=== PATIENT | male | born 1945 | race Two or more races ===

== ENCOUNTER 2017-11-18 22:22 | Inpatient (IN) | payer MEDICAID, MEDICARE ==
[~2017-11-18] VITALS: Ht 162.6 cm; Wt 90.7 kg
[~2017-11-18 22:22] MED LIST: ASPIR 8181 MG GT; ASPIR 8181 MG ORAL; AZACTAM1 GM IVPB; BISACODYL10 M1 RC; CELEXA10 MG GT; COLACE100 MG/10 GT; CRANBERRY450 M4 GT; DUONEB 0.5-3(2.53 ML HHN; FEOSOL325 MG GT; FERROUS SULFAT140 MG GT; FLEET ENEMA133 M1 RC; FLORANEX TABLE1 EAC1 GT; HEPARIN2000 UNIT/ SUBQ; METOCLOPRAM5 MG/1 M1 GT; MILK OF MA400 MG/51 GT; MIRALAX17 GM ORAL; MOM30 ML ORAL; MORPHINE 44 MG/1 ML IV; NEXIUM40 MG GT; PERIDEX 0.12% O16 OZ MT; RANITIDINE HCL150 MG ORAL; ROBITUSSIN DM5 ML GT; TENORMIN50 MG ORAL; TYLENOL650 MG/20. GT; VITAMIN C500 M1 GT; VITAMIN D-40400 UNIT ORAL; ZOCOR40 MG GT; ZYVOX600 MG ORAL; [UNRECOGNIZED DRUG - OTHER] IV; lorazepam IV
[2017-11-18] MEDS ORDERED: Sodium Chloride 500ML 500 ML IV ONE (22:33)
[2017-11-18 22:40] VITALS: BP 115/63
[2017-11-18 23:34] LABS: HEMATOCRIT 39.7 % (42.0-52.0); HEMOGLOBIN 13.6 G/DL (14.2-18.0); MEAN CORPUSCULAR VOLUME 94 FL (80-99); PLATELET COUNT 89 K/UL (150-450); RED CELL DISTRIBUTION WIDTH 12.4 % (11.6-14.8); WHITE BLOOD COUNT 12.1 K/UL (4.8-10.8)
[2017-11-18 23:37] LABS: ANION GAP 7 mmol/L (5-15); BLOOD UREA NITROGEN 64 mg/dL (7-18); CALCIUM 9.8 MG/DL (8.5-10.1); CARBON DIOXIDE 34 MMOL/L (21-32); CHLORIDE 92 MMOL/L (98-107); CREATININE 0.8 MG/DL (0.55-1.30); POTASSIUM 3.2 MMOL/L (3.5-5.1); SODIUM 133 MMOL/L (136-145)
[2017-11-18 23:41] LABS: ALANINE AMINOTRANSFERASE 35 U/L (12-78); ALBUMIN 3.5 G/DL (3.4-5.0); ALBUMIN/GLOBULIN RATIO 0.6 (1.0-2.7); ALKALINE PHOSPHATASE 123 U/L (46-116); ASPARTATE AMINO TRANSFERASE 30 U/L (15-37); BILIRUBIN,TOTAL 0.3 MG/DL (0.2-1.0); INR 0.9 (0.9-1.1)
[2017-11-19] VITALS (7 sets, daily range): BP systolic 98–141; BP diastolic 58–71
[2017-11-19] MEDS ORDERED: FERROUS SU220 MG/53 GT (01:05)
[2017-11-19] MEDS ORDERED: ARTIFICIAL TEAR15 ML BOTH EYES (01:05)
[2017-11-19] MEDS ORDERED: ATORVASTATIN CA40 MG GT (01:05)
[2017-11-19] MEDS ORDERED: ZINC SULFATE220 M1 GT (01:05)
[2017-11-19] MEDS ORDERED: ACETAMINOPHEN325 M1 GT (01:05)
[2017-11-19] MEDS ORDERED: MULTI-VITAMIN-1 EACH GT (01:11)
[2017-11-19] MEDS ORDERED: TRADJENTA5 MG GT (01:11)
[2017-11-19] MEDS ORDERED: ZOFRAN4 M3 GT (01:11)
[2017-11-19] MEDS ORDERED: VITAMIN D400 INTLU GT (01:11)
[2017-11-19] MEDS ORDERED: HIBICLENS118 ML TP (01:11)
[2017-11-19] MEDS ORDERED: ZANTAC150 MG GT (01:11)
[2017-11-19] MEDS ORDERED: METFORMIN HCL500 M1 GT (01:11)
[2017-11-19] MEDS ORDERED: Morphine Sulfate 4mg/ml Inj IVP ONE (03:30)
[2017-11-19] MEDS ORDERED: Sodium Chloride 500ML 500 ML IV ONE (04:15)
--- NOTE | 2017-11-19 05:33 | Emergency Room Report ---
History of Present Illness General Chief Complaint: Malfunctioning Gastric Tube Source: Patient, Medical Record Present Illness HPI 72-year-old male presents to ED for evaluation. Patient sent here for G-tube replacement. Nonfunctioning as per nursing staff. Upon arrival patient showing no signs of distress. No nausea or vomiting no abdominal pain. Patient also has a trach and is on ventilator. No cough. No fevers or chills. No other aggravating relieving factors. Denies any other associated symptoms Allergies: Coded Allergies: PENICILLINS (Unverified Allergy, Unknown, 02/26/16) POLYMYXIN B (Unverified Allergy, Unknown, 02/26/16) VANCOMYCIN (Unverified Allergy, Unknown, 02/26/16) Patient History Past Medical History: DM, HTN, CVA/TIA Past Surgical History: other - Gtube, trach Pertinent Family History: none Social History: Denies: smoking, alcohol use, drug use Immunizations: UTD Reviewed Nursing Documentation: PMH: Agreed, PSxH: Agreed Nursing Documentation-PMH Hx Cardiac Problems: Yes - anemia Hx Hypertension: Yes Hx COPD: Yes - Chronic trach/venitlator Hx Diabetes: Yes Hx Cancer: No Hx Gastrointestinal Problems: Yes - gtube, dysphagia Hx Neurological Problems: Yes - guillain-barre syndrome, quadriplegia Hx Cerebrovascular Accident: Yes - 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 Hx Dysphasia: Yes Review of Systems All Other Systems: negative except mentioned in HPI Physical Exam Vital Signs Date Time Temp Pulse Resp B/P (MAP) Pulse Ox O2 Delivery O2 Flow Rate FiO2 11/18/17 22:23 99.0 85 18 115/63 99 Room Air 99.0 11/18/17 22:49 40 Sp02 EP Interpretation: reviewed, normal General Appearance: no apparent distress, alert, GCS 15, non-toxic Head: normocephalic Eyes: bilateral eye normal inspection, bilateral eye PERRL ENT: normal ENT inspection Neck: tracheotomy Respiratory: chest non-tender, lungs clear, normal breath sounds, speaking full sentences Cardiovascular #1: regular rate, rhythm, no edema Gastrointestinal: normal bowel sounds, non tender, soft, non-distended, no guarding, no rebound, other - Gtube site C/D/I Rectal: deferred Genitourinary: no CVA tenderness Musculoskeletal: normal inspection Neurologic: alert, oriented x3, responsive, motor strength/tone normal, sensory intact, speech normal Psychiatric: normal inspection Skin: normal inspection Lymphatic: normal inspection Medical Decision Making Diagnostic Impression: Primary Impression: Malfunction of gastrostomy tube ER Course Hospital Course 72-year-old male presents to ED for malfunctioning G-tube Differential Diagnosis - cellulitis, abscess, malfunctioning Gtube, sepsis Clinical course Patient placed on stretcher. After initial history of physical exam reveals an elderly male in no acute distress. On exam G-tube site clean/dry/intact. G- tube is surgically placed and cannot be changed at bedside. Patient will require admission I ordered labs, IVFs Labs reviewed-no leukocytosis, hemoglobin/hematocrit stable, electrolytes ok PMD is Dr. Bobo. Multiple attempts made to reach him for admission but unable to reach him Case discussed with Dr. Xiong and he agreed to accept the patient to his service for further care and support Diagnosis - malfunction of Gastrostomy tube Admitted to [facility] in serious condition Labs Test 11/18/17 23:13 White Blood Count 12.1 K/UL (4.8-10.8) Red Blood Count 4.20 M/UL (4.70-6.10) Hemoglobin 13.6 G/DL (14.2-18.0) Hematocrit 39.7 % (42.0-52.0) Mean Corpuscular Volume 94 FL (80-99) Mean Corpuscular Hemoglobin 32.5 PG (27.0-31.0) Mean Corpuscular Hemoglobin Concent 34.4 G/DL (32.0-36.0) Red Cell Distribution Width 12.4 % (11.6-14.8) Platelet Count 89 K/UL (150-450) Mean Platelet Volume 16.3 FL (6.5-10.1) Neutrophils (%) (Auto) % (45.0-75.0) Lymphocytes (%) (Auto) % (20.0-45.0) Monocytes (%) (Auto) % (1.0-10.0) Eosinophils (%) (Auto) % (0.0-3.0) Basophils (%) (Auto) % (0.0-2.0) Prothrombin Time 9.6 SEC (9.30-11.50) Prothromb Time International Ratio 0.9 (0.9-1.1) Activated Partial Thromboplast Time 23 SEC (23-33) Sodium Level 133 MMOL/L (136-145) Potassium Level 3.2 MMOL/L (3.5-5.1) Chloride Level 92 MMOL/L (98-107) Carbon Dioxide Level 34 MMOL/L (21-32) Anion Gap 7 mmol/L (5-15) Blood Urea Nitrogen 64 mg/dL (7-18) Creatinine 0.8 MG/DL (0.55-1.30) Estimat Glomerular Filtration Rate > 60 mL/min (>60) Glucose Level 209 MG/DL (74-106) Calcium Level 9.8 MG/DL (8.5-10.1) Total Bilirubin 0.3 MG/DL (0.2-1.0) Aspartate Amino Transf (AST/SGOT) 30 U/L (15-37) Alanine Aminotransferase (ALT/SGPT) 35 U/L (12-78) Alkaline Phosphatase 123 U/L (46-116) Total Protein 9.2 G/DL (6.4-8.2) Albumin 3.5 G/DL (3.4-5.0) Globulin 5.7 g/dL Albumin/Globulin Ratio 0.6 (1.0-2.7) Last Vital Signs Date Time Temp Pulse Resp B/P (MAP) Pulse Ox O2 Delivery O2 Flow Rate FiO2 11/19/17 05:12 98.4 80 25 102/58 100 Room Air 40 98.4 Status: improved Disposition: ADMITTED INPATIENT Condition: Serious Referrals: SHALINI BOBO (PCP) NELL SIFUENTES M.D. Nov 19, 2017 05:33
[2017-11-19] MEDS: NS w/KCl 20mEq 1,000 ML IV SCH ×2 (11:56→23:57)
[2017-11-19] MEDS: NovoLOG Insulin Flexpen SUBQ SCH ×2 (12:00→17:24)
[2017-11-19] MEDS: Heparin 5000 units/ml inj SUBQ SCH ×2 (12:38→20:37)
--- NOTE | 2017-11-19 13:44 | GI Initial Consult Note ---
Germain,Lexy Des N.P. 11/19/17 1344: History of Present Illness General Date patient seen: Nov 19, 2017 Time patient seen: 13:33 Reason for Hospitalization: Malfunctioning Gastric Tube Referring physician: PENNY WYNN Reason for Consultation: GT MALFUNCTION Present Illness HPI 72-year-old male presents to ED for evaluation. Patient sent here for G-tube replacement. Nonfunctioning as per nursing staff. Upon arrival patient showing no signs of distress. No nausea or vomiting no abdominal pain. Patient also has a trach and is on ventilator. No cough. No fevers or chills. No other aggravating relieving factors. Denies any other associated symptoms. GI consulted for GT malfunction. Patient seen awake, alert and oriented x 4 with daughter at bedside. GT assessed, noted wrapped many times with tape to prevent leaking. Presents today with mild leukocytosis, mild anemia and elevated alkaline phosphatase. Unknown history of colonoscopies. Home Meds Reported Medications Ondansetron* (ZOFRAN*) 4 Mg Tablet, 4 MG GT Q4HR Y for Nausea & Vomiting, TAB 11/19/17 Chlorhexidine Gluconate* (HIBICLENS*) 118 Ml Liquid, 118 ML TP, ML 11/19/17 Linagliptin (TRADJENTA) 5 Mg Tablet, 5 MG GT, TAB 11/19/17 Metformin Hcl* (METFORMIN HCL*) 500 Mg Tablet, 500 MG GT TWICE A DAY, TAB 11/19/17 Vitamin D (Vitamin D3) 400 Unit Tablet, 5000 UNITS GT DAILY, TAB 11/19/17 Ranitidine Hcl* (ZANTAC*) 150 Mg Tablet, 150 MG GT TWICE A DAY, TAB 11/19/17 Multivit-Min/Iron Fum/Folic AC (Vctar-Bnuoyxe-Zmnkxlkm Tablet) 1 Each Tablet, 1 EACH GT, TAB 11/19/17 Ferrous Sulfate (Ferrous Sulfate) 220 Mg/5 Ml Elixir, 220 MG GT, ML 11/19/17 Atorvastatin Calcium* (ATORVASTATIN CALCIUM*) 40 Mg Tablet, 40 MG GT BEDTIME, TAB 11/19/17 Acetaminophen* (ACETAMINOPHEN 325MG TABLET*) 325 Mg Tablet, 650 MG GT DAILY, TAB 11/19/17 Dextran 70/Hypromellose (ARTIFICIAL TEARS EYE DROPS*) 15 Ml Drops, 1 DROP BOTH EYES, #15 ML 0 Refills 11/19/17 Ranitidine Hcl* (ZANTAC*) 150 Mg Tablet, 150 MG ORAL TWICE A DAY, TAB 03/01/16 Polyethylene Glycol* (MIRALAX*) 17 Gm Powd.pack, 17 GM ORAL DAILY Y for Constipation, PACKET 03/01/16 Morphine Sulfate/Pf (MORPHINE 4 MG/ML CARPUJECT) 4 Mg/1 Ml Cartridge, 4 MG IV Q4HR Y for For Pain 03/01/16 Linezolid* (ZYVOX*) 600 Mg Tablet, 600 MG ORAL EVERY 12 HOURS, TAB 03/01/16 [lorazepam] No Conflict Check, 2 MG IV Y for Agitation 03/01/16 Aspirin* (ASPIR 81*) 81 Mg Tablet.dr, 81 MG GT DAILY, TAB 03/01/16 Heparin Sodium,Porcine/Ns/Pf (Heparin) 2,000 Unit/1000 Ml Iv.soln, 5000 UNIT SUBQ Q12HR 03/01/16 Ferrous Sulfate (Feosol) 325 Mg Tablet, 300 MG GT BID, TAB 03/01/16 Dextrose/Sod Chloride (Dextrose 5%-0.45% NaCl IV Soln) 1,000 Ml Bag, 40 ML IV, BAG 03/01/16 Docusate Sodium (Docusate Sodium) 100 Mg/10 Ml Udc, 100 MG GT TWICE A DAY, EA 03/01/16 Aztreonam (AZACTAM) 1 Gm Vial, 1 GM IVPB Q8HR, VIAL 03/01/16 Na Phos,M-B/Na Phos,Di-Ba (Fleet Enema) 133 Ml Enema, 118 ML RC Y for Constipation, EA 02/26/16 Guaifenesin/Dextromethorphan (Guaifenesin Dm Syrup) 5 Ml Syr, 10 ML GT Y for For Cough, SYR 02/26/16 Citalopram Hydrobromide (CELEXA) 10 Mg Tablet, 10 MG GT DAILY, TAB 02/26/16 Bisacodyl (BISACODYL) 10 Mg Supp.rect, 10 MG RC Y for Constipation, SUPP 02/26/16 Acetaminophen (Acetaminophen) 650 Mg/20.3 Ml Soln, 650 MG GT EVERY 4 HOURS Y for For Pain, ML 0 Refills 02/26/16 Cholecalciferol (Vitamin D3) (VITAMIN D-400*) 400 Unit Tablet, 1000 UNITS ORAL DAILY, #10 TAB 0 Refills 02/26/16 Chlorhexidine Gluconate (Chlorhexidine Gluconate) 16 Oz Soln, 15 ML MT TWICE A DAY, ML 02/26/16 Ascorbic Acid* (VITAMIN C*) 500 Mg Tablet, 500 MG GT DAILY, #30 TAB 0 Refills 02/26/16 Magnesium Hydroxide (Milk of Magnesia) 30 Ml Susp, 30 ML ORAL DAILY Y for Constipation 02/26/16 Cranberry Fruit Concentrate (CRANBERRY) 450 Mg Capsule, 450 MG GT, CAP 02/25/16 Simvastatin (ZOCOR) 40 Mg Tablet, 40 MG GT BEDTIME, TAB 02/25/16 Metoclopramide Hcl (METOCLOPRAMIDE HCL*) 5 Mg/1 Ml Vial, 5 MG GT, VIAL 02/25/16 Acidophilus/Bulgaricus (FLORANEX TABLET) 1 Each Tablet, 1 EACH GT, TAB 02/25/16 Esomeprazole Magnesium (NEXIUM) 40 Mg Capsule.dr, 40 MG GT DAILY, CAP 02/25/16 Ferrous Sulfate (FERROUS SULFATE) 140 Mg Tablet.er, 50 MG GT, TAB 02/25/16 Ipratropium/Albuterol Sulfate (DuoNeb 0.5-3(2.5)mg/3ml) 3 Ml Ampul.neb, 3 ML HHN , EA 02/25/16 Atenolol* (TENORMIN*) 50 Mg Tablet, 50 MG ORAL BID, TAB 02/25/16 Discontinued Reported Medications Zinc Sulfate (ZINC SULFATE*) 220 Mg Capsule, 220 MG GT DAILY, CAP 0 Refills 11/19/17 Med list reviewed/reconciled: Yes Allergies: Coded Allergies: PENICILLINS (Unverified Allergy, Unknown, 02/26/16) POLYMYXIN B (Unverified Allergy, Unknown, 02/26/16) VANCOMYCIN (Unverified Allergy, Unknown, 02/26/16) Patient History Limited by: medical condition History Provided By: Family Member, Medical Record PMH Narrative Past Medical History: DM, HTN, CVA/TIA Past Surgical History: other - Gtube, trach Pertinent Family History: none Social History: Denies: smoking, alcohol use, drug use Immunizations: UTD Reviewed Nursing Documentation: PMH: Agreed, PSxH: Agreed Nursing Documentation-PMH Hx Cardiac Problems: Yes - anemia Hx Hypertension: Yes Hx COPD: Yes - Chronic trach/venitlator Hx Diabetes: Yes Hx Cancer: No Hx Gastrointestinal Problems: Yes - gtube, dysphagia 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, quadriplegia Hx Cerebrovascular Accident: Yes - quadriplegia Hx Guillian-[place] Syndrome: Yes Hx Speech Problem: Yes - VENT DEPENDENT Review of Systems All Other Systems: negative except mentioned in HPI Physical Exam Vital Signs Date Time Temp Pulse Resp B/P (MAP) Pulse Ox O2 Delivery O2 Flow Rate FiO2 11/18/17 22:23 99.0 85 18 115/63 99 Room Air 99.0 11/18/17 22:49 40 Sp02 EP Interpretation: reviewed, normal Labs Laboratory Tests Test 11/18/17 23:13 11/19/17 11:10 White Blood Count 12.1 K/UL (4.8-10.8) H Red Blood Count 4.20 M/UL (4.70-6.10) L Hemoglobin 13.6 G/DL (14.2-18.0) L Hematocrit 39.7 % (42.0-52.0) L Mean Corpuscular Volume 94 FL (80-99) Mean Corpuscular Hemoglobin 32.5 PG (27.0-31.0) H Mean Corpuscular Hemoglobin Concent 34.4 G/DL (32.0-36.0) Red Cell Distribution Width 12.4 % (11.6-14.8) Platelet Count 89 K/UL (150-450) L Mean Platelet Volume 16.3 FL (6.5-10.1) H Neutrophils (%) (Auto) % (45.0-75.0) Lymphocytes (%) (Auto) % (20.0-45.0) Monocytes (%) (Auto) % (1.0-10.0) Eosinophils (%) (Auto) % (0.0-3.0) Basophils (%) (Auto) % (0.0-2.0) Prothrombin Time 9.6 SEC (9.30-11.50) Prothromb Time International Ratio 0.9 (0.9-1.1) Activated Partial Thromboplast Time 23 SEC (23-33) Sodium Level 133 MMOL/L (136-145) L Potassium Level 3.2 MMOL/L (3.5-5.1) L Chloride Level 92 MMOL/L (98-107) L Carbon Dioxide Level 34 MMOL/L (21-32) H Anion Gap 7 mmol/L (5-15) Blood Urea Nitrogen 64 mg/dL (7-18) H Creatinine 0.8 MG/DL (0.55-1.30) Estimat Glomerular Filtration Rate > 60 mL/min (>60) Glucose Level 209 MG/DL (74-106) H Calcium Level 9.8 MG/DL (8.5-10.1) Total Bilirubin 0.3 MG/DL (0.2-1.0) Aspartate Amino Transf (AST/SGOT) 30 U/L (15-37) Alanine Aminotransferase (ALT/SGPT) 35 U/L (12-78) Alkaline Phosphatase 123 U/L (46-116) H Total Protein 9.2 G/DL (6.4-8.2) H Albumin 3.5 G/DL (3.4-5.0) Globulin 5.7 g/dL Albumin/Globulin Ratio 0.6 (1.0-2.7) L Magnesium Level 2.1 MG/DL (1.8-2.4) General Appearance: well appearing, no apparent distress, alert Head: normocephalic EENT: PERRL/EOMI, normal ENT inspection Neck: supple, tracheotomy Respiratory: normal breath sounds, no respiratory distress, other - mech vent Cardiovascular: normal rate Gastrointestinal: normal inspection, non tender, soft, normal bowel sounds, non -distended, gt - replaced Rectal: deferred Genitourinary: deferred Musculoskeletal: normal inspection, back normal Neurologic: normal inspection, alert, oriented x3, responsive Psychiatric: normal inspection, judgement/insight normal, memory normal Skin: normal inspection, normal color, no rash, warm/dry, palpation normal, well hydrated Lymphatic: normal inspection, no adenopathy Current Medications Current Medications Medications (Trade) Dose Ordered Sig/Fransisco Route PRN Reason Start Time Stop Time Status Last Admin Dose Admin Dextrose (Dextrose 50%) STAT PRN IV Hypoglycemia 11/19/17 08:45 12/19/17 08:44 Heparin Sodium (Porcine) (Heparin 5000 units/ml) 5,000 units EVERY 12 HOURS SUBQ 11/19/17 12:00 12/19/17 11:59 11/19/17 12:38 Insulin Aspart (NovoLOG) EVERY 6 HOURS SUBQ 11/19/17 12:00 12/19/17 11:59 Sodium Chloride 1,000 ml @ 75 mls/hr [id number] IV 11/19/17 10:00 12/19/17 09:59 11/19/17 11:56 GI: Plan Problems: (1) Malfunction of gastrostomy tube (2) Feeding by G-tube (3) Abdominal pain (4) Anemia Plan GT 20fr replaced by bedside >> imaging confirmation ordered, ok to use after. GTFs per RD GT site care daily/prn anemia work up OB stool r/o GI bleed monitor H&H, prn transfusions bowel regime ppi fu labs Discussed with Dr. Martell. Thank you for this patient referral, we will follow. ISAAC MARTELL 11/22/17 0915: History of Present Illness General Reason for Hospitalization: Malfunctioning Gastric Tube Present Illness Home Meds Reported Medications Ondansetron* (ZOFRAN*) 4 Mg Tablet, 4 MG GT Q4HR Y for Nausea & Vomiting, TAB 11/19/17 Chlorhexidine Gluconate* (HIBICLENS*) 118 Ml Liquid, 118 ML TP, ML 11/19/17 Linagliptin (TRADJENTA) 5 Mg Tablet, 5 MG GT, TAB 11/19/17 Metformin Hcl* (METFORMIN HCL*) 500 Mg Tablet, 500 MG GT TWICE A DAY, TAB 11/19/17 Vitamin D (Vitamin D3) 400 Unit Tablet, 5000 UNITS GT DAILY, TAB 11/19/17 Ranitidine Hcl* (ZANTAC*) 150 Mg Tablet, 150 MG GT TWICE A DAY, TAB 11/19/17 Multivit-Min/Iron Fum/Folic AC (Mufpm-Gxuzpjg-Vsvtsssy Tablet) 1 Each Tablet, 1 EACH GT, TAB 11/19/17 Ferrous Sulfate (Ferrous Sulfate) 220 Mg/5 Ml Elixir, 220 MG GT, ML 11/19/17 Atorvastatin Calcium* (ATORVASTATIN CALCIUM*) 40 Mg Tablet, 40 MG GT BEDTIME, TAB 11/19/17 Acetaminophen* (ACETAMINOPHEN 325MG TABLET*) 325 Mg Tablet, 650 MG GT DAILY, TAB 11/19/17 Dextran 70/Hypromellose (ARTIFICIAL TEARS EYE DROPS*) 15 Ml Drops, 1 DROP BOTH EYES, #15 ML 0 Refills 2/16/18 Ranitidine Hcl* (ZANTAC*) 150 Mg Tablet, 150 MG ORAL TWICE A DAY, TAB 03/01/16 Polyethylene Glycol* (MIRALAX*) 17 Gm Powd.pack, 17 GM ORAL DAILY Y for Constipation, PACKET 03/01/16 Morphine Sulfate/Pf (MORPHINE 4 MG/ML CARPUJECT) 4 Mg/1 Ml Cartridge, 4 MG IV Q4HR Y for For Pain 03/01/16 Linezolid* (ZYVOX*) 600 Mg Tablet, 600 MG ORAL EVERY 12 HOURS, TAB 03/01/16 [lorazepam] No Conflict Check, 2 MG IV Y for Agitation 03/01/16 Aspirin* (ASPIR 81*) 81 Mg Tablet.dr, 81 MG GT DAILY, TAB 03/01/16 Heparin Sodium,Porcine/Ns/Pf (Heparin) 2,000 Unit/1000 Ml Iv.soln, 5000 UNIT SUBQ Q12HR 03/01/16 Ferrous Sulfate (Feosol) 325 Mg Tablet, 300 MG GT BID, TAB 03/01/16 Dextrose/Sod Chloride (Dextrose 5%-0.45% NaCl IV Soln) 1,000 Ml Bag, 40 ML IV, BAG 03/01/16 Docusate Sodium (Docusate Sodium) 100 Mg/10 Ml Udc, 100 MG GT TWICE A DAY, EA 03/01/16 Aztreonam (AZACTAM) 1 Gm Vial, 1 GM IVPB Q8HR, VIAL 03/01/16 Na Phos,M-B/Na Phos,Di-Ba (Fleet Enema) 133 Ml Enema, 118 ML RC Y for Constipation, EA 02/26/16 Guaifenesin/Dextromethorphan (Guaifenesin Dm Syrup) 5 Ml Syr, 10 ML GT Y for For Cough, SYR 02/26/16 Citalopram Hydrobromide (CELEXA) 10 Mg Tablet, 10 MG GT DAILY, TAB 02/26/16 Bisacodyl (BISACODYL) 10 Mg Supp.rect, 10 MG RC Y for Constipation, SUPP 02/26/16 Acetaminophen (Acetaminophen) 650 Mg/20.3 Ml Soln, 650 MG GT EVERY 4 HOURS Y for For Pain, ML 0 Refills 02/26/16 Cholecalciferol (Vitamin D3) (VITAMIN D-400*) 400 Unit Tablet, 1000 UNITS ORAL DAILY, #10 TAB 0 Refills 02/26/16 Chlorhexidine Gluconate (Chlorhexidine Gluconate) 16 Oz Soln, 15 ML MT TWICE A DAY, ML 02/26/16 Ascorbic Acid* (VITAMIN C*) 500 Mg Tablet, 500 MG GT DAILY, #30 TAB 0 Refills 02/26/16 Magnesium Hydroxide (Milk of Magnesia) 30 Ml Susp, 30 ML ORAL DAILY Y for Constipation 02/26/16 Cranberry Fruit Concentrate (CRANBERRY) 450 Mg Capsule, 450 MG GT, CAP 02/25/16 Simvastatin (ZOCOR) 40 Mg Tablet, 40 MG GT BEDTIME, TAB 02/25/16 Metoclopramide Hcl (METOCLOPRAMIDE HCL*) 5 Mg/1 Ml Vial, 5 MG GT, VIAL 02/25/16 Acidophilus/Bulgaricus (FLORANEX TABLET) 1 Each Tablet, 1 EACH GT, TAB 02/25/16 Esomeprazole Magnesium (NEXIUM) 40 Mg Capsule.dr, 40 MG GT DAILY, CAP 02/25/16 Ferrous Sulfate (FERROUS SULFATE) 140 Mg Tablet.er, 50 MG GT, TAB 02/25/16 Ipratropium/Albuterol Sulfate (DuoNeb 0.5-3(2.5)mg/3ml) 3 Ml Ampul.neb, 3 ML HHN , EA 02/25/16 Atenolol* (TENORMIN*) 50 Mg Tablet, 50 MG ORAL BID, TAB 02/25/16 Discontinued Reported Medications Zinc Sulfate (ZINC SULFATE*) 220 Mg Capsule, 220 MG GT DAILY, CAP 0 Refills 11/19/17 Allergies: Coded Allergies: PENICILLINS (Unverified Allergy, Unknown, 02/26/16) POLYMYXIN B (Unverified Allergy, Unknown, 02/26/16) VANCOMYCIN (Unverified Allergy, Unknown, 02/26/16) GI: Plan Plan The patient was seen and examined at bedside and all new and available data was reviewed in the patients chart. I agree with the above findings, impression and plan. (Patient seen earlier today. Signature stamp does not reflect patient encounter time.). - MD Jessa Veliz,[facility] Nov 19, 2017 13:44 ISAAC MARTELL Nov 22, 2017 09:15
--- NOTE | 2017-11-19 14:07 | Cardiology Report ---
APPROVED REPORT EKG Measurement Heart [id number] Normal sinus rhythm Normal ECG
--- NOTE | 2017-11-19 14:19 | Diagnostic Imaging Report ---
Indication: Gastrostomy replacement Technique: Supine view of the abdomen after injection of water-soluble contrast into gastrostomy Comparison: 04/02/2016 conventional abdomen radiograph Findings: Contrast opacifies the stomach. No contrast extravasation is demonstrated. Considerable gas is seen within small bowel diffusely. Impression: Satisfactory position of gastrostomy tube Nonspecific prominent gas-filled small bowel loops
--- NOTE | 2017-11-19 14:56 | History & Physical ---
History and Physical History & Physicial job # [id number] Royal Xiong MD Nov 19, 2017 14:56
[2017-11-19] MEDS ORDERED: Norco 5mg/325mg tab ORAL PRN (16:45)
--- NOTE | 2017-11-19 17:48 | Consultation ---
History of Present Illness General Date patient seen: Nov 19, 2017 Time patient seen: 16:00 Chief Complaint: Malfunctioning Gastric Tube Referring physician: PENNY WYNN Reason for Consultation: GT MALFUNCTION Present Illness HPI 72-year-old male with PMH of VDRF, trach, dysphagia, G tube, GBS, HTN anemia, presented to ED for evaluation. Patient was sent for G-tube replacement, nonfunctioning as per nursing staff. Upon evaluation, no signs of distress. no nausea or vomiting, no abdominal pain. No fevers No cough. VSS WBC-12.1 K-3.2 BUN 64 and creat-0.8 mild anemia glucose-209 patient was admitted fro further management Allergies: Coded Allergies: PENICILLINS (Unverified Allergy, Unknown, 02/26/16) POLYMYXIN B (Unverified Allergy, Unknown, 02/26/16) VANCOMYCIN (Unverified Allergy, Unknown, 02/26/16) Medication History Scheduled Acetaminophen* (Acetaminophen 325MG Tablet*), 650 MG GT DAILY, (Reported) Ascorbic Acid* (Vitamin C*), 500 MG GT DAILY, (Reported) Aspirin* (Aspir 81*), 81 MG GT DAILY, (Reported) Atenolol* (Tenormin*), 50 MG ORAL BID, (Reported) Atorvastatin Calcium* (Atorvastatin Calcium*), 40 MG GT BEDTIME, (Reported) Aztreonam (Azactam), 1 GM IVPB Q8HR, (Reported) Chlorhexidine Gluconate (Chlorhexidine Gluconate), 15 ML MT TWICE A DAY, ( Reported) Cholecalciferol (Vitamin D3) (Vitamin D-400*), 1,000 UNITS ORAL DAILY, (Reported ) Citalopram Hydrobromide (Celexa), 10 MG GT DAILY, (Reported) Docusate Sodium (Docusate Sodium), 100 MG GT TWICE A DAY, (Reported) Esomeprazole Magnesium (Nexium), 40 MG GT DAILY, (Reported) Ferrous Sulfate (Feosol), 300 MG GT BID, (Reported) Heparin Sodium,Porcine/Ns/Pf (Heparin), 5,000 UNIT SUBQ Q12HR, (Reported) Linezolid* (Zyvox*), 600 MG ORAL EVERY 12 HOURS, (Reported) Metformin Hcl* (Metformin Hcl*), 500 MG GT TWICE A DAY, (Reported) Ranitidine Hcl* (Zantac*), 150 MG ORAL TWICE A DAY, (Reported) Ranitidine Hcl* (Zantac*), 150 MG GT TWICE A DAY, (Reported) Simvastatin (Zocor), 40 MG GT BEDTIME, (Reported) Vitamin D (Vitamin D3), 5,000 UNITS GT DAILY, (Reported) Scheduled PRN Acetaminophen (Acetaminophen), 650 MG GT EVERY 4 HOURS PRN for For Pain, ( Reported) Bisacodyl (Bisacodyl), 10 MG RC for Constipation, (Reported) Guaifenesin/Dextromethorphan (Guaifenesin Dm Syrup), 10 ML GT for For Cough, ( Reported) Magnesium Hydroxide (Milk of Magnesia), 30 ML ORAL DAILY PRN for Constipation, ( Reported) Morphine Sulfate/Pf (Morphine 4 Mg/Ml Carpuject), 4 MG IV Q4HR PRN for For Pain, (Reported) Na Phos,M-B/Na Phos,Di-Ba (Fleet Enema), 118 ML RC for Constipation, (Reported) Ondansetron* (Zofran*), 4 MG GT Q4HR PRN for Nausea & Vomiting, (Reported) Polyethylene Glycol* (Miralax*), 17 GM ORAL DAILY PRN for Constipation, ( Reported) [lorazepam], 2 MG IV for Agitation, (Reported) Miscellaneous Medications Acidophilus/Bulgaricus (Floranex Tablet), 1 EACH GT, (Reported) Chlorhexidine Gluconate* (Hibiclens*), 118 ML TP, (Reported) Cranberry Fruit Concentrate (Cranberry), 450 MG GT, (Reported) Dextran 70/Hypromellose (Artificial Tears Eye Drops*), 1 DROP BOTH EYES, ( Reported) Dextrose/Sod Chloride (Dextrose 5%-0.45% NaCl IV Soln), 40 ML IV, (Reported) Ferrous Sulfate (Ferrous Sulfate), 50 MG GT, (Reported) Ferrous Sulfate (Ferrous Sulfate), 220 MG GT, (Reported) Ipratropium/Albuterol Sulfate (DuoNeb 0.5-3(2.5)mg/3ml), 3 ML HHN, (Reported) Linagliptin (Tradjenta), 5 MG GT, (Reported) Metoclopramide Hcl (Metoclopramide Hcl*), 5 MG GT, (Reported) Multivit-Min/Iron Fum/Folic AC (Jmvrb-Sruriuz-Rczpuosx Tablet), 1 EACH GT, ( Reported) Discontinued Medications Zinc Sulfate (Zinc Sulfate*), 220 MG GT DAILY, (Reported) Discontinued Reason: discontinued med Patient History Healthcare decision maker Shawanda Brooke daughter Resuscitation status Full Code Advanced Directive on File No Review of Systems ROS Narrative unable to obtain, patient is on vent Physical Exam General Appearance: other - on Vent AC 500-14-40% HEENT: normocephalic, atraumatic, anicteric, status post trach - Portex#7, secretons moderate, white, thick Neck: non-tender Respiratory/Chest: lungs clear, no respiratory distress Cardiovascular/Chest: normal rate, regular rhythm - SR on tele Abdomen: normal bowel sounds, non tender, soft, other - G tube, colostomy Genitourinary/Rectal: suprapubic catheter Neurologic: abnormal gait, alert, other - quadriplegia Musculoskeletal: atrophy - BLE Last 24 Hour Vital Signs Date Time Temp Pulse Resp B/P (MAP) Pulse Ox O2 Delivery O2 Flow Rate FiO2 11/19/17 16:03 40 11/19/17 15:29 66 14 40 11/19/17 12:52 65 14 40 11/19/17 12:00 69 11/19/17 12:00 40 11/19/17 12:00 97.6 78 16 100/70 93 Mechanical Ventilator 40 11/19/17 11:29 68 14 40 11/19/17 09:29 77 18 40 11/19/17 09:12 97.2 91 15 141/71 97 Mechanical Ventilator 11/19/17 07:39 98.4 72 20 99/58 100 Room Air 40 98.4 11/19/17 07:16 98.4 72 20 99/58 100 Room Air 40 98.4 11/19/17 06:45 69 31 40 11/19/17 05:12 98.4 80 25 102/58 100 Room Air 40 98.4 11/19/17 05:05 73 23 40 11/19/17 03:55 98.4 11/19/17 03:25 98.2 11/19/17 03:20 82 18 40 11/19/17 02:58 98.2 82 19 98/65 100 Room Air 40 98.2 11/19/17 01:34 80 20 40 11/18/17 23:27 40 11/18/17 22:52 84 29 Room Air 40 11/18/17 22:49 84 29 40 11/18/17 22:40 99.0 83 18 115/63 99 Room Air 99.0 11/18/17 22:23 99.0 85 18 115/63 99 Room Air 99.0 Intake and Output 11/18/17 11/19/17 19:00 07:00 Intake Total 0 ml Balance 0 ml Intake Oral 0 ml Laboratory Tests Test 11/18/17 23:13 11/19/17 11:10 White Blood Count 12.1 K/UL (4.8-10.8) H Red Blood Count 4.20 M/UL (4.70-6.10) L Hemoglobin 13.6 G/DL (14.2-18.0) L Hematocrit 39.7 % (42.0-52.0) L Mean Corpuscular Volume 94 FL (80-99) Mean Corpuscular Hemoglobin 32.5 PG (27.0-31.0) H Mean Corpuscular Hemoglobin Concent 34.4 G/DL (32.0-36.0) Red Cell Distribution Width 12.4 % (11.6-14.8) Platelet Count 89 K/UL (150-450) L Mean Platelet Volume 16.3 FL (6.5-10.1) H Neutrophils (%) (Auto) % (45.0-75.0) Lymphocytes (%) (Auto) % (20.0-45.0) Monocytes (%) (Auto) % (1.0-10.0) Eosinophils (%) (Auto) % (0.0-3.0) Basophils (%) (Auto) % (0.0-2.0) Prothrombin Time 9.6 SEC (9.30-11.50) Prothromb Time International Ratio 0.9 (0.9-1.1) Activated Partial Thromboplast Time 23 SEC (23-33) Sodium Level 133 MMOL/L (136-145) L Potassium Level 3.2 MMOL/L (3.5-5.1) L Chloride Level 92 MMOL/L (98-107) L Carbon Dioxide Level 34 MMOL/L (21-32) H Anion Gap 7 mmol/L (5-15) Blood Urea Nitrogen 64 mg/dL (7-18) H Creatinine 0.8 MG/DL (0.55-1.30) Estimat Glomerular Filtration Rate > 60 mL/min (>60) Glucose Level 209 MG/DL (74-106) H Calcium Level 9.8 MG/DL (8.5-10.1) Total Bilirubin 0.3 MG/DL (0.2-1.0) Aspartate Amino Transf (AST/SGOT) 30 U/L (15-37) Alanine Aminotransferase (ALT/SGPT) 35 U/L (12-78) Alkaline Phosphatase 123 U/L (46-116) H Total Protein 9.2 G/DL (6.4-8.2) H Albumin 3.5 G/DL (3.4-5.0) Globulin 5.7 g/dL Albumin/Globulin Ratio 0.6 (1.0-2.7) L Magnesium Level 2.1 MG/DL (1.8-2.4) Height (Feet): 5 Height (Inches): 4.00 Weight (Pounds): 200 Medications Current Medications Medications (Trade) Dose Ordered Sig/Fransisco Route PRN Reason Start Time Stop Time Status Last Admin Dose Admin Acetaminophen/ Hydrocodone Bitart ([place] 5/325) 1 tab Q6H PRN ORAL PAIN 4-10 11/19/17 16:45 11/26/17 16:44 Dextrose (Dextrose 50%) STAT PRN IV Hypoglycemia 11/19/17 08:45 12/19/17 08:44 Heparin Sodium (Porcine) (Heparin 5000 units/ml) 5,000 units EVERY 12 HOURS SUBQ 11/19/17 12:00 12/19/17 11:59 11/19/17 12:38 Insulin Aspart (NovoLOG) EVERY 6 HOURS SUBQ 11/19/17 12:00 12/19/17 11:59 11/19/17 17:24 Sodium Chloride 1,000 ml @ 75 mls/hr [id number] IV 11/19/17 10:00 12/19/17 09:59 11/19/17 11:56 Assessment/Plan Assessment/Plan ASSESSMENT G tube malfunctioning s/p replacement of G tube at the bedside VDRF/trach dysphagia, G tube dehydration leukocytosis DM Hx of GBS anemia hypokalemia HTN PLAN OF CARE [facility] s/p GT replacement by GI KUB confirmed proper placement strict aspiration precautions GT feeding started monitor tolerance site care colostomy care, monitor output Vent/trach care pulmonary toilet prn baseline ABG in am and titrate settings as needed CXR in am BS management with SS of insulin IVF with K, monitor renal parameters, correct lytes as needed anemia w/up as ordered by GI DVT GI prophayxlis bowel regimen pain management swallow eval monitor BP, currently normotensive case discussed and evaluated by supervising physician Judah (Rimacammy),Bria BURCH Nov 19, 2017 17:48
[2017-11-19] MEDS: Norco 5mg/325mg tab GT PRN (20:09)
--- NOTE | 2017-11-19 21:00 | History and Physical Report ---
DATE OF ADMISSION: 11/18/2017 CHIEF COMPLAINT: G-tube dislodged and malfunctioning. HISTORY OF PRESENT ILLNESS: This is a 72 years old gentleman with past medical history significant for history of CVA with quadriplegia, chronic vent dependent, history of Guillain-[place] syndrome, pressure ulcer on the left buttock, as well as pressure ulcer in the sacral region, and history of urinary tract infection and urine has , status post suprapubic catheter placement, who was presented to the hospital from [facility] due to the G-tube malfunctioning and dislodged and required for G-tube replacement. The patient denies any nausea, vomiting, abdominal pain. No fevers, chills. Shortly after initial evaluation in the emergency room, was unable to replace the G-tube and subsequently the patient was admitted to the hospital for G-tube replacement by seed potato cutter. 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 MEDICATIONS: Medications at the nursing facility is significant for acetaminophen, acidophilus probiotic, ascorbic acid, aspirin, atenolol, atorvastatin, bisacodyl, chlorhexidine, vitamin D, Celexa, cranberry tablets, docusate, Nexium, iron sulfate, Tradjenta, DuoNeb, metformin, and milk of magnesia. ALLERGIES: To penicillin, polymyxin B, and vancomycin. SOCIAL HISTORY: No smoking, alcohol, or drugs at this time. group home resident. FAMILY HISTORY: Noncontributory. REVIEW OF SYSTEMS: Mostly as above, very limited, the patient is nonverbal, however, he understood what he has been tells. Denies any fever or chills. Denies any nausea or vomiting. Denies any loss of consciousness. PHYSICAL EXAMINATION: VITAL SIGNS: On admission from the ER, temperature 99, pulse of 85, respiration 18, and blood pressure 115/63. GENERAL: The patient is awake, responsive. Occasional talking. HEAD AND NECK: Pupils are equal and reactive to light. Anicteric. NECK: Supple. Tracheostomy site is intact. LUNGS: Good air entry. No wheezing or rales. HEART: S1 and S2. Regular rhythm. No murmur or gallop. ABDOMEN: Soft, nondistended. Mildly obese. Midline surgical scar was noted, well healed. Colostomy bag on the right side. Suprapubic catheter in the suprapubic area. PEG site was intact on the left side of abdomen, mid left. RECTAL: Deferred. GENITALIA: Normal male genitalia. EXTREMITIES: No cyanosis, clubbing, or edema. Muscle atrophy was noted in both upper as well as lower extremity. NEUROLOGIC: Cranial nerves II through XII are grossly intact. The patient is quadriplegic with no motor activity upper as well as lower extremity, and the patient contracted upper extremity. LABORATORY AND DIAGNOSTIC DATA: Laboratory on admission, WBC of 12, hemoglobin 13, hematocrit 39, and platelets is 89. Sodium 133, potassium 3.2, chloride 92, bicarbonate 34, BUN 64, creatinine 0.8, and glucose is 209. AST of 30, ALT of 35, and alkaline phosphatase was 123. PT of 9.6, INR 0.9, and PTT of 23. The patient had an x-ray of the abdomen done, satisfactory position of the gastrostomy tube, nonspecific prominent gas filled in the small bowel loops. ASSESSMENT: 1. Gastrostomy tube malfunctioning and dislodged. 2. Diabetes type 2. 3. Ventilator-dependent respiratory failure. 4. Status post tracheostomy. 5. Status post colostomy. 6. Dysphagia, status post percutaneous endoscopic gastrostomy. 7. Dyslipidemia. 8. Quadriplegia. 9. Guillain-[place]. PLAN: Admit the patient to [facility]. We discussed already with Dr. Jackson, who has seen the patient and replaced the G-tube. We will monitor laboratory in the morning. The patient is thrombocytopenic. Follow up with the laboratory in the morning. DVT prophylaxis. SCD and heparin subcutaneously. We will resume G-tube feeding as well as prison medication. If the patient's status improved and was able to tolerate, G-tube was functional, consider discharge back to the nursing facility. Royal Xiong M.D. DR: CHANA JOB#: [id number] CC:
[2017-11-20] VITALS: BP 105/65
[2017-11-20] MEDS: Norco 5mg/325mg tab GT PRN ×3 (03:15→22:23)
[2017-11-20 03:59] LABS: HEMATOCRIT 33.5 % (42.0-52.0); HEMOGLOBIN 11.9 G/DL (14.2-18.0); MEAN CORPUSCULAR VOLUME 94 FL (80-99); PLATELET COUNT 97 K/UL (150-450); RED BLOOD COUNT 3.56 M/UL (4.70-6.10); RED CELL DISTRIBUTION WIDTH 12.7 % (11.6-14.8); WHITE BLOOD COUNT 9.9 K/UL (4.8-10.8)
[2017-11-20 04:00] VITALS: BP 103/64
[2017-11-20 04:26] LABS: ALANINE AMINOTRANSFERASE 38 U/L (12-78); ALBUMIN 3.1 G/DL (3.4-5.0); ALBUMIN/GLOBULIN RATIO 0.7 (1.0-2.7); ALKALINE PHOSPHATASE 74 U/L (46-116); ANION GAP 7 mmol/L (5-15); ASPARTATE AMINO TRANSFERASE 24 U/L (15-37); BILIRUBIN,TOTAL 0.3 MG/DL (0.2-1.0); BLOOD UREA NITROGEN 24 mg/dL (7-18); CALCIUM 8.7 MG/DL (8.5-10.1); CARBON DIOXIDE 31 MMOL/L (21-32); CHLORIDE 104 MMOL/L (98-107); CREATININE 0.5 MG/DL (0.55-1.30); FERRITIN 345 NG/ML (8-388); PHOSPHORUS 2.4 MG/DL (2.5-4.9); POTASSIUM 3.2 MMOL/L (3.5-5.1); SODIUM 142 MMOL/L (136-145)
[2017-11-20 05:26] LABS: % IRON SATURATION 18 % (15-50); IRON 53 ug/dL (50-175); TOTAL IRON BINDING CAPACITY 292 ug/dL (250-450)
[2017-11-20] MEDS: NovoLOG Insulin Flexpen SUBQ SCH ×4 (06:11→17:55)
[2017-11-20 08:00] VITALS: BP 99/66
[2017-11-20] MEDS ORDERED: Acetaminophen 650mg/20.3ml GT PRN (09:00)
[2017-11-20] MEDS: Docusate 100mg/10ml Liq GT SCH ×2 (09:31→17:53)
[2017-11-20] MEDS: Aspirin Baby 81mg GT SCH (09:31)
[2017-11-20] MEDS: Ascorbic Acid 500mg tab GT SCH (09:32)
[2017-11-20] MEDS: Acetaminophen 650mg/20.3ml GT SCH (09:33)
[2017-11-20] MEDS: metFORMIN 500mg tab GT SCH ×2 (09:34→17:53)
[2017-11-20] MEDS: Heparin 5000 units/ml inj SUBQ SCH ×2 (09:35→20:56)
--- NOTE | 2017-11-20 11:33 | General Progress Note ---
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 ICD Codes: G61.0 - Guillain-[place] syndrome SNOMED: 11894360, 272098331 (5) Acute and chronic respiratory failure ([id number]) ICD Codes: J96.20 - Acute and chronic respiratory failure, unspecified whether with hypoxia or hypercapnia SNOMED: 18247953, 97602180 Assessment/Plan GTF, increase as tolerated fu labs ppi daily Subjective ROS Limited/Unobtainable: No Allergies: Coded Allergies: PENICILLINS (Unverified Allergy, Unknown, 02/26/16) POLYMYXIN B (Unverified Allergy, Unknown, 02/26/16) VANCOMYCIN (Unverified Allergy, Unknown, 02/26/16) Objective Last 24 Hour Vital Signs Date Time Temp Pulse Resp B/P (MAP) Pulse Ox O2 Delivery O2 Flow Rate FiO2 11/20/17 11:17 69 16 28 11/20/17 08:48 74 17 28 11/20/17 08:09 28 11/20/17 08:00 28 11/20/17 08:00 77 11/20/17 08:00 97.8 75 18 99/66 100 Mechanical Ventilator 28 11/20/17 07:37 77 19 40 11/20/17 05:12 74 22 40 11/20/17 04:00 40 11/20/17 04:00 97.7 75 15 103/64 95 Mechanical Ventilator 40 11/20/17 04:00 76 11/20/17 03:06 72 16 40 11/20/17 01:02 76 16 40 11/20/17 00:00 66 11/20/17 00:00 40 11/20/17 00:00 97.7 70 15 105/65 95 Mechanical Ventilator 40 11/19/17 23:04 69 14 40 11/19/17 21:02 71 18 40 11/19/17 20:00 77 11/19/17 20:00 40 11/19/17 20:00 97.9 75 15 105/67 95 Mechanical Ventilator 40 11/19/17 19:23 78 20 40 11/19/17 18:07 70 15 40 11/19/17 16:03 40 11/19/17 16:00 89 11/19/17 16:00 97.3 87 15 136/60 95 Mechanical Ventilator 40 11/19/17 15:29 66 14 40 11/19/17 12:52 65 14 40 11/19/17 12:00 69 11/19/17 12:00 40 11/19/17 12:00 97.6 78 16 100/70 93 Mechanical Ventilator 40 Intake and Output 11/19/17 11/20/17 19:00 07:00 Intake Total 75 ml 995 ml Output Total 1200 ml 1500 ml Balance -1125 ml -505 ml Intake Oral 0 ml IV Total 75 ml 825 ml Tube Feeding 170 ml Output Urine Total 1200 ml 950 ml Stool Total 550 ml # Bowel Movements 3 3 Laboratory Tests 11/20/17 03:40: White Blood Count 9.9, Red Blood Count 3.56L, Hemoglobin 11.9L, Hematocrit 33.5L , Mean Corpuscular Volume 94, Mean Corpuscular Hemoglobin 33.3H, Mean Corpuscular Hemoglobin Concent 35.4, Red Cell Distribution Width 12.7, Platelet Count 97L, Mean Platelet Volume 15.7H, Neutrophils (%) (Auto) , Lymphocytes (%) (Auto) , Monocytes (%) (Auto) , Eosinophils (%) (Auto) , Basophils (%) (Auto) , Differential Total Cells Counted 100, Neutrophils % (Manual) 68, Lymphocytes % ( Manual) 19L, Monocytes % (Manual) 7, Eosinophils % (Manual) 6H, Basophils % ( Manual) 0, Band Neutrophils 0, Platelet Estimate DecreasedL, Platelet Morphology Normal, Red Blood Cell Morphology Normal, Reticulocyte Count 1.1, Prothrombin Time 10.0, Prothromb Time International Ratio 1.0, Activated Partial Thromboplast Time 31, Stool Occult Blood [Pending], Sodium Level 142, Potassium Level 3.2L, Chloride Level 104, Carbon Dioxide Level 31, Anion Gap 7, Blood Urea Nitrogen 24H, Creatinine 0.5L, Estimat Glomerular Filtration Rate > 60, Glucose Level 114H, Calcium Level 8.7, Phosphorus Level 2.4L, Iron Level 53 , Total Iron Binding Capacity 292, Percent Iron Saturation 18, Unsaturated Iron Binding 239, Ferritin 345, Total Bilirubin 0.3, Aspartate Amino Transf (AST/SGOT ) 24, Alanine Aminotransferase (ALT/SGPT) 38, Alkaline Phosphatase 74, Total Protein 7.8, Albumin 3.1L, Globulin 4.7, Albumin/Globulin Ratio 0.7L, Vitamin B12 Level 1308H, Folate 45.6, Thyroid Stimulating Hormone (TSH) 3.668, Free Thyroxine 1.11 11/20/17 04:00: Arterial Blood pH 7.430, Arterial Blood Partial Pressure CO2 39.3, Arterial Blood Partial Pressure O2 186.4H, Arterial Blood HCO3 26.0, Arterial Blood Oxygen Saturation 98.7H, Arterial Blood Base Excess 1.8, Wong Test Positive Height (Feet): 5 Height (Inches): 4.00 Weight (Pounds): 200 General Appearance: lethargic EENT: normal ENT inspection Neck: supple Cardiovascular: normal rate Respiratory/Chest: decreased breath sounds Abdomen: normal bowel sounds, non tender, soft Extremities: non-tender ISAAC MARTELL Nov 20, 2017 11:33
--- NOTE | 2017-11-20 11:54 | Diagnostic Imaging Report ---
Indication: Dyspnea Comparison: 04/01/2016 A single view chest radiograph was obtained. Findings: The interstitium of the lung is prominent especially in the right lung apex. Fibrosis is suspected. The heart is enlarged. Some degree of superimposed interstitial edema not excluded. There is evidence of a left pleural effusion which may be chronic as a similar finding was seen previously. Bones are osteopenic. IMPRESSION: Interstitial pulmonary fibrosis suspected. Tracheostomy noted. Superimposed interstitial edema is not excluded
[2017-11-20 12:00] VITALS: BP 107/71
[2017-11-20] MEDS: NS w/KCl 20mEq 1,000 ML IV SCH (12:08)
--- NOTE | 2017-11-20 13:27 | Internal Med Progress Note ---
Subjective Date of Service: Nov 20, 2017 Physician Name Heather Watson Attending Physician Royal Xiong MD Current Medications Medications (Trade) Dose Ordered Sig/Fransisco Route PRN Reason Start Time Stop Time Status Last Admin Dose Admin Acetaminophen (Tylenol) 650 mg DAILY GT 11/20/17 09:00 12/20/17 08:59 11/20/17 09:33 Acetaminophen (Tylenol) 650 mg EVERY 4 HOURS PRN GT For Pain 11/20/17 09:00 12/20/17 08:59 Acetaminophen/ Hydrocodone Bitart ([place] 5/325) 1 tab Q6H PRN GT PAIN 4-10 11/19/17 20:00 11/26/17 19:59 11/20/17 03:15 Ascorbic Acid (Vitamin C) 500 mg DAILY GT 11/20/17 09:00 12/20/17 08:59 11/20/17 09:32 Aspirin (ASA) 81 mg DAILY GT 11/20/17 09:00 12/20/17 08:59 11/20/17 09:31 Atorvastatin Calcium (Lipitor) 40 mg BEDTIME GT 11/20/17 21:00 12/20/17 20:59 Dextrose (Dextrose 50%) STAT PRN IV Hypoglycemia 11/19/17 08:45 12/19/17 08:44 Docusate Sodium (Colace) 100 mg TWICE A DAY GT 11/20/17 09:00 12/20/17 08:59 11/20/17 09:31 Heparin Sodium (Porcine) (Heparin 5000 units/ml) 5,000 units EVERY 12 HOURS SUBQ 11/19/17 12:00 12/19/17 11:59 11/20/17 09:35 Insulin Aspart (NovoLOG) EVERY 6 HOURS SUBQ 11/19/17 12:00 12/19/17 11:59 11/20/17 12:07 Metformin HCl (Glucophage) 500 mg TWICE A DAY GT 11/20/17 09:00 12/20/17 08:59 11/20/17 09:34 Ondansetron HCl (Zofran) 4 mg Q4H PRN GT Nausea & Vomiting 11/20/17 08:00 12/20/17 07:59 Pantoprazole (Protonix) 40 mg DAILY ORAL 11/21/17 09:00 12/21/17 08:59 Sodium Chloride 1,000 ml @ 75 mls/hr [id number] IV 11/19/17 10:00 12/19/17 09:59 11/20/17 12:08 Allergies: Coded Allergies: PENICILLINS (Unverified Allergy, Unknown, 02/26/16) POLYMYXIN B (Unverified Allergy, Unknown, 02/26/16) VANCOMYCIN (Unverified Allergy, Unknown, 02/26/16) ROS Limited/Unobtainable: Yes Subjective 72 YO M chronically ventillator dependent, admitted with malfunctioning G-Tube. S/P gastrostomy tube replacement. Cover for Int Med-Dr Xiong. [facility] Objective Last Vital Signs Date Time Temp Pulse Resp B/P (MAP) Pulse Ox O2 Delivery O2 Flow Rate FiO2 11/20/17 12:44 65 15 28 11/20/17 12:00 98.0 107/71 98 Mechanical Ventilator General Appearance: WD/WN, no apparent distress EENT: PERRL/EOMI Neck: non-tender, normal alignment, supple, other - tracheostomy present Cardiovascular: normal peripheral pulses, normal rate, regular rhythm, no gallop/murmur, no JVD Respiratory/Chest: chest wall non-tender, crackles/rales, rhonchi - bilaterally , expiratory wheezing Abdomen: normal bowel sounds, non tender, soft, no organomegaly, no mass, other - G-tube present Extremities: other - quadraplegia Laboratory Tests Test 11/20/17 03:40 11/20/17 04:00 White Blood Count 9.9 K/UL (4.8-10.8) Red Blood Count 3.56 M/UL (4.70-6.10) L Hemoglobin 11.9 G/DL (14.2-18.0) L Hematocrit 33.5 % (42.0-52.0) L Mean Corpuscular Volume 94 FL (80-99) Mean Corpuscular Hemoglobin 33.3 PG (27.0-31.0) H Mean Corpuscular Hemoglobin Concent 35.4 G/DL (32.0-36.0) Red Cell Distribution Width 12.7 % (11.6-14.8) Platelet Count 97 K/UL (150-450) L Mean Platelet Volume 15.7 FL (6.5-10.1) H Neutrophils (%) (Auto) % (45.0-75.0) Lymphocytes (%) (Auto) % (20.0-45.0) Monocytes (%) (Auto) % (1.0-10.0) Eosinophils (%) (Auto) % (0.0-3.0) Basophils (%) (Auto) % (0.0-2.0) Differential Total Cells Counted 100 Neutrophils % (Manual) 68 % (45-75) Lymphocytes % (Manual) 19 % (20-45) L Monocytes % (Manual) 7 % (1-10) Eosinophils % (Manual) 6 % (0-3) H Basophils % (Manual) 0 % (0-2) Band Neutrophils 0 % (0-8) Platelet Estimate Decreased L Platelet Morphology Normal Red Blood Cell Morphology Normal Reticulocyte Count 1.1 % (0.0-2.0) Prothrombin Time 10.0 SEC (9.30-11.50) Prothromb Time International Ratio 1.0 (0.9-1.1) Activated Partial Thromboplast Time 31 SEC (23-33) Stool Occult Blood Pending Sodium Level 142 MMOL/L (136-145) Potassium Level 3.2 MMOL/L (3.5-5.1) L Chloride Level 104 MMOL/L (98-107) Carbon Dioxide Level 31 MMOL/L (21-32) Anion Gap 7 mmol/L (5-15) Blood Urea Nitrogen 24 mg/dL (7-18) H Creatinine 0.5 MG/DL (0.55-1.30) L Estimat Glomerular Filtration Rate > 60 mL/min (>60) Glucose Level 114 MG/DL (74-106) H Calcium Level 8.7 MG/DL (8.5-10.1) Phosphorus Level 2.4 MG/DL (2.5-4.9) L Iron Level 53 ug/dL (50-175) Total Iron Binding Capacity 292 ug/dL (250-450) Percent Iron Saturation 18 % (15-50) Unsaturated Iron Binding 239 ug/dL (112-346) Ferritin 345 NG/ML (8-388) Total Bilirubin 0.3 MG/DL (0.2-1.0) Aspartate Amino Transf (AST/SGOT) 24 U/L (15-37) Alanine Aminotransferase (ALT/SGPT) 38 U/L (12-78) Alkaline Phosphatase 74 U/L (46-116) Total Protein 7.8 G/DL (6.4-8.2) Albumin 3.1 G/DL (3.4-5.0) L Globulin 4.7 g/dL Albumin/Globulin Ratio 0.7 (1.0-2.7) L Vitamin B12 Level 1308 PG/ML (193-986) H Folate 45.6 NG/ML (8.6-58.9) Thyroid Stimulating Hormone (TSH) 3.668 uiU/mL (0.358-3.740) Free Thyroxine 1.11 NG/DL (0.76-1.46) Arterial Blood pH 7.430 (7.350-7.450) Arterial Blood Partial Pressure CO2 39.3 mmHg (35.0-45.0) Arterial Blood Partial Pressure O2 186.4 mmHg (75.0-100.0) H Arterial Blood HCO3 26.0 mmol/L (22.0-26.0) Arterial Blood Oxygen Saturation 98.7 % (92.0-98.0) H Arterial Blood Base Excess 1.8 Wong Test Positive Intake and Output 11/19/17 11/20/17 19:00 07:00 Intake Total 75 ml 995 ml Output Total 1200 ml 1500 ml Balance -1125 ml -505 ml Intake Oral 0 ml IV Total 75 ml 825 ml Tube Feeding 170 ml Output Urine Total 1200 ml 950 ml Stool Total 550 ml # Bowel Movements 3 3 Assessment/Plan Problem List: (1) Cerebral vascular disease (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 (11) Acute and chronic respiratory failure ([id number]) (12) Ventilator dependence Assessment & Plan: See pulmonary note. Status: not improved HEATHER WATSON Nov 20, 2017 13:27
--- NOTE | 2017-11-20 13:52 | Pulmonology Progress Note ---
Assessment/Plan Assessment/Plan ASSESSMENT G tube malfunctioning s/p replacement of G tube at the bedside VDRF/trach probably interstitial pulmonary fibrosis dysphagia, G tube dehydration leukocytosis DM Hx of GBS anemia hypokalemia HTN thrombocytopenia PLAN OF CARE MIKE s/p GT replacement by GI KUB confirmed proper placement strict aspiration precautions GT feeding started monitor tolerance site care colostomy care, monitor output Vent/trach care pulmonary toilet prn baseline ABG stable CXR with interstitial pulmonary fibrosis suspected. BS management with SS of insulin IVF with K, monitor renal parameters, give additional K anemia w/up as ordered by GI c/w anemia of chronic disease, stool OB pending monitor counts, if further trend down of PLT,dc HEPARIN DVT GI prophayxlis bowel regimen pain management swallow eval monitor BP, currently normotensive case discussed and evaluated by supervising physician Subjective Allergies: Coded Allergies: PENICILLINS (Unverified Allergy, Unknown, 02/26/16) POLYMYXIN B (Unverified Allergy, Unknown, 02/26/16) VANCOMYCIN (Unverified Allergy, Unknown, 02/26/16) Subjective afebrile, leukocytosis resolved, GT functioning, Objective Last 24 Hour Vital Signs Date Time Temp Pulse Resp B/P (MAP) Pulse Ox O2 Delivery O2 Flow Rate FiO2 11/20/17 12:44 65 15 28 11/20/17 12:11 28 11/20/17 12:00 98.0 75 107/71 98 Mechanical Ventilator 28 11/20/17 12:00 69 11/20/17 11:17 69 16 28 11/20/17 08:48 74 17 28 11/20/17 08:09 28 11/20/17 08:00 28 11/20/17 08:00 77 11/20/17 08:00 97.8 75 18 99/66 100 Mechanical Ventilator 28 11/20/17 07:37 77 19 40 11/20/17 05:12 74 22 40 11/20/17 04:00 40 11/20/17 04:00 97.7 75 15 103/64 95 Mechanical Ventilator 40 11/20/17 04:00 76 11/20/17 03:06 72 16 40 11/20/17 01:02 76 16 40 11/20/17 00:00 66 11/20/17 00:00 40 11/20/17 00:00 97.7 70 15 105/65 95 Mechanical Ventilator 40 11/19/17 23:04 69 14 40 11/19/17 21:02 71 18 40 11/19/17 20:00 77 11/19/17 20:00 40 11/19/17 20:00 97.9 75 15 105/67 95 Mechanical Ventilator 40 11/19/17 19:23 78 20 40 11/19/17 18:07 70 15 40 11/19/17 16:03 40 11/19/17 16:00 89 11/19/17 16:00 97.3 87 15 136/60 95 Mechanical Ventilator 40 11/19/17 15:29 66 14 40 Intake and Output 11/19/17 11/20/17 19:00 07:00 Intake Total 75 ml 995 ml Output Total 1200 ml 1500 ml Balance -1125 ml -505 ml Intake Oral 0 ml IV Total 75 ml 825 ml Tube Feeding 170 ml Output Urine Total 1200 ml 950 ml Stool Total 550 ml # Bowel Movements 3 3 Objective General Appearance: on Vent AC 500-14-40%, awake, alert, responsive HEENT: normocephalic, atraumatic, anicteric, status post trach - Portex#7, secretons moderate, white, thick Neck: non-tender Respiratory/Chest: lungs clear, no respiratory distress Cardiovascular/Chest: normal rate, regular rhythm - SR on tele Abdomen: normal bowel sounds, non tender, soft, G tube, colostomy Genitourinary/Rectal: suprapubic catheter Neurologic: abnormal gait, alert, quadriplegia Musculoskeletal: atrophy - BLE Laboratory Tests 11/20/17 03:40: White Blood Count 9.9, Red Blood Count 3.56L, Hemoglobin 11.9L, Hematocrit 33.5L , Mean Corpuscular Volume 94, Mean Corpuscular Hemoglobin 33.3H, Mean Corpuscular Hemoglobin Concent 35.4, Red Cell Distribution Width 12.7, Platelet Count 97L, Mean Platelet Volume 15.7H, Neutrophils (%) (Auto) , Lymphocytes (%) (Auto) , Monocytes (%) (Auto) , Eosinophils (%) (Auto) , Basophils (%) (Auto) , Differential Total Cells Counted 100, Neutrophils % (Manual) 68, Lymphocytes % ( Manual) 19L, Monocytes % (Manual) 7, Eosinophils % (Manual) 6H, Basophils % ( Manual) 0, Band Neutrophils 0, Platelet Estimate DecreasedL, Platelet Morphology Normal, Red Blood Cell Morphology Normal, Reticulocyte Count 1.1, Prothrombin Time 10.0, Prothromb Time International Ratio 1.0, Activated Partial Thromboplast Time 31, Stool Occult Blood [Pending], Sodium Level 142, Potassium Level 3.2L, Chloride Level 104, Carbon Dioxide Level 31, Anion Gap 7, Blood Urea Nitrogen 24H, Creatinine 0.5L, Estimat Glomerular Filtration Rate > 60, Glucose Level 114H, Calcium Level 8.7, Phosphorus Level 2.4L, Iron Level 53 , Total Iron Binding Capacity 292, Percent Iron Saturation 18, Unsaturated Iron Binding 239, Ferritin 345, Total Bilirubin 0.3, Aspartate Amino Transf (AST/SGOT ) 24, Alanine Aminotransferase (ALT/SGPT) 38, Alkaline Phosphatase 74, Total Protein 7.8, Albumin 3.1L, Globulin 4.7, Albumin/Globulin Ratio 0.7L, Vitamin B12 Level 1308H, Folate 45.6, Thyroid Stimulating Hormone (TSH) 3.668, Free Thyroxine 1.11 11/20/17 04:00: Arterial Blood pH 7.430, Arterial Blood Partial Pressure CO2 39.3, Arterial Blood Partial Pressure O2 186.4H, Arterial Blood HCO3 26.0, Arterial Blood Oxygen Saturation 98.7H, Arterial Blood Base Excess 1.8, Wong Test Positive Current Medications Medications (Trade) Dose Ordered Sig/Fransisco Route PRN Reason Start Time Stop Time Status Last Admin Dose Admin Acetaminophen (Tylenol) 650 mg DAILY GT 11/20/17 09:00 12/20/17 08:59 11/20/17 09:33 Acetaminophen (Tylenol) 650 mg EVERY 4 HOURS PRN GT For Pain 11/20/17 09:00 12/20/17 08:59 Acetaminophen/ Hydrocodone Bitart ([place] 5/325) 1 tab Q6H PRN GT PAIN 4-10 11/19/17 20:00 11/26/17 19:59 11/20/17 03:15 Ascorbic Acid (Vitamin C) 500 mg DAILY GT 11/20/17 09:00 12/20/17 08:59 11/20/17 09:32 Aspirin (ASA) 81 mg DAILY GT 11/20/17 09:00 12/20/17 08:59 11/20/17 09:31 Atorvastatin Calcium (Lipitor) 40 mg BEDTIME GT 11/20/17 21:00 12/20/17 20:59 Dextrose (Dextrose 50%) STAT PRN IV Hypoglycemia 11/19/17 08:45 12/19/17 08:44 Docusate Sodium (Colace) 100 mg TWICE A DAY GT 11/20/17 09:00 12/20/17 08:59 11/20/17 09:31 Heparin Sodium (Porcine) (Heparin 5000 units/ml) 5,000 units EVERY 12 HOURS SUBQ 11/19/17 12:00 12/19/17 11:59 11/20/17 09:35 Insulin Aspart (NovoLOG) EVERY 6 HOURS SUBQ 11/19/17 12:00 12/19/17 11:59 11/20/17 12:07 Metformin HCl (Glucophage) 500 mg TWICE A DAY GT 11/20/17 09:00 12/20/17 08:59 11/20/17 09:34 Ondansetron HCl (Zofran) 4 mg Q4H PRN GT Nausea & Vomiting 11/20/17 08:00 12/20/17 07:59 Pantoprazole (Protonix) 40 mg DAILY ORAL 11/21/17 09:00 12/21/17 08:59 Sodium Chloride 1,000 ml @ 75 mls/hr [id number] IV 11/19/17 10:00 12/19/17 09:59 11/20/17 12:08 Bria So NP ([facility]) Nov 20, 2017 13:51
[2017-11-20] MEDS ORDERED: Albuterol/Ipratropium 3ml neb HHN PRN (14:00)
[2017-11-20 16:00] VITALS: BP 92/67
[2017-11-20 20:00] VITALS: BP 100/65
[2017-11-20] MEDS: Atorvastatin 20mg tab GT SCH (20:54)
[2017-11-21] VITALS: BP 105/66
[2017-11-21] MEDS: NovoLOG Insulin Flexpen SUBQ SCH ×5 (00:02→23:58)
[2017-11-21] MEDS: NS w/KCl 20mEq 1,000 ML IV SCH (02:02)
[2017-11-21 04:00] VITALS: BP 100/65
[2017-11-21] MEDS: Norco 5mg/325mg tab GT PRN (04:32)
[2017-11-21 05:01] LABS: HEMATOCRIT 32.1 % (42.0-52.0); HEMOGLOBIN 11.4 G/DL (14.2-18.0); MEAN CORPUSCULAR VOLUME 96 FL (80-99); PLATELET COUNT 95 K/UL (150-450); RED BLOOD COUNT 3.35 M/UL (4.70-6.10); RED CELL DISTRIBUTION WIDTH 13.3 % (11.6-14.8); WHITE BLOOD COUNT 9.6 K/UL (4.8-10.8)
[2017-11-21 05:13] LABS: ANION GAP 5 mmol/L (5-15); BLOOD UREA NITROGEN 16 mg/dL (7-18); CALCIUM 8.4 MG/DL (8.5-10.1); CARBON DIOXIDE 26 MMOL/L (21-32); CHLORIDE 111 MMOL/L (98-107); CREATININE 0.5 MG/DL (0.55-1.30); POTASSIUM 4.6 MMOL/L (3.5-5.1); SODIUM 142 MMOL/L (136-145)
[2017-11-21 08:00] VITALS: BP 98/68
--- NOTE | 2017-11-21 08:56 | General Progress Note ---
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 SNOMED: 82782350, 679996704 (5) Acute and chronic respiratory failure ([id number]) ICD Codes: J96.20 - Acute and chronic respiratory failure, unspecified whether with hypoxia or hypercapnia SNOMED: 64670111, 12696853 Assessment/Plan GTF, tolerated fu labs ppi daily Subjective ROS Limited/Unobtainable: No Allergies: Coded Allergies: PENICILLINS (Unverified Allergy, Unknown, 02/26/16) POLYMYXIN B (Unverified Allergy, Unknown, 02/26/16) VANCOMYCIN (Unverified Allergy, Unknown, 02/26/16) Objective Last 24 Hour Vital Signs Date Time Temp Pulse Resp B/P (MAP) Pulse Ox O2 Delivery O2 Flow Rate FiO2 11/21/17 07:47 86 11/21/17 07:23 78 18 28 11/21/17 05:14 82 25 28 11/21/17 04:00 28 11/21/17 04:00 98.2 77 100/65 99 Mechanical Ventilator 28 11/21/17 04:00 92 11/21/17 02:51 72 24 28 11/21/17 01:06 77 26 28 11/21/17 00:00 87 11/21/17 00:00 28 11/21/17 00:00 98.0 77 105/66 99 Mechanical Ventilator 28 11/20/17 23:00 78 30 28 11/20/17 21:06 74 21 28 11/20/17 20:00 28 11/20/17 20:00 98.2 77 100/65 99 Mechanical Ventilator 28 11/20/17 20:00 71 11/20/17 19:00 72 19 28 11/20/17 16:48 71 16 28 11/20/17 16:00 28 11/20/17 16:00 69 11/20/17 16:00 98.0 72 92/67 99 Mechanical Ventilator 28 11/20/17 14:33 74 16 28 11/20/17 12:44 65 15 28 11/20/17 12:11 28 11/20/17 12:00 98.0 75 107/71 98 Mechanical Ventilator 28 11/20/17 12:00 69 11/20/17 11:17 69 16 28 Intake and Output 11/20/17 11/21/17 19:00 07:00 Intake Total 555 ml 1300 ml Output Total 270 ml 1550 ml Balance 285 ml -250 ml Free Water 50 ml IV Total 75 ml 900 ml Tube Feeding 430 ml 400 ml Output Urine Total 1000 ml Stool Total 270 ml 550 ml # Bowel Movements 3 3 Laboratory Tests 11/21/17 04:40: White Blood Count 9.6, Red Blood Count 3.35L, Hemoglobin 11.4L, Hematocrit 32.1L , Mean Corpuscular Volume 96, Mean Corpuscular Hemoglobin 33.9H, Mean Corpuscular Hemoglobin Concent 35.4, Red Cell Distribution Width 13.3, Platelet Count 95L, Mean Platelet Volume 15.8H, Neutrophils (%) (Auto) , Lymphocytes (%) (Auto) , Monocytes (%) (Auto) , Eosinophils (%) (Auto) , Basophils (%) (Auto) , Differential Total Cells Counted 100, Neutrophils % (Manual) 66, Lymphocytes % ( Manual) 24, Monocytes % (Manual) 1, Eosinophils % (Manual) 9H, Basophils % ( Manual) 0, Band Neutrophils 0, Platelet Estimate DecreasedL, Platelet Morphology Normal, Red Blood Cell Morphology Normal, Sodium Level 142, Potassium Level 4.6, Chloride Level 111H, Carbon Dioxide Level 26, Anion Gap 5, Blood Urea Nitrogen 16, Creatinine 0.5L, Estimat Glomerular Filtration Rate > 60 , Glucose Level 128H, Calcium Level 8.4L Height (Feet): 5 Height (Inches): 4.00 Weight (Pounds): 200 General Appearance: no apparent distress EENT: normal ENT inspection Neck: supple Cardiovascular: normal rate Respiratory/Chest: decreased breath sounds Abdomen: normal bowel sounds, non tender, soft Extremities: non-tender ISAAC MARTELL Nov 21, 2017 08:55
[2017-11-21] MEDS: Acetaminophen 650mg/20.3ml GT SCH (09:18)
[2017-11-21] MEDS: Aspirin Baby 81mg GT SCH (09:18)
[2017-11-21] MEDS: Ascorbic Acid 500mg tab GT SCH (09:18)
[2017-11-21] MEDS: Docusate 100mg/10ml Liq GT SCH ×2 (09:18→17:24)
[2017-11-21] MEDS: metFORMIN 500mg tab GT SCH ×2 (09:18→17:24)
[2017-11-21] MEDS: Heparin 5000 units/ml inj SUBQ SCH ×2 (09:21→20:29)
--- NOTE | 2017-11-21 10:46 | Pulmonology Progress Note ---
Assessment/Plan Assessment/Plan ASSESSMENT G tube malfunctioning s/p replacement of G tube at the bedside VDRF/trach probably interstitial pulmonary fibrosis dysphagia, G tube dehydration leukocytosis DM Hx of GBS anemia hypokalemia HTN thrombocytopenia PLAN OF CARE MIKE s/p GT replacement by GI KUB confirmed proper placement strict aspiration precautions GT feeding monitor tolerance, tolerates site care colostomy care, monitor output Vent/trach care pulmonary toilet prn baseline ABG stable, keep settings as is CXR with interstitial pulmonary fibrosis suspected, no acute findings fup with CXR in am BS management with SS of insulin IVF- change to IVF w/out K and decrease rate K, Mg stable anemia w/up as ordered by GI c/w anemia of chronic disease, stool OB pending monitor counts, PLT at baseline, monitor, no trend down DVT GI prophayxlis bowel regimen pain management swallow eval in am monitor BP, currently normotensive case discussed and evaluated by supervising physician Subjective Allergies: Coded Allergies: PENICILLINS (Unverified Allergy, Unknown, 02/26/16) POLYMYXIN B (Unverified Allergy, Unknown, 02/26/16) VANCOMYCIN (Unverified Allergy, Unknown, 02/26/16) Subjective afebrile, leukocytosis resolved, GT functioning, tolerates feeding ABG stable on current settings Objective Last 24 Hour Vital Signs Date Time Temp Pulse Resp B/P (MAP) Pulse Ox O2 Delivery O2 Flow Rate FiO2 11/21/17 09:03 89 32 28 11/21/17 08:00 98.2 87 98/68 99 Mechanical Ventilator 28 11/21/17 08:00 28 11/21/17 07:47 86 11/21/17 07:23 78 18 28 11/21/17 05:14 82 25 28 11/21/17 04:00 28 11/21/17 04:00 98.2 77 100/65 99 Mechanical Ventilator 28 11/21/17 04:00 92 11/21/17 02:51 72 24 28 11/21/17 01:06 77 26 28 11/21/17 00:00 87 11/21/17 00:00 28 11/21/17 00:00 98.0 77 105/66 99 Mechanical Ventilator 28 11/20/17 23:00 78 30 28 11/20/17 21:06 74 21 28 11/20/17 20:00 28 11/20/17 20:00 98.2 77 100/65 99 Mechanical Ventilator 28 11/20/17 20:00 71 11/20/17 19:00 72 19 28 11/20/17 16:48 71 16 28 11/20/17 16:00 28 11/20/17 16:00 69 11/20/17 16:00 98.0 72 92/67 99 Mechanical Ventilator 28 11/20/17 14:33 74 16 28 11/20/17 12:44 65 15 28 11/20/17 12:11 28 11/20/17 12:00 98.0 75 107/71 98 Mechanical Ventilator 28 11/20/17 12:00 69 11/20/17 11:17 69 16 28 Intake and Output 11/20/17 11/21/17 19:00 07:00 Intake Total 555 ml 1300 ml Output Total 270 ml 1550 ml Balance 285 ml -250 ml Free Water 50 ml IV Total 75 ml 900 ml Tube Feeding 430 ml 400 ml Output Urine Total 1000 ml Stool Total 270 ml 550 ml # Bowel Movements 3 3 Objective General Appearance: on Vent AC 500-14-40%, awake, alert, responsive HEENT: normocephalic, atraumatic, anicteric, status post trach - Portex#7, secretons moderate, white, thick Neck: non-tender Respiratory/Chest: lungs clear, no respiratory distress Cardiovascular/Chest: normal rate, regular rhythm - SR on tele Abdomen: normal bowel sounds, non tender, soft, G tube, colostomy Genitourinary/Rectal: suprapubic catheter Neurologic: abnormal gait, alert, quadriplegia Musculoskeletal: atrophy - BLE Laboratory Tests 11/21/17 04:40: White Blood Count 9.6, Red Blood Count 3.35L, Hemoglobin 11.4L, Hematocrit 32.1L , Mean Corpuscular Volume 96, Mean Corpuscular Hemoglobin 33.9H, Mean Corpuscular Hemoglobin Concent 35.4, Red Cell Distribution Width 13.3, Platelet Count 95L, Mean Platelet Volume 15.8H, Neutrophils (%) (Auto) , Lymphocytes (%) (Auto) , Monocytes (%) (Auto) , Eosinophils (%) (Auto) , Basophils (%) (Auto) , Differential Total Cells Counted 100, Neutrophils % (Manual) 66, Lymphocytes % ( Manual) 24, Monocytes % (Manual) 1, Eosinophils % (Manual) 9H, Basophils % ( Manual) 0, Band Neutrophils 0, Platelet Estimate DecreasedL, Platelet Morphology Normal, Red Blood Cell Morphology Normal, Sodium Level 142, Potassium Level 4.6, Chloride Level 111H, Carbon Dioxide Level 26, Anion Gap 5, Blood Urea Nitrogen 16, Creatinine 0.5L, Estimat Glomerular Filtration Rate > 60 , Glucose Level 128H, Calcium Level 8.4L Current Medications Medications (Trade) Dose Ordered Sig/Fransisco Route PRN Reason Start Time Stop Time Status Last Admin Dose Admin Acetaminophen (Tylenol) 650 mg DAILY GT 11/20/17 09:00 12/20/17 08:59 11/21/17 09:18 Acetaminophen (Tylenol) 650 mg EVERY 4 HOURS PRN GT For Pain 11/20/17 09:00 12/20/17 08:59 Acetaminophen/ Hydrocodone Bitart ([place] 5/325) 1 tab Q6H PRN GT PAIN 4-10 11/19/17 20:00 11/26/17 19:59 11/21/17 04:32 Albuterol/ Ipratropium (Albuterol/ Ipratropium) 3 ml Q4H PRN HHN Shortness of Breath 11/20/17 14:00 11/25/17 13:59 Ascorbic Acid (Vitamin C) 500 mg DAILY GT 11/20/17 09:00 12/20/17 08:59 11/21/17 09:18 Aspirin (ASA) 81 mg DAILY GT 11/20/17 09:00 12/20/17 08:59 11/21/17 09:18 Atorvastatin Calcium (Lipitor) 40 mg BEDTIME GT 11/20/17 21:00 12/20/17 20:59 11/20/17 20:54 Dextrose (Dextrose 50%) STAT PRN IV Hypoglycemia 11/19/17 08:45 12/19/17 08:44 Docusate Sodium (Colace) 100 mg TWICE A DAY GT 11/20/17 09:00 12/20/17 08:59 11/21/17 09:18 Heparin Sodium (Porcine) (Heparin 5000 units/ml) 5,000 units EVERY 12 HOURS SUBQ 11/19/17 12:00 12/19/17 11:59 11/21/17 09:21 Insulin Aspart (NovoLOG) EVERY 6 HOURS SUBQ 11/19/17 12:00 12/19/17 11:59 11/21/17 06:29 Metformin HCl (Glucophage) 500 mg TWICE A DAY GT 11/20/17 09:00 12/20/17 08:59 11/21/17 09:18 Ondansetron HCl (Zofran) 4 mg Q4H PRN GT Nausea & Vomiting 11/20/17 08:00 12/20/17 07:59 Pantoprazole (Protonix) 40 mg DAILY ORAL 11/21/17 09:00 12/21/17 08:59 11/21/17 09:18 Sodium Chloride 1,000 ml @ 75 mls/hr [id number] IV 11/19/17 10:00 12/19/17 09:59 11/21/17 02:02 [place] ([facility])Bria NP Nov 21, 2017 10:46
[2017-11-21 12:04] VITALS: BP 98/89
--- NOTE | 2017-11-21 14:21 | Internal Med Progress Note ---
Subjective Physician Name Heather Watson Attending Physician Royal Xiong MD Current Medications Medications (Trade) Dose Ordered Sig/Fransisco Route PRN Reason Start Time Stop Time Status Last Admin Dose Admin Acetaminophen (Tylenol) 650 mg DAILY GT 11/20/17 09:00 12/20/17 08:59 11/21/17 09:18 Acetaminophen (Tylenol) 650 mg EVERY 4 HOURS PRN GT For Pain 11/20/17 09:00 12/20/17 08:59 Acetaminophen/ Hydrocodone Bitart ([place] 5/325) 1 tab Q6H PRN GT PAIN 4-10 11/19/17 20:00 11/26/17 19:59 11/21/17 04:32 Albuterol/ Ipratropium (Albuterol/ Ipratropium) 3 ml Q4H PRN HHN Shortness of Breath 11/20/17 14:00 11/25/17 13:59 Ascorbic Acid (Vitamin C) 500 mg DAILY GT 11/20/17 09:00 12/20/17 08:59 11/21/17 09:18 Aspirin (ASA) 81 mg DAILY GT 11/20/17 09:00 12/20/17 08:59 11/21/17 09:18 Atorvastatin Calcium (Lipitor) 40 mg BEDTIME GT 11/20/17 21:00 12/20/17 20:59 11/20/17 20:54 Dextrose (Dextrose 50%) STAT PRN IV Hypoglycemia 11/19/17 08:45 12/19/17 08:44 Docusate Sodium (Colace) 100 mg TWICE A DAY GT 11/20/17 09:00 12/20/17 08:59 11/21/17 09:18 Heparin Sodium (Porcine) (Heparin 5000 units/ml) 5,000 units EVERY 12 HOURS SUBQ 11/19/17 12:00 12/19/17 11:59 11/21/17 09:21 Insulin Aspart (NovoLOG) EVERY 6 HOURS SUBQ 11/19/17 12:00 12/19/17 11:59 11/21/17 11:35 Metformin HCl (Glucophage) 500 mg TWICE A DAY GT 11/20/17 09:00 12/20/17 08:59 11/21/17 09:18 Ondansetron HCl (Zofran) 4 mg Q4H PRN GT Nausea & Vomiting 11/20/17 08:00 12/20/17 07:59 Pantoprazole (Protonix) 40 mg DAILY ORAL 11/21/17 09:00 12/21/17 08:59 11/21/17 09:18 Sodium Chloride 1,000 ml @ 50 mls/hr Q20H IV 11/21/17 11:00 12/21/17 10:59 11/21/17 11:17 Allergies: Coded Allergies: PENICILLINS (Unverified Allergy, Unknown, 02/26/16) POLYMYXIN B (Unverified Allergy, Unknown, 02/26/16) VANCOMYCIN (Unverified Allergy, Unknown, 02/26/16) Subjective 72 YO M chronically ventillator dependent, admitted with malfunctioning G-Tube. S/P gastrostomy tube replacement. Cover for Int Med-Dr Xiong. MIKE Objective Last Vital Signs Date Time Temp Pulse Resp B/P (MAP) Pulse Ox O2 Delivery O2 Flow Rate FiO2 11/21/17 13:05 84 32 28 11/21/17 12:04 98.3 98/89 98 Mechanical Ventilator Laboratory Tests Test 11/21/17 04:40 White Blood Count 9.6 K/UL (4.8-10.8) Red Blood Count 3.35 M/UL (4.70-6.10) L Hemoglobin 11.4 G/DL (14.2-18.0) L Hematocrit 32.1 % (42.0-52.0) L Mean Corpuscular Volume 96 FL (80-99) Mean Corpuscular Hemoglobin 33.9 PG (27.0-31.0) H Mean Corpuscular Hemoglobin Concent 35.4 G/DL (32.0-36.0) Red Cell Distribution Width 13.3 % (11.6-14.8) Platelet Count 95 K/UL (150-450) L Mean Platelet Volume 15.8 FL (6.5-10.1) H Neutrophils (%) (Auto) % (45.0-75.0) Lymphocytes (%) (Auto) % (20.0-45.0) Monocytes (%) (Auto) % (1.0-10.0) Eosinophils (%) (Auto) % (0.0-3.0) Basophils (%) (Auto) % (0.0-2.0) Differential Total Cells Counted 100 Neutrophils % (Manual) 66 % (45-75) Lymphocytes % (Manual) 24 % (20-45) Monocytes % (Manual) 1 % (1-10) Eosinophils % (Manual) 9 % (0-3) H Basophils % (Manual) 0 % (0-2) Band Neutrophils 0 % (0-8) Platelet Estimate Decreased L Platelet Morphology Normal Red Blood Cell Morphology Normal Sodium Level 142 MMOL/L (136-145) Potassium Level 4.6 MMOL/L (3.5-5.1) Chloride Level 111 MMOL/L (98-107) H Carbon Dioxide Level 26 MMOL/L (21-32) Anion Gap 5 mmol/L (5-15) Blood Urea Nitrogen 16 mg/dL (7-18) Creatinine 0.5 MG/DL (0.55-1.30) L Estimat Glomerular Filtration Rate > 60 mL/min (>60) Glucose Level 128 MG/DL (74-106) H Calcium Level 8.4 MG/DL (8.5-10.1) L Microbiology Date/Time Source Procedure Growth Status 11/18/17 23:47 Rectum VRE Culture - Final NO VANCOMYCIN RESISTANT ENTEROCOCCUS ... Complete Intake and Output 11/20/17 11/21/17 19:00 07:00 Intake Total 555 ml 1300 ml Output Total 270 ml 1550 ml Balance 285 ml -250 ml Free Water 50 ml IV Total 75 ml 900 ml Tube Feeding 430 ml 400 ml Output Urine Total 1000 ml Stool Total 270 ml 550 ml # Bowel Movements 3 3 Objective General Appearance: WD/WN, no apparent distress EENT: PERRL/EOMI Neck: non-tender, normal alignment, supple, other - tracheostomy present Cardiovascular: normal peripheral pulses, normal rate, regular rhythm, no gallop/murmur, no JVD Respiratory/Chest: vent dependent; trach; chest wall non-tender, crackles/rales , rhonchi - bilaterally, expiratory wheezing Abdomen: normal bowel sounds, non tender, soft, no organomegaly, no mass, other - G-tube present Extremities: other - quadraplegia Assessment/Plan Problem List: (1) Cerebral vascular disease (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 (11) Acute and chronic respiratory failure ([id number]) (12) Ventilator dependence Assessment & Plan: See pulmonary note. Status: not improved Assessment/Plan Discharge planning HEATHER WATSON Nov 21, 2017 14:21
[2017-11-21 16:00] VITALS: BP 97/65
[2017-11-21 20:00] VITALS: BP 130/94
[2017-11-21] MEDS: Atorvastatin 20mg tab GT SCH (20:28)
--- NOTE | 2017-11-21 21:38 | Wound Care Consultation ---
Wound Assessment Wound Assessment #1: Wound Number: 1 Wound Present on Admission: Yes New Wound: No Status Change of Wound: No Wound Location Body Site Modif: left Wound Location Body Site: ischial tuberosity Wound Type: pressure ulcer Andrew Test: Does not Andrew Pressure Ulcer Stage: Deep Tissue Injury Wound Thickness: Full Thickness Wound Length: 3.0 Wound Width: 3.0 Wound Depth: utd Percent of Wound Purple/Maroon: 100 Wound Drainage Amount: None Wound Drainage Odor: None/Absent Tissue Surrounding Wound: Denuded Wound General Appearance: Reddened - purple/deep red Wound Assessment #2: Wound Number: 2 Wound Present on Admission: Yes New Wound: No Status Change of Wound: No Wound Location Body Site Modif: right Wound Location Body Site: ischial tuberosity Wound Type: pressure ulcer Andrew Test: Does not Andrew Pressure Ulcer Stage: Deep Tissue Injury Wound Thickness: Full Thickness Wound Length: 3.0 Wound Width: 3.0 Wound Depth: utd Percent of Wound Purple/Maroon: 100 Wound Drainage Amount: None Wound Drainage Odor: None/Absent Tissue Surrounding Wound: Intact Wound General Appearance: Reddened - deep red Wound Assessment #3: Wound Number: 3 Wound Present on Admission: Yes New Wound: No Status Change of Wound: No Wound Location Body Site Modif: left, right Wound Location Body Site: buttocks - and perineal area Wound Type: erosion Andrew Test: Does not Andrew Wound Thickness: Partial Thickness Percent of Wound [place]/Red: 100 Wound Drainage Amount: None Wound Drainage Odor: None/Absent Tissue Surrounding Wound: Denuded Wound General Appearance: Reddened Wound Comment #1 Right ischial tuberosity SDTI pressure ulcer #2 Left ischial tuberosity SDTI pressure ulcer #3 Perineal area, left and right buttocks chemical burn with erosion Recommendation -Local wound care per protocol -Heel protector on both heels -Offload both heels -Optimize nutrition -Low air loss mattress -Keep clean and dry -Turn and reposition -Assess and f/u accordingly for any changes MARLEE TAI RN Nov 21, 2017 21:38
[2017-11-22] VITALS: BP 92/64
[2017-11-22 04:00] VITALS: BP 111/71
[2017-11-22 05:38] LABS: HEMATOCRIT 32.2 % (42.0-52.0); HEMOGLOBIN 11.1 G/DL (14.2-18.0); MEAN CORPUSCULAR VOLUME 96 FL (80-99); PLATELET COUNT 90 K/UL (150-450); RED BLOOD COUNT 3.37 M/UL (4.70-6.10); RED CELL DISTRIBUTION WIDTH 13.5 % (11.6-14.8); WHITE BLOOD COUNT 9.8 K/UL (4.8-10.8)
[2017-11-22 05:50] LABS: ANION GAP 7 mmol/L (5-15); BLOOD UREA NITROGEN 15 mg/dL (7-18); CALCIUM 8.5 MG/DL (8.5-10.1); CARBON DIOXIDE 24 MMOL/L (21-32); CHLORIDE 111 MMOL/L (98-107); CREATININE 0.5 MG/DL (0.55-1.30); POTASSIUM 4.5 MMOL/L (3.5-5.1); SODIUM 142 MMOL/L (136-145)
[2017-11-22] MEDS: NovoLOG Insulin Flexpen SUBQ SCH ×3 (06:25→18:00)
[2017-11-22 08:00] VITALS: BP 127/84
[2017-11-22] MEDS: Aspirin Baby 81mg GT SCH (09:00)
[2017-11-22] MEDS: Acetaminophen 650mg/20.3ml GT SCH (09:00)
[2017-11-22] MEDS: metFORMIN 500mg tab GT SCH ×2 (09:00→18:00)
[2017-11-22] MEDS: Heparin 5000 units/ml inj SUBQ SCH (09:00)
[2017-11-22] MEDS: Ascorbic Acid 500mg tab GT SCH (09:00)
[2017-11-22] MEDS: Docusate 100mg/10ml Liq GT SCH ×2 (09:00→18:00)
--- NOTE | 2017-11-22 10:15 | Internal Med Progress Note ---
Subjective Date of Service: Nov 22, 2017 Physician Name YasmeenHeather Attending Physician Royal Xiong MD Current Medications Medications (Trade) Dose Ordered Sig/Fransisco Route PRN Reason Start Time Stop Time Status Last Admin Dose Admin Acetaminophen (Tylenol) 650 mg DAILY GT 11/20/17 09:00 12/20/17 08:59 11/22/17 09:00 Acetaminophen (Tylenol) 650 mg EVERY 4 HOURS PRN GT For Pain 11/20/17 09:00 12/20/17 08:59 Acetaminophen/ Hydrocodone Bitart ([place] 5/325) 1 tab Q6H PRN GT PAIN 4-10 11/19/17 20:00 11/26/17 19:59 11/21/17 04:32 Albuterol/ Ipratropium (Albuterol/ Ipratropium) 3 ml Q4H PRN HHN Shortness of Breath 11/20/17 14:00 11/25/17 13:59 Ascorbic Acid (Vitamin C) 500 mg DAILY GT 11/20/17 09:00 12/20/17 08:59 11/22/17 09:00 Aspirin (ASA) 81 mg DAILY GT 11/20/17 09:00 12/20/17 08:59 11/22/17 09:00 Atorvastatin Calcium (Lipitor) 40 mg BEDTIME GT 11/20/17 21:00 12/20/17 20:59 11/21/17 20:28 Dextrose (Dextrose 50%) STAT PRN IV Hypoglycemia 11/19/17 08:45 12/19/17 08:44 Docusate Sodium (Colace) 100 mg TWICE A DAY GT 11/20/17 09:00 12/20/17 08:59 11/22/17 09:00 Heparin Sodium (Porcine) (Heparin 5000 units/ml) 5,000 units EVERY 12 HOURS SUBQ 11/19/17 12:00 12/19/17 11:59 11/22/17 09:00 Insulin Aspart (NovoLOG) EVERY 6 HOURS SUBQ 11/19/17 12:00 12/19/17 11:59 11/22/17 06:25 Metformin HCl (Glucophage) 500 mg TWICE A DAY GT 11/20/17 09:00 12/20/17 08:59 11/22/17 09:00 Ondansetron HCl (Zofran) 4 mg Q4H PRN GT Nausea & Vomiting 11/20/17 08:00 12/20/17 07:59 Pantoprazole (Protonix) 40 mg DAILY ORAL 11/21/17 09:00 12/21/17 08:59 11/22/17 09:00 Sodium Chloride 1,000 ml @ 50 mls/hr Q20H IV 11/21/17 11:00 12/21/17 10:59 11/22/17 06:28 Allergies: Coded Allergies: PENICILLINS (Unverified Allergy, Unknown, 02/26/16) POLYMYXIN B (Unverified Allergy, Unknown, 02/26/16) VANCOMYCIN (Unverified Allergy, Unknown, 02/26/16) ROS Limited/Unobtainable: Yes Subjective 72 YO M chronically ventillator dependent, admitted with malfunctioning G-Tube. S/P gastrostomy tube replacement. Cover for Int Med-Dr Xiong. MIKE Await swallow eval. Objective Last Vital Signs Date Time Temp Pulse Resp B/P (MAP) Pulse Ox O2 Delivery O2 Flow Rate FiO2 11/22/17 09:19 85 29 28 11/22/17 09:00 97.9 11/22/17 04:00 111/71 98 Mechanical Ventilator Laboratory Tests Test 11/22/17 04:20 White Blood Count 9.8 K/UL (4.8-10.8) Red Blood Count 3.37 M/UL (4.70-6.10) L Hemoglobin 11.1 G/DL (14.2-18.0) L Hematocrit 32.2 % (42.0-52.0) L Mean Corpuscular Volume 96 FL (80-99) Mean Corpuscular Hemoglobin 32.8 PG (27.0-31.0) H Mean Corpuscular Hemoglobin Concent 34.3 G/DL (32.0-36.0) Red Cell Distribution Width 13.5 % (11.6-14.8) Platelet Count 90 K/UL (150-450) L Mean Platelet Volume 14.8 FL (6.5-10.1) H Neutrophils (%) (Auto) % (45.0-75.0) Lymphocytes (%) (Auto) % (20.0-45.0) Monocytes (%) (Auto) % (1.0-10.0) Eosinophils (%) (Auto) % (0.0-3.0) Basophils (%) (Auto) % (0.0-2.0) Differential Total Cells Counted 100 Neutrophils % (Manual) 72 % (45-75) Lymphocytes % (Manual) 19 % (20-45) L Monocytes % (Manual) 5 % (1-10) Eosinophils % (Manual) 4 % (0-3) H Basophils % (Manual) 0 % (0-2) Band Neutrophils 0 % (0-8) Platelet Estimate Decreased L Platelet Morphology Normal Hypochromasia 1+ Anisocytosis 1+ Sodium Level 142 MMOL/L (136-145) Potassium Level 4.5 MMOL/L (3.5-5.1) Chloride Level 111 MMOL/L (98-107) H Carbon Dioxide Level 24 MMOL/L (21-32) Anion Gap 7 mmol/L (5-15) Blood Urea Nitrogen 15 mg/dL (7-18) Creatinine 0.5 MG/DL (0.55-1.30) L Estimat Glomerular Filtration Rate > 60 mL/min (>60) Glucose Level 100 MG/DL (74-106) Calcium Level 8.5 MG/DL (8.5-10.1) Intake and Output 11/21/17 11/22/17 19:00 07:00 Intake Total 1620 ml 1120 ml Output Total 800 ml 850 ml Balance 820 ml 270 ml Free Water 200 ml 100 ml IV Total 400 ml 550 ml Tube Feeding 720 ml 420 ml Other 300 ml 50 ml Output Urine Total 350 ml 400 ml Stool Total 450 ml 450 ml # Bowel Movements 2 3 Objective General Appearance: WD/WN, no apparent distress EENT: PERRL/EOMI Neck: non-tender, normal alignment, supple, other - tracheostomy present Cardiovascular: normal peripheral pulses, normal rate, regular rhythm, no gallop/murmur, no JVD Respiratory/Chest: vent dependent; trach; chest wall non-tender, crackles/rales , rhonchi - bilaterally, expiratory wheezing Abdomen: G tube; normal bowel sounds, non tender, soft, no organomegaly, no mass, other - G-tube present Extremities: other - quadraplegia Assessment/Plan Problem List: (1) Cerebral vascular disease (2) 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 S/P G tube replacement. (7) Decubitus ulcer of sacral region, stage 2 (8) Colostomy care (9) Hypercholesteremia Assessment & Plan: Continue lipitor (10) Malfunction of gastrostomy tube Assessment & Plan: S/P replacement 11/19/17-see GI note. (11) Acute and chronic respiratory failure ([id number]) (12) Ventilator dependence Assessment & Plan: See pulmonary note. Status: progressing Assessment/Plan Discharge planning: [facility] HEATHER WATSON Nov 22, 2017 10:15
--- NOTE | 2017-11-22 10:16 | Diagnostic Imaging Report ---
Indication: Shortness of breath Technique: One view of the chest Comparison: 11/20/2017 Findings: Tracheostomy remains. Chronic appearing interstitial disease in the right upper lobe persists. Generalized bronchial wall thickening persists, unchanged. Left-sided pleural effusion persists. Left basilar atelectasis persists. The heart size is normal. There is a gastrostomy Impression: Unchanged, over one day, findings as above.
--- NOTE | 2017-11-22 10:31 | Pulmonology Progress Note ---
Assessment/Plan Assessment/Plan ASSESSMENT G tube malfunctioning s/p replacement of G tube at the bedside VDRF/trach probably interstitial pulmonary fibrosis dysphagia, G tube dehydration leukocytosis DM Hx of GBS anemia hypokalemia HTN thrombocytopenia PLAN OF CARE MIKE s/p GT replacement by GI KUB confirmed proper placement strict aspiration precautions GT feeding monitor tolerance, tolerates site care colostomy care, monitor output Vent/trach care pulmonary toilet prn baseline ABG stable, keep settings as is CXR with interstitial pulmonary fibrosis suspected, no acute findings fup with CXR in am BS management with SS of insulin IVF- change to IVF w/out K and decrease rate K, Mg stable anemia w/up as ordered by GI c/w anemia of chronic disease, stool OB pending monitor counts, PLT at baseline, monitor, no trend down DVT GI prophayxlis bowel regimen pain management swallow eval in am monitor BP, currently normotensive dc plan for today case discussed and evaluated by supervising physician Subjective Allergies: Coded Allergies: PENICILLINS (Unverified Allergy, Unknown, 02/26/16) POLYMYXIN B (Unverified Allergy, Unknown, 02/26/16) VANCOMYCIN (Unverified Allergy, Unknown, 02/26/16) Subjective afebrile, leukocytosis resolved, GT functioning, tolerates feeding ABG stable on current settings Objective Last 24 Hour Vital Signs Date Time Temp Pulse Resp B/P (MAP) Pulse Ox O2 Delivery O2 Flow Rate FiO2 11/22/17 09:30 97.9 11/22/17 09:19 85 29 28 11/22/17 09:00 97.9 11/22/17 08:00 90 11/22/17 08:00 98.7 90 20 127/84 98 Mechanical Ventilator 28 11/22/17 08:00 28 11/22/17 07:29 74 20 28 11/22/17 05:44 84 20 28 11/22/17 04:00 84 11/22/17 04:00 28 11/22/17 04:00 97.9 81 20 111/71 98 Mechanical Ventilator 28 11/22/17 02:03 81 20 28 11/22/17 00:00 97.9 83 20 92/64 99 Mechanical Ventilator 28 11/22/17 00:00 78 11/21/17 22:50 71 21 28 11/21/17 21:01 71 21 28 11/21/17 20:00 76 2/18/18 20:00 28 11/21/17 20:00 97.7 76 20 130/94 98 Mechanical Ventilator 28 11/21/17 19:00 71 21 28 11/21/17 17:06 71 21 28 11/21/17 16:00 70 11/21/17 16:00 98.2 83 19 97/65 98 Mechanical Ventilator 28 11/21/17 16:00 28 11/21/17 15:19 80 32 28 11/21/17 13:05 84 32 28 11/21/17 12:06 28 11/21/17 12:04 98.3 79 98/89 98 Mechanical Ventilator 28 11/21/17 11:54 72 11/21/17 11:00 78 32 28 Intake and Output 11/21/17 11/22/17 19:00 07:00 Intake Total 1620 ml 1120 ml Output Total 800 ml 850 ml Balance 820 ml 270 ml Free Water 200 ml 100 ml IV Total 400 ml 550 ml Tube Feeding 720 ml 420 ml Other 300 ml 50 ml Output Urine Total 350 ml 400 ml Stool Total 450 ml 450 ml # Bowel Movements 2 3 Objective General Appearance: on Vent AC 500-14-40%, awake, alert, responsive HEENT: normocephalic, atraumatic, anicteric, status post trach - Portex#7, secretons moderate, white, thick Neck: non-tender Respiratory/Chest: lungs clear, no respiratory distress Cardiovascular/Chest: normal rate, regular rhythm - SR on tele Abdomen: normal bowel sounds, non tender, soft, G tube, colostomy Genitourinary/Rectal: suprapubic catheter Neurologic: abnormal gait, alert, quadriplegia Musculoskeletal: atrophy - BLE Laboratory Tests 11/22/17 04:20: White Blood Count 9.8, Red Blood Count 3.37L, Hemoglobin 11.1L, Hematocrit 32.2L , Mean Corpuscular Volume 96, Mean Corpuscular Hemoglobin 32.8H, Mean Corpuscular Hemoglobin Concent 34.3, Red Cell Distribution Width 13.5, Platelet Count 90L, Mean Platelet Volume 14.8H, Neutrophils (%) (Auto) , Lymphocytes (%) (Auto) , Monocytes (%) (Auto) , Eosinophils (%) (Auto) , Basophils (%) (Auto) , Differential Total Cells Counted 100, Neutrophils % (Manual) 72, Lymphocytes % ( Manual) 19L, Monocytes % (Manual) 5, Eosinophils % (Manual) 4H, Basophils % ( Manual) 0, Band Neutrophils 0, Platelet Estimate DecreasedL, Platelet Morphology Normal, Hypochromasia 1+, Anisocytosis 1+, Sodium Level 142, Potassium Level 4.5, Chloride Level 111H, Carbon Dioxide Level 24, Anion Gap 7, Blood Urea Nitrogen 15, Creatinine 0.5L, Estimat Glomerular Filtration Rate > 60 , Glucose Level 100, Calcium Level 8.5 Current Medications Medications (Trade) Dose Ordered Sig/Fransisco Route PRN Reason Start Time Stop Time Status Last Admin Dose Admin Acetaminophen (Tylenol) 650 mg DAILY GT 11/20/17 09:00 12/20/17 08:59 11/22/17 09:00 Acetaminophen (Tylenol) 650 mg EVERY 4 HOURS PRN GT For Pain 11/20/17 09:00 12/20/17 08:59 Acetaminophen/ Hydrocodone Bitart ([place] 5/325) 1 tab Q6H PRN GT PAIN 4-10 11/19/17 20:00 11/26/17 19:59 11/21/17 04:32 Albuterol/ Ipratropium (Albuterol/ Ipratropium) 3 ml Q4H PRN HHN Shortness of Breath 11/20/17 14:00 11/25/17 13:59 Ascorbic Acid (Vitamin C) 500 mg DAILY GT 11/20/17 09:00 12/20/17 08:59 11/22/17 09:00 Aspirin (ASA) 81 mg DAILY GT 11/20/17 09:00 12/20/17 08:59 11/22/17 09:00 Atorvastatin Calcium (Lipitor) 40 mg BEDTIME GT 11/20/17 21:00 12/20/17 20:59 11/21/17 20:28 Dextrose (Dextrose 50%) STAT PRN IV Hypoglycemia 11/19/17 08:45 12/19/17 08:44 Docusate Sodium (Colace) 100 mg TWICE A DAY GT 11/20/17 09:00 12/20/17 08:59 11/22/17 09:00 Heparin Sodium (Porcine) (Heparin 5000 units/ml) 5,000 units EVERY 12 HOURS SUBQ 11/19/17 12:00 12/19/17 11:59 11/22/17 09:00 Insulin Aspart (NovoLOG) EVERY 6 HOURS SUBQ 11/19/17 12:00 12/19/17 11:59 11/22/17 06:25 Metformin HCl (Glucophage) 500 mg TWICE A DAY GT 11/20/17 09:00 12/20/17 08:59 11/22/17 09:00 Ondansetron HCl (Zofran) 4 mg Q4H PRN GT Nausea & Vomiting 11/20/17 08:00 12/20/17 07:59 Pantoprazole (Protonix) 40 mg DAILY ORAL 11/21/17 09:00 12/21/17 08:59 11/22/17 09:00 Sodium Chloride 1,000 ml @ 50 mls/hr Q20H IV 11/21/17 11:00 12/21/17 10:59 11/22/17 06:28 Judah ([facility])Bria NP Nov 22, 2017 10:31
--- NOTE | 2017-11-22 11:59 | GI Progress Note ---
Assessment/Plan Problems: (1) Hypoalbuminemia ICD Codes: E88.09 - Other disorders of plasma-protein metabolism, not elsewhere classified SNOMED: 786368412 (2) Anemia ICD Codes: D64.9 - Anemia, unspecified SNOMED: 120742064 (3) Abdominal pain ICD Codes: R10.9 - Unspecified abdominal pain SNOMED: 82928183 (4) Feeding by G-tube ICD Codes: Z93.1 - Gastrostomy status SNOMED: 936862121, 958917969 (5) Malfunction of gastrostomy tube ICD Codes: K94.23 - Gastrostomy malfunction SNOMED: 654704106 Status: stable Status Narrative Discussed with Dr. Jackson. Assessment/Plan okay for DC per GI standpoint GTF, tolerated fu labs ppi daily Subjective Subjective limited Objective Last 24 Hour Vital Signs Date Time Temp Pulse Resp B/P (MAP) Pulse Ox O2 Delivery O2 Flow Rate FiO2 11/22/17 11:14 98 28 28 11/22/17 09:30 97.9 11/22/17 09:19 85 29 28 11/22/17 09:00 97.9 11/22/17 08:00 90 11/22/17 08:00 98.7 90 20 127/84 98 Mechanical Ventilator 28 11/22/17 08:00 28 11/22/17 07:29 74 20 28 11/22/17 05:44 84 20 28 11/22/17 04:00 84 11/22/17 04:00 28 11/22/17 04:00 97.9 81 20 111/71 98 Mechanical Ventilator 28 11/22/17 02:03 81 20 28 11/22/17 00:00 97.9 83 20 92/64 99 Mechanical Ventilator 28 11/22/17 00:00 78 11/21/17 22:50 71 21 28 11/21/17 21:01 71 21 28 11/21/17 20:00 76 11/21/17 20:00 28 11/21/17 20:00 97.7 76 20 130/94 98 Mechanical Ventilator 28 11/21/17 19:00 71 21 28 11/21/17 17:06 71 21 28 11/21/17 16:00 70 11/21/17 16:00 98.2 83 19 97/65 98 Mechanical Ventilator 28 11/21/17 16:00 28 11/21/17 15:19 80 32 28 11/21/17 13:05 84 32 28 11/21/17 12:06 28 11/21/17 12:04 98.3 79 98/89 98 Mechanical Ventilator 28 Intake and Output 11/21/17 11/22/17 19:00 07:00 Intake Total 1620 ml 1120 ml Output Total 800 ml 850 ml Balance 820 ml 270 ml Free Water 200 ml 100 ml IV Total 400 ml 550 ml Tube Feeding 720 ml 420 ml Other 300 ml 50 ml Output Urine Total 350 ml 400 ml Stool Total 450 ml 450 ml # Bowel Movements 2 3 Laboratory Tests Test 11/22/17 04:20 White Blood Count 9.8 K/UL (4.8-10.8) Red Blood Count 3.37 M/UL (4.70-6.10) L Hemoglobin 11.1 G/DL (14.2-18.0) L Hematocrit 32.2 % (42.0-52.0) L Mean Corpuscular Volume 96 FL (80-99) Mean Corpuscular Hemoglobin 32.8 PG (27.0-31.0) H Mean Corpuscular Hemoglobin Concent 34.3 G/DL (32.0-36.0) Red Cell Distribution Width 13.5 % (11.6-14.8) Platelet Count 90 K/UL (150-450) L Mean Platelet Volume 14.8 FL (6.5-10.1) H Neutrophils (%) (Auto) % (45.0-75.0) Lymphocytes (%) (Auto) % (20.0-45.0) Monocytes (%) (Auto) % (1.0-10.0) Eosinophils (%) (Auto) % (0.0-3.0) Basophils (%) (Auto) % (0.0-2.0) Differential Total Cells Counted 100 Neutrophils % (Manual) 72 % (45-75) Lymphocytes % (Manual) 19 % (20-45) L Monocytes % (Manual) 5 % (1-10) Eosinophils % (Manual) 4 % (0-3) H Basophils % (Manual) 0 % (0-2) Band Neutrophils 0 % (0-8) Platelet Estimate Decreased L Platelet Morphology Normal Hypochromasia 1+ Anisocytosis 1+ Sodium Level 142 MMOL/L (136-145) Potassium Level 4.5 MMOL/L (3.5-5.1) Chloride Level 111 MMOL/L (98-107) H Carbon Dioxide Level 24 MMOL/L (21-32) Anion Gap 7 mmol/L (5-15) Blood Urea Nitrogen 15 mg/dL (7-18) Creatinine 0.5 MG/DL (0.55-1.30) L Estimat Glomerular Filtration Rate > 60 mL/min (>60) Glucose Level 100 MG/DL (74-106) Calcium Level 8.5 MG/DL (8.5-10.1) Height (Feet): 5 Height (Inches): 4.00 Weight (Pounds): 200 General Appearance: WD/WN, no apparent distress, alert Cardiovascular: normal rate Respiratory/Chest: normal breath sounds, no respiratory distress Abdominal Exam: normal bowel sounds, non tender, soft, GT site - c/d/i Extremities: non-tender Lexy Germain N.P. Nov 22, 2017 11:59
[2017-11-22 12:00] VITALS: BP 116/69
[2017-11-22 16:00] VITALS: BP 120/72
[2017-11-22] MEDS: Norco 5mg/325mg tab GT PRN (16:21)
--- NOTE | 2017-11-25 09:13 | Discharge Summary ---
Discharge Summary Hospital Course Date of Admission Nov 18, 2017 at 23:29 Date of Discharge Nov 22, 2017 at 18:54 Admitting Diagnosis Gtube malfunction HPI Yogesh Arreguin is a 72 year old male who was admitted on Nov 18, 2017 at 23:29 for Gastric Tube Malfunction Hospital Course dc summary #[id number] Discharge Medications Continued Medications: Acetaminophen (Acetaminophen) 650 Mg/20.3 Ml Soln 650 MG GT EVERY 4 HOURS PRN for For Pain, ML 0 Refills Acetaminophen* (Acetaminophen 325MG Tablet*) 325 Mg Tablet 650 MG GT DAILY, TAB Acidophilus/Bulgaricus (Floranex Tablet) 1 Each Tablet 1 EACH GT, TAB Ascorbic Acid* (Vitamin C*) 500 Mg Tablet 500 MG GT DAILY, #30 TAB 0 Refills Aspirin* (Aspir 81*) 81 Mg Tablet.dr 81 MG GT DAILY, TAB Atenolol* (Tenormin*) 50 Mg Tablet 50 MG ORAL BID, TAB Atorvastatin Calcium* (Atorvastatin Calcium*) 40 Mg Tablet 40 MG GT BEDTIME, TAB Aztreonam (Azactam) 1 Gm Vial 1 GM IVPB Q8HR, VIAL Bisacodyl (Bisacodyl) 10 Mg Supp.rect 10 MG RC PRN for Constipation, SUPP Chlorhexidine Gluconate (Chlorhexidine Gluconate) 16 Oz Soln 15 ML MT TWICE A DAY, ML Chlorhexidine Gluconate* (Hibiclens*) 118 Ml Liquid 118 ML TP, ML Cholecalciferol (Vitamin D3) (Vitamin D-400*) 400 Unit Tablet 1000 UNITS ORAL DAILY, #10 TAB 0 Refills Citalopram Hydrobromide (Celexa) 10 Mg Tablet 10 MG GT DAILY, TAB Cranberry Fruit Concentrate (Cranberry) 450 Mg Capsule 450 MG GT, CAP Dextran 70/Hypromellose (Artificial Tears Eye Drops*) 15 Ml Drops 1 DROP BOTH EYES, #15 ML 0 Refills Dextrose/Sod Chloride (Dextrose 5%-0.45% NaCl IV Soln) 1,000 Ml Bag 40 ML IV, BAG Docusate Sodium (Docusate Sodium) 100 Mg/10 Ml Udc 100 MG GT TWICE A DAY, EA Esomeprazole Magnesium (Nexium) 40 Mg Capsule.dr 40 MG GT DAILY, CAP Ferrous Sulfate (Ferrous Sulfate) 140 Mg Tablet.er 50 MG GT, TAB Ferrous Sulfate (Feosol) 325 Mg Tablet 300 MG GT BID, TAB Ferrous Sulfate (Ferrous Sulfate) 220 Mg/5 Ml Elixir 220 MG GT, ML Guaifenesin/Dextromethorphan (Guaifenesin Dm Syrup) 5 Ml Syr 10 ML GT PRN for For Cough, SYR Heparin Sodium,Porcine/Ns/Pf (Heparin) 2,000 Unit/1000 Ml Iv.soln 5000 UNIT SUBQ Q12HR Ipratropium/Albuterol Sulfate (DuoNeb 0.5-3(2.5)mg/3ml) 3 Ml Ampul.neb 3 ML HHN, EA Linagliptin (Tradjenta) 5 Mg Tablet 5 MG GT, TAB Linezolid* (Zyvox*) 600 Mg Tablet 600 MG ORAL EVERY 12 HOURS, TAB Magnesium Hydroxide (Milk of Magnesia) 30 Ml Susp 30 ML ORAL DAILY PRN for Constipation Metformin Hcl* (Metformin Hcl*) 500 Mg Tablet 500 MG GT TWICE A DAY, TAB Metoclopramide Hcl (Metoclopramide Hcl*) 5 Mg/1 Ml Vial 5 MG GT, VIAL Morphine Sulfate/Pf (Morphine 4 Mg/Ml Carpuject) 4 Mg/1 Ml Cartridge 4 MG IV Q4HR PRN for For Pain Multivit-Min/Iron Fum/Folic AC (Hjjsu-Vetoxtv-Ellsyces Tablet) 1 Each Tablet 1 EACH GT, TAB Na Phos,M-B/Na Phos,Di-Ba (Fleet Enema) 133 Ml Enema 118 ML RC PRN for Constipation, EA Ondansetron* (Zofran*) 4 Mg Tablet 4 MG GT Q4HR PRN for Nausea & Vomiting, TAB Polyethylene Glycol* (Miralax*) 17 Gm Powd.pack 17 GM ORAL DAILY PRN for Constipation, PACKET Ranitidine Hcl* (Zantac*) 150 Mg Tablet 150 MG ORAL TWICE A DAY, TAB Ranitidine Hcl* (Zantac*) 150 Mg Tablet 150 MG GT TWICE A DAY, TAB Simvastatin (Zocor) 40 Mg Tablet 40 MG GT BEDTIME, TAB Vitamin D (Vitamin D3) 400 Unit Tablet 5000 UNITS GT DAILY, TAB [lorazepam] () 2 MG IV PRN for Agitation Discharge Condition Upon Discharge: stable Discharge Disposition Patient was discharged to SNF/Subacute Facility(03) Discharge Diagnoses: Judah (Oziel)Bria NP Nov 25, 2017 09:13
--- NOTE | 2017-11-25 23:16 | Discharge Summary 2 SIG ---
DATE OF ADMISSION: 11/18/2017 DATE OF DISCHARGE: 11/22/2017 REASON FOR ADMISSION: 72-year-old male with past medical history significant for ventilator-dependent respiratory failure, tracheostomy status, dysphagia, G-tube, Guillain-Dallas syndrome, colostomy status, hypertension, and anemia, presented to emergency department for evaluation. The patient was sent for G-tube replacement, which was malfunctional as per nursing staff. Upon evaluation, there was no signs of distress. No nausea. No vomiting. No abdominal pain. No fevers. No cough. WBC -12.1, potassium -3.2, BUN- 64, creatinine -0.8, mild anemia, and glucose -209. The patient was admitted for further management with diagnoses of G-tube malfunctioning, ventilator-dependent respiratory failure, tracheostomy status, dysphagia, G-tube, dehydration, leukocytosis, diabetes, history of Guillain-Dallas syndrome, anemia, hypokalemia, and hypertension. HOSPITAL COURSE: The patient admitted. GI and Pulmonology consults were requested. GI replaced G-tube at the bedside. KUB confirmed proper placement. The patient started on G-tube feeding with strict aspiration/reflux precaution. Site care was provided. Patient was able to tolerate tube feeding, replaced G tube was functional. Colostomy care provided. Output was closely monitored. Ventilator and tracheostomy care provided. Pulmonary toilet provided. Baseline ABG was stable on current setting. Settings were kept as is. Chest x-ray revealed suspected interstitial pulmonary fibrosis, but no acute findings. Follow up chest x-ray revealed unchanged findings with chronic appearing interstitial disease in the right upper lobe, generalized bronchial wall thickening, and left basilar atelectasis. The heart size was normal. Leukocytosis was likely reactive, no evidence of infection, resolved. Blood sugar was managed with sliding scale of insulin. The patient was initially on the IV fluids. After hypokalemia resolved, IV fluids were changed to one without potassium, IV rate was decreased, and subsequently IV fluids were discontinued, when the patient was able to tolerate feeding. Renal parameters and electrolytes were closely monitored. Electrolytes corrected as needed. Nephrotoxics were avoided. Anemia workup was consistent with anemia of chronic disease. Counts were closely monitored. Platelets on the baseline, no trend down, in 80s to 90s. DVT and GI prophylaxes provided. Bowel regimen instituted. Pain management provided. Blood pressure was closely monitored and managed with current regimen. Swallow evaluation was done since the patient was receiving pureed lunch at the subacute facility. According to speech therapy recommendations, continue strict NPO with G-tube feeding, consider video swallow study as outpatient, and initiate Passe Holder valve trials as tolerated. The patient was stable for discharge. FINAL DIAGNOSES: 1. Gastrostomy tube malfunctioning, 2. Status post replacement of gastrostomy tube at the bedside. 3. Ventilator-dependent respiratory failure with tracheostomy status, 4. Possible interstitial pulmonary fibrosis. 5. Dysphagia, gastrostomy tube. 6. Dehydration. 7. Leukocytosis. 6. Diabetes mellitus. 7. History of Guillain-Dallas syndrome. 8. Cerebrovascular disease. 9. Acute complete quadriplegia. 10. Anemia of chronic disease. 11. Hypokalemia, resolved. 12. Hypertension. 13. Thrombocytopenia. 14. Hypercholesteremia. 15. Colostomy. DISCHARGE MEDICATIONS: See medication reconciliation list. DISCHARGE INSTRUCTIONS: The [facility]. FOLLOWUP: Follow up with medical doctor and cutter grind tool technician at the facility. Royal Xiong M.D. [facility]: [facility] CampusMelchor N.P. DR: ANALI JOB#: [id number] CC: HERNANDEZ
== END 2017-11-22 18:54 | DRG 393 ==
LOC: EDBD 22:22 → EDUNIT# 22:22 → EMR 22:43 → 2W 23:29 → EDBEDREQ 23:40 → EDBEDREQSVC 23:40 → EDBEDREQ 11-19 07:24 → 2W 11-19 22:40
PROC: 5A1945Z Respiratory Ventilation, 24-96 Consecutive Hours (ICD-10-PCS; principal; 2017-11-18)
PROC: 0D20XUZ Change Feeding Device in Upper Intestinal Tract, External Approach (ICD-10-PCS; 2017-11-19)
DX: K94.23 Gastrostomy malfunction (principal); G82.50 Quadriplegia, unspecified; J96.20 Acute and chronic respiratory failure, unspecified whether with hypoxia or hypercapnia; Z99.11 Dependence on respirator [ventilator] status; L89.152 Pressure ulcer of sacral region, stage 2; G61.0 Guillain-Barre syndrome; J84.10 Pulmonary fibrosis, unspecified; D69.6 Thrombocytopenia, unspecified; E86.0 Dehydration; Z43.0 Encounter for attention to tracheostomy; R13.10 Dysphagia, unspecified; D64.9 Anemia, unspecified; E87.6 Hypokalemia; I10 Essential (primary) hypertension; E11.9 Type 2 diabetes mellitus without complications; Z88.1 Allergy status to other antibiotic agents; Z88.0 Allergy status to penicillin; Z43.3 Encounter for attention to colostomy; Y83.3 Surgical operation with formation of external stoma as the cause of abnormal reaction of the patient, or of later complication, without mention of misadventure at the time of the procedure; Z86.73 Personal history of transient ischemic attack (TIA), and cerebral infarction without residual deficits; E78.00 Pure hypercholesterolemia, unspecified
CPT/HCPCS: 36415; 36600; 71045; 74018; 80048; 80053; 82270; 82378; 82607; 82728; 82746; 82803; 82962; 83540; 83550; 83735; 84100; 84439; 84443; 85007; 85025; 85044; 85610; 85730; 86850; 86900; 86901; 87081; 93005; 94002; 94003; 94664; 99285; J1815; J8499

== ENCOUNTER 2018-12-07 13:14 | Inpatient (IN) | payer MEDICARE ==
[~2018-12-07] VITALS: Ht 172.7 cm; Wt 65.3 kg
[~2018-12-07 13:14] MED LIST changes: +ACETAMINOPHEN325 M1 GT; +ARTIFICIAL TEAR15 ML BOTH EYES; +ATORVASTATIN CA40 MG GT; +FERROUS SU220 MG/53 GT; +HIBICLENS118 ML TP; +METFORMIN HCL500 M1 GT; +MULTI-VITAMIN-1 EACH GT; +TRADJENTA5 MG GT; +VITAMIN D400 INTLU GT; +ZANTAC150 MG GT; +ZINC SULFATE220 M1 GT; +ZOFRAN4 M3 GT
[2018-12-07] MEDS ORDERED: ACIDOPHILUS1 EAC7 PO (13:21)
[2018-12-07] MEDS ORDERED: NORCO 5-325 TA1 EACH ORAL (13:21)
[2018-12-07 13:53] VITALS: BP 92/62
--- NOTE | 2018-12-07 14:00 | Diagnostic Imaging Report ---
Indication: Dyspnea Technique: One view of the chest Comparison: 11/22/2017 Findings: Right upper lobe scarring and bronchiectasis, generalized bronchial wall thickening and chronic appearing interstitial prominence are stable. Blunting of left costophrenic angle is again demonstrated. No new infiltrates. Heart size is normal. Tracheostomy is again demonstrated Impression: Probable small left pleural effusion, also evident on prior study 11/22/2017 Bilateral interstitial disease, unchanged, suspect chronic. Correlate with clinical findings
[2018-12-07 14:14] LABS: HEMATOCRIT 29.1 % (42.0-52.0); MEAN CORPUSCULAR VOLUME 98 FL (80-99); PLATELET COUNT 246 K/UL (150-450); RED BLOOD COUNT 2.95 M/UL (4.70-6.10); RED CELL DISTRIBUTION WIDTH 15.4 % (11.6-14.8); WHITE BLOOD COUNT 10.1 K/UL (4.8-10.8)
[2018-12-07 14:34] LABS: ANION GAP 16 mmol/L (5-15); BLOOD UREA NITROGEN 161 mg/dL (7-18); CALCIUM 10.2 MG/DL (8.5-10.1); CARBON DIOXIDE 19 MMOL/L (21-32); CHLORIDE 87 MMOL/L (98-107); CREATININE 1.9 MG/DL (0.55-1.30); POTASSIUM 4.8 MMOL/L (3.5-5.1); SODIUM 122 MMOL/L (136-145)
[2018-12-07 14:38] LABS: ALANINE AMINOTRANSFERASE 77 U/L (12-78); ALBUMIN 2.1 G/DL (3.4-5.0); ALBUMIN/GLOBULIN RATIO 0.3 (1.0-2.7); ALKALINE PHOSPHATASE 193 U/L (46-116); ASPARTATE AMINO TRANSFERASE 115 U/L (15-37); BILIRUBIN,TOTAL 0.5 MG/DL (0.2-1.0); CKMB < 0.5 NG/ML (0.0-3.6); CREATINE KINASE 56 U/L (26-308)
--- NOTE | 2018-12-07 14:50 | NUR ---
ED Nurse Note: Patient's urine sent down.
--- NOTE | 2018-12-07 14:52 | Emergency Room Report ---
History of Present Illness General Chief Complaint: Abnormal Labs Source: Medical Record, EMS Present Illness HPI 73-year-old male presents ED for evaluation. Patient brought in by EMS for abnormal labs. Coming from [facility]. BUN and creatinine were elevated. Sodium also low. Patient is trach/vent. History of CVA. Nonverbal at baseline. No signs of distress. Unable to provide any additional history at this time. Afebrile. No other aggravating relieving factors. No other associated symptoms Allergies: Coded Allergies: PENICILLINS (Unverified Allergy, Unknown, 02/26/16) POLYMYXIN B (Unverified Allergy, Unknown, 02/26/16) VANCOMYCIN (Unverified Allergy, Unknown, 02/26/16) Patient History Past Medical History: DM, HTN, CVA/TIA Past Surgical History: other - trach/vent Pertinent Family History: none Social History: Denies: smoking, alcohol use, drug use Immunizations: UTD Reviewed Nursing Documentation: PMH: Agreed; PSxH: Agreed Nursing Documentation-PMH Hx Cardiac Problems: No Hx Hypertension: Yes Hx COPD: Yes - Chronic trach/venitlator Hx Diabetes: Yes Hx Cancer: No Hx Gastrointestinal Problems: Yes - gtube Hx Neurological Problems: Yes - guillian-barre Hx Cerebrovascular Accident: Yes - quadriplegia Hx Guillian-[place] Syndrome: Yes Hx Speech Problem: Yes - VENT DEPENDENT Hx Dysphasia: Yes Review of Systems All Other Systems: limited Physical Exam Vital Signs Date Time Temp Pulse Resp B/P (MAP) Pulse Ox O2 Delivery O2 Flow Rate FiO2 12/07/18 13:10 92 33 28 12/07/18 13:10 Mechanical Ventilator 15.0 12/07/18 13:14 97.9 100/62 97 Sp02 EP Interpretation: reviewed, normal General Appearance: no apparent distress, other - nonverbal Head: normocephalic ENT: normal ENT inspection Neck: tracheotomy Respiratory: chest non-tender, lungs clear, normal breath sounds, speaking full sentences Cardiovascular #1: regular rate, rhythm, no edema Gastrointestinal: normal inspection Rectal: deferred Genitourinary: no CVA tenderness Musculoskeletal: normal inspection Neurologic: other - nonverbal Psychiatric: other - nonverbal Skin: normal inspection Lymphatic: normal inspection Medical Decision Making Diagnostic Impression: Primary Impression: Renal failure Qualified Codes: N19 - Unspecified kidney failure Additional Impressions: Hyponatremia Acute and chronic respiratory failure Hyperglycemia ER Course Hospital Course 73 yo M presents to ED with abnormal labs; elevated BUN and Cr Differential diagnoses include: Pneumonia, UTI, sepsis, dehydration, SD/ unstable angina, failure to thrive Clinical course Patient placed on stretcher. 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 After initial history and physical, I ordered labs, IV fluids, EKG, chest x-ray, blood cultures, UA. Labs - no leukocytosis, hb/hct stable, Na 122, BUN 169, Cr 1.9, Glucose 489 - no evidence of DKA EKG - NSR, no acute ischemic changes interpreted by me CXR - no acute process patient intially had borderline low BP - given fluid boluses with improvement in BP. Case discussed with Dr Hutchins and they agreed to admit patient to their service for further care and support I feel this is a highly complex case requiring extensive working including EKG/ Rhythm strip, Xray/CT/US, Blood/urine lab work, repeat exams while in ED, and administration of strong opiates/narcotics for pain control, admission to hospital or close patient follow up. Diagnosis - renal failure, hyponatremia, acute and chronic respiratory failure, hyperglycemia Patient admitted to SDU in serious condition Labs Test 12/07/18 13:30 White Blood Count 10.1 K/UL (4.8-10.8) Red Blood Count 2.95 M/UL (4.70-6.10) Hemoglobin 11.0 G/DL (14.2-18.0) Hematocrit 29.1 % (42.0-52.0) Mean Corpuscular Volume 98 FL (80-99) Mean Corpuscular Hemoglobin 37.2 PG (27.0-31.0) Mean Corpuscular Hemoglobin Concent 37.7 G/DL (32.0-36.0) Red Cell Distribution Width 15.4 % (11.6-14.8) Platelet Count 246 K/UL (150-450) Mean Platelet Volume 12.7 FL (6.5-10.1) Neutrophils (%) (Auto) % (45.0-75.0) Lymphocytes (%) (Auto) % (20.0-45.0) Monocytes (%) (Auto) % (1.0-10.0) Eosinophils (%) (Auto) % (0.0-3.0) Basophils (%) (Auto) % (0.0-2.0) Differential Total Cells Counted 100 Neutrophils % (Manual) 91 % (45-75) Lymphocytes % (Manual) 6 % (20-45) Monocytes % (Manual) 2 % (1-10) Eosinophils % (Manual) 1 % (0-3) Basophils % (Manual) 0 % (0-2) Band Neutrophils 0 % (0-8) Platelet Estimate Adequate Platelet Morphology Giant Platelets Occasional Anisocytosis 1+ Sodium Level 122 MMOL/L (136-145) Potassium Level 4.8 MMOL/L (3.5-5.1) Chloride Level 87 MMOL/L (98-107) Carbon Dioxide Level 19 MMOL/L (21-32) Anion Gap 16 mmol/L (5-15) Blood Urea Nitrogen 161 mg/dL (7-18) Creatinine 1.9 MG/DL (0.55-1.30) Estimat Glomerular Filtration Rate mL/min (>60) Glucose Level 489 MG/DL (74-106) Lactic Acid Level 0.90 mmol/L (0.4-2.0) Calcium Level 10.2 MG/DL (8.5-10.1) Total Bilirubin 0.5 MG/DL (0.2-1.0) Aspartate Amino Transf (AST/SGOT) 115 U/L (15-37) Alanine Aminotransferase (ALT/SGPT) 77 U/L (12-78) Alkaline Phosphatase 193 U/L (46-116) Total Creatine Kinase 56 U/L (26-308) Creatine Kinase MB < 0.5 NG/ML (0.0-3.6) Creatine Kinase MB Relative Index 0.8 Troponin I 0.017 ng/mL (0.000-0.056) Pro-B-Type Natriuretic Peptide 625 pg/mL (0-125) Total Protein 8.2 G/DL (6.4-8.2) Albumin 2.1 G/DL (3.4-5.0) Globulin 6.1 g/dL Albumin/Globulin Ratio 0.3 (1.0-2.7) EKG Diagnostic Results Rate: normal Rhythm: NSR ST Segments: no acute changes ASA given to the pt in ED: No Rhythm Strip Diag. Results EP Interpretation: yes Rhythm: NSR, no PVC's, no ectopy Chest X-Ray Diagnostic Results Chest X-Ray Diagnostic Results : Chest X-Ray Ordered: Yes # of Views/Limited/Complete: 1 View Indication: Other EP Interpretation: Yes Interpretation: no consolidation, no pneumothorax, other - small L pleural effusion Impression: Other - L pleural effusion Electronically Signed by: x-ray signature Last Vital Signs Date Time Temp Pulse Resp B/P (MAP) Pulse Ox O2 Delivery O2 Flow Rate FiO2 12/07/18 13:53 97.9 89 29 92/62 99 Mechanical Ventilator 15.0 28 Status: improved Disposition: ADMITTED INPATIENT Condition: Serious Referrals: Neema Hutchins MD (PCP) Moreno Carcamo MD Dec 07, 2018 14:52
[2018-12-07 15:16] LABS: APPEARANCE,URINE CLEAR; BILIRUBIN, URINE NEGATIVE (NEGATIVE); COLOR,URINE PALE YELLOW; GLUCOSE, URINE (UA) 2+ (NEGATIVE); KETONES,URINE NEGATIVE (NEGATIVE); LEUKOCYTE ESTERASE ,URINE 3+ (NEGATIVE); NITRITE,URINE NEGATIVE (NEGATIVE); PH,URINE 6 (4.5-8.0); PROTEIN,URINE 2+ (NEGATIVE); UROBILINOGEN,URINE NORMAL MG/DL (0.0-1.0)
--- NOTE | 2018-12-07 15:51 | NUR ---
ED Nurse Note: report given Mindy SCHILLING, endorsed that ERMD Dr. Stuart was made aware of patient's UA result with mod. bacteria, nno, also glucose level of >400, nno. No belongings.
--- NOTE | 2018-12-07 16:21 | NUR ---
ED Nurse Note: Tranferred patient up to do MIKE without complication , report given to Mindy SCHILLING endorsed care to Mindy SCHILLING
--- NOTE | 2018-12-07 16:22 | NUR ---
NURSE NOTES: Endorsed to Mindy SCHILLING that patient has IV site on the left feet.
[2018-12-07] MEDS ORDERED: Albuterol/Ipratropium 3ml neb HHN PRN (17:00)
[2018-12-07] MEDS ORDERED: Miralax 17gm pkt ORAL PRN (17:00)
[2018-12-07] MEDS ORDERED: Nitroglycerin Subl 0.4mg tab SL PRN (17:00)
[2018-12-07 17:55] LABS: BILIRUBIN, URINE NEGATIVE (NEGATIVE); COLOR,URINE PALE YELLOW; GLUCOSE, URINE (UA) 3+ (NEGATIVE); KETONES,URINE NEGATIVE (NEGATIVE); LEUKOCYTE ESTERASE ,URINE 3+ (NEGATIVE); NITRITE,URINE NEGATIVE (NEGATIVE); PH,URINE 7 (4.5-8.0); PROTEIN,URINE 2+ (NEGATIVE); UROBILINOGEN,URINE NORMAL MG/DL (0.0-1.0)
[2018-12-07 18:05] LABS: APPEARANCE,URINE SLIGHTLY CLOUDY
--- NOTE | 2018-12-07 19:20 | NUR ---
NURSE NOTES: Pt was admitted today from [facility], report received from Haven SCHILLING. pt appears to have a neuro assessment of eyes opening, and non verbal. as of now the Pt is in SR. pt is on a track to vent setting with Portex of 7, AC 18, and a TV of 500 with a Fio2 28. pt is running Glucerna 1.2 at 25/Ml with a order for only 24hrs. the pt has a Right Lower Quadrant Colostomy bag that is in tact. the pt presents with a SupraPubic catheter. will monitor sacrum, and R and L buttox for advancements of pressure ulcers. pt appears to be in no respiratory distress with a saturation of 100% O2. will continue plan of care.
--- NOTE | 2018-12-07 19:20 | NUR ---
HAND-OFF: Report given to Kita Smith RN.
--- NOTE | 2018-12-07 19:21 | NUR ---
NURSE NOTES: Received report from SHAKIR Thorne. Patient admitted to SDU under the care of Dr. Hutchins with admitting diagnosis of dehydration and elevated BUN. Patient awake and alert, able to track eyes, nonverbal. Trach to vent with settings of AC 14, TV 500, FiO2 28%, PEEP 5, no s/s of respiratory distress noted. GT intact and flushed. RLQ colostomy and suprapubic catheter patent and draining. Wound care done on sacral and bilateral buttocks. Right wrist 22g saline lock in place and asymptomatic. Left foot IV removed. Bed locked in lowest position with side rails up x 3. All needs attended to. Will continue to monitor.
[2018-12-07 19:24] LABS: CREATINE KINASE 61 U/L (26-308)
[2018-12-07 20:00] VITALS: BP 95/61
[2018-12-07] MEDS: Heparin 5000 units/ml inj SUBQ SCH (20:43)
[2018-12-08] VITALS (13 sets, daily range): BP systolic 50–103; BP diastolic 35–63
[2018-12-08 05:48] LABS: HEMATOCRIT 28.2 % (42.0-52.0); HEMOGLOBIN 9.9 G/DL (14.2-18.0); MEAN CORPUSCULAR VOLUME 97 FL (80-99); PLATELET COUNT 139 K/UL (150-450); RED BLOOD COUNT 2.89 M/UL (4.70-6.10); RED CELL DISTRIBUTION WIDTH 14.9 % (11.6-14.8); WHITE BLOOD COUNT 7.2 K/UL (4.8-10.8)
[2018-12-08 06:19] LABS: ALANINE AMINOTRANSFERASE 103 U/L (12-78); ALBUMIN 1.9 G/DL (3.4-5.0); ALBUMIN/GLOBULIN RATIO 0.3 (1.0-2.7); ALKALINE PHOSPHATASE 89 U/L (46-116); ANION GAP 14 mmol/L (5-15); ASPARTATE AMINO TRANSFERASE 163 U/L (15-37); BILIRUBIN,TOTAL 0.6 MG/DL (0.2-1.0); BLOOD UREA NITROGEN 123 mg/dL (7-18); CARBON DIOXIDE 19 MMOL/L (21-32); CHLORIDE 100 MMOL/L (98-107); CREATININE 1.5 MG/DL (0.55-1.30); POTASSIUM 4.4 MMOL/L (3.5-5.1); SODIUM 133 MMOL/L (136-145)
--- NOTE | 2018-12-08 07:00 | NUR ---
Received Patient on Vent ACVC RR 18, VT 500, Fio2 35%, PEEP +5. Patient is trached with a cuffed Portex 7 tracheostomy tube, secured with tracheostomy ties. Bilateral rhonchi heard upon auscultation. Suction thick white/ bloody secretions via tracheostomy as needed. Patient obtundent, lying comfortable in bed. Vent plugged into red outlet. Alarms on and audible. Will continue to monitor the patient throughout the day.
--- NOTE | 2018-12-08 07:10 | NUR ---
NURSE NOTES: Report received from Sarah Smith RN /Roland RN.Pt in bed with trach tube to Mech vent ,on current settings,tolerating well,no resp distress presented,no signs of pain or discomfort,S-Tach on the monitor,GTF Glucerna 1.2 at 35 ml/hr x20 hrs,goal is 65 ml/hr,Colostomy to RLQ intact,supra pubic cath in placed draining yellow urine,IV site to RW intact with IVF NS running at 150 ml/hr,skin warm and dry,SR up x2 HOB elevated,bed lock in lowest position will continue with plans of care,
--- NOTE | 2018-12-08 07:20 | NUR ---
HAND-OFF: Report given to Reshma Sotelo RN.
[2018-12-08] MEDS: Allopurinol 100mg Tab ORAL SCH (08:49)
[2018-12-08] MEDS: Acetaminophen 650mg/20.3ml GT PRN ×2 (08:58→20:40)
[2018-12-08] MEDS: Heparin 5000 units/ml inj SUBQ SCH ×2 (09:15→20:34)
--- NOTE | 2018-12-08 10:07 | NUR ---
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
--- NOTE | 2018-12-08 10:30 | NUR ---
NURSE NOTES: systems mgr at bedside,reassessed wounds,new wounds found ,photos taken and ,measured,drsg changed
--- NOTE | 2018-12-08 10:46 | History and Physical Report ---
DATE OF ADMISSION: 12/07/2018 REASON FOR ADMISSION: This is one of several admissions to [facility] of 73-year-old patient because of severe oral azotemia and acute renal failure. HISTORY OF PRESENT ILLNESS: The patient is a resident of an extended care facility subacute unit where he has been in stable condition over the last several years. He is known to have several chronic medical syndromes, but he has been stable on the current medication. Over the last several days, the patient became progressively swollen. CBC and BMP taken today revealed that the patient has severe dehydration with a BUN of 161 and a creatinine of . Sodium is 122. The patient was admitted. PAST MEDICAL HISTORY: Five days ago, the patient developed that was not improving in spite of treatment . He has been respirator dependent and fed via gastrostomy tube now for several years and has been quite stable. In addition, the patient is known to have hypothyroidism 50 mcg of levothyroxine. He has hyperlipidemia and hypervitaminosis D. ALLERGIES: The patient is allergic to penicillin, polymyxin, and vancomycin. FAMILY HISTORY: Both parents from cardiovascular disease. He has no brother and no sisters. He has 1 daughter in good health. SOCIAL HISTORY: He is . He was born [place]. He has been in [place] for many years. Prior to that total disability. 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 HABITS: The patient does not smoke, drink, or use illicit drugs. REVIEW OF SYSTEMS: CONSTITUTIONAL: The patient denied any chest pain, shortness of breath, palpitations, or dizziness. The patient denied any cough, wheezing, or expectoration. GASTROINTESTINAL: His appetite is moderate. His weight is stable. He has no dysphagia, no dyspepsia, and no bowel movement disorder. GENITOURINARY: The patient denies any dysuria, frequency, or incontinence. No nocturia. cold extremities, photosensitivity, dry eyes, or alopecia. DYNAMIC BALANCER: His sleep is of good quality. He has no numbness, tingling, seizure disorder, and has no headache. PHYSICAL EXAMINATION: VITAL SIGNS: Blood pressure is 95/61, his pulse is 94, respirations of 24, and temperature of 99. HEENT: Eyes were normal. Pupils were round, equal, and reactive to light. Sclerae were white. Conjunctivae were pink. Extraocular movements were normal. Temporal arteries were palpable bilaterally. There was no bilateral temporal wasting. Visual angelo to confrontation were normal. Neglect sign was negative. ENT, mucous membranes were not dehydrated. Auditory canals were clear and tympanic membranes could not be visualized. Nasal cavity was not congested. Nasal septum was intact. Soft palate was free of ulcerations. Pharynx was clear from exudate or tonsillar hypertrophy. Uvula mike to phonation. Tongue was moist, midline, and normally papillated. NECK: Supple. There was no goiter. No mass. No lymphadenopathy. There was no JVD. No bruits. Carotid upstroke was 2+. LUNGS: Clear. HEART: PMI was in the fifth left intercostal space in midclavicular line. There was normal S1 and normal S2. There was no murmur. No arrhythmia. No S3. No S4. No pericardial rub. ABDOMEN: Soft and nontender without organomegaly. There were no masses palpable. Normal bowel sounds without bruits. There was no guarding. No rebound tenderness. No ascites. No hernia. No CVA tenderness. Liver span was 8 cm, mostly nontender. EXTREMITIES: No cyanosis, no clubbing, and no edema. Extremities were warm. NEUROLOGICAL: Reflexes of biceps, triceps, and brachioradialis were present. Patellar retinaculum was present. Plantars were in flexion. Cranial nerves II through XII were symmetric and equal. Cerebellar function, there was no tremor. No nystagmus. No extrapyramidal rigidity. Sensory exam to pinprick, cotton touch, position are grossly normal. Motor strength, the patient has paraplegia with strength of 2/5 against resistance in proximal and distal muscles. LABORATORY DATA: His hemoglobin is 11.0, hematocrit 29.1 with MCV of 98, WBC of 10.1, and platelets are 246. His BUN and creatinine are 161 and 1.9 respectively. His sodium is 122, potassium 4.8, chloride 87, and CO2 was 19. His lactic acid was 0.9. His uric acid was 12.5. His calcium was 10.2. SGOT is 115 and SGPT was 77. Troponin was 0.07. ProBNP was . Albumin is 2.1 was 6.1. IMPRESSION AND PLAN: Severe prerenal azotemia. We will start on normal saline at 150 mL/hr. The patient has hypouricemia. Allopurinol 1 mg daily will be given. Repeat laboratory tests will be done in the a.m. Pulmonary security system sales consultant was called to assist in the management of this case. Neema Hutchins M.D. DR: PIERCE JOB#: [id number] CC:
--- NOTE | 2018-12-08 11:42 | Consultation ---
History of Present Illness General Date patient seen: Dec 08, 2018 Chief Complaint: Abnormal Labs Present Illness HPI 72-year-old male with PMH of trach, PEG, chronic respiratory failure, dysphagia , HTN anemia, presented to ED for evaluation of hypotension and possible sepsis. Allergies: Coded Allergies: PENICILLINS (Unverified Allergy, Unknown, 02/26/16) POLYMYXIN B (Unverified Allergy, Unknown, 02/26/16) VANCOMYCIN (Unverified Allergy, Unknown, 02/26/16) Medication History Scheduled Acetaminophen* (Acetaminophen 325MG Tablet*), 650 MG GT DAILY, (Reported) Ascorbic Acid* (Vitamin C*), 500 MG GT DAILY, (Reported) Aspirin* (Aspir 81*), 81 MG GT DAILY, (Reported) Atenolol* (Tenormin*), 50 MG ORAL BID, (Reported) Atorvastatin Calcium* (Atorvastatin Calcium*), 40 MG GT BEDTIME, (Reported) Aztreonam (Azactam), 1 GM IVPB Q8HR, (Reported) Chlorhexidine Gluconate (Chlorhexidine Gluconate), 15 ML MT TWICE A DAY, ( Reported) Cholecalciferol (Vitamin D3) (Vitamin D-400*), 1,000 UNITS ORAL DAILY, (Reported ) Citalopram Hydrobromide (Celexa), 10 MG GT DAILY, (Reported) Docusate Sodium (Docusate Sodium), 100 MG GT TWICE A DAY, (Reported) Esomeprazole Magnesium (Nexium), 40 MG GT DAILY, (Reported) Ferrous Sulfate (Feosol), 300 MG GT BID, (Reported) Heparin Sodium,Porcine/Ns/Pf (Heparin), 5,000 UNIT SUBQ Q12HR, (Reported) Linezolid* (Zyvox*), 600 MG ORAL EVERY 12 HOURS, (Reported) Metformin Hcl* (Metformin Hcl*), 500 MG GT TWICE A DAY, (Reported) Ranitidine Hcl* (Zantac*), 150 MG ORAL TWICE A DAY, (Reported) Ranitidine Hcl* (Zantac*), 150 MG GT TWICE A DAY, (Reported) Simvastatin (Zocor), 40 MG GT BEDTIME, (Reported) Vitamin D (Vitamin D3), 5,000 UNITS GT DAILY, (Reported) Scheduled PRN Acetaminophen (Acetaminophen), 650 MG GT EVERY 4 HOURS PRN for For Pain, ( Reported) Bisacodyl (Bisacodyl), 10 MG RC for Constipation, (Reported) Guaifenesin/Dextromethorphan (Guaifenesin Dm Syrup), 10 ML GT for For Cough, ( Reported) Hydrocodone Bit/Acetaminophen 5-325* ([place] 5-325*), 1 TAB ORAL Q4H PRN for For Pain, (Reported) Magnesium Hydroxide (Milk of Magnesia), 30 ML ORAL DAILY PRN for Constipation, ( Reported) Morphine Sulfate/Pf (Morphine 4 Mg/Ml Carpuject), 4 MG IV Q4HR PRN for For Pain, (Reported) Na Phos,M-B/Na Phos,Di-Ba (Fleet Enema), 118 ML RC for Constipation, (Reported) Ondansetron* (Zofran*), 4 MG GT Q4HR PRN for Nausea & Vomiting, (Reported) Polyethylene Glycol* (Miralax*), 17 GM ORAL DAILY PRN for Constipation, ( Reported) [lorazepam], 2 MG IV for Agitation, (Reported) Miscellaneous Medications Acidophilus/Bulgaricus (Floranex Tablet), 1 EACH GT, (Reported) Chlorhexidine Gluconate* (Hibiclens*), 118 ML TP, (Reported) Cranberry Fruit Concentrate (Cranberry), 450 MG GT, (Reported) Dextran 70/Hypromellose (Artificial Tears Eye Drops*), 1 DROP BOTH EYES, ( Reported) Dextrose/Sod Chloride (Dextrose 5%-0.45% NaCl IV Soln), 40 ML IV, (Reported) Ferrous Sulfate (Ferrous Sulfate), 50 MG GT, (Reported) Ferrous Sulfate (Ferrous Sulfate), 220 MG GT, (Reported) Ipratropium/Albuterol Sulfate (DuoNeb 0.5-3(2.5)mg/3ml), 3 ML HHN, (Reported) Lactobacillus Acidophilus (Acidophilus), 1 EACH PO, (Reported) Linagliptin (Tradjenta), 5 MG GT, (Reported) Metoclopramide Hcl (Metoclopramide Hcl*), 5 MG GT, (Reported) Multivit-Min/Iron Fum/Folic AC (Zyimi-Dqufmvs-Iwrwdatn Tablet), 1 EACH GT, ( Reported) Patient History Healthcare decision maker Shawanda Brooke (daughter) Resuscitation status Full Code Advanced Directive on File Past Medical/Surgical History Past Medical/Surgical History: (1) SBO (small bowel obstruction) (2) Feeding by G-tube (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 (4) Diabetes mellitus, type II (5) Hypertension (6) Colostomy care (7) Cerebral vascular disease (8) Decubitus ulcer of sacral region, stage 2 Review of Systems All Other Systems: negative except mentioned in HPI Physical Exam General Appearance: WD/WN, no apparent distress Lines, tubes and drains: peripheral HEENT: normocephalic, atraumatic Neck: non-tender, normal alignment Respiratory/Chest: chest wall non-tender, lungs clear Cardiovascular/Chest: normal peripheral pulses, normal rate Abdomen: normal bowel sounds, non tender Genitourinary/Rectal: normal genital exam, normal rectal exam Extremities: normal range of motion Skin Exam: normal pigmentation Last 24 Hour Vital Signs Date Time Temp Pulse Resp B/P (MAP) Pulse Ox O2 Delivery O2 Flow Rate FiO2 12/08/18 09:00 110 12/08/18 08:55 110 28 35 12/08/18 08:47 113 98/57 12/08/18 08:05 Mechanical Ventilator 12/08/18 08:00 102.7 113 30 98/57 (71) 100 12/08/18 08:00 28 12/08/18 07:14 107 28 35 12/08/18 04:38 104 24 35 28 12/08/18 04:00 Mechanical Ventilator 12/08/18 04:00 99.2 101 25 100/63 (75) 100 12/08/18 04:00 28 12/08/18 03:32 98 12/08/18 03:02 94 25 35 28 12/08/18 01:15 96 30 35 28 12/08/18 00:00 99.4 93 33 103/60 (74) 100 12/08/18 00:00 Mechanical Ventilator 12/07/18 23:24 100 12/07/18 23:09 101 25 35 28 12/07/18 21:00 95 24 35 28 12/07/18 20:42 94 95/61 12/07/18 20:00 28 12/07/18 20:00 98.6 94 28 95/61 (72) 100 12/07/18 20:00 Mechanical Ventilator 12/07/18 19:01 93 29 28 28 12/07/18 17:21 91 22 28 12/07/18 16:22 100 12/07/18 16:20 97.9 89 29 92/62 99 Mechanical Ventilator 15.0 28 12/07/18 16:10 Mechanical Ventilator 12/07/18 15:51 89 29 Mechanical Ventilator 15.0 28 12/07/18 15:08 85 24 28 12/07/18 13:53 97.9 89 29 92/62 99 Mechanical Ventilator 15.0 28 12/07/18 13:14 97.9 88 24 100/62 97 Mechanical Ventilator 12/07/18 13:10 92 33 Mechanical Ventilator 15.0 28 12/07/18 13:10 92 33 28 Intake and Output 12/07/18 12/08/18 19:00 07:00 Intake Total 242.5 ml 2049.5 ml Output Total 200 ml 1300 ml Balance 42.5 ml 749.5 ml Intake Free Water 150 ml IV Total 242.5 ml 1619.5 ml Tube Feeding 280 ml Output Urine Total 200 ml 1200 ml Stool Total 100 ml Laboratory Tests Test 12/07/18 13:30 12/07/18 14:50 12/07/18 17:00 12/08/18 02:50 White Blood Count 10.1 K/UL (4.8-10.8) 7.2 K/UL (4.8-10.8) Red Blood Count 2.95 M/UL (4.70-6.10) L 2.89 M/UL (4.70-6.10) L Hemoglobin 11.0 G/DL (14.2-18.0) L 9.9 G/DL (14.2-18.0) L Hematocrit 29.1 % (42.0-52.0) L 28.2 % (42.0-52.0) L Mean Corpuscular Volume 98 FL (80-99) 97 FL (80-99) Mean Corpuscular Hemoglobin 37.2 PG (27.0-31.0) H 34.1 PG (27.0-31.0) H Mean Corpuscular Hemoglobin Concent 37.7 G/DL (32.0-36.0) H 35.0 G/DL (32.0-36.0) Red Cell Distribution Width 15.4 % (11.6-14.8) H 14.9 % (11.6-14.8) H Platelet Count 246 K/UL (150-450) 139 K/UL (150-450) L Mean Platelet Volume 12.7 FL (6.5-10.1) H 13.3 FL (6.5-10.1) H Neutrophils (%) (Auto) % (45.0-75.0) % (45.0-75.0) Lymphocytes (%) (Auto) % (20.0-45.0) % (20.0-45.0) Monocytes (%) (Auto) % (1.0-10.0) % (1.0-10.0) Eosinophils (%) (Auto) % (0.0-3.0) % (0.0-3.0) Basophils (%) (Auto) % (0.0-2.0) % (0.0-2.0) Differential Total Cells Counted 100 100 Neutrophils % (Manual) 91 % (45-75) H 86 % (45-75) H Lymphocytes % (Manual) 6 % (20-45) L 6 % (20-45) L Monocytes % (Manual) 2 % (1-10) 4 % (1-10) Eosinophils % (Manual) 1 % (0-3) 0 % (0-3) Basophils % (Manual) 0 % (0-2) 0 % (0-2) Band Neutrophils 0 % (0-8) 4 % (0-8) Platelet Estimate Adequate Decreased L Platelet Morphology Giant Platelets Occasional 1+ Anisocytosis 1+ 1+ Sodium Level 122 MMOL/L (136-145) L 133 MMOL/L (136-145) #L Potassium Level 4.8 MMOL/L (3.5-5.1) 4.4 MMOL/L (3.5-5.1) Chloride Level 87 MMOL/L (98-107) L 100 MMOL/L (98-107) Carbon Dioxide Level 19 MMOL/L (21-32) L 19 MMOL/L (21-32) L Anion Gap 16 mmol/L (5-15) H 14 mmol/L (5-15) Blood Urea Nitrogen 161 mg/dL (7-18) H 123 mg/dL (7-18) H Creatinine 1.9 MG/DL (0.55-1.30) H 1.5 MG/DL (0.55-1.30) H Estimat Glomerular Filtration Rate mL/min (>60) mL/min (>60) Glucose Level 489 MG/DL (74-106) H 244 MG/DL (74-106) #H Lactic Acid Level 0.90 mmol/L (0.4-2.0) Uric Acid 12.5 MG/DL (2.6-7.2) H Calcium Level 10.2 MG/DL (8.5-10.1) H 9.0 MG/DL (8.5-10.1) Total Bilirubin 0.5 MG/DL (0.2-1.0) 0.6 MG/DL (0.2-1.0) Aspartate Amino Transf (AST/SGOT) 115 U/L (15-37) H 163 U/L (15-37) H Alanine Aminotransferase (ALT/SGPT) 77 U/L (12-78) 103 U/L (12-78) H Alkaline Phosphatase 193 U/L (46-116) H 89 U/L (46-116) Total Creatine Kinase 61 U/L (26-308) Creatine Kinase MB < 0.5 NG/ML (0.0-3.6) Creatine Kinase MB Relative Index 0.8 Troponin I 0.017 ng/mL (0.000-0.056) Pro-B-Type Natriuretic Peptide 625 pg/mL (0-125) H Total Protein 8.2 G/DL (6.4-8.2) 7.4 G/DL (6.4-8.2) Albumin 2.1 G/DL (3.4-5.0) L 1.9 G/DL (3.4-5.0) L Globulin 6.1 g/dL 5.5 g/dL Albumin/Globulin Ratio 0.3 (1.0-2.7) L 0.3 (1.0-2.7) L Urine Color Pale yellow Pale yellow Urine Appearance Clear Slightly cloudy Urine pH 6 (4.5-8.0) 7 (4.5-8.0) Urine Specific [place] 1.005 (1.005-1.035) 1.005 (1.005-1.035) Urine Protein 2+ (NEGATIVE) H 2+ (NEGATIVE) H Urine Glucose (UA) 2+ (NEGATIVE) H 3+ (NEGATIVE) H Urine Ketones Negative (NEGATIVE) Negative (NEGATIVE) Urine Blood 4+ (NEGATIVE) H 5+ (NEGATIVE) H Urine Nitrite Negative (NEGATIVE) Negative (NEGATIVE) Urine Bilirubin Negative (NEGATIVE) Negative (NEGATIVE) Urine Urobilinogen Normal MG/DL (0.0-1.0) Normal MG/DL (0.0-1.0) Urine Leukocyte Esterase 3+ (NEGATIVE) H 3+ (NEGATIVE) H Urine RBC 5-10 /HPF (0 - 0) H 20-30 /HPF (0 - 0) H Urine WBC 5-10 /HPF (0 - 0) H 15-20 /HPF (0 - 0) H Urine Squamous Epithelial Cells None /LPF (NONE/OCC) None /LPF (NONE/OCC) Urine Calcium Oxalate Crystals Few /LPF (NONE) Urine Amorphous Sediment Few /LPF (NONE) H Urine Bacteria Moderate /HPF (NONE) H Moderate /HPF (NONE) H Urine Granular Casts 2-4 /LPF (NONE) H Urine Eosinophils None seen (NONE SEEN) Urine Random Creatinine Pending Urine Random Microalbumin Pending Urine Random Sodium 22 mmol/L (20-110) Urine Creatinine 15.5 MG/DL (30.0-125.0) L Urine Microalbumin/Creatinine Ratio Pending Urine Potassium Timed 17 mmol/L (12-62) Microbiology Date/Time Source Procedure Growth Status 12/07/18 13:30 Blood Blood Culture - Preliminary Resulted 12/07/18 14:50 Urine,Clean Catch Urine Culture - Preliminary Resulted 12/07/18 15:05 Rectum Received Height (Feet): 5 Height (Inches): 8.00 Weight (Pounds): 135 Medications Current Medications Medications (Trade) Dose Ordered Sig/[place] Route PRN Reason Start Time Stop Time Status Last Admin Dose Admin Acetaminophen (Tylenol) 650 mg Q4H PRN GT For Pain 12/07/18 17:00 01/06/19 16:59 12/08/18 08:58 Acetaminophen (Tylenol) 650 mg Q4H PRN ORAL fever 12/07/18 17:00 01/06/19 16:59 Albuterol/ Ipratropium (Albuterol/ Ipratropium) 3 ml Q4H PRN HHN Shortness of Breath 12/07/18 17:00 12/12/18 16:59 Allopurinol (Zyloprim) 100 mg DAILY ORAL 12/08/18 09:00 01/07/19 08:59 12/08/18 08:49 Atenolol (Tenormin) 50 mg Q12HR ORAL 12/07/18 21:00 01/06/19 20:59 Heparin Sodium (Porcine) (Heparin 5000 units/ml) 5,000 units EVERY 12 HOURS SUBQ 12/07/18 21:00 01/06/19 20:59 12/08/18 09:15 Morphine Sulfate (Morphine Sulfate) 2 mg Q4H PRN IVP Moderate Pain (Pain Scale 4-6) 12/07/18 17:00 12/14/18 16:59 Nitroglycerin (Ntg) 0.4 mg Q5M PRN SL Prn Chest Pain 12/07/18 17:00 01/06/19 16:59 Ondansetron HCl (Zofran) 4 mg Q6H PRN IVP Nausea & Vomiting 12/07/18 17:00 01/06/19 16:59 Polyethylene Glycol (Miralax) 17 gm DAILYPRN PRN ORAL Constipation 12/07/18 17:00 01/06/19 16:59 Sodium Chloride 1,000 ml @ 150 mls/hr Q6H40M IV 12/07/18 17:15 01/06/19 17:14 12/08/18 05:47 Temazepam (Restoril) 15 mg HSPRN PRN ORAL Insomnia 12/07/18 17:00 12/14/18 16:59 Assessment/Plan Problem List: (1) Acute and chronic respiratory failure ICD Codes: J96.20 - Acute and chronic respiratory failure, unspecified whether with hypoxia or hypercapnia SNOMED: 96120285, 70515199 (2) ATN (acute tubular necrosis) ICD Codes: N17.0 - Acute kidney failure with tubular necrosis SNOMED: 35816187 (3) Decubitus ulcer of sacral region, stage 2 ICD Codes: L89.152 - Pressure ulcer of sacral region, stage 2 SNOMED: 634615179, 603836693 (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 Codes: 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 - Guillain-[place] syndrome SNOMED: 89900155, 177722073 (5) Diabetes mellitus, type II ICD Codes: E11.9 - Type 2 diabetes mellitus without complications SNOMED: 02027501 (6) Feeding by G-tube ICD Codes: Z93.1 - Gastrostomy status SNOMED: 839502589, 066824579 (7) Colostomy care ICD Codes: Z43.3 - Encounter for attention to colostomy SNOMED: 223319050 (8) Cerebral vascular disease ICD Codes: I67.9 - Cerebrovascular disease, unspecified SNOMED: 06111875 Respiratory: monitor respiratory rate, adjust FIO2, CXR Cardiac: continue to monitor HR/BP Renal: F/U I&O, keep IV fluid, check electrolytes Infectious Disease: check cultures Gastrointestinal: continue feedings/current rate, abdominal imaging Endocrine: monitor blood sugar, check HgA1C Neurologic: PRN Ativan, PRN Morphine Prophylaxis: Protonix, Heparin 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
--- NOTE | 2018-12-08 12:12 | NUR ---
RD ASSESSMENT & RECOMMENDATIONS SEE CARE ACTIVITY FOR COMPLETE ASSESSMENT DAILY ESTIMATED NEEDS: Needs based on critical care, wound/ 63kg 22-30 kcals/kg 4914-2149 total kcals 1.25-2 g protein/kg 79-126 g total protein 25-30 mL/kg 0474-0766 total fluid mLs NUTRITION DIAGNOSIS: 1) Increased kcal and protein needs r/t wound healing as evidenced by pt w/ partial and full thickness injuries to sacrum/ buttocks, pending full WC eval. 2) Swallowing difficulty R/T respiratory status as evidenced by pt is trach/vent dep, w/ PEG. CURRENT TF:Glucerna 1.2 @65ml/hr x20 hrs ENTERAL NUTRITION RECOMMENDATIONS: Glucerna 1.2 @ 60ml/hr x 24 hrs to provide 1440ml, 1728 kcal, 86g prot, 1159ml free water - Rec Glucerna 1.2, advance 10ml q 4-6 hrs as tolerated to goal rate. - Flush per MD/ keep HOB >30degrees ADDITIONAL RECOMMENDATIONS: * RE calibrate bed scale wt for accurate CBW * REC HYPOGLYCEMICS for BG CONTROL * Wound care: add MITCHELL BID + Vit C 250mg BID * Check lytes daily, replete as needed
--- NOTE | 2018-12-08 13:02 | NUR ---
NURSE NOTES: Pt stable,no resp distress presented,turned and repositioned,kept dry and clean,oral/tracheal secretions suctioned.
--- NOTE | 2018-12-08 15:06 | Consultation ---
History of Present Illness General Date patient seen: Dec 08, 2018 Chief Complaint: Abnormal Labs Present Illness HPI 73 y/o M with hx of dysphagia s/p peg, COPD, GBS, quadriplegia, chronic resp failure s/p trach, HTN, CVA, nonverbal, anemia, SNF resident presents to ED on with hypotension, anasarca and evaluation for possible sepsis. Upon admission , BUN and Cr elevated, hyponateremic Allergies: Coded Allergies: PENICILLINS (Unverified Allergy, Unknown, 02/26/16) POLYMYXIN B (Unverified Allergy, Unknown, 02/26/16) VANCOMYCIN (Unverified Allergy, Unknown, 02/26/16) Medication History Scheduled Acetaminophen* (Acetaminophen 325MG Tablet*), 650 MG GT DAILY, (Reported) Ascorbic Acid* (Vitamin C*), 500 MG GT DAILY, (Reported) Aspirin* (Aspir 81*), 81 MG GT DAILY, (Reported) Atenolol* (Tenormin*), 50 MG ORAL BID, (Reported) Atorvastatin Calcium* (Atorvastatin Calcium*), 40 MG GT BEDTIME, (Reported) Aztreonam (Azactam), 1 GM IVPB Q8HR, (Reported) Chlorhexidine Gluconate (Chlorhexidine Gluconate), 15 ML MT TWICE A DAY, ( Reported) Cholecalciferol (Vitamin D3) (Vitamin D-400*), 1,000 UNITS ORAL DAILY, (Reported ) Citalopram Hydrobromide (Celexa), 10 MG GT DAILY, (Reported) Docusate Sodium (Docusate Sodium), 100 MG GT TWICE A DAY, (Reported) Esomeprazole Magnesium (Nexium), 40 MG GT DAILY, (Reported) Ferrous Sulfate (Feosol), 300 MG GT BID, (Reported) Heparin Sodium,Porcine/Ns/Pf (Heparin), 5,000 UNIT SUBQ Q12HR, (Reported) Linezolid* (Zyvox*), 600 MG ORAL EVERY 12 HOURS, (Reported) Metformin Hcl* (Metformin Hcl*), 500 MG GT TWICE A DAY, (Reported) Ranitidine Hcl* (Zantac*), 150 MG ORAL TWICE A DAY, (Reported) Ranitidine Hcl* (Zantac*), 150 MG GT TWICE A DAY, (Reported) Simvastatin (Zocor), 40 MG GT BEDTIME, (Reported) Vitamin D (Vitamin D3), 5,000 UNITS GT DAILY, (Reported) Scheduled PRN Acetaminophen (Acetaminophen), 650 MG GT EVERY 4 HOURS PRN for For Pain, ( Reported) Bisacodyl (Bisacodyl), 10 MG RC for Constipation, (Reported) Guaifenesin/Dextromethorphan (Guaifenesin Dm Syrup), 10 ML GT for For Cough, ( Reported) Hydrocodone Bit/Acetaminophen 5-325* ([place] 5-325*), 1 TAB ORAL Q4H PRN for For Pain, (Reported) Magnesium Hydroxide (Milk of Magnesia), 30 ML ORAL DAILY PRN for Constipation, ( Reported) Morphine Sulfate/Pf (Morphine 4 Mg/Ml Carpuject), 4 MG IV Q4HR PRN for For Pain, (Reported) Na Phos,M-B/Na Phos,Di-Ba (Fleet Enema), 118 ML RC for Constipation, (Reported) Ondansetron* (Zofran*), 4 MG GT Q4HR PRN for Nausea & Vomiting, (Reported) Polyethylene Glycol* (Miralax*), 17 GM ORAL DAILY PRN for Constipation, ( Reported) [lorazepam], 2 MG IV for Agitation, (Reported) Miscellaneous Medications Acidophilus/Bulgaricus (Floranex Tablet), 1 EACH GT, (Reported) Chlorhexidine Gluconate* (Hibiclens*), 118 ML TP, (Reported) Cranberry Fruit Concentrate (Cranberry), 450 MG GT, (Reported) Dextran 70/Hypromellose (Artificial Tears Eye Drops*), 1 DROP BOTH EYES, ( Reported) Dextrose/Sod Chloride (Dextrose 5%-0.45% NaCl IV Soln), 40 ML IV, (Reported) Ferrous Sulfate (Ferrous Sulfate), 50 MG GT, (Reported) Ferrous Sulfate (Ferrous Sulfate), 220 MG GT, (Reported) Ipratropium/Albuterol Sulfate (DuoNeb 0.5-3(2.5)mg/3ml), 3 ML HHN, (Reported) Lactobacillus Acidophilus (Acidophilus), 1 EACH PO, (Reported) Linagliptin (Tradjenta), 5 MG GT, (Reported) Metoclopramide Hcl (Metoclopramide Hcl*), 5 MG GT, (Reported) Multivit-Min/Iron Fum/Folic AC (Qqbga-Apvtshf-Leygwxvw Tablet), 1 EACH GT, ( Reported) Patient History Healthcare decision maker Shawanda Brooke (daughter) Resuscitation status Full Code Advanced Directive on File Patient History Narrative Pmhx: as above Shx:He is . He was born in [place]. He has been in [place] for many years. . 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 The patient does not smoke, drink, or use illicit drugs. Fhx: non contributory Review of Systems All Other Systems: negative except mentioned in HPI Physical Exam Physical Exam Narrative HEENT: Eyes were normal. ENT, mucous membranes were not dehydrated. NECK: Supple. There was no goiter. No mass. No lymphadenopathy. There was no JVD. No bruits. Carotid upstroke was 2+. LUNGS: Clear. HEART: PMI was in the fifth left intercostal space in midclavicular line. There was normal S1 and normal S2. There was no murmur. No arrhythmia. No S3. No S4. No pericardial rub. ABDOMEN: Soft and nontender without organomegaly. There were no masses palpable. Normal bowel sounds without bruits. There was no guarding. No rebound tenderness. No ascites. No hernia. No CVA tenderness. Liver span was 8 cm, mostly nontender. EXTREMITIES: No cyanosis, no clubbing, and no edema. Extremities were warm. Last 24 Hour Vital Signs Date Time Temp Pulse Resp B/P (MAP) Pulse Ox O2 Delivery O2 Flow Rate FiO2 12/08/18 13:09 120 32 35 12/08/18 12:00 Mechanical Ventilator 12/08/18 12:00 97 12/08/18 12:00 98.9 107 27 100/62 (75) 98 12/08/18 12:00 28 12/08/18 11:02 86 27 35 12/08/18 09:28 99.0 12/08/18 09:00 110 12/08/18 08:55 110 28 35 12/08/18 08:47 113 98/57 12/08/18 08:00 102.7 113 30 98/57 (71) 100 12/08/18 08:00 28 12/08/18 08:00 Mechanical Ventilator 12/08/18 07:14 107 28 35 12/08/18 04:38 104 24 35 28 12/08/18 04:00 Mechanical Ventilator 12/08/18 04:00 99.2 101 25 100/63 (75) 100 12/08/18 04:00 28 12/08/18 03:32 98 12/08/18 03:02 94 25 35 28 12/08/18 01:15 96 30 35 28 12/08/18 00:00 99.4 93 33 103/60 (74) 100 12/08/18 00:00 Mechanical Ventilator 12/07/18 23:24 100 12/07/18 23:09 101 25 35 28 12/07/18 21:00 95 24 35 28 12/07/18 20:42 94 95/61 12/07/18 20:00 28 12/07/18 20:00 98.6 94 28 95/61 (72) 100 12/07/18 20:00 Mechanical Ventilator 12/07/18 19:01 93 29 28 28 12/07/18 17:21 91 22 28 12/07/18 16:22 100 12/07/18 16:20 97.9 89 29 92/62 99 Mechanical Ventilator 15.0 28 12/07/18 16:10 Mechanical Ventilator 12/07/18 15:51 89 29 Mechanical Ventilator 15.0 28 12/07/18 15:08 85 24 28 Intake and Output 12/07/18 12/08/18 19:00 07:00 Intake Total 242.5 ml 2049.5 ml Output Total 200 ml 1300 ml Balance 42.5 ml 749.5 ml Intake Free Water 150 ml IV Total 242.5 ml 1619.5 ml Tube Feeding 280 ml Output Urine Total 200 ml 1200 ml Stool Total 100 ml Laboratory Tests Test 12/07/18 17:00 12/08/18 02:50 Urine Color Pale yellow Urine Appearance Slightly cloudy Urine pH 7 (4.5-8.0) Urine Specific [place] 1.005 (1.005-1.035) Urine Protein 2+ (NEGATIVE) H Urine Glucose (UA) 3+ (NEGATIVE) H Urine Ketones Negative (NEGATIVE) Urine Blood 5+ (NEGATIVE) H Urine Nitrite Negative (NEGATIVE) Urine Bilirubin Negative (NEGATIVE) Urine Urobilinogen Normal MG/DL (0.0-1.0) Urine Leukocyte Esterase 3+ (NEGATIVE) H Urine RBC 20-30 /HPF (0 - 0) H Urine WBC 15-20 /HPF (0 - 0) H Urine Squamous Epithelial Cells None /LPF (NONE/OCC) Urine Bacteria Moderate /HPF (NONE) H Urine Granular Casts 2-4 /LPF (NONE) H Urine Eosinophils None seen (NONE SEEN) Urine Random Creatinine Pending Urine Random Microalbumin Pending Urine Random Sodium 22 mmol/L (20-110) Urine Creatinine 15.5 MG/DL (30.0-125.0) L Urine Microalbumin/Creatinine Ratio Pending Urine Potassium Timed 17 mmol/L (12-62) White Blood Count 7.2 K/UL (4.8-10.8) Red Blood Count 2.89 M/UL (4.70-6.10) L Hemoglobin 9.9 G/DL (14.2-18.0) L Hematocrit 28.2 % (42.0-52.0) L Mean Corpuscular Volume 97 FL (80-99) Mean Corpuscular Hemoglobin 34.1 PG (27.0-31.0) H Mean Corpuscular Hemoglobin Concent 35.0 G/DL (32.0-36.0) Red Cell Distribution Width 14.9 % (11.6-14.8) H Platelet Count 139 K/UL (150-450) L Mean Platelet Volume 13.3 FL (6.5-10.1) H Neutrophils (%) (Auto) % (45.0-75.0) Lymphocytes (%) (Auto) % (20.0-45.0) Monocytes (%) (Auto) % (1.0-10.0) Eosinophils (%) (Auto) % (0.0-3.0) Basophils (%) (Auto) % (0.0-2.0) Differential Total Cells Counted 100 Neutrophils % (Manual) 86 % (45-75) H Lymphocytes % (Manual) 6 % (20-45) L Monocytes % (Manual) 4 % (1-10) Eosinophils % (Manual) 0 % (0-3) Basophils % (Manual) 0 % (0-2) Band Neutrophils 4 % (0-8) Platelet Estimate Decreased L Platelet Morphology Giant Platelets 1+ Anisocytosis 1+ Sodium Level 133 MMOL/L (136-145) #L Potassium Level 4.4 MMOL/L (3.5-5.1) Chloride Level 100 MMOL/L (98-107) Carbon Dioxide Level 19 MMOL/L (21-32) L Anion Gap 14 mmol/L (5-15) Blood Urea Nitrogen 123 mg/dL (7-18) H Creatinine 1.5 MG/DL (0.55-1.30) H Estimat Glomerular Filtration Rate mL/min (>60) Glucose Level 244 MG/DL (74-106) #H Calcium Level 9.0 MG/DL (8.5-10.1) Total Bilirubin 0.6 MG/DL (0.2-1.0) Aspartate Amino Transf (AST/SGOT) 163 U/L (15-37) H Alanine Aminotransferase (ALT/SGPT) 103 U/L (12-78) H Alkaline Phosphatase 89 U/L (46-116) Total Protein 7.4 G/DL (6.4-8.2) Albumin 1.9 G/DL (3.4-5.0) L Globulin 5.5 g/dL Albumin/Globulin Ratio 0.3 (1.0-2.7) L Microbiology Date/Time Source Procedure Growth Status 12/07/18 15:05 Rectum Received Height (Feet): 5 Height (Inches): 8.00 Weight (Pounds): 135 Medications Current Medications Medications (Trade) Dose Ordered Sig/Fransisco Route PRN Reason Start Time Stop Time Status Last Admin Dose Admin Acetaminophen (Tylenol) 650 mg Q4H PRN GT For Pain 12/07/18 17:00 01/06/19 16:59 12/08/18 08:58 Acetaminophen (Tylenol) 650 mg Q4H PRN ORAL fever 12/07/18 17:00 01/06/19 16:59 Albuterol/ Ipratropium (Albuterol/ Ipratropium) 3 ml Q4H PRN HHN Shortness of Breath 12/07/18 17:00 12/12/18 16:59 Allopurinol (Zyloprim) 100 mg DAILY ORAL 12/08/18 09:00 01/07/19 08:59 12/08/18 08:49 Atenolol (Tenormin) 50 mg Q12HR ORAL 12/07/18 21:00 01/06/19 20:59 Heparin Sodium (Porcine) (Heparin 5000 units/ml) 5,000 units EVERY 12 HOURS SUBQ 12/07/18 21:00 01/06/19 20:59 12/08/18 09:15 Morphine Sulfate (Morphine Sulfate) 2 mg Q4H PRN IVP Moderate Pain (Pain Scale 4-6) 12/07/18 17:00 12/14/18 16:59 Nitroglycerin (Ntg) 0.4 mg Q5M PRN SL Prn Chest Pain 12/07/18 17:00 01/06/19 16:59 Ondansetron HCl (Zofran) 4 mg Q6H PRN IVP Nausea & Vomiting 12/07/18 17:00 01/06/19 16:59 Polyethylene Glycol (Miralax) 17 gm DAILYPRN PRN ORAL Constipation 12/07/18 17:00 01/06/19 16:59 Sodium Chloride 1,000 ml @ 150 mls/hr Q6H40M IV 12/07/18 17:15 01/06/19 17:14 12/08/18 05:47 Temazepam (Restoril) 15 mg HSPRN PRN ORAL Insomnia 12/07/18 17:00 12/14/18 16:59 Assessment/Plan Assessment/Plan Abx: None Assessment: Severe Sepsis 2ry to GNR -CXR: Probable small left pleural effusion, also evident on prior study 2017. Bilateral interstitial disease, unchanged, suspect chronic. Correlate with clinical findings GNR bacteremia, likely from UTI -u/a 10-15, nit neg, luek +3; ucx p -3/6 Bcx 2/2 GNR Fever Hyponatremia, improving MAULIK, improving dysphagia s/p peg COPD GBS quadriplegia chronic resp failure s/p trach HTN CVA, nonverbal anemia SNF resident Plan: -Start empiric Aztreonam pending BCx -if further decompensation switch to Meropenem -Bcx x2 -f/u cx -Monitor CBC/CMP, temperatures -PEG/Trach care -Aspiration precautions Thank you for this consultation. Will continue to follow along with you. Discussed with Aminah Abdi M.D. Dec 08, 2018 15:06
--- NOTE | 2018-12-08 15:09 | NUR ---
NURSE NOTES:WOUND CARE NOTES: Pt presented on admission with multiple pressure injuries and Skin erosion.Pt has trach and no evidence of skin breakdown noted under trach collar. Unstageable pressure injury noted to L earlobe. Stable dry brown eschar noted(L)0.7cm x (W)0.5cm. Gross erythema with denudement and multiple scattered partial thickness wounds noted to buttocks and base of scrotum extending into both posterior upper thighs.Moderate amt sanguineous exudate noted upon removal of drsgs. Full thickness tunneled pressure injury noted to sacrum .Base of wound is obscured due to size and depth of wound. Moderate amt sanguineous exudate noted (L)3cm x (W)1cm x (D)7.4cm.Erythema periwound secondary to skin erosions. Partially opened DTPI L ischium .Base of wound purple,fluctuant with red borders.Open areas at base of this wound are beefy red in colour.Moderate amt sanguineous exudate noted.(L)7cm x (W)6.8cm. DTPI R ischium.Wound is fluctuant-purple in center with surrounding Maroon colour, and is partially opened with a small area of 5% that is necrotic.(L)6.5cm x (W)5.5cm. Red skin erosion periwound. Partial thickness pressure injury L hip. Base of wound is moist -viable. Edges adherent and dry. Periwound without erythema or induration(L)1.2cm x (W)0.5cm. Elongate partial thickness wound posterior upper L thigh .Base of wound is moist -viable .Small amt sanguineous exudate noted. (+) maceration along borders. Erythema without induration or elevation in skin temp noted.(L)2cm x (W)9.4cm. DTPI noted to R heel .Base of injury is indurated and maroon in colour. Periwound is firm without erythema. (L)1.5cm x (W)1cm.R heel without evidence of skin breakdown. Tx.Plan:Cleanse Sacrum with Saline. Loosely pack with Hydrogel impregnated Kerlix. Apply Triad Paste periwound. Cover with ABD pad. Daily and prn. Cleanse R and L ischial wounds with Saline. Apply Moisture Barrier Paste.Cover with abd pads Daily and prn. Apply Moisture Barrier to skin erosions on buttocks,scrotum, and posterior aspects of both thighs.Cover with ABD pad daily and prn. Cleanse wound L hip with Saline. Apply Moisture Barrier paste .Cover with Optifoam drsg Daily and prn. Cleanse wound posterior upper L thigh with saline .Apply Hydrogel. Cover with Optifoam drsg Daily and prn. Apply Cavilon Skin Barrier to L earlobe daily. Please monitor. Apply Cavilon Skin Barrier to L heel. Cover with Optifoam drsg. Change every 7 days and prn. Apply Cavilon Skin Barrier to R heel. Cover with Optifoam drsg .Change every 7 days and prn. Air fluidized mattress. Reposition every 2hours or as tolerated. Off-load heels with pillow.
--- NOTE | 2018-12-08 17:00 | NUR ---
NURSE NOTES: Pt placed on P200 mattress,transfer tolerated well no resp distress presented.
[2018-12-08] MEDS: Aztreonam Inj 1 GM in D5W 55 ML IVPB SCH (17:21)
--- NOTE | 2018-12-08 19:04 | NUR ---
HAND-OFF: Report given alva Sheehan RN .
--- NOTE | 2018-12-08 19:28 | NUR ---
NURSE NOTES: Received patient in bed with eyes closed. Arousable to verbal and tactile stimuli. Trach to vent AC 18, VT 500, p5 fio2 28%. GT feeding Glucerna 1.2 @ 55 cc/hr with not residual noted at this time. Suprapubic cath draining by gravity. Right Wrist 22G NS running @ 150cc/hr. patent and intact. Right quad colostomy bag noted to be draining. No signs of distress noted. Will continue to monitor.
--- NOTE | 2018-12-08 19:39 | NUR ---
HAND-OFF: Report given to JAVAN SCHILLING USING SBAR.
--- NOTE | 2018-12-08 19:50 | NUR ---
NURSE NOTES: Vital signs unstable- blood pressure trending down- left msg for DR. Hutchins- waiting for call back from doctor. Will continue to monitor pt. and with plan of care.
--- NOTE | 2018-12-08 19:50 | NUR ---
NURSE NOTES: received report from Mami SCHILLING, pt. in bed awake, A/O x's1-alert to name. Cardiac monitoring on, no signs or symptoms of acute cardiac or respiratory distress noted, bed in lowest position and call light within easy reach, bed alarm on, side rails up x's 3 and safety brakes engaged. pt. appears to be tolerating current vent settings well at AC18, TV 500, peep 5 and fio2 of 28%- no respiratory distress noted, G tube feeding running Glucerna 1.2 at 55cc/hr- no residual noted. Supra pubic catheter intact and draining to gravity. Colostomy Rt. quad area intact and draining to gravity, Rt. wrist 22G IV intact and patent running NS @150cc/hr- IV intact and patent. Safety measure continued, will continue with plan of care. Addendum: 12/08/18 at 2345 by JAVAN WHELAN RN RN correction to msg above Glucerna 1.2 is running at 65cc/hr- no residual.
--- NOTE | 2018-12-08 20:00 | NUR ---
NURSE NOTES: Doctor Hutchins calling back gave orders to Bolus pt. NS 500cc and if sys is <90, then to transfer pt. to ICU- Charge nurse made aware and also confirmed orders with doctor.
[2018-12-08] MEDS ORDERED: NS 500 ML IVPB ONE (20:15)
--- NOTE | 2018-12-08 21:00 | NUR ---
NURSE NOTES: reassessed patients b/p after bolus- b/p still trending down now 55/35- will notify laundry housekeeper regarding transfer.
--- NOTE | 2018-12-08 21:20 | NUR ---
NURSE NOTES: notified ranch supervisor Eleanor regarding transfer patient to ICU- per general warehouse worker waiting for bed- will continue to monitor pt. and with plan of care.
--- NOTE | 2018-12-08 22:50 | NUR ---
NURSE NOTES: per DR. Hutchins to take b/p for pt. in left and rt. arm and left leg- notified doctor of results and charted in vital signs- per Doctor even if leg is higher for sys to transfer pt. to icu.
--- NOTE | 2018-12-08 22:58 | NUR ---
NURSE NOTES: Per DR. Hutchins - orders changed to move patient to ICU only if b/p less than 80 for Systolic. Will continue to monitor pt. Addendum: 12/08/18 at 2304 by JAVAN WHELAN RN RN per DR. Hutchins to notify him of b/p before transferring pt. to ICU.
[2018-12-09] VITALS (7 sets, daily range): BP systolic 71–116; BP diastolic 48–73
--- NOTE | 2018-12-09 00:32 | NUR ---
NURSE NOTES: left msg for DR. Jones, regarding pts blood pressure left arm 74/53 and Left calf 98/57- and rt. arm 74/48 waiting for call back from doctor.
--- NOTE | 2018-12-09 00:35 | NUR ---
NURSE NOTES: per DR. Hutchins to order bolus 500mls and take b/p to left and rt. arm and left calf and to call him with results after complete. Will carry out orders.
[2018-12-09] MEDS ORDERED: NS 500 ML IVPB ONE (00:45)
--- NOTE | 2018-12-09 01:50 | NUR ---
NURSE NOTES: left msg for DR. Hutchins regarding blood pressures after bolus- waiting for call back from doctor- see Vital signs for blood pressure reading.
--- NOTE | 2018-12-09 01:59 | NUR ---
NURSE NOTES: Doctor Liset notified of b/p taken on lt. arm/ rt. arm and left calf- orders given to continue NS @150cc/hr and order BNP in am- no stat orders. Addendum: 12/09/18 at 0201 by JAVAN WHELAN RN RN Will continue to monitor pt. and with plan of care.
--- NOTE | 2018-12-09 04:20 | NUR ---
NURSE NOTES: b/p systolic above >80's- pt. appears to be stable and no distress noted- doctor to be notified if sys <80- will continue to monitor pt. and with plan of care.
[2018-12-09] MEDS: Aztreonam Inj 1 GM in D5W 55 ML IVPB SCH ×3 (05:28→21:41)
--- NOTE | 2018-12-09 07:28 | NUR ---
HAND-OFF: Report given to Deepak SCHILLING, pt, remains stable and no signs of distress noted- nurse aware to f/u with Dr. Hutchins regarding bnp- lab notified of labs to be done. Addendum: 12/09/18 at 0731 by JAVAN WHELAN RN RN Nurse aware of nursing orders and to notify doctor when sys <80.
--- NOTE | 2018-12-09 07:30 | NUR ---
NURSE NOTES: Report received from Le SCHILLING.Pt resting in bed asleep with trach tube to Vent ,on current settings noted,tolerating well. no resp distress presented,SR on the monitor,GTFv Glucerna 1.2 at 65 ml /hr,no residual noted,colostomy to RLQ in placed with dark brown liquid stools,SP Catheter intact draining yellow urine,IV site to LH intact,with IVF running NS at 150 ml/hr,skin warmb and dry,SR up x2 HOB elevated,bed lockb in lowest position,will continue with plans of care.
[2018-12-09] MEDS: Allopurinol 100mg Tab ORAL SCH (08:54)
[2018-12-09] MEDS: Heparin 5000 units/ml inj SUBQ SCH ×2 (08:57→21:20)
--- NOTE | 2018-12-09 09:15 | Pulmonolgy Critical Care Note ---
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 Respiratory: monitor respiratory rate, adjust FIO2, CXR Cardiac: continue to monitor HR/BP Renal: F/U I&O, keep IV fluid, check electrolytes Infectious Disease: check cultures, continue antibiotics Gastrointestinal: continue feedings/current rate, hold feedings Endocrine: monitor blood sugar Hematologic: monitor H/H, transfuse if hgb<8.5 Neurologic: PRN Ativan, keep patient comfortable Affect: PRN ativan Prophylaxis: Heparin Disposition: keep in ICU Time Spent (Minutes): 40 Notes 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 Discussed with: nurses, consultants, case pickerprototype engineer manager - Objective Last 24 Hour Vital Signs Date Time Temp Pulse Resp B/P (MAP) Pulse Ox O2 Delivery O2 Flow Rate FiO2 12/09/18 08:53 84 90/50 12/09/18 08:00 98.7 84 21 98/64 (75) 98 12/09/18 08:00 28 12/09/18 07:00 82 26 35 12/09/18 04:56 75 25 35 12/09/18 04:00 28 12/09/18 04:00 20 12/09/18 04:00 76 96/56 (69) 12/09/18 04:00 Mechanical Ventilator 12/09/18 04:00 76 81/54 (63) 12/09/18 04:00 97.7 76 27 85/57 (66) 99 12/09/18 02:55 79 23 35 12/09/18 01:50 73 71/51 (58) 12/09/18 01:50 73 89/49 (62) 12/09/18 01:50 73 74/56 (62) 12/09/18 01:12 72 25 35 12/09/18 00:00 78 12/09/18 00:00 74 98/57 (71) 12/09/18 00:00 28 12/09/18 00:00 Mechanical Ventilator 12/09/18 00:00 70 74/48 (57) 12/09/18 00:00 98.1 72 24 74/53 (60) 99 12/08/18 23:22 77 22 35 12/08/18 22:55 80/57 (65) 12/08/18 22:55 81/55 (64) 12/08/18 22:55 96/54 (68) 12/08/18 22:15 81/54 (63) 12/08/18 22:00 98/58 (71) 12/08/18 21:30 56/41 (46) 12/08/18 21:10 98.1 12/08/18 21:00 69 55/35 (42) 12/08/18 20:52 88 31 35 12/08/18 20:16 72 66/50 12/08/18 20:00 Mechanical Ventilator 12/08/18 20:00 98.1 94 29 83/52 (62) 98 12/08/18 20:00 28 12/08/18 20:00 95 12/08/18 19:45 80 50/40 (43) 12/08/18 19:40 88 66/35 (45) 12/08/18 19:30 94 31 35 12/08/18 17:19 102 34 35 12/08/18 16:12 28 12/08/18 16:00 112 12/08/18 16:00 Mechanical Ventilator 12/08/18 16:00 99.0 106 20 90/52 (65) 94 12/08/18 15:22 108 28 35 12/08/18 13:09 120 32 35 12/08/18 12:00 Mechanical Ventilator 12/08/18 12:00 97 12/08/18 12:00 98.9 107 27 100/62 (75) 98 12/08/18 12:00 28 12/08/18 11:02 86 27 35 Status: awake Condition: critical HEENT: atraumatic Neck: full ROM Lungs: chest wall tender Heart: HR/BP stable Abdomen: soft, active bowel sounds, feeding tube Extremities: no C/C/E Decubiti: location, stage Micro: Microbiology Date/Time Source Procedure Growth Status 12/07/18 13:30 Blood Blood Culture - Preliminary Gram Negative Bacillus 1 Resulted 12/07/18 13:20 Blood Blood Culture - Preliminary Gram Negative Bacillus 1 Resulted 12/07/18 14:50 Urine,Clean Catch Urine Culture - Preliminary Gram Negative Bacillus 1 Streptococcus Species Resulted 12/07/18 15:05 Rectum Received Critical Care - Subjective ROS Limited/Unobtainable: Yes Condition: critical FI02: 28 Vent Support Breath Rate: 18 Vent Support Mode: AC Vent Tidal Volume: 500 Sputum Amount: Moderate PEEP: 5.0 PIP: 29 Tube Feeding Amount: 65 I&O: Intake and Output 12/08/18 12/09/18 19:00 07:00 Intake Total 2150 ml 2567.5 ml Output Total 900 ml 725 ml Balance 1250 ml 1842.5 ml Intake Free Water 100 ml 50 ml IV Total 1555 ml 1737.5 ml Tube Feeding 435 ml 780 ml Other 60 ml Output Urine Total 700 ml 650 ml Stool Total 200 ml 75 ml # Bowel Movements 3 3 CXR: no change Abhishek Guerra MD Dec 09, 2018 09:15
--- NOTE | 2018-12-09 09:20 | NUR ---
NURSE NOTES: Dr Guerra at bedside,updated re pt's low BP,ordered to give 1L NS bolus,order done and carried out,will continue to monitor BP.
--- NOTE | 2018-12-09 10:31 | Progress Note ---
DATE: 12/08/2018 SUBJECTIVE: The patient is awake, alert, afebrile, and hemodynamically stable. He was found today to have gram negative belle in blood culture. At the same time, his blood pressure dropped to 55/35. . OBJECTIVE: VITAL SIGNS: Blood pressure now is 96/54. . . IMPRESSION: The patient is in septic shock. volume replacement. treatment with antibiotics. Blood pressure has been markedly improved, which is in the 90s now. Repeat laboratory tests will be done in the a.m. Neema Hutchins M.D. DR: YOVANI JOB#: [id number] CC:
[2018-12-09] MEDS: Morphine Sulfate 2mg/ml Inj(IV/IM USE ONLY) IVP PRN ×2 (11:37→21:19)
--- NOTE | 2018-12-09 12:00 | NUR ---
NURSE NOTES: called Dr Guerra,informed re BP good after the 1L bolus NS but the prob is HR 159-162 /min,sustained,He ordered 12 lead EKG and consult Dr Kelley and let him know. EKG done ,and called out Dr Kelley but did not return call,EKG showed SVT.
[2018-12-09] MEDS ORDERED: dilTIAZem HCl 25mg/5ml Inj IVP SCH (12:45)
--- NOTE | 2018-12-09 12:45 | NUR ---
NURSE NOTES: leak detector Adore called Dr Hutchins re elevated HR 162-165/min,ordered to transfer pt to [facility] and give Cardizem 10 mg IVP.1255,Pt converted from AFlutter with RVR ,SVT to SR -Stach hr 100-101 after the Cardizem IVP.
--- NOTE | 2018-12-09 13:10 | Consultation ---
History of Present Illness General Date patient seen: Dec 09, 2018 Chief Complaint: Abnormal Labs Present Illness HPI 73M multiple medical comorbidities currently admitted for medical care and management noted to have multiple wounds on admission. surgery called to evaluate and assist with care and management. patient seen, chart reviewed, patient examined. on vent with trach. unable to work with exam Allergies: Coded Allergies: PENICILLINS (Unverified Allergy, Unknown, 02/26/16) POLYMYXIN B (Unverified Allergy, Unknown, 02/26/16) VANCOMYCIN (Unverified Allergy, Unknown, 02/26/16) Medication History Scheduled Acetaminophen* (Acetaminophen 325MG Tablet*), 650 MG GT DAILY, (Reported) Ascorbic Acid* (Vitamin C*), 500 MG GT DAILY, (Reported) Aspirin* (Aspir 81*), 81 MG GT DAILY, (Reported) Atenolol* (Tenormin*), 50 MG ORAL BID, (Reported) Atorvastatin Calcium* (Atorvastatin Calcium*), 40 MG GT BEDTIME, (Reported) Aztreonam (Azactam), 1 GM IVPB Q8HR, (Reported) Chlorhexidine Gluconate (Chlorhexidine Gluconate), 15 ML MT TWICE A DAY, ( Reported) Cholecalciferol (Vitamin D3) (Vitamin D-400*), 1,000 UNITS ORAL DAILY, (Reported ) Citalopram Hydrobromide (Celexa), 10 MG GT DAILY, (Reported) Docusate Sodium (Docusate Sodium), 100 MG GT TWICE A DAY, (Reported) Esomeprazole Magnesium (Nexium), 40 MG GT DAILY, (Reported) Ferrous Sulfate (Feosol), 300 MG GT BID, (Reported) Heparin Sodium,Porcine/Ns/Pf (Heparin), 5,000 UNIT SUBQ Q12HR, (Reported) Linezolid* (Zyvox*), 600 MG ORAL EVERY 12 HOURS, (Reported) Metformin Hcl* (Metformin Hcl*), 500 MG GT TWICE A DAY, (Reported) Ranitidine Hcl* (Zantac*), 150 MG ORAL TWICE A DAY, (Reported) Ranitidine Hcl* (Zantac*), 150 MG GT TWICE A DAY, (Reported) Simvastatin (Zocor), 40 MG GT BEDTIME, (Reported) Vitamin D (Vitamin D3), 5,000 UNITS GT DAILY, (Reported) Scheduled PRN Acetaminophen (Acetaminophen), 650 MG GT EVERY 4 HOURS PRN for For Pain, ( Reported) Bisacodyl (Bisacodyl), 10 MG RC for Constipation, (Reported) Guaifenesin/Dextromethorphan (Guaifenesin Dm Syrup), 10 ML GT for For Cough, ( Reported) Hydrocodone Bit/Acetaminophen 5-325* ([place] 5-325*), 1 TAB ORAL Q4H PRN for For Pain, (Reported) Magnesium Hydroxide (Milk of Magnesia), 30 ML ORAL DAILY PRN for Constipation, ( Reported) Morphine Sulfate/Pf (Morphine 4 Mg/Ml Carpuject), 4 MG IV Q4HR PRN for For Pain, (Reported) Na Phos,M-B/Na Phos,Di-Ba (Fleet Enema), 118 ML RC for Constipation, (Reported) Ondansetron* (Zofran*), 4 MG GT Q4HR PRN for Nausea & Vomiting, (Reported) Polyethylene Glycol* (Miralax*), 17 GM ORAL DAILY PRN for Constipation, ( Reported) [lorazepam], 2 MG IV for Agitation, (Reported) Miscellaneous Medications Acidophilus/Bulgaricus (Floranex Tablet), 1 EACH GT, (Reported) Chlorhexidine Gluconate* (Hibiclens*), 118 ML TP, (Reported) Cranberry Fruit Concentrate (Cranberry), 450 MG GT, (Reported) Dextran 70/Hypromellose (Artificial Tears Eye Drops*), 1 DROP BOTH EYES, ( Reported) Dextrose/Sod Chloride (Dextrose 5%-0.45% NaCl IV Soln), 40 ML IV, (Reported) Ferrous Sulfate (Ferrous Sulfate), 50 MG GT, (Reported) Ferrous Sulfate (Ferrous Sulfate), 220 MG GT, (Reported) Ipratropium/Albuterol Sulfate (DuoNeb 0.5-3(2.5)mg/3ml), 3 ML HHN, (Reported) Lactobacillus Acidophilus (Acidophilus), 1 EACH PO, (Reported) Linagliptin (Tradjenta), 5 MG GT, (Reported) Metoclopramide Hcl (Metoclopramide Hcl*), 5 MG GT, (Reported) Multivit-Min/Iron Fum/Folic AC (Fpcdg-Xsbljsd-Duhevjhx Tablet), 1 EACH GT, ( Reported) Patient History Limited by: medical condition History Provided By: Medical Record, PMD Healthcare decision maker Shawanda Brooke (daughter) Resuscitation status Full Code Advanced Directive on File Past Medical/Surgical History Past Medical/Surgical History: (1) ATN (acute tubular necrosis) (2) Gastrostomy tube dysfunction (3) Abdominal wall cellulitis (4) UTI (urinary tract infection) (5) Sepsis (6) SBO (small bowel obstruction) (7) Anemia (8) Feeding by G-tube (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 (10) Acute and chronic respiratory failure (lfyjy-ok-mdkyxjq) (11) Diabetes mellitus, type II (12) Hypertension (13) Colostomy care (14) Cerebral vascular disease (15) Decubitus ulcer of sacral region, stage 2 (16) Hyponatremia (17) Acute and chronic respiratory failure Review of Systems ROS Narrative cannot obtain given medical condition Physical Exam General Appearance: no apparent distress Lines, tubes and drains: trach HEENT: mucous membranes moist Neck: trach Cardiovascular/Chest: normal rate Abdomen: soft, no organomegaly, no mass, feeding tube Extremities: other Skin Exam: other Last 24 Hour Vital Signs Date Time Temp Pulse Resp B/P (MAP) Pulse Ox O2 Delivery O2 Flow Rate FiO2 12/09/18 12:55 166 115/73 12/09/18 12:00 Mechanical Ventilator 12/09/18 12:00 28 12/09/18 11:20 93 26 35 12/09/18 09:29 87 28 35 12/09/18 08:53 84 90/50 12/09/18 08:00 Mechanical Ventilator 12/09/18 08:00 98.7 84 21 98/64 (75) 98 12/09/18 08:00 28 12/09/18 08:00 86 12/09/18 07:00 82 26 35 12/09/18 04:56 75 25 35 12/09/18 04:00 28 12/09/18 04:00 20 12/09/18 04:00 76 96/56 (69) 12/09/18 04:00 Mechanical Ventilator 12/09/18 04:00 76 81/54 (63) 12/09/18 04:00 97.7 76 27 85/57 (66) 99 12/09/18 02:55 79 23 35 12/09/18 01:50 73 71/51 (58) 12/09/18 01:50 73 89/49 (62) 12/09/18 01:50 73 74/56 (62) 12/09/18 01:12 72 25 35 12/09/18 00:00 78 12/09/18 00:00 74 98/57 (71) 12/09/18 00:00 28 12/09/18 00:00 Mechanical Ventilator 12/09/18 00:00 70 74/48 (57) 12/09/18 00:00 98.1 72 24 74/53 (60) 99 12/08/18 23:22 77 22 35 12/08/18 22:55 80/57 (65) 12/08/18 22:55 81/55 (64) 12/08/18 22:55 96/54 (68) 12/08/18 22:15 81/54 (63) 12/08/18 22:00 98/58 (71) 12/08/18 21:30 56/41 (46) 12/08/18 21:10 98.1 12/08/18 21:00 69 55/35 (42) 12/08/18 20:52 88 31 35 12/08/18 20:16 72 66/50 12/08/18 20:00 Mechanical Ventilator 12/08/18 20:00 98.1 94 29 83/52 (62) 98 12/08/18 20:00 28 12/08/18 20:00 95 12/08/18 19:45 80 50/40 (43) 12/08/18 19:40 88 66/35 (45) 12/08/18 19:30 94 31 35 12/08/18 17:19 102 34 35 12/08/18 16:12 28 12/08/18 16:00 112 12/08/18 16:00 Mechanical Ventilator 12/08/18 16:00 99.0 106 20 90/52 (65) 94 12/08/18 15:22 108 28 35 12/08/18 13:09 120 32 35 Intake and Output 12/08/18 12/09/18 19:00 07:00 Intake Total 2150 ml 2567.5 ml Output Total 900 ml 725 ml Balance 1250 ml 1842.5 ml Intake Free Water 100 ml 50 ml IV Total 1555 ml 1737.5 ml Tube Feeding 435 ml 780 ml Other 60 ml Output Urine Total 700 ml 650 ml Stool Total 200 ml 75 ml # Bowel Movements 3 3 Height (Feet): 5 Height (Inches): 8.00 Weight (Pounds): 135 Medications Current Medications Medications (Trade) Dose Ordered Sig/Fransisco Route PRN Reason Start Time Stop Time Status Last Admin Dose Admin Acetaminophen (Tylenol) 650 mg Q4H PRN GT For Pain 12/07/18 17:00 01/06/19 16:59 12/08/18 20:40 Acetaminophen (Tylenol) 650 mg Q4H PRN ORAL fever 12/07/18 17:00 01/06/19 16:59 Albuterol/ Ipratropium (Albuterol/ Ipratropium) 3 ml Q4H PRN HHN Shortness of Breath 12/07/18 17:00 12/12/18 16:59 Allopurinol (Zyloprim) 100 mg DAILY ORAL 12/08/18 09:00 01/07/19 08:59 12/09/18 08:54 Atenolol (Tenormin) 50 mg Q12HR ORAL 12/07/18 21:00 01/06/19 20:59 Aztreonam 1 gm/ Dextrose 55 ml @ 110 mls/hr Q12H IVPB 12/08/18 17:00 12/15/18 16:59 12/09/18 05:28 Diltiazem HCl (Cardizem) 10 mg ONCE IVP 12/09/18 12:45 12/09/18 14:00 12/09/18 12:55 Heparin Sodium (Porcine) (Heparin 5000 units/ml) 5,000 units EVERY 12 HOURS SUBQ 12/07/18 21:00 01/06/19 20:59 12/09/18 08:57 Morphine Sulfate (Morphine Sulfate) 2 mg Q4H PRN IVP Moderate Pain (Pain Scale 4-6) 12/07/18 17:00 12/14/18 16:59 12/09/18 11:37 Nitroglycerin (Ntg) 0.4 mg Q5M PRN SL Prn Chest Pain 12/07/18 17:00 01/06/19 16:59 Ondansetron HCl (Zofran) 4 mg Q6H PRN IVP Nausea & Vomiting 12/07/18 17:00 01/06/19 16:59 Polyethylene Glycol (Miralax) 17 gm DAILYPRN PRN ORAL Constipation 12/07/18 17:00 01/06/19 16:59 Sodium Chloride 1,000 ml @ 150 mls/hr Q6H40M IV 12/07/18 17:15 01/06/19 17:14 12/09/18 11:31 Temazepam (Restoril) 15 mg HSPRN PRN ORAL Insomnia 12/07/18 17:00 12/14/18 16:59 Assessment/Plan Problem List: (1) Decubitus skin ulcer Assessment & Plan: Pt presented on admission with multiple pressure injuries and Skin erosion. Pt has trach and no evidence of skin breakdown noted under trach collar. Unstageable pressure injury noted to L earlobe. Stable dry brown eschar noted(L) 0.7cm x (W)0.5cm. Gross erythema with denudement and multiple scattered partial thickness wounds noted to buttocks and base of scrotum extending into both posterior upper thighs.Moderate amt sanguineous exudate noted upon removal of drsgs. 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 Moderate amt sanguineous exudate noted (L)3cm x (W)1cm x (D)7.4cm.Erythema periwound secondary to skin erosions. Partially opened DTPI L ischium .Base of wound purple,fluctuant with red borders.Open areas at base of this wound are beefy red in colour.Moderate amt sanguineous exudate noted.(L)7cm x (W)6.8cm. DTPI R ischium.Wound is fluctuant-purple in center with surrounding Maroon colour, and is partially opened with a small area of 5% that is necrotic.(L) 6.5cm x (W)5.5cm. Red skin erosion periwound. Partial thickness pressure injury L hip. Base of wound is moist -viable. Edges adherent and dry. Periwound without erythema or induration(L)1.2cm x (W)0.5cm. Elongate partial thickness wound posterior upper L thigh .Base of wound is moist -viable .Small amt sanguineous exudate noted. (+) maceration along borders. Erythema without induration or elevation in skin temp noted.(L)2cm x (W )9.4cm. DTPI noted to R heel .Base of injury is indurated and maroon in colour. Periwound is firm without erythema. (L)1.5cm x (W)1cm.R heel without evidence of skin breakdown. Tx.Plan: Cleanse Sacrum with Saline. Loosely pack with Hydrogel impregnated Kerlix. Apply Triad Paste periwound. Cover with ABD pad. Daily and prn. Cleanse R and L ischial wounds with Saline. Apply Moisture Barrier Paste.Cover with abd pads Daily and prn. Apply Moisture Barrier to skin erosions on buttocks,scrotum, and posterior aspects of both thighs.Cover with ABD pad daily and prn. Cleanse wound L hip with Saline. Apply Moisture Barrier paste .Cover with Optifoam drsg Daily and prn. Cleanse wound posterior upper L thigh with saline .Apply Hydrogel. Cover with Optifoam drsg Daily and prn. Apply Cavilon Skin Barrier to L earlobe daily. Please monitor. Apply Cavilon Skin Barrier to L heel. Cover with Optifoam drsg. Change every 7 days and prn. Apply Cavilon Skin Barrier to R heel. Cover with Optifoam drsg .Change every 7 days and prn. Air fluidized mattress. Reposition every 2hours or as tolerated. Off-load heels with pillow. ICD Codes: L89.90 - Pressure ulcer of unspecified site, unspecified stage SNOMED: 776197380 (2) Acute and chronic respiratory failure ICD Codes: J96.20 - Acute and chronic respiratory failure, unspecified whether with hypoxia or hypercapnia SNOMED: 87112287, [id number] Javier Ricardo Dec 09, 2018 13:10
--- NOTE | 2018-12-09 14:30 | NUR ---
NURSE NOTES: Called Dr Hutchins re V/S T98.4,BP 101/70 HR 101/min,RR 20/min,O2 sat 99% to confirm if he would like pt transfer to ICU,ordered to keep pt in SDU.Pt resting quietly in bed at this time stable.
--- NOTE | 2018-12-09 15:25 | Infectious Diseases Prog Note ---
Assessment/Plan Assessment/Plan Abx: None Assessment: Severe Sepsis 2ry to GNR -CXR: Probable small left pleural effusion, also evident on prior study 2017. Bilateral interstitial disease, unchanged, suspect chronic. Correlate with clinical findings GNR bacteremia, likely from UTI -u/a 10-15, nit neg, luek +3; ucx 50-60k Strep sp, 40-50 K GNR -3/6 Bcx 3/4 GNR; 3/7 Bcx p Fever, improving Hyponatremia, improving MAULIK, improving dysphagia s/p peg COPD GBS quadriplegia chronic resp failure s/p trach HTN CVA, nonverbal anemia SNF resident Plan: -Start empiric Aztreonam #2 pending BCx and Ucx; and add IV Daptomycin pending for Strep sp in urine (probable enterococcus) -if further decompensation switch to Meropenem -f/u Bcx x2 -f/u cx -Monitor CBC/CMP, temperatures -PEG/Trach care -Aspiration precautions -CPK am Thank you for this consultation. Will continue to follow along with you. Discussed with RN. Subjective Allergies: Coded Allergies: PENICILLINS (Unverified Allergy, Unknown, 02/26/16) POLYMYXIN B (Unverified Allergy, Unknown, 02/26/16) VANCOMYCIN (Unverified Allergy, Unknown, 02/26/16) Subjective afebrile >24hrs repeat Bcx p no leukocytosis Objective Vital Signs Last 24 Hour Vital Signs Date Time Temp Pulse Resp B/P (MAP) Pulse Ox O2 Delivery O2 Flow Rate FiO2 12/09/18 13:27 99 27 35 12/09/18 12:55 166 115/73 12/09/18 12:00 166 12/09/18 12:00 Mechanical Ventilator 12/09/18 12:00 28 12/09/18 12:00 97.7 165 21 115/73 (87) 98 12/09/18 11:20 93 26 35 12/09/18 09:29 87 28 35 12/09/18 08:53 84 90/50 12/09/18 08:00 Mechanical Ventilator 12/09/18 08:00 98.7 84 21 98/64 (75) 98 12/09/18 08:00 28 12/09/18 08:00 86 12/09/18 07:00 82 26 35 12/09/18 04:56 75 25 35 12/09/18 04:00 28 12/09/18 04:00 20 12/09/18 04:00 76 96/56 (69) 12/09/18 04:00 Mechanical Ventilator 12/09/18 04:00 76 81/54 (63) 12/09/18 04:00 97.7 76 27 85/57 (66) 99 12/09/18 02:55 79 23 35 12/09/18 01:50 73 71/51 (58) 12/09/18 01:50 73 89/49 (62) 12/09/18 01:50 73 74/56 (62) 12/09/18 01:12 72 25 35 12/09/18 00:00 78 12/09/18 00:00 74 98/57 (71) 12/09/18 00:00 28 12/09/18 00:00 Mechanical Ventilator 12/09/18 00:00 70 74/48 (57) 12/09/18 00:00 98.1 72 24 74/53 (60) 99 12/08/18 23:22 77 22 35 12/08/18 22:55 80/57 (65) 12/08/18 22:55 81/55 (64) 12/08/18 22:55 96/54 (68) 12/08/18 22:15 81/54 (63) 12/08/18 22:00 98/58 (71) 12/08/18 21:30 56/41 (46) 12/08/18 21:10 98.1 12/08/18 21:00 69 55/35 (42) 12/08/18 20:52 88 31 35 12/08/18 20:16 72 66/50 12/08/18 20:00 Mechanical Ventilator 12/08/18 20:00 98.1 94 29 83/52 (62) 98 12/08/18 20:00 28 12/08/18 20:00 95 12/08/18 19:45 80 50/40 (43) 12/08/18 19:40 88 66/35 (45) 12/08/18 19:30 94 31 35 12/08/18 17:19 102 34 35 12/08/18 16:12 28 12/08/18 16:00 112 12/08/18 16:00 Mechanical Ventilator 12/08/18 16:00 99.0 106 20 90/52 (65) 94 12/08/18 15:22 108 28 35 Height (Feet): 5 Height (Inches): 8.00 Weight (Pounds): 135 Objective HEENT: Eyes were normal. ENT, mucous membranes were not dehydrated. NECK: Supple. There was no goiter. No mass. No lymphadenopathy. There was no JVD. No bruits. Carotid upstroke was 2+. LUNGS: Clear. HEART: PMI was in the fifth left intercostal space in midclavicular line. There was normal S1 and normal S2. There was no murmur. No arrhythmia. No S3. No S4. No pericardial rub. ABDOMEN: Soft and nontender without organomegaly. There were no masses palpable. Normal bowel sounds without bruits. There was no guarding. No rebound tenderness. No ascites. No hernia. No CVA tenderness. EXTREMITIES: No cyanosis, no clubbing, and no edema. Extremities were warm. Microbiology Date/Time Source Procedure Growth Status 12/07/18 13:30 Blood Blood Culture - Preliminary Gram Negative Bacillus 1 Resulted 12/07/18 13:20 Blood Blood Culture - Preliminary Gram Negative Bacillus 1 Resulted 12/07/18 14:50 Urine,Clean Catch Urine Culture - Preliminary Gram Negative Bacillus 1 Streptococcus Species Resulted 12/07/18 15:05 Rectum Received Current Medications Medications (Trade) Dose Ordered Sig/Fransisco Route PRN Reason Start Time Stop Time Status Last Admin Dose Admin Acetaminophen (Tylenol) 650 mg Q4H PRN GT For Pain 12/07/18 17:00 01/06/19 16:59 12/08/18 20:40 Acetaminophen (Tylenol) 650 mg Q4H PRN ORAL fever 12/07/18 17:00 01/06/19 16:59 Albuterol/ Ipratropium (Albuterol/ Ipratropium) 3 ml Q4H PRN HHN Shortness of Breath 12/07/18 17:00 12/12/18 16:59 Allopurinol (Zyloprim) 100 mg DAILY ORAL 12/08/18 09:00 01/07/19 08:59 12/09/18 08:54 Atenolol (Tenormin) 50 mg Q12HR ORAL 12/07/18 21:00 01/06/19 20:59 Aztreonam 1 gm/ Dextrose 55 ml @ 110 mls/hr Q8HR IVPB 12/09/18 15:00 12/16/18 14:59 Heparin Sodium (Porcine) (Heparin 5000 units/ml) 5,000 units EVERY 12 HOURS SUBQ 12/07/18 21:00 01/06/19 20:59 12/09/18 08:57 Morphine Sulfate (Morphine Sulfate) 2 mg Q4H PRN IVP Moderate Pain (Pain Scale 4-6) 12/07/18 17:00 12/14/18 16:59 12/09/18 11:37 Nitroglycerin (Ntg) 0.4 mg Q5M PRN SL Prn Chest Pain 12/07/18 17:00 01/06/19 16:59 Ondansetron HCl (Zofran) 4 mg Q6H PRN IVP Nausea & Vomiting 12/07/18 17:00 01/06/19 16:59 Polyethylene Glycol (Miralax) 17 gm DAILYPRN PRN ORAL Constipation 12/07/18 17:00 01/06/19 16:59 Sodium Chloride 1,000 ml @ 150 mls/hr Q6H40M IV 12/07/18 17:15 01/06/19 17:14 12/09/18 11:31 Temazepam (Restoril) 15 mg HSPRN PRN ORAL Insomnia 12/07/18 17:00 12/14/18 16:59 Aminah Champagne M.D. Dec 09, 2018 15:25
--- NOTE | 2018-12-09 15:58 | Consultation ---
Consult Note Consult Note Asked to eval for renal failure and electrolyte imbalance 73-year-old male presents ED for evaluation. Patient brought in by EMS for abnormal labs. Coming from [facility] facility. BUN and creatinine were elevated. Sodium also low. Patient is trach/vent. History of CVA. Nonverbal at baseline. No signs of distress. Unable to provide any additional history at this time. Afebrile. No other aggravating relieving factors. 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
--- NOTE | 2018-12-09 17:30 | NUR ---
NURSE NOTES: Dr Kelley seen pt,orders given,carried out.
--- NOTE | 2018-12-09 17:56 | Cardiology Progress Note ---
Assessment/Plan Assessment/Plan [id number] bp at time lavelle broke thru ateneolol will add dig for now may be able to use cardizem if bp improves in future Objective Last 24 Hour Vital Signs Date Time Temp Pulse Resp B/P (MAP) Pulse Ox O2 Delivery O2 Flow Rate FiO2 12/09/18 16:00 97 12/09/18 16:00 28 12/09/18 16:00 98.5 94 19 107/63 (78) 98 12/09/18 16:00 Mechanical Ventilator 12/09/18 15:29 99 27 35 12/09/18 13:27 99 27 35 12/09/18 12:55 166 115/73 12/09/18 12:00 166 12/09/18 12:00 Mechanical Ventilator 12/09/18 12:00 28 12/09/18 12:00 97.7 165 21 115/73 (87) 98 12/09/18 11:20 93 26 35 12/09/18 09:29 87 28 35 12/09/18 08:53 84 90/50 12/09/18 08:00 Mechanical Ventilator 12/09/18 08:00 98.7 84 21 98/64 (75) 98 12/09/18 08:00 28 12/09/18 08:00 86 12/09/18 07:00 82 26 35 12/09/18 04:56 75 25 35 12/09/18 04:00 28 12/09/18 04:00 20 12/09/18 04:00 76 96/56 (69) 12/09/18 04:00 Mechanical Ventilator 12/09/18 04:00 76 81/54 (63) 12/09/18 04:00 97.7 76 27 85/57 (66) 99 12/09/18 02:55 79 23 35 12/09/18 01:50 73 71/51 (58) 12/09/18 01:50 73 89/49 (62) 12/09/18 01:50 73 74/56 (62) 12/09/18 01:12 72 25 35 12/09/18 00:00 78 12/09/18 00:00 74 98/57 (71) 12/09/18 00:00 28 12/09/18 00:00 Mechanical Ventilator 12/09/18 00:00 70 74/48 (57) 12/09/18 00:00 98.1 72 24 74/53 (60) 99 12/08/18 23:22 77 22 35 12/08/18 22:55 80/57 (65) 12/08/18 22:55 81/55 (64) 12/08/18 22:55 96/54 (68) 12/08/18 22:15 81/54 (63) 12/08/18 22:00 98/58 (71) 12/08/18 21:30 56/41 (46) 12/08/18 21:10 98.1 12/08/18 21:00 69 55/35 (42) 12/08/18 20:52 88 31 35 12/08/18 20:16 72 66/50 12/08/18 20:00 Mechanical Ventilator 12/08/18 20:00 98.1 94 29 83/52 (62) 98 12/08/18 20:00 28 12/08/18 20:00 95 12/08/18 19:45 80 50/40 (43) 12/08/18 19:40 88 66/35 (45) 12/08/18 19:30 94 31 35 Intake and Output 12/08/18 12/09/18 19:00 07:00 Intake Total 2150 ml 2567.5 ml Output Total 900 ml 725 ml Balance 1250 ml 1842.5 ml Intake Free Water 100 ml 50 ml IV Total 1555 ml 1737.5 ml Tube Feeding 435 ml 780 ml Other 60 ml Output Urine Total 700 ml 650 ml Stool Total 200 ml 75 ml # Bowel Movements 3 3 Microbiology Date/Time Source Procedure Growth Status 12/07/18 13:30 Blood Blood Culture - Preliminary Gram Negative Bacillus 1 Resulted 12/07/18 13:20 Blood Blood Culture - Preliminary Gram Negative Bacillus 1 Resulted 12/07/18 14:50 Urine,Clean Catch Urine Culture - Preliminary Gram Negative Bacillus 1 Streptococcus Species Resulted 12/07/18 15:05 Rectum Received Donny Kelley MD Dec 09, 2018 17:56
[2018-12-09] MEDS ORDERED: Digoxin 0.5mg/2ml Inj IVP SCH (18:00)
[2018-12-09] MEDS: DAPTOmycin 250 MG in NS 55 ML IV SCH (18:17)
--- NOTE | 2018-12-09 18:21 | NUR ---
CASE MANAGEMENT: REVIEW SI: ATN . UTI . SEPSIS T 98.5 HR 102 RR 30 BP 107/63 SAT 98% MECH VENT FIO2 35 IS: DIGOXIN IV X1 AZACTAM IV Q8HR ATENOLOL PO Q12HR STEP DOWN UNIT STATUS DCP: PATIENT IS FROM [facility]
--- NOTE | 2018-12-09 19:05 | NUR ---
RESPIRATORY NOTE: PT. RECEIVED STABLE ON AC,VC 18, 500, 35%, +5. ALARMS ON AND AUDIBLE. VENT CIRCUIT SECURE AND OUT OF THE WAY. ALL VS WNL. NO S/S OF RESPIRATORY DISTRESS NOTED AT THIS TIME. WILL CONTINUE TO MONITOR.
--- NOTE | 2018-12-09 19:24 | NUR ---
NURSE NOTESHAND-OFF: Report given to Bernardino Gong RN .:
--- NOTE | 2018-12-09 19:45 | NUR ---
NURSE NOTES: PATIENT OPEN EYES, ABLE TO EYE CONTACT, ON TRACH TO VENT, AC 18/ TV 500/ FIO2 28%/ PEEP 5, O2 SATURATION 99% NOTED, ABDOMEN SOFT, G TUBE INTACT AND PATENT, OFF FEEDING 4 HOURS (1600-2000PM) STATUS, GLUCERNA 1.2 AT 65ML/HR FOR 20 HOURS, NO RESIDUE NOTED AT THIS TIME, HYPOACTIVE BOWEL SOUND, COLOSTOMY TO RLL, GREENISH SOLID STOOL OUTED, SUPRAPUBIC CATH, YELLOW ORANGE URINE COLOR OUTED, PERIPHERAL LINE TO RIGHT WRIST THAT REMOVED DUE TO INFILTRATED, INSERTED NEW PERIPHERAL LINE TO LEFT HAND 24G, ONGOING 1/2 NS AT 75ML/HR, KEPT HOB OVER 30 DEGREE, ON QUARTET BED, MADE LOWER BED POSITION, PROVIDED CALL LIGHT WITHIN REACH, WILL CONTINUE TO MONITOR.
[2018-12-09] MEDS: Pantoprazole Inj IVP SCH (21:18)
--- NOTE | 2018-12-09 21:19 | NUR ---
NURSE NOTES: GIVEN MORPHINE 2MG BY IVP SLOWLY FOR PAIN OF 5/10 PRN ORDERED, WILL CONTINUE TO MONITOR.
--- NOTE | 2018-12-09 22:05 | NUR ---
NURSE NOTES: ORAL CARE WAS DONE, REPOSITIONED, NO PAIN NOTED, WILL CONTINUE TO MONITOR.
--- NOTE | 2018-12-09 23:11 | Consultation ---
History of Present Illness General Chief Complaint: Abnormal Labs Present Illness Allergies: Coded Allergies: PENICILLINS (Unverified Allergy, Unknown, 02/26/16) POLYMYXIN B (Unverified Allergy, Unknown, 02/26/16) VANCOMYCIN (Unverified Allergy, Unknown, 02/26/16) Medication History Scheduled Acetaminophen* (Acetaminophen 325MG Tablet*), 650 MG GT DAILY, (Reported) Ascorbic Acid* (Vitamin C*), 500 MG GT DAILY, (Reported) Aspirin* (Aspir 81*), 81 MG GT DAILY, (Reported) Atenolol* (Tenormin*), 50 MG ORAL BID, (Reported) Atorvastatin Calcium* (Atorvastatin Calcium*), 40 MG GT BEDTIME, (Reported) Aztreonam (Azactam), 1 GM IVPB Q8HR, (Reported) Chlorhexidine Gluconate (Chlorhexidine Gluconate), 15 ML MT TWICE A DAY, ( Reported) Cholecalciferol (Vitamin D3) (Vitamin D-400*), 1,000 UNITS ORAL DAILY, (Reported ) Citalopram Hydrobromide (Celexa), 10 MG GT DAILY, (Reported) Docusate Sodium (Docusate Sodium), 100 MG GT TWICE A DAY, (Reported) Esomeprazole Magnesium (Nexium), 40 MG GT DAILY, (Reported) Ferrous Sulfate (Feosol), 300 MG GT BID, (Reported) Heparin Sodium,Porcine/Ns/Pf (Heparin), 5,000 UNIT SUBQ Q12HR, (Reported) Linezolid* (Zyvox*), 600 MG ORAL EVERY 12 HOURS, (Reported) Metformin Hcl* (Metformin Hcl*), 500 MG GT TWICE A DAY, (Reported) Ranitidine Hcl* (Zantac*), 150 MG ORAL TWICE A DAY, (Reported) Ranitidine Hcl* (Zantac*), 150 MG GT TWICE A DAY, (Reported) Simvastatin (Zocor), 40 MG GT BEDTIME, (Reported) Vitamin D (Vitamin D3), 5,000 UNITS GT DAILY, (Reported) Scheduled PRN Acetaminophen (Acetaminophen), 650 MG GT EVERY 4 HOURS PRN for For Pain, ( Reported) Bisacodyl (Bisacodyl), 10 MG RC for Constipation, (Reported) Guaifenesin/Dextromethorphan (Guaifenesin Dm Syrup), 10 ML GT for For Cough, ( Reported) Hydrocodone Bit/Acetaminophen 5-325* ([place] 5-325*), 1 TAB ORAL Q4H PRN for For Pain, (Reported) Magnesium Hydroxide (Milk of Magnesia), 30 ML ORAL DAILY PRN for Constipation, ( Reported) Morphine Sulfate/Pf (Morphine 4 Mg/Ml Carpuject), 4 MG IV Q4HR PRN for For Pain, (Reported) Na Phos,M-B/Na Phos,Di-Ba (Fleet Enema), 118 ML RC for Constipation, (Reported) Ondansetron* (Zofran*), 4 MG GT Q4HR PRN for Nausea & Vomiting, (Reported) Polyethylene Glycol* (Miralax*), 17 GM ORAL DAILY PRN for Constipation, ( Reported) [lorazepam], 2 MG IV for Agitation, (Reported) Miscellaneous Medications Acidophilus/Bulgaricus (Floranex Tablet), 1 EACH GT, (Reported) Chlorhexidine Gluconate* (Hibiclens*), 118 ML TP, (Reported) Cranberry Fruit Concentrate (Cranberry), 450 MG GT, (Reported) Dextran 70/Hypromellose (Artificial Tears Eye Drops*), 1 DROP BOTH EYES, ( Reported) Dextrose/Sod Chloride (Dextrose 5%-0.45% NaCl IV Soln), 40 ML IV, (Reported) Ferrous Sulfate (Ferrous Sulfate), 50 MG GT, (Reported) Ferrous Sulfate (Ferrous Sulfate), 220 MG GT, (Reported) Ipratropium/Albuterol Sulfate (DuoNeb 0.5-3(2.5)mg/3ml), 3 ML HHN, (Reported) Lactobacillus Acidophilus (Acidophilus), 1 EACH PO, (Reported) Linagliptin (Tradjenta), 5 MG GT, (Reported) Metoclopramide Hcl (Metoclopramide Hcl*), 5 MG GT, (Reported) Multivit-Min/Iron Fum/Folic AC (Khgze-Biatgsb-Vitpwpkb Tablet), 1 EACH GT, ( Reported) Patient History Healthcare decision maker Shawanda Brooke (daughter) Resuscitation status Full Code Advanced Directive on File Physical Exam Last 24 Hour Vital Signs Date Time Temp Pulse Resp B/P (MAP) Pulse Ox O2 Delivery O2 Flow Rate FiO2 12/09/18 21:20 103 28 35 12/09/18 21:18 101 113/77 12/09/18 20:00 28 12/09/18 20:00 98.4 98 29 116/71 (86) 99 12/09/18 19:17 99 12/09/18 19:05 99 29 35 12/09/18 18:18 102 12/09/18 17:00 102 30 35 12/09/18 16:00 97 12/09/18 16:00 28 12/09/18 16:00 98.5 94 19 107/63 (78) 98 12/09/18 16:00 Mechanical Ventilator 12/09/18 15:29 99 27 35 12/09/18 13:27 99 27 35 12/09/18 12:55 166 115/73 12/09/18 12:00 166 12/09/18 12:00 Mechanical Ventilator 12/09/18 12:00 28 12/09/18 12:00 97.7 165 21 115/73 (87) 98 12/09/18 11:20 93 26 35 12/09/18 09:29 87 28 35 12/09/18 08:53 84 90/50 12/09/18 08:00 Mechanical Ventilator 12/09/18 08:00 98.7 84 21 98/64 (75) 98 12/09/18 08:00 28 12/09/18 08:00 86 12/09/18 07:00 82 26 35 12/09/18 04:56 75 25 35 12/09/18 04:00 28 12/09/18 04:00 20 12/09/18 04:00 76 96/56 (69) 12/09/18 04:00 Mechanical Ventilator 12/09/18 04:00 76 81/54 (63) 12/09/18 04:00 97.7 76 27 85/57 (66) 99 12/09/18 02:55 79 23 35 12/09/18 01:50 73 71/51 (58) 12/09/18 01:50 73 89/49 (62) 12/09/18 01:50 73 74/56 (62) 12/09/18 01:12 72 25 35 12/09/18 00:00 78 12/09/18 00:00 74 98/57 (71) 12/09/18 00:00 28 12/09/18 00:00 Mechanical Ventilator 12/09/18 00:00 70 74/48 (57) 12/09/18 00:00 98.1 72 24 74/53 (60) 99 12/08/18 23:22 77 22 35 12/08/18 22:55 80/57 (65) 12/08/18 22:55 81/55 (64) 12/08/18 22:55 96/54 (68) Intake and Output 12/08/18 12/09/18 18:59 06:59 Intake Total 2120 ml 2567.5 ml Output Total 800 ml 825 ml Balance 1320 ml 1742.5 ml Intake Free Water 100 ml 50 ml IV Total 1555 ml 1737.5 ml Tube Feeding 405 ml 780 ml Other 60 ml Output Urine Total 700 ml 650 ml Stool Total 100 ml 175 ml # Bowel Movements 3 3 Laboratory Tests Test 12/09/18 18:10 C-Reactive Protein, Quantitative 19.5 mg/dL (0.00-0.90) H Height (Feet): 5 Height (Inches): 8.00 Weight (Pounds): 135 Medications Current Medications Medications (Trade) Dose Ordered Sig/Fransisco Route PRN Reason Start Time Stop Time Status Last Admin Dose Admin Acetaminophen (Tylenol) 650 mg Q4H PRN GT For Pain 12/07/18 17:00 01/06/19 16:59 12/08/18 20:40 Acetaminophen (Tylenol) 650 mg Q4H PRN ORAL fever 12/07/18 17:00 01/06/19 16:59 Albuterol/ Ipratropium (Albuterol/ Ipratropium) 3 ml Q4H PRN HHN Shortness of Breath 12/07/18 17:00 12/12/18 16:59 Allopurinol (Zyloprim) 100 mg DAILY ORAL 12/08/18 09:00 01/07/19 08:59 12/09/18 08:54 Atenolol (Tenormin) 50 mg Q12HR ORAL 12/07/18 21:00 01/06/19 20:59 12/09/18 21:18 Aztreonam 1 gm/ Dextrose 55 ml @ 110 mls/hr Q8HR IVPB 12/09/18 15:00 12/16/18 14:59 12/09/18 21:41 Daptomycin 250 mg/ Sodium Chloride 55 ml @ 100 mls/hr Q24H IV 12/09/18 16:00 12/16/18 15:59 12/09/18 18:17 Digoxin (Lanoxin) 0.125 mg QOD GT 12/11/18 09:00 01/10/19 08:59 Heparin Sodium (Porcine) (Heparin 5000 units/ml) 5,000 units EVERY 12 HOURS SUBQ 12/07/18 21:00 01/06/19 20:59 12/09/18 21:20 Morphine Sulfate (Morphine Sulfate) 2 mg Q4H PRN IVP Moderate Pain (Pain Scale 4-6) 12/07/18 17:00 12/14/18 16:59 12/09/18 21:19 Nitroglycerin (Ntg) 0.4 mg Q5M PRN SL Prn Chest Pain 12/07/18 17:00 01/06/19 16:59 Ondansetron HCl (Zofran) 4 mg Q6H PRN IVP Nausea & Vomiting 12/07/18 17:00 01/06/19 16:59 Pantoprazole (Protonix) 40 mg EVERY 12 HOURS IVP 12/09/18 21:00 01/08/19 20:59 12/09/18 21:18 Polyethylene Glycol (Miralax) 17 gm DAILYPRN PRN ORAL Constipation 12/07/18 17:00 01/06/19 16:59 Sodium Chloride 1,000 ml @ 75 mls/hr [id number] IV 12/09/18 16:00 01/08/19 15:59 12/09/18 18:17 Temazepam (Restoril) 15 mg HSPRN PRN ORAL Insomnia 12/07/18 17:00 12/14/18 16:59 Assessment/Plan Assessment/Plan Hematology/Oncology Consultation Requesting MD: Neema Hawley Date of Service: 12/09/18 Reason for consultation: Anemia and Thrombocytopenia HISTORY OF PRESENT ILLNESS: The patient is a resident of an extended care facility subacute unit where he has been in stable condition over the last several years.He is known to have several chronic medical syndromes, but he has been stable on the current medication. Over the last several days,the patient became progressively swollen. Hematology/Oncology was consulted for Anemia and Thrombocytopenia. Hgb 9, plt 139. 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 FAMILY HISTORY: Both parents from cardiovascular disease. He has no brother and no sisters. He has 1 daughter in good health. SOCIAL HISTORY: He is . He was born in [place]. He has been in [place] for many years. 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 HABITS: The patient does not smoke, drink, or use illicit drugs. Physical Exam Physical Exam Narrative HEENT: Eyes were normal. ENT, mucous membranes were not dehydrated. NECK: Supple. There was no goiter. No mass. No lymphadenopathy. There was no JVD. No bruits. Carotid upstroke was 2+. LUNGS: Clear. HEART: PMI was in the fifth left intercostal space in midclavicular line. There was normal S1 and normal S2. There was no murmur. No arrhythmia. No S3. No S4. No pericardial rub. ABDOMEN: Soft and nontender without organomegaly. There were no masses palpable. Normal bowel sounds without bruits. There was no guarding. No rebound tenderness. No ascites. No hernia. No CVA tenderness. Liver span was 8 cm, mostly nontender. EXTREMITIES: No cyanosis, no clubbing, and no edema. Extremities werewarm. LABORATORY DATA: His hemoglobin is 11.0, hematocrit 29.1, WBC of 10.1, and platelets are 246. Assessment/Recs: # Anemia of chronic disease (or of iron deficiency) due to underlying chronic medical issues, multifactorial --> Anemia workup has been ordered --> No evidence of hemolysis is noted, peripheral smear has been reviewed. --> Hgb goal >7. Transfuse prn. --> Epogen or iron at this time is not particularly indicated --> Medications have been reviewed # Thrombocytopenia - potential causes multifactorial, evaluate liver and viral etiologies to begin, also could be related to underlying medications patient has received. --> Hep panel and HIV ordered --> US abd to evaluate for cirrhosis and hsm ordered --> Peripheral smear ordered to evaluate for blasts /schistocytes --> abx and other meds have been reviewed --> ok for ppx if plt >50k w/ either heparin or lovenox --> Transfuse if Plt < 20k and fever, or if Plt < 10k without fever # Severe prerenal azotemia, on jeanette saline at 150 mL/hr. #Hypouricemia, appreciate Pulmonary datapower consultant # Severe Sepsis, CXR: Probable small left pleural effusion, also evident on prior study 11/22/2017. -->appreciate ID recs # [id number], likely from UTI The timing of this note does not necessarily reflect the time of the patient was seen. Greatly appreciate consultation! Adarsh Kim MD Dec 09, 2018 23:11
--- NOTE | 2018-12-09 23:30 | NUR ---
NURSE NOTES: SEEN THE PATIENT BY DR. BOBO, MADE NEW ORDER, WILL CARRY OUT.
[2018-12-10] VITALS: BP 107/71
--- NOTE | 2018-12-10 | NUR ---
NURSE NOTES: HOLD FEEDING AT THIS TIME DUE TO NPO POST MIDNIGHT FOR ABDOMINAL US IN AM.
--- NOTE | 2018-12-10 01:46 | Consultation ---
DATE OF CONSULTATION: 12/09/2018 CARDIOLOGY CONSULTATION CONSULTING PHYSICIAN: Donny Kelley M.D. REFERRING PHYSICIANS: 1. Neema Hutchins M.D. 2. Abhishek Guerra M.D. REASON FOR REFERRAL: Supraventricular tachycardia. HISTORY OF PRESENT ILLNESS: This is a very unfortunate 73-year-old gentleman with a history of . The patient has been admitted to the hospital by Dr. Hutchins with increasing swelling and was noted to be severely dehydrated with a BUN of 161. The patient had a sodium of 121, was admitted to the hospital for further evaluation. During the hospitalization, rapid heartbeat and supraventricular tachycardia were diagnosed. Eventually, he received some Cardizem to which he did respond and with resolution of the symptoms. He is really not able to provide any meaningful history verbally. He is on a ventilator and is quite debilitated, although he is able to communicate somewhat, being on a ventilator. PAST MEDICAL HISTORY: Positive for history of CVA with quadriplegia, history of chronic ventilator dependency, Guillain-[place] syndrome, pressure ulcers on the buttocks and sacral region, suprapubic catheter placement, history of abdominal surgery with colostomy and bowel resection, hyperlipidemia, pressure ulcers, and prior urinary tract infection. ALLERGIES: Penicillin, polymyxin, and vancomycin. SOCIAL HISTORY: No tobacco, alcohol, or drugs. He is a resident of a convalescent facility. REVIEW OF SYSTEMS: Unable to obtain. PHYSICAL EXAMINATION: GENERAL: Shows to be an elderly gentleman, on a mechanical ventilator. Tracheostomy is functioning. LUNGS: Rhonchi and wheezes bilaterally. CARDIAC: Regular rate and rhythm. No heaves noted. No thrills noted. ABDOMEN: Soft. EXTREMITIES: There is no edema. NEUROLOGICAL: He is responsive and communicative, but not oriented. LABORATORY AND DIAGNOSTIC DATA: His white count is 7.2, hemoglobin 9.9, and platelet count of 139,000. Sodium is 132, potassium 4.4, chloride 100, bicarbonate 19, BUN of 123, creatinine of 1.5, and glucose of 244. Uric acid of 12. Lactic acid is 0.9. HDL of 160. ALT of 103 and alkaline phosphatase of 89. CK of 61. Albumin is 1.9. His urinalysis shows 3+ leukocyte esterase, 20 to 30 rbc, 15 to 20 wbc, and moderate bacteria. His chest x-ray showed in the emergency room probable small pleural effusions that was previously evident, bronchiectasis, generalized bronchial wall thickening, and chronic appearing interstitial prominence which are stable. The patient's telemetry data shows episodes of narrow complex rapid tachycardia with intermittent episodes of sinus rhythm. Cardizem administration resulted in resolution of the SVT into sinus rhythm. The patient's electrocardiogram also shows evidence of sinus supraventricular tachycardia with some minor ST-segment changes with short RP interval being documented. ASSESSMENT: 1. Supraventricular tachycardia. 2. Renal insufficiency. 3. Hyponatremia. 4. Chronic ventilator dependence. 5. Guillain-[place] syndrome. 6. History of bowel resection. 7. History of CVA. 8. Chronic tracheostomy. 9. Diabetes mellitus. PLAN: This patient was seen in cardiac consultation. The patient is on beta-blockers and Cardizem, which unfortunately does not seem to have helped him with prevention of this episode of supraventricular tachycardia. His blood pressure is at times low. He has had blood pressure readings as low as 55 and as high as 115; therefore, Cardizem may not be a suitable alternative at this time with this blood pressure reading, although in the future may be best to try. I would recommend administering some digoxin to help with his SVT control in light of the fact that he is hypotensive and I will follow the patient along with you while he is in-house to manage his supraventricular tachycardia. Depending on the frequency, further recommendations will be made. Donny Kelley M.D. DR: ALEXA JOB#: [id number] CC:
--- NOTE | 2018-12-10 02:25 | NUR ---
NURSE NOTES: KEPT NPO, NO PAIN OR DISTRESS NOTED AT THIS TIME.
[2018-12-10 04:00] VITALS: BP 107/63
--- NOTE | 2018-12-10 04:00 | NUR ---
NURSE NOTES: MORNING CARE WAS DONE.
--- NOTE | 2018-12-10 05:02 | Progress Note ---
DATE: 12/09/2018 SUBJECTIVE: The patient developed hypotension and tachycardia yesterday and required administration of IV bolus of normal saline. he developed supraventricular tachycardia at a rate of 140 to 160. He was given Cardizem IV push and heart rate stabilized between 99 to 103. PHYSICAL EXAMINATION: VITAL SIGNS: Blood pressure is 116/71, his pulse is 96, respirations are 24, and temperature is 98.4. HEENT: Eyes were normal. ENT, mucous membranes were moist and intact. NECK: Supple with no JVD without lymph nodes. Tracheostomy site is clean. LUNGS: Clear without rhonchi, rales, or wheezing. Secretions are small, thin, and whitish. HEART: Normal sounds with regular beats. There is no S3, S4, or pericardial rub. ABDOMEN: Soft and nontender with normal bowel sounds. Gastrostomy site is clean. EXTREMITIES: Warm without cyanosis, clubbing, or edema. LABORATORY AND DIAGNOSTIC DATA: Hemoglobin is 9.9, hematocrit 28.2 with MCV of 97, WBC of 7.2, and platelets are 139,000. His BUN and creatinine are 123 and 1.5 respectively. His sodium is 133, potassium 4.4, chloride 100, CO2 is 19, and his glucose is 244. His SGOT is 163, SGPT is 103, and alkaline phosphatase is 89. CRP is 19.5. Urinalysis showed 15 to 20 wbc's per high-power field and 20 to 30 rbc's. IMPRESSION AND PLAN: The patient continued to have prerenal azotemia. He is on normal saline at 150 mL/hr. The patient has elevated liver function tests. Abdominal and pelvic ultrasound will be requested. Repeat laboratory tests will be done in the a.m. Neema Hutchins M.D. DR: NAYELY JOB#: [id number] CC:
--- NOTE | 2018-12-10 05:15 | NUR ---
RESPIRATORY NOTE: PT. REMAINED STABLE ON CMV WITH CURRENT SETTINGS. SXN'D PRN WITH NO ADVERSE REACTION. VENT CIRCUIT SECURE AND OUT OF THE WAY. NO RESPIRATORY DISTRESS NOTED AT THIS TIME.
[2018-12-10] MEDS: Aztreonam Inj 1 GM in D5W 55 ML IVPB SCH ×3 (05:37→22:08)
[2018-12-10 05:57] LABS: HEMATOCRIT 24.6 % (42.0-52.0); HEMOGLOBIN 8.6 G/DL (14.2-18.0); MEAN CORPUSCULAR VOLUME 100 FL (80-99); PLATELET COUNT 121 K/UL (150-450); RED BLOOD COUNT 2.48 M/UL (4.70-6.10); RED CELL DISTRIBUTION WIDTH 16.1 % (11.6-14.8); WHITE BLOOD COUNT 12.4 K/UL (4.8-10.8)
[2018-12-10 06:11] LABS: % IRON SATURATION 11 % (15-50); IRON 21 ug/dL (50-175); TOTAL IRON BINDING CAPACITY 186 ug/dL (250-450)
--- NOTE | 2018-12-10 06:30 | NUR ---
NURSE NOTES: NO ACUTE DISTRESS NOTED AT THIS SHIFT.
[2018-12-10 06:44] LABS: AMMONIA 52 umol/L (11-32)
--- NOTE | 2018-12-10 07:16 | NUR ---
HAND-OFF: Report given to SHAKIR DIALLO.
--- NOTE | 2018-12-10 07:20 | NUR ---
NURSE NOTES: Report received from Bernardino Gong RN. Patient is observed bedside. Patient is resting with eyes open spontaneously, tracks with eyes, responds to stimulus and does not appear in any acute distress. Patient is unable to move his extremities due to his quadriplegia status. Patient has a tracheostomy with Portex 7.0 with vent settings AC 18, FIO2 28%, TV 500, +5 PEEP. Patient has very little secretions. Upon auscultation, patient has diminished breath sounds. Patient is NPO currently. Patient has colostomy with greenish stool. Patient has suprapubic catheter draining dark urine to gravity. Patient has a L index finger 24G IV site that is patent and intact running 1/2 NS at 75 ml/hr. Patient is with low grade fever. Safety measures are in place with bed locked in the lowest position, HOB elevated. Several abnormal labs, will contact MD. Will monitor patient closely and follow plan of care
[2018-12-10 07:46] LABS: PHOSPHORUS 0.9 MG/DL (2.5-4.9)
--- NOTE | 2018-12-10 07:49 | Pulmonology Progress Note ---
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 Hx of HTN - currently hypotensive PLAN OF CARE MIKE vent support trach care pulmonary toilet as needed baseline baseline ABG today and titrate settings as needed fup with CXR initial chest x-ray bilateral interstitial disease unchanged, likely chronic abx as per ID blood culture + Proteus urine culture +Proteus , repeated bl cx 10/07 GNR sepsis likely due to UTI hyper Na today, IVF changed to dextrose as per nephro replace K and P as ordered by nephro hyponatremia was likely due to dehydration monitor renal parameters and electrolytes , avoid nephrotoxins , correct electrolytes as needed creatinine trended down to normal , monitor H&H with goal to keep hemoglobin 7, anemia workup consistent with anemia of chronic disease, high ferritin ; folate still pending wound care as per surgeon recommendation strict aspiration precaution , G-tube feeding , monitor tolerance , DVT prophylaxis BP management with beta-perla at this point hypotensive, hold beta-perla blood sugar management with sliding scale of insulin, hemoglobin A1c 7.1 at goal supportive care case discussed and evaluated by supervising physician Subjective Allergies: Coded Allergies: PENICILLINS (Unverified Allergy, Unknown, 02/26/16) POLYMYXIN B (Unverified Allergy, Unknown, 02/26/16) VANCOMYCIN (Unverified Allergy, Unknown, 02/26/16) Subjective afebrile, mild leukocytosis today tachypneic Objective Last 24 Hour Vital Signs Date Time Temp Pulse Resp B/P (MAP) Pulse Ox O2 Delivery O2 Flow Rate FiO2 12/10/18 07:24 95 32 35 12/10/18 05:15 94 31 35 12/10/18 04:00 28 12/10/18 04:00 Mechanical Ventilator 12/10/18 04:00 98.9 86 21 107/63 (78) 96 12/10/18 03:44 90 12/10/18 03:22 89 32 35 12/10/18 01:00 92 32 35 12/10/18 00:00 98.2 90 30 107/71 (83) 95 12/10/18 00:00 Mechanical Ventilator 12/10/18 00:00 28 12/09/18 23:39 98 12/09/18 22:53 96 24 35 12/09/18 21:20 103 28 35 12/09/18 21:18 101 113/77 12/09/18 20:00 Mechanical Ventilator 12/09/18 20:00 28 12/09/18 20:00 98.4 98 29 116/71 (86) 99 12/09/18 19:17 99 12/09/18 19:05 99 29 35 12/09/18 18:18 102 12/09/18 17:00 102 30 35 12/09/18 16:00 97 12/09/18 16:00 28 12/09/18 16:00 98.5 94 19 107/63 (78) 98 12/09/18 16:00 Mechanical Ventilator 12/09/18 15:29 99 27 35 12/09/18 13:27 99 27 35 12/09/18 12:55 166 115/73 12/09/18 12:00 166 12/09/18 12:00 Mechanical Ventilator 12/09/18 12:00 28 12/09/18 12:00 97.7 165 21 115/73 (87) 98 12/09/18 11:20 93 26 35 12/09/18 09:29 87 28 35 12/09/18 08:53 84 90/50 12/09/18 08:00 Mechanical Ventilator 12/09/18 08:00 98.7 84 21 98/64 (75) 98 12/09/18 08:00 28 12/09/18 08:00 86 Intake and Output 12/09/18 12/10/18 19:00 07:00 Intake Total 1974 ml 1320 ml Output Total 1550 ml 1200 ml Balance 424 ml 120 ml Intake Free Water 200 ml IV Total 1129 ml 1010 ml Tube Feeding 585 ml 260 ml Other 60 ml 50 ml Output Urine Total 1400 ml 1200 ml Stool Total 150 ml # Bowel Movements 3 50 General Appearance: no acute distress, other - bedridden awake, vent dependent male poorly responsive Vent AC 500-18-35% PEEP5 HEENT: normocephalic, atraumatic, anicteric, status post trach - Portex #7, secretions small, yellow, thick Respiratory/Chest: lungs clear, no respiratory distress Cardiovascular: normal rate, regular rhythm - SR on tele , no JVD Abdomen: normal bowel sounds, soft, non tender, other - G tube Genitourinary: other - s/p catheter Extremities: pedal pulses normal Neurologic/Psychiatric: abnormal gait - bedriden, other - awake, poorly responsive, Musculoskeletal: atrophy - BLE Microbiology Date/Time Source Procedure Growth Status 12/08/18 16:50 Blood Blood Culture - Preliminary Gram Negative Jay Resulted 12/08/18 16:45 Blood Blood Culture - Preliminary NO GROWTH AFTER 24 HOURS Resulted 12/07/18 13:30 Blood Blood Culture - Final Proteus Mirabilis Complete 12/07/18 13:20 Blood Blood Culture - Final Proteus Mirabilis Complete 12/07/18 15:05 Nasal Nares MRSA Culture - Final NO METHICILLIN RESISTANT STAPH AUREUS... Complete 12/07/18 14:50 Urine,Clean Catch Urine Culture - Final Proteus Mirabilis Enterococcus Faecalis - Vre Complete 12/07/18 15:05 Rectum VRE Culture - Final NO VANCOMYCIN RESISTANT ENTEROCOCCUS ... Complete 12/07/18 15:05 Rectum Received Laboratory Tests 12/09/18 18:10: C-Reactive Protein, Quantitative 19.5H 12/10/18 04:55: White Blood Count 12.4H, Red Blood Count 2.48L, Hemoglobin 8.6L, Hematocrit 24.6L, Mean Corpuscular Volume 100H, Mean Corpuscular Hemoglobin 34.9H, Mean Corpuscular Hemoglobin Concent 35.0, Red Cell Distribution Width 16.1H, Platelet Count 121L, Mean Platelet Volume 12.2H, Neutrophils (%) (Auto) , Lymphocytes (%) (Auto) , Monocytes (%) (Auto) , Eosinophils (%) (Auto) , Basophils (%) (Auto) , Neutrophils % (Manual) [Pending], Lymphocytes % (Manual) [Pending], Platelet Estimate [Pending], Platelet Morphology [Pending], Sodium Level [Pending], Potassium Level [Pending], Chloride Level [Pending], Carbon Dioxide Level [Pending], Blood Urea Nitrogen [Pending], Creatinine [Pending], Estimat Glomerular Filtration Rate [Pending], Glucose Level [Pending], Hemoglobin A1c 7.1H, Lactic Acid Level [Pending], Uric Acid [Pending], Calcium Level [Pending], Phosphorus Level [Pending], Magnesium Level [Pending], Iron Level 21L, Total Iron Binding Capacity 186L, Percent Iron Saturation 11L, Unsaturated Iron Binding 165, Ferritin [Pending], Total Bilirubin [Pending], Aspartate Amino Transf (AST/SGOT) [Pending], Alanine Aminotransferase (ALT/SGPT ) [Pending], Alkaline Phosphatase [Pending], Ammonia 52H, Total Creatine Kinase [Pending], Troponin I 0.009, Pro-B-Type Natriuretic Peptide 9740H, Total Protein [Pending], Albumin [Pending], Globulin [Pending], Triglycerides Level [ Pending], Cholesterol Level [Pending], LDL Cholesterol [Pending], HDL Cholesterol [Pending], Cholesterol/HDL Ratio [Pending], Vitamin B12 Level 1172H , Folate [Pending], Thyroid Stimulating Hormone (TSH) [Pending], Cortisol AM Sample [Pending] Current Medications Medications (Trade) Dose Ordered Sig/Fransisco Route PRN Reason Start Time Stop Time Status Last Admin Dose Admin Acetaminophen (Tylenol) 650 mg Q4H PRN GT For Pain 12/07/18 17:00 01/06/19 16:59 12/08/18 20:40 Acetaminophen (Tylenol) 650 mg Q4H PRN ORAL fever 12/07/18 17:00 01/06/19 16:59 Albuterol/ Ipratropium (Albuterol/ Ipratropium) 3 ml Q4H PRN HHN Shortness of Breath 12/07/18 17:00 12/12/18 16:59 Allopurinol (Zyloprim) 100 mg DAILY ORAL 12/08/18 09:00 01/07/19 08:59 12/09/18 08:54 Atenolol (Tenormin) 50 mg Q12HR ORAL 12/07/18 21:00 01/06/19 20:59 12/09/18 21:18 Aztreonam 1 gm/ Dextrose 55 ml @ 110 mls/hr Q8HR IVPB 12/09/18 15:00 12/16/18 14:59 12/10/18 05:37 Daptomycin 250 mg/ Sodium Chloride 55 ml @ 100 mls/hr Q24H IV 12/09/18 16:00 12/16/18 15:59 12/09/18 18:17 Digoxin (Lanoxin) 0.125 mg QOD GT 12/11/18 09:00 01/10/19 08:59 Heparin Sodium (Porcine) (Heparin 5000 units/ml) 5,000 units EVERY 12 HOURS SUBQ 12/07/18 21:00 01/06/19 20:59 12/09/18 21:20 Morphine Sulfate (Morphine Sulfate) 2 mg Q4H PRN IVP Moderate Pain (Pain Scale 4-6) 12/07/18 17:00 12/14/18 16:59 12/09/18 21:19 Nitroglycerin (Ntg) 0.4 mg Q5M PRN SL Prn Chest Pain 12/07/18 17:00 01/06/19 16:59 Ondansetron HCl (Zofran) 4 mg Q6H PRN IVP Nausea & Vomiting 12/07/18 17:00 01/06/19 16:59 Pantoprazole (Protonix) 40 mg EVERY 12 HOURS IVP 12/09/18 21:00 01/08/19 20:59 12/09/18 21:18 Polyethylene Glycol (Miralax) 17 gm DAILYPRN PRN ORAL Constipation 12/07/18 17:00 01/06/19 16:59 Sodium Chloride 1,000 ml @ 75 mls/hr [id number] IV 12/09/18 16:00 01/08/19 15:59 12/10/18 05:37 Temazepam (Restoril) 15 mg HSPRN PRN ORAL Insomnia 12/07/18 17:00 12/14/18 16:59 Bria So NP Dec 10, 2018 07:49
[2018-12-10 07:52] LABS: ALBUMIN 1.5 G/DL (3.4-5.0); ALBUMIN/GLOBULIN RATIO 0.3 (1.0-2.7); ALKALINE PHOSPHATASE 103 U/L (46-116); ANION GAP 19 mmol/L (5-15); BILIRUBIN,TOTAL 0.3 MG/DL (0.2-1.0); BLOOD UREA NITROGEN 63 mg/dL (7-18); CALCIUM 8.4 MG/DL (8.5-10.1); CARBON DIOXIDE 16 MMOL/L (21-32); CHLORIDE 118 MMOL/L (98-107); CHOLESTEROL 162 MG/DL (< 200); CREATINE KINASE 644 U/L (26-308); CREATININE 1.1 MG/DL (0.55-1.30); FERRITIN 1573 NG/ML (8-388); HDL CHOLESTEROL 9 MG/DL (40-60); POTASSIUM 3.1 MMOL/L (3.5-5.1); SODIUM 153 MMOL/L (136-145); TRIGLYCERIDES 1174 MG/DL (30-150)
[2018-12-10 08:00] VITALS: BP 116/67
[2018-12-10 08:07] LABS: ALANINE AMINOTRANSFERASE 85 U/L (12-78); ASPARTATE AMINO TRANSFERASE 83 U/L (15-37)
--- NOTE | 2018-12-10 08:17 | NUR ---
NURSE NOTES: Called Dr Moreland regarding critical low Phos level, as well as K+, Na, Mg and Ammonia. Left message. Awaiting MD orders for replacement. Will continue to monitor.
--- NOTE | 2018-12-10 08:30 | NUR ---
NURSE NOTES: Spoke to Dr Moreland regarding orders for KPhos 30 mm. Orders placed. Will discuss with MD when he arrives for other orders. Will continue to monitor.
--- NOTE | 2018-12-10 08:46 | Infectious Diseases Prog Note ---
Assessment/Plan Assessment/Plan Abx: None Assessment: Severe Sepsis 2ry to GNR -CXR: Probable small left pleural effusion, also evident on prior study 2017. Bilateral interstitial disease, unchanged, suspect chronic. Correlate with clinical findings GNR bacteremia, likely from UTI -u/a 10-15, nit neg, luek +3; ucx 50-60k Enterococcus (Vanco resist), 40-50 K Proteus -12/07 Bcx 3/4 Proteus; 12/08 Bcx 1/2 sets Proteus Fever - resolved Hyponatremia, improving MAULIK, improving dysphagia s/p peg COPD GBS quadriplegia chronic resp failure s/p trach HTN CVA, nonverbal anemia SNF resident Plan: -Continue Aztreonam #11/17 pending BCx and Ucx; and IV Daptomycin #10/10 for enterococcus -if further decompensation switch to Meropenem -f/u Bcx x2 f/u Aztreonam sensitivities ( Called lab they will set it up) -f/u cx -Monitor CBC/CMP, temperatures -PEG/Trach care -Aspiration precautions -CPK am Will continue to follow along with you. Subjective Allergies: Coded Allergies: PENICILLINS (Unverified Allergy, Unknown, 02/26/16) POLYMYXIN B (Unverified Allergy, Unknown, 02/26/16) VANCOMYCIN (Unverified Allergy, Unknown, 02/26/16) Subjective Patient afebrile Mild leukocytosis today Satting well on 35% O2 Objective Vital Signs Last 24 Hour Vital Signs Date Time Temp Pulse Resp B/P (MAP) Pulse Ox O2 Delivery O2 Flow Rate FiO2 12/10/18 07:24 95 32 35 12/10/18 05:15 94 31 35 12/10/18 04:00 28 12/10/18 04:00 Mechanical Ventilator 12/10/18 04:00 98.9 86 21 107/63 (78) 96 12/10/18 03:44 90 12/10/18 03:22 89 32 35 12/10/18 01:00 92 32 35 12/10/18 00:00 98.2 90 30 107/71 (83) 95 12/10/18 00:00 Mechanical Ventilator 12/10/18 00:00 28 12/09/18 23:39 98 12/09/18 22:53 96 24 35 12/09/18 21:20 103 28 35 12/09/18 21:18 101 113/77 12/09/18 20:00 Mechanical Ventilator 12/09/18 20:00 28 12/09/18 20:00 98.4 98 29 116/71 (86) 99 12/09/18 19:17 99 12/09/18 19:05 99 29 35 12/09/18 18:18 102 12/09/18 17:00 102 30 35 12/09/18 16:00 97 12/09/18 16:00 28 12/09/18 16:00 98.5 94 19 107/63 (78) 98 12/09/18 16:00 Mechanical Ventilator 12/09/18 15:29 99 27 35 12/09/18 13:27 99 27 35 12/09/18 12:55 166 115/73 12/09/18 12:00 166 12/09/18 12:00 Mechanical Ventilator 12/09/18 12:00 28 12/09/18 12:00 97.7 165 21 115/73 (87) 98 12/09/18 11:20 93 26 35 12/09/18 09:29 87 28 35 12/09/18 08:53 84 90/50 Height (Feet): 5 Height (Inches): 8.00 Weight (Pounds): 135 Objective GEN: NAD HEENT: CTAB, PERRL, MMM. LUNGS: CTAB, No W HEART: RRR, S1, S2 ABDOMEN: Soft and nontender Microbiology Date/Time Source Procedure Growth Status 12/08/18 16:50 Blood Blood Culture - Preliminary Gram Negative Jay Resulted 12/08/18 16:45 Blood Blood Culture - Preliminary NO GROWTH AFTER 24 HOURS Resulted 12/07/18 13:30 Blood Blood Culture - Final Proteus Mirabilis Complete 12/07/18 13:20 Blood Blood Culture - Final Proteus Mirabilis Complete 12/07/18 15:05 Nasal Nares MRSA Culture - Final NO METHICILLIN RESISTANT STAPH AUREUS... Complete 12/07/18 14:50 Urine,Clean Catch Urine Culture - Final Proteus Mirabilis Enterococcus Faecalis - Vre Complete 12/07/18 15:05 Rectum VRE Culture - Final NO VANCOMYCIN RESISTANT ENTEROCOCCUS ... Complete 12/07/18 15:05 Rectum Received Laboratory Tests Test 12/09/18 18:10 12/10/18 04:55 C-Reactive Protein, Quantitative 19.5 mg/dL (0.00-0.90) H White Blood Count 12.4 K/UL (4.8-10.8) H Red Blood Count 2.48 M/UL (4.70-6.10) L Hemoglobin 8.6 G/DL (14.2-18.0) L Hematocrit 24.6 % (42.0-52.0) L Mean Corpuscular Volume 100 FL (80-99) H Mean Corpuscular Hemoglobin 34.9 PG (27.0-31.0) H Mean Corpuscular Hemoglobin Concent 35.0 G/DL (32.0-36.0) Red Cell Distribution Width 16.1 % (11.6-14.8) H Platelet Count 121 K/UL (150-450) L Mean Platelet Volume 12.2 FL (6.5-10.1) H Neutrophils (%) (Auto) % (45.0-75.0) Lymphocytes (%) (Auto) % (20.0-45.0) Monocytes (%) (Auto) % (1.0-10.0) Eosinophils (%) (Auto) % (0.0-3.0) Basophils (%) (Auto) % (0.0-2.0) Neutrophils % (Manual) Pending Lymphocytes % (Manual) Pending Platelet Estimate Pending Platelet Morphology Pending Sodium Level 153 MMOL/L (136-145) H Potassium Level 3.1 MMOL/L (3.5-5.1) L Chloride Level 118 MMOL/L (98-107) H Carbon Dioxide Level 16 MMOL/L (21-32) L Anion Gap 19 mmol/L (5-15) H Blood Urea Nitrogen 63 mg/dL (7-18) H Creatinine 1.1 MG/DL (0.55-1.30) Estimat Glomerular Filtration Rate mL/min (>60) Glucose Level 351 MG/DL (74-106) H Hemoglobin A1c 7.1 % (4.3-6.0) H Lactic Acid Level < 0.30 mmol/L (0.4-2.0) L Uric Acid 7.5 MG/DL (2.6-7.2) H Calcium Level 8.4 MG/DL (8.5-10.1) L Phosphorus Level 0.9 MG/DL (2.5-4.9) *L Magnesium Level 1.6 MG/DL (1.8-2.4) L Iron Level 21 ug/dL (50-175) L Total Iron Binding Capacity 186 ug/dL (250-450) L Percent Iron Saturation 11 % (15-50) L Unsaturated Iron Binding 165 ug/dL (112-346) Ferritin 1573 NG/ML (8-388) H Total Bilirubin 0.3 MG/DL (0.2-1.0) Aspartate Amino Transf (AST/SGOT) 83 U/L (15-37) H Alanine Aminotransferase (ALT/SGPT) 85 U/L (12-78) H Alkaline Phosphatase 103 U/L (46-116) Ammonia 52 umol/L (11-32) H Total Creatine Kinase 644 U/L (26-308) H Troponin I 0.009 ng/mL (0.000-0.056) Pro-B-Type Natriuretic Peptide 9740 pg/mL (0-125) H Total Protein 6.5 G/DL (6.4-8.2) Albumin 1.5 G/DL (3.4-5.0) L Globulin 5.0 g/dL Albumin/Globulin Ratio 0.3 (1.0-2.7) L Triglycerides Level 1174 MG/DL (30-150) H Cholesterol Level 162 MG/DL (< 200) LDL Cholesterol 30 mg/dL (<100) HDL Cholesterol 9 MG/DL (40-60) L Cholesterol/HDL Ratio 18.0 (3.3-4.4) H Vitamin B12 Level 1172 PG/ML (193-986) H Folate Pending Thyroid Stimulating Hormone (TSH) 0.830 uiU/mL (0.358-3.740) Cortisol AM Sample Pending Current Medications Medications (Trade) Dose Ordered Sig/Fransisco Route PRN Reason Start Time Stop Time Status Last Admin Dose Admin Acetaminophen (Tylenol) 650 mg Q4H PRN GT For Pain 12/07/18 17:00 01/06/19 16:59 12/08/18 20:40 Acetaminophen (Tylenol) 650 mg Q4H PRN ORAL fever 12/07/18 17:00 01/06/19 16:59 Albuterol/ Ipratropium (Albuterol/ Ipratropium) 3 ml Q4H PRN HHN Shortness of Breath 12/07/18 17:00 12/12/18 16:59 Allopurinol (Zyloprim) 100 mg DAILY ORAL 12/08/18 09:00 01/07/19 08:59 12/09/18 08:54 Atenolol (Tenormin) 50 mg Q12HR ORAL 12/07/18 21:00 01/06/19 20:59 12/09/18 21:18 Aztreonam 1 gm/ Dextrose 55 ml @ 110 mls/hr Q8HR IVPB 12/09/18 15:00 12/16/18 14:59 12/10/18 05:37 Daptomycin 250 mg/ Sodium Chloride 55 ml @ 100 mls/hr Q24H IV 12/09/18 16:00 12/16/18 15:59 12/09/18 18:17 Digoxin (Lanoxin) 0.125 mg QOD GT 12/11/18 09:00 01/10/19 08:59 Heparin Sodium (Porcine) (Heparin 5000 units/ml) 5,000 units EVERY 12 HOURS SUBQ 12/07/18 21:00 01/06/19 20:59 12/09/18 21:20 Morphine Sulfate (Morphine Sulfate) 2 mg Q4H PRN IVP Moderate Pain (Pain Scale 4-6) 12/07/18 17:00 12/14/18 16:59 12/09/18 21:19 Nitroglycerin (Ntg) 0.4 mg Q5M PRN SL Prn Chest Pain 12/07/18 17:00 01/06/19 16:59 Ondansetron HCl (Zofran) 4 mg Q6H PRN IVP Nausea & Vomiting 12/07/18 17:00 01/06/19 16:59 Pantoprazole (Protonix) 40 mg EVERY 12 HOURS IVP 12/09/18 21:00 01/08/19 20:59 12/09/18 21:18 Polyethylene Glycol (Miralax) 17 gm DAILYPRN PRN ORAL Constipation 12/07/18 17:00 01/06/19 16:59 Potassium Phosphate 30 mm/ Sodium Chloride 285 ml @ 47.5 mls/hr ONCE IV 12/10/18 10:00 12/10/18 16:00 Sodium Chloride 1,000 ml @ 75 mls/hr [id number] IV 12/09/18 16:00 01/08/19 15:59 12/10/18 05:37 Temazepam (Restoril) 15 mg HSPRN PRN ORAL Insomnia 12/07/18 17:00 12/14/18 16:59 Chico Allen MD Dec 10, 2018 08:46
[2018-12-10] MEDS: Heparin 5000 units/ml inj SUBQ SCH ×2 (09:00→20:53)
[2018-12-10] MEDS ORDERED: Albuterol/Ipratropium 3ml neb HHN PRN (09:25)
[2018-12-10] MEDS: Phospha 250 Neutral tab GT SCH ×3 (09:30→18:42)
[2018-12-10] MEDS: Pantoprazole Inj IVP SCH ×2 (09:30→20:53)
[2018-12-10] MEDS: Allopurinol 100mg Tab ORAL SCH (09:30)
[2018-12-10] MEDS ORDERED: Miralax 17gm pkt GT PRN (09:45)
[2018-12-10] MEDS ORDERED: Potassium Phosphate 30 MM in NS 275 ML IV SCH (10:00)
[2018-12-10] MEDS ORDERED: Lidocaine 1% Plain 30 ml INJ PRN (11:43)
[2018-12-10] MEDS ORDERED: Heparin1,000 units/500ml Premix(Conc:2 units/ml) IV PRN (11:44)
--- NOTE | 2018-12-10 11:48 | NUR ---
NURSE NOTES: Patient is very edematous. Patient had only a L index finger 24G. A L foot 24G was inserted urgently due to lack of IV access. Patient is DM and this will be only a very limited access for 48 hours until PICC line can be placed. Orders have been placed for URGENT PICC LINE. Will check chart for who will consent for patient. Spoke to Bria So NP for orders.
[2018-12-10 12:00] VITALS: BP 105/65
--- NOTE | 2018-12-10 12:01 | NUR ---
NURSE NOTES: Patient is observed bedside. Patient responds with head nods yes and no. Patient opens spontaneously, tracks with eyes, responds to stimulus and does not appear in any acute distress. Patient is unable to move his extremities due to his quadriplegia status. Patient has a tracheostomy with Portex 7.0 with vent settings AC 18, FIO2 28%, TV 500, +5 PEEP. Oral care performed. Patient is NPO currently. Patient has colostomy with greenish stool. Patient has suprapubic catheter draining dark urine to gravity. Patient has a L index finger 24G IV site that is patent and intact running D5W at 75 ml/hr. Safety measures are in place with bed locked in the lowest position, HOB elevated. Several abnormal labs, will contact MD. Will monitor patient closely and follow plan of care
--- NOTE | 2018-12-10 12:35 | Nephrology Progress Note ---
Assessment/Plan Problem List: (1) ATN (acute tubular necrosis) (2) Anemia (3) Feeding by G-tube (4) Acute and chronic respiratory failure (5) UTI (urinary tract infection) (6) Hyponatremia Assessment Patient have mainly Pre Renal Azotemia with possible underlying CKD- Low Na partly depletional, partly due to Hyperglycemia Other conditions as outlined: (1) Acute and chronic respiratory failure ([id number]) (2) Sepsis (3) Malnutrition and HypoAlbuminemia (4) UTI (urinary tract infection) (5) Anemia (6) Diabetes mellitus, type II (7) Colostomy care (8) Cerebral vascular disease (9) Decubitus ulcer of sacral region, stage 2 (10) Feeding by G-tube (11) Guillain-[place] disease Plan Hydrate- change IV to D5 K and Phos supplement as needed Keep electrolytes in check Keep BS and BP in check Objective Objective Last 24 Hour Vital Signs Date Time Temp Pulse Resp B/P (MAP) Pulse Ox O2 Delivery O2 Flow Rate FiO2 12/10/18 12:00 28 12/10/18 11:32 90 30 35 12/10/18 08:59 96 25 35 12/10/18 08:00 28 12/10/18 08:00 99.9 98 32 116/67 (83) 98 12/10/18 08:00 98 12/10/18 08:00 Mechanical Ventilator 12/10/18 07:24 95 32 35 12/10/18 05:15 94 31 35 12/10/18 04:00 28 12/10/18 04:00 Mechanical Ventilator 12/10/18 04:00 98.9 86 21 107/63 (78) 96 12/10/18 03:44 90 12/10/18 03:22 89 32 35 12/10/18 01:00 92 32 35 12/10/18 00:00 98.2 90 30 107/71 (83) 95 12/10/18 00:00 Mechanical Ventilator 12/10/18 00:00 28 12/09/18 23:39 98 12/09/18 22:53 96 24 35 12/09/18 21:20 103 28 35 12/09/18 21:18 101 113/77 12/09/18 20:00 Mechanical Ventilator 12/09/18 20:00 28 12/09/18 20:00 98.4 98 29 116/71 (86) 99 12/09/18 19:17 99 12/09/18 19:05 99 29 35 12/09/18 18:18 102 12/09/18 17:00 102 30 35 12/09/18 16:00 97 12/09/18 16:00 28 12/09/18 16:00 98.5 94 19 107/63 (78) 98 12/09/18 16:00 Mechanical Ventilator 12/09/18 15:29 99 27 35 12/09/18 13:27 99 27 35 12/09/18 12:55 166 115/73 Intake and Output 12/09/18 12/10/18 19:00 07:00 Intake Total 1974 ml 1320 ml Output Total 1550 ml 1200 ml Balance 424 ml 120 ml Intake Free Water 200 ml IV Total 1129 ml 1010 ml Tube Feeding 585 ml 260 ml Other 60 ml 50 ml Output Urine Total 1400 ml 1200 ml Stool Total 150 ml # Bowel Movements 3 50 Laboratory Tests 12/09/18 18:10: C-Reactive Protein, Quantitative 19.5H 12/10/18 04:55: White Blood Count 12.4H, Red Blood Count 2.48L, Hemoglobin 8.6L, Hematocrit 24.6L, Mean Corpuscular Volume 100H, Mean Corpuscular Hemoglobin 34.9H, Mean Corpuscular Hemoglobin Concent 35.0, Red Cell Distribution Width 16.1H, Platelet Count 121L, Mean Platelet Volume 12.2H, Neutrophils (%) (Auto) , Lymphocytes (%) (Auto) , Monocytes (%) (Auto) , Eosinophils (%) (Auto) , Basophils (%) (Auto) , Differential Total Cells Counted 100, Neutrophils % ( Manual) 83H, Lymphocytes % (Manual) 4L, Monocytes % (Manual) 4, Eosinophils % ( Manual) 0, Basophils % (Manual) 0, Band Neutrophils 9H, Platelet Estimate DecreasedL, Platelet Morphology Normal, Anisocytosis 1+, Sodium Level 153H, Potassium Level 3.1L, Chloride Level 118H, Carbon Dioxide Level 16L, Anion Gap 19H, Blood Urea Nitrogen 63H, Creatinine 1.1, Estimat Glomerular Filtration Rate , Glucose Level 351H, Hemoglobin A1c 7.1H, Lactic Acid Level < 0.30L, Uric Acid 7.5H, Calcium Level 8.4L, Phosphorus Level 0.9*L, Magnesium Level 1.6L, Iron Level 21L, Total Iron Binding Capacity 186L, Percent Iron Saturation 11L, Unsaturated Iron Binding 165, Ferritin 1573H, Total Bilirubin 0.3, Aspartate Amino Transf (AST/SGOT) 83H, Alanine Aminotransferase (ALT/SGPT) 85H, Alkaline Phosphatase 103, Ammonia 52H, Total Creatine Kinase 644H, Troponin I 0.009, Pro- B-Type Natriuretic Peptide 9740H, Total Protein 6.5, Albumin 1.5L, Globulin 5.0 , Albumin/Globulin Ratio 0.3L, Triglycerides Level 1174H, Cholesterol Level 162 , LDL Cholesterol 30, HDL Cholesterol 9L, Cholesterol/HDL Ratio 18.0H, Vitamin B12 Level 1172H, Folate 19.8, Thyroid Stimulating Hormone (TSH) 0.830, Cortisol AM Sample [Pending] 12/10/18 09:15: Arterial Blood pH 7.348L, Arterial Blood Partial Pressure CO2 32.7L, Arterial Blood Partial Pressure O2 104.0H, Arterial Blood HCO3 17.6*L, Arterial Blood Oxygen Saturation 97.5, Arterial Blood Base Excess -7.3L, Wong Test Positive Height (Feet): 5 Height (Inches): 8.00 Weight (Pounds): 135 Migue Moreland MD Dec 10, 2018 12:35
--- NOTE | 2018-12-10 12:56 | NUR ---
NURSE NOTES: Attempted to contact the patient's daughters for consent of the PICC. Unable to reach. Will attempt to reach this afternoon.
[2018-12-10] MEDS: Acetaminophen 650mg/20.3ml GT PRN (13:15)
[2018-12-10] MEDS ORDERED: Digoxin 0.5mg/2ml Inj IVP SCH (13:21)
[2018-12-10] MEDS ORDERED: dilTIAZem HCl 25mg/5ml Inj IVP SCH (13:21)
--- NOTE | 2018-12-10 14:01 | NUR ---
NURSE NOTES: Patient noted to have HR of 154 and sustained into 151 - 152. Called Dr Kelley. Per MD edith Feliz. Immediate result was HR 85-86. Patient's BP dropped to 84/55. Patient was given a 250 ml bolus. Patient now has a BP of 98/62. Patient also has a fever of 100.9. Tylenol was given, cooling measures having been instituted. Patient is responsive with head nods. Will continue to monitor closely and follow up with Digoxin per MD order.
[2018-12-10 14:13] LABS: HEMATOCRIT 23.7 % (42.0-52.0); HEMOGLOBIN 7.8 G/DL (14.2-18.0); MEAN CORPUSCULAR VOLUME 99 FL (80-99); PLATELET COUNT 120 K/UL (150-450); RED BLOOD COUNT 2.38 M/UL (4.70-6.10); RED CELL DISTRIBUTION WIDTH 15.9 % (11.6-14.8); WHITE BLOOD COUNT 11.3 K/UL (4.8-10.8)
[2018-12-10] MEDS: NovoLOG Insulin Flexpen SUBQ SCH ×2 (14:14→18:46)
[2018-12-10 14:37] LABS: ANION GAP 17 mmol/L (5-15); BLOOD UREA NITROGEN 54 mg/dL (7-18); CALCIUM 7.4 MG/DL (8.5-10.1); CARBON DIOXIDE 15 MMOL/L (21-32); CHLORIDE 120 MMOL/L (98-107); POTASSIUM 3.7 MMOL/L (3.5-5.1); SODIUM 152 MMOL/L (136-145)
[2018-12-10 14:42] LABS: ALANINE AMINOTRANSFERASE 76 U/L (12-78); ALBUMIN 1.4 G/DL (3.4-5.0); ALBUMIN/GLOBULIN RATIO 0.3 (1.0-2.7); ALKALINE PHOSPHATASE 75 U/L (46-116); ASPARTATE AMINO TRANSFERASE 76 U/L (15-37); BILIRUBIN,TOTAL 0.5 MG/DL (0.2-1.0)
--- NOTE | 2018-12-10 14:50 | Surgery Progress Note ---
Surgery Progress Note Subjective Additional Comments low grade fevers. leukocytosis. worsening anemia Objective Last 24 Hour Vital Signs Date Time Temp Pulse Resp B/P (MAP) Pulse Ox O2 Delivery O2 Flow Rate FiO2 12/10/18 13:43 86 29 35 12/10/18 13:26 151 99/77 12/10/18 12:00 89 12/10/18 12:00 28 12/10/18 12:00 99.1 89 30 105/65 (78) 98 12/10/18 12:00 Mechanical Ventilator 12/10/18 11:32 90 30 35 12/10/18 08:59 96 25 35 12/10/18 08:00 28 12/10/18 08:00 99.9 98 32 116/67 (83) 98 12/10/18 08:00 98 12/10/18 08:00 Mechanical Ventilator 12/10/18 07:24 95 32 35 12/10/18 05:15 94 31 35 12/10/18 04:00 28 12/10/18 04:00 Mechanical Ventilator 12/10/18 04:00 98.9 86 21 107/63 (78) 96 12/10/18 03:44 90 12/10/18 03:22 89 32 35 12/10/18 01:00 92 32 35 12/10/18 00:00 98.2 90 30 107/71 (83) 95 12/10/18 00:00 Mechanical Ventilator 12/10/18 00:00 28 12/09/18 23:39 98 12/09/18 22:53 96 24 35 12/09/18 21:20 103 28 35 12/09/18 21:18 101 113/77 12/09/18 20:00 Mechanical Ventilator 12/09/18 20:00 28 12/09/18 20:00 98.4 98 29 116/71 (86) 99 12/09/18 19:17 99 12/09/18 19:05 99 29 35 12/09/18 18:18 102 12/09/18 17:00 102 30 35 12/09/18 16:00 97 12/09/18 16:00 28 12/09/18 16:00 98.5 94 19 107/63 (78) 98 12/09/18 16:00 Mechanical Ventilator 12/09/18 15:29 99 27 35 I&O Intake and Output 12/09/18 12/10/18 19:00 07:00 Intake Total 1974 ml 1320 ml Output Total 1550 ml 1200 ml Balance 424 ml 120 ml Intake Free Water 200 ml IV Total 1129 ml 1010 ml Tube Feeding 585 ml 260 ml Other 60 ml 50 ml Output Urine Total 1400 ml 1200 ml Stool Total 150 ml # Bowel Movements 3 50 Dressing: saturated Wound: other Drains: other Cardiovascular: RSR Respiratory: clear Abdomen: soft, non-tender, present bowel sounds, non-distended Extremities: other Laboratory Tests Test 12/09/18 18:10 12/10/18 04:55 12/10/18 09:15 12/10/18 14:00 C-Reactive Protein, Quantitative 19.5 mg/dL (0.00-0.90) H White Blood Count 12.4 K/UL (4.8-10.8) H 11.3 K/UL (4.8-10.8) H Red Blood Count 2.48 M/UL (4.70-6.10) L 2.38 M/UL (4.70-6.10) L Hemoglobin 8.6 G/DL (14.2-18.0) L 7.8 G/DL (14.2-18.0) L Hematocrit 24.6 % (42.0-52.0) L 23.7 % (42.0-52.0) L Mean Corpuscular Volume 100 FL (80-99) H 99 FL (80-99) Mean Corpuscular Hemoglobin 34.9 PG (27.0-31.0) H 32.8 PG (27.0-31.0) H Mean Corpuscular Hemoglobin Concent 35.0 G/DL (32.0-36.0) 33.0 G/DL (32.0-36.0) Red Cell Distribution Width 16.1 % (11.6-14.8) H 15.9 % (11.6-14.8) H Platelet Count 121 K/UL (150-450) L 120 K/UL (150-450) L Mean Platelet Volume 12.2 FL (6.5-10.1) H 11.6 FL (6.5-10.1) H Neutrophils (%) (Auto) % (45.0-75.0) % (45.0-75.0) Lymphocytes (%) (Auto) % (20.0-45.0) % (20.0-45.0) Monocytes (%) (Auto) % (1.0-10.0) % (1.0-10.0) Eosinophils (%) (Auto) % (0.0-3.0) % (0.0-3.0) Basophils (%) (Auto) % (0.0-2.0) % (0.0-2.0) Differential Total Cells Counted 100 100 Neutrophils % (Manual) 83 % (45-75) H 94 % (45-75) H Lymphocytes % (Manual) 4 % (20-45) L 5 % (20-45) L Monocytes % (Manual) 4 % (1-10) 1 % (1-10) Eosinophils % (Manual) 0 % (0-3) 0 % (0-3) Basophils % (Manual) 0 % (0-2) 0 % (0-2) Band Neutrophils 9 % (0-8) H 0 % (0-8) Platelet Estimate Decreased L Decreased L Platelet Morphology Normal Normal Anisocytosis 1+ 1+ Sodium Level 153 MMOL/L (136-145) H 152 MMOL/L (136-145) H Potassium Level 3.1 MMOL/L (3.5-5.1) L 3.7 MMOL/L (3.5-5.1) Chloride Level 118 MMOL/L (98-107) H 120 MMOL/L (98-107) H Carbon Dioxide Level 16 MMOL/L (21-32) L 15 MMOL/L (21-32) L Anion Gap 19 mmol/L (5-15) H 17 mmol/L (5-15) H Blood Urea Nitrogen 63 mg/dL (7-18) H 54 mg/dL (7-18) H Creatinine 1.1 MG/DL (0.55-1.30) 1.0 MG/DL (0.55-1.30) Estimat Glomerular Filtration Rate mL/min (>60) mL/min (>60) Glucose Level 351 MG/DL (74-106) H 393 MG/DL (74-106) H Hemoglobin A1c 7.1 % (4.3-6.0) H Lactic Acid Level < 0.30 mmol/L (0.4-2.0) L 0.30 mmol/L (0.4-2.0) L Uric Acid 7.5 MG/DL (2.6-7.2) H Calcium Level 8.4 MG/DL (8.5-10.1) L 7.4 MG/DL (8.5-10.1) L Phosphorus Level 0.9 MG/DL (2.5-4.9) *L Magnesium Level 1.6 MG/DL (1.8-2.4) L Iron Level 21 ug/dL (50-175) L Total Iron Binding Capacity 186 ug/dL (250-450) L Percent Iron Saturation 11 % (15-50) L Unsaturated Iron Binding 165 ug/dL (112-346) Ferritin 1573 NG/ML (8-388) H Total Bilirubin 0.3 MG/DL (0.2-1.0) 0.5 MG/DL (0.2-1.0) Aspartate Amino Transf (AST/SGOT) 83 U/L (15-37) H 76 U/L (15-37) H Alanine Aminotransferase (ALT/SGPT) 85 U/L (12-78) H 76 U/L (12-78) Alkaline Phosphatase 103 U/L (46-116) 75 U/L (46-116) Ammonia 52 umol/L (11-32) H Total Creatine Kinase 644 U/L (26-308) H Troponin I 0.009 ng/mL (0.000-0.056) Pro-B-Type Natriuretic Peptide 9740 pg/mL (0-125) H Total Protein 6.5 G/DL (6.4-8.2) 5.4 G/DL (6.4-8.2) L Albumin 1.5 G/DL (3.4-5.0) L 1.4 G/DL (3.4-5.0) L Globulin 5.0 g/dL 4.0 g/dL Albumin/Globulin Ratio 0.3 (1.0-2.7) L 0.3 (1.0-2.7) L Triglycerides Level 1174 MG/DL (30-150) H Cholesterol Level 162 MG/DL (< 200) LDL Cholesterol 30 mg/dL (<100) HDL Cholesterol 9 MG/DL (40-60) L Cholesterol/HDL Ratio 18.0 (3.3-4.4) H Vitamin B12 Level 1172 PG/ML (193-986) H Folate 19.8 NG/ML (8.6-58.9) Thyroid Stimulating Hormone (TSH) 0.830 uiU/mL (0.358-3.740) Cortisol AM Sample 25.2 UG/DL Arterial Blood pH 7.348 (7.350-7.450) Arterial Blood Partial Pressure CO2 32.7 mmHg (35.0-45.0) L Arterial Blood Partial Pressure O2 104.0 mmHg (75.0-100.0) H Arterial Blood HCO3 17.6 mmol/L (22.0-26.0) *L Arterial Blood Oxygen Saturation 97.5 % (95-100) Arterial Blood Base Excess -7.3 (-2-2) L Wong Test Positive Macrocytosis 1+ Plan Problems: (1) Decubitus skin ulcer Assessment & Plan: Pt presented on admission with multiple pressure injuries and Skin erosion. Pt has trach and no evidence of skin breakdown noted under trach collar. Unstageable pressure injury noted to L earlobe. Stable dry brown eschar noted(L) 0.7cm x (W)0.5cm. Gross erythema with denudement and multiple scattered partial thickness wounds noted to buttocks and base of scrotum extending into both posterior upper thighs.Moderate amt sanguineous exudate noted upon removal of drsgs. 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 Moderate amt sanguineous exudate noted (L)3cm x (W)1cm x (D)7.4cm.Erythema periwound secondary to skin erosions. Partially opened DTPI L ischium .Base of wound purple,fluctuant with red borders.Open areas at base of this wound are beefy red in colour.Moderate amt sanguineous exudate noted.(L)7cm x (W)6.8cm. DTPI R ischium.Wound is fluctuant-purple in center with surrounding Maroon colour, and is partially opened with a small area of 5% that is necrotic.(L) 6.5cm x (W)5.5cm. Red skin erosion periwound. Partial thickness pressure injury L hip. Base of wound is moist -viable. Edges adherent and dry. Periwound without erythema or induration(L)1.2cm x (W)0.5cm. Elongate partial thickness wound posterior upper L thigh .Base of wound is moist -viable .Small amt sanguineous exudate noted. (+) maceration along borders. Erythema without induration or elevation in skin temp noted.(L)2cm x (W )9.4cm. DTPI noted to R heel .Base of injury is indurated and maroon in colour. Periwound is firm without erythema. (L)1.5cm x (W)1cm.R heel without evidence of skin breakdown. Tx.Plan: Cleanse Sacrum with Saline. Loosely pack with Hydrogel impregnated Kerlix. Apply Triad Paste periwound. Cover with ABD pad. Daily and prn. Cleanse R and L ischial wounds with Saline. Apply Moisture Barrier Paste.Cover with abd pads Daily and prn. Apply Moisture Barrier to skin erosions on buttocks,scrotum, and posterior aspects of both thighs.Cover with ABD pad daily and prn. Cleanse wound L hip with Saline. Apply Moisture Barrier paste .Cover with Optifoam drsg Daily and prn. Cleanse wound posterior upper L thigh with saline .Apply Hydrogel. Cover with Optifoam drsg Daily and prn. Apply Cavilon Skin Barrier to L earlobe daily. Please monitor. Apply Cavilon Skin Barrier to L heel. Cover with Optifoam drsg. Change every 7 days and prn. Apply Cavilon Skin Barrier to R heel. Cover with Optifoam drsg .Change every 7 days and prn. Air fluidized mattress. Reposition every 2hours or as tolerated. Off-load heels with pillow. (2) Acute and chronic respiratory failure Assessment & Plan: cont with breathing treatments trach stable trach site clean will change dressings daily Javier Ricardo Dec 10, 2018 14:50
--- NOTE | 2018-12-10 15:16 | NUR ---
NURSE NOTES: Patient observed bedside. SBP is still low 90s. Mg is being infused. Will continue to monitor BP hourly if not q 30 min to ensure that patient does not become hypotensive. Will continue to monitor.
[2018-12-10 16:00] VITALS: BP 92/64
[2018-12-10] MEDS ORDERED: Tubing IV Secondary IV ONE ×3 (16:00→19:38)
[2018-12-10] MEDS ORDERED: NS 275ml ONE ×2 (16:00→19:38)
[2018-12-10] MEDS ORDERED: 1/2 NS 1000ml IV ONE (16:00)
[2018-12-10] MEDS ORDERED: NS 500ML ONE (16:01)
--- NOTE | 2018-12-10 16:07 | NUR ---
NURSE NOTES: Patient has been rechecked for BP, continues to be hypotensive. SBP 85. Calling Dr Kelley now for additional orders.
--- NOTE | 2018-12-10 16:40 | NUR ---
NURSE NOTES: Dr Kelley assessed patient. SBP is now 100s. Patient with VSS. Patient is now afebrile. Patient is responsive to inquiries with head nods yes and no. Patient with HR that is now stable. Will continue to monitor and follow plan of care.
--- NOTE | 2018-12-10 16:58 | Cardiology Progress Note ---
Assessment/Plan Assessment/Plan 1. Supraventricular tachycardia. recurrent 12/09 and 12/10 2. Renal insufficiency. 3. Hyponatremia. 4. 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 6. History of bowel resection. 7. History of CVA. 8. Chronic tracheostomy. 9. Diabetes mellitus. bp borderline had recurrent svt ia was notified by rn gael womack orderd has been bolused with LR not gettign feeds due to pendign abd u/s his bp is soemwhat better now but he has low grade fever ISS started of his bs cortisol was normal watch temp curve now that renal fucntion is better will give more digoxin already on bb and seem to be breaking through wiht svt repeat cxr if bp drop and had fever may need levophed awiat picc line but cannot be done until wednesday may need central lien before then !! icu level care Subjective ROS Limited/Unobtainable: Yes Cardiovascular: Reports: lightheadedness; Denies: chest pain Respiratory: Reports: shortness of breath Objective Last 24 Hour Vital Signs Date Time Temp Pulse Resp B/P (MAP) Pulse Ox O2 Delivery O2 Flow Rate FiO2 12/10/18 16:00 78 12/10/18 16:00 28 12/10/18 15:51 76 26 35 12/10/18 15:34 85 12/10/18 13:55 98.9 12/10/18 13:43 86 29 35 12/10/18 13:26 151 99/77 12/10/18 12:00 89 12/10/18 12:00 28 12/10/18 12:00 99.1 89 30 105/65 (78) 98 12/10/18 12:00 Mechanical Ventilator 12/10/18 11:32 90 30 35 12/10/18 08:59 96 25 35 12/10/18 08:00 28 12/10/18 08:00 99.9 98 32 116/67 (83) 98 12/10/18 08:00 98 12/10/18 08:00 Mechanical Ventilator 12/10/18 07:24 95 32 35 12/10/18 05:15 94 31 35 12/10/18 04:00 28 12/10/18 04:00 Mechanical Ventilator 12/10/18 04:00 98.9 86 21 107/63 (78) 96 12/10/18 03:44 90 12/10/18 03:22 89 32 35 12/10/18 01:00 92 32 35 12/10/18 00:00 98.2 90 30 107/71 (83) 95 12/10/18 00:00 Mechanical Ventilator 12/10/18 00:00 28 12/09/18 23:39 98 12/09/18 22:53 96 24 35 12/09/18 21:20 103 28 35 12/09/18 21:18 101 113/77 12/09/18 20:00 Mechanical Ventilator 12/09/18 20:00 28 12/09/18 20:00 98.4 98 29 116/71 (86) 99 12/09/18 19:17 99 12/09/18 19:05 99 29 35 12/09/18 18:18 102 12/09/18 17:00 102 30 35 General Appearance: no apparent distress, on vent, patient on isolation Neck: supple Cardiovascular: tachycardia Respiratory/Chest: accessory muscle use Abdomen: normal bowel sounds, non tender, soft Extremities: no swelling Intake and Output 12/09/18 12/10/18 19:00 07:00 Intake Total 1974 ml 1320 ml Output Total 1550 ml 1200 ml Balance 424 ml 120 ml Intake Free Water 200 ml IV Total 1129 ml 1010 ml Tube Feeding 585 ml 260 ml Other 60 ml 50 ml Output Urine Total 1400 ml 1200 ml Stool Total 150 ml # Bowel Movements 3 50 Laboratory Tests Test 12/09/18 18:10 12/10/18 04:55 12/10/18 09:15 12/10/18 14:00 C-Reactive Protein, Quantitative 19.5 mg/dL (0.00-0.90) H White Blood Count 12.4 K/UL (4.8-10.8) H 11.3 K/UL (4.8-10.8) H Red Blood Count 2.48 M/UL (4.70-6.10) L 2.38 M/UL (4.70-6.10) L Hemoglobin 8.6 G/DL (14.2-18.0) L 7.8 G/DL (14.2-18.0) L Hematocrit 24.6 % (42.0-52.0) L 23.7 % (42.0-52.0) L Mean Corpuscular Volume 100 FL (80-99) H 99 FL (80-99) Mean Corpuscular Hemoglobin 34.9 PG (27.0-31.0) H 32.8 PG (27.0-31.0) H Mean Corpuscular Hemoglobin Concent 35.0 G/DL (32.0-36.0) 33.0 G/DL (32.0-36.0) Red Cell Distribution Width 16.1 % (11.6-14.8) H 15.9 % (11.6-14.8) H Platelet Count 121 K/UL (150-450) L 120 K/UL (150-450) L Mean Platelet Volume 12.2 FL (6.5-10.1) H 11.6 FL (6.5-10.1) H Neutrophils (%) (Auto) % (45.0-75.0) % (45.0-75.0) Lymphocytes (%) (Auto) % (20.0-45.0) % (20.0-45.0) Monocytes (%) (Auto) % (1.0-10.0) % (1.0-10.0) Eosinophils (%) (Auto) % (0.0-3.0) % (0.0-3.0) Basophils (%) (Auto) % (0.0-2.0) % (0.0-2.0) Differential Total Cells Counted 100 100 Neutrophils % (Manual) 83 % (45-75) H 94 % (45-75) H Lymphocytes % (Manual) 4 % (20-45) L 5 % (20-45) L Monocytes % (Manual) 4 % (1-10) 1 % (1-10) Eosinophils % (Manual) 0 % (0-3) 0 % (0-3) Basophils % (Manual) 0 % (0-2) 0 % (0-2) Band Neutrophils 9 % (0-8) H 0 % (0-8) Platelet Estimate Decreased L Decreased L Platelet Morphology Normal Normal Anisocytosis 1+ 1+ Sodium Level 153 MMOL/L (136-145) H 152 MMOL/L (136-145) H Potassium Level 3.1 MMOL/L (3.5-5.1) L 3.7 MMOL/L (3.5-5.1) Chloride Level 118 MMOL/L (98-107) H 120 MMOL/L (98-107) H Carbon Dioxide Level 16 MMOL/L (21-32) L 15 MMOL/L (21-32) L Anion Gap 19 mmol/L (5-15) H 17 mmol/L (5-15) H Blood Urea Nitrogen 63 mg/dL (7-18) H 54 mg/dL (7-18) H Creatinine 1.1 MG/DL (0.55-1.30) 1.0 MG/DL (0.55-1.30) Estimat Glomerular Filtration Rate mL/min (>60) mL/min (>60) Glucose Level 351 MG/DL (74-106) H 393 MG/DL (74-106) H Hemoglobin A1c 7.1 % (4.3-6.0) H Lactic Acid Level < 0.30 mmol/L (0.4-2.0) L 0.30 mmol/L (0.4-2.0) L Uric Acid 7.5 MG/DL (2.6-7.2) H Calcium Level 8.4 MG/DL (8.5-10.1) L 7.4 MG/DL (8.5-10.1) L Phosphorus Level 0.9 MG/DL (2.5-4.9) *L Magnesium Level 1.6 MG/DL (1.8-2.4) L Iron Level 21 ug/dL (50-175) L Total Iron Binding Capacity 186 ug/dL (250-450) L Percent Iron Saturation 11 % (15-50) L Unsaturated Iron Binding 165 ug/dL (112-346) Ferritin 1573 NG/ML (8-388) H Total Bilirubin 0.3 MG/DL (0.2-1.0) 0.5 MG/DL (0.2-1.0) Aspartate Amino Transf (AST/SGOT) 83 U/L (15-37) H 76 U/L (15-37) H Alanine Aminotransferase (ALT/SGPT) 85 U/L (12-78) H 76 U/L (12-78) Alkaline Phosphatase 103 U/L (46-116) 75 U/L (46-116) Ammonia 52 umol/L (11-32) H Total Creatine Kinase 644 U/L (26-308) H Troponin I 0.009 ng/mL (0.000-0.056) Pro-B-Type Natriuretic Peptide 9740 pg/mL (0-125) H Total Protein 6.5 G/DL (6.4-8.2) 5.4 G/DL (6.4-8.2) L Albumin 1.5 G/DL (3.4-5.0) L 1.4 G/DL (3.4-5.0) L Globulin 5.0 g/dL 4.0 g/dL Albumin/Globulin Ratio 0.3 (1.0-2.7) L 0.3 (1.0-2.7) L Triglycerides Level 1174 MG/DL (30-150) H Cholesterol Level 162 MG/DL (< 200) LDL Cholesterol 30 mg/dL (<100) HDL Cholesterol 9 MG/DL (40-60) L Cholesterol/HDL Ratio 18.0 (3.3-4.4) H Vitamin B12 Level 1172 PG/ML (193-986) H Folate 19.8 NG/ML (8.6-58.9) Thyroid Stimulating Hormone (TSH) 0.830 uiU/mL (0.358-3.740) Cortisol AM Sample 25.2 UG/DL Arterial Blood pH 7.348 (7.350-7.450) Arterial Blood Partial Pressure CO2 32.7 mmHg (35.0-45.0) L Arterial Blood Partial Pressure O2 104.0 mmHg (75.0-100.0) H Arterial Blood HCO3 17.6 mmol/L (22.0-26.0) *L Arterial Blood Oxygen Saturation 97.5 % (95-100) Arterial Blood Base Excess -7.3 (-2-2) L Wong Test Positive Macrocytosis 1+ Microbiology Date/Time Source Procedure Growth Status 12/08/18 16:50 Blood Blood Culture - Preliminary Gram Negative Jay Resulted 12/08/18 16:45 Blood Blood Culture - Preliminary NO GROWTH AFTER 24 HOURS Resulted Donny Kellye MD Dec 10, 2018 16:58
--- NOTE | 2018-12-10 17:38 | NUR ---
RESPIRATORY NOTE: Pt. remained stable on current AC vent settings throughout shift, SXN prn, no signs of respiratory distress at this time.
--- NOTE | 2018-12-10 17:56 | NUR ---
HAND-OFF: Report given to SHAKIR Veronica. VSS and patient is not in any acute distress.
--- NOTE | 2018-12-10 17:59 | NUR ---
NURSE NOTES: Received patient from SHAKIR Holley. patient stable at this time. Patient BP is systolic 96 at this time. Patient had an episode of SVT with blood pressure in the 80s systolic today. Patient was given Cardizem, Digoxin, K phosphate 30mm, Magnesium 2g, and 500mL bolus . Patient was also febrile 100.9 during the episode of SVT. Patient now showing sinus rhythm on the monitor. Patient on trach to ventilator setting AC 18, TV 500, FiO2 28%, and PEEP 5. patient has a colostomy bag that is asymptomatic and dressing intact. Patient has G tube. patient NPO at this time for abdominal ultrasound. Patient did not et abdominal ultrasound today. Patient will be resumed on feeding at 8pm and NPO to be resumed at midnight on wednesday night for untrasound wednesday. Patient has suprapubic catheter that is patent and asymptomatic at this time. Patient has a sacral stage 3 pressure ulcer. Dressing to be changed at this time. patient has a left foot 24 G that is patent and asymptomatic and to be removed on wednesday after PICC placement. Patient has an order for PICC placement on wednesday. Patient has a left index finger 24G that is patent and running D5W at 75mL/hr at this time. patient bed in low position with bed alarm on and call light in reach at this time.
[2018-12-10] MEDS: DAPTOmycin 250 MG in NS 55 ML IV SCH (18:42)
--- NOTE | 2018-12-10 19:30 | NUR ---
HAND-OFF: Report given to SHAKIR Ludwig. Patient VS stable at this time with no sign of acute distress.
--- NOTE | 2018-12-10 19:30 | NUR ---
NURSE NOTES: Endorsement received jc Veronica RN. Patient opens eyes spontaneously. Comunicates by nodding or shaking head when asked with yes or no question. With trach to vent. Portex 7.0 AC 18, VT 500 PEEP 5, 35% FiO2. No shortness of breath. With GTube on NPO. With colostomy intact at right lower abdomen. Suprapubic catheter connected to urimeter. With IV g 24 at left index finger, g24 at left foot. Ongoing D5W 75ml/hr. Head of bed elevated. Bed locked and in low position. Bed alarm on. Call light within reach.
[2018-12-10 20:00] VITALS: BP 103/65
[2018-12-10] MEDS: Dyna-Hex 2% Top Sol 2oz TOPIC SCH (20:00)
[2018-12-11] VITALS: BP 103/64
--- NOTE | 2018-12-11 | NUR ---
NURSE NOTES: No pain or discomfort. No shortness of breath. Colostomy bag changed. Oral care, bed bath done.
[2018-12-11] MEDS: NovoLOG Insulin Flexpen SUBQ SCH ×5 (00:32→23:29)
[2018-12-11 04:00] VITALS: BP 114/68
[2018-12-11] MEDS: Aztreonam Inj 1 GM in D5W 55 ML IVPB SCH ×3 (05:47→21:21)
--- NOTE | 2018-12-11 06:32 | Progress Note ---
DATE: 12/10/2018 SUBJECTIVE: The patient is awake and afebrile, but remained lethargic. PHYSICAL EXAMINATION: VITAL SIGNS: Blood pressure 103/65, his pulse is 88, respirations 27, and temperature 97.7. HEENT: Eyes were normal. ENT, mucous membranes were moist and intact. NECK: Supple with no JVD without lymph nodes. Tracheostomy site is clean. LUNGS: Clear without rhonchi, rales, or wheezing. Secretions are small, thin, and whitish. HEART: Normal sounds with regular beats. There is no tachycardia at rest. ABDOMEN: Soft and nontender with normal bowel sounds. Gastrostomy site is clean. EXTREMITIES: Warm without cyanosis, clubbing, or edema. LABORATORY DATA: Arterial blood gases are as follows; pH is 7.34, pCO2 is ___, pO2 is ___, bicarb is 17.6, O2 saturation ____. Base excess 7.3. His hemoglobin is 7.8, hematocrit 23.7, MCV of 99, WBC of 11.3, and platelets 120,000. Hemoglobin and hematocrit were 11.0 and 29.1 on 12/07/2018. His BUN and creatinine are 54 and 1.0 respectively. His sodium is 152, potassium 3.7, chloride 120, CO2 is 17, his glucose is 393. His A1c was 7.1 on 12/10/2018. His phosphorus was 0.9 and magnesium was 1.6. His iron was 21 and saturation was 11. His ammonia was 62. His albumin is 1.5 and total protein is 6.5. B12 and folate values are adequate. Blood culture is positive for gram-positive belle. culture was positive for Proteus mirabilis and Enterococcus faecalis. The patient's wound was assessed by surgeon conservative treatment without the need for surgical intervention. Currently, the patient is on daptomycin ____. Repeat laboratory tests will be done in a.m. The patient's electrolytes have been corrected already by the fraud manager. Neema Hutchins M.D. DR: AYAKA JOB#: [id number] CC:
--- NOTE | 2018-12-11 06:40 | NUR ---
RESPIRATORY NOTE: Received pt on trach cuff, Portex size 7.0, with current vent settings: AC 18-500ml-35% FiO2- peep of 5, pt is tolerating well the settings, saturates at 100%. Tachypneic RR 29-30 bpm, but no labor breathing or resp distress noted. Mitchel rhonchi breath sounds heard upon auscultation, sxn small amount of thick white yellow secretions without incidents. Alarms are set and audible, vent is plugged into the red outlet, ambu bag is at bedside. Will continue to monitor.
[2018-12-11 06:46] LABS: HEMATOCRIT 20.8 % (42.0-52.0); MEAN CORPUSCULAR VOLUME 97 FL (80-99); PLATELET COUNT 116 K/UL (150-450); RED BLOOD COUNT 2.15 M/UL (4.70-6.10); RED CELL DISTRIBUTION WIDTH 15.4 % (11.6-14.8); WHITE BLOOD COUNT 11.3 K/UL (4.8-10.8)
[2018-12-11 06:57] LABS: ANION GAP 13 mmol/L (5-15); BLOOD UREA NITROGEN 39 mg/dL (7-18); CALCIUM 7.6 MG/DL (8.5-10.1); CARBON DIOXIDE 19 MMOL/L (21-32); CHLORIDE 119 MMOL/L (98-107); POTASSIUM 3.2 MMOL/L (3.5-5.1); SODIUM 151 MMOL/L (136-145)
[2018-12-11 07:03] LABS: ALANINE AMINOTRANSFERASE 60 U/L (12-78); ALBUMIN 1.3 G/DL (3.4-5.0); ALKALINE PHOSPHATASE 58 U/L (46-116); ASPARTATE AMINO TRANSFERASE 50 U/L (15-37); BILIRUBIN,DIRECT 0.2 MG/DL (0.0-0.3); BILIRUBIN,TOTAL 0.4 MG/DL (0.2-1.0); GAMMA GLUTAMYL TRANSPEPTIDASE 23 U/L (5-85); PHOSPHORUS 1.9 MG/DL (2.5-4.9)
--- NOTE | 2018-12-11 07:20 | NUR ---
HAND-OFF: Called Dr. Alireza Kim for Hgb of 7.0, Hct of 20.8. Left a message. Awaiting for return call. Report given to Mel uJstice RN.
[2018-12-11 08:00] VITALS: BP 104/54
--- NOTE | 2018-12-11 08:00 | NUR ---
NURSE NOTES: received pt in the bed, vent dependent, vital signs stable, no co pain, no SOB, skin warm and dry to touch, dressing dry and intact on sacral area, GT clump, IV D5W at 75cc, suprapubic catheter, K 3.2, dr Moreland aware, bed in low position, HOB elevated.
--- NOTE | 2018-12-11 08:07 | Pulmonology Progress Note ---
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 May be edema or pneumonitis. slightly worsening small left pleural effusion. initial chest x-ray bilateral interstitial disease unchanged, likely chronic abx as per ID blood culture + Proteus , urine culture +Proteus , repeated bl cx 10/07 Proteus sepsis likely due to UTI hyper Na; IVF changed to dextrose as per nephro replace K and P as ordered by nephro monitor renal parameters and electrolytes , avoid nephrotoxins , correct electrolytes as needed creatinine trended down to normal , monitor H&H with goal to keep hemoglobin 7, Hgb down to 7, poor venous access on leg #24; - till PICC placement in am, will hold on transfusion for now and fup with HH in am anemia workup consistent with anemia of chronic disease, high ferritin ; stable B 12 and folate wound care as per surgeon recommendation strict aspiration precaution , G-tube feeding , monitor tolerance , DVT prophylaxis BP management with beta-perla at this point hypotensive, hold beta-perla blood sugar management with sliding scale of insulin, hemoglobin A1c 7.1 at goal supportive care case discussed and evaluated by supervising physician Subjective Allergies: Coded Allergies: PENICILLINS (Unverified Allergy, Unknown, 02/26/16) POLYMYXIN B (Unverified Allergy, Unknown, 02/26/16) VANCOMYCIN (Unverified Allergy, Unknown, 02/26/16) Subjective low grade fever and mild leukocytosis tachypneic Objective Last 24 Hour Vital Signs Date Time Temp Pulse Resp B/P (MAP) Pulse Ox O2 Delivery O2 Flow Rate FiO2 12/11/18 08:00 35 12/11/18 05:22 91 30 35 12/11/18 04:00 97.6 89 28 114/68 (83) 100 12/11/18 04:00 35 12/11/18 04:00 66 12/11/18 04:00 Mechanical Ventilator 12/11/18 03:00 88 28 35 12/11/18 00:40 87 28 35 12/11/18 00:00 Mechanical Ventilator 12/11/18 00:00 98.4 86 25 103/64 (77) 100 12/11/18 00:00 35 12/11/18 00:00 91 12/10/18 23:01 89 27 35 12/10/18 20:50 83 25 35 12/10/18 20:42 80 96/62 12/10/18 20:00 87 12/10/18 20:00 97.7 88 25 103/65 (78) 99 12/10/18 20:00 Mechanical Ventilator 12/10/18 20:00 35 12/10/18 19:26 86 26 35 12/10/18 17:13 81 30 35 12/10/18 16:00 98.3 83 28 92/64 (73) 99 12/10/18 16:00 78 12/10/18 16:00 28 12/10/18 16:00 Mechanical Ventilator 12/10/18 15:51 76 26 35 12/10/18 15:34 85 12/10/18 13:55 98.9 12/10/18 13:43 86 29 35 12/10/18 13:26 151 99/77 12/10/18 12:00 89 12/10/18 12:00 28 12/10/18 12:00 99.1 89 30 105/65 (78) 98 12/10/18 12:00 Mechanical Ventilator 12/10/18 11:32 90 30 35 12/10/18 08:59 96 25 35 Intake and Output 12/10/18 12/11/18 18:59 06:59 Intake Total 1040.0 ml 955 ml Output Total 1000 ml 750 ml Balance 40.0 ml 205 ml IV Total 1040.0 ml 955 ml Tube Feeding 0 ml Output Urine Total 800 ml 650 ml Stool Total 200 ml 100 ml Objective General Appearance: no acute distress, bedridden , awake, vent dependent male , poorly responsive Vent AC 500-18-35% PEEP5 HEENT: normocephalic, atraumatic, anicteric, status post trach - Portex #7, secretions small, yellow, thick Respiratory/Chest: lungs clear, no respiratory distress Cardiovascular: normal rate, regular rhythm - SR on tele , no JVD Abdomen: normal bowel sounds, soft, non tender, G tube Genitourinary: s/p catheter Extremities: pedal pulses normal Neurologic/Psychiatric: abnormal gait - bedridden, awake, poorly responsive, Musculoskeletal: atrophy - BLE Microbiology Date/Time Source Procedure Growth Status 12/08/18 16:50 Blood Blood Culture - Final Proteus Mirabilis Complete 12/08/18 16:45 Blood Blood Culture - Preliminary NO GROWTH AFTER 48 HOURS Resulted Laboratory Tests 12/10/18 09:15: Arterial Blood pH 7.348L, Arterial Blood Partial Pressure CO2 32.7L, Arterial Blood Partial Pressure O2 104.0H, Arterial Blood HCO3 17.6*L, Arterial Blood Oxygen Saturation 97.5, Arterial Blood Base Excess -7.3L, Wong Test Positive 12/10/18 14:00: White Blood Count 11.3H, Red Blood Count 2.38L, Hemoglobin 7.8L, Hematocrit 23.7L, Mean Corpuscular Volume 99, Mean Corpuscular Hemoglobin 32.8H, Mean Corpuscular Hemoglobin Concent 33.0, Red Cell Distribution Width 15.9H, Platelet Count 120L, Mean Platelet Volume 11.6H, Neutrophils (%) (Auto) , Lymphocytes (%) (Auto) , Monocytes (%) (Auto) , Eosinophils (%) (Auto) , Basophils (%) (Auto) , Differential Total Cells Counted 100, Neutrophils % ( Manual) 94H, Lymphocytes % (Manual) 5L, Monocytes % (Manual) 1, Eosinophils % ( Manual) 0, Basophils % (Manual) 0, Band Neutrophils 0, Platelet Estimate DecreasedL, Platelet Morphology Normal, Anisocytosis 1+, Macrocytosis 1+, Sodium Level 152H, Potassium Level 3.7, Chloride Level 120H, Carbon Dioxide Level 15L, Anion Gap 17H, Blood Urea Nitrogen 54H, Creatinine 1.0, Estimat Glomerular Filtration Rate , Glucose Level 393H, Lactic Acid Level 0.30L, Calcium Level 7.4L, Total Bilirubin 0.5, Aspartate Amino Transf (AST/SGOT) 76H, Alanine Aminotransferase (ALT/SGPT) 76, Alkaline Phosphatase 75, Total Protein 5.4L, Albumin 1.4L, Globulin 4.0, Albumin/Globulin Ratio 0.3L 12/11/18 05:15: White Blood Count 11.3H, Red Blood Count 2.15L, Hemoglobin 7.0L, Hematocrit 20.8L, Mean Corpuscular Volume 97, Mean Corpuscular Hemoglobin 32.5H, Mean Corpuscular Hemoglobin Concent 33.6, Red Cell Distribution Width 15.4H, Platelet Count 116L, Mean Platelet Volume 10.3H, Neutrophils (%) (Auto) , Lymphocytes (%) (Auto) , Monocytes (%) (Auto) , Eosinophils (%) (Auto) , Basophils (%) (Auto) , Neutrophils % (Manual) [Pending], Lymphocytes % (Manual) [Pending], Platelet Estimate [Pending], Platelet Morphology [Pending], Sodium Level 151H, Potassium Level 3.2L, Chloride Level 119H, Carbon Dioxide Level 19L , Anion Gap 13, Blood Urea Nitrogen 39H, Creatinine 1.0, Estimat Glomerular Filtration Rate , Glucose Level 325H, Calcium Level 7.6L, Total Bilirubin 0.4, Aspartate Amino Transf (AST/SGOT) 50H, Alanine Aminotransferase (ALT/SGPT) 60, Alkaline Phosphatase 58, Total Protein 5.9L, Albumin 1.3L, Uric Acid 6.6, Phosphorus Level 1.9L, Magnesium Level 1.6L, Direct Bilirubin 0.2, Gamma Glutamyl Transpeptidase 23, Digoxin Level 0.7, Hepatitis A IgM Antibody [Pending ], Hepatitis B Surface Antigen [Pending], Hepatitis B Core IgM Antibody [Pending ], Hepatitis C Antibody [Pending], HIV (1&2) Antibody Rapid [Pending] Current Medications Medications (Trade) Dose Ordered Sig/Fransisco Route PRN Reason Start Time Stop Time Status Last Admin Dose Admin Acetaminophen (Tylenol) 650 mg Q4H PRN GT For Pain 12/07/18 17:00 01/06/19 16:59 12/10/18 13:15 Acetaminophen (Tylenol) 650 mg Q4H PRN GT fever 12/10/18 09:45 01/06/19 16:59 Albuterol/ Ipratropium (Albuterol/ Ipratropium) 3 ml Q4H PRN HHN Shortness of Breath 12/10/18 09:25 12/15/18 09:24 Allopurinol (Zyloprim) 100 mg DAILY GT 12/11/18 09:00 01/07/19 08:59 Atenolol (Tenormin) 50 mg Q12HR GT 12/10/18 21:00 01/06/19 20:59 Aztreonam 1 gm/ Dextrose 55 ml @ 110 mls/hr Q8HR IVPB 12/09/18 15:00 12/16/18 14:59 12/11/18 05:47 Chlorhexidine Gluconate (Sandra-Hex 2%) 1 applic DAILY@2000 TOPIC 12/10/18 20:00 01/09/19 19:59 Daptomycin 250 mg/ Sodium Chloride 55 ml @ 100 mls/hr Q24H IV 12/09/18 16:00 12/16/18 15:59 12/10/18 18:42 Dextrose 1,000 ml @ 75 mls/hr [id number] IV 12/10/18 09:00 01/09/19 08:59 12/10/18 22:08 Dextrose (Dextrose 50%) 25 ml Q30M PRN IV Hypoglycemia 12/10/18 14:00 01/09/19 13:59 Dextrose (Dextrose 50%) 50 ml Q30M PRN IV Hypoglycemia 12/10/18 14:00 01/09/19 13:59 Digoxin (Lanoxin) 0.125 mg QOD GT 12/11/18 09:00 01/10/19 08:59 Heparin Sodium (Porcine) (Heparin 5000 units/ml) 5,000 units EVERY 12 HOURS SUBQ 12/07/18 21:00 01/06/19 20:59 12/09/18 21:20 Heparin Sodium/ Sodium Chloride (Heparin 1000 units/500ml Premix) 1,000 unit ONCE PRN IV PICC 12/10/18 11:44 12/12/18 23:59 Insulin Aspart (NovoLOG) EVERY 6 HOURS SUBQ 12/10/18 15:00 01/09/19 14:59 12/11/18 05:48 Lidocaine HCl (Xylocaine 1% 30ml) 30 ml ONCE PRN INJ PICC LINE 12/10/18 11:43 12/12/18 23:59 Morphine Sulfate (Morphine Sulfate) 2 mg Q4H PRN IVP Moderate Pain (Pain Scale 4-6) 12/07/18 17:00 12/14/18 16:59 12/09/18 21:19 Nitroglycerin (Ntg) 0.4 mg Q5M PRN SL Prn Chest Pain 12/07/18 17:00 01/06/19 16:59 Ondansetron HCl (Zofran) 4 mg Q6H PRN IVP Nausea & Vomiting 12/07/18 17:00 01/06/19 16:59 Pantoprazole (Protonix) 40 mg EVERY 12 HOURS IVP 12/09/18 21:00 01/08/19 20:59 12/10/18 20:53 Phosphorus (Phospha 250 Neutral) 500 mg THREE TIMES A DAY GT 12/10/18 09:00 01/09/19 08:59 12/10/18 18:42 Polyethylene Glycol (Miralax) 17 gm DAILYPRN PRN GT Constipation 12/10/18 09:45 01/06/19 16:59 Temazepam (Restoril) 15 mg HSPRN PRN GT Insomnia 12/10/18 09:45 12/14/18 16:59 Bria So NP Dec 11, 2018 08:07
[2018-12-11] MEDS: Phospha 250 Neutral tab GT SCH ×3 (08:50→18:24)
[2018-12-11] MEDS: Pantoprazole Inj IVP SCH ×2 (08:50→21:21)
[2018-12-11] MEDS ORDERED: Digoxin 0.125mg tab GT SCH (09:00)
[2018-12-11] MEDS: Heparin 5000 units/ml inj SUBQ SCH ×2 (09:00→20:25)
[2018-12-11] MEDS ORDERED: Allopurinol 100mg Tab GT SCH (09:00)
--- NOTE | 2018-12-11 09:48 | Diagnostic Imaging Report ---
EXAM: XR Chest, 1 View CLINICAL HISTORY: SOB TECHNIQUE: Frontal view of the chest. COMPARISON: Chest x-ray, 12/07/18 1342 FINDINGS: Lungs: Interval worsening bilateral airspace opacities and interstitial thickening. Pleural space: Slightly worsening small left pleural effusion. No pneumothorax. Heart: Unremarkable. No cardiomegaly. Mediastinum: Unremarkable. Bones/joints: Unremarkable. Tubes, lines and devices: Tracheostomy tube is stable. IMPRESSION: 1. Interval worsening bilateral airspace opacities and interstitial thickening. May be edema or pneumonitis. 2. Slightly worsening small left pleural effusion.
[2018-12-11] MEDS ORDERED: Potassium Phosphate 30 MM in NS 275 ML IV SCH (11:00)
--- NOTE | 2018-12-11 11:11 | NUR ---
NURSE NOTES: HR up to 156, dr. Kelley notified, ordered Cardizem 10mg IVP, BP 100/82.
[2018-12-11] MEDS ORDERED: dilTIAZem HCl 25mg/5ml Inj IVP SCH (11:15)
--- NOTE | 2018-12-11 11:56 | NUR ---
NURSE NOTES: HR 98, BP 102/ 65, CONTINUE MONITORING.
[2018-12-11 12:00] VITALS: BP 94/67
--- NOTE | 2018-12-11 12:57 | Nephrology Progress Note ---
Assessment/Plan Problem List: (1) ATN (acute tubular necrosis) (2) Anemia (3) Feeding by G-tube (4) Acute and chronic respiratory failure (5) UTI (urinary tract infection) (6) Hyponatremia Assessment Patient have mainly Pre Renal Azotemia with possible underlying CKD- Low Na partly depletional, partly due to Hyperglycemia Other conditions as outlined: (1) Acute and chronic respiratory failure (dxrag-sh-ioofmbi) (2) Sepsis (3) Malnutrition and HypoAlbuminemia (4) UTI (urinary tract infection) (5) Anemia (6) Diabetes mellitus, type II (7) Colostomy care (8) Cerebral vascular disease (9) Decubitus ulcer of sacral region, stage 2 (10) Feeding by G-tube (11) 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 Hydrate- change IV to D5 now 50 cc / h up dose digoxin and tenormin K and Phos supplement as needed Keep electrolytes in check Keep BS and BP in check Subjective ROS Limited/Unobtainable: Yes Objective Objective Last 24 Hour Vital Signs Date Time Temp Pulse Resp B/P (MAP) Pulse Ox O2 Delivery O2 Flow Rate FiO2 12/11/18 12:00 Mechanical Ventilator 12/11/18 12:00 35 12/11/18 11:22 156 100/82 12/11/18 10:40 155 29 35 12/11/18 09:00 100 104/54 12/11/18 09:00 Mechanical Ventilator 12/11/18 08:49 100 12/11/18 08:45 95 31 35 12/11/18 08:00 100.0 100 30 104/54 (71) 98 12/11/18 08:00 35 12/11/18 08:00 95 12/11/18 06:40 91 29 35 12/11/18 05:22 91 30 35 12/11/18 04:00 97.6 89 28 114/68 (83) 100 12/11/18 04:00 35 12/11/18 04:00 66 12/11/18 04:00 Mechanical Ventilator 12/11/18 03:00 88 28 35 12/11/18 00:40 87 28 35 12/11/18 00:00 Mechanical Ventilator 12/11/18 00:00 98.4 86 25 103/64 (77) 100 12/11/18 00:00 35 12/11/18 00:00 91 12/10/18 23:01 89 27 35 12/10/18 20:50 83 25 35 12/10/18 20:42 80 96/62 12/10/18 20:00 87 12/10/18 20:00 97.7 88 25 103/65 (78) 99 12/10/18 20:00 Mechanical Ventilator 12/10/18 20:00 35 12/10/18 19:26 86 26 35 12/10/18 17:13 81 30 35 12/10/18 16:00 98.3 83 28 92/64 (73) 99 12/10/18 16:00 78 12/10/18 16:00 28 12/10/18 16:00 Mechanical Ventilator 12/10/18 15:51 76 26 35 12/10/18 15:34 85 12/10/18 13:55 98.9 12/10/18 13:43 86 29 35 12/10/18 13:26 151 99/77 Intake and Output 12/10/18 12/11/18 19:00 07:00 Intake Total 1040.0 ml 955 ml Output Total 1000 ml 750 ml Balance 40.0 ml 205 ml IV Total 1040.0 ml 955 ml Tube Feeding 0 ml Output Urine Total 800 ml 650 ml Stool Total 200 ml 100 ml Laboratory Tests 12/10/18 14:00: White Blood Count 11.3H, Red Blood Count 2.38L, Hemoglobin 7.8L, Hematocrit 23.7L, Mean Corpuscular Volume 99, Mean Corpuscular Hemoglobin 32.8H, Mean Corpuscular Hemoglobin Concent 33.0, Red Cell Distribution Width 15.9H, Platelet Count 120L, Mean Platelet Volume 11.6H, Neutrophils (%) (Auto) , Lymphocytes (%) (Auto) , Monocytes (%) (Auto) , Eosinophils (%) (Auto) , Basophils (%) (Auto) , Differential Total Cells Counted 100, Neutrophils % ( Manual) 94H, Lymphocytes % (Manual) 5L, Monocytes % (Manual) 1, Eosinophils % ( Manual) 0, Basophils % (Manual) 0, Band Neutrophils 0, Platelet Estimate DecreasedL, Platelet Morphology Normal, Anisocytosis 1+, Macrocytosis 1+, Sodium Level 152H, Potassium Level 3.7, Chloride Level 120H, Carbon Dioxide Level 15L, Anion Gap 17H, Blood Urea Nitrogen 54H, Creatinine 1.0, Estimat Glomerular Filtration Rate , Glucose Level 393H, Lactic Acid Level 0.30L, Calcium Level 7.4L, Total Bilirubin 0.5, Aspartate Amino Transf (AST/SGOT) 76H, Alanine Aminotransferase (ALT/SGPT) 76, Alkaline Phosphatase 75, Total Protein 5.4L, Albumin 1.4L, Globulin 4.0, Albumin/Globulin Ratio 0.3L 12/11/18 05:15: White Blood Count 11.3H, Red Blood Count 2.15L, Hemoglobin 7.0L, Hematocrit 20.8L, Mean Corpuscular Volume 97, Mean Corpuscular Hemoglobin 32.5H, Mean Corpuscular Hemoglobin Concent 33.6, Red Cell Distribution Width 15.4H, Platelet Count 116L, Mean Platelet Volume 10.3H, Neutrophils (%) (Auto) , Lymphocytes (%) (Auto) , Monocytes (%) (Auto) , Eosinophils (%) (Auto) , Basophils (%) (Auto) , Differential Total Cells Counted 100, Neutrophils % ( Manual) 91H, Lymphocytes % (Manual) 5L, Monocytes % (Manual) 2, Eosinophils % ( Manual) 1, Basophils % (Manual) 0, Band Neutrophils 1, Platelet Estimate DecreasedL, Platelet Morphology Normal, Anisocytosis 1+, Sodium Level 151H, Potassium Level 3.2L, Chloride Level 119H, Carbon Dioxide Level 19L, Anion Gap 13, Blood Urea Nitrogen 39H, Creatinine 1.0, Estimat Glomerular Filtration Rate , Glucose Level 325H, Calcium Level 7.6L, Total Bilirubin 0.4, Aspartate Amino Transf (AST/SGOT) 50H, Alanine Aminotransferase (ALT/SGPT) 60, Alkaline Phosphatase 58, Total Protein 5.9L, Albumin 1.3L, Uric Acid 6.6, Phosphorus Level 1.9L, Magnesium Level 1.6L, Direct Bilirubin 0.2, Gamma Glutamyl Transpeptidase 23, Digoxin Level 0.7, Hepatitis A IgM Antibody [Pending], Hepatitis B Surface Antigen [Pending], Hepatitis B Core IgM Antibody [Pending], Hepatitis C Antibody [Pending], HIV (1&2) Antibody Rapid Negative Height (Feet): 5 Height (Inches): 8.00 Weight (Pounds): 135 General Appearance: no apparent distress, lethargic Neck: other - trach Cardiovascular: tachycardia Respiratory/Chest: decreased breath sounds Abdomen: distended Migue Moreland MD Dec 11, 2018 12:57
--- NOTE | 2018-12-11 13:49 | Cardiology Progress Note ---
Assessment/Plan Assessment/Plan 1. Supraventricular tachycardia. recurrent 12/09 and 12/10 2. Renal insufficiency. 3. Hyponatremia. 4. Chronic ventilator dependence. 5. Guillain-[place] syndrome. 6. History of bowel resection. 7. History of CVA. 8. Chronic tracheostomy. 9. Diabetes mellitus. bp borderline i was called by rn 12/11 agin this am had recurrent svt iadn cardizem orderd ISS started of his bs cortisol was normal now that renal function is better will give more digoxin already on bb and seem to be breaking through wiht svt will dc bb plac beverley low dose caridzem via gtube and dig dig level tere await picc line but cannot be done until wednesday Subjective ROS Limited/Unobtainable: Yes Subjective on the vent Objective Last 24 Hour Vital Signs Date Time Temp Pulse Resp B/P (MAP) Pulse Ox O2 Delivery O2 Flow Rate FiO2 12/11/18 13:25 95 30 35 12/11/18 12:00 100 12/11/18 12:00 98.2 156 32 94/67 (76) 99 12/11/18 12:00 Mechanical Ventilator 12/11/18 12:00 35 12/11/18 11:22 156 100/82 12/11/18 10:40 155 29 35 12/11/18 09:00 100 104/54 12/11/18 09:00 Mechanical Ventilator 12/11/18 08:49 100 12/11/18 08:45 95 31 35 12/11/18 08:00 100.0 100 30 104/54 (71) 98 12/11/18 08:00 35 12/11/18 08:00 95 12/11/18 06:40 91 29 35 12/11/18 05:22 91 30 35 12/11/18 04:00 97.6 89 28 114/68 (83) 100 12/11/18 04:00 35 12/11/18 04:00 66 12/11/18 04:00 Mechanical Ventilator 12/11/18 03:00 88 28 35 12/11/18 00:40 87 28 35 12/11/18 00:00 Mechanical Ventilator 12/11/18 00:00 98.4 86 25 103/64 (77) 100 12/11/18 00:00 35 12/11/18 00:00 91 12/10/18 23:01 89 27 35 12/10/18 20:50 83 25 35 12/10/18 20:42 80 96/62 12/10/18 20:00 87 12/10/18 20:00 97.7 88 25 103/65 (78) 99 12/10/18 20:00 Mechanical Ventilator 12/10/18 20:00 35 12/10/18 19:26 86 26 35 12/10/18 17:13 81 30 35 12/10/18 16:00 98.3 83 28 92/64 (73) 99 12/10/18 16:00 78 12/10/18 16:00 28 12/10/18 16:00 Mechanical Ventilator 12/10/18 15:51 76 26 35 12/10/18 15:34 85 12/10/18 13:55 98.9 General Appearance: no apparent distress, on vent, patient on isolation Neck: supple Cardiovascular: regular rhythm Respiratory/Chest: rhonchi - bilaterally Abdomen: normal bowel sounds, non tender, soft Extremities: no swelling Intake and Output 12/10/18 12/11/18 19:00 07:00 Intake Total 1040.0 ml 955 ml Output Total 1000 ml 750 ml Balance 40.0 ml 205 ml IV Total 1040.0 ml 955 ml Tube Feeding 0 ml Output Urine Total 800 ml 650 ml Stool Total 200 ml 100 ml Laboratory Tests Test 12/10/18 14:00 12/11/18 05:15 White Blood Count 11.3 K/UL (4.8-10.8) H 11.3 K/UL (4.8-10.8) H Red Blood Count 2.38 M/UL (4.70-6.10) L 2.15 M/UL (4.70-6.10) L Hemoglobin 7.8 G/DL (14.2-18.0) L 7.0 G/DL (14.2-18.0) L Hematocrit 23.7 % (42.0-52.0) L 20.8 % (42.0-52.0) L Mean Corpuscular Volume 99 FL (80-99) 97 FL (80-99) Mean Corpuscular Hemoglobin 32.8 PG (27.0-31.0) H 32.5 PG (27.0-31.0) H Mean Corpuscular Hemoglobin Concent 33.0 G/DL (32.0-36.0) 33.6 G/DL (32.0-36.0) Red Cell Distribution Width 15.9 % (11.6-14.8) H 15.4 % (11.6-14.8) H Platelet Count 120 K/UL (150-450) L 116 K/UL (150-450) L Mean Platelet Volume 11.6 FL (6.5-10.1) H 10.3 FL (6.5-10.1) H Neutrophils (%) (Auto) % (45.0-75.0) % (45.0-75.0) Lymphocytes (%) (Auto) % (20.0-45.0) % (20.0-45.0) Monocytes (%) (Auto) % (1.0-10.0) % (1.0-10.0) Eosinophils (%) (Auto) % (0.0-3.0) % (0.0-3.0) Basophils (%) (Auto) % (0.0-2.0) % (0.0-2.0) Differential Total Cells Counted 100 100 Neutrophils % (Manual) 94 % (45-75) H 91 % (45-75) H Lymphocytes % (Manual) 5 % (20-45) L 5 % (20-45) L Monocytes % (Manual) 1 % (1-10) 2 % (1-10) Eosinophils % (Manual) 0 % (0-3) 1 % (0-3) Basophils % (Manual) 0 % (0-2) 0 % (0-2) Band Neutrophils 0 % (0-8) 1 % (0-8) Platelet Estimate Decreased L Decreased L Platelet Morphology Normal Normal Anisocytosis 1+ 1+ Macrocytosis 1+ Sodium Level 152 MMOL/L (136-145) H 151 MMOL/L (136-145) H Potassium Level 3.7 MMOL/L (3.5-5.1) 3.2 MMOL/L (3.5-5.1) L Chloride Level 120 MMOL/L (98-107) H 119 MMOL/L (98-107) H Carbon Dioxide Level 15 MMOL/L (21-32) L 19 MMOL/L (21-32) L Anion Gap 17 mmol/L (5-15) H 13 mmol/L (5-15) Blood Urea Nitrogen 54 mg/dL (7-18) H 39 mg/dL (7-18) H Creatinine 1.0 MG/DL (0.55-1.30) 1.0 MG/DL (0.55-1.30) Estimat Glomerular Filtration Rate mL/min (>60) mL/min (>60) Glucose Level 393 MG/DL (74-106) H 325 MG/DL (74-106) H Lactic Acid Level 0.30 mmol/L (0.4-2.0) L Calcium Level 7.4 MG/DL (8.5-10.1) L 7.6 MG/DL (8.5-10.1) L Total Bilirubin 0.5 MG/DL (0.2-1.0) 0.4 MG/DL (0.2-1.0) Aspartate Amino Transf (AST/SGOT) 76 U/L (15-37) H 50 U/L (15-37) H Alanine Aminotransferase (ALT/SGPT) 76 U/L (12-78) 60 U/L (12-78) Alkaline Phosphatase 75 U/L (46-116) 58 U/L (46-116) Total Protein 5.4 G/DL (6.4-8.2) L 5.9 G/DL (6.4-8.2) L Albumin 1.4 G/DL (3.4-5.0) L 1.3 G/DL (3.4-5.0) L Globulin 4.0 g/dL Albumin/Globulin Ratio 0.3 (1.0-2.7) L Uric Acid 6.6 MG/DL (2.6-7.2) Phosphorus Level 1.9 MG/DL (2.5-4.9) L Magnesium Level 1.6 MG/DL (1.8-2.4) L Direct Bilirubin 0.2 MG/DL (0.0-0.3) Gamma Glutamyl Transpeptidase 23 U/L (5-85) Digoxin Level 0.7 NG/ML (0.5-2.0) Hepatitis A IgM Antibody Pending Hepatitis B Surface Antigen Pending Hepatitis B Core IgM Antibody Pending Hepatitis C Antibody Pending HIV (1&2) Antibody Rapid Negative (NEGATIVE) Microbiology Date/Time Source Procedure Growth Status 12/08/18 16:50 Blood Blood Culture - Final Proteus Mirabilis Complete 12/08/18 16:45 Blood Blood Culture - Preliminary NO GROWTH AFTER 48 HOURS Resulted Donny Kelley MD Dec 11, 2018 13:49
--- NOTE | 2018-12-11 15:02 | Surgery Progress Note ---
Surgery Progress Note Subjective Additional Comments Patient seen examined and examined at bedside without any acute events leukocytosis of 11k. Resting comfortable labs noted chest x-ray noted Objective Last 24 Hour Vital Signs Date Time Temp Pulse Resp B/P (MAP) Pulse Ox O2 Delivery O2 Flow Rate FiO2 12/11/18 14:40 90 30 35 12/11/18 13:25 95 30 35 12/11/18 12:00 100 12/11/18 12:00 98.2 156 32 94/67 (76) 99 12/11/18 12:00 Mechanical Ventilator 12/11/18 12:00 35 12/11/18 11:22 156 100/82 12/11/18 10:40 155 29 35 12/11/18 09:00 100 104/54 12/11/18 09:00 Mechanical Ventilator 12/11/18 08:49 100 12/11/18 08:45 95 31 35 12/11/18 08:00 100.0 100 30 104/54 (71) 98 12/11/18 08:00 35 12/11/18 08:00 95 12/11/18 06:40 91 29 35 12/11/18 05:22 91 30 35 12/11/18 04:00 97.6 89 28 114/68 (83) 100 12/11/18 04:00 35 12/11/18 04:00 66 12/11/18 04:00 Mechanical Ventilator 12/11/18 03:00 88 28 35 12/11/18 00:40 87 28 35 12/11/18 00:00 Mechanical Ventilator 12/11/18 00:00 98.4 86 25 103/64 (77) 100 12/11/18 00:00 35 12/11/18 00:00 91 12/10/18 23:01 89 27 35 12/10/18 20:50 83 25 35 12/10/18 20:42 80 96/62 12/10/18 20:00 87 12/10/18 20:00 97.7 88 25 103/65 (78) 99 12/10/18 20:00 Mechanical Ventilator 12/10/18 20:00 35 12/10/18 19:26 86 26 35 12/10/18 17:13 81 30 35 12/10/18 16:00 98.3 83 28 92/64 (73) 99 12/10/18 16:00 78 12/10/18 16:00 28 12/10/18 16:00 Mechanical Ventilator 12/10/18 15:51 76 26 35 12/10/18 15:34 85 I&O Intake and Output 12/10/18 12/11/18 19:00 07:00 Intake Total 1040.0 ml 955 ml Output Total 1000 ml 750 ml Balance 40.0 ml 205 ml IV Total 1040.0 ml 955 ml Tube Feeding 0 ml Output Urine Total 800 ml 650 ml Stool Total 200 ml 100 ml Dressing: saturated Wound: clean Drains: other Cardiovascular: RSR Respiratory: clear Abdomen: soft, non-tender, present bowel sounds, non-distended Extremities: other Laboratory Tests Test 12/11/18 05:15 White Blood Count 11.3 K/UL (4.8-10.8) H Red Blood Count 2.15 M/UL (4.70-6.10) L Hemoglobin 7.0 G/DL (14.2-18.0) L Hematocrit 20.8 % (42.0-52.0) L Mean Corpuscular Volume 97 FL (80-99) Mean Corpuscular Hemoglobin 32.5 PG (27.0-31.0) H Mean Corpuscular Hemoglobin Concent 33.6 G/DL (32.0-36.0) Red Cell Distribution Width 15.4 % (11.6-14.8) H Platelet Count 116 K/UL (150-450) L Mean Platelet Volume 10.3 FL (6.5-10.1) H Neutrophils (%) (Auto) % (45.0-75.0) Lymphocytes (%) (Auto) % (20.0-45.0) Monocytes (%) (Auto) % (1.0-10.0) Eosinophils (%) (Auto) % (0.0-3.0) Basophils (%) (Auto) % (0.0-2.0) Differential Total Cells Counted 100 Neutrophils % (Manual) 91 % (45-75) H Lymphocytes % (Manual) 5 % (20-45) L Monocytes % (Manual) 2 % (1-10) Eosinophils % (Manual) 1 % (0-3) Basophils % (Manual) 0 % (0-2) Band Neutrophils 1 % (0-8) Platelet Estimate Decreased L Platelet Morphology Normal Anisocytosis 1+ Sodium Level 151 MMOL/L (136-145) H Potassium Level 3.2 MMOL/L (3.5-5.1) L Chloride Level 119 MMOL/L (98-107) H Carbon Dioxide Level 19 MMOL/L (21-32) L Anion Gap 13 mmol/L (5-15) Blood Urea Nitrogen 39 mg/dL (7-18) H Creatinine 1.0 MG/DL (0.55-1.30) Estimat Glomerular Filtration Rate mL/min (>60) Glucose Level 325 MG/DL (74-106) H Uric Acid 6.6 MG/DL (2.6-7.2) Calcium Level 7.6 MG/DL (8.5-10.1) L Phosphorus Level 1.9 MG/DL (2.5-4.9) L Magnesium Level 1.6 MG/DL (1.8-2.4) L Total Bilirubin 0.4 MG/DL (0.2-1.0) Direct Bilirubin 0.2 MG/DL (0.0-0.3) Gamma Glutamyl Transpeptidase 23 U/L (5-85) Aspartate Amino Transf (AST/SGOT) 50 U/L (15-37) H Alanine Aminotransferase (ALT/SGPT) 60 U/L (12-78) Alkaline Phosphatase 58 U/L (46-116) Total Protein 5.9 G/DL (6.4-8.2) L Albumin 1.3 G/DL (3.4-5.0) L Digoxin Level 0.7 NG/ML (0.5-2.0) Hepatitis A IgM Antibody Pending Hepatitis B Surface Antigen Pending Hepatitis B Core IgM Antibody Pending Hepatitis C Antibody Pending HIV (1&2) Antibody Rapid Negative (NEGATIVE) Plan Problems: (1) Decubitus skin ulcer Assessment & Plan: Pt presented on admission with multiple pressure injuries and Skin erosion. Pt has trach and no evidence of skin breakdown noted under trach collar. Unstageable pressure injury noted to L earlobe. Stable dry brown eschar noted(L) 0.7cm x (W)0.5cm. Gross erythema with denudement and multiple scattered partial thickness wounds noted to buttocks and base of scrotum extending into both posterior upper thighs.Moderate amt sanguineous exudate noted upon removal of drsgs. 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 Moderate amt sanguineous exudate noted (L)3cm x (W)1cm x (D)7.4cm.Erythema periwound secondary to skin erosions. Partially opened DTPI L ischium .Base of wound purple,fluctuant with red borders.Open areas at base of this wound are beefy red in colour.Moderate amt sanguineous exudate noted.(L)7cm x (W)6.8cm. DTPI R ischium.Wound is fluctuant-purple in center with surrounding Maroon colour, and is partially opened with a small area of 5% that is necrotic.(L) 6.5cm x (W)5.5cm. Red skin erosion periwound. Partial thickness pressure injury L hip. Base of wound is moist -viable. Edges adherent and dry. Periwound without erythema or induration(L)1.2cm x (W)0.5cm. Elongate partial thickness wound posterior upper L thigh .Base of wound is moist -viable .Small amt sanguineous exudate noted. (+) maceration along borders. Erythema without induration or elevation in skin temp noted.(L)2cm x (W )9.4cm. DTPI noted to R heel .Base of injury is indurated and maroon in colour. Periwound is firm without erythema. (L)1.5cm x (W)1cm.R heel without evidence of skin breakdown. Tx.Plan: Cleanse Sacrum with Saline. Loosely pack with Hydrogel impregnated Kerlix. Apply Triad Paste periwound. Cover with ABD pad. Daily and prn. Cleanse R and L ischial wounds with Saline. Apply Moisture Barrier Paste.Cover with abd pads Daily and prn. Apply Moisture Barrier to skin erosions on buttocks,scrotum, and posterior aspects of both thighs.Cover with ABD pad daily and prn. Cleanse wound L hip with Saline. Apply Moisture Barrier paste .Cover with Optifoam drsg Daily and prn. Cleanse wound posterior upper L thigh with saline .Apply Hydrogel. Cover with Optifoam drsg Daily and prn. Apply Cavilon Skin Barrier to L earlobe daily. Please monitor. Apply Cavilon Skin Barrier to L heel. Cover with Optifoam drsg. Change every 7 days and prn. Apply Cavilon Skin Barrier to R heel. Cover with Optifoam drsg .Change every 7 days and prn. Air fluidized mattress. Reposition every 2hours or as tolerated. Off-load heels with pillow. (2) Acute and chronic respiratory failure Assessment & Plan: cont with breathing treatments trach stable trach site clean will change dressings daily Javier Ricardo Dec 11, 2018 15:02
[2018-12-11 16:00] VITALS: BP 105/67
[2018-12-11] MEDS: DAPTOmycin 250 MG in NS 55 ML IV SCH (16:17)
[2018-12-11] MEDS ORDERED: Tubing IV Secondary IV ONE (16:25)
[2018-12-11] MEDS: dilTIAZem HCl 30mg tab GT SCH (18:24)
--- NOTE | 2018-12-11 19:19 | NUR ---
HAND-OFF: Report given to CHERELLE SCHILLING, CONDITION STABLE.
--- NOTE | 2018-12-11 19:20 | NUR ---
NURSE NOTES: Received patient from Marion Gonzalez RN. Patient is stable and sleeping showing no signs and symptoms of pain or distress. Will continue plan of care.
[2018-12-11 20:00] VITALS: BP 110/62
[2018-12-11] MEDS: Dyna-Hex 2% Top Sol 2oz TOPIC SCH (20:00)
--- NOTE | 2018-12-11 22:29 | General Progress Note ---
Assessment/Plan Assessment/Plan Assessment/Recs: # Anemia of chronic disease (or of iron deficiency) due to underlying chronic medical issues, multifactorial --> Anemia workup has been ordered --> No evidence of hemolysis is noted, peripheral smear has been reviewed. --> Hgb goal >7. Transfuse prn. --> Epogen or iron at this time is not particularly indicated --> Medications have been reviewed # Thrombocytopenia - potential causes multifactorial, evaluate liver and viral etiologies to begin, also could be related to underlying medications patient has received. --> Hep panel and HIV negative --> US abd to evaluate for cirrhosis and hsm reviewed --> Peripheral smear ordered to evaluate for blasts /schistocytes --> abx and other meds have been reviewed --> ok for ppx if plt >50k w/ either heparin or lovenox --> Transfuse if Plt < 20k and fever, or if Plt < 10k without fever # Severe prerenal azotemia, on jeanette saline at 150 mL/hr. #Hypouricemia, appreciate Pulmonary dairy nutrition consultant # Severe Sepsis, CXR: Probable small left pleural effusion, also evident on prior study 11/22/2017. -->appreciate ID recs # [email or web address], likely from UTI The timing of this note does not necessarily reflect the time of the patient was seen. Greatly appreciate consultation! Subjective ROS Limited/Unobtainable: Yes Allergies: Coded Allergies: PENICILLINS (Unverified Allergy, Unknown, 02/26/16) POLYMYXIN B (Unverified Allergy, Unknown, 02/26/16) VANCOMYCIN (Unverified Allergy, Unknown, 02/26/16) Subjective 12/11: seen by bedside, vent dependent, leukocytosis, 11, hgb 7, will transfuse, no events Objective Last 24 Hour Vital Signs Date Time Temp Pulse Resp B/P (MAP) Pulse Ox O2 Delivery O2 Flow Rate FiO2 12/11/18 21:30 90 30 35 12/11/18 20:00 89 12/11/18 20:00 Mechanical Ventilator 12/11/18 20:00 35 12/11/18 20:00 98.6 90 30 110/62 (78) 100 12/11/18 19:27 94 32 35 12/11/18 18:24 104 105/67 12/11/18 16:44 104 29 35 12/11/18 16:00 92 12/11/18 16:00 99.7 93 28 105/67 (80) 99 12/11/18 16:00 35 12/11/18 16:00 Mechanical Ventilator 12/11/18 14:40 90 30 35 12/11/18 13:25 95 30 35 12/11/18 12:00 100 12/11/18 12:00 98.2 156 32 94/67 (76) 99 12/11/18 12:00 Mechanical Ventilator 12/11/18 12:00 35 12/11/18 11:22 156 100/82 12/11/18 10:40 155 29 35 12/11/18 09:00 100 104/54 12/11/18 09:00 Mechanical Ventilator 12/11/18 08:49 100 12/11/18 08:45 95 31 35 12/11/18 08:00 100.0 100 30 104/54 (71) 98 12/11/18 08:00 35 12/11/18 08:00 95 12/11/18 06:40 91 29 35 12/11/18 05:22 91 30 35 12/11/18 04:00 97.6 89 28 114/68 (83) 100 12/11/18 04:00 35 12/11/18 04:00 66 12/11/18 04:00 Mechanical Ventilator 12/11/18 03:00 88 28 35 12/11/18 00:40 87 28 35 12/11/18 00:00 Mechanical Ventilator 12/11/18 00:00 98.4 86 25 103/64 (77) 100 12/11/18 00:00 35 12/11/18 00:00 91 12/10/18 23:01 89 27 35 Intake and Output 12/10/18 12/11/18 19:00 07:00 Intake Total 1040.0 ml 955 ml Output Total 1000 ml 750 ml Balance 40.0 ml 205 ml IV Total 1040.0 ml 955 ml Tube Feeding 0 ml Output Urine Total 800 ml 650 ml Stool Total 200 ml 100 ml Laboratory Tests 12/11/18 05:15: White Blood Count 11.3H, Red Blood Count 2.15L, Hemoglobin 7.0L, Hematocrit 20.8L, Mean Corpuscular Volume 97, Mean Corpuscular Hemoglobin 32.5H, Mean Corpuscular Hemoglobin Concent 33.6, Red Cell Distribution Width 15.4H, Platelet Count 116L, Mean Platelet Volume 10.3H, Neutrophils (%) (Auto) , Lymphocytes (%) (Auto) , Monocytes (%) (Auto) , Eosinophils (%) (Auto) , Basophils (%) (Auto) , Differential Total Cells Counted 100, Neutrophils % ( Manual) 91H, Lymphocytes % (Manual) 5L, Monocytes % (Manual) 2, Eosinophils % ( Manual) 1, Basophils % (Manual) 0, Band Neutrophils 1, Platelet Estimate DecreasedL, Platelet Morphology Normal, Anisocytosis 1+, Sodium Level 151H, Potassium Level 3.2L, Chloride Level 119H, Carbon Dioxide Level 19L, Anion Gap 13, Blood Urea Nitrogen 39H, Creatinine 1.0, Estimat Glomerular Filtration Rate , Glucose Level 325H, Uric Acid 6.6, Calcium Level 7.6L, Phosphorus Level 1.9L, Magnesium Level 1.6L, Total Bilirubin 0.4, Direct Bilirubin 0.2, Gamma Glutamyl Transpeptidase 23, Aspartate Amino Transf (AST/SGOT) 50H, Alanine Aminotransferase (ALT/SGPT) 60, Alkaline Phosphatase 58, Total Protein 5.9L, Albumin 1.3L, Digoxin Level 0.7, Hepatitis A IgM Antibody [Pending], Hepatitis B Surface Antigen [Pending], Hepatitis B Core IgM Antibody [Pending], Hepatitis C Antibody [Pending], HIV (1&2) Antibody Rapid Negative Height (Feet): 5 Height (Inches): 8.00 Weight (Pounds): 135 Objective Physical Exam HEENT: Eyes were normal. ENT, mucous membranes were not dehydrated. NECK: Supple. There was no goiter. No mass. No lymphadenopathy. There was no JVD. No bruits. Carotid upstroke was 2+. LUNGS: Clear. Vent++ HEART: PMI was in the fifth left intercostal space in midclavicular line. There was normal S1 and normal S2. There was no murmur. No arrhythmia. No S3. No S4. No pericardial rub. ABDOMEN: Soft and nontender without organomegaly. There were no masses palpable. Normal bowel sounds without bruits. There was no guarding. No rebound tenderness. No ascites. No hernia. No CVA tenderness. Liver span was 8 cm, mostly nontender. EXTREMITIES: No cyanosis, no clubbing, and no edema. Extremities were warm. Adarsh Kim MD Dec 11, 2018 22:29
[2018-12-12] VITALS: BP 113/70
[2018-12-12 04:00] VITALS: BP 109/70
[2018-12-12 04:44] LABS: HEMATOCRIT 24.2 % (42.0-52.0); HEMOGLOBIN 7.6 G/DL (14.2-18.0); MEAN CORPUSCULAR VOLUME 99 FL (80-99); PLATELET COUNT 154 K/UL (150-450); RED BLOOD COUNT 2.44 M/UL (4.70-6.10)
[2018-12-12] MEDS: Aztreonam Inj 1 GM in D5W 55 ML IVPB SCH ×3 (05:02→21:51)
[2018-12-12] MEDS: NovoLOG Insulin Flexpen SUBQ SCH ×5 (05:03→20:49)
[2018-12-12 05:19] LABS: ALANINE AMINOTRANSFERASE 49 U/L (12-78); ALBUMIN 1.3 G/DL (3.4-5.0); ALKALINE PHOSPHATASE 70 U/L (46-116); ASPARTATE AMINO TRANSFERASE 34 U/L (15-37); BILIRUBIN,DIRECT 0.1 MG/DL (0.0-0.3); BILIRUBIN,TOTAL 0.4 MG/DL (0.2-1.0)
[2018-12-12 05:22] LABS: ANION GAP 15 mmol/L (5-15); BLOOD UREA NITROGEN 26 mg/dL (7-18); CALCIUM 7.7 MG/DL (8.5-10.1); CARBON DIOXIDE 16 MMOL/L (21-32); CHLORIDE 118 MMOL/L (98-107); PHOSPHORUS 3.5 MG/DL (2.5-4.9); POTASSIUM 3.8 MMOL/L (3.5-5.1); SODIUM 149 MMOL/L (136-145)
--- NOTE | 2018-12-12 07:15 | NUR ---
HAND-OFF: Report given to SHAKIR PEREZ.
--- NOTE | 2018-12-12 07:16 | NUR ---
NURSE NOTES: RECEIVED PATIENT FROM Kita VILLARREAL RN. PATIENT IS LYING IN BED, AWAKE, NONVERBAL. GT IN PLACE, NPO FOR NOW. COLOSTOMY NOTED. NOTED SUPRAPUBIC, CONNECTED TO BAG, PATENT AND DRAINING URINE. SKIN ALTERATION NOTED. IV ON L FA G24, IVF RUNNING D5 W AT 75CC/HR FOR 20HOURS. CALL LIGHT WITHIN REACH. BED AT LOWEST POSITION. SIDE RAILS UP. WILL CONTINUE TO MONITOR.
[2018-12-12 08:00] VITALS: BP 115/75
[2018-12-12] MEDS: Phospha 250 Neutral tab GT SCH ×3 (08:19→18:18)
[2018-12-12] MEDS: Pantoprazole Inj IVP SCH ×2 (08:19→20:47)
[2018-12-12] MEDS: dilTIAZem HCl 30mg tab GT SCH ×2 (08:19→18:13)
[2018-12-12] MEDS: Heparin 5000 units/ml inj SUBQ SCH ×2 (08:19→20:50)
[2018-12-12] MEDS ORDERED: dilTIAZem HCl 25mg/5ml Inj IVP PRN (08:45)
--- NOTE | 2018-12-12 10:44 | Diagnostic Imaging Report ---
Indication: Shortness of breath Technique: One view of the chest Comparison: 12/11/2018 Findings: The heart is enlarged. There is a moderate left pleural effusion again demonstrated. Bilateral interstitial and airspace opacities persist, unchanged. Tracheostomy is again demonstrated Impression: Stable moderate left pleural effusion Bilateral interstitial and airspace opacities persist, suspect combination of chronic interstitial fibrotic changes and superimposed acute disease
--- NOTE | 2018-12-12 11:41 | NUR ---
RADIOLOGY DEPT CHEST X-RAY DONE.-P.DYE
[2018-12-12 12:00] VITALS: BP 115/75
--- NOTE | 2018-12-12 12:14 | NUR ---
RD ASSESSMENT & RECOMMENDATIONS SEE CARE ACTIVITY FOR COMPLETE ASSESSMENT DAILY ESTIMATED NEEDS: Needs based on critical care, wound/ 63kg 22-30 kcals/kg 4030-6325 total kcals 1.5-2 g protein/kg 94-126 g total protein 25-30 mL/kg 1094-2576 total fluid mLs NUTRITION DIAGNOSIS: 1) Increased kcal and protein needs r/t wound healing as evidenced by pt w/ multiple advanced wounds, including Unstageable wound at L earlobe. 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 CURRENT TF:Glucerna 1.2 @65ml/hr x20 hrs - held for ultrasound ENTERAL NUTRITION RECOMMENDATIONS: Glucerna 1.2 @ 55ml/hr x 24 hrs + Prosource 1pkt BID to provide 1320ml, 1584kcal, 79+ 22g prot, 930ml free water - Resume TF as medically appropriate. - Rec Glucerna 1.2 @ goal rate of 55ml/hr x 24 hrs - Add Prosource 1pkt BID for protein needs - Flush per MD/ keep HOB >30degrees ADDITIONAL RECOMMENDATIONS: * REcalibrate bed scale wt for accurate CBW * Rec long acting insulin for improved BG control- POC glu in the 300's * Wound care: add MITCHELL BID + Vit C 250mg BID * Check lytes daily, replete as needed
--- NOTE | 2018-12-12 12:32 | Pulmonolgy Critical Care Note ---
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 Respiratory: monitor respiratory rate, adjust FIO2, CXR, other - large amount of secretions, no sputum yet Cardiac: continue to monitor HR/BP Renal: F/U I&O Infectious Disease: check cultures Gastrointestinal: continue feedings/current rate Endocrine: monitor blood sugar, continue sliding scale insulin Hematologic: transfuse if hgb<8.5 Neurologic: PRN Ativan, keep patient comfortable Affect: PRN ativan Prophylaxis: Heparin Notes Reviewed: cardio, 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 with: nurses, consultants, keycase assemblereducation site manager - Objective Last 24 Hour Vital Signs Date Time Temp Pulse Resp B/P (MAP) Pulse Ox O2 Delivery O2 Flow Rate FiO2 12/12/18 12:00 35 12/12/18 10:42 111 25 35 12/12/18 09:05 116 26 35 12/12/18 08:19 189 115/75 12/12/18 08:18 186 12/12/18 08:00 35 12/12/18 08:00 98.8 103 20 115/75 (88) 99 12/12/18 08:00 95 12/12/18 07:46 101 27 35 12/12/18 05:30 89 26 35 12/12/18 04:02 84 12/12/18 04:00 35 12/12/18 04:00 98.5 100 24 109/70 (83) 97 12/12/18 04:00 Mechanical Ventilator 12/12/18 03:30 90 25 35 12/12/18 01:30 91 28 35 12/12/18 00:00 Mechanical Ventilator 12/12/18 00:00 98.4 96 27 113/70 (84) 100 12/11/18 23:30 90 27 35 12/11/18 23:05 87 12/11/18 21:30 90 30 35 12/11/18 20:00 89 12/11/18 20:00 Mechanical Ventilator 12/11/18 20:00 35 12/11/18 20:00 98.6 90 30 110/62 (78) 100 12/11/18 19:27 94 32 35 12/11/18 18:24 104 105/67 12/11/18 16:44 104 29 35 12/11/18 16:00 92 12/11/18 16:00 99.7 93 28 105/67 (80) 99 12/11/18 16:00 35 12/11/18 16:00 Mechanical Ventilator 12/11/18 14:40 90 30 35 12/11/18 13:25 95 30 35 Status: awake Condition: critical HEENT: atraumatic, normocephalic Neck: full ROM Lungs: rales, rhonchi Decubiti: stage Accucheck: 261 Critical Care - Subjective ROS Limited/Unobtainable: Yes Condition: critical EKG Rhythm: Sinus Rhythm FI02: 35 Vent Support Breath Rate: 18 Vent Support Mode: AC Vent Tidal Volume: 500 Sputum Amount: Small PEEP: 5.0 PIP: 23 Tube Feeding Amount: 0 I&O: Intake and Output 12/11/18 12/12/18 19:00 07:00 Intake Total 405.0 ml 710 ml Output Total 1200 ml 1050 ml Balance -795.0 ml -340 ml IV Total 405.0 ml 710 ml Output Urine Total 1000 ml 700 ml Stool Total 200 ml 350 ml CXR: extensive interstitial infiltrate Labs: Laboratory Tests Test 12/12/18 03:00 White Blood Count 16.0 K/UL (4.8-10.8) H Red Blood Count 2.44 M/UL (4.70-6.10) L Hemoglobin 7.6 G/DL (14.2-18.0) L Hematocrit 24.2 % (42.0-52.0) L Mean Corpuscular Volume 99 FL (80-99) Mean Corpuscular Hemoglobin 31.2 PG (27.0-31.0) H Mean Corpuscular Hemoglobin Concent 31.5 G/DL (32.0-36.0) L Red Cell Distribution Width 16.0 % (11.6-14.8) H Platelet Count 154 K/UL (150-450) Mean Platelet Volume 9.6 FL (6.5-10.1) Neutrophils (%) (Auto) % (45.0-75.0) Lymphocytes (%) (Auto) % (20.0-45.0) Monocytes (%) (Auto) % (1.0-10.0) Eosinophils (%) (Auto) % (0.0-3.0) Basophils (%) (Auto) % (0.0-2.0) Differential Total Cells Counted 100 Neutrophils % (Manual) 86 % (45-75) H Lymphocytes % (Manual) 8 % (20-45) L Monocytes % (Manual) 1 % (1-10) Eosinophils % (Manual) 1 % (0-3) Basophils % (Manual) 0 % (0-2) Band Neutrophils 4 % (0-8) Platelet Estimate Adequate Platelet Morphology Normal Anisocytosis 1+ Rouleau Occasional Sodium Level 149 MMOL/L (136-145) H Potassium Level 3.8 MMOL/L (3.5-5.1) Chloride Level 118 MMOL/L (98-107) H Carbon Dioxide Level 16 MMOL/L (21-32) L Anion Gap 15 mmol/L (5-15) Blood Urea Nitrogen 26 mg/dL (7-18) H Creatinine 1.0 MG/DL (0.55-1.30) Estimat Glomerular Filtration Rate mL/min (>60) Glucose Level 248 MG/DL (74-106) H Uric Acid 5.8 MG/DL (2.6-7.2) Calcium Level 7.7 MG/DL (8.5-10.1) L Phosphorus Level 3.5 MG/DL (2.5-4.9) Magnesium Level 2.5 MG/DL (1.8-2.4) H Total Bilirubin 0.4 MG/DL (0.2-1.0) Direct Bilirubin 0.1 MG/DL (0.0-0.3) Aspartate Amino Transf (AST/SGOT) 34 U/L (15-37) Alanine Aminotransferase (ALT/SGPT) 49 U/L (12-78) Alkaline Phosphatase 70 U/L (46-116) Total Protein 6.3 G/DL (6.4-8.2) L Albumin 1.3 G/DL (3.4-5.0) L Digoxin Level 0.7 NG/ML (0.5-2.0) Abhishek Guerra MD Dec 12, 2018 12:32
--- NOTE | 2018-12-12 13:03 | NUR ---
HOSE SUSPENDER CUTTERJOB SITE SUPERVISOR SI:SEPSIS VS: BP 115/75, P 189, T 98.2, RR 27, SpO2 100 on Vent FiO2 35 WBC 16.0, RBC 2.44, Hgb 7.6, Hct 24.[address] Impression: Findings consistent with uncomplicated nonnecrotizing acute pancreatitis. IS:ATENOLOL 25mg DIGOXIN 0.25mg NOVOLOG SUBQ DILTIAZEM 10mg PHOSPHORUS 500mg PROTONIX 40mg DAPTOMYCIN 250mg AZTREONAM 55ml HEPARIN SUBQ PICC PLACEMENT SDU STATUS
[2018-12-12] MEDS ORDERED: Isovue-300 100ml vial INJ PRN (13:45)
--- NOTE | 2018-12-12 13:47 | Infectious Diseases Prog Note ---
Assessment/Plan Assessment/Plan Assessment: Severe Sepsis 2ry to GNR -CXR: Probable small left pleural effusion, also evident on prior study 2017. Bilateral interstitial disease, unchanged, suspect chronic. Correlate with clinical findings GNR bacteremia, likely from UTI -u/a 10-15, nit neg, luek +3; ucx 50-60k Enterococcus (Vanco resist; S AMp), 40-50 K Proteus -3/ Bcx 3/4 Proteus; / Bcx 1/4 Proteus (S Aztreonam; R Cipro, levo; I Imipenem) Fever - resolved Leukocytosis , increased- r/o occult abscess Hyponatremia, improving MAULIK, improving dysphagia s/p peg COPD GBS quadriplegia chronic resp failure s/p trach HTN CVA, nonverbal anemia SN[facility] resident Plan: -Continue Aztreonam #4/ for Proteus UTi and bacteremia; and IV Daptomycin #3/ 5 for enterococcus UTI - Bcx x2 -Sp cx -CT abd/p w/ given recurrent bactremia and increased WBC to eval for abscess. -Monitor CBC/CMP, temperatures -PEG/Trach care -Aspiration precautions -CPK am Will continue to follow along with you. Subjective Allergies: Coded Allergies: PENICILLINS (Unverified Allergy, Unknown, 02/26/16) POLYMYXIN B (Unverified Allergy, Unknown, 02/26/16) VANCOMYCIN (Unverified Allergy, Unknown, 02/26/16) Subjective afebrile >24hrs repeat Bcx p no leukocytosis Objective Vital Signs Last 24 Hour Vital Signs Date Time Temp Pulse Resp B/P (MAP) Pulse Ox O2 Delivery O2 Flow Rate FiO2 12/12/18 13:06 108 23 35 12/12/18 12:00 35 12/12/18 12:00 Mechanical Ventilator 12/12/18 12:00 98.8 103 18 115/75 (88) 100 12/12/18 10:42 111 25 35 12/12/18 09:05 116 26 35 12/12/18 08:19 189 115/75 12/12/18 08:18 186 12/12/18 08:00 35 12/12/18 08:00 98.8 103 20 115/75 (88) 99 12/12/18 08:00 95 12/12/18 08:00 Mechanical Ventilator 12/12/18 07:46 101 27 35 12/12/18 05:30 89 26 35 12/12/18 04:02 84 12/12/18 04:00 35 12/12/18 04:00 98.5 100 24 109/70 (83) 97 12/12/18 04:00 Mechanical Ventilator 12/12/18 03:30 90 25 35 12/12/18 01:30 91 28 35 12/12/18 00:00 Mechanical Ventilator 12/12/18 00:00 98.4 96 27 113/70 (84) 100 12/11/18 23:30 90 27 35 12/11/18 23:05 87 12/11/18 21:30 90 30 35 12/11/18 20:00 89 12/11/18 20:00 Mechanical Ventilator 12/11/18 20:00 35 12/11/18 20:00 98.6 90 30 110/62 (78) 100 12/11/18 19:27 94 32 35 12/11/18 18:24 104 105/67 12/11/18 16:44 104 29 35 12/11/18 16:00 92 12/11/18 16:00 99.7 93 28 105/67 (80) 99 12/11/18 16:00 35 12/11/18 16:00 Mechanical Ventilator 12/11/18 14:40 90 30 35 Height (Feet): 5 Height (Inches): 8.00 Weight (Pounds): 135 Objective HEENT: Eyes were normal. ENT, mucous membranes were not dehydrated. NECK: Supple. There was no goiter. No mass. No lymphadenopathy. There was no JVD. No bruits. Carotid upstroke was 2+. LUNGS: Clear. HEART: PMI was in the fifth left intercostal space in midclavicular line. There was normal S1 and normal S2. There was no murmur. No arrhythmia. No S3. No S4. No pericardial rub. ABDOMEN: Soft and nontender without organomegaly. There were no masses palpable. Normal bowel sounds without bruits. There was no guarding. No rebound tenderness. No ascites. No hernia. No CVA tenderness. EXTREMITIES: No cyanosis, no clubbing, and no edema. Extremities were warm. Laboratory Tests Test 12/12/18 03:00 White Blood Count 16.0 K/UL (4.8-10.8) H Red Blood Count 2.44 M/UL (4.70-6.10) L Hemoglobin 7.6 G/DL (14.2-18.0) L Hematocrit 24.2 % (42.0-52.0) L Mean Corpuscular Volume 99 FL (80-99) Mean Corpuscular Hemoglobin 31.2 PG (27.0-31.0) H Mean Corpuscular Hemoglobin Concent 31.5 G/DL (32.0-36.0) L Red Cell Distribution Width 16.0 % (11.6-14.8) H Platelet Count 154 K/UL (150-450) Mean Platelet Volume 9.6 FL (6.5-10.1) Neutrophils (%) (Auto) % (45.0-75.0) Lymphocytes (%) (Auto) % (20.0-45.0) Monocytes (%) (Auto) % (1.0-10.0) Eosinophils (%) (Auto) % (0.0-3.0) Basophils (%) (Auto) % (0.0-2.0) Differential Total Cells Counted 100 Neutrophils % (Manual) 86 % (45-75) H Lymphocytes % (Manual) 8 % (20-45) L Monocytes % (Manual) 1 % (1-10) Eosinophils % (Manual) 1 % (0-3) Basophils % (Manual) 0 % (0-2) Band Neutrophils 4 % (0-8) Platelet Estimate Adequate Platelet Morphology Normal Anisocytosis 1+ Rouleau Occasional Sodium Level 149 MMOL/L (136-145) H Potassium Level 3.8 MMOL/L (3.5-5.1) Chloride Level 118 MMOL/L (98-107) H Carbon Dioxide Level 16 MMOL/L (21-32) L Anion Gap 15 mmol/L (5-15) Blood Urea Nitrogen 26 mg/dL (7-18) H Creatinine 1.0 MG/DL (0.55-1.30) Estimat Glomerular Filtration Rate mL/min (>60) Glucose Level 248 MG/DL (74-106) H Uric Acid 5.8 MG/DL (2.6-7.2) Calcium Level 7.7 MG/DL (8.5-10.1) L Phosphorus Level 3.5 MG/DL (2.5-4.9) Magnesium Level 2.5 MG/DL (1.8-2.4) H Total Bilirubin 0.4 MG/DL (0.2-1.0) Direct Bilirubin 0.1 MG/DL (0.0-0.3) Aspartate Amino Transf (AST/SGOT) 34 U/L (15-37) Alanine Aminotransferase (ALT/SGPT) 49 U/L (12-78) Alkaline Phosphatase 70 U/L (46-116) Total Protein 6.3 G/DL (6.4-8.2) L Albumin 1.3 G/DL (3.4-5.0) L Digoxin Level 0.7 NG/ML (0.5-2.0) Current Medications Medications (Trade) Dose Ordered Sig/[place] Route PRN Reason Start Time Stop Time Status Last Admin Dose Admin Acetaminophen (Tylenol) 650 mg Q4H PRN GT For Pain 12/07/18 17:00 01/06/19 16:59 12/10/18 13:15 Acetaminophen (Tylenol) 650 mg Q4H PRN GT fever 12/10/18 09:45 01/06/19 16:59 Albuterol/ Ipratropium (Albuterol/ Ipratropium) 3 ml Q4H PRN HHN Shortness of Breath 12/10/18 09:25 12/15/18 09:24 Aztreonam 1 gm/ Dextrose 55 ml @ 110 mls/hr Q8HR IVPB 12/09/18 15:00 12/16/18 14:59 12/12/18 05:02 Chlorhexidine Gluconate (Sandra-Hex 2%) 1 applic DAILY@2000 TOPIC 12/10/18 20:00 01/09/19 19:59 Daptomycin 250 mg/ Sodium Chloride 55 ml @ 100 mls/hr Q24H IV 12/09/18 16:00 12/16/18 15:59 12/11/18 16:17 Dextrose 1,000 ml @ 50 mls/hr Q20H IV 12/11/18 13:00 01/10/19 12:59 12/12/18 08:45 Dextrose (Dextrose 50%) 25 ml Q30M PRN IV Hypoglycemia 12/10/18 14:00 01/09/19 13:59 Dextrose (Dextrose 50%) 50 ml Q30M PRN IV Hypoglycemia 12/10/18 14:00 01/09/19 13:59 Digoxin (Lanoxin) 0.25 mg DAILY GT 12/12/18 09:00 01/10/19 08:59 12/12/18 08:18 Diltiazem HCl (Cardizem) 10 mg BIDPRN PRN IVP FOR HR >140 12/12/18 08:45 01/11/19 08:44 Diltiazem HCl (Cardizem) 30 mg BID GT 12/11/18 18:00 01/10/19 17:59 12/12/18 08:19 Heparin Sodium (Porcine) (Heparin 5000 units/ml) 5,000 units EVERY 12 HOURS SUBQ 12/07/18 21:00 01/06/19 20:59 12/09/18 21:20 Heparin Sodium/ Sodium Chloride (Heparin 1000 units/500ml Premix) 1,000 unit ONCE PRN IV PICC 12/10/18 11:44 12/12/18 23:59 Insulin Aspart (NovoLOG) EVERY 4 HOURS SUBQ 12/12/18 05:00 01/09/19 04:59 12/12/18 08:47 Lidocaine HCl (Xylocaine 1% 30ml) 30 ml ONCE PRN INJ PICC LINE 12/10/18 11:43 12/12/18 23:59 Morphine Sulfate (Morphine Sulfate) 2 mg Q4H PRN IVP Moderate Pain (Pain Scale 4-6) 12/07/18 17:00 12/14/18 16:59 12/09/18 21:19 Nitroglycerin (Ntg) 0.4 mg Q5M PRN SL Prn Chest Pain 12/07/18 17:00 01/06/19 16:59 Ondansetron HCl (Zofran) 4 mg Q6H PRN IVP Nausea & Vomiting 12/07/18 17:00 01/06/19 16:59 Pantoprazole (Protonix) 40 mg EVERY 12 HOURS IVP 12/09/18 21:00 01/08/19 20:59 12/12/18 08:19 Phosphorus (Phospha 250 Neutral) 500 mg THREE TIMES A DAY GT 12/10/18 09:00 01/09/19 08:59 12/12/18 08:19 Polyethylene Glycol (Miralax) 17 gm DAILYPRN PRN GT Constipation 12/10/18 09:45 01/06/19 16:59 Temazepam (Restoril) 15 mg HSPRN PRN GT Insomnia 12/10/18 09:45 12/14/18 16:59 Aminah Champagne M.D. Dec 12, 2018 13:47
--- NOTE | 2018-12-12 15:39 | Nephrology Progress Note ---
Assessment/Plan Problem List: (1) ATN (acute tubular necrosis) (2) Anemia (3) Feeding by G-tube (4) Acute and chronic respiratory failure (5) UTI (urinary tract infection) (6) Hyponatremia Assessment Patient have mainly Pre Renal Azotemia with possible underlying CKD- Low Na partly depletional, partly due to Hyperglycemia Other conditions as outlined: (1) Acute and chronic respiratory failure ([id number]) (2) Sepsis (3) Malnutrition and HypoAlbuminemia (4) UTI (urinary tract infection) (5) Anemia (6) Diabetes mellitus, type II (7) Colostomy care (8) Cerebral vascular disease (9) Decubitus ulcer of sacral region, stage 2 (10) Feeding by G-tube (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 Hydrate- change IV to D5 now 50 cc / h up dose digoxin and tenormin K and Phos supplement as needed Keep electrolytes in check Keep BS and BP in check Subjective ROS Limited/Unobtainable: Yes Objective Objective Last 24 Hour Vital Signs Date Time Temp Pulse Resp B/P (MAP) Pulse Ox O2 Delivery O2 Flow Rate FiO2 12/12/18 13:06 108 23 35 12/12/18 12:00 111 12/12/18 12:00 35 12/12/18 12:00 Mechanical Ventilator 12/12/18 12:00 98.8 103 18 115/75 (88) 100 12/12/18 10:42 111 25 35 12/12/18 09:05 116 26 35 12/12/18 08:19 189 115/75 12/12/18 08:18 186 12/12/18 08:00 35 12/12/18 08:00 98.8 103 20 115/75 (88) 99 12/12/18 08:00 95 12/12/18 08:00 Mechanical Ventilator 12/12/18 07:46 101 27 35 12/12/18 05:30 89 26 35 12/12/18 04:02 84 12/12/18 04:00 35 12/12/18 04:00 98.5 100 24 109/70 (83) 97 12/12/18 04:00 Mechanical Ventilator 12/12/18 03:30 90 25 35 12/12/18 01:30 91 28 35 12/12/18 00:00 Mechanical Ventilator 12/12/18 00:00 98.4 96 27 113/70 (84) 100 12/11/18 23:30 90 27 35 12/11/18 23:05 87 12/11/18 21:30 90 30 35 12/11/18 20:00 89 12/11/18 20:00 Mechanical Ventilator 12/11/18 20:00 35 12/11/18 20:00 98.6 90 30 110/62 (78) 100 12/11/18 19:27 94 32 35 12/11/18 18:24 104 105/67 12/11/18 16:44 104 29 35 12/11/18 16:00 92 12/11/18 16:00 99.7 93 28 105/67 (80) 99 12/11/18 16:00 35 12/11/18 16:00 Mechanical Ventilator Intake and Output 12/11/18 12/12/18 19:00 07:00 Intake Total 405.0 ml 710 ml Output Total 1200 ml 1050 ml Balance -795.0 ml -340 ml IV Total 405.0 ml 710 ml Output Urine Total 1000 ml 700 ml Stool Total 200 ml 350 ml Laboratory Tests 12/12/18 03:00: White Blood Count 16.0H, Red Blood Count 2.44L, Hemoglobin 7.6L, Hematocrit 24.2L, Mean Corpuscular Volume 99, Mean Corpuscular Hemoglobin 31.2H, Mean Corpuscular Hemoglobin Concent 31.5L, Red Cell Distribution Width 16.0H, Platelet Count 154, Mean Platelet Volume 9.6, Neutrophils (%) (Auto) , Lymphocytes (%) (Auto) , Monocytes (%) (Auto) , Eosinophils (%) (Auto) , Basophils (%) (Auto) , Differential Total Cells Counted 100, Neutrophils % ( Manual) 86H, Lymphocytes % (Manual) 8L, Monocytes % (Manual) 1, Eosinophils % ( Manual) 1, Basophils % (Manual) 0, Band Neutrophils 4, Platelet Estimate Adequate, Platelet Morphology Normal, Anisocytosis 1+, Rouleau Occasional, Sodium Level 149H, Potassium Level 3.8, Chloride Level 118H, Carbon Dioxide Level 16L, Anion Gap 15, Blood Urea Nitrogen 26H, Creatinine 1.0, Estimat Glomerular Filtration Rate , Glucose Level 248H, Uric Acid 5.8, Calcium Level 7.7L, Phosphorus Level 3.5, Magnesium Level 2.5H, Total Bilirubin 0.4, Direct Bilirubin 0.1, Aspartate Amino Transf (AST/SGOT) 34, Alanine Aminotransferase ( ALT/SGPT) 49, Alkaline Phosphatase 70, Total Protein 6.3L, Albumin 1.3L, Digoxin Level 0.7 Height (Feet): 5 Height (Inches): 8.00 Weight (Pounds): 135 General Appearance: no apparent distress, lethargic Neck: limited range of motion Respiratory/Chest: decreased breath sounds Abdomen: distended Migue Moreland MD Dec 12, 2018 15:38
[2018-12-12] MEDS: DAPTOmycin 250 MG in NS 55 ML IV SCH (15:58)
--- NOTE | 2018-12-12 15:59 | Diagnostic Imaging Report ---
Indication: Abnormal white blood cell count, abnormal liver function tests, abnormal renal function tests Technique: Ross-scale and duplex images of the upper abdomen were obtained Comparison: Reference made to abdomen pelvis CT dated 03/30/2016 Findings: Gallbladder demonstrates gallstones. It is nondistended. No gross wall thickening. Patient was unable to report sonographic Crawford's sign. Common bile duct measures 3 mm in diameter. No intrahepatic biliary ductal dilatation. Liver demonstrates normal echogenicity, no focal abnormality. Portal vein and hepatic veins are patent. Pancreas is unremarkable. Spleen is unremarkable. Left kidney measures 11.7 cm in length. Right kidney measures 12.1 cm length. Both kidneys demonstrate normal echogenicity. There is no hydronephrosis. Small cysts are seen in the right kidney . Abdominal aorta is partially obscured by bowel gas, visualized portions are non-aneurysmal . Impression: Cholelithiasis. Also demonstrated on prior CT scan. Negative for dilated bile ducts No other acute or significant abnormality Incidental finding of small right renal cysts Note nonvisualization of portions of the abdominal aorta
[2018-12-12 16:00] VITALS: BP 104/60
--- NOTE | 2018-12-12 16:04 | Diagnostic Imaging Report ---
Indications: Needs long-term IV access Technique: Procedure performed at bedside. Procedural timeout performed. Ultrasound confirms patent compressible left brachial vein. Total sterile technique, including sterile probe cover and sterile gel, sterile gloves, hand hygiene, hat, mask,, sterile gown, large sterile drape, and preparation with 2% chlorhexidine utilized. Local anesthesia with 1% lidocaine. Under real-time ultrasound guidance, puncture left brachial vein using 21-gauge needle, passage 0.018 guidewire, exchange for 4 [place] peel-away sheath. 4 [place] Bard dual-lumen power PICC cut to 47 cm. It was inserted through the peel-away sheath. Peel-away sheath and guidewire removed. Catheter fixed to the skin. Both catheter ports aspirated and flushed. Patient tolerated procedure well, without immediate complication. Followup chest x-ray obtained, documents catheter tip position at the cavoatrial junction Impression: Successful bedside placement of left arm PICC under sonographic guidance, as described above.
--- NOTE | 2018-12-12 16:24 | Surgery Progress Note ---
Surgery Progress Note Subjective Additional Comments picc line inserted. leukocytosis. electrolyte abnormal. exam unchanged. Objective Last 24 Hour Vital Signs Date Time Temp Pulse Resp B/P (MAP) Pulse Ox O2 Delivery O2 Flow Rate FiO2 12/12/18 13:06 108 23 35 12/12/18 12:00 111 12/12/18 12:00 35 12/12/18 12:00 Mechanical Ventilator 12/12/18 12:00 98.8 103 18 115/75 (88) 100 12/12/18 10:42 111 25 35 12/12/18 09:05 116 26 35 12/12/18 08:19 189 115/75 12/12/18 08:18 186 12/12/18 08:00 35 12/12/18 08:00 98.8 103 20 115/75 (88) 99 12/12/18 08:00 95 12/12/18 08:00 Mechanical Ventilator 12/12/18 07:46 101 27 35 12/12/18 05:30 89 26 35 12/12/18 04:02 84 12/12/18 04:00 35 12/12/18 04:00 98.5 100 24 109/70 (83) 97 12/12/18 04:00 Mechanical Ventilator 12/12/18 03:30 90 25 35 12/12/18 01:30 91 28 35 12/12/18 00:00 Mechanical Ventilator 12/12/18 00:00 98.4 96 27 113/70 (84) 100 12/11/18 23:30 90 27 35 12/11/18 23:05 87 12/11/18 21:30 90 30 35 12/11/18 20:00 89 12/11/18 20:00 Mechanical Ventilator 12/11/18 20:00 35 12/11/18 20:00 98.6 90 30 110/62 (78) 100 12/11/18 19:27 94 32 35 12/11/18 18:24 104 105/67 12/11/18 16:44 104 29 35 I&O Intake and Output 12/11/18 12/12/18 19:00 07:00 Intake Total 405.0 ml 710 ml Output Total 1200 ml 1050 ml Balance -795.0 ml -340 ml IV Total 405.0 ml 710 ml Output Urine Total 1000 ml 700 ml Stool Total 200 ml 350 ml Dressing: saturated Wound: other Drains: other Cardiovascular: RSR Respiratory: decreased breath sounds Abdomen: soft, non-distended, decreased bowel sounds Extremities: other Laboratory Tests Test 12/12/18 03:00 White Blood Count 16.0 K/UL (4.8-10.8) H Red Blood Count 2.44 M/UL (4.70-6.10) L Hemoglobin 7.6 G/DL (14.2-18.0) L Hematocrit 24.2 % (42.0-52.0) L Mean Corpuscular Volume 99 FL (80-99) Mean Corpuscular Hemoglobin 31.2 PG (27.0-31.0) H Mean Corpuscular Hemoglobin Concent 31.5 G/DL (32.0-36.0) L Red Cell Distribution Width 16.0 % (11.6-14.8) H Platelet Count 154 K/UL (150-450) Mean Platelet Volume 9.6 FL (6.5-10.1) Neutrophils (%) (Auto) % (45.0-75.0) Lymphocytes (%) (Auto) % (20.0-45.0) Monocytes (%) (Auto) % (1.0-10.0) Eosinophils (%) (Auto) % (0.0-3.0) Basophils (%) (Auto) % (0.0-2.0) Differential Total Cells Counted 100 Neutrophils % (Manual) 86 % (45-75) H Lymphocytes % (Manual) 8 % (20-45) L Monocytes % (Manual) 1 % (1-10) Eosinophils % (Manual) 1 % (0-3) Basophils % (Manual) 0 % (0-2) Band Neutrophils 4 % (0-8) Platelet Estimate Adequate Platelet Morphology Normal Anisocytosis 1+ Rouleau Occasional Sodium Level 149 MMOL/L (136-145) H Potassium Level 3.8 MMOL/L (3.5-5.1) Chloride Level 118 MMOL/L (98-107) H Carbon Dioxide Level 16 MMOL/L (21-32) L Anion Gap 15 mmol/L (5-15) Blood Urea Nitrogen 26 mg/dL (7-18) H Creatinine 1.0 MG/DL (0.55-1.30) Estimat Glomerular Filtration Rate mL/min (>60) Glucose Level 248 MG/DL (74-106) H Uric Acid 5.8 MG/DL (2.6-7.2) Calcium Level 7.7 MG/DL (8.5-10.1) L Phosphorus Level 3.5 MG/DL (2.5-4.9) Magnesium Level 2.5 MG/DL (1.8-2.4) H Total Bilirubin 0.4 MG/DL (0.2-1.0) Direct Bilirubin 0.1 MG/DL (0.0-0.3) Aspartate Amino Transf (AST/SGOT) 34 U/L (15-37) Alanine Aminotransferase (ALT/SGPT) 49 U/L (12-78) Alkaline Phosphatase 70 U/L (46-116) Total Protein 6.3 G/DL (6.4-8.2) L Albumin 1.3 G/DL (3.4-5.0) L Digoxin Level 0.7 NG/ML (0.5-2.0) Plan Problems: (1) Decubitus skin ulcer Assessment & Plan: Pt presented on admission with multiple pressure injuries and Skin erosion. Pt has trach and no evidence of skin breakdown noted under trach collar. Unstageable pressure injury noted to L earlobe. Stable dry brown eschar noted(L) 0.7cm x (W)0.5cm. Gross erythema with denudement and multiple scattered partial thickness wounds noted to buttocks and base of scrotum extending into both posterior upper thighs.Moderate amt sanguineous exudate noted upon removal of drsgs. 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 Moderate amt sanguineous exudate noted (L)3cm x (W)1cm x (D)7.4cm.Erythema periwound secondary to skin erosions. Partially opened DTPI L ischium .Base of wound purple,fluctuant with red borders.Open areas at base of this wound are beefy red in colour.Moderate amt sanguineous exudate noted.(L)7cm x (W)6.8cm. DTPI R ischium.Wound is fluctuant-purple in center with surrounding Maroon colour, and is partially opened with a small area of 5% that is necrotic.(L) 6.5cm x (W)5.5cm. Red skin erosion periwound. Partial thickness pressure injury L hip. Base of wound is moist -viable. Edges adherent and dry. Periwound without erythema or induration(L)1.2cm x (W)0.5cm. Elongate partial thickness wound posterior upper L thigh .Base of wound is moist -viable .Small amt sanguineous exudate noted. (+) maceration along borders. Erythema without induration or elevation in skin temp noted.(L)2cm x (W )9.4cm. DTPI noted to R heel .Base of injury is indurated and maroon in colour. Periwound is firm without erythema. (L)1.5cm x (W)1cm.R heel without evidence of skin breakdown. Tx.Plan: Cleanse Sacrum with Saline. Loosely pack with Hydrogel impregnated Kerlix. Apply Triad Paste periwound. Cover with ABD pad. Daily and prn. Cleanse R and L ischial wounds with Saline. Apply Moisture Barrier Paste.Cover with abd pads Daily and prn. Apply Moisture Barrier to skin erosions on buttocks,scrotum, and posterior aspects of both thighs.Cover with ABD pad daily and prn. Cleanse wound L hip with Saline. Apply Moisture Barrier paste .Cover with Optifoam drsg Daily and prn. Cleanse wound posterior upper L thigh with saline .Apply Hydrogel. Cover with Optifoam drsg Daily and prn. Apply Cavilon Skin Barrier to L earlobe daily. Please monitor. Apply Cavilon Skin Barrier to L heel. Cover with Optifoam drsg. Change every 7 days and prn. Apply Cavilon Skin Barrier to R heel. Cover with Optifoam drsg .Change every 7 days and prn. Air fluidized mattress. Reposition every 2hours or as tolerated. Off-load heels with pillow. (2) Acute and chronic respiratory failure Assessment & Plan: cont with breathing treatments trach stable trach site clean will change dressings daily Javier Ricardo Dec 12, 2018 16:24
--- NOTE | 2018-12-12 17:46 | General Progress Note ---
Assessment/Plan Assessment/Plan Assessment/Recs: # Leukocytosis/Elevated white blood cell count, unspecified likely related to underlying stress reaction, smoking, or underlying infection (especially if bandemia is noted) --> have reviewed peripheral smear and bandemia/neutrophilia noted --> continue antibiotics if they have been started by ID team --> monitor for resolution ---> WBC trend: 11-->16 # Anemia of chronic disease (or of iron deficiency) due to underlying chronic medical issues, multifactorial --> Anemia workup has been ordered --> No evidence of hemolysis is noted, peripheral smear has been reviewed. --> Hgb goal >7. Transfuse prn. --> Epogen or iron at this time is not particularly indicated --> Medications have been reviewed # Thrombocytopenia - potential causes multifactorial, evaluate liver and viral etiologies to begin, also could be related to underlying medications patient has received. --> Hep panel and HIV negative --> US abd to evaluate for cirrhosis and hsm reviewed --> Peripheral smear ordered to evaluate for blasts /schistocytes --> abx and other meds have been reviewed --> ok for ppx if plt >50k w/ either heparin or lovenox --> Transfuse if Plt < 20k and fever, or if Plt < 10k without fever # Severe prerenal azotemia, on jeanette saline at 150 mL/hr. #Hypouricemia, appreciate Pulmonary training consultant # Severe Sepsis, CXR: Probable small left pleural effusion, also evident on prior study 11/22/2017. -->appreciate ID recs # [email or web address], likely from UTI The timing of this note does not necessarily reflect the time of the patient was seen. Greatly appreciate consultation! Subjective Constitutional: Denies: no symptoms, chills, diaphoresis, fever, malaise, weakness, other HEENT: Denies: no symptoms, eye pain, blurred vision, tearing, double vision, ear pain, ear discharge, nose pain, nose congestion, throat pain, throat swelling, mouth pain, mouth swelling, other Cardiovascular: Denies: no symptoms, chest pain, edema, irregular heart rate, lightheadedness, palpitations, syncope, other Respiratory: Denies: no symptoms, cough, orthopnea, shortness of breath, SOB with excertion, SOB at rest, sputum, stridor, wheezing, other Neurologic/Psychiatric: Denies: no symptoms, anxiety, depressed, emotional problems, headache, numbness, paresthesia, pre-existing deficit, seizure, tingling, tremors, weakness, other Endocrine: Denies: no symptoms, excessive sweating, flushing, intolerance to cold, intolerance to heat, increased hunger, increased thirst, increased urine, unexplained weight gain, unexplained weight loss, other Hematologic/Lymphatic: Denies: no symptoms, anemia, easy bleeding, easy bruising, other Allergies: Coded Allergies: PENICILLINS (Unverified Allergy, Unknown, 02/26/16) POLYMYXIN B (Unverified Allergy, Unknown, 02/26/16) VANCOMYCIN (Unverified Allergy, Unknown, 02/26/16) Subjective 12/11: seen by bedside, vent dependent, leukocytosis, 11, hgb 7, will transfuse, no events 12/12: awake, comfortable wbc trending up at 16, no events Objective Last 24 Hour Vital Signs Date Time Temp Pulse Resp B/P (MAP) Pulse Ox O2 Delivery O2 Flow Rate FiO2 12/12/18 17:22 99 24 Mechanical Ventilator 15.0 28 12/12/18 17:00 105 27 35 12/12/18 15:00 114 24 35 12/12/18 13:06 108 23 35 12/12/18 12:00 111 12/12/18 12:00 35 12/12/18 12:00 Mechanical Ventilator 12/12/18 12:00 98.8 103 18 115/75 (88) 100 12/12/18 10:42 111 25 35 12/12/18 09:05 116 26 35 12/12/18 08:19 189 115/75 12/12/18 08:18 186 12/12/18 08:00 35 12/12/18 08:00 98.8 103 20 115/75 (88) 99 12/12/18 08:00 95 12/12/18 08:00 Mechanical Ventilator 12/12/18 07:46 101 27 35 12/12/18 05:30 89 26 35 12/12/18 04:02 84 12/12/18 04:00 35 12/12/18 04:00 98.5 100 24 109/70 (83) 97 12/12/18 04:00 Mechanical Ventilator 12/12/18 03:30 90 25 35 12/12/18 01:30 91 28 35 12/12/18 00:00 Mechanical Ventilator 12/12/18 00:00 98.4 96 27 113/70 (84) 100 12/11/18 23:30 90 27 35 12/11/18 23:05 87 12/11/18 21:30 90 30 35 12/11/18 20:00 89 12/11/18 20:00 Mechanical Ventilator 12/11/18 20:00 35 12/11/18 20:00 98.6 90 30 110/62 (78) 100 12/11/18 19:27 94 32 35 12/11/18 18:24 104 105/67 Intake and Output 12/11/18 12/12/18 19:00 07:00 Intake Total 405.0 ml 710 ml Output Total 1200 ml 1050 ml Balance -795.0 ml -340 ml IV Total 405.0 ml 710 ml Output Urine Total 1000 ml 700 ml Stool Total 200 ml 350 ml Laboratory Tests 12/12/18 03:00: White Blood Count 16.0H, Red Blood Count 2.44L, Hemoglobin 7.6L, Hematocrit 24.2L, Mean Corpuscular Volume 99, Mean Corpuscular Hemoglobin 31.2H, Mean Corpuscular Hemoglobin Concent 31.5L, Red Cell Distribution Width 16.0H, Platelet Count 154, Mean Platelet Volume 9.6, Neutrophils (%) (Auto) , Lymphocytes (%) (Auto) , Monocytes (%) (Auto) , Eosinophils (%) (Auto) , Basophils (%) (Auto) , Differential Total Cells Counted 100, Neutrophils % ( Manual) 86H, Lymphocytes % (Manual) 8L, Monocytes % (Manual) 1, Eosinophils % ( Manual) 1, Basophils % (Manual) 0, Band Neutrophils 4, Platelet Estimate Adequate, Platelet Morphology Normal, Anisocytosis 1+, Rouleau Occasional, Sodium Level 149H, Potassium Level 3.8, Chloride Level 118H, Carbon Dioxide Level 16L, Anion Gap 15, Blood Urea Nitrogen 26H, Creatinine 1.0, Estimat Glomerular Filtration Rate , Glucose Level 248H, Uric Acid 5.8, Calcium Level 7.7L, Phosphorus Level 3.5, Magnesium Level 2.5H, Total Bilirubin 0.4, Direct Bilirubin 0.1, Aspartate Amino Transf (AST/SGOT) 34, Alanine Aminotransferase ( ALT/SGPT) 49, Alkaline Phosphatase 70, Total Protein 6.3L, Albumin 1.3L, Digoxin Level 0.7 Height (Feet): 5 Height (Inches): 8.00 Weight (Pounds): 135 Objective Physical Exam HEENT: Eyes were normal. ENT, mucous membranes were not dehydrated. NECK: Supple. There was no goiter. No mass. No lymphadenopathy. There was no JVD. No bruits. Carotid upstroke was 2+. LUNGS: Clear. Vent++ HEART: PMI was in the fifth left intercostal space in midclavicular line. There was normal S1 and normal S2. There was no murmur. No arrhythmia. No S3. No S4. No pericardial rub. ABDOMEN: Soft and nontender without organomegaly. There were no masses palpable. Normal bowel sounds without bruits. There was no guarding. No rebound tenderness. No ascites. No hernia. No CVA tenderness. Liver span was 8 cm, mostly nontender. EXTREMITIES: No cyanosis, no clubbing, and no edema. Extremities were warm. Adarsh Kim MD Dec 12, 2018 17:46
--- NOTE | 2018-12-12 19:16 | NUR ---
NURSE NOTES: Received report from Ely Leone RN. Patient is asleep in bed. Sinus rhythm on cardiac cath lab radiology technologist. No s/s of acute distress noted. Saturating well on trach-vent settings: Portex 7, AC 18, vT 500, FiO2 25%, PEEP 5. Colostomy and intact. Suprapubic urinary catheter intact and draining well. Bed locked in lowest position with side rails up x3. Call light left within reach. Will continue to monitor.
--- NOTE | 2018-12-12 19:16 | NUR ---
HAND-OFF: Report given to Chapis Ivy RN.
--- NOTE | 2018-12-12 19:18 | Cardiology Progress Note ---
Assessment/Plan Assessment/Plan 1. Supraventricular tachycardia. recurrent 12/09 and 12/10 2. Renal insufficiency. 3. Hyponatremia. 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 6. History of bowel resection. 7. History of CVA. 8. Chronic tracheostomy. 9. Diabetes mellitus. bp borderline i was called by rn 12/11 agin this am had recurrent svt iadn cardizem orderd ISS started of his bs cortisol was normal already on bb and seem to be breaking through wiht svt will dc bb plac beverley low dose Cardizem via gtube and dig (will decrease bb gradully ) dig level 0.7 await picc line but cannot be done until wednesday Subjective ROS Limited/Unobtainable: Yes Subjective on the vent Objective Last 24 Hour Vital Signs Date Time Temp Pulse Resp B/P (MAP) Pulse Ox O2 Delivery O2 Flow Rate FiO2 12/12/18 19:10 98 25 35 12/12/18 18:13 99 115/75 12/12/18 17:22 99 24 Mechanical Ventilator 15.0 28 12/12/18 17:00 105 27 35 12/12/18 16:00 98.2 104 22 104/60 (75) 97 12/12/18 16:00 35 12/12/18 16:00 104 12/12/18 16:00 Mechanical Ventilator 12/12/18 15:00 114 24 35 12/12/18 13:06 108 23 35 12/12/18 12:00 111 12/12/18 12:00 35 12/12/18 12:00 Mechanical Ventilator 12/12/18 12:00 98.8 103 18 115/75 (88) 100 12/12/18 10:42 111 25 35 12/12/18 09:05 116 26 35 12/12/18 08:19 189 115/75 12/12/18 08:18 186 12/12/18 08:00 35 12/12/18 08:00 98.8 103 20 115/75 (88) 99 12/12/18 08:00 95 12/12/18 08:00 Mechanical Ventilator 12/12/18 07:46 101 27 35 12/12/18 05:30 89 26 35 12/12/18 04:02 84 12/12/18 04:00 35 12/12/18 04:00 98.5 100 24 109/70 (83) 97 12/12/18 04:00 Mechanical Ventilator 12/12/18 03:30 90 25 35 12/12/18 01:30 91 28 35 12/12/18 00:00 Mechanical Ventilator 12/12/18 00:00 98.4 96 27 113/70 (84) 100 12/11/18 23:30 90 27 35 12/11/18 23:05 87 12/11/18 21:30 90 30 35 12/11/18 20:00 89 12/11/18 20:00 Mechanical Ventilator 12/11/18 20:00 35 12/11/18 20:00 98.6 90 30 110/62 (78) 100 12/11/18 19:27 94 32 35 General Appearance: no apparent distress, on vent, patient on isolation Neck: supple Cardiovascular: normal rate Respiratory/Chest: rhonchi - bilaterally Abdomen: normal bowel sounds, non tender, soft Extremities: no swelling Intake and Output 12/11/18 12/12/18 19:00 07:00 Intake Total 405.0 ml 710 ml Output Total 1200 ml 1050 ml Balance -795.0 ml -340 ml IV Total 405.0 ml 710 ml Output Urine Total 1000 ml 700 ml Stool Total 200 ml 350 ml Laboratory Tests Test 12/12/18 03:00 White Blood Count 16.0 K/UL (4.8-10.8) H Red Blood Count 2.44 M/UL (4.70-6.10) L Hemoglobin 7.6 G/DL (14.2-18.0) L Hematocrit 24.2 % (42.0-52.0) L Mean Corpuscular Volume 99 FL (80-99) Mean Corpuscular Hemoglobin 31.2 PG (27.0-31.0) H Mean Corpuscular Hemoglobin Concent 31.5 G/DL (32.0-36.0) L Red Cell Distribution Width 16.0 % (11.6-14.8) H Platelet Count 154 K/UL (150-450) Mean Platelet Volume 9.6 FL (6.5-10.1) Neutrophils (%) (Auto) % (45.0-75.0) Lymphocytes (%) (Auto) % (20.0-45.0) Monocytes (%) (Auto) % (1.0-10.0) Eosinophils (%) (Auto) % (0.0-3.0) Basophils (%) (Auto) % (0.0-2.0) Differential Total Cells Counted 100 Neutrophils % (Manual) 86 % (45-75) H Lymphocytes % (Manual) 8 % (20-45) L Monocytes % (Manual) 1 % (1-10) Eosinophils % (Manual) 1 % (0-3) Basophils % (Manual) 0 % (0-2) Band Neutrophils 4 % (0-8) Platelet Estimate Adequate Platelet Morphology Normal Anisocytosis 1+ Rouleau Occasional Sodium Level 149 MMOL/L (136-145) H Potassium Level 3.8 MMOL/L (3.5-5.1) Chloride Level 118 MMOL/L (98-107) H Carbon Dioxide Level 16 MMOL/L (21-32) L Anion Gap 15 mmol/L (5-15) Blood Urea Nitrogen 26 mg/dL (7-18) H Creatinine 1.0 MG/DL (0.55-1.30) Estimat Glomerular Filtration Rate mL/min (>60) Glucose Level 248 MG/DL (74-106) H Uric Acid 5.8 MG/DL (2.6-7.2) Calcium Level 7.7 MG/DL (8.5-10.1) L Phosphorus Level 3.5 MG/DL (2.5-4.9) Magnesium Level 2.5 MG/DL (1.8-2.4) H Total Bilirubin 0.4 MG/DL (0.2-1.0) Direct Bilirubin 0.1 MG/DL (0.0-0.3) Aspartate Amino Transf (AST/SGOT) 34 U/L (15-37) Alanine Aminotransferase (ALT/SGPT) 49 U/L (12-78) Alkaline Phosphatase 70 U/L (46-116) Total Protein 6.3 G/DL (6.4-8.2) L Albumin 1.3 G/DL (3.4-5.0) L Digoxin Level 0.7 NG/ML (0.5-2.0) Donny Kelley MD Dec 12, 2018 19:17
[2018-12-12 20:00] VITALS: BP 120/72
[2018-12-12] MEDS: Atenolol 25mg tab ORAL SCH (20:47)
[2018-12-12] MEDS: Dyna-Hex 2% Top Sol 2oz TOPIC SCH (20:47)
[2018-12-13] VITALS: BP 112/70
[2018-12-13] MEDS: NovoLOG Insulin Flexpen SUBQ SCH ×6 (00:57→21:03)
--- NOTE | 2018-12-13 01:00 | Progress Note ---
DATE: 12/11/2018 NOTE: UNCLEAR AUDIO SUBJECTIVE: The patient is awake, alert, afebrile, less lethargic than yesterday, but still not in his usual self. PHYSICAL EXAMINATION: VITAL SIGNS: Blood pressure is 110/62, his pulse is 90, respirations are 27, and temperature is 99.7. HEENT: Eyes were normal. ENT, mucous membranes were moist and intact. NECK: Supple with no JVD and without lymph nodes. Tracheostomy site is clean. LUNGS: Clear without rhonchi, rales, or wheezing. Secretions are small, thin, and barros. HEART: Normal sounds with regular beats. There is tachycardia at rest. ABDOMEN: Soft and nontender with normal bowel sounds. Gastrostomy site is clean. EXTREMITIES: Warm without cyanosis, clubbing, or edema. LABORATORY AND DIAGNOSTIC DATA: His hemoglobin is 7.0, hematocrit is 20.8 with MCV of 97, WBC of 11.3, and platelets is 116. 246 on December 07, 2018. His BUN and creatinine is 39 and 1.0 respectively. His sodium is 151, potassium 3.2, chloride 119, CO2 is 19, and glucose is 325. His lactic acid is 0.3. His phosphorus is 1.9 and magnesium is 1.6. His albumin is 1.3 and his total protein is 5.9. IMPRESSION: His chest x-ray revealed worsening of bilateral infiltrate in addition to thickening secondary to edema, pneumonia, and slightly small left pleural effusion. PLAN: The patient by the safety manager, smoke room operator has been called to follow the platelets and RBCs. The patient is on digoxin 0.25 mg daily and diltiazem mg b.i.d. He is on daptomycin poorly controlled because of . Repeat laboratory tests will be done in the a.m. Neema Hutchins M.D. DR: YOVANI JOB#: [id number] CC:
[2018-12-13 04:00] VITALS: BP 152/77
[2018-12-13 04:50] LABS: HEMATOCRIT 19.5 % (42.0-52.0); MEAN CORPUSCULAR VOLUME 99 FL (80-99); PLATELET COUNT 143 K/UL (150-450); RED BLOOD COUNT 1.97 M/UL (4.70-6.10); RED CELL DISTRIBUTION WIDTH 15.4 % (11.6-14.8); WHITE BLOOD COUNT 15.8 K/UL (4.8-10.8)
[2018-12-13 04:57] LABS: HEMOGLOBIN 6.2 G/DL (14.2-18.0)
[2018-12-13 05:17] LABS: ALANINE AMINOTRANSFERASE 34 U/L (12-78); ALBUMIN 1.1 G/DL (3.4-5.0); ALBUMIN/GLOBULIN RATIO 0.2 (1.0-2.7); ALKALINE PHOSPHATASE 64 U/L (46-116); ANION GAP 15 mmol/L (5-15); ASPARTATE AMINO TRANSFERASE 26 U/L (15-37); BILIRUBIN,TOTAL 0.3 MG/DL (0.2-1.0); BLOOD UREA NITROGEN 20 mg/dL (7-18); CALCIUM 7.1 MG/DL (8.5-10.1); CARBON DIOXIDE 17 MMOL/L (21-32); CHLORIDE 112 MMOL/L (98-107); CREATININE 0.9 MG/DL (0.55-1.30); POTASSIUM 2.9 MMOL/L (3.5-5.1); SODIUM 144 MMOL/L (136-145)
[2018-12-13 05:23] LABS: CREATINE KINASE 70 U/L (26-308)
[2018-12-13] MEDS: Aztreonam Inj 1 GM in D5W 55 ML IVPB SCH ×3 (05:31→21:54)
[2018-12-13 05:43] LABS: HEMATOCRIT 20.2 % (42.0-52.0); MEAN CORPUSCULAR VOLUME 99 FL (80-99); PLATELET COUNT 155 K/UL (150-450); RED BLOOD COUNT 2.04 M/UL (4.70-6.10); RED CELL DISTRIBUTION WIDTH 15.4 % (11.6-14.8); WHITE BLOOD COUNT 15.9 K/UL (4.8-10.8)
[2018-12-13 05:50] LABS: HEMOGLOBIN 6.4 G/DL (14.2-18.0)
--- NOTE | 2018-12-13 06:00 | NUR ---
NURSE NOTES: Dr. Judy MD made aware of patient's hgb 6.4. New order received and carried out.
--- NOTE | 2018-12-13 07:05 | NUR ---
HAND-OFF: Report given to Ely Leone RN.
--- NOTE | 2018-12-13 07:06 | NUR ---
NURSE NOTES: RECEIVED PATIENT FROM Chapis POWELL RN. PATIENT IS LYING IN BED, ASLEEP, NONVERBAL. GT IN PLACE, DRY AND INTACT. GTF RUNNING GLUCERNA 1.2 AT 45CC/HR. NOTED COLOSTOMY AND SUPRAPUBIC CATH CONNECTED TO BAG, PATENT AND DRAINING URINE. SKIN ALTERATION NOTED.PICC LINE ON L UA WITH IVF RUNNING D5 W AT 75CC/HR. CALL LIGHT WITHIN REACH. BED AT LOWEST POSITION. SIDE RAILS UP. WILL CONTINUE TO MONITOR.
[2018-12-13 08:00] VITALS: BP 105/58
[2018-12-13] MEDS: dilTIAZem HCl 30mg tab GT SCH ×2 (08:46→17:05)
[2018-12-13] MEDS: Atenolol 25mg tab ORAL SCH ×2 (08:47→21:03)
[2018-12-13] MEDS: Phospha 250 Neutral tab GT SCH ×3 (08:47→17:05)
[2018-12-13] MEDS: Pantoprazole Inj IVP SCH ×2 (08:47→21:03)
[2018-12-13] MEDS: Heparin 5000 units/ml inj SUBQ SCH ×2 (08:55→21:00)
--- NOTE | 2018-12-13 09:29 | Pulmonolgy Critical Care Note ---
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 Respiratory: monitor respiratory rate, adjust FIO2, CXR Cardiac: continue to monitor HR/BP Renal: F/U I&O, keep IV fluid Infectious Disease: check cultures, continue antibiotics Endocrine: monitor blood sugar Hematologic: monitor H/H, transfuse if hgb<8.5 Neurologic: PRN Ativan, keep patient comfortable Affect: PRN ativan Prophylaxis: Protonix, Heparin Time Spent (Minutes): 40 Notes Reviewed: ID Discussed with: nurses, consultants, piano case and bench assemblerinstructional manager - Objective Last 24 Hour Vital Signs Date Time Temp Pulse Resp B/P (MAP) Pulse Ox O2 Delivery O2 Flow Rate FiO2 12/13/18 08:47 94 105/58 12/13/18 08:46 94 105/58 12/13/18 08:46 94 12/13/18 08:00 Mechanical Ventilator 12/13/18 08:00 99.3 94 28 105/58 (74) 99 12/13/18 08:00 35 12/13/18 05:14 83 25 35 12/13/18 04:00 35 12/13/18 04:00 Mechanical Ventilator 12/13/18 04:00 97.2 78 20 152/77 (102) 99 12/13/18 03:23 80 12/13/18 02:32 85 26 35 12/13/18 01:06 83 27 35 12/13/18 00:00 98.9 90 28 112/70 (84) 100 12/13/18 00:00 Mechanical Ventilator 12/12/18 23:43 89 12/12/18 22:40 88 28 35 12/12/18 20:47 103 120/72 12/12/18 20:36 103 27 35 12/12/18 20:00 35 12/12/18 20:00 98.6 98 24 120/72 (88) 99 12/12/18 20:00 Mechanical Ventilator 3/11/19 19:27 100 12/12/18 19:10 98 25 35 12/12/18 18:13 99 115/75 12/12/18 17:22 99 24 Mechanical Ventilator 15.0 28 12/12/18 17:00 105 27 35 12/12/18 16:00 98.2 104 22 104/60 (75) 97 12/12/18 16:00 35 12/12/18 16:00 104 12/12/18 16:00 Mechanical Ventilator 12/12/18 15:00 114 24 35 12/12/18 13:06 108 23 35 12/12/18 12:00 111 12/12/18 12:00 35 12/12/18 12:00 Mechanical Ventilator 12/12/18 12:00 98.8 103 18 115/75 (88) 100 12/12/18 10:42 111 25 35 Status: awake Condition: critical, improving HEENT: atraumatic Neck: full ROM Lungs: rales, rhonchi Heart: HR/BP stable Abdomen: soft, non-tender Extremities: edema Decubiti: stage Accucheck: 312 Critical Care - Subjective ROS Limited/Unobtainable: Yes Condition: critical EKG Rhythm: Sinus Rhythm FI02: 35 Vent Support Breath Rate: 18 Vent Support Mode: AC Vent Tidal Volume: 500 Sputum Amount: Small PEEP: 5.0 PIP: 27 Tube Feeding Amount: 45 I&O: Intake and Output 12/12/18 12/13/18 18:59 06:59 Intake Total 722.75 ml 1020 ml Output Total 900 ml 1300 ml Balance -177.25 ml -280 ml Intake Free Water 90 ml IV Total 722.75 ml 660 ml Tube Feeding 270 ml Output Urine Total 500 ml 800 ml Stool Total 400 ml 500 ml CXR: extensive infiltrate Labs: Laboratory Tests Test 12/13/18 04:00 12/13/18 05:30 White Blood Count 15.8 K/UL (4.8-10.8) H 15.9 K/UL (4.8-10.8) H Red Blood Count 1.97 M/UL (4.70-6.10) L 2.04 M/UL (4.70-6.10) L Hemoglobin 6.2 G/DL (14.2-18.0) *L 6.4 G/DL (14.2-18.0) *L Hematocrit 19.5 % (42.0-52.0) L 20.2 % (42.0-52.0) L Mean Corpuscular Volume 99 FL (80-99) 99 FL (80-99) Mean Corpuscular Hemoglobin 31.3 PG (27.0-31.0) H 31.4 PG (27.0-31.0) H Mean Corpuscular Hemoglobin Concent 31.6 G/DL (32.0-36.0) L 31.7 G/DL (32.0-36.0) L Red Cell Distribution Width 15.4 % (11.6-14.8) H 15.4 % (11.6-14.8) H Platelet Count 143 K/UL (150-450) L 155 K/UL (150-450) Mean Platelet Volume 10.0 FL (6.5-10.1) 10.0 FL (6.5-10.1) Neutrophils (%) (Auto) % (45.0-75.0) % (45.0-75.0) Lymphocytes (%) (Auto) % (20.0-45.0) % (20.0-45.0) Monocytes (%) (Auto) % (1.0-10.0) % (1.0-10.0) Eosinophils (%) (Auto) % (0.0-3.0) % (0.0-3.0) Basophils (%) (Auto) % (0.0-2.0) % (0.0-2.0) Differential Total Cells Counted 100 100 Neutrophils % (Manual) 93 % (45-75) H 90 % (45-75) H Lymphocytes % (Manual) 4 % (20-45) L 4 % (20-45) L Monocytes % (Manual) 2 % (1-10) 4 % (1-10) Eosinophils % (Manual) 1 % (0-3) 1 % (0-3) Basophils % (Manual) 0 % (0-2) 1 % (0-2) Band Neutrophils 0 % (0-8) 0 % (0-8) Platelet Estimate Decreased L Adequate Platelet Morphology Normal Normal Hypochromasia 4+ 4+ Anisocytosis 1+ 1+ Rouleau 2+ 2+ Sodium Level 144 MMOL/L (136-145) Potassium Level 2.9 MMOL/L (3.5-5.1) L Chloride Level 112 MMOL/L (98-107) H Carbon Dioxide Level 17 MMOL/L (21-32) L Anion Gap 15 mmol/L (5-15) Blood Urea Nitrogen 20 mg/dL (7-18) H Creatinine 0.9 MG/DL (0.55-1.30) Estimat Glomerular Filtration Rate mL/min (>60) Glucose Level 385 MG/DL (74-106) #H Calcium Level 7.1 MG/DL (8.5-10.1) L Total Bilirubin 0.3 MG/DL (0.2-1.0) Aspartate Amino Transf (AST/SGOT) 26 U/L (15-37) Alanine Aminotransferase (ALT/SGPT) 34 U/L (12-78) Alkaline Phosphatase 64 U/L (46-116) Total Creatine Kinase 70 U/L (26-308) Pro-B-Type Natriuretic Peptide 3312 pg/mL (0-125) H Total Protein 5.8 G/DL (6.4-8.2) L Albumin 1.1 G/DL (3.4-5.0) L Globulin 4.7 g/dL Albumin/Globulin Ratio 0.2 (1.0-2.7) L Abhishek Guerra MD Dec 13, 2018 09:29
--- NOTE | 2018-12-13 09:38 | NUR ---
RADIOLOGY DEPT CHEST X-RAY DONE.-P.DYE
--- NOTE | 2018-12-13 10:00 | NUR ---
NURSE NOTES: SPOKE WITH DR BOWEN RE TEMP OF PATIENT. HELD BLOOD TRANSFUSION FOR NOW. WILL CONTINUE TO MONITOR.
--- NOTE | 2018-12-13 10:13 | Diagnostic Imaging Report ---
Indication: Dyspnea Technique: One view of the chest Comparison: 12/12/2018 Findings: Left pleural effusion, bilateral right greater than left mixed chronic and acute interstitial and airspace opacities persist, unchanged. Tracheostomy is again demonstrated. Left arm PICC is present. The heart is upper limits normal in size. Findings are unchanged Impression: Unchanged, over one day, findings as above.
--- NOTE | 2018-12-13 10:26 | Diagnostic Imaging Report ---
Clinical Indication: Pain, gram-negative bacteremia Technique: Patient given enteric contrast. IV administration nonionic contrast. Venous phase spiral acquisition obtained through the abdomen and pelvis. Multiplanar reconstructions were generated. Total dose length product 1040.34 mGycm. CTDIvol(s) 19.07 mGy. Dose reduction achieved using automated exposure control Comparison: 03/01/2016 contrast study and 03/30/2016 noncontrast exam Findings: The pancreas is enlarged and there is infiltration of the peripancreatic fat. A small amount of phlegmon and fluid is also seen extending along the left anterior Gerota's fascia. No discrete fluid collection demonstrated. The pancreas enhances normally. No definite pancreatic mass demonstrated. The gallbladder is nondistended, contains numerous gallstones. There is no biliary ductal dilatation. The liver is unremarkable. The spleen, adrenals are unremarkable. There are at least 2 small accessory splenules. No pelvic mass or adenopathy. No retroperitoneal or mesenteric mass or adenopathy demonstrated. The kidneys demonstrate a cyst in the left interpolar region, also demonstrated previously. Multiple subcentimeter low-attenuation lesions are seen in the right kidney which are too small to characterize. A 7 mm calculus is seen in the right renal pelvis, and a 4 mm calculus in the right lower pole calyx, neither of which were evident previously. There is no hydronephrosis or hydroureter. No definite ureteral calculi. However, there is a 4 mm calculus which appears to be within the bladder lumen that near the left ureteral orifice. Previously demonstrated Bledsoe catheter is no longer present, and has been replaced by a suprapubic catheter. The bladder is decompressed. Again demonstrated is evidence of prior colectomy and Haroldo procedure. There is some wall thickening of the Haroldo pouch, but this appears similar to the previous exam. There is a right lower quadrant ileostomy again demonstrated. Contrast is seen throughout the entirety of the small bowel and into the ileostomy bag. No small bowel distention or small bowel wall thickening. The bowel distention demonstrated only 03/30/2016 exam is not evident currently. No loculated intraperitoneal fluid. No other intraperitoneal fluid other than the minimal findings related to the pancreatitis No free intraperitoneal gas is demonstrated. A gastrostomy tube is present within the stomach in good position. The distal esophagus is unremarkable. There is mild edema of the subcutaneous fat of the bilateral flanks. There is suggestion of some decubitus changes adjacent to the right ischium. There is questionable soft tissue ulceration, although this just may represent skin folds. Chronic erosive changes of the bilateral ischia appear similar to the previous exam. Included lung bases demonstrate complete consolidation of the left lower lobe. Note that a similar finding was present on the previous study. There is considerable honeycombing and confluent opacity involving the anterior right middle lobe, which has progressed since the prior exam. Interstitial and airspace opacities are seen throughout the remaining nonatelectatic lungs. There is a calcification in the right lower lobe. There is trace pleural fluid bilaterally. Impression: Findings consistent with uncomplicated nonnecrotizing acute pancreatitis. No evidence of associated peripancreatic abscess Surgical changes as described, including right lower quadrant ileostomy, subtotal colectomy with Haroldo procedure. Wall thickening of the Haroldo pouch. This could indicate inflammation. However, this is also present on both of the prior 2 exams and may be baseline for this patient Evidence of mild anasarca, with edema of the subcutaneous fat. This is a new finding Chronic appearing decubitus changes of the bilateral ischia. Correlate with clinical findings Complete left lower lobe consolidation. This is similar to both of the prior CTs, and is likely a chronic finding. There is progressive chronic interstitial fibrotic change involving the right middle lobe. There is also right lower lobe granulomatous calcification Extensive pulmonary parenchymal opacities bilaterally may reflect acute inflammation/infection, edema, progressive chronic scarring, or combination of the above. These are considerably more extensive than on the prior study Trace bilateral pleural fluid New finding of nonobstructive right renal collecting system calculi 4 mm calculus within the bladder lumen. This may represent a bladder calculus, a calculus and left ureteral orifice, or recently passed stone. If either of the latter, no evidence of resultant hydronephrosis or hydroureter Suprapubic catheter. This is a new finding since the 2016 exams. Interim removal of previously demonstrated Bledsoe catheter Gastrostomy Left renal cysts. Subcentimeter low-attenuation right renal lesions, too small to characterize, most likely benign simple cysts. No further follow-up necessary Findings discussed by phone with Dr. Champagne at the time of interpretation The CT scanner at [facility] is accredited by the [employer] and the scans are performed using protocols designed to limit radiation exposure to as low as reasonably achievable to attain images of sufficient resolution adequate for diagnostic evaluation.
[2018-12-13] MEDS: Acetaminophen 650mg/20.3ml GT PRN ×2 (11:02→13:40)
[2018-12-13 12:00] VITALS: BP 99/62
[2018-12-13 12:53] LABS: AMYLASE 186 U/L (25-115)
--- NOTE | 2018-12-13 12:54 | Surgery Progress Note ---
Surgery Progress Note Subjective Additional Comments leukocytosis. anemia. abnormal electrolytes. CT noted. pending some labs. exam unchanged. Objective Last 24 Hour Vital Signs Date Time Temp Pulse Resp B/P (MAP) Pulse Ox O2 Delivery O2 Flow Rate FiO2 12/13/18 11:00 98 28 35 12/13/18 08:55 92 27 35 12/13/18 08:47 94 105/58 12/13/18 08:46 94 105/58 12/13/18 08:46 94 12/13/18 08:00 Mechanical Ventilator 12/13/18 08:00 92 12/13/18 08:00 99.3 94 28 105/58 (74) 99 12/13/18 08:00 35 12/13/18 06:45 99 25 35 12/13/18 05:14 83 25 35 12/13/18 04:00 35 12/13/18 04:00 Mechanical Ventilator 12/13/18 04:00 97.2 78 20 152/77 (102) 99 12/13/18 03:23 80 12/13/18 02:32 85 26 35 12/13/18 01:06 83 27 35 12/13/18 00:00 98.9 90 28 112/70 (84) 100 12/13/18 00:00 Mechanical Ventilator 12/12/18 23:43 89 12/12/18 22:40 88 28 35 12/12/18 20:47 103 120/72 12/12/18 20:36 103 27 35 12/12/18 20:00 35 12/12/18 20:00 98.6 98 24 120/72 (88) 99 12/12/18 20:00 Mechanical Ventilator 12/12/18 19:27 100 12/12/18 19:10 98 25 35 12/12/18 18:13 99 115/75 12/12/18 17:22 99 24 Mechanical Ventilator 15.0 28 12/12/18 17:00 105 27 35 12/12/18 16:00 98.2 104 22 104/60 (75) 97 12/12/18 16:00 35 12/12/18 16:00 104 12/12/18 16:00 Mechanical Ventilator 12/12/18 15:00 114 24 35 12/12/18 13:06 108 23 35 I&O Intake and Output 12/12/18 12/13/18 18:59 06:59 Intake Total 722.75 ml 1020 ml Output Total 900 ml 1300 ml Balance -177.25 ml -280 ml Intake Free Water 90 ml IV Total 722.75 ml 660 ml Tube Feeding 270 ml Output Urine Total 500 ml 800 ml Stool Total 400 ml 500 ml Dressing: saturated Wound: other Drains: other Cardiovascular: RSR Respiratory: decreased breath sounds Abdomen: soft, present bowel sounds, non-distended Extremities: no cyanosis, other Laboratory Tests Test 12/13/18 04:00 12/13/18 05:30 White Blood Count 15.8 K/UL (4.8-10.8) H 15.9 K/UL (4.8-10.8) H Red Blood Count 1.97 M/UL (4.70-6.10) L 2.04 M/UL (4.70-6.10) L Hemoglobin 6.2 G/DL (14.2-18.0) *L 6.4 G/DL (14.2-18.0) *L Hematocrit 19.5 % (42.0-52.0) L 20.2 % (42.0-52.0) L Mean Corpuscular Volume 99 FL (80-99) 99 FL (80-99) Mean Corpuscular Hemoglobin 31.3 PG (27.0-31.0) H 31.4 PG (27.0-31.0) H Mean Corpuscular Hemoglobin Concent 31.6 G/DL (32.0-36.0) L 31.7 G/DL (32.0-36.0) L Red Cell Distribution Width 15.4 % (11.6-14.8) H 15.4 % (11.6-14.8) H Platelet Count 143 K/UL (150-450) L 155 K/UL (150-450) Mean Platelet Volume 10.0 FL (6.5-10.1) 10.0 FL (6.5-10.1) Neutrophils (%) (Auto) % (45.0-75.0) % (45.0-75.0) Lymphocytes (%) (Auto) % (20.0-45.0) % (20.0-45.0) Monocytes (%) (Auto) % (1.0-10.0) % (1.0-10.0) Eosinophils (%) (Auto) % (0.0-3.0) % (0.0-3.0) Basophils (%) (Auto) % (0.0-2.0) % (0.0-2.0) Differential Total Cells Counted 100 100 Neutrophils % (Manual) 93 % (45-75) H 90 % (45-75) H Lymphocytes % (Manual) 4 % (20-45) L 4 % (20-45) L Monocytes % (Manual) 2 % (1-10) 4 % (1-10) Eosinophils % (Manual) 1 % (0-3) 1 % (0-3) Basophils % (Manual) 0 % (0-2) 1 % (0-2) Band Neutrophils 0 % (0-8) 0 % (0-8) Platelet Estimate Decreased L Adequate Platelet Morphology Normal Normal Hypochromasia 4+ 4+ Anisocytosis 1+ 1+ Rouleau 2+ 2+ Sodium Level 144 MMOL/L (136-145) Potassium Level 2.9 MMOL/L (3.5-5.1) L Chloride Level 112 MMOL/L (98-107) H Carbon Dioxide Level 17 MMOL/L (21-32) L Anion Gap 15 mmol/L (5-15) Blood Urea Nitrogen 20 mg/dL (7-18) H Creatinine 0.9 MG/DL (0.55-1.30) Estimat Glomerular Filtration Rate mL/min (>60) Glucose Level 385 MG/DL (74-106) #H Calcium Level 7.1 MG/DL (8.5-10.1) L Total Bilirubin 0.3 MG/DL (0.2-1.0) Aspartate Amino Transf (AST/SGOT) 26 U/L (15-37) Alanine Aminotransferase (ALT/SGPT) 34 U/L (12-78) Alkaline Phosphatase 64 U/L (46-116) Total Creatine Kinase 70 U/L (26-308) Pro-B-Type Natriuretic Peptide 3312 pg/mL (0-125) H Total Protein 5.8 G/DL (6.4-8.2) L Albumin 1.1 G/DL (3.4-5.0) L Globulin 4.7 g/dL Albumin/Globulin Ratio 0.2 (1.0-2.7) L Amylase Level Pending Lipase Pending Plan Problems: (1) Decubitus skin ulcer Assessment & Plan: Pt presented on admission with multiple pressure injuries and Skin erosion. Pt has trach and no evidence of skin breakdown noted under trach collar. Unstageable pressure injury noted to L earlobe. Stable dry brown eschar noted(L) 0.7cm x (W)0.5cm. Gross erythema with denudement and multiple scattered partial thickness wounds noted to buttocks and base of scrotum extending into both posterior upper thighs.Moderate amt sanguineous exudate noted upon removal of drsgs. 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 Moderate amt sanguineous exudate noted (L)3cm x (W)1cm x (D)7.4cm.Erythema periwound secondary to skin erosions. Partially opened DTPI L ischium .Base of wound purple,fluctuant with red borders.Open areas at base of this wound are beefy red in colour.Moderate amt sanguineous exudate noted.(L)7cm x (W)6.8cm. DTPI R ischium.Wound is fluctuant-purple in center with surrounding Maroon colour, and is partially opened with a small area of 5% that is necrotic.(L) 6.5cm x (W)5.5cm. Red skin erosion periwound. Partial thickness pressure injury L hip. Base of wound is moist -viable. Edges adherent and dry. Periwound without erythema or induration(L)1.2cm x (W)0.5cm. Elongate partial thickness wound posterior upper L thigh .Base of wound is moist -viable .Small amt sanguineous exudate noted. (+) maceration along borders. Erythema without induration or elevation in skin temp noted.(L)2cm x (W )9.4cm. DTPI noted to R heel .Base of injury is indurated and maroon in colour. Periwound is firm without erythema. (L)1.5cm x (W)1cm.R heel without evidence of skin breakdown. Tx.Plan: Cleanse Sacrum with Saline. Loosely pack with Hydrogel impregnated Kerlix. Apply Triad Paste periwound. Cover with ABD pad. Daily and prn. Cleanse R and L ischial wounds with Saline. Apply Moisture Barrier Paste.Cover with abd pads Daily and prn. Apply Moisture Barrier to skin erosions on buttocks,scrotum, and posterior aspects of both thighs.Cover with ABD pad daily and prn. Cleanse wound L hip with Saline. Apply Moisture Barrier paste .Cover with Optifoam drsg Daily and prn. Cleanse wound posterior upper L thigh with saline .Apply Hydrogel. Cover with Optifoam drsg Daily and prn. Apply Cavilon Skin Barrier to L earlobe daily. Please monitor. Apply Cavilon Skin Barrier to L heel. Cover with Optifoam drsg. Change every 7 days and prn. Apply Cavilon Skin Barrier to R heel. Cover with Optifoam drsg .Change every 7 days and prn. Air fluidized mattress. Reposition every 2hours or as tolerated. Off-load heels with pillow. (2) Acute and chronic respiratory failure Assessment & Plan: cont with breathing treatments trach stable trach site clean will change dressings daily (3) Acute pancreatitis Assessment & Plan: Findings consistent with uncomplicated nonnecrotizing acute pancreatitis. No evidence of associated peripancreatic abscess Surgical changes as described, including right lower quadrant ileostomy, subtotal colectomy with Haroldo procedure. Wall thickening of the Haroldo pouch. This could indicate inflammation. However, this is also present on both of the prior 2 exams and may be baseline for this patient Evidence of mild anasarca, with edema of the subcutaneous fat. This is a new finding Chronic appearing decubitus changes of the bilateral ischia. Correlate with clinical findings Complete left lower lobe consolidation. This is similar to both of the prior CTs , and is likely a chronic finding. There is progressive chronic interstitial fibrotic change involving the right middle lobe. There is also right lower lobe granulomatous calcification Extensive pulmonary parenchymal opacities bilaterally may reflect acute inflammation/infection, edema, progressive chronic scarring, or combination of the above. These are considerably more extensive than on the prior study Trace bilateral pleural fluid New finding of nonobstructive right renal collecting system calculi 4 mm calculus within the bladder lumen. This may represent a bladder calculus, a calculus and left ureteral orifice, or recently passed stone. If either of the latter, no evidence of resultant hydronephrosis or hydroureter Suprapubic catheter. This is a new finding since the 2016 exams. Interim removal of previously demonstrated Bledsoe catheter Gastrostomy Left renal cysts. Subcentimeter low-attenuation right renal lesions, too small to characterize, most likely benign simple cysts. No further follow-up necessary -pending labs -no acute surgical intervention planned -transfuse as per hematology -Abx as per Javier Donahue Dec 13, 2018 12:54
--- NOTE | 2018-12-13 14:00 | NUR ---
NURSE NOTES: CALLED AND SPOKE WITH DR BOWEN RE RAY OF PATIENT, ORDERED TO GIVE ANOTHER DOSE OF TYLENOL. WILL CONTINUE TO MONITOR.
--- NOTE | 2018-12-13 14:05 | Nephrology Progress Note ---
Assessment/Plan Problem List: (1) ATN (acute tubular necrosis) (2) Anemia (3) Feeding by G-tube (4) Acute and chronic respiratory failure (5) UTI (urinary tract infection) (6) Hyponatremia Assessment Patient have mainly Pre Renal Azotemia with possible underlying CKD- Low Na partly depletional, partly due to Hyperglycemia Other conditions as outlined: (1) Acute and chronic respiratory failure ([id number]) (2) Sepsis (3) Malnutrition and HypoAlbuminemia (4) UTI (urinary tract infection) (5) Anemia (6) Diabetes mellitus, type II (7) Colostomy care (8) Cerebral vascular disease (9) Decubitus ulcer of sacral region, stage 2 (10) Feeding by G-tube (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 IV KCL Hydrate- change IV to D5 now 50 cc / h up dose digoxin and tenormin K and Phos supplement as needed Keep electrolytes in check Keep BS and BP in check Subjective ROS Limited/Unobtainable: Yes Objective Objective Last 24 Hour Vital Signs Date Time Temp Pulse Resp B/P (MAP) Pulse Ox O2 Delivery O2 Flow Rate FiO2 12/13/18 12:00 Mechanical Ventilator 12/13/18 12:00 35 12/13/18 12:00 99.9 94 24 99/62 (74) 99 12/13/18 11:32 99.9 12/13/18 11:00 98 28 35 12/13/18 08:55 92 27 35 12/13/18 08:47 94 105/58 12/13/18 08:46 94 105/58 12/13/18 08:46 94 12/13/18 08:00 Mechanical Ventilator 12/13/18 08:00 92 12/13/18 08:00 99.3 94 28 105/58 (74) 99 12/13/18 08:00 35 12/13/18 06:45 99 25 35 12/13/18 05:14 83 25 35 12/13/18 04:00 35 12/13/18 04:00 Mechanical Ventilator 12/13/18 04:00 97.2 78 20 152/77 (102) 99 12/13/18 03:23 80 12/13/18 02:32 85 26 35 12/13/18 01:06 83 27 35 12/13/18 00:00 98.9 90 28 112/70 (84) 100 12/13/18 00:00 Mechanical Ventilator 12/12/18 23:43 89 12/12/18 22:40 88 28 35 12/12/18 20:47 103 120/72 12/12/18 20:36 103 27 35 12/12/18 20:00 35 12/12/18 20:00 98.6 98 24 120/72 (88) 99 12/12/18 20:00 Mechanical Ventilator 12/12/18 19:27 100 12/12/18 19:10 98 25 35 12/12/18 18:13 99 115/75 12/12/18 17:22 99 24 Mechanical Ventilator 15.0 28 12/12/18 17:00 105 27 35 12/12/18 16:00 98.2 104 22 104/60 (75) 97 12/12/18 16:00 35 12/12/18 16:00 104 12/12/18 16:00 Mechanical Ventilator 12/12/18 15:00 114 24 35 Intake and Output 12/12/18 12/13/18 18:59 06:59 Intake Total 722.75 ml 1020 ml Output Total 900 ml 1300 ml Balance -177.25 ml -280 ml Intake Free Water 90 ml IV Total 722.75 ml 660 ml Tube Feeding 270 ml Output Urine Total 500 ml 800 ml Stool Total 400 ml 500 ml Laboratory Tests 12/13/18 04:00: White Blood Count 15.8H, Red Blood Count 1.97L, Hemoglobin 6.2*L, Hematocrit 19.5L, Mean Corpuscular Volume 99, Mean Corpuscular Hemoglobin 31.3H, Mean Corpuscular Hemoglobin Concent 31.6L, Red Cell Distribution Width 15.4H, Platelet Count 143L, Mean Platelet Volume 10.0, Neutrophils (%) (Auto) , Lymphocytes (%) (Auto) , Monocytes (%) (Auto) , Eosinophils (%) (Auto) , Basophils (%) (Auto) , Differential Total Cells Counted 100, Neutrophils % ( Manual) 93H, Lymphocytes % (Manual) 4L, Monocytes % (Manual) 2, Eosinophils % ( Manual) 1, Basophils % (Manual) 0, Band Neutrophils 0, Platelet Estimate DecreasedL, Platelet Morphology Normal, Hypochromasia 4+, Anisocytosis 1+, Rouleau 2+, Sodium Level 144, Potassium Level 2.9L, Chloride Level 112H, Carbon Dioxide Level 17L, Anion Gap 15, Blood Urea Nitrogen 20H, Creatinine 0.9, Estimat Glomerular Filtration Rate , Glucose Level 385#H, Calcium Level 7.1L, Total Bilirubin 0.3, Aspartate Amino Transf (AST/SGOT) 26, Alanine Aminotransferase (ALT/SGPT) 34, Alkaline Phosphatase 64, Total Creatine Kinase 70, Pro-B-Type Natriuretic Peptide 3312H, Total Protein 5.8L, Albumin 1.1L, Globulin 4.7, Albumin/Globulin Ratio 0.2L, Amylase Level 186H, Lipase 1286H 12/13/18 05:30: White Blood Count 15.9H, Red Blood Count 2.04L, Hemoglobin 6.4*L, Hematocrit 20.2L, Mean Corpuscular Volume 99, Mean Corpuscular Hemoglobin 31.4H, Mean Corpuscular Hemoglobin Concent 31.7L, Red Cell Distribution Width 15.4H, Platelet Count 155, Mean Platelet Volume 10.0, Neutrophils (%) (Auto) , Lymphocytes (%) (Auto) , Monocytes (%) (Auto) , Eosinophils (%) (Auto) , Basophils (%) (Auto) , Differential Total Cells Counted 100, Neutrophils % ( Manual) 90H, Lymphocytes % (Manual) 4L, Monocytes % (Manual) 4, Eosinophils % ( Manual) 1, Basophils % (Manual) 1, Band Neutrophils 0, Platelet Estimate Adequate, Platelet Morphology Normal, Hypochromasia 4+, Anisocytosis 1+, Rouleau 2+ Height (Feet): 5 Height (Inches): 8.00 Weight (Pounds): 135 General Appearance: no apparent distress Cardiovascular: tachycardia Respiratory/Chest: decreased breath sounds Abdomen: distended Objective no change Migue Moreland MD Dec 13, 2018 14:05
--- NOTE | 2018-12-13 14:43 | Infectious Diseases Prog Note ---
Assessment/Plan Assessment/Plan Assessment: Severe Sepsis 2ry to GNR -CXR: Probable small left pleural effusion, also evident on prior study 2017. Bilateral interstitial disease, unchanged, suspect chronic. Correlate with clinical findings GNR bacteremia, likely from UTI -CT abd/p: Findings consistent with uncomplicated nonnecrotizing acute pancreatitis. No evidence of associated peripancreatic abscess Surgical changes as described, including right lower quadrant ileostomy, subtotal colectomy with Haroldo procedure. Wall thickening of the Haroldo pouch. This could indicate inflammation. However, this is also present on both of the prior 2 exams and may be baseline for this patien. Evidence of mild anasarca, with edema of the subcutaneous fat. This is a new finding. Chronic appearing decubitus changes of the bilateral ischia. Correlate with clinical findings. Complete left lower lobe consolidation. This is similar to both of the prior CTs, andis likely a chronic finding. There is progressive chronic interstitial fibrotic change involving the right middle lobe. There is also right lower lobe granulomatous calcification, Extensive pulmonary parenchymal opacities bilaterally may reflect acute inflammation/infection, edema, progressive chronic scarring, orcombination of the above. These are considerably more extensive than on the prior study -u/a 10-15, nit neg, luek +3; ucx 50-60k Enterococcus (Vanco resist; S AMp), 40-50 K Proteus -12/07 Bcx 3/4 Proteus; 12/08 Bcx 1/4 Proteus (S Aztreonam; R Cipro, levo; I Imipenem); 12/12 BCx p Acute pancreatitis -lipase ~1k Fever - resolved Leukocytosis , increased-in the setting of bacteremia, UTI and acute pancreatitis Hyponatremia, improving MAULIK, improving dysphagia s/p peg COPD GBS quadriplegia chronic resp failure s/p trach HTN CVA, nonverbal anemia SNF resident Plan: -Continue Aztreonam #5/14 for Proteus UTi and bacteremia; and IV Daptomycin #4/ 5 for enterococcus UTI - f/u Bcx x2, Sp cx -Monitor CBC/CMP, temperatures -PEG/Trach care -Aspiration precautions -management of acute pancreatitis per primary team. Will continue to follow along with you. Subjective Allergies: Coded Allergies: PENICILLINS (Unverified Allergy, Unknown, 02/26/16) POLYMYXIN B (Unverified Allergy, Unknown, 02/26/16) VANCOMYCIN (Unverified Allergy, Unknown, 02/26/16) Subjective afebrile >48hrs repeat Bcx p leukocytosis stable at 15 Objective Vital Signs Last 24 Hour Vital Signs Date Time Temp Pulse Resp B/P (MAP) Pulse Ox O2 Delivery O2 Flow Rate FiO2 12/13/18 12:00 93 12/13/18 12:00 Mechanical Ventilator 12/13/18 12:00 35 12/13/18 12:00 99.9 94 24 99/62 (74) 99 12/13/18 11:32 99.9 12/13/18 11:00 98 28 35 12/13/18 08:55 92 27 35 12/13/18 08:47 94 105/58 12/13/18 08:46 94 105/58 12/13/18 08:46 94 12/13/18 08:00 Mechanical Ventilator 12/13/18 08:00 92 12/13/18 08:00 99.3 94 28 105/58 (74) 99 12/13/18 08:00 35 12/13/18 06:45 99 25 35 12/13/18 05:14 83 25 35 12/13/18 04:00 35 12/13/18 04:00 Mechanical Ventilator 12/13/18 04:00 97.2 78 20 152/77 (102) 99 12/13/18 03:23 80 12/13/18 02:32 85 26 35 12/13/18 01:06 83 27 35 12/13/18 00:00 98.9 90 28 112/70 (84) 100 12/13/18 00:00 Mechanical Ventilator 12/12/18 23:43 89 12/12/18 22:40 88 28 35 12/12/18 20:47 103 120/72 12/12/18 20:36 103 27 35 12/12/18 20:00 35 12/12/18 20:00 98.6 98 24 120/72 (88) 99 12/12/18 20:00 Mechanical Ventilator 12/12/18 19:27 100 12/12/18 19:10 98 25 35 12/12/18 18:13 99 115/75 12/12/18 17:22 99 24 Mechanical Ventilator 15.0 28 12/12/18 17:00 105 27 35 12/12/18 16:00 98.2 104 22 104/60 (75) 97 12/12/18 16:00 35 12/12/18 16:00 104 12/12/18 16:00 Mechanical Ventilator 12/12/18 15:00 114 24 35 Height (Feet): 5 Height (Inches): 8.00 Weight (Pounds): 135 Objective HEENT: Eyes were normal. ENT, mucous membranes were not dehydrated. NECK: Supple. There was no goiter. No mass. No lymphadenopathy. There was no JVD. No bruits. Carotid upstroke was 2+. LUNGS: Clear. HEART: PMI was in the fifth left intercostal space in midclavicular line. There was normal S1 and normal S2. There was no murmur. No arrhythmia. No S3. No S4. No pericardial rub. ABDOMEN: Soft and nontender without organomegaly. There were no masses palpable. Normal bowel sounds without bruits. There was no guarding. No rebound tenderness. No ascites. No hernia. No CVA tenderness. EXTREMITIES: No cyanosis, no clubbing, and no edema. Extremities were warm. Microbiology Date/Time Source Procedure Growth Status 12/12/18 15:20 Sputum Gram Stain - Final Resulted 12/12/18 15:20 Sputum Sputum Culture Pending Resulted Laboratory Tests Test 12/13/18 04:00 12/13/18 05:30 White Blood Count 15.8 K/UL (4.8-10.8) H 15.9 K/UL (4.8-10.8) H Red Blood Count 1.97 M/UL (4.70-6.10) L 2.04 M/UL (4.70-6.10) L Hemoglobin 6.2 G/DL (14.2-18.0) *L 6.4 G/DL (14.2-18.0) *L Hematocrit 19.5 % (42.0-52.0) L 20.2 % (42.0-52.0) L Mean Corpuscular Volume 99 FL (80-99) 99 FL (80-99) Mean Corpuscular Hemoglobin 31.3 PG (27.0-31.0) H 31.4 PG (27.0-31.0) H Mean Corpuscular Hemoglobin Concent 31.6 G/DL (32.0-36.0) L 31.7 G/DL (32.0-36.0) L Red Cell Distribution Width 15.4 % (11.6-14.8) H 15.4 % (11.6-14.8) H Platelet Count 143 K/UL (150-450) L 155 K/UL (150-450) Mean Platelet Volume 10.0 FL (6.5-10.1) 10.0 FL (6.5-10.1) Neutrophils (%) (Auto) % (45.0-75.0) % (45.0-75.0) Lymphocytes (%) (Auto) % (20.0-45.0) % (20.0-45.0) Monocytes (%) (Auto) % (1.0-10.0) % (1.0-10.0) Eosinophils (%) (Auto) % (0.0-3.0) % (0.0-3.0) Basophils (%) (Auto) % (0.0-2.0) % (0.0-2.0) Differential Total Cells Counted 100 100 Neutrophils % (Manual) 93 % (45-75) H 90 % (45-75) H Lymphocytes % (Manual) 4 % (20-45) L 4 % (20-45) L Monocytes % (Manual) 2 % (1-10) 4 % (1-10) Eosinophils % (Manual) 1 % (0-3) 1 % (0-3) Basophils % (Manual) 0 % (0-2) 1 % (0-2) Band Neutrophils 0 % (0-8) 0 % (0-8) Platelet Estimate Decreased L Adequate Platelet Morphology Normal Normal Hypochromasia 4+ 4+ Anisocytosis 1+ 1+ Rouleau 2+ 2+ Sodium Level 144 MMOL/L (136-145) Potassium Level 2.9 MMOL/L (3.5-5.1) L Chloride Level 112 MMOL/L (98-107) H Carbon Dioxide Level 17 MMOL/L (21-32) L Anion Gap 15 mmol/L (5-15) Blood Urea Nitrogen 20 mg/dL (7-18) H Creatinine 0.9 MG/DL (0.55-1.30) Estimat Glomerular Filtration Rate mL/min (>60) Glucose Level 385 MG/DL (74-106) #H Calcium Level 7.1 MG/DL (8.5-10.1) L Total Bilirubin 0.3 MG/DL (0.2-1.0) Aspartate Amino Transf (AST/SGOT) 26 U/L (15-37) Alanine Aminotransferase (ALT/SGPT) 34 U/L (12-78) Alkaline Phosphatase 64 U/L (46-116) Total Creatine Kinase 70 U/L (26-308) Pro-B-Type Natriuretic Peptide 3312 pg/mL (0-125) H Total Protein 5.8 G/DL (6.4-8.2) L Albumin 1.1 G/DL (3.4-5.0) L Globulin 4.7 g/dL Albumin/Globulin Ratio 0.2 (1.0-2.7) L Amylase Level 186 U/L (25-115) H Lipase 1286 U/L (73-393) H Current Medications Medications (Trade) Dose Ordered Sig/Fransisco Route PRN Reason Start Time Stop Time Status Last Admin Dose Admin Acetaminophen (Tylenol) 650 mg Q4H PRN GT For Pain 12/07/18 17:00 01/06/19 16:59 12/13/18 13:40 Acetaminophen (Tylenol) 650 mg Q4H PRN GT fever 12/10/18 09:45 01/06/19 16:59 Albuterol/ Ipratropium (Albuterol/ Ipratropium) 3 ml Q4H PRN HHN Shortness of Breath 12/10/18 09:25 12/15/18 09:24 Atenolol (Tenormin) 25 mg Q12HR ORAL 12/12/18 21:00 01/11/19 20:59 12/13/18 08:47 Aztreonam 1 gm/ Dextrose 55 ml @ 110 mls/hr Q8HR IVPB 12/09/18 15:00 12/16/18 14:59 12/13/18 13:39 Barium Sulfate (Readi-Cat 2) 450 ml NOW PRN ORAL Radiology Procedure 12/12/18 13:45 12/14/18 13:42 Chlorhexidine Gluconate (Sandra-Hex 2%) 1 applic DAILY@2000 TOPIC 12/10/18 20:00 01/09/19 19:59 12/12/18 20:47 Daptomycin 250 mg/ Sodium Chloride 55 ml @ 100 mls/hr Q24H IV 12/09/18 16:00 12/16/18 15:59 12/12/18 15:58 Dextrose 1,000 ml @ 50 mls/hr Q20H IV 12/11/18 13:00 01/10/19 12:59 12/13/18 05:00 Dextrose (Dextrose 50%) 25 ml Q30M PRN IV Hypoglycemia 12/10/18 14:00 01/09/19 13:59 Dextrose (Dextrose 50%) 50 ml Q30M PRN IV Hypoglycemia 12/10/18 14:00 01/09/19 13:59 Digoxin (Lanoxin) 0.25 mg DAILY GT 12/12/18 09:00 01/10/19 08:59 12/13/18 08:46 Diltiazem HCl (Cardizem) 10 mg BIDPRN PRN IVP FOR HR >140 12/12/18 08:45 01/11/19 08:44 Diltiazem HCl (Cardizem) 30 mg BID GT 12/11/18 18:00 01/10/19 17:59 12/13/18 08:46 Heparin Sodium (Porcine) (Heparin 5000 units/ml) 5,000 units EVERY 12 HOURS SUBQ 12/07/18 21:00 01/06/19 20:59 12/12/18 20:50 Insulin Aspart (NovoLOG) EVERY 4 HOURS SUBQ 12/12/18 05:00 01/09/19 04:59 12/13/18 12:14 Iopamidol (Isovue-300 100ml) 100 ml NOW PRN INJ Radiology Procedure 12/12/18 13:45 12/14/18 13:44 Morphine Sulfate (Morphine Sulfate) 2 mg Q4H PRN IVP Moderate Pain (Pain Scale 4-6) 12/07/18 17:00 12/14/18 16:59 12/09/18 21:19 Nitroglycerin (Ntg) 0.4 mg Q5M PRN SL Prn Chest Pain 12/07/18 17:00 01/06/19 16:59 Ondansetron HCl (Zofran) 4 mg Q6H PRN IVP Nausea & Vomiting 12/07/18 17:00 01/06/19 16:59 Pantoprazole (Protonix) 40 mg EVERY 12 HOURS IVP 12/09/18 21:00 01/08/19 20:59 12/13/18 08:47 Phosphorus (Phospha 250 Neutral) 500 mg THREE TIMES A DAY GT 12/10/18 09:00 01/09/19 08:59 12/13/18 12:09 Polyethylene Glycol (Miralax) 17 gm DAILYPRN PRN GT Constipation 12/10/18 09:45 01/06/19 16:59 Potassium Chloride 100 ml @ 100 mls/hr Q1HR IVPB 12/13/18 09:00 12/13/18 14:59 12/13/18 13:39 Temazepam (Restoril) 15 mg HSPRN PRN GT Insomnia 12/10/18 09:45 12/14/18 16:59 Aminah Champagne M.D. Dec 13, 2018 14:43
[2018-12-13 16:00] VITALS: BP 95/54
--- NOTE | 2018-12-13 16:00 | NUR ---
NURSE NOTES: BLOOD TRANSFUSION STARTED. NO REACTIONS NOTED. PATIENT KEPT CLEAN AND DRY. WOUND DRESSING DONE. WILL CONTINUE TO MONITOR.
--- NOTE | 2018-12-13 16:35 | General Progress Note ---
Assessment/Plan Assessment/Plan Assessment/Recs: # Leukocytosis/Elevated white blood cell count, unspecified likely related to underlying stress reaction, smoking, or underlying infection (especially if bandemia is noted) --> have reviewed peripheral smear and bandemia/neutrophilia noted --> continue antibiotics if they have been started by ID team --> monitor for resolution ---> WBC trend: 11-->16-->15 # Anemia of chronic disease due to underlying chronic medical issues, multifactorial --> Anemia workup has been reviewed, Ferritin [id number] --> No evidence of hemolysis is noted, peripheral smear has been reviewed. --> Hgb goal >7. Transfuse prn. --> Epogen or iron at this time is not particularly indicated --> Medications have been reviewed -->HGB trend: 7.8-->7.6-->6.2-->6.4 # Thrombocytopenia - potential causes multifactorial, evaluate liver and viral etiologies to begin, also could be related to underlying medications patient has received. --> Hep panel and HIV negative --> US abd to evaluate for cirrhosis and hsm reviewed --> Peripheral smear ordered to evaluate for blasts /schistocytes --> abx and other meds have been reviewed --> ok for ppx if plt >50k w/ either heparin or lovenox --> Transfuse if Plt < 20k and fever, or if Plt < 10k without fever # Severe prerenal azotemia, on jeanette saline at 150 mL/hr. #Hypouricemia, appreciate Pulmonary computing consultant # Severe Sepsis, CXR: Probable small left pleural effusion, also evident on prior study 11/22/2017. -->appreciate ID recs # [email or web address], likely from UTI The timing of this note does not necessarily reflect the time of the patient was seen. Greatly appreciate consultation! Subjective Constitutional: Denies: no symptoms, chills, diaphoresis, fever, malaise, weakness, other HEENT: Denies: no symptoms, eye pain, blurred vision, tearing, double vision, ear pain, ear discharge, nose pain, nose congestion, throat pain, throat swelling, mouth pain, mouth swelling, other Cardiovascular: Denies: no symptoms, chest pain, edema, irregular heart rate, lightheadedness, palpitations, syncope, other Endocrine: Denies: no symptoms, excessive sweating, flushing, intolerance to cold, intolerance to heat, increased hunger, increased thirst, increased urine, unexplained weight gain, unexplained weight loss, other Allergies: Coded Allergies: PENICILLINS (Unverified Allergy, Unknown, 02/26/16) POLYMYXIN B (Unverified Allergy, Unknown, 02/26/16) VANCOMYCIN (Unverified Allergy, Unknown, 02/26/16) Subjective 12/11: seen by bedside, vent dependent, leukocytosis, 11, hgb 7, will transfuse, no events 12/12: awake, comfortable wbc trending up at 16, no events 12/13: hgb 6.4, receiving transfusion, , wbc remains elevated. no acute events Objective Last 24 Hour Vital Signs Date Time Temp Pulse Resp B/P (MAP) Pulse Ox O2 Delivery O2 Flow Rate FiO2 12/13/18 14:10 98.1 12/13/18 12:00 93 12/13/18 12:00 Mechanical Ventilator 12/13/18 12:00 35 12/13/18 12:00 99.9 94 24 99/62 (74) 99 12/13/18 11:00 98 28 35 12/13/18 08:55 92 27 35 12/13/18 08:47 94 105/58 12/13/18 08:46 94 105/58 12/13/18 08:46 94 12/13/18 08:00 Mechanical Ventilator 12/13/18 08:00 92 12/13/18 08:00 99.3 94 28 105/58 (74) 99 12/13/18 08:00 35 12/13/18 06:45 99 25 35 12/13/18 05:14 83 25 35 12/13/18 04:00 35 12/13/18 04:00 Mechanical Ventilator 12/13/18 04:00 97.2 78 20 152/77 (102) 99 12/13/18 03:23 80 12/13/18 02:32 85 26 35 12/13/18 01:06 83 27 35 12/13/18 00:00 98.9 90 28 112/70 (84) 100 12/13/18 00:00 Mechanical Ventilator 12/12/18 23:43 89 12/12/18 22:40 88 28 35 12/12/18 20:47 103 120/72 3/11/19 20:36 103 27 35 12/12/18 20:00 35 12/12/18 20:00 98.6 98 24 120/72 (88) 99 12/12/18 20:00 Mechanical Ventilator 12/12/18 19:27 100 12/12/18 19:10 98 25 35 12/12/18 18:13 99 115/75 12/12/18 17:22 99 24 Mechanical Ventilator 15.0 28 12/12/18 17:00 105 27 35 Intake and Output 12/12/18 12/13/18 19:00 07:00 Intake Total 722.75 ml 1015 ml Output Total 900 ml 1300 ml Balance -177.25 ml -285 ml Intake Free Water 90 ml IV Total 722.75 ml 610 ml Tube Feeding 315 ml Output Urine Total 500 ml 800 ml Stool Total 400 ml 500 ml Laboratory Tests 12/13/18 04:00: White Blood Count 15.8H, Red Blood Count 1.97L, Hemoglobin 6.2*L, Hematocrit 19.5L, Mean Corpuscular Volume 99, Mean Corpuscular Hemoglobin 31.3H, Mean Corpuscular Hemoglobin Concent 31.6L, Red Cell Distribution Width 15.4H, Platelet Count 143L, Mean Platelet Volume 10.0, Neutrophils (%) (Auto) , Lymphocytes (%) (Auto) , Monocytes (%) (Auto) , Eosinophils (%) (Auto) , Basophils (%) (Auto) , Differential Total Cells Counted 100, Neutrophils % ( Manual) 93H, Lymphocytes % (Manual) 4L, Monocytes % (Manual) 2, Eosinophils % ( Manual) 1, Basophils % (Manual) 0, Band Neutrophils 0, Platelet Estimate DecreasedL, Platelet Morphology Normal, Hypochromasia 4+, Anisocytosis 1+, Rouleau 2+, Sodium Level 144, Potassium Level 2.9L, Chloride Level 112H, Carbon Dioxide Level 17L, Anion Gap 15, Blood Urea Nitrogen 20H, Creatinine 0.9, Estimat Glomerular Filtration Rate , Glucose Level 385#H, Calcium Level 7.1L, Total Bilirubin 0.3, Aspartate Amino Transf (AST/SGOT) 26, Alanine Aminotransferase (ALT/SGPT) 34, Alkaline Phosphatase 64, Total Creatine Kinase 70, Pro-B-Type Natriuretic Peptide 3312H, Total Protein 5.8L, Albumin 1.1L, Globulin 4.7, Albumin/Globulin Ratio 0.2L, Amylase Level 186H, Lipase 1286H 12/13/18 05:30: White Blood Count 15.9H, Red Blood Count 2.04L, Hemoglobin 6.4*L, Hematocrit 20.2L, Mean Corpuscular Volume 99, Mean Corpuscular Hemoglobin 31.4H, Mean Corpuscular Hemoglobin Concent 31.7L, Red Cell Distribution Width 15.4H, Platelet Count 155, Mean Platelet Volume 10.0, Neutrophils (%) (Auto) , Lymphocytes (%) (Auto) , Monocytes (%) (Auto) , Eosinophils (%) (Auto) , Basophils (%) (Auto) , Differential Total Cells Counted 100, Neutrophils % ( Manual) 90H, Lymphocytes % (Manual) 4L, Monocytes % (Manual) 4, Eosinophils % ( Manual) 1, Basophils % (Manual) 1, Band Neutrophils 0, Platelet Estimate Adequate, Platelet Morphology Normal, Hypochromasia 4+, Anisocytosis 1+, Rouleau 2+ Height (Feet): 5 Height (Inches): 8.00 Weight (Pounds): 135 Objective Physical Exam HEENT: Eyes were normal. ENT, mucous membranes were not dehydrated. NECK: Supple. There was no goiter. No mass. No lymphadenopathy. There was no JVD. No bruits. Carotid upstroke was 2+. LUNGS: Clear. Vent++ HEART: PMI was in the fifth left intercostal space in midclavicular line. There was normal S1 and normal S2. There was no murmur. No arrhythmia. No S3. No S4. No pericardial rub. ABDOMEN: Soft and nontender without organomegaly. There were no masses palpable. Normal bowel sounds without bruits. There was no guarding. No rebound tenderness. No ascites. No hernia. No CVA tenderness. Liver span was 8 cm, mostly nontender. EXTREMITIES: No cyanosis, no clubbing, and no edema. Extremities were warm. Adarsh Kim MD Dec 13, 2018 16:35
--- NOTE | 2018-12-13 18:14 | Cardiology Progress Note ---
Assessment/Plan Assessment/Plan 1. Supraventricular tachycardia. recurrent 12/09 and 12/10 2. Renal insufficiency. 3. Hyponatremia. 4. 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 6. History of bowel resection. 7. History of CVA. 8. Chronic tracheostomy. 9. Diabetes mellitus. 10 pancreatitis 11. anemai bp borderline cortisol was normal already on bb and seem to be breaking through wiht svt on low dose Cardizem via gtube and dig (will decrease bb gradully ) dig level 0.7 may need prbc tx heart rate much imporved so far Subjective ROS Limited/Unobtainable: Yes Subjective on the vent Objective Last 24 Hour Vital Signs Date Time Temp Pulse Resp B/P (MAP) Pulse Ox O2 Delivery O2 Flow Rate FiO2 12/13/18 17:05 87 95/54 12/13/18 17:00 80 25 35 12/13/18 16:00 87 12/13/18 16:00 Mechanical Ventilator 12/13/18 16:00 35 12/13/18 16:00 97.9 87 22 95/54 (68) 100 12/13/18 15:30 85 28 35 12/13/18 14:10 98.1 12/13/18 13:32 90 28 35 12/13/18 12:00 93 12/13/18 12:00 Mechanical Ventilator 12/13/18 12:00 35 12/13/18 12:00 99.9 94 24 99/62 (74) 99 12/13/18 11:00 98 28 35 12/13/18 08:55 92 27 35 12/13/18 08:47 94 105/58 12/13/18 08:46 94 105/58 12/13/18 08:46 94 12/13/18 08:00 Mechanical Ventilator 12/13/18 08:00 92 12/13/18 08:00 99.3 94 28 105/58 (74) 99 12/13/18 08:00 35 12/13/18 06:45 99 25 35 12/13/18 05:14 83 25 35 12/13/18 04:00 35 12/13/18 04:00 Mechanical Ventilator 12/13/18 04:00 97.2 78 20 152/77 (102) 99 12/13/18 03:23 80 12/13/18 02:32 85 26 35 12/13/18 01:06 83 27 35 12/13/18 00:00 98.9 90 28 112/70 (84) 100 12/13/18 00:00 Mechanical Ventilator 12/12/18 23:43 89 12/12/18 22:40 88 28 35 12/12/18 20:47 103 120/72 12/12/18 20:36 103 27 35 12/12/18 20:00 35 12/12/18 20:00 98.6 98 24 120/72 (88) 99 12/12/18 20:00 Mechanical Ventilator 12/12/18 19:27 100 12/12/18 19:10 98 25 35 12/12/18 18:13 99 115/75 General Appearance: no apparent distress, on vent, patient on isolation Neck: supple Cardiovascular: normal rate Respiratory/Chest: rhonchi - bilaterally Abdomen: non tender, soft Extremities: no swelling Intake and Output 12/12/18 12/13/18 19:00 07:00 Intake Total 722.75 ml 1015 ml Output Total 900 ml 1300 ml Balance -177.25 ml -285 ml Intake Free Water 90 ml IV Total 722.75 ml 610 ml Tube Feeding 315 ml Output Urine Total 500 ml 800 ml Stool Total 400 ml 500 ml Laboratory Tests Test 12/13/18 04:00 12/13/18 05:30 White Blood Count 15.8 K/UL (4.8-10.8) H 15.9 K/UL (4.8-10.8) H Red Blood Count 1.97 M/UL (4.70-6.10) L 2.04 M/UL (4.70-6.10) L Hemoglobin 6.2 G/DL (14.2-18.0) *L 6.4 G/DL (14.2-18.0) *L Hematocrit 19.5 % (42.0-52.0) L 20.2 % (42.0-52.0) L Mean Corpuscular Volume 99 FL (80-99) 99 FL (80-99) Mean Corpuscular Hemoglobin 31.3 PG (27.0-31.0) H 31.4 PG (27.0-31.0) H Mean Corpuscular Hemoglobin Concent 31.6 G/DL (32.0-36.0) L 31.7 G/DL (32.0-36.0) L Red Cell Distribution Width 15.4 % (11.6-14.8) H 15.4 % (11.6-14.8) H Platelet Count 143 K/UL (150-450) L 155 K/UL (150-450) Mean Platelet Volume 10.0 FL (6.5-10.1) 10.0 FL (6.5-10.1) Neutrophils (%) (Auto) % (45.0-75.0) % (45.0-75.0) Lymphocytes (%) (Auto) % (20.0-45.0) % (20.0-45.0) Monocytes (%) (Auto) % (1.0-10.0) % (1.0-10.0) Eosinophils (%) (Auto) % (0.0-3.0) % (0.0-3.0) Basophils (%) (Auto) % (0.0-2.0) % (0.0-2.0) Differential Total Cells Counted 100 100 Neutrophils % (Manual) 93 % (45-75) H 90 % (45-75) H Lymphocytes % (Manual) 4 % (20-45) L 4 % (20-45) L Monocytes % (Manual) 2 % (1-10) 4 % (1-10) Eosinophils % (Manual) 1 % (0-3) 1 % (0-3) Basophils % (Manual) 0 % (0-2) 1 % (0-2) Band Neutrophils 0 % (0-8) 0 % (0-8) Platelet Estimate Decreased L Adequate Platelet Morphology Normal Normal Hypochromasia 4+ 4+ Anisocytosis 1+ 1+ Rouleau 2+ 2+ Sodium Level 144 MMOL/L (136-145) Potassium Level 2.9 MMOL/L (3.5-5.1) L Chloride Level 112 MMOL/L (98-107) H Carbon Dioxide Level 17 MMOL/L (21-32) L Anion Gap 15 mmol/L (5-15) Blood Urea Nitrogen 20 mg/dL (7-18) H Creatinine 0.9 MG/DL (0.55-1.30) Estimat Glomerular Filtration Rate mL/min (>60) Glucose Level 385 MG/DL (74-106) #H Calcium Level 7.1 MG/DL (8.5-10.1) L Total Bilirubin 0.3 MG/DL (0.2-1.0) Aspartate Amino Transf (AST/SGOT) 26 U/L (15-37) Alanine Aminotransferase (ALT/SGPT) 34 U/L (12-78) Alkaline Phosphatase 64 U/L (46-116) Total Creatine Kinase 70 U/L (26-308) Pro-B-Type Natriuretic Peptide 3312 pg/mL (0-125) H Total Protein 5.8 G/DL (6.4-8.2) L Albumin 1.1 G/DL (3.4-5.0) L Globulin 4.7 g/dL Albumin/Globulin Ratio 0.2 (1.0-2.7) L Amylase Level 186 U/L (25-115) H Lipase 1286 U/L (73-393) H Microbiology Date/Time Source Procedure Growth Status 12/12/18 15:20 Sputum Gram Stain - Final Resulted 12/12/18 15:20 Sputum Sputum Culture Pending Resulted Donny Kelley MD Dec 13, 2018 18:14
[2018-12-13] MEDS: DAPTOmycin 250 MG in NS 55 ML IV SCH (18:41)
--- NOTE | 2018-12-13 19:02 | NUR ---
RESPIRATORY NOTE: Received pt. on 840 vent. Vent settings are: A/C rate of 18, Vt 500, FI02 35%, PEEP +5. No respiratory distress noted, pt. Sp02 @ 100%. Ambu bag @ BS. Vent plugged on red outlet. Will continue to monitor pt.
--- NOTE | 2018-12-13 19:04 | NUR ---
HAND-OFF: Report given to Chapis Ivy RN.
--- NOTE | 2018-12-13 19:05 | NUR ---
NURSE NOTES: Received report from Ely Leone RN. Patient is awake in bed. Sinus rhythm on cardiac rehabilitation program director. No s/s of acute distress noted. Saturating well on trach-vent settings: Portex 7, AC 18, vT 500, FiO2 25%, PEEP 5. Colostomy and intact. Suprapubic urinary catheter intact and draining well. Bed locked in lowest position with side rails up x3. Call light left within reach. Will continue to monitor.
[2018-12-13 20:00] VITALS: BP 110/64
[2018-12-13] MEDS: Dyna-Hex 2% Top Sol 2oz TOPIC SCH (21:03)
[2018-12-14] VITALS (7 sets, daily range): BP systolic 100–116; BP diastolic 52–65
[2018-12-14] MEDS: Acetaminophen 650mg/20.3ml GT PRN (00:20)
[2018-12-14] MEDS: NovoLOG Insulin Flexpen SUBQ SCH ×6 (00:37→20:33)
[2018-12-14] MEDS: Aztreonam Inj 1 GM in D5W 55 ML IVPB SCH ×3 (05:36→21:30)
[2018-12-14 05:55] LABS: HEMOGLOBIN 7.1 G/DL (14.2-18.0); MEAN CORPUSCULAR VOLUME 97 FL (80-99); PLATELET COUNT 137 K/UL (150-450); RED BLOOD COUNT 2.26 M/UL (4.70-6.10); RED CELL DISTRIBUTION WIDTH 16.3 % (11.6-14.8); WHITE BLOOD COUNT 15.1 K/UL (4.8-10.8)
[2018-12-14 06:05] LABS: INR 1.1 (0.9-1.1)
[2018-12-14 06:14] LABS: ALANINE AMINOTRANSFERASE 27 U/L (12-78); ALBUMIN/GLOBULIN RATIO 0.2 (1.0-2.7); ALKALINE PHOSPHATASE 74 U/L (46-116); ANION GAP 12 mmol/L (5-15); ASPARTATE AMINO TRANSFERASE 26 U/L (15-37); BILIRUBIN,TOTAL 0.3 MG/DL (0.2-1.0); BLOOD UREA NITROGEN 20 mg/dL (7-18); CALCIUM 6.8 MG/DL (8.5-10.1); CARBON DIOXIDE 16 MMOL/L (21-32); CHLORIDE 116 MMOL/L (98-107); CREATININE 0.8 MG/DL (0.55-1.30); PHOSPHORUS 1.3 MG/DL (2.5-4.9); POTASSIUM 3.9 MMOL/L (3.5-5.1); SODIUM 144 MMOL/L (136-145)
--- NOTE | 2018-12-14 06:47 | NUR ---
RESPIRATORY NOTE: Received pt on trach cuff, Portex size 7.0, with current vent settings: AC 18-500ml-35% FiO2- peep of 5, pt is tolerating well the settings, saturates at 98%. Tachypneic RR 27 bpm, but no labor breathing or resp distress noted. Mitchel rhonchi breath sounds heard upon auscultation, sxn moderate amount of thick/thin/frothy white clear pham secretions without incidents. Alarms are set and audible, vent is plugged into the red outlet, ambu bag is at bedside. Will continue to monitor.
--- NOTE | 2018-12-14 07:15 | NUR ---
HAND-OFF: Report given to Marion Sotelo RN.
--- NOTE | 2018-12-14 07:20 | NUR ---
NURSE NOTES: Report received from Denia Ivy RN.Pt awake alert,mumbling words and talking even with trach tube on,connected to Vent ,on same settings tolerating well,noted no resp distress,no signs of pain or discomfort SSR on the monitor,GTF Glucerna 1.2 at 65ml/hr,no residual noted,colostomy bag in placed,supra pubic cath draining yellow urine,EDA PICC line intact with IVF D5W at 50 ml/hr,skin warm and dry SR up x2 HOB elevated,bed lock in lowest position ,will continue with plans of care.
[2018-12-14] MEDS: Pantoprazole Inj IVP SCH ×2 (08:57→20:11)
[2018-12-14] MEDS: Atenolol 25mg tab ORAL SCH ×2 (08:58→20:00)
[2018-12-14] MEDS: dilTIAZem HCl 30mg tab GT SCH ×2 (08:59→18:06)
[2018-12-14] MEDS: Heparin 5000 units/ml inj SUBQ SCH ×2 (09:00→20:10)
[2018-12-14] MEDS: Phospha 250 Neutral tab GT SCH ×3 (09:00→18:06)
--- NOTE | 2018-12-14 10:56 | Pulmonolgy Critical Care Note ---
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 Respiratory: monitor respiratory rate, adjust FIO2, CXR Cardiac: continue to monitor HR/BP Renal: F/U I&O, keep IV fluid, check electrolytes Infectious Disease: check cultures Gastrointestinal: continue feedings/current rate, hold feedings Endocrine: monitor blood sugar, check TSH, check HgA1C Hematologic: transfuse if hgb<8.5 Neurologic: PRN Ativan, PRN Morphine, keep patient comfortable Affect: PRN ativan Prophylaxis: Protonix Disposition: keep in ICU Notes Reviewed: cardio Discussed with: nurses, consultants, case workermanager strategic development - Objective Last 24 Hour Vital Signs Date Time Temp Pulse Resp B/P (MAP) Pulse Ox O2 Delivery O2 Flow Rate FiO2 12/14/18 08:59 90 114/65 12/14/18 08:59 90 12/14/18 08:58 90 114/65 12/14/18 08:45 95 31 35 12/14/18 08:00 98.8 90 28 114/65 (81) 99 12/14/18 06:47 86 27 35 12/14/18 05:20 77 28 35 12/14/18 04:00 35 12/14/18 04:00 98.7 71 25 100/52 (68) 97 12/14/18 04:00 Mechanical Ventilator 12/14/18 03:22 83 12/14/18 03:20 95 26 35 12/14/18 01:00 104 24 35 12/14/18 00:50 99.2 12/14/18 00:00 Mechanical Ventilator 12/14/18 00:00 101.4 95 31 110/60 (77) 99 12/13/18 23:23 97 12/13/18 22:28 100 26 35 12/13/18 21:26 99 26 35 12/13/18 21:03 97 110/64 12/13/18 20:00 Mechanical Ventilator 12/13/18 20:00 35 12/13/18 20:00 99.5 97 28 110/64 (79) 100 12/13/18 19:44 93 12/13/18 19:04 99 26 35 12/13/18 17:05 87 95/54 12/13/18 17:00 80 25 35 12/13/18 16:00 87 12/13/18 16:00 Mechanical Ventilator 12/13/18 16:00 35 12/13/18 16:00 97.9 87 22 95/54 (68) 100 12/13/18 15:30 85 28 35 12/13/18 13:32 90 28 35 12/13/18 12:00 93 12/13/18 12:00 Mechanical Ventilator 12/13/18 12:00 35 12/13/18 12:00 99.9 94 24 99/62 (74) 99 12/13/18 11:00 98 28 35 Status: sedated, somnolent Condition: critical HEENT: atraumatic Neck: full ROM Lungs: clear Heart: HR/BP stable Abdomen: soft, non-tender Extremities: no C/C/E, edema Decubiti: stage Micro: Microbiology Date/Time Source Procedure Growth Status 12/12/18 15:00 Blood Blood Culture - Preliminary Resulted 12/12/18 15:00 Blood Blood Culture - Preliminary NO GROWTH AFTER 24 HOURS Resulted 12/12/18 15:20 Sputum Gram Stain - Final Resulted 12/12/18 15:20 Sputum Culture - Preliminary Gram Negative Bacillus 1 Usual Respiratory Shelly Resulted Accucheck: 249 Critical Care - Subjective ROS Limited/Unobtainable: No Interval Events: received one unit or prbc temp of 102 yesterday Condition: critical, improving EKG Rhythm: Sinus Rhythm FI02: 35 Vent Support Breath Rate: 18 Vent Support Mode: AC Vent Tidal Volume: 500 Sputum Amount: Small PEEP: 5.0 PIP: 32 Tube Feeding Amount: 65 I&O: Intake and Output 12/13/18 12/14/18 18:59 06:59 Intake Total 1910 ml 1040 ml Output Total 1400 ml 1500 ml Balance 510 ml -460 ml Intake Free Water 60 ml 30 ml IV Total 1210 ml 305 ml Tube Feeding 640 ml 455 ml Blood Product 250 ml Output Urine Total 600 ml 1000 ml Stool Total 800 ml 500 ml CXR: no change Labs: Laboratory Tests Test 12/14/18 05:30 White Blood Count 15.1 K/UL (4.8-10.8) H Red Blood Count 2.26 M/UL (4.70-6.10) L Hemoglobin 7.1 G/DL (14.2-18.0) L Hematocrit 22.0 % (42.0-52.0) L Mean Corpuscular Volume 97 FL (80-99) Mean Corpuscular Hemoglobin 31.6 PG (27.0-31.0) H Mean Corpuscular Hemoglobin Concent 32.4 G/DL (32.0-36.0) Red Cell Distribution Width 16.3 % (11.6-14.8) H Platelet Count 137 K/UL (150-450) L Mean Platelet Volume 9.5 FL (6.5-10.1) Neutrophils (%) (Auto) % (45.0-75.0) Lymphocytes (%) (Auto) % (20.0-45.0) Monocytes (%) (Auto) % (1.0-10.0) Eosinophils (%) (Auto) % (0.0-3.0) Basophils (%) (Auto) % (0.0-2.0) Differential Total Cells Counted 100 Neutrophils % (Manual) 83 % (45-75) H Lymphocytes % (Manual) 14 % (20-45) L Monocytes % (Manual) 3 % (1-10) Eosinophils % (Manual) 0 % (0-3) Basophils % (Manual) 0 % (0-2) Band Neutrophils 0 % (0-8) Platelet Estimate Decreased L Platelet Morphology Normal Anisocytosis 1+ Prothrombin Time 11.4 SEC (9.30-11.50) Prothromb Time International Ratio 1.1 (0.9-1.1) Activated Partial Thromboplast Time 34 SEC (23-33) H Sodium Level 144 MMOL/L (136-145) Potassium Level 3.9 MMOL/L (3.5-5.1) Chloride Level 116 MMOL/L (98-107) H Carbon Dioxide Level 16 MMOL/L (21-32) L Anion Gap 12 mmol/L (5-15) Blood Urea Nitrogen 20 mg/dL (7-18) H Creatinine 0.8 MG/DL (0.55-1.30) Estimat Glomerular Filtration Rate mL/min (>60) Glucose Level 275 MG/DL (74-106) #H Calcium Level 6.8 MG/DL (8.5-10.1) L Phosphorus Level 1.3 MG/DL (2.5-4.9) L Magnesium Level 1.3 MG/DL (1.8-2.4) L Total Bilirubin 0.3 MG/DL (0.2-1.0) Aspartate Amino Transf (AST/SGOT) 26 U/L (15-37) Alanine Aminotransferase (ALT/SGPT) 27 U/L (12-78) Alkaline Phosphatase 74 U/L (46-116) Total Protein 5.3 G/DL (6.4-8.2) L Albumin 1.0 G/DL (3.4-5.0) L Globulin 4.3 g/dL Albumin/Globulin Ratio 0.2 (1.0-2.7) L Abhishek Guerra MD Dec 14, 2018 10:56
[2018-12-14] MEDS ORDERED: Potassium Phosphate 30 MM in NS 275 ML IV ONE (11:00)
--- NOTE | 2018-12-14 12:00 | NUR ---
NURSE NOTES: Unable to give blood transfusion pt with low grade fever,T99.9,will continue to monitor pt.
--- NOTE | 2018-12-14 13:25 | Infectious Diseases Prog Note ---
Assessment/Plan Assessment/Plan Assessment: Severe Sepsis 2ry to GNR -CXR: Probable small left pleural effusion, also evident on prior study 2017. Bilateral interstitial disease, unchanged, suspect chronic. Correlate with clinical findings GNR bacteremia, likely from UTI -CT abd/p: Findings consistent with uncomplicated nonnecrotizing acute pancreatitis. No evidence of associated peripancreatic abscess Surgical changes as described, including right lower quadrant ileostomy, subtotal colectomy with Haroldo procedure. Wall thickening of the Haroldo pouch. This could indicate inflammation. However, this is also present on both of the prior 2 exams and may be baseline for this patien. Evidence of mild anasarca, with edema of the subcutaneous fat. This is a new finding. Chronic appearing decubitus changes of the bilateral ischia. Correlate with clinical findings. Complete left lower lobe consolidation. This is similar to both of the prior CTs, andis likely a chronic finding. There is progressive chronic interstitial fibrotic change involving the right middle lobe. There is also right lower lobe granulomatous calcification, Extensive pulmonary parenchymal opacities bilaterally may reflect acute inflammation/infection, edema, progressive chronic scarring, orcombination of the above. These are considerably more extensive than on the prior study -u/a 10-15, nit neg, luek +3; ucx 50-60k Enterococcus (Vanco resist; S AMp), 40-50 K Proteus -12/07 Bcx 3/4 Proteus; 12/08 Bcx 1/4 Proteus (S Aztreonam; R Cipro, levo; I Imipenem); 12/12 BCx p Acute pancreatitis -lipase ~1k Fever - recurrent- in the setting of bacteremia and pancreaitis Leukocytosis , increased-in the setting of bacteremia, UTI and acute pancreatitis Gram positive bacteremia- ?contaminant vs real -12/12 Bcx 1/4 GPC clusters Hyponatremia, improving MAULIK, improving dysphagia s/p peg COPD GBS quadriplegia chronic resp failure s/p trach HTN CVA, nonverbal anemia SNF resident Plan: -Continue Aztreonam #6/14 for Proteus UTi and bacteremia; and IV Daptomycin #5 for enterococcus UTI and for GPC bacteremia -Bcx x2 - f/u Sp cx -Monitor CBC/CMP, temperatures -PEG/Trach care -Aspiration precautions -management of acute pancreatitis per primary team. Will continue to follow along with you. Subjective Allergies: Coded Allergies: PENICILLINS (Unverified Allergy, Unknown, 02/26/16) POLYMYXIN B (Unverified Allergy, Unknown, 02/26/16) VANCOMYCIN (Unverified Allergy, Unknown, 02/26/16) Subjective Tm 101.4 WBC remains 15 repeat Bcx GPC Objective Vital Signs Last 24 Hour Vital Signs Date Time Temp Pulse Resp B/P (MAP) Pulse Ox O2 Delivery O2 Flow Rate FiO2 12/14/18 12:00 99.9 98 32 116/63 (80) 99 12/14/18 10:50 97 29 35 12/14/18 08:59 90 114/65 12/14/18 08:59 90 12/14/18 08:58 90 114/65 12/14/18 08:45 95 31 35 12/14/18 08:00 89 12/14/18 08:00 98.8 90 28 114/65 (81) 99 12/14/18 06:47 86 27 35 12/14/18 05:20 77 28 35 12/14/18 04:00 35 12/14/18 04:00 98.7 71 25 100/52 (68) 97 12/14/18 04:00 Mechanical Ventilator 12/14/18 03:22 83 12/14/18 03:20 95 26 35 12/14/18 01:00 104 24 35 12/14/18 00:50 99.2 12/14/18 00:00 Mechanical Ventilator 12/14/18 00:00 101.4 95 31 110/60 (77) 99 12/13/18 23:23 97 12/13/18 22:28 100 26 35 12/13/18 21:26 99 26 35 12/13/18 21:03 97 110/64 12/13/18 20:00 Mechanical Ventilator 12/13/18 20:00 35 12/13/18 20:00 99.5 97 28 110/64 (79) 100 12/13/18 19:44 93 12/13/18 19:04 99 26 35 12/13/18 17:05 87 95/54 12/13/18 17:00 80 25 35 12/13/18 16:00 87 12/13/18 16:00 Mechanical Ventilator 12/13/18 16:00 35 12/13/18 16:00 97.9 87 22 95/54 (68) 100 12/13/18 15:30 85 28 35 12/13/18 13:32 90 28 35 Height (Feet): 5 Height (Inches): 8.00 Weight (Pounds): 140 Objective HEENT: Eyes were normal. ENT, mucous membranes were not dehydrated. NECK: Supple. There was no goiter. No mass. No lymphadenopathy. There was no JVD. No bruits. Carotid upstroke was 2+. LUNGS: Clear. HEART: PMI was in the fifth left intercostal space in midclavicular line. There was normal S1 and normal S2. There was no murmur. No arrhythmia. No S3. No S4. No pericardial rub. ABDOMEN: Soft and nontender without organomegaly. There were no masses palpable. Normal bowel sounds without bruits. There was no guarding. No rebound tenderness. No ascites. No hernia. No CVA tenderness. EXTREMITIES: No cyanosis, no clubbing, and no edema. Extremities were warm. Microbiology Date/Time Source Procedure Growth Status 12/12/18 15:00 Blood Blood Culture - Preliminary Resulted 12/12/18 15:00 Blood Blood Culture - Preliminary NO GROWTH AFTER 24 HOURS Resulted 12/12/18 15:20 Sputum Gram Stain - Final Resulted 12/12/18 15:20 Sputum Culture - Preliminary Gram Negative Bacillus 1 Usual Respiratory Shelly Resulted Laboratory Tests Test 12/14/18 05:30 White Blood Count 15.1 K/UL (4.8-10.8) H Red Blood Count 2.26 M/UL (4.70-6.10) L Hemoglobin 7.1 G/DL (14.2-18.0) L Hematocrit 22.0 % (42.0-52.0) L Mean Corpuscular Volume 97 FL (80-99) Mean Corpuscular Hemoglobin 31.6 PG (27.0-31.0) H Mean Corpuscular Hemoglobin Concent 32.4 G/DL (32.0-36.0) Red Cell Distribution Width 16.3 % (11.6-14.8) H Platelet Count 137 K/UL (150-450) L Mean Platelet Volume 9.5 FL (6.5-10.1) Neutrophils (%) (Auto) % (45.0-75.0) Lymphocytes (%) (Auto) % (20.0-45.0) Monocytes (%) (Auto) % (1.0-10.0) Eosinophils (%) (Auto) % (0.0-3.0) Basophils (%) (Auto) % (0.0-2.0) Differential Total Cells Counted 100 Neutrophils % (Manual) 83 % (45-75) H Lymphocytes % (Manual) 14 % (20-45) L Monocytes % (Manual) 3 % (1-10) Eosinophils % (Manual) 0 % (0-3) Basophils % (Manual) 0 % (0-2) Band Neutrophils 0 % (0-8) Platelet Estimate Decreased L Platelet Morphology Normal Anisocytosis 1+ Prothrombin Time 11.4 SEC (9.30-11.50) Prothromb Time International Ratio 1.1 (0.9-1.1) Activated Partial Thromboplast Time 34 SEC (23-33) H Sodium Level 144 MMOL/L (136-145) Potassium Level 3.9 MMOL/L (3.5-5.1) Chloride Level 116 MMOL/L (98-107) H Carbon Dioxide Level 16 MMOL/L (21-32) L Anion Gap 12 mmol/L (5-15) Blood Urea Nitrogen 20 mg/dL (7-18) H Creatinine 0.8 MG/DL (0.55-1.30) Estimat Glomerular Filtration Rate mL/min (>60) Glucose Level 275 MG/DL (74-106) #H Calcium Level 6.8 MG/DL (8.5-10.1) L Phosphorus Level 1.3 MG/DL (2.5-4.9) L Magnesium Level 1.3 MG/DL (1.8-2.4) L Total Bilirubin 0.3 MG/DL (0.2-1.0) Aspartate Amino Transf (AST/SGOT) 26 U/L (15-37) Alanine Aminotransferase (ALT/SGPT) 27 U/L (12-78) Alkaline Phosphatase 74 U/L (46-116) Total Protein 5.3 G/DL (6.4-8.2) L Albumin 1.0 G/DL (3.4-5.0) L Globulin 4.3 g/dL Albumin/Globulin Ratio 0.2 (1.0-2.7) L Current Medications Medications (Trade) Dose Ordered Sig/Fransisco Route PRN Reason Start Time Stop Time Status Last Admin Dose Admin Acetaminophen (Tylenol) 650 mg Q4H PRN GT For Pain 12/07/18 17:00 01/06/19 16:59 12/14/18 00:20 Acetaminophen (Tylenol) 650 mg Q4H PRN GT fever 12/10/18 09:45 01/06/19 16:59 Albuterol/ Ipratropium (Albuterol/ Ipratropium) 3 ml Q4H PRN HHN Shortness of Breath 12/10/18 09:25 12/15/18 09:24 Atenolol (Tenormin) 25 mg Q12HR ORAL 12/12/18 21:00 01/11/19 20:59 12/14/18 08:58 Aztreonam 1 gm/ Dextrose 55 ml @ 110 mls/hr Q8HR IVPB 12/09/18 15:00 12/16/18 14:59 12/14/18 05:36 Barium Sulfate (Readi-Cat 2) 450 ml NOW PRN ORAL Radiology Procedure 12/12/18 13:45 12/14/18 13:42 Chlorhexidine Gluconate (Sandra-Hex 2%) 1 applic DAILY@2000 TOPIC 12/10/18 20:00 01/09/19 19:59 12/13/18 21:03 Daptomycin 250 mg/ Sodium Chloride 55 ml @ 100 mls/hr Q24H IV 12/13/18 18:30 12/20/18 18:29 12/13/18 18:41 Dextrose 1,000 ml @ 50 mls/hr Q20H IV 12/11/18 13:00 01/10/19 12:59 12/14/18 00:38 Dextrose (Dextrose 50%) 25 ml Q30M PRN IV Hypoglycemia 12/10/18 14:00 01/09/19 13:59 Dextrose (Dextrose 50%) 50 ml Q30M PRN IV Hypoglycemia 12/10/18 14:00 01/09/19 13:59 Digoxin (Lanoxin) 0.25 mg DAILY GT 12/12/18 09:00 01/10/19 08:59 12/14/18 08:59 Diltiazem HCl (Cardizem) 10 mg BIDPRN PRN IVP FOR HR >140 12/12/18 08:45 01/11/19 08:44 Diltiazem HCl (Cardizem) 30 mg BID GT 12/11/18 18:00 01/10/19 17:59 12/14/18 08:59 Heparin Sodium (Porcine) (Heparin 5000 units/ml) 5,000 units EVERY 12 HOURS SUBQ 12/07/18 21:00 01/06/19 20:59 12/12/18 20:50 Insulin Aspart (NovoLOG) EVERY 4 HOURS SUBQ 12/12/18 05:00 01/09/19 04:59 12/14/18 13:04 Iopamidol (Isovue-300 100ml) 100 ml NOW PRN INJ Radiology Procedure 12/12/18 13:45 12/14/18 13:44 Magnesium Sulfate 100 ml @ 100 mls/hr Q1H IVPB 12/14/18 10:30 12/14/18 14:29 12/14/18 13:06 Morphine Sulfate (Morphine Sulfate) 2 mg Q4H PRN IVP Moderate Pain (Pain Scale 4-6) 12/07/18 17:00 12/14/18 16:59 12/09/18 21:19 Nitroglycerin (Ntg) 0.4 mg Q5M PRN SL Prn Chest Pain 12/07/18 17:00 01/06/19 16:59 Ondansetron HCl (Zofran) 4 mg Q6H PRN IVP Nausea & Vomiting 12/07/18 17:00 01/06/19 16:59 Pantoprazole (Protonix) 40 mg EVERY 12 HOURS IVP 12/09/18 21:00 01/08/19 20:59 12/14/18 08:57 Phosphorus (Phospha 250 Neutral) 500 mg THREE TIMES A DAY GT 12/10/18 09:00 01/09/19 08:59 12/14/18 13:06 Polyethylene Glycol (Miralax) 17 gm DAILYPRN PRN GT Constipation 12/10/18 09:45 01/06/19 16:59 Potassium Phosphate 30 mm/ Sodium Chloride 285 ml @ 47.5 mls/hr ONCE ONCE IV 12/14/18 11:00 12/14/18 16:59 12/14/18 11:49 Temazepam (Restoril) 15 mg HSPRN PRN GT Insomnia 12/10/18 09:45 12/14/18 16:59 Aminah Champagne M.D. Dec 14, 2018 13:25
--- NOTE | 2018-12-14 13:50 | Surgery Progress Note ---
Surgery Progress Note Subjective Additional Comments pancreatitis; elevated britany/lip. low grade fever. leukocytosis. bacteremia on IV Abx. exam unchanged. Objective Last 24 Hour Vital Signs Date Time Temp Pulse Resp B/P (MAP) Pulse Ox O2 Delivery O2 Flow Rate FiO2 12/14/18 12:55 89 30 35 12/14/18 12:00 94 12/14/18 12:00 99.9 98 32 116/63 (80) 99 12/14/18 12:00 Mechanical Ventilator 12/14/18 12:00 35 12/14/18 10:50 97 29 35 12/14/18 08:59 90 114/65 12/14/18 08:59 90 12/14/18 08:58 90 114/65 12/14/18 08:45 95 31 35 12/14/18 08:00 Mechanical Ventilator 12/14/18 08:00 89 12/14/18 08:00 98.8 90 28 114/65 (81) 99 12/14/18 08:00 35 12/14/18 06:47 86 27 35 12/14/18 05:20 77 28 35 12/14/18 04:00 35 12/14/18 04:00 98.7 71 25 100/52 (68) 97 12/14/18 04:00 Mechanical Ventilator 12/14/18 03:22 83 12/14/18 03:20 95 26 35 12/14/18 01:00 104 24 35 12/14/18 00:50 99.2 12/14/18 00:00 Mechanical Ventilator 12/14/18 00:00 101.4 95 31 110/60 (77) 99 12/13/18 23:23 97 12/13/18 22:28 100 26 35 12/13/18 21:26 99 26 35 12/13/18 21:03 97 110/64 12/13/18 20:00 Mechanical Ventilator 12/13/18 20:00 35 12/13/18 20:00 99.5 97 28 110/64 (79) 100 12/13/18 19:44 93 12/13/18 19:04 99 26 35 12/13/18 17:05 87 95/54 12/13/18 17:00 80 25 35 12/13/18 16:00 87 12/13/18 16:00 Mechanical Ventilator 12/13/18 16:00 35 12/13/18 16:00 97.9 87 22 95/54 (68) 100 12/13/18 15:30 85 28 35 I&O Intake and Output 12/13/18 12/14/18 18:59 06:59 Intake Total 1910 ml 1040 ml Output Total 1400 ml 1500 ml Balance 510 ml -460 ml Intake Free Water 60 ml 30 ml IV Total 1210 ml 305 ml Tube Feeding 640 ml 455 ml Blood Product 250 ml Output Urine Total 600 ml 1000 ml Stool Total 800 ml 500 ml Dressing: saturated Wound: other Drains: other Cardiovascular: RSR Respiratory: decreased breath sounds Abdomen: soft, non-tender, present bowel sounds, non-distended Extremities: other Laboratory Tests Test 12/14/18 05:30 White Blood Count 15.1 K/UL (4.8-10.8) H Red Blood Count 2.26 M/UL (4.70-6.10) L Hemoglobin 7.1 G/DL (14.2-18.0) L Hematocrit 22.0 % (42.0-52.0) L Mean Corpuscular Volume 97 FL (80-99) Mean Corpuscular Hemoglobin 31.6 PG (27.0-31.0) H Mean Corpuscular Hemoglobin Concent 32.4 G/DL (32.0-36.0) Red Cell Distribution Width 16.3 % (11.6-14.8) H Platelet Count 137 K/UL (150-450) L Mean Platelet Volume 9.5 FL (6.5-10.1) Neutrophils (%) (Auto) % (45.0-75.0) Lymphocytes (%) (Auto) % (20.0-45.0) Monocytes (%) (Auto) % (1.0-10.0) Eosinophils (%) (Auto) % (0.0-3.0) Basophils (%) (Auto) % (0.0-2.0) Differential Total Cells Counted 100 Neutrophils % (Manual) 83 % (45-75) H Lymphocytes % (Manual) 14 % (20-45) L Monocytes % (Manual) 3 % (1-10) Eosinophils % (Manual) 0 % (0-3) Basophils % (Manual) 0 % (0-2) Band Neutrophils 0 % (0-8) Platelet Estimate Decreased L Platelet Morphology Normal Anisocytosis 1+ Prothrombin Time 11.4 SEC (9.30-11.50) Prothromb Time International Ratio 1.1 (0.9-1.1) Activated Partial Thromboplast Time 34 SEC (23-33) H Sodium Level 144 MMOL/L (136-145) Potassium Level 3.9 MMOL/L (3.5-5.1) Chloride Level 116 MMOL/L (98-107) H Carbon Dioxide Level 16 MMOL/L (21-32) L Anion Gap 12 mmol/L (5-15) Blood Urea Nitrogen 20 mg/dL (7-18) H Creatinine 0.8 MG/DL (0.55-1.30) Estimat Glomerular Filtration Rate mL/min (>60) Glucose Level 275 MG/DL (74-106) #H Calcium Level 6.8 MG/DL (8.5-10.1) L Phosphorus Level 1.3 MG/DL (2.5-4.9) L Magnesium Level 1.3 MG/DL (1.8-2.4) L Total Bilirubin 0.3 MG/DL (0.2-1.0) Aspartate Amino Transf (AST/SGOT) 26 U/L (15-37) Alanine Aminotransferase (ALT/SGPT) 27 U/L (12-78) Alkaline Phosphatase 74 U/L (46-116) Total Protein 5.3 G/DL (6.4-8.2) L Albumin 1.0 G/DL (3.4-5.0) L Globulin 4.3 g/dL Albumin/Globulin Ratio 0.2 (1.0-2.7) L Plan Problems: (1) Decubitus skin ulcer Assessment & Plan: Pt presented on admission with multiple pressure injuries and Skin erosion. Pt has trach and no evidence of skin breakdown noted under trach collar. Unstageable pressure injury noted to L earlobe. Stable dry brown eschar noted(L) 0.7cm x (W)0.5cm. Gross erythema with denudement and multiple scattered partial thickness wounds noted to buttocks and base of scrotum extending into both posterior upper thighs.Moderate amt sanguineous exudate noted upon removal of drsgs. 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 Moderate amt sanguineous exudate noted (L)3cm x (W)1cm x (D)7.4cm.Erythema periwound secondary to skin erosions. Partially opened DTPI L ischium .Base of wound purple,fluctuant with red borders.Open areas at base of this wound are beefy red in colour.Moderate amt sanguineous exudate noted.(L)7cm x (W)6.8cm. DTPI R ischium.Wound is fluctuant-purple in center with surrounding Maroon colour, and is partially opened with a small area of 5% that is necrotic.(L) 6.5cm x (W)5.5cm. Red skin erosion periwound. Partial thickness pressure injury L hip. Base of wound is moist -viable. Edges adherent and dry. Periwound without erythema or induration(L)1.2cm x (W)0.5cm. Elongate partial thickness wound posterior upper L thigh .Base of wound is moist -viable .Small amt sanguineous exudate noted. (+) maceration along borders. Erythema without induration or elevation in skin temp noted.(L)2cm x (W )9.4cm. DTPI noted to R heel .Base of injury is indurated and maroon in colour. Periwound is firm without erythema. (L)1.5cm x (W)1cm.R heel without evidence of skin breakdown. Tx.Plan: Cleanse Sacrum with Saline. Loosely pack with Hydrogel impregnated Kerlix. Apply Triad Paste periwound. Cover with ABD pad. Daily and prn. Cleanse R and L ischial wounds with Saline. Apply Moisture Barrier Paste.Cover with abd pads Daily and prn. Apply Moisture Barrier to skin erosions on buttocks,scrotum, and posterior aspects of both thighs.Cover with ABD pad daily and prn. Cleanse wound L hip with Saline. Apply Moisture Barrier paste .Cover with Optifoam drsg Daily and prn. Cleanse wound posterior upper L thigh with saline .Apply Hydrogel. Cover with Optifoam drsg Daily and prn. Apply Cavilon Skin Barrier to L earlobe daily. Please monitor. Apply Cavilon Skin Barrier to L heel. Cover with Optifoam drsg. Change every 7 days and prn. Apply Cavilon Skin Barrier to R heel. Cover with Optifoam drsg .Change every 7 days and prn. Air fluidized mattress. Reposition every 2hours or as tolerated. Off-load heels with pillow. (2) Acute and chronic respiratory failure Assessment & Plan: cont with breathing treatments trach stable trach site clean will change dressings daily (3) Acute pancreatitis Assessment & Plan: Findings consistent with uncomplicated nonnecrotizing acute pancreatitis. No evidence of associated peripancreatic abscess Surgical changes as described, including right lower quadrant ileostomy, subtotal colectomy with Haroldo procedure. Wall thickening of the Haroldo pouch. This could indicate inflammation. However, this is also present on both of the prior 2 exams and may be baseline for this patient Evidence of mild anasarca, with edema of the subcutaneous fat. This is a new finding Chronic appearing decubitus changes of the bilateral ischia. Correlate with clinical findings Complete left lower lobe consolidation. This is similar to both of the prior CTs , and is likely a chronic finding. There is progressive chronic interstitial fibrotic change involving the right middle lobe. There is also right lower lobe granulomatous calcification Extensive pulmonary parenchymal opacities bilaterally may reflect acute inflammation/infection, edema, progressive chronic scarring, or combination of the above. These are considerably more extensive than on the prior study Trace bilateral pleural fluid New finding of nonobstructive right renal collecting system calculs 4 mm calculus within the bladder lumen. This may represent a bladder calculus, a calculus and left ureteral orifice, or recently passed stone. If either of the latter, no evidence of resultant hydronephrosis or hydroureter Suprapubic catheter. This is a new finding since the 2016 exams. Interim removal of previously demonstrated Bledsoe catheter Gastrostomy Left renal cysts. Subcentimeter low-attenuation right renal lesions, too small to characterize, most likely benign simple cysts. No further follow-up necessary elevated amylase/lipase leukocytosis GPC Bacteremia transfused anemia -no acute surgical intervention planned -transfuse as per hematology -Abx as per ID -trend lip/britany - recent finding based on CT given patient cannot given history or participate in exam. CT with uncomplicated pancreatitis. okay for diet / feeds for now IV fluids Javier Ricardo Dec 14, 2018 13:50
--- NOTE | 2018-12-14 14:01 | Nephrology Progress Note ---
Assessment/Plan Problem List: (1) ATN (acute tubular necrosis) (2) Anemia (3) Feeding by G-tube (4) Acute and chronic respiratory failure (5) UTI (urinary tract infection) (6) Hyponatremia Assessment Patient have mainly Pre Renal Azotemia with possible underlying CKD- Low Na partly depletional, partly due to Hyperglycemia Other conditions as outlined: (1) Acute and chronic respiratory failure ([id number]) (2) Sepsis (3) Malnutrition and HypoAlbuminemia (4) UTI (urinary tract infection) (5) Anemia (6) Diabetes mellitus, type II (7) Colostomy care (8) Cerebral vascular disease (9) Decubitus ulcer of sacral region, stage 2 (10) Feeding by G-tube (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 Plan second unit PRBCs transfusion in process IV KCL , Mag , Phos as needed Hydrate- change IV to D5 now 50 cc / h up dose digoxin and tenormin K and Phos supplement as needed Keep electrolytes in check Keep BS and BP in check Subjective ROS Limited/Unobtainable: Yes Objective Objective Last 24 Hour Vital Signs Date Time Temp Pulse Resp B/P (MAP) Pulse Ox O2 Delivery O2 Flow Rate FiO2 12/14/18 12:55 89 30 35 12/14/18 12:00 94 12/14/18 12:00 99.9 98 32 116/63 (80) 99 12/14/18 12:00 Mechanical Ventilator 12/14/18 12:00 35 12/14/18 10:50 97 29 35 12/14/18 08:59 90 114/65 12/14/18 08:59 90 12/14/18 08:58 90 114/65 12/14/18 08:45 95 31 35 12/14/18 08:00 Mechanical Ventilator 12/14/18 08:00 89 12/14/18 08:00 98.8 90 28 114/65 (81) 99 12/14/18 08:00 35 12/14/18 06:47 86 27 35 12/14/18 05:20 77 28 35 12/14/18 04:00 35 12/14/18 04:00 98.7 71 25 100/52 (68) 97 12/14/18 04:00 Mechanical Ventilator 12/14/18 03:22 83 12/14/18 03:20 95 26 35 12/14/18 01:00 104 24 35 12/14/18 00:50 99.2 12/14/18 00:00 Mechanical Ventilator 12/14/18 00:00 101.4 95 31 110/60 (77) 99 12/13/18 23:23 97 12/13/18 22:28 100 26 35 12/13/18 21:26 99 26 35 12/13/18 21:03 97 110/64 12/13/18 20:00 Mechanical Ventilator 12/13/18 20:00 35 12/13/18 20:00 99.5 97 28 110/64 (79) 100 12/13/18 19:44 93 12/13/18 19:04 99 26 35 12/13/18 17:05 87 95/54 12/13/18 17:00 80 25 35 12/13/18 16:00 87 12/13/18 16:00 Mechanical Ventilator 12/13/18 16:00 35 12/13/18 16:00 97.9 87 22 95/54 (68) 100 12/13/18 15:30 85 28 35 Intake and Output 12/13/18 12/14/18 18:59 06:59 Intake Total 1910 ml 1040 ml Output Total 1400 ml 1500 ml Balance 510 ml -460 ml Intake Free Water 60 ml 30 ml IV Total 1210 ml 305 ml Tube Feeding 640 ml 455 ml Blood Product 250 ml Output Urine Total 600 ml 1000 ml Stool Total 800 ml 500 ml Laboratory Tests 12/14/18 05:30: White Blood Count 15.1H, Red Blood Count 2.26L, Hemoglobin 7.1L, Hematocrit 22.0L, Mean Corpuscular Volume 97, Mean Corpuscular Hemoglobin 31.6H, Mean Corpuscular Hemoglobin Concent 32.4, Red Cell Distribution Width 16.3H, Platelet Count 137L, Mean Platelet Volume 9.5, Neutrophils (%) (Auto) , Lymphocytes (%) (Auto) , Monocytes (%) (Auto) , Eosinophils (%) (Auto) , Basophils (%) (Auto) , Differential Total Cells Counted 100, Neutrophils % ( Manual) 83H, Lymphocytes % (Manual) 14L, Monocytes % (Manual) 3, Eosinophils % ( Manual) 0, Basophils % (Manual) 0, Band Neutrophils 0, Platelet Estimate DecreasedL, Platelet Morphology Normal, Anisocytosis 1+, Prothrombin Time 11.4, Prothromb Time International Ratio 1.1, Activated Partial Thromboplast Time 34H , Sodium Level 144, Potassium Level 3.9, Chloride Level 116H, Carbon Dioxide Level 16L, Anion Gap 12, Blood Urea Nitrogen 20H, Creatinine 0.8, Estimat Glomerular Filtration Rate , Glucose Level 275#H, Calcium Level 6.8L, Phosphorus Level 1.3L, Magnesium Level 1.3L, Total Bilirubin 0.3, Aspartate Amino Transf (AST/SGOT) 26, Alanine Aminotransferase (ALT/SGPT) 27, Alkaline Phosphatase 74, Total Protein 5.3L, Albumin 1.0L, Globulin 4.3, Albumin/ Globulin Ratio 0.2L Height (Feet): 5 Height (Inches): 8.00 Weight (Pounds): 140 Objective no change Migue Moreland MD Dec 14, 2018 14:01
--- NOTE | 2018-12-14 15:58 | General Progress Note ---
Assessment/Plan Assessment/Plan Assessment/Recs: # Leukocytosis/Elevated white blood cell count, unspecified likely related to underlying stress reaction, smoking, or underlying infection (especially if bandemia is noted) --> have reviewed peripheral smear and bandemia/neutrophilia noted --> continue antibiotics if they have been started by ID team --> monitor for resolution ---> WBC trend: 11-->16-->15 # Anemia of chronic disease due to underlying chronic medical issues, multifactorial --> Anemia workup has been reviewed, Ferritin [id number] --> No evidence of hemolysis is noted, peripheral smear has been reviewed. --> Hgb goal >7. Transfuse prn. --> Epogen or iron at this time is not particularly indicated --> Medications have been reviewed -->HGB trend: 7.8-->7.6-->6.2-->6.4->7.1 # Thrombocytopenia - potential causes multifactorial, evaluate liver and viral etiologies to begin, also could be related to underlying medications patient has received. --> Hep panel and HIV negative --> US abd to evaluate for cirrhosis and hsm reviewed --> Peripheral smear ordered to evaluate for blasts /schistocytes --> abx and other meds have been reviewed --> ok for ppx if plt >50k w/ either heparin or lovenox --> Transfuse if Plt < 20k and fever, or if Plt < 10k without fever # Severe prerenal azotemia, on jeanette saline at 150 mL/hr. #Hypouricemia, appreciate Pulmonary retail sales consultant # Severe Sepsis, CXR: Probable small left pleural effusion, also evident on prior study 11/22/2017. -->appreciate ID recs # [email or web address], likely from UTI The timing of this note does not necessarily reflect the time of the patient was seen. Greatly appreciate consultation! Subjective Allergies: Coded Allergies: PENICILLINS (Unverified Allergy, Unknown, 02/26/16) POLYMYXIN B (Unverified Allergy, Unknown, 02/26/16) VANCOMYCIN (Unverified Allergy, Unknown, 02/26/16) Subjective 12/11: seen by bedside, vent dependent, leukocytosis, 11, hgb 7, will transfuse, no events 12/12: awake, comfortable wbc trending up at 16, no events 12/13: hgb 6.4, receiving transfusion, , wbc remains elevated. no acute events 12/14: seen by bedside, awake, comfortable low grade fever, wbc remains elevated at 15, bacteremia on IV Abx, hgb 7.1, will transfuse as needed. Objective Last 24 Hour Vital Signs Date Time Temp Pulse Resp B/P (MAP) Pulse Ox O2 Delivery O2 Flow Rate FiO2 12/14/18 15:20 86 28 35 12/14/18 12:55 89 30 35 12/14/18 12:00 94 12/14/18 12:00 99.9 98 32 116/63 (80) 99 12/14/18 12:00 Mechanical Ventilator 12/14/18 12:00 35 12/14/18 10:50 97 29 35 12/14/18 08:59 90 114/65 12/14/18 08:59 90 12/14/18 08:58 90 114/65 12/14/18 08:45 95 31 35 12/14/18 08:00 Mechanical Ventilator 12/14/18 08:00 89 12/14/18 08:00 98.8 90 28 114/65 (81) 99 12/14/18 08:00 35 12/14/18 06:47 86 27 35 12/14/18 05:20 77 28 35 12/14/18 04:00 35 12/14/18 04:00 98.7 71 25 100/52 (68) 97 12/14/18 04:00 Mechanical Ventilator 12/14/18 03:22 83 12/14/18 03:20 95 26 35 12/14/18 01:00 104 24 35 12/14/18 00:50 99.2 12/14/18 00:00 Mechanical Ventilator 12/14/18 00:00 101.4 95 31 110/60 (77) 99 12/13/18 23:23 97 12/13/18 22:28 100 26 35 12/13/18 21:26 99 26 35 12/13/18 21:03 97 110/64 12/13/18 20:00 Mechanical Ventilator 12/13/18 20:00 35 12/13/18 20:00 99.5 97 28 110/64 (79) 100 12/13/18 19:44 93 12/13/18 19:04 99 26 35 12/13/18 17:05 87 95/54 12/13/18 17:00 80 25 35 12/13/18 16:00 87 12/13/18 16:00 Mechanical Ventilator 12/13/18 16:00 35 12/13/18 16:00 97.9 87 22 95/54 (68) 100 Intake and Output 12/13/18 12/14/18 18:59 06:59 Intake Total 1910 ml 1040 ml Output Total 1400 ml 1500 ml Balance 510 ml -460 ml Intake Free Water 60 ml 30 ml IV Total 1210 ml 305 ml Tube Feeding 640 ml 455 ml Blood Product 250 ml Output Urine Total 600 ml 1000 ml Stool Total 800 ml 500 ml Laboratory Tests 12/14/18 05:30: White Blood Count 15.1H, Red Blood Count 2.26L, Hemoglobin 7.1L, Hematocrit 22.0L, Mean Corpuscular Volume 97, Mean Corpuscular Hemoglobin 31.6H, Mean Corpuscular Hemoglobin Concent 32.4, Red Cell Distribution Width 16.3H, Platelet Count 137L, Mean Platelet Volume 9.5, Neutrophils (%) (Auto) , Lymphocytes (%) (Auto) , Monocytes (%) (Auto) , Eosinophils (%) (Auto) , Basophils (%) (Auto) , Differential Total Cells Counted 100, Neutrophils % ( Manual) 83H, Lymphocytes % (Manual) 14L, Monocytes % (Manual) 3, Eosinophils % ( Manual) 0, Basophils % (Manual) 0, Band Neutrophils 0, Platelet Estimate DecreasedL, Platelet Morphology Normal, Anisocytosis 1+, Prothrombin Time 11.4, Prothromb Time International Ratio 1.1, Activated Partial Thromboplast Time 34H , Sodium Level 144, Potassium Level 3.9, Chloride Level 116H, Carbon Dioxide Level 16L, Anion Gap 12, Blood Urea Nitrogen 20H, Creatinine 0.8, Estimat Glomerular Filtration Rate , Glucose Level 275#H, Calcium Level 6.8L, Phosphorus Level 1.3L, Magnesium Level 1.3L, Total Bilirubin 0.3, Aspartate Amino Transf (AST/SGOT) 26, Alanine Aminotransferase (ALT/SGPT) 27, Alkaline Phosphatase 74, Total Protein 5.3L, Albumin 1.0L, Globulin 4.3, Albumin/ Globulin Ratio 0.2L Height (Feet): 5 Height (Inches): 8.00 Weight (Pounds): 140 Objective Physical Exam HEENT: Eyes were normal. ENT, mucous membranes were not dehydrated. NECK: Supple. There was no goiter. No mass. No lymphadenopathy. There was no JVD. No bruits. Carotid upstroke was 2+. LUNGS: Clear. Vent++ HEART: PMI was in the fifth left intercostal space in midclavicular line. There was normal S1 and normal S2. There was no murmur. No arrhythmia. No S3. No S4. No pericardial rub. ABDOMEN: Soft and nontender without organomegaly. There were no masses palpable. Normal bowel sounds without bruits. There was no guarding. No rebound tenderness. No ascites. No hernia. No CVA tenderness. Liver span was 8 cm, mostly nontender. EXTREMITIES: No cyanosis, no clubbing, and no edema. Extremities were warm. Adarsh Kim MD Dec 14, 2018 15:58
[2018-12-14] MEDS: DAPTOmycin 250 MG in NS 55 ML IV SCH (16:50)
--- NOTE | 2018-12-14 18:45 | NUR ---
NURSE NOTES: Transfused 1 unit PRBC,V/S monitored,afebrile pt stable ,no blood transfusion reaction presented.
--- NOTE | 2018-12-14 19:20 | NUR ---
NURSE NOTES: Received report from Deepak RN, pt. in bed awake, A/O x's1-alert to name. Cardiac monitoring on, no signs or symptoms of acute cardiac or respiratory distress noted, bed in lowest position and call light within easy reach, bed alarm on, side rails up x's 3 and safety brakes engaged. pt. appears to be tolerating current vent settings well at AC18, TV 500, peep 5 and fio2 of 28%- no respiratory distress noted, G tube feeding running Glucerna 1.2 at 65cc/hr- no residual noted. Supra pubic catheter intact and draining to gravity. Colostomy Rt. side abdominal area intact and draining to gravity, SUZIE PICC running blood transfusion at 125cc/hr- IV intact and patent-To resume D5W @50cc/hr- once blood is complete. Safety measures continued, will continue with plan of care.
--- NOTE | 2018-12-14 19:25 | NUR ---
HAND-OFF: Report given to Le SCHILLING.:
[2018-12-14] MEDS: Dyna-Hex 2% Top Sol 2oz TOPIC SCH (20:08)
--- NOTE | 2018-12-14 20:39 | Cardiology Progress Note ---
Assessment/Plan Assessment/Plan 1. Supraventricular tachycardia. recurrent 12/09 and 12/10 2. Renal insufficiency. 3. Hyponatremia. 4. 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 6. History of bowel resection. 7. History of CVA. 8. Chronic tracheostomy. 9. Diabetes mellitus. 10 pancreatitis 11. anemai bp borderline cortisol was normal on low dose Cardizem via gtube and dig (will decrease bb gradully ) dig level 0.7 heart rate much imporved so far Subjective ROS Limited/Unobtainable: Yes Subjective on the vent Objective Last 24 Hour Vital Signs Date Time Temp Pulse Resp B/P (MAP) Pulse Ox O2 Delivery O2 Flow Rate FiO2 12/14/18 20:00 70 101/60 12/14/18 18:52 103 30 35 12/14/18 18:06 86 103/65 12/14/18 17:12 90 25 35 12/14/18 16:00 97.7 109 24 103/65 (78) 95 12/14/18 16:00 35 12/14/18 16:00 Mechanical Ventilator 12/14/18 15:47 85 12/14/18 15:20 86 28 35 12/14/18 12:55 89 30 35 12/14/18 12:00 94 12/14/18 12:00 99.9 98 32 116/63 (80) 99 12/14/18 12:00 Mechanical Ventilator 12/14/18 12:00 35 12/14/18 10:50 97 29 35 12/14/18 08:59 90 114/65 12/14/18 08:59 90 12/14/18 08:58 90 114/65 12/14/18 08:45 95 31 35 12/14/18 08:00 Mechanical Ventilator 12/14/18 08:00 89 12/14/18 08:00 98.8 90 28 114/65 (81) 99 12/14/18 08:00 35 12/14/18 06:47 86 27 35 12/14/18 05:20 77 28 35 12/14/18 04:00 35 12/14/18 04:00 98.7 71 25 100/52 (68) 97 12/14/18 04:00 Mechanical Ventilator 12/14/18 03:22 83 12/14/18 03:20 95 26 35 12/14/18 01:00 104 24 35 12/14/18 00:50 99.2 12/14/18 00:00 Mechanical Ventilator 12/14/18 00:00 101.4 95 31 110/60 (77) 99 12/13/18 23:23 97 12/13/18 22:28 100 26 35 12/13/18 21:26 99 26 35 12/13/18 21:03 97 110/64 General Appearance: no apparent distress, on vent, patient on isolation Cardiovascular: normal rate Respiratory/Chest: rhonchi - bilaterally Abdomen: non tender, soft Extremities: no swelling Intake and Output 12/13/18 12/14/18 19:00 07:00 Intake Total 2230 ml 890 ml Output Total 1400 ml 1500 ml Balance 830 ml -610 ml Intake Free Water 60 ml 130 ml IV Total 1260 ml 305 ml Tube Feeding 660 ml 455 ml Blood Product 250 ml Output Urine Total 600 ml 1000 ml Stool Total 800 ml 500 ml Laboratory Tests Test 12/14/18 05:30 White Blood Count 15.1 K/UL (4.8-10.8) H Red Blood Count 2.26 M/UL (4.70-6.10) L Hemoglobin 7.1 G/DL (14.2-18.0) L Hematocrit 22.0 % (42.0-52.0) L Mean Corpuscular Volume 97 FL (80-99) Mean Corpuscular Hemoglobin 31.6 PG (27.0-31.0) H Mean Corpuscular Hemoglobin Concent 32.4 G/DL (32.0-36.0) Red Cell Distribution Width 16.3 % (11.6-14.8) H Platelet Count 137 K/UL (150-450) L Mean Platelet Volume 9.5 FL (6.5-10.1) Neutrophils (%) (Auto) % (45.0-75.0) Lymphocytes (%) (Auto) % (20.0-45.0) Monocytes (%) (Auto) % (1.0-10.0) Eosinophils (%) (Auto) % (0.0-3.0) Basophils (%) (Auto) % (0.0-2.0) Differential Total Cells Counted 100 Neutrophils % (Manual) 83 % (45-75) H Lymphocytes % (Manual) 14 % (20-45) L Monocytes % (Manual) 3 % (1-10) Eosinophils % (Manual) 0 % (0-3) Basophils % (Manual) 0 % (0-2) Band Neutrophils 0 % (0-8) Platelet Estimate Decreased L Platelet Morphology Normal Anisocytosis 1+ Prothrombin Time 11.4 SEC (9.30-11.50) Prothromb Time International Ratio 1.1 (0.9-1.1) Activated Partial Thromboplast Time 34 SEC (23-33) H Sodium Level 144 MMOL/L (136-145) Potassium Level 3.9 MMOL/L (3.5-5.1) Chloride Level 116 MMOL/L (98-107) H Carbon Dioxide Level 16 MMOL/L (21-32) L Anion Gap 12 mmol/L (5-15) Blood Urea Nitrogen 20 mg/dL (7-18) H Creatinine 0.8 MG/DL (0.55-1.30) Estimat Glomerular Filtration Rate mL/min (>60) Glucose Level 275 MG/DL (74-106) #H Calcium Level 6.8 MG/DL (8.5-10.1) L Phosphorus Level 1.3 MG/DL (2.5-4.9) L Magnesium Level 1.3 MG/DL (1.8-2.4) L Total Bilirubin 0.3 MG/DL (0.2-1.0) Aspartate Amino Transf (AST/SGOT) 26 U/L (15-37) Alanine Aminotransferase (ALT/SGPT) 27 U/L (12-78) Alkaline Phosphatase 74 U/L (46-116) Total Protein 5.3 G/DL (6.4-8.2) L Albumin 1.0 G/DL (3.4-5.0) L Globulin 4.3 g/dL Albumin/Globulin Ratio 0.2 (1.0-2.7) L Microbiology Date/Time Source Procedure Growth Status 12/12/18 15:00 Blood Blood Culture - Preliminary Resulted 12/12/18 15:00 Blood Blood Culture - Preliminary NO GROWTH AFTER 24 HOURS Resulted 12/12/18 15:20 Sputum Gram Stain - Final Resulted 12/12/18 15:20 Sputum Culture - Preliminary Gram Negative Bacillus 1 Usual Respiratory Shelly Resulted Donny Kelley MD Dec 14, 2018 20:39
--- NOTE | 2018-12-14 21:45 | NUR ---
NURSE NOTES: Blood transfusion complete- VS stable- pt. appears to be doing fine and no signs or symptoms of acute distress noted. Will continue to monitor pt. and with plan of care.
[2018-12-15] VITALS: BP 119/67
[2018-12-15] MEDS: NovoLOG Insulin Flexpen SUBQ SCH ×6 (00:44→21:25)
[2018-12-15 04:00] VITALS: BP 115/62
[2018-12-15] MEDS: Aztreonam Inj 1 GM in D5W 55 ML IVPB SCH ×3 (05:01→21:49)
[2018-12-15] MEDS: Acetaminophen 650mg/20.3ml GT PRN ×2 (05:27→18:57)
[2018-12-15 06:12] LABS: HEMATOCRIT 26.4 % (42.0-52.0); HEMOGLOBIN 8.7 G/DL (14.2-18.0); MEAN CORPUSCULAR VOLUME 94 FL (80-99); PLATELET COUNT 139 K/UL (150-450); RED BLOOD COUNT 2.81 M/UL (4.70-6.10); RED CELL DISTRIBUTION WIDTH 16.4 % (11.6-14.8); WHITE BLOOD COUNT 15.3 K/UL (4.8-10.8)
--- NOTE | 2018-12-15 06:33 | NUR ---
RESPIRATORY NOTE: Received pt on ordered vent settings. Pt tracheostomy tube is patent and secured. No resp distress noted. Suctioned pt prn. Vent alarms are on and audible. Vent is plugged into red outlet. Will monitor pt progress.
[2018-12-15 06:46] LABS: ALANINE AMINOTRANSFERASE 25 U/L (12-78); ALBUMIN 1.2 G/DL (3.4-5.0); ALBUMIN/GLOBULIN RATIO 0.2 (1.0-2.7); ALKALINE PHOSPHATASE 122 U/L (46-116); ANION GAP 11 mmol/L (5-15); ASPARTATE AMINO TRANSFERASE 20 U/L (15-37); BILIRUBIN,TOTAL 0.3 MG/DL (0.2-1.0); BLOOD UREA NITROGEN 23 mg/dL (7-18); CALCIUM 7.7 MG/DL (8.5-10.1); CARBON DIOXIDE 17 MMOL/L (21-32); CHLORIDE 115 MMOL/L (98-107); CREATININE 0.9 MG/DL (0.55-1.30); PHOSPHORUS 1.8 MG/DL (2.5-4.9); POTASSIUM 5.3 MMOL/L (3.5-5.1); SODIUM 143 MMOL/L (136-145)
--- NOTE | 2018-12-15 07:08 | NUR ---
HAND-OFF: Report given to Victor M RN,pt. remains stable and no signs of distress noted- aware to f/u w/ doctor regarding abnormal labs.
--- NOTE | 2018-12-15 07:09 | NUR ---
NURSE NOTES: Received patient from SHAKIR Hernandez. Patient in bed. Trach to vent dependent. In no respiratory distress. cafeteria monitor in placed. Tolerating feeding via Gtube. EDA PICC. Bed in lowest position locked with side rails up. Will continue to follow plan of care.
[2018-12-15 08:00] VITALS: BP 105/64
[2018-12-15] MEDS: Phospha 250 Neutral tab GT SCH ×3 (08:36→17:05)
[2018-12-15] MEDS: dilTIAZem HCl 30mg tab GT SCH ×2 (08:36→17:05)
[2018-12-15] MEDS: Pantoprazole Inj IVP SCH ×2 (08:37→21:23)
[2018-12-15] MEDS: Heparin 5000 units/ml inj SUBQ SCH ×2 (08:38→21:24)
[2018-12-15] MEDS: Atenolol 25mg tab ORAL SCH ×2 (08:39→21:23)
--- NOTE | 2018-12-15 09:33 | Cardiology Report ---
APPROVED REPORT EXAM: Two-dimensional and M-mode echocardiogram with Doppler and color Doppler. INDICATION SUPRAVENTRIC TACHYCARDIA M-Mode DIMENSIONS IVSd0.9 (0.7-1.1cm)Left Atrium (MM)3.3 (1.6-4.0cm) LVDd5.7 (3.5-5.6cm)Aortic Root3.8 (2.0-3.7cm) PWd1.1 (0.7-1.1cm)Aortic Cusp Exc.2.2 (1.5-2.0cm) IVSs1.2 cm LVDs3.8 (2.5-4.0cm) PWs1.3 cm Technically difficult study due to pt's ventilator . Normal left ventricular chamber size, systolic function and wall motion to extent visualized. Left ventricular ejection fraction estimated to be 60-65 %. No evidence of left ventricular hypertrophy . Anterior Echo-free space, may be due to pericardial fat or effusion. All other cardiac chamber sizes are within normal limits. Focal aortic valve sclerosis with adequate cusp excursion. Thickened mitral valve leaflets with normal excursion. Mitral annulus and aortic root calcification. Pulmonic valve not well visualized. Normal tricuspid valve structure. Subcostal views are not obtained due to surgery site . A color flow and spectral Doppler study was performed and revealed: No aortic regurgitation. Mild mitral regurgitation. Normal left ventricular diastolic function . Trace tricuspid regurgitation. Tricuspid systolic velocities suggests peak right ventricular systolic pressure of 19 mmHg.
--- NOTE | 2018-12-15 10:01 | Pulmonolgy Critical Care Note ---
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 Respiratory: adjust tidal volume, monitor respiratory rate, adjust FIO2 Cardiac: continue to monitor HR/BP Renal: F/U I&O, check electrolytes Infectious Disease: check cultures, continue antibiotics Gastrointestinal: continue feedings/current rate, hold feedings Endocrine: monitor blood sugar, continue sliding scale insulin Hematologic: monitor H/H, transfuse if hgb<8.5 Neurologic: PRN Morphine, keep patient comfortable Affect: PRN ativan Time Spent (Minutes): 40 Notes 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, 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 with: nurses, case management directorsports centre manager - Objective Last 24 Hour Vital Signs Date Time Temp Pulse Resp B/P (MAP) Pulse Ox O2 Delivery O2 Flow Rate FiO2 12/15/18 08:44 94 31 35 12/15/18 08:39 87 105/64 12/15/18 08:37 87 12/15/18 08:36 87 105/64 12/15/18 08:00 99.1 87 26 105/64 (78) 99 12/15/18 06:33 91 28 35 12/15/18 05:57 99.1 12/15/18 05:57 99.1 12/15/18 05:08 96 30 35 12/15/18 04:00 101.0 105 27 115/62 (79) 98 12/15/18 04:00 91 12/15/18 04:00 35 12/15/18 04:00 Mechanical Ventilator 12/15/18 03:00 99 31 35 12/15/18 01:37 106 29 35 12/15/18 00:00 Mechanical Ventilator 12/15/18 00:00 103 12/15/18 00:00 98.7 99 25 119/67 (84) 99 12/14/18 22:58 101 32 35 12/14/18 21:45 98.4 97 24 108/64 (79) 97 12/14/18 21:23 98 35 35 12/14/18 20:00 107 12/14/18 20:00 35 12/14/18 20:00 Mechanical Ventilator 12/14/18 20:00 70 101/60 12/14/18 20:00 98.5 95 26 101/61 (74) 100 12/14/18 18:52 103 30 35 12/14/18 18:06 86 103/65 12/14/18 17:12 90 25 35 12/14/18 16:00 97.7 109 24 103/65 (78) 95 12/14/18 16:00 35 12/14/18 16:00 Mechanical Ventilator 12/14/18 15:47 85 12/14/18 15:20 86 28 35 12/14/18 12:55 89 30 35 12/14/18 12:00 94 12/14/18 12:00 99.9 98 32 116/63 (80) 99 12/14/18 12:00 Mechanical Ventilator 12/14/18 12:00 35 12/14/18 10:50 97 29 35 Status: awake Condition: critical HEENT: atraumatic Neck: full ROM Lungs: rales, rhonchi Abdomen: soft, non-tender Extremities: edema Decubiti: location Micro: Microbiology Date/Time Source Procedure Growth Status 12/12/18 15:00 Blood Blood Culture - Preliminary Staphylococcus Sp Coag Neg Resulted 12/12/18 15:00 Blood Blood Culture - Preliminary NO GROWTH AFTER 48 HOURS Resulted 12/12/18 15:20 Sputum Gram Stain - Final Resulted 12/12/18 15:20 Sputum Culture - Preliminary Pseudomonas Aeruginosa Usual Respiratory Shelly Resulted Accucheck: 209 Critical Care - Subjective ROS Limited/Unobtainable: No Interval Events: looks comfortable FI02: 35 Vent Support Breath Rate: 18 Vent Support Mode: AC Vent Tidal Volume: 500 Sputum Amount: Small PEEP: 5.0 PIP: 24 Tube Feeding Amount: 65 I&O: Intake and Output 12/14/18 12/15/18 19:00 07:00 Intake Total 1440 ml 1397.5 ml Output Total 1300 ml 1850 ml Balance 140 ml -452.5 ml Intake Free Water 100 ml IV Total 200 ml 682.5 ml Tube Feeding 780 ml 715 ml Other 360 ml Output Urine Total 900 ml 1500 ml Stool Total 400 ml 350 ml CXR: no change Labs: Laboratory Tests Test 12/15/18 04:00 12/15/18 06:00 White Blood Count 15.3 K/UL (4.8-10.8) H Red Blood Count 2.81 M/UL (4.70-6.10) L Hemoglobin 8.7 G/DL (14.2-18.0) L Hematocrit 26.4 % (42.0-52.0) L Mean Corpuscular Volume 94 FL (80-99) Mean Corpuscular Hemoglobin 30.8 PG (27.0-31.0) Mean Corpuscular Hemoglobin Concent 32.8 G/DL (32.0-36.0) Red Cell Distribution Width 16.4 % (11.6-14.8) H Platelet Count 139 K/UL (150-450) L Mean Platelet Volume 9.6 FL (6.5-10.1) Neutrophils (%) (Auto) % (45.0-75.0) Lymphocytes (%) (Auto) % (20.0-45.0) Monocytes (%) (Auto) % (1.0-10.0) Eosinophils (%) (Auto) % (0.0-3.0) Basophils (%) (Auto) % (0.0-2.0) Differential Total Cells Counted 100 Neutrophils % (Manual) 94 % (45-75) H Lymphocytes % (Manual) 4 % (20-45) L Monocytes % (Manual) 1 % (1-10) Eosinophils % (Manual) 1 % (0-3) Basophils % (Manual) 0 % (0-2) Band Neutrophils 0 % (0-8) Platelet Estimate Decreased L Platelet Morphology Normal Anisocytosis 1+ Erythrocyte Sedimentation Rate 129 MM/HR (0-20) H Sodium Level 143 MMOL/L (136-145) Potassium Level 5.3 MMOL/L (3.5-5.1) H Chloride Level 115 MMOL/L (98-107) H Carbon Dioxide Level 17 MMOL/L (21-32) L Anion Gap 11 mmol/L (5-15) Blood Urea Nitrogen 23 mg/dL (7-18) H Creatinine 0.9 MG/DL (0.55-1.30) Estimat Glomerular Filtration Rate mL/min (>60) Glucose Level 232 MG/DL (74-106) H Calcium Level 7.7 MG/DL (8.5-10.1) L Phosphorus Level 1.8 MG/DL (2.5-4.9) L Magnesium Level 2.2 MG/DL (1.8-2.4) Total Bilirubin 0.3 MG/DL (0.2-1.0) Aspartate Amino Transf (AST/SGOT) 20 U/L (15-37) Alanine Aminotransferase (ALT/SGPT) 25 U/L (12-78) Alkaline Phosphatase 122 U/L (46-116) H C-Reactive Protein, Quantitative 52.4 mg/dL (0.00-0.90) H Total Protein 6.4 G/DL (6.4-8.2) Albumin 1.2 G/DL (3.4-5.0) L Globulin 5.2 g/dL Albumin/Globulin Ratio 0.2 (1.0-2.7) L Amylase Level 157 U/L (25-115) H Lipase 858 U/L (73-393) H Prothrombin Time 10.9 SEC (9.30-11.50) Prothromb Time International Ratio 1.0 (0.9-1.1) Activated Partial Thromboplast Time 34 SEC (23-33) H Abhishek Guerra MD Dec 15, 2018 10:01
--- NOTE | 2018-12-15 10:24 | Infectious Diseases Prog Note ---
Assessment/Plan Assessment/Plan Assessment: Severe Sepsis 2ry to GNR -CXR: Probable small left pleural effusion, also evident on prior study 2017. Bilateral interstitial disease, unchanged, suspect chronic. Correlate with clinical findings -sp CX MDR PsA (S Gentamicin, AMikacin, Cefepime) GNR bacteremia, likely from UTI -CT abd/p: Findings consistent with uncomplicated nonnecrotizing acute pancreatitis. No evidence of associated peripancreatic abscess Surgical changes as described, including right lower quadrant ileostomy, subtotal colectomy with Haroldo procedure. Wall thickening of the Haroldo pouch. This could indicate inflammation. However, this is also present on both of the prior 2 exams and may be baseline for this patien. Evidence of mild anasarca, with edema of the subcutaneous fat. This is a new finding. Chronic appearing decubitus changes of the bilateral ischia. Correlate with clinical findings. Complete left lower lobe consolidation. This is similar to both of the prior CTs, andis likely a chronic finding. There is progressive chronic interstitial fibrotic change involving the right middle lobe. There is also right lower lobe granulomatous calcification, Extensive pulmonary parenchymal opacities bilaterally may reflect acute inflammation/infection, edema, progressive chronic scarring, orcombination of the above. These are considerably more extensive than on the prior study -u/a 10-15, nit neg, luek +3; ucx 50-60k Enterococcus (Vanco resist; S AMp), 40-50 K Proteus -12/07 Bcx 3/4 Proteus; 12/08 Bcx 1/4 Proteus (S Aztreonam; R Cipro, levo; I Imipenem); 12/12 BCx p Acute pancreatitis -lipase ~1k Fever - recurrent- in the setting of bacteremia and pancreaitis Leukocytosis , increased-in the setting of bacteremia, UTI and acute pancreatitis CONS bacteremia- likely contaminant -12/12 Bcx 1/4 CONS; 12/14 Bcx p Hyponatremia, improving MAULIK, improving dysphagia s/p peg COPD GBS quadriplegia chronic resp failure s/p trach HTN CVA, nonverbal anemia SNF resident Plan: -Continue Aztreonam #04/16 for Proteus UTi and bacteremia; and IV Daptomycin #/ for enterococcus UTI and for GPC bacteremia -Add INH tobramycin for MDR PsA in sputum -f/u Bcx x2 -Monitor CBC/CMP, temperatures -PEG/Trach care -Aspiration precautions -management of acute pancreatitis per primary team. Will continue to follow along with you. Subjective Allergies: Coded Allergies: PENICILLINS (Unverified Allergy, Unknown, 02/26/16) POLYMYXIN B (Unverified Allergy, Unknown, 02/26/16) VANCOMYCIN (Unverified Allergy, Unknown, 02/26/16) Subjective Tm 101 WBC remains 15 repeat Bcx 10/07 CONS Objective Vital Signs Last 24 Hour Vital Signs Date Time Temp Pulse Resp B/P (MAP) Pulse Ox O2 Delivery O2 Flow Rate FiO2 12/15/18 08:44 94 31 35 12/15/18 08:39 87 105/64 12/15/18 08:37 87 12/15/18 08:36 87 105/64 12/15/18 08:00 35 12/15/18 08:00 99.1 87 26 105/64 (78) 99 12/15/18 06:33 91 28 35 12/15/18 05:57 99.1 12/15/18 05:57 99.1 12/15/18 05:08 96 30 35 12/15/18 04:00 101.0 105 27 115/62 (79) 98 12/15/18 04:00 91 12/15/18 04:00 35 12/15/18 04:00 Mechanical Ventilator 12/15/18 03:00 99 31 35 12/15/18 01:37 106 29 35 12/15/18 00:00 Mechanical Ventilator 12/15/18 00:00 103 12/15/18 00:00 98.7 99 25 119/67 (84) 99 12/14/18 22:58 101 32 35 12/14/18 21:45 98.4 97 24 108/64 (79) 97 12/14/18 21:23 98 35 35 12/14/18 20:00 107 12/14/18 20:00 35 12/14/18 20:00 Mechanical Ventilator 12/14/18 20:00 70 101/60 12/14/18 20:00 98.5 95 26 101/61 (74) 100 12/14/18 18:52 103 30 35 12/14/18 18:06 86 103/65 12/14/18 17:12 90 25 35 12/14/18 16:00 97.7 109 24 103/65 (78) 95 12/14/18 16:00 35 12/14/18 16:00 Mechanical Ventilator 12/14/18 15:47 85 12/14/18 15:20 86 28 35 12/14/18 12:55 89 30 35 12/14/18 12:00 94 12/14/18 12:00 99.9 98 32 116/63 (80) 99 12/14/18 12:00 Mechanical Ventilator 12/14/18 12:00 35 12/14/18 10:50 97 29 35 Height (Feet): 5 Height (Inches): 8.00 Weight (Pounds): 140 Objective HEENT: Eyes were normal. ENT, mucous membranes were not dehydrated. NECK: Supple. There was no goiter. No mass. No lymphadenopathy. There was no JVD. No bruits. Carotid upstroke was 2+. LUNGS: Clear. HEART: PMI was in the fifth left intercostal space in midclavicular line. There was normal S1 and normal S2. There was no murmur. No arrhythmia. No S3. No S4. No pericardial rub. ABDOMEN: Soft and nontender without organomegaly. There were no masses palpable. Normal bowel sounds without bruits. There was no guarding. No rebound tenderness. No ascites. No hernia. No CVA tenderness. EXTREMITIES: No cyanosis, no clubbing, and no edema. Extremities were warm. Microbiology Date/Time Source Procedure Growth Status 12/12/18 15:00 Blood Blood Culture - Preliminary Staphylococcus Sp Coag Neg Resulted 12/12/18 15:00 Blood Blood Culture - Preliminary NO GROWTH AFTER 48 HOURS Resulted 12/12/18 15:20 Sputum Gram Stain - Final Resulted 12/12/18 15:20 Sputum Culture - Preliminary Pseudomonas Aeruginosa Usual Respiratory Shelly Resulted Laboratory Tests Test 12/15/18 04:00 12/15/18 06:00 White Blood Count 15.3 K/UL (4.8-10.8) H Red Blood Count 2.81 M/UL (4.70-6.10) L Hemoglobin 8.7 G/DL (14.2-18.0) L Hematocrit 26.4 % (42.0-52.0) L Mean Corpuscular Volume 94 FL (80-99) Mean Corpuscular Hemoglobin 30.8 PG (27.0-31.0) Mean Corpuscular Hemoglobin Concent 32.8 G/DL (32.0-36.0) Red Cell Distribution Width 16.4 % (11.6-14.8) H Platelet Count 139 K/UL (150-450) L Mean Platelet Volume 9.6 FL (6.5-10.1) Neutrophils (%) (Auto) % (45.0-75.0) Lymphocytes (%) (Auto) % (20.0-45.0) Monocytes (%) (Auto) % (1.0-10.0) Eosinophils (%) (Auto) % (0.0-3.0) Basophils (%) (Auto) % (0.0-2.0) Differential Total Cells Counted 100 Neutrophils % (Manual) 94 % (45-75) H Lymphocytes % (Manual) 4 % (20-45) L Monocytes % (Manual) 1 % (1-10) Eosinophils % (Manual) 1 % (0-3) Basophils % (Manual) 0 % (0-2) Band Neutrophils 0 % (0-8) Platelet Estimate Decreased L Platelet Morphology Normal Anisocytosis 1+ Erythrocyte Sedimentation Rate 129 MM/HR (0-20) H Sodium Level 143 MMOL/L (136-145) Potassium Level 5.3 MMOL/L (3.5-5.1) H Chloride Level 115 MMOL/L (98-107) H Carbon Dioxide Level 17 MMOL/L (21-32) L Anion Gap 11 mmol/L (5-15) Blood Urea Nitrogen 23 mg/dL (7-18) H Creatinine 0.9 MG/DL (0.55-1.30) Estimat Glomerular Filtration Rate mL/min (>60) Glucose Level 232 MG/DL (74-106) H Calcium Level 7.7 MG/DL (8.5-10.1) L Phosphorus Level 1.8 MG/DL (2.5-4.9) L Magnesium Level 2.2 MG/DL (1.8-2.4) Total Bilirubin 0.3 MG/DL (0.2-1.0) Aspartate Amino Transf (AST/SGOT) 20 U/L (15-37) Alanine Aminotransferase (ALT/SGPT) 25 U/L (12-78) Alkaline Phosphatase 122 U/L (46-116) H C-Reactive Protein, Quantitative 52.4 mg/dL (0.00-0.90) H Total Protein 6.4 G/DL (6.4-8.2) Albumin 1.2 G/DL (3.4-5.0) L Globulin 5.2 g/dL Albumin/Globulin Ratio 0.2 (1.0-2.7) L Amylase Level 157 U/L (25-115) H Lipase 858 U/L (73-393) H Prothrombin Time 10.9 SEC (9.30-11.50) Prothromb Time International Ratio 1.0 (0.9-1.1) Activated Partial Thromboplast Time 34 SEC (23-33) H Current Medications Medications (Trade) Dose Ordered Sig/Fransisco Route PRN Reason Start Time Stop Time Status Last Admin Dose Admin Acetaminophen (Tylenol) 650 mg Q4H PRN GT For Pain 12/07/18 17:00 01/06/19 16:59 12/14/18 00:20 Acetaminophen (Tylenol) 650 mg Q4H PRN GT fever 12/10/18 09:45 01/06/19 16:59 12/15/18 05:27 Atenolol (Tenormin) 25 mg Q12HR ORAL 12/12/18 21:00 01/11/19 20:59 12/14/18 08:58 Aztreonam 1 gm/ Dextrose 55 ml @ 110 mls/hr Q8HR IVPB 12/09/18 15:00 12/20/18 14:59 12/15/18 05:01 Chlorhexidine Gluconate (Sandra-Hex 2%) 1 applic DAILY@2000 TOPIC 12/10/18 20:00 01/09/19 19:59 12/14/18 20:08 Daptomycin 250 mg/ Sodium Chloride 55 ml @ 100 mls/hr Q24H IV 12/13/18 18:30 12/20/18 18:29 12/14/18 16:50 Dextrose 1,000 ml @ 50 mls/hr Q20H IV 12/11/18 13:00 01/10/19 12:59 12/15/18 00:43 Dextrose (Dextrose 50%) 25 ml Q30M PRN IV Hypoglycemia 12/10/18 14:00 01/09/19 13:59 Dextrose (Dextrose 50%) 50 ml Q30M PRN IV Hypoglycemia 12/10/18 14:00 01/09/19 13:59 Digoxin (Lanoxin) 0.25 mg DAILY GT 12/12/18 09:00 01/10/19 08:59 12/15/18 08:37 Diltiazem HCl (Cardizem) 10 mg BIDPRN PRN IVP FOR HR >140 12/12/18 08:45 01/11/19 08:44 Diltiazem HCl (Cardizem) 30 mg BID GT 12/11/18 18:00 01/10/19 17:59 12/15/18 08:36 Gemfibrozil (Lopid) 600 mg TWICE A DAY GT 12/15/18 10:15 01/14/19 10:14 Heparin Sodium (Porcine) (Heparin 5000 units/ml) 5,000 units EVERY 12 HOURS SUBQ 12/07/18 21:00 01/06/19 20:59 12/15/18 08:38 Insulin Aspart (NovoLOG) EVERY 4 HOURS SUBQ 12/12/18 05:00 01/09/19 04:59 12/15/18 08:39 Nitroglycerin (Ntg) 0.4 mg Q5M PRN SL Prn Chest Pain 12/07/18 17:00 01/06/19 16:59 Ondansetron HCl (Zofran) 4 mg Q6H PRN IVP Nausea & Vomiting 12/07/18 17:00 01/06/19 16:59 Pantoprazole (Protonix) 40 mg EVERY 12 HOURS IVP 12/09/18 21:00 01/08/19 20:59 12/15/18 08:37 Phosphorus (Phospha 250 Neutral) 500 mg THREE TIMES A DAY GT 12/10/18 09:00 01/09/19 08:59 12/15/18 08:36 Polyethylene Glycol (Miralax) 17 gm DAILYPRN PRN GT Constipation 12/10/18 09:45 01/06/19 16:59 Sodium Polystyrene Sulfonate (Kayexalate w/ Sorb 15gm/60ml Susp) 60 gm ONCE GT 12/15/18 11:00 12/15/18 13:00 Aminah Champagne M.D. Dec 15, 2018 10:24
[2018-12-15] MEDS: Tobramycin for inhalation INH SCH ×2 (10:30→22:00)
[2018-12-15] MEDS ORDERED: Sodium Polystyrene Sulfon/Sorb 15gm/60ml Susp GT SCH (11:00)
--- NOTE | 2018-12-15 11:08 | NUR ---
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 HYPERNATREMIA VS: BP105/64, P 94, T 99.1, RR 26, SpO2 99 on VENT FiO2 35 WBC 15.3, RBC 2.81, APTT 34, K 5.3, Chloride 115, CO2 17, BUN 23, Ca 7.7 CXR Findings: Left pleural effusion, bilateral right greater than left mixed chronic and acute interstitial and airspace opacities persist, unchanged. IS:SODIUM POLYSTYRENE SULFONATE 60gM GT GEMFIBROZIL 600mg GT DIGOXIN 0.25 GT NOVOLOG SUBQ CARDIZEM 30m GT DEXTROSE 1L IV PHOSPHORUS 500mg GT PROTONIX 40m IVP AZTREONAM 55ml IVPB HEPARIN SUBQ SDU STATUS
[2018-12-15 12:00] VITALS: BP 109/66
--- NOTE | 2018-12-15 12:07 | GI Initial Consult Note ---
History of Present Illness General Date patient seen: Dec 15, 2018 Time patient seen: 12:01 Reason for Hospitalization: Abnormal Labs Referring physician: TRUONG SAUL Reason for Consultation: PANCREATITIS Present Illness HPI 73-year-old male presents ED for evaluation. Patient brought in by EMS for abnormal labs. [facility]. BUN and creatinine were elevated. Sodium also low. Patient is trach/vent. History of CVA. Nonverbal at baseline. No signs of distress. Unable to provide any additional history at this time. Afebrile. No other aggravating relieving factors. No other associated symptoms GI consulted for pancreatitis. ROS limited, all information obtained from EMR. Pt seen, awake alert NAD. Patient is trach dependent, G Tube dependent and has colostomy present. Labs reviewed; patient presents with white count of 15, Hgb of 8.7 and platelet count of 139. Phosphorus 1.8. Lipase levels 1286 and triglyceride levels of 1174. Home Meds Reported Medications Hydrocodone Bit/Acetaminophen 5-325* (NORCO 5-325*) 1 Each Tablet, 1 TAB ORAL Q4H PRN for For Pain, TAB 0 Refills 12/07/18 Lactobacillus Acidophilus (Acidophilus) 1 Each Tablet, 1 EACH PO, TAB 12/07/18 Ondansetron* (ZOFRAN*) 4 Mg Tablet, 4 MG GT Q4HR PRN for Nausea & Vomiting, TAB 11/19/17 Chlorhexidine Gluconate* (HIBICLENS*) 118 Ml Liquid, 118 ML TP, ML 11/19/17 Linagliptin (TRADJENTA) 5 Mg Tablet, 5 MG GT, TAB 11/19/17 Metformin Hcl* (METFORMIN HCL*) 500 Mg Tablet, 500 MG GT TWICE A DAY, TAB 11/19/17 Vitamin D (Vitamin D3) 400 Unit Tablet, 5000 UNITS GT DAILY, TAB 11/19/17 Ranitidine Hcl* (ZANTAC*) 150 Mg Tablet, 150 MG GT TWICE A DAY, TAB 11/19/17 Multivit-Min/Iron Fum/Folic AC (Jomnq-Vlxoqkk-Obxeqlid Tablet) 1 Each Tablet, 1 EACH GT, TAB 11/19/17 Ferrous Sulfate (Ferrous Sulfate) 220 Mg/5 Ml Elixir, 220 MG GT, ML 11/19/17 Atorvastatin Calcium* (ATORVASTATIN CALCIUM*) 40 Mg Tablet, 40 MG GT BEDTIME, TAB 11/19/17 Acetaminophen* (ACETAMINOPHEN 325MG TABLET*) 325 Mg Tablet, 650 MG GT DAILY, TAB 11/19/17 Dextran 70/Hypromellose (ARTIFICIAL TEARS EYE DROPS*) 15 Ml Drops, 1 DROP BOTH EYES, #15 ML 0 Refills 11/19/17 Ranitidine Hcl* (ZANTAC*) 150 Mg Tablet, 150 MG ORAL TWICE A DAY, TAB 03/01/16 Polyethylene Glycol* (MIRALAX*) 17 Gm Powd.pack, 17 GM ORAL DAILY PRN for Constipation, PACKET 03/01/16 Morphine Sulfate/Pf (MORPHINE 4 MG/ML CARPUJECT) 4 Mg/1 Ml Cartridge, 4 MG IV Q4HR PRN for For Pain 03/01/16 Linezolid* (ZYVOX*) 600 Mg Tablet, 600 MG ORAL EVERY 12 HOURS, TAB 03/01/16 [lorazepam] No Conflict Check, 2 MG IV PRN for Agitation 03/01/16 Aspirin* (ASPIR 81*) 81 Mg Tablet.dr, 81 MG GT DAILY, TAB 03/01/16 Heparin Sodium,Porcine/Ns/Pf (Heparin) 2,000 Unit/1000 Ml Iv.soln, 5000 UNIT SUBQ Q12HR 03/01/16 Ferrous Sulfate (Feosol) 325 Mg Tablet, 300 MG GT BID, TAB 03/01/16 Dextrose/Sod Chloride (Dextrose 5%-0.45% NaCl IV Soln) 1,000 Ml Bag, 40 ML IV, BAG 03/01/16 Docusate Sodium (Docusate Sodium) 100 Mg/10 Ml Udc, 100 MG GT TWICE A DAY, EA 03/01/16 Aztreonam (AZACTAM) 1 Gm Vial, 1 GM IVPB Q8HR, VIAL 03/01/16 Na Phos,M-B/Na Phos,Di-Ba (Fleet Enema) 133 Ml Enema, 118 ML RC PRN for Constipation, EA 02/26/16 Guaifenesin/Dextromethorphan (Guaifenesin Dm Syrup) 5 Ml Syr, 10 ML GT PRN for For Cough, SYR 02/26/16 Citalopram Hydrobromide (CELEXA) 10 Mg Tablet, 10 MG GT DAILY, TAB 02/26/16 Bisacodyl (BISACODYL) 10 Mg Supp.rect, 10 MG RC PRN for Constipation, SUPP 02/26/16 Acetaminophen (Acetaminophen) 650 Mg/20.3 Ml Soln, 650 MG GT EVERY 4 HOURS PRN for For Pain, ML 0 Refills 02/26/16 Cholecalciferol (Vitamin D3) (VITAMIN D-400*) 400 Unit Tablet, 1000 UNITS ORAL DAILY, #10 TAB 0 Refills 02/26/16 Chlorhexidine Gluconate (Chlorhexidine Gluconate) 16 Oz Soln, 15 ML MT TWICE A DAY, ML 02/26/16 Ascorbic Acid* (VITAMIN C*) 500 Mg Tablet, 500 MG GT DAILY, #30 TAB 0 Refills 02/26/16 Magnesium Hydroxide (Milk of Magnesia) 30 Ml Susp, 30 ML ORAL DAILY PRN for Constipation 02/26/16 Cranberry Fruit Concentrate (CRANBERRY) 450 Mg Capsule, 450 MG GT, CAP 02/25/16 Simvastatin (ZOCOR) 40 Mg Tablet, 40 MG GT BEDTIME, TAB 02/25/16 Metoclopramide Hcl (METOCLOPRAMIDE HCL*) 5 Mg/1 Ml Vial, 5 MG GT, VIAL 02/25/16 Acidophilus/Bulgaricus (FLORANEX TABLET) 1 Each Tablet, 1 EACH GT, TAB 02/25/16 Esomeprazole Magnesium (NEXIUM) 40 Mg Capsule.dr, 40 MG GT DAILY, CAP 02/25/16 Ferrous Sulfate (FERROUS SULFATE) 140 Mg Tablet.er, 50 MG GT, TAB 02/25/16 Ipratropium/Albuterol Sulfate (DuoNeb 0.5-3(2.5)mg/3ml) 3 Ml Ampul.neb, 3 ML HHN , EA 02/25/16 Atenolol* (TENORMIN*) 50 Mg Tablet, 50 MG ORAL BID, TAB 02/25/16 Med list reviewed/reconciled: Yes Allergies: Coded Allergies: PENICILLINS (Unverified Allergy, Unknown, 02/26/16) POLYMYXIN B (Unverified Allergy, Unknown, 02/26/16) VANCOMYCIN (Unverified Allergy, Unknown, 02/26/16) Patient History Limited by: medical condition History Provided By: Medical Record [facility] Narrative Past Medical History: DM, HTN, CVA/TIA Past Surgical History: other - trach/vent Pertinent Family History: none Social History: Denies: smoking, alcohol use, drug use Immunizations: UTD Reviewed Nursing Documentation: PMH: Agreed; PSxH: Agreed Nursing Documentation-PMH Hx Cardiac Problems: No Hx Hypertension: Yes Hx COPD: Yes - Chronic trach/venitlator Hx Diabetes: Yes Hx Cancer: No Hx Gastrointestinal Problems: Yes - gtube Hx Neurological Problems: Yes - guillian-barre Hx Cerebrovascular Accident: Yes - quadriplegia 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 Hx Dysphasia: Yes Social History: Denies: smoking, alcohol use, drug use, other Review of Systems All Other Systems: limited Physical Exam Vital Signs Date Time Temp Pulse Resp B/P (MAP) Pulse Ox O2 Delivery O2 Flow Rate FiO2 12/11/18 08:00 95 12/11/18 08:00 35 12/11/18 08:00 100.0 30 104/54 (71) 98 12/11/18 09:00 Mechanical Ventilator 12/12/18 17:22 15.0 Sp02 EP Interpretation: reviewed, normal Labs Laboratory Tests Test 12/15/18 04:00 12/15/18 06:00 White Blood Count 15.3 K/UL (4.8-10.8) H Red Blood Count 2.81 M/UL (4.70-6.10) L Hemoglobin 8.7 G/DL (14.2-18.0) L Hematocrit 26.4 % (42.0-52.0) L Mean Corpuscular Volume 94 FL (80-99) Mean Corpuscular Hemoglobin 30.8 PG (27.0-31.0) Mean Corpuscular Hemoglobin Concent 32.8 G/DL (32.0-36.0) Red Cell Distribution Width 16.4 % (11.6-14.8) H Platelet Count 139 K/UL (150-450) L Mean Platelet Volume 9.6 FL (6.5-10.1) Neutrophils (%) (Auto) % (45.0-75.0) Lymphocytes (%) (Auto) % (20.0-45.0) Monocytes (%) (Auto) % (1.0-10.0) Eosinophils (%) (Auto) % (0.0-3.0) Basophils (%) (Auto) % (0.0-2.0) Differential Total Cells Counted 100 Neutrophils % (Manual) 94 % (45-75) H Lymphocytes % (Manual) 4 % (20-45) L Monocytes % (Manual) 1 % (1-10) Eosinophils % (Manual) 1 % (0-3) Basophils % (Manual) 0 % (0-2) Band Neutrophils 0 % (0-8) Platelet Estimate Decreased L Platelet Morphology Normal Anisocytosis 1+ Erythrocyte Sedimentation Rate 129 MM/HR (0-20) H Sodium Level 143 MMOL/L (136-145) Potassium Level 5.3 MMOL/L (3.5-5.1) H Chloride Level 115 MMOL/L (98-107) H Carbon Dioxide Level 17 MMOL/L (21-32) L Anion Gap 11 mmol/L (5-15) Blood Urea Nitrogen 23 mg/dL (7-18) H Creatinine 0.9 MG/DL (0.55-1.30) Estimat Glomerular Filtration Rate mL/min (>60) Glucose Level 232 MG/DL (74-106) H Calcium Level 7.7 MG/DL (8.5-10.1) L Phosphorus Level 1.8 MG/DL (2.5-4.9) L Magnesium Level 2.2 MG/DL (1.8-2.4) Total Bilirubin 0.3 MG/DL (0.2-1.0) Aspartate Amino Transf (AST/SGOT) 20 U/L (15-37) Alanine Aminotransferase (ALT/SGPT) 25 U/L (12-78) Alkaline Phosphatase 122 U/L (46-116) H C-Reactive Protein, Quantitative 52.4 mg/dL (0.00-0.90) H Total Protein 6.4 G/DL (6.4-8.2) Albumin 1.2 G/DL (3.4-5.0) L Globulin 5.2 g/dL Albumin/Globulin Ratio 0.2 (1.0-2.7) L Amylase Level 157 U/L (25-115) H Lipase 858 U/L (73-393) H Prothrombin Time 10.9 SEC (9.30-11.50) Prothromb Time International Ratio 1.0 (0.9-1.1) Activated Partial Thromboplast Time 34 SEC (23-33) H General Appearance: no apparent distress Head: normocephalic EENT: PERRL/EOMI, normal ENT inspection Neck: supple Respiratory: normal breath sounds, no respiratory distress, other - trach Cardiovascular: normal rate Gastrointestinal: normal inspection, non tender, soft, normal bowel sounds, non -distended, other - colostomy and GT present Rectal: deferred Genitourinary: deferred Musculoskeletal: normal inspection, back normal Neurologic: alert Skin: normal inspection, normal color, no rash, warm/dry, palpation normal, well hydrated Lymphatic: normal inspection, no adenopathy Current Medications Current Medications Medications (Trade) Dose Ordered Sig/Fransisco Route PRN Reason Start Time Stop Time Status Last Admin Dose Admin Acetaminophen (Tylenol) 650 mg Q4H PRN GT For Pain 12/07/18 17:00 01/06/19 16:59 12/14/18 00:20 Acetaminophen (Tylenol) 650 mg Q4H PRN GT fever 12/10/18 09:45 01/06/19 16:59 12/15/18 05:27 Atenolol (Tenormin) 25 mg Q12HR ORAL 12/12/18 21:00 01/11/19 20:59 12/14/18 08:58 Aztreonam 1 gm/ Dextrose 55 ml @ 110 mls/hr Q8HR IVPB 12/09/18 15:00 12/20/18 14:59 12/15/18 05:01 Chlorhexidine Gluconate (Sandra-Hex 2%) 1 applic DAILY@2000 TOPIC 12/10/18 20:00 01/09/19 19:59 12/14/18 20:08 Daptomycin 250 mg/ Sodium Chloride 55 ml @ 100 mls/hr Q24H IV 12/13/18 18:30 12/20/18 18:29 12/14/18 16:50 Dextrose (Dextrose 50%) 25 ml Q30M PRN IV Hypoglycemia 12/10/18 14:00 01/09/19 13:59 Dextrose (Dextrose 50%) 50 ml Q30M PRN IV Hypoglycemia 12/10/18 14:00 01/09/19 13:59 Digoxin (Lanoxin) 0.25 mg DAILY GT 12/12/18 09:00 01/10/19 08:59 12/15/18 08:37 Diltiazem HCl (Cardizem) 10 mg BIDPRN PRN IVP FOR HR >140 12/12/18 08:45 01/11/19 08:44 Diltiazem HCl (Cardizem) 30 mg BID GT 12/11/18 18:00 01/10/19 17:59 12/15/18 08:36 Gemfibrozil (Lopid) 600 mg TWICE A DAY GT 12/15/18 10:15 01/14/19 10:14 12/15/18 10:32 Heparin Sodium (Porcine) (Heparin 5000 units/ml) 5,000 units EVERY 12 HOURS SUBQ 12/07/18 21:00 01/06/19 20:59 12/15/18 08:38 Insulin Aspart (NovoLOG) EVERY 4 HOURS SUBQ 12/12/18 05:00 01/09/19 04:59 12/15/18 08:39 Nitroglycerin (Ntg) 0.4 mg Q5M PRN SL Prn Chest Pain 12/07/18 17:00 01/06/19 16:59 Ondansetron HCl (Zofran) 4 mg Q6H PRN IVP Nausea & Vomiting 12/07/18 17:00 01/06/19 16:59 Pantoprazole (Protonix) 40 mg EVERY 12 HOURS IVP 12/09/18 21:00 01/08/19 20:59 12/15/18 08:37 Phosphorus (Phospha 250 Neutral) 500 mg THREE TIMES A DAY GT 12/10/18 09:00 01/09/19 08:59 12/15/18 08:36 Polyethylene Glycol (Miralax) 17 gm DAILYPRN PRN GT Constipation 12/10/18 09:45 01/06/19 16:59 Sodium Polystyrene Sulfonate (Kayexalate w/ Sorb 15gm/60ml Susp) 60 gm ONCE GT 12/15/18 11:00 12/15/18 13:00 12/15/18 10:32 Tobramycin Sulfate (Nebcin) 300 mg Q12HR@10,22 INH 12/15/18 10:30 12/22/18 10:29 GI: Plan Problems: (1) Pancreatitis (2) Feeding by G-tube (3) Anemia (4) Colostomy care (5) Diabetes mellitus, type II Plan APCT reviewed >> Findings consistent with uncomplicated nonnecrotizing acute pancreatitis. No evidence of associated peripancreatic abscess. most likely pancreatitis 2/2 to hypertriglyceridemia. start Gemfibrozil BID trend lipase anemia work up OB stool r/o GI bleed monitor H&H, prn transfusions bowel regime ppi fu labs Discussed with Dr. Jackson. Thank you for this patient referral, we will follow. The patient was seen and examined at bedside and all new and available data was reviewed in the patients chart. I agree with the above findings, impression and plan. (Patient seen earlier today. Signature stamp does not reflect patient encounter time.). - MD Jessa DeckerTempe [facility] HospitalCaroline CARRIER DRIVER Dec 15, 2018 12:07
--- NOTE | 2018-12-15 13:13 | Progress Note ---
DATE: 12/12/2018 SUBJECTIVE: The patient is awake and alert . PHYSICAL EXAMINATION: VITAL SIGNS: Blood pressure 130/72, his pulse is 77, respirations 18, and temperature 98. HEENT: Eyes were normal. ENT, mucous membranes were moist and intact. NECK: Supple with no JVD without lymph nodes. Tracheostomy site is clean. LUNGS: Clear without rhonchi, rales, or wheezing. . HEART: . ABDOMEN: Soft and nontender with normal bowel sounds. EXTREMITIES: Warm without cyanosis, clubbing, or edema. LABORATORY AND DIAGNOSTIC DATA: Hemoglobin is 7.6, hematocrit 24.2 with MCV of 99, WBC of 16.0, and platelets 154. His BUN and creatinine are 26 and 1.0 respectively. Sodium 149, potassium 3.6, chloride 118, CO2 is 21. His uric acid is 5.8. His phosphorus is and magnesium is 2.5. IMPRESSION: The patient's condition clinically improved leukocytosis. Repeat laboratory tests will be done in the morning. Neema Hutchins M.D. DR: Zee JOB#: [id number] CC:
--- NOTE | 2018-12-15 13:13 | Progress Note ---
DATE: 12/13/2018 NOTE: POOR AUDIO SUBJECTIVE: The patient is afebrile. Hemodynamically stable. appear improved. 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 PHYSICAL EXAMINATION: VITAL SIGNS: Blood pressure 105/58, his pulse is 94, respirations are 28, and temperature was 99.3. HEENT: Eyes were normal. ENT, mucous membranes were moist and intact. NECK: Supple with no JVD without lymph nodes. Tracheostomy site is clean. LUNGS: Clear without rhonchi, rales, or wheezing. Secretions are small, thin, and mcclure. HEART: Normal sounds with regular heartbeat. There is near tachycardia. ABDOMEN: Soft and nontender with normal bowel sounds. Gastrostomy site is clean. EXTREMITIES: Warm without cyanosis, clubbing, or edema. LABORATORY AND DIAGNOSTIC DATA: Hemoglobin is 6.4, hematocrit was 20.2 with MCV of 99, WBC of 15.9, and platelets are 155,000. His BUN and creatinine is 20 and 0.9 respectively. His sodium is 144, potassium 2.9, chloride 112, and CO2 17. SGOT, SGPT and alkaline phosphatase are normal. ProBNP is . Albumin is 1.1 and globulin is 4.7. His abdominal CT is unexplained till now. Laboratory abnormalities and has an infiltrate, also peripancreatic fat. There is a small amount of fluid along with pancreas, left anterior fascia. Liver is unremarkable. There is no pelvic mass and there is no retroperitoneal adenopathy or mass. A 7 mm calculus is seen in the right renal pelvis and 4 mm calculus in the left renal pelvis. showed evidence of hemicolectomy in the past. bowel distention or thickened wall hypokalemia and acidosis, and no available. IMPRESSION: The patient with acute pancreatitis of unknown cause. No evidence of gallstone. No history of alcoholism. Other uncommon cause should be considered. Repeat laboratory tests will be done in the a.m. The case has been discussed with the medical management specialist. Neema Hutchins M.D. DR: ONIEL JOB#: [id number] CC:
--- NOTE | 2018-12-15 13:14 | Progress Note ---
DATE: 12/14/2018 SUBJECTIVE: The patient is afebrile. Hemodynamically stable with persistent tachycardia at rest. PHYSICAL EXAMINATION: VITAL SIGNS: Blood pressure 101/61, his pulse is 107, respirations of 26, and temperature is 98.5. HEENT: Eyes were normal. ENT, mucous membranes were moist and intact. NECK: Supple with no JVD without lymph nodes. Tracheostomy site is clean. LUNGS: Clear without rhonchi, rales, or wheezing. Secretions are small, thick, and barros. HEART: Normal sounds with regular heartbeat. There is no S3, S4, or pericardial rub. There is tachycardia at rest. Sinus tachycardia on monitor. ABDOMEN: Soft and nontender with normal bowel sounds. Gastrostomy site is clean. EXTREMITIES: Warm without cyanosis, clubbing, or edema. LABORATORY AND DIAGNOSTIC DATA: His hemoglobin is 7.1, hematocrit 22.0 with MCV of 97, WBC of 15.1, and platelets are 137,000. His BUN and creatinine are 20 and 0.8 respectively. His sodium is 144, potassium 3.9, chloride 116, CO2 is 16, his glucose is 275, his phosphorus is 1.3, and magnesium is 1.3. His albumin is 1.0 and total protein is 5.0. His sputum culture from two days ago grew gram-negative bacilli and normal juan alberto. drop in hemoglobin and hematocrit. The patient appeared with short attention span and slightly confused. IMPRESSION AND PLAN: The patient has acute pancreatitis by CT scan. His amylase is 186 and his lipase is 1296. The patient will continue with the same IV antibiotics. IV fluid 150 mL/hour. He is currently on daptomycin 250 mg IV piggyback q.24 h. Repeat laboratory tests will be done in the a.m. including amylase and lipase. Neema Hutchins M.D. DR: NAYELY JOB#: [id number] CC:
--- NOTE | 2018-12-15 13:37 | Surgery Progress Note ---
Surgery Progress Note Subjective Additional Comments leukocytosis stable. britany/lip trending down. exam unchanged. labs noted. cxr stable. Objective Last 24 Hour Vital Signs Date Time Temp Pulse Resp B/P (MAP) Pulse Ox O2 Delivery O2 Flow Rate FiO2 12/15/18 12:39 93 29 35 12/15/18 12:00 Mechanical Ventilator 12/15/18 12:00 35 12/15/18 12:00 97.9 86 24 109/66 (80) 100 12/15/18 10:35 97 30 35 12/15/18 08:44 94 31 35 12/15/18 08:39 87 105/64 12/15/18 08:37 87 12/15/18 08:36 87 105/64 12/15/18 08:00 35 12/15/18 08:00 Mechanical Ventilator 12/15/18 08:00 99.1 87 26 105/64 (78) 99 12/15/18 07:41 92 12/15/18 06:33 91 28 35 12/15/18 05:57 99.1 12/15/18 05:57 99.1 12/15/18 05:08 96 30 35 12/15/18 04:00 101.0 105 27 115/62 (79) 98 12/15/18 04:00 91 12/15/18 04:00 35 12/15/18 04:00 Mechanical Ventilator 12/15/18 03:00 99 31 35 12/15/18 01:37 106 29 35 12/15/18 00:00 Mechanical Ventilator 12/15/18 00:00 103 12/15/18 00:00 98.7 99 25 119/67 (84) 99 12/14/18 22:58 101 32 35 12/14/18 21:45 98.4 97 24 108/64 (79) 97 12/14/18 21:23 98 35 35 12/14/18 20:00 107 12/14/18 20:00 35 12/14/18 20:00 Mechanical Ventilator 12/14/18 20:00 70 101/60 12/14/18 20:00 98.5 95 26 101/61 (74) 100 12/14/18 18:52 103 30 35 12/14/18 18:06 86 103/65 12/14/18 17:12 90 25 35 12/14/18 16:00 97.7 109 24 103/65 (78) 95 12/14/18 16:00 35 12/14/18 16:00 Mechanical Ventilator 12/14/18 15:47 85 12/14/18 15:20 86 28 35 I&O Intake and Output 12/14/18 12/15/18 18:59 06:59 Intake Total 1590 ml 1347.5 ml Output Total 1300 ml 1850 ml Balance 290 ml -502.5 ml Intake Free Water 200 ml IV Total 250 ml 632.5 ml Tube Feeding 780 ml 715 ml Other 360 ml Output Urine Total 900 ml 1500 ml Stool Total 400 ml 350 ml Dressing: other Wound: other Drains: other Cardiovascular: RSR Respiratory: decreased breath sounds Abdomen: soft, present bowel sounds, non-distended Extremities: other Laboratory Tests Test 12/15/18 04:00 12/15/18 06:00 White Blood Count 15.3 K/UL (4.8-10.8) H Red Blood Count 2.81 M/UL (4.70-6.10) L Hemoglobin 8.7 G/DL (14.2-18.0) L Hematocrit 26.4 % (42.0-52.0) L Mean Corpuscular Volume 94 FL (80-99) Mean Corpuscular Hemoglobin 30.8 PG (27.0-31.0) Mean Corpuscular Hemoglobin Concent 32.8 G/DL (32.0-36.0) Red Cell Distribution Width 16.4 % (11.6-14.8) H Platelet Count 139 K/UL (150-450) L Mean Platelet Volume 9.6 FL (6.5-10.1) Neutrophils (%) (Auto) % (45.0-75.0) Lymphocytes (%) (Auto) % (20.0-45.0) Monocytes (%) (Auto) % (1.0-10.0) Eosinophils (%) (Auto) % (0.0-3.0) Basophils (%) (Auto) % (0.0-2.0) Differential Total Cells Counted 100 Neutrophils % (Manual) 94 % (45-75) H Lymphocytes % (Manual) 4 % (20-45) L Monocytes % (Manual) 1 % (1-10) Eosinophils % (Manual) 1 % (0-3) Basophils % (Manual) 0 % (0-2) Band Neutrophils 0 % (0-8) Platelet Estimate Decreased L Platelet Morphology Normal Anisocytosis 1+ Erythrocyte Sedimentation Rate 129 MM/HR (0-20) H Sodium Level 143 MMOL/L (136-145) Potassium Level 5.3 MMOL/L (3.5-5.1) H Chloride Level 115 MMOL/L (98-107) H Carbon Dioxide Level 17 MMOL/L (21-32) L Anion Gap 11 mmol/L (5-15) Blood Urea Nitrogen 23 mg/dL (7-18) H Creatinine 0.9 MG/DL (0.55-1.30) Estimat Glomerular Filtration Rate mL/min (>60) Glucose Level 232 MG/DL (74-106) H Calcium Level 7.7 MG/DL (8.5-10.1) L Phosphorus Level 1.8 MG/DL (2.5-4.9) L Magnesium Level 2.2 MG/DL (1.8-2.4) Total Bilirubin 0.3 MG/DL (0.2-1.0) Aspartate Amino Transf (AST/SGOT) 20 U/L (15-37) Alanine Aminotransferase (ALT/SGPT) 25 U/L (12-78) Alkaline Phosphatase 122 U/L (46-116) H C-Reactive Protein, Quantitative 52.4 mg/dL (0.00-0.90) H Total Protein 6.4 G/DL (6.4-8.2) Albumin 1.2 G/DL (3.4-5.0) L Globulin 5.2 g/dL Albumin/Globulin Ratio 0.2 (1.0-2.7) L Amylase Level 157 U/L (25-115) H Lipase 858 U/L (73-393) H Prothrombin Time 10.9 SEC (9.30-11.50) Prothromb Time International Ratio 1.0 (0.9-1.1) Activated Partial Thromboplast Time 34 SEC (23-33) H Plan Problems: (1) Decubitus skin ulcer Assessment & Plan: Pt presented on admission with multiple pressure injuries and Skin erosion. Pt has trach and no evidence of skin breakdown noted under trach collar. Unstageable pressure injury noted to L earlobe. Stable dry brown eschar noted(L) 0.7cm x (W)0.5cm. Gross erythema with denudement and multiple scattered partial thickness wounds noted to buttocks and base of scrotum extending into both posterior upper thighs.Moderate amt sanguineous exudate noted upon removal of drsgs. 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 Moderate amt sanguineous exudate noted (L)3cm x (W)1cm x (D)7.4cm.Erythema periwound secondary to skin erosions. Partially opened DTPI L ischium .Base of wound purple,fluctuant with red borders.Open areas at base of this wound are beefy red in colour.Moderate amt sanguineous exudate noted.(L)7cm x (W)6.8cm. DTPI R ischium.Wound is fluctuant-purple in center with surrounding Maroon colour, and is partially opened with a small area of 5% that is necrotic.(L) 6.5cm x (W)5.5cm. Red skin erosion periwound. Partial thickness pressure injury L hip. Base of wound is moist -viable. Edges adherent and dry. Periwound without erythema or induration(L)1.2cm x (W)0.5cm. Elongate partial thickness wound posterior upper L thigh .Base of wound is moist -viable .Small amt sanguineous exudate noted. (+) maceration along borders. Erythema without induration or elevation in skin temp noted.(L)2cm x (W )9.4cm. DTPI noted to R heel .Base of injury is indurated and maroon in colour. Periwound is firm without erythema. (L)1.5cm x (W)1cm.R heel without evidence of skin breakdown. Tx.Plan: Cleanse Sacrum with Saline. Loosely pack with Hydrogel impregnated Kerlix. Apply Triad Paste periwound. Cover with ABD pad. Daily and prn. Cleanse R and L ischial wounds with Saline. Apply Moisture Barrier Paste.Cover with abd pads Daily and prn. Apply Moisture Barrier to skin erosions on buttocks,scrotum, and posterior aspects of both thighs.Cover with ABD pad daily and prn. Cleanse wound L hip with Saline. Apply Moisture Barrier paste .Cover with Optifoam drsg Daily and prn. Cleanse wound posterior upper L thigh with saline .Apply Hydrogel. Cover with Optifoam drsg Daily and prn. Apply Cavilon Skin Barrier to L earlobe daily. Please monitor. Apply Cavilon Skin Barrier to L heel. Cover with Optifoam drsg. Change every 7 days and prn. Apply Cavilon Skin Barrier to R heel. Cover with Optifoam drsg .Change every 7 days and prn. Air fluidized mattress. Reposition every 2hours or as tolerated. Off-load heels with pillow. (2) Acute and chronic respiratory failure Assessment & Plan: cont with breathing treatments trach stable trach site clean will change dressings daily (3) Acute pancreatitis Assessment & Plan: Findings consistent with uncomplicated nonnecrotizing acute pancreatitis. No evidence of associated peripancreatic abscess Surgical changes as described, including right lower quadrant ileostomy, subtotal colectomy with Haroldo procedure. Wall thickening of the Haroldo pouch. This could indicate inflammation. However, this is also present on both of the prior 2 exams and may be baseline for this patient Evidence of mild anasarca, with edema of the subcutaneous fat. This is a new finding Chronic appearing decubitus changes of the bilateral ischia. Correlate with clinical findings Complete left lower lobe consolidation. This is similar to both of the prior CTs , and is likely a chronic finding. There is progressive chronic interstitial fibrotic change involving the right middle lobe. There is also right lower lobe granulomatous calcification Extensive pulmonary parenchymal opacities bilaterally may reflect acute inflammation/infection, edema, progressive chronic scarring, or combination of the above. These are considerably more extensive than on the prior study Trace bilateral pleural fluid New finding of nonobstructive right renal collecting system calculs 4 mm calculus within the bladder lumen. This may represent a bladder calculus, a calculus and left ureteral orifice, or recently passed stone. If either of the latter, no evidence of resultant hydronephrosis or hydroureter Suprapubic catheter. This is a new finding since the 2016 exams. Interim removal of previously demonstrated Bledsoe catheter Gastrostomy Left renal cysts. Subcentimeter low-attenuation right renal lesions, too small to characterize, most likely benign simple cysts. No further follow-up necessary elevated amylase/lipase - trending down leukocytosis GPC Bacteremia transfused anemia -no acute surgical intervention planned -transfuse as per hematology -Abx as per ID -trend lip/briatny - recent finding based on CT given patient cannot given history or participate in exam. CT with uncomplicated pancreatitis. okay for diet / feeds for now. clinically improving IV fluids Javier Ricardo Dec 15, 2018 13:37
--- NOTE | 2018-12-15 14:43 | Nephrology Progress Note ---
Assessment/Plan Problem List: (1) ATN (acute tubular necrosis) (2) Anemia (3) Feeding by G-tube (4) Acute and chronic respiratory failure (5) UTI (urinary tract infection) (6) Hyponatremia Assessment Patient have mainly Pre Renal Azotemia with possible underlying CKD- Low Na partly depletional, partly due to Hyperglycemia Other conditions as outlined: (1) Acute and chronic respiratory failure (roqhe-[id number]) (2) Sepsis (3) Malnutrition and HypoAlbuminemia (4) UTI (urinary tract infection) (5) Anemia (6) Diabetes mellitus, type II (7) Colostomy care (8) Cerebral vascular disease (9) Decubitus ulcer of sacral region, stage 2 (10) Feeding by G-tube (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 Hydrate- change IV to D5 now 50 cc / h up dose digoxin and tenormin K and Phos supplement as needed Keep electrolytes in check Keep BS and BP in check Subjective ROS Limited/Unobtainable: Yes Objective Objective Last 24 Hour Vital Signs Date Time Temp Pulse Resp B/P (MAP) Pulse Ox O2 Delivery O2 Flow Rate FiO2 12/15/18 12:39 93 29 35 12/15/18 12:00 Mechanical Ventilator 12/15/18 12:00 35 12/15/18 12:00 97.9 86 24 109/66 (80) 100 12/15/18 10:35 97 30 35 12/15/18 08:44 94 31 35 12/15/18 08:39 87 105/64 12/15/18 08:37 87 12/15/18 08:36 87 105/64 12/15/18 08:00 35 12/15/18 08:00 Mechanical Ventilator 12/15/18 08:00 99.1 87 26 105/64 (78) 99 12/15/18 07:41 92 12/15/18 06:33 91 28 35 12/15/18 05:57 99.1 12/15/18 05:57 99.1 12/15/18 05:08 96 30 35 12/15/18 04:00 101.0 105 27 115/62 (79) 98 12/15/18 04:00 91 12/15/18 04:00 35 12/15/18 04:00 Mechanical Ventilator 12/15/18 03:00 99 31 35 12/15/18 01:37 106 29 35 12/15/18 00:00 Mechanical Ventilator 12/15/18 00:00 103 12/15/18 00:00 98.7 99 25 119/67 (84) 99 12/14/18 22:58 101 32 35 12/14/18 21:45 98.4 97 24 108/64 (79) 97 12/14/18 21:23 98 35 35 12/14/18 20:00 107 12/14/18 20:00 35 12/14/18 20:00 Mechanical Ventilator 12/14/18 20:00 70 101/60 12/14/18 20:00 98.5 95 26 101/61 (74) 100 12/14/18 18:52 103 30 35 12/14/18 18:06 86 103/65 12/14/18 17:12 90 25 35 12/14/18 16:00 97.7 109 24 103/65 (78) 95 12/14/18 16:00 35 12/14/18 16:00 Mechanical Ventilator 12/14/18 15:47 85 12/14/18 15:20 86 28 35 Intake and Output 12/14/18 12/15/18 19:00 07:00 Intake Total 1440 ml 1397.5 ml Output Total 1300 ml 1850 ml Balance 140 ml -452.5 ml Intake Free Water 100 ml IV Total 200 ml 682.5 ml Tube Feeding 780 ml 715 ml Other 360 ml Output Urine Total 900 ml 1500 ml Stool Total 400 ml 350 ml Laboratory Tests 12/15/18 04:00: White Blood Count 15.3H, Red Blood Count 2.81L, Hemoglobin 8.7L, Hematocrit 26.4L, Mean Corpuscular Volume 94, Mean Corpuscular Hemoglobin 30.8, Mean Corpuscular Hemoglobin Concent 32.8, Red Cell Distribution Width 16.4H, Platelet Count 139L, Mean Platelet Volume 9.6, Neutrophils (%) (Auto) , Lymphocytes (%) (Auto) , Monocytes (%) (Auto) , Eosinophils (%) (Auto) , Basophils (%) (Auto) , Differential Total Cells Counted 100, Neutrophils % ( Manual) 94H, Lymphocytes % (Manual) 4L, Monocytes % (Manual) 1, Eosinophils % ( Manual) 1, Basophils % (Manual) 0, Band Neutrophils 0, Platelet Estimate DecreasedL, Platelet Morphology Normal, Anisocytosis 1+, Erythrocyte Sedimentation Rate 129H, Sodium Level 143, Potassium Level 5.3H, Chloride Level 115H, Carbon Dioxide Level 17L, Anion Gap 11, Blood Urea Nitrogen 23H, Creatinine 0.9, Estimat Glomerular Filtration Rate , Glucose Level 232H, Calcium Level 7.7L, Phosphorus Level 1.8L, Magnesium Level 2.2, Total Bilirubin 0.3, Aspartate Amino Transf (AST/SGOT) 20, Alanine Aminotransferase (ALT/SGPT) 25, Alkaline Phosphatase 122H, C-Reactive Protein, Quantitative 52.4H, Total Protein 6.4, Albumin 1.2L, Globulin 5.2, Albumin/Globulin Ratio 0.2L, Amylase Level 157H, Lipase 858H 12/15/18 06:00: Prothrombin Time 10.9, Prothromb Time International Ratio 1.0, Activated Partial Thromboplast Time 34H Height (Feet): 5 Height (Inches): 8.00 Weight (Pounds): 140 General Appearance: no apparent distress Cardiovascular: tachycardia Respiratory/Chest: decreased breath sounds Abdomen: distended Objective no change Migue Moreland MD Dec 15, 2018 14:43
--- NOTE | 2018-12-15 14:46 | NUR ---
RD ASSESSMENT & RECOMMENDATIONS SEE CARE ACTIVITY FOR COMPLETE ASSESSMENT DAILY ESTIMATED NEEDS: Needs based on critical care, wound/ 63kg 22-30 kcals/kg [id number] total kcals 1.5-2 g protein/kg 94-126 g total protein 25-30 mL/kg 5151-9332 total fluid mLs NUTRITION DIAGNOSIS: 1) Increased kcal and protein needs r/t wound healing as evidenced by pt w/ multiple advanced wounds, including Unstageable wound at L earlobe. 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 CURRENT TF:Glucerna 1.2 @65ml/hr x20 hrs ENTERAL NUTRITION RECOMMENDATIONS: Glucerna 1.2 @ 55ml/hr x 24 hrs + Prosource 1pkt BID to provide 1320ml, 1584kcal, 79+ 22g prot, 930ml free water - Rec Glucerna 1.2 @ goal rate of 55ml/hr x 24 hrs - Add Prosource 1pkt BID for protein needs - Flush per MD/ keep HOB >30degrees ADDITIONAL RECOMMENDATIONS: * REcalibrate bed scale wt for accurate CBW * Rec long acting insulin for improved BG control- POC glu 200's-300's * Wound care: add MITCHELL BID + Vit C 250mg BID * Check lytes daily, replete as needed
[2018-12-15 16:00] VITALS: BP 146/91
[2018-12-15] MEDS: DAPTOmycin 250 MG in NS 55 ML IV SCH (18:57)
--- NOTE | 2018-12-15 19:30 | NUR ---
HAND-OFF: Report given to SHAKIR Huston. Patient stable.
--- NOTE | 2018-12-15 19:31 | NUR ---
NURSE NOTES: Received bedside report from SHAKIR Serna.Patient stable,open eyes,non-verbal,SR on branch associate,trach-vent Portex 7,AC 18 TV 500 FiO2 25% PEEP 5,no respiratory distress noted,no s/s of pain,GT running with Glucerna1.2@ 55ml/hr no residual,BS active in all quadrants,colostomy bag on L side,suprapubic cath,IV on EDA PICC inserted 12/12/18 TKO,bed secured,call light within a reach,will continue to monitor.
[2018-12-15 20:00] VITALS: BP 105/63
--- NOTE | 2018-12-15 20:15 | NUR ---
HAND-OFF: Report given to SHAKIR Gong.Patient stable.
--- NOTE | 2018-12-15 20:20 | NUR ---
NURSE NOTES: PATIENT RESPONSE TO VERBALLY STIMULI, ON TRACH TO VENT AC18/TV500/FIO2 35%/PEEP5, O2 SATURATION OVER 98% NOTED, ABDOMEN DISTENDED, SOFT, NON TENDER, G TUBE INTACT AND PATENT, ON GLUCERNA 1.2 AT 55ML/HR, NO RESIDUE NOTED, COLOSTOMY BAG TO RLL, YELLOWISH BROWN SOFT AND LIQUID STOOL OUTED, SUPRAPUBIC CATH INTACT AND PATENT, YELLOW URINE OUTED, PICC LINE TO LEFT UPPER ARM, INTACT AND PATENT, KEPT HOB OVER 30 DEGREE, ON QUARTET BED, PROVIDED CALL LIGHT WITHIN REACH, WILL CONTINUE TO MONITOR.
--- NOTE | 2018-12-15 20:53 | General Progress Note ---
Assessment/Plan Assessment/Plan Assessment/Recs: # Leukocytosis/Elevated white blood cell count, unspecified likely related to underlying stress reaction, smoking, or underlying infection (especially if bandemia is noted) --> have reviewed peripheral smear and bandemia/neutrophilia noted --> continue antibiotics if they have been started by ID team --> monitor for resolution ---> WBC trend: 11-->16-->15 # Anemia of chronic disease due to underlying chronic medical issues, multifactorial --> Anemia workup has been reviewed, Ferritin 1573 --> No evidence of hemolysis is noted, peripheral smear has been reviewed. --> Hgb goal >7. Transfuse prn. --> Epogen or iron at this time is not particularly indicated --> Medications have been reviewed -->HGB trend: 7.8-->7.6-->6.2-->6.4->7.1-->8.7 # Thrombocytopenia - potential causes multifactorial, evaluate liver and viral etiologies to begin, also could be related to underlying medications patient has received. --> Hep panel and HIV negative --> US abd to evaluate for cirrhosis and hsm reviewed --> Peripheral smear ordered to evaluate for blasts /schistocytes --> abx and other meds have been reviewed --> ok for ppx if plt >50k w/ either heparin or lovenox --> Transfuse if Plt < 20k and fever, or if Plt < 10k without fever # Severe prerenal azotemia, on jeanette saline at 150 mL/hr. #Hypouricemia, appreciate Pulmonary financial sales consultant # Severe Sepsis, CXR: Probable small left pleural effusion, also evident on prior study 11/22/2017. -->appreciate ID recs # [email or web address], likely from UTI The timing of this note does not necessarily reflect the time of the patient was seen. Greatly appreciate consultation! Subjective Constitutional: Denies: no symptoms, chills, diaphoresis, fever, malaise, weakness, other HEENT: Denies: no symptoms, eye pain, blurred vision, tearing, double vision, ear pain, ear discharge, nose pain, nose congestion, throat pain, throat swelling, mouth pain, mouth swelling, other Cardiovascular: Denies: no symptoms, chest pain, edema, irregular heart rate, lightheadedness, palpitations, syncope, other Respiratory: Denies: no symptoms, cough, orthopnea, shortness of breath, SOB with excertion, SOB at rest, sputum, stridor, wheezing, other Gastrointestinal/Abdominal: Denies: no symptoms, abdomen distended, abdominal pain, black stools, tarry stools, blood in stool, constipated, diarrhea, difficulty swallowing, nausea, poor appetite, poor fluid intake, rectal bleeding , vomiting, other Genitourinary: Denies: no symptoms, burning, discharge, frequency, flank pain, hematuria, incontinence, pain, urgency, other Neurologic/Psychiatric: Denies: no symptoms, anxiety, depressed, emotional problems, headache, numbness, paresthesia, pre-existing deficit, seizure, tingling, tremors, weakness, other Endocrine: Denies: no symptoms, excessive sweating, flushing, intolerance to cold, intolerance to heat, increased hunger, increased thirst, increased urine, unexplained weight gain, unexplained weight loss, other Allergies: Coded Allergies: PENICILLINS (Unverified Allergy, Unknown, 02/26/16) POLYMYXIN B (Unverified Allergy, Unknown, 02/26/16) VANCOMYCIN (Unverified Allergy, Unknown, 02/26/16) Subjective 12/11: seen by bedside, vent dependent, leukocytosis, 11, hgb 7, will transfuse, no events 12/12: awake, comfortable wbc trending up at 16, no events 12/13: hgb 6.4, receiving transfusion, , wbc remains elevated. no acute events 12/14: seen by bedside, awake, comfortable low grade fever, wbc remains elevated at 15, bacteremia on IV Abx, hgb 7.1, will transfuse as needed 12/15: Wbc remains elevated, no events reported, hgb trending up. Objective Last 24 Hour Vital Signs Date Time Temp Pulse Resp B/P (MAP) Pulse Ox O2 Delivery O2 Flow Rate FiO2 12/15/18 19:07 112 34 35 12/15/18 17:05 99 146/91 12/15/18 16:53 99 28 35 12/15/18 16:00 35 12/15/18 16:00 98.1 96 26 146/91 (109) 96 12/15/18 16:00 Mechanical Ventilator 12/15/18 15:10 100 12/15/18 14:31 95 27 35 12/15/18 12:39 93 29 35 12/15/18 12:00 Mechanical Ventilator 12/15/18 12:00 35 12/15/18 12:00 97.9 86 24 109/66 (80) 100 12/15/18 11:37 88 12/15/18 10:35 97 30 35 12/15/18 08:44 94 31 35 12/15/18 08:39 87 105/64 12/15/18 08:37 87 12/15/18 08:36 87 105/64 12/15/18 08:00 35 12/15/18 08:00 Mechanical Ventilator 12/15/18 08:00 99.1 87 26 105/64 (78) 99 12/15/18 07:41 92 12/15/18 06:33 91 28 35 12/15/18 05:57 99.1 12/15/18 05:57 99.1 12/15/18 05:08 96 30 35 12/15/18 04:00 101.0 105 27 115/62 (79) 98 12/15/18 04:00 91 12/15/18 04:00 35 12/15/18 04:00 Mechanical Ventilator 12/15/18 03:00 99 31 35 12/15/18 01:37 106 29 35 12/15/18 00:00 Mechanical Ventilator 12/15/18 00:00 103 12/15/18 00:00 98.7 99 25 119/67 (84) 99 12/14/18 22:58 101 32 35 12/14/18 21:45 98.4 97 24 108/64 (79) 97 12/14/18 21:23 98 35 35 Intake and Output 12/14/18 12/15/18 18:59 06:59 Intake Total 1590 ml 1347.5 ml Output Total 1300 ml 1850 ml Balance 290 ml -502.5 ml Intake Free Water 200 ml IV Total 250 ml 632.5 ml Tube Feeding 780 ml 715 ml Other 360 ml Output Urine Total 900 ml 1500 ml Stool Total 400 ml 350 ml Laboratory Tests 12/15/18 04:00: White Blood Count 15.3H, Red Blood Count 2.81L, Hemoglobin 8.7L, Hematocrit 26.4L, Mean Corpuscular Volume 94, Mean Corpuscular Hemoglobin 30.8, Mean Corpuscular Hemoglobin Concent 32.8, Red Cell Distribution Width 16.4H, Platelet Count 139L, Mean Platelet Volume 9.6, Neutrophils (%) (Auto) , Lymphocytes (%) (Auto) , Monocytes (%) (Auto) , Eosinophils (%) (Auto) , Basophils (%) (Auto) , Differential Total Cells Counted 100, Neutrophils % ( Manual) 94H, Lymphocytes % (Manual) 4L, Monocytes % (Manual) 1, Eosinophils % ( Manual) 1, Basophils % (Manual) 0, Band Neutrophils 0, Platelet Estimate DecreasedL, Platelet Morphology Normal, Anisocytosis 1+, Erythrocyte Sedimentation Rate 129H, Sodium Level 143, Potassium Level 5.3H, Chloride Level 115H, Carbon Dioxide Level 17L, Anion Gap 11, Blood Urea Nitrogen 23H, Creatinine 0.9, Estimat Glomerular Filtration Rate , Glucose Level 232H, Calcium Level 7.7L, Phosphorus Level 1.8L, Magnesium Level 2.2, Total Bilirubin 0.3, Aspartate Amino Transf (AST/SGOT) 20, Alanine Aminotransferase (ALT/SGPT) 25, Alkaline Phosphatase 122H, C-Reactive Protein, Quantitative 52.4H, Total Protein 6.4, Albumin 1.2L, Globulin 5.2, Albumin/Globulin Ratio 0.2L, Amylase Level 157H, Lipase 858H 12/15/18 06:00: Prothrombin Time 10.9, Prothromb Time International Ratio 1.0, Activated Partial Thromboplast Time 34H Height (Feet): 5 Height (Inches): 8.00 Weight (Pounds): 140 Objective Physical Exam HEENT: Eyes were normal. ENT, mucous membranes were not dehydrated. NECK: Supple. There was no goiter. No mass. No lymphadenopathy. There was no JVD. No bruits. Carotid upstroke was 2+. LUNGS: Clear. Vent++ HEART: PMI was in the fifth left intercostal space in midclavicular line. There was normal S1 and normal S2. There was no murmur. No arrhythmia. No S3. No S4. No pericardial rub. ABDOMEN: Soft and nontender without organomegaly. There were no masses palpable. Normal bowel sounds without bruits. There was no guarding. No rebound tenderness. No ascites. No hernia. No CVA tenderness. Liver span was 8 cm, mostly nontender. EXTREMITIES: No cyanosis, no clubbing, and no edema. Extremities were warm. Adarsh Kim MD Dec 15, 2018 20:53
--- NOTE | 2018-12-15 21:05 | Cardiology Report ---
APPROVED REPORT EKG Measurement Heart [id number] Normal sinus rhythm Nonspecific ST and T wave abnormality Abnormal ECG
[2018-12-15] MEDS: Dyna-Hex 2% Top Sol 2oz TOPIC SCH (21:23)
--- NOTE | 2018-12-15 21:29 | Cardiology Progress Note ---
Assessment/Plan Assessment/Plan 1. Supraventricular tachycardia. recurrent 12/09 and 12/10 2. Renal insufficiency. 3. Hyponatremia. 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 6. History of bowel resection. 7. History of CVA. 8. Chronic tracheostomy. 9. Diabetes mellitus. 10 pancreatitis 11. anemai bp borderline cortisol was normal on low dose Cardizem via gtube and dig (will decrease bb gradully ) dig level will repat tomorrow no further svt on the present regimen heart rate much imporved so far Subjective ROS Limited/Unobtainable: Yes Subjective on the vent Objective Last 24 Hour Vital Signs Date Time Temp Pulse Resp B/P (MAP) Pulse Ox O2 Delivery O2 Flow Rate FiO2 12/15/18 21:23 104 105/63 12/15/18 21:15 98 27 35 12/15/18 19:07 112 34 35 12/15/18 17:05 99 146/91 12/15/18 16:53 99 28 35 12/15/18 16:00 35 12/15/18 16:00 98.1 96 26 146/91 (109) 96 12/15/18 16:00 Mechanical Ventilator 12/15/18 15:10 100 12/15/18 14:31 95 27 35 12/15/18 12:39 93 29 35 12/15/18 12:00 Mechanical Ventilator 12/15/18 12:00 35 12/15/18 12:00 97.9 86 24 109/66 (80) 100 12/15/18 11:37 88 12/15/18 10:35 97 30 35 12/15/18 08:44 94 31 35 12/15/18 08:39 87 105/64 12/15/18 08:37 87 12/15/18 08:36 87 105/64 12/15/18 08:00 35 12/15/18 08:00 Mechanical Ventilator 12/15/18 08:00 99.1 87 26 105/64 (78) 99 12/15/18 07:41 92 12/15/18 06:33 91 28 35 12/15/18 05:57 99.1 12/15/18 05:57 99.1 12/15/18 05:08 96 30 35 12/15/18 04:00 101.0 105 27 115/62 (79) 98 12/15/18 04:00 91 12/15/18 04:00 35 12/15/18 04:00 Mechanical Ventilator 12/15/18 03:00 99 31 35 12/15/18 01:37 106 29 35 12/15/18 00:00 Mechanical Ventilator 12/15/18 00:00 103 12/15/18 00:00 98.7 99 25 119/67 (84) 99 12/14/18 22:58 101 32 35 12/14/18 21:45 98.4 97 24 108/64 (79) 97 General Appearance: no apparent distress, on vent, patient on isolation Extremities: no swelling Intake and Output 12/14/18 12/15/18 18:59 06:59 Intake Total 1590 ml 1347.5 ml Output Total 1300 ml 1850 ml Balance 290 ml -502.5 ml Intake Free Water 200 ml IV Total 250 ml 632.5 ml Tube Feeding 780 ml 715 ml Other 360 ml Output Urine Total 900 ml 1500 ml Stool Total 400 ml 350 ml Laboratory Tests Test 12/15/18 04:00 12/15/18 06:00 White Blood Count 15.3 K/UL (4.8-10.8) H Red Blood Count 2.81 M/UL (4.70-6.10) L Hemoglobin 8.7 G/DL (14.2-18.0) L Hematocrit 26.4 % (42.0-52.0) L Mean Corpuscular Volume 94 FL (80-99) Mean Corpuscular Hemoglobin 30.8 PG (27.0-31.0) Mean Corpuscular Hemoglobin Concent 32.8 G/DL (32.0-36.0) Red Cell Distribution Width 16.4 % (11.6-14.8) H Platelet Count 139 K/UL (150-450) L Mean Platelet Volume 9.6 FL (6.5-10.1) Neutrophils (%) (Auto) % (45.0-75.0) Lymphocytes (%) (Auto) % (20.0-45.0) Monocytes (%) (Auto) % (1.0-10.0) Eosinophils (%) (Auto) % (0.0-3.0) Basophils (%) (Auto) % (0.0-2.0) Differential Total Cells Counted 100 Neutrophils % (Manual) 94 % (45-75) H Lymphocytes % (Manual) 4 % (20-45) L Monocytes % (Manual) 1 % (1-10) Eosinophils % (Manual) 1 % (0-3) Basophils % (Manual) 0 % (0-2) Band Neutrophils 0 % (0-8) Platelet Estimate Decreased L Platelet Morphology Normal Anisocytosis 1+ Erythrocyte Sedimentation Rate 129 MM/HR (0-20) H Sodium Level 143 MMOL/L (136-145) Potassium Level 5.3 MMOL/L (3.5-5.1) H Chloride Level 115 MMOL/L (98-107) H Carbon Dioxide Level 17 MMOL/L (21-32) L Anion Gap 11 mmol/L (5-15) Blood Urea Nitrogen 23 mg/dL (7-18) H Creatinine 0.9 MG/DL (0.55-1.30) Estimat Glomerular Filtration Rate mL/min (>60) Glucose Level 232 MG/DL (74-106) H Calcium Level 7.7 MG/DL (8.5-10.1) L Phosphorus Level 1.8 MG/DL (2.5-4.9) L Magnesium Level 2.2 MG/DL (1.8-2.4) Total Bilirubin 0.3 MG/DL (0.2-1.0) Aspartate Amino Transf (AST/SGOT) 20 U/L (15-37) Alanine Aminotransferase (ALT/SGPT) 25 U/L (12-78) Alkaline Phosphatase 122 U/L (46-116) H C-Reactive Protein, Quantitative 52.4 mg/dL (0.00-0.90) H Total Protein 6.4 G/DL (6.4-8.2) Albumin 1.2 G/DL (3.4-5.0) L Globulin 5.2 g/dL Albumin/Globulin Ratio 0.2 (1.0-2.7) L Amylase Level 157 U/L (25-115) H Lipase 858 U/L (73-393) H Prothrombin Time 10.9 SEC (9.30-11.50) Prothromb Time International Ratio 1.0 (0.9-1.1) Activated Partial Thromboplast Time 34 SEC (23-33) H Donny Kelley MD Dec 15, 2018 21:29
--- NOTE | 2018-12-15 21:30 | NUR ---
NURSE NOTES: SEEN THE PATIENT BY DR. CHAVEZ.
--- NOTE | 2018-12-15 22:00 | NUR ---
NURSE NOTES: REPOSITIONED, ORAL CARE WAS DONE, CHANGED COLOSTOMY BAG PER PROTOCOLS.
--- NOTE | 2018-12-15 22:20 | NUR ---
NURSE NOTES: SEEN THE PATIENT BY DR. BOBO.
[2018-12-16] VITALS: BP 110/64
[2018-12-16] MEDS: NovoLOG Insulin Flexpen SUBQ SCH ×6 (00:34→20:41)
--- NOTE | 2018-12-16 01:00 | NUR ---
NURSE NOTES: PATIENT ASLEEP STATUS, NO PAIN OR DISTRESS NOTED AT THIS TIME.
--- NOTE | 2018-12-16 03:30 | Progress Note ---
DATE: 12/15/2018 SUBJECTIVE: The patient is afebrile, persistently tachycardic and hemodynamically stable. PHYSICAL EXAMINATION: VITAL SIGNS: Blood pressure 146/91, his pulse is 96, respirations 26, and temperature 98.1. HEENT: Eyes were normal. ENT, mucous membranes were moist and intact. NECK: Supple with no JVD without lymph nodes. Tracheostomy site is clean. LUNGS: Clear without rhonchi, rales, or wheezing. Secretions are small, thin, and barros. HEART: Normal sounds with regular heartbeat. There is no S3, S4, or pericardial rub. ABDOMEN: Soft and nontender with normal bowel sounds. Gastrostomy site is clean. EXTREMITIES: Warm without cyanosis, clubbing, or edema. LABORATORY AND DIAGNOSTIC DATA: His hemoglobin is 8.2, hematocrit 26.4 with MCV of 94, WBC of 15.3, and platelets 139. BUN and creatinine are 23 and 0.9 respectively. Sodium is 143, potassium 5.3 chloride 115, CO2 17. Calcium is 7.7. Phosphorus is 1.8 and magnesium is 2.2. SGOT, SGPT and alkaline phosphatase are high. Amylase and lipase is 157 and 858. . Chest x-ray done today revealed bilateral pleural effusion, . Chest x-ray was unchanged from previous x-ray and has bilateral atelectasis and infiltrates. Repeat laboratory tests will be done in the morning. . Neema Hutchins M.D. DR: Zee JOB#: [id number] CC:
--- NOTE | 2018-12-16 03:30 | NUR ---
NURSE NOTES: MORNING CARE WAS DONE, SUCTIONED AND ORAL CARE WAS DONE.
[2018-12-16 04:00] VITALS: BP 117/72
[2018-12-16] MEDS: Aztreonam Inj 1 GM in D5W 55 ML IVPB SCH ×3 (05:43→22:00)
[2018-12-16 06:09] LABS: HEMATOCRIT 29.3 % (42.0-52.0); HEMOGLOBIN 9.3 G/DL (14.2-18.0); MEAN CORPUSCULAR VOLUME 96 FL (80-99); PLATELET COUNT 143 K/UL (150-450); RED BLOOD COUNT 3.07 M/UL (4.70-6.10); RED CELL DISTRIBUTION WIDTH 16.7 % (11.6-14.8); WHITE BLOOD COUNT 16.2 K/UL (4.8-10.8)
[2018-12-16 06:22] LABS: ALANINE AMINOTRANSFERASE 28 U/L (12-78); ALBUMIN 1.3 G/DL (3.4-5.0); ALBUMIN/GLOBULIN RATIO 0.2 (1.0-2.7); ALKALINE PHOSPHATASE 115 U/L (46-116); AMYLASE 168 U/L (25-115); ANION GAP 10 mmol/L (5-15); ASPARTATE AMINO TRANSFERASE 33 U/L (15-37); BILIRUBIN,TOTAL 0.2 MG/DL (0.2-1.0); BLOOD UREA NITROGEN 28 mg/dL (7-18); CALCIUM 8.3 MG/DL (8.5-10.1); CARBON DIOXIDE 19 MMOL/L (21-32); CHLORIDE 119 MMOL/L (98-107); CREATININE 0.9 MG/DL (0.55-1.30); PHOSPHORUS 2.3 MG/DL (2.5-4.9); POTASSIUM 4.8 MMOL/L (3.5-5.1); SODIUM 148 MMOL/L (136-145)
--- NOTE | 2018-12-16 06:28 | NUR ---
NURSE NOTES: NO ACUTE DISTRESS NOTED AT THIS SHIFT.
--- NOTE | 2018-12-16 07:10 | NUR ---
HAND-OFF: Report given to SHAKIR Dow.
--- NOTE | 2018-12-16 07:11 | NUR ---
NURSE NOTES: Received patient from SHAKIR Garcia. Patient in bed and awake. Trach to vent dependent. In no respiratory distress. seamer panty hose in placed. Gtube in placed and tolerating feeding. Colostomy on RLL. Suprapubic catheter in placed and draining well. PICC on EDA. Bed in lowest position with side rails up. Will continue to follow plan of care.
[2018-12-16 08:00] VITALS: BP 110/71
--- NOTE | 2018-12-16 08:02 | NUR ---
RESPIRATORY NOTE: received vent dependent pt with trach size portex 7, secured via trach tie/guard with no redness around stoma. pt presents thick, white/yellow secretions upon sxn and bilateral rhonchi on auscultation. vent is plugged into red outlet with alarms on and audible. ambu bag at bedside and will cont to monitor.
[2018-12-16] MEDS: Heparin 5000 units/ml inj SUBQ SCH ×2 (08:30→20:42)
[2018-12-16] MEDS: Phospha 250 Neutral tab GT SCH ×3 (08:31→17:37)
[2018-12-16] MEDS: Atenolol 25mg tab ORAL SCH ×2 (08:31→20:39)
[2018-12-16] MEDS: Pantoprazole Inj IVP SCH (08:31)
[2018-12-16] MEDS: dilTIAZem HCl 30mg tab GT SCH ×2 (08:32→17:38)
--- NOTE | 2018-12-16 09:59 | General Progress Note ---
Assessment/Plan Problem List: (1) Tracheostomy in place ICD Codes: Z98.89 - Other specified postprocedural states SNOMED: 788187560 (2) Acute and chronic respiratory failure ICD Codes: J96.20 - Acute and chronic respiratory failure, unspecified whether with hypoxia or hypercapnia SNOMED: 73169759, 88486757 (3) Decubitus ulcer of sacral region, stage 2 ICD Codes: L89.152 - Pressure ulcer of sacral region, stage 2 SNOMED: 326675161, 512954610 (4) Cerebral vascular disease ICD Codes: I67.9 - Cerebrovascular disease, unspecified SNOMED: 57738820 (5) Colostomy care ICD Codes: Z43.3 - Encounter for attention to colostomy SNOMED: 518608140 (6) Hypertension ICD Codes: I10 - Essential (primary) hypertension SNOMED: 00113215 (7) Diabetes mellitus, type II ICD Codes: E11.9 - Type 2 diabetes mellitus without complications SNOMED: 37658275 (8) Feeding by G-tube ICD Codes: Z93.1 - Gastrostomy status SNOMED: 148756585, 673356946 (9) Anemia ICD Codes: D64.9 - Anemia, unspecified SNOMED: 846103983 (10) Pancreatitis ICD Codes: K85.90 - Acute pancreatitis without necrosis or infection, unspecified SNOMED: 16724724 Assessment/Plan fu H&H ppi daily lopid GTF fu labs tumor markers Subjective ROS Limited/Unobtainable: No Allergies: Coded Allergies: PENICILLINS (Unverified Allergy, Unknown, 02/26/16) POLYMYXIN B (Unverified Allergy, Unknown, 02/26/16) VANCOMYCIN (Unverified Allergy, Unknown, 02/26/16) Objective Last 24 Hour Vital Signs Date Time Temp Pulse Resp B/P (MAP) Pulse Ox O2 Delivery O2 Flow Rate FiO2 12/16/18 09:03 129 28 35 12/16/18 08:32 130 110/71 12/16/18 08:31 130 110/71 12/16/18 08:31 130 12/16/18 08:00 35 12/16/18 08:00 Mechanical Ventilator 12/16/18 08:00 128 26 35 12/16/18 05:30 122 24 35 12/16/18 04:10 103 22 35 12/16/18 04:08 109 12/16/18 04:00 97.1 103 30 117/72 (87) 100 12/16/18 04:00 Mechanical Ventilator 12/16/18 04:00 35 12/16/18 00:49 87 24 35 12/16/18 00:00 97.3 103 25 110/64 (79) 100 12/16/18 00:00 Mechanical Ventilator 12/15/18 23:39 95 12/15/18 23:24 97 24 35 12/15/18 21:23 104 105/63 12/15/18 21:15 98 27 35 12/15/18 20:00 35 12/15/18 20:00 Mechanical Ventilator 12/15/18 20:00 98.1 104 28 105/63 (77) 98 12/15/18 19:11 111 12/15/18 19:07 112 34 35 12/15/18 17:05 99 146/91 12/15/18 16:53 99 28 35 12/15/18 16:00 35 12/15/18 16:00 98.1 96 26 146/91 (109) 96 12/15/18 16:00 Mechanical Ventilator 12/15/18 15:10 100 12/15/18 14:31 95 27 35 12/15/18 12:39 93 29 35 12/15/18 12:00 Mechanical Ventilator 12/15/18 12:00 35 12/15/18 12:00 97.9 86 24 109/66 (80) 100 12/15/18 11:37 88 12/15/18 10:35 97 30 35 Intake and Output 12/15/18 12/16/18 19:00 07:00 Intake Total 1190 ml 770 ml Output Total 1650 ml 1350 ml Balance -460 ml -580 ml Intake Free Water 150 ml 60 ml IV Total 310 ml 110 ml Tube Feeding 730 ml 550 ml Other 50 ml Output Urine Total 900 ml 400 ml Stool Total 750 ml 950 ml Laboratory Tests 12/16/18 03:45: White Blood Count 16.2H, Red Blood Count 3.07L, Hemoglobin 9.3L, Hematocrit 29.3L, Mean Corpuscular Volume 96, Mean Corpuscular Hemoglobin 30.2, Mean Corpuscular Hemoglobin Concent 31.6L, Red Cell Distribution Width 16.7H, Platelet Count 143L, Mean Platelet Volume 9.8, Neutrophils (%) (Auto) , Lymphocytes (%) (Auto) , Monocytes (%) (Auto) , Eosinophils (%) (Auto) , Basophils (%) (Auto) , Differential Total Cells Counted 100, Neutrophils % ( Manual) 97H, Lymphocytes % (Manual) 3L, Monocytes % (Manual) 0L, Eosinophils % ( Manual) 0, Basophils % (Manual) 0, Band Neutrophils 0, Platelet Estimate DecreasedL, Platelet Morphology Normal, Anisocytosis 1+, Erythrocyte Sedimentation Rate 125H, Sodium Level 148H, Potassium Level 4.8, Chloride Level 119H, Carbon Dioxide Level 19L, Anion Gap 10, Blood Urea Nitrogen 28H, Creatinine 0.9, Estimat Glomerular Filtration Rate , Glucose Level 230H, Calcium Level 8.3L, Phosphorus Level 2.3L, Magnesium Level 1.8, Total Bilirubin 0.2, Aspartate Amino Transf (AST/SGOT) 33, Alanine Aminotransferase (ALT/SGPT) 28, Alkaline Phosphatase 115, C-Reactive Protein, Quantitative 33.3H, Total Protein 7.1, Albumin 1.3L, Globulin 5.8, Albumin/Globulin Ratio 0.2L, Amylase Level 168H, Lipase 875H, Digoxin Level 0.9 Height (Feet): 5 Height (Inches): 8.00 Weight (Pounds): 140 General Appearance: lethargic EENT: normal ENT inspection Neck: supple Cardiovascular: normal rate Respiratory/Chest: decreased breath sounds Abdomen: non tender, soft, other - GT in place Extremities: non-tender Benjamin Jackson MD Dec 16, 2018 09:59
[2018-12-16] MEDS ORDERED: Potassium Phosphate 15 MM in NS 275 ML IV ONE (10:00)
--- NOTE | 2018-12-16 10:05 | Pulmonolgy Critical Care Note ---
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 Respiratory: monitor respiratory rate, adjust FIO2, CXR Cardiac: continue to monitor HR/BP Renal: F/U I&O Infectious Disease: check cultures, continue antibiotics, other - sputum has pseudomonas Gastrointestinal: continue feedings/current rate Endocrine: monitor blood sugar Hematologic: monitor H/H Neurologic: PRN Morphine, keep patient comfortable Prophylaxis: Protonix Disposition: keep in ICU Notes Reviewed: cardio Discussed with: nurses, consultants, case sealersenior contracts manager - Objective Last 24 Hour Vital Signs Date Time Temp Pulse Resp B/P (MAP) Pulse Ox O2 Delivery O2 Flow Rate FiO2 12/16/18 09:03 129 28 35 12/16/18 08:32 130 110/71 12/16/18 08:31 130 110/71 12/16/18 08:31 130 12/16/18 08:00 35 12/16/18 08:00 Mechanical Ventilator 12/16/18 08:00 128 26 35 12/16/18 05:30 122 24 35 12/16/18 04:10 103 22 35 12/16/18 04:08 109 12/16/18 04:00 97.1 103 30 117/72 (87) 100 12/16/18 04:00 Mechanical Ventilator 12/16/18 04:00 35 12/16/18 00:49 87 24 35 12/16/18 00:00 97.3 103 25 110/64 (79) 100 12/16/18 00:00 Mechanical Ventilator 12/15/18 23:39 95 12/15/18 23:24 97 24 35 12/15/18 21:23 104 105/63 12/15/18 21:15 98 27 35 12/15/18 20:00 35 12/15/18 20:00 Mechanical Ventilator 12/15/18 20:00 98.1 104 28 105/63 (77) 98 12/15/18 19:11 111 12/15/18 19:07 112 34 35 12/15/18 17:05 99 146/91 12/15/18 16:53 99 28 35 12/15/18 16:00 35 12/15/18 16:00 98.1 96 26 146/91 (109) 96 12/15/18 16:00 Mechanical Ventilator 12/15/18 15:10 100 12/15/18 14:31 95 27 35 12/15/18 12:39 93 29 35 12/15/18 12:00 Mechanical Ventilator 12/15/18 12:00 35 12/15/18 12:00 97.9 86 24 109/66 (80) 100 12/15/18 11:37 88 12/15/18 10:35 97 30 35 Status: awake Condition: critical, improving HEENT: atraumatic Lungs: rales, rhonchi Heart: HR/BP stable Abdomen: soft, active bowel sounds Extremities: no C/C/E, edema Decubiti: location Micro: Microbiology Date/Time Source Procedure Growth Status 12/14/18 15:30 Blood Blood Culture - Preliminary NO GROWTH AFTER 24 HOURS Resulted 12/14/18 15:15 Blood Blood Culture - Preliminary NO GROWTH AFTER 24 HOURS Resulted Accucheck: 331 Critical Care - Subjective ROS Limited/Unobtainable: Yes Interval Events: awake, comfortable EKG Rhythm: Sinus Rhythm FI02: 35 Vent Support Breath Rate: 18 Vent Support Mode: AC Vent Tidal Volume: 500 Sputum Amount: Small PEEP: 5.0 PIP: 24 Tube Feeding Amount: 55 I&O: Intake and Output 12/15/18 12/16/18 19:00 07:00 Intake Total 1190 ml 770 ml Output Total 1650 ml 1350 ml Balance -460 ml -580 ml Intake Free Water 150 ml 60 ml IV Total 310 ml 110 ml Tube Feeding 730 ml 550 ml Other 50 ml Output Urine Total 900 ml 400 ml Stool Total 750 ml 950 ml CXR: no change Labs: Laboratory Tests Test 12/16/18 03:45 White Blood Count 16.2 K/UL (4.8-10.8) H Red Blood Count 3.07 M/UL (4.70-6.10) L Hemoglobin 9.3 G/DL (14.2-18.0) L Hematocrit 29.3 % (42.0-52.0) L Mean Corpuscular Volume 96 FL (80-99) Mean Corpuscular Hemoglobin 30.2 PG (27.0-31.0) Mean Corpuscular Hemoglobin Concent 31.6 G/DL (32.0-36.0) L Red Cell Distribution Width 16.7 % (11.6-14.8) H Platelet Count 143 K/UL (150-450) L Mean Platelet Volume 9.8 FL (6.5-10.1) Neutrophils (%) (Auto) % (45.0-75.0) Lymphocytes (%) (Auto) % (20.0-45.0) Monocytes (%) (Auto) % (1.0-10.0) Eosinophils (%) (Auto) % (0.0-3.0) Basophils (%) (Auto) % (0.0-2.0) Differential Total Cells Counted 100 Neutrophils % (Manual) 97 % (45-75) H Lymphocytes % (Manual) 3 % (20-45) L Monocytes % (Manual) 0 % (1-10) L Eosinophils % (Manual) 0 % (0-3) Basophils % (Manual) 0 % (0-2) Band Neutrophils 0 % (0-8) Platelet Estimate Decreased L Platelet Morphology Normal Anisocytosis 1+ Erythrocyte Sedimentation Rate 125 MM/HR (0-20) H Sodium Level 148 MMOL/L (136-145) H Potassium Level 4.8 MMOL/L (3.5-5.1) Chloride Level 119 MMOL/L (98-107) H Carbon Dioxide Level 19 MMOL/L (21-32) L Anion Gap 10 mmol/L (5-15) Blood Urea Nitrogen 28 mg/dL (7-18) H Creatinine 0.9 MG/DL (0.55-1.30) Estimat Glomerular Filtration Rate mL/min (>60) Glucose Level 230 MG/DL (74-106) H Calcium Level 8.3 MG/DL (8.5-10.1) L Phosphorus Level 2.3 MG/DL (2.5-4.9) L Magnesium Level 1.8 MG/DL (1.8-2.4) Total Bilirubin 0.2 MG/DL (0.2-1.0) Aspartate Amino Transf (AST/SGOT) 33 U/L (15-37) Alanine Aminotransferase (ALT/SGPT) 28 U/L (12-78) Alkaline Phosphatase 115 U/L (46-116) C-Reactive Protein, Quantitative 33.3 mg/dL (0.00-0.90) H Total Protein 7.1 G/DL (6.4-8.2) Albumin 1.3 G/DL (3.4-5.0) L Globulin 5.8 g/dL Albumin/Globulin Ratio 0.2 (1.0-2.7) L Amylase Level 168 U/L (25-115) H Lipase 875 U/L (73-393) H Digoxin Level 0.9 NG/ML (0.5-2.0) Abhishek Guerra MD Dec 16, 2018 10:05
[2018-12-16] MEDS: Tobramycin for inhalation INH SCH ×2 (11:10→21:59)
--- NOTE | 2018-12-16 11:19 | Surgery Progress Note ---
Surgery Progress Note Subjective Additional Comments Patient febrile, worsening leukocytosis, mild increase in amylase and lipase, labs abnormal. Exam unchanged. Objective Last 24 Hour Vital Signs Date Time Temp Pulse Resp B/P (MAP) Pulse Ox O2 Delivery O2 Flow Rate FiO2 12/16/18 11:12 100 31 98 Mechanical Ventilator 35 12/16/18 11:02 102 28 99 Mechanical Ventilator 35 12/16/18 11:01 95 30 35 12/16/18 09:03 129 28 35 12/16/18 08:32 130 110/71 12/16/18 08:31 130 110/71 12/16/18 08:31 130 12/16/18 08:00 35 12/16/18 08:00 99.5 108 24 110/71 (84) 100 12/16/18 08:00 Mechanical Ventilator 12/16/18 08:00 128 26 35 12/16/18 05:30 122 24 35 12/16/18 04:10 103 22 35 12/16/18 04:08 109 12/16/18 04:00 97.1 103 30 117/72 (87) 100 12/16/18 04:00 Mechanical Ventilator 12/16/18 04:00 35 12/16/18 00:49 87 24 35 12/16/18 00:00 97.3 103 25 110/64 (79) 100 12/16/18 00:00 Mechanical Ventilator 12/15/18 23:39 95 12/15/18 23:24 97 24 35 12/15/18 21:23 104 105/63 12/15/18 21:15 98 27 35 12/15/18 20:00 35 12/15/18 20:00 Mechanical Ventilator 12/15/18 20:00 98.1 104 28 105/63 (77) 98 12/15/18 19:11 111 12/15/18 19:07 112 34 35 12/15/18 17:05 99 146/91 12/15/18 16:53 99 28 35 12/15/18 16:00 35 12/15/18 16:00 98.1 96 26 146/91 (109) 96 12/15/18 16:00 Mechanical Ventilator 12/15/18 15:10 100 12/15/18 14:31 95 27 35 12/15/18 12:39 93 29 35 12/15/18 12:00 Mechanical Ventilator 12/15/18 12:00 35 12/15/18 12:00 97.9 86 24 109/66 (80) 100 12/15/18 11:37 88 I&O Intake and Output 12/15/18 12/16/18 19:00 07:00 Intake Total 1190 ml 770 ml Output Total 1650 ml 1350 ml Balance -460 ml -580 ml Intake Free Water 150 ml 60 ml IV Total 310 ml 110 ml Tube Feeding 730 ml 550 ml Other 50 ml Output Urine Total 900 ml 400 ml Stool Total 750 ml 950 ml Dressing: other Wound: other Drains: other Cardiovascular: RSR Respiratory: decreased breath sounds Abdomen: soft, present bowel sounds, non-distended Extremities: other Laboratory Tests Test 12/16/18 03:45 White Blood Count 16.2 K/UL (4.8-10.8) H Red Blood Count 3.07 M/UL (4.70-6.10) L Hemoglobin 9.3 G/DL (14.2-18.0) L Hematocrit 29.3 % (42.0-52.0) L Mean Corpuscular Volume 96 FL (80-99) Mean Corpuscular Hemoglobin 30.2 PG (27.0-31.0) Mean Corpuscular Hemoglobin Concent 31.6 G/DL (32.0-36.0) L Red Cell Distribution Width 16.7 % (11.6-14.8) H Platelet Count 143 K/UL (150-450) L Mean Platelet Volume 9.8 FL (6.5-10.1) Neutrophils (%) (Auto) % (45.0-75.0) Lymphocytes (%) (Auto) % (20.0-45.0) Monocytes (%) (Auto) % (1.0-10.0) Eosinophils (%) (Auto) % (0.0-3.0) Basophils (%) (Auto) % (0.0-2.0) Differential Total Cells Counted 100 Neutrophils % (Manual) 97 % (45-75) H Lymphocytes % (Manual) 3 % (20-45) L Monocytes % (Manual) 0 % (1-10) L Eosinophils % (Manual) 0 % (0-3) Basophils % (Manual) 0 % (0-2) Band Neutrophils 0 % (0-8) Platelet Estimate Decreased L Platelet Morphology Normal Anisocytosis 1+ Erythrocyte Sedimentation Rate 125 MM/HR (0-20) H Sodium Level 148 MMOL/L (136-145) H Potassium Level 4.8 MMOL/L (3.5-5.1) Chloride Level 119 MMOL/L (98-107) H Carbon Dioxide Level 19 MMOL/L (21-32) L Anion Gap 10 mmol/L (5-15) Blood Urea Nitrogen 28 mg/dL (7-18) H Creatinine 0.9 MG/DL (0.55-1.30) Estimat Glomerular Filtration Rate mL/min (>60) Glucose Level 230 MG/DL (74-106) H Calcium Level 8.3 MG/DL (8.5-10.1) L Phosphorus Level 2.3 MG/DL (2.5-4.9) L Magnesium Level 1.8 MG/DL (1.8-2.4) Total Bilirubin 0.2 MG/DL (0.2-1.0) Aspartate Amino Transf (AST/SGOT) 33 U/L (15-37) Alanine Aminotransferase (ALT/SGPT) 28 U/L (12-78) Alkaline Phosphatase 115 U/L (46-116) C-Reactive Protein, Quantitative 33.3 mg/dL (0.00-0.90) H Total Protein 7.1 G/DL (6.4-8.2) Albumin 1.3 G/DL (3.4-5.0) L Globulin 5.8 g/dL Albumin/Globulin Ratio 0.2 (1.0-2.7) L Amylase Level 168 U/L (25-115) H Lipase 875 U/L (73-393) H Digoxin Level 0.9 NG/ML (0.5-2.0) Plan Problems: (1) Decubitus skin ulcer Assessment & Plan: Pt presented on admission with multiple pressure injuries and Skin erosion. Pt has trach and no evidence of skin breakdown noted under trach collar. Unstageable pressure injury noted to L earlobe. Stable dry brown eschar noted(L) 0.7cm x (W)0.5cm. Gross erythema with denudement and multiple scattered partial thickness wounds noted to buttocks and base of scrotum extending into both posterior upper thighs.Moderate amt sanguineous exudate noted upon removal of drsgs. 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 Moderate amt sanguineous exudate noted (L)3cm x (W)1cm x (D)7.4cm.Erythema periwound secondary to skin erosions. Partially opened DTPI L ischium .Base of wound purple,fluctuant with red borders.Open areas at base of this wound are beefy red in colour.Moderate amt sanguineous exudate noted.(L)7cm x (W)6.8cm. DTPI R ischium.Wound is fluctuant-purple in center with surrounding Maroon colour, and is partially opened with a small area of 5% that is necrotic.(L) 6.5cm x (W)5.5cm. Red skin erosion periwound. Partial thickness pressure injury L hip. Base of wound is moist -viable. Edges adherent and dry. Periwound without erythema or induration(L)1.2cm x (W)0.5cm. Elongate partial thickness wound posterior upper L thigh .Base of wound is moist -viable .Small amt sanguineous exudate noted. (+) maceration along borders. Erythema without induration or elevation in skin temp noted.(L)2cm x (W )9.4cm. DTPI noted to R heel .Base of injury is indurated and maroon in colour. Periwound is firm without erythema. (L)1.5cm x (W)1cm.R heel without evidence of skin breakdown. Tx.Plan: Cleanse Sacrum with Saline. Loosely pack with Hydrogel impregnated Kerlix. Apply Triad Paste periwound. Cover with ABD pad. Daily and prn. Cleanse R and L ischial wounds with Saline. Apply Moisture Barrier Paste.Cover with abd pads Daily and prn. Apply Moisture Barrier to skin erosions on buttocks,scrotum, and posterior aspects of both thighs.Cover with ABD pad daily and prn. Cleanse wound L hip with Saline. Apply Moisture Barrier paste .Cover with Optifoam drsg Daily and prn. Cleanse wound posterior upper L thigh with saline .Apply Hydrogel. Cover with Optifoam drsg Daily and prn. Apply Cavilon Skin Barrier to L earlobe daily. Please monitor. Apply Cavilon Skin Barrier to L heel. Cover with Optifoam drsg. Change every 7 days and prn. Apply Cavilon Skin Barrier to R heel. Cover with Optifoam drsg .Change every 7 days and prn. Air fluidized mattress. Reposition every 2hours or as tolerated. Off-load heels with pillow. (2) Acute and chronic respiratory failure Assessment & Plan: cont with breathing treatments trach stable trach site clean will change dressings daily (3) Acute pancreatitis Assessment & Plan: Findings consistent with uncomplicated nonnecrotizing acute pancreatitis. No evidence of associated peripancreatic abscess Surgical changes as described, including right lower quadrant ileostomy, subtotal colectomy with Haroldo procedure. Wall thickening of the Haroldo pouch. This could indicate inflammation. However, this is also present on both of the prior 2 exams and may be baseline for this patient Evidence of mild anasarca, with edema of the subcutaneous fat. This is a new finding Chronic appearing decubitus changes of the bilateral ischia. Correlate with clinical findings Complete left lower lobe consolidation. This is similar to both of the prior CTs , and is likely a chronic finding. There is progressive chronic interstitial fibrotic change involving the right middle lobe. There is also right lower lobe granulomatous calcification Extensive pulmonary parenchymal opacities bilaterally may reflect acute inflammation/infection, edema, progressive chronic scarring, or combination of the above. These are considerably more extensive than on the prior study Trace bilateral pleural fluid New finding of nonobstructive right renal collecting system calculs 4 mm calculus within the bladder lumen. This may represent a bladder calculus, a calculus and left ureteral orifice, or recently passed stone. If either of the latter, no evidence of resultant hydronephrosis or hydroureter Suprapubic catheter. This is a new finding since the 2016 exams. Interim removal of previously demonstrated Bledsoe catheter Gastrostomy Left renal cysts. Subcentimeter low-attenuation right renal lesions, too small to characterize, most likely benign simple cysts. No further follow-up necessary elevated amylase/lipase mild increase leukocytosis GNR Bacteremia transfused anemia Unfortunately patient not able to participate in exam and difficult to identify if clinically pancreatitis or just laboratory data. Recent CT with uncomplicated pancreatitis but enzymes still remain elevated. Patient tolerated tube feeds. Patient with gram-negative belle bacteremia likely from UTI. Patient remains febrile intermittently with worsening leukocytosis on IV antibiotics. -no acute surgical intervention planned -transfuse as per hematology -Abx as per ID -trend lip/[place] - recent finding based on CT given patient cannot given history or participate in exam. CT with uncomplicated pancreatitis. okay for diet / feeds for now. IV fluids Javier Ricardo Dec 16, 2018 11:19
[2018-12-16 12:00] VITALS: BP 104/63
[2018-12-16] MEDS: Acetaminophen 650mg/20.3ml GT PRN (12:11)
--- NOTE | 2018-12-16 14:22 | Nephrology Progress Note ---
Assessment/Plan Problem List: (1) ATN (acute tubular necrosis) (2) Anemia (3) Feeding by G-tube (4) Acute and chronic respiratory failure (5) UTI (urinary tract infection) (6) Hyponatremia Assessment Patient have mainly Pre Renal Azotemia with possible underlying CKD- Low Na partly depletional, partly due to Hyperglycemia RESOLVED Other conditions as outlined: (1) Acute and chronic respiratory failure ([id number]) (2) Sepsis (3) Malnutrition and HypoAlbuminemia (4) UTI (urinary tract infection) (5) Anemia (6) Diabetes mellitus, type II (7) Colostomy care (8) Cerebral vascular disease (9) Decubitus ulcer of sacral region, stage 2 (10) Feeding by G-tube (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 Plan transfused total 2 units IV KCL , Mag , Phos as needed Hydrate- change IV to D5 now 50 cc / h up dose digoxin and tenormin K and Phos supplement as needed Keep electrolytes in check Keep BS and BP in check Subjective ROS Limited/Unobtainable: Yes Objective Objective Last 24 Hour Vital Signs Date Time Temp Pulse Resp B/P (MAP) Pulse Ox O2 Delivery O2 Flow Rate FiO2 12/16/18 12:49 97.9 12/16/18 12:41 97.9 12/16/18 12:40 89 29 35 12/16/18 12:00 35 12/16/18 12:00 106 12/16/18 12:00 Mechanical Ventilator 12/16/18 12:00 100.7 100 22 104/63 (77) 100 12/16/18 11:12 100 31 98 Mechanical Ventilator 35 12/16/18 11:02 102 28 99 Mechanical Ventilator 35 12/16/18 11:01 95 30 35 12/16/18 09:03 129 28 35 12/16/18 08:32 130 110/71 12/16/18 08:31 130 110/71 12/16/18 08:31 130 12/16/18 08:00 35 12/16/18 08:00 99.5 108 24 110/71 (84) 100 12/16/18 08:00 Mechanical Ventilator 12/16/18 08:00 128 26 35 12/16/18 07:44 127 12/16/18 05:30 122 24 35 12/16/18 04:10 103 22 35 12/16/18 04:08 109 12/16/18 04:00 97.1 103 30 117/72 (87) 100 12/16/18 04:00 Mechanical Ventilator 12/16/18 04:00 35 12/16/18 00:49 87 24 35 12/16/18 00:00 97.3 103 25 110/64 (79) 100 12/16/18 00:00 Mechanical Ventilator 12/15/18 23:39 95 12/15/18 23:24 97 24 35 12/15/18 21:23 104 105/63 12/15/18 21:15 98 27 35 12/15/18 20:00 35 12/15/18 20:00 Mechanical Ventilator 12/15/18 20:00 98.1 104 28 105/63 (77) 98 12/15/18 19:11 111 12/15/18 19:07 112 34 35 12/15/18 17:05 99 146/91 12/15/18 16:53 99 28 35 12/15/18 16:00 35 12/15/18 16:00 98.1 96 26 146/91 (109) 96 12/15/18 16:00 Mechanical Ventilator 12/15/18 15:10 100 12/15/18 14:31 95 27 35 Intake and Output 12/15/18 12/16/18 19:00 07:00 Intake Total 1190 ml 770 ml Output Total 1650 ml 1350 ml Balance -460 ml -580 ml Intake Free Water 150 ml 60 ml IV Total 310 ml 110 ml Tube Feeding 730 ml 550 ml Other 50 ml Output Urine Total 900 ml 400 ml Stool Total 750 ml 950 ml Laboratory Tests 12/16/18 03:45: White Blood Count 16.2H, Red Blood Count 3.07L, Hemoglobin 9.3L, Hematocrit 29.3L, Mean Corpuscular Volume 96, Mean Corpuscular Hemoglobin 30.2, Mean Corpuscular Hemoglobin Concent 31.6L, Red Cell Distribution Width 16.7H, Platelet Count 143L, Mean Platelet Volume 9.8, Neutrophils (%) (Auto) , Lymphocytes (%) (Auto) , Monocytes (%) (Auto) , Eosinophils (%) (Auto) , Basophils (%) (Auto) , Differential Total Cells Counted 100, Neutrophils % ( Manual) 97H, Lymphocytes % (Manual) 3L, Monocytes % (Manual) 0L, Eosinophils % ( Manual) 0, Basophils % (Manual) 0, Band Neutrophils 0, Platelet Estimate DecreasedL, Platelet Morphology Normal, Anisocytosis 1+, Erythrocyte Sedimentation Rate 125H, Sodium Level 148H, Potassium Level 4.8, Chloride Level 119H, Carbon Dioxide Level 19L, Anion Gap 10, Blood Urea Nitrogen 28H, Creatinine 0.9, Estimat Glomerular Filtration Rate , Glucose Level 230H, Calcium Level 8.3L, Phosphorus Level 2.3L, Magnesium Level 1.8, Total Bilirubin 0.2, Aspartate Amino Transf (AST/SGOT) 33, Alanine Aminotransferase (ALT/SGPT) 28, Alkaline Phosphatase 115, C-Reactive Protein, Quantitative 33.3H, Total Protein 7.1, Albumin 1.3L, Globulin 5.8, Albumin/Globulin Ratio 0.2L, Amylase Level 168H, Lipase 875H, Digoxin Level 0.9 Height (Feet): 5 Height (Inches): 8.00 Weight (Pounds): 140 General Appearance: no apparent distress EENT: other - trach Cardiovascular: tachycardia Respiratory/Chest: decreased breath sounds Abdomen: distended Objective no change Migue Moreland MD Dec 16, 2018 14:22
--- NOTE | 2018-12-16 15:40 | Infectious Diseases Prog Note ---
Assessment/Plan Assessment/Plan Assessment: Severe Sepsis 2ry to GNR -CXR: Probable small left pleural effusion, also evident on prior study 2017. Bilateral interstitial disease, unchanged, suspect chronic. Correlate with clinical findings -sp CX MDR PsA (S Gentamicin, AMikacin, Cefepime, Aztreonam, Tobramycin) GNR bacteremia, likely from UTI -CT abd/p: Findings consistent with uncomplicated nonnecrotizing acute pancreatitis. No evidence of associated peripancreatic abscess Surgical changes as described, including right lower quadrant ileostomy, subtotal colectomy with Haroldo procedure. Wall thickening of the Haroldo pouch. This could indicate inflammation. However, this is also present on both of the prior 2 exams and may be baseline for this patien. Evidence of mild anasarca, with edema of the subcutaneous fat. This is a new finding. Chronic appearing decubitus changes of the bilateral ischia. Correlate with clinical findings. Complete left lower lobe consolidation. This is similar to both of the prior CTs, andis likely a chronic finding. There is progressive chronic interstitial fibrotic change involving the right middle lobe. There is also right lower lobe granulomatous calcification, Extensive pulmonary parenchymal opacities bilaterally may reflect acute inflammation/infection, edema, progressive chronic scarring, orcombination of the above. These are considerably more extensive than on the prior study -u/a 10-15, nit neg, luek +3; ucx 50-60k Enterococcus (Vanco resist; S AMp), 40-50 K Proteus -12/07 Bcx 3/4 Proteus; 12/08 Bcx 1/4 Proteus (S Aztreonam; R Cipro, levo; I Imipenem); 12/12 BCx p Acute pancreatitis -lipase ~1k Fever - recurrent- in the setting of bacteremia and pancreaitis Leukocytosis , increased-in the setting of bacteremia, UTI and acute pancreatitis CONS bacteremia- likely contaminant -12/12 Bcx 1/4 CONS; 12/14 Bcx NTD Hyponatremia, improving MAULIK, improving dysphagia s/p peg COPD GBS quadriplegia chronic resp failure s/p trach HTN CVA, nonverbal anemia SNF resident Plan: -Continue Aztreonam #8/14 for Proteus UTi and bacteremia; and IV Daptomycin #7/ 7 for enterococcus UTI and for GPC bacteremia -Add INH tobramycin #2 for MDR PsA in sputum -f/u Bcx x2 -Monitor CBC/CMP, temperatures -PEG/Trach care -Aspiration precautions -management of acute pancreatitis per primary team. Will continue to follow along with you. Subjective Allergies: Coded Allergies: PENICILLINS (Unverified Allergy, Unknown, 02/26/16) POLYMYXIN B (Unverified Allergy, Unknown, 02/26/16) VANCOMYCIN (Unverified Allergy, Unknown, 02/26/16) Subjective Tm 100.7 WBC remains 15 repeat Bcx NTD Objective Vital Signs Last 24 Hour Vital Signs Date Time Temp Pulse Resp B/P (MAP) Pulse Ox O2 Delivery O2 Flow Rate FiO2 12/16/18 14:46 89 26 35 12/16/18 12:49 97.9 12/16/18 12:41 97.9 12/16/18 12:40 89 29 35 12/16/18 12:00 35 12/16/18 12:00 106 12/16/18 12:00 Mechanical Ventilator 12/16/18 12:00 100.7 100 22 104/63 (77) 100 12/16/18 11:12 100 31 98 Mechanical Ventilator 35 12/16/18 11:02 102 28 99 Mechanical Ventilator 35 12/16/18 11:01 95 30 35 12/16/18 09:03 129 28 35 12/16/18 08:32 130 110/71 12/16/18 08:31 130 110/71 12/16/18 08:31 130 12/16/18 08:00 35 12/16/18 08:00 99.5 108 24 110/71 (84) 100 12/16/18 08:00 Mechanical Ventilator 12/16/18 08:00 128 26 35 12/16/18 07:44 127 12/16/18 05:30 122 24 35 12/16/18 04:10 103 22 35 12/16/18 04:08 109 12/16/18 04:00 97.1 103 30 117/72 (87) 100 12/16/18 04:00 Mechanical Ventilator 12/16/18 04:00 35 12/16/18 00:49 87 24 35 12/16/18 00:00 97.3 103 25 110/64 (79) 100 12/16/18 00:00 Mechanical Ventilator 12/15/18 23:39 95 12/15/18 23:24 97 24 35 12/15/18 21:23 104 105/63 12/15/18 21:15 98 27 35 12/15/18 20:00 35 12/15/18 20:00 Mechanical Ventilator 12/15/18 20:00 98.1 104 28 105/63 (77) 98 12/15/18 19:11 111 12/15/18 19:07 112 34 35 12/15/18 17:05 99 146/91 12/15/18 16:53 99 28 35 12/15/18 16:00 35 12/15/18 16:00 98.1 96 26 146/91 (109) 96 12/15/18 16:00 Mechanical Ventilator Height (Feet): 5 Height (Inches): 8.00 Weight (Pounds): 140 Objective HEENT: Eyes were normal. ENT, mucous membranes were not dehydrated. NECK: Supple. There was no goiter. No mass. No lymphadenopathy. There was no JVD. No bruits. Carotid upstroke was 2+. LUNGS: Clear. HEART: PMI was in the fifth left intercostal space in midclavicular line. There was normal S1 and normal S2. There was no murmur. No arrhythmia. No S3. No S4. No pericardial rub. ABDOMEN: Soft and nontender without organomegaly. There were no masses palpable. Normal bowel sounds without bruits. There was no guarding. No rebound tenderness. No ascites. No hernia. No CVA tenderness. EXTREMITIES: No cyanosis, no clubbing, and no edema. Extremities were warm. Microbiology Date/Time Source Procedure Growth Status 12/14/18 15:30 Blood Blood Culture - Preliminary NO GROWTH AFTER 24 HOURS Resulted 12/14/18 15:15 Blood Blood Culture - Preliminary NO GROWTH AFTER 24 HOURS Resulted Laboratory Tests Test 12/16/18 03:45 White Blood Count 16.2 K/UL (4.8-10.8) H Red Blood Count 3.07 M/UL (4.70-6.10) L Hemoglobin 9.3 G/DL (14.2-18.0) L Hematocrit 29.3 % (42.0-52.0) L Mean Corpuscular Volume 96 FL (80-99) Mean Corpuscular Hemoglobin 30.2 PG (27.0-31.0) Mean Corpuscular Hemoglobin Concent 31.6 G/DL (32.0-36.0) L Red Cell Distribution Width 16.7 % (11.6-14.8) H Platelet Count 143 K/UL (150-450) L Mean Platelet Volume 9.8 FL (6.5-10.1) Neutrophils (%) (Auto) % (45.0-75.0) Lymphocytes (%) (Auto) % (20.0-45.0) Monocytes (%) (Auto) % (1.0-10.0) Eosinophils (%) (Auto) % (0.0-3.0) Basophils (%) (Auto) % (0.0-2.0) Differential Total Cells Counted 100 Neutrophils % (Manual) 97 % (45-75) H Lymphocytes % (Manual) 3 % (20-45) L Monocytes % (Manual) 0 % (1-10) L Eosinophils % (Manual) 0 % (0-3) Basophils % (Manual) 0 % (0-2) Band Neutrophils 0 % (0-8) Platelet Estimate Decreased L Platelet Morphology Normal Anisocytosis 1+ Erythrocyte Sedimentation Rate 125 MM/HR (0-20) H Sodium Level 148 MMOL/L (136-145) H Potassium Level 4.8 MMOL/L (3.5-5.1) Chloride Level 119 MMOL/L (98-107) H Carbon Dioxide Level 19 MMOL/L (21-32) L Anion Gap 10 mmol/L (5-15) Blood Urea Nitrogen 28 mg/dL (7-18) H Creatinine 0.9 MG/DL (0.55-1.30) Estimat Glomerular Filtration Rate mL/min (>60) Glucose Level 230 MG/DL (74-106) H Calcium Level 8.3 MG/DL (8.5-10.1) L Phosphorus Level 2.3 MG/DL (2.5-4.9) L Magnesium Level 1.8 MG/DL (1.8-2.4) Total Bilirubin 0.2 MG/DL (0.2-1.0) Aspartate Amino Transf (AST/SGOT) 33 U/L (15-37) Alanine Aminotransferase (ALT/SGPT) 28 U/L (12-78) Alkaline Phosphatase 115 U/L (46-116) C-Reactive Protein, Quantitative 33.3 mg/dL (0.00-0.90) H Total Protein 7.1 G/DL (6.4-8.2) Albumin 1.3 G/DL (3.4-5.0) L Globulin 5.8 g/dL Albumin/Globulin Ratio 0.2 (1.0-2.7) L Amylase Level 168 U/L (25-115) H Lipase 875 U/L (73-393) H Digoxin Level 0.9 NG/ML (0.5-2.0) Current Medications Medications (Trade) Dose Ordered Sig/[place] Route PRN Reason Start Time Stop Time Status Last Admin Dose Admin Acetaminophen (Tylenol) 650 mg Q4H PRN GT For Pain 12/07/18 17:00 01/06/19 16:59 12/16/18 12:11 Acetaminophen (Tylenol) 650 mg Q4H PRN GT fever 12/10/18 09:45 01/06/19 16:59 12/15/18 05:27 Atenolol (Tenormin) 25 mg Q12HR ORAL 12/12/18 21:00 01/11/19 20:59 12/16/18 08:31 Aztreonam 1 gm/ Dextrose 55 ml @ 110 mls/hr Q8HR IVPB 12/09/18 15:00 12/20/18 14:59 12/16/18 13:48 Chlorhexidine Gluconate (Sandra-Hex 2%) 1 applic DAILY@2000 TOPIC 12/10/18 20:00 01/09/19 19:59 12/15/18 21:23 Daptomycin 250 mg/ Sodium Chloride 55 ml @ 100 mls/hr Q24H IV 12/13/18 18:30 12/16/18 23:59 12/15/18 18:57 Dextrose (Dextrose 50%) 25 ml Q30M PRN IV Hypoglycemia 12/10/18 14:00 01/09/19 13:59 Dextrose (Dextrose 50%) 50 ml Q30M PRN IV Hypoglycemia 12/10/18 14:00 01/09/19 13:59 Digoxin (Lanoxin) 0.25 mg DAILY GT 12/12/18 09:00 01/10/19 08:59 12/16/18 08:31 Diltiazem HCl (Cardizem) 10 mg BIDPRN PRN IVP FOR HR >140 12/12/18 08:45 01/11/19 08:44 Diltiazem HCl (Cardizem) 30 mg BID GT 12/11/18 18:00 01/10/19 17:59 12/16/18 08:32 Gemfibrozil (Lopid) 600 mg TWICE A DAY GT 12/15/18 10:15 01/14/19 10:14 12/16/18 08:30 Heparin Sodium (Porcine) (Heparin 5000 units/ml) 5,000 units EVERY 12 HOURS SUBQ 12/07/18 21:00 01/06/19 20:59 12/16/18 08:30 Insulin Aspart (NovoLOG) EVERY 4 HOURS SUBQ 12/12/18 05:00 01/09/19 04:59 12/16/18 12:17 Lansoprazole (Prevacid) 30 mg DAILY GT 12/17/18 09:00 01/16/19 08:59 Nitroglycerin (Ntg) 0.4 mg Q5M PRN SL Prn Chest Pain 12/07/18 17:00 01/06/19 16:59 Ondansetron HCl (Zofran) 4 mg Q6H PRN IVP Nausea & Vomiting 12/07/18 17:00 01/06/19 16:59 Phosphorus (Phospha 250 Neutral) 500 mg THREE TIMES A DAY GT 12/10/18 09:00 01/09/19 08:59 12/16/18 12:11 Polyethylene Glycol (Miralax) 17 gm DAILYPRN PRN GT Constipation 12/10/18 09:45 01/06/19 16:59 Potassium Phosphate 15 mm/ Sodium Chloride 280 ml @ 46.667 mls/ hr ONCE ONCE IV 12/16/18 10:00 12/16/18 15:59 12/16/18 10:05 Tobramycin Sulfate (Nebcin) 300 mg Q12HR@10,22 INH 12/15/18 10:30 12/22/18 10:29 12/16/18 11:10 Aminah Champagne M.D. Dec 16, 2018 15:40
[2018-12-16 16:00] VITALS: BP 104/70
[2018-12-16] MEDS: DAPTOmycin 250 MG in NS 55 ML IV SCH (19:01)
--- NOTE | 2018-12-16 19:35 | NUR ---
HAND-OFF: Report given to Luciana Dejesus RN. Patient stable and in no distress.
--- NOTE | 2018-12-16 19:36 | NUR ---
NURSE NOTES: Report received from Daphne Arias RN. Pt A/Ox1, potline monitor shows SR. Pt ventilator dependent. Trach size: portex 8. Ventilator settings: AC18 Vt:500, FiO2:35%, PEEP 5. Pt has a GT in place with glucerna 1.2 @ 55 ml/Hr. A colostomy is present on the right upper quadrant. A suprapubic catheter is present and draining appropriately. Accuchecks are Q4hr. Pt has a large saccral wound present, dressing dry and intact. Pt has a EDA PICC, asymptomatic and patent. Bed in lowest position, bed alarms placed. Call light within reach. Will continue to monitor and with patients plan of care.
[2018-12-16 20:00] VITALS: BP 102/65
[2018-12-16 20:05] LABS: HEMATOCRIT 28.6 % (42.0-52.0); HEMOGLOBIN 9.1 G/DL (14.2-18.0); MEAN CORPUSCULAR VOLUME 95 FL (80-99); PLATELET COUNT 165 K/UL (150-450); RED CELL DISTRIBUTION WIDTH 16.6 % (11.6-14.8); WHITE BLOOD COUNT 14.1 K/UL (4.8-10.8)
--- NOTE | 2018-12-16 20:08 | Cardiology Progress Note ---
Assessment/Plan Assessment/Plan 1. Supraventricular tachycardia. recurrent 12/09 and 12/10 2. Renal insufficiency. 3. Hyponatremia. 4. Chronic ventilator dependence. 5. Guillain-Creswell syndrome. 6. History of bowel resection. 7. History of CVA. 8. Chronic tracheostomy. 9. Diabetes mellitus. 10 pancreatitis 11. anemai bp borderline cortisol was normal on low dose Cardizem via gtube and dig dig level 0.9 on 12/16 no further svt on the present regimen heart rate much imporved so far Subjective ROS Limited/Unobtainable: Yes Subjective on the vent Objective Last 24 Hour Vital Signs Date Time Temp Pulse Resp B/P (MAP) Pulse Ox O2 Delivery O2 Flow Rate FiO2 12/16/18 19:03 92 28 35 12/16/18 17:38 119 132/72 12/16/18 16:42 98 32 35 12/16/18 16:00 99.0 66 20 104/70 (81) 98 12/16/18 16:00 35 12/16/18 16:00 Mechanical Ventilator 12/16/18 15:32 89 12/16/18 14:46 89 26 35 12/16/18 12:49 97.9 12/16/18 12:41 97.9 12/16/18 12:40 89 29 35 12/16/18 12:00 35 12/16/18 12:00 106 12/16/18 12:00 Mechanical Ventilator 12/16/18 12:00 100.7 100 22 104/63 (77) 100 12/16/18 11:12 100 31 98 Mechanical Ventilator 35 12/16/18 11:02 102 28 99 Mechanical Ventilator 35 12/16/18 11:01 95 30 35 12/16/18 09:03 129 28 35 12/16/18 08:32 130 110/71 12/16/18 08:31 130 110/71 12/16/18 08:31 130 12/16/18 08:00 35 12/16/18 08:00 99.5 108 24 110/71 (84) 100 12/16/18 08:00 Mechanical Ventilator 12/16/18 08:00 128 26 35 12/16/18 07:44 127 12/16/18 05:30 122 24 35 12/16/18 04:10 103 22 35 12/16/18 04:08 109 12/16/18 04:00 97.1 103 30 117/72 (87) 100 12/16/18 04:00 Mechanical Ventilator 12/16/18 04:00 35 12/16/18 00:49 87 24 35 12/16/18 00:00 97.3 103 25 110/64 (79) 100 12/16/18 00:00 Mechanical Ventilator 12/15/18 23:39 95 12/15/18 23:24 97 24 35 12/15/18 21:23 104 105/63 12/15/18 21:15 98 27 35 General Appearance: no apparent distress, alert, on vent, patient on isolation Extremities: no swelling Intake and Output 12/15/18 12/16/18 18:59 06:59 Intake Total 1250 ml 825 ml Output Total 1650 ml 1350 ml Balance -400 ml -525 ml Intake Free Water 150 ml 60 ml IV Total 360 ml 110 ml Tube Feeding 740 ml 605 ml Other 50 ml Output Urine Total 900 ml 400 ml Stool Total 750 ml 950 ml Laboratory Tests Test 12/16/18 03:45 12/16/18 19:15 White Blood Count 16.2 K/UL (4.8-10.8) H Pending Red Blood Count 3.07 M/UL (4.70-6.10) L Pending Hemoglobin 9.3 G/DL (14.2-18.0) L Pending Hematocrit 29.3 % (42.0-52.0) L Pending Mean Corpuscular Volume 96 FL (80-99) Pending Mean Corpuscular Hemoglobin 30.2 PG (27.0-31.0) Pending Mean Corpuscular Hemoglobin Concent 31.6 G/DL (32.0-36.0) L Pending Red Cell Distribution Width 16.7 % (11.6-14.8) H Pending Platelet Count 143 K/UL (150-450) L Pending Mean Platelet Volume 9.8 FL (6.5-10.1) Pending Neutrophils (%) (Auto) % (45.0-75.0) Pending Lymphocytes (%) (Auto) % (20.0-45.0) Pending Monocytes (%) (Auto) % (1.0-10.0) Pending Eosinophils (%) (Auto) % (0.0-3.0) Pending Basophils (%) (Auto) % (0.0-2.0) Pending Differential Total Cells Counted 100 Neutrophils % (Manual) 97 % (45-75) H Lymphocytes % (Manual) 3 % (20-45) L Monocytes % (Manual) 0 % (1-10) L Eosinophils % (Manual) 0 % (0-3) Basophils % (Manual) 0 % (0-2) Band Neutrophils 0 % (0-8) Platelet Estimate Decreased L Platelet Morphology Normal Anisocytosis 1+ Erythrocyte Sedimentation Rate 125 MM/HR (0-20) H Sodium Level 148 MMOL/L (136-145) H Pending Potassium Level 4.8 MMOL/L (3.5-5.1) Pending Chloride Level 119 MMOL/L (98-107) H Pending Carbon Dioxide Level 19 MMOL/L (21-32) L Pending Anion Gap 10 mmol/L (5-15) Blood Urea Nitrogen 28 mg/dL (7-18) H Pending Creatinine 0.9 MG/DL (0.55-1.30) Pending Estimat Glomerular Filtration Rate mL/min (>60) Pending Glucose Level 230 MG/DL (74-106) H Pending Calcium Level 8.3 MG/DL (8.5-10.1) L Pending Phosphorus Level 2.3 MG/DL (2.5-4.9) L Magnesium Level 1.8 MG/DL (1.8-2.4) Total Bilirubin 0.2 MG/DL (0.2-1.0) Aspartate Amino Transf (AST/SGOT) 33 U/L (15-37) Alanine Aminotransferase (ALT/SGPT) 28 U/L (12-78) Alkaline Phosphatase 115 U/L (46-116) C-Reactive Protein, Quantitative 33.3 mg/dL (0.00-0.90) H Total Protein 7.1 G/DL (6.4-8.2) Albumin 1.3 G/DL (3.4-5.0) L Globulin 5.8 g/dL Albumin/Globulin Ratio 0.2 (1.0-2.7) L Amylase Level 168 U/L (25-115) H Lipase 875 U/L (73-393) H Digoxin Level 0.9 NG/ML (0.5-2.0) Microbiology Date/Time Source Procedure Growth Status 12/14/18 15:30 Blood Blood Culture - Preliminary NO GROWTH AFTER 24 HOURS Resulted 12/14/18 15:15 Blood Blood Culture - Preliminary NO GROWTH AFTER 24 HOURS Resulted Donny Kelley MD Dec 16, 2018 20:08
[2018-12-16 20:14] LABS: BASOPHILS % (AUTO) 0.6 % (0.0-2.0); EOSINOPHILS % (AUTO) 1.6 % (0.0-3.0); LYMPHOCYTES % (AUTO) 8.6 % (20.0-45.0); MONOCYTES % (AUTO) 3.2 % (1.0-10.0)
[2018-12-16 20:28] LABS: ANION GAP 14 mmol/L (5-15); BLOOD UREA NITROGEN 31 mg/dL (7-18); CALCIUM 8.3 MG/DL (8.5-10.1); CARBON DIOXIDE 18 MMOL/L (21-32); CHLORIDE 119 MMOL/L (98-107); CREATININE 0.9 MG/DL (0.55-1.30); POTASSIUM 5.9 MMOL/L (3.5-5.1); SODIUM 150 MMOL/L (136-145)
[2018-12-16] MEDS: Dyna-Hex 2% Top Sol 2oz TOPIC SCH (20:37)
--- NOTE | 2018-12-16 23:00 | Progress Note ---
DATE: 12/16/2018 SUBJECTIVE: The patient is afebrile. Hemodynamically stable with persistent tachycardia. PHYSICAL EXAMINATION: VITAL SIGNS: Blood pressure 132/72, pulse 119, respirations of 26, and temperature is 97.9. HEENT: Eyes were normal. ENT, mucous membranes were moist and intact. NECK: Supple with no JVD without lymph nodes. Tracheostomy site is clean. LUNGS: Clear without rhonchi, rales, or wheezing. Secretions are moderate, thick, and pale yellow. HEART: Normal sounds with regular heartbeat. There is tachycardia at rest. ABDOMEN: Soft and nontender with normal bowel sounds. Gastrostomy site is clean. EXTREMITIES: Warm without cyanosis, clubbing, or edema. LABORATORY AND DIAGNOSTIC DATA: His hemoglobin is 9.3, hematocrit 29.3 with an MCV of 96, WBC of 16.2, and platelets are 143,000. His BUN and creatinine are 28 and 0.9 respectively. His sodium is 148, potassium 4.8, chloride 119, CO2 is 19. His phosphorus is 2.3, his magnesium is 1.9. SGOT and SGPT are normal. CRP is 33. . Albumin is 1.3, it was 1 on 12/14/2018 and 1.2 on 12/15/2018. Amylase is 168, it was 157 on 12/15/2018, and it was 186 on 12/13/2018. Lipase is declining, it was 1286 on 12/13/2018, 858 on 12/15/2018, and 875 on 12/16/2018. IMPRESSION: The patient has left lower lobe pneumonia and acute pancreatitis. He is on multiple antibiotics. He is on aztreonam for Proteus mirabilis, . He is already on daptomycin for gram-positive cocci bacteremia and Enterococcus cystitis. In addition, the patient is on inhalation tobramycin of multidrug resistant Pseudomonas in the sputum. Even though the patient is afebrile and hemodynamically stable, mentally he did not return yet to his original status, which was . He still has leukocytosis of 16,000 and persistent tachycardia. Repeat laboratory tests will be done in the a.m. We will continue to follow chest x-ray, leukocytosis, amylase and lipase. Neema Hutchins M.D. DR: Zee JOB#: [id number] CC:
--- NOTE | 2018-12-16 23:06 | General Progress Note ---
Assessment/Plan Assessment/Plan Assessment/Recs: # Leukocytosis/Elevated white blood cell count, unspecified likely related to underlying stress reaction, smoking, or underlying infection (especially if bandemia is noted) --> have reviewed peripheral smear and bandemia/neutrophilia noted --> continue antibiotics if they have been started by ID team --> monitor for resolution ---> WBC trend: 11-->16-->15-->14 # Anemia of chronic disease due to underlying chronic medical issues, multifactorial --> Anemia workup has been reviewed, Ferritin 1573 --> No evidence of hemolysis is noted, peripheral smear has been reviewed. --> Hgb goal >7. Transfuse prn. --> Epogen or iron at this time is not particularly indicated --> Medications have been reviewed -->HGB trend: 7.8-->7.6-->6.2-->6.4->7.1-->8.7-->9.1 # Thrombocytopenia - potential causes multifactorial, evaluate liver and viral etiologies to begin, also could be related to underlying medications patient has received. --> Hep panel and HIV negative --> US abd to evaluate for cirrhosis and hsm reviewed --> Peripheral smear ordered to evaluate for blasts /schistocytes --> abx and other meds have been reviewed --> ok for ppx if plt >50k w/ either heparin or lovenox --> Transfuse if Plt < 20k and fever, or if Plt < 10k without fever # Severe prerenal azotemia, on jeanette saline at 150 mL/hr. #Hypouricemia, appreciate Pulmonary freight traffic consultant # Severe Sepsis, CXR: Probable small left pleural effusion, also evident on prior study 11/22/2017. -->appreciate ID recs # [email or web address], likely from UTI The timing of this note does not necessarily reflect the time of the patient was seen. Greatly appreciate consultation! Subjective Constitutional: Denies: no symptoms, chills, diaphoresis, fever, malaise, weakness, other HEENT: Denies: no symptoms, eye pain, blurred vision, tearing, double vision, ear pain, ear discharge, nose pain, nose congestion, throat pain, throat swelling, mouth pain, mouth swelling, other Cardiovascular: Denies: no symptoms, chest pain, edema, irregular heart rate, lightheadedness, palpitations, syncope, other Respiratory: Denies: no symptoms, cough, orthopnea, shortness of breath, SOB with excertion, SOB at rest, sputum, stridor, wheezing, other Gastrointestinal/Abdominal: Denies: no symptoms, abdomen distended, abdominal pain, black stools, tarry stools, blood in stool, constipated, diarrhea, difficulty swallowing, nausea, poor appetite, poor fluid intake, rectal bleeding , vomiting, other Genitourinary: Denies: no symptoms, burning, discharge, frequency, flank pain, hematuria, incontinence, pain, urgency, other Neurologic/Psychiatric: Denies: no symptoms, anxiety, depressed, emotional problems, headache, numbness, paresthesia, pre-existing deficit, seizure, tingling, tremors, weakness, other Endocrine: Denies: no symptoms, excessive sweating, flushing, intolerance to cold, intolerance to heat, increased hunger, increased thirst, increased urine, unexplained weight gain, unexplained weight loss, other Allergies: Coded Allergies: PENICILLINS (Unverified Allergy, Unknown, 02/26/16) POLYMYXIN B (Unverified Allergy, Unknown, 02/26/16) VANCOMYCIN (Unverified Allergy, Unknown, 02/26/16) Subjective 12/11: seen by bedside, vent dependent, leukocytosis, 11, hgb 7, will transfuse, no events 12/12: awake, comfortable wbc trending up at 16, no events 12/13: hgb 6.4, receiving transfusion, , wbc remains elevated. no acute events 12/14: seen by bedside, awake, comfortable low grade fever, wbc remains elevated at 15, bacteremia on IV Abx, hgb 7.1, will transfuse as needed 12/15: Wbc remains elevated, no events reported, hgb trending up 12/16: seen by bedside, awake, comfortable, no events Objective Last 24 Hour Vital Signs Date Time Temp Pulse Resp B/P (MAP) Pulse Ox O2 Delivery O2 Flow Rate FiO2 12/16/18 22:49 98 28 35 12/16/18 22:18 94 26 99 Mechanical Ventilator 35 12/16/18 21:59 96 30 99 Mechanical Ventilator 35 12/16/18 21:12 96 27 35 12/16/18 20:39 90 102/65 12/16/18 19:03 92 28 35 12/16/18 17:38 119 132/72 12/16/18 16:42 98 32 35 12/16/18 16:00 99.0 66 20 104/70 (81) 98 12/16/18 16:00 35 12/16/18 16:00 Mechanical Ventilator 12/16/18 15:32 89 12/16/18 14:46 89 26 35 12/16/18 12:49 97.9 12/16/18 12:41 97.9 12/16/18 12:40 89 29 35 12/16/18 12:00 35 12/16/18 12:00 106 12/16/18 12:00 Mechanical Ventilator 12/16/18 12:00 100.7 100 22 104/63 (77) 100 12/16/18 11:12 100 31 98 Mechanical Ventilator 35 12/16/18 11:02 102 28 99 Mechanical Ventilator 35 12/16/18 11:01 95 30 35 12/16/18 09:03 129 28 35 12/16/18 08:32 130 110/71 12/16/18 08:31 130 110/71 12/16/18 08:31 130 12/16/18 08:00 35 12/16/18 08:00 99.5 108 24 110/71 (84) 100 12/16/18 08:00 Mechanical Ventilator 12/16/18 08:00 128 26 35 12/16/18 07:44 127 12/16/18 05:30 122 24 35 12/16/18 04:10 103 22 35 12/16/18 04:08 109 12/16/18 04:00 97.1 103 30 117/72 (87) 100 12/16/18 04:00 Mechanical Ventilator 12/16/18 04:00 35 12/16/18 00:49 87 24 35 12/16/18 00:00 97.3 103 25 110/64 (79) 100 12/16/18 00:00 Mechanical Ventilator 12/15/18 23:39 95 12/15/18 23:24 97 24 35 Intake and Output 12/15/18 12/16/18 18:59 06:59 Intake Total 1250 ml 825 ml Output Total 1650 ml 1350 ml Balance -400 ml -525 ml Intake Free Water 150 ml 60 ml IV Total 360 ml 110 ml Tube Feeding 740 ml 605 ml Other 50 ml Output Urine Total 900 ml 400 ml Stool Total 750 ml 950 ml Laboratory Tests 12/16/18 03:45: White Blood Count 16.2H, Red Blood Count 3.07L, Hemoglobin 9.3L, Hematocrit 29.3L, Mean Corpuscular Volume 96, Mean Corpuscular Hemoglobin 30.2, Mean Corpuscular Hemoglobin Concent 31.6L, Red Cell Distribution Width 16.7H, Platelet Count 143L, Mean Platelet Volume 9.8, Neutrophils (%) (Auto) , Lymphocytes (%) (Auto) , Monocytes (%) (Auto) , Eosinophils (%) (Auto) , Basophils (%) (Auto) , Differential Total Cells Counted 100, Neutrophils % ( Manual) 97H, Lymphocytes % (Manual) 3L, Monocytes % (Manual) 0L, Eosinophils % ( Manual) 0, Basophils % (Manual) 0, Band Neutrophils 0, Platelet Estimate DecreasedL, Platelet Morphology Normal, Anisocytosis 1+, Erythrocyte Sedimentation Rate 125H, Sodium Level 148H, Potassium Level 4.8, Chloride Level 119H, Carbon Dioxide Level 19L, Anion Gap 10, Blood Urea Nitrogen 28H, Creatinine 0.9, Estimat Glomerular Filtration Rate , Glucose Level 230H, Calcium Level 8.3L, Phosphorus Level 2.3L, Magnesium Level 1.8, Total Bilirubin 0.2, Aspartate Amino Transf (AST/SGOT) 33, Alanine Aminotransferase (ALT/SGPT) 28, Alkaline Phosphatase 115, C-Reactive Protein, Quantitative 33.3H, Total Protein 7.1, Albumin 1.3L, Globulin 5.8, Albumin/Globulin Ratio 0.2L, Amylase Level 168H, Lipase 875H, Digoxin Level 0.9 12/16/18 19:15: White Blood Count 14.1H, Red Blood Count 3.00L, Hemoglobin 9.1L, Hematocrit 28.6L, Mean Corpuscular Volume 95, Mean Corpuscular Hemoglobin 30.2, Mean Corpuscular Hemoglobin Concent 31.8L, Red Cell Distribution Width 16.6H, Platelet Count 165, Mean Platelet Volume 9.1, Neutrophils (%) (Auto) 86.0H, Lymphocytes (%) (Auto) 8.6L, Monocytes (%) (Auto) 3.2, Eosinophils (%) (Auto) 1.6, Basophils (%) (Auto) 0.6, Sodium Level 150H, Potassium Level 5.9H, Chloride Level 119H, Carbon Dioxide Level 18L, Anion Gap 14, Blood Urea Nitrogen 31H, Creatinine 0.9, Estimat Glomerular Filtration Rate , Glucose Level 264H, Calcium Level 8.3L Height (Feet): 5 Height (Inches): 8.00 Weight (Pounds): 140 Objective Physical Exam HEENT: Eyes were normal. ENT, mucous membranes were not dehydrated. NECK: Supple. There was no goiter. No mass. No lymphadenopathy. There was no JVD. No bruits. Carotid upstroke was 2+. LUNGS: Clear. Vent++ HEART: PMI was in the fifth left intercostal space in midclavicular line. There was normal S1 and normal S2. There was no murmur. No arrhythmia. No S3. No S4. No pericardial rub. ABDOMEN: Soft and nontender without organomegaly. There were no masses palpable. Normal bowel sounds without bruits. There was no guarding. No rebound tenderness. No ascites. No hernia. No CVA tenderness. Liver span was 8 cm, mostly nontender. EXTREMITIES: No cyanosis, no clubbing, and no edema. Extremities were warm. Adarsh Kim MD Dec 16, 2018 23:06
[2018-12-17] VITALS: BP 100/68
[2018-12-17] MEDS: NovoLOG Insulin Flexpen SUBQ SCH ×7 (01:59→23:10)
[2018-12-17 04:00] VITALS: BP 104/70
[2018-12-17] MEDS: Aztreonam Inj 1 GM in D5W 55 ML IVPB SCH ×3 (05:20→23:02)
--- NOTE | 2018-12-17 06:00 | NUR ---
NURSE NOTES: Pt awake and alert. No significant changes overnight. pt tolerating ventilator settings well. Showed no signs of acute distress.
--- NOTE | 2018-12-17 07:00 | NUR ---
RESPIRATORY NOTE: pt. received on Mechanical ventilator, patient is trach with PTX7. AC 500, 18, 35%, +5. alarms set and audible, AMBU bag bedside, Will continue to monitor.
[2018-12-17 07:36] LABS: HEMATOCRIT 29.1 % (42.0-52.0); HEMOGLOBIN 9.2 G/DL (14.2-18.0); MEAN CORPUSCULAR VOLUME 97 FL (80-99); PLATELET COUNT 179 K/UL (150-450); RED BLOOD COUNT 3.01 M/UL (4.70-6.10); RED CELL DISTRIBUTION WIDTH 16.8 % (11.6-14.8); WHITE BLOOD COUNT 13.5 K/UL (4.8-10.8)
[2018-12-17 07:59] LABS: AMMONIA 46 umol/L (11-32)
[2018-12-17 08:00] VITALS: BP 117/72
[2018-12-17 08:01] LABS: ALANINE AMINOTRANSFERASE 25 U/L (12-78); ALBUMIN 1.4 G/DL (3.4-5.0); ALBUMIN/GLOBULIN RATIO 0.2 (1.0-2.7); ALKALINE PHOSPHATASE 121 U/L (46-116); AMYLASE 169 U/L (25-115); ANION GAP 13 mmol/L (5-15); ASPARTATE AMINO TRANSFERASE 24 U/L (15-37); BILIRUBIN,TOTAL 0.2 MG/DL (0.2-1.0); BLOOD UREA NITROGEN 31 mg/dL (7-18); CALCIUM 9.1 MG/DL (8.5-10.1); CARBON DIOXIDE 19 MMOL/L (21-32); CHLORIDE 118 MMOL/L (98-107); CREATININE 0.8 MG/DL (0.55-1.30); SODIUM 148 MMOL/L (136-145)
[2018-12-17 08:03] LABS: POTASSIUM 6.1 MMOL/L (3.5-5.1)
--- NOTE | 2018-12-17 08:04 | General Progress Note ---
Assessment/Plan Problem List: (1) Tracheostomy in place ICD Codes: Z98.89 - Other specified postprocedural states SNOMED: 244526207 (2) Acute and chronic respiratory failure ICD Codes: J96.20 - Acute and chronic respiratory failure, unspecified whether with hypoxia or hypercapnia SNOMED: 73115281, 57574422 (3) Decubitus ulcer of sacral region, stage 2 ICD Codes: L89.152 - Pressure ulcer of sacral region, stage 2 SNOMED: 447094296, 985685299 (4) Cerebral vascular disease ICD Codes: I67.9 - Cerebrovascular disease, unspecified SNOMED: 72759556 (5) Colostomy care ICD Codes: Z43.3 - Encounter for attention to colostomy SNOMED: 910843644 (6) Hypertension ICD Codes: I10 - Essential (primary) hypertension SNOMED: 79108778 (7) Diabetes mellitus, type II ICD Codes: E11.9 - Type 2 diabetes mellitus without complications SNOMED: 72616320 (8) Feeding by G-tube ICD Codes: Z93.1 - Gastrostomy status SNOMED: 608892584, 944745139 (9) Anemia ICD Codes: D64.9 - Anemia, unspecified SNOMED: 772695734 (10) Pancreatitis ICD Codes: K85.90 - Acute pancreatitis without necrosis or infection, unspecified SNOMED: 27835308 Assessment/Plan fu H&H ppi daily lopid GTF fu labs tumor markers fu stool ob Subjective ROS Limited/Unobtainable: No Allergies: Coded Allergies: PENICILLINS (Unverified Allergy, Unknown, 02/26/16) POLYMYXIN B (Unverified Allergy, Unknown, 02/26/16) VANCOMYCIN (Unverified Allergy, Unknown, 02/26/16) Objective Last 24 Hour Vital Signs Date Time Temp Pulse Resp B/P (MAP) Pulse Ox O2 Delivery O2 Flow Rate FiO2 12/17/18 07:26 114 32 35 12/17/18 05:10 99 28 35 12/17/18 04:00 98.2 109 31 104/70 (81) 99 12/17/18 04:00 Mechanical Ventilator 12/17/18 04:00 110 12/17/18 04:00 35 12/17/18 03:07 102 30 35 12/17/18 01:07 99 24 35 12/17/18 00:00 Mechanical Ventilator 12/17/18 00:00 95 12/17/18 00:00 98.2 95 29 100/68 (79) 99 12/16/18 22:49 98 28 35 12/16/18 22:18 94 26 99 Mechanical Ventilator 35 12/16/18 21:59 96 30 99 Mechanical Ventilator 35 12/16/18 21:12 96 27 35 12/16/18 20:39 90 102/65 12/16/18 20:00 97.7 90 25 102/65 (77) 99 12/16/18 20:00 89 12/16/18 20:00 Mechanical Ventilator 12/16/18 20:00 35 12/16/18 19:03 92 28 35 12/16/18 17:38 119 132/72 12/16/18 16:42 98 32 35 12/16/18 16:00 99.0 66 20 104/70 (81) 98 12/16/18 16:00 35 12/16/18 16:00 Mechanical Ventilator 12/16/18 15:32 89 12/16/18 14:46 89 26 35 12/16/18 12:49 97.9 12/16/18 12:41 97.9 12/16/18 12:40 89 29 35 12/16/18 12:00 35 12/16/18 12:00 106 12/16/18 12:00 Mechanical Ventilator 12/16/18 12:00 100.7 100 22 104/63 (77) 100 12/16/18 11:12 100 31 98 Mechanical Ventilator 35 12/16/18 11:02 102 28 99 Mechanical Ventilator 35 12/16/18 11:01 95 30 35 12/16/18 09:03 129 28 35 12/16/18 08:32 130 110/71 12/16/18 08:31 130 110/71 12/16/18 08:31 130 Intake and Output 12/16/18 12/17/18 19:00 07:00 Intake Total 1098.335 ml 660 ml Output Total 1200 ml 1050 ml Balance -101.665 ml -390 ml Intake Free Water 150 ml IV Total 288.335 ml 55 ml Tube Feeding 660 ml 605 ml Output Urine Total 1200 ml 800 ml Stool Total 250 ml Laboratory Tests 12/16/18 19:15: White Blood Count 14.1H, Red Blood Count 3.00L, Hemoglobin 9.1L, Hematocrit 28.6L, Mean Corpuscular Volume 95, Mean Corpuscular Hemoglobin 30.2, Mean Corpuscular Hemoglobin Concent 31.8L, Red Cell Distribution Width 16.6H, Platelet Count 165, Mean Platelet Volume 9.1, Neutrophils (%) (Auto) 86.0H, Lymphocytes (%) (Auto) 8.6L, Monocytes (%) (Auto) 3.2, Eosinophils (%) (Auto) 1.6, Basophils (%) (Auto) 0.6, Sodium Level 150H, Potassium Level 5.9H, Chloride Level 119H, Carbon Dioxide Level 18L, Anion Gap 14, Blood Urea Nitrogen 31H, Creatinine 0.9, Estimat Glomerular Filtration Rate , Glucose Level 264H, Calcium Level 8.3L 12/17/18 05:00: White Blood Count 13.5H, Red Blood Count 3.01L, Hemoglobin 9.2L, Hematocrit 29.1L, Mean Corpuscular Volume 97, Mean Corpuscular Hemoglobin 30.5, Mean Corpuscular Hemoglobin Concent 31.5L, Red Cell Distribution Width 16.8H, Platelet Count 179, Mean Platelet Volume 9.6, Neutrophils (%) (Auto) , Lymphocytes (%) (Auto) , Monocytes (%) (Auto) , Eosinophils (%) (Auto) , Basophils (%) (Auto) , Sodium Level [Pending], Potassium Level [Pending], Chloride Level [Pending], Carbon Dioxide Level [Pending], Blood Urea Nitrogen [ Pending], Creatinine [Pending], Estimat Glomerular Filtration Rate [Pending], Glucose Level [Pending], Calcium Level [Pending], Neutrophils % (Manual) [ Pending], Lymphocytes % (Manual) [Pending], Platelet Estimate [Pending], Platelet Morphology [Pending], Total Bilirubin [Pending], Aspartate Amino Transf (AST/SGOT) [Pending], Alanine Aminotransferase (ALT/SGPT) [Pending], Alkaline Phosphatase [Pending], Ammonia 46H, Total Protein [Pending], Albumin [ Pending], Globulin [Pending], Amylase Level [Pending], Lipase [Pending], Carcinoembryonic Antigen [Pending], CA 19-9 Antigen [Pending] Height (Feet): 5 Height (Inches): 8.00 Weight (Pounds): 140 General Appearance: lethargic EENT: normal ENT inspection Neck: supple Cardiovascular: normal rate Respiratory/Chest: decreased breath sounds Abdomen: normal bowel sounds, non tender, soft Extremities: non-tender Benjamin Jackson MD Dec 17, 2018 08:03
[2018-12-17] MEDS ORDERED: Sodium Polystyrene Sulfonate 15gm Powder ORAL SCH ×2 (08:15→17:00)
--- NOTE | 2018-12-17 08:26 | Diagnostic Imaging Report ---
EXAM: XR Chest, 2 Views CLINICAL HISTORY: PNEUMOTX TECHNIQUE: Frontal and lateral views of the chest. COMPARISON: Chest x-ray dated 12/13/18 FINDINGS: Lungs: No significant interval change in the diffuse patchy bilateral reticular interstitial and airspace opacities. Pleural space: No pneumothorax is seen. Unchanged tiny left pleural effusion. Heart: Unremarkable. No cardiomegaly. Mediastinum: Unremarkable. Bones/joints: Unremarkable. Tubes, lines and devices: Telemetry leads overlie the thorax. Tracheostomy tube again noted, with expected positioning. Left arm PICC with catheter tip in the region of the SVC. IMPRESSION: 1. No pneumothorax is seen. 2. Unchanged tiny left pleural effusion. 3. No significant interval change in the diffuse patchy bilateral reticular interstitial and airspace opacities.
[2018-12-17] MEDS: Phospha 250 Neutral tab GT SCH ×3 (08:58→17:31)
[2018-12-17] MEDS: dilTIAZem HCl 30mg tab GT SCH ×2 (08:59→17:31)
[2018-12-17] MEDS: Atenolol 25mg tab ORAL SCH ×2 (09:00→20:40)
[2018-12-17] MEDS: Heparin 5000 units/ml inj SUBQ SCH ×2 (09:01→20:36)
[2018-12-17] MEDS: Tobramycin for inhalation INH SCH ×2 (09:56→21:25)
[2018-12-17] MEDS: Acetaminophen 650mg/20.3ml GT PRN ×2 (10:19→23:15)
--- NOTE | 2018-12-17 10:56 | Infectious Diseases Prog Note ---
Assessment/Plan Assessment/Plan Assessment: Severe Sepsis 2ry to GNR -12/17 CXR: No significant interval change in the diffuse patchy bilateral reticular interstitial and airspace opacities. -CXR: Probable small left pleural effusion, also evident on prior study 2017. Bilateral interstitial disease, unchanged, suspect chronic. Correlate with clinical findings -sp CX MDR PsA (S Gentamicin, AMikacin, Cefepime, Aztreonam, Tobramycin) GNR bacteremia, likely from UTI -CT abd/p: Findings consistent with uncomplicated nonnecrotizing acute pancreatitis. No evidence of associated peripancreatic abscess Surgical changes as described, including right lower quadrant ileostomy, subtotal colectomy with Haroldo procedure. Wall thickening of the Haroldo pouch. This could indicate inflammation. However, this is also present on both of the prior 2 exams and may be baseline for this patien. Evidence of mild anasarca, with edema of the subcutaneous fat. This is a new finding. Chronic appearing decubitus changes of the bilateral ischia. Correlate with clinical findings. Complete left lower lobe consolidation. This is similar to both of the prior CTs, andis likely a chronic finding. There is progressive chronic interstitial fibrotic change involving the right middle lobe. There is also right lower lobe granulomatous calcification, Extensive pulmonary parenchymal opacities bilaterally may reflect acute inflammation/infection, edema, progressive chronic scarring, orcombination of the above. These are considerably more extensive than on the prior study -u/a 10-15, nit neg, luek +3; ucx 50-60k Enterococcus (Vanco resist; S AMp), 40-50 K Proteus -12/07 Bcx / Proteus; 12/08 Bcx 1/ Proteus (S Aztreonam; R Cipro, levo; I Imipenem); 12/12 BCx p Acute pancreatitis -lipase ~1k Fever - recurrent- in the setting of bacteremia and pancreaitis Leukocytosis , increased-in the setting of bacteremia, UTI and acute pancreatitis CONS bacteremia- likely contaminant -12/12 Bcx 1/4 CONS; 12/14 Bcx NTD Hyponatremia, improving MAULIK, improving dysphagia s/p peg COPD GBS quadriplegia chronic resp failure s/p trach HTN CVA, nonverbal anemia SNF resident Plan: -Continue Aztreonam #06/17 for Proteus UTi and bacteremia -Add INH tobramycin #12/08 for MDR PsA in sputum -12/16 SP IV Daptomycin #7 -f/u Bcx x2 -Monitor CBC/CMP, temperatures -PEG/Trach care -Aspiration precautions -management of acute pancreatitis per primary team. Will continue to follow along with you. Subjective Allergies: Coded Allergies: PENICILLINS (Unverified Allergy, Unknown, 02/26/16) POLYMYXIN B (Unverified Allergy, Unknown, 02/26/16) VANCOMYCIN (Unverified Allergy, Unknown, 02/26/16) Subjective afebrile in ~24hrs WBC improving repeat Bcx NTD Objective Vital Signs Last 24 Hour Vital Signs Date Time Temp Pulse Resp B/P (MAP) Pulse Ox O2 Delivery O2 Flow Rate FiO2 12/17/18 09:53 111 30 99 Mechanical Ventilator 35 12/17/18 09:25 121 32 35 12/17/18 09:00 118 117/69 12/17/18 09:00 118 12/17/18 08:59 118 117/69 12/17/18 08:00 Mechanical Ventilator 12/17/18 08:00 99.8 118 32 117/72 (87) 99 12/17/18 08:00 115 12/17/18 07:26 114 32 35 12/17/18 05:10 99 28 35 12/17/18 04:00 98.2 109 31 104/70 (81) 99 12/17/18 04:00 Mechanical Ventilator 12/17/18 04:00 110 12/17/18 04:00 35 12/17/18 03:07 102 30 35 12/17/18 01:07 99 24 35 12/17/18 00:00 Mechanical Ventilator 12/17/18 00:00 95 12/17/18 00:00 98.2 95 29 100/68 (79) 99 12/16/18 22:49 98 28 35 12/16/18 22:18 94 26 99 Mechanical Ventilator 35 12/16/18 21:59 96 30 99 Mechanical Ventilator 35 12/16/18 21:12 96 27 35 12/16/18 20:39 90 102/65 12/16/18 20:00 97.7 90 25 102/65 (77) 99 12/16/18 20:00 89 12/16/18 20:00 Mechanical Ventilator 12/16/18 20:00 35 12/16/18 19:03 92 28 35 12/16/18 17:38 119 132/72 12/16/18 16:42 98 32 35 12/16/18 16:00 99.0 66 20 104/70 (81) 98 12/16/18 16:00 35 12/16/18 16:00 Mechanical Ventilator 12/16/18 15:32 89 12/16/18 14:46 89 26 35 12/16/18 12:49 97.9 12/16/18 12:41 97.9 12/16/18 12:40 89 29 35 12/16/18 12:00 35 12/16/18 12:00 106 12/16/18 12:00 Mechanical Ventilator 12/16/18 12:00 100.7 100 22 104/63 (77) 100 12/16/18 11:12 100 31 98 Mechanical Ventilator 35 12/16/18 11:02 102 28 99 Mechanical Ventilator 35 12/16/18 11:01 95 30 35 Height (Feet): 5 Height (Inches): 8.00 Weight (Pounds): 140 Objective HEENT: Eyes were normal. ENT, mucous membranes were not dehydrated. NECK: Supple. There was no goiter. No mass. No lymphadenopathy. There was no JVD. No bruits. Carotid upstroke was 2+. LUNGS: Clear. HEART: PMI was in the fifth left intercostal space in midclavicular line. There was normal S1 and normal S2. There was no murmur. No arrhythmia. No S3. No S4. No pericardial rub. ABDOMEN: Soft and nontender without organomegaly. There were no masses palpable. Normal bowel sounds without bruits. There was no guarding. No rebound tenderness. No ascites. No hernia. No CVA tenderness. EXTREMITIES: No cyanosis, no clubbing, and no edema. Extremities were warm. Microbiology Date/Time Source Procedure Growth Status 12/14/18 15:30 Blood Blood Culture - Preliminary NO GROWTH AFTER 48 HOURS Resulted 12/14/18 15:15 Blood Blood Culture - Preliminary NO GROWTH AFTER 48 HOURS Resulted Laboratory Tests Test 12/16/18 19:15 12/17/18 05:00 White Blood Count 14.1 K/UL (4.8-10.8) H 13.5 K/UL (4.8-10.8) H Red Blood Count 3.00 M/UL (4.70-6.10) L 3.01 M/UL (4.70-6.10) L Hemoglobin 9.1 G/DL (14.2-18.0) L 9.2 G/DL (14.2-18.0) L Hematocrit 28.6 % (42.0-52.0) L 29.1 % (42.0-52.0) L Mean Corpuscular Volume 95 FL (80-99) 97 FL (80-99) Mean Corpuscular Hemoglobin 30.2 PG (27.0-31.0) 30.5 PG (27.0-31.0) Mean Corpuscular Hemoglobin Concent 31.8 G/DL (32.0-36.0) L 31.5 G/DL (32.0-36.0) L Red Cell Distribution Width 16.6 % (11.6-14.8) H 16.8 % (11.6-14.8) H Platelet Count 165 K/UL (150-450) 179 K/UL (150-450) Mean Platelet Volume 9.1 FL (6.5-10.1) 9.6 FL (6.5-10.1) Neutrophils (%) (Auto) 86.0 % (45.0-75.0) H % (45.0-75.0) Lymphocytes (%) (Auto) 8.6 % (20.0-45.0) L % (20.0-45.0) Monocytes (%) (Auto) 3.2 % (1.0-10.0) % (1.0-10.0) Eosinophils (%) (Auto) 1.6 % (0.0-3.0) % (0.0-3.0) Basophils (%) (Auto) 0.6 % (0.0-2.0) % (0.0-2.0) Sodium Level 150 MMOL/L (136-145) H 148 MMOL/L (136-145) H Potassium Level 5.9 MMOL/L (3.5-5.1) H 6.1 MMOL/L (3.5-5.1) *H Chloride Level 119 MMOL/L (98-107) H 118 MMOL/L (98-107) H Carbon Dioxide Level 18 MMOL/L (21-32) L 19 MMOL/L (21-32) L Anion Gap 14 mmol/L (5-15) 13 mmol/L (5-15) Blood Urea Nitrogen 31 mg/dL (7-18) H 31 mg/dL (7-18) H Creatinine 0.9 MG/DL (0.55-1.30) 0.8 MG/DL (0.55-1.30) Estimat Glomerular Filtration Rate mL/min (>60) mL/min (>60) Glucose Level 264 MG/DL (74-106) H 281 MG/DL (74-106) H Calcium Level 8.3 MG/DL (8.5-10.1) L 9.1 MG/DL (8.5-10.1) Neutrophils % (Manual) Pending Lymphocytes % (Manual) Pending Platelet Estimate Pending Platelet Morphology Pending Total Bilirubin 0.2 MG/DL (0.2-1.0) Aspartate Amino Transf (AST/SGOT) 24 U/L (15-37) Alanine Aminotransferase (ALT/SGPT) 25 U/L (12-78) Alkaline Phosphatase 121 U/L (46-116) H Ammonia 46 umol/L (11-32) H Total Protein 7.5 G/DL (6.4-8.2) Albumin 1.4 G/DL (3.4-5.0) L Globulin 6.1 g/dL Albumin/Globulin Ratio 0.2 (1.0-2.7) L Amylase Level 169 U/L (25-115) H Lipase 948 U/L (73-393) H Carcinoembryonic Antigen Pending CA 19-9 Antigen Pending Current Medications Medications (Trade) Dose Ordered Sig/Fransisco Route PRN Reason Start Time Stop Time Status Last Admin Dose Admin Acetaminophen (Tylenol) 650 mg Q4H PRN GT For Pain 12/07/18 17:00 01/06/19 16:59 12/17/18 10:19 Acetaminophen (Tylenol) 650 mg Q4H PRN GT fever 12/10/18 09:45 01/06/19 16:59 12/15/18 05:27 Atenolol (Tenormin) 25 mg Q12HR ORAL 12/12/18 21:00 01/11/19 20:59 12/17/18 09:00 Aztreonam 1 gm/ Dextrose 55 ml @ 110 mls/hr Q8HR IVPB 12/09/18 15:00 12/20/18 14:59 12/17/18 05:20 Chlorhexidine Gluconate (Sandra-Hex 2%) 1 applic DAILY@2000 TOPIC 12/10/18 20:00 01/09/19 19:59 12/16/18 20:37 Dextrose (Dextrose 50%) 25 ml Q30M PRN IV Hypoglycemia 12/10/18 14:00 01/09/19 13:59 Dextrose (Dextrose 50%) 50 ml Q30M PRN IV Hypoglycemia 12/10/18 14:00 01/09/19 13:59 Digoxin (Lanoxin) 0.25 mg DAILY GT 12/12/18 09:00 01/10/19 08:59 12/17/18 09:00 Diltiazem HCl (Cardizem) 10 mg BIDPRN PRN IVP FOR HR >140 12/12/18 08:45 01/11/19 08:44 Diltiazem HCl (Cardizem) 30 mg BID GT 12/11/18 18:00 01/10/19 17:59 12/17/18 08:59 Gemfibrozil (Lopid) 600 mg TWICE A DAY GT 12/15/18 10:15 01/14/19 10:14 12/17/18 08:58 Heparin Sodium (Porcine) (Heparin 5000 units/ml) 5,000 units EVERY 12 HOURS SUBQ 12/07/18 21:00 01/06/19 20:59 12/17/18 09:01 Insulin Aspart (NovoLOG) EVERY 4 HOURS SUBQ 12/12/18 05:00 01/09/19 04:59 12/17/18 09:14 Lansoprazole (Prevacid) 30 mg DAILY GT 12/17/18 09:00 01/16/19 08:59 12/17/18 08:58 Nitroglycerin (Ntg) 0.4 mg Q5M PRN SL Prn Chest Pain 12/07/18 17:00 01/06/19 16:59 Ondansetron HCl (Zofran) 4 mg Q6H PRN IVP Nausea & Vomiting 12/07/18 17:00 01/06/19 16:59 Phosphorus (Phospha 250 Neutral) 500 mg THREE TIMES A DAY GT 12/10/18 09:00 01/09/19 08:59 12/17/18 08:58 Polyethylene Glycol (Miralax) 17 gm DAILYPRN PRN GT Constipation 12/10/18 09:45 01/06/19 16:59 Tobramycin Sulfate (Nebcin) 300 mg Q12HR@10,22 INH 12/15/18 10:30 12/22/18 10:29 12/17/18 09:56 Aminah Champagne M.D. Dec 17, 2018 10:55
--- NOTE | 2018-12-17 11:36 | Surgery Progress Note ---
Surgery Progress Note Subjective Additional Comments leukocytosis trending down. exam stable. britany/lip slightly increased Objective Last 24 Hour Vital Signs Date Time Temp Pulse Resp B/P (MAP) Pulse Ox O2 Delivery O2 Flow Rate FiO2 12/17/18 10:55 99 26 35 12/17/18 10:03 99 28 99 Mechanical Ventilator 35 12/17/18 09:53 111 30 99 Mechanical Ventilator 35 12/17/18 09:25 121 32 35 12/17/18 09:00 118 117/69 12/17/18 09:00 118 12/17/18 08:59 118 117/69 12/17/18 08:00 35 12/17/18 08:00 Mechanical Ventilator 12/17/18 08:00 99.8 118 32 117/72 (87) 99 12/17/18 08:00 115 12/17/18 07:26 114 32 35 12/17/18 05:10 99 28 35 12/17/18 04:00 98.2 109 31 104/70 (81) 99 12/17/18 04:00 Mechanical Ventilator 12/17/18 04:00 110 12/17/18 04:00 35 12/17/18 03:07 102 30 35 12/17/18 01:07 99 24 35 12/17/18 00:00 Mechanical Ventilator 12/17/18 00:00 95 12/17/18 00:00 98.2 95 29 100/68 (79) 99 12/16/18 22:49 98 28 35 12/16/18 22:18 94 26 99 Mechanical Ventilator 35 12/16/18 21:59 96 30 99 Mechanical Ventilator 35 12/16/18 21:12 96 27 35 12/16/18 20:39 90 102/65 12/16/18 20:00 97.7 90 25 102/65 (77) 99 12/16/18 20:00 89 12/16/18 20:00 Mechanical Ventilator 12/16/18 20:00 35 12/16/18 19:03 92 28 35 12/16/18 17:38 119 132/72 12/16/18 16:42 98 32 35 12/16/18 16:00 99.0 66 20 104/70 (81) 98 12/16/18 16:00 35 12/16/18 16:00 Mechanical Ventilator 12/16/18 15:32 89 12/16/18 14:46 89 26 35 12/16/18 12:49 97.9 12/16/18 12:41 97.9 12/16/18 12:40 89 29 35 12/16/18 12:00 35 12/16/18 12:00 106 12/16/18 12:00 Mechanical Ventilator 12/16/18 12:00 100.7 100 22 104/63 (77) 100 I&O Intake and Output 12/16/18 12/17/18 19:00 07:00 Intake Total 1098.335 ml 660 ml Output Total 1200 ml 1050 ml Balance -101.665 ml -390 ml Intake Free Water 150 ml IV Total 288.335 ml 55 ml Tube Feeding 660 ml 605 ml Output Urine Total 1200 ml 800 ml Stool Total 250 ml Dressing: other Wound: other Drains: other Cardiovascular: RSR Respiratory: decreased breath sounds Abdomen: soft, present bowel sounds, non-distended Extremities: no cyanosis Laboratory Tests Test 12/16/18 19:15 12/17/18 05:00 White Blood Count 14.1 K/UL (4.8-10.8) H 13.5 K/UL (4.8-10.8) H Red Blood Count 3.00 M/UL (4.70-6.10) L 3.01 M/UL (4.70-6.10) L Hemoglobin 9.1 G/DL (14.2-18.0) L 9.2 G/DL (14.2-18.0) L Hematocrit 28.6 % (42.0-52.0) L 29.1 % (42.0-52.0) L Mean Corpuscular Volume 95 FL (80-99) 97 FL (80-99) Mean Corpuscular Hemoglobin 30.2 PG (27.0-31.0) 30.5 PG (27.0-31.0) Mean Corpuscular Hemoglobin Concent 31.8 G/DL (32.0-36.0) L 31.5 G/DL (32.0-36.0) L Red Cell Distribution Width 16.6 % (11.6-14.8) H 16.8 % (11.6-14.8) H Platelet Count 165 K/UL (150-450) 179 K/UL (150-450) Mean Platelet Volume 9.1 FL (6.5-10.1) 9.6 FL (6.5-10.1) Neutrophils (%) (Auto) 86.0 % (45.0-75.0) H % (45.0-75.0) Lymphocytes (%) (Auto) 8.6 % (20.0-45.0) L % (20.0-45.0) Monocytes (%) (Auto) 3.2 % (1.0-10.0) % (1.0-10.0) Eosinophils (%) (Auto) 1.6 % (0.0-3.0) % (0.0-3.0) Basophils (%) (Auto) 0.6 % (0.0-2.0) % (0.0-2.0) Sodium Level 150 MMOL/L (136-145) H 148 MMOL/L (136-145) H Potassium Level 5.9 MMOL/L (3.5-5.1) H 6.1 MMOL/L (3.5-5.1) *H Chloride Level 119 MMOL/L (98-107) H 118 MMOL/L (98-107) H Carbon Dioxide Level 18 MMOL/L (21-32) L 19 MMOL/L (21-32) L Anion Gap 14 mmol/L (5-15) 13 mmol/L (5-15) Blood Urea Nitrogen 31 mg/dL (7-18) H 31 mg/dL (7-18) H Creatinine 0.9 MG/DL (0.55-1.30) 0.8 MG/DL (0.55-1.30) Estimat Glomerular Filtration Rate mL/min (>60) mL/min (>60) Glucose Level 264 MG/DL (74-106) H 281 MG/DL (74-106) H Calcium Level 8.3 MG/DL (8.5-10.1) L 9.1 MG/DL (8.5-10.1) Differential Total Cells Counted 100 Neutrophils % (Manual) 90 % (45-75) H Lymphocytes % (Manual) 6 % (20-45) L Monocytes % (Manual) 3 % (1-10) Eosinophils % (Manual) 1 % (0-3) Basophils % (Manual) 0 % (0-2) Band Neutrophils 0 % (0-8) Platelet Estimate Adequate Platelet Morphology Normal Hypochromasia 2+ Anisocytosis 1+ Total Bilirubin 0.2 MG/DL (0.2-1.0) Aspartate Amino Transf (AST/SGOT) 24 U/L (15-37) Alanine Aminotransferase (ALT/SGPT) 25 U/L (12-78) Alkaline Phosphatase 121 U/L (46-116) H Ammonia 46 umol/L (11-32) H Total Protein 7.5 G/DL (6.4-8.2) Albumin 1.4 G/DL (3.4-5.0) L Globulin 6.1 g/dL Albumin/Globulin Ratio 0.2 (1.0-2.7) L Amylase Level 169 U/L (25-115) H Lipase 948 U/L (73-393) H Carcinoembryonic Antigen Pending CA 19-9 Antigen Pending Plan Problems: (1) Decubitus skin ulcer Assessment & Plan: Pt presented on admission with multiple pressure injuries and Skin erosion. Pt has trach and no evidence of skin breakdown noted under trach collar. Unstageable pressure injury noted to L earlobe. Stable dry brown eschar noted(L) 0.7cm x (W)0.5cm. Gross erythema with denudement and multiple scattered partial thickness wounds noted to buttocks and base of scrotum extending into both posterior upper thighs.Moderate amt sanguineous exudate noted upon removal of drsgs. 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 Moderate amt sanguineous exudate noted (L)3cm x (W)1cm x (D)7.4cm.Erythema periwound secondary to skin erosions. Partially opened DTPI L ischium .Base of wound purple,fluctuant with red borders.Open areas at base of this wound are beefy red in colour.Moderate amt sanguineous exudate noted.(L)7cm x (W)6.8cm. DTPI R ischium.Wound is fluctuant-purple in center with surrounding Maroon colour, and is partially opened with a small area of 5% that is necrotic.(L) 6.5cm x (W)5.5cm. Red skin erosion periwound. Partial thickness pressure injury L hip. Base of wound is moist -viable. Edges adherent and dry. Periwound without erythema or induration(L)1.2cm x (W)0.5cm. Elongate partial thickness wound posterior upper L thigh .Base of wound is moist -viable .Small amt sanguineous exudate noted. (+) maceration along borders. Erythema without induration or elevation in skin temp noted.(L)2cm x (W )9.4cm. DTPI noted to R heel .Base of injury is indurated and maroon in colour. Periwound is firm without erythema. (L)1.5cm x (W)1cm.R heel without evidence of skin breakdown. Tx.Plan: Cleanse Sacrum with Saline. Loosely pack with Hydrogel impregnated Kerlix. Apply Triad Paste periwound. Cover with ABD pad. Daily and prn. Cleanse R and L ischial wounds with Saline. Apply Moisture Barrier Paste.Cover with abd pads Daily and prn. Apply Moisture Barrier to skin erosions on buttocks,scrotum, and posterior aspects of both thighs.Cover with ABD pad daily and prn. Cleanse wound L hip with Saline. Apply Moisture Barrier paste .Cover with Optifoam drsg Daily and prn. Cleanse wound posterior upper L thigh with saline .Apply Hydrogel. Cover with Optifoam drsg Daily and prn. Apply Cavilon Skin Barrier to L earlobe daily. Please monitor. Apply Cavilon Skin Barrier to L heel. Cover with Optifoam drsg. Change every 7 days and prn. Apply Cavilon Skin Barrier to R heel. Cover with Optifoam drsg .Change every 7 days and prn. Air fluidized mattress. Reposition every 2hours or as tolerated. Off-load heels with pillow. (2) Acute and chronic respiratory failure Assessment & Plan: cont with breathing treatments trach stable trach site clean will change dressings daily (3) Acute pancreatitis Assessment & Plan: Findings consistent with uncomplicated nonnecrotizing acute pancreatitis. No evidence of associated peripancreatic abscess Surgical changes as described, including right lower quadrant ileostomy, subtotal colectomy with Haroldo procedure. Wall thickening of the Haroldo pouch. This could indicate inflammation. However, this is also present on both of the prior 2 exams and may be baseline for this patient Evidence of mild anasarca, with edema of the subcutaneous fat. This is a new finding Chronic appearing decubitus changes of the bilateral ischia. Correlate with clinical findings Complete left lower lobe consolidation. This is similar to both of the prior CTs , and is likely a chronic finding. There is progressive chronic interstitial fibrotic change involving the right middle lobe. There is also right lower lobe granulomatous calcification Extensive pulmonary parenchymal opacities bilaterally may reflect acute inflammation/infection, edema, progressive chronic scarring, or combination of the above. These are considerably more extensive than on the prior study Trace bilateral pleural fluid New finding of nonobstructive right renal collecting system calculs 4 mm calculus within the bladder lumen. This may represent a bladder calculus, a calculus and left ureteral orifice, or recently passed stone. If either of the latter, no evidence of resultant hydronephrosis or hydroureter Suprapubic catheter. This is a new finding since the 2016 exams. Interim removal of previously demonstrated Bledsoe catheter Gastrostomy Left renal cysts. Subcentimeter low-attenuation right renal lesions, too small to characterize, most likely benign simple cysts. No further follow-up necessary elevated amylase/lipase mild increase leukocytosis GNR Bacteremia transfused anemia Unfortunately patient not able to participate in exam and difficult to identify if clinically pancreatitis or just laboratory data. Recent CT with uncomplicated pancreatitis but enzymes still remain elevated. Patient tolerated tube feeds. Patient with gram-negative belle bacteremia likely from UTI. Patient remains febrile intermittently with worsening leukocytosis on IV antibiotics. -no acute surgical intervention planned -transfuse as per hematology -Abx as per ID -trend lip/britany - recent finding based on CT given patient cannot given history or participate in exam. CT with uncomplicated pancreatitis. okay for diet / feeds for now. IV fluids Javier Ricardo Dec 17, 2018 11:35
[2018-12-17 12:00] VITALS: BP 118/74
--- NOTE | 2018-12-17 15:03 | Nephrology Progress Note ---
Assessment/Plan Problem List: (1) ATN (acute tubular necrosis) (2) Anemia (3) Feeding by G-tube (4) Acute and chronic respiratory failure (5) UTI (urinary tract infection) (6) Hyponatremia Assessment Patient have mainly Pre Renal Azotemia with possible underlying CKD- Low Na partly depletional, partly due to Hyperglycemia RESOLVED Other conditions as outlined: (1) Acute and chronic respiratory failure (nivek-ty-bonitfa) (2) Sepsis (3) Malnutrition and HypoAlbuminemia (4) UTI (urinary tract infection) (5) Anemia (6) Diabetes mellitus, type II (7) Colostomy care (8) Cerebral vascular disease (9) Decubitus ulcer of sacral region, stage 2 (10) Feeding by G-tube (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 Plan transfused total 2 units Kayexelate for high K Hydrate- change IV to D5 now 50 cc / h up dose digoxin and tenormin K and Phos supplement as needed Keep electrolytes in check Keep BS and BP in check Subjective ROS Limited/Unobtainable: Yes Objective Objective Last 24 Hour Vital Signs Date Time Temp Pulse Resp B/P (MAP) Pulse Ox O2 Delivery O2 Flow Rate FiO2 12/17/18 14:58 94 27 35 12/17/18 13:35 99 30 Mechanical Ventilator 15.0 35 12/17/18 12:59 91 29 35 12/17/18 12:00 Mechanical Ventilator 12/17/18 12:00 87 12/17/18 10:55 99 26 35 12/17/18 10:03 99 28 99 Mechanical Ventilator 35 12/17/18 09:53 111 30 99 Mechanical Ventilator 35 12/17/18 09:25 121 32 35 12/17/18 09:00 118 117/69 12/17/18 09:00 118 12/17/18 08:59 118 117/69 12/17/18 08:00 35 12/17/18 08:00 Mechanical Ventilator 12/17/18 08:00 99.8 118 32 117/72 (87) 99 12/17/18 08:00 115 12/17/18 07:26 114 32 35 12/17/18 05:10 99 28 35 12/17/18 04:00 98.2 109 31 104/70 (81) 99 12/17/18 04:00 Mechanical Ventilator 12/17/18 04:00 110 12/17/18 04:00 35 12/17/18 03:07 102 30 35 12/17/18 01:07 99 24 35 12/17/18 00:00 Mechanical Ventilator 12/17/18 00:00 95 12/17/18 00:00 98.2 95 29 100/68 (79) 99 12/16/18 22:49 98 28 35 12/16/18 22:18 94 26 99 Mechanical Ventilator 35 12/16/18 21:59 96 30 99 Mechanical Ventilator 35 12/16/18 21:12 96 27 35 12/16/18 20:39 90 102/65 12/16/18 20:00 97.7 90 25 102/65 (77) 99 12/16/18 20:00 89 12/16/18 20:00 Mechanical Ventilator 12/16/18 20:00 35 12/16/18 19:03 92 28 35 12/16/18 17:38 119 132/72 12/16/18 16:42 98 32 35 12/16/18 16:00 99.0 66 20 104/70 (81) 98 12/16/18 16:00 35 12/16/18 16:00 Mechanical Ventilator 12/16/18 15:32 89 Intake and Output 12/16/18 12/17/18 18:59 06:59 Intake Total 1098.335 ml 715 ml Output Total 1200 ml 1050 ml Balance -101.665 ml -335 ml Intake Free Water 150 ml IV Total 288.335 ml 55 ml Tube Feeding 660 ml 660 ml Output Urine Total 1200 ml 800 ml Stool Total 250 ml Laboratory Tests 12/16/18 19:15: White Blood Count 14.1H, Red Blood Count 3.00L, Hemoglobin 9.1L, Hematocrit 28.6L, Mean Corpuscular Volume 95, Mean Corpuscular Hemoglobin 30.2, Mean Corpuscular Hemoglobin Concent 31.8L, Red Cell Distribution Width 16.6H, Platelet Count 165, Mean Platelet Volume 9.1, Neutrophils (%) (Auto) 86.0H, Lymphocytes (%) (Auto) 8.6L, Monocytes (%) (Auto) 3.2, Eosinophils (%) (Auto) 1.6, Basophils (%) (Auto) 0.6, Sodium Level 150H, Potassium Level 5.9H, Chloride Level 119H, Carbon Dioxide Level 18L, Anion Gap 14, Blood Urea Nitrogen 31H, Creatinine 0.9, Estimat Glomerular Filtration Rate , Glucose Level 264H, Calcium Level 8.3L 12/17/18 05:00: White Blood Count 13.5H, Red Blood Count 3.01L, Hemoglobin 9.2L, Hematocrit 29.1L, Mean Corpuscular Volume 97, Mean Corpuscular Hemoglobin 30.5, Mean Corpuscular Hemoglobin Concent 31.5L, Red Cell Distribution Width 16.8H, Platelet Count 179, Mean Platelet Volume 9.6, Neutrophils (%) (Auto) , Lymphocytes (%) (Auto) , Monocytes (%) (Auto) , Eosinophils (%) (Auto) , Basophils (%) (Auto) , Sodium Level 148H, Potassium Level 6.1*H, Chloride Level 118H, Carbon Dioxide Level 19L, Anion Gap 13, Blood Urea Nitrogen 31H, Creatinine 0.8, Estimat Glomerular Filtration Rate , Glucose Level 281H, Calcium Level 9.1, Differential Total Cells Counted 100, Neutrophils % (Manual) 90H, Lymphocytes % (Manual) 6L, Monocytes % (Manual) 3, Eosinophils % (Manual) 1 , Basophils % (Manual) 0, Band Neutrophils 0, Platelet Estimate Adequate, Platelet Morphology Normal, Hypochromasia 2+, Anisocytosis 1+, Total Bilirubin 0.2, Aspartate Amino Transf (AST/SGOT) 24, Alanine Aminotransferase (ALT/SGPT) 25, Alkaline Phosphatase 121H, Ammonia 46H, Total Protein 7.5, Albumin 1.4L, Globulin 6.1, Albumin/Globulin Ratio 0.2L, Amylase Level 169H, Lipase 948H, Carcinoembryonic Antigen [Pending], CA 19-9 Antigen [Pending] 12/17/18 10:30: Stool Occult Blood [Pending] 12/17/18 13:00: Potassium Level 6.2*H, Phosphorus Level 2.5 Height (Feet): 5 Height (Inches): 8.00 Weight (Pounds): 140 General Appearance: no apparent distress Cardiovascular: tachycardia Respiratory/Chest: decreased breath sounds Abdomen: distended Objective no change Migue Moreland MD Dec 17, 2018 15:02
--- NOTE | 2018-12-17 15:48 | Pulmonolgy Critical Care Note ---
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 Respiratory: adjust tidal volume, adjust FIO2, CXR Cardiac: continue to monitor HR/BP Renal: keep IV fluid, check electrolytes Infectious Disease: continue antibiotics Gastrointestinal: continue feedings/current rate Endocrine: monitor blood sugar Hematologic: monitor H/H, transfuse if hgb<8.5 Neurologic: PRN Morphine, keep patient comfortable Prophylaxis: Protonix, Heparin Time Spent (Minutes): 40 Discussed with: nurses, consultants, leather case finisherinternet marketing manager - Objective Last 24 Hour Vital Signs Date Time Temp Pulse Resp B/P (MAP) Pulse Ox O2 Delivery O2 Flow Rate FiO2 12/17/18 14:58 94 27 35 12/17/18 13:35 99 30 Mechanical Ventilator 15.0 35 12/17/18 12:59 91 29 35 12/17/18 12:00 99.6 98 29 118/74 (89) 99 12/17/18 12:00 Mechanical Ventilator 12/17/18 12:00 35 12/17/18 12:00 87 12/17/18 10:55 99 26 35 12/17/18 10:03 99 28 99 Mechanical Ventilator 35 12/17/18 09:53 111 30 99 Mechanical Ventilator 35 12/17/18 09:25 121 32 35 12/17/18 09:00 118 117/69 12/17/18 09:00 118 12/17/18 08:59 118 117/69 12/17/18 08:00 35 12/17/18 08:00 Mechanical Ventilator 12/17/18 08:00 99.8 118 32 117/72 (87) 99 12/17/18 08:00 115 12/17/18 07:26 114 32 35 12/17/18 05:10 99 28 35 12/17/18 04:00 98.2 109 31 104/70 (81) 99 12/17/18 04:00 Mechanical Ventilator 12/17/18 04:00 110 12/17/18 04:00 35 12/17/18 03:07 102 30 35 12/17/18 01:07 99 24 35 12/17/18 00:00 Mechanical Ventilator 12/17/18 00:00 95 12/17/18 00:00 98.2 95 29 100/68 (79) 99 12/16/18 22:49 98 28 35 12/16/18 22:18 94 26 99 Mechanical Ventilator 35 12/16/18 21:59 96 30 99 Mechanical Ventilator 35 12/16/18 21:12 96 27 35 12/16/18 20:39 90 102/65 12/16/18 20:00 97.7 90 25 102/65 (77) 99 12/16/18 20:00 89 12/16/18 20:00 Mechanical Ventilator 12/16/18 20:00 35 12/16/18 19:03 92 28 35 12/16/18 17:38 119 132/72 12/16/18 16:42 98 32 35 12/16/18 16:00 99.0 66 20 104/70 (81) 98 12/16/18 16:00 35 12/16/18 16:00 Mechanical Ventilator Status: awake Condition: critical, grave Neck: full ROM Lungs: rales, rhonchi Heart: HR/BP stable Abdomen: soft, non-tender Extremities: no C/C/E, edema Accucheck: 384 Critical Care - Subjective ROS Limited/Unobtainable: No Condition: critical EKG Rhythm: Sinus Rhythm FI02: 35 Vent Support Breath Rate: 18 Vent Support Mode: AC Vent Tidal Volume: 500 Sputum Amount: Small PEEP: 5.0 PIP: 23 Tube Feeding Amount: 55 I&O: Intake and Output 12/16/18 12/17/18 19:00 07:00 Intake Total 1098.335 ml 660 ml Output Total 1200 ml 1050 ml Balance -101.665 ml -390 ml Intake Free Water 150 ml IV Total 288.335 ml 55 ml Tube Feeding 660 ml 605 ml Output Urine Total 1200 ml 800 ml Stool Total 250 ml CXR: no change Labs: Laboratory Tests Test 12/16/18 19:15 12/17/18 05:00 12/17/18 10:30 12/17/18 13:00 White Blood Count 14.1 K/UL (4.8-10.8) H 13.5 K/UL (4.8-10.8) H Red Blood Count 3.00 M/UL (4.70-6.10) L 3.01 M/UL (4.70-6.10) L Hemoglobin 9.1 G/DL (14.2-18.0) L 9.2 G/DL (14.2-18.0) L Hematocrit 28.6 % (42.0-52.0) L 29.1 % (42.0-52.0) L Mean Corpuscular Volume 95 FL (80-99) 97 FL (80-99) Mean Corpuscular Hemoglobin 30.2 PG (27.0-31.0) 30.5 PG (27.0-31.0) Mean Corpuscular Hemoglobin Concent 31.8 G/DL (32.0-36.0) L 31.5 G/DL (32.0-36.0) L Red Cell Distribution Width 16.6 % (11.6-14.8) H 16.8 % (11.6-14.8) H Platelet Count 165 K/UL (150-450) 179 K/UL (150-450) Mean Platelet Volume 9.1 FL (6.5-10.1) 9.6 FL (6.5-10.1) Neutrophils (%) (Auto) 86.0 % (45.0-75.0) H % (45.0-75.0) Lymphocytes (%) (Auto) 8.6 % (20.0-45.0) L % (20.0-45.0) Monocytes (%) (Auto) 3.2 % (1.0-10.0) % (1.0-10.0) Eosinophils (%) (Auto) 1.6 % (0.0-3.0) % (0.0-3.0) Basophils (%) (Auto) 0.6 % (0.0-2.0) % (0.0-2.0) Sodium Level 150 MMOL/L (136-145) H 148 MMOL/L (136-145) H Potassium Level 5.9 MMOL/L (3.5-5.1) H 6.1 MMOL/L (3.5-5.1) *H 6.2 MMOL/L (3.5-5.1) *H Chloride Level 119 MMOL/L (98-107) H 118 MMOL/L (98-107) H Carbon Dioxide Level 18 MMOL/L (21-32) L 19 MMOL/L (21-32) L Anion Gap 14 mmol/L (5-15) 13 mmol/L (5-15) Blood Urea Nitrogen 31 mg/dL (7-18) H 31 mg/dL (7-18) H Creatinine 0.9 MG/DL (0.55-1.30) 0.8 MG/DL (0.55-1.30) Estimat Glomerular Filtration Rate mL/min (>60) mL/min (>60) Glucose Level 264 MG/DL (74-106) H 281 MG/DL (74-106) H Calcium Level 8.3 MG/DL (8.5-10.1) L 9.1 MG/DL (8.5-10.1) Differential Total Cells Counted 100 Neutrophils % (Manual) 90 % (45-75) H Lymphocytes % (Manual) 6 % (20-45) L Monocytes % (Manual) 3 % (1-10) Eosinophils % (Manual) 1 % (0-3) Basophils % (Manual) 0 % (0-2) Band Neutrophils 0 % (0-8) Platelet Estimate Adequate Platelet Morphology Normal Hypochromasia 2+ Anisocytosis 1+ Total Bilirubin 0.2 MG/DL (0.2-1.0) Aspartate Amino Transf (AST/SGOT) 24 U/L (15-37) Alanine Aminotransferase (ALT/SGPT) 25 U/L (12-78) Alkaline Phosphatase 121 U/L (46-116) H Ammonia 46 umol/L (11-32) H Total Protein 7.5 G/DL (6.4-8.2) Albumin 1.4 G/DL (3.4-5.0) L Globulin 6.1 g/dL Albumin/Globulin Ratio 0.2 (1.0-2.7) L Amylase Level 169 U/L (25-115) H Lipase 948 U/L (73-393) H Carcinoembryonic Antigen Pending CA 19-9 Antigen Pending Stool Occult Blood Pending Phosphorus Level 2.5 MG/DL (2.5-4.9) C-Reactive Protein, Quantitative Pending Abhishek Guerra MD Dec 17, 2018 15:48
[2018-12-17 16:00] VITALS: BP 130/76
[2018-12-17] MEDS ORDERED: Sodium Polystyrene Sulfon/Sorb 15gm/60ml Susp ORAL SCH (17:00)
--- NOTE | 2018-12-17 19:24 | NUR ---
RESPIRATORY NOTE: Received pt. on 840 vent. Vent settings are: A/C rate of 18, Vt 500, FI02 35%, PEEP +5. Pt. Sp02 @ 99%, no respiratory distress noted. Ambu bag @ BS. Vent plugged on red outlet. Will continue to monitor pt.
--- NOTE | 2018-12-17 19:34 | NUR ---
NURSE NOTES: Hand off to Allison RN. Patient awake and resting comfortably.
--- NOTE | 2018-12-17 19:35 | NUR ---
NURSE NOTES: RECEIVED PT FROM SHAKIR DIAZ. PT IS RESTING IN BED, MOSTLY NONVERBAL, ABLE TO FORM SOME WORDS, ANSWER QUESTIONS YES/NO. PT IS LETHARGIC, NEEDS TO BE STIMULATED TO AWAKEN. MECHANICAL VENTILATION PORTEX 8, AC 16, TV 500, FIOS 35, PEEP 5. CGTF RUNNING GLUCERNA 1.2 @ 55; NO RESIDUAL. RUQ COLOSTOMY NOTED, DARK DRAINAGE. SUPRAPUBIC CATHETER NOTED, DRAINING. EDA PICC; ASYMPTOMATIC. ACCUCHEK Q4. BED IS LOCKED IN LOWEST POSITION, SR X3, CALL TOMAS W/ IN REACH, BED ALARM ON. WILL CONTINUE TO MONITOR AND FOLLOW W/ PLAN OF CARE.
[2018-12-17 20:00] VITALS: BP 126/77
[2018-12-17] MEDS: Dyna-Hex 2% Top Sol 2oz TOPIC SCH (20:40)
--- NOTE | 2018-12-17 22:30 | Cardiology Progress Note ---
Assessment/Plan Assessment/Plan atrial tachycardi versus slow flutter, curretnly is at 2:1 rate controlled Subjective Subjective the patient is on vent and trach, he is not interating, making some sounds Objective Last 24 Hour Vital Signs Date Time Temp Pulse Resp B/P (MAP) Pulse Ox O2 Delivery O2 Flow Rate FiO2 12/17/18 21:25 97 26 100 Mechanical Ventilator 35 12/17/18 21:20 92 26 35 12/17/18 20:40 100 126/77 12/17/18 20:00 35 12/17/18 20:00 Mechanical Ventilator 12/17/18 20:00 95 12/17/18 20:00 99.4 100 34 126/77 (93) 97 12/17/18 19:22 98 30 35 12/17/18 17:31 99 130/76 12/17/18 17:07 99 32 35 12/17/18 16:00 Mechanical Ventilator 12/17/18 16:00 99.1 99 29 130/76 (94) 99 12/17/18 16:00 35 12/17/18 15:36 97 12/17/18 14:58 94 27 35 12/17/18 13:35 99 30 Mechanical Ventilator 15.0 35 12/17/18 12:59 91 29 35 12/17/18 12:00 99.6 98 29 118/74 (89) 99 12/17/18 12:00 Mechanical Ventilator 12/17/18 12:00 35 12/17/18 12:00 87 12/17/18 10:55 99 26 35 12/17/18 10:03 99 28 99 Mechanical Ventilator 35 12/17/18 09:53 111 30 99 Mechanical Ventilator 35 12/17/18 09:25 121 32 35 12/17/18 09:00 118 117/69 12/17/18 09:00 118 12/17/18 08:59 118 117/69 12/17/18 08:00 35 12/17/18 08:00 Mechanical Ventilator 12/17/18 08:00 99.8 118 32 117/72 (87) 99 12/17/18 08:00 115 12/17/18 07:26 114 32 35 12/17/18 05:10 99 28 35 12/17/18 04:00 98.2 109 31 104/70 (81) 99 12/17/18 04:00 Mechanical Ventilator 12/17/18 04:00 110 12/17/18 04:00 35 12/17/18 03:07 102 30 35 12/17/18 01:07 99 24 35 12/17/18 00:00 Mechanical Ventilator 12/17/18 00:00 95 12/17/18 00:00 98.2 95 29 100/68 (79) 99 12/16/18 22:49 98 28 35 General Appearance: on vent EENT: PERRL/EOMI Neck: other - trach Rhythm: other - atrial tachycarida Cardiovascular: tachycardia Respiratory/Chest: crackles/rales Abdomen: soft, other - g tube Intake and Output 12/16/18 12/17/18 19:00 07:00 Intake Total 1098.335 ml 660 ml Output Total 1200 ml 1050 ml Balance -101.665 ml -390 ml Intake Free Water 150 ml IV Total 288.335 ml 55 ml Tube Feeding 660 ml 605 ml Output Urine Total 1200 ml 800 ml Stool Total 250 ml Laboratory Tests Test 12/17/18 05:00 12/17/18 10:30 12/17/18 13:00 White Blood Count 13.5 K/UL (4.8-10.8) H Red Blood Count 3.01 M/UL (4.70-6.10) L Hemoglobin 9.2 G/DL (14.2-18.0) L Hematocrit 29.1 % (42.0-52.0) L Mean Corpuscular Volume 97 FL (80-99) Mean Corpuscular Hemoglobin 30.5 PG (27.0-31.0) Mean Corpuscular Hemoglobin Concent 31.5 G/DL (32.0-36.0) L Red Cell Distribution Width 16.8 % (11.6-14.8) H Platelet Count 179 K/UL (150-450) Mean Platelet Volume 9.6 FL (6.5-10.1) Neutrophils (%) (Auto) % (45.0-75.0) Lymphocytes (%) (Auto) % (20.0-45.0) Monocytes (%) (Auto) % (1.0-10.0) Eosinophils (%) (Auto) % (0.0-3.0) Basophils (%) (Auto) % (0.0-2.0) Differential Total Cells Counted 100 Neutrophils % (Manual) 90 % (45-75) H Lymphocytes % (Manual) 6 % (20-45) L Monocytes % (Manual) 3 % (1-10) Eosinophils % (Manual) 1 % (0-3) Basophils % (Manual) 0 % (0-2) Band Neutrophils 0 % (0-8) Platelet Estimate Adequate Platelet Morphology Normal Hypochromasia 2+ Anisocytosis 1+ Sodium Level 148 MMOL/L (136-145) H Potassium Level 6.1 MMOL/L (3.5-5.1) *H 6.2 MMOL/L (3.5-5.1) *H Chloride Level 118 MMOL/L (98-107) H Carbon Dioxide Level 19 MMOL/L (21-32) L Anion Gap 13 mmol/L (5-15) Blood Urea Nitrogen 31 mg/dL (7-18) H Creatinine 0.8 MG/DL (0.55-1.30) Estimat Glomerular Filtration Rate mL/min (>60) Glucose Level 281 MG/DL (74-106) H Calcium Level 9.1 MG/DL (8.5-10.1) Total Bilirubin 0.2 MG/DL (0.2-1.0) Aspartate Amino Transf (AST/SGOT) 24 U/L (15-37) Alanine Aminotransferase (ALT/SGPT) 25 U/L (12-78) Alkaline Phosphatase 121 U/L (46-116) H Ammonia 46 umol/L (11-32) H Total Protein 7.5 G/DL (6.4-8.2) Albumin 1.4 G/DL (3.4-5.0) L Globulin 6.1 g/dL Albumin/Globulin Ratio 0.2 (1.0-2.7) L Amylase Level 169 U/L (25-115) H Lipase 948 U/L (73-393) H Carcinoembryonic Antigen Pending CA 19-9 Antigen Pending Stool Occult Blood Pending Phosphorus Level 2.5 MG/DL (2.5-4.9) C-Reactive Protein, Quantitative 24.5 mg/dL (0.00-0.90) H Krista Gomez MD Dec 17, 2018 22:30
[2018-12-18] VITALS: BP 115/68
[2018-12-18 04:00] VITALS: BP 124/71
[2018-12-18] MEDS: NovoLOG Insulin Flexpen SUBQ SCH ×5 (04:47→20:53)
[2018-12-18] MEDS: Aztreonam Inj 1 GM in D5W 55 ML IVPB SCH ×3 (05:02→22:46)
[2018-12-18 06:20] LABS: BASOPHILS % (AUTO) 0.5 % (0.0-2.0); EOSINOPHILS % (AUTO) 1.8 % (0.0-3.0); HEMATOCRIT 27.2 % (42.0-52.0); HEMOGLOBIN 8.4 G/DL (14.2-18.0); LYMPHOCYTES % (AUTO) 10.4 % (20.0-45.0); MEAN CORPUSCULAR VOLUME 96 FL (80-99); MONOCYTES % (AUTO) 3.5 % (1.0-10.0); NEUTROPHILS % (AUTO) 83.8 % (45.0-75.0); PLATELET COUNT 188 K/UL (150-450); RED BLOOD COUNT 2.82 M/UL (4.70-6.10); WHITE BLOOD COUNT 11.2 K/UL (4.8-10.8)
[2018-12-18] MEDS ORDERED: sitaGLIPtin 50mg tab ORAL SCH (06:30)
[2018-12-18 06:33] LABS: ALANINE AMINOTRANSFERASE 18 U/L (12-78); ALBUMIN 1.3 G/DL (3.4-5.0); ALBUMIN/GLOBULIN RATIO 0.2 (1.0-2.7); ALKALINE PHOSPHATASE 113 U/L (46-116); AMYLASE 138 U/L (25-115); ANION GAP 10 mmol/L (5-15); ASPARTATE AMINO TRANSFERASE 17 U/L (15-37); BILIRUBIN,TOTAL 0.1 MG/DL (0.2-1.0); BLOOD UREA NITROGEN 35 mg/dL (7-18); CALCIUM 8.7 MG/DL (8.5-10.1); CARBON DIOXIDE 21 MMOL/L (21-32); CHLORIDE 117 MMOL/L (98-107); CREATININE 0.8 MG/DL (0.55-1.30); POTASSIUM 4.5 MMOL/L (3.5-5.1); SODIUM 148 MMOL/L (136-145)
[2018-12-18 06:52] LABS: PHOSPHORUS 3.1 MG/DL (2.5-4.9)
--- NOTE | 2018-12-18 07:00 | Progress Note ---
DATE: 12/17/2018 SUBJECTIVE: The patient is awake, alert, afebrile, and hemodynamically stable. However, his attention span is short. The patient is somnolent most of the day. PHYSICAL EXAMINATION: VITAL SIGNS: Blood pressure is 126/77, his pulse is 97, respirations 26, and temperature was 99.4 degrees. HEENT: Eyes were normal. ENT, mucous membranes were moist and intact. NECK: Supple with no JVD without lymph nodes. Tracheostomy site is clean. LUNGS: Clear without rhonchi, rales, or wheezing. Secretions are small, thin, and clear. HEART: Normal sounds with regular beats. There is no S3, S4, or pericardial rub. There is near tachycardia at rest. Heartbeat is between 95 to 100. ABDOMEN: Soft and nontender with normal bowel sounds. Gastrostomy site is clean. EXTREMITIES: Warm without cyanosis, clubbing, or edema. LABORATORY AND DIAGNOSTIC DATA: Hemoglobin is 8.2, hematocrit 29.1 with MCV of 97, WBC of 13.5, and platelets are 179,000. His WBC was 13,000 yesterday and 16,000 the previous day. His BUN and creatinine are 31 and 0.8 respectively. Sodium is 148, potassium is 3.1, chloride 118, and CO2 is 19. Phosphorus is 2.5. His CRP is 34.5. Albumin is 1.4. Troponin is 6.1. Total protein is 7.5. Amylase is 169 and lipase is 948. IMPRESSION: 1. The patient's mental status is obtunded. The patient with unknown cause acute pancreatitis. 2. The patient is respirator dependent. Continue with the same respirator setting. Continue with albuterol sulfate and ipratropium bromide inhalation therapy every 6 hours. 3. The patient is being treated now for two infections. The patient has Proteus in the urine and in the blood and even in sputum, in which he completed 9 of 14 days and recently the patient has sputum with Pseudomonas and I think placed him on aztreonam for the Proteus and tobramycin for the Pseudomonas MDR and well as daptomycin. We will continue with the current regimen. Repeat laboratory tests will be done in a.m. Neema Hutchins M.D. DR: DIANE JOB#: [id number] CC:
--- NOTE | 2018-12-18 07:01 | NUR ---
HAND-OFF: Report given to SHAKIR COCHRAN.
--- NOTE | 2018-12-18 07:29 | NUR ---
NURSE NOTES: Received patient from Lolly Alegria RN. Patient is awake and Neuro x1. Patient is on Portex 7 with settings AC 18, TV 500, FiO2 35%, PEEP 5. G-Tube is patent and is receiving Glucerna 1.2 @55cc/hr. Patient has a suprapubic catheter that is patent and intact. Right upper quadrant colostomy bag is in place and draining. Patient has Left upper arm PICC line that is patent and intact. Bed is locked, placed in lowest position, side rails up x3, call light within reach. Will continue to monitor.
[2018-12-18 08:00] VITALS: BP 126/75
[2018-12-18] MEDS: Phospha 250 Neutral tab GT SCH ×2 (09:31→12:43)
[2018-12-18] MEDS: metFORMIN 500mg tab ORAL SCH ×2 (09:31→18:20)
[2018-12-18] MEDS: dilTIAZem HCl 30mg tab GT SCH ×2 (09:32→18:22)
[2018-12-18] MEDS: Atenolol 25mg tab ORAL SCH ×2 (09:32→20:49)
[2018-12-18] MEDS: Heparin 5000 units/ml inj SUBQ SCH ×2 (09:35→20:52)
[2018-12-18] MEDS: Tobramycin for inhalation INH SCH ×2 (10:00→22:06)
--- NOTE | 2018-12-18 10:43 | General Progress Note ---
Assessment/Plan Problem List: (1) Tracheostomy in place ICD Codes: Z98.89 - Other specified postprocedural states SNOMED: 792853859 (2) Acute and chronic respiratory failure ICD Codes: J96.20 - Acute and chronic respiratory failure, unspecified whether with hypoxia or hypercapnia SNOMED: 03288660, 70810195 (3) Decubitus ulcer of sacral region, stage 2 ICD Codes: L89.152 - Pressure ulcer of sacral region, stage 2 SNOMED: 987671157, 506418149 (4) Cerebral vascular disease ICD Codes: I67.9 - Cerebrovascular disease, unspecified SNOMED: 54245127 (5) Colostomy care ICD Codes: Z43.3 - Encounter for attention to colostomy SNOMED: 390228111 (6) Hypertension ICD Codes: I10 - Essential (primary) hypertension SNOMED: 74171792 (7) Diabetes mellitus, type II ICD Codes: E11.9 - Type 2 diabetes mellitus without complications SNOMED: 10864983 (8) Feeding by G-tube ICD Codes: Z93.1 - Gastrostomy status SNOMED: 230597616, 129252997 (9) Anemia ICD Codes: D64.9 - Anemia, unspecified SNOMED: 274972960 (10) Pancreatitis ICD Codes: K85.90 - Acute pancreatitis without necrosis or infection, unspecified SNOMED: 71316560 Assessment/Plan fu H&H ppi daily lopid GTF fu labs replace mag tumor markers fu stool ob Subjective ROS Limited/Unobtainable: No Allergies: Coded Allergies: PENICILLINS (Unverified Allergy, Unknown, 02/26/16) POLYMYXIN B (Unverified Allergy, Unknown, 02/26/16) VANCOMYCIN (Unverified Allergy, Unknown, 02/26/16) Objective Last 24 Hour Vital Signs Date Time Temp Pulse Resp B/P (MAP) Pulse Ox O2 Delivery O2 Flow Rate FiO2 12/18/18 09:32 112 126/75 12/18/18 09:32 112 124/71 12/18/18 09:32 112 12/18/18 09:00 112 31 35 12/18/18 08:00 Mechanical Ventilator 12/18/18 08:00 35 12/18/18 08:00 99.3 112 35 126/75 (92) 99 12/18/18 06:54 107 33 35 12/18/18 05:29 95 28 35 12/18/18 04:00 98.6 93 38 124/71 (88) 99 12/18/18 04:00 90 12/18/18 04:00 Mechanical Ventilator 12/18/18 04:00 35 12/18/18 03:07 93 25 35 12/18/18 01:00 95 28 35 12/18/18 00:00 35 12/18/18 00:00 Mechanical Ventilator 12/18/18 00:00 99.0 94 26 115/68 (84) 99 12/18/18 00:00 98 12/17/18 23:15 93 29 35 12/17/18 21:35 98 28 100 Mechanical Ventilator 35 12/17/18 21:25 97 26 100 Mechanical Ventilator 35 12/17/18 21:20 92 26 35 12/17/18 20:40 100 126/77 12/17/18 20:00 35 12/17/18 20:00 Mechanical Ventilator 12/17/18 20:00 95 12/17/18 20:00 99.4 100 34 126/77 (93) 97 12/17/18 19:22 98 30 35 12/17/18 17:31 99 130/76 12/17/18 17:07 99 32 35 12/17/18 16:00 Mechanical Ventilator 12/17/18 16:00 99.1 99 29 130/76 (94) 99 12/17/18 16:00 35 12/17/18 15:36 97 12/17/18 14:58 94 27 35 12/17/18 13:35 99 30 Mechanical Ventilator 15.0 35 12/17/18 12:59 91 29 35 12/17/18 12:00 99.6 98 29 118/74 (89) 99 12/17/18 12:00 Mechanical Ventilator 12/17/18 12:00 35 12/17/18 12:00 87 12/17/18 10:55 99 26 35 Intake and Output 12/17/18 12/18/18 19:00 07:00 Intake Total 110 ml 805 ml Output Total 1390 ml 1275 ml Balance -1280 ml -470 ml Intake Free Water 90 ml IV Total 110 ml Tube Feeding 110 ml 605 ml Output Urine Total 950 ml 800 ml Stool Total 440 ml 475 ml Laboratory Tests 12/17/18 13:00: Potassium Level 6.2*H, Phosphorus Level 2.5, C-Reactive Protein, Quantitative 24.5H 12/18/18 04:00: Potassium Level 4.5, Phosphorus Level 3.1, White Blood Count 11.2H, Red Blood Count 2.82L, Hemoglobin 8.4L, Hematocrit 27.2L, Mean Corpuscular Volume 96, Mean Corpuscular Hemoglobin 30.0, Mean Corpuscular Hemoglobin Concent 31.1L, Red Cell Distribution Width 17.0H, Platelet Count 188, Mean Platelet Volume 10.1 , Neutrophils (%) (Auto) 83.8H, Lymphocytes (%) (Auto) 10.4L, Monocytes (%) ( Auto) 3.5, Eosinophils (%) (Auto) 1.8, Basophils (%) (Auto) 0.5, Sodium Level 148H, Chloride Level 117H, Carbon Dioxide Level 21, Anion Gap 10, Blood Urea Nitrogen 35H, Creatinine 0.8, Estimat Glomerular Filtration Rate , Glucose Level 306H, Uric Acid 4.3, Calcium Level 8.7, Magnesium Level 1.5L, Total Bilirubin 0.1L, Aspartate Amino Transf (AST/SGOT) 17, Alanine Aminotransferase ( ALT/SGPT) 18, Alkaline Phosphatase 113, Pro-B-Type Natriuretic Peptide 826H, Total Protein 7.2, Albumin 1.3L, Globulin 5.9, Albumin/Globulin Ratio 0.2L, Amylase Level 138H, Lipase 796H Height (Feet): 5 Height (Inches): 8.00 Weight (Pounds): 140 General Appearance: no apparent distress EENT: PERRL/EOMI Neck: supple Cardiovascular: normal rate Respiratory/Chest: decreased breath sounds Abdomen: normal bowel sounds, non tender, soft Extremities: non-tender Benjamin Jackson MD Dec 18, 2018 10:43
[2018-12-18 12:00] VITALS: BP 104/63
[2018-12-18] MEDS: Acetaminophen 650mg/20.3ml GT PRN (12:44)
--- NOTE | 2018-12-18 14:00 | Pulmonolgy Critical Care Note ---
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 Respiratory: monitor respiratory rate, adjust FIO2, CXR Cardiac: continue to monitor HR/BP Renal: F/U I&O, keep IV fluid, check electrolytes Infectious Disease: check cultures, continue antibiotics Gastrointestinal: continue feedings/current rate Endocrine: monitor blood sugar Neurologic: PRN Ativan Affect: PRN ativan Prophylaxis: Heparin Time Spent (Minutes): 40 Notes Reviewed: cardio, 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 with: nurses, case reviewerdev manager - Objective Last 24 Hour Vital Signs Date Time Temp Pulse Resp B/P (MAP) Pulse Ox O2 Delivery O2 Flow Rate FiO2 12/18/18 12:55 106 29 35 12/18/18 11:29 106 29 35 12/18/18 10:22 109 12/18/18 10:00 Mechanical Ventilator 35 12/18/18 10:00 Mechanical Ventilator 35 12/18/18 09:32 112 126/75 12/18/18 09:32 112 124/71 12/18/18 09:32 112 12/18/18 09:00 112 31 35 12/18/18 08:00 Mechanical Ventilator 12/18/18 08:00 35 12/18/18 08:00 99.3 112 35 126/75 (92) 99 12/18/18 06:54 107 33 35 12/18/18 05:29 95 28 35 12/18/18 04:00 98.6 93 38 124/71 (88) 99 12/18/18 04:00 90 12/18/18 04:00 Mechanical Ventilator 12/18/18 04:00 35 12/18/18 03:07 93 25 35 12/18/18 01:00 95 28 35 12/18/18 00:00 35 12/18/18 00:00 Mechanical Ventilator 12/18/18 00:00 99.0 94 26 115/68 (84) 99 12/18/18 00:00 98 12/17/18 23:15 93 29 35 12/17/18 21:35 98 28 100 Mechanical Ventilator 35 12/17/18 21:25 97 26 100 Mechanical Ventilator 35 12/17/18 21:20 92 26 35 12/17/18 20:40 100 126/77 12/17/18 20:00 35 12/17/18 20:00 Mechanical Ventilator 12/17/18 20:00 95 12/17/18 20:00 99.4 100 34 126/77 (93) 97 12/17/18 19:22 98 30 35 12/17/18 17:31 99 130/76 12/17/18 17:07 99 32 35 12/17/18 16:00 Mechanical Ventilator 12/17/18 16:00 99.1 99 29 130/76 (94) 99 12/17/18 16:00 35 12/17/18 15:36 97 12/17/18 14:58 94 27 35 Status: awake Condition: critical HEENT: atraumatic Neck: full ROM, trach Lungs: clear Heart: HR/BP stable Abdomen: soft, active bowel sounds Extremities: no C/C/E Decubiti: location Accucheck: 339 Critical Care - Subjective Interval Events: comfortable FI02: 35 Vent Support Breath Rate: 18 Vent Support Mode: AC Vent Tidal Volume: 500 Sputum Amount: Small PEEP: 5.0 PIP: 28 Tube Feeding Amount: 55 I&O: Intake and Output 12/17/18 12/18/18 19:00 07:00 Intake Total 110 ml 805 ml Output Total 1390 ml 1275 ml Balance -1280 ml -470 ml Intake Free Water 90 ml IV Total 110 ml Tube Feeding 110 ml 605 ml Output Urine Total 950 ml 800 ml Stool Total 440 ml 475 ml Labs: Laboratory Tests Test 12/18/18 04:00 White Blood Count 11.2 K/UL (4.8-10.8) H Red Blood Count 2.82 M/UL (4.70-6.10) L Hemoglobin 8.4 G/DL (14.2-18.0) L Hematocrit 27.2 % (42.0-52.0) L Mean Corpuscular Volume 96 FL (80-99) Mean Corpuscular Hemoglobin 30.0 PG (27.0-31.0) Mean Corpuscular Hemoglobin Concent 31.1 G/DL (32.0-36.0) L Red Cell Distribution Width 17.0 % (11.6-14.8) H Platelet Count 188 K/UL (150-450) Mean Platelet Volume 10.1 FL (6.5-10.1) Neutrophils (%) (Auto) 83.8 % (45.0-75.0) H Lymphocytes (%) (Auto) 10.4 % (20.0-45.0) L Monocytes (%) (Auto) 3.5 % (1.0-10.0) Eosinophils (%) (Auto) 1.8 % (0.0-3.0) Basophils (%) (Auto) 0.5 % (0.0-2.0) Sodium Level 148 MMOL/L (136-145) H Potassium Level 4.5 MMOL/L (3.5-5.1) Chloride Level 117 MMOL/L (98-107) H Carbon Dioxide Level 21 MMOL/L (21-32) Anion Gap 10 mmol/L (5-15) Blood Urea Nitrogen 35 mg/dL (7-18) H Creatinine 0.8 MG/DL (0.55-1.30) Estimat Glomerular Filtration Rate mL/min (>60) Glucose Level 306 MG/DL (74-106) H Uric Acid 4.3 MG/DL (2.6-7.2) Calcium Level 8.7 MG/DL (8.5-10.1) Phosphorus Level 3.1 MG/DL (2.5-4.9) Magnesium Level 1.5 MG/DL (1.8-2.4) L Total Bilirubin 0.1 MG/DL (0.2-1.0) L Aspartate Amino Transf (AST/SGOT) 17 U/L (15-37) Alanine Aminotransferase (ALT/SGPT) 18 U/L (12-78) Alkaline Phosphatase 113 U/L (46-116) Pro-B-Type Natriuretic Peptide 826 pg/mL (0-125) H Total Protein 7.2 G/DL (6.4-8.2) Albumin 1.3 G/DL (3.4-5.0) L Globulin 5.9 g/dL Albumin/Globulin Ratio 0.2 (1.0-2.7) L Amylase Level 138 U/L (25-115) H Lipase 796 U/L (73-393) H Abhishek Guerra MD Dec 18, 2018 14:00
[2018-12-18 16:00] VITALS: BP 111/62
--- NOTE | 2018-12-18 18:18 | Nephrology Progress Note ---
Assessment/Plan Problem List: (1) ATN (acute tubular necrosis) (2) Anemia (3) Feeding by G-tube (4) Acute and chronic respiratory failure (5) UTI (urinary tract infection) (6) Hyponatremia Assessment Patient have mainly Pre Renal Azotemia with possible underlying CKD- Low Na partly depletional, partly due to Hyperglycemia RESOLVED Other conditions as outlined: (1) Acute and chronic respiratory failure ([id number]) (2) Sepsis (3) Malnutrition and HypoAlbuminemia (4) UTI (urinary tract infection) (5) Anemia (6) Diabetes mellitus, type II (7) Colostomy care (8) Cerebral vascular disease (9) Decubitus ulcer of sacral region, stage 2 (10) Feeding by G-tube (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 Plan transfused total 2 units Kayexelate for high K given 12/17 start Starlix Hydrate- change IV to D5 now 50 cc / h up dose digoxin and tenormin K and Phos supplement as needed Keep electrolytes in check Keep BS and BP in check Subjective ROS Limited/Unobtainable: Yes Objective Objective Last 24 Hour Vital Signs Date Time Temp Pulse Resp B/P (MAP) Pulse Ox O2 Delivery O2 Flow Rate FiO2 12/18/18 17:29 88 29 35 12/18/18 16:00 97.7 89 33 111/62 (78) 100 12/18/18 16:00 35 12/18/18 16:00 Mechanical Ventilator 12/18/18 15:29 81 30 35 12/18/18 15:20 91 12/18/18 13:14 99.7 12/18/18 12:55 106 29 35 12/18/18 12:00 35 12/18/18 12:00 Mechanical Ventilator 12/18/18 12:00 101.6 103 38 104/63 (77) 99 12/18/18 11:29 106 29 35 12/18/18 11:17 109 12/18/18 10:22 109 12/18/18 10:00 Mechanical Ventilator 35 12/18/18 10:00 Mechanical Ventilator 35 12/18/18 09:32 112 126/75 12/18/18 09:32 112 124/71 12/18/18 09:32 112 12/18/18 09:00 112 31 35 12/18/18 08:00 Mechanical Ventilator 12/18/18 08:00 35 12/18/18 08:00 99.3 112 35 126/75 (92) 99 12/18/18 06:54 107 33 35 12/18/18 05:29 95 28 35 12/18/18 04:00 98.6 93 38 124/71 (88) 99 12/18/18 04:00 90 12/18/18 04:00 Mechanical Ventilator 12/18/18 04:00 35 12/18/18 03:07 93 25 35 12/18/18 01:00 95 28 35 12/18/18 00:00 35 12/18/18 00:00 Mechanical Ventilator 12/18/18 00:00 99.0 94 26 115/68 (84) 99 12/18/18 00:00 98 12/17/18 23:15 93 29 35 12/17/18 21:35 98 28 100 Mechanical Ventilator 35 12/17/18 21:25 97 26 100 Mechanical Ventilator 35 12/17/18 21:20 92 26 35 12/17/18 20:40 100 126/77 12/17/18 20:00 35 12/17/18 20:00 Mechanical Ventilator 12/17/18 20:00 95 12/17/18 20:00 99.4 100 34 126/77 (93) 97 12/17/18 19:22 98 30 35 Intake and Output 12/17/18 12/18/18 19:00 07:00 Intake Total 110 ml 805 ml Output Total 1390 ml 1275 ml Balance -1280 ml -470 ml Intake Free Water 90 ml IV Total 110 ml Tube Feeding 110 ml 605 ml Output Urine Total 950 ml 800 ml Stool Total 440 ml 475 ml Laboratory Tests 12/18/18 04:00: White Blood Count 11.2H, Red Blood Count 2.82L, Hemoglobin 8.4L, Hematocrit 27.2L, Mean Corpuscular Volume 96, Mean Corpuscular Hemoglobin 30.0, Mean Corpuscular Hemoglobin Concent 31.1L, Red Cell Distribution Width 17.0H, Platelet Count 188, Mean Platelet Volume 10.1, Neutrophils (%) (Auto) 83.8H, Lymphocytes (%) (Auto) 10.4L, Monocytes (%) (Auto) 3.5, Eosinophils (%) (Auto) 1.8, Basophils (%) (Auto) 0.5, Sodium Level 148H, Potassium Level 4.5, Chloride Level 117H, Carbon Dioxide Level 21, Anion Gap 10, Blood Urea Nitrogen 35H, Creatinine 0.8, Estimat Glomerular Filtration Rate , Glucose Level 306H, Uric Acid 4.3, Calcium Level 8.7, Phosphorus Level 3.1, Magnesium Level 1.5L, Total Bilirubin 0.1L, Aspartate Amino Transf (AST/SGOT) 17, Alanine Aminotransferase ( ALT/SGPT) 18, Alkaline Phosphatase 113, Pro-B-Type Natriuretic Peptide 826H, Total Protein 7.2, Albumin 1.3L, Globulin 5.9, Albumin/Globulin Ratio 0.2L, Amylase Level 138H, Lipase 796H Height (Feet): 5 Height (Inches): 8.00 Weight (Pounds): 140 General Appearance: no apparent distress Objective no change Migue Moreland MD Dec 18, 2018 18:18
--- NOTE | 2018-12-18 19:05 | NUR ---
HAND-OFF: Report given to Terrie Alexander RN.
--- NOTE | 2018-12-18 19:10 | NUR ---
NURSE NOTES: Observed pt awake, but non verbal. No signs of SOB. Current vent setting is Portex 7 with settings AC 18, TV 500, FiO2 35%, PEEP 5. G-Tube intact and receiving Glucerna 1.2 @55cc/hr. Pt has a suprapubic catheter that is patent and intact. Right upper quadrant colostomy bag is in place and draining. PICC L UA, intact and patent. Bed in the lowest position. Side rails up x3. Will continue to monitor.
[2018-12-18] MEDS ORDERED: Tubing IV Secondary IV ONE ×3 (19:37→20:05)
[2018-12-18] MEDS ORDERED: NS 500ML ONE (19:37)
[2018-12-18 20:00] VITALS: BP 117/71
[2018-12-18] MEDS ORDERED: Sterile Water Irrig 1000ml IRRIG ONE (20:03)
[2018-12-18] MEDS ORDERED: NS 275ml ONE ×2 (20:03→20:05)
[2018-12-18] MEDS ORDERED: Tubing Blood Filter IV ONE (20:05)
[2018-12-18] MEDS: Dyna-Hex 2% Top Sol 2oz TOPIC SCH (20:49)
--- NOTE | 2018-12-18 22:09 | Cardiology Progress Note ---
Assessment/Plan Assessment/Plan atrial tachycardi versus slow flutter, curretnly is at 2:1 rate controlled Subjective Subjective the patient is on vent and trach, he is not interating, making some sounds Objective Last 24 Hour Vital Signs Date Time Temp Pulse Resp B/P (MAP) Pulse Ox O2 Delivery O2 Flow Rate FiO2 12/18/18 22:06 101 30 99 Mechanical Ventilator 35 12/18/18 20:49 85 117/71 12/18/18 20:36 95 29 35 12/18/18 19:00 92 29 35 12/18/18 18:22 89 111/62 12/18/18 17:29 88 29 35 12/18/18 16:00 97.7 89 33 111/62 (78) 100 12/18/18 16:00 35 12/18/18 16:00 Mechanical Ventilator 12/18/18 15:29 81 30 35 12/18/18 15:20 91 12/18/18 13:14 99.7 12/18/18 12:55 106 29 35 12/18/18 12:00 35 12/18/18 12:00 Mechanical Ventilator 12/18/18 12:00 101.6 103 38 104/63 (77) 99 12/18/18 11:29 106 29 35 12/18/18 11:17 109 12/18/18 10:22 109 12/18/18 10:00 Mechanical Ventilator 35 12/18/18 10:00 Mechanical Ventilator 35 12/18/18 09:32 112 126/75 12/18/18 09:32 112 124/71 12/18/18 09:32 112 12/18/18 09:00 112 31 35 12/18/18 08:00 Mechanical Ventilator 12/18/18 08:00 35 12/18/18 08:00 99.3 112 35 126/75 (92) 99 12/18/18 06:54 107 33 35 12/18/18 05:29 95 28 35 12/18/18 04:00 98.6 93 38 124/71 (88) 99 12/18/18 04:00 90 12/18/18 04:00 Mechanical Ventilator 12/18/18 04:00 35 12/18/18 03:07 93 25 35 12/18/18 01:00 95 28 35 12/18/18 00:00 35 12/18/18 00:00 Mechanical Ventilator 12/18/18 00:00 99.0 94 26 115/68 (84) 99 12/18/18 00:00 98 12/17/18 23:15 93 29 35 General Appearance: on vent EENT: PERRL/EOMI Neck: no JVD, other - trach Rhythm: SVT Cardiovascular: tachycardia Respiratory/Chest: rhonchi - bilaterally Abdomen: soft Intake and Output 12/17/18 12/18/18 19:00 07:00 Intake Total 110 ml 860 ml Output Total 1390 ml 1275 ml Balance -1280 ml -415 ml Intake Free Water 90 ml IV Total 110 ml Tube Feeding 110 ml 660 ml Output Urine Total 950 ml 800 ml Stool Total 440 ml 475 ml Laboratory Tests Test 12/18/18 04:00 White Blood Count 11.2 K/UL (4.8-10.8) H Red Blood Count 2.82 M/UL (4.70-6.10) L Hemoglobin 8.4 G/DL (14.2-18.0) L Hematocrit 27.2 % (42.0-52.0) L Mean Corpuscular Volume 96 FL (80-99) Mean Corpuscular Hemoglobin 30.0 PG (27.0-31.0) Mean Corpuscular Hemoglobin Concent 31.1 G/DL (32.0-36.0) L Red Cell Distribution Width 17.0 % (11.6-14.8) H Platelet Count 188 K/UL (150-450) Mean Platelet Volume 10.1 FL (6.5-10.1) Neutrophils (%) (Auto) 83.8 % (45.0-75.0) H Lymphocytes (%) (Auto) 10.4 % (20.0-45.0) L Monocytes (%) (Auto) 3.5 % (1.0-10.0) Eosinophils (%) (Auto) 1.8 % (0.0-3.0) Basophils (%) (Auto) 0.5 % (0.0-2.0) Sodium Level 148 MMOL/L (136-145) H Potassium Level 4.5 MMOL/L (3.5-5.1) Chloride Level 117 MMOL/L (98-107) H Carbon Dioxide Level 21 MMOL/L (21-32) Anion Gap 10 mmol/L (5-15) Blood Urea Nitrogen 35 mg/dL (7-18) H Creatinine 0.8 MG/DL (0.55-1.30) Estimat Glomerular Filtration Rate mL/min (>60) Glucose Level 306 MG/DL (74-106) H Uric Acid 4.3 MG/DL (2.6-7.2) Calcium Level 8.7 MG/DL (8.5-10.1) Phosphorus Level 3.1 MG/DL (2.5-4.9) Magnesium Level 1.5 MG/DL (1.8-2.4) L Total Bilirubin 0.1 MG/DL (0.2-1.0) L Aspartate Amino Transf (AST/SGOT) 17 U/L (15-37) Alanine Aminotransferase (ALT/SGPT) 18 U/L (12-78) Alkaline Phosphatase 113 U/L (46-116) Pro-B-Type Natriuretic Peptide 826 pg/mL (0-125) H Total Protein 7.2 G/DL (6.4-8.2) Albumin 1.3 G/DL (3.4-5.0) L Globulin 5.9 g/dL Albumin/Globulin Ratio 0.2 (1.0-2.7) L Amylase Level 138 U/L (25-115) H Lipase 796 U/L (73-393) H Krista Gomez MD Dec 18, 2018 22:09
--- NOTE | 2018-12-18 22:52 | General Progress Note ---
Assessment/Plan Assessment/Plan Assessment/Recs: # Leukocytosis/Elevated white blood cell count, unspecified likely related to underlying stress reaction, smoking, or underlying infection (especially if bandemia is noted) --> have reviewed peripheral smear and bandemia/neutrophilia noted --> continue antibiotics if they have been started by ID team --> monitor for resolution ---> WBC trend: 11-->16-->15-->14-->11 # Anemia of chronic disease due to underlying chronic medical issues, multifactorial --> Anemia workup has been reviewed, Ferritin [id number] --> No evidence of hemolysis is noted, peripheral smear has been reviewed. --> Hgb goal >7. Transfuse prn. --> Epogen or iron at this time is not particularly indicated --> Medications have been reviewed -->HGB trend: 7.8-->7.6-->6.2-->6.4->7.1-->8.7-->9.1-->8.4 # Thrombocytopenia - potential causes multifactorial, evaluate liver and viral etiologies to begin, also could be related to underlying medications patient has received. --> Hep panel and HIV negative --> US abd to evaluate for cirrhosis and hsm reviewed --> Peripheral smear ordered to evaluate for blasts /schistocytes --> abx and other meds have been reviewed --> ok for ppx if plt >50k w/ either heparin or lovenox --> Transfuse if Plt < 20k and fever, or if Plt < 10k without fever # Severe prerenal azotemia, on jeanette saline at 150 mL/hr. #Hypouricemia, appreciate Pulmonary real estate listing consultant # Severe Sepsis, CXR: Probable small left pleural effusion, also evident on prior study 11/22/2017. -->appreciate ID recs # [email or web address], likely from UTI The timing of this note does not necessarily reflect the time of the patient was seen. Greatly appreciate consultation! Subjective Allergies: Coded Allergies: PENICILLINS (Unverified Allergy, Unknown, 02/26/16) POLYMYXIN B (Unverified Allergy, Unknown, 02/26/16) VANCOMYCIN (Unverified Allergy, Unknown, 02/26/16) Subjective 12/11: seen by bedside, vent dependent, leukocytosis, 11, hgb 7, will transfuse, no events 12/12: awake, comfortable wbc trending up at 16, no events 12/13: hgb 6.4, receiving transfusion, , wbc remains elevated. no acute events 12/14: seen by bedside, awake, comfortable low grade fever, wbc remains elevated at 15, bacteremia on IV Abx, hgb 7.1, will transfuse as needed 12/15: Wbc remains elevated, no events reported, hgb trending up 12/16: seen by bedside, awake, comfortable, no events 12/18: seen in the room, on vent and trach, no events Objective Last 24 Hour Vital Signs Date Time Temp Pulse Resp B/P (MAP) Pulse Ox O2 Delivery O2 Flow Rate FiO2 12/18/18 22:44 94 25 35 12/18/18 22:18 95 24 100 Mechanical Ventilator 35 12/18/18 22:06 101 30 99 Mechanical Ventilator 35 12/18/18 20:49 85 117/71 12/18/18 20:36 95 29 35 12/18/18 19:00 92 29 35 12/18/18 18:22 89 111/62 12/18/18 17:29 88 29 35 12/18/18 16:00 97.7 89 33 111/62 (78) 100 12/18/18 16:00 35 12/18/18 16:00 Mechanical Ventilator 12/18/18 15:29 81 30 35 12/18/18 15:20 91 12/18/18 13:14 99.7 12/18/18 12:55 106 29 35 12/18/18 12:00 35 12/18/18 12:00 Mechanical Ventilator 12/18/18 12:00 101.6 103 38 104/63 (77) 99 12/18/18 11:29 106 29 35 12/18/18 11:17 109 12/18/18 10:22 109 12/18/18 10:00 Mechanical Ventilator 35 12/18/18 10:00 Mechanical Ventilator 35 12/18/18 09:32 112 126/75 12/18/18 09:32 112 124/71 12/18/18 09:32 112 12/18/18 09:00 112 31 35 12/18/18 08:00 Mechanical Ventilator 12/18/18 08:00 35 12/18/18 08:00 99.3 112 35 126/75 (92) 99 12/18/18 06:54 107 33 35 12/18/18 05:29 95 28 35 12/18/18 04:00 98.6 93 38 124/71 (88) 99 12/18/18 04:00 90 12/18/18 04:00 Mechanical Ventilator 12/18/18 04:00 35 12/18/18 03:07 93 25 35 12/18/18 01:00 95 28 35 12/18/18 00:00 35 12/18/18 00:00 Mechanical Ventilator 12/18/18 00:00 99.0 94 26 115/68 (84) 99 12/18/18 00:00 98 12/17/18 23:15 93 29 35 Intake and Output 12/17/18 12/18/18 19:00 07:00 Intake Total 110 ml 860 ml Output Total 1390 ml 1275 ml Balance -1280 ml -415 ml Intake Free Water 90 ml IV Total 110 ml Tube Feeding 110 ml 660 ml Output Urine Total 950 ml 800 ml Stool Total 440 ml 475 ml Laboratory Tests 12/18/18 04:00: White Blood Count 11.2H, Red Blood Count 2.82L, Hemoglobin 8.4L, Hematocrit 27.2L, Mean Corpuscular Volume 96, Mean Corpuscular Hemoglobin 30.0, Mean Corpuscular Hemoglobin Concent 31.1L, Red Cell Distribution Width 17.0H, Platelet Count 188, Mean Platelet Volume 10.1, Neutrophils (%) (Auto) 83.8H, Lymphocytes (%) (Auto) 10.4L, Monocytes (%) (Auto) 3.5, Eosinophils (%) (Auto) 1.8, Basophils (%) (Auto) 0.5, Sodium Level 148H, Potassium Level 4.5, Chloride Level 117H, Carbon Dioxide Level 21, Anion Gap 10, Blood Urea Nitrogen 35H, Creatinine 0.8, Estimat Glomerular Filtration Rate , Glucose Level 306H, Uric Acid 4.3, Calcium Level 8.7, Phosphorus Level 3.1, Magnesium Level 1.5L, Total Bilirubin 0.1L, Aspartate Amino Transf (AST/SGOT) 17, Alanine Aminotransferase ( ALT/SGPT) 18, Alkaline Phosphatase 113, Pro-B-Type Natriuretic Peptide 826H, Total Protein 7.2, Albumin 1.3L, Globulin 5.9, Albumin/Globulin Ratio 0.2L, Amylase Level 138H, Lipase 796H Height (Feet): 5 Height (Inches): 8.00 Weight (Pounds): 140 Objective Physical Exam HEENT: Eyes were normal. ENT, mucous membranes were not dehydrated. NECK: Supple. There was no goiter. No mass. No lymphadenopathy. There was no JVD. No bruits. Carotid upstroke was 2+. LUNGS: Clear. Vent++ HEART: PMI was in the fifth left intercostal space in midclavicular line. There was normal S1 and normal S2. There was no murmur. No arrhythmia. No S3. No S4. No pericardial rub. ABDOMEN: Soft and nontender without organomegaly. There were no masses palpable. Normal bowel sounds without bruits. There was no guarding. No rebound tenderness. No ascites. No hernia. No CVA tenderness. Liver span was 8 cm, mostly nontender. EXTREMITIES: No cyanosis, no clubbing, and no edema. Extremities were warm. Adarsh Kim MD Dec 18, 2018 22:52
[2018-12-19] VITALS: BP 103/66
--- NOTE | 2018-12-19 | NUR ---
NURSE NOTES: Observed pt sleeping on the bed. Colostomy bag changed. Sacrum dressings changed. Oral care and reposition done. Will continue to monitor.
[2018-12-19] MEDS: NovoLOG Insulin Flexpen SUBQ SCH ×6 (00:54→21:38)
--- NOTE | 2018-12-19 03:30 | Progress Note ---
DATE: 12/18/2018 SUBJECTIVE: The patient is awake, alert, afebrile, a little bit more than yesterday. He is able to form sentences. PHYSICAL EXAMINATION: VITAL SIGNS: His blood pressure is 117/71, his pulse is 100, respirations 25, and temperature 97.7. HEENT: Eyes were normal. ENT, mucous membranes were moist and intact. NECK: Supple with no JVD without lymph nodes. Tracheostomy site is clean. LUNGS: Clear without rhonchi, rales, or wheezing. Secretions are small, thin, and barros. HEART: Normal sounds with regular beats. There is tachycardia at rest. ABDOMEN: Soft and nontender with normal bowel sounds. Gastrostomy site is clean. EXTREMITIES: Warm without cyanosis, clubbing, or edema. LABORATORY AND DIAGNOSTIC DATA: His hemoglobin is 8.4, hematocrit 27.2 with MCV of 96, WBC of 11.2, and platelets is 188. His WBC progressively declined from 16.2 on December 16 to 11.2 on December 18. His BUN and creatinine are 35 and 0.8 respectively. His sodium is 148, potassium 4.5, chloride 117, CO2 is 21. His calcium is 8.7. His SGOT, SGPT, and alkaline phosphatase are normal. His ProBNP is 826. Amylase and lipase are 136 and 7.95 respectively. IMPRESSION AND PLAN: 1. The patient has sepsis. Condition is markedly improved, it is not resolved as yet. 2. He is on aztreonam for Proteus mirabilis urinary tract infection and bacteremia and he is on tobramycin for MDR Pseudomonas in the sputum. The patient appeared to respond appropriately, however, his clinical improvement is slow. We will continue with the same intravenous antibiotics. 3. The patient is continued to be seen by farmer and grazier, equipment specialist, infectious disease specialist, facilities management executive. Neema Hutchins M.D. DR: ANDREA JOB#: [id number] CC:
[2018-12-19 04:00] VITALS: BP 103/68
[2018-12-19] MEDS: Aztreonam Inj 1 GM in D5W 55 ML IVPB SCH ×3 (05:29→21:39)
[2018-12-19 05:42] LABS: BASOPHILS % (AUTO) 0.7 % (0.0-2.0); EOSINOPHILS % (AUTO) 1.3 % (0.0-3.0); HEMATOCRIT 26.7 % (42.0-52.0); HEMOGLOBIN 8.4 G/DL (14.2-18.0); LYMPHOCYTES % (AUTO) 11.3 % (20.0-45.0); MEAN CORPUSCULAR VOLUME 96 FL (80-99); MONOCYTES % (AUTO) 4.4 % (1.0-10.0); NEUTROPHILS % (AUTO) 82.2 % (45.0-75.0); PLATELET COUNT 217 K/UL (150-450); RED BLOOD COUNT 2.79 M/UL (4.70-6.10); RED CELL DISTRIBUTION WIDTH 15.8 % (11.6-14.8); WHITE BLOOD COUNT 10.8 K/UL (4.8-10.8)
[2018-12-19 05:58] LABS: AMYLASE 135 U/L (25-115); ANION GAP 13 mmol/L (5-15); BLOOD UREA NITROGEN 36 mg/dL (7-18); CALCIUM 9.6 MG/DL (8.5-10.1); CARBON DIOXIDE 20 MMOL/L (21-32); CHLORIDE 116 MMOL/L (98-107); CREATININE 0.9 MG/DL (0.55-1.30); POTASSIUM 5.2 MMOL/L (3.5-5.1); SODIUM 149 MMOL/L (136-145)
--- NOTE | 2018-12-19 07:41 | NUR ---
HAND-OFF: Report given to SHAKIR Veronica. No acute distress noted at this time.
--- NOTE | 2018-12-19 07:41 | NUR ---
NURSE NOTES: Received patient from SHAKIR Heaton. Patient VS stable at this time with no sign of acute distress. Patient suctioned at this time and turned/pulled up in bed. Patient alert and oriented to name. Patient reported to be confused to place, time, and purpose. Patient appears nonverbal but is reported to speak occasionally. Patient showing low sinus tachycardia on the monitor at 100 beats per minute at this time. Patient on trach to ventilator with setting of AC 18, TV 500, FiO2 35%, and PEEP 5. Patient has a G tube that is patent and asymptomatic and running Glucerna 1.2 @ 55mL/hr. Patient has a colostomy on right lower quadrant that is patent and asymptomatic at this time. Patient has suprapubic catheter on the left lower quadrant at this time that is patent, asymptomatic, and covered. Patient has a sacral stage 3 wound that is covered at this time. Dressing changed during mine shifter. Patient has a right heel stage 1 that is covered. Patient has a left upper arm PICC that is patent and asymptomatic at this time. dressing last changed on 12/13. Patient bed in low position with bed alarm on and call light in reach at this time.
[2018-12-19 08:00] VITALS: BP 99/66
[2018-12-19] MEDS: Atenolol 25mg tab ORAL SCH ×2 (09:00→21:34)
[2018-12-19] MEDS ORDERED: Phospha 250 Neutral tab GT SCH (09:00)
--- NOTE | 2018-12-19 09:54 | Pulmonolgy Critical Care Note ---
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 Respiratory: monitor respiratory rate, adjust FIO2, CXR Cardiac: continue pressors, continue to monitor HR/BP Renal: F/U I&O, check electrolytes Infectious Disease: check cultures, continue antibiotics Gastrointestinal: hold feedings Endocrine: monitor blood sugar Hematologic: monitor H/H, transfuse if hgb<8.5 Neurologic: PRN Morphine, keep patient comfortable Time Spent (Minutes): 40 Notes Reviewed: features reporter, cardio Discussed with: nurses, consultants, assistant case managerairport operations manager - Objective Last 24 Hour Vital Signs Date Time Temp Pulse Resp B/P (MAP) Pulse Ox O2 Delivery O2 Flow Rate FiO2 12/19/18 06:50 90 26 35 12/19/18 05:00 88 24 35 12/19/18 04:00 99.1 92 25 103/68 (80) 100 12/19/18 04:00 35 12/19/18 04:00 Mechanical Ventilator 12/19/18 04:00 84 12/19/18 03:17 87 24 35 12/19/18 00:38 94 24 35 12/19/18 00:00 Mechanical Ventilator 12/19/18 00:00 94 12/19/18 00:00 99.1 94 27 103/66 (78) 99 12/19/18 00:00 35 12/18/18 22:44 94 25 35 12/18/18 22:18 95 24 100 Mechanical Ventilator 35 12/18/18 22:06 101 30 99 Mechanical Ventilator 35 12/18/18 20:49 85 117/71 12/18/18 20:36 95 29 35 12/18/18 20:00 92 12/18/18 20:00 97.7 85 28 117/71 (86) 99 12/18/18 20:00 Mechanical Ventilator 12/18/18 19:00 92 29 35 12/18/18 18:22 89 111/62 12/18/18 17:29 88 29 35 3/17/19 16:00 97.7 89 33 111/62 (78) 100 12/18/18 16:00 35 12/18/18 16:00 Mechanical Ventilator 12/18/18 15:29 81 30 35 12/18/18 15:20 91 12/18/18 13:14 99.7 12/18/18 12:55 106 29 35 12/18/18 12:00 35 12/18/18 12:00 Mechanical Ventilator 12/18/18 12:00 101.6 103 38 104/63 (77) 99 12/18/18 11:29 106 29 35 12/18/18 11:17 109 12/18/18 10:22 109 12/18/18 10:00 Mechanical Ventilator 35 12/18/18 10:00 Mechanical Ventilator 35 Status: awake Condition: critical HEENT: atraumatic Neck: full ROM Lungs: chest wall tender Heart: HR/BP unstable Abdomen: non-tender Extremities: edema Decubiti: location Accucheck: 270 Critical Care - Subjective ROS Limited/Unobtainable: No Condition: critical EKG Rhythm: Sinus Rhythm FI02: 35 Vent Support Breath Rate: 18 Vent Support Mode: AC Vent Tidal Volume: 500 Sputum Amount: Moderate PEEP: 5.0 PIP: 32 Tube Feeding Amount: 55 I&O: Intake and Output 12/18/18 12/19/18 19:00 07:00 Intake Total 1065 ml 800 ml Output Total 1200 ml 1000 ml Balance -135 ml -200 ml Intake Free Water 140 ml IV Total 255 ml 55 ml Tube Feeding 660 ml 605 ml Other 150 ml Output Urine Total 750 ml 400 ml Stool Total 450 ml 600 ml CXR: No change Labs: Laboratory Tests Test 12/19/18 04:00 White Blood Count 10.8 K/UL (4.8-10.8) Red Blood Count 2.79 M/UL (4.70-6.10) L Hemoglobin 8.4 G/DL (14.2-18.0) L Hematocrit 26.7 % (42.0-52.0) L Mean Corpuscular Volume 96 FL (80-99) Mean Corpuscular Hemoglobin 30.3 PG (27.0-31.0) Mean Corpuscular Hemoglobin Concent 31.7 G/DL (32.0-36.0) L Red Cell Distribution Width 15.8 % (11.6-14.8) H Platelet Count 217 K/UL (150-450) Mean Platelet Volume 8.8 FL (6.5-10.1) Neutrophils (%) (Auto) 82.2 % (45.0-75.0) H Lymphocytes (%) (Auto) 11.3 % (20.0-45.0) L Monocytes (%) (Auto) 4.4 % (1.0-10.0) Eosinophils (%) (Auto) 1.3 % (0.0-3.0) Basophils (%) (Auto) 0.7 % (0.0-2.0) Sodium Level 149 MMOL/L (136-145) H Potassium Level 5.2 MMOL/L (3.5-5.1) H Chloride Level 116 MMOL/L (98-107) H Carbon Dioxide Level 20 MMOL/L (21-32) L Anion Gap 13 mmol/L (5-15) Blood Urea Nitrogen 36 mg/dL (7-18) H Creatinine 0.9 MG/DL (0.55-1.30) Estimat Glomerular Filtration Rate mL/min (>60) Glucose Level 227 MG/DL (74-106) H Calcium Level 9.6 MG/DL (8.5-10.1) Amylase Level 135 U/L (25-115) H Lipase 672 U/L (73-393) H Abhishek Guerra MD Dec 19, 2018 09:54
[2018-12-19] MEDS: dilTIAZem HCl 30mg tab GT SCH ×2 (10:07→17:48)
[2018-12-19] MEDS: metFORMIN 500mg tab ORAL SCH ×2 (10:07→17:48)
[2018-12-19] MEDS: Heparin 5000 units/ml inj SUBQ SCH ×2 (10:11→21:39)
[2018-12-19] MEDS: Tobramycin for inhalation INH SCH ×2 (10:30→22:03)
--- NOTE | 2018-12-19 11:15 | GI Progress Note ---
Assessment/Plan Problems: (1) Colostomy care ICD Codes: Z43.3 - Encounter for attention to colostomy SNOMED: 129859458 (2) Anemia ICD Codes: D64.9 - Anemia, unspecified SNOMED: 153996924 (3) Feeding by G-tube ICD Codes: Z93.1 - Gastrostomy status SNOMED: 872136079, 864538395 (4) Abdominal wall cellulitis ICD Codes: L03.311 - Cellulitis of abdominal wall SNOMED: 43357469 (5) Acute pancreatitis ICD Codes: K85.90 - Acute pancreatitis without necrosis or infection, unspecified SNOMED: 824196735 (6) Pancreatitis ICD Codes: K85.90 - Acute pancreatitis without necrosis or infection, unspecified SNOMED: 02111031 Status: progressing Status Narrative Discussed with Dr. Jackson Assessment/Plan Occult blood stool positive Pancreatitis fu H&H ppi daily lopid GTFs per RD replace mag tumor markers fu stool ob Trend lipase, downtrending The patient was seen and examined at bedside and all new and available data was reviewed in the patients chart. I agree with the above findings, impression and plan. (Patient seen earlier today. Signature stamp does not reflect patient encounter time.). - Benjamin Jackson MD Subjective Subjective Limited Objective Last 24 Hour Vital Signs Date Time Temp Pulse Resp B/P (MAP) Pulse Ox O2 Delivery O2 Flow Rate FiO2 12/19/18 10:07 102 99/66 12/19/18 10:05 102 12/19/18 09:00 100 99/66 12/19/18 06:50 90 26 35 12/19/18 05:00 88 24 35 12/19/18 04:00 99.1 92 25 103/68 (80) 100 12/19/18 04:00 35 12/19/18 04:00 Mechanical Ventilator 12/19/18 04:00 84 12/19/18 03:17 87 24 35 12/19/18 00:38 94 24 35 12/19/18 00:00 Mechanical Ventilator 12/19/18 00:00 94 12/19/18 00:00 99.1 94 27 103/66 (78) 99 12/19/18 00:00 35 12/18/18 22:44 94 25 35 12/18/18 22:18 95 24 100 Mechanical Ventilator 35 12/18/18 22:06 101 30 99 Mechanical Ventilator 35 12/18/18 20:49 85 117/71 12/18/18 20:36 95 29 35 12/18/18 20:00 92 12/18/18 20:00 97.7 85 28 117/71 (86) 99 12/18/18 20:00 Mechanical Ventilator 12/18/18 19:00 92 29 35 12/18/18 18:22 89 111/62 12/18/18 17:29 88 29 35 12/18/18 16:00 97.7 89 33 111/62 (78) 100 12/18/18 16:00 35 12/18/18 16:00 Mechanical Ventilator 12/18/18 15:29 81 30 35 12/18/18 15:20 91 12/18/18 13:14 99.7 12/18/18 12:55 106 29 35 12/18/18 12:00 35 12/18/18 12:00 Mechanical Ventilator 12/18/18 12:00 101.6 103 38 104/63 (77) 99 12/18/18 11:29 106 29 35 12/18/18 11:17 109 Intake and Output 12/18/18 12/19/18 19:00 07:00 Intake Total 1065 ml 800 ml Output Total 1200 ml 1000 ml Balance -135 ml -200 ml Intake Free Water 140 ml IV Total 255 ml 55 ml Tube Feeding 660 ml 605 ml Other 150 ml Output Urine Total 750 ml 400 ml Stool Total 450 ml 600 ml Laboratory Tests Test 12/19/18 04:00 White Blood Count 10.8 K/UL (4.8-10.8) Red Blood Count 2.79 M/UL (4.70-6.10) L Hemoglobin 8.4 G/DL (14.2-18.0) L Hematocrit 26.7 % (42.0-52.0) L Mean Corpuscular Volume 96 FL (80-99) Mean Corpuscular Hemoglobin 30.3 PG (27.0-31.0) Mean Corpuscular Hemoglobin Concent 31.7 G/DL (32.0-36.0) L Red Cell Distribution Width 15.8 % (11.6-14.8) H Platelet Count 217 K/UL (150-450) Mean Platelet Volume 8.8 FL (6.5-10.1) Neutrophils (%) (Auto) 82.2 % (45.0-75.0) H Lymphocytes (%) (Auto) 11.3 % (20.0-45.0) L Monocytes (%) (Auto) 4.4 % (1.0-10.0) Eosinophils (%) (Auto) 1.3 % (0.0-3.0) Basophils (%) (Auto) 0.7 % (0.0-2.0) Sodium Level 149 MMOL/L (136-145) H Potassium Level 5.2 MMOL/L (3.5-5.1) H Chloride Level 116 MMOL/L (98-107) H Carbon Dioxide Level 20 MMOL/L (21-32) L Anion Gap 13 mmol/L (5-15) Blood Urea Nitrogen 36 mg/dL (7-18) H Creatinine 0.9 MG/DL (0.55-1.30) Estimat Glomerular Filtration Rate mL/min (>60) Glucose Level 227 MG/DL (74-106) H Calcium Level 9.6 MG/DL (8.5-10.1) Amylase Level 135 U/L (25-115) H Lipase 672 U/L (73-393) H Height (Feet): 5 Height (Inches): 8.00 Weight (Pounds): 140 General Appearance: no apparent distress, thin Cardiovascular: normal rate Respiratory/Chest: normal breath sounds, no respiratory distress, other - Mechanical ventilator Abdominal Exam: normal bowel sounds, non tender, soft, GT site - Clean dry and intact Extremities: non-tender Cirilo Germain FINANCIAL REP Dec 19, 2018 11:15
--- NOTE | 2018-12-19 11:50 | NUR ---
RD ASSESSMENT & RECOMMENDATIONS SEE CARE ACTIVITY FOR COMPLETE ASSESSMENT DAILY ESTIMATED NEEDS: Needs based on critical care, wound/ 63kg 22-30 kcals/kg 4465-7864 total kcals 1.5-2 g protein/kg 94-126 g total protein 25-30 mL/kg 2250-8540 total fluid mLs NUTRITION DIAGNOSIS: 1) Increased kcal and protein needs r/t wound healing as evidenced by pt w/ multiple advanced wounds, including Unstageable wound at L earlobe. 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 3) Altered nutrition related lab values r/t clinical status as evidenced by hyperglycemia (BG 227-306), elev K (5.2), elev Na (149). ENTERAL NUTRITION RECOMMENDATIONS: Glucerna 1.2 @ 55ml/hr x 24 hrs + Prosource 1pkt BID to provide 1320ml, 1584kcal, 79+ 22g prot, 930ml free water - Rec Glucerna 1.2 @ goal rate of 55ml/hr x 24 hrs - Add Prosource 1pkt BID for protein needs - Flush per MD/ keep HOB >30degrees ADDITIONAL RECOMMENDATIONS: * REcalibrate bed scale wt for accurate CBW * Rec long acting insulin for improved BG control- POC glu 200's-300's * Wound care: add MITCHELL BID + Vit C 250mg BID * Check lytes daily, replete as needed * Monitor K labs, need for NEPRO vs Glucerna
[2018-12-19 12:00] VITALS: BP 108/67
--- NOTE | 2018-12-19 13:46 | Infectious Diseases Prog Note ---
Assessment/Plan Assessment/Plan Assessment: Severe Sepsis 2ry to GNR -12/17 CXR: No significant interval change in the diffuse patchy bilateral reticular interstitial and airspace opacities. -CXR: Probable small left pleural effusion, also evident on prior study 2017. Bilateral interstitial disease, unchanged, suspect chronic. Correlate with clinical findings -sp CX MDR PsA (S Gentamicin, AMikacin, Cefepime, Aztreonam, Tobramycin) GNR bacteremia, likely from UTI -CT abd/p: Findings consistent with uncomplicated nonnecrotizing acute pancreatitis. No evidence of associated peripancreatic abscess Surgical changes as described, including right lower quadrant ileostomy, subtotal colectomy with Haroldo procedure. Wall thickening of the Haroldo pouch. This could indicate inflammation. However, this is also present on both of the prior 2 exams and may be baseline for this patien. Evidence of mild anasarca, with edema of the subcutaneous fat. This is a new finding. Chronic appearing decubitus changes of the bilateral ischia. Correlate with clinical findings. Complete left lower lobe consolidation. This is similar to both of the prior CTs, andis likely a chronic finding. There is progressive chronic interstitial fibrotic change involving the right middle lobe. There is also right lower lobe granulomatous calcification, Extensive pulmonary parenchymal opacities bilaterally may reflect acute inflammation/infection, edema, progressive chronic scarring, orcombination of the above. These are considerably more extensive than on the prior study -u/a 10-15, nit neg, luek +3; ucx 50-60k Enterococcus (Vanco resist; S AMp), 40-50 K Proteus -12/07 Bcx 3/ Proteus; 12/08 Bcx 1/4 Proteus (S Aztreonam; R Cipro, levo; I Imipenem); 12/12 BCx p Acute pancreatitis -lipase ~1k Fever - recurrent- in the setting of bacteremia and pancreaitis; improving Leukocytosis , resolved-in the setting of bacteremia, UTI and acute pancreatitis CONS bacteremia- likely contaminant -12/12 Bcx 1/4 CONS; 12/14 Bcx NTD Hyponatremia, improving MAULIK, improving dysphagia s/p peg COPD GBS quadriplegia chronic resp failure s/p trach HTN CVA, nonverbal anemia SNF resident Plan: -Continue Aztreonam #08/17 for Proteus UTi and bacteremia -Add INH tobramycin #5/7 for MDR PsA in sputum -12/16 SP IV Daptomycin #7 -f/u Bcx x2 -Monitor CBC/CMP, temperatures -PEG/Trach care -Aspiration precautions -management of acute pancreatitis per primary team. Will continue to follow along with you. Subjective Allergies: Coded Allergies: PENICILLINS (Unverified Allergy, Unknown, 02/26/16) POLYMYXIN B (Unverified Allergy, Unknown, 02/26/16) VANCOMYCIN (Unverified Allergy, Unknown, 02/26/16) Subjective Tm 101.6; afebrile >24hrs leukocytosis resolved repeat Bcx NTD Objective Vital Signs Last 24 Hour Vital Signs Date Time Temp Pulse Resp B/P (MAP) Pulse Ox O2 Delivery O2 Flow Rate FiO2 12/19/18 10:30 86 23 35 12/19/18 10:30 Mechanical Ventilator 12/19/18 10:30 Mechanical Ventilator 12/19/18 10:07 102 99/66 12/19/18 10:05 102 12/19/18 09:00 100 99/66 12/19/18 08:40 89 25 35 12/19/18 08:00 98.2 100 28 99/66 (77) 99 12/19/18 08:00 101 12/19/18 08:00 35 12/19/18 08:00 Mechanical Ventilator 12/19/18 06:50 90 26 35 12/19/18 05:00 88 24 35 12/19/18 04:00 99.1 92 25 103/68 (80) 100 12/19/18 04:00 35 12/19/18 04:00 Mechanical Ventilator 12/19/18 04:00 84 12/19/18 03:17 87 24 35 12/19/18 00:38 94 24 35 12/19/18 00:00 Mechanical Ventilator 12/19/18 00:00 94 12/19/18 00:00 99.1 94 27 103/66 (78) 99 12/19/18 00:00 35 12/18/18 22:44 94 25 35 12/18/18 22:18 95 24 100 Mechanical Ventilator 35 12/18/18 22:06 101 30 99 Mechanical Ventilator 35 12/18/18 20:49 85 117/71 12/18/18 20:36 95 29 35 12/18/18 20:00 92 12/18/18 20:00 97.7 85 28 117/71 (86) 99 12/18/18 20:00 Mechanical Ventilator 12/18/18 19:00 92 29 35 12/18/18 18:22 89 111/62 12/18/18 17:29 88 29 35 12/18/18 16:00 97.7 89 33 111/62 (78) 100 12/18/18 16:00 35 12/18/18 16:00 Mechanical Ventilator 12/18/18 15:29 81 30 35 12/18/18 15:20 91 Height (Feet): 5 Height (Inches): 8.00 Weight (Pounds): 140 Objective HEENT: Eyes were normal. ENT, mucous membranes were not dehydrated. NECK: Supple. There was no goiter. No mass. No lymphadenopathy. There was no JVD. No bruits. Carotid upstroke was 2+. LUNGS: Clear. HEART: PMI was in the fifth left intercostal space in midclavicular line. There was normal S1 and normal S2. There was no murmur. No arrhythmia. No S3. No S4. No pericardial rub. ABDOMEN: Soft and nontender without organomegaly. There were no masses palpable. Normal bowel sounds without bruits. There was no guarding. No rebound tenderness. No ascites. No hernia. No CVA tenderness. EXTREMITIES: No cyanosis, no clubbing, and no edema. Extremities were warm. Laboratory Tests Test 12/19/18 04:00 White Blood Count 10.8 K/UL (4.8-10.8) Red Blood Count 2.79 M/UL (4.70-6.10) L Hemoglobin 8.4 G/DL (14.2-18.0) L Hematocrit 26.7 % (42.0-52.0) L Mean Corpuscular Volume 96 FL (80-99) Mean Corpuscular Hemoglobin 30.3 PG (27.0-31.0) Mean Corpuscular Hemoglobin Concent 31.7 G/DL (32.0-36.0) L Red Cell Distribution Width 15.8 % (11.6-14.8) H Platelet Count 217 K/UL (150-450) Mean Platelet Volume 8.8 FL (6.5-10.1) Neutrophils (%) (Auto) 82.2 % (45.0-75.0) H Lymphocytes (%) (Auto) 11.3 % (20.0-45.0) L Monocytes (%) (Auto) 4.4 % (1.0-10.0) Eosinophils (%) (Auto) 1.3 % (0.0-3.0) Basophils (%) (Auto) 0.7 % (0.0-2.0) Sodium Level 149 MMOL/L (136-145) H Potassium Level 5.2 MMOL/L (3.5-5.1) H Chloride Level 116 MMOL/L (98-107) H Carbon Dioxide Level 20 MMOL/L (21-32) L Anion Gap 13 mmol/L (5-15) Blood Urea Nitrogen 36 mg/dL (7-18) H Creatinine 0.9 MG/DL (0.55-1.30) Estimat Glomerular Filtration Rate mL/min (>60) Glucose Level 227 MG/DL (74-106) H Calcium Level 9.6 MG/DL (8.5-10.1) Amylase Level 135 U/L (25-115) H Lipase 672 U/L (73-393) H Current Medications Medications (Trade) Dose Ordered Sig/Frans[place] Route PRN Reason Start Time Stop Time Status Last Admin Dose Admin Acetaminophen (Tylenol) 650 mg Q4H PRN GT For Pain 12/07/18 17:00 01/06/19 16:59 12/17/18 23:15 Acetaminophen (Tylenol) 650 mg Q4H PRN GT fever 12/10/18 09:45 01/06/19 16:59 12/18/18 12:44 Atenolol (Tenormin) 25 mg Q12HR ORAL 12/12/18 21:00 01/11/19 20:59 12/18/18 20:49 Aztreonam 1 gm/ Dextrose 55 ml @ 110 mls/hr Q8HR IVPB 12/09/18 15:00 12/22/18 23:59 12/19/18 05:29 Chlorhexidine Gluconate (Sandra-Hex 2%) 1 applic DAILY@2000 TOPIC 12/10/18 20:00 01/09/19 19:59 12/18/18 20:49 Dextrose (Dextrose 50%) 25 ml Q30M PRN IV Hypoglycemia 12/10/18 14:00 01/09/19 13:59 Dextrose (Dextrose 50%) 50 ml Q30M PRN IV Hypoglycemia 12/10/18 14:00 01/09/19 13:59 Digoxin (Lanoxin) 0.25 mg DAILY GT 12/12/18 09:00 01/10/19 08:59 12/19/18 10:05 Diltiazem HCl (Cardizem) 10 mg BIDPRN PRN IVP FOR HR >140 12/12/18 08:45 01/11/19 08:44 Diltiazem HCl (Cardizem) 30 mg BID GT 12/11/18 18:00 01/10/19 17:59 12/19/18 10:07 Gemfibrozil (Lopid) 600 mg TWICE A DAY GT 12/15/18 10:15 01/14/19 10:14 12/19/18 10:04 Heparin Sodium (Porcine) (Heparin 5000 units/ml) 5,000 units EVERY 12 HOURS SUBQ 12/07/18 21:00 01/06/19 20:59 12/19/18 10:11 Insulin Aspart (NovoLOG) EVERY 4 HOURS SUBQ 12/12/18 05:00 01/09/19 04:59 12/19/18 12:45 Lansoprazole (Prevacid) 30 mg DAILY GT 12/17/18 09:00 01/16/19 08:59 12/19/18 10:04 Metformin HCl (Glucophage) 500 mg BID ORAL 12/18/18 09:00 01/17/19 08:59 12/19/18 10:07 Nateglinide (Starlix) 120 mg Q8HR ORAL 12/18/18 22:00 01/17/19 21:59 12/19/18 05:29 Nitroglycerin (Ntg) 0.4 mg Q5M PRN SL Prn Chest Pain 12/07/18 17:00 01/06/19 16:59 Ondansetron HCl (Zofran) 4 mg Q6H PRN IVP Nausea & Vomiting 12/07/18 17:00 01/06/19 16:59 Phosphorus (Phospha 250 Neutral) 250 mg BID GT 12/19/18 09:00 01/09/19 08:59 12/19/18 10:07 Polyethylene Glycol (Miralax) 17 gm DAILYPRN PRN GT Constipation 12/10/18 09:45 01/06/19 16:59 Tobramycin Sulfate (Nebcin) 300 mg Q12HR@10,22 INH 12/15/18 10:30 12/22/18 10:29 12/18/18 22:06 Aminah Champagne M.D. Dec 19, 2018 13:46
--- NOTE | 2018-12-19 13:50 | Nephrology Progress Note ---
Assessment/Plan Problem List: (1) ATN (acute tubular necrosis) (2) Anemia (3) Feeding by G-tube (4) Acute and chronic respiratory failure (5) UTI (urinary tract infection) (6) Hyponatremia Assessment Patient have mainly Pre Renal Azotemia with possible underlying CKD- Low Na partly depletional, partly due to Hyperglycemia RESOLVED Other conditions as outlined: (1) Acute and chronic respiratory failure (gshar-do-tegfnnz) (2) Sepsis (3) Malnutrition and HypoAlbuminemia (4) UTI (urinary tract infection) (5) Anemia (6) Diabetes mellitus, type II (7) Colostomy care (8) Cerebral vascular disease (9) Decubitus ulcer of sacral region, stage 2 (10) Feeding by G-tube (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 Plan transfused total 2 units Kayexelate for high K given 12/17 repeat today On Starlix up dose digoxin and tenormin K and Phos supplement as needed Keep electrolytes in check Keep BS and BP in check Subjective ROS Limited/Unobtainable: Yes Objective Objective Last 24 Hour Vital Signs Date Time Temp Pulse Resp B/P (MAP) Pulse Ox O2 Delivery O2 Flow Rate FiO2 12/19/18 10:30 86 23 35 12/19/18 10:30 Mechanical Ventilator 12/19/18 10:30 Mechanical Ventilator 12/19/18 10:07 102 99/66 12/19/18 10:05 102 12/19/18 09:00 100 99/66 12/19/18 08:40 89 25 35 12/19/18 08:00 98.2 100 28 99/66 (77) 99 12/19/18 08:00 101 12/19/18 08:00 35 12/19/18 08:00 Mechanical Ventilator 12/19/18 06:50 90 26 35 12/19/18 05:00 88 24 35 12/19/18 04:00 99.1 92 25 103/68 (80) 100 12/19/18 04:00 35 12/19/18 04:00 Mechanical Ventilator 12/19/18 04:00 84 12/19/18 03:17 87 24 35 12/19/18 00:38 94 24 35 12/19/18 00:00 Mechanical Ventilator 12/19/18 00:00 94 12/19/18 00:00 99.1 94 27 103/66 (78) 99 12/19/18 00:00 35 12/18/18 22:44 94 25 35 12/18/18 22:18 95 24 100 Mechanical Ventilator 35 12/18/18 22:06 101 30 99 Mechanical Ventilator 35 12/18/18 20:49 85 117/71 12/18/18 20:36 95 29 35 12/18/18 20:00 92 12/18/18 20:00 97.7 85 28 117/71 (86) 99 12/18/18 20:00 Mechanical Ventilator 12/18/18 19:00 92 29 35 12/18/18 18:22 89 111/62 12/18/18 17:29 88 29 35 12/18/18 16:00 97.7 89 33 111/62 (78) 100 12/18/18 16:00 35 12/18/18 16:00 Mechanical Ventilator 12/18/18 15:29 81 30 35 12/18/18 15:20 91 Intake and Output 12/18/18 12/19/18 19:00 07:00 Intake Total 1065 ml 800 ml Output Total 1200 ml 1000 ml Balance -135 ml -200 ml Intake Free Water 140 ml IV Total 255 ml 55 ml Tube Feeding 660 ml 605 ml Other 150 ml Output Urine Total 750 ml 400 ml Stool Total 450 ml 600 ml Laboratory Tests 12/19/18 04:00: White Blood Count 10.8, Red Blood Count 2.79L, Hemoglobin 8.4L, Hematocrit 26.7L , Mean Corpuscular Volume 96, Mean Corpuscular Hemoglobin 30.3, Mean Corpuscular Hemoglobin Concent 31.7L, Red Cell Distribution Width 15.8H, Platelet Count 217, Mean Platelet Volume 8.8, Neutrophils (%) (Auto) 82.2H, Lymphocytes (%) (Auto) 11.3L, Monocytes (%) (Auto) 4.4, Eosinophils (%) (Auto) 1.3, Basophils (%) (Auto) 0.7, Sodium Level 149H, Potassium Level 5.2H, Chloride Level 116H, Carbon Dioxide Level 20L, Anion Gap 13, Blood Urea Nitrogen 36H, Creatinine 0.9, Estimat Glomerular Filtration Rate , Glucose Level 227H, Calcium Level 9.6, Amylase Level 135H, Lipase 672H Height (Feet): 5 Height (Inches): 8.00 Weight (Pounds): 140 General Appearance: no apparent distress Cardiovascular: tachycardia Respiratory/Chest: decreased breath sounds Abdomen: soft Objective no change Migue Moreland MD Dec 19, 2018 13:50
[2018-12-19] MEDS ORDERED: Sodium Polystyrene Sulfonate 15gm Powder GT ONE (14:00)
--- NOTE | 2018-12-19 14:08 | NUR ---
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 HYPERNATREMIA VS: BP 99/66, P 102, T 99.1, RR 25, SpO2 99 on VENT FiO2 35 WBC 11.2, RBC 2.82, Na 149, K 5.2, BUN 36 IS:AZTREONAM 1 gm 55ML IVPB DILTIAZEM HCI 30mg GT NOVOLOG SUBQ DIGOXIN 0.25 GT LOPID 600mg LANSOPRAZOLE 30mg METFORMIN 500mg STARLIX 120mg SDU STATUS
[2018-12-19 16:00] VITALS: BP 100/63
[2018-12-19] MEDS: Acetaminophen 650mg/20.3ml GT PRN ×2 (16:03→23:51)
--- NOTE | 2018-12-19 16:45 | General Progress Note ---
Assessment/Plan Assessment/Plan Assessment/Recs: # Leukocytosis/Elevated white blood cell count, unspecified likely related to underlying stress reaction, smoking, or underlying infection (especially if bandemia is noted) --> have reviewed peripheral smear and bandemia/neutrophilia noted --> continue antibiotics if they have been started by ID team --> monitor for resolution ---> WBC trend: 11-->16-->15-->14-->11 # Anemia of chronic disease due to underlying chronic medical issues, multifactorial --> Anemia workup has been reviewed, Ferritin 1573 --> No evidence of hemolysis is noted, peripheral smear has been reviewed. --> Hgb goal >7. Transfuse prn. --> Epogen or iron at this time is not particularly indicated --> Medications have been reviewed --> HGB trend: 7.8-->7.6-->6.2-->6.4->7.1-->8.7-->9.1-->8.4 # Thrombocytopenia - potential causes multifactorial, evaluate liver and viral etiologies to begin, also could be related to underlying medications patient has received. --> Hep panel and HIV negative --> US abd to evaluate for cirrhosis and hsm reviewed --> Peripheral smear ordered to evaluate for blasts /schistocytes --> abx and other meds have been reviewed --> ok for ppx if plt >50k w/ either heparin or lovenox --> Transfuse if Plt < 20k and fever, or if Plt < 10k without fever # Severe prerenal azotemia, on ivf --> improve po oral intake and consider appetite stimulant # Hypouricemia, appreciate Pulmonary validation consultant # Severe Sepsis, CXR: Probable small left pleural effusion, also evident on prior study 11/22/2017. -->appreciate ID recs # [email or web address], likely from UTI The timing of this note does not necessarily reflect the time of the patient was seen. Greatly appreciate consultation! Subjective Constitutional: Denies: no symptoms, chills, diaphoresis, fever, malaise, weakness, other HEENT: Denies: no symptoms, eye pain, blurred vision, tearing, double vision, ear pain, ear discharge, nose pain, nose congestion, throat pain, throat swelling, mouth pain, mouth swelling, other Cardiovascular: Denies: no symptoms, chest pain, edema, irregular heart rate, lightheadedness, palpitations, syncope, other Respiratory: Denies: no symptoms, cough, orthopnea, shortness of breath, SOB with excertion, SOB at rest, sputum, stridor, wheezing, other Gastrointestinal/Abdominal: Denies: no symptoms, abdomen distended, abdominal pain, black stools, tarry stools, blood in stool, constipated, diarrhea, difficulty swallowing, nausea, poor appetite, poor fluid intake, rectal bleeding , vomiting, other Genitourinary: Denies: no symptoms, burning, discharge, frequency, flank pain, hematuria, incontinence, pain, urgency, other Neurologic/Psychiatric: Denies: no symptoms, anxiety, depressed, emotional problems, headache, numbness, paresthesia, pre-existing deficit, seizure, tingling, tremors, weakness, other Hematologic/Lymphatic: Denies: no symptoms, anemia, easy bleeding, easy bruising, other Allergies: Coded Allergies: PENICILLINS (Unverified Allergy, Unknown, 02/26/16) POLYMYXIN B (Unverified Allergy, Unknown, 02/26/16) VANCOMYCIN (Unverified Allergy, Unknown, 02/26/16) Subjective 12/11: seen by bedside, vent dependent, leukocytosis, 11, hgb 7, will transfuse, no events 12/12: awake, comfortable wbc trending up at 16, no events 12/13: hgb 6.4, receiving transfusion, , wbc remains elevated. no acute events 12/14: seen by bedside, awake, comfortable low grade fever, wbc remains elevated at 15, bacteremia on IV Abx, hgb 7.1, will transfuse as needed 12/15: Wbc remains elevated, no events reported, hgb trending up 12/16: seen by bedside, awake, comfortable, no events 12/18: seen in the room, on vent and trach, no events 12/19: reviewed cbc and appears relatively stable, on starlix, remains in sdu Objective Last 24 Hour Vital Signs Date Time Temp Pulse Resp B/P (MAP) Pulse Ox O2 Delivery O2 Flow Rate FiO2 12/19/18 16:00 Mechanical Ventilator 12/19/18 16:00 35 12/19/18 14:55 89 24 35 12/19/18 12:51 87 24 35 12/19/18 12:00 98.1 105 30 108/67 (81) 100 12/19/18 12:00 Mechanical Ventilator 12/19/18 12:00 108 12/19/18 12:00 35 12/19/18 10:30 86 23 35 12/19/18 10:30 Mechanical Ventilator 12/19/18 10:30 Mechanical Ventilator 12/19/18 10:07 102 99/66 12/19/18 10:05 102 12/19/18 09:00 100 99/66 12/19/18 08:40 89 25 35 12/19/18 08:00 98.2 100 28 99/66 (77) 99 12/19/18 08:00 101 12/19/18 08:00 35 12/19/18 08:00 Mechanical Ventilator 12/19/18 06:50 90 26 35 12/19/18 05:00 88 24 35 12/19/18 04:00 99.1 92 25 103/68 (80) 100 12/19/18 04:00 35 12/19/18 04:00 Mechanical Ventilator 12/19/18 04:00 84 12/19/18 03:17 87 24 35 12/19/18 00:38 94 24 35 12/19/18 00:00 Mechanical Ventilator 12/19/18 00:00 94 12/19/18 00:00 99.1 94 27 103/66 (78) 99 12/19/18 00:00 35 12/18/18 22:44 94 25 35 12/18/18 22:18 95 24 100 Mechanical Ventilator 35 12/18/18 22:06 101 30 99 Mechanical Ventilator 35 12/18/18 20:49 85 117/71 12/18/18 20:36 95 29 35 12/18/18 20:00 92 12/18/18 20:00 97.7 85 28 117/71 (86) 99 12/18/18 20:00 Mechanical Ventilator 12/18/18 19:00 92 29 35 12/18/18 18:22 89 111/62 12/18/18 17:29 88 29 35 Intake and Output 12/18/18 12/19/18 19:00 07:00 Intake Total 1065 ml 800 ml Output Total 1200 ml 1000 ml Balance -135 ml -200 ml Intake Free Water 140 ml IV Total 255 ml 55 ml Tube Feeding 660 ml 605 ml Other 150 ml Output Urine Total 750 ml 400 ml Stool Total 450 ml 600 ml Laboratory Tests 12/19/18 04:00: White Blood Count 10.8, Red Blood Count 2.79L, Hemoglobin 8.4L, Hematocrit 26.7L , Mean Corpuscular Volume 96, Mean Corpuscular Hemoglobin 30.3, Mean Corpuscular Hemoglobin Concent 31.7L, Red Cell Distribution Width 15.8H, Platelet Count 217, Mean Platelet Volume 8.8, Neutrophils (%) (Auto) 82.2H, Lymphocytes (%) (Auto) 11.3L, Monocytes (%) (Auto) 4.4, Eosinophils (%) (Auto) 1.3, Basophils (%) (Auto) 0.7, Sodium Level 149H, Potassium Level 5.2H, Chloride Level 116H, Carbon Dioxide Level 20L, Anion Gap 13, Blood Urea Nitrogen 36H, Creatinine 0.9, Estimat Glomerular Filtration Rate , Glucose Level 227H, Calcium Level 9.6, Amylase Level 135H, Lipase 672H Height (Feet): 5 Height (Inches): 8.00 Weight (Pounds): 140 Objective Physical Exam HEENT: Eyes were normal. ENT, mucous membranes were not dehydrated. NECK: Supple. There was no goiter. No mass. No lymphadenopathy. There was no JVD. No bruits. Carotid upstroke was 2+. LUNGS: Clear. Vent++ HEART: PMI was in the fifth left intercostal space in midclavicular line. There was normal S1 and normal S2. There was no murmur. No arrhythmia. No S3. No S4. No pericardial rub. ABDOMEN: Soft and nontender without organomegaly. There were no masses palpable. Normal bowel sounds without bruits. There was no guarding. No rebound tenderness. No ascites. No hernia. No CVA tenderness. Liver span was 8 cm, mostly nontender. EXTREMITIES: No cyanosis, no clubbing, and no edema. Extremities were warm. Adarsh Kim MD Dec 19, 2018 16:45
--- NOTE | 2018-12-19 19:07 | NUR ---
HAND-OFF: Report given to SHAKIR Heaton. Patient VS stable at this time with no sign of acute distress. Patient had a temperature of 101.2 at 1600. Temp is now 97.9.
--- NOTE | 2018-12-19 19:10 | Cardiology Progress Note ---
Assessment/Plan Assessment/Plan 1. Supraventricular tachycardia. recurrent 12/09 and 12/10 2. Renal insufficiency. 3. Hyponatremia. 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 6. History of bowel resection. 7. History of CVA. 8. Chronic tracheostomy. 9. Diabetes mellitus. 10 pancreatitis 11. anemai bp borderline cortisol was normal on low dose Cardizem via gtube and dig dig level 0.9 on 12/16 no further svt on the present regimen heart rate much imporved so far Subjective ROS Limited/Unobtainable: Yes Subjective on the vent Objective Last 24 Hour Vital Signs Date Time Temp Pulse Resp B/P (MAP) Pulse Ox O2 Delivery O2 Flow Rate FiO2 12/19/18 17:48 85 100/63 12/19/18 17:34 85 23 35 12/19/18 16:33 97.9 12/19/18 16:00 Mechanical Ventilator 12/19/18 16:00 112 12/19/18 16:00 101.2 111 30 100/63 (75) 95 12/19/18 16:00 35 12/19/18 14:55 89 24 35 12/19/18 12:51 87 24 35 12/19/18 12:00 98.1 105 30 108/67 (81) 100 12/19/18 12:00 Mechanical Ventilator 12/19/18 12:00 108 12/19/18 12:00 35 12/19/18 10:30 86 23 35 12/19/18 10:30 Mechanical Ventilator 12/19/18 10:30 Mechanical Ventilator 12/19/18 10:07 102 99/66 12/19/18 10:05 102 12/19/18 09:00 100 99/66 12/19/18 08:40 89 25 35 12/19/18 08:00 98.2 100 28 99/66 (77) 99 12/19/18 08:00 101 12/19/18 08:00 35 12/19/18 08:00 Mechanical Ventilator 12/19/18 06:50 90 26 35 12/19/18 05:00 88 24 35 12/19/18 04:00 99.1 92 25 103/68 (80) 100 12/19/18 04:00 35 12/19/18 04:00 Mechanical Ventilator 12/19/18 04:00 84 12/19/18 03:17 87 24 35 12/19/18 00:38 94 24 35 12/19/18 00:00 Mechanical Ventilator 12/19/18 00:00 94 12/19/18 00:00 99.1 94 27 103/66 (78) 99 12/19/18 00:00 35 12/18/18 22:44 94 25 35 12/18/18 22:18 95 24 100 Mechanical Ventilator 35 12/18/18 22:06 101 30 99 Mechanical Ventilator 35 12/18/18 20:49 85 117/71 12/18/18 20:36 95 29 35 12/18/18 20:00 92 12/18/18 20:00 97.7 85 28 117/71 (86) 99 12/18/18 20:00 Mechanical Ventilator General Appearance: no apparent distress, on vent, isolation precautions Intake and Output 12/18/18 12/19/18 19:00 07:00 Intake Total 1065 ml 800 ml Output Total 1200 ml 1000 ml Balance -135 ml -200 ml Intake Free Water 140 ml IV Total 255 ml 55 ml Tube Feeding 660 ml 605 ml Other 150 ml Output Urine Total 750 ml 400 ml Stool Total 450 ml 600 ml Laboratory Tests Test 12/19/18 04:00 White Blood Count 10.8 K/UL (4.8-10.8) Red Blood Count 2.79 M/UL (4.70-6.10) L Hemoglobin 8.4 G/DL (14.2-18.0) L Hematocrit 26.7 % (42.0-52.0) L Mean Corpuscular Volume 96 FL (80-99) Mean Corpuscular Hemoglobin 30.3 PG (27.0-31.0) Mean Corpuscular Hemoglobin Concent 31.7 G/DL (32.0-36.0) L Red Cell Distribution Width 15.8 % (11.6-14.8) H Platelet Count 217 K/UL (150-450) Mean Platelet Volume 8.8 FL (6.5-10.1) Neutrophils (%) (Auto) 82.2 % (45.0-75.0) H Lymphocytes (%) (Auto) 11.3 % (20.0-45.0) L Monocytes (%) (Auto) 4.4 % (1.0-10.0) Eosinophils (%) (Auto) 1.3 % (0.0-3.0) Basophils (%) (Auto) 0.7 % (0.0-2.0) Sodium Level 149 MMOL/L (136-145) H Potassium Level 5.2 MMOL/L (3.5-5.1) H Chloride Level 116 MMOL/L (98-107) H Carbon Dioxide Level 20 MMOL/L (21-32) L Anion Gap 13 mmol/L (5-15) Blood Urea Nitrogen 36 mg/dL (7-18) H Creatinine 0.9 MG/DL (0.55-1.30) Estimat Glomerular Filtration Rate mL/min (>60) Glucose Level 227 MG/DL (74-106) H Calcium Level 9.6 MG/DL (8.5-10.1) Amylase Level 135 U/L (25-115) H Lipase 672 U/L (73-393) H Donny Kelley MD Dec 19, 2018 19:10
--- NOTE | 2018-12-19 19:13 | NUR ---
NURSE NOTES: Observed pt sleeping on the bed. Current vent setting is Portex 7 with settings AC 18, TV 500, FiO2 35%, PEEP 5. G-Tube intact and receiving Glucerna 1.2 @55cc/hr. Pt has a suprapubic catheter, intact and draining well. Right upper quadrant colostomy bag is in place and draining. PICC L UA, intact and patent. Bed in the lowest position. Side rails up x3. Will continue to monitor.
[2018-12-19 20:00] VITALS: BP 103/63
[2018-12-19] MEDS: Dyna-Hex 2% Top Sol 2oz TOPIC SCH (20:29)
[2018-12-20] MEDS: NovoLOG Insulin Flexpen SUBQ SCH ×6 (01:53→20:34)
--- NOTE | 2018-12-20 04:45 | Progress Note ---
DATE: 12/19/2018 SUBJECTIVE: The patient is awake, alert, afebrile, eye contact, but lethargic and not able to express himself in sentences, only by head, yes or no. PHYSICAL EXAMINATION: VITAL SIGNS: Blood pressure is 103/63, his pulse is 110, respirations are 27, and temperature 98.4. HEENT: Eyes were normal. ENT, mucous membranes were moist and intact. NECK: Supple with no JVD without lymph nodes. Tracheostomy site is clean. LUNGS: Clear without rhonchi, rales, or wheezing. In the upper lobe, there is bilateral rhonchi at both bases, more on the left than on the right. HEART: Normal sounds with regular beats. There is no S3, S4, or pericardial rub. There is tachycardia at rest. Sinus tachycardia on monitor. ABDOMEN: Soft and nontender with normal bowel sounds. Gastrostomy site is clean. EXTREMITIES: Warm without cyanosis, clubbing, or edema. LABORATORY AND DIAGNOSTIC DATA: His hemoglobin is 8.4, hematocrit 26.7, MCV of 96, WBC of 10.8, and platelets are 217,000. His BUN and creatinine is 36 and 0.9 respectively. His sodium is 149, potassium 5.2, chloride 116, CO2 is 27, lipase of 155, it was 672. His BNP is 826. Blood culture taken on 12/15/2018 showed no growth after 4 days. Blood culture shows no growth after 4 days as well. The patient is now treated by aztreonam for bacteremia and Proteus UTI. The patient is treated by colistin for Pseudomonas aeruginosa MDR in the sputum. patient's mental status did not return to normal. Neurological practice management consultant will be called to assist in the management of this case. Neema Hutchins M.D. DR: PIERCE JOB#: [id number] CC:
[2018-12-20] MEDS: Aztreonam Inj 1 GM in D5W 55 ML IVPB SCH ×3 (05:38→21:12)
[2018-12-20 05:53] LABS: BASOPHILS % (AUTO) 0.9 % (0.0-2.0); EOSINOPHILS % (AUTO) 1.1 % (0.0-3.0); HEMATOCRIT 27.2 % (42.0-52.0); HEMOGLOBIN 8.6 G/DL (14.2-18.0); LYMPHOCYTES % (AUTO) 9.3 % (20.0-45.0); MEAN CORPUSCULAR VOLUME 96 FL (80-99); MONOCYTES % (AUTO) 4.6 % (1.0-10.0); NEUTROPHILS % (AUTO) 84.1 % (45.0-75.0); PLATELET COUNT 259 K/UL (150-450); RED BLOOD COUNT 2.84 M/UL (4.70-6.10); RED CELL DISTRIBUTION WIDTH 16.1 % (11.6-14.8); WHITE BLOOD COUNT 11.5 K/UL (4.8-10.8)
[2018-12-20 06:11] LABS: ALANINE AMINOTRANSFERASE 16 U/L (12-78); ALBUMIN 1.3 G/DL (3.4-5.0); ALBUMIN/GLOBULIN RATIO 0.2 (1.0-2.7); ALKALINE PHOSPHATASE 151 U/L (46-116); ANION GAP 13 mmol/L (5-15); ASPARTATE AMINO TRANSFERASE 19 U/L (15-37); BILIRUBIN,TOTAL 0.2 MG/DL (0.2-1.0); BLOOD UREA NITROGEN 39 mg/dL (7-18); CALCIUM 9.9 MG/DL (8.5-10.1); CARBON DIOXIDE 22 MMOL/L (21-32); CHLORIDE 116 MMOL/L (98-107); PHOSPHORUS 3.1 MG/DL (2.5-4.9); POTASSIUM 4.8 MMOL/L (3.5-5.1); SODIUM 151 MMOL/L (136-145)
--- NOTE | 2018-12-20 07:20 | NUR ---
HAND-OFF: Report given to SHAKIR Fagan. No acute distress noted at this time.
--- NOTE | 2018-12-20 07:25 | NUR ---
NURSE NOTES: Patient received from Sudarshan RN. Oriented X1, connected to bus driver/monitor. Track to vent, Portex 7 with vent settings AC 18, vt500, PEEP 5, FAio2 35%. No signs of distress. G-tube noted and intact with g-tube feeding running Glucerna at 55/hr. Colostomy noted. Suprapubic connected to bag draining urine. Skin alterations noted on overlay mattress. PICC on left upper arm, TKO. Bed at lowest position, 3 rails up and call light in reach. Will continue to monitor.
[2018-12-20 08:00] VITALS: BP 106/63
[2018-12-20] MEDS: Atenolol 25mg tab ORAL SCH ×2 (09:00→20:33)
[2018-12-20] MEDS: dilTIAZem HCl 30mg tab GT SCH ×2 (09:00→17:18)
--- NOTE | 2018-12-20 09:28 | Pulmonolgy Critical Care Note ---
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 Respiratory: adjust tidal volume, monitor respiratory rate, adjust FIO2, CXR Cardiac: continue to monitor HR/BP Renal: F/U I&O, keep IV fluid Infectious Disease: check cultures, continue antibiotics Gastrointestinal: continue feedings/current rate Endocrine: monitor blood sugar Hematologic: monitor H/H, transfuse if hgb<8.5 Neurologic: PRN Morphine, keep patient comfortable Prophylaxis: Protonix Disposition: keep in ICU 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, 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 Discussed with: nurses, consultants, 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 encaserparts manager - Objective Last 24 Hour Vital Signs Date Time Temp Pulse Resp B/P (MAP) Pulse Ox O2 Delivery O2 Flow Rate FiO2 12/20/18 08:00 35 12/20/18 08:00 98.4 103 28 106/63 (77) 98 12/20/18 08:00 Mechanical Ventilator 12/20/18 07:15 91 24 35 12/20/18 04:42 89 26 35 12/20/18 04:00 99.7 12/20/18 04:00 35 12/20/18 04:00 Mechanical Ventilator 12/20/18 04:00 94 12/20/18 02:40 96 30 35 12/20/18 00:52 102 29 35 12/20/18 00:21 99.7 12/20/18 00:00 Mechanical Ventilator 12/20/18 00:00 110 12/20/18 00:00 35 12/19/18 23:44 100.7 12/19/18 22:38 107 31 35 12/19/18 22:20 109 29 100 Mechanical Ventilator 35 12/19/18 22:03 109 27 99 Mechanical Ventilator 35 12/19/18 21:34 110 103/63 12/19/18 21:18 110 29 35 12/19/18 20:00 113 12/19/18 20:00 98.4 111 29 103/63 (76) 100 12/19/18 20:00 Mechanical Ventilator 12/19/18 20:00 35 12/19/18 19:25 103 25 35 12/19/18 17:48 85 100/63 12/19/18 17:34 85 23 35 12/19/18 16:00 Mechanical Ventilator 12/19/18 16:00 112 12/19/18 16:00 101.2 111 30 100/63 (75) 95 12/19/18 16:00 35 12/19/18 14:55 89 24 35 12/19/18 12:51 87 24 35 12/19/18 12:00 98.1 105 30 108/67 (81) 100 12/19/18 12:00 Mechanical Ventilator 12/19/18 12:00 108 12/19/18 12:00 35 12/19/18 10:30 86 23 35 12/19/18 10:30 Mechanical Ventilator 12/19/18 10:30 Mechanical Ventilator 12/19/18 10:07 102 99/66 12/19/18 10:05 102 Status: awake Condition: critical HEENT: atraumatic Lungs: clear Heart: HR/BP unstable Abdomen: soft Extremities: no C/C/E, edema Decubiti: location Accucheck: 274 Critical Care - Subjective ROS Limited/Unobtainable: Yes Condition: critical FI02: 35 Vent Support Breath Rate: 18 Vent Support Mode: AC Vent Tidal Volume: 500 Sputum Amount: Small PEEP: 5.0 PIP: 35 Tube Feeding Amount: 55 I&O: Intake and Output 12/19/18 12/20/18 18:59 06:59 Intake Total 915 ml 910 ml Output Total 1350 ml Balance 915 ml -440 ml Intake Free Water 200 ml 140 ml IV Total 55 ml 110 ml Tube Feeding 660 ml 660 ml Output Urine Total 400 ml Stool Total 950 ml CXR: no change Labs: Laboratory Tests Test 12/20/18 04:00 White Blood Count 11.5 K/UL (4.8-10.8) H Red Blood Count 2.84 M/UL (4.70-6.10) L Hemoglobin 8.6 G/DL (14.2-18.0) L Hematocrit 27.2 % (42.0-52.0) L Mean Corpuscular Volume 96 FL (80-99) Mean Corpuscular Hemoglobin 30.3 PG (27.0-31.0) Mean Corpuscular Hemoglobin Concent 31.6 G/DL (32.0-36.0) L Red Cell Distribution Width 16.1 % (11.6-14.8) H Platelet Count 259 K/UL (150-450) Mean Platelet Volume 9.6 FL (6.5-10.1) Neutrophils (%) (Auto) 84.1 % (45.0-75.0) H Lymphocytes (%) (Auto) 9.3 % (20.0-45.0) L Monocytes (%) (Auto) 4.6 % (1.0-10.0) Eosinophils (%) (Auto) 1.1 % (0.0-3.0) Basophils (%) (Auto) 0.9 % (0.0-2.0) Sodium Level 151 MMOL/L (136-145) H Potassium Level 4.8 MMOL/L (3.5-5.1) Chloride Level 116 MMOL/L (98-107) H Carbon Dioxide Level 22 MMOL/L (21-32) Anion Gap 13 mmol/L (5-15) Blood Urea Nitrogen 39 mg/dL (7-18) H Creatinine 1.0 MG/DL (0.55-1.30) Estimat Glomerular Filtration Rate mL/min (>60) Glucose Level 265 MG/DL (74-106) H Calcium Level 9.9 MG/DL (8.5-10.1) Phosphorus Level 3.1 MG/DL (2.5-4.9) Magnesium Level 1.9 MG/DL (1.8-2.4) Total Bilirubin 0.2 MG/DL (0.2-1.0) Aspartate Amino Transf (AST/SGOT) 19 U/L (15-37) Alanine Aminotransferase (ALT/SGPT) 16 U/L (12-78) Alkaline Phosphatase 151 U/L (46-116) H Total Protein 8.0 G/DL (6.4-8.2) Albumin 1.3 G/DL (3.4-5.0) L Globulin 6.7 g/dL Albumin/Globulin Ratio 0.2 (1.0-2.7) L Abhishek Guerra MD Dec 20, 2018 09:28
[2018-12-20] MEDS: Tobramycin for inhalation INH SCH ×2 (10:04→22:10)
[2018-12-20] MEDS: Heparin 5000 units/ml inj SUBQ SCH ×2 (10:31→20:32)
[2018-12-20] MEDS: metFORMIN 500mg tab ORAL SCH ×2 (10:35→17:08)
--- NOTE | 2018-12-20 10:47 | GI Progress Note ---
Assessment/Plan Problems: (1) Colostomy care ICD Codes: Z43.3 - Encounter for attention to colostomy SNOMED: 172566552 (2) Anemia ICD Codes: D64.9 - Anemia, unspecified SNOMED: 271012955 (3) Feeding by G-tube ICD Codes: Z93.1 - Gastrostomy status SNOMED: 709561037, 068307063 (4) Abdominal wall cellulitis ICD Codes: L03.311 - Cellulitis of abdominal wall SNOMED: 01979149 (5) Acute pancreatitis ICD Codes: K85.90 - Acute pancreatitis without necrosis or infection, unspecified SNOMED: 118340812 (6) Pancreatitis ICD Codes: K85.90 - Acute pancreatitis without necrosis or infection, unspecified SNOMED: 39465710 Status: progressing Status Narrative Discussed with Dr. Jackson. Assessment/Plan Occult blood stool positive Pancreatitis fu H&H ppi daily lopid GTFs per RD replace mag tumor markers fu stool ob Trend lipase, downtrending The patient was seen and examined at bedside and all new and available data was reviewed in the patients chart. I agree with the above findings, impression and plan. (Patient seen earlier today. Signature stamp does not reflect patient encounter time.). - Benjamin Jackson MD Subjective Subjective Limited Objective Last 24 Hour Vital Signs Date Time Temp Pulse Resp B/P (MAP) Pulse Ox O2 Delivery O2 Flow Rate FiO2 12/20/18 10:34 108 12/20/18 10:04 108 31 99 Mechanical Ventilator 35 12/20/18 08:30 106 28 35 12/20/18 08:00 35 12/20/18 08:00 102 12/20/18 08:00 98.4 103 28 106/63 (77) 98 12/20/18 08:00 Mechanical Ventilator 12/20/18 07:15 91 24 35 12/20/18 04:42 89 26 35 12/20/18 04:00 99.7 12/20/18 04:00 35 12/20/18 04:00 Mechanical Ventilator 12/20/18 04:00 94 12/20/18 02:40 96 30 35 12/20/18 00:52 102 29 35 12/20/18 00:21 99.7 12/20/18 00:00 Mechanical Ventilator 12/20/18 00:00 110 12/20/18 00:00 35 12/19/18 23:44 100.7 12/19/18 22:38 107 31 35 12/19/18 22:20 109 29 100 Mechanical Ventilator 35 12/19/18 22:03 109 27 99 Mechanical Ventilator 35 12/19/18 21:34 110 103/63 12/19/18 21:18 110 29 35 12/19/18 20:00 113 12/19/18 20:00 98.4 111 29 103/63 (76) 100 12/19/18 20:00 Mechanical Ventilator 12/19/18 20:00 35 12/19/18 19:25 103 25 35 12/19/18 17:48 85 100/63 12/19/18 17:34 85 23 35 12/19/18 16:00 Mechanical Ventilator 12/19/18 16:00 112 12/19/18 16:00 101.2 111 30 100/63 (75) 95 12/19/18 16:00 35 12/19/18 14:55 89 24 35 12/19/18 12:51 87 24 35 12/19/18 12:00 98.1 105 30 108/67 (81) 100 12/19/18 12:00 Mechanical Ventilator 12/19/18 12:00 108 12/19/18 12:00 35 Intake and Output 12/19/18 12/20/18 18:59 06:59 Intake Total 915 ml 910 ml Output Total 1350 ml Balance 915 ml -440 ml Intake Free Water 200 ml 140 ml IV Total 55 ml 110 ml Tube Feeding 660 ml 660 ml Output Urine Total 400 ml Stool Total 950 ml Laboratory Tests Test 12/20/18 04:00 White Blood Count 11.5 K/UL (4.8-10.8) H Red Blood Count 2.84 M/UL (4.70-6.10) L Hemoglobin 8.6 G/DL (14.2-18.0) L Hematocrit 27.2 % (42.0-52.0) L Mean Corpuscular Volume 96 FL (80-99) Mean Corpuscular Hemoglobin 30.3 PG (27.0-31.0) Mean Corpuscular Hemoglobin Concent 31.6 G/DL (32.0-36.0) L Red Cell Distribution Width 16.1 % (11.6-14.8) H Platelet Count 259 K/UL (150-450) Mean Platelet Volume 9.6 FL (6.5-10.1) Neutrophils (%) (Auto) 84.1 % (45.0-75.0) H Lymphocytes (%) (Auto) 9.3 % (20.0-45.0) L Monocytes (%) (Auto) 4.6 % (1.0-10.0) Eosinophils (%) (Auto) 1.1 % (0.0-3.0) Basophils (%) (Auto) 0.9 % (0.0-2.0) Sodium Level 151 MMOL/L (136-145) H Potassium Level 4.8 MMOL/L (3.5-5.1) Chloride Level 116 MMOL/L (98-107) H Carbon Dioxide Level 22 MMOL/L (21-32) Anion Gap 13 mmol/L (5-15) Blood Urea Nitrogen 39 mg/dL (7-18) H Creatinine 1.0 MG/DL (0.55-1.30) Estimat Glomerular Filtration Rate mL/min (>60) Glucose Level 265 MG/DL (74-106) H Calcium Level 9.9 MG/DL (8.5-10.1) Phosphorus Level 3.1 MG/DL (2.5-4.9) Magnesium Level 1.9 MG/DL (1.8-2.4) Total Bilirubin 0.2 MG/DL (0.2-1.0) Aspartate Amino Transf (AST/SGOT) 19 U/L (15-37) Alanine Aminotransferase (ALT/SGPT) 16 U/L (12-78) Alkaline Phosphatase 151 U/L (46-116) H Total Protein 8.0 G/DL (6.4-8.2) Albumin 1.3 G/DL (3.4-5.0) L Globulin 6.7 g/dL Albumin/Globulin Ratio 0.2 (1.0-2.7) L Height (Feet): 5 Height (Inches): 8.00 Weight (Pounds): 140 General Appearance: WD/WN, no apparent distress, alert Cardiovascular: normal rate Respiratory/Chest: normal breath sounds, no respiratory distress Abdominal Exam: normal bowel sounds, non tender, soft, GT site - c/d/i Extremities: non-tender Germain,Lexy-Des SENIOR QUALITY ENGINEER Dec 20, 2018 10:47
--- NOTE | 2018-12-20 11:46 | Infectious Diseases Prog Note ---
Assessment/Plan Assessment/Plan Assessment: Severe Sepsis 2ry to GNR -12/17 CXR: No significant interval change in the diffuse patchy bilateral reticular interstitial and airspace opacities. -CXR: Probable small left pleural effusion, also evident on prior study 2017. Bilateral interstitial disease, unchanged, suspect chronic. Correlate with clinical findings -sp CX MDR PsA (S Gentamicin, AMikacin, Cefepime, Aztreonam, Tobramycin) GNR bacteremia, likely from UTI -CT abd/p: Findings consistent with uncomplicated nonnecrotizing acute pancreatitis. No evidence of associated peripancreatic abscess Surgical changes as described, including right lower quadrant ileostomy, subtotal colectomy with Haroldo procedure. Wall thickening of the Haroldo pouch. This could indicate inflammation. However, this is also present on both of the prior 2 exams and may be baseline for this patien. Evidence of mild anasarca, with edema of the subcutaneous fat. This is a new finding. Chronic appearing decubitus changes of the bilateral ischia. Correlate with clinical findings. Complete left lower lobe consolidation. This is similar to both of the prior CTs, andis likely a chronic finding. There is progressive chronic interstitial fibrotic change involving the right middle lobe. There is also right lower lobe granulomatous calcification, Extensive pulmonary parenchymal opacities bilaterally may reflect acute inflammation/infection, edema, progressive chronic scarring, orcombination of the above. These are considerably more extensive than on the prior study -u/a 10-15, nit neg, luek +3; ucx 50-60k Enterococcus (Vanco resist; S AMp), 40-50 K Proteus -12/07 Bcx 3/ Proteus; 12/08 Bcx 1/4 Proteus (S Aztreonam; R Cipro, levo; I Imipenem); 12/12 BCx p Acute pancreatitis -lipase ~1k Fever - recurrent- in the setting of bacteremia and pancreaitis; improving Leukocytosis , mild recurrent-in the setting of bacteremia, UTI and acute pancreatitis CONS bacteremia- likely contaminant -12/12 Bcx 1/4 CONS; 12/14 Bcx Neg Hyponatremia, improving MAULIK, improving dysphagia s/p peg COPD GBS quadriplegia chronic resp failure s/p trach HTN CVA, nonverbal anemia SNF resident Plan: -Continue Aztreonam #/ for Proteus UTi and bacteremia -Add INH tobramycin #6/7 for MDR PsA in sputum -12/16 SP IV Daptomycin #7 -Repeat cultures -Monitor CBC/CMP, temperatures -PEG/Trach care -Aspiration precautions -management of acute pancreatitis per primary team. -CXR am Will continue to follow along with you. Subjective Allergies: Coded Allergies: PENICILLINS (Unverified Allergy, Unknown, 02/26/16) POLYMYXIN B (Unverified Allergy, Unknown, 02/26/16) VANCOMYCIN (Unverified Allergy, Unknown, 02/26/16) Subjective Tm 101.2 leukocytosis mild recurrent repeat Bcx Neg Objective Vital Signs Last 24 Hour Vital Signs Date Time Temp Pulse Resp B/P (MAP) Pulse Ox O2 Delivery O2 Flow Rate FiO2 12/20/18 11:00 108 30 35 12/20/18 10:34 108 12/20/18 10:25 108 30 100 Mechanical Ventilator 35 12/20/18 10:04 108 31 99 Mechanical Ventilator 35 12/20/18 09:00 108 106/63 12/20/18 09:00 108 106/63 12/20/18 08:30 106 28 35 12/20/18 08:00 35 12/20/18 08:00 102 12/20/18 08:00 98.4 103 28 106/63 (77) 98 12/20/18 08:00 Mechanical Ventilator 12/20/18 07:15 91 24 35 12/20/18 04:42 89 26 35 12/20/18 04:00 99.7 12/20/18 04:00 35 12/20/18 04:00 Mechanical Ventilator 12/20/18 04:00 94 12/20/18 02:40 96 30 35 12/20/18 00:52 102 29 35 12/20/18 00:21 99.7 12/20/18 00:00 Mechanical Ventilator 12/20/18 00:00 110 12/20/18 00:00 35 12/19/18 23:44 100.7 12/19/18 22:38 107 31 35 12/19/18 22:20 109 29 100 Mechanical Ventilator 35 12/19/18 22:03 109 27 99 Mechanical Ventilator 35 12/19/18 21:34 110 103/63 12/19/18 21:18 110 29 35 12/19/18 20:00 113 12/19/18 20:00 98.4 111 29 103/63 (76) 100 12/19/18 20:00 Mechanical Ventilator 12/19/18 20:00 35 12/19/18 19:25 103 25 35 12/19/18 17:48 85 100/63 12/19/18 17:34 85 23 35 12/19/18 16:00 Mechanical Ventilator 12/19/18 16:00 112 12/19/18 16:00 101.2 111 30 100/63 (75) 95 12/19/18 16:00 35 12/19/18 14:55 89 24 35 12/19/18 12:51 87 24 35 12/19/18 12:00 98.1 105 30 108/67 (81) 100 12/19/18 12:00 Mechanical Ventilator 12/19/18 12:00 108 12/19/18 12:00 35 Height (Feet): 5 Height (Inches): 8.00 Weight (Pounds): 140 Objective HEENT: Eyes were normal. ENT, mucous membranes were not dehydrated. NECK: Supple. There was no goiter. No mass. No lymphadenopathy. There was no JVD. No bruits. Carotid upstroke was 2+. LUNGS: Clear. HEART: PMI was in the fifth left intercostal space in midclavicular line. There was normal S1 and normal S2. There was no murmur. No arrhythmia. No S3. No S4. No pericardial rub. ABDOMEN: Soft and nontender without organomegaly. There were no masses palpable. Normal bowel sounds without bruits. There was no guarding. No rebound tenderness. No ascites. No hernia. No CVA tenderness. EXTREMITIES: No cyanosis, no clubbing, and no edema. Extremities were warm. Laboratory Tests Test 12/20/18 04:00 White Blood Count 11.5 K/UL (4.8-10.8) H Red Blood Count 2.84 M/UL (4.70-6.10) L Hemoglobin 8.6 G/DL (14.2-18.0) L Hematocrit 27.2 % (42.0-52.0) L Mean Corpuscular Volume 96 FL (80-99) Mean Corpuscular Hemoglobin 30.3 PG (27.0-31.0) Mean Corpuscular Hemoglobin Concent 31.6 G/DL (32.0-36.0) L Red Cell Distribution Width 16.1 % (11.6-14.8) H Platelet Count 259 K/UL (150-450) Mean Platelet Volume 9.6 FL (6.5-10.1) Neutrophils (%) (Auto) 84.1 % (45.0-75.0) H Lymphocytes (%) (Auto) 9.3 % (20.0-45.0) L Monocytes (%) (Auto) 4.6 % (1.0-10.0) Eosinophils (%) (Auto) 1.1 % (0.0-3.0) Basophils (%) (Auto) 0.9 % (0.0-2.0) Sodium Level 151 MMOL/L (136-145) H Potassium Level 4.8 MMOL/L (3.5-5.1) Chloride Level 116 MMOL/L (98-107) H Carbon Dioxide Level 22 MMOL/L (21-32) Anion Gap 13 mmol/L (5-15) Blood Urea Nitrogen 39 mg/dL (7-18) H Creatinine 1.0 MG/DL (0.55-1.30) Estimat Glomerular Filtration Rate mL/min (>60) Glucose Level 265 MG/DL (74-106) H Calcium Level 9.9 MG/DL (8.5-10.1) Phosphorus Level 3.1 MG/DL (2.5-4.9) Magnesium Level 1.9 MG/DL (1.8-2.4) Total Bilirubin 0.2 MG/DL (0.2-1.0) Aspartate Amino Transf (AST/SGOT) 19 U/L (15-37) Alanine Aminotransferase (ALT/SGPT) 16 U/L (12-78) Alkaline Phosphatase 151 U/L (46-116) H Total Protein 8.0 G/DL (6.4-8.2) Albumin 1.3 G/DL (3.4-5.0) L Globulin 6.7 g/dL Albumin/Globulin Ratio 0.2 (1.0-2.7) L Current Medications Medications (Trade) Dose Ordered Sig/Fransisco Route PRN Reason Start Time Stop Time Status Last Admin Dose Admin Acetaminophen (Tylenol) 650 mg Q4H PRN GT For Pain 12/07/18 17:00 01/06/19 16:59 12/19/18 23:51 Acetaminophen (Tylenol) 650 mg Q4H PRN GT fever 12/10/18 09:45 01/06/19 16:59 12/18/18 12:44 Atenolol (Tenormin) 25 mg Q12HR ORAL 12/12/18 21:00 01/11/19 20:59 12/19/18 21:34 Aztreonam 1 gm/ Dextrose 55 ml @ 110 mls/hr Q8HR IVPB 12/09/18 15:00 12/22/18 23:59 12/20/18 05:38 Chlorhexidine Gluconate (Sandra-Hex 2%) 1 applic DAILY@2000 TOPIC 12/10/18 20:00 01/09/19 19:59 12/19/18 20:29 Dextrose (Dextrose 50%) 25 ml Q30M PRN IV Hypoglycemia 12/10/18 14:00 01/09/19 13:59 Dextrose (Dextrose 50%) 50 ml Q30M PRN IV Hypoglycemia 12/10/18 14:00 01/09/19 13:59 Digoxin (Lanoxin) 0.25 mg DAILY GT 12/12/18 09:00 01/10/19 08:59 12/20/18 10:34 Diltiazem HCl (Cardizem) 10 mg BIDPRN PRN IVP FOR HR >140 12/12/18 08:45 01/11/19 08:44 Diltiazem HCl (Cardizem) 30 mg BID GT 12/11/18 18:00 01/10/19 17:59 12/19/18 17:48 Gemfibrozil (Lopid) 600 mg TWICE A DAY GT 12/15/18 10:15 01/14/19 10:14 12/20/18 10:35 Heparin Sodium (Porcine) (Heparin 5000 units/ml) 5,000 units EVERY 12 HOURS SUBQ 12/07/18 21:00 01/06/19 20:59 12/20/18 10:31 Insulin Aspart (NovoLOG) EVERY 4 HOURS SUBQ 12/12/18 05:00 01/09/19 04:59 12/20/18 11:36 Lansoprazole (Prevacid) 30 mg DAILY GT 12/17/18 09:00 01/16/19 08:59 12/20/18 10:34 Metformin HCl (Glucophage) 500 mg BID ORAL 12/18/18 09:00 01/17/19 08:59 12/20/18 10:35 Nateglinide (Starlix) 120 mg Q8HR ORAL 12/18/18 22:00 01/17/19 21:59 12/20/18 05:38 Nitroglycerin (Ntg) 0.4 mg Q5M PRN SL Prn Chest Pain 12/07/18 17:00 01/06/19 16:59 Ondansetron HCl (Zofran) 4 mg Q6H PRN IVP Nausea & Vomiting 12/07/18 17:00 01/06/19 16:59 Polyethylene Glycol (Miralax) 17 gm DAILYPRN PRN GT Constipation 12/10/18 09:45 01/06/19 16:59 Tobramycin Sulfate (Nebcin) 300 mg Q12HR@10,22 INH 12/15/18 10:30 12/22/18 10:29 12/20/18 10:04 Aminah Champagne M.D. Dec 20, 2018 11:46
[2018-12-20 12:00] VITALS: BP 111/63
--- NOTE | 2018-12-20 12:01 | Surgery Progress Note ---
Surgery Progress Note Subjective Additional Comments no acute events. comfortable. labs noted. exam unchanged. Objective Last 24 Hour Vital Signs Date Time Temp Pulse Resp B/P (MAP) Pulse Ox O2 Delivery O2 Flow Rate FiO2 12/20/18 11:00 108 30 35 12/20/18 10:34 108 12/20/18 10:25 108 30 100 Mechanical Ventilator 35 12/20/18 10:04 108 31 99 Mechanical Ventilator 35 12/20/18 09:00 108 106/63 12/20/18 09:00 108 106/63 12/20/18 08:30 106 28 35 12/20/18 08:00 35 12/20/18 08:00 102 12/20/18 08:00 98.4 103 28 106/63 (77) 98 12/20/18 08:00 Mechanical Ventilator 12/20/18 07:15 91 24 35 12/20/18 04:42 89 26 35 12/20/18 04:00 99.7 12/20/18 04:00 35 12/20/18 04:00 Mechanical Ventilator 12/20/18 04:00 94 12/20/18 02:40 96 30 35 12/20/18 00:52 102 29 35 12/20/18 00:21 99.7 12/20/18 00:00 Mechanical Ventilator 12/20/18 00:00 110 12/20/18 00:00 35 12/19/18 23:44 100.7 12/19/18 22:38 107 31 35 12/19/18 22:20 109 29 100 Mechanical Ventilator 35 12/19/18 22:03 109 27 99 Mechanical Ventilator 35 12/19/18 21:34 110 103/63 12/19/18 21:18 110 29 35 12/19/18 20:00 113 12/19/18 20:00 98.4 111 29 103/63 (76) 100 12/19/18 20:00 Mechanical Ventilator 12/19/18 20:00 35 12/19/18 19:25 103 25 35 12/19/18 17:48 85 100/63 12/19/18 17:34 85 23 35 12/19/18 16:00 Mechanical Ventilator 12/19/18 16:00 112 12/19/18 16:00 101.2 111 30 100/63 (75) 95 12/19/18 16:00 35 12/19/18 14:55 89 24 35 12/19/18 12:51 87 24 35 I&O Intake and Output 12/19/18 12/20/18 19:00 07:00 Intake Total 915 ml 855 ml Output Total 1350 ml Balance 915 ml -495 ml Intake Free Water 200 ml 140 ml IV Total 55 ml 110 ml Tube Feeding 660 ml 605 ml Output Urine Total 400 ml Stool Total 950 ml Dressing: saturated, other Wound: clean, other Drains: other Cardiovascular: RSR Respiratory: decreased breath sounds Abdomen: soft, present bowel sounds, other, non-distended Extremities: no cyanosis, other Laboratory Tests Test 12/20/18 04:00 White Blood Count 11.5 K/UL (4.8-10.8) H Red Blood Count 2.84 M/UL (4.70-6.10) L Hemoglobin 8.6 G/DL (14.2-18.0) L Hematocrit 27.2 % (42.0-52.0) L Mean Corpuscular Volume 96 FL (80-99) Mean Corpuscular Hemoglobin 30.3 PG (27.0-31.0) Mean Corpuscular Hemoglobin Concent 31.6 G/DL (32.0-36.0) L Red Cell Distribution Width 16.1 % (11.6-14.8) H Platelet Count 259 K/UL (150-450) Mean Platelet Volume 9.6 FL (6.5-10.1) Neutrophils (%) (Auto) 84.1 % (45.0-75.0) H Lymphocytes (%) (Auto) 9.3 % (20.0-45.0) L Monocytes (%) (Auto) 4.6 % (1.0-10.0) Eosinophils (%) (Auto) 1.1 % (0.0-3.0) Basophils (%) (Auto) 0.9 % (0.0-2.0) Sodium Level 151 MMOL/L (136-145) H Potassium Level 4.8 MMOL/L (3.5-5.1) Chloride Level 116 MMOL/L (98-107) H Carbon Dioxide Level 22 MMOL/L (21-32) Anion Gap 13 mmol/L (5-15) Blood Urea Nitrogen 39 mg/dL (7-18) H Creatinine 1.0 MG/DL (0.55-1.30) Estimat Glomerular Filtration Rate mL/min (>60) Glucose Level 265 MG/DL (74-106) H Calcium Level 9.9 MG/DL (8.5-10.1) Phosphorus Level 3.1 MG/DL (2.5-4.9) Magnesium Level 1.9 MG/DL (1.8-2.4) Total Bilirubin 0.2 MG/DL (0.2-1.0) Aspartate Amino Transf (AST/SGOT) 19 U/L (15-37) Alanine Aminotransferase (ALT/SGPT) 16 U/L (12-78) Alkaline Phosphatase 151 U/L (46-116) H Total Protein 8.0 G/DL (6.4-8.2) Albumin 1.3 G/DL (3.4-5.0) L Globulin 6.7 g/dL Albumin/Globulin Ratio 0.2 (1.0-2.7) L Plan Problems: (1) Decubitus skin ulcer Assessment & Plan: Pt presented on admission with multiple pressure injuries and Skin erosion. Pt has trach and no evidence of skin breakdown noted under trach collar. Unstageable pressure injury noted to L earlobe. Stable dry brown eschar noted(L) 0.7cm x (W)0.5cm. Gross erythema with denudement and multiple scattered partial thickness wounds noted to buttocks and base of scrotum extending into both posterior upper thighs.Moderate amt sanguineous exudate noted upon removal of drsgs. 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 Moderate amt sanguineous exudate noted (L)3cm x (W)1cm x (D)7.4cm.Erythema periwound secondary to skin erosions. Partially opened DTPI L ischium .Base of wound purple,fluctuant with red borders.Open areas at base of this wound are beefy red in colour.Moderate amt sanguineous exudate noted.(L)7cm x (W)6.8cm. DTPI R ischium.Wound is fluctuant-purple in center with surrounding Maroon colour, and is partially opened with a small area of 5% that is necrotic.(L) 6.5cm x (W)5.5cm. Red skin erosion periwound. Partial thickness pressure injury L hip. Base of wound is moist -viable. Edges adherent and dry. Periwound without erythema or induration(L)1.2cm x (W)0.5cm. Elongate partial thickness wound posterior upper L thigh .Base of wound is moist -viable .Small amt sanguineous exudate noted. (+) maceration along borders. Erythema without induration or elevation in skin temp noted.(L)2cm x (W )9.4cm. DTPI noted to R heel .Base of injury is indurated and maroon in colour. Periwound is firm without erythema. (L)1.5cm x (W)1cm.R heel without evidence of skin breakdown. Tx.Plan: Cleanse Sacrum with Saline. Loosely pack with Hydrogel impregnated Kerlix. Apply Triad Paste periwound. Cover with ABD pad. Daily and prn. Cleanse R and L ischial wounds with Saline. Apply Moisture Barrier Paste.Cover with abd pads Daily and prn. Apply Moisture Barrier to skin erosions on buttocks,scrotum, and posterior aspects of both thighs.Cover with ABD pad daily and prn. Cleanse wound L hip with Saline. Apply Moisture Barrier paste .Cover with Optifoam drsg Daily and prn. Cleanse wound posterior upper L thigh with saline .Apply Hydrogel. Cover with Optifoam drsg Daily and prn. Apply Cavilon Skin Barrier to L earlobe daily. Please monitor. Apply Cavilon Skin Barrier to L heel. Cover with Optifoam drsg. Change every 7 days and prn. Apply Cavilon Skin Barrier to R heel. Cover with Optifoam drsg .Change every 7 days and prn. Air fluidized mattress. Reposition every 2hours or as tolerated. Off-load heels with pillow. (2) Acute and chronic respiratory failure Assessment & Plan: cont with breathing treatments trach stable trach site clean will change dressings daily (3) Acute pancreatitis Assessment & Plan: Findings consistent with uncomplicated nonnecrotizing acute pancreatitis. No evidence of associated peripancreatic abscess Surgical changes as described, including right lower quadrant ileostomy, subtotal colectomy with Haroldo procedure. Wall thickening of the Haroldo pouch. This could indicate inflammation. However, this is also present on both of the prior 2 exams and may be baseline for this patient Evidence of mild anasarca, with edema of the subcutaneous fat. This is a new finding Chronic appearing decubitus changes of the bilateral ischia. Correlate with clinical findings Complete left lower lobe consolidation. This is similar to both of the prior CTs , and is likely a chronic finding. There is progressive chronic interstitial fibrotic change involving the right middle lobe. There is also right lower lobe granulomatous calcification Extensive pulmonary parenchymal opacities bilaterally may reflect acute inflammation/infection, edema, progressive chronic scarring, or combination of the above. These are considerably more extensive than on the prior study Trace bilateral pleural fluid New finding of nonobstructive right renal collecting system calculs 4 mm calculus within the bladder lumen. This may represent a bladder calculus, a calculus and left ureteral orifice, or recently passed stone. If either of the latter, no evidence of resultant hydronephrosis or hydroureter Suprapubic catheter. This is a new finding since the 2016 exams. Interim removal of previously demonstrated Bledsoe catheter Gastrostomy Left renal cysts. Subcentimeter low-attenuation right renal lesions, too small to characterize, most likely benign simple cysts. No further follow-up necessary elevated amylase/lipase trending down leukocytosis GNR Bacteremia transfused anemia Unfortunately patient not able to participate in exam and difficult to identify if clinically pancreatitis or just laboratory data. Recent CT with uncomplicated pancreatitis but enzymes still remain elevated. Patient tolerated tube feeds. Patient with gram-negative belle bacteremia likely from UTI. Patient remains febrile intermittently with worsening leukocytosis on IV antibiotics. -no acute surgical intervention planned -transfuse as per hematology -Abx as per ID -trend lip/[place] - recent finding based on CT given patient cannot given history or participate in exam. CT with uncomplicated pancreatitis. okay for diet / feeds for now. IV fluids Javier Ricardo Dec 20, 2018 12:01
[2018-12-20] MEDS: Acetaminophen 650mg/20.3ml GT PRN ×2 (13:14→17:10)
[2018-12-20 14:21] LABS: APPEARANCE,URINE CLEAR; BILIRUBIN, URINE NEGATIVE (NEGATIVE); COLOR,URINE PALE YELLOW; GLUCOSE, URINE (UA) 2+ (NEGATIVE); KETONES,URINE NEGATIVE (NEGATIVE); LEUKOCYTE ESTERASE ,URINE 1+ (NEGATIVE); NITRITE,URINE NEGATIVE (NEGATIVE); PH,URINE 5 (4.5-8.0); PROTEIN,URINE 2+ (NEGATIVE); UROBILINOGEN,URINE NORMAL MG/DL (0.0-1.0)
--- NOTE | 2018-12-20 14:23 | Cardiology Progress Note ---
Assessment/Plan Assessment/Plan 1. Supraventricular tachycardia. recurrent 12/09 and 12/10 2. Renal insufficiency. 3. Hyponatremia. 4. 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 6. History of bowel resection. 7. History of CVA. 8. Chronic tracheostomy. 9. Diabetes mellitus. 10 pancreatitis 11. anemai bp borderline cortisol was normal on low dose Cardizem via gtube and dig dig level 0.9 on 12/16 no further svt on the present regimen heart rate stable Subjective ROS Limited/Unobtainable: Yes Subjective on the vent Objective Last 24 Hour Vital Signs Date Time Temp Pulse Resp B/P (MAP) Pulse Ox O2 Delivery O2 Flow Rate FiO2 12/20/18 14:21 101.2 12/20/18 12:36 122 32 35 12/20/18 12:00 112 12/20/18 12:00 35 12/20/18 12:00 Mechanical Ventilator 12/20/18 12:00 99.9 119 30 111/63 (79) 98 12/20/18 11:00 108 30 35 12/20/18 10:34 108 12/20/18 10:25 108 30 100 Mechanical Ventilator 35 12/20/18 10:04 108 31 99 Mechanical Ventilator 35 12/20/18 09:00 108 106/63 12/20/18 09:00 108 106/63 12/20/18 08:30 106 28 35 12/20/18 08:00 35 12/20/18 08:00 102 12/20/18 08:00 98.4 103 28 106/63 (77) 98 12/20/18 08:00 Mechanical Ventilator 12/20/18 07:15 91 24 35 12/20/18 04:42 89 26 35 12/20/18 04:00 99.7 12/20/18 04:00 35 12/20/18 04:00 Mechanical Ventilator 12/20/18 04:00 94 12/20/18 02:40 96 30 35 12/20/18 00:52 102 29 35 12/20/18 00:00 Mechanical Ventilator 12/20/18 00:00 110 12/20/18 00:00 35 12/19/18 23:44 100.7 12/19/18 22:38 107 31 35 12/19/18 22:20 109 29 100 Mechanical Ventilator 35 12/19/18 22:03 109 27 99 Mechanical Ventilator 35 12/19/18 21:34 110 103/63 12/19/18 21:18 110 29 35 12/19/18 20:00 113 12/19/18 20:00 98.4 111 29 103/63 (76) 100 12/19/18 20:00 Mechanical Ventilator 12/19/18 20:00 35 12/19/18 19:25 103 25 35 12/19/18 17:48 85 100/63 12/19/18 17:34 85 23 35 12/19/18 16:00 Mechanical Ventilator 12/19/18 16:00 112 12/19/18 16:00 101.2 111 30 100/63 (75) 95 12/19/18 16:00 35 12/19/18 14:55 89 24 35 General Appearance: no apparent distress, on vent, patient on isolation Extremities: no swelling Intake and Output 12/19/18 12/20/18 19:00 07:00 Intake Total 915 ml 855 ml Output Total 1350 ml Balance 915 ml -495 ml Intake Free Water 200 ml 140 ml IV Total 55 ml 110 ml Tube Feeding 660 ml 605 ml Output Urine Total 400 ml Stool Total 950 ml Laboratory Tests Test 12/20/18 04:00 12/20/18 13:30 White Blood Count 11.5 K/UL (4.8-10.8) H Red Blood Count 2.84 M/UL (4.70-6.10) L Hemoglobin 8.6 G/DL (14.2-18.0) L Hematocrit 27.2 % (42.0-52.0) L Mean Corpuscular Volume 96 FL (80-99) Mean Corpuscular Hemoglobin 30.3 PG (27.0-31.0) Mean Corpuscular Hemoglobin Concent 31.6 G/DL (32.0-36.0) L Red Cell Distribution Width 16.1 % (11.6-14.8) H Platelet Count 259 K/UL (150-450) Mean Platelet Volume 9.6 FL (6.5-10.1) Neutrophils (%) (Auto) 84.1 % (45.0-75.0) H Lymphocytes (%) (Auto) 9.3 % (20.0-45.0) L Monocytes (%) (Auto) 4.6 % (1.0-10.0) Eosinophils (%) (Auto) 1.1 % (0.0-3.0) Basophils (%) (Auto) 0.9 % (0.0-2.0) Sodium Level 151 MMOL/L (136-145) H Potassium Level 4.8 MMOL/L (3.5-5.1) Chloride Level 116 MMOL/L (98-107) H Carbon Dioxide Level 22 MMOL/L (21-32) Anion Gap 13 mmol/L (5-15) Blood Urea Nitrogen 39 mg/dL (7-18) H Creatinine 1.0 MG/DL (0.55-1.30) Estimat Glomerular Filtration Rate mL/min (>60) Glucose Level 265 MG/DL (74-106) H Calcium Level 9.9 MG/DL (8.5-10.1) Phosphorus Level 3.1 MG/DL (2.5-4.9) Magnesium Level 1.9 MG/DL (1.8-2.4) Total Bilirubin 0.2 MG/DL (0.2-1.0) Aspartate Amino Transf (AST/SGOT) 19 U/L (15-37) Alanine Aminotransferase (ALT/SGPT) 16 U/L (12-78) Alkaline Phosphatase 151 U/L (46-116) H Total Protein 8.0 G/DL (6.4-8.2) Albumin 1.3 G/DL (3.4-5.0) L Globulin 6.7 g/dL Albumin/Globulin Ratio 0.2 (1.0-2.7) L Urine Color Pending Urine Appearance Pending Urine pH Pending Urine Specific [place] Pending Urine Protein Pending Urine Glucose (UA) Pending Urine Ketones Pending Urine Blood Pending Urine Nitrite Pending Urine Bilirubin Pending Urine Urobilinogen Pending Urine Leukocyte Esterase Pending Donny Kelley MD Dec 20, 2018 14:23
--- NOTE | 2018-12-20 15:52 | General Progress Note ---
Assessment/Plan Assessment/Plan Assessment/Recs: # Leukocytosis/Elevated white blood cell count, unspecified likely related to underlying stress reaction, smoking, or underlying infection (especially if bandemia is noted) --> have reviewed peripheral smear and bandemia/neutrophilia noted --> continue antibiotics if they have been started by ID team --> monitor for resolution ---> WBC trend: 11-->16-->15-->14-->11 # Anemia of chronic disease due to underlying chronic medical issues, multifactorial --> Anemia workup has been reviewed, Ferritin 1573 --> No evidence of hemolysis is noted, peripheral smear has been reviewed. --> Hgb goal >7. Transfuse prn. --> Epogen or iron at this time is not particularly indicated --> Medications have been reviewed --> HGB trend: 7.8-->7.6-->6.2-->6.4->7.1-->8.7-->9.1-->8.4 # Thrombocytopenia - potential causes multifactorial, evaluate liver and viral etiologies to begin, also could be related to underlying medications patient has received. --> Hep panel and HIV negative --> US abd to evaluate for cirrhosis and hsm reviewed --> Peripheral smear ordered to evaluate for blasts /schistocytes --> abx and other meds have been reviewed --> ok for ppx if plt >50k w/ either heparin or lovenox --> Transfuse if Plt < 20k and fever, or if Plt < 10k without fever # Severe prerenal azotemia, on ivf --> improve po oral intake and consider appetite stimulant # Hypouricemia, appreciate Pulmonary managing consultant # Severe Sepsis, CXR: Probable small left pleural effusion, also evident on prior study 11/22/2017. -->appreciate ID recs # [email or web address], likely from UTI The timing of this note does not necessarily reflect the time of the patient was seen. Greatly appreciate consultation! Subjective ROS Limited/Unobtainable: Yes Allergies: Coded Allergies: PENICILLINS (Unverified Allergy, Unknown, 02/26/16) POLYMYXIN B (Unverified Allergy, Unknown, 02/26/16) VANCOMYCIN (Unverified Allergy, Unknown, 02/26/16) Subjective 12/11: seen by bedside, vent dependent, leukocytosis, 11, hgb 7, will transfuse, no events 12/12: awake, comfortable wbc trending up at 16, no events 12/13: hgb 6.4, receiving transfusion, , wbc remains elevated. no acute events 12/14: seen by bedside, awake, comfortable low grade fever, wbc remains elevated at 15, bacteremia on IV Abx, hgb 7.1, will transfuse as needed 12/15: Wbc remains elevated, no events reported, hgb trending up 12/16: seen by bedside, awake, comfortable, no events 12/18: seen in the room, on vent and trach, no events 12/19: reviewed cbc and appears relatively stable, on starlix, remains in sdu 12/20: seen by bedside, on vent, mild leukocytosis Objective Last 24 Hour Vital Signs Date Time Temp Pulse Resp B/P (MAP) Pulse Ox O2 Delivery O2 Flow Rate FiO2 12/20/18 14:50 115 31 35 12/20/18 14:21 101.2 12/20/18 12:36 122 32 35 12/20/18 12:00 112 12/20/18 12:00 35 12/20/18 12:00 Mechanical Ventilator 12/20/18 12:00 99.9 119 30 111/63 (79) 98 12/20/18 11:00 108 30 35 12/20/18 10:34 108 12/20/18 10:25 108 30 100 Mechanical Ventilator 35 12/20/18 10:04 108 31 99 Mechanical Ventilator 35 12/20/18 09:00 108 106/63 12/20/18 09:00 108 106/63 12/20/18 08:30 106 28 35 12/20/18 08:00 35 12/20/18 08:00 102 12/20/18 08:00 98.4 103 28 106/63 (77) 98 12/20/18 08:00 Mechanical Ventilator 12/20/18 07:15 91 24 35 12/20/18 04:42 89 26 35 12/20/18 04:00 99.7 12/20/18 04:00 35 12/20/18 04:00 Mechanical Ventilator 12/20/18 04:00 94 12/20/18 02:40 96 30 35 12/20/18 00:52 102 29 35 12/20/18 00:00 Mechanical Ventilator 12/20/18 00:00 110 12/20/18 00:00 35 12/19/18 23:44 100.7 12/19/18 22:38 107 31 35 12/19/18 22:20 109 29 100 Mechanical Ventilator 35 12/19/18 22:03 109 27 99 Mechanical Ventilator 35 12/19/18 21:34 110 103/63 12/19/18 21:18 110 29 35 12/19/18 20:00 113 12/19/18 20:00 98.4 111 29 103/63 (76) 100 12/19/18 20:00 Mechanical Ventilator 12/19/18 20:00 35 12/19/18 19:25 103 25 35 12/19/18 17:48 85 100/63 12/19/18 17:34 85 23 35 12/19/18 16:00 Mechanical Ventilator 12/19/18 16:00 112 12/19/18 16:00 101.2 111 30 100/63 (75) 95 12/19/18 16:00 35 Intake and Output 12/19/18 12/20/18 19:00 07:00 Intake Total 915 ml 855 ml Output Total 1350 ml Balance 915 ml -495 ml Intake Free Water 200 ml 140 ml IV Total 55 ml 110 ml Tube Feeding 660 ml 605 ml Output Urine Total 400 ml Stool Total 950 ml Laboratory Tests 12/20/18 04:00: White Blood Count 11.5H, Red Blood Count 2.84L, Hemoglobin 8.6L, Hematocrit 27.2L, Mean Corpuscular Volume 96, Mean Corpuscular Hemoglobin 30.3, Mean Corpuscular Hemoglobin Concent 31.6L, Red Cell Distribution Width 16.1H, Platelet Count 259, Mean Platelet Volume 9.6, Neutrophils (%) (Auto) 84.1H, Lymphocytes (%) (Auto) 9.3L, Monocytes (%) (Auto) 4.6, Eosinophils (%) (Auto) 1.1, Basophils (%) (Auto) 0.9, Sodium Level 151H, Potassium Level 4.8, Chloride Level 116H, Carbon Dioxide Level 22, Anion Gap 13, Blood Urea Nitrogen 39H, Creatinine 1.0, Estimat Glomerular Filtration Rate , Glucose Level 265H, Calcium Level 9.9, Phosphorus Level 3.1, Magnesium Level 1.9, Total Bilirubin 0.2, Aspartate Amino Transf (AST/SGOT) 19, Alanine Aminotransferase (ALT/SGPT) 16, Alkaline Phosphatase 151H, Total Protein 8.0, Albumin 1.3L, Globulin 6.7, Albumin/Globulin Ratio 0.2L 12/20/18 13:30: Urine Color Pale yellow, Urine Appearance Clear, Urine pH 5, Urine Specific [place] 1.015, Urine Protein 2+H, Urine Glucose (UA) 2+H, Urine Ketones Negative , Urine Blood 1+H, Urine Nitrite Negative, Urine Bilirubin Negative, Urine Urobilinogen Normal, Urine Leukocyte Esterase 1+H, Urine RBC 0-2H, Urine WBC 2-4 , Urine Squamous Epithelial Cells Occasional, Urine Amorphous Sediment Occasional, Urine Bacteria Occasional Height (Feet): 5 Height (Inches): 8.00 Weight (Pounds): 140 Objective Physical Exam HEENT: Eyes were normal. ENT, mucous membranes were not dehydrated. NECK: Supple. There was no goiter. No mass. No lymphadenopathy. There was no JVD. No bruits. Carotid upstroke was 2+. LUNGS: Clear. Vent++ HEART: PMI was in the fifth left intercostal space in midclavicular line. There was normal S1 and normal S2. There was no murmur. No arrhythmia. No S3. No S4. No pericardial rub. ABDOMEN: Soft and nontender without organomegaly. There were no masses palpable. Normal bowel sounds without bruits. There was no guarding. No rebound tenderness. No ascites. No hernia. No CVA tenderness. Liver span was 8 cm, mostly nontender. EXTREMITIES: No cyanosis, no clubbing, and no edema. Extremities were warm. Adarsh Kim MD Dec 20, 2018 15:52
[2018-12-20 16:00] VITALS: BP 117/63
--- NOTE | 2018-12-20 16:52 | Nephrology Progress Note ---
Assessment/Plan Problem List: (1) ATN (acute tubular necrosis) (2) Anemia (3) Feeding by G-tube (4) Acute and chronic respiratory failure (5) UTI (urinary tract infection) (6) Hyponatremia Assessment Patient have mainly Pre Renal Azotemia with possible underlying CKD- Low Na partly depletional, partly due to Hyperglycemia RESOLVED Other conditions as outlined: (1) Acute and chronic respiratory failure ([id number]) (2) Sepsis (3) Malnutrition and HypoAlbuminemia (4) UTI (urinary tract infection) (5) Anemia (6) Diabetes mellitus, type II (7) Colostomy care (8) Cerebral vascular disease (9) Decubitus ulcer of sacral region, stage 2 (10) Feeding by G-tube (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 Plan transfused total 2 units Kayexelate for high K given 12/17 repeat today On Starlix up dose digoxin and tenormin K and Phos supplement as needed Keep electrolytes in check Keep BS and BP in check Subjective ROS Limited/Unobtainable: Yes Objective Objective Last 24 Hour Vital Signs Date Time Temp Pulse Resp B/P (MAP) Pulse Ox O2 Delivery O2 Flow Rate FiO2 12/20/18 16:00 114 12/20/18 16:00 35 12/20/18 16:00 Mechanical Ventilator 12/20/18 16:00 100.0 115 30 117/63 (81) 97 12/20/18 14:50 115 31 35 12/20/18 14:21 101.2 12/20/18 12:36 122 32 35 12/20/18 12:00 112 12/20/18 12:00 35 12/20/18 12:00 Mechanical Ventilator 12/20/18 12:00 99.9 119 30 111/63 (79) 98 12/20/18 11:00 108 30 35 12/20/18 10:34 108 12/20/18 10:25 108 30 100 Mechanical Ventilator 35 12/20/18 10:04 108 31 99 Mechanical Ventilator 35 12/20/18 09:00 108 106/63 12/20/18 09:00 108 106/63 12/20/18 08:30 106 28 35 12/20/18 08:00 35 12/20/18 08:00 102 12/20/18 08:00 98.4 103 28 106/63 (77) 98 12/20/18 08:00 Mechanical Ventilator 12/20/18 07:15 91 24 35 12/20/18 04:42 89 26 35 12/20/18 04:00 99.7 12/20/18 04:00 35 12/20/18 04:00 Mechanical Ventilator 12/20/18 04:00 94 12/20/18 02:40 96 30 35 12/20/18 00:52 102 29 35 12/20/18 00:00 Mechanical Ventilator 12/20/18 00:00 110 12/20/18 00:00 35 12/19/18 23:44 100.7 12/19/18 22:38 107 31 35 12/19/18 22:20 109 29 100 Mechanical Ventilator 35 12/19/18 22:03 109 27 99 Mechanical Ventilator 35 12/19/18 21:34 110 103/63 12/19/18 21:18 110 29 35 12/19/18 20:00 113 12/19/18 20:00 98.4 111 29 103/63 (76) 100 12/19/18 20:00 Mechanical Ventilator 12/19/18 20:00 35 12/19/18 19:25 103 25 35 12/19/18 17:48 85 100/63 12/19/18 17:34 85 23 35 Intake and Output 12/19/18 12/20/18 19:00 07:00 Intake Total 915 ml 855 ml Output Total 1350 ml Balance 915 ml -495 ml Intake Free Water 200 ml 140 ml IV Total 55 ml 110 ml Tube Feeding 660 ml 605 ml Output Urine Total 400 ml Stool Total 950 ml Laboratory Tests 12/20/18 04:00: White Blood Count 11.5H, Red Blood Count 2.84L, Hemoglobin 8.6L, Hematocrit 27.2L, Mean Corpuscular Volume 96, Mean Corpuscular Hemoglobin 30.3, Mean Corpuscular Hemoglobin Concent 31.6L, Red Cell Distribution Width 16.1H, Platelet Count 259, Mean Platelet Volume 9.6, Neutrophils (%) (Auto) 84.1H, Lymphocytes (%) (Auto) 9.3L, Monocytes (%) (Auto) 4.6, Eosinophils (%) (Auto) 1.1, Basophils (%) (Auto) 0.9, Sodium Level 151H, Potassium Level 4.8, Chloride Level 116H, Carbon Dioxide Level 22, Anion Gap 13, Blood Urea Nitrogen 39H, Creatinine 1.0, Estimat Glomerular Filtration Rate , Glucose Level 265H, Calcium Level 9.9, Phosphorus Level 3.1, Magnesium Level 1.9, Total Bilirubin 0.2, Aspartate Amino Transf (AST/SGOT) 19, Alanine Aminotransferase (ALT/SGPT) 16, Alkaline Phosphatase 151H, Total Protein 8.0, Albumin 1.3L, Globulin 6.7, Albumin/Globulin Ratio 0.2L 12/20/18 13:30: Urine Color Pale yellow, Urine Appearance Clear, Urine pH 5, Urine Specific [place] 1.015, Urine Protein 2+H, Urine Glucose (UA) 2+H, Urine Ketones Negative , Urine Blood 1+H, Urine Nitrite Negative, Urine Bilirubin Negative, Urine Urobilinogen Normal, Urine Leukocyte Esterase 1+H, Urine RBC 0-2H, Urine WBC 2-4 , Urine Squamous Epithelial Cells Occasional, Urine Amorphous Sediment Occasional, Urine Bacteria Occasional Height (Feet): 5 Height (Inches): 8.00 Weight (Pounds): 140 General Appearance: no apparent distress Objective no change Migue Moreland MD Dec 20, 2018 16:52
--- NOTE | 2018-12-20 17:11 | NUR ---
CASE MANAGEMENT: REVIEW SI:SEPSIS. A/C RESP FAILURE. T 100 HR 115 RR 30 B/P 117/63 SATS 97% ON MECH VENT FiO2 35 WBC 11.5 NA 151 CL 116 BUN 39 GLU 265 ALP 151 IS: NOVOLOG SUBQ Q4H LOPID GT BID CARDIZEM GT BID METFORMIN PO BID DIGOXIN GT QD PREVACID GT QD NEBCIN INH Q12H STARLIX GT Q8H STEP DOWN UNIT DCP: PATIENT TO BE DISCHARGED TO SNF ONCE MEDICALLY CLEARED. PLAN OF CARE: CXR GLYCEMIC CONTROL AND MONITORING TRANSFUSE PRBCs
--- NOTE | 2018-12-20 18:27 | NUR ---
NURSE NOTES: PATIENT KEPT CLEAN AND DRY. DRESSING CHANGED. NO SIGNS OF DISTRESS. WILL CONTINUE TO MONITOR.
[2018-12-20] MEDS ORDERED: NS 275ml ONE (19:11)
[2018-12-20] MEDS ORDERED: Tubing IV Secondary IV ONE (19:11)
--- NOTE | 2018-12-20 19:12 | NUR ---
HAND-OFF: Report given to Krishna Chávez RN.
--- NOTE | 2018-12-20 19:13 | NUR ---
NURSE NOTES: Report received from Rylan Rodriguez RN. Patient seen in bed in semi rousseau position with vent , setting is portex 7, AC18 [id number], [id number]% PEEp5 with sp02 98% at this time. Patient is alert, but able to nod yes at time, non verbal. Continues on GTF of glucerna 1.2 at 55cc/hr. Patine noted with colostomy and suprapubic catheter and both is intact. Noted with PICC line to left upper arm and intact. No acute distress is noted at this time. bed is in lowest position. call light is within easy reach while in bed. Will continue to monitor.
[2018-12-20 20:00] VITALS: BP 107/58
[2018-12-20] MEDS: Dyna-Hex 2% Top Sol 2oz TOPIC SCH (20:32)
[2018-12-21] VITALS: BP 100/70
[2018-12-21] MEDS: NovoLOG Insulin Flexpen SUBQ SCH ×6 (00:23→20:54)
--- NOTE | 2018-12-21 00:54 | NUR ---
NURSE NOTES: Dr Hutchins is here at the unit, made aware of BS of 418 at 2030. Most recent BS was 258 at 0020. No new order at this time. Will continue to monitor BS.
[2018-12-21 04:00] VITALS: BP 99/68
[2018-12-21] MEDS: Acetaminophen 650mg/20.3ml GT PRN ×2 (04:06→17:22)
[2018-12-21 05:23] LABS: ALANINE AMINOTRANSFERASE 13 U/L (12-78); ALBUMIN 1.3 G/DL (3.4-5.0); ALKALINE PHOSPHATASE 135 U/L (46-116); AMYLASE 99 U/L (25-115); ANION GAP 12 mmol/L (5-15); ASPARTATE AMINO TRANSFERASE 14 U/L (15-37); BILIRUBIN,TOTAL 0.1 MG/DL (0.2-1.0); BLOOD UREA NITROGEN 44 mg/dL (7-18); CALCIUM 10.3 MG/DL (8.5-10.1); CARBON DIOXIDE 21 MMOL/L (21-32); CHLORIDE 113 MMOL/L (98-107); PHOSPHORUS 3.2 MG/DL (2.5-4.9); POTASSIUM 5.7 MMOL/L (3.5-5.1); SODIUM 146 MMOL/L (136-145)
[2018-12-21 05:34] LABS: HEMATOCRIT 26.2 % (42.0-52.0); HEMOGLOBIN 8.3 G/DL (14.2-18.0); MEAN CORPUSCULAR VOLUME 95 FL (80-99); PLATELET COUNT 265 K/UL (150-450); RED BLOOD COUNT 2.76 M/UL (4.70-6.10); RED CELL DISTRIBUTION WIDTH 15.2 % (11.6-14.8); WHITE BLOOD COUNT 12.2 K/UL (4.8-10.8)
[2018-12-21] MEDS: Aztreonam Inj 1 GM in D5W 55 ML IVPB SCH ×3 (06:07→21:50)
--- NOTE | 2018-12-21 06:34 | NUR ---
NURSE NOTES: noted with elevated K, (5.7) paged Dr gooden, currently awaiting for call back.
--- NOTE | 2018-12-21 07:00 | NUR ---
NURSE NOTES: Report given to Rylan RodriguezRN
--- NOTE | 2018-12-21 07:01 | NUR ---
NURSE NOTES: RECEIVED PATIENT FROM Krishna NEGRETE RN. PATIENT IS LYING IN BED, ASLEEP, NONVERBAL BUT ABLE TO OPEN EYES. GT IN PLACE, DRY AND INTACT. GTF RUNNING GLUCERNA 1.2 AT 45CC/HR. NOTED COLOSTOMY WITH OUTPUT AND SUPRAPUBIC CATH CONNECTED TO BAG, PATENT AND DRAINING URINE. SKIN ALTERATION NOTED. PICC LINE ON L UA WITH IVF RUNNING, TKO. CALL LIGHT WITHIN REACH. BED AT LOWEST POSITION. SIDE RAILS UP. WILL CONTINUE TO MONITOR.
[2018-12-21 08:00] VITALS: BP 97/64
[2018-12-21] MEDS ORDERED: Sodium Polystyrene Sulfonate 15gm Powder GT ONE (08:00)
[2018-12-21] MEDS: metFORMIN 500mg tab ORAL SCH ×2 (08:39→17:08)
[2018-12-21] MEDS: Atenolol 25mg tab ORAL SCH ×2 (08:40→20:52)
[2018-12-21] MEDS: Heparin 5000 units/ml inj SUBQ SCH ×2 (08:42→20:54)
[2018-12-21] MEDS: dilTIAZem HCl 30mg tab GT SCH ×2 (08:43→17:09)
--- NOTE | 2018-12-21 08:43 | NUR ---
RADIOLOGY DEPT., CHEST X-RAY DONE.-P.DYE
[2018-12-21] MEDS: Tobramycin for inhalation INH SCH ×2 (09:41→22:30)
--- NOTE | 2018-12-21 09:49 | Diagnostic Imaging Report ---
Indication: Cough, dyspnea Technique: One view of the chest Comparison: 12/17/2018 Findings: Bilateral interstitial and airspace opacities, associated bronchiectasis are again demonstrated. There is blunting of the left costophrenic sulcus again demonstrated. The heart size is normal. Tracheostomy, left arm PICC are again demonstrated. Findings are unchanged Impression: Unchanged, over one day, findings as above.
--- NOTE | 2018-12-21 10:26 | Pulmonolgy Critical Care Note ---
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 Respiratory: monitor respiratory rate, adjust FIO2, CXR Cardiac: continue to monitor HR/BP Renal: F/U I&O, keep IV fluid Infectious Disease: check cultures, continue antibiotics Gastrointestinal: continue feedings/current rate Endocrine: monitor blood sugar, continue sliding scale insulin Hematologic: monitor H/H, transfuse if hgb<8.5 Neurologic: PRN Ativan, keep patient comfortable Affect: PRN ativan Prophylaxis: Heparin 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, 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 with: nurses, consultants, 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 - Objective Last 24 Hour Vital Signs Date Time Temp Pulse Resp B/P (MAP) Pulse Ox O2 Delivery O2 Flow Rate FiO2 12/21/18 09:41 117 35 99 Mechanical Ventilator 35 12/21/18 09:29 118 35 35 12/21/18 08:43 125 97/64 12/21/18 08:40 125 97/64 12/21/18 08:40 125 12/21/18 08:00 98.2 125 38 97/64 (75) 96 12/21/18 08:00 35 12/21/18 08:00 Mechanical Ventilator 12/21/18 07:42 117 12/21/18 07:18 115 29 35 12/21/18 05:19 128 30 35 12/21/18 04:36 99.6 12/21/18 04:00 100.1 120 30 99/68 (78) 97 12/21/18 04:00 Mechanical Ventilator 12/21/18 04:00 35 12/21/18 03:25 128 12/21/18 02:49 125 31 35 12/21/18 01:00 116 30 35 12/21/18 00:00 Mechanical Ventilator 12/21/18 00:00 98.8 107 28 100/70 (80) 97 12/20/18 23:24 113 12/20/18 22:24 115 20 98 Mechanical Ventilator 35 12/20/18 22:24 112 22 35 12/20/18 22:05 118 32 98 Mechanical Ventilator 35 12/20/18 22:04 118 28 35 12/20/18 20:33 111 107/58 12/20/18 20:00 99.0 111 29 107/58 (74) 97 12/20/18 20:00 Mechanical Ventilator 12/20/18 20:00 35 12/20/18 19:48 106 27 35 12/20/18 19:03 110 12/20/18 17:18 114 117/63 12/20/18 16:50 114 32 35 12/20/18 16:00 114 12/20/18 16:00 35 12/20/18 16:00 Mechanical Ventilator 12/20/18 16:00 100.0 115 30 117/63 (81) 97 12/20/18 14:50 115 31 35 12/20/18 12:36 122 32 35 12/20/18 12:00 112 12/20/18 12:00 35 12/20/18 12:00 Mechanical Ventilator 12/20/18 12:00 99.9 119 30 111/63 (79) 98 12/20/18 11:00 108 30 35 12/20/18 10:34 108 Status: awake Condition: critical HEENT: atraumatic Neck: full ROM Lungs: chest wall tender, rales, rhonchi Heart: regular Abdomen: non-tender, active bowel sounds Extremities: no C/C/E, edema Micro: Microbiology Date/Time Source Procedure Growth Status 12/20/18 13:00 Sputum Induced Gram Stain Pending Resulted 12/20/18 13:00 Sputum Culture - Preliminary Staphylococcus Aureus Resulted Accucheck: 215 Critical Care - Subjective ROS Limited/Unobtainable: Yes Condition: critical EKG Rhythm: Sinus Rhythm FI02: 35 Vent Support Breath Rate: 18 Vent Support Mode: AC Vent Tidal Volume: 500 Sputum Amount: Small PEEP: 5.0 PIP: 30 Tube Feeding Amount: 55 I&O: Intake and Output 12/20/18 12/21/18 18:59 06:59 Intake Total 1385 ml 865 ml Output Total 1250 ml 1400 ml Balance 135 ml -535 ml Intake Free Water 60 ml 150 ml IV Total 610 ml 55 ml Tube Feeding 715 ml 660 ml Output Urine Total 400 ml 600 ml Stool Total 850 ml 800 ml CXR: no change Labs: Laboratory Tests Test 12/20/18 13:30 12/21/18 03:15 Urine Color Pale yellow Urine Appearance Clear Urine pH 5 (4.5-8.0) Urine Specific [place] 1.015 (1.005-1.035) Urine Protein 2+ (NEGATIVE) H Urine Glucose (UA) 2+ (NEGATIVE) H Urine Ketones Negative (NEGATIVE) Urine Blood 1+ (NEGATIVE) H Urine Nitrite Negative (NEGATIVE) Urine Bilirubin Negative (NEGATIVE) Urine Urobilinogen Normal MG/DL (0.0-1.0) Urine Leukocyte Esterase 1+ (NEGATIVE) H Urine RBC 0-2 /HPF (0 - 0) H Urine WBC 2-4 /HPF (0 - 0) Urine Squamous Epithelial Cells Occasional /LPF Urine Amorphous Sediment Occasional /LPF (NONE) Urine Bacteria Occasional /HPF (NONE) White Blood Count 12.2 K/UL (4.8-10.8) H Red Blood Count 2.76 M/UL (4.70-6.10) L Hemoglobin 8.3 G/DL (14.2-18.0) L Hematocrit 26.2 % (42.0-52.0) L Mean Corpuscular Volume 95 FL (80-99) Mean Corpuscular Hemoglobin 30.2 PG (27.0-31.0) Mean Corpuscular Hemoglobin Concent 31.8 G/DL (32.0-36.0) L Red Cell Distribution Width 15.2 % (11.6-14.8) H Platelet Count 265 K/UL (150-450) Mean Platelet Volume 9.5 FL (6.5-10.1) Neutrophils (%) (Auto) % (45.0-75.0) Lymphocytes (%) (Auto) % (20.0-45.0) Monocytes (%) (Auto) % (1.0-10.0) Eosinophils (%) (Auto) % (0.0-3.0) Basophils (%) (Auto) % (0.0-2.0) Erythrocyte Sedimentation Rate 126 MM/HR (0-20) H Sodium Level 146 MMOL/L (136-145) H Potassium Level 5.7 MMOL/L (3.5-5.1) H Chloride Level 113 MMOL/L (98-107) H Carbon Dioxide Level 21 MMOL/L (21-32) Anion Gap 12 mmol/L (5-15) Blood Urea Nitrogen 44 mg/dL (7-18) H Creatinine 1.0 MG/DL (0.55-1.30) Estimat Glomerular Filtration Rate mL/min (>60) Glucose Level 220 MG/DL (74-106) H Calcium Level 10.3 MG/DL (8.5-10.1) H Phosphorus Level 3.2 MG/DL (2.5-4.9) Magnesium Level 1.8 MG/DL (1.8-2.4) Total Bilirubin 0.1 MG/DL (0.2-1.0) L Aspartate Amino Transf (AST/SGOT) 14 U/L (15-37) L Alanine Aminotransferase (ALT/SGPT) 13 U/L (12-78) Alkaline Phosphatase 135 U/L (46-116) H C-Reactive Protein, Quantitative 48.3 mg/dL (0.00-0.90) H Total Protein 8.4 G/DL (6.4-8.2) H Albumin 1.3 G/DL (3.4-5.0) L Globulin 7.1 g/dL Amylase Level 99 U/L (25-115) Lipase 433 U/L (73-393) H Digoxin Level 2.1 NG/ML (0.5-2.0) H Abhishek Guerra MD Dec 21, 2018 10:26
[2018-12-21] MEDS ORDERED: Sodium Polystyrene Sulfonate 15gm Powder ORAL ONE (10:30)
--- NOTE | 2018-12-21 10:53 | GI Progress Note ---
Assessment/Plan Problems: (1) Colostomy care ICD Codes: Z43.3 - Encounter for attention to colostomy SNOMED: 926444379 (2) Anemia ICD Codes: D64.9 - Anemia, unspecified SNOMED: 568613560 (3) Feeding by G-tube ICD Codes: Z93.1 - Gastrostomy status SNOMED: 715721235, 223400002 (4) Abdominal wall cellulitis ICD Codes: L03.311 - Cellulitis of abdominal wall SNOMED: 71022755 (5) Acute pancreatitis ICD Codes: K85.90 - Acute pancreatitis without necrosis or infection, unspecified SNOMED: 983500037 (6) Pancreatitis ICD Codes: K85.90 - Acute pancreatitis without necrosis or infection, unspecified SNOMED: 34792257 Status: stable Status Narrative Discussed with Dr. Jackson Assessment/Plan Occult blood stool positive Pancreatitis fu H&H ppi daily lopid GTFs per RD replace mag tumor markers fu stool ob Trend lipase, downtrending The patient was seen and examined at bedside and all new and available data was reviewed in the patients chart. I agree with the above findings, impression and plan. (Patient seen earlier today. Signature stamp does not reflect patient encounter time.). - Benjamin Jackson MD Subjective Subjective Limited Objective Last 24 Hour Vital Signs Date Time Temp Pulse Resp B/P (MAP) Pulse Ox O2 Delivery O2 Flow Rate FiO2 12/21/18 09:41 117 35 99 Mechanical Ventilator 35 12/21/18 09:29 118 35 35 12/21/18 08:43 125 97/64 12/21/18 08:40 125 97/64 12/21/18 08:40 125 12/21/18 08:00 98.2 125 38 97/64 (75) 96 12/21/18 08:00 35 12/21/18 08:00 Mechanical Ventilator 12/21/18 07:42 117 12/21/18 07:18 115 29 35 12/21/18 05:19 128 30 35 12/21/18 04:36 99.6 12/21/18 04:00 100.1 120 30 99/68 (78) 97 12/21/18 04:00 Mechanical Ventilator 12/21/18 04:00 35 12/21/18 03:25 128 12/21/18 02:49 125 31 35 12/21/18 01:00 116 30 35 12/21/18 00:00 Mechanical Ventilator 12/21/18 00:00 98.8 107 28 100/70 (80) 97 12/20/18 23:24 113 12/20/18 22:24 115 20 98 Mechanical Ventilator 35 12/20/18 22:24 112 22 35 12/20/18 22:05 118 32 98 Mechanical Ventilator 35 12/20/18 22:04 118 28 35 12/20/18 20:33 111 107/58 12/20/18 20:00 99.0 111 29 107/58 (74) 97 12/20/18 20:00 Mechanical Ventilator 12/20/18 20:00 35 12/20/18 19:48 106 27 35 12/20/18 19:03 110 12/20/18 17:18 114 117/63 12/20/18 16:50 114 32 35 12/20/18 16:00 114 12/20/18 16:00 35 12/20/18 16:00 Mechanical Ventilator 12/20/18 16:00 100.0 115 30 117/63 (81) 97 12/20/18 14:50 115 31 35 12/20/18 12:36 122 32 35 12/20/18 12:00 112 12/20/18 12:00 35 12/20/18 12:00 Mechanical Ventilator 12/20/18 12:00 99.9 119 30 111/63 (79) 98 12/20/18 11:00 108 30 35 Intake and Output 12/20/18 12/21/18 18:59 06:59 Intake Total 1385 ml 865 ml Output Total 1250 ml 1400 ml Balance 135 ml -535 ml Intake Free Water 60 ml 150 ml IV Total 610 ml 55 ml Tube Feeding 715 ml 660 ml Output Urine Total 400 ml 600 ml Stool Total 850 ml 800 ml Laboratory Tests Test 12/20/18 13:30 12/21/18 03:15 Urine Color Pale yellow Urine Appearance Clear Urine pH 5 (4.5-8.0) Urine Specific [place] 1.015 (1.005-1.035) Urine Protein 2+ (NEGATIVE) H Urine Glucose (UA) 2+ (NEGATIVE) H Urine Ketones Negative (NEGATIVE) Urine Blood 1+ (NEGATIVE) H Urine Nitrite Negative (NEGATIVE) Urine Bilirubin Negative (NEGATIVE) Urine Urobilinogen Normal MG/DL (0.0-1.0) Urine Leukocyte Esterase 1+ (NEGATIVE) H Urine RBC 0-2 /HPF (0 - 0) H Urine WBC 2-4 /HPF (0 - 0) Urine Squamous Epithelial Cells Occasional /LPF Urine Amorphous Sediment Occasional /LPF (NONE) Urine Bacteria Occasional /HPF (NONE) White Blood Count 12.2 K/UL (4.8-10.8) H Red Blood Count 2.76 M/UL (4.70-6.10) L Hemoglobin 8.3 G/DL (14.2-18.0) L Hematocrit 26.2 % (42.0-52.0) L Mean Corpuscular Volume 95 FL (80-99) Mean Corpuscular Hemoglobin 30.2 PG (27.0-31.0) Mean Corpuscular Hemoglobin Concent 31.8 G/DL (32.0-36.0) L Red Cell Distribution Width 15.2 % (11.6-14.8) H Platelet Count 265 K/UL (150-450) Mean Platelet Volume 9.5 FL (6.5-10.1) Neutrophils (%) (Auto) % (45.0-75.0) Lymphocytes (%) (Auto) % (20.0-45.0) Monocytes (%) (Auto) % (1.0-10.0) Eosinophils (%) (Auto) % (0.0-3.0) Basophils (%) (Auto) % (0.0-2.0) Erythrocyte Sedimentation Rate 126 MM/HR (0-20) H Sodium Level 146 MMOL/L (136-145) H Potassium Level 5.7 MMOL/L (3.5-5.1) H Chloride Level 113 MMOL/L (98-107) H Carbon Dioxide Level 21 MMOL/L (21-32) Anion Gap 12 mmol/L (5-15) Blood Urea Nitrogen 44 mg/dL (7-18) H Creatinine 1.0 MG/DL (0.55-1.30) Estimat Glomerular Filtration Rate mL/min (>60) Glucose Level 220 MG/DL (74-106) H Calcium Level 10.3 MG/DL (8.5-10.1) H Phosphorus Level 3.2 MG/DL (2.5-4.9) Magnesium Level 1.8 MG/DL (1.8-2.4) Total Bilirubin 0.1 MG/DL (0.2-1.0) L Aspartate Amino Transf (AST/SGOT) 14 U/L (15-37) L Alanine Aminotransferase (ALT/SGPT) 13 U/L (12-78) Alkaline Phosphatase 135 U/L (46-116) H C-Reactive Protein, Quantitative 48.3 mg/dL (0.00-0.90) H Total Protein 8.4 G/DL (6.4-8.2) H Albumin 1.3 G/DL (3.4-5.0) L Globulin 7.1 g/dL Amylase Level 99 U/L (25-115) Lipase 433 U/L (73-393) H Digoxin Level 2.1 NG/ML (0.5-2.0) H Microbiology Date/Time Source Procedure Growth Status 12/20/18 13:00 Sputum Induced Gram Stain Pending Resulted 12/20/18 13:00 Sputum Culture - Preliminary Staphylococcus Aureus Resulted Height (Feet): 5 Height (Inches): 8.00 Weight (Pounds): 141 General Appearance: WD/WN, no apparent distress, alert Cardiovascular: normal rate Respiratory/Chest: normal breath sounds, no respiratory distress Abdominal Exam: normal bowel sounds, non tender, soft, GT site - Clean dry and intact Extremities: non-tender Cirilo Germain NP Dec 21, 2018 10:53
--- NOTE | 2018-12-21 11:38 | NUR ---
HAND-OFF: Report given to Ely Ellis RN.
--- NOTE | 2018-12-21 11:40 | NUR ---
NURSE NOTES: Received the patient from SHAKIR Fagan. Patient is awake, aox1, resting in bed. Trach, portex 7, to vent, settings: AC18, TV 500, FIO2 35%, PEEP 5. No acute distress noted. ST HR 104 noted on the monitor. Gtube intact and patent, running glucerna 1.2 at 55ml/hr. Colostomy and suprapubic cath noted, draining. Left upper arm PICC line intact and patent. wound dressings intact, clean and dry. On P200 mattress. bed in lowest position, locked, side rails upx3. call light within reach. Will continue to monitor.
[2018-12-21 12:00] VITALS: BP 105/64
--- NOTE | 2018-12-21 12:09 | General Progress Note ---
Assessment/Plan Assessment/Plan Assessment/Recs: # Leukocytosis/Elevated white blood cell count, unspecified likely related to underlying stress reaction, smoking, or underlying infection (especially if bandemia is noted) --> have reviewed peripheral smear and bandemia/neutrophilia noted --> continue antibiotics if they have been started by ID team --> monitor for resolution ---> WBC trend: 11-->16-->15-->14-->11-->12 # Anemia of chronic disease due to underlying chronic medical issues, multifactorial --> Anemia workup has been reviewed, Ferritin 1573 --> No evidence of hemolysis is noted, peripheral smear has been reviewed. --> Hgb goal >7. Transfuse prn. --> Epogen or iron at this time is not particularly indicated --> Medications have been reviewed --> HGB trend: 7.8-->7.6-->6.2-->6.4->7.1-->8.7-->9.1-->8.4 # Thrombocytopenia - potential causes multifactorial, evaluate liver and viral etiologies to begin, also could be related to underlying medications patient has received. --> Hep panel and HIV negative --> US abd to evaluate for cirrhosis and hsm reviewed --> Peripheral smear ordered to evaluate for blasts /schistocytes --> abx and other meds have been reviewed --> ok for ppx if plt >50k w/ either heparin or lovenox --> Transfuse if Plt < 20k and fever, or if Plt < 10k without fever # Severe prerenal azotemia, on ivf --> improve po oral intake and consider appetite stimulant # Hypouricemia, appreciate Pulmonary operational risk consultant # Severe Sepsis, CXR: Probable small left pleural effusion, also evident on prior study 11/22/2017. -->appreciate ID recs # [email or web address], likely from UTI The timing of this note does not necessarily reflect the time of the patient was seen. Greatly appreciate consultation! Subjective Allergies: Coded Allergies: PENICILLINS (Unverified Allergy, Unknown, 02/26/16) POLYMYXIN B (Unverified Allergy, Unknown, 02/26/16) VANCOMYCIN (Unverified Allergy, Unknown, 02/26/16) Subjective 12/11: seen by bedside, vent dependent, leukocytosis, 11, hgb 7, will transfuse, no events 12/12: awake, comfortable wbc trending up at 16, no events 12/13: hgb 6.4, receiving transfusion, , wbc remains elevated. no acute events 12/14: seen by bedside, awake, comfortable low grade fever, wbc remains elevated at 15, bacteremia on IV Abx, hgb 7.1, will transfuse as needed 12/15: Wbc remains elevated, no events reported, hgb trending up 12/16: seen by bedside, awake, comfortable, no events 12/18: seen in the room, on vent and trach, no events 12/19: reviewed cbc and appears relatively stable, on starlix, remains in sdu 12/20: seen by bedside, on vent, mild leukocytosis 12/21: Pt is resting , on vent, wbc trending up , no events Objective Last 24 Hour Vital Signs Date Time Temp Pulse Resp B/P (MAP) Pulse Ox O2 Delivery O2 Flow Rate FiO2 12/21/18 11:18 109 30 35 12/21/18 10:00 109 32 100 Mechanical Ventilator 35 12/21/18 09:41 117 35 99 Mechanical Ventilator 35 12/21/18 09:29 118 35 35 12/21/18 08:43 125 97/64 12/21/18 08:40 125 97/64 12/21/18 08:40 125 12/21/18 08:00 98.2 125 38 97/64 (75) 96 12/21/18 08:00 35 12/21/18 08:00 Mechanical Ventilator 12/21/18 07:42 117 12/21/18 07:18 115 29 35 12/21/18 05:19 128 30 35 12/21/18 04:36 99.6 12/21/18 04:00 100.1 120 30 99/68 (78) 97 12/21/18 04:00 Mechanical Ventilator 12/21/18 04:00 35 12/21/18 03:25 128 12/21/18 02:49 125 31 35 12/21/18 01:00 116 30 35 12/21/18 00:00 Mechanical Ventilator 12/21/18 00:00 98.8 107 28 100/70 (80) 97 12/20/18 23:24 113 12/20/18 22:24 115 20 98 Mechanical Ventilator 35 12/20/18 22:24 112 22 35 12/20/18 22:05 118 32 98 Mechanical Ventilator 35 12/20/18 22:04 118 28 35 12/20/18 20:33 111 107/58 12/20/18 20:00 99.0 111 29 107/58 (74) 97 12/20/18 20:00 Mechanical Ventilator 12/20/18 20:00 35 12/20/18 19:48 106 27 35 12/20/18 19:03 110 12/20/18 17:18 114 117/63 12/20/18 16:50 114 32 35 12/20/18 16:00 114 12/20/18 16:00 35 12/20/18 16:00 Mechanical Ventilator 12/20/18 16:00 100.0 115 30 117/63 (81) 97 12/20/18 14:50 115 31 35 12/20/18 12:36 122 32 35 Intake and Output 12/20/18 12/21/18 18:59 06:59 Intake Total 1385 ml 865 ml Output Total 1250 ml 1400 ml Balance 135 ml -535 ml Intake Free Water 60 ml 150 ml IV Total 610 ml 55 ml Tube Feeding 715 ml 660 ml Output Urine Total 400 ml 600 ml Stool Total 850 ml 800 ml Laboratory Tests 12/20/18 13:30: Urine Color Pale yellow, Urine Appearance Clear, Urine pH 5, Urine Specific [place] 1.015, Urine Protein 2+H, Urine Glucose (UA) 2+H, Urine Ketones Negative , Urine Blood 1+H, Urine Nitrite Negative, Urine Bilirubin Negative, Urine Urobilinogen Normal, Urine Leukocyte Esterase 1+H, Urine RBC 0-2H, Urine WBC 2-4 , Urine Squamous Epithelial Cells Occasional, Urine Amorphous Sediment Occasional, Urine Bacteria Occasional 12/21/18 03:15: White Blood Count 12.2H, Red Blood Count 2.76L, Hemoglobin 8.3L, Hematocrit 26.2L, Mean Corpuscular Volume 95, Mean Corpuscular Hemoglobin 30.2, Mean Corpuscular Hemoglobin Concent 31.8L, Red Cell Distribution Width 15.2H, Platelet Count 265, Mean Platelet Volume 9.5, Neutrophils (%) (Auto) , Lymphocytes (%) (Auto) , Monocytes (%) (Auto) , Eosinophils (%) (Auto) , Basophils (%) (Auto) , Erythrocyte Sedimentation Rate 126H, Sodium Level 146H, Potassium Level 5.7H, Chloride Level 113H, Carbon Dioxide Level 21, Anion Gap 12 , Blood Urea Nitrogen 44H, Creatinine 1.0, Estimat Glomerular Filtration Rate , Glucose Level 220H, Calcium Level 10.3H, Phosphorus Level 3.2, Magnesium Level 1.8, Total Bilirubin 0.1L, Aspartate Amino Transf (AST/SGOT) 14L, Alanine Aminotransferase (ALT/SGPT) 13, Alkaline Phosphatase 135H, C-Reactive Protein, Quantitative 48.3H, Total Protein 8.4H, Albumin 1.3L, Globulin 7.1, Amylase Level 99, Lipase 433H, Digoxin Level 2.1H Height (Feet): 5 Height (Inches): 8.00 Weight (Pounds): 141 Objective Physical Exam HEENT: Eyes were normal. ENT, mucous membranes were not dehydrated. NECK: Supple. There was no goiter. No mass. No lymphadenopathy. There was no JVD. No bruits. Carotid upstroke was 2+. LUNGS: Clear. Vent++ HEART: PMI was in the fifth left intercostal space in midclavicular line. There was normal S1 and normal S2. There was no murmur. No arrhythmia. No S3. No S4. No pericardial rub. ABDOMEN: Soft and nontender without organomegaly. There were no masses palpable. Normal bowel sounds without bruits. There was no guarding. No rebound tenderness. No ascites. No hernia. No CVA tenderness. Liver span was 8 cm, mostly nontender. EXTREMITIES: No cyanosis, no clubbing, and no edema. Extremities were warm. Adarsh Kim MD Dec 21, 2018 12:09
--- NOTE | 2018-12-21 12:11 | Nephrology Progress Note ---
Assessment/Plan Problem List: (1) ATN (acute tubular necrosis) (2) Anemia (3) Feeding by G-tube (4) Acute and chronic respiratory failure (5) UTI (urinary tract infection) (6) Hyponatremia Assessment Patient have mainly Pre Renal Azotemia with possible underlying CKD- Low Na partly depletional, partly due to Hyperglycemia RESOLVED Other conditions as outlined: (1) Acute and chronic respiratory failure ([id number]) (2) Sepsis (3) Malnutrition and HypoAlbuminemia (4) UTI (urinary tract infection) (5) Anemia (6) Diabetes mellitus, type II (7) Colostomy care (8) Cerebral vascular disease (9) Decubitus ulcer of sacral region, stage 2 (10) Feeding by G-tube (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 2 units Kayexelate for high K given 12/17 repeat today On Starlix up dose digoxin and tenormin K and Phos supplement as needed Keep electrolytes in check Keep BS and BP in check Objective Objective Last 24 Hour Vital Signs Date Time Temp Pulse Resp B/P (MAP) Pulse Ox O2 Delivery O2 Flow Rate FiO2 12/21/18 11:18 109 30 35 12/21/18 10:00 109 32 100 Mechanical Ventilator 35 12/21/18 09:41 117 35 99 Mechanical Ventilator 35 12/21/18 09:29 118 35 35 12/21/18 08:43 125 97/64 12/21/18 08:40 125 97/64 12/21/18 08:40 125 12/21/18 08:00 98.2 125 38 97/64 (75) 96 12/21/18 08:00 35 12/21/18 08:00 Mechanical Ventilator 12/21/18 07:42 117 12/21/18 07:18 115 29 35 12/21/18 05:19 128 30 35 12/21/18 04:36 99.6 12/21/18 04:00 100.1 120 30 99/68 (78) 97 12/21/18 04:00 Mechanical Ventilator 12/21/18 04:00 35 12/21/18 03:25 128 12/21/18 02:49 125 31 35 12/21/18 01:00 116 30 35 12/21/18 00:00 Mechanical Ventilator 12/21/18 00:00 98.8 107 28 100/70 (80) 97 12/20/18 23:24 113 12/20/18 22:24 115 20 98 Mechanical Ventilator 35 12/20/18 22:24 112 22 35 12/20/18 22:05 118 32 98 Mechanical Ventilator 35 12/20/18 22:04 118 28 35 12/20/18 20:33 111 107/58 12/20/18 20:00 99.0 111 29 107/58 (74) 97 12/20/18 20:00 Mechanical Ventilator 12/20/18 20:00 35 12/20/18 19:48 106 27 35 12/20/18 19:03 110 12/20/18 17:18 114 117/63 12/20/18 16:50 114 32 35 12/20/18 16:00 114 12/20/18 16:00 35 12/20/18 16:00 Mechanical Ventilator 12/20/18 16:00 100.0 115 30 117/63 (81) 97 12/20/18 14:50 115 31 35 12/20/18 12:36 122 32 35 Intake and Output 12/20/18 12/21/18 18:59 06:59 Intake Total 1385 ml 865 ml Output Total 1250 ml 1400 ml Balance 135 ml -535 ml Intake Free Water 60 ml 150 ml IV Total 610 ml 55 ml Tube Feeding 715 ml 660 ml Output Urine Total 400 ml 600 ml Stool Total 850 ml 800 ml Laboratory Tests 12/20/18 13:30: Urine Color Pale yellow, Urine Appearance Clear, Urine pH 5, Urine Specific [place] 1.015, Urine Protein 2+H, Urine Glucose (UA) 2+H, Urine Ketones Negative , Urine Blood 1+H, Urine Nitrite Negative, Urine Bilirubin Negative, Urine Urobilinogen Normal, Urine Leukocyte Esterase 1+H, Urine RBC 0-2H, Urine WBC 2-4 , Urine Squamous Epithelial Cells Occasional, Urine Amorphous Sediment Occasional, Urine Bacteria Occasional 12/21/18 03:15: White Blood Count 12.2H, Red Blood Count 2.76L, Hemoglobin 8.3L, Hematocrit 26.2L, Mean Corpuscular Volume 95, Mean Corpuscular Hemoglobin 30.2, Mean Corpuscular Hemoglobin Concent 31.8L, Red Cell Distribution Width 15.2H, Platelet Count 265, Mean Platelet Volume 9.5, Neutrophils (%) (Auto) , Lymphocytes (%) (Auto) , Monocytes (%) (Auto) , Eosinophils (%) (Auto) , Basophils (%) (Auto) , Erythrocyte Sedimentation Rate 126H, Sodium Level 146H, Potassium Level 5.7H, Chloride Level 113H, Carbon Dioxide Level 21, Anion Gap 12 , Blood Urea Nitrogen 44H, Creatinine 1.0, Estimat Glomerular Filtration Rate , Glucose Level 220H, Calcium Level 10.3H, Phosphorus Level 3.2, Magnesium Level 1.8, Total Bilirubin 0.1L, Aspartate Amino Transf (AST/SGOT) 14L, Alanine Aminotransferase (ALT/SGPT) 13, Alkaline Phosphatase 135H, C-Reactive Protein, Quantitative 48.3H, Total Protein 8.4H, Albumin 1.3L, Globulin 7.1, Amylase Level 99, Lipase 433H, Digoxin Level 2.1H Height (Feet): 5 Height (Inches): 8.00 Weight (Pounds): 141 Objective no change Migue Moreland MD Dec 21, 2018 12:11
--- NOTE | 2018-12-21 13:02 | Infectious Diseases Prog Note ---
Assessment/Plan Assessment/Plan Assessment: Severe Sepsis 2ry to GNR -12/21 CXR: Bilateral interstitial and airspace opacities, associated bronchiectasis are again demonstrated. There is blunting of the left costophrenic sulcus again demonstrated. -12/17 CXR: No significant interval change in the diffuse patchy bilateral reticular interstitial and airspace opacities. -CXR: Probable small left pleural effusion, also evident on prior study 2017. Bilateral interstitial disease, unchanged, suspect chronic. Correlate with clinical findings -sp CX MDR PsA (S Gentamicin, AMikacin, Cefepime, Aztreonam, Tobramycin); repeats sp cx 12/20 S. aureus (sensis p); likely colonzier as vent settings stable GNR bacteremia, likely from UTI -CT abd/p: Findings consistent with uncomplicated nonnecrotizing acute pancreatitis. No evidence of associated peripancreatic abscess Surgical changes as described, including right lower quadrant ileostomy, subtotal colectomy with Haroldo procedure. Wall thickening of the Haroldo pouch. This could indicate inflammation. However, this is also present on both of the prior 2 exams and may be baseline for this patien. Evidence of mild anasarca, with edema of the subcutaneous fat. This is a new finding. Chronic appearing decubitus changes of the bilateral ischia. Correlate with clinical findings. Complete left lower lobe consolidation. This is similar to both of the prior CTs, andis likely a chronic finding. There is progressive chronic interstitial fibrotic change involving the right middle lobe. There is also right lower lobe granulomatous calcification, Extensive pulmonary parenchymal opacities bilaterally may reflect acute inflammation/infection, edema, progressive chronic scarring, orcombination of the above. These are considerably more extensive than on the prior study -u/a 10-15, nit neg, luek +3; ucx 50-60k Enterococcus (Vanco resist; S AMp), 40-50 K Proteus -12/07 Bcx 3/ Proteus; 12/08 Bcx / Proteus (S Aztreonam; R Cipro, levo; I Imipenem); 12/12 BCx p Acute pancreatitis -lipase ~1k Fever - recurrent- in the setting of bacteremia and pancreaitis; improving Leukocytosis , mild recurrent-in the setting of bacteremia, UTI and acute pancreatitis CONS bacteremia- likely contaminant -12/12 Bcx 1/4 CONS; 12/14 Bcx Neg Hyponatremia, improving MAULIK, improving dysphagia s/p peg COPD GBS quadriplegia chronic resp failure s/p trach HTN CVA, nonverbal anemia SNF resident Plan: -Continue Aztreonam #13/ for Proteus UTi and bacteremia -Add INH tobramycin #/ for MDR PsA in sputum -if worsening respiratory status add Linezolid -12/16 SP IV Daptomycin #7 -f/u Repeat cultures -Monitor CBC/CMP, temperatures -PEG/Trach care -Aspiration precautions -management of acute pancreatitis per primary team. Will continue to follow along with you. Subjective Allergies: Coded Allergies: PENICILLINS (Unverified Allergy, Unknown, 02/26/16) POLYMYXIN B (Unverified Allergy, Unknown, 02/26/16) VANCOMYCIN (Unverified Allergy, Unknown, 02/26/16) Subjective Tm 100.1 leukocytosis mild recurrent vent settings stable Objective Vital Signs Last 24 Hour Vital Signs Date Time Temp Pulse Resp B/P (MAP) Pulse Ox O2 Delivery O2 Flow Rate FiO2 12/21/18 12:00 35 12/21/18 12:00 Mechanical Ventilator 12/21/18 12:00 99.5 104 34 105/64 (78) 99 12/21/18 12:00 102 12/21/18 11:18 109 30 35 12/21/18 10:00 109 32 100 Mechanical Ventilator 35 12/21/18 09:41 117 35 99 Mechanical Ventilator 35 12/21/18 09:29 118 35 35 12/21/18 08:43 125 97/64 12/21/18 08:40 125 97/64 12/21/18 08:40 125 12/21/18 08:00 98.2 125 38 97/64 (75) 96 12/21/18 08:00 35 12/21/18 08:00 Mechanical Ventilator 12/21/18 07:42 117 12/21/18 07:18 115 29 35 12/21/18 05:19 128 30 35 12/21/18 04:36 99.6 12/21/18 04:00 100.1 120 30 99/68 (78) 97 12/21/18 04:00 Mechanical Ventilator 12/21/18 04:00 35 12/21/18 03:25 128 12/21/18 02:49 125 31 35 12/21/18 01:00 116 30 35 12/21/18 00:00 Mechanical Ventilator 12/21/18 00:00 98.8 107 28 100/70 (80) 97 12/20/18 23:24 113 12/20/18 22:24 115 20 98 Mechanical Ventilator 35 12/20/18 22:24 112 22 35 12/20/18 22:05 118 32 98 Mechanical Ventilator 35 12/20/18 22:04 118 28 35 12/20/18 20:33 111 107/58 12/20/18 20:00 99.0 111 29 107/58 (74) 97 12/20/18 20:00 Mechanical Ventilator 12/20/18 20:00 35 12/20/18 19:48 106 27 35 12/20/18 19:03 110 12/20/18 17:18 114 117/63 12/20/18 16:50 114 32 35 12/20/18 16:00 114 12/20/18 16:00 35 12/20/18 16:00 Mechanical Ventilator 12/20/18 16:00 100.0 115 30 117/63 (81) 97 12/20/18 14:50 115 31 35 Height (Feet): 5 Height (Inches): 8.00 Weight (Pounds): 141 Objective HEENT: Eyes were normal. ENT, mucous membranes were not dehydrated. NECK: Supple. There was no goiter. No mass. No lymphadenopathy. There was no JVD. No bruits. Carotid upstroke was 2+. LUNGS: Clear. HEART: PMI was in the fifth left intercostal space in midclavicular line. There was normal S1 and normal S2. There was no murmur. No arrhythmia. No S3. No S4. No pericardial rub. ABDOMEN: Soft and nontender without organomegaly. There were no masses palpable. Normal bowel sounds without bruits. There was no guarding. No rebound tenderness. No ascites. No hernia. No CVA tenderness. EXTREMITIES: No cyanosis, no clubbing, and no edema. Extremities were warm. Microbiology Date/Time Source Procedure Growth Status 12/20/18 13:00 Sputum Induced Gram Stain Pending Resulted 12/20/18 13:00 Sputum Culture - Preliminary Staphylococcus Aureus Resulted Laboratory Tests Test 12/20/18 13:30 12/21/18 03:15 Urine Color Pale yellow Urine Appearance Clear Urine pH 5 (4.5-8.0) Urine Specific [place] 1.015 (1.005-1.035) Urine Protein 2+ (NEGATIVE) H Urine Glucose (UA) 2+ (NEGATIVE) H Urine Ketones Negative (NEGATIVE) Urine Blood 1+ (NEGATIVE) H Urine Nitrite Negative (NEGATIVE) Urine Bilirubin Negative (NEGATIVE) Urine Urobilinogen Normal MG/DL (0.0-1.0) Urine Leukocyte Esterase 1+ (NEGATIVE) H Urine RBC 0-2 /HPF (0 - 0) H Urine WBC 2-4 /HPF (0 - 0) Urine Squamous Epithelial Cells Occasional /LPF Urine Amorphous Sediment Occasional /LPF (NONE) Urine Bacteria Occasional /HPF (NONE) White Blood Count 12.2 K/UL (4.8-10.8) H Red Blood Count 2.76 M/UL (4.70-6.10) L Hemoglobin 8.3 G/DL (14.2-18.0) L Hematocrit 26.2 % (42.0-52.0) L Mean Corpuscular Volume 95 FL (80-99) Mean Corpuscular Hemoglobin 30.2 PG (27.0-31.0) Mean Corpuscular Hemoglobin Concent 31.8 G/DL (32.0-36.0) L Red Cell Distribution Width 15.2 % (11.6-14.8) H Platelet Count 265 K/UL (150-450) Mean Platelet Volume 9.5 FL (6.5-10.1) Neutrophils (%) (Auto) % (45.0-75.0) Lymphocytes (%) (Auto) % (20.0-45.0) Monocytes (%) (Auto) % (1.0-10.0) Eosinophils (%) (Auto) % (0.0-3.0) Basophils (%) (Auto) % (0.0-2.0) Erythrocyte Sedimentation Rate 126 MM/HR (0-20) H Sodium Level 146 MMOL/L (136-145) H Potassium Level 5.7 MMOL/L (3.5-5.1) H Chloride Level 113 MMOL/L (98-107) H Carbon Dioxide Level 21 MMOL/L (21-32) Anion Gap 12 mmol/L (5-15) Blood Urea Nitrogen 44 mg/dL (7-18) H Creatinine 1.0 MG/DL (0.55-1.30) Estimat Glomerular Filtration Rate mL/min (>60) Glucose Level 220 MG/DL (74-106) H Calcium Level 10.3 MG/DL (8.5-10.1) H Phosphorus Level 3.2 MG/DL (2.5-4.9) Magnesium Level 1.8 MG/DL (1.8-2.4) Total Bilirubin 0.1 MG/DL (0.2-1.0) L Aspartate Amino Transf (AST/SGOT) 14 U/L (15-37) L Alanine Aminotransferase (ALT/SGPT) 13 U/L (12-78) Alkaline Phosphatase 135 U/L (46-116) H C-Reactive Protein, Quantitative 48.3 mg/dL (0.00-0.90) H Total Protein 8.4 G/DL (6.4-8.2) H Albumin 1.3 G/DL (3.4-5.0) L Globulin 7.1 g/dL Amylase Level 99 U/L (25-115) Lipase 433 U/L (73-393) H Digoxin Level 2.1 NG/ML (0.5-2.0) H Current Medications Medications (Trade) Dose Ordered Sig/Fransisco Route PRN Reason Start Time Stop Time Status Last Admin Dose Admin Acetaminophen (Tylenol) 650 mg Q4H PRN GT For Pain 12/07/18 17:00 01/06/19 16:59 12/21/18 04:06 Acetaminophen (Tylenol) 650 mg Q4H PRN GT fever 12/10/18 09:45 01/06/19 16:59 12/18/18 12:44 Atenolol (Tenormin) 25 mg Q12HR ORAL 12/12/18 21:00 01/11/19 20:59 12/21/18 08:40 Aztreonam 1 gm/ Dextrose 55 ml @ 110 mls/hr Q8HR IVPB 12/09/18 15:00 12/22/18 23:59 12/21/18 06:07 Chlorhexidine Gluconate (Sandra-Hex 2%) 1 applic DAILY@2000 TOPIC 12/10/18 20:00 01/09/19 19:59 12/20/18 20:32 Dextrose (Dextrose 50%) 25 ml Q30M PRN IV Hypoglycemia 12/10/18 14:00 01/09/19 13:59 Dextrose (Dextrose 50%) 50 ml Q30M PRN IV Hypoglycemia 12/10/18 14:00 01/09/19 13:59 Digoxin (Lanoxin) 0.25 mg DAILY GT 12/12/18 09:00 01/10/19 08:59 12/21/18 08:40 Diltiazem HCl (Cardizem) 10 mg BIDPRN PRN IVP FOR HR >140 12/12/18 08:45 01/11/19 08:44 Diltiazem HCl (Cardizem) 30 mg BID GT 12/11/18 18:00 01/10/19 17:59 12/19/18 17:48 Gemfibrozil (Lopid) 600 mg TWICE A DAY GT 12/15/18 10:15 01/14/19 10:14 12/21/18 08:39 Heparin Sodium (Porcine) (Heparin 5000 units/ml) 5,000 units EVERY 12 HOURS SUBQ 12/07/18 21:00 01/06/19 20:59 12/21/18 08:42 Insulin Aspart (NovoLOG) EVERY 4 HOURS SUBQ 12/12/18 05:00 01/09/19 04:59 12/21/18 08:58 Lansoprazole (Prevacid) 30 mg DAILY GT 12/17/18 09:00 01/16/19 08:59 12/21/18 08:39 Metformin HCl (Glucophage) 500 mg BID ORAL 12/18/18 09:00 01/17/19 08:59 12/21/18 08:39 Nateglinide (Starlix) 120 mg Q8HR ORAL 12/18/18 22:00 01/17/19 21:59 12/21/18 06:07 Nitroglycerin (Ntg) 0.4 mg Q5M PRN SL Prn Chest Pain 12/07/18 17:00 01/06/19 16:59 Ondansetron HCl (Zofran) 4 mg Q6H PRN IVP Nausea & Vomiting 12/07/18 17:00 01/06/19 16:59 Polyethylene Glycol (Miralax) 17 gm DAILYPRN PRN GT Constipation 12/10/18 09:45 4/5/19 16:59 Tobramycin Sulfate (Nebcin) 300 mg Q12HR@10,22 INH 12/15/18 10:30 12/22/18 10:29 12/21/18 09:41 Aminah Champagne M.D. Dec 21, 2018 13:02
--- NOTE | 2018-12-21 13:30 | Progress Note ---
DATE: 12/20/2018 SUBJECTIVE: The patient is awake, alert, lethargic . PHYSICAL EXAMINATION: VITAL SIGNS: Blood pressure is 100/70s, pulse is 115, respirations were 20, and temperature is 98.8. HEENT: Eyes were normal. ENT, mucous membranes were moist and intact. NECK: Supple with no JVD without lymph nodes. Tracheostomy site is clean. LUNGS: Clear without rhonchi, rales, or wheezing. Secretions are small, thin, and mcclure. HEART: Normal sounds with regular beats. No S3, S4, or pericardial rub. ABDOMEN: Soft and nontender with normal bowel sounds. Gastrostomy site is clean. EXTREMITIES: Warm without cyanosis, clubbing, or edema. LABORATORY AND DIAGNOSTIC DATA: Hemoglobin is 8.6, hematocrit 27.2 with MCV of 96, WBC of 11.5, and platelets are 259. His BUN and creatinine are 39 and 1.0 respectively. His sodium is 151, potassium 4.8, chloride 116, and CO2 is 22. Calcium is 9.2 and phosphorus is 3.1 and magnesium is 1.9. Albumin is 1.3 and total protein is 8. Culture from 12/14/2018 shows no growth after 5 days. IMPRESSION: The patient is on daptomycin for gram-negative bacteria and also on aztreonam for Proteus mirabilis, UTI, and positive gram-negative bacteria as well. The patient has inhalations of tobramycin for Pseudomonas aeruginosa. His BUN and creatinine dramatically improved. however today his blood sugar was above 400 and required insulin intervention to bring the patient's blood sugar down today is 212. The patient has multiple chronic medical syndromes which appear to be stable. Repeat laboratory tests will be done in the a.m. Neema Hutchins M.D. DR: PIERCE JOB#: [id number] CC:
--- NOTE | 2018-12-21 13:52 | NUR ---
NURSE NOTES:WOUND CARE FOLLOW-UP NOTES:Full thickness pressure injury sacrum resolving. Less depth noted to tunnel, but base of wound obscured due to size and shape of wound (L)2cm x (W)0.9cm with tunneling at 12 by 3cm. Full thickness wound R ischium with 60% loose soft necrosis. 40% slough with additional necrosis along edges and periwound .No odor noted. (L)6cm x (W)6.3cm x (D)3.2cm undermining 9-12 by 3.1cm @11O'Clock. MASD with Gross erythema with skin erosion entire buttocks extending down into both ischial and both upper thighs including scrotum and bilat groin areas. Scattered satellite lesions with small amt bleeding from these areas. Small area of dry eschar noted to L buttocks (L)1.9cm x (W)2cm. Reabsorbed DTPI with stable dry brown eschar R heel (L)1.5cm x (W)2.5cm Periwound without erythema ,induration or fluctuance. Small dry scab noted to L ear without erythema periwound. No new skin concerns noted. Tx. Plan:Continue current wound care orders and wound prevention protocols. Air Fluidized mattress.
--- NOTE | 2018-12-21 14:00 | NUR ---
NURSE NOTES: Patient asleep, resting in bed comfortably. No acute distress noted.
--- NOTE | 2018-12-21 14:05 | Surgery Progress Note ---
Surgery Progress Note Subjective Additional Comments no acute events. exam unchanged. wound with some slothing off necrotic tissue that was easily removed. wound base still clean. labs noted. respiratory stable. Objective Last 24 Hour Vital Signs Date Time Temp Pulse Resp B/P (MAP) Pulse Ox O2 Delivery O2 Flow Rate FiO2 12/21/18 13:03 99 35 35 12/21/18 12:00 35 12/21/18 12:00 Mechanical Ventilator 12/21/18 12:00 99.5 104 34 105/64 (78) 99 12/21/18 12:00 102 12/21/18 11:18 109 30 35 12/21/18 10:00 109 32 100 Mechanical Ventilator 35 12/21/18 09:41 117 35 99 Mechanical Ventilator 35 12/21/18 09:29 118 35 35 12/21/18 08:43 125 97/64 12/21/18 08:40 125 97/64 12/21/18 08:40 125 12/21/18 08:00 98.2 125 38 97/64 (75) 96 12/21/18 08:00 35 12/21/18 08:00 Mechanical Ventilator 12/21/18 07:42 117 12/21/18 07:18 115 29 35 12/21/18 05:19 128 30 35 12/21/18 04:36 99.6 12/21/18 04:00 100.1 120 30 99/68 (78) 97 12/21/18 04:00 Mechanical Ventilator 12/21/18 04:00 35 12/21/18 03:25 128 12/21/18 02:49 125 31 35 12/21/18 01:00 116 30 35 12/21/18 00:00 Mechanical Ventilator 12/21/18 00:00 98.8 107 28 100/70 (80) 97 12/20/18 23:24 113 12/20/18 22:24 115 20 98 Mechanical Ventilator 35 12/20/18 22:24 112 22 35 12/20/18 22:05 118 32 98 Mechanical Ventilator 35 12/20/18 22:04 118 28 35 12/20/18 20:33 111 107/58 12/20/18 20:00 99.0 111 29 107/58 (74) 97 12/20/18 20:00 Mechanical Ventilator 12/20/18 20:00 35 12/20/18 19:48 106 27 35 12/20/18 19:03 110 12/20/18 17:18 114 117/63 12/20/18 16:50 114 32 35 12/20/18 16:00 114 12/20/18 16:00 35 12/20/18 16:00 Mechanical Ventilator 12/20/18 16:00 100.0 115 30 117/63 (81) 97 12/20/18 14:50 115 31 35 I&O Intake and Output 12/20/18 12/21/18 18:59 06:59 Intake Total 1385 ml 865 ml Output Total 1250 ml 1400 ml Balance 135 ml -535 ml Intake Free Water 60 ml 150 ml IV Total 610 ml 55 ml Tube Feeding 715 ml 660 ml Output Urine Total 400 ml 600 ml Stool Total 850 ml 800 ml Dressing: saturated Wound: other Drains: other Cardiovascular: RSR Respiratory: decreased breath sounds Abdomen: soft, present bowel sounds, non-distended Extremities: no cyanosis Laboratory Tests Test 12/21/18 03:15 White Blood Count 12.2 K/UL (4.8-10.8) H Red Blood Count 2.76 M/UL (4.70-6.10) L Hemoglobin 8.3 G/DL (14.2-18.0) L Hematocrit 26.2 % (42.0-52.0) L Mean Corpuscular Volume 95 FL (80-99) Mean Corpuscular Hemoglobin 30.2 PG (27.0-31.0) Mean Corpuscular Hemoglobin Concent 31.8 G/DL (32.0-36.0) L Red Cell Distribution Width 15.2 % (11.6-14.8) H Platelet Count 265 K/UL (150-450) Mean Platelet Volume 9.5 FL (6.5-10.1) Neutrophils (%) (Auto) % (45.0-75.0) Lymphocytes (%) (Auto) % (20.0-45.0) Monocytes (%) (Auto) % (1.0-10.0) Eosinophils (%) (Auto) % (0.0-3.0) Basophils (%) (Auto) % (0.0-2.0) Erythrocyte Sedimentation Rate 126 MM/HR (0-20) H Sodium Level 146 MMOL/L (136-145) H Potassium Level 5.7 MMOL/L (3.5-5.1) H Chloride Level 113 MMOL/L (98-107) H Carbon Dioxide Level 21 MMOL/L (21-32) Anion Gap 12 mmol/L (5-15) Blood Urea Nitrogen 44 mg/dL (7-18) H Creatinine 1.0 MG/DL (0.55-1.30) Estimat Glomerular Filtration Rate mL/min (>60) Glucose Level 220 MG/DL (74-106) H Calcium Level 10.3 MG/DL (8.5-10.1) H Phosphorus Level 3.2 MG/DL (2.5-4.9) Magnesium Level 1.8 MG/DL (1.8-2.4) Total Bilirubin 0.1 MG/DL (0.2-1.0) L Aspartate Amino Transf (AST/SGOT) 14 U/L (15-37) L Alanine Aminotransferase (ALT/SGPT) 13 U/L (12-78) Alkaline Phosphatase 135 U/L (46-116) H C-Reactive Protein, Quantitative 48.3 mg/dL (0.00-0.90) H Total Protein 8.4 G/DL (6.4-8.2) H Albumin 1.3 G/DL (3.4-5.0) L Globulin 7.1 g/dL Amylase Level 99 U/L (25-115) Lipase 433 U/L (73-393) H Digoxin Level 2.1 NG/ML (0.5-2.0) H Plan Problems: (1) Decubitus skin ulcer Assessment & Plan: Pt presented on admission with multiple pressure injuries and Skin erosion. Pt has trach and no evidence of skin breakdown noted under trach collar. Unstageable pressure injury noted to L earlobe. Stable dry brown eschar noted(L) 0.7cm x (W)0.5cm. Gross erythema with denudement and multiple scattered partial thickness wounds noted to buttocks and base of scrotum extending into both posterior upper thighs.Moderate amt sanguineous exudate noted upon removal of drsgs. 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 Moderate amt sanguineous exudate noted (L)3cm x (W)1cm x (D)7.4cm.Erythema periwound secondary to skin erosions. Partially opened DTPI L ischium .Base of wound purple,fluctuant with red borders.Open areas at base of this wound are beefy red in colour.Moderate amt sanguineous exudate noted.(L)7cm x (W)6.8cm. DTPI R ischium.Wound is fluctuant-purple in center with surrounding Maroon colour, and is partially opened with a small area of 5% that is necrotic.(L) 6.5cm x (W)5.5cm. Red skin erosion periwound. Partial thickness pressure injury L hip. Base of wound is moist -viable. Edges adherent and dry. Periwound without erythema or induration(L)1.2cm x (W)0.5cm. Elongate partial thickness wound posterior upper L thigh .Base of wound is moist -viable .Small amt sanguineous exudate noted. (+) maceration along borders. Erythema without induration or elevation in skin temp noted.(L)2cm x (W )9.4cm. DTPI noted to R heel .Base of injury is indurated and maroon in colour. Periwound is firm without erythema. (L)1.5cm x (W)1cm.R heel without evidence of skin breakdown. Tx.Plan: Cleanse Sacrum with Saline. Loosely pack with Hydrogel impregnated Kerlix. Apply Triad Paste periwound. Cover with ABD pad. Daily and prn. Cleanse R and L ischial wounds with Saline. Apply Moisture Barrier Paste.Cover with abd pads Daily and prn. Apply Moisture Barrier to skin erosions on buttocks,scrotum, and posterior aspects of both thighs.Cover with ABD pad daily and prn. Cleanse wound L hip with Saline. Apply Moisture Barrier paste .Cover with Optifoam drsg Daily and prn. Cleanse wound posterior upper L thigh with saline .Apply Hydrogel. Cover with Optifoam drsg Daily and prn. Apply Cavilon Skin Barrier to L earlobe daily. Please monitor. Apply Cavilon Skin Barrier to L heel. Cover with Optifoam drsg. Change every 7 days and prn. Apply Cavilon Skin Barrier to R heel. Cover with Optifoam drsg .Change every 7 days and prn. Air fluidized mattress. Reposition every 2hours or as tolerated. Off-load heels with pillow. (2) Acute and chronic respiratory failure Assessment & Plan: cont with breathing treatments trach stable trach site clean will change dressings daily (3) Acute pancreatitis Assessment & Plan: Findings consistent with uncomplicated nonnecrotizing acute pancreatitis. No evidence of associated peripancreatic abscess Surgical changes as described, including right lower quadrant ileostomy, subtotal colectomy with Haroldo procedure. Wall thickening of the Haroldo pouch. This could indicate inflammation. However, this is also present on both of the prior 2 exams and may be baseline for this patient Evidence of mild anasarca, with edema of the subcutaneous fat. This is a new finding Chronic appearing decubitus changes of the bilateral ischia. Correlate with clinical findings Complete left lower lobe consolidation. This is similar to both of the prior CTs , and is likely a chronic finding. There is progressive chronic interstitial fibrotic change involving the right middle lobe. There is also right lower lobe granulomatous calcification Extensive pulmonary parenchymal opacities bilaterally may reflect acute inflammation/infection, edema, progressive chronic scarring, or combination of the above. These are considerably more extensive than on the prior study Trace bilateral pleural fluid New finding of nonobstructive right renal collecting system calculs 4 mm calculus within the bladder lumen. This may represent a bladder calculus, a calculus and left ureteral orifice, or recently passed stone. If either of the latter, no evidence of resultant hydronephrosis or hydroureter Suprapubic catheter. This is a new finding since the 2016 exams. Interim removal of previously demonstrated Bledsoe catheter Gastrostomy Left renal cysts. Subcentimeter low-attenuation right renal lesions, too small to characterize, most likely benign simple cysts. No further follow-up necessary elevated amylase/lipase trending down leukocytosis GNR Bacteremia transfused anemia Unfortunately patient not able to participate in exam and difficult to identify if clinically pancreatitis or just laboratory data. Recent CT with uncomplicated pancreatitis but enzymes still remain elevated. Patient tolerated tube feeds. Patient with gram-negative belle bacteremia likely from UTI. Patient remains febrile intermittently with worsening leukocytosis on IV antibiotics. -no acute surgical intervention planned -transfuse as per hematology -Abx as per ID -trend lip/brit[place] - recent finding based on CT given patient cannot given history or participate in exam. CT with uncomplicated pancreatitis. okay for diet / feeds for now. IV fluids Javier Ricardo Dec 21, 2018 14:05
[2018-12-21 16:00] VITALS: BP 94/55
--- NOTE | 2018-12-21 16:27 | Nephrology Progress Note ---
Assessment/Plan Problem List: (1) ATN (acute tubular necrosis) (2) Anemia (3) Feeding by G-tube (4) Acute and chronic respiratory failure (5) UTI (urinary tract infection) (6) Hyponatremia Assessment Patient have mainly Pre Renal Azotemia with possible underlying CKD- Low Na partly depletional, partly due to Hyperglycemia RESOLVED Other conditions as outlined: (1) Acute and chronic respiratory failure (dvfgz-dr-hliwgim) (2) Sepsis (3) Malnutrition and HypoAlbuminemia (4) UTI (urinary tract infection) (5) Anemia (6) Diabetes mellitus, type II (7) Colostomy care (8) Cerebral vascular disease (9) Decubitus ulcer of sacral region, stage 2 (10) Feeding by G-tube (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 Plan transfused total 2 units Kayexelate for high K given 12/17 repeat today On Starlix up dose digoxin and tenormin K and Phos supplement as needed Keep electrolytes in check Keep BS and BP in check Subjective ROS Limited/Unobtainable: Yes Objective Objective Last 24 Hour Vital Signs Date Time Temp Pulse Resp B/P (MAP) Pulse Ox O2 Delivery O2 Flow Rate FiO2 12/21/18 16:00 35 12/21/18 16:00 Mechanical Ventilator 12/21/18 15:17 106 32 35 12/21/18 13:03 99 35 35 12/21/18 12:00 35 12/21/18 12:00 Mechanical Ventilator 12/21/18 12:00 99.5 104 34 105/64 (78) 99 12/21/18 12:00 102 12/21/18 11:18 109 30 35 12/21/18 10:00 109 32 100 Mechanical Ventilator 35 12/21/18 09:41 117 35 99 Mechanical Ventilator 35 12/21/18 09:29 118 35 35 12/21/18 08:43 125 97/64 12/21/18 08:40 125 97/64 12/21/18 08:40 125 12/21/18 08:00 98.2 125 38 97/64 (75) 96 12/21/18 08:00 35 12/21/18 08:00 Mechanical Ventilator 12/21/18 07:42 117 12/21/18 07:18 115 29 35 12/21/18 05:19 128 30 35 12/21/18 04:36 99.6 12/21/18 04:00 100.1 120 30 99/68 (78) 97 12/21/18 04:00 Mechanical Ventilator 12/21/18 04:00 35 12/21/18 03:25 128 12/21/18 02:49 125 31 35 12/21/18 01:00 116 30 35 12/21/18 00:00 Mechanical Ventilator 12/21/18 00:00 98.8 107 28 100/70 (80) 97 12/20/18 23:24 113 12/20/18 22:24 115 20 98 Mechanical Ventilator 35 12/20/18 22:24 112 22 35 12/20/18 22:05 118 32 98 Mechanical Ventilator 35 12/20/18 22:04 118 28 35 12/20/18 20:33 111 107/58 12/20/18 20:00 99.0 111 29 107/58 (74) 97 12/20/18 20:00 Mechanical Ventilator 12/20/18 20:00 35 12/20/18 19:48 106 27 35 12/20/18 19:03 110 12/20/18 17:18 114 117/63 12/20/18 16:50 114 32 35 Intake and Output 12/20/18 12/21/18 19:00 07:00 Intake Total 1385 ml 865 ml Output Total 1250 ml 1400 ml Balance 135 ml -535 ml Intake Free Water 60 ml 150 ml IV Total 610 ml 55 ml Tube Feeding 715 ml 660 ml Output Urine Total 400 ml 600 ml Stool Total 850 ml 800 ml Laboratory Tests 12/21/18 03:15: White Blood Count 12.2H, Red Blood Count 2.76L, Hemoglobin 8.3L, Hematocrit 26.2L, Mean Corpuscular Volume 95, Mean Corpuscular Hemoglobin 30.2, Mean Corpuscular Hemoglobin Concent 31.8L, Red Cell Distribution Width 15.2H, Platelet Count 265, Mean Platelet Volume 9.5, Neutrophils (%) (Auto) , Lymphocytes (%) (Auto) , Monocytes (%) (Auto) , Eosinophils (%) (Auto) , Basophils (%) (Auto) , Erythrocyte Sedimentation Rate 126H, Sodium Level 146H, Potassium Level 5.7H, Chloride Level 113H, Carbon Dioxide Level 21, Anion Gap 12 , Blood Urea Nitrogen 44H, Creatinine 1.0, Estimat Glomerular Filtration Rate , Glucose Level 220H, Calcium Level 10.3H, Phosphorus Level 3.2, Magnesium Level 1.8, Total Bilirubin 0.1L, Aspartate Amino Transf (AST/SGOT) 14L, Alanine Aminotransferase (ALT/SGPT) 13, Alkaline Phosphatase 135H, C-Reactive Protein, Quantitative 48.3H, Total Protein 8.4H, Albumin 1.3L, Globulin 7.1, Amylase Level 99, Lipase 433H, Digoxin Level 2.1H Height (Feet): 5 Height (Inches): 8.00 Weight (Pounds): 141 Objective no change Migue Moreland MD Dec 21, 2018 16:27
--- NOTE | 2018-12-21 19:17 | NUR ---
HAND-OFF: Report given to SHAKIR Live. Patient in stable condition.
--- NOTE | 2018-12-21 19:17 | NUR ---
NURSE NOTES: Received report from Tiffany Curtis RN. Patient is awake in bed. Saturating well on trach-vent settings: Portex 7, AC 18, vT 500, FiO2 35%, PEEP 5. Receiving Glucerna 1.2 @ 55 cc/hr via GT and tolerating well. Colostomy bag intact. Suprapubic urinary catheter intact, asymptomatic and draining well to gravity. Left upper arm PICC line TKO, intact and patent. Bed locked in lowest position with side rails up x3. Call light left within reach. Will continue to monitor.
--- NOTE | 2018-12-21 19:19 | Cardiology Progress Note ---
Assessment/Plan Assessment/Plan 1. Supraventricular tachycardia. recurrent 12/09 and 12/10 2. Renal insufficiency. 3. Hyponatremia. 4. 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 6. History of bowel resection. 7. History of CVA. 8. Chronic tracheostomy. 9. Diabetes mellitus. 10 pancreatitis 11. anemai bp borderline cortisol was normal on low dose Cardizem via gtube and dig and atenolol dig level 0.9 on 12/16 no further svt on the present regimen heart rate stable tele looks ok Subjective ROS Limited/Unobtainable: Yes Subjective on the vent Objective Last 24 Hour Vital Signs Date Time Temp Pulse Resp B/P (MAP) Pulse Ox O2 Delivery O2 Flow Rate FiO2 12/21/18 17:58 99.8 12/21/18 17:09 106 99/57 12/21/18 17:00 107 38 35 12/21/18 16:00 99.5 106 32 94/55 (68) 97 12/21/18 16:00 35 12/21/18 16:00 106 12/21/18 16:00 Mechanical Ventilator 12/21/18 15:17 106 32 35 12/21/18 13:03 99 35 35 12/21/18 12:00 35 12/21/18 12:00 Mechanical Ventilator 12/21/18 12:00 99.5 104 34 105/64 (78) 99 12/21/18 12:00 102 12/21/18 11:18 109 30 35 12/21/18 10:00 109 32 100 Mechanical Ventilator 35 12/21/18 09:41 117 35 99 Mechanical Ventilator 35 12/21/18 09:29 118 35 35 12/21/18 08:43 125 97/64 12/21/18 08:40 125 97/64 12/21/18 08:40 125 12/21/18 08:00 98.2 125 38 97/64 (75) 96 12/21/18 08:00 35 12/21/18 08:00 Mechanical Ventilator 12/21/18 07:42 117 12/21/18 07:18 115 29 35 12/21/18 05:19 128 30 35 12/21/18 04:36 99.6 12/21/18 04:00 100.1 120 30 99/68 (78) 97 12/21/18 04:00 Mechanical Ventilator 12/21/18 04:00 35 12/21/18 03:25 128 12/21/18 02:49 125 31 35 12/21/18 01:00 116 30 35 12/21/18 00:00 Mechanical Ventilator 12/21/18 00:00 98.8 107 28 100/70 (80) 97 12/20/18 23:24 113 12/20/18 22:24 115 20 98 Mechanical Ventilator 35 12/20/18 22:24 112 22 35 12/20/18 22:05 118 32 98 Mechanical Ventilator 35 12/20/18 22:04 118 28 35 12/20/18 20:33 111 107/58 12/20/18 20:00 99.0 111 29 107/58 (74) 97 12/20/18 20:00 Mechanical Ventilator 12/20/18 20:00 35 12/20/18 19:48 106 27 35 General Appearance: no apparent distress, on vent, patient on isolation Intake and Output 12/20/18 12/21/18 19:00 07:00 Intake Total 1385 ml 865 ml Output Total 1250 ml 1400 ml Balance 135 ml -535 ml Intake Free Water 60 ml 150 ml IV Total 610 ml 55 ml Tube Feeding 715 ml 660 ml Output Urine Total 400 ml 600 ml Stool Total 850 ml 800 ml Laboratory Tests Test 12/21/18 03:15 White Blood Count 12.2 K/UL (4.8-10.8) H Red Blood Count 2.76 M/UL (4.70-6.10) L Hemoglobin 8.3 G/DL (14.2-18.0) L Hematocrit 26.2 % (42.0-52.0) L Mean Corpuscular Volume 95 FL (80-99) Mean Corpuscular Hemoglobin 30.2 PG (27.0-31.0) Mean Corpuscular Hemoglobin Concent 31.8 G/DL (32.0-36.0) L Red Cell Distribution Width 15.2 % (11.6-14.8) H Platelet Count 265 K/UL (150-450) Mean Platelet Volume 9.5 FL (6.5-10.1) Neutrophils (%) (Auto) % (45.0-75.0) Lymphocytes (%) (Auto) % (20.0-45.0) Monocytes (%) (Auto) % (1.0-10.0) Eosinophils (%) (Auto) % (0.0-3.0) Basophils (%) (Auto) % (0.0-2.0) Erythrocyte Sedimentation Rate 126 MM/HR (0-20) H Sodium Level 146 MMOL/L (136-145) H Potassium Level 5.7 MMOL/L (3.5-5.1) H Chloride Level 113 MMOL/L (98-107) H Carbon Dioxide Level 21 MMOL/L (21-32) Anion Gap 12 mmol/L (5-15) Blood Urea Nitrogen 44 mg/dL (7-18) H Creatinine 1.0 MG/DL (0.55-1.30) Estimat Glomerular Filtration Rate mL/min (>60) Glucose Level 220 MG/DL (74-106) H Calcium Level 10.3 MG/DL (8.5-10.1) H Phosphorus Level 3.2 MG/DL (2.5-4.9) Magnesium Level 1.8 MG/DL (1.8-2.4) Total Bilirubin 0.1 MG/DL (0.2-1.0) L Aspartate Amino Transf (AST/SGOT) 14 U/L (15-37) L Alanine Aminotransferase (ALT/SGPT) 13 U/L (12-78) Alkaline Phosphatase 135 U/L (46-116) H C-Reactive Protein, Quantitative 48.3 mg/dL (0.00-0.90) H Total Protein 8.4 G/DL (6.4-8.2) H Albumin 1.3 G/DL (3.4-5.0) L Globulin 7.1 g/dL Amylase Level 99 U/L (25-115) Lipase 433 U/L (73-393) H Digoxin Level 2.1 NG/ML (0.5-2.0) H Microbiology Date/Time Source Procedure Growth Status 12/20/18 12:15 Blood Blood Culture - Preliminary Resulted 12/20/18 13:00 Sputum Induced Gram Stain - Final Resulted 12/20/18 13:00 Sputum Culture - Preliminary Staphylococcus Aureus Resulted Donny Kelley MD Dec 21, 2018 19:19
--- NOTE | 2018-12-21 19:22 | NUR ---
RESPIRATORY NOTE: Received pt on AC 18, 500VT, 35%, PEEP +5. Pt trach-dependent w/ a cuffed, Portex 7 tube. Pt obtunded, minimal response. B/S kaylynn. rhonchi, sxn small amounts of thick, pale-yellow secretions. Vent plugged into red outlet, ambubag & spare trach kit at bedside. Pt in no apparent distress at this time. Will continue plan of care.
[2018-12-21 20:00] VITALS: BP 116/58
[2018-12-21] MEDS: Dyna-Hex 2% Top Sol 2oz TOPIC SCH (20:46)
[2018-12-22] VITALS (7 sets, daily range): BP systolic 91–114; BP diastolic 53–68
[2018-12-22] MEDS: NovoLOG Insulin Flexpen SUBQ SCH ×6 (00:57→20:42)
[2018-12-22 05:24] LABS: BASOPHILS % (AUTO) 0.9 % (0.0-2.0); EOSINOPHILS % (AUTO) 0.9 % (0.0-3.0); HEMATOCRIT 26.5 % (42.0-52.0); HEMOGLOBIN 8.4 G/DL (14.2-18.0); MEAN CORPUSCULAR VOLUME 95 FL (80-99); MONOCYTES % (AUTO) 3.6 % (1.0-10.0); NEUTROPHILS % (AUTO) 83.5 % (45.0-75.0); PLATELET COUNT 267 K/UL (150-450); RED BLOOD COUNT 2.79 M/UL (4.70-6.10); RED CELL DISTRIBUTION WIDTH 15.3 % (11.6-14.8); WHITE BLOOD COUNT 10.8 K/UL (4.8-10.8)
[2018-12-22] MEDS: Aztreonam Inj 1 GM in D5W 55 ML IVPB SCH ×3 (05:25→21:07)
[2018-12-22 05:50] LABS: ALANINE AMINOTRANSFERASE 10 U/L (12-78); ALBUMIN 1.2 G/DL (3.4-5.0); ALBUMIN/GLOBULIN RATIO 0.2 (1.0-2.7); ALKALINE PHOSPHATASE 143 U/L (46-116); ANION GAP 13 mmol/L (5-15); ASPARTATE AMINO TRANSFERASE 14 U/L (15-37); BILIRUBIN,TOTAL 0.2 MG/DL (0.2-1.0); BLOOD UREA NITROGEN 60 mg/dL (7-18); CALCIUM 10.7 MG/DL (8.5-10.1); CARBON DIOXIDE 22 MMOL/L (21-32); CHLORIDE 113 MMOL/L (98-107); CREATININE 1.2 MG/DL (0.55-1.30); PHOSPHORUS 4.1 MG/DL (2.5-4.9); POTASSIUM 5.2 MMOL/L (3.5-5.1); SODIUM 148 MMOL/L (136-145)
--- NOTE | 2018-12-22 07:39 | NUR ---
HAND-OFF: Report given to Marion García RN.
--- NOTE | 2018-12-22 07:39 | NUR ---
NURSE NOTES: Received report SHAKIR Eldridge ,patient on ventilator,head elevated,aspiration precaution,low air loss mattress for skin protection,on G tube feeding 55 ml/hr,colostomy to bag liquid stool,suprapubic catheter,
[2018-12-22] MEDS: metFORMIN 500mg tab ORAL SCH ×2 (09:03→17:31)
[2018-12-22] MEDS: Heparin 5000 units/ml inj SUBQ SCH ×2 (09:06→20:44)
[2018-12-22] MEDS: Tobramycin for inhalation INH SCH (09:37)
--- NOTE | 2018-12-22 09:58 | NUR ---
RD ASSESSMENT & RECOMMENDATIONS SEE CARE ACTIVITY FOR COMPLETE ASSESSMENT DAILY ESTIMATED NEEDS: Needs based on critical care, wound/ 63kg 22-30 kcals/kg 1774-7224 total kcals 1.5-2 g protein/kg 94-126 g total protein 25-30 mL/kg 7767-6786 total fluid mLs NUTRITION DIAGNOSIS: 1) Increased kcal and protein needs r/t wound healing as evidenced by pt w/ multiple advanced wounds, including Unstageable wound at L earlobe. 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 3) Altered nutrition related lab values r/t clinical status as evidenced by hyperglycemia (BG 247 220), elev K (5.2, 5.7), elev Na (148), elev BUN (60) trending back up. CURRENT TF:Glucerna 1.2 @55ml/hr x24 hrs + PS x2 ENTERAL NUTRITION RECOMMENDATIONS: Nepro @ 40ml/hr x 24 hrs + Prosource 1pkt BID to provide 960ml, 1728kcal, 78g +22g prot, 698ml free water - Rec TF change to Nepro: will provide 1649mg less K than current TF - Initiate Nepro @ 20ml/hr x 6 hrs, advance 10ml q 4-6 hrs as tolerated to goal. - Add Prosource 1pkt BID for protein needs - Keep HOB >30degrees - Rec to increase water flushes: Rec 150ml q 4hrs ADDITIONAL RECOMMENDATIONS: * REcalibrate bed scale wt for accurate CBW * Monitor K closely- Rec TF change to Nepro (See above) * Wound care: add MITCHELL BID + Vit C 500mg QD * Monitor BGs closely, consider endo consult for improved BG control . . Addendum: 12/22/18 at [address] [addendum] discussed w/ RN who is concerned about TF changing from Glu 1.2 -> Nepro due to elev BGs, last POC glu 354. Because of consistently elev K, its is recommended to change TF NEPRO but DECREASE rate for carb control while increasing protein supplements to ensure protein needs are met. Nepro @ 35ml/hr will provide 135g CHO (previous TF on Glucerna 1.2 @ 55 provided 151g CHO) RECOMMEND: NEPRO @ 35ML/HR X 24 HRS + PROSOURCE 1PKT TID TO PROVIDE 840ml, 1512kcalL, 68g+ 33g prot (101g prot total), 610ml free water
--- NOTE | 2018-12-22 11:00 | GI Progress Note ---
Assessment/Plan Problems: (1) Colostomy care ICD Codes: Z43.3 - Encounter for attention to colostomy SNOMED: 660292362 (2) Anemia ICD Codes: D64.9 - Anemia, unspecified SNOMED: 511856383 (3) Feeding by G-tube ICD Codes: Z93.1 - Gastrostomy status SNOMED: 481247722, 812616815 (4) Abdominal wall cellulitis ICD Codes: L03.311 - Cellulitis of abdominal wall SNOMED: 14785940 (5) Acute pancreatitis ICD Codes: K85.90 - Acute pancreatitis without necrosis or infection, unspecified SNOMED: 404845453 (6) Pancreatitis ICD Codes: K85.90 - Acute pancreatitis without necrosis or infection, unspecified SNOMED: 45052198 Status: stable, unchanged Status Narrative Discussed with Dr. Jackson Assessment/Plan Occult blood stool positive Hepatitis panel negative Stable H&H PRN transfusions ppi daily lopid GTFs per RD tumor markers fu stool ob Trend lipase, downtrending The patient was seen and examined at bedside and all new and available data was reviewed in the patients chart. I agree with the above findings, impression and plan. (Patient seen earlier today. Signature stamp does not reflect patient encounter time.). - Benjamin Jackson MD Subjective Subjective Limited Objective Last 24 Hour Vital Signs Date Time Temp Pulse Resp B/P (MAP) Pulse Ox O2 Delivery O2 Flow Rate FiO2 12/22/18 09:45 82 26 100 Mechanical Ventilator 35 12/22/18 09:36 83 28 100 Mechanical Ventilator 35 12/22/18 09:17 81 30 35 12/22/18 09:11 79 97/64 (75) 12/22/18 09:03 78 12/22/18 08:30 99.5 78 24 91/53 (66) 97 12/22/18 07:17 75 31 35 12/22/18 05:11 75 30 35 12/22/18 04:00 35 12/22/18 04:00 Mechanical Ventilator 12/22/18 04:00 98.1 74 28 114/68 (83) 100 12/22/18 03:46 76 12/22/18 03:12 74 25 35 12/22/18 00:50 69 26 35 12/22/18 00:00 Mechanical Ventilator 12/22/18 00:00 97.7 73 25 105/63 (77) 99 12/21/18 23:29 74 12/21/18 22:45 76 21 100 Mechanical Ventilator 35 12/21/18 22:32 81 24 35 12/21/18 22:30 81 24 97 Mechanical Ventilator 35 12/21/18 20:52 89 116/58 12/21/18 20:36 88 29 35 12/21/18 20:00 Mechanical Ventilator 12/21/18 20:00 99.3 86 29 116/58 (77) 97 12/21/18 20:00 35 12/21/18 19:32 93 12/21/18 19:20 92 29 35 12/21/18 17:58 99.8 12/21/18 17:09 106 99/57 12/21/18 17:00 107 38 35 12/21/18 16:00 99.5 106 32 94/55 (68) 97 12/21/18 16:00 35 12/21/18 16:00 106 12/21/18 16:00 Mechanical Ventilator 12/21/18 15:17 106 32 35 12/21/18 13:03 99 35 35 12/21/18 12:00 35 12/21/18 12:00 Mechanical Ventilator 12/21/18 12:00 99.5 104 34 105/64 (78) 99 12/21/18 12:00 102 12/21/18 11:18 109 30 35 Intake and Output 12/21/18 12/22/18 19:00 07:00 Intake Total 1025 ml 895 ml Output Total 1150 ml 1050 ml Balance -125 ml -155 ml Intake Free Water 200 ml 180 ml IV Total 165 ml 110 ml Tube Feeding 660 ml 605 ml Output Urine Total 400 ml 250 ml Stool Total 750 ml 800 ml Laboratory Tests Test 12/22/18 04:00 White Blood Count 10.8 K/UL (4.8-10.8) Red Blood Count 2.79 M/UL (4.70-6.10) L Hemoglobin 8.4 G/DL (14.2-18.0) L Hematocrit 26.5 % (42.0-52.0) L Mean Corpuscular Volume 95 FL (80-99) Mean Corpuscular Hemoglobin 30.3 PG (27.0-31.0) Mean Corpuscular Hemoglobin Concent 31.9 G/DL (32.0-36.0) L Red Cell Distribution Width 15.3 % (11.6-14.8) H Platelet Count 267 K/UL (150-450) Mean Platelet Volume 9.0 FL (6.5-10.1) Neutrophils (%) (Auto) 83.5 % (45.0-75.0) H Lymphocytes (%) (Auto) 11.0 % (20.0-45.0) L Monocytes (%) (Auto) 3.6 % (1.0-10.0) Eosinophils (%) (Auto) 0.9 % (0.0-3.0) Basophils (%) (Auto) 0.9 % (0.0-2.0) Sodium Level 148 MMOL/L (136-145) H Potassium Level 5.2 MMOL/L (3.5-5.1) H Chloride Level 113 MMOL/L (98-107) H Carbon Dioxide Level 22 MMOL/L (21-32) Anion Gap 13 mmol/L (5-15) Blood Urea Nitrogen 60 mg/dL (7-18) H Creatinine 1.2 MG/DL (0.55-1.30) Estimat Glomerular Filtration Rate mL/min (>60) Glucose Level 247 MG/DL (74-106) H Calcium Level 10.7 MG/DL (8.5-10.1) H Phosphorus Level 4.1 MG/DL (2.5-4.9) Magnesium Level 1.8 MG/DL (1.8-2.4) Total Bilirubin 0.2 MG/DL (0.2-1.0) Aspartate Amino Transf (AST/SGOT) 14 U/L (15-37) L Alanine Aminotransferase (ALT/SGPT) 10 U/L (12-78) L Alkaline Phosphatase 143 U/L (46-116) H Total Protein 8.1 G/DL (6.4-8.2) Albumin 1.2 G/DL (3.4-5.0) L Globulin 6.9 g/dL Albumin/Globulin Ratio 0.2 (1.0-2.7) L Height (Feet): 5 Height (Inches): 8.00 Weight (Pounds): 141 General Appearance: no apparent distress, thin Cardiovascular: normal rate Respiratory/Chest: normal breath sounds, no respiratory distress Abdominal Exam: normal bowel sounds, non tender, soft, GT site - Clean dry and intact, other - Ileostomy present Extremities: non-tender Cirilo Germain NP Dec 22, 2018 11:00
--- NOTE | 2018-12-22 11:17 | Pulmonolgy Critical Care Note ---
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 Respiratory: monitor respiratory rate, adjust FIO2, CXR Cardiac: start pressors, continue pressors, continue to monitor HR/BP Renal: F/U I&O, keep IV fluid, check electrolytes Infectious Disease: check cultures Gastrointestinal: continue feedings/current rate Endocrine: monitor blood sugar, check HgA1C Hematologic: transfuse if hgb<8.5 Neurologic: PRN Ativan, PRN Morphine, keep patient comfortable Prophylaxis: Heparin Disposition: keep in ICU Time Spent (Minutes): 40 Notes 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, 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, 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 with: nurses, 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, 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 - Objective Last 24 Hour Vital Signs Date Time Temp Pulse Resp B/P (MAP) Pulse Ox O2 Delivery O2 Flow Rate FiO2 12/22/18 10:59 80 27 35 12/22/18 09:45 82 26 100 Mechanical Ventilator 35 12/22/18 09:36 83 28 100 Mechanical Ventilator 35 12/22/18 09:17 81 30 35 12/22/18 09:11 79 97/64 (75) 12/22/18 09:03 78 12/22/18 08:30 99.5 78 24 91/53 (66) 97 12/22/18 07:17 75 31 35 12/22/18 05:11 75 30 35 12/22/18 04:00 35 12/22/18 04:00 Mechanical Ventilator 12/22/18 04:00 98.1 74 28 114/68 (83) 100 12/22/18 03:46 76 12/22/18 03:12 74 25 35 12/22/18 00:50 69 26 35 12/22/18 00:00 Mechanical Ventilator 12/22/18 00:00 97.7 73 25 105/63 (77) 99 12/21/18 23:29 74 12/21/18 22:45 76 21 100 Mechanical Ventilator 35 12/21/18 22:32 81 24 35 12/21/18 22:30 81 24 97 Mechanical Ventilator 35 12/21/18 20:52 89 116/58 12/21/18 20:36 88 29 35 12/21/18 20:00 Mechanical Ventilator 12/21/18 20:00 99.3 86 29 116/58 (77) 97 12/21/18 20:00 35 12/21/18 19:32 93 12/21/18 19:20 92 29 35 12/21/18 17:58 99.8 12/21/18 17:09 106 99/57 12/21/18 17:00 107 38 35 12/21/18 16:00 99.5 106 32 94/55 (68) 97 12/21/18 16:00 35 12/21/18 16:00 106 12/21/18 16:00 Mechanical Ventilator 12/21/18 15:17 106 32 35 12/21/18 13:03 99 35 35 12/21/18 12:00 35 12/21/18 12:00 Mechanical Ventilator 12/21/18 12:00 99.5 104 34 105/64 (78) 99 12/21/18 12:00 102 12/21/18 11:18 109 30 35 Status: somnolent Condition: critical HEENT: atraumatic Neck: full ROM Lungs: chest wall tender Heart: HR/BP unstable Abdomen: soft, active bowel sounds Extremities: no C/C/E, edema Decubiti: location Micro: Microbiology Date/Time Source Procedure Growth Status 12/20/18 12:25 Blood Blood Culture - Preliminary NO GROWTH AFTER 24 HOURS Resulted 12/20/18 12:15 Blood Blood Culture - Preliminary Streptococcus Species Resulted 12/20/18 04:00 Blood Blood Culture - Preliminary NO GROWTH AFTER 24 HOURS Resulted 12/20/18 13:00 Sputum Induced Gram Stain - Final Complete 12/20/18 13:00 Sputum Culture - Final Staphylococcus Aureus - Mrsa Usual Respiratory Shelly Complete Accucheck: 260 Critical Care - Subjective Interval Events: still low grade fever and leukocytosis FI02: 35 Vent Support Breath Rate: 18 Vent Support Mode: AC Vent Tidal Volume: 500 Sputum Amount: Small PEEP: 5.0 PIP: 34 Tube Feeding Amount: 55 I&O: Intake and Output 12/21/18 12/22/18 18:59 06:59 Intake Total 1025 ml 950 ml Output Total 1150 ml 1050 ml Balance -125 ml -100 ml Intake Free Water 200 ml 180 ml IV Total 165 ml 110 ml Tube Feeding 660 ml 660 ml Output Urine Total 400 ml 250 ml Stool Total 750 ml 800 ml CXR: no changes, trach in good position Labs: Laboratory Tests Test 12/22/18 04:00 White Blood Count 10.8 K/UL (4.8-10.8) Red Blood Count 2.79 M/UL (4.70-6.10) L Hemoglobin 8.4 G/DL (14.2-18.0) L Hematocrit 26.5 % (42.0-52.0) L Mean Corpuscular Volume 95 FL (80-99) Mean Corpuscular Hemoglobin 30.3 PG (27.0-31.0) Mean Corpuscular Hemoglobin Concent 31.9 G/DL (32.0-36.0) L Red Cell Distribution Width 15.3 % (11.6-14.8) H Platelet Count 267 K/UL (150-450) Mean Platelet Volume 9.0 FL (6.5-10.1) Neutrophils (%) (Auto) 83.5 % (45.0-75.0) H Lymphocytes (%) (Auto) 11.0 % (20.0-45.0) L Monocytes (%) (Auto) 3.6 % (1.0-10.0) Eosinophils (%) (Auto) 0.9 % (0.0-3.0) Basophils (%) (Auto) 0.9 % (0.0-2.0) Sodium Level 148 MMOL/L (136-145) H Potassium Level 5.2 MMOL/L (3.5-5.1) H Chloride Level 113 MMOL/L (98-107) H Carbon Dioxide Level 22 MMOL/L (21-32) Anion Gap 13 mmol/L (5-15) Blood Urea Nitrogen 60 mg/dL (7-18) H Creatinine 1.2 MG/DL (0.55-1.30) Estimat Glomerular Filtration Rate mL/min (>60) Glucose Level 247 MG/DL (74-106) H Calcium Level 10.7 MG/DL (8.5-10.1) H Phosphorus Level 4.1 MG/DL (2.5-4.9) Magnesium Level 1.8 MG/DL (1.8-2.4) Total Bilirubin 0.2 MG/DL (0.2-1.0) Aspartate Amino Transf (AST/SGOT) 14 U/L (15-37) L Alanine Aminotransferase (ALT/SGPT) 10 U/L (12-78) L Alkaline Phosphatase 143 U/L (46-116) H Total Protein 8.1 G/DL (6.4-8.2) Albumin 1.2 G/DL (3.4-5.0) L Globulin 6.9 g/dL Albumin/Globulin Ratio 0.2 (1.0-2.7) L Abhishek Guerra MD Dec 22, 2018 11:17
--- NOTE | 2018-12-22 12:14 | Infectious Diseases Prog Note ---
Assessment/Plan Assessment/Plan Assessment: Severe Sepsis 2ry to GNR -12/21 CXR: Bilateral interstitial and airspace opacities, associated bronchiectasis are again demonstrated. There is blunting of the left costophrenic sulcus again demonstrated. -12/17 CXR: No significant interval change in the diffuse patchy bilateral reticular interstitial and airspace opacities. -CXR: Probable small left pleural effusion, also evident on prior study 2017. Bilateral interstitial disease, unchanged, suspect chronic. Correlate with clinical findings -sp CX MDR PsA (S Gentamicin, AMikacin, Cefepime, Aztreonam, Tobramycin); repeats sp cx 12/20 MRSA; likely colonzier as vent settings stable GNR bacteremia, likely from UTI -CT abd/p: Findings consistent with uncomplicated nonnecrotizing acute pancreatitis. No evidence of associated peripancreatic abscess Surgical changes as described, including right lower quadrant ileostomy, subtotal colectomy with Haroldo procedure. Wall thickening of the Haroldo pouch. This could indicate inflammation. However, this is also present on both of the prior 2 exams and may be baseline for this patien. Evidence of mild anasarca, with edema of the subcutaneous fat. This is a new finding. Chronic appearing decubitus changes of the bilateral ischia. Correlate with clinical findings. Complete left lower lobe consolidation. This is similar to both of the prior CTs, andis likely a chronic finding. There is progressive chronic interstitial fibrotic change involving the right middle lobe. There is also right lower lobe granulomatous calcification, Extensive pulmonary parenchymal opacities bilaterally may reflect acute inflammation/infection, edema, progressive chronic scarring, orcombination of the above. These are considerably more extensive than on the prior study -u/a 10-15, nit neg, luek +3; ucx 50-60k Enterococcus (Vanco resist; S AMp), 40-50 K Proteus -12/07 Bcx 12/05 Proteus; 12/08 Bcx / Proteus (S Aztreonam; R Cipro, levo; I Imipenem); 12/12 BCx p Strep bacteremia- r/o VRE- ?PICC line infection -12/20 1/2 Strep sp PICC line; Peripheral NTD Acute pancreatitis -lipase ~1k Fever - recurrent- in the setting of bacteremia and pancreaitis; improving Leukocytosis , resolved--in the setting of bacteremia, UTI and acute pancreatitis CONS bacteremia- likely contaminant -12/12 Bcx 1/ CONS; 12/14 Bcx Neg Hyponatremia, improving MAULIK, improving dysphagia s/p peg COPD GBS quadriplegia chronic resp failure s/p trach HTN CVA, nonverbal anemia SNF resident Plan: -Continue Aztreonam #14/14 for Proteus UTi and bacteremia -Linezolid #2 pending ID strep bacteremia -12/21 SP INH tobramycin #7 -12/16 SP IV Daptomycin #7 -f/u Repeat cultures -may need PICC line removal pending ID Bcx and repeat Bcx -Monitor CBC/CMP, temperatures -PEG/Trach care -Aspiration precautions -management of acute pancreatitis per primary team. Will continue to follow along with you. Subjective Allergies: Coded Allergies: PENICILLINS (Unverified Allergy, Unknown, 02/26/16) POLYMYXIN B (Unverified Allergy, Unknown, 02/26/16) VANCOMYCIN (Unverified Allergy, Unknown, 02/26/16) Subjective afebrile > 24hrs leukocytosis resolved vent settings stable Objective Vital Signs Last 24 Hour Vital Signs Date Time Temp Pulse Resp B/P (MAP) Pulse Ox O2 Delivery O2 Flow Rate FiO2 12/22/18 10:59 80 27 35 12/22/18 09:45 82 26 100 Mechanical Ventilator 35 12/22/18 09:36 83 28 100 Mechanical Ventilator 35 12/22/18 09:17 81 30 35 12/22/18 09:11 79 97/64 (75) 12/22/18 09:03 78 12/22/18 08:30 99.5 78 24 91/53 (66) 97 12/22/18 08:30 Mechanical Ventilator 12/22/18 08:00 35 12/22/18 07:35 79 12/22/18 07:17 75 31 35 12/22/18 05:11 75 30 35 12/22/18 04:00 35 12/22/18 04:00 Mechanical Ventilator 12/22/18 04:00 98.1 74 28 114/68 (83) 100 12/22/18 03:46 76 12/22/18 03:12 74 25 35 12/22/18 00:50 69 26 35 12/22/18 00:00 Mechanical Ventilator 12/22/18 00:00 97.7 73 25 105/63 (77) 99 12/21/18 23:29 74 12/21/18 22:45 76 21 100 Mechanical Ventilator 35 12/21/18 22:32 81 24 35 12/21/18 22:30 81 24 97 Mechanical Ventilator 35 12/21/18 20:52 89 116/58 12/21/18 20:36 88 29 35 12/21/18 20:00 Mechanical Ventilator 12/21/18 20:00 99.3 86 29 116/58 (77) 97 12/21/18 20:00 35 12/21/18 19:32 93 12/21/18 19:20 92 29 35 12/21/18 17:58 99.8 12/21/18 17:09 106 99/57 12/21/18 17:00 107 38 35 12/21/18 16:00 99.5 106 32 94/55 (68) 97 12/21/18 16:00 35 12/21/18 16:00 106 12/21/18 16:00 Mechanical Ventilator 12/21/18 15:17 106 32 35 12/21/18 13:03 99 35 35 Height (Feet): 5 Height (Inches): 8.00 Weight (Pounds): 141 Objective HEENT: Eyes were normal. ENT, mucous membranes were not dehydrated. NECK: Supple. There was no goiter. No mass. No lymphadenopathy. There was no JVD. No bruits. Carotid upstroke was 2+. LUNGS: Clear. HEART: PMI was in the fifth left intercostal space in midclavicular line. There was normal S1 and normal S2. There was no murmur. No arrhythmia. No S3. No S4. No pericardial rub. ABDOMEN: Soft and nontender without organomegaly. There were no masses palpable. Normal bowel sounds without bruits. There was no guarding. No rebound tenderness. No ascites. No hernia. No CVA tenderness. EXTREMITIES: No cyanosis, no clubbing, and no edema. Extremities were warm. Microbiology Date/Time Source Procedure Growth Status 12/20/18 12:25 Blood Blood Culture - Preliminary NO GROWTH AFTER 24 HOURS Resulted 12/20/18 12:15 Blood Blood Culture - Preliminary Streptococcus Species Resulted 12/20/18 04:00 Blood Blood Culture - Preliminary NO GROWTH AFTER 24 HOURS Resulted 12/20/18 13:00 Sputum Induced Gram Stain - Final Complete 12/20/18 13:00 Sputum Culture - Final Staphylococcus Aureus - Mrsa Usual Respiratory Shelly Complete Laboratory Tests Test 12/22/18 04:00 White Blood Count 10.8 K/UL (4.8-10.8) Red Blood Count 2.79 M/UL (4.70-6.10) L Hemoglobin 8.4 G/DL (14.2-18.0) L Hematocrit 26.5 % (42.0-52.0) L Mean Corpuscular Volume 95 FL (80-99) Mean Corpuscular Hemoglobin 30.3 PG (27.0-31.0) Mean Corpuscular Hemoglobin Concent 31.9 G/DL (32.0-36.0) L Red Cell Distribution Width 15.3 % (11.6-14.8) H Platelet Count 267 K/UL (150-450) Mean Platelet Volume 9.0 FL (6.5-10.1) Neutrophils (%) (Auto) 83.5 % (45.0-75.0) H Lymphocytes (%) (Auto) 11.0 % (20.0-45.0) L Monocytes (%) (Auto) 3.6 % (1.0-10.0) Eosinophils (%) (Auto) 0.9 % (0.0-3.0) Basophils (%) (Auto) 0.9 % (0.0-2.0) Sodium Level 148 MMOL/L (136-145) H Potassium Level 5.2 MMOL/L (3.5-5.1) H Chloride Level 113 MMOL/L (98-107) H Carbon Dioxide Level 22 MMOL/L (21-32) Anion Gap 13 mmol/L (5-15) Blood Urea Nitrogen 60 mg/dL (7-18) H Creatinine 1.2 MG/DL (0.55-1.30) Estimat Glomerular Filtration Rate mL/min (>60) Glucose Level 247 MG/DL (74-106) H Calcium Level 10.7 MG/DL (8.5-10.1) H Phosphorus Level 4.1 MG/DL (2.5-4.9) Magnesium Level 1.8 MG/DL (1.8-2.4) Total Bilirubin 0.2 MG/DL (0.2-1.0) Aspartate Amino Transf (AST/SGOT) 14 U/L (15-37) L Alanine Aminotransferase (ALT/SGPT) 10 U/L (12-78) L Alkaline Phosphatase 143 U/L (46-116) H Total Protein 8.1 G/DL (6.4-8.2) Albumin 1.2 G/DL (3.4-5.0) L Globulin 6.9 g/dL Albumin/Globulin Ratio 0.2 (1.0-2.7) L Current Medications Medications (Trade) Dose Ordered Sig/Fransisco Route PRN Reason Start Time Stop Time Status Last Admin Dose Admin Acetaminophen (Tylenol) 650 mg Q4H PRN GT For Pain 12/07/18 17:00 01/06/19 16:59 12/21/18 04:06 Acetaminophen (Tylenol) 650 mg Q4H PRN GT fever 12/10/18 09:45 01/06/19 16:59 12/21/18 17:22 Atenolol (Tenormin) 25 mg Q12HR ORAL 12/22/18 21:00 01/11/19 20:59 Aztreonam 1 gm/ Dextrose 55 ml @ 110 mls/hr Q8HR IVPB 12/09/18 15:00 12/22/18 23:59 12/22/18 05:25 Chlorhexidine Gluconate (Sandra-Hex 2%) 1 applic DAILY@2000 TOPIC 12/10/18 20:00 01/09/19 19:59 12/21/18 20:46 Dextrose (Dextrose 50%) 25 ml Q30M PRN IV Hypoglycemia 12/10/18 14:00 01/09/19 13:59 Dextrose (Dextrose 50%) 50 ml Q30M PRN IV Hypoglycemia 12/10/18 14:00 01/09/19 13:59 Digoxin (Lanoxin) 0.25 mg DAILY GT 12/12/18 09:00 01/10/19 08:59 12/22/18 09:03 Diltiazem HCl (Cardizem) 10 mg BIDPRN PRN IVP FOR HR >140 12/12/18 08:45 01/11/19 08:44 Diltiazem HCl (Cardizem) 30 mg BID GT 12/22/18 18:00 01/10/19 17:59 Gemfibrozil (Lopid) 600 mg TWICE A DAY GT 12/15/18 10:15 01/14/19 10:14 12/22/18 09:03 Heparin Sodium (Porcine) (Heparin 5000 units/ml) 5,000 units EVERY 12 HOURS SUBQ 12/07/18 21:00 01/06/19 20:59 12/22/18 09:06 Insulin Aspart (NovoLOG) EVERY 4 HOURS SUBQ 12/12/18 05:00 01/09/19 04:59 12/22/18 11:58 Lansoprazole (Prevacid) 30 mg DAILY GT 12/17/18 09:00 01/16/19 08:59 12/22/18 09:02 Linezolid (Zyvox) 600 mg EVERY 12 HOURS ORAL 12/21/18 15:15 12/26/18 15:14 12/22/18 09:03 Metformin HCl (Glucophage) 500 mg BID ORAL 12/18/18 09:00 01/17/19 08:59 12/22/18 09:03 Nateglinide (Starlix) 120 mg Q8HR ORAL 12/18/18 22:00 01/17/19 21:59 12/22/18 05:25 Nitroglycerin (Ntg) 0.4 mg Q5M PRN SL Prn Chest Pain 12/07/18 17:00 01/06/19 16:59 Ondansetron HCl (Zofran) 4 mg Q6H PRN IVP Nausea & Vomiting 12/07/18 17:00 01/06/19 16:59 Polyethylene Glycol (Miralax) 17 gm DAILYPRN PRN GT Constipation 12/10/18 09:45 01/06/19 16:59 Aminah Champagne M.D. Dec 22, 2018 12:14
--- NOTE | 2018-12-22 12:45 | Progress Note ---
DATE: 12/21/2018 SUBJECTIVE: The patient remained afebrile, spiked fever around 5 p.m. and fever resolved and have tachycardia. PHYSICAL EXAMINATION: VITAL SIGNS: Blood pressure 105/63, pulse 73, respirations of 25, and temperature 97.7. HEENT: Eyes were normal. ENT, mucous membranes were moist and intact. NECK: Supple with no JVD without lymph nodes. Tracheostomy site is clean. LUNGS: Clear without rhonchi, rales, or wheezing. Secretions are small, thin, and mcclure. HEART: Normal sounds with regular beats. There is no S3, S4, or pericardial rub. ABDOMEN: Soft and nontender with normal bowel sounds. Gastrostomy site is clean. EXTREMITIES: Warm without cyanosis, clubbing, or edema. LABORATORY AND DIAGNOSTIC DATA: Hemoglobin is 8.3, hematocrit 26.2 with MCV of 95, WBC of 12.2, and and platelets 265. BUN and creatinine is 44 and 1.0 respectively. Sodium is 146, potassium 5.7, chloride 117, and CO2 is 21. His calcium is 10.3, phosphorus is 3.2, and magnesium is 1.8. SGOT, SGPT, and alkaline phosphatase are normal. CRP is 48. Amylase and lipase are 99 and 433, . Chest x-ray done today revealed bilateral atelectasis and infiltrate. left costophrenic sulci, finding unchanged compared to the recent from 12/17/2018. IMPRESSION: The patient has bacteremia, left lower lobe pneumonia, Proteus urinary tract infection, Pseudomonas in the sputum. He has been treated by aztreonam and daptomycin as well as tobramycin therapy. Repeat laboratory tests will be done in the a.m. The patient's progression is slow. Neema Hutchins M.D. DR: RUPINDER JOB#: [id number] CC:
--- NOTE | 2018-12-22 13:55 | Surgery Progress Note ---
Surgery Progress Note Subjective Additional Comments no acute events. leukocytosis resolved. renal function declining. electrolytes abnormal. exam unchanged. Objective Last 24 Hour Vital Signs Date Time Temp Pulse Resp B/P (MAP) Pulse Ox O2 Delivery O2 Flow Rate FiO2 12/22/18 13:37 90 26 Mechanical Ventilator 15.0 35 12/22/18 13:28 92 30 35 12/22/18 12:19 Mechanical Ventilator 12/22/18 12:00 35 12/22/18 10:59 80 27 35 12/22/18 09:45 82 26 100 Mechanical Ventilator 35 12/22/18 09:36 83 28 100 Mechanical Ventilator 35 12/22/18 09:17 81 30 35 12/22/18 09:11 79 97/64 (75) 12/22/18 09:03 78 12/22/18 08:30 99.5 78 24 91/53 (66) 97 12/22/18 08:30 Mechanical Ventilator 12/22/18 08:00 35 12/22/18 07:35 79 12/22/18 07:17 75 31 35 12/22/18 05:11 75 30 35 12/22/18 04:00 35 12/22/18 04:00 Mechanical Ventilator 12/22/18 04:00 98.1 74 28 114/68 (83) 100 12/22/18 03:46 76 12/22/18 03:12 74 25 35 12/22/18 00:50 69 26 35 12/22/18 00:00 Mechanical Ventilator 12/22/18 00:00 97.7 73 25 105/63 (77) 99 12/21/18 23:29 74 12/21/18 22:45 76 21 100 Mechanical Ventilator 35 12/21/18 22:32 81 24 35 12/21/18 22:30 81 24 97 Mechanical Ventilator 35 12/21/18 20:52 89 116/58 12/21/18 20:36 88 29 35 12/21/18 20:00 Mechanical Ventilator 12/21/18 20:00 99.3 86 29 116/58 (77) 97 12/21/18 20:00 35 12/21/18 19:32 93 12/21/18 19:20 92 29 35 12/21/18 17:58 99.8 12/21/18 17:09 106 99/57 12/21/18 17:00 107 38 35 12/21/18 16:00 99.5 106 32 94/55 (68) 97 12/21/18 16:00 35 12/21/18 16:00 106 12/21/18 16:00 Mechanical Ventilator 12/21/18 15:17 106 32 35 I&O Intake and Output 12/21/18 12/22/18 18:59 06:59 Intake Total 1025 ml 950 ml Output Total 1150 ml 1050 ml Balance -125 ml -100 ml Intake Free Water 200 ml 180 ml IV Total 165 ml 110 ml Tube Feeding 660 ml 660 ml Output Urine Total 400 ml 250 ml Stool Total 750 ml 800 ml Dressing: saturated Wound: other Drains: other Cardiovascular: RSR Respiratory: decreased breath sounds Abdomen: soft, present bowel sounds, non-distended Extremities: no cyanosis, other Laboratory Tests Test 12/22/18 04:00 White Blood Count 10.8 K/UL (4.8-10.8) Red Blood Count 2.79 M/UL (4.70-6.10) L Hemoglobin 8.4 G/DL (14.2-18.0) L Hematocrit 26.5 % (42.0-52.0) L Mean Corpuscular Volume 95 FL (80-99) Mean Corpuscular Hemoglobin 30.3 PG (27.0-31.0) Mean Corpuscular Hemoglobin Concent 31.9 G/DL (32.0-36.0) L Red Cell Distribution Width 15.3 % (11.6-14.8) H Platelet Count 267 K/UL (150-450) Mean Platelet Volume 9.0 FL (6.5-10.1) Neutrophils (%) (Auto) 83.5 % (45.0-75.0) H Lymphocytes (%) (Auto) 11.0 % (20.0-45.0) L Monocytes (%) (Auto) 3.6 % (1.0-10.0) Eosinophils (%) (Auto) 0.9 % (0.0-3.0) Basophils (%) (Auto) 0.9 % (0.0-2.0) Sodium Level 148 MMOL/L (136-145) H Potassium Level 5.2 MMOL/L (3.5-5.1) H Chloride Level 113 MMOL/L (98-107) H Carbon Dioxide Level 22 MMOL/L (21-32) Anion Gap 13 mmol/L (5-15) Blood Urea Nitrogen 60 mg/dL (7-18) H Creatinine 1.2 MG/DL (0.55-1.30) Estimat Glomerular Filtration Rate mL/min (>60) Glucose Level 247 MG/DL (74-106) H Calcium Level 10.7 MG/DL (8.5-10.1) H Phosphorus Level 4.1 MG/DL (2.5-4.9) Magnesium Level 1.8 MG/DL (1.8-2.4) Total Bilirubin 0.2 MG/DL (0.2-1.0) Aspartate Amino Transf (AST/SGOT) 14 U/L (15-37) L Alanine Aminotransferase (ALT/SGPT) 10 U/L (12-78) L Alkaline Phosphatase 143 U/L (46-116) H Total Protein 8.1 G/DL (6.4-8.2) Albumin 1.2 G/DL (3.4-5.0) L Globulin 6.9 g/dL Albumin/Globulin Ratio 0.2 (1.0-2.7) L Plan Problems: (1) Decubitus skin ulcer Assessment & Plan: Pt presented on admission with multiple pressure injuries and Skin erosion. Pt has trach and no evidence of skin breakdown noted under trach collar. Unstageable pressure injury noted to L earlobe. Stable dry brown eschar noted(L) 0.7cm x (W)0.5cm. Gross erythema with denudement and multiple scattered partial thickness wounds noted to buttocks and base of scrotum extending into both posterior upper thighs.Moderate amt sanguineous exudate noted upon removal of drsgs. 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 Moderate amt sanguineous exudate noted (L)3cm x (W)1cm x (D)7.4cm.Erythema periwound secondary to skin erosions. Partially opened DTPI L ischium .Base of wound purple,fluctuant with red borders.Open areas at base of this wound are beefy red in colour.Moderate amt sanguineous exudate noted.(L)7cm x (W)6.8cm. DTPI R ischium.Wound is fluctuant-purple in center with surrounding Maroon colour, and is partially opened with a small area of 5% that is necrotic.(L) 6.5cm x (W)5.5cm. Red skin erosion periwound. Partial thickness pressure injury L hip. Base of wound is moist -viable. Edges adherent and dry. Periwound without erythema or induration(L)1.2cm x (W)0.5cm. Elongate partial thickness wound posterior upper L thigh .Base of wound is moist -viable .Small amt sanguineous exudate noted. (+) maceration along borders. Erythema without induration or elevation in skin temp noted.(L)2cm x (W )9.4cm. DTPI noted to R heel .Base of injury is indurated and maroon in colour. Periwound is firm without erythema. (L)1.5cm x (W)1cm.R heel without evidence of skin breakdown. Tx.Plan: Cleanse Sacrum with Saline. Loosely pack with Hydrogel impregnated Kerlix. Apply Triad Paste periwound. Cover with ABD pad. Daily and prn. Cleanse R and L ischial wounds with Saline. Apply Moisture Barrier Paste.Cover with abd pads Daily and prn. Apply Moisture Barrier to skin erosions on buttocks,scrotum, and posterior aspects of both thighs.Cover with ABD pad daily and prn. Cleanse wound L hip with Saline. Apply Moisture Barrier paste .Cover with Optifoam drsg Daily and prn. Cleanse wound posterior upper L thigh with saline .Apply Hydrogel. Cover with Optifoam drsg Daily and prn. Apply Cavilon Skin Barrier to L earlobe daily. Please monitor. Apply Cavilon Skin Barrier to L heel. Cover with Optifoam drsg. Change every 7 days and prn. Apply Cavilon Skin Barrier to R heel. Cover with Optifoam drsg .Change every 7 days and prn. Air fluidized mattress. Reposition every 2hours or as tolerated. Off-load heels with pillow. (2) Acute and chronic respiratory failure Assessment & Plan: cont with breathing treatments trach stable trach site clean will change dressings daily (3) Acute pancreatitis Assessment & Plan: Findings consistent with uncomplicated nonnecrotizing acute pancreatitis. No evidence of associated peripancreatic abscess Surgical changes as described, including right lower quadrant ileostomy, subtotal colectomy with Haroldo procedure. Wall thickening of the Haroldo pouch. This could indicate inflammation. However, this is also present on both of the prior 2 exams and may be baseline for this patient Evidence of mild anasarca, with edema of the subcutaneous fat. This is a new finding Chronic appearing decubitus changes of the bilateral ischia. Correlate with clinical findings Complete left lower lobe consolidation. This is similar to both of the prior CTs , and is likely a chronic finding. There is progressive chronic interstitial fibrotic change involving the right middle lobe. There is also right lower lobe granulomatous calcification Extensive pulmonary parenchymal opacities bilaterally may reflect acute inflammation/infection, edema, progressive chronic scarring, or combination of the above. These are considerably more extensive than on the prior study Trace bilateral pleural fluid New finding of nonobstructive right renal collecting system calculs 4 mm calculus within the bladder lumen. This may represent a bladder calculus, a calculus and left ureteral orifice, or recently passed stone. If either of the latter, no evidence of resultant hydronephrosis or hydroureter Suprapubic catheter. This is a new finding since the 2016 exams. Interim removal of previously demonstrated Bledsoe catheter Gastrostomy Left renal cysts. Subcentimeter low-attenuation right renal lesions, too small to characterize, most likely benign simple cysts. No further follow-up necessary elevated amylase/lipase trending down leukocytosis GNR Bacteremia transfused anemia Unfortunately patient not able to participate in exam and difficult to identify if clinically pancreatitis or just laboratory data. Recent CT with uncomplicated pancreatitis but enzymes still remain elevated. Patient tolerated tube feeds. Patient with gram-negative belle bacteremia likely from UTI. Patient remains febrile intermittently with worsening leukocytosis on IV antibiotics. -no acute surgical intervention planned -transfuse as per hematology -Abx as per ID -trend lip/[place] - recent finding based on CT given patient cannot given history or participate in exam. CT with uncomplicated pancreatitis. okay for diet / feeds for now. IV fluids Javier Ricardo Dec 22, 2018 13:55
--- NOTE | 2018-12-22 15:17 | General Progress Note ---
Assessment/Plan Assessment/Plan Assessment/Recs: # Leukocytosis/Elevated white blood cell count, unspecified likely related to underlying stress reaction, smoking, or underlying infection (especially if bandemia is noted) --> have reviewed peripheral smear and bandemia/neutrophilia noted --> continue antibiotics if they have been started by ID team --> monitor for resolution ---> WBC trend: 11-->16-->15-->14-->11-->12-->10.8 # Anemia of chronic disease due to underlying chronic medical issues, multifactorial --> Anemia workup has been reviewed, Ferritin 1573 --> No evidence of hemolysis is noted, peripheral smear has been reviewed. --> Hgb goal >7. Transfuse prn. --> Epogen or iron at this time is not particularly indicated --> Medications have been reviewed --> HGB trend: 7.8-->7.6-->6.2-->6.4->7.1-->8.7-->9.1-->8.4 # Thrombocytopenia - potential causes multifactorial, evaluate liver and viral etiologies to begin, also could be related to underlying medications patient has received. --> Hep panel and HIV negative --> US abd to evaluate for cirrhosis and hsm reviewed --> Peripheral smear ordered to evaluate for blasts /schistocytes --> abx and other meds have been reviewed --> ok for ppx if plt >50k w/ either heparin or lovenox --> Transfuse if Plt < 20k and fever, or if Plt < 10k without fever # Severe prerenal azotemia, on ivf --> improve po oral intake and consider appetite stimulant # Hypouricemia, appreciate Pulmonary nursing education consultant # Severe Sepsis, CXR: Probable small left pleural effusion, also evident on prior study 11/22/2017. -->appreciate ID recs # [email or web address], likely from UTI, PNA --> tolerating abx well --> as per pulm The timing of this note does not necessarily reflect the time of the patient was seen. Greatly appreciate consultation! Subjective Constitutional: Denies: no symptoms, chills, diaphoresis, fever, malaise, weakness, other Cardiovascular: Denies: no symptoms, chest pain, edema, irregular heart rate, lightheadedness, palpitations, syncope, other Neurologic/Psychiatric: Denies: no symptoms, anxiety, depressed, emotional problems, headache, numbness, paresthesia, pre-existing deficit, seizure, tingling, tremors, weakness, other Endocrine: Denies: no symptoms, excessive sweating, flushing, intolerance to cold, intolerance to heat, increased hunger, increased thirst, increased urine, unexplained weight gain, unexplained weight loss, other Hematologic/Lymphatic: Denies: no symptoms, anemia, easy bleeding, easy bruising, other Allergies: Coded Allergies: PENICILLINS (Unverified Allergy, Unknown, 02/26/16) POLYMYXIN B (Unverified Allergy, Unknown, 02/26/16) VANCOMYCIN (Unverified Allergy, Unknown, 02/26/16) Subjective 12/11: seen by bedside, vent dependent, leukocytosis, 11, hgb 7, will transfuse, no events 12/12: awake, comfortable wbc trending up at 16, no events 12/13: hgb 6.4, receiving transfusion, , wbc remains elevated. no acute events 12/14: seen by bedside, awake, comfortable low grade fever, wbc remains elevated at 15, bacteremia on IV Abx, hgb 7.1, will transfuse as needed 12/15: Wbc remains elevated, no events reported, hgb trending up 12/16: seen by bedside, awake, comfortable, no events 12/18: seen in the room, on vent and trach, no events 12/19: reviewed cbc and appears relatively stable, on starlix, remains in sdu 12/20: seen by bedside, on vent, mild leukocytosis 12/21: Pt is resting , on vent, wbc trending up , no events 12/22: exam is essentially unchanged, on abx, have discussed with pcp, rn, wbc better Objective Last 24 Hour Vital Signs Date Time Temp Pulse Resp B/P (MAP) Pulse Ox O2 Delivery O2 Flow Rate FiO2 12/22/18 13:37 90 26 Mechanical Ventilator 15.0 35 12/22/18 13:28 92 30 35 12/22/18 12:19 Mechanical Ventilator 12/22/18 12:00 35 12/22/18 10:59 80 27 35 12/22/18 09:45 82 26 100 Mechanical Ventilator 35 12/22/18 09:36 83 28 100 Mechanical Ventilator 35 12/22/18 09:17 81 30 35 12/22/18 09:11 79 97/64 (75) 12/22/18 09:03 78 12/22/18 08:30 99.5 78 24 91/53 (66) 97 12/22/18 08:30 Mechanical Ventilator 12/22/18 08:00 35 12/22/18 07:35 79 12/22/18 07:17 75 31 35 12/22/18 05:11 75 30 35 12/22/18 04:00 35 12/22/18 04:00 Mechanical Ventilator 12/22/18 04:00 98.1 74 28 114/68 (83) 100 12/22/18 03:46 76 12/22/18 03:12 74 25 35 12/22/18 00:50 69 26 35 12/22/18 00:00 Mechanical Ventilator 12/22/18 00:00 97.7 73 25 105/63 (77) 99 12/21/18 23:29 74 12/21/18 22:45 76 21 100 Mechanical Ventilator 35 12/21/18 22:32 81 24 35 12/21/18 22:30 81 24 97 Mechanical Ventilator 35 12/21/18 20:52 89 116/58 12/21/18 20:36 88 29 35 12/21/18 20:00 Mechanical Ventilator 12/21/18 20:00 99.3 86 29 116/58 (77) 97 12/21/18 20:00 35 12/21/18 19:32 93 12/21/18 19:20 92 29 35 12/21/18 17:58 99.8 12/21/18 17:09 106 99/57 12/21/18 17:00 107 38 35 12/21/18 16:00 99.5 106 32 94/55 (68) 97 12/21/18 16:00 35 12/21/18 16:00 106 12/21/18 16:00 Mechanical Ventilator 12/21/18 15:17 106 32 35 Intake and Output 12/21/18 12/22/18 18:59 06:59 Intake Total 1025 ml 950 ml Output Total 1150 ml 1050 ml Balance -125 ml -100 ml Intake Free Water 200 ml 180 ml IV Total 165 ml 110 ml Tube Feeding 660 ml 660 ml Output Urine Total 400 ml 250 ml Stool Total 750 ml 800 ml Laboratory Tests 12/22/18 04:00: White Blood Count 10.8, Red Blood Count 2.79L, Hemoglobin 8.4L, Hematocrit 26.5L , Mean Corpuscular Volume 95, Mean Corpuscular Hemoglobin 30.3, Mean Corpuscular Hemoglobin Concent 31.9L, Red Cell Distribution Width 15.3H, Platelet Count 267, Mean Platelet Volume 9.0, Neutrophils (%) (Auto) 83.5H, Lymphocytes (%) (Auto) 11.0L, Monocytes (%) (Auto) 3.6, Eosinophils (%) (Auto) 0.9, Basophils (%) (Auto) 0.9, Sodium Level 148H, Potassium Level 5.2H, Chloride Level 113H, Carbon Dioxide Level 22, Anion Gap 13, Blood Urea Nitrogen 60H, Creatinine 1.2, Estimat Glomerular Filtration Rate , Glucose Level 247H, Calcium Level 10.7H, Phosphorus Level 4.1, Magnesium Level 1.8, Total Bilirubin 0.2, Aspartate Amino Transf (AST/SGOT) 14L, Alanine Aminotransferase (ALT/SGPT) 10L, Alkaline Phosphatase 143H, Total Protein 8.1, Albumin 1.2L, Globulin 6.9, Albumin/Globulin Ratio 0.2L Height (Feet): 5 Height (Inches): 8.00 Weight (Pounds): 141 Objective Physical Exam HEENT: Eyes were normal. ENT, mucous membranes were not dehydrated. NECK: Supple. There was no goiter. No mass. No lymphadenopathy. There was no JVD. No bruits. Carotid upstroke was 2+. LUNGS: Clear. Vent++ HEART: PMI was in the fifth left intercostal space in midclavicular line. There was normal S1 and normal S2. There was no murmur. No arrhythmia. No S3. No S4. No pericardial rub. ABDOMEN: Soft and nontender without organomegaly. There were no masses palpable. Normal bowel sounds without bruits. There was no guarding. No rebound tenderness. No ascites. No hernia. No CVA tenderness. Liver span was 8 cm, mostly nontender. EXTREMITIES: No cyanosis, no clubbing, and no edema. Extremities warm. Adarsh Kim MD Dec 22, 2018 15:17
--- NOTE | 2018-12-22 15:55 | Nephrology Progress Note ---
Assessment/Plan Problem List: (1) ATN (acute tubular necrosis) (2) Anemia (3) Feeding by G-tube (4) Acute and chronic respiratory failure (5) UTI (urinary tract infection) (6) Hyponatremia Assessment Patient have mainly Pre Renal Azotemia with possible underlying CKD- Low Na partly depletional, partly due to Hyperglycemia RESOLVED Other conditions as outlined: (1) Acute and chronic respiratory failure ([id number]) (2) Sepsis (3) Malnutrition and HypoAlbuminemia (4) UTI (urinary tract infection) (5) Anemia (6) Diabetes mellitus, type II (7) Colostomy care (8) Cerebral vascular disease (9) Decubitus ulcer of sacral region, stage 2 (10) Feeding by G-tube (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 Plan transfused total 2 units Kayexelate for high K given 12/17 repeat today On Starlix up dose digoxin and tenormin K and Phos supplement as needed Keep electrolytes in check Keep BS and BP in check Subjective ROS Limited/Unobtainable: Yes Objective Objective Last 24 Hour Vital Signs Date Time Temp Pulse Resp B/P (MAP) Pulse Ox O2 Delivery O2 Flow Rate FiO2 12/22/18 15:29 90 30 35 12/22/18 13:37 90 26 Mechanical Ventilator 15.0 35 12/22/18 13:28 92 30 35 12/22/18 12:19 Mechanical Ventilator 12/22/18 12:00 35 12/22/18 10:59 80 27 35 12/22/18 09:45 82 26 100 Mechanical Ventilator 35 12/22/18 09:36 83 28 100 Mechanical Ventilator 35 12/22/18 09:17 81 30 35 12/22/18 09:11 79 97/64 (75) 12/22/18 09:03 78 12/22/18 08:30 99.5 78 24 91/53 (66) 97 12/22/18 08:30 Mechanical Ventilator 12/22/18 08:00 35 12/22/18 07:35 79 12/22/18 07:17 75 31 35 12/22/18 05:11 75 30 35 12/22/18 04:00 35 12/22/18 04:00 Mechanical Ventilator 12/22/18 04:00 98.1 74 28 114/68 (83) 100 12/22/18 03:46 76 12/22/18 03:12 74 25 35 12/22/18 00:50 69 26 35 12/22/18 00:00 Mechanical Ventilator 12/22/18 00:00 97.7 73 25 105/63 (77) 99 12/21/18 23:29 74 12/21/18 22:45 76 21 100 Mechanical Ventilator 35 12/21/18 22:32 81 24 35 12/21/18 22:30 81 24 97 Mechanical Ventilator 35 12/21/18 20:52 89 116/58 12/21/18 20:36 88 29 35 12/21/18 20:00 Mechanical Ventilator 12/21/18 20:00 99.3 86 29 116/58 (77) 97 12/21/18 20:00 35 12/21/18 19:32 93 12/21/18 19:20 92 29 35 12/21/18 17:58 99.8 12/21/18 17:09 106 99/57 12/21/18 17:00 107 38 35 12/21/18 16:00 99.5 106 32 94/55 (68) 97 12/21/18 16:00 35 12/21/18 16:00 106 12/21/18 16:00 Mechanical Ventilator Intake and Output 12/21/18 12/22/18 18:59 06:59 Intake Total 1025 ml 950 ml Output Total 1150 ml 1050 ml Balance -125 ml -100 ml Intake Free Water 200 ml 180 ml IV Total 165 ml 110 ml Tube Feeding 660 ml 660 ml Output Urine Total 400 ml 250 ml Stool Total 750 ml 800 ml Laboratory Tests 12/22/18 04:00: White Blood Count 10.8, Red Blood Count 2.79L, Hemoglobin 8.4L, Hematocrit 26.5L , Mean Corpuscular Volume 95, Mean Corpuscular Hemoglobin 30.3, Mean Corpuscular Hemoglobin Concent 31.9L, Red Cell Distribution Width 15.3H, Platelet Count 267, Mean Platelet Volume 9.0, Neutrophils (%) (Auto) 83.5H, Lymphocytes (%) (Auto) 11.0L, Monocytes (%) (Auto) 3.6, Eosinophils (%) (Auto) 0.9, Basophils (%) (Auto) 0.9, Sodium Level 148H, Potassium Level 5.2H, Chloride Level 113H, Carbon Dioxide Level 22, Anion Gap 13, Blood Urea Nitrogen 60H, Creatinine 1.2, Estimat Glomerular Filtration Rate , Glucose Level 247H, Calcium Level 10.7H, Phosphorus Level 4.1, Magnesium Level 1.8, Total Bilirubin 0.2, Aspartate Amino Transf (AST/SGOT) 14L, Alanine Aminotransferase (ALT/SGPT) 10L, Alkaline Phosphatase 143H, Total Protein 8.1, Albumin 1.2L, Globulin 6.9, Albumin/Globulin Ratio 0.2L Height (Feet): 5 Height (Inches): 8.00 Weight (Pounds): 141 General Appearance: no apparent distress Objective no change Migue Moreland MD Dec 22, 2018 15:55
[2018-12-22] MEDS: dilTIAZem HCl 30mg tab GT SCH (17:23)
--- NOTE | 2018-12-22 18:40 | NUR ---
NURSE NOTES: Turned to sides with skin care,colostomy bag leaking,protect skin,changed,patient awake most time,takes short naps,uncomfortable when turned,will tell you how low head of bed comfortable for him,wound care nurse with me during dressing changed verbalize wound/skin improving Dr. Moreland,Dr. Hutchins notified NA-148 K-5.2,notified about recommendation of manager organizational G tube feeding,Notified Des BAPTISTE NP recommendation manager organizational ,LISA to change feeding to nepro with supplement,tolerating feeding at this time Addendum: 12/22/18 at 3 by Kesha SCHWAB RN dressing changed G tube,suprapubic catheter,tracheostomy
--- NOTE | 2018-12-22 19:03 | Cardiology Progress Note ---
Assessment/Plan Assessment/Plan 1. Supraventricular tachycardia. recurrent 12/09 and 12/10 2. Renal insufficiency. 3. Hyponatremia. 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 6. History of bowel resection. 7. History of CVA. 8. Chronic tracheostomy. 9. Diabetes mellitus. 10 pancreatitis 11. anemai bp borderline cortisol was normal on low dose Cardizem via gtube and dig and atenolol dig level 0.9 on 12/16 no further svt on the present regimen heart rate stable tele looks ok hodl parameter for low bp added Subjective Subjective on the vent Objective Last 24 Hour Vital Signs Date Time Temp Pulse Resp B/P (MAP) Pulse Ox O2 Delivery O2 Flow Rate FiO2 12/22/18 17:23 89 94/67 12/22/18 17:17 92 29 35 12/22/18 16:15 Mechanical Ventilator 12/22/18 16:00 90 12/22/18 16:00 98.0 89 26 94/67 (76) 98 12/22/18 16:00 35 12/22/18 15:29 90 30 35 12/22/18 13:37 90 26 Mechanical Ventilator 15.0 35 12/22/18 13:28 92 30 35 12/22/18 12:19 Mechanical Ventilator 12/22/18 12:00 98.1 81 24 99/62 (74) 100 12/22/18 12:00 35 12/22/18 12:00 82 12/22/18 10:59 80 27 35 12/22/18 09:45 82 26 100 Mechanical Ventilator 35 12/22/18 09:36 83 28 100 Mechanical Ventilator 35 12/22/18 09:17 81 30 35 12/22/18 09:11 79 97/64 (75) 12/22/18 09:03 78 12/22/18 08:30 99.5 78 24 91/53 (66) 97 12/22/18 08:30 Mechanical Ventilator 12/22/18 08:00 35 12/22/18 07:35 79 12/22/18 07:17 75 31 35 12/22/18 05:11 75 30 35 12/22/18 04:00 35 12/22/18 04:00 Mechanical Ventilator 12/22/18 04:00 98.1 74 28 114/68 (83) 100 12/22/18 03:46 76 12/22/18 03:12 74 25 35 12/22/18 00:50 69 26 35 12/22/18 00:00 Mechanical Ventilator 12/22/18 00:00 97.7 73 25 105/63 (77) 99 12/21/18 23:29 74 12/21/18 22:45 76 21 100 Mechanical Ventilator 35 12/21/18 22:32 81 24 35 12/21/18 22:30 81 24 97 Mechanical Ventilator 35 12/21/18 20:52 89 116/58 12/21/18 20:36 88 29 35 12/21/18 20:00 Mechanical Ventilator 12/21/18 20:00 99.3 86 29 116/58 (77) 97 12/21/18 20:00 35 12/21/18 19:32 93 12/21/18 19:20 92 29 35 General Appearance: no apparent distress, alert, on vent, patient on isolation Intake and Output 12/21/18 12/22/18 19:00 07:00 Intake Total 1025 ml 895 ml Output Total 1150 ml 1050 ml Balance -125 ml -155 ml Intake Free Water 200 ml 180 ml IV Total 165 ml 110 ml Tube Feeding 660 ml 605 ml Output Urine Total 400 ml 250 ml Stool Total 750 ml 800 ml Laboratory Tests Test 12/22/18 04:00 White Blood Count 10.8 K/UL (4.8-10.8) Red Blood Count 2.79 M/UL (4.70-6.10) L Hemoglobin 8.4 G/DL (14.2-18.0) L Hematocrit 26.5 % (42.0-52.0) L Mean Corpuscular Volume 95 FL (80-99) Mean Corpuscular Hemoglobin 30.3 PG (27.0-31.0) Mean Corpuscular Hemoglobin Concent 31.9 G/DL (32.0-36.0) L Red Cell Distribution Width 15.3 % (11.6-14.8) H Platelet Count 267 K/UL (150-450) Mean Platelet Volume 9.0 FL (6.5-10.1) Neutrophils (%) (Auto) 83.5 % (45.0-75.0) H Lymphocytes (%) (Auto) 11.0 % (20.0-45.0) L Monocytes (%) (Auto) 3.6 % (1.0-10.0) Eosinophils (%) (Auto) 0.9 % (0.0-3.0) Basophils (%) (Auto) 0.9 % (0.0-2.0) Sodium Level 148 MMOL/L (136-145) H Potassium Level 5.2 MMOL/L (3.5-5.1) H Chloride Level 113 MMOL/L (98-107) H Carbon Dioxide Level 22 MMOL/L (21-32) Anion Gap 13 mmol/L (5-15) Blood Urea Nitrogen 60 mg/dL (7-18) H Creatinine 1.2 MG/DL (0.55-1.30) Estimat Glomerular Filtration Rate mL/min (>60) Glucose Level 247 MG/DL (74-106) H Calcium Level 10.7 MG/DL (8.5-10.1) H Phosphorus Level 4.1 MG/DL (2.5-4.9) Magnesium Level 1.8 MG/DL (1.8-2.4) Total Bilirubin 0.2 MG/DL (0.2-1.0) Aspartate Amino Transf (AST/SGOT) 14 U/L (15-37) L Alanine Aminotransferase (ALT/SGPT) 10 U/L (12-78) L Alkaline Phosphatase 143 U/L (46-116) H Total Protein 8.1 G/DL (6.4-8.2) Albumin 1.2 G/DL (3.4-5.0) L Globulin 6.9 g/dL Albumin/Globulin Ratio 0.2 (1.0-2.7) L Microbiology Date/Time Source Procedure Growth Status 12/20/18 12:25 Blood Blood Culture - Preliminary NO GROWTH AFTER 24 HOURS Resulted 12/20/18 12:15 Blood Blood Culture - Preliminary Streptococcus Species Resulted 12/20/18 04:00 Blood Blood Culture - Preliminary NO GROWTH AFTER 24 HOURS Resulted 12/20/18 13:00 Sputum Induced Gram Stain - Final Complete 12/20/18 13:00 Sputum Culture - Final Staphylococcus Aureus - Mrsa Usual Respiratory Shelly Complete Donny Kelley MD Dec 22, 2018 19:03
--- NOTE | 2018-12-22 19:08 | NUR ---
NURSE NOTES: Report given to RN Allison,patient on vent stable,no distress ,G tube feeding nepro 20 ml/hr,colostomy,suprapubic catheter
--- NOTE | 2018-12-22 19:09 | NUR ---
NURSE NOTES: RECEIVED PT FROM SHAKIR MIRANDA. PT IS RESTING IN BED, MOSTLY NONVERBAL, ABLE TO ANSWER QUESTIONS YES/NO OCCASIONALLY. MECHANICAL VENTILATION PORTEX 8, AC 16, TV 500, FIOS 35, PEEP 5. CGTF RUNNING NEPRO @ 20, GOAL 35; NO RESIDUAL. RLQ COLOSTOMY NOTED, DARK DRAINAGE. SUPRAPUBIC CATHETER NOTED, DRAINING YELLOW URINE. EDA PICC; ASYMPTOMATIC. ACCUCHEK Q4. SKIN IS CLEAN, DRY, DRESSINGS INTACT. BED IS LOCKED IN LOWEST POSITION, SR X3, CALL TOMAS W/ IN REACH, BED ALARM ON. WILL CONTINUE TO MONITOR AND FOLLOW W/ PLAN OF CARE.
[2018-12-22] MEDS: Dyna-Hex 2% Top Sol 2oz TOPIC SCH (20:38)
[2018-12-22] MEDS: Atenolol 25mg tab ORAL SCH (20:44)
[2018-12-23 04:00] VITALS: BP 107/60
--- NOTE | 2018-12-23 04:37 | Progress Note ---
DATE: 12/22/2018 SUBJECTIVE: The patient is awake, alert, afebrile, and hemodynamically stable. PHYSICAL EXAMINATION: VITAL SIGNS: Blood pressure is 114/70, his pulse is 108, respirations 22, and temperature was 99. HEENT: Eyes were normal. ENT, mucous membranes were moist and intact. NECK: Supple with no JVD without lymph nodes. Tracheostomy site is clean. LUNGS: Clear without rhonchi, rales, or wheezing. Secretions are small, thin, and barros. HEART: Normal sounds with regular beats. There is no S3, S4, or pericardial rub. ABDOMEN: Soft and nontender with normal bowel sounds. Gastrostomy site is clean. EXTREMITIES: Warm without cyanosis, clubbing, or edema. LABORATORY DATA: No new laboratory data were available at the time of this dictation as the computers are down. His laboratory data of 12/22/2018 will be reported in the following report on 12/23/2018. Neema Hutchins M.D. DR: PIERCE JOB#: [id number] CC:
[2018-12-23] MEDS: NovoLOG Insulin Flexpen SUBQ SCH ×6 (04:44→21:06)
[2018-12-23 05:23] LABS: ALANINE AMINOTRANSFERASE 11 U/L (12-78); ALBUMIN 1.1 G/DL (3.4-5.0); ALBUMIN/GLOBULIN RATIO 0.2 (1.0-2.7); ALKALINE PHOSPHATASE 118 U/L (46-116); ANION GAP 14 mmol/L (5-15); ASPARTATE AMINO TRANSFERASE 15 U/L (15-37); BILIRUBIN,TOTAL 0.1 MG/DL (0.2-1.0); BLOOD UREA NITROGEN 56 mg/dL (7-18); CALCIUM 10.7 MG/DL (8.5-10.1); CARBON DIOXIDE 20 MMOL/L (21-32); CHLORIDE 113 MMOL/L (98-107); PHOSPHORUS 2.9 MG/DL (2.5-4.9); POTASSIUM 4.4 MMOL/L (3.5-5.1); SODIUM 147 MMOL/L (136-145)
[2018-12-23 05:24] LABS: HEMATOCRIT 24.6 % (42.0-52.0); HEMOGLOBIN 7.8 G/DL (14.2-18.0); MEAN CORPUSCULAR VOLUME 96 FL (80-99); PLATELET COUNT 305 K/UL (150-450); RED BLOOD COUNT 2.57 M/UL (4.70-6.10); RED CELL DISTRIBUTION WIDTH 15.9 % (11.6-14.8)
--- NOTE | 2018-12-23 06:40 | NUR ---
RESPIRATORY NOTE: Received pt on AC 18, 500VT, 35%, PEEP +5. Pt trach-dependent w/ a cuffed, Portex 7 tube. Pt is sleeping, minimal response. B/S kaylynn. rhonchi, sxn small amounts of thick pham-yellow secretions without incidents. Alarms are set and audible. Vent plugged into red outlet, ambubag & spare trach kit at bedside. Pt in no apparent distress at this time. Will continue plan of care.
--- NOTE | 2018-12-23 07:13 | NUR ---
HAND-OFF: Report given to SHAKIR SANON.
--- NOTE | 2018-12-23 07:19 | NUR ---
NURSE NOTES: Received report from SHAKIR Cooper. Patient is resting in bed, in stable condition. No s/sx of SOB, breathing is even and unlabored. Vent settings are as ordered. Observed no presence of pain or discomfort at this time. Bed is in lowest position, brakes engaged. Call light is kept within easy reach. Will continue to monitor patient.
[2018-12-23 08:00] VITALS: BP 94/62
--- NOTE | 2018-12-23 08:18 | General Progress Note ---
Assessment/Plan Problem List: (1) Tracheostomy in place ICD Codes: Z98.89 - Other specified postprocedural states SNOMED: 894629805 (2) Acute and chronic respiratory failure ICD Codes: J96.20 - Acute and chronic respiratory failure, unspecified whether with hypoxia or hypercapnia SNOMED: 84930077, 59327711 (3) Decubitus ulcer of sacral region, stage 2 ICD Codes: L89.152 - Pressure ulcer of sacral region, stage 2 SNOMED: 362794813, 730244865 (4) Cerebral vascular disease ICD Codes: I67.9 - Cerebrovascular disease, unspecified SNOMED: 22631733 (5) Colostomy care ICD Codes: Z43.3 - Encounter for attention to colostomy SNOMED: 062593470 (6) Hypertension ICD Codes: I10 - Essential (primary) hypertension SNOMED: 93070126 (7) Diabetes mellitus, type II ICD Codes: E11.9 - Type 2 diabetes mellitus without complications SNOMED: 43426896 (8) Feeding by G-tube ICD Codes: Z93.1 - Gastrostomy status SNOMED: 914751086, 877708509 (9) Anemia ICD Codes: D64.9 - Anemia, unspecified SNOMED: 615019789 (10) Pancreatitis ICD Codes: K85.90 - Acute pancreatitis without necrosis or infection, unspecified SNOMED: 60613965 Assessment/Plan fu H&H ppi daily lopid GTF fu labs fu stool ob transfuse ig hgb below 7 may need EGD if persistent drop in H&H and repeat stool ob is positive Subjective ROS Limited/Unobtainable: No Allergies: Coded Allergies: PENICILLINS (Unverified Allergy, Unknown, 02/26/16) POLYMYXIN B (Unverified Allergy, Unknown, 02/26/16) VANCOMYCIN (Unverified Allergy, Unknown, 02/26/16) Objective Last 24 Hour Vital Signs Date Time Temp Pulse Resp B/P (MAP) Pulse Ox O2 Delivery O2 Flow Rate FiO2 12/23/18 06:40 109 29 35 12/23/18 04:00 106 12/23/18 04:00 99.1 109 29 107/60 (76) 97 12/23/18 04:00 Mechanical Ventilator 12/23/18 04:00 35 12/22/18 21:18 100 29 35 12/22/18 20:44 88 94/65 12/22/18 20:00 97.5 92 22 104/55 (71) 99 12/22/18 20:00 Mechanical Ventilator 12/22/18 20:00 93 12/22/18 20:00 35 12/22/18 19:19 90 25 35 12/22/18 17:23 89 94/67 12/22/18 17:17 92 29 35 12/22/18 16:15 Mechanical Ventilator 12/22/18 16:00 90 12/22/18 16:00 98.0 89 26 94/67 (76) 98 12/22/18 16:00 35 12/22/18 15:29 90 30 35 12/22/18 13:37 90 26 Mechanical Ventilator 15.0 35 12/22/18 13:28 92 30 35 12/22/18 12:19 Mechanical Ventilator 12/22/18 12:00 98.1 81 24 99/62 (74) 100 12/22/18 12:00 35 12/22/18 12:00 82 12/22/18 10:59 80 27 35 12/22/18 09:45 82 26 100 Mechanical Ventilator 35 12/22/18 09:36 83 28 100 Mechanical Ventilator 35 12/22/18 09:17 81 30 35 12/22/18 09:11 79 97/64 (75) 12/22/18 09:03 78 12/22/18 08:30 99.5 78 24 91/53 (66) 97 12/22/18 08:30 Mechanical Ventilator Intake and Output 12/22/18 12/23/18 19:00 07:00 Intake Total 925 ml 390 ml Output Total 890 ml 900 ml Balance 35 ml -510 ml Intake Free Water 420 ml 150 ml IV Total 110 ml 55 ml Tube Feeding 395 ml 185 ml Output Urine Total 525 ml 600 ml Stool Total 365 ml 300 ml Laboratory Tests 12/23/18 04:00: White Blood Count 11.0H, Red Blood Count 2.57L, Hemoglobin 7.8L, Hematocrit 24.6L, Mean Corpuscular Volume 96, Mean Corpuscular Hemoglobin 30.3, Mean Corpuscular Hemoglobin Concent 31.7L, Red Cell Distribution Width 15.9H, Platelet Count 305, Mean Platelet Volume 10.2H, Neutrophils (%) (Auto) , Lymphocytes (%) (Auto) , Monocytes (%) (Auto) , Eosinophils (%) (Auto) , Basophils (%) (Auto) , Neutrophils % (Manual) [Pending], Lymphocytes % (Manual) [Pending], Platelet Estimate [Pending], Platelet Morphology [Pending], Sodium Level 147H, Potassium Level 4.4, Chloride Level 113H, Carbon Dioxide Level 20L, Anion Gap 14, Blood Urea Nitrogen 56H, Creatinine 1.0, Estimat Glomerular Filtration Rate , Glucose Level 221H, Calcium Level 10.7H, Phosphorus Level 2.9 , Magnesium Level 1.7L, Total Bilirubin 0.1L, Aspartate Amino Transf (AST/SGOT) 15, Alanine Aminotransferase (ALT/SGPT) 11L, Alkaline Phosphatase 118H, Total Protein 8.1, Albumin 1.1L, Globulin 7.0, Albumin/Globulin Ratio 0.2L, Lipase 483H Height (Feet): 5 Height (Inches): 8.00 Weight (Pounds): 141 General Appearance: lethargic EENT: normal ENT inspection Neck: supple Cardiovascular: normal rate Respiratory/Chest: decreased breath sounds Abdomen: soft, decreased bowel sounds, other - ileostomy bag in place Extremities: non-tender Benjamin Jackson MD Dec 23, 2018 08:18
[2018-12-23] MEDS: Heparin 5000 units/ml inj SUBQ SCH ×2 (08:31→21:05)
[2018-12-23] MEDS: dilTIAZem HCl 30mg tab GT SCH ×2 (09:00→17:21)
[2018-12-23] MEDS: Atenolol 25mg tab ORAL SCH (09:00)
[2018-12-23] MEDS: metFORMIN 500mg tab ORAL SCH (09:04)
--- NOTE | 2018-12-23 09:30 | NUR ---
NURSE NOTES: OB stool sample sent to lab. Noted.
[2018-12-23 12:00] VITALS: BP 105/66
--- NOTE | 2018-12-23 13:20 | NUR ---
NURSE NOTES: Began patient blood transfusion of [address] Guerra. BP 102/63 HR 110, Temp: 98.3 F oral. Will continue to monitor patient.
--- NOTE | 2018-12-23 13:40 | NUR ---
NURSE NOTES: Recheck patient vital signs 15 minutes after beginning blood transfusion of 1 unit of PRBC. BP 105/65, HR 111, Temp. 98.2 F oral. No adverse reaction noted. Will continue to monitor patient.
--- NOTE | 2018-12-23 13:41 | NUR ---
ST NOTE: RECEIVED PASSY-MARY SPEAKING VALVE EVAL ORDER CHART REVIEWED. ATTEMPTED TO EVAL IN PM. PT SEEN AT BEDSIDE, VERY SLEEPY EVEN GIVEN MAX CUES. CURRENTLY, PT IS RECEIVING BLOOD TRANSFUSION. HOLD OFF PASSY-MARY SPEAKING VALVE EVAL AT THIS TIME. WILL RE-ATTEMPT. D/W KG SINGH.
--- NOTE | 2018-12-23 14:06 | Nephrology Progress Note ---
Assessment/Plan Problem List: (1) Hypercalcemia (2) ATN (acute tubular necrosis) (3) Anemia (4) Feeding by G-tube (5) Acute and chronic respiratory failure (6) UTI (urinary tract infection) (7) Hyponatremia Assessment AREDIA 90 mg for HYPERCALCEMIA Patient have mainly Pre Renal Azotemia with possible underlying CKD- Low Na partly depletional, partly due to Hyperglycemia RESOLVED Other conditions as outlined: (1) Acute and chronic respiratory failure (shsks-ly-awvldhd) (2) Sepsis (3) Malnutrition and HypoAlbuminemia (4) UTI (urinary tract infection) (5) Anemia (6) Diabetes mellitus, type II (7) Colostomy care (8) Cerebral vascular disease (9) Decubitus ulcer of sacral region, stage 2 (10) Feeding by G-tube (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 Plan transfused total 2 units Kayexelate for high K given 12/17 repeat today On Starlix up dose digoxin and tenormin K and Phos supplement as needed Keep electrolytes in check Keep BS and BP in check Subjective ROS Limited/Unobtainable: Yes Objective Objective Last 24 Hour Vital Signs Date Time Temp Pulse Resp B/P (MAP) Pulse Ox O2 Delivery O2 Flow Rate FiO2 12/23/18 13:17 112 29 35 12/23/18 10:50 114 31 35 12/23/18 09:10 111 31 35 12/23/18 09:04 111 12/23/18 09:00 111 94/62 12/23/18 09:00 111 94/62 12/23/18 08:00 99.8 111 29 94/62 (73) 98 12/23/18 08:00 Mechanical Ventilator 12/23/18 08:00 35 12/23/18 08:00 108 12/23/18 06:40 109 29 35 12/23/18 04:00 106 12/23/18 04:00 99.1 109 29 107/60 (76) 97 12/23/18 04:00 Mechanical Ventilator 12/23/18 04:00 35 12/22/18 21:18 100 29 35 12/22/18 20:44 88 94/65 12/22/18 20:00 97.5 92 22 104/55 (71) 99 12/22/18 20:00 Mechanical Ventilator 12/22/18 20:00 93 12/22/18 20:00 35 12/22/18 19:19 90 25 35 12/22/18 17:23 89 94/67 12/22/18 17:17 92 29 35 12/22/18 16:15 Mechanical Ventilator 12/22/18 16:00 90 12/22/18 16:00 98.0 89 26 94/67 (76) 98 12/22/18 16:00 35 12/22/18 15:29 90 30 35 Intake and Output 12/22/18 12/23/18 19:00 07:00 Intake Total 925 ml 390 ml Output Total 890 ml 900 ml Balance 35 ml -510 ml Intake Free Water 420 ml 150 ml IV Total 110 ml 55 ml Tube Feeding 395 ml 185 ml Output Urine Total 525 ml 600 ml Stool Total 365 ml 300 ml Laboratory Tests 12/23/18 04:00: White Blood Count 11.0H, Red Blood Count 2.57L, Hemoglobin 7.8L, Hematocrit 24.6L, Mean Corpuscular Volume 96, Mean Corpuscular Hemoglobin 30.3, Mean Corpuscular Hemoglobin Concent 31.7L, Red Cell Distribution Width 15.9H, Platelet Count 305, Mean Platelet Volume 10.2H, Neutrophils (%) (Auto) , Lymphocytes (%) (Auto) , Monocytes (%) (Auto) , Eosinophils (%) (Auto) , Basophils (%) (Auto) , Differential Total Cells Counted 100, Neutrophils % ( Manual) 76H, Lymphocytes % (Manual) 12L, Monocytes % (Manual) 11H, Eosinophils % (Manual) 0, Basophils % (Manual) 1, Band Neutrophils 0, Platelet Estimate Adequate, Platelet Morphology Normal, Hypochromasia 3+, Anisocytosis 1+, Sodium Level 147H, Potassium Level 4.4, Chloride Level 113H, Carbon Dioxide Level 20L, Anion Gap 14, Blood Urea Nitrogen 56H, Creatinine 1.0, Estimat Glomerular Filtration Rate , Glucose Level 221H, Calcium Level 10.7H, Phosphorus Level 2.9 , Magnesium Level 1.7L, Total Bilirubin 0.1L, Aspartate Amino Transf (AST/SGOT) 15, Alanine Aminotransferase (ALT/SGPT) 11L, Alkaline Phosphatase 118H, Total Protein 8.1, Albumin 1.1L, Globulin 7.0, Albumin/Globulin Ratio 0.2L, Lipase 483H 12/23/18 09:30: Stool Occult Blood Negative Height (Feet): 5 Height (Inches): 8.00 Weight (Pounds): 141 General Appearance: no apparent distress Cardiovascular: tachycardia Respiratory/Chest: decreased breath sounds Objective no change Migue Moreland MD Dec 23, 2018 14:06
--- NOTE | 2018-12-23 14:56 | Surgery Progress Note ---
Surgery Progress Note Subjective Additional Comments no acute events. labs noted. stable. exam unchanged. comfortable. Objective Last 24 Hour Vital Signs Date Time Temp Pulse Resp B/P (MAP) Pulse Ox O2 Delivery O2 Flow Rate FiO2 12/23/18 13:17 112 29 35 12/23/18 10:50 114 31 35 12/23/18 09:10 111 31 35 12/23/18 09:04 111 12/23/18 09:00 111 94/62 12/23/18 09:00 111 94/62 12/23/18 08:00 99.8 111 29 94/62 (73) 98 12/23/18 08:00 Mechanical Ventilator 12/23/18 08:00 35 12/23/18 08:00 108 12/23/18 06:40 109 29 35 12/23/18 04:00 106 12/23/18 04:00 99.1 109 29 107/60 (76) 97 12/23/18 04:00 Mechanical Ventilator 12/23/18 04:00 35 12/22/18 21:18 100 29 35 12/22/18 20:44 88 94/65 12/22/18 20:00 97.5 92 22 104/55 (71) 99 12/22/18 20:00 Mechanical Ventilator 12/22/18 20:00 93 12/22/18 20:00 35 12/22/18 19:19 90 25 35 12/22/18 17:23 89 94/67 12/22/18 17:17 92 29 35 12/22/18 16:15 Mechanical Ventilator 12/22/18 16:00 90 12/22/18 16:00 98.0 89 26 94/67 (76) 98 12/22/18 16:00 35 12/22/18 15:29 90 30 35 I&O Intake and Output 12/22/18 12/23/18 18:59 06:59 Intake Total 905 ml 410 ml Output Total 890 ml 900 ml Balance 15 ml -490 ml Intake Free Water 420 ml 150 ml IV Total 110 ml 55 ml Tube Feeding 375 ml 205 ml Output Urine Total 525 ml 600 ml Stool Total 365 ml 300 ml Dressing: other Wound: other Drains: other Cardiovascular: RSR Respiratory: decreased breath sounds Abdomen: soft, present bowel sounds, other Extremities: other Laboratory Tests Test 12/23/18 04:00 12/23/18 09:30 White Blood Count 11.0 K/UL (4.8-10.8) H Red Blood Count 2.57 M/UL (4.70-6.10) L Hemoglobin 7.8 G/DL (14.2-18.0) L Hematocrit 24.6 % (42.0-52.0) L Mean Corpuscular Volume 96 FL (80-99) Mean Corpuscular Hemoglobin 30.3 PG (27.0-31.0) Mean Corpuscular Hemoglobin Concent 31.7 G/DL (32.0-36.0) L Red Cell Distribution Width 15.9 % (11.6-14.8) H Platelet Count 305 K/UL (150-450) Mean Platelet Volume 10.2 FL (6.5-10.1) H Neutrophils (%) (Auto) % (45.0-75.0) Lymphocytes (%) (Auto) % (20.0-45.0) Monocytes (%) (Auto) % (1.0-10.0) Eosinophils (%) (Auto) % (0.0-3.0) Basophils (%) (Auto) % (0.0-2.0) Differential Total Cells Counted 100 Neutrophils % (Manual) 76 % (45-75) H Lymphocytes % (Manual) 12 % (20-45) L Monocytes % (Manual) 11 % (1-10) H Eosinophils % (Manual) 0 % (0-3) Basophils % (Manual) 1 % (0-2) Band Neutrophils 0 % (0-8) Platelet Estimate Adequate Platelet Morphology Normal Hypochromasia 3+ Anisocytosis 1+ Sodium Level 147 MMOL/L (136-145) H Potassium Level 4.4 MMOL/L (3.5-5.1) Chloride Level 113 MMOL/L (98-107) H Carbon Dioxide Level 20 MMOL/L (21-32) L Anion Gap 14 mmol/L (5-15) Blood Urea Nitrogen 56 mg/dL (7-18) H Creatinine 1.0 MG/DL (0.55-1.30) Estimat Glomerular Filtration Rate mL/min (>60) Glucose Level 221 MG/DL (74-106) H Calcium Level 10.7 MG/DL (8.5-10.1) H Phosphorus Level 2.9 MG/DL (2.5-4.9) Magnesium Level 1.7 MG/DL (1.8-2.4) L Total Bilirubin 0.1 MG/DL (0.2-1.0) L Aspartate Amino Transf (AST/SGOT) 15 U/L (15-37) Alanine Aminotransferase (ALT/SGPT) 11 U/L (12-78) L Alkaline Phosphatase 118 U/L (46-116) H Total Protein 8.1 G/DL (6.4-8.2) Albumin 1.1 G/DL (3.4-5.0) L Globulin 7.0 g/dL Albumin/Globulin Ratio 0.2 (1.0-2.7) L Lipase 483 U/L (73-393) H Stool Occult Blood Negative (NEGATIVE) Assessment Additional Comments DAILY ESTIMATED NEEDS: Needs based on critical care, wound/ 63kg 22-30 kcals/kg 1160-3384 total kcals 1.5-2 g protein/kg 94-126 g total protein 25-30 mL/kg 4427-1873 total fluid mLs NUTRITION DIAGNOSIS: 1) Increased kcal and protein needs r/t wound healing as evidenced by pt w/ multiple advanced wounds, including Unstageable wound at L earlobe. 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 3) Altered nutrition related lab values r/t clinical status as evidenced by hyperglycemia (BG 247 220), elev K (5.2, 5.7), elev Na (148), elev BUN (60) trending back up. CURRENT TF:Glucerna 1.2 @55ml/hr x24 hrs + PS x2 ENTERAL NUTRITION RECOMMENDATIONS: NEPRO @ 35ML/HR X 24 HRS + PROSOURCE 1PKT TID TO PROVIDE 840ml, 1512kcalL, 68g+ 33g prot (101g prot total), 610ml free water - Rec TF change to Nepro: will provide 1649mg less K than current TF - Initiate Nepro @ 20ml/hr x 6 hrs, advance 10ml q 4-6 hrs as tolerated to goal. - Add Prosource 1pkt BID for protein needs - Keep HOB >30degrees - Rec to increase water flushes: Rec 150ml q 4hrs ADDITIONAL RECOMMENDATIONS: * REcalibrate bed scale wt for accurate CBW * Monitor K closely- Rec TF change to Nepro (See above) * Wound care: add MITCHELL BID + Vit C 500mg QD * Monitor BGs closely, consider endo consult for improved BG control Plan Problems: (1) Decubitus skin ulcer Assessment & Plan: Pt presented on admission with multiple pressure injuries and Skin erosion. Pt has trach and no evidence of skin breakdown noted under trach collar. Unstageable pressure injury noted to L earlobe. Stable dry brown eschar noted(L) 0.7cm x (W)0.5cm. Gross erythema with denudement and multiple scattered partial thickness wounds noted to buttocks and base of scrotum extending into both posterior upper thighs.Moderate amt sanguineous exudate noted upon removal of drsgs. 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 Moderate amt sanguineous exudate noted (L)3cm x (W)1cm x (D)7.4cm.Erythema periwound secondary to skin erosions. Partially opened DTPI L ischium .Base of wound purple,fluctuant with red borders.Open areas at base of this wound are beefy red in colour.Moderate amt sanguineous exudate noted.(L)7cm x (W)6.8cm. DTPI R ischium.Wound is fluctuant-purple in center with surrounding Maroon colour, and is partially opened with a small area of 5% that is necrotic.(L) 6.5cm x (W)5.5cm. Red skin erosion periwound. Partial thickness pressure injury L hip. Base of wound is moist -viable. Edges adherent and dry. Periwound without erythema or induration(L)1.2cm x (W)0.5cm. Elongate partial thickness wound posterior upper L thigh .Base of wound is moist -viable .Small amt sanguineous exudate noted. (+) maceration along borders. Erythema without induration or elevation in skin temp noted.(L)2cm x (W )9.4cm. DTPI noted to R heel .Base of injury is indurated and maroon in colour. Periwound is firm without erythema. (L)1.5cm x (W)1cm.R heel without evidence of skin breakdown. Tx.Plan: Cleanse Sacrum with Saline. Loosely pack with Hydrogel impregnated Kerlix. Apply Triad Paste periwound. Cover with ABD pad. Daily and prn. Cleanse R and L ischial wounds with Saline. Apply Moisture Barrier Paste.Cover with abd pads Daily and prn. Apply Moisture Barrier to skin erosions on buttocks,scrotum, and posterior aspects of both thighs.Cover with ABD pad daily and prn. Cleanse wound L hip with Saline. Apply Moisture Barrier paste .Cover with Optifoam drsg Daily and prn. Cleanse wound posterior upper L thigh with saline .Apply Hydrogel. Cover with Optifoam drsg Daily and prn. Apply Cavilon Skin Barrier to L earlobe daily. Please monitor. Apply Cavilon Skin Barrier to L heel. Cover with Optifoam drsg. Change every 7 days and prn. Apply Cavilon Skin Barrier to R heel. Cover with Optifoam drsg .Change every 7 days and prn. Air fluidized mattress. Reposition every 2hours or as tolerated. Off-load heels with pillow. (2) Acute and chronic respiratory failure Assessment & Plan: cont with breathing treatments trach stable trach site clean will change dressings daily (3) Acute pancreatitis Assessment & Plan: Findings consistent with uncomplicated nonnecrotizing acute pancreatitis. No evidence of associated peripancreatic abscess Surgical changes as described, including right lower quadrant ileostomy, subtotal colectomy with Haroldo procedure. Wall thickening of the Haroldo pouch. This could indicate inflammation. However, this is also present on both of the prior 2 exams and may be baseline for this patient Evidence of mild anasarca, with edema of the subcutaneous fat. This is a new finding Chronic appearing decubitus changes of the bilateral ischia. Correlate with clinical findings Complete left lower lobe consolidation. This is similar to both of the prior CTs , and is likely a chronic finding. There is progressive chronic interstitial fibrotic change involving the right middle lobe. There is also right lower lobe granulomatous calcification Extensive pulmonary parenchymal opacities bilaterally may reflect acute inflammation/infection, edema, progressive chronic scarring, or combination of the above. These are considerably more extensive than on the prior study Trace bilateral pleural fluid New finding of nonobstructive right renal collecting system calculs 4 mm calculus within the bladder lumen. This may represent a bladder calculus, a calculus and left ureteral orifice, or recently passed stone. If either of the latter, no evidence of resultant hydronephrosis or hydroureter Suprapubic catheter. This is a new finding since the 2016 exams. Interim removal of previously demonstrated Bledsoe catheter Gastrostomy Left renal cysts. Subcentimeter low-attenuation right renal lesions, too small to characterize, most likely benign simple cysts. No further follow-up necessary elevated amylase/lipase trending down leukocytosis GNR Bacteremia transfused anemia Unfortunately patient not able to participate in exam and difficult to identify if clinically pancreatitis or just laboratory data. Recent CT with uncomplicated pancreatitis but enzymes still remain elevated. Patient tolerated tube feeds. Patient with gram-negative belle bacteremia likely from UTI. Patient remains febrile intermittently with worsening leukocytosis on IV antibiotics. -no acute surgical intervention planned -transfuse as per hematology -Abx as per ID -trend lip/[place] - recent finding based on CT given patient cannot given history or participate in exam. CT with uncomplicated pancreatitis. okay for diet / feeds for now. IV fluids Javier Ricardo Dec 23, 2018 14:56
[2018-12-23] MEDS ORDERED: Pamidronate Disodium Inj 90 MG in Sodium Chloride 550 ML IVPB ONE (15:00)
--- NOTE | 2018-12-23 15:09 | Infectious Diseases Prog Note ---
Assessment/Plan Assessment/Plan Assessment: Gram positive bacteremia- PICC line infection - -12/20 1/ E. fecalis (S Van, amp), 1/2 S.aureus (sensi pending) PICC line; Peripheral NTD; 12/21 Bcx NTD Severe Sepsis 2ry to GNR, sp Rx -12/21 CXR: Bilateral interstitial and airspace opacities, associated bronchiectasis are again demonstrated. There is blunting of the left costophrenic sulcus again demonstrated. -12/17 CXR: No significant interval change in the diffuse patchy bilateral reticular interstitial and airspace opacities. -CXR: Probable small left pleural effusion, also evident on prior study 2017. Bilateral interstitial disease, unchanged, suspect chronic. Correlate with clinical findings -sp CX MDR PsA (S Gentamicin, AMikacin, Cefepime, Aztreonam, Tobramycin); repeats sp cx 12/20 MRSA; likely colonzier as vent settings stable GNR bacteremia, likely from UTI -CT abd/p: Findings consistent with uncomplicated nonnecrotizing acute pancreatitis. No evidence of associated peripancreatic abscess Surgical changes as described, including right lower quadrant ileostomy, subtotal colectomy with Haroldo procedure. Wall thickening of the Haroldo pouch. This could indicate inflammation. However, this is also present on both of the prior 2 exams and may be baseline for this patien. Evidence of mild anasarca, with edema of the subcutaneous fat. This is a new finding. Chronic appearing decubitus changes of the bilateral ischia. Correlate with clinical findings. Complete left lower lobe consolidation. This is similar to both of the prior CTs, andis likely a chronic finding. There is progressive chronic interstitial fibrotic change involving the right middle lobe. There is also right lower lobe granulomatous calcification, Extensive pulmonary parenchymal opacities bilaterally may reflect acute inflammation/infection, edema, progressive chronic scarring, orcombination of the above. These are considerably more extensive than on the prior study -u/a 10-15, nit neg, luek +3; ucx 50-60k Enterococcus (Vanco resist; S AMp), 40-50 K Proteus -3/6 Bcx 3/4 Proteus; 12/08 Bcx 1/4 Proteus (S Aztreonam; R Cipro, levo; I Imipenem); Acute pancreatitis -lipase ~1k Fever - recurrent- in the setting of bacteremia and pancreaitis; improving Leukocytosis , resolved--in the setting of bacteremia, UTI and acute pancreatitis CONS bacteremia- likely contaminant -12/12 Bcx 1/ CONS; 12/14 Bcx Neg Hyponatremia, improving MAULIK, improving dysphagia s/p peg COPD GBS quadriplegia chronic resp failure s/p trach HTN CVA, nonverbal anemia SNF resident Plan: -Linezolid #3 pending ID strep bacteremia -12/22 SP Aztreonam #14 -12/21 SP INH tobramycin #7 -12/16 SP IV Daptomycin #7 -f/u Repeat cultures -Remove PICC line and place peripheral -Monitor CBC/CMP, temperatures -PEG/Trach care -Aspiration precautions -management of acute pancreatitis per primary team. Will continue to follow along with you. Discussed with RN. Subjective Allergies: Coded Allergies: PENICILLINS (Unverified Allergy, Unknown, 02/26/16) POLYMYXIN B (Unverified Allergy, Unknown, 02/26/16) VANCOMYCIN (Unverified Allergy, Unknown, 02/26/16) Subjective afebrile > 48 hrs leukocytosis mild bacteremic w/ S.aureus and E. fecalis Objective Vital Signs Last 24 Hour Vital Signs Date Time Temp Pulse Resp B/P (MAP) Pulse Ox O2 Delivery O2 Flow Rate FiO2 12/23/18 13:17 112 29 35 12/23/18 10:50 114 31 35 12/23/18 09:10 111 31 35 12/23/18 09:04 111 12/23/18 09:00 111 94/62 12/23/18 09:00 111 94/62 12/23/18 08:00 99.8 111 29 94/62 (73) 98 12/23/18 08:00 Mechanical Ventilator 12/23/18 08:00 35 12/23/18 08:00 108 12/23/18 06:40 109 29 35 12/23/18 04:00 106 12/23/18 04:00 99.1 109 29 107/60 (76) 97 12/23/18 04:00 Mechanical Ventilator 12/23/18 04:00 35 12/22/18 21:18 100 29 35 12/22/18 20:44 88 94/65 12/22/18 20:00 97.5 92 22 104/55 (71) 99 12/22/18 20:00 Mechanical Ventilator 12/22/18 20:00 93 12/22/18 20:00 35 12/22/18 19:19 90 25 35 12/22/18 17:23 89 94/67 12/22/18 17:17 92 29 35 12/22/18 16:15 Mechanical Ventilator 12/22/18 16:00 90 12/22/18 16:00 98.0 89 26 94/67 (76) 98 12/22/18 16:00 35 12/22/18 15:29 90 30 35 Height (Feet): 5 Height (Inches): 8.00 Weight (Pounds): 141 Objective HEENT: Eyes were normal. ENT, mucous membranes were not dehydrated. NECK: Supple. There was no goiter. No mass. No lymphadenopathy. There was no JVD. No bruits. Carotid upstroke was 2+. LUNGS: Clear. HEART: PMI was in the fifth left intercostal space in midclavicular line. There was normal S1 and normal S2. There was no murmur. No arrhythmia. No S3. No S4. No pericardial rub. ABDOMEN: Soft and nontender without organomegaly. There were no masses palpable. Normal bowel sounds without bruits. There was no guarding. No rebound tenderness. No ascites. No hernia. No CVA tenderness. EXTREMITIES: No cyanosis, no clubbing, and no edema. Extremities were warm. Microbiology Date/Time Source Procedure Growth Status 12/21/18 17:00 Blood Blood Culture - Preliminary NO GROWTH AFTER 24 HOURS Resulted 12/21/18 15:50 Blood Blood Culture - Preliminary NO GROWTH AFTER 24 HOURS Resulted Laboratory Tests Test 12/23/18 04:00 12/23/18 09:30 White Blood Count 11.0 K/UL (4.8-10.8) H Red Blood Count 2.57 M/UL (4.70-6.10) L Hemoglobin 7.8 G/DL (14.2-18.0) L Hematocrit 24.6 % (42.0-52.0) L Mean Corpuscular Volume 96 FL (80-99) Mean Corpuscular Hemoglobin 30.3 PG (27.0-31.0) Mean Corpuscular Hemoglobin Concent 31.7 G/DL (32.0-36.0) L Red Cell Distribution Width 15.9 % (11.6-14.8) H Platelet Count 305 K/UL (150-450) Mean Platelet Volume 10.2 FL (6.5-10.1) H Neutrophils (%) (Auto) % (45.0-75.0) Lymphocytes (%) (Auto) % (20.0-45.0) Monocytes (%) (Auto) % (1.0-10.0) Eosinophils (%) (Auto) % (0.0-3.0) Basophils (%) (Auto) % (0.0-2.0) Differential Total Cells Counted 100 Neutrophils % (Manual) 76 % (45-75) H Lymphocytes % (Manual) 12 % (20-45) L Monocytes % (Manual) 11 % (1-10) H Eosinophils % (Manual) 0 % (0-3) Basophils % (Manual) 1 % (0-2) Band Neutrophils 0 % (0-8) Platelet Estimate Adequate Platelet Morphology Normal Hypochromasia 3+ Anisocytosis 1+ Sodium Level 147 MMOL/L (136-145) H Potassium Level 4.4 MMOL/L (3.5-5.1) Chloride Level 113 MMOL/L (98-107) H Carbon Dioxide Level 20 MMOL/L (21-32) L Anion Gap 14 mmol/L (5-15) Blood Urea Nitrogen 56 mg/dL (7-18) H Creatinine 1.0 MG/DL (0.55-1.30) Estimat Glomerular Filtration Rate mL/min (>60) Glucose Level 221 MG/DL (74-106) H Calcium Level 10.7 MG/DL (8.5-10.1) H Phosphorus Level 2.9 MG/DL (2.5-4.9) Magnesium Level 1.7 MG/DL (1.8-2.4) L Total Bilirubin 0.1 MG/DL (0.2-1.0) L Aspartate Amino Transf (AST/SGOT) 15 U/L (15-37) Alanine Aminotransferase (ALT/SGPT) 11 U/L (12-78) L Alkaline Phosphatase 118 U/L (46-116) H Total Protein 8.1 G/DL (6.4-8.2) Albumin 1.1 G/DL (3.4-5.0) L Globulin 7.0 g/dL Albumin/Globulin Ratio 0.2 (1.0-2.7) L Lipase 483 U/L (73-393) H Stool Occult Blood Negative (NEGATIVE) Current Medications Medications (Trade) Dose Ordered Sig/Fransisco Route PRN Reason Start Time Stop Time Status Last Admin Dose Admin Acetaminophen (Tylenol) 650 mg Q4H PRN GT For Pain 12/07/18 17:00 01/06/19 16:59 12/21/18 04:06 Acetaminophen (Tylenol) 650 mg Q4H PRN GT fever 12/10/18 09:45 01/06/19 16:59 12/21/18 17:22 Atenolol (Tenormin) 25 mg Q12HR GT 12/23/18 21:00 01/22/19 20:59 Chlorhexidine Gluconate (Sandra-Hex 2%) 1 applic DAILY@1999 TOPIC 12/10/18 20:00 01/09/19 19:59 12/22/18 20:38 Dextrose (Dextrose 50%) 25 ml Q30M PRN IV Hypoglycemia 12/10/18 14:00 01/09/19 13:59 Dextrose (Dextrose 50%) 50 ml Q30M PRN IV Hypoglycemia 12/10/18 14:00 01/09/19 13:59 Digoxin (Lanoxin) 0.25 mg DAILY GT 12/12/18 09:00 01/10/19 08:59 12/23/18 09:04 Diltiazem HCl (Cardizem) 10 mg BIDPRN PRN IVP FOR HR >140 12/12/18 08:45 01/11/19 08:44 Diltiazem HCl (Cardizem) 30 mg BID GT 12/22/18 18:00 01/10/19 17:59 Gemfibrozil (Lopid) 600 mg TWICE A DAY GT 12/15/18 10:15 01/14/19 10:14 12/23/18 09:04 Heparin Sodium (Porcine) (Heparin 5000 units/ml) 5,000 units EVERY 12 HOURS SUBQ 12/07/18 21:00 01/06/19 20:59 12/22/18 20:44 Insulin Aspart (NovoLOG) EVERY 4 HOURS SUBQ 12/12/18 05:00 01/09/19 04:59 3/22/19 12:21 Lansoprazole (Prevacid) 30 mg DAILY GT 12/17/18 09:00 01/16/19 08:59 12/23/18 09:04 Linezolid (Zyvox) 600 mg EVERY 12 HOURS GT 12/23/18 21:00 12/28/18 20:59 Metformin HCl (Glucophage) 500 mg BID GT 12/23/18 18:00 01/22/19 17:59 Nateglinide (Starlix) 120 mg Q8HR ORAL 12/18/18 22:00 01/17/19 21:59 12/23/18 13:47 Nitroglycerin (Ntg) 0.4 mg Q5M PRN SL Prn Chest Pain 12/07/18 17:00 01/06/19 16:59 Ondansetron HCl (Zofran) 4 mg Q6H PRN IVP Nausea & Vomiting 12/07/18 17:00 01/06/19 16:59 Pamidronate Disodium 90 mg/ Sodium Chloride 550 ml @ 137.5 mls/ hr ONCE ONCE IVPB 12/23/18 15:00 12/23/18 18:59 Polyethylene Glycol (Miralax) 17 gm DAILYPRN PRN GT Constipation 12/10/18 09:45 01/06/19 16:59 Aminah Champagne M.D. Dec 23, 2018 15:09
[2018-12-23 16:00] VITALS: BP 116/64
--- NOTE | 2018-12-23 16:30 | NUR ---
NURSE NOTES: Patient noted with an oral temperature of 101.9, a 1.8 F increase from base vital signs before beginning blood transfusion of 1 unit PRBC. Blood transfusion immediately stopped. Vital signs reassessed BP 116/64 HR 108, Temp. 101.8 F oral. Immediately notified blood bank. Immediately notified Dr. Guerra who is ordering physician, aware, followed facility protocol for adverse blood transfusion reaction. Collected PRBC, normal saline bag and tubing and sent to lab. Transfusion reaction labs ordered. Dr. Hutchins is aware. Dr. Champagne is aware. Will continue to monitor patient.
--- NOTE | 2018-12-23 16:34 | General Progress Note ---
Assessment/Plan Assessment/Plan Assessment/Recs: # Leukocytosis/Elevated white blood cell count, unspecified likely related to underlying stress reaction, smoking, or underlying infection (especially if bandemia is noted) --> have reviewed peripheral smear and bandemia/neutrophilia noted --> continue antibiotics if they have been started by ID team, titrate as needed --> monitor for resolution ---> WBC trend: 11-->16-->15-->14-->11-->12-->10.8-->11 # Anemia of chronic disease due to underlying chronic medical issues, multifactorial --> Anemia workup has been reviewed, Ferritin 1573 --> No evidence of hemolysis is noted, peripheral smear has been reviewed. --> Hgb goal >7. Transfuse prn. --> Epogen or iron at this time is not particularly indicated --> Medications have been reviewed --> HGB trend: 7.8-->7.6-->6.2-->6.4->7.1-->8.7-->9.1-->8.4-->7.8 # Thrombocytopenia - potential causes multifactorial, evaluate liver and viral etiologies to begin, also could be related to underlying medications --> Hep panel and HIV negative --> US abd to evaluate for cirrhosis and hsm reviewed --> Peripheral smear ordered to evaluate for blasts/schistocytes --> abx and other meds have been reviewed --> ok for ppx if plt >50k w/ either heparin or lovenox --> Transfuse if Plt < 20k and fever, or if Plt < 10k without fever # Severe prerenal azotemia, on ivf --> improve po oral intake and consider appetite stimulant # Severe Sepsis, CXR: Probable small left pleural effusion, also evident on prior study 11/22/2017 --> appreciate ID recs # Bacteremia, likely from UTI, PNA --> tolerating abx well --> as per pulm The timing of this note does not necessarily reflect the time of the patient was seen. Greatly appreciate consultation! Subjective Constitutional: Denies: no symptoms, chills, diaphoresis, fever, malaise, weakness, other HEENT: Denies: no symptoms, eye pain, blurred vision, tearing, double vision, ear pain, ear discharge, nose pain, nose congestion, throat pain, throat swelling, mouth pain, mouth swelling, other Respiratory: Denies: no symptoms, cough, orthopnea, shortness of breath, SOB with excertion, SOB at rest, sputum, stridor, wheezing, other Gastrointestinal/Abdominal: Denies: no symptoms, abdomen distended, abdominal pain, black stools, tarry stools, blood in stool, constipated, diarrhea, difficulty swallowing, nausea, poor appetite, poor fluid intake, rectal bleeding , vomiting, other Neurologic/Psychiatric: Denies: no symptoms, anxiety, depressed, emotional problems, headache, numbness, paresthesia, pre-existing deficit, seizure, tingling, tremors, weakness, other Endocrine: Denies: no symptoms, excessive sweating, flushing, intolerance to cold, intolerance to heat, increased hunger, increased thirst, increased urine, unexplained weight gain, unexplained weight loss, other Hematologic/Lymphatic: Denies: no symptoms, anemia, easy bleeding, easy bruising, other Allergies: Coded Allergies: PENICILLINS (Unverified Allergy, Unknown, 02/26/16) POLYMYXIN B (Unverified Allergy, Unknown, 02/26/16) VANCOMYCIN (Unverified Allergy, Unknown, 02/26/16) Subjective 12/11: seen by bedside, vent dependent, leukocytosis, 11, hgb 7, will transfuse, no events 12/12: awake, comfortable wbc trending up at 16, no events 12/13: hgb 6.4, receiving transfusion, , wbc remains elevated. no acute events 12/14: seen by bedside, awake, comfortable low grade fever, wbc remains elevated at 15, bacteremia on IV Abx, hgb 7.1, will transfuse as needed 12/15: Wbc remains elevated, no events reported, hgb trending up 12/16: seen by bedside, awake, comfortable, no events 12/18: seen in the room, on vent and trach, no events 12/19: reviewed cbc and appears relatively stable, on starlix, remains in sdu 12/20: seen by bedside, on vent, mild leukocytosis 12/21: Pt is resting , on vent, wbc trending up , no events 12/22: exam is essentially unchanged, on abx, have discussed with pcp, rn, wbc better 12/23: transfuse wbc 11, on abx Objective Last 24 Hour Vital Signs Date Time Temp Pulse Resp B/P (MAP) Pulse Ox O2 Delivery O2 Flow Rate FiO2 12/23/18 14:30 108 29 35 12/23/18 13:17 112 29 35 12/23/18 13:00 35 12/23/18 12:00 Mechanical Ventilator 12/23/18 12:00 98.3 110 29 105/66 (79) 98 12/23/18 12:00 112 12/23/18 12:00 35 12/23/18 10:50 114 31 35 12/23/18 09:10 111 31 35 12/23/18 09:04 111 12/23/18 09:00 111 94/62 12/23/18 09:00 111 94/62 12/23/18 08:00 99.8 111 29 94/62 (73) 98 12/23/18 08:00 Mechanical Ventilator 12/23/18 08:00 35 12/23/18 08:00 108 12/23/18 06:40 109 29 35 12/23/18 04:00 106 12/23/18 04:00 99.1 109 29 107/60 (76) 97 12/23/18 04:00 Mechanical Ventilator 12/23/18 04:00 35 12/22/18 21:18 100 29 35 12/22/18 20:44 88 94/65 12/22/18 20:00 97.5 92 22 104/55 (71) 99 12/22/18 20:00 Mechanical Ventilator 12/22/18 20:00 93 12/22/18 20:00 35 12/22/18 19:19 90 25 35 12/22/18 17:23 89 94/67 12/22/18 17:17 92 29 35 Intake and Output 12/22/18 12/23/18 18:59 06:59 Intake Total 905 ml 410 ml Output Total 890 ml 900 ml Balance 15 ml -490 ml Intake Free Water 420 ml 150 ml IV Total 110 ml 55 ml Tube Feeding 375 ml 205 ml Output Urine Total 525 ml 600 ml Stool Total 365 ml 300 ml Laboratory Tests 12/23/18 04:00: White Blood Count 11.0H, Red Blood Count 2.57L, Hemoglobin 7.8L, Hematocrit 24.6L, Mean Corpuscular Volume 96, Mean Corpuscular Hemoglobin 30.3, Mean Corpuscular Hemoglobin Concent 31.7L, Red Cell Distribution Width 15.9H, Platelet Count 305, Mean Platelet Volume 10.2H, Neutrophils (%) (Auto) , Lymphocytes (%) (Auto) , Monocytes (%) (Auto) , Eosinophils (%) (Auto) , Basophils (%) (Auto) , Differential Total Cells Counted 100, Neutrophils % ( Manual) 76H, Lymphocytes % (Manual) 12L, Monocytes % (Manual) 11H, Eosinophils % (Manual) 0, Basophils % (Manual) 1, Band Neutrophils 0, Platelet Estimate Adequate, Platelet Morphology Normal, Hypochromasia 3+, Anisocytosis 1+, Sodium Level 147H, Potassium Level 4.4, Chloride Level 113H, Carbon Dioxide Level 20L, Anion Gap 14, Blood Urea Nitrogen 56H, Creatinine 1.0, Estimat Glomerular Filtration Rate , Glucose Level 221H, Calcium Level 10.7H, Phosphorus Level 2.9 , Magnesium Level 1.7L, Total Bilirubin 0.1L, Aspartate Amino Transf (AST/SGOT) 15, Alanine Aminotransferase (ALT/SGPT) 11L, Alkaline Phosphatase 118H, Total Protein 8.1, Albumin 1.1L, Globulin 7.0, Albumin/Globulin Ratio 0.2L, Lipase 483H 12/23/18 09:30: Stool Occult Blood Negative Height (Feet): 5 Height (Inches): 8.00 Weight (Pounds): 141 Objective Physical Exam HEENT: Eyes were normal. ENT, mucous membranes were not dehydrated. NECK: Supple. There was no goiter. No mass. No lymphadenopathy. There was no JVD. No bruits. Carotid upstroke was 2+. LUNGS: Clear. Vent++ HEART: PMI was in the fifth left intercostal space in midclavicular line. There was normal S1 and normal S2. There was no murmur. no s3/s4 ABDOMEN: Soft and nontender without organomegaly. There were no masses palpable. Normal bowel sounds without bruits. There was no guarding. No rebound tenderness. No ascites. No hernia. No CVA tenderness. Liver span was 8 cm, mostly nontender. EXTREMITIES: No cyanosis, no clubbing, and no edema. Extremities warm. Adarsh Kim MD Dec 23, 2018 16:34
--- NOTE | 2018-12-23 17:00 | NUR ---
NURSE NOTES: Reassessed patient's temperature. Patient's new temperature is 98.8 F oral. Noted. BP is 108/68, HR 105, Temp 98.8 F oral. No flushing, no diaphoresis noted, no SOB noted. Will continue to monitor patient.
[2018-12-23] MEDS: metFORMIN 500mg tab GT SCH (17:21)
--- NOTE | 2018-12-23 17:21 | NUR ---
[employer] SI: SEPSIS. A/C RESP FAILURE VS: BP 105/66, P 114, T 98.3, RR 31, SpO2 98 on VENT FiO2 35 WBC 11.0, Hgb 7.8, Hct 24.6, Na 147, BUN 56 CXR Findings: Bilateral interstitial and airspace opacities, associated bronchiectasis IS:METFORMIN 500mg CARDIZEM 30mg GT STARLIX 120mg PREVACID 30mg LOPID 600mg DIGOXIN 0.25mg GT NOVOLOG SUBQ SDU STATUS
--- NOTE | 2018-12-23 18:00 | NUR ---
NURSE NOTES: Left upper arm PICC is removed per Dr. Champagne's orders. PICC line tubing is intact, PICC line tip is intact. 5 minutes of continuous pressure applied. No active bleeding is noted at PICC site. Pressure dressing applied. Will continue to monitor patient.
--- NOTE | 2018-12-23 19:00 | NUR ---
RESPIRATORY NOTE: Received pt. on 840 vent. Vent settings are: A/C rate of 18, Vt 500, FI02 35%, PEEP +5. No respiratory distress noted, Pt. Sp02 @ 98%. Ambu bag @ BS. Vent plugged on red outlet. Will continue to monitor pt.
--- NOTE | 2018-12-23 19:24 | Cardiology Progress Note ---
Assessment/Plan Assessment/Plan 1. Supraventricular tachycardia. recurrent 12/09 and 12/10 2. Renal insufficiency. 3. Hyponatremia. 4. Chronic ventilator dependence. 5. Guillain-Cashmere syndrome. 6. History of bowel resection. 7. History of CVA. 8. Chronic tracheostomy. 9. Diabetes mellitus. 10 pancreatitis 11. anemai bp borderline cortisol was normal on low dose Cardizem via gtube and dig and atenolol dig level 0.9 on 12/16 no further svt on the present regimen heart rate stable tele looks ok hodl parameter for low bp added dig level in am d/w rn tranfusion reaction todaywith fever , picc line infection Subjective ROS Limited/Unobtainable: Yes Subjective on the vent Objective Last 24 Hour Vital Signs Date Time Temp Pulse Resp B/P (MAP) Pulse Ox O2 Delivery O2 Flow Rate FiO2 12/23/18 17:21 108 116/64 12/23/18 17:00 107 28 35 12/23/18 16:00 Mechanical Ventilator 12/23/18 15:30 108 12/23/18 14:30 108 29 35 12/23/18 13:17 112 29 35 12/23/18 13:00 35 12/23/18 12:00 Mechanical Ventilator 12/23/18 12:00 98.3 110 29 105/66 (79) 98 12/23/18 12:00 112 12/23/18 12:00 35 12/23/18 10:50 114 31 35 12/23/18 09:10 111 31 35 12/23/18 09:04 111 12/23/18 09:00 111 94/62 12/23/18 09:00 111 94/62 12/23/18 08:00 99.8 111 29 94/62 (73) 98 12/23/18 08:00 Mechanical Ventilator 12/23/18 08:00 35 12/23/18 08:00 108 12/23/18 06:40 109 29 35 12/23/18 04:00 106 12/23/18 04:00 99.1 109 29 107/60 (76) 97 12/23/18 04:00 Mechanical Ventilator 12/23/18 04:00 35 12/22/18 21:18 100 29 35 12/22/18 20:44 88 94/65 12/22/18 20:00 97.5 92 22 104/55 (71) 99 12/22/18 20:00 Mechanical Ventilator 12/22/18 20:00 93 12/22/18 20:00 35 General Appearance: no apparent distress, alert, on vent, patient on isolation Extremities: no swelling Intake and Output 12/22/18 12/23/18 18:59 06:59 Intake Total 905 ml 410 ml Output Total 890 ml 900 ml Balance 15 ml -490 ml Intake Free Water 420 ml 150 ml IV Total 110 ml 55 ml Tube Feeding 375 ml 205 ml Output Urine Total 525 ml 600 ml Stool Total 365 ml 300 ml Laboratory Tests Test 12/23/18 04:00 12/23/18 09:30 White Blood Count 11.0 K/UL (4.8-10.8) H Red Blood Count 2.57 M/UL (4.70-6.10) L Hemoglobin 7.8 G/DL (14.2-18.0) L Hematocrit 24.6 % (42.0-52.0) L Mean Corpuscular Volume 96 FL (80-99) Mean Corpuscular Hemoglobin 30.3 PG (27.0-31.0) Mean Corpuscular Hemoglobin Concent 31.7 G/DL (32.0-36.0) L Red Cell Distribution Width 15.9 % (11.6-14.8) H Platelet Count 305 K/UL (150-450) Mean Platelet Volume 10.2 FL (6.5-10.1) H Neutrophils (%) (Auto) % (45.0-75.0) Lymphocytes (%) (Auto) % (20.0-45.0) Monocytes (%) (Auto) % (1.0-10.0) Eosinophils (%) (Auto) % (0.0-3.0) Basophils (%) (Auto) % (0.0-2.0) Differential Total Cells Counted 100 Neutrophils % (Manual) 76 % (45-75) H Lymphocytes % (Manual) 12 % (20-45) L Monocytes % (Manual) 11 % (1-10) H Eosinophils % (Manual) 0 % (0-3) Basophils % (Manual) 1 % (0-2) Band Neutrophils 0 % (0-8) Platelet Estimate Adequate Platelet Morphology Normal Hypochromasia 3+ Anisocytosis 1+ Sodium Level 147 MMOL/L (136-145) H Potassium Level 4.4 MMOL/L (3.5-5.1) Chloride Level 113 MMOL/L (98-107) H Carbon Dioxide Level 20 MMOL/L (21-32) L Anion Gap 14 mmol/L (5-15) Blood Urea Nitrogen 56 mg/dL (7-18) H Creatinine 1.0 MG/DL (0.55-1.30) Estimat Glomerular Filtration Rate mL/min (>60) Glucose Level 221 MG/DL (74-106) H Calcium Level 10.7 MG/DL (8.5-10.1) H Phosphorus Level 2.9 MG/DL (2.5-4.9) Magnesium Level 1.7 MG/DL (1.8-2.4) L Total Bilirubin 0.1 MG/DL (0.2-1.0) L Aspartate Amino Transf (AST/SGOT) 15 U/L (15-37) Alanine Aminotransferase (ALT/SGPT) 11 U/L (12-78) L Alkaline Phosphatase 118 U/L (46-116) H Total Protein 8.1 G/DL (6.4-8.2) Albumin 1.1 G/DL (3.4-5.0) L Globulin 7.0 g/dL Albumin/Globulin Ratio 0.2 (1.0-2.7) L Lipase 483 U/L (73-393) H Stool Occult Blood Negative (NEGATIVE) Microbiology Date/Time Source Procedure Growth Status 12/21/18 17:00 Blood Blood Culture - Preliminary NO GROWTH AFTER 24 HOURS Resulted 12/21/18 15:50 Blood Blood Culture - Preliminary NO GROWTH AFTER 24 HOURS Resulted Donny Kelley MD Dec 23, 2018 19:24
--- NOTE | 2018-12-23 19:28 | NUR ---
HAND-OFF: Report given to SHAKIR Alexander.
--- NOTE | 2018-12-23 19:30 | NUR ---
NURSE NOTES: Report received from SHAKIR Watkins. Observed pt sleeping on the bed. ST with security monitor, HR of 106. GT intact and patent, running Nepro at 35cc/hr. Suprapubic intact and draining well, yellow urine noted. Colostomy bag noted, stoma pink and red, dark stool noted. IV on R FA 22G, intact and patent. Bed in the lowest position. Side rails up x3. Will continue to monitor.
[2018-12-23 20:00] VITALS: BP 105/56
[2018-12-23] MEDS: Dyna-Hex 2% Top Sol 2oz TOPIC SCH (20:00)
[2018-12-23] MEDS ORDERED: Atenolol 25mg tab GT SCH (21:00)
[2018-12-23] MEDS: Atenolol 25mg tab GT SCH (21:04)
[2018-12-24] VITALS: BP 101/61
[2018-12-24] MEDS: NovoLOG Insulin Flexpen SUBQ SCH ×6 (01:34→22:21)
--- NOTE | 2018-12-24 02:00 | NUR ---
NURSE NOTES: Observed pt sleeping on the bed. No acute distress noted at this time. No signs of fever noted. Will continue to monitor.
--- NOTE | 2018-12-24 02:30 | Progress Note ---
DATE: 12/23/2018 SUBJECTIVE: The patient is awake and alert with low-grade fever without acute distress. This morning, the patient with a temperature of 98.2 spiked fever to 100.8 and heart rate above 110. The patient received cooling measures. In addition, the patient's PICC line has been removed, suspected of being infected. PHYSICAL EXAMINATION: VITAL SIGNS: Blood pressure is 105/66, his pulse is 110, respirations of 29, and temperature of 98.3. HEENT: Eyes were normal. ENT, mucous membranes were moist and intact. NECK: Supple with no JVD without lymph nodes. Tracheostomy site is clean. LUNGS: Clear without rhonchi, rales, or wheezing. Secretions are moderate to thick and pale yellow. HEART: Normal sounds with regular beats. There is tachycardia at rest. Sinus tachycardia on monitor. ABDOMEN: Soft and nontender with normal bowel sounds. Gastrostomy site is clean. EXTREMITIES: Warm without cyanosis, clubbing, or edema. LABORATORY AND DIAGNOSTIC DATA: His hemoglobin is 7.8, hematocrit 24.3 with MCV of 96, WBC of 11.0, and platelets 305. WBC was 10.8 yesterday. His H and H was 8.4 and 26.5. His BUN and creatinine are 66 and 1.0 respectively. His sodium is 147, potassium 4.4, chloride 113, and CO2 is 29. His calcium is 10.7, phosphorus is 2.9 and magnesium is 1.7. IMPRESSION AND PLAN: The patient . In addition, the patient's PICC line will be replaced. The patient's lipase has declined from 672 on 12/19/2018 to 483 on 12/23/2018. Repeat laboratory tests will be done in the a.m. Neema Hutchins M.D. DR: PIERCE JOB#: [id number] CC:
[2018-12-24 04:00] VITALS: BP 99/60
[2018-12-24 05:23] LABS: BASOPHILS % (AUTO) 0.6 % (0.0-2.0); EOSINOPHILS % (AUTO) 1.7 % (0.0-3.0); HEMATOCRIT 29.8 % (42.0-52.0); HEMOGLOBIN 9.4 G/DL (14.2-18.0); LYMPHOCYTES % (AUTO) 10.2 % (20.0-45.0); MEAN CORPUSCULAR VOLUME 95 FL (80-99); MONOCYTES % (AUTO) 3.1 % (1.0-10.0); NEUTROPHILS % (AUTO) 84.3 % (45.0-75.0); PLATELET COUNT 289 K/UL (150-450); RED BLOOD COUNT 3.15 M/UL (4.70-6.10); RED CELL DISTRIBUTION WIDTH 15.6 % (11.6-14.8); WHITE BLOOD COUNT 12.2 K/UL (4.8-10.8)
[2018-12-24 05:41] LABS: ALANINE AMINOTRANSFERASE 11 U/L (12-78); ALBUMIN 1.2 G/DL (3.4-5.0); ALBUMIN/GLOBULIN RATIO 0.2 (1.0-2.7); ALKALINE PHOSPHATASE 124 U/L (46-116); AMYLASE 125 U/L (25-115); ANION GAP 14 mmol/L (5-15); ASPARTATE AMINO TRANSFERASE 19 U/L (15-37); BILIRUBIN,TOTAL 0.2 MG/DL (0.2-1.0); BLOOD UREA NITROGEN 55 mg/dL (7-18); CALCIUM 11.2 MG/DL (8.5-10.1); CARBON DIOXIDE 20 MMOL/L (21-32); CHLORIDE 113 MMOL/L (98-107); CREATININE 0.9 MG/DL (0.55-1.30); PHOSPHORUS 2.6 MG/DL (2.5-4.9); POTASSIUM 4.3 MMOL/L (3.5-5.1); SODIUM 147 MMOL/L (136-145)
--- NOTE | 2018-12-24 07:50 | NUR ---
HAND-OFF: Report given to SHAKIR Justice. No acute distress noted at this time.
--- NOTE | 2018-12-24 07:55 | NUR ---
NURSE NOTES: Report received from Donaldo SCHILLING.Pt awake,obtunded,noted no resp distress,with trach tube to vent,on current settings,tolerating well,no signs of pain or discomfort,SR on the monitor,GTF Nepro at 35 ml/hr,no residual noted,colostomy bag intact,with supra pubic cath draining yellow urine,IV site to RFA intact,skin warm and dry,SR up x2 HOB elevated ,bed lock in lowest position,will continue with plans of care.
[2018-12-24 08:00] VITALS: BP 95/52
[2018-12-24] MEDS: Atenolol 25mg tab GT SCH ×2 (09:00→21:45)
[2018-12-24] MEDS: dilTIAZem HCl 30mg tab GT SCH ×2 (09:00→17:38)
[2018-12-24] MEDS: metFORMIN 500mg tab GT SCH ×2 (09:21→17:37)
--- NOTE | 2018-12-24 09:26 | Infectious Diseases Prog Note ---
Assessment/Plan Assessment/Plan Assessment: Gram positive bacteremia- PICC line infection SP -Removal of PICC line - -12/20 1 E. fecalis (S Van, amp), 10/05 Staph A. PICC line; Peripheral NTD; 12/21 Bcx NTD Severe Sepsis 2ry to GNR, sp Rx -12/21 CXR: Bilateral interstitial and airspace opacities, associated bronchiectasis are again demonstrated. There is blunting of the left costophrenic sulcus again demonstrated. -12/17 CXR: No significant interval change in the diffuse patchy bilateral reticular interstitial and airspace opacities. -CXR: Probable small left pleural effusion, also evident on prior study 2017. Bilateral interstitial disease, unchanged, suspect chronic. Correlate with clinical findings -sp CX MDR PsA (S Gentamicin, AMikacin, Cefepime, Aztreonam, Tobramycin); repeats sp cx 12/20 MRSA; likely colonzier as vent settings stable GNR bacteremia, likely from UTI -CT abd/p: Findings consistent with uncomplicated nonnecrotizing acute pancreatitis. No evidence of associated peripancreatic abscess Surgical changes as described, including right lower quadrant ileostomy, subtotal colectomy with Haroldo procedure. Wall thickening of the Haroldo pouch. This could indicate inflammation. However, this is also present on both of the prior 2 exams and may be baseline for this patien. Evidence of mild anasarca, with edema of the subcutaneous fat. This is a new finding. Chronic appearing decubitus changes of the bilateral ischia. Correlate with clinical findings. Complete left lower lobe consolidation. This is similar to both of the prior CTs, andis likely a chronic finding. There is progressive chronic interstitial fibrotic change involving the right middle lobe. There is also right lower lobe granulomatous calcification, Extensive pulmonary parenchymal opacities bilaterally may reflect acute inflammation/infection, edema, progressive chronic scarring, orcombination of the above. These are considerably more extensive than on the prior study -u/a 10-15, nit neg, luek +3; ucx 50-60k Enterococcus (Vanco resist; S AMp), 40-50 K Proteus -3/6 Bcx 3/4 Proteus; 12/08 Bcx 1/4 Proteus (S Aztreonam; R Cipro, levo; I Imipenem); Acute pancreatitis -lipase ~1k Fever - recurrent- in the setting of bacteremia and pancreaitis; Leukocytosis , resolved--in the setting of bacteremia, UTI and acute pancreatitis CONS bacteremia- likely contaminant -12/12 Bcx 1/ CONS; 12/14 Bcx Neg MAULIK, improving dysphagia s/p peg COPD GBS quadriplegia chronic resp failure s/p trach HTN CVA, nonverbal anemia SNF resident Plan: -Linezolid # /- -12/22 SP Aztreonam # -12/21 SP INH tobramycin # -12/16 SP IV Daptomycin #7 -f/u Repeat cultures -Monitor CBC/CMP, temperatures -PEG/Trach care -Aspiration precautions -management of acute pancreatitis per primary team. Subjective Allergies: Coded Allergies: PENICILLINS (Unverified Allergy, Unknown, 02/26/16) POLYMYXIN B (Unverified Allergy, Unknown, 02/26/16) VANCOMYCIN (Unverified Allergy, Unknown, 02/26/16) Subjective fever yesterday afternoon Objective Vital Signs Last 24 Hour Vital Signs Date Time Temp Pulse Resp B/P (MAP) Pulse Ox O2 Delivery O2 Flow Rate FiO2 12/24/18 08:00 97.9 74 20 95/52 (66) 100 12/24/18 07:17 76 24 35 12/24/18 04:59 74 24 35 12/24/18 04:00 98.5 73 20 99/60 (73) 100 12/24/18 04:00 Mechanical Ventilator 12/24/18 04:00 69 12/24/18 04:00 35 12/24/18 03:30 68 19 35 12/24/18 01:27 75 31 35 12/24/18 00:00 98.9 72 30 101/61 (74) 99 12/24/18 00:00 Mechanical Ventilator 12/24/18 00:00 76 12/24/18 00:00 35 12/23/18 23:30 98 29 35 12/23/18 21:07 97 29 35 12/23/18 21:04 106 105/56 12/23/18 20:00 99.0 106 31 105/56 (72) 97 12/23/18 20:00 Mechanical Ventilator 12/23/18 20:00 35 12/23/18 20:00 108 12/23/18 19:00 96 30 35 12/23/18 18:00 98.8 12/23/18 17:21 108 116/64 12/23/18 17:00 107 28 35 12/23/18 16:00 101.9 112 29 116/64 (81) 97 12/23/18 16:00 Mechanical Ventilator 12/23/18 15:30 108 12/23/18 14:30 108 29 35 12/23/18 13:17 112 29 35 12/23/18 13:00 35 12/23/18 12:00 Mechanical Ventilator 12/23/18 12:00 98.3 110 29 105/66 (79) 98 12/23/18 12:00 112 12/23/18 12:00 35 12/23/18 10:50 114 31 35 Height (Feet): 5 Height (Inches): 8.00 Weight (Pounds): 141 HEENT: anicteric Respiratory/Chest: no respiratory distress Cardiovascular: regular rhythm Abdomen: soft, non tender Microbiology Date/Time Source Procedure Growth Status 12/21/18 17:00 Blood Blood Culture - Preliminary NO GROWTH AFTER 24 HOURS Resulted 12/21/18 15:50 Blood Blood Culture - Preliminary NO GROWTH AFTER 24 HOURS Resulted Laboratory Tests Test 12/23/18 09:30 12/24/18 04:50 Stool Occult Blood Negative (NEGATIVE) White Blood Count 12.2 K/UL (4.8-10.8) H Red Blood Count 3.15 M/UL (4.70-6.10) L Hemoglobin 9.4 G/DL (14.2-18.0) L Hematocrit 29.8 % (42.0-52.0) L Mean Corpuscular Volume 95 FL (80-99) Mean Corpuscular Hemoglobin 30.0 PG (27.0-31.0) Mean Corpuscular Hemoglobin Concent 31.7 G/DL (32.0-36.0) L Red Cell Distribution Width 15.6 % (11.6-14.8) H Platelet Count 289 K/UL (150-450) Mean Platelet Volume 10.3 FL (6.5-10.1) H Neutrophils (%) (Auto) 84.3 % (45.0-75.0) H Lymphocytes (%) (Auto) 10.2 % (20.0-45.0) L Monocytes (%) (Auto) 3.1 % (1.0-10.0) Eosinophils (%) (Auto) 1.7 % (0.0-3.0) Basophils (%) (Auto) 0.6 % (0.0-2.0) Erythrocyte Sedimentation Rate 61 MM/HR (0-20) H Sodium Level 147 MMOL/L (136-145) H Potassium Level 4.3 MMOL/L (3.5-5.1) Chloride Level 113 MMOL/L (98-107) H Carbon Dioxide Level 20 MMOL/L (21-32) L Anion Gap 14 mmol/L (5-15) Blood Urea Nitrogen 55 mg/dL (7-18) H Creatinine 0.9 MG/DL (0.55-1.30) Estimat Glomerular Filtration Rate mL/min (>60) Glucose Level 244 MG/DL (74-106) H Calcium Level 11.2 MG/DL (8.5-10.1) H Phosphorus Level 2.6 MG/DL (2.5-4.9) Magnesium Level 1.5 MG/DL (1.8-2.4) L Total Bilirubin 0.2 MG/DL (0.2-1.0) Aspartate Amino Transf (AST/SGOT) 19 U/L (15-37) Alanine Aminotransferase (ALT/SGPT) 11 U/L (12-78) L Alkaline Phosphatase 124 U/L (46-116) H C-Reactive Protein, Quantitative 25.3 mg/dL (0.00-0.90) H Total Protein 8.1 G/DL (6.4-8.2) Albumin 1.2 G/DL (3.4-5.0) L Globulin 6.9 g/dL Albumin/Globulin Ratio 0.2 (1.0-2.7) L Amylase Level 125 U/L (25-115) H Lipase 726 U/L (73-393) H Current Medications Medications (Trade) Dose Ordered Sig/Fransisco Route PRN Reason Start Time Stop Time Status Last Admin Dose Admin Acetaminophen (Tylenol) 650 mg Q4H PRN GT For Pain 12/07/18 17:00 01/06/19 16:59 12/21/18 04:06 Acetaminophen (Tylenol) 650 mg Q4H PRN GT fever 12/10/18 09:45 01/06/19 16:59 12/21/18 17:22 Atenolol (Tenormin) 25 mg Q12HR GT 12/23/18 21:00 01/22/19 20:59 12/23/18 21:04 Chlorhexidine Gluconate (Sandra-Hex 2%) 1 applic DAILY@2000 TOPIC 12/10/18 20:00 01/09/19 19:59 12/22/18 20:38 Dextrose (Dextrose 50%) 25 ml Q30M PRN IV Hypoglycemia 12/10/18 14:00 01/09/19 13:59 Dextrose (Dextrose 50%) 50 ml Q30M PRN IV Hypoglycemia 12/10/18 14:00 01/09/19 13:59 Digoxin (Lanoxin) 0.25 mg DAILY GT 12/12/18 09:00 01/10/19 08:59 12/23/18 09:04 Diltiazem HCl (Cardizem) 10 mg BIDPRN PRN IVP FOR HR >140 12/12/18 08:45 01/11/19 08:44 Diltiazem HCl (Cardizem) 30 mg BID GT 12/23/18 18:00 01/10/19 17:59 12/23/18 17:21 Gemfibrozil (Lopid) 600 mg TWICE A DAY GT 12/15/18 10:15 01/14/19 10:14 12/23/18 17:21 Heparin Sodium (Porcine) (Heparin 5000 units/ml) 5,000 units EVERY 12 HOURS SUBQ 12/07/18 21:00 01/06/19 20:59 12/23/18 21:05 Insulin Aspart (NovoLOG) EVERY 4 HOURS SUBQ 12/12/18 05:00 01/09/19 04:59 12/24/18 05:12 Lansoprazole (Prevacid) 30 mg DAILY GT 12/17/18 09:00 01/16/19 08:59 12/23/18 09:04 Linezolid (Zyvox) 600 mg EVERY 12 HOURS GT 12/23/18 21:00 12/28/18 20:59 12/23/18 21:03 Metformin HCl (Glucophage) 500 mg BID GT 12/23/18 18:00 01/22/19 17:59 12/23/18 17:21 Nateglinide (Starlix) 120 mg Q8HR ORAL 12/18/18 22:00 01/17/19 21:59 12/24/18 05:14 Nitroglycerin (Ntg) 0.4 mg Q5M PRN SL Prn Chest Pain 12/07/18 17:00 01/06/19 16:59 Ondansetron HCl (Zofran) 4 mg Q6H PRN IVP Nausea & Vomiting 12/07/18 17:00 01/06/19 16:59 Polyethylene Glycol (Miralax) 17 gm DAILYPRN PRN GT Constipation 12/10/18 09:45 01/06/19 16:59 Nelson Brand MD Dec 24, 2018 09:26
[2018-12-24] MEDS: Heparin 5000 units/ml inj SUBQ SCH ×2 (09:28→21:52)
--- NOTE | 2018-12-24 09:37 | Diagnostic Imaging Report ---
EXAM: XR Chest, 2 Views CLINICAL HISTORY: COPD TECHNIQUE: Frontal and lateral views of the chest. COMPARISON: Chest x-ray, 12/21/18 753 FINDINGS: Lungs: Bilateral interstitial and airspace opacities, worse in the right upper lobe, slightly worse than prior study. Pleural space: Similar left pleural effusion. No pneumothorax. Heart: Unremarkable. No cardiomegaly. Mediastinum: Unremarkable. Bones/joints: Unremarkable. Tubes, lines and devices: Tracheostomy tube. IMPRESSION: 1. Bilateral interstitial and airspace opacities, worse in the right upper lobe, slightly worse than prior study. 2. Similar left pleural effusion.
--- NOTE | 2018-12-24 10:05 | Pulmonolgy Critical Care Note ---
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 Respiratory: monitor respiratory rate, adjust FIO2 Cardiac: continue to monitor HR/BP Renal: F/U I&O, keep IV fluid Infectious Disease: check cultures Gastrointestinal: continue feedings/current rate Endocrine: check TSH Hematologic: transfuse if hgb<8.5 Neurologic: PRN Ativan, keep patient comfortable Affect: PRN ativan Prophylaxis: Protonix, Heparin Notes 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, 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, 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 with: nurses, consultants, case makermanager documentation - Objective Last 24 Hour Vital Signs Date Time Temp Pulse Resp B/P (MAP) Pulse Ox O2 Delivery O2 Flow Rate FiO2 12/24/18 09:20 74 12/24/18 09:00 74 95/52 12/24/18 09:00 74 95/52 12/24/18 08:00 97.9 74 20 95/52 (66) 100 12/24/18 07:17 76 24 35 12/24/18 04:59 74 24 35 12/24/18 04:00 98.5 73 20 99/60 (73) 100 12/24/18 04:00 Mechanical Ventilator 12/24/18 04:00 69 12/24/18 04:00 35 12/24/18 03:30 68 19 35 12/24/18 01:27 75 31 35 12/24/18 00:00 98.9 72 30 101/61 (74) 99 12/24/18 00:00 Mechanical Ventilator 12/24/18 00:00 76 12/24/18 00:00 35 12/23/18 23:30 98 29 35 12/23/18 21:07 97 29 35 12/23/18 21:04 106 105/56 12/23/18 20:00 99.0 106 31 105/56 (72) 97 12/23/18 20:00 Mechanical Ventilator 12/23/18 20:00 35 12/23/18 20:00 108 12/23/18 19:00 96 30 35 12/23/18 18:00 98.8 12/23/18 17:21 108 116/64 12/23/18 17:00 107 28 35 12/23/18 16:00 101.9 112 29 116/64 (81) 97 12/23/18 16:00 Mechanical Ventilator 12/23/18 15:30 108 12/23/18 14:30 108 29 35 12/23/18 13:17 112 29 35 12/23/18 13:00 35 12/23/18 12:00 Mechanical Ventilator 12/23/18 12:00 98.3 110 29 105/66 (79) 98 12/23/18 12:00 112 12/23/18 12:00 35 12/23/18 10:50 114 31 35 Status: awake Micro: Microbiology Date/Time Source Procedure Growth Status 12/21/18 17:00 Blood Blood Culture - Preliminary NO GROWTH AFTER 48 HOURS Resulted 12/21/18 15:50 Blood Blood Culture - Preliminary NO GROWTH AFTER 48 HOURS Resulted Accucheck: 355 Critical Care - Subjective ROS Limited/Unobtainable: Yes Interval Events: comfortable, had fever of 101 yesterday Condition: critical EKG Rhythm: Sinus Rhythm FI02: 35 Vent Support Breath Rate: 18 Vent Support Mode: AC Vent Tidal Volume: 500 Sputum Amount: Small PEEP: 5.0 PIP: 34 Tube Feeding Amount: 35 I&O: Intake and Output 12/23/18 12/24/18 19:00 07:00 Intake Total 870 ml 715 ml Output Total 1000 ml 1000 ml Balance -130 ml -285 ml Intake Free Water 450 ml 330 ml Tube Feeding 420 ml 385 ml Output Urine Total 600 ml 500 ml Stool Total 400 ml 500 ml CXR: no change Labs: Laboratory Tests Test 12/24/18 04:50 White Blood Count 12.2 K/UL (4.8-10.8) H Red Blood Count 3.15 M/UL (4.70-6.10) L Hemoglobin 9.4 G/DL (14.2-18.0) L Hematocrit 29.8 % (42.0-52.0) L Mean Corpuscular Volume 95 FL (80-99) Mean Corpuscular Hemoglobin 30.0 PG (27.0-31.0) Mean Corpuscular Hemoglobin Concent 31.7 G/DL (32.0-36.0) L Red Cell Distribution Width 15.6 % (11.6-14.8) H Platelet Count 289 K/UL (150-450) Mean Platelet Volume 10.3 FL (6.5-10.1) H Neutrophils (%) (Auto) 84.3 % (45.0-75.0) H Lymphocytes (%) (Auto) 10.2 % (20.0-45.0) L Monocytes (%) (Auto) 3.1 % (1.0-10.0) Eosinophils (%) (Auto) 1.7 % (0.0-3.0) Basophils (%) (Auto) 0.6 % (0.0-2.0) Erythrocyte Sedimentation Rate 61 MM/HR (0-20) H Sodium Level 147 MMOL/L (136-145) H Potassium Level 4.3 MMOL/L (3.5-5.1) Chloride Level 113 MMOL/L (98-107) H Carbon Dioxide Level 20 MMOL/L (21-32) L Anion Gap 14 mmol/L (5-15) Blood Urea Nitrogen 55 mg/dL (7-18) H Creatinine 0.9 MG/DL (0.55-1.30) Estimat Glomerular Filtration Rate mL/min (>60) Glucose Level 244 MG/DL (74-106) H Calcium Level 11.2 MG/DL (8.5-10.1) H Phosphorus Level 2.6 MG/DL (2.5-4.9) Magnesium Level 1.5 MG/DL (1.8-2.4) L Total Bilirubin 0.2 MG/DL (0.2-1.0) Aspartate Amino Transf (AST/SGOT) 19 U/L (15-37) Alanine Aminotransferase (ALT/SGPT) 11 U/L (12-78) L Alkaline Phosphatase 124 U/L (46-116) H C-Reactive Protein, Quantitative 25.3 mg/dL (0.00-0.90) H Total Protein 8.1 G/DL (6.4-8.2) Albumin 1.2 G/DL (3.4-5.0) L Globulin 6.9 g/dL Albumin/Globulin Ratio 0.2 (1.0-2.7) L Amylase Level 125 U/L (25-115) H Lipase 726 U/L (73-393) H Abhishek Guerra MD Dec 24, 2018 10:05
[2018-12-24 12:00] VITALS: BP 99/56
--- NOTE | 2018-12-24 12:00 | NUR ---
NURSE NOTES: Pt stable,afebrile no resp distress presented,oral/tracheal secretions suctioned PRN,turned and repositioned.
--- NOTE | 2018-12-24 14:40 | General Progress Note ---
Assessment/Plan Assessment/Plan Assessment/Recs: # Leukocytosis/Elevated white blood cell count,potentially due to infection with gram negative bacteremia, with uti and on abx --> have reviewed peripheral smear and bandemia/neutrophilia noted on initial smear --> continue antibiotics if they have been started by ID team, titrate as needed --> monitor for resolution ---> WBC trend: 11-->16-->15-->14-->11-->12-->10.8-->11-->12 # Anemia of chronic disease due to underlying chronic medical issues, multifactorial --> Anemia workup has been reviewed, Ferritin 1573 --> No evidence of hemolysis is noted, peripheral smear has been reviewed. --> Hgb goal >7. Transfuse prn. --> Epogen or iron at this time is not particularly indicated --> Medications have been reviewed --> HGB trend: 7.8-->7.6-->6.2-->6.4->7.1-->8.7-->9.1-->8.4-->7.8-->9.4 # Thrombocytopenia - potential causes multifactorial, evaluate liver and viral etiologies to begin, also could be related to underlying medications --> Hep panel and HIV negative --> US abd to evaluate for cirrhosis and hsm reviewed --> Peripheral smear ordered to evaluate for blasts/schistocytes --> abx and other meds have been reviewed --> ok for ppx if plt >50k w/ either heparin or lovenox --> Transfuse if Plt < 20k and fever, or if Plt < 10k without fever # Severe prerenal azotemia, on ivf --> improve po oral intake and consider appetite stimulant # Severe Sepsis, CXR: Probable small left pleural effusion, also evident on prior study 11/22/2017 --> appreciate ID recs # Bacteremia, likely from UTI, PNA --> tolerating abx well --> as per pulm The timing of this note does not necessarily reflect the time of the patient was seen. Greatly appreciate consultation! Subjective Constitutional: Denies: no symptoms, chills, diaphoresis, fever, malaise, weakness, other HEENT: Denies: no symptoms, eye pain, blurred vision, tearing, double vision, ear pain, ear discharge, nose pain, nose congestion, throat pain, throat swelling, mouth pain, mouth swelling, other Cardiovascular: Denies: no symptoms, chest pain, edema, irregular heart rate, lightheadedness, palpitations, syncope, other Respiratory: Denies: no symptoms, cough, orthopnea, shortness of breath, SOB with excertion, SOB at rest, sputum, stridor, wheezing, other Gastrointestinal/Abdominal: Denies: no symptoms, abdomen distended, abdominal pain, black stools, tarry stools, blood in stool, constipated, diarrhea, difficulty swallowing, nausea, poor appetite, poor fluid intake, rectal bleeding , vomiting, other Genitourinary: Denies: no symptoms, burning, discharge, frequency, flank pain, hematuria, incontinence, pain, urgency, other Endocrine: Denies: no symptoms, excessive sweating, flushing, intolerance to cold, intolerance to heat, increased hunger, increased thirst, increased urine, unexplained weight gain, unexplained weight loss, other Allergies: Coded Allergies: PENICILLINS (Unverified Allergy, Unknown, 02/26/16) POLYMYXIN B (Unverified Allergy, Unknown, 02/26/16) VANCOMYCIN (Unverified Allergy, Unknown, 02/26/16) Subjective 12/11: seen by bedside, vent dependent, leukocytosis, 11, hgb 7, will transfuse, no events 12/12: awake, comfortable wbc trending up at 16, no events 12/13: hgb 6.4, receiving transfusion, , wbc remains elevated. no acute events 12/14: seen by bedside, awake, comfortable low grade fever, wbc remains elevated at 15, bacteremia on IV Abx, hgb 7.1, will transfuse as needed 12/15: Wbc remains elevated, no events reported, hgb trending up 12/16: seen by bedside, awake, comfortable, no events 12/18: seen in the room, on vent and trach, no events 12/19: reviewed cbc and appears relatively stable, on starlix, remains in sdu 12/20: seen by bedside, on vent, mild leukocytosis 12/21: Pt is resting , on vent, wbc trending up , no events 12/22: exam is essentially unchanged, on abx, have discussed with pcp, rn, wbc better 12/23: transfuse wbc 11, on abx 12/24: no events to report, on vent/trach care, without issue Objective Last 24 Hour Vital Signs Date Time Temp Pulse Resp B/P (MAP) Pulse Ox O2 Delivery O2 Flow Rate FiO2 12/24/18 13:25 67 18 35 12/24/18 12:12 Mechanical Ventilator 12/24/18 12:00 35 12/24/18 10:45 64 18 35 12/24/18 09:20 74 12/24/18 09:00 74 95/52 12/24/18 09:00 74 95/52 12/24/18 08:50 56 16 35 12/24/18 08:00 78 12/24/18 08:00 35 12/24/18 08:00 Mechanical Ventilator 12/24/18 08:00 97.9 74 20 95/52 (66) 100 12/24/18 07:17 76 24 35 12/24/18 04:59 74 24 35 12/24/18 04:00 98.5 73 20 99/60 (73) 100 12/24/18 04:00 Mechanical Ventilator 12/24/18 04:00 69 12/24/18 04:00 35 12/24/18 03:30 68 19 35 12/24/18 01:27 75 31 35 12/24/18 00:00 98.9 72 30 101/61 (74) 99 12/24/18 00:00 Mechanical Ventilator 12/24/18 00:00 76 12/24/18 00:00 35 12/23/18 23:30 98 29 35 12/23/18 21:07 97 29 35 12/23/18 21:04 106 105/56 12/23/18 20:00 99.0 106 31 105/56 (72) 97 12/23/18 20:00 Mechanical Ventilator 12/23/18 20:00 35 12/23/18 20:00 108 12/23/18 19:00 96 30 35 12/23/18 18:00 98.8 12/23/18 17:21 108 116/64 12/23/18 17:00 107 28 35 12/23/18 16:00 101.9 112 29 116/64 (81) 97 12/23/18 16:00 Mechanical Ventilator 12/23/18 15:30 108 Intake and Output 12/23/18 12/24/18 19:00 07:00 Intake Total 870 ml 750 ml Output Total 1000 ml 1000 ml Balance -130 ml -250 ml Intake Free Water 450 ml 330 ml Tube Feeding 420 ml 420 ml Output Urine Total 600 ml 500 ml Stool Total 400 ml 500 ml Laboratory Tests 12/24/18 04:50: White Blood Count 12.2H, Red Blood Count 3.15L, Hemoglobin 9.4L, Hematocrit 29.8L, Mean Corpuscular Volume 95, Mean Corpuscular Hemoglobin 30.0, Mean Corpuscular Hemoglobin Concent 31.7L, Red Cell Distribution Width 15.6H, Platelet Count 289, Mean Platelet Volume 10.3H, Neutrophils (%) (Auto) 84.3H, Lymphocytes (%) (Auto) 10.2L, Monocytes (%) (Auto) 3.1, Eosinophils (%) (Auto) 1.7, Basophils (%) (Auto) 0.6, Erythrocyte Sedimentation Rate 61H, Sodium Level 147H, Potassium Level 4.3, Chloride Level 113H, Carbon Dioxide Level 20L, Anion Gap 14, Blood Urea Nitrogen 55H, Creatinine 0.9, Estimat Glomerular Filtration Rate , Glucose Level 244H, Calcium Level 11.2H, Phosphorus Level 2.6, Magnesium Level 1.5L, Total Bilirubin 0.2, Aspartate Amino Transf (AST/SGOT) 19, Alanine Aminotransferase (ALT/SGPT) 11L, Alkaline Phosphatase 124H, C-Reactive Protein, Quantitative 25.3H, Total Protein 8.1, Albumin 1.2L, Globulin 6.9, Albumin/ Globulin Ratio 0.2L, Amylase Level 125H, Lipase 726H Height (Feet): 5 Height (Inches): 8.00 Weight (Pounds): 141 Objective HEENT: Eyes were normal. ENT, mucous membranes were not dehydrated. NECK: Supple. There was no goiter. No mass. No lymphadenopathy. There was no JVD. No bruits. Carotid upstroke was 2+. LUNGS: Clear. Vent++/trach HEART: PMI was in the fifth left intercostal space in midclavicular line. There was normal S1 and normal S2. There was no murmur. no s3/s4 ABDOMEN: Soft and nontender without organomegaly. There were no masses palpable. Normal bowel sounds without bruits. There was no guarding. No rebound tenderness. No ascites. No hernia. No CVA tenderness. Liver span was 8 cm, mostly nontender. EXTREMITIES: No cyanosis, no clubbing, and no edema. Extremities warm. Adarsh Kim MD Dec 24, 2018 14:40
--- NOTE | 2018-12-24 14:45 | Nephrology Progress Note ---
Assessment/Plan Problem List: (1) Hypercalcemia (2) ATN (acute tubular necrosis) (3) Anemia (4) Feeding by G-tube (5) Acute and chronic respiratory failure (6) UTI (urinary tract infection) (7) Hyponatremia Assessment Patient have mainly Pre Renal Azotemia with possible underlying CKD- Low Na partly depletional, partly due to Hyperglycemia RESOLVED Other conditions as outlined: (1) Acute and chronic respiratory failure ([id number]) (2) Sepsis (3) Malnutrition and HypoAlbuminemia (4) UTI (urinary tract infection) (5) Anemia (6) Diabetes mellitus, type II (7) Colostomy care (8) Cerebral vascular disease (9) Decubitus ulcer of sacral region, stage 2 (10) Feeding by G-tube (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 Plan Stop Digoxin AREDIA 90 mg for HYPERCALCEMIA on 12/23 - Calcium level Kayexelate for high K as needed On Starlix K and Phos supplement as needed Keep electrolytes in check Keep BS and BP in check per consultants Subjective ROS Limited/Unobtainable: Yes Objective Objective Last 24 Hour Vital Signs Date Time Temp Pulse Resp B/P (MAP) Pulse Ox O2 Delivery O2 Flow Rate FiO2 12/24/18 13:25 67 18 35 12/24/18 12:12 Mechanical Ventilator 12/24/18 12:00 35 12/24/18 10:45 64 18 35 12/24/18 09:20 74 12/24/18 09:00 74 95/52 12/24/18 09:00 74 95/52 12/24/18 08:50 56 16 35 12/24/18 08:00 78 12/24/18 08:00 35 12/24/18 08:00 Mechanical Ventilator 12/24/18 08:00 97.9 74 20 95/52 (66) 100 12/24/18 07:17 76 24 35 12/24/18 04:59 74 24 35 12/24/18 04:00 98.5 73 20 99/60 (73) 100 12/24/18 04:00 Mechanical Ventilator 12/24/18 04:00 69 12/24/18 04:00 35 12/24/18 03:30 68 19 35 12/24/18 01:27 75 31 35 12/24/18 00:00 98.9 72 30 101/61 (74) 99 12/24/18 00:00 Mechanical Ventilator 12/24/18 00:00 76 12/24/18 00:00 35 12/23/18 23:30 98 29 35 12/23/18 21:07 97 29 35 12/23/18 21:04 106 105/56 12/23/18 20:00 99.0 106 31 105/56 (72) 97 12/23/18 20:00 Mechanical Ventilator 12/23/18 20:00 35 12/23/18 20:00 108 12/23/18 19:00 96 30 35 12/23/18 18:00 98.8 12/23/18 17:21 108 116/64 12/23/18 17:00 107 28 35 12/23/18 16:00 101.9 112 29 116/64 (81) 97 12/23/18 16:00 Mechanical Ventilator 12/23/18 15:30 108 Intake and Output 12/23/18 12/24/18 19:00 07:00 Intake Total 870 ml 750 ml Output Total 1000 ml 1000 ml Balance -130 ml -250 ml Intake Free Water 450 ml 330 ml Tube Feeding 420 ml 420 ml Output Urine Total 600 ml 500 ml Stool Total 400 ml 500 ml Laboratory Tests 12/24/18 04:50: White Blood Count 12.2H, Red Blood Count 3.15L, Hemoglobin 9.4L, Hematocrit 29.8L, Mean Corpuscular Volume 95, Mean Corpuscular Hemoglobin 30.0, Mean Corpuscular Hemoglobin Concent 31.7L, Red Cell Distribution Width 15.6H, Platelet Count 289, Mean Platelet Volume 10.3H, Neutrophils (%) (Auto) 84.3H, Lymphocytes (%) (Auto) 10.2L, Monocytes (%) (Auto) 3.1, Eosinophils (%) (Auto) 1.7, Basophils (%) (Auto) 0.6, Erythrocyte Sedimentation Rate 61H, Sodium Level 147H, Potassium Level 4.3, Chloride Level 113H, Carbon Dioxide Level 20L, Anion Gap 14, Blood Urea Nitrogen 55H, Creatinine 0.9, Estimat Glomerular Filtration Rate , Glucose Level 244H, Calcium Level 11.2H, Phosphorus Level 2.6, Magnesium Level 1.5L, Total Bilirubin 0.2, Aspartate Amino Transf (AST/SGOT) 19, Alanine Aminotransferase (ALT/SGPT) 11L, Alkaline Phosphatase 124H, C-Reactive Protein, Quantitative 25.3H, Total Protein 8.1, Albumin 1.2L, Globulin 6.9, Albumin/ Globulin Ratio 0.2L, Amylase Level 125H, Lipase 726H Height (Feet): 5 Height (Inches): 8.00 Weight (Pounds): 141 General Appearance: no apparent distress Cardiovascular: bradycardia Respiratory/Chest: decreased breath sounds Abdomen: distended Objective no change Migue Moreland MD Dec 24, 2018 14:45
[2018-12-24] MEDS ORDERED: NS 275ml ONE (15:07)
[2018-12-24] MEDS ORDERED: D5W 550ml IV ONE (15:07)
[2018-12-24 16:00] VITALS: BP 112/65
--- NOTE | 2018-12-24 17:19 | General Progress Note ---
Assessment/Plan Assessment/Plan Assessment (1) Colostomy care ICD Codes: Z43.3 - Encounter for attention to colostomy SNOMED: 818050971 (2) Anemia ICD Codes: D64.9 - Anemia, unspecified SNOMED: 797761114 (3) Feeding by G-tube ICD Codes: Z93.1 - Gastrostomy status SNOMED: 421737135, 878857242 (4) Abdominal wall cellulitis ICD Codes: L03.311 - Cellulitis of abdominal wall SNOMED: 65728890 (5) Acute pancreatitis ICD Codes: K85.90 - Acute pancreatitis without necrosis or infection, unspecified SNOMED: 682481224 (6) Pancreatitis ICD Codes: K85.90 - Acute pancreatitis without necrosis or infection, unspecified SNOMED: 61099256 Status: stable, unchanged Assessment/Plan Occult blood stool positive Hepatitis panel negative Stable H&H PRN transfusions ppi daily lopid GTFs per RD tumor markers fu stool ob Trend lipase, downtrending Subjective Allergies: Coded Allergies: PENICILLINS (Unverified Allergy, Unknown, 02/26/16) POLYMYXIN B (Unverified Allergy, Unknown, 02/26/16) VANCOMYCIN (Unverified Allergy, Unknown, 02/26/16) Subjective above noted non interactive tolerating TF Objective Last 24 Hour Vital Signs Date Time Temp Pulse Resp B/P (MAP) Pulse Ox O2 Delivery O2 Flow Rate FiO2 12/24/18 16:03 Mechanical Ventilator 12/24/18 16:01 35 12/24/18 16:00 95 12/24/18 16:00 98.1 91 26 112/65 (81) 100 12/24/18 15:05 65 18 35 12/24/18 13:25 67 18 35 12/24/18 12:12 Mechanical Ventilator 12/24/18 12:00 84 12/24/18 12:00 35 12/24/18 12:00 98.2 82 26 99/56 (70) 100 12/24/18 10:45 64 18 35 12/24/18 09:20 74 12/24/18 09:00 74 95/52 12/24/18 09:00 74 95/52 12/24/18 08:50 56 16 35 12/24/18 08:00 78 12/24/18 08:00 35 12/24/18 08:00 Mechanical Ventilator 12/24/18 08:00 97.9 74 20 95/52 (66) 100 12/24/18 07:17 76 24 35 12/24/18 04:59 74 24 35 12/24/18 04:00 98.5 73 20 99/60 (73) 100 12/24/18 04:00 Mechanical Ventilator 12/24/18 04:00 69 12/24/18 04:00 35 12/24/18 03:30 68 19 35 12/24/18 01:27 75 31 35 12/24/18 00:00 98.9 72 30 101/61 (74) 99 12/24/18 00:00 Mechanical Ventilator 12/24/18 00:00 76 12/24/18 00:00 35 12/23/18 23:30 98 29 35 12/23/18 21:07 97 29 35 12/23/18 21:04 106 105/56 12/23/18 20:00 99.0 106 31 105/56 (72) 97 12/23/18 20:00 Mechanical Ventilator 12/23/18 20:00 35 12/23/18 20:00 108 12/23/18 19:00 96 30 35 12/23/18 18:00 98.8 12/23/18 17:21 108 116/64 Intake and Output 12/23/18 12/24/18 19:00 07:00 Intake Total 870 ml 750 ml Output Total 1000 ml 1000 ml Balance -130 ml -250 ml Intake Free Water 450 ml 330 ml Tube Feeding 420 ml 420 ml Output Urine Total 600 ml 500 ml Stool Total 400 ml 500 ml Laboratory Tests 12/24/18 04:50: White Blood Count 12.2H, Red Blood Count 3.15L, Hemoglobin 9.4L, Hematocrit 29.8L, Mean Corpuscular Volume 95, Mean Corpuscular Hemoglobin 30.0, Mean Corpuscular Hemoglobin Concent 31.7L, Red Cell Distribution Width 15.6H, Platelet Count 289, Mean Platelet Volume 10.3H, Neutrophils (%) (Auto) 84.3H, Lymphocytes (%) (Auto) 10.2L, Monocytes (%) (Auto) 3.1, Eosinophils (%) (Auto) 1.7, Basophils (%) (Auto) 0.6, Erythrocyte Sedimentation Rate 61H, Sodium Level 147H, Potassium Level 4.3, Chloride Level 113H, Carbon Dioxide Level 20L, Anion Gap 14, Blood Urea Nitrogen 55H, Creatinine 0.9, Estimat Glomerular Filtration Rate , Glucose Level 244H, Calcium Level 11.2H, Phosphorus Level 2.6, Magnesium Level 1.5L, Total Bilirubin 0.2, Aspartate Amino Transf (AST/SGOT) 19, Alanine Aminotransferase (ALT/SGPT) 11L, Alkaline Phosphatase 124H, C-Reactive Protein, Quantitative 25.3H, Total Protein 8.1, Albumin 1.2L, Globulin 6.9, Albumin/ Globulin Ratio 0.2L, Amylase Level 125H, Lipase 726H Height (Feet): 5 Height (Inches): 8.00 Weight (Pounds): 141 Objective Elderly L man NCAT supple CTA RR' soft (+) GT, (+) ostomy contracted Amauri Ruiz MD Dec 24, 2018 17:19
--- NOTE | 2018-12-24 18:49 | Surgery Progress Note ---
Surgery Progress Note Subjective Additional Comments lipase trending up CEA nml CA 19-9 elevated leukocytosis ESR down Objective Last 24 Hour Vital Signs Date Time Temp Pulse Resp B/P (MAP) Pulse Ox O2 Delivery O2 Flow Rate FiO2 12/24/18 17:38 67 112/65 12/24/18 17:05 67 18 35 12/24/18 16:03 Mechanical Ventilator 12/24/18 16:01 35 12/24/18 16:00 95 12/24/18 16:00 98.1 91 26 112/65 (81) 100 12/24/18 15:05 65 18 35 12/24/18 13:25 67 18 35 12/24/18 12:12 Mechanical Ventilator 12/24/18 12:00 84 12/24/18 12:00 35 12/24/18 12:00 98.2 82 26 99/56 (70) 100 12/24/18 10:45 64 18 35 12/24/18 09:20 74 12/24/18 09:00 74 95/52 12/24/18 09:00 74 95/52 12/24/18 08:50 56 16 35 12/24/18 08:00 78 12/24/18 08:00 35 12/24/18 08:00 Mechanical Ventilator 12/24/18 08:00 97.9 74 20 95/52 (66) 100 12/24/18 07:17 76 24 35 12/24/18 04:59 74 24 35 12/24/18 04:00 98.5 73 20 99/60 (73) 100 12/24/18 04:00 Mechanical Ventilator 12/24/18 04:00 69 12/24/18 04:00 35 12/24/18 03:30 68 19 35 12/24/18 01:27 75 31 35 12/24/18 00:00 98.9 72 30 101/61 (74) 99 12/24/18 00:00 Mechanical Ventilator 12/24/18 00:00 76 12/24/18 00:00 35 12/23/18 23:30 98 29 35 12/23/18 21:07 97 29 35 12/23/18 21:04 106 105/56 12/23/18 20:00 99.0 106 31 105/56 (72) 97 12/23/18 20:00 Mechanical Ventilator 3/22/19 20:00 35 12/23/18 20:00 108 12/23/18 19:00 96 30 35 I&O Intake and Output 12/23/18 12/24/18 18:59 06:59 Intake Total 835 ml 750 ml Output Total 1000 ml 1000 ml Balance -165 ml -250 ml Intake Free Water 450 ml 330 ml Tube Feeding 385 ml 420 ml Output Urine Total 600 ml 500 ml Stool Total 400 ml 500 ml Dressing: saturated Wound: other Drains: other Cardiovascular: RSR Respiratory: decreased breath sounds Abdomen: soft, present bowel sounds, non-distended Extremities: no cyanosis, other Laboratory Tests Test 12/24/18 04:50 White Blood Count 12.2 K/UL (4.8-10.8) H Red Blood Count 3.15 M/UL (4.70-6.10) L Hemoglobin 9.4 G/DL (14.2-18.0) L Hematocrit 29.8 % (42.0-52.0) L Mean Corpuscular Volume 95 FL (80-99) Mean Corpuscular Hemoglobin 30.0 PG (27.0-31.0) Mean Corpuscular Hemoglobin Concent 31.7 G/DL (32.0-36.0) L Red Cell Distribution Width 15.6 % (11.6-14.8) H Platelet Count 289 K/UL (150-450) Mean Platelet Volume 10.3 FL (6.5-10.1) H Neutrophils (%) (Auto) 84.3 % (45.0-75.0) H Lymphocytes (%) (Auto) 10.2 % (20.0-45.0) L Monocytes (%) (Auto) 3.1 % (1.0-10.0) Eosinophils (%) (Auto) 1.7 % (0.0-3.0) Basophils (%) (Auto) 0.6 % (0.0-2.0) Erythrocyte Sedimentation Rate 61 MM/HR (0-20) H Sodium Level 147 MMOL/L (136-145) H Potassium Level 4.3 MMOL/L (3.5-5.1) Chloride Level 113 MMOL/L (98-107) H Carbon Dioxide Level 20 MMOL/L (21-32) L Anion Gap 14 mmol/L (5-15) Blood Urea Nitrogen 55 mg/dL (7-18) H Creatinine 0.9 MG/DL (0.55-1.30) Estimat Glomerular Filtration Rate mL/min (>60) Glucose Level 244 MG/DL (74-106) H Calcium Level 11.2 MG/DL (8.5-10.1) H Phosphorus Level 2.6 MG/DL (2.5-4.9) Magnesium Level 1.5 MG/DL (1.8-2.4) L Total Bilirubin 0.2 MG/DL (0.2-1.0) Aspartate Amino Transf (AST/SGOT) 19 U/L (15-37) Alanine Aminotransferase (ALT/SGPT) 11 U/L (12-78) L Alkaline Phosphatase 124 U/L (46-116) H C-Reactive Protein, Quantitative 25.3 mg/dL (0.00-0.90) H Total Protein 8.1 G/DL (6.4-8.2) Albumin 1.2 G/DL (3.4-5.0) L Globulin 6.9 g/dL Albumin/Globulin Ratio 0.2 (1.0-2.7) L Amylase Level 125 U/L (25-115) H Lipase 726 U/L (73-393) H Plan Problems: (1) Decubitus skin ulcer Assessment & Plan: Pt presented on admission with multiple pressure injuries and Skin erosion. Pt has trach and no evidence of skin breakdown noted under trach collar. Unstageable pressure injury noted to L earlobe. Stable dry brown eschar noted(L) 0.7cm x (W)0.5cm. Gross erythema with denudement and multiple scattered partial thickness wounds noted to buttocks and base of scrotum extending into both posterior upper thighs.Moderate amt sanguineous exudate noted upon removal of drsgs. 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 Moderate amt sanguineous exudate noted (L)3cm x (W)1cm x (D)7.4cm.Erythema periwound secondary to skin erosions. Partially opened DTPI L ischium .Base of wound purple,fluctuant with red borders.Open areas at base of this wound are beefy red in colour.Moderate amt sanguineous exudate noted.(L)7cm x (W)6.8cm. DTPI R ischium.Wound is fluctuant-purple in center with surrounding Maroon colour, and is partially opened with a small area of 5% that is necrotic.(L) 6.5cm x (W)5.5cm. Red skin erosion periwound. Partial thickness pressure injury L hip. Base of wound is moist -viable. Edges adherent and dry. Periwound without erythema or induration(L)1.2cm x (W)0.5cm. Elongate partial thickness wound posterior upper L thigh .Base of wound is moist -viable .Small amt sanguineous exudate noted. (+) maceration along borders. Erythema without induration or elevation in skin temp noted.(L)2cm x (W )9.4cm. DTPI noted to R heel .Base of injury is indurated and maroon in colour. Periwound is firm without erythema. (L)1.5cm x (W)1cm.R heel without evidence of skin breakdown. Tx.Plan: Cleanse Sacrum with Saline. Loosely pack with Hydrogel impregnated Kerlix. Apply Triad Paste periwound. Cover with ABD pad. Daily and prn. Cleanse R and L ischial wounds with Saline. Apply Moisture Barrier Paste.Cover with abd pads Daily and prn. Apply Moisture Barrier to skin erosions on buttocks,scrotum, and posterior aspects of both thighs.Cover with ABD pad daily and prn. Cleanse wound L hip with Saline. Apply Moisture Barrier paste .Cover with Optifoam drsg Daily and prn. Cleanse wound posterior upper L thigh with saline .Apply Hydrogel. Cover with Optifoam drsg Daily and prn. Apply Cavilon Skin Barrier to L earlobe daily. Please monitor. Apply Cavilon Skin Barrier to L heel. Cover with Optifoam drsg. Change every 7 days and prn. Apply Cavilon Skin Barrier to R heel. Cover with Optifoam drsg .Change every 7 days and prn. Air fluidized mattress. Reposition every 2hours or as tolerated. Off-load heels with pillow. (2) Acute and chronic respiratory failure Assessment & Plan: cont with breathing treatments trach stable trach site clean will change dressings daily (3) Acute pancreatitis Assessment & Plan: Findings consistent with uncomplicated nonnecrotizing acute pancreatitis. No evidence of associated peripancreatic abscess Surgical changes as described, including right lower quadrant ileostomy, subtotal colectomy with Haroldo procedure. Wall thickening of the Haroldo pouch. This could indicate inflammation. However, this is also present on both of the prior 2 exams and may be baseline for this patient Evidence of mild anasarca, with edema of the subcutaneous fat. This is a new finding Chronic appearing decubitus changes of the bilateral ischia. Correlate with clinical findings Complete left lower lobe consolidation. This is similar to both of the prior CTs , and is likely a chronic finding. There is progressive chronic interstitial fibrotic change involving the right middle lobe. There is also right lower lobe granulomatous calcification Extensive pulmonary parenchymal opacities bilaterally may reflect acute inflammation/infection, edema, progressive chronic scarring, or combination of the above. These are considerably more extensive than on the prior study Trace bilateral pleural fluid New finding of nonobstructive right renal collecting system calculs 4 mm calculus within the bladder lumen. This may represent a bladder calculus, a calculus and left ureteral orifice, or recently passed stone. If either of the latter, no evidence of resultant hydronephrosis or hydroureter Suprapubic catheter. This is a new finding since the 2016 exams. Interim removal of previously demonstrated Bledsoe catheter Gastrostomy Left renal cysts. Subcentimeter low-attenuation right renal lesions, too small to characterize, most likely benign simple cysts. No further follow-up necessary elevated amylase/lipase trending down leukocytosis GNR Bacteremia transfused anemia Unfortunately patient not able to participate in exam and difficult to identify if clinically pancreatitis or just laboratory data. Recent CT with uncomplicated pancreatitis but enzymes still remain elevated. Patient tolerated tube feeds. Patient with gram-negative belle bacteremia likely from UTI. Patient remains febrile intermittently with worsening leukocytosis on IV antibiotics. -no acute surgical intervention planned -transfuse as per hematology -Abx as per ID -trend lip/brit[place] - recent finding based on CT given patient cannot given history or participate in exam. CT with uncomplicated pancreatitis. okay for diet / feeds for now. IV fluids Javier Ricardo Dec 24, 2018 18:49
--- NOTE | 2018-12-24 19:45 | NUR ---
HAND-OFF: Report given to Yinka Gonsalez RN,no resp distress presented during the shift.
--- NOTE | 2018-12-24 19:46 | NUR ---
NURSE NOTES: @ 1916: Received report from Reshma/ SHAKIR. Pt is Awake, Pt is on Vent, will continue to Monitor.
--- NOTE | 2018-12-24 19:47 | NUR ---
NURSE NOTES: @ 1916: Received report from Reshma/ SHAKIR. Pt is Awake and was obtund, vent setting: AC 18, TV 500, Fio2 35%, Peep 5, Potex 7#. G-tube in place with Nepro @ 35ml/HR, Colostomy at right lower abdomen with good drainage, Suprapubic catheter in place with patent grainage, skin with multiple wounds, pleas see WCP. IV at right F/A with 22 G. Bed at lowest position, Call light within reach.
[2018-12-24 20:00] VITALS: BP 95/65
[2018-12-24] MEDS: Dyna-Hex 2% Top Sol 2oz TOPIC SCH (21:44)
[2018-12-25] VITALS (28 sets, daily range): BP systolic 57–125; BP diastolic 34–64
--- NOTE | 2018-12-25 00:45 | Progress Note ---
DATE: 12/24/2018 SUBJECTIVE: The patient is afebrile. He remained hypotensive without tachycardia. PHYSICAL EXAMINATION: VITAL SIGNS: Blood pressure is 95/53, his pulse is 78, respirations are 20, and temperature 97.9 degrees. HEENT: Eyes were normal. ENT, mucous membranes were moist and intact. NECK: Supple with no JVD and without lymph nodes. Tracheostomy site is clean. LUNGS: Clear without rhonchi, rales, or wheezing. Secretions are small, thin, and mcclure. HEART: Normal sounds with regular beats. There is no S3, S4, or pericardial rub. ABDOMEN: Soft and nontender with normal bowel sounds. Gastrostomy site is clean. EXTREMITIES: Warm without cyanosis, clubbing, or edema. LABORATORY AND DIAGNOSTIC DATA: His hemoglobin is 9.4, hematocrit 29.8 with MCV of 95, WBC of 12.2 and platelets are 289,000. His BUN and creatinine are 65 and 0.9 respectively. Sodium is 147, potassium 4.3, chloride 113, and CO2 is 20. His calcium is 11.2. SGOT and SGPT are normal. CRP is 35. Amylase and lipase increased moderately since yesterday. Blood culture from December 21, 2018 are negative. His urine cultures are positive for Staph aureus with MRSA. Chest x-ray today revealed bilateral interstitial opacities, worse on the right than on the left. It is slightly worse from prior study. There is no pleural effusion. There is no pneumothorax. IMPRESSION AND PLAN: The patient is on Zosyn 3.375 mg IV piggyback q.12 h. Amylase improving. Repeat laboratory tests will be done in a.m. The patient has been lethargic, anyway he smiled, and his pulse improved as compared to the condition prior to this admission. Neema Hutchins M.D. DR: TERRA JOB#: [id number] CC:
--- NOTE | 2018-12-25 01:45 | NUR ---
HAND-OFF: Report given to Mary/RN for continue care. Pt is awake. VSS.
--- NOTE | 2018-12-25 02:00 | NUR ---
NURSE NOTES: Report received from Carla RN, pt. in bed awake, A/O x's1-alert to name. Cardiac monitoring on, no signs or symptoms of acute cardiac or respiratory distress noted, bed in lowest position and call light within easy reach, bed alarm on and locked, side rails up x's 3 and safety brakes engaged. pt. appears to be tolerating current vent settings well at AC18, TV 500, peep 5 and fio2 of 35%- no respiratory distress noted, G tube feeding running Nephro @ 35cc/hr- no residual noted. Supra pubic catheter intact and draining to gravity. Colostomy Rt. side abdominal area intact and draining to gravity, pt. has Rt. AC 22G IV intact and patent, Safety measures continued, will continue with plan of care.
[2018-12-25] MEDS: NovoLOG Insulin Flexpen SUBQ SCH ×6 (02:27→20:30)
[2018-12-25 06:38] LABS: ALANINE AMINOTRANSFERASE 15 U/L (12-78); ALBUMIN 1.4 G/DL (3.4-5.0); ALBUMIN/GLOBULIN RATIO 0.2 (1.0-2.7); ALKALINE PHOSPHATASE 128 U/L (46-116); ANION GAP 12 mmol/L (5-15); ASPARTATE AMINO TRANSFERASE 24 U/L (15-37); BILIRUBIN,TOTAL 0.1 MG/DL (0.2-1.0); BLOOD UREA NITROGEN 50 mg/dL (7-18); CARBON DIOXIDE 20 MMOL/L (21-32); CHLORIDE 110 MMOL/L (98-107); CHOLESTEROL 109 MG/DL (< 200); CREATININE 1.1 MG/DL (0.55-1.30); HDL CHOLESTEROL 20 MG/DL (40-60); PHOSPHORUS 1.8 MG/DL (2.5-4.9); POTASSIUM 4.2 MMOL/L (3.5-5.1); SODIUM 142 MMOL/L (136-145); TRIGLYCERIDES 433 MG/DL (30-150)
--- NOTE | 2018-12-25 06:39 | NUR ---
NURSE NOTES: left msg for DR. Champagne regarding (+) blood culture MRSA - left msg with exchange- awaiting for call back from doctor.
--- NOTE | 2018-12-25 07:25 | NUR ---
HAND-OFF: Report given to Edita wall remains stable and no signs of distress. noted.
--- NOTE | 2018-12-25 07:30 | NUR ---
NURSE NOTES: Received report from SHAKIR Hernandez. Pt is lethargic, BP 84/49 Left arm 116/[address] Hutchins notified currently awaiting call back. Pt is trache to vent AC 18 TV 500 FiO2 35% Peep 5. GT noted running Nepro @ 35 cc/hr. No gastric residuals noted and GT flushed with 60cc H20. Colostomy noted draining stool in RUQ. Pt has a suprapubic catheter draining yellow urine. R hand 22g IV noted and flushed. Skin alterations noted. Bed is in lowest position side rails up x 2 call light within reach. Continuing to monitor pt at this time.
--- NOTE | 2018-12-25 07:45 | NUR ---
NURSE NOTES: Received call from Dr Brand and informed him of positive blood cultures for MRSA. Dr Brand instructed me to change linezolid route to IV. Will execute order.
--- NOTE | 2018-12-25 08:15 | NUR ---
Received call back from Dr Hutchins and instructed to bolus pt with 500cc NS. Will execute order and continue to monitor pt.
[2018-12-25] MEDS: metFORMIN 500mg tab GT SCH ×2 (08:40→17:58)
[2018-12-25] MEDS: Acetaminophen 650mg/20.3ml GT PRN ×2 (08:40→21:29)
[2018-12-25] MEDS: Atenolol 25mg tab GT SCH (08:41)
[2018-12-25] MEDS: dilTIAZem HCl 30mg tab GT SCH (08:41)
[2018-12-25] MEDS: Heparin 5000 units/ml inj SUBQ SCH ×2 (08:48→20:32)
--- NOTE | 2018-12-25 09:10 | NUR ---
NURSE NOTES: Reassessed BP R arm 111/58. No neuro changes, pt still lethargic. Will continue to monitor.
--- NOTE | 2018-12-25 10:15 | NUR ---
NURSE NOTES: NURSE NOTES: Pt's BP reassessed. Currently 84/42 HR 85 and pt is still lethargic. Contacted Dr. Hutchins and received instruction to transfer pt to ICU. Established IV access in L leg 22g. R hand 22g IV was leaking and d/c.
--- NOTE | 2018-12-25 10:23 | Cardiology Progress Note ---
Assessment/Plan Assessment/Plan 1. Supraventricular tachycardia. recurrent 12/09 and 12/10 2. Renal insufficiency. 3. Hyponatremia. 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 6. History of bowel resection. 7. History of CVA. 8. Chronic tracheostomy. 9. Diabetes mellitus. 10 pancreatitis 11. anemai bp borderline cortisol was normal on low dose Cardizem via gtube and dig and atenolol dig level 0.9 on 12/16 no further svt on the present regimen heart rate stable tele looks ok hodl parameter for low bp added dig level 2 will decrease frequency bp was low got ivf bolus now better remain more lethargic than usual per staff i am hesitant to stop the cardizem of bb as has had svt with out those Subjective ROS Limited/Unobtainable: Yes Subjective on the vent Objective Last 24 Hour Vital Signs Date Time Temp Pulse Resp B/P (MAP) Pulse Ox O2 Delivery O2 Flow Rate FiO2 12/25/18 09:21 79 22 35 12/25/18 08:41 87 87/57 12/25/18 08:41 87 87/57 12/25/18 07:12 85 24 35 12/25/18 04:39 89 25 35 12/25/18 04:00 82 12/25/18 04:00 35 12/25/18 04:00 Mechanical Ventilator 12/25/18 04:00 98.2 81 26 100/54 (69) 100 12/25/18 03:30 83 24 35 12/25/18 01:30 92 25 35 12/25/18 00:00 98.1 80 27 102/54 (70) 100 12/25/18 00:00 Mechanical Ventilator 12/25/18 00:00 82 12/24/18 23:30 90 27 35 12/24/18 21:45 90 95/54 12/24/18 21:30 91 29 35 12/24/18 20:00 Mechanical Ventilator 12/24/18 20:00 92 12/24/18 20:00 98.4 90 27 95/65 (75) 100 12/24/18 20:00 35 12/24/18 19:30 92 28 35 12/24/18 17:38 67 112/65 12/24/18 17:05 67 18 35 12/24/18 16:03 Mechanical Ventilator 12/24/18 16:01 35 12/24/18 16:00 95 12/24/18 16:00 98.1 91 26 112/65 (81) 100 12/24/18 15:05 65 18 35 12/24/18 13:25 67 18 35 12/24/18 12:12 Mechanical Ventilator 12/24/18 12:00 84 12/24/18 12:00 35 12/24/18 12:00 98.2 82 26 99/56 (70) 100 12/24/18 10:45 64 18 35 General Appearance: on vent, patient on isolation Neck: supple Cardiovascular: normal rate Respiratory/Chest: lungs clear Abdomen: normal bowel sounds, non tender, soft Extremities: no swelling Intake and Output 12/24/18 12/25/18 19:00 07:00 Intake Total 670 ml 720 ml Output Total 850 ml 900 ml Balance -180 ml -180 ml Intake Free Water 200 ml 250 ml Tube Feeding 350 ml 420 ml Other 120 ml 50 ml Output Urine Total 500 ml 450 ml Stool Total 350 ml 450 ml Laboratory Tests Test 12/25/18 03:50 Sodium Level 142 MMOL/L (136-145) Potassium Level 4.2 MMOL/L (3.5-5.1) Chloride Level 110 MMOL/L (98-107) H Carbon Dioxide Level 20 MMOL/L (21-32) L Anion Gap 12 mmol/L (5-15) Blood Urea Nitrogen 50 mg/dL (7-18) H Creatinine 1.1 MG/DL (0.55-1.30) Estimat Glomerular Filtration Rate mL/min (>60) Glucose Level 323 MG/DL (74-106) H Calcium Level 12.0 MG/DL (8.5-10.1) H Calcium (Send out) Pending Phosphorus Level 1.8 MG/DL (2.5-4.9) L Magnesium Level 3.1 MG/DL (1.8-2.4) H Total Bilirubin 0.1 MG/DL (0.2-1.0) L Aspartate Amino Transf (AST/SGOT) 24 U/L (15-37) Alanine Aminotransferase (ALT/SGPT) 15 U/L (12-78) Alkaline Phosphatase 128 U/L (46-116) H Total Protein 8.8 G/DL (6.4-8.2) H Albumin 1.4 G/DL (3.4-5.0) L Globulin 7.4 g/dL Albumin/Globulin Ratio 0.2 (1.0-2.7) L Triglycerides Level 433 MG/DL (30-150) H Cholesterol Level 109 MG/DL (< 200) LDL Cholesterol 48 mg/dL (<100) HDL Cholesterol 20 MG/DL (40-60) L Cholesterol/HDL Ratio 5.5 (3.3-4.4) H Parathyroid Hormone (Intact) Pending Digoxin Level 2.0 NG/ML (0.5-2.0) Donny Kelley MD Dec 25, 2018 10:23
--- NOTE | 2018-12-25 10:40 | NUR ---
NURSE NOTES: Received report from SHAKIR moreno. Pt is obtunded, unresponsive to pain. pale. hot tot touch. BP 57/34 , 69 HR , 99%, 25 RR. Pt is trache to vent AC 18 TV 500 FiO2 35% Peep 5. dressing saturated with drainage. will change when pt stable. thick secretions, white-yellow color. GT clamped. per RN pt on Nepro @ 35 cc/hr. Colostomy noted draining liquid stool in RLQ. Pt has a suprapubic catheter draining yellow urine, dressing saturated. IV 22g LT foot. Skin- see asessment. Bed is in lowest position side rails up x 2 call light within reach. Continuing to monitor pt at this time.
--- NOTE | 2018-12-25 11:19 | NUR ---
TRANSFER TO FLOOR: Patient transferred to ICU, per Dr Hutchins via hospital bed on O2 tank accompanied with RT and SHAKIR Holley. Report given to SHAKIR uHa. Pt has no belongings and medications given to SHAKIR Gomez. Pt's BP at transfer 68/51 HR 72 bpm Temp 98.1 Axillary RR 18 and SaO2 100%. Tele box removed. Addendum: 12/25/18 at 1129 by Edita Hope RN Late entry: Time of Transfer 1040 am.
[2018-12-25 11:29] LABS: HEMATOCRIT 22.4 % (42.0-52.0); HEMOGLOBIN 7.3 G/DL (14.2-18.0); MEAN CORPUSCULAR VOLUME 93 FL (80-99); PLATELET COUNT 253 K/UL (150-450); RED CELL DISTRIBUTION WIDTH 15.2 % (11.6-14.8); WHITE BLOOD COUNT 11.6 K/UL (4.8-10.8)
[2018-12-25] MEDS ORDERED: Sodium Phosphate 30 MM in NS 275 ML IVPB ONE (11:30)
--- NOTE | 2018-12-25 11:30 | NUR ---
Called Shawanda Brooke (pt's daughter) to inform her of pt transfer to ICU.
[2018-12-25 11:45] LABS: ANION GAP 13 mmol/L (5-15); BLOOD UREA NITROGEN 56 mg/dL (7-18); CALCIUM 11.1 MG/DL (8.5-10.1); CARBON DIOXIDE 18 MMOL/L (21-32); CHLORIDE 114 MMOL/L (98-107); CREATININE 1.1 MG/DL (0.55-1.30); POTASSIUM 3.6 MMOL/L (3.5-5.1); SODIUM 145 MMOL/L (136-145)
[2018-12-25] MEDS ORDERED: Nitroglycerin Subl 0.4mg tab SL PRN (11:45)
[2018-12-25 11:50] LABS: ALANINE AMINOTRANSFERASE 14 U/L (12-78); ALBUMIN 1.1 G/DL (3.4-5.0); ALBUMIN/GLOBULIN RATIO 0.2 (1.0-2.7); ALKALINE PHOSPHATASE 134 U/L (46-116); ASPARTATE AMINO TRANSFERASE 25 U/L (15-37); BILIRUBIN,TOTAL 0.1 MG/DL (0.2-1.0)
[2018-12-25] MEDS ORDERED: Vasopressin 100 UNITS in NS 95 ML IV SCH (12:00)
[2018-12-25] MEDS ORDERED: Sodium Phosphate 30 MM in NS 275 ML IVPB SCH (12:15)
--- NOTE | 2018-12-25 12:30 | NUR ---
NURSE NOTES: md mejia here to see pt. no new orders
[2018-12-25] MEDS ORDERED: Acetaminophen 650mg/20.3ml GT PRN (13:00)
--- NOTE | 2018-12-25 13:05 | Pulmonolgy Critical Care Note ---
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 Respiratory: monitor respiratory rate, adjust FIO2, CXR Cardiac: continue pressors, continue to monitor HR/BP Renal: keep IV fluid Infectious Disease: check cultures, continue antibiotics Gastrointestinal: hold feedings Endocrine: monitor blood sugar, continue sliding scale insulin Hematologic: transfuse if hgb<8.5 Neurologic: PRN Ativan, PRN Morphine, keep patient comfortable Prophylaxis: Protonix, Heparin Notes 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, 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 with: nurses, consultants, case technicianrelief manager - Objective Last 24 Hour Vital Signs Date Time Temp Pulse Resp B/P (MAP) Pulse Ox O2 Delivery O2 Flow Rate FiO2 12/25/18 10:55 81 23 35 12/25/18 09:21 79 22 35 12/25/18 08:41 87 87/57 12/25/18 08:41 87 87/57 12/25/18 08:00 100.4 87 28 87/57 (67) 100 12/25/18 08:00 Mechanical Ventilator 12/25/18 08:00 88 12/25/18 08:00 35 12/25/18 07:12 85 24 35 12/25/18 04:39 89 25 35 12/25/18 04:00 82 12/25/18 04:00 35 12/25/18 04:00 Mechanical Ventilator 12/25/18 04:00 98.2 81 26 100/54 (69) 100 12/25/18 03:30 83 24 35 12/25/18 01:30 92 25 35 12/25/18 00:00 98.1 80 27 102/54 (70) 100 12/25/18 00:00 Mechanical Ventilator 12/25/18 00:00 82 12/24/18 23:30 90 27 35 12/24/18 21:45 90 95/54 12/24/18 21:30 91 29 35 12/24/18 20:00 Mechanical Ventilator 12/24/18 20:00 92 12/24/18 20:00 98.4 90 27 95/65 (75) 100 12/24/18 20:00 35 12/24/18 19:30 92 28 35 12/24/18 17:38 67 112/65 12/24/18 17:05 67 18 35 12/24/18 16:03 Mechanical Ventilator 12/24/18 16:01 35 12/24/18 16:00 95 12/24/18 16:00 98.1 91 26 112/65 (81) 100 12/24/18 15:05 65 18 35 12/24/18 13:25 67 18 35 Status: awake Condition: critical HEENT: atraumatic, normocephalic Lungs: clear Heart: HR/BP stable, HR/BP unstable Abdomen: soft, active bowel sounds Extremities: edema Decubiti: stage Micro: Microbiology Date/Time Source Procedure Growth Status 12/23/18 10:00 Blood Gram Stain - Final Resulted 12/23/18 10:00 Blood Aerobic Culture - Preliminary NO GROWTH AFTER 48 HOURS Resulted Accucheck: 325 Critical Care - Subjective ROS Limited/Unobtainable: Yes Interval Events: transferred to ICU b/o hypotension and fever. Central line placed by ER physician Condition: critical EKG Rhythm: Sinus Rhythm FI02: 35 Vent Support Breath Rate: 18 Vent Support Mode: AC Vent Tidal Volume: 500 Sputum Amount: Small PEEP: 5.0 PIP: 31 Tube Feeding Amount: 35 I&O: Intake and Output 12/24/18 12/25/18 19:00 07:00 Intake Total 670 ml 720 ml Output Total 850 ml 900 ml Balance -180 ml -180 ml Intake Free Water 200 ml 250 ml Tube Feeding 350 ml 420 ml Other 120 ml 50 ml Output Urine Total 500 ml 450 ml Stool Total 350 ml 450 ml CXR: no change Labs: Laboratory Tests Test 12/25/18 03:50 12/25/18 11:15 12/25/18 12:35 Sodium Level 142 MMOL/L (136-145) 145 MMOL/L (136-145) Potassium Level 4.2 MMOL/L (3.5-5.1) 3.6 MMOL/L (3.5-5.1) Chloride Level 110 MMOL/L (98-107) H 114 MMOL/L (98-107) H Carbon Dioxide Level 20 MMOL/L (21-32) L 18 MMOL/L (21-32) L Anion Gap 12 mmol/L (5-15) 13 mmol/L (5-15) Blood Urea Nitrogen 50 mg/dL (7-18) H 56 mg/dL (7-18) H Creatinine 1.1 MG/DL (0.55-1.30) 1.1 MG/DL (0.55-1.30) Estimat Glomerular Filtration Rate mL/min (>60) mL/min (>60) Glucose Level 323 MG/DL (74-106) H 251 MG/DL (74-106) H Calcium Level 12.0 MG/DL (8.5-10.1) H 11.1 MG/DL (8.5-10.1) H Calcium (Send out) Pending Phosphorus Level 1.8 MG/DL (2.5-4.9) L Magnesium Level 3.1 MG/DL (1.8-2.4) H Total Bilirubin 0.1 MG/DL (0.2-1.0) L 0.1 MG/DL (0.2-1.0) L Aspartate Amino Transf (AST/SGOT) 24 U/L (15-37) 25 U/L (15-37) Alanine Aminotransferase (ALT/SGPT) 15 U/L (12-78) 14 U/L (12-78) Alkaline Phosphatase 128 U/L (46-116) H 134 U/L (46-116) H Total Protein 8.8 G/DL (6.4-8.2) H 7.4 G/DL (6.4-8.2) Albumin 1.4 G/DL (3.4-5.0) L 1.1 G/DL (3.4-5.0) L Globulin 7.4 g/dL 6.3 g/dL Albumin/Globulin Ratio 0.2 (1.0-2.7) L 0.2 (1.0-2.7) L Triglycerides Level 433 MG/DL (30-150) H Cholesterol Level 109 MG/DL (< 200) LDL Cholesterol 48 mg/dL (<100) HDL Cholesterol 20 MG/DL (40-60) L Cholesterol/HDL Ratio 5.5 (3.3-4.4) H Parathyroid Hormone (Intact) Pending Digoxin Level 2.0 NG/ML (0.5-2.0) White Blood Count 11.6 K/UL (4.8-10.8) H Red Blood Count 2.40 M/UL (4.70-6.10) L Hemoglobin 7.3 G/DL (14.2-18.0) L Hematocrit 22.4 % (42.0-52.0) L Mean Corpuscular Volume 93 FL (80-99) Mean Corpuscular Hemoglobin 30.2 PG (27.0-31.0) Mean Corpuscular Hemoglobin Concent 32.5 G/DL (32.0-36.0) Red Cell Distribution Width 15.2 % (11.6-14.8) H Platelet Count 253 K/UL (150-450) Mean Platelet Volume 9.6 FL (6.5-10.1) Neutrophils (%) (Auto) % (45.0-75.0) Lymphocytes (%) (Auto) % (20.0-45.0) Monocytes (%) (Auto) % (1.0-10.0) Eosinophils (%) (Auto) % (0.0-3.0) Basophils (%) (Auto) % (0.0-2.0) Differential Total Cells Counted 100 Neutrophils % (Manual) 75 % (45-75) Lymphocytes % (Manual) 6 % (20-45) L Monocytes % (Manual) 6 % (1-10) Eosinophils % (Manual) 2 % (0-3) Basophils % (Manual) 0 % (0-2) Myelocytes % 6 % (0-0) H Band Neutrophils 5 % (0-8) Platelet Estimate Adequate Platelet Morphology Normal Polychromasia 1+ Anisocytosis 1+ Lactic Acid Level 2.50 mmol/L (0.4-2.0) H Pending Troponin I 0.000 ng/mL (0.000-0.056) Abhishek Guerra MD Dec 25, 2018 13:05
--- NOTE | 2018-12-25 13:12 | NUR ---
CASE MANAGEMENT: REVIEW 12/25/2018 SI:SEPSIS. RESP FAILURE. T: 100.4 HR 87 RR 28 B/P 87/57 SATS 100% ON MECH VENT FiO2 35 WBC 11.6 HGB 7.3 HCT 22.4 CL 114 CO2 18 BUN 56 GLU 251 LACTIC ACID 2.5 CA 11.1 IS: INSULIN ASPART SUBQ AC/HS LOPID GT BID CARDIZEM GT BID METFORMIN GT BID DIGOXIN IV QD SODIUM PHOS IV X1 NS BOLUS X1 LINEZOLID IV X1 TENORMIN GT Q12H NOREPINEPHRINE PER PARAMETERS VASOPRESSIN IV Q24H STARLIX GT Q8H ICU
[2018-12-25] MEDS: Vasopressin 100 UNITS in NS 95 ML IV SCH (13:15)
[2018-12-25] MEDS: DOPamine 400mg/250ml 250 ML IV SCH (13:20)
--- NOTE | 2018-12-25 13:39 | Nephrology Progress Note ---
Assessment/Plan Problem List: (1) Hypercalcemia (2) ATN (acute tubular necrosis) (3) Anemia (4) Feeding by G-tube (5) Acute and chronic respiratory failure (6) UTI (urinary tract infection) (7) Hyponatremia Assessment to ICU for Hypotension doing poorly Patient have mainly Pre Renal Azotemia with possible underlying CKD- Low Na partly depletional, partly due to Hyperglycemia RESOLVED Other conditions as outlined: (1) Acute and chronic respiratory failure ([id number]-[id number]-ekyihai) (2) Sepsis (3) Malnutrition and HypoAlbuminemia (4) UTI (urinary tract infection) (5) Anemia (6) Diabetes mellitus, type II (7) Colostomy care (8) Cerebral vascular disease (9) Decubitus ulcer of sacral region, stage 2 (10) Feeding by G-tube (11) Guillain-[place] disease Plan Stop Digoxin stop Atenolol Stop Cardiazem Na Phos Pressors Albumin bolus AREDIA 90 mg for HYPERCALCEMIA on 12/23 - Calcium level Kayexelate for high K as needed On Starlix K and Phos supplement as needed Keep electrolytes in check Keep BS and BP in check per consultants Subjective ROS Limited/Unobtainable: Yes Objective Objective Last 24 Hour Vital Signs Date Time Temp Pulse Resp B/P (MAP) Pulse Ox O2 Delivery O2 Flow Rate FiO2 12/25/18 12:54 86/51 12/25/18 12:35 80 24 35 12/25/18 12:00 35 12/25/18 10:55 81 23 35 12/25/18 09:21 79 22 35 12/25/18 08:41 87 87/57 12/25/18 08:41 87 87/57 12/25/18 08:00 100.4 87 28 87/57 (67) 100 12/25/18 08:00 Mechanical Ventilator 12/25/18 08:00 88 12/25/18 08:00 35 12/25/18 07:12 85 24 35 12/25/18 04:39 89 25 35 12/25/18 04:00 82 12/25/18 04:00 35 12/25/18 04:00 Mechanical Ventilator 12/25/18 04:00 98.2 81 26 100/54 (69) 100 12/25/18 03:30 83 24 35 12/25/18 01:30 92 25 35 12/25/18 00:00 98.1 80 27 102/54 (70) 100 12/25/18 00:00 Mechanical Ventilator 12/25/18 00:00 82 12/24/18 23:30 90 27 35 12/24/18 21:45 90 95/54 12/24/18 21:30 91 29 35 12/24/18 20:00 Mechanical Ventilator 12/24/18 20:00 92 12/24/18 20:00 98.4 90 27 95/65 (75) 100 12/24/18 20:00 35 12/24/18 19:30 92 28 35 12/24/18 17:38 67 112/65 12/24/18 17:05 67 18 35 12/24/18 16:03 Mechanical Ventilator 12/24/18 16:01 35 12/24/18 16:00 95 12/24/18 16:00 98.1 91 26 112/65 (81) 100 12/24/18 15:05 65 18 35 Intake and Output 12/24/18 12/25/18 19:00 07:00 Intake Total 670 ml 720 ml Output Total 850 ml 900 ml Balance -180 ml -180 ml Intake Free Water 200 ml 250 ml Tube Feeding 350 ml 420 ml Other 120 ml 50 ml Output Urine Total 500 ml 450 ml Stool Total 350 ml 450 ml Laboratory Tests 12/25/18 03:50: Sodium Level 142, Potassium Level 4.2, Chloride Level 110H, Carbon Dioxide Level 20L, Anion Gap 12, Blood Urea Nitrogen 50H, Creatinine 1.1, Estimat Glomerular Filtration Rate , Glucose Level 323H, Calcium Level 12.0H, Calcium ( Send out) [Pending], Phosphorus Level 1.8L, Magnesium Level 3.1H, Total Bilirubin 0.1L, Aspartate Amino Transf (AST/SGOT) 24, Alanine Aminotransferase ( ALT/SGPT) 15, Alkaline Phosphatase 128H, Total Protein 8.8H, Albumin 1.4L, Globulin 7.4, Albumin/Globulin Ratio 0.2L, Triglycerides Level 433H, Cholesterol Level 109, LDL Cholesterol 48, HDL Cholesterol 20L, Cholesterol/HDL Ratio 5.5H, Parathyroid Hormone (Intact) [Pending], Digoxin Level 2.0 12/25/18 11:15: Sodium Level 145, Potassium Level 3.6, Chloride Level 114H, Carbon Dioxide Level 18L, Anion Gap 13, Blood Urea Nitrogen 56H, Creatinine 1.1, Estimat Glomerular Filtration Rate , Glucose Level 251H, Calcium Level 11.1H, Total Bilirubin 0.1L, Aspartate Amino Transf (AST/SGOT) 25, Alanine Aminotransferase ( ALT/SGPT) 14, Alkaline Phosphatase 134H, Total Protein 7.4, Albumin 1.1L, Globulin 6.3, Albumin/Globulin Ratio 0.2L, White Blood Count 11.6H, Red Blood Count 2.40L, Hemoglobin 7.3L, Hematocrit 22.4L, Mean Corpuscular Volume 93, Mean Corpuscular Hemoglobin 30.2, Mean Corpuscular Hemoglobin Concent 32.5, Red Cell Distribution Width 15.2H, Platelet Count 253, Mean Platelet Volume 9.6, Neutrophils (%) (Auto) , Lymphocytes (%) (Auto) , Monocytes (%) (Auto) , Eosinophils (%) (Auto) , Basophils (%) (Auto) , Differential Total Cells Counted 100, Neutrophils % (Manual) 75, Lymphocytes % (Manual) 6L, Monocytes % ( Manual) 6, Eosinophils % (Manual) 2, Basophils % (Manual) 0, Myelocytes % 6H, Band Neutrophils 5, Platelet Estimate Adequate, Platelet Morphology Normal, Polychromasia 1+, Anisocytosis 1+, Lactic Acid Level 2.50H, Troponin I 0.000 12/25/18 12:35: Lactic Acid Level 1.60 Height (Feet): 5 Height (Inches): 8.00 Weight (Pounds): 141 General Appearance: lethargic Cardiovascular: normal rate Respiratory/Chest: decreased breath sounds Abdomen: distended Objective no change Migue Moreland MD Dec 25, 2018 13:39
--- NOTE | 2018-12-25 14:00 | NUR ---
NURSE NOTES: photos taken of left ear scab, suprapubic area, sacral wound. wound cleaned and dressing applied. pt on p200 mattress. repositoned. vss 119/55 HR 63, 100%, 21RR. will continue to monitor pt.
[2018-12-25] MEDS ORDERED: dilTIAZem HCl 30mg tab GT SCH (18:00)
--- NOTE | 2018-12-25 18:40 | NUR ---
NURSE NOTES: left message with MD Hutchins regarding pt retake CBC, H/H 7.3/ 22.4. sacral wound weeping, no other signs of active bleeding. awaiting call back.
--- NOTE | 2018-12-25 18:50 | NUR ---
NURSE NOTES: Received order from MD Hutchins for 2 units PRBCs, type and cross, repeat cbc post transfusion.
--- NOTE | 2018-12-25 19:37 | General Progress Note ---
Assessment/Plan Assessment/Plan Assessment (1) Colostomy care ICD Codes: Z43.3 - Encounter for attention to colostomy SNOMED: 941725072 (2) Anemia ICD Codes: D64.9 - Anemia, unspecified SNOMED: 121623323 (3) Feeding by G-tube ICD Codes: Z93.1 - Gastrostomy status SNOMED: 487421721, 687269458 (4) Abdominal wall cellulitis ICD Codes: L03.311 - Cellulitis of abdominal wall SNOMED: 42500282 (5) Acute pancreatitis ICD Codes: K85.90 - Acute pancreatitis without necrosis or infection, unspecified SNOMED: 941260850 (6) Pancreatitis ICD Codes: K85.90 - Acute pancreatitis without necrosis or infection, unspecified SNOMED: 44711756 Status: stable, unchanged Assessment/Plan Occult blood stool positive Hepatitis panel negative Stable H&H - PRN transfusions ppi daily lopid GTFs per RD tumor markers Trend lipase, downtrending Subjective Allergies: Coded Allergies: PENICILLINS (Unverified Allergy, Unknown, 02/26/16) POLYMYXIN B (Unverified Allergy, Unknown, 02/26/16) VANCOMYCIN (Unverified Allergy, Unknown, 02/26/16) Subjective now in ICU on vent / trach hypotensive earlier d/w RN Objective Last 24 Hour Vital Signs Date Time Temp Pulse Resp B/P (MAP) Pulse Ox O2 Delivery O2 Flow Rate FiO2 12/25/18 19:10 72 31 35 12/25/18 16:56 79 23 35 12/25/18 16:41 89/47 12/25/18 16:00 35 12/25/18 16:00 74 12/25/18 16:00 Mechanical Ventilator 12/25/18 14:52 78 22 35 12/25/18 12:54 86/51 12/25/18 12:35 80 24 35 12/25/18 12:00 Mechanical Ventilator 12/25/18 12:00 35 12/25/18 12:00 64 12/25/18 10:55 81 23 35 12/25/18 09:21 79 22 35 12/25/18 08:41 87 87/57 12/25/18 08:41 87 87/57 12/25/18 08:00 100.4 87 28 87/57 (67) 100 3/24/19 08:00 Mechanical Ventilator 12/25/18 08:00 88 12/25/18 08:00 35 12/25/18 07:12 85 24 35 12/25/18 04:39 89 25 35 12/25/18 04:00 82 12/25/18 04:00 35 12/25/18 04:00 Mechanical Ventilator 12/25/18 04:00 98.2 81 26 100/54 (69) 100 12/25/18 03:30 83 24 35 12/25/18 01:30 92 25 35 12/25/18 00:00 98.1 80 27 102/54 (70) 100 12/25/18 00:00 Mechanical Ventilator 12/25/18 00:00 82 12/24/18 23:30 90 27 35 12/24/18 21:45 90 95/54 12/24/18 21:30 91 29 35 12/24/18 20:00 Mechanical Ventilator 12/24/18 20:00 92 12/24/18 20:00 98.4 90 27 95/65 (75) 100 12/24/18 20:00 35 Intake and Output 12/24/18 12/25/18 18:59 06:59 Intake Total 705 ml 720 ml Output Total 850 ml 750 ml Balance -145 ml -30 ml Intake Free Water 200 ml 250 ml Tube Feeding 385 ml 420 ml Other 120 ml 50 ml Output Urine Total 500 ml 450 ml Stool Total 350 ml 300 ml Laboratory Tests 12/25/18 03:50: Sodium Level 142, Potassium Level 4.2, Chloride Level 110H, Carbon Dioxide Level 20L, Anion Gap 12, Blood Urea Nitrogen 50H, Creatinine 1.1, Estimat Glomerular Filtration Rate , Glucose Level 323H, Calcium Level 12.0H, Calcium ( Send out) [Pending], Phosphorus Level 1.8L, Magnesium Level 3.1H, Total Bilirubin 0.1L, Aspartate Amino Transf (AST/SGOT) 24, Alanine Aminotransferase ( ALT/SGPT) 15, Alkaline Phosphatase 128H, Total Protein 8.8H, Albumin 1.4L, Globulin 7.4, Albumin/Globulin Ratio 0.2L, Triglycerides Level 433H, Cholesterol Level 109, LDL Cholesterol 48, HDL Cholesterol 20L, Cholesterol/HDL Ratio 5.5H, Parathyroid Hormone (Intact) [Pending], Digoxin Level 2.0 12/25/18 11:15: Sodium Level 145, Potassium Level 3.6, Chloride Level 114H, Carbon Dioxide Level 18L, Anion Gap 13, Blood Urea Nitrogen 56H, Creatinine 1.1, Estimat Glomerular Filtration Rate , Glucose Level 251H, Calcium Level 11.1H, Total Bilirubin 0.1L, Aspartate Amino Transf (AST/SGOT) 25, Alanine Aminotransferase ( ALT/SGPT) 14, Alkaline Phosphatase 134H, Total Protein 7.4, Albumin 1.1L, Globulin 6.3, Albumin/Globulin Ratio 0.2L, White Blood Count 11.6H, Red Blood Count 2.40L, Hemoglobin 7.3L, Hematocrit 22.4L, Mean Corpuscular Volume 93, Mean Corpuscular Hemoglobin 30.2, Mean Corpuscular Hemoglobin Concent 32.5, Red Cell Distribution Width 15.2H, Platelet Count 253, Mean Platelet Volume 9.6, Neutrophils (%) (Auto) , Lymphocytes (%) (Auto) , Monocytes (%) (Auto) , Eosinophils (%) (Auto) , Basophils (%) (Auto) , Differential Total Cells Counted 100, Neutrophils % (Manual) 75, Lymphocytes % (Manual) 6L, Monocytes % ( Manual) 6, Eosinophils % (Manual) 2, Basophils % (Manual) 0, Myelocytes % 6H, Band Neutrophils 5, Platelet Estimate Adequate, Platelet Morphology Normal, Polychromasia 1+, Anisocytosis 1+, Lactic Acid Level 2.50H, Troponin I 0.000, C- Reactive Protein, Quantitative 18.0H 12/25/18 12:35: Lactic Acid Level 1.60 Height (Feet): 5 Height (Inches): 8.00 Weight (Pounds): 141 Objective Elderly L man NCAT supple, (+) Trach CTA RR' soft (+) GT, (+) ostomy contracted Amauri Ruzi MD Dec 25, 2018 19:37
--- NOTE | 2018-12-25 20:00 | NUR ---
NURSE NOTES: Patient received from Melita SCHILLING. Patient is AAOX2. Patient is trached to Ventilator. AC 18, 500, 35%, 5. Portex 7. Patient is on Levophed drip via left femoral TLC. Nepro at 35ml/hr via G-tube, suprapubic catheter noted. RLQ colostomy noted. Wounds noted. Patient SR with 1st degree AVB. SpO2 100%. Patient reposition. Will continue to monitor.
--- NOTE | 2018-12-25 20:13 | NUR ---
HAND-OFF: Report given to Alon. endorsed 2/2 units PRBc's. pt in no acute distress.
[2018-12-25] MEDS: Dyna-Hex 2% Top Sol 2oz TOPIC SCH (20:26)
--- NOTE | 2018-12-25 20:30 | NUR ---
NURSE NOTES: Glucose 383, coverage provided, CHG bath given.
[2018-12-25] MEDS ORDERED: Atenolol 25mg tab GT SCH (21:00)
--- NOTE | 2018-12-25 21:45 | NUR ---
NURSE NOTES: 1/2 PRBC started. Vitals remains stable. Patient repositioned and oral care was provided. NAD at this time. Levophed being slowly titrated down.
--- NOTE | 2018-12-25 21:53 | Surgery Progress Note ---
Surgery Progress Note Subjective Additional Comments Upper tensive, tachycardic, transferred to the intensive care unit. Ill- appearing in the ICU. Leukocytosis 12,000. Lactic acidosis trending down. Objective Last 24 Hour Vital Signs Date Time Temp Pulse Resp B/P (MAP) Pulse Ox O2 Delivery O2 Flow Rate FiO2 12/25/18 19:10 72 31 35 12/25/18 18:00 73 19 125/64 (84) 100 12/25/18 18:00 125/64 12/25/18 17:30 83 23 95/41 (59) 93 12/25/18 17:00 72 24 122/63 (82) 100 12/25/18 17:00 122/63 12/25/18 16:56 79 23 35 12/25/18 16:41 89/47 12/25/18 16:30 82 25 89/47 (61) 98 12/25/18 16:00 35 12/25/18 16:00 74 12/25/18 16:00 99.2 74 25 125/64 (84) 100 12/25/18 16:00 Mechanical Ventilator 12/25/18 15:30 66 25 122/61 (81) 100 12/25/18 15:00 115/60 12/25/18 15:00 66 23 115/60 (78) 100 12/25/18 14:52 78 22 35 12/25/18 14:30 65 22 112/60 (77) 100 12/25/18 14:20 112/60 12/25/18 14:06 119/55 12/25/18 14:00 63 20 119/55 (76) 98 12/25/18 13:30 108/56 12/25/18 13:30 65 20 75/43 (54) 100 12/25/18 13:00 64 20 80/40 (53) 100 12/25/18 13:00 83/46 12/25/18 12:54 86/51 12/25/18 12:35 80 24 35 12/25/18 12:30 65 22 66/38 (47) 100 12/25/18 12:02 98.9 64 20 61/42 (48) 100 12/25/18 12:00 Mechanical Ventilator 12/25/18 12:00 35 12/25/18 12:00 64 12/25/18 11:30 67 24 62/36 (45) 99 12/25/18 11:00 71 24 57/34 (42) 98 12/25/18 10:55 81 23 35 12/25/18 09:21 79 22 35 12/25/18 08:41 87 87/57 12/25/18 08:41 87 87/57 12/25/18 08:00 100.4 87 28 87/57 (67) 100 12/25/18 08:00 Mechanical Ventilator 12/25/18 08:00 88 12/25/18 08:00 35 12/25/18 07:12 85 24 35 12/25/18 04:39 89 25 35 12/25/18 04:00 82 12/25/18 04:00 35 12/25/18 04:00 Mechanical Ventilator 12/25/18 04:00 98.2 81 26 100/54 (69) 100 12/25/18 03:30 83 24 35 12/25/18 01:30 92 25 35 12/25/18 00:00 98.1 80 27 102/54 (70) 100 12/25/18 00:00 Mechanical Ventilator 12/25/18 00:00 82 12/24/18 23:30 90 27 35 I&O Intake and Output 12/24/18 12/25/18 18:59 06:59 Intake Total 705 ml 720 ml Output Total 850 ml 750 ml Balance -145 ml -30 ml Intake Free Water 200 ml 250 ml Tube Feeding 385 ml 420 ml Other 120 ml 50 ml Output Urine Total 500 ml 450 ml Stool Total 350 ml 300 ml Dressing: other Wound: other Drains: other Cardiovascular: RSR Respiratory: decreased breath sounds Abdomen: soft, non-distended, decreased bowel sounds Extremities: other Laboratory Tests Test 12/25/18 03:50 12/25/18 11:15 12/25/18 12:35 Sodium Level 142 MMOL/L (136-145) 145 MMOL/L (136-145) Potassium Level 4.2 MMOL/L (3.5-5.1) 3.6 MMOL/L (3.5-5.1) Chloride Level 110 MMOL/L (98-107) H 114 MMOL/L (98-107) H Carbon Dioxide Level 20 MMOL/L (21-32) L 18 MMOL/L (21-32) L Anion Gap 12 mmol/L (5-15) 13 mmol/L (5-15) Blood Urea Nitrogen 50 mg/dL (7-18) H 56 mg/dL (7-18) H Creatinine 1.1 MG/DL (0.55-1.30) 1.1 MG/DL (0.55-1.30) Estimat Glomerular Filtration Rate mL/min (>60) mL/min (>60) Glucose Level 323 MG/DL (74-106) H 251 MG/DL (74-106) H Calcium Level 12.0 MG/DL (8.5-10.1) H 11.1 MG/DL (8.5-10.1) H Calcium (Send out) Pending Phosphorus Level 1.8 MG/DL (2.5-4.9) L Magnesium Level 3.1 MG/DL (1.8-2.4) H Total Bilirubin 0.1 MG/DL (0.2-1.0) L 0.1 MG/DL (0.2-1.0) L Aspartate Amino Transf (AST/SGOT) 24 U/L (15-37) 25 U/L (15-37) Alanine Aminotransferase (ALT/SGPT) 15 U/L (12-78) 14 U/L (12-78) Alkaline Phosphatase 128 U/L (46-116) H 134 U/L (46-116) H Total Protein 8.8 G/DL (6.4-8.2) H 7.4 G/DL (6.4-8.2) Albumin 1.4 G/DL (3.4-5.0) L 1.1 G/DL (3.4-5.0) L Globulin 7.4 g/dL 6.3 g/dL Albumin/Globulin Ratio 0.2 (1.0-2.7) L 0.2 (1.0-2.7) L Triglycerides Level 433 MG/DL (30-150) H Cholesterol Level 109 MG/DL (< 200) LDL Cholesterol 48 mg/dL (<100) HDL Cholesterol 20 MG/DL (40-60) L Cholesterol/HDL Ratio 5.5 (3.3-4.4) H Parathyroid Hormone (Intact) Pending Digoxin Level 2.0 NG/ML (0.5-2.0) White Blood Count 11.6 K/UL (4.8-10.8) H Red Blood Count 2.40 M/UL (4.70-6.10) L Hemoglobin 7.3 G/DL (14.2-18.0) L Hematocrit 22.4 % (42.0-52.0) L Mean Corpuscular Volume 93 FL (80-99) Mean Corpuscular Hemoglobin 30.2 PG (27.0-31.0) Mean Corpuscular Hemoglobin Concent 32.5 G/DL (32.0-36.0) Red Cell Distribution Width 15.2 % (11.6-14.8) H Platelet Count 253 K/UL (150-450) Mean Platelet Volume 9.6 FL (6.5-10.1) Neutrophils (%) (Auto) % (45.0-75.0) Lymphocytes (%) (Auto) % (20.0-45.0) Monocytes (%) (Auto) % (1.0-10.0) Eosinophils (%) (Auto) % (0.0-3.0) Basophils (%) (Auto) % (0.0-2.0) Differential Total Cells Counted 100 Neutrophils % (Manual) 75 % (45-75) Lymphocytes % (Manual) 6 % (20-45) L Monocytes % (Manual) 6 % (1-10) Eosinophils % (Manual) 2 % (0-3) Basophils % (Manual) 0 % (0-2) Myelocytes % 6 % (0-0) H Band Neutrophils 5 % (0-8) Platelet Estimate Adequate Platelet Morphology Normal Polychromasia 1+ Anisocytosis 1+ Lactic Acid Level 2.50 mmol/L (0.4-2.0) H 1.60 mmol/L (0.66-2.22) Troponin I 0.000 ng/mL (0.000-0.056) C-Reactive Protein, Quantitative 18.0 mg/dL (0.00-0.90) H Plan Problems: (1) Decubitus skin ulcer Assessment & Plan: Pt presented on admission with multiple pressure injuries and Skin erosion. Pt has trach and no evidence of skin breakdown noted under trach collar. Unstageable pressure injury noted to L earlobe. Stable dry brown eschar noted(L) 0.7cm x (W)0.5cm. Gross erythema with denudement and multiple scattered partial thickness wounds noted to buttocks and base of scrotum extending into both posterior upper thighs.Moderate amt sanguineous exudate noted upon removal of drsgs. 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 Moderate amt sanguineous exudate noted (L)3cm x (W)1cm x (D)7.4cm.Erythema periwound secondary to skin erosions. Partially opened DTPI L ischium .Base of wound purple,fluctuant with red borders.Open areas at base of this wound are beefy red in colour.Moderate amt sanguineous exudate noted.(L)7cm x (W)6.8cm. DTPI R ischium.Wound is fluctuant-purple in center with surrounding Maroon colour, and is partially opened with a small area of 5% that is necrotic.(L) 6.5cm x (W)5.5cm. Red skin erosion periwound. Partial thickness pressure injury L hip. Base of wound is moist -viable. Edges adherent and dry. Periwound without erythema or induration(L)1.2cm x (W)0.5cm. Elongate partial thickness wound posterior upper L thigh .Base of wound is moist -viable .Small amt sanguineous exudate noted. (+) maceration along borders. Erythema without induration or elevation in skin temp noted.(L)2cm x (W )9.4cm. DTPI noted to R heel .Base of injury is indurated and maroon in colour. Periwound is firm without erythema. (L)1.5cm x (W)1cm.R heel without evidence of skin breakdown. Tx.Plan: Cleanse Sacrum with Saline. Loosely pack with Hydrogel impregnated Kerlix. Apply Triad Paste periwound. Cover with ABD pad. Daily and prn. Cleanse R and L ischial wounds with Saline. Apply Moisture Barrier Paste.Cover with abd pads Daily and prn. Apply Moisture Barrier to skin erosions on buttocks,scrotum, and posterior aspects of both thighs.Cover with ABD pad daily and prn. Cleanse wound L hip with Saline. Apply Moisture Barrier paste .Cover with Optifoam drsg Daily and prn. Cleanse wound posterior upper L thigh with saline .Apply Hydrogel. Cover with Optifoam drsg Daily and prn. Apply Cavilon Skin Barrier to L earlobe daily. Please monitor. Apply Cavilon Skin Barrier to L heel. Cover with Optifoam drsg. Change every 7 days and prn. Apply Cavilon Skin Barrier to R heel. Cover with Optifoam drsg .Change every 7 days and prn. Air fluidized mattress. Reposition every 2hours or as tolerated. Off-load heels with pillow. (2) Acute and chronic respiratory failure Assessment & Plan: cont with breathing treatments trach stable trach site clean will change dressings daily (3) Acute pancreatitis Assessment & Plan: Findings consistent with uncomplicated nonnecrotizing acute pancreatitis. No evidence of associated peripancreatic abscess Surgical changes as described, including right lower quadrant ileostomy, subtotal colectomy with Haroldo procedure. Wall thickening of the Haroldo pouch. This could indicate inflammation. However, this is also present on both of the prior 2 exams and may be baseline for this patient Evidence of mild anasarca, with edema of the subcutaneous fat. This is a new finding Chronic appearing decubitus changes of the bilateral ischia. Correlate with clinical findings Complete left lower lobe consolidation. This is similar to both of the prior CTs , and is likely a chronic finding. There is progressive chronic interstitial fibrotic change involving the right middle lobe. There is also right lower lobe granulomatous calcification Extensive pulmonary parenchymal opacities bilaterally may reflect acute inflammation/infection, edema, progressive chronic scarring, or combination of the above. These are considerably more extensive than on the prior study Trace bilateral pleural fluid New finding of nonobstructive right renal collecting system calculs 4 mm calculus within the bladder lumen. This may represent a bladder calculus, a calculus and left ureteral orifice, or recently passed stone. If either of the latter, no evidence of resultant hydronephrosis or hydroureter Suprapubic catheter. This is a new finding since the 2016 exams. Interim removal of previously demonstrated Bledsoe catheter Gastrostomy Left renal cysts. Subcentimeter low-attenuation right renal lesions, too small to characterize, most likely benign simple cysts. No further follow-up necessary elevated amylase/lipase trending down leukocytosis GNR Bacteremia transfused anemia Unfortunately patient not able to participate in exam and difficult to identify if clinically pancreatitis or just laboratory data. Recent CT with uncomplicated pancreatitis but enzymes still remain elevated. Patient tolerated tube feeds. Patient with gram-negative belle bacteremia likely from UTI. Patient remains febrile intermittently with worsening leukocytosis on IV antibiotics. -no acute surgical intervention planned -transfuse as per hematology -Abx as per ID -trend lip/[place] - recent finding based on CT given patient cannot given history or participate in exam. CT with uncomplicated pancreatitis. okay for diet / feeds for now. IV fluids Javier Ricardo Dec 25, 2018 21:53
--- NOTE | 2018-12-25 22:04 | Emergency Room Report ---
Physical Exam Asked to start central line on patient with hypotension/sepsis. IV in foot. I had asked for fluid bolus. BP slightly improved. Last 24 Hour Vital Signs Date Time Temp Pulse Resp B/P (MAP) Pulse Ox O2 Delivery O2 Flow Rate FiO2 12/25/18 19:10 72 31 35 12/25/18 18:00 73 19 125/64 (84) 100 12/25/18 18:00 125/64 12/25/18 17:30 83 23 95/41 (59) 93 12/25/18 17:00 72 24 122/63 (82) 100 12/25/18 17:00 122/63 12/25/18 16:56 79 23 35 12/25/18 16:41 89/47 12/25/18 16:30 82 25 89/47 (61) 98 12/25/18 16:00 35 12/25/18 16:00 74 12/25/18 16:00 99.2 74 25 125/64 (84) 100 12/25/18 16:00 Mechanical Ventilator 12/25/18 15:30 66 25 122/61 (81) 100 12/25/18 15:00 115/60 12/25/18 15:00 66 23 115/60 (78) 100 12/25/18 14:52 78 22 35 12/25/18 14:30 65 22 112/60 (77) 100 12/25/18 14:20 112/60 12/25/18 14:06 119/55 12/25/18 14:00 63 20 119/55 (76) 98 12/25/18 13:30 108/56 12/25/18 13:30 65 20 75/43 (54) 100 12/25/18 13:00 64 20 80/40 (53) 100 12/25/18 13:00 83/46 12/25/18 12:54 86/51 12/25/18 12:35 80 24 35 12/25/18 12:30 65 22 66/38 (47) 100 12/25/18 12:02 98.9 64 20 61/42 (48) 100 12/25/18 12:00 Mechanical Ventilator 12/25/18 12:00 35 12/25/18 12:00 64 12/25/18 11:30 67 24 62/36 (45) 99 12/25/18 11:00 71 24 57/34 (42) 98 12/25/18 10:55 81 23 35 12/25/18 09:21 79 22 35 12/25/18 08:41 87 87/57 12/25/18 08:41 87 87/57 12/25/18 08:00 100.4 87 28 87/57 (67) 100 12/25/18 08:00 Mechanical Ventilator 12/25/18 08:00 88 12/25/18 08:00 35 12/25/18 07:12 85 24 35 12/25/18 04:39 89 25 35 12/25/18 04:00 82 12/25/18 04:00 35 12/25/18 04:00 Mechanical Ventilator 12/25/18 04:00 98.2 81 26 100/54 (69) 100 12/25/18 03:30 83 24 35 12/25/18 01:30 92 25 35 12/25/18 00:00 98.1 80 27 102/54 (70) 100 12/25/18 00:00 Mechanical Ventilator 12/25/18 00:00 82 12/24/18 23:30 90 27 35 Sp02 EP Interpretation: reviewed, normal General Appearance: lethargic, Chronically Ill Head: normocephalic Eyes: bilateral eye normal inspection, bilateral eye PERRL, bilateral eye EOMI ENT: dry mucus membranes, other - ear lobe decub L Neck: supple, tracheotomy Respiratory: decreased breath sounds Cardiovascular #1: regular rate, rhythm, no edema Cardiovascular #2: 2+ femoral (R), 2+ femoral (L) Gastrointestinal: distended, decreased bowel sounds Genitourinary: other - [place] Musculoskeletal: other - atrophy and some contractures Neurologic: other - decreased responsiveness and flaccid Psychiatric: other - stupor Skin: normal color, other - multiple decubiti Central Line Central Line : Consent: Emergent Central Line Lumen: triple Maximal Sterile Barrier Tech: yes cap, yes mask, yes sterile gown, yes sterile gloves, yes large sterile sheet, yes hand hygiene, yes chlorhexidine prep Central Line Postion: femoral (L) Anesthesia: none Complications: none Central Line Post Position: sutured, good blood return Attempts: One Patient Tolerated: Well Complications: None Progress Initial concern over possible arterial insertion - however, dribbling blood, not pulsatile , deoxygenated blood (sat at time 100%). Medical Decision Making Diagnostic Impression: Primary Impression: Hypotension (arterial) Qualified Codes: I95.9 - Hypotension, unspecified Additional Impression: Sepsis Qualified Codes: A41.9 - Sepsis, unspecified organism ER Course Request to start CVP due to hypotension. See procedure note. Tolerated well. Mentation somewhat improved after insertion. Levophed ready to infuse. Rhythm Strip Diag. Results EP Interpretation: yes Rhythm: NSR, no PVC's, no ectopy Last Vital Signs Date Time Temp Pulse Resp B/P (MAP) Pulse Ox O2 Delivery O2 Flow Rate FiO2 12/25/18 19:10 72 31 35 12/25/18 18:00 125/64 (84) 100 12/25/18 16:00 99.2 12/25/18 16:00 Mechanical Ventilator 12/22/18 13:37 15.0 Status: improved Disposition: ADMITTED INPATIENT Condition: Serious Referrals: Neema Hutchins MD (PCP) Chico Zapata MD Dec 25, 2018 22:03
[2018-12-26] VITALS (28 sets, daily range): BP systolic 85–110; BP diastolic 36–65
--- NOTE | 2018-12-26 | NUR ---
NURSE NOTES: Patient repositioned and given oral care. BP has been stable, turned off Levophed. Afebrile.
[2018-12-26] MEDS: NovoLOG Insulin Flexpen SUBQ SCH ×6 (01:16→21:17)
--- NOTE | 2018-12-26 02:00 | NUR ---
NURSE NOTES: 2/2 PRBC transfused. No reaction observed. VS remains stable. Afebrile. Repositioned patient. GT flushed. Central line dressing changed.
--- NOTE | 2018-12-26 04:00 | NUR ---
NURSE NOTES: Patient repositioned, blood drawn and sent to lab. UA urine also collected and sent to lab. NAD at this time, oral care given. remains off pressors, BP looking better.
--- NOTE | 2018-12-26 06:00 | NUR ---
NURSE NOTES: Repositioned, vitals remain stable, NAD, suctioned.
[2018-12-26 06:05] LABS: BASOPHILS % (AUTO) 0.5 % (0.0-2.0); EOSINOPHILS % (AUTO) 5.5 % (0.0-3.0); HEMATOCRIT 32.4 % (42.0-52.0); HEMOGLOBIN 10.6 G/DL (14.2-18.0); LYMPHOCYTES % (AUTO) 10.8 % (20.0-45.0); MEAN CORPUSCULAR VOLUME 92 FL (80-99); MONOCYTES % (AUTO) 4.7 % (1.0-10.0); NEUTROPHILS % (AUTO) 78.5 % (45.0-75.0); PLATELET COUNT 224 K/UL (150-450); RED BLOOD COUNT 3.52 M/UL (4.70-6.10); RED CELL DISTRIBUTION WIDTH 14.9 % (11.6-14.8); WHITE BLOOD COUNT 8.7 K/UL (4.8-10.8)
[2018-12-26 06:32] LABS: APPEARANCE,URINE SLIGHTLY CLOUDY; BILIRUBIN, URINE NEGATIVE (NEGATIVE); GLUCOSE, URINE (UA) NEGATIVE (NEGATIVE); KETONES,URINE NEGATIVE (NEGATIVE); LEUKOCYTE ESTERASE ,URINE 1+ (NEGATIVE); NITRITE,URINE NEGATIVE (NEGATIVE); PH,URINE 5 (4.5-8.0); PROTEIN,URINE 2+ (NEGATIVE); UROBILINOGEN,URINE NORMAL MG/DL (0.0-1.0)
[2018-12-26 06:39] LABS: ALANINE AMINOTRANSFERASE 14 U/L (12-78); ALBUMIN 1.2 G/DL (3.4-5.0); ALBUMIN/GLOBULIN RATIO 0.2 (1.0-2.7); ALKALINE PHOSPHATASE 121 U/L (46-116); ANION GAP 14 mmol/L (5-15); ASPARTATE AMINO TRANSFERASE 23 U/L (15-37); BILIRUBIN,TOTAL 0.3 MG/DL (0.2-1.0); BLOOD UREA NITROGEN 43 mg/dL (7-18); CALCIUM 9.8 MG/DL (8.5-10.1); CARBON DIOXIDE 19 MMOL/L (21-32); CHLORIDE 111 MMOL/L (98-107); CREATININE 0.9 MG/DL (0.55-1.30); PHOSPHORUS 3.8 MG/DL (2.5-4.9); SODIUM 144 MMOL/L (136-145)
[2018-12-26 06:51] LABS: COLOR,URINE YELLOW
--- NOTE | 2018-12-26 07:00 | NUR ---
HAND-OFF: Report given to Kae SCHILLING.
--- NOTE | 2018-12-26 07:40 | NUR ---
NURSE NOTES: Report received from Matthieu SCHILLING. Pt alert and oriented x 2. Pt connected to secured entrance monitor, SR. Pt on tache portex 7 to vent AC 18, TV 500, 35% FiO2, PEEP 5. GT connected to Nepro 35 cc/hr. Pt colostomy draining liquid brown stool. Pt suprapubic catheter connected to gravity bag draining clear, yellow urine. Left femoral TLC connected to TKO. Safety measures in place with bed locked and in lowest position, side rails x3 up and bed alarm on. Will continue to monitor and continue plan of care.
[2018-12-26] MEDS: metFORMIN 500mg tab GT SCH ×2 (08:34→17:27)
[2018-12-26] MEDS: Heparin 5000 units/ml inj SUBQ SCH ×2 (08:42→21:18)
[2018-12-26] MEDS ORDERED: dilTIAZem HCl 25mg/5ml Inj IVP PRN (08:45)
[2018-12-26] MEDS ORDERED: Digoxin 0.5mg/2ml Inj IVP SCH ×2 (09:00)
--- NOTE | 2018-12-26 09:05 | NUR ---
NURSE NOTES: Pt turned and repsositioned Oral care done and suctioned. No acute distress. Will continue to monitor.
[2018-12-26] MEDS ORDERED: Miralax 17gm pkt GT PRN (09:45)
[2018-12-26] MEDS ORDERED: Sodium Chloride for KCL Premix X 4hrs IV SCH (10:00)
--- NOTE | 2018-12-26 10:16 | NUR ---
NURSE NOTES: Dr Guerra here to see pt. Labs and CXR ordered for tomorrow. Dr Moreland here to see pt. Dr ordered KCL boluses. No acute distress. Will continue to monitor.
--- NOTE | 2018-12-26 10:30 | Pulmonolgy Critical Care Note ---
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 Assessment/Plan: hemodynamically getting better Respiratory: monitor respiratory rate, adjust FIO2, CXR Cardiac: continue pressors, continue to monitor HR/BP Renal: F/U I&O Infectious Disease: check cultures, continue antibiotics Gastrointestinal: continue feedings/current rate Endocrine: monitor blood sugar Hematologic: monitor H/H, transfuse if hgb<8.5 Neurologic: PRN Ativan, keep patient comfortable Affect: PRN ativan Prophylaxis: Protonix, Heparin Notes Reviewed: cardio, 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 with: nurses, consultants, behavioral health case managertextile conversion manager - Objective Last 24 Hour Vital Signs Date Time Temp Pulse Resp B/P (MAP) Pulse Ox O2 Delivery O2 Flow Rate FiO2 12/26/18 10:00 81 25 103/58 (73) 100 12/26/18 09:28 82 25 35 12/26/18 09:00 80 25 108/58 (75) 100 12/26/18 08:00 35 12/26/18 08:00 97.9 78 27 106/57 (73) 100 12/26/18 08:00 Mechanical Ventilator 12/26/18 08:00 75 12/26/18 07:29 74 28 35 12/26/18 07:00 76 28 104/58 (73) 100 12/26/18 06:00 72 21 100/55 (70) 100 12/26/18 05:00 69 27 104/61 (75) 100 12/26/18 04:54 67 26 35 12/26/18 04:30 66 23 108/58 (75) 100 12/26/18 04:00 67 12/26/18 04:00 Mechanical Ventilator 12/26/18 04:00 98.3 66 24 100/64 (76) 100 12/26/18 04:00 35 12/26/18 03:30 65 23 102/62 (75) 100 12/26/18 03:05 69 24 35 12/26/18 03:00 69 19 104/36 (58) 100 12/26/18 02:30 66 24 94/58 (70) 100 12/26/18 02:00 63 21 107/63 (78) 100 12/26/18 01:00 67 19 105/62 (76) 100 12/26/18 00:55 64 22 35 12/26/18 00:30 65 25 85/51 (62) 100 12/26/18 00:00 Mechanical Ventilator 12/26/18 00:00 98.8 65 25 87/51 (63) 100 12/25/18 23:30 68 23 96/50 (65) 100 12/25/18 23:00 69 22 88/52 (64) 100 12/25/18 22:33 72 25 35 12/25/18 22:30 73 24 94/55 (68) 100 12/25/18 22:20 125/64 12/25/18 22:00 73 20 93/51 (65) 100 12/25/18 21:59 99.3 12/25/18 21:32 77 29 35 12/25/18 21:30 77 25 97/48 (64) 100 12/25/18 21:00 83 30 92/46 (61) 100 12/25/18 20:30 84 29 90/49 (63) 99 12/25/18 20:00 99.5 75 29 107/52 (70) 99 12/25/18 20:00 71 12/25/18 20:00 35 12/25/18 20:00 Mechanical Ventilator 12/25/18 19:30 71 23 112/56 (74) 99 12/25/18 19:10 72 31 35 12/25/18 19:00 71 20 118/60 (79) 97 12/25/18 18:00 73 19 125/64 (84) 100 12/25/18 18:00 125/64 12/25/18 17:30 83 23 95/41 (59) 93 12/25/18 17:00 72 24 122/63 (82) 100 12/25/18 17:00 122/63 12/25/18 16:56 79 23 35 12/25/18 16:41 89/47 12/25/18 16:30 82 25 89/47 (61) 98 12/25/18 16:00 35 3/24/19 16:00 74 12/25/18 16:00 99.2 74 25 125/64 (84) 100 12/25/18 16:00 Mechanical Ventilator 12/25/18 15:30 66 25 122/61 (81) 100 12/25/18 15:00 115/60 12/25/18 15:00 66 23 115/60 (78) 100 12/25/18 14:52 78 22 35 12/25/18 14:30 65 22 112/60 (77) 100 12/25/18 14:20 112/60 12/25/18 14:06 119/55 12/25/18 14:00 63 20 119/55 (76) 98 12/25/18 13:30 108/56 12/25/18 13:30 65 20 75/43 (54) 100 12/25/18 13:00 64 20 80/40 (53) 100 12/25/18 13:00 83/46 12/25/18 12:54 86/51 12/25/18 12:35 80 24 35 12/25/18 12:30 65 22 66/38 (47) 100 12/25/18 12:02 98.9 64 20 61/42 (48) 100 12/25/18 12:00 Mechanical Ventilator 12/25/18 12:00 35 12/25/18 12:00 64 12/25/18 11:30 67 24 62/36 (45) 99 12/25/18 11:00 71 24 57/34 (42) 98 12/25/18 10:55 81 23 35 Status: awake Condition: critical HEENT: atraumatic, normocephalic Lungs: rales, rhonchi Heart: HR/BP stable Abdomen: soft, non-tender Extremities: no C/C/E Accucheck: 245 Critical Care - Subjective ROS Limited/Unobtainable: Yes Condition: critical EKG Rhythm: Sinus Rhythm FI02: 35 Vent Support Breath Rate: 18 Vent Support Mode: AC Vent Tidal Volume: 500 Sputum Amount: Small PEEP: 5.0 PIP: 41 Tube Feeding Amount: 35 I&O: Intake and Output 12/25/18 12/26/18 19:00 07:00 Intake Total 3397.5 ml 880 ml Output Total 1045 ml 555 ml Balance 2352.5 ml 325 ml Intake Free Water 360 ml 160 ml IV Total 2657.5 ml 300 ml Tube Feeding 380 ml 420 ml Output Urine Total 645 ml 555 ml Stool Total 400 ml CXR: no change Labs: Laboratory Tests Test 12/25/18 11:15 12/25/18 12:35 12/26/18 04:00 12/26/18 05:00 White Blood Count 11.6 K/UL (4.8-10.8) H 8.7 K/UL (4.8-10.8) Red Blood Count 2.40 M/UL (4.70-6.10) L 3.52 M/UL (4.70-6.10) L Hemoglobin 7.3 G/DL (14.2-18.0) L 10.6 G/DL (14.2-18.0) #L Hematocrit 22.4 % (42.0-52.0) L 32.4 % (42.0-52.0) #L Mean Corpuscular Volume 93 FL (80-99) 92 FL (80-99) Mean Corpuscular Hemoglobin 30.2 PG (27.0-31.0) 30.0 PG (27.0-31.0) Mean Corpuscular Hemoglobin Concent 32.5 G/DL (32.0-36.0) 32.6 G/DL (32.0-36.0) Red Cell Distribution Width 15.2 % (11.6-14.8) H 14.9 % (11.6-14.8) H Platelet Count 253 K/UL (150-450) 224 K/UL (150-450) Mean Platelet Volume 9.6 FL (6.5-10.1) 9.0 FL (6.5-10.1) Neutrophils (%) (Auto) % (45.0-75.0) 78.5 % (45.0-75.0) H Lymphocytes (%) (Auto) % (20.0-45.0) 10.8 % (20.0-45.0) L Monocytes (%) (Auto) % (1.0-10.0) 4.7 % (1.0-10.0) Eosinophils (%) (Auto) % (0.0-3.0) 5.5 % (0.0-3.0) H Basophils (%) (Auto) % (0.0-2.0) 0.5 % (0.0-2.0) Differential Total Cells Counted 100 Neutrophils % (Manual) 75 % (45-75) Lymphocytes % (Manual) 6 % (20-45) L Monocytes % (Manual) 6 % (1-10) Eosinophils % (Manual) 2 % (0-3) Basophils % (Manual) 0 % (0-2) Myelocytes % 6 % (0-0) H Band Neutrophils 5 % (0-8) Platelet Estimate Adequate Platelet Morphology Normal Polychromasia 1+ Anisocytosis 1+ Sodium Level 145 MMOL/L (136-145) 144 MMOL/L (136-145) Potassium Level 3.6 MMOL/L (3.5-5.1) 3.0 MMOL/L (3.5-5.1) L Chloride Level 114 MMOL/L (98-107) H 111 MMOL/L (98-107) H Carbon Dioxide Level 18 MMOL/L (21-32) L 19 MMOL/L (21-32) L Anion Gap 13 mmol/L (5-15) 14 mmol/L (5-15) Blood Urea Nitrogen 56 mg/dL (7-18) H 43 mg/dL (7-18) H Creatinine 1.1 MG/DL (0.55-1.30) 0.9 MG/DL (0.55-1.30) Estimat Glomerular Filtration Rate mL/min (>60) mL/min (>60) Glucose Level 251 MG/DL (74-106) H 230 MG/DL (74-106) H Lactic Acid Level 2.50 mmol/L (0.4-2.0) H 1.60 mmol/L (0.66-2.22) 1.30 mmol/L (0.4-2.0) Calcium Level 11.1 MG/DL (8.5-10.1) H 9.8 MG/DL (8.5-10.1) Total Bilirubin 0.1 MG/DL (0.2-1.0) L 0.3 MG/DL (0.2-1.0) Aspartate Amino Transf (AST/SGOT) 25 U/L (15-37) 23 U/L (15-37) Alanine Aminotransferase (ALT/SGPT) 14 U/L (12-78) 14 U/L (12-78) Alkaline Phosphatase 134 U/L (46-116) H 121 U/L (46-116) H Troponin I 0.000 ng/mL (0.000-0.056) 0.017 ng/mL (0.000-0.056) C-Reactive Protein, Quantitative 18.0 mg/dL (0.00-0.90) H Total Protein 7.4 G/DL (6.4-8.2) 7.4 G/DL (6.4-8.2) Albumin 1.1 G/DL (3.4-5.0) L 1.2 G/DL (3.4-5.0) L Globulin 6.3 g/dL 6.2 g/dL Albumin/Globulin Ratio 0.2 (1.0-2.7) L 0.2 (1.0-2.7) L Urine Color Yellow Urine Appearance Slightly cloudy Urine pH 5 (4.5-8.0) Urine Specific [place] 1.020 (1.005-1.035) Urine Protein 2+ (NEGATIVE) H Urine Glucose (UA) Negative (NEGATIVE) Urine Ketones Negative (NEGATIVE) Urine Blood Negative (NEGATIVE) Urine Nitrite Negative (NEGATIVE) Urine Bilirubin Negative (NEGATIVE) Urine Urobilinogen Normal MG/DL (0.0-1.0) Urine Leukocyte Esterase 1+ (NEGATIVE) H Urine RBC 0-2 /HPF (0 - 0) H Urine WBC 2-4 /HPF (0 - 0) Urine Squamous Epithelial Cells Occasional /LPF Urine Bacteria Occasional /HPF (NONE) Urine Yeast Few /HPF (NONE) H Uric Acid 7.9 MG/DL (2.6-7.2) H Phosphorus Level 3.8 MG/DL (2.5-4.9) Magnesium Level 2.1 MG/DL (1.8-2.4) Pro-B-Type Natriuretic Peptide 1954 pg/mL (0-125) H Digoxin Level 0.9 NG/ML (0.5-2.0) Test 12/26/18 08:35 Arterial Blood pH 7.284 (7.350-7.450) Arterial Blood Partial Pressure CO2 35.2 mmHg (35.0-45.0) Arterial Blood Partial Pressure O2 141.3 mmHg (75.0-100.0) H Arterial Blood HCO3 16.3 mmol/L (22.0-26.0) *L Arterial Blood Oxygen Saturation 97.8 % (95-100) Arterial Blood Base Excess -9.5 (-2-2) *L Wong Test Positive Abhishek Guerra MD Dec 26, 2018 10:30
--- NOTE | 2018-12-26 10:45 | Nephrology Progress Note ---
Assessment/Plan Problem List: (1) Hypercalcemia (2) ATN (acute tubular necrosis) (3) Anemia (4) Feeding by G-tube (5) Acute and chronic respiratory failure (6) UTI (urinary tract infection) (7) Hyponatremia Assessment to ICU for Hypotension doing poorly Patient have mainly Pre Renal Azotemia with possible underlying CKD- Low Na partly depletional, partly due to Hyperglycemia RESOLVED Other conditions as outlined: (1) Acute and chronic respiratory failure ([id number]) (2) Sepsis (3) Malnutrition and HypoAlbuminemia (4) UTI (urinary tract infection) (5) Anemia (6) Diabetes mellitus, type II (7) Colostomy care (8) Cerebral vascular disease (9) Decubitus ulcer of sacral region, stage 2 (10) Feeding by G-tube (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 Plan K supplement Stop Digoxin stop Atenolol Stop Cardiazem Na Phos Pressors Albumin bolus AREDIA 90 mg for HYPERCALCEMIA on 12/23 - Fu Calcium level Kayexelate for high K as needed On Starlix K and Phos supplement as needed Keep electrolytes in check Keep BS and BP in check per consultants Subjective ROS Limited/Unobtainable: Yes Objective Objective Last 24 Hour Vital Signs Date Time Temp Pulse Resp B/P (MAP) Pulse Ox O2 Delivery O2 Flow Rate FiO2 12/26/18 10:00 81 25 103/58 (73) 100 12/26/18 09:28 82 25 35 12/26/18 09:00 80 25 108/58 (75) 100 12/26/18 08:00 35 12/26/18 08:00 97.9 78 27 106/57 (73) 100 12/26/18 08:00 Mechanical Ventilator 12/26/18 08:00 75 12/26/18 07:29 74 28 35 12/26/18 07:00 76 28 104/58 (73) 100 12/26/18 06:00 72 21 100/55 (70) 100 12/26/18 05:00 69 27 104/61 (75) 100 12/26/18 04:54 67 26 35 12/26/18 04:30 66 23 108/58 (75) 100 12/26/18 04:00 67 12/26/18 04:00 Mechanical Ventilator 12/26/18 04:00 98.3 66 24 100/64 (76) 100 12/26/18 04:00 35 12/26/18 03:30 65 23 102/62 (75) 100 12/26/18 03:05 69 24 35 12/26/18 03:00 69 19 104/36 (58) 100 12/26/18 02:30 66 24 94/58 (70) 100 12/26/18 02:00 63 21 107/63 (78) 100 12/26/18 01:00 67 19 105/62 (76) 100 12/26/18 00:55 64 22 35 12/26/18 00:30 65 25 85/51 (62) 100 12/26/18 00:00 Mechanical Ventilator 12/26/18 00:00 98.8 65 25 87/51 (63) 100 12/25/18 23:30 68 23 96/50 (65) 100 12/25/18 23:00 69 22 88/52 (64) 100 12/25/18 22:33 72 25 35 12/25/18 22:30 73 24 94/55 (68) 100 12/25/18 22:20 125/64 12/25/18 22:00 73 20 93/51 (65) 100 12/25/18 21:59 99.3 12/25/18 21:32 77 29 35 12/25/18 21:30 77 25 97/48 (64) 100 12/25/18 21:00 83 30 92/46 (61) 100 12/25/18 20:30 84 29 90/49 (63) 99 12/25/18 20:00 99.5 75 29 107/52 (70) 99 12/25/18 20:00 71 12/25/18 20:00 35 12/25/18 20:00 Mechanical Ventilator 12/25/18 19:30 71 23 112/56 (74) 99 12/25/18 19:10 72 31 35 12/25/18 19:00 71 20 118/60 (79) 97 12/25/18 18:00 73 19 125/64 (84) 100 12/25/18 18:00 125/64 12/25/18 17:30 83 23 95/41 (59) 93 12/25/18 17:00 72 24 122/63 (82) 100 12/25/18 17:00 122/63 12/25/18 16:56 79 23 35 12/25/18 16:41 89/47 12/25/18 16:30 82 25 89/47 (61) 98 12/25/18 16:00 35 12/25/18 16:00 74 12/25/18 16:00 99.2 74 25 125/64 (84) 100 12/25/18 16:00 Mechanical Ventilator 12/25/18 15:30 66 25 122/61 (81) 100 12/25/18 15:00 115/60 12/25/18 15:00 66 23 115/60 (78) 100 12/25/18 14:52 78 22 35 12/25/18 14:30 65 22 112/60 (77) 100 12/25/18 14:20 112/60 12/25/18 14:06 119/55 12/25/18 14:00 63 20 119/55 (76) 98 12/25/18 13:30 108/56 12/25/18 13:30 65 20 75/43 (54) 100 12/25/18 13:00 64 20 80/40 (53) 100 12/25/18 13:00 83/46 12/25/18 12:54 86/51 12/25/18 12:35 80 24 35 12/25/18 12:30 65 22 66/38 (47) 100 12/25/18 12:02 98.9 64 20 61/42 (48) 100 12/25/18 12:00 Mechanical Ventilator 12/25/18 12:00 35 12/25/18 12:00 64 12/25/18 11:30 67 24 62/36 (45) 99 12/25/18 11:00 71 24 57/34 (42) 98 12/25/18 10:55 81 23 35 Intake and Output 12/25/18 12/26/18 19:00 07:00 Intake Total 3397.5 ml 880 ml Output Total 1045 ml 555 ml Balance 2352.5 ml 325 ml Intake Free Water 360 ml 160 ml IV Total 2657.5 ml 300 ml Tube Feeding 380 ml 420 ml Output Urine Total 645 ml 555 ml Stool Total 400 ml Laboratory Tests 12/25/18 11:15: White Blood Count 11.6H, Red Blood Count 2.40L, Hemoglobin 7.3L, Hematocrit 22.4L, Mean Corpuscular Volume 93, Mean Corpuscular Hemoglobin 30.2, Mean Corpuscular Hemoglobin Concent 32.5, Red Cell Distribution Width 15.2H, Platelet Count 253, Mean Platelet Volume 9.6, Neutrophils (%) (Auto) , Lymphocytes (%) (Auto) , Monocytes (%) (Auto) , Eosinophils (%) (Auto) , Basophils (%) (Auto) , Differential Total Cells Counted 100, Neutrophils % ( Manual) 75, Lymphocytes % (Manual) 6L, Monocytes % (Manual) 6, Eosinophils % ( Manual) 2, Basophils % (Manual) 0, Myelocytes % 6H, Band Neutrophils 5, Platelet Estimate Adequate, Platelet Morphology Normal, Polychromasia 1+, Anisocytosis 1+, Sodium Level 145, Potassium Level 3.6, Chloride Level 114H, Carbon Dioxide Level 18L, Anion Gap 13, Blood Urea Nitrogen 56H, Creatinine 1.1 , Estimat Glomerular Filtration Rate , Glucose Level 251H, Lactic Acid Level 2.50H, Calcium Level 11.1H, Total Bilirubin 0.1L, Aspartate Amino Transf (AST/ SGOT) 25, Alanine Aminotransferase (ALT/SGPT) 14, Alkaline Phosphatase 134H, Troponin I 0.000, C-Reactive Protein, Quantitative 18.0H, Total Protein 7.4, Albumin 1.1L, Globulin 6.3, Albumin/Globulin Ratio 0.2L 12/25/18 12:35: Lactic Acid Level 1.60 12/26/18 04:00: Urine Color Yellow, Urine Appearance Slightly cloudy, Urine pH 5, Urine Specific [place] 1.020, Urine Protein 2+H, Urine Glucose (UA) Negative, Urine Ketones Negative, Urine Blood Negative, Urine Nitrite Negative, Urine Bilirubin Negative, Urine Urobilinogen Normal, Urine Leukocyte Esterase 1+H, Urine RBC 0- 2H, Urine WBC 2-4, Urine Squamous Epithelial Cells Occasional, Urine Bacteria Occasional, Urine Yeast FewH 12/26/18 05:00: White Blood Count 8.7, Red Blood Count 3.52L, Hemoglobin 10.6#L, Hematocrit 32.4 #L, Mean Corpuscular Volume 92, Mean Corpuscular Hemoglobin 30.0, Mean Corpuscular Hemoglobin Concent 32.6, Red Cell Distribution Width 14.9H, Platelet Count 224, Mean Platelet Volume 9.0, Neutrophils (%) (Auto) 78.5H, Lymphocytes (%) (Auto) 10.8L, Monocytes (%) (Auto) 4.7, Eosinophils (%) (Auto) 5.5H, Basophils (%) (Auto) 0.5, Sodium Level 144, Potassium Level 3.0L, Chloride Level 111H, Carbon Dioxide Level 19L, Anion Gap 14, Blood Urea Nitrogen 43H, Creatinine 0.9, Estimat Glomerular Filtration Rate , Glucose Level 230H, Lactic Acid Level 1.30, Calcium Level 9.8, Total Bilirubin 0.3, Aspartate Amino Transf (AST/SGOT) 23, Alanine Aminotransferase (ALT/SGPT) 14, Alkaline Phosphatase 121H, Troponin I 0.017, Total Protein 7.4, Albumin 1.2L, Globulin 6.2, Albumin/Globulin Ratio 0.2L, Uric Acid 7.9H, Phosphorus Level 3.8 , Magnesium Level 2.1, Pro-B-Type Natriuretic Peptide 1954H, Digoxin Level 0.9 12/26/18 08:35: Arterial Blood pH 7.284L, Arterial Blood Partial Pressure CO2 35.2, Arterial Blood Partial Pressure O2 141.3H, Arterial Blood HCO3 16.3*L, Arterial Blood Oxygen Saturation 97.8, Arterial Blood Base Excess -9.5*L, Wong Test Positive Height (Feet): 5 Height (Inches): 8.00 Weight (Pounds): 120 General Appearance: no apparent distress Neck: other - vented Cardiovascular: normal rate Respiratory/Chest: decreased breath sounds Objective no change Migue Moreland MD Dec 26, 2018 10:45
--- NOTE | 2018-12-26 10:48 | NUR ---
RADIOLOGY DEPT., CHEST X-RAY DONE.-P.DYE
--- NOTE | 2018-12-26 11:00 | Progress Note ---
DATE: 12/25/2018 NOTE: POOR AUDIO SUBJECTIVE: The patient hypotension that did not respond to volume replacement. He was transferred to [facility] intensive care and was admitted. When the patient was in ICU bed, the patient's blood pressure was in the 70 over , his heart rate 73, respirations were clinically fine, and temperature was 101. The patient received volume replacement. PHYSICAL EXAMINATION: VITAL SIGNS: His current blood pressure is 94/65, his pulse is 74, respirations are 24, and temperature is 99.3. HEENT: Eyes were normal. ENT, mucous membranes were moist and intact. NECK: Supple with no JVD without lymph nodes. Tracheostomy site is clean. LUNGS: Clear without rhonchi, rales, or wheezing. Secretions are small, thick, and barros. HEART: Normal sounds with regular beats. There is tachycardia at rest. ABDOMEN: Soft and nontender with normal bowel sounds. Gastrostomy site is clean. EXTREMITIES: Warm without cyanosis, clubbing, or edema. LABORATORY AND DIAGNOSTIC DATA: Hemoglobin is , hematocrit , WBC of 11.6, and platelets are 253,000. BUN and creatinine 56 and 1.1 respectively. His sodium is 145, potassium 3.6, chloride 114, CO2 18, and BUN and creatinine 56 and 1.1 respectively. IMPRESSION: The patient has been recovering from septic shock. Probably, blood pressure is near normal. The patient is now several hours ago. Repeat laboratory tests will be done in the a.m. CBC, BMP, chest x-ray, and UA will be repeated. Neema Hutchins M.D. DR: AYAKA JOB#: [id number] CC:
[2018-12-26] MEDS: Vasopressin 100 UNITS in NS 95 ML IV SCH (12:15)
--- NOTE | 2018-12-26 12:32 | NUR ---
Social Service Note Patient transferred to ICU 12/25. Patient is a resident of [facility], 12/2012. Patient with trach, vent and g-tube. SW contacted [facility] [phone] and patient doesn't have a POLST or and advance directive. Primary contact's are patient's dgts Shawanda [phone] and Kristin [phone]. Patient is a full code. Patient will require meterman subacute placement upon discharge, anticipated return to [place]. Will monitor and continue to be available as needed.
--- NOTE | 2018-12-26 12:37 | GI Progress Note ---
Assessment/Plan Problems: (1) Colostomy care ICD Codes: Z43.3 - Encounter for attention to colostomy SNOMED: 741734283 (2) Anemia ICD Codes: D64.9 - Anemia, unspecified SNOMED: 117871120 (3) Feeding by G-tube ICD Codes: Z93.1 - Gastrostomy status SNOMED: 457242615, 969548652 (4) Abdominal wall cellulitis ICD Codes: L03.311 - Cellulitis of abdominal wall SNOMED: 96935676 (5) Acute pancreatitis ICD Codes: K85.90 - Acute pancreatitis without necrosis or infection, unspecified SNOMED: 388963430 (6) Pancreatitis ICD Codes: K85.90 - Acute pancreatitis without necrosis or infection, unspecified SNOMED: 75748258 Status: stable Status Narrative Discussed with Dr. Jackson. Assessment/Plan Occult blood stool positive Hepatitis panel negative Stable H&H - PRN transfusions ppi daily lopid GTFs per RD tumor markers Trend lipase, downtrending The patient was seen and examined at bedside and all new and available data was reviewed in the patients chart. I agree with the above findings, impression and plan. (Patient seen earlier today. Signature stamp does not reflect patient encounter time.). - Benjamin Jackson MD Subjective Subjective Limited Objective Last 24 Hour Vital Signs Date Time Temp Pulse Resp B/P (MAP) Pulse Ox O2 Delivery O2 Flow Rate FiO2 12/26/18 11:17 81 23 35 12/26/18 11:00 82 23 105/63 (77) 100 12/26/18 10:00 81 25 103/58 (73) 100 12/26/18 09:28 82 25 35 12/26/18 09:00 80 25 108/58 (75) 100 12/26/18 08:00 35 12/26/18 08:00 97.9 78 27 106/57 (73) 100 12/26/18 08:00 Mechanical Ventilator 12/26/18 08:00 75 12/26/18 07:29 74 28 35 12/26/18 07:00 76 28 104/58 (73) 100 12/26/18 06:00 72 21 100/55 (70) 100 12/26/18 05:00 69 27 104/61 (75) 100 12/26/18 04:54 67 26 35 12/26/18 04:30 66 23 108/58 (75) 100 12/26/18 04:00 67 12/26/18 04:00 Mechanical Ventilator 12/26/18 04:00 98.3 66 24 100/64 (76) 100 12/26/18 04:00 35 12/26/18 03:30 65 23 102/62 (75) 100 12/26/18 03:05 69 24 35 12/26/18 03:00 69 19 104/36 (58) 100 12/26/18 02:30 66 24 94/58 (70) 100 12/26/18 02:00 63 21 107/63 (78) 100 12/26/18 01:00 67 19 105/62 (76) 100 12/26/18 00:55 64 22 35 12/26/18 00:30 65 25 85/51 (62) 100 12/26/18 00:00 Mechanical Ventilator 12/26/18 00:00 98.8 65 25 87/51 (63) 100 12/25/18 23:30 68 23 96/50 (65) 100 12/25/18 23:00 69 22 88/52 (64) 100 12/25/18 22:33 72 25 35 12/25/18 22:30 73 24 94/55 (68) 100 12/25/18 22:20 125/64 12/25/18 22:00 73 20 93/51 (65) 100 12/25/18 21:59 99.3 12/25/18 21:32 77 29 35 12/25/18 21:30 77 25 97/48 (64) 100 12/25/18 21:00 83 30 92/46 (61) 100 12/25/18 20:30 84 29 90/49 (63) 99 12/25/18 20:00 99.5 75 29 107/52 (70) 99 12/25/18 20:00 71 12/25/18 20:00 35 12/25/18 20:00 Mechanical Ventilator 12/25/18 19:30 71 23 112/56 (74) 99 12/25/18 19:10 72 31 35 12/25/18 19:00 71 20 118/60 (79) 97 12/25/18 18:00 73 19 125/64 (84) 100 12/25/18 18:00 125/64 12/25/18 17:30 83 23 95/41 (59) 93 12/25/18 17:00 72 24 122/63 (82) 100 12/25/18 17:00 122/63 12/25/18 16:56 79 23 35 12/25/18 16:41 89/47 12/25/18 16:30 82 25 89/47 (61) 98 12/25/18 16:00 35 12/25/18 16:00 74 12/25/18 16:00 99.2 74 25 125/64 (84) 100 12/25/18 16:00 Mechanical Ventilator 12/25/18 15:30 66 25 122/61 (81) 100 12/25/18 15:00 115/60 12/25/18 15:00 66 23 115/60 (78) 100 12/25/18 14:52 78 22 35 12/25/18 14:30 65 22 112/60 (77) 100 12/25/18 14:20 112/60 12/25/18 14:06 119/55 12/25/18 14:00 63 20 119/55 (76) 98 12/25/18 13:30 108/56 12/25/18 13:30 65 20 75/43 (54) 100 12/25/18 13:00 64 20 80/40 (53) 100 12/25/18 13:00 83/46 12/25/18 12:54 86/51 Intake and Output 12/25/18 12/26/18 19:00 07:00 Intake Total 3397.5 ml 880 ml Output Total 1045 ml 555 ml Balance 2352.5 ml 325 ml Intake Free Water 360 ml 160 ml IV Total 2657.5 ml 300 ml Tube Feeding 380 ml 420 ml Output Urine Total 645 ml 555 ml Stool Total 400 ml Laboratory Tests Test 12/26/18 04:00 12/26/18 05:00 12/26/18 08:35 Urine Color Yellow Urine Appearance Slightly cloudy Urine pH 5 (4.5-8.0) Urine Specific [place] 1.020 (1.005-1.035) Urine Protein 2+ (NEGATIVE) H Urine Glucose (UA) Negative (NEGATIVE) Urine Ketones Negative (NEGATIVE) Urine Blood Negative (NEGATIVE) Urine Nitrite Negative (NEGATIVE) Urine Bilirubin Negative (NEGATIVE) Urine Urobilinogen Normal MG/DL (0.0-1.0) Urine Leukocyte Esterase 1+ (NEGATIVE) H Urine RBC 0-2 /HPF (0 - 0) H Urine WBC 2-4 /HPF (0 - 0) Urine Squamous Epithelial Cells Occasional /LPF Urine Bacteria Occasional /HPF (NONE) Urine Yeast Few /HPF (NONE) H White Blood Count 8.7 K/UL (4.8-10.8) Red Blood Count 3.52 M/UL (4.70-6.10) L Hemoglobin 10.6 G/DL (14.2-18.0) #L Hematocrit 32.4 % (42.0-52.0) #L Mean Corpuscular Volume 92 FL (80-99) Mean Corpuscular Hemoglobin 30.0 PG (27.0-31.0) Mean Corpuscular Hemoglobin Concent 32.6 G/DL (32.0-36.0) Red Cell Distribution Width 14.9 % (11.6-14.8) H Platelet Count 224 K/UL (150-450) Mean Platelet Volume 9.0 FL (6.5-10.1) Neutrophils (%) (Auto) 78.5 % (45.0-75.0) H Lymphocytes (%) (Auto) 10.8 % (20.0-45.0) L Monocytes (%) (Auto) 4.7 % (1.0-10.0) Eosinophils (%) (Auto) 5.5 % (0.0-3.0) H Basophils (%) (Auto) 0.5 % (0.0-2.0) Sodium Level 144 MMOL/L (136-145) Potassium Level 3.0 MMOL/L (3.5-5.1) L Chloride Level 111 MMOL/L (98-107) H Carbon Dioxide Level 19 MMOL/L (21-32) L Anion Gap 14 mmol/L (5-15) Blood Urea Nitrogen 43 mg/dL (7-18) H Creatinine 0.9 MG/DL (0.55-1.30) Estimat Glomerular Filtration Rate mL/min (>60) Glucose Level 230 MG/DL (74-106) H Lactic Acid Level 1.30 mmol/L (0.4-2.0) Uric Acid 7.9 MG/DL (2.6-7.2) H Calcium Level 9.8 MG/DL (8.5-10.1) Phosphorus Level 3.8 MG/DL (2.5-4.9) Magnesium Level 2.1 MG/DL (1.8-2.4) Total Bilirubin 0.3 MG/DL (0.2-1.0) Aspartate Amino Transf (AST/SGOT) 23 U/L (15-37) Alanine Aminotransferase (ALT/SGPT) 14 U/L (12-78) Alkaline Phosphatase 121 U/L (46-116) H Troponin I 0.017 ng/mL (0.000-0.056) Pro-B-Type Natriuretic Peptide 1954 pg/mL (0-125) H Total Protein 7.4 G/DL (6.4-8.2) Albumin 1.2 G/DL (3.4-5.0) L Globulin 6.2 g/dL Albumin/Globulin Ratio 0.2 (1.0-2.7) L Digoxin Level 0.9 NG/ML (0.5-2.0) Arterial Blood pH 7.284 (7.350-7.450) Arterial Blood Partial Pressure CO2 35.2 mmHg (35.0-45.0) Arterial Blood Partial Pressure O2 141.3 mmHg (75.0-100.0) H Arterial Blood HCO3 16.3 mmol/L (22.0-26.0) *L Arterial Blood Oxygen Saturation 97.8 % (95-100) Arterial Blood Base Excess -9.5 (-2-2) *L Wong Test Positive Height (Feet): 5 Height (Inches): 8.00 Weight (Pounds): 120 General Appearance: WD/WN, no apparent distress, alert Cardiovascular: normal rate Respiratory/Chest: normal breath sounds, no respiratory distress Abdominal Exam: normal bowel sounds, non tender, soft, GT site Extremities: non-tender Cirilo Germain NP Dec 26, 2018 12:37
--- NOTE | 2018-12-26 12:54 | NUR ---
D/C SPEECH THERAPY SUMMARY: PT TRANSFERRED TO ICU, PLEASE RE-ORDER PASSY-MARY SPEAKING VALVE EVAL WHEN INDICATED. PLAN: D/C FROM SKILLED [facility] SERVICES AT THIS TIME. RE-ORDER CONSULT WHEN READY
--- NOTE | 2018-12-26 13:01 | NUR ---
NURSE NOTES: Pt resting comfortably. VSS. Will continue to monitor.
[2018-12-26] MEDS: DOPamine 400mg/250ml 250 ML IV SCH (13:20)
--- NOTE | 2018-12-26 13:24 | NUR ---
RD ASSESSMENT & RECOMMENDATIONS SEE CARE ACTIVITY FOR COMPLETE ASSESSMENT DAILY ESTIMATED NEEDS: Needs based on critical care, wound/ 63kg 22-30 kcals/kg 3315-3207 total kcals 1.5-2 g protein/kg 94-126 g total protein 25-30 mL/kg 1335-4050 total fluid mLs NUTRITION DIAGNOSIS: 1) Increased kcal and protein needs r/t wound healing as evidenced by pt w/ multiple advanced wounds, including unstageable wound at L earlobe. 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 3) Altered nutrition related lab values r/t clinical status as evidenced by hyperglycemia (BG 247 220), elev K (5.2, 5.7- now 3.0), elev Na (148), elev BUN (43). CURRENT TF: NEPRO @35ml/hr + PS x3 ENTERAL NUTRITION RECOMMENDATIONS: Nepro @ 35ml/hr x 24 hrs + Prosource 1pkt TID to provide 840ml, 1512kcal, 68g +33g prot, 611ml free water - Maintain TF at goal as tolerated w/ hemodynamic stability. - Add Prosource 1pkt TID for protein needs - Keep HOB >30degrees - Rec to increase water flushes: Rec 150ml q 4hrs ADDITIONAL RECOMMENDATIONS: * RE-calibrate bed scale wt for accurate CBW * Monitor K closely- Rec TF change to Nepro (See above) * Wound care: add MITCHELL BID + Vit C 500mg QD * Monitor BGs closely, consider endo consult for improved BG control * Consider adding long acting insulin for improved BG control. * Trophic feeds of TF w/ low BP: Nepro @5-10ml/hr
--- NOTE | 2018-12-26 13:25 | Infectious Diseases Prog Note ---
Assessment/Plan Assessment/Plan Assessment: Gram positive bacteremia- PICC line infection 12/23 SP -Removal of PICC line - -12/20 1/ E. fecalis (S Van, amp), 12 MRSA. PICC line; Peripheral NTD; Bcx NTD; 12/23 NTD Septic shock , SP Severe Sepsis 2ry to GNR, sp Rx -12/24 CXR: Bilateral interstitial and airspace opacities, worse in the right upper lobe, slightly worse than prior study. -12/21 CXR: Bilateral interstitial and airspace opacities, associated bronchiectasis are again demonstrated. There is blunting of the left costophrenic sulcus again demonstrated. -12/17 CXR: No significant interval change in the diffuse patchy bilateral reticular interstitial and airspace opacities. -CXR: Probable small left pleural effusion, also evident on prior study 2017. Bilateral interstitial disease, unchanged, suspect chronic. Correlate with clinical findings -sp CX MDR PsA (S Gentamicin, AMikacin, Cefepime, Aztreonam, Tobramycin); repeats sp cx 12/20 MRSA; likely colonzier as vent settings stable GNR bacteremia, likely from UTI -CT abd/p: Findings consistent with uncomplicated nonnecrotizing acute pancreatitis. No evidence of associated peripancreatic abscess Surgical changes as described, including right lower quadrant ileostomy, subtotal colectomy with Haroldo procedure. Wall thickening of the Haroldo pouch. This could indicate inflammation. However, this is also present on both of the prior 2 exams and may be baseline for this patien. Evidence of mild anasarca, with edema of the subcutaneous fat. This is a new finding. Chronic appearing decubitus changes of the bilateral ischia. Correlate with clinical findings. Complete left lower lobe consolidation. This is similar to both of the prior CTs, andis likely a chronic finding. There is progressive chronic interstitial fibrotic change involving the right middle lobe. There is also right lower lobe granulomatous calcification, Extensive pulmonary parenchymal opacities bilaterally may reflect acute inflammation/infection, edema, progressive chronic scarring, orcombination of the above. These are considerably more extensive than on the prior study -u/a 10-15, nit neg, luek +3; ucx 50-60k Enterococcus (Vanco resist; S AMp), 40-50 K Proteus -6 Bcx 3/4 Proteus; 3/7 Bcx 1/4 Proteus (S Aztreonam; R Cipro, levo; I Imipenem); Acute pancreatitis -lipase ~1k Fever - recurrent- in the setting of bacteremia and pancreaitis; Leukocytosis , resolved--in the setting of bacteremia, UTI and acute pancreatitis CONS bacteremia- likely contaminant -12/12 Bcx 1/4 CONS; 12/14 Bcx Neg MAULIK, improving dysphagia s/p peg COPD GBS quadriplegia chronic resp failure s/p trach HTN CVA, nonverbal anemia [facility] resident Plan: -Linezolid # 6/-21 -12/22 SP Aztreonam # -12/21 SP INH tobramycin #7 -12/16 SP IV Daptomycin #7 -f/u Repeat cultures -Monitor CBC/CMP, temperatures -PEG/Trach care -Aspiration precautions -management of acute pancreatitis per primary team. Subjective Allergies: Coded Allergies: PENICILLINS (Unverified Allergy, Unknown, 02/26/16) POLYMYXIN B (Unverified Allergy, Unknown, 02/26/16) VANCOMYCIN (Unverified Allergy, Unknown, 02/26/16) Subjective transferred to ICU yesterday due to hypotension requiring pressors; now off levophed afebrile > 24 hrs leukocytosis resolved repeat Bcx NTD Objective Vital Signs Last 24 Hour Vital Signs Date Time Temp Pulse Resp B/P (MAP) Pulse Ox O2 Delivery O2 Flow Rate FiO2 12/26/18 12:00 98.0 23 88/61 (70) 100 12/26/18 11:17 81 23 35 12/26/18 11:00 82 23 105/63 (77) 100 12/26/18 10:00 81 25 103/58 (73) 100 12/26/18 09:28 82 25 35 12/26/18 09:00 80 25 108/58 (75) 100 12/26/18 08:00 35 12/26/18 08:00 97.9 78 27 106/57 (73) 100 12/26/18 08:00 Mechanical Ventilator 12/26/18 08:00 75 12/26/18 07:29 74 28 35 12/26/18 07:00 76 28 104/58 (73) 100 12/26/18 06:00 72 21 100/55 (70) 100 12/26/18 05:00 69 27 104/61 (75) 100 12/26/18 04:54 67 26 35 12/26/18 04:30 66 23 108/58 (75) 100 12/26/18 04:00 67 12/26/18 04:00 Mechanical Ventilator 12/26/18 04:00 98.3 66 24 100/64 (76) 100 12/26/18 04:00 35 12/26/18 03:30 65 23 102/62 (75) 100 12/26/18 03:05 69 24 35 12/26/18 03:00 69 19 104/36 (58) 100 12/26/18 02:30 66 24 94/58 (70) 100 12/26/18 02:00 63 21 107/63 (78) 100 12/26/18 01:00 67 19 105/62 (76) 100 12/26/18 00:55 64 22 35 12/26/18 00:30 65 25 85/51 (62) 100 12/26/18 00:00 Mechanical Ventilator 12/26/18 00:00 98.8 65 25 87/51 (63) 100 12/25/18 23:30 68 23 96/50 (65) 100 12/25/18 23:00 69 22 88/52 (64) 100 12/25/18 22:33 72 25 35 12/25/18 22:30 73 24 94/55 (68) 100 12/25/18 22:20 125/64 12/25/18 22:00 73 20 93/51 (65) 100 12/25/18 21:59 99.3 12/25/18 21:32 77 29 35 12/25/18 21:30 77 25 97/48 (64) 100 12/25/18 21:00 83 30 92/46 (61) 100 12/25/18 20:30 84 29 90/49 (63) 99 12/25/18 20:00 99.5 75 29 107/52 (70) 99 12/25/18 20:00 71 12/25/18 20:00 35 12/25/18 20:00 Mechanical Ventilator 12/25/18 19:30 71 23 112/56 (74) 99 12/25/18 19:10 72 31 35 12/25/18 19:00 71 20 118/60 (79) 97 12/25/18 18:00 73 19 125/64 (84) 100 12/25/18 18:00 125/64 12/25/18 17:30 83 23 95/41 (59) 93 12/25/18 17:00 72 24 122/63 (82) 100 12/25/18 17:00 122/63 12/25/18 16:56 79 23 35 12/25/18 16:41 89/47 12/25/18 16:30 82 25 89/47 (61) 98 12/25/18 16:00 35 12/25/18 16:00 74 12/25/18 16:00 99.2 74 25 125/64 (84) 100 12/25/18 16:00 Mechanical Ventilator 12/25/18 15:30 66 25 122/61 (81) 100 12/25/18 15:00 115/60 12/25/18 15:00 66 23 115/60 (78) 100 12/25/18 14:52 78 22 35 12/25/18 14:30 65 22 112/60 (77) 100 12/25/18 14:20 112/60 12/25/18 14:06 119/55 12/25/18 14:00 63 20 119/55 (76) 98 12/25/18 13:30 108/56 12/25/18 13:30 65 20 75/43 (54) 100 Height (Feet): 5 Height (Inches): 8.00 Weight (Pounds): 120 Objective HEENT: Eyes were normal. ENT, mucous membranes were not dehydrated. NECK: Supple. There was no goiter. No mass. No lymphadenopathy. There was no JVD. No bruits. Carotid upstroke was 2+. LUNGS: Clear. HEART: PMI was in the fifth left intercostal space in midclavicular line. There was normal S1 and normal S2. There was no murmur. No arrhythmia. No S3. No S4. No pericardial rub. ABDOMEN: Soft and nontender without organomegaly. There were no masses palpable. Normal bowel sounds without bruits. There was no guarding. No rebound tenderness. No ascites. No hernia. No CVA tenderness. EXTREMITIES: No cyanosis, no clubbing, and no edema. Extremities were warm. Laboratory Tests Test 12/26/18 04:00 12/26/18 05:00 3/25/19 08:35 Urine Color Yellow Urine Appearance Slightly cloudy Urine pH 5 (4.5-8.0) Urine Specific [place] 1.020 (1.005-1.035) Urine Protein 2+ (NEGATIVE) H Urine Glucose (UA) Negative (NEGATIVE) Urine Ketones Negative (NEGATIVE) Urine Blood Negative (NEGATIVE) Urine Nitrite Negative (NEGATIVE) Urine Bilirubin Negative (NEGATIVE) Urine Urobilinogen Normal MG/DL (0.0-1.0) Urine Leukocyte Esterase 1+ (NEGATIVE) H Urine RBC 0-2 /HPF (0 - 0) H Urine WBC 2-4 /HPF (0 - 0) Urine Squamous Epithelial Cells Occasional /LPF Urine Bacteria Occasional /HPF (NONE) Urine Yeast Few /HPF (NONE) H White Blood Count 8.7 K/UL (4.8-10.8) Red Blood Count 3.52 M/UL (4.70-6.10) L Hemoglobin 10.6 G/DL (14.2-18.0) #L Hematocrit 32.4 % (42.0-52.0) #L Mean Corpuscular Volume 92 FL (80-99) Mean Corpuscular Hemoglobin 30.0 PG (27.0-31.0) Mean Corpuscular Hemoglobin Concent 32.6 G/DL (32.0-36.0) Red Cell Distribution Width 14.9 % (11.6-14.8) H Platelet Count 224 K/UL (150-450) Mean Platelet Volume 9.0 FL (6.5-10.1) Neutrophils (%) (Auto) 78.5 % (45.0-75.0) H Lymphocytes (%) (Auto) 10.8 % (20.0-45.0) L Monocytes (%) (Auto) 4.7 % (1.0-10.0) Eosinophils (%) (Auto) 5.5 % (0.0-3.0) H Basophils (%) (Auto) 0.5 % (0.0-2.0) Sodium Level 144 MMOL/L (136-145) Potassium Level 3.0 MMOL/L (3.5-5.1) L Chloride Level 111 MMOL/L (98-107) H Carbon Dioxide Level 19 MMOL/L (21-32) L Anion Gap 14 mmol/L (5-15) Blood Urea Nitrogen 43 mg/dL (7-18) H Creatinine 0.9 MG/DL (0.55-1.30) Estimat Glomerular Filtration Rate mL/min (>60) Glucose Level 230 MG/DL (74-106) H Lactic Acid Level 1.30 mmol/L (0.4-2.0) Uric Acid 7.9 MG/DL (2.6-7.2) H Calcium Level 9.8 MG/DL (8.5-10.1) Phosphorus Level 3.8 MG/DL (2.5-4.9) Magnesium Level 2.1 MG/DL (1.8-2.4) Total Bilirubin 0.3 MG/DL (0.2-1.0) Aspartate Amino Transf (AST/SGOT) 23 U/L (15-37) Alanine Aminotransferase (ALT/SGPT) 14 U/L (12-78) Alkaline Phosphatase 121 U/L (46-116) H Troponin I 0.017 ng/mL (0.000-0.056) Pro-B-Type Natriuretic Peptide 1954 pg/mL (0-125) H Total Protein 7.4 G/DL (6.4-8.2) Albumin 1.2 G/DL (3.4-5.0) L Globulin 6.2 g/dL Albumin/Globulin Ratio 0.2 (1.0-2.7) L Digoxin Level 0.9 NG/ML (0.5-2.0) Arterial Blood pH 7.284 (7.350-7.450) Arterial Blood Partial Pressure CO2 35.2 mmHg (35.0-45.0) Arterial Blood Partial Pressure O2 141.3 mmHg (75.0-100.0) H Arterial Blood HCO3 16.3 mmol/L (22.0-26.0) *L Arterial Blood Oxygen Saturation 97.8 % (95-100) Arterial Blood Base Excess -9.5 (-2-2) *L Wong Test Positive Current Medications Medications (Trade) Dose Ordered Sig/[place] Route PRN Reason Start Time Stop Time Status Last Admin Dose Admin Acetaminophen (Tylenol) 650 mg Q4H PRN GT For Pain 12/25/18 13:00 01/06/19 16:59 Acetaminophen (Tylenol) 650 mg Q4H PRN GT fever 12/25/18 13:45 01/06/19 16:59 12/25/18 21:29 Calcitonin [place] (Miacalcin) 1 sprays DAILY NASAL 12/26/18 09:00 01/24/19 10:59 12/26/18 09:15 Chlorhexidine Gluconate (Sandra-Hex 2%) 1 applic DAILY@2000 TOPIC 12/25/18 20:00 01/09/19 19:59 12/25/18 20:26 Dextrose (Dextrose 50%) 25 ml Q30M PRN IV Hypoglycemia 12/25/18 12:00 01/09/19 13:59 Dextrose (Dextrose 50%) 50 ml Q30M PRN IV Hypoglycemia 12/25/18 12:00 01/09/19 13:59 Diltiazem HCl (Cardizem) 10 mg BIDPRN PRN IVP FOR HR >140 12/26/18 08:45 01/11/19 08:44 Dopamine HCl/ Dextrose 250 ml @ 0 mls/hr Q24H IV 12/25/18 13:20 01/24/19 13:19 Gemfibrozil (Lopid) 600 mg TWICE A DAY GT 12/25/18 18:00 01/14/19 10:14 12/26/18 08:34 Heparin Sodium (Porcine) (Heparin 5000 units/ml) 5,000 units EVERY 12 HOURS SUBQ 12/25/18 21:00 01/06/19 20:59 12/26/18 08:42 Insulin Aspart (NovoLOG) EVERY 4 HOURS SUBQ 12/25/18 13:00 01/09/19 04:59 12/26/18 13:15 Lansoprazole (Prevacid) 30 mg DAILY GT 12/26/18 09:00 01/16/19 08:59 12/26/18 08:34 Linezolid 300 ml @ 300 mls/hr Q12HR IVPB 12/25/18 21:00 01/01/19 08:59 12/26/18 08:37 Metformin HCl (Glucophage) 500 mg BID GT 12/25/18 18:00 01/22/19 17:59 12/26/18 08:34 Nateglinide (Starlix) 120 mg Q8HR ORAL 12/25/18 14:00 01/17/19 21:59 12/26/18 05:43 Nitroglycerin (Ntg) 0.4 mg Q5M PRN SL Prn Chest Pain 12/25/18 11:45 01/06/19 16:59 Norepinephrine Bitartrate 4 mg/ Dextrose 250 ml @ 0 mls/hr Q24H IV 12/25/18 12:15 01/24/19 12:14 12/25/18 22:20 Ondansetron HCl (Zofran) 4 mg Q6H PRN IVP Nausea & Vomiting 12/25/18 17:00 01/06/19 16:59 Polyethylene Glycol (Miralax) 17 gm DAILYPRN PRN GT Constipation 12/26/18 09:45 01/06/19 16:59 Potassium Chloride 100 ml @ 100 mls/hr Q1HR IVPB 12/26/18 10:00 12/26/18 13:59 12/26/18 12:40 Sodium Chloride 400 ml @ 100 mls/hr Q4H IV 12/26/18 10:00 12/26/18 13:59 12/26/18 10:06 Vasopressin 100 units/Sodium Chloride 100 ml @ 0 mls/hr Q24H IV 12/25/18 12:15 01/24/19 12:14 12/25/18 13:15 Aminah Champagne M.D. Dec 26, 2018 13:25
--- NOTE | 2018-12-26 14:09 | Surgery Progress Note ---
Surgery Progress Note Subjective Additional Comments leukocytosis resolved. off pressors. in ICU. ill appearing. Objective Last 24 Hour Vital Signs Date Time Temp Pulse Resp B/P (MAP) Pulse Ox O2 Delivery O2 Flow Rate FiO2 12/26/18 14:00 87 26 103/60 (74) 100 12/26/18 13:20 108/57 12/26/18 13:00 86 26 35 12/26/18 13:00 84 25 108/57 (74) 100 12/26/18 12:00 Mechanical Ventilator 12/26/18 12:00 35 12/26/18 12:00 98.0 23 98/61 (73) 100 12/26/18 12:00 86 12/26/18 11:17 81 23 35 12/26/18 11:00 82 23 105/63 (77) 100 12/26/18 10:00 81 25 103/58 (73) 100 12/26/18 09:28 82 25 35 12/26/18 09:00 80 25 108/58 (75) 100 12/26/18 08:00 35 12/26/18 08:00 97.9 78 27 106/57 (73) 100 12/26/18 08:00 Mechanical Ventilator 12/26/18 08:00 75 12/26/18 07:29 74 28 35 12/26/18 07:00 76 28 104/58 (73) 100 12/26/18 06:00 72 21 100/55 (70) 100 12/26/18 05:00 69 27 104/61 (75) 100 12/26/18 04:54 67 26 35 12/26/18 04:30 66 23 108/58 (75) 100 12/26/18 04:00 67 12/26/18 04:00 Mechanical Ventilator 12/26/18 04:00 98.3 66 24 100/64 (76) 100 12/26/18 04:00 35 12/26/18 03:30 65 23 102/62 (75) 100 12/26/18 03:05 69 24 35 12/26/18 03:00 69 19 104/36 (58) 100 12/26/18 02:30 66 24 94/58 (70) 100 12/26/18 02:00 63 21 107/63 (78) 100 12/26/18 01:00 67 19 105/62 (76) 100 12/26/18 00:55 64 22 35 12/26/18 00:30 65 25 85/51 (62) 100 12/26/18 00:00 Mechanical Ventilator 12/26/18 00:00 98.8 65 25 87/51 (63) 100 12/25/18 23:30 68 23 96/50 (65) 100 12/25/18 23:00 69 22 88/52 (64) 100 12/25/18 22:33 72 25 35 12/25/18 22:30 73 24 94/55 (68) 100 12/25/18 22:20 125/64 12/25/18 22:00 73 20 93/51 (65) 100 12/25/18 21:59 99.3 12/25/18 21:32 77 29 35 12/25/18 21:30 77 25 97/48 (64) 100 12/25/18 21:00 83 30 92/46 (61) 100 12/25/18 20:30 84 29 90/49 (63) 99 12/25/18 20:00 99.5 75 29 107/52 (70) 99 12/25/18 20:00 71 12/25/18 20:00 35 12/25/18 20:00 Mechanical Ventilator 12/25/18 19:30 71 23 112/56 (74) 99 12/25/18 19:10 72 31 35 12/25/18 19:00 71 20 118/60 (79) 97 12/25/18 18:00 73 19 125/64 (84) 100 12/25/18 18:00 125/64 12/25/18 17:30 83 23 95/41 (59) 93 12/25/18 17:00 72 24 122/63 (82) 100 12/25/18 17:00 122/63 12/25/18 16:56 79 23 35 12/25/18 16:41 89/47 12/25/18 16:30 82 25 89/47 (61) 98 12/25/18 16:00 35 12/25/18 16:00 74 12/25/18 16:00 99.2 74 25 125/64 (84) 100 12/25/18 16:00 Mechanical Ventilator 12/25/18 15:30 66 25 122/61 (81) 100 12/25/18 15:00 115/60 12/25/18 15:00 66 23 115/60 (78) 100 12/25/18 14:52 78 22 35 12/25/18 14:30 65 22 112/60 (77) 100 12/25/18 14:20 112/60 I&O Intake and Output 12/25/18 12/26/18 19:00 07:00 Intake Total 3397.5 ml 880 ml Output Total 1045 ml 555 ml Balance 2352.5 ml 325 ml Intake Free Water 360 ml 160 ml IV Total 2657.5 ml 300 ml Tube Feeding 380 ml 420 ml Output Urine Total 645 ml 555 ml Stool Total 400 ml Dressing: saturated Wound: other Drains: other Cardiovascular: RSR Respiratory: decreased breath sounds Abdomen: soft, non-distended, decreased bowel sounds Extremities: other Laboratory Tests Test 12/26/18 04:00 12/26/18 05:00 12/26/18 08:35 Urine Color Yellow Urine Appearance Slightly cloudy Urine pH 5 (4.5-8.0) Urine Specific [place] 1.020 (1.005-1.035) Urine Protein 2+ (NEGATIVE) H Urine Glucose (UA) Negative (NEGATIVE) Urine Ketones Negative (NEGATIVE) Urine Blood Negative (NEGATIVE) Urine Nitrite Negative (NEGATIVE) Urine Bilirubin Negative (NEGATIVE) Urine Urobilinogen Normal MG/DL (0.0-1.0) Urine Leukocyte Esterase 1+ (NEGATIVE) H Urine RBC 0-2 /HPF (0 - 0) H Urine WBC 2-4 /HPF (0 - 0) Urine Squamous Epithelial Cells Occasional /LPF Urine Bacteria Occasional /HPF (NONE) Urine Yeast Few /HPF (NONE) H White Blood Count 8.7 K/UL (4.8-10.8) Red Blood Count 3.52 M/UL (4.70-6.10) L Hemoglobin 10.6 G/DL (14.2-18.0) #L Hematocrit 32.4 % (42.0-52.0) #L Mean Corpuscular Volume 92 FL (80-99) Mean Corpuscular Hemoglobin 30.0 PG (27.0-31.0) Mean Corpuscular Hemoglobin Concent 32.6 G/DL (32.0-36.0) Red Cell Distribution Width 14.9 % (11.6-14.8) H Platelet Count 224 K/UL (150-450) Mean Platelet Volume 9.0 FL (6.5-10.1) Neutrophils (%) (Auto) 78.5 % (45.0-75.0) H Lymphocytes (%) (Auto) 10.8 % (20.0-45.0) L Monocytes (%) (Auto) 4.7 % (1.0-10.0) Eosinophils (%) (Auto) 5.5 % (0.0-3.0) H Basophils (%) (Auto) 0.5 % (0.0-2.0) Sodium Level 144 MMOL/L (136-145) Potassium Level 3.0 MMOL/L (3.5-5.1) L Chloride Level 111 MMOL/L (98-107) H Carbon Dioxide Level 19 MMOL/L (21-32) L Anion Gap 14 mmol/L (5-15) Blood Urea Nitrogen 43 mg/dL (7-18) H Creatinine 0.9 MG/DL (0.55-1.30) Estimat Glomerular Filtration Rate mL/min (>60) Glucose Level 230 MG/DL (74-106) H Lactic Acid Level 1.30 mmol/L (0.4-2.0) Uric Acid 7.9 MG/DL (2.6-7.2) H Calcium Level 9.8 MG/DL (8.5-10.1) Phosphorus Level 3.8 MG/DL (2.5-4.9) Magnesium Level 2.1 MG/DL (1.8-2.4) Total Bilirubin 0.3 MG/DL (0.2-1.0) Aspartate Amino Transf (AST/SGOT) 23 U/L (15-37) Alanine Aminotransferase (ALT/SGPT) 14 U/L (12-78) Alkaline Phosphatase 121 U/L (46-116) H Troponin I 0.017 ng/mL (0.000-0.056) Pro-B-Type Natriuretic Peptide 1954 pg/mL (0-125) H Total Protein 7.4 G/DL (6.4-8.2) Albumin 1.2 G/DL (3.4-5.0) L Globulin 6.2 g/dL Albumin/Globulin Ratio 0.2 (1.0-2.7) L Digoxin Level 0.9 NG/ML (0.5-2.0) Arterial Blood pH 7.284 (7.350-7.450) Arterial Blood Partial Pressure CO2 35.2 mmHg (35.0-45.0) Arterial Blood Partial Pressure O2 141.3 mmHg (75.0-100.0) H Arterial Blood HCO3 16.3 mmol/L (22.0-26.0) *L Arterial Blood Oxygen Saturation 97.8 % (95-100) Arterial Blood Base Excess -9.5 (-2-2) *L Wong Test Positive Plan Problems: (1) Decubitus skin ulcer Assessment & Plan: Pt presented on admission with multiple pressure injuries and Skin erosion. Pt has trach and no evidence of skin breakdown noted under trach collar. Unstageable pressure injury noted to L earlobe. Stable dry brown eschar noted(L) 0.7cm x (W)0.5cm. Gross erythema with denudement and multiple scattered partial thickness wounds noted to buttocks and base of scrotum extending into both posterior upper thighs.Moderate amt sanguineous exudate noted upon removal of drsgs. 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 Moderate amt sanguineous exudate noted (L)3cm x (W)1cm x (D)7.4cm.Erythema periwound secondary to skin erosions. Partially opened DTPI L ischium .Base of wound purple,fluctuant with red borders.Open areas at base of this wound are beefy red in colour.Moderate amt sanguineous exudate noted.(L)7cm x (W)6.8cm. DTPI R ischium.Wound is fluctuant-purple in center with surrounding Maroon colour, and is partially opened with a small area of 5% that is necrotic.(L) 6.5cm x (W)5.5cm. Red skin erosion periwound. Partial thickness pressure injury L hip. Base of wound is moist -viable. Edges adherent and dry. Periwound without erythema or induration(L)1.2cm x (W)0.5cm. Elongate partial thickness wound posterior upper L thigh .Base of wound is moist -viable .Small amt sanguineous exudate noted. (+) maceration along borders. Erythema without induration or elevation in skin temp noted.(L)2cm x (W )9.4cm. DTPI noted to R heel .Base of injury is indurated and maroon in colour. Periwound is firm without erythema. (L)1.5cm x (W)1cm.R heel without evidence of skin breakdown. Tx.Plan: Cleanse Sacrum with Saline. Loosely pack with Hydrogel impregnated Kerlix. Apply Triad Paste periwound. Cover with ABD pad. Daily and prn. Cleanse R and L ischial wounds with Saline. Apply Moisture Barrier Paste.Cover with abd pads Daily and prn. Apply Moisture Barrier to skin erosions on buttocks,scrotum, and posterior aspects of both thighs.Cover with ABD pad daily and prn. Cleanse wound L hip with Saline. Apply Moisture Barrier paste .Cover with Optifoam drsg Daily and prn. Cleanse wound posterior upper L thigh with saline .Apply Hydrogel. Cover with Optifoam drsg Daily and prn. Apply Cavilon Skin Barrier to L earlobe daily. Please monitor. Apply Cavilon Skin Barrier to L heel. Cover with Optifoam drsg. Change every 7 days and prn. Apply Cavilon Skin Barrier to R heel. Cover with Optifoam drsg .Change every 7 days and prn. Air fluidized mattress. Reposition every 2hours or as tolerated. Off-load heels with pillow. (2) Acute and chronic respiratory failure Assessment & Plan: cont with breathing treatments trach stable trach site clean will change dressings daily (3) Acute pancreatitis Assessment & Plan: Findings consistent with uncomplicated nonnecrotizing acute pancreatitis. No evidence of associated peripancreatic abscess Surgical changes as described, including right lower quadrant ileostomy, subtotal colectomy with Haroldo procedure. Wall thickening of the Haroldo pouch. This could indicate inflammation. However, this is also present on both of the prior 2 exams and may be baseline for this patient Evidence of mild anasarca, with edema of the subcutaneous fat. This is a new finding Chronic appearing decubitus changes of the bilateral ischia. Correlate with clinical findings Complete left lower lobe consolidation. This is similar to both of the prior CTs , and is likely a chronic finding. There is progressive chronic interstitial fibrotic change involving the right middle lobe. There is also right lower lobe granulomatous calcification Extensive pulmonary parenchymal opacities bilaterally may reflect acute inflammation/infection, edema, progressive chronic scarring, or combination of the above. These are considerably more extensive than on the prior study Trace bilateral pleural fluid New finding of nonobstructive right renal collecting system calculs 4 mm calculus within the bladder lumen. This may represent a bladder calculus, a calculus and left ureteral orifice, or recently passed stone. If either of the latter, no evidence of resultant hydronephrosis or hydroureter Suprapubic catheter. This is a new finding since the 2016 exams. Interim removal of previously demonstrated Bledsoe catheter Gastrostomy Left renal cysts. Subcentimeter low-attenuation right renal lesions, too small to characterize, most likely benign simple cysts. No further follow-up necessary elevated amylase/lipase trending down leukocytosis GNR Bacteremia transfused anemia Unfortunately patient not able to participate in exam and difficult to identify if clinically pancreatitis or just laboratory data. Recent CT with uncomplicated pancreatitis but enzymes still remain elevated. Patient tolerated tube feeds. Patient with gram-negative belle bacteremia likely from UTI. Patient remains febrile intermittently with worsening leukocytosis on IV antibiotics. -no acute surgical intervention planned -transfuse as per hematology -Abx as per ID -trend lip/[place] - recent finding based on CT given patient cannot given history or participate in exam. CT with uncomplicated pancreatitis. okay for diet / feeds for now. IV fluids Javier Ricardo Dec 26, 2018 14:09
--- NOTE | 2018-12-26 15:32 | NUR ---
NURSE NOTES: Pt turned and repositioned. VSS. No acute distress.
--- NOTE | 2018-12-26 16:51 | General Progress Note ---
Assessment/Plan Assessment/Plan Assessment/Recs: # Leukocytosis/Elevated white blood cell count,potentially due to infection with gram negative bacteremia, with uti and on abx --> have reviewed peripheral smear and bandemia/neutrophilia noted on initial smear --> continue antibiotics if they have been started by ID team, titrate as needed --> monitor for resolution ---> WBC trend: 11-->16-->15-->14-->11-->12-->10.8-->11-->12 # Anemia of chronic disease due to underlying chronic medical issues, multifactorial --> Anemia workup has been reviewed, Ferritin [id number] --> No evidence of hemolysis is noted, peripheral smear has been reviewed. --> Hgb goal >7. Transfuse prn. --> Epogen or iron at this time is not particularly indicated --> Medications have been reviewed --> HGB trend: 7.8-->7.6-->6.2-->6.4->7.1-->8.7-->9.1-->8.4-->7.8-->9.4-->7.3--> 10.6 --> received prbc 12/25 # Thrombocytopenia - potential causes multifactorial, evaluate liver and viral etiologies to begin, also could be related to underlying medications --> Hep panel and HIV negative --> US abd to evaluate for cirrhosis and hsm reviewed --> Peripheral smear ordered to evaluate for blasts/schistocytes does not reveal any --> abx and other meds have been reviewed --> ok for ppx if plt >50k w/ either heparin or lovenox --> Transfuse if Plt < 20k and fever, or if Plt < 10k without fever # Severe prerenal azotemia, on ivf --> improve po oral intake and consider appetite stimulant # Severe Sepsis, CXR: Probable small left pleural effusion, also evident on prior study 11/22/2017 --> appreciate ID recs # Bacteremia, likely from UTI, PNA --> tolerating abx well --> as per pulm The timing of this note does not necessarily reflect the time of the patient was seen. Greatly appreciate consultation! Subjective Respiratory: Denies: no symptoms, cough, orthopnea, shortness of breath, SOB with excertion, SOB at rest, sputum, stridor, wheezing, other Gastrointestinal/Abdominal: Denies: no symptoms, abdomen distended, abdominal pain, black stools, tarry stools, blood in stool, constipated, diarrhea, difficulty swallowing, nausea, poor appetite, poor fluid intake, rectal bleeding , vomiting, other Genitourinary: Denies: no symptoms, burning, discharge, frequency, flank pain, hematuria, incontinence, pain, urgency, other Endocrine: Denies: no symptoms, excessive sweating, flushing, intolerance to cold, intolerance to heat, increased hunger, increased thirst, increased urine, unexplained weight gain, unexplained weight loss, other Hematologic/Lymphatic: Denies: no symptoms, anemia, easy bleeding, easy bruising, other Allergies: Coded Allergies: PENICILLINS (Unverified Allergy, Unknown, 02/26/16) POLYMYXIN B (Unverified Allergy, Unknown, 02/26/16) VANCOMYCIN (Unverified Allergy, Unknown, 02/26/16) Subjective 12/11: seen by bedside, vent dependent, leukocytosis, 11, hgb 7, will transfuse, no events 12/12: awake, comfortable wbc trending up at 16, no events 12/13: hgb 6.4, receiving transfusion, , wbc remains elevated. no acute events 12/14: seen by bedside, awake, comfortable low grade fever, wbc remains elevated at 15, bacteremia on IV Abx, hgb 7.1, will transfuse as needed 12/15: Wbc remains elevated, no events reported, hgb trending up 12/16: seen by bedside, awake, comfortable, no events 12/18: seen in the room, on vent and trach, no events 12/19: reviewed cbc and appears relatively stable, on starlix, remains in sdu 12/20: seen by bedside, on vent, mild leukocytosis 12/21: Pt is resting , on vent, wbc trending up , no events 12/22: exam is essentially unchanged, on abx, have discussed with pcp, rn, wbc better 12/23: transfuse wbc 11, on abx 12/24: no events to report, on vent/trach care, without issue 12/26: in icu, resting comfortanly, off pressors Objective Last 24 Hour Vital Signs Date Time Temp Pulse Resp B/P (MAP) Pulse Ox O2 Delivery O2 Flow Rate FiO2 12/26/18 16:00 87 12/26/18 16:00 35 12/26/18 16:00 87 26 104/62 (76) 100 12/26/18 16:00 Mechanical Ventilator 12/26/18 15:16 85 26 35 12/26/18 15:00 86 26 103/56 (72) 98 12/26/18 14:00 87 26 103/60 (74) 100 12/26/18 13:20 108/57 12/26/18 13:00 86 26 35 12/26/18 13:00 84 25 108/57 (74) 100 12/26/18 12:00 Mechanical Ventilator 12/26/18 12:00 35 12/26/18 12:00 98.0 23 98/61 (73) 100 12/26/18 12:00 86 12/26/18 11:17 81 23 35 12/26/18 11:00 82 23 105/63 (77) 100 12/26/18 10:00 81 25 103/58 (73) 100 12/26/18 09:28 82 25 35 12/26/18 09:00 80 25 108/58 (75) 100 12/26/18 08:00 35 12/26/18 08:00 97.9 78 27 106/57 (73) 100 12/26/18 08:00 Mechanical Ventilator 12/26/18 08:00 75 12/26/18 07:29 74 28 35 12/26/18 07:00 76 28 104/58 (73) 100 12/26/18 06:00 72 21 100/55 (70) 100 12/26/18 05:00 69 27 104/61 (75) 100 12/26/18 04:54 67 26 35 12/26/18 04:30 66 23 108/58 (75) 100 12/26/18 04:00 67 12/26/18 04:00 Mechanical Ventilator 12/26/18 04:00 98.3 66 24 100/64 (76) 100 12/26/18 04:00 35 12/26/18 03:30 65 23 102/62 (75) 100 12/26/18 03:05 69 24 35 12/26/18 03:00 69 19 104/36 (58) 100 3/25/19 02:30 66 24 94/58 (70) 100 12/26/18 02:00 63 21 107/63 (78) 100 12/26/18 01:00 67 19 105/62 (76) 100 12/26/18 00:55 64 22 35 12/26/18 00:30 65 25 85/51 (62) 100 12/26/18 00:00 Mechanical Ventilator 12/26/18 00:00 98.8 65 25 87/51 (63) 100 12/25/18 23:30 68 23 96/50 (65) 100 12/25/18 23:00 69 22 88/52 (64) 100 12/25/18 22:33 72 25 35 12/25/18 22:30 73 24 94/55 (68) 100 12/25/18 22:20 125/64 12/25/18 22:00 73 20 93/51 (65) 100 12/25/18 21:59 99.3 12/25/18 21:32 77 29 35 12/25/18 21:30 77 25 97/48 (64) 100 12/25/18 21:00 83 30 92/46 (61) 100 12/25/18 20:30 84 29 90/49 (63) 99 12/25/18 20:00 99.5 75 29 107/52 (70) 99 12/25/18 20:00 71 12/25/18 20:00 35 12/25/18 20:00 Mechanical Ventilator 12/25/18 19:30 71 23 112/56 (74) 99 12/25/18 19:10 72 31 35 12/25/18 19:00 71 20 118/60 (79) 97 12/25/18 18:00 73 19 125/64 (84) 100 12/25/18 18:00 125/64 12/25/18 17:30 83 23 95/41 (59) 93 12/25/18 17:00 72 24 122/63 (82) 100 12/25/18 17:00 122/63 12/25/18 16:56 79 23 35 Intake and Output 12/25/18 12/26/18 19:00 07:00 Intake Total 3397.5 ml 880 ml Output Total 1045 ml 555 ml Balance 2352.5 ml 325 ml Intake Free Water 360 ml 160 ml IV Total 2657.5 ml 300 ml Tube Feeding 380 ml 420 ml Output Urine Total 645 ml 555 ml Stool Total 400 ml Laboratory Tests 12/26/18 04:00: Urine Color Yellow, Urine Appearance Slightly cloudy, Urine pH 5, Urine Specific [place] 1.020, Urine Protein 2+H, Urine Glucose (UA) Negative, Urine Ketones Negative, Urine Blood Negative, Urine Nitrite Negative, Urine Bilirubin Negative, Urine Urobilinogen Normal, Urine Leukocyte Esterase 1+H, Urine RBC 0- 2H, Urine WBC 2-4, Urine Squamous Epithelial Cells Occasional, Urine Bacteria Occasional, Urine Yeast FewH 12/26/18 05:00: White Blood Count 8.7, Red Blood Count 3.52L, Hemoglobin 10.6#L, Hematocrit 32.4 #L, Mean Corpuscular Volume 92, Mean Corpuscular Hemoglobin 30.0, Mean Corpuscular Hemoglobin Concent 32.6, Red Cell Distribution Width 14.9H, Platelet Count 224, Mean Platelet Volume 9.0, Neutrophils (%) (Auto) 78.5H, Lymphocytes (%) (Auto) 10.8L, Monocytes (%) (Auto) 4.7, Eosinophils (%) (Auto) 5.5H, Basophils (%) (Auto) 0.5, Sodium Level 144, Potassium Level 3.0L, Chloride Level 111H, Carbon Dioxide Level 19L, Anion Gap 14, Blood Urea Nitrogen 43H, Creatinine 0.9, Estimat Glomerular Filtration Rate , Glucose Level 230H, Lactic Acid Level 1.30, Uric Acid 7.9H, Calcium Level 9.8, Phosphorus Level 3.8, Magnesium Level 2.1, Total Bilirubin 0.3, Aspartate Amino Transf (AST/SGOT) 23, Alanine Aminotransferase (ALT/SGPT) 14, Alkaline Phosphatase 121H, Troponin I 0.017, Pro-B-Type Natriuretic Peptide 1954H, Total Protein 7.4, Albumin 1.2L, Globulin 6.2, Albumin/Globulin Ratio 0.2L, Digoxin Level 0.9 12/26/18 08:35: Arterial Blood pH 7.284L, Arterial Blood Partial Pressure CO2 35.2, Arterial Blood Partial Pressure O2 141.3H, Arterial Blood HCO3 16.3*L, Arterial Blood Oxygen Saturation 97.8, Arterial Blood Base Excess -9.5*L, Wong Test Positive Height (Feet): 5 Height (Inches): 8.00 Weight (Pounds): 120 Objective HEENT: Eyes were normal. ENT, mucous membranes were not dehydrated. NECK: Supple. There was no goiter. No mass. No lymphadenopathy. There was no JVD. No bruits. Carotid upstroke was 2+. LUNGS: Clear. Vent++/trach HEART: PMI was in the fifth left intercostal space in midclavicular line. There was normal S1 and normal S2. There was no murmur. no s3/s4 ABDOMEN: Soft and nontender without organomegaly. There were no masses palpable. Normal bowel sounds without bruits. There was no guarding. No rebound tenderness. No ascites. No hernia. No CVA tenderness. Liver span was 8 cm, mostly nontender. EXTREMITIES: No cyanosis, no clubbing, and no edema. Extremities warm. Adarsh iKm MD Dec 26, 2018 16:51
--- NOTE | 2018-12-26 17:32 | NUR ---
NURSE NOTES: Colostomy emptied. Bledsoe emptied. No acute distress. will continue to monitor.
--- NOTE | 2018-12-26 18:59 | NUR ---
HAND-OFF: Report given to Matthieu SCHILLING.
[2018-12-26] MEDS: Dyna-Hex 2% Top Sol 2oz TOPIC SCH (20:00)
--- NOTE | 2018-12-26 20:00 | NUR ---
NURSE NOTES: Report received from Kae RN. Pt alert and oriented x 2. Pt connected to cardiac rehab nurse, SR. Pt on tache portex 7 to vent AC 18, TV 500, 35% FiO2, PEEP 5. GT connected to Nepro 35 cc/hr. Pt colostomy draining liquid brown stool. Pt suprapubic catheter connected to gravity bag draining clear, yellow urine. Left femoral TLC connected to TKO. Safety measures in place with bed locked and in lowest position, side rails x3 up and bed alarm on. Will continue to monitor and continue plan of care.
--- NOTE | 2018-12-26 20:08 | Cardiology Progress Note ---
Assessment/Plan Assessment/Plan 1. Supraventricular tachycardia. recurrent 12/09 and 12/10 2. Renal insufficiency. 3. Hyponatremia. 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 6. History of bowel resection. 7. History of CVA. 8. Chronic tracheostomy. 9. Diabetes mellitus. 10 pancreatitis 11. anemai shortly after my roudn yest bp dropped lost iv access was trasferred to icu iv access initiated i ordered pressor now off pressoer awaits transfer to sdu on low dose Cardizem via gtube and dig and atenolol no furtehr svt no further svt on the present regimen heart rate stable tele looks ok hodl parameter for low bp added dig level 2 will decrease frequency more awake than yes t observe on tele Subjective ROS Limited/Unobtainable: Yes Subjective on the vent Objective Last 24 Hour Vital Signs Date Time Temp Pulse Resp B/P (MAP) Pulse Ox O2 Delivery O2 Flow Rate FiO2 12/26/18 19:00 86 23 101/64 (76) 100 12/26/18 18:00 87 23 110/65 (80) 100 12/26/18 17:00 98.2 84 23 108/64 (79) 100 12/26/18 16:52 83 25 35 12/26/18 16:00 87 12/26/18 16:00 35 12/26/18 16:00 87 26 104/62 (76) 100 12/26/18 16:00 Mechanical Ventilator 12/26/18 15:16 85 26 35 12/26/18 15:00 86 26 103/56 (72) 98 12/26/18 14:00 87 26 103/60 (74) 100 12/26/18 13:20 108/57 12/26/18 13:00 86 26 35 12/26/18 13:00 84 25 108/57 (74) 100 12/26/18 12:00 Mechanical Ventilator 12/26/18 12:00 35 12/26/18 12:00 98.0 23 98/61 (73) 100 12/26/18 12:00 86 12/26/18 11:17 81 23 35 12/26/18 11:00 82 23 105/63 (77) 100 12/26/18 10:00 81 25 103/58 (73) 100 12/26/18 09:28 82 25 35 12/26/18 09:00 80 25 108/58 (75) 100 12/26/18 08:00 35 12/26/18 08:00 97.9 78 27 106/57 (73) 100 12/26/18 08:00 Mechanical Ventilator 12/26/18 08:00 75 12/26/18 07:29 74 28 35 12/26/18 07:00 76 28 104/58 (73) 100 12/26/18 06:00 72 21 100/55 (70) 100 12/26/18 05:00 69 27 104/61 (75) 100 12/26/18 04:54 67 26 35 12/26/18 04:30 66 23 108/58 (75) 100 12/26/18 04:00 67 12/26/18 04:00 Mechanical Ventilator 12/26/18 04:00 98.3 66 24 100/64 (76) 100 12/26/18 04:00 35 12/26/18 03:30 65 23 102/62 (75) 100 12/26/18 03:05 69 24 35 12/26/18 03:00 69 19 104/36 (58) 100 12/26/18 02:30 66 24 94/58 (70) 100 12/26/18 02:00 63 21 107/63 (78) 100 12/26/18 01:00 67 19 105/62 (76) 100 12/26/18 00:55 64 22 35 12/26/18 00:30 65 25 85/51 (62) 100 12/26/18 00:00 Mechanical Ventilator 12/26/18 00:00 98.8 65 25 87/51 (63) 100 12/25/18 23:30 68 23 96/50 (65) 100 12/25/18 23:00 69 22 88/52 (64) 100 12/25/18 22:33 72 25 35 12/25/18 22:30 73 24 94/55 (68) 100 12/25/18 22:20 125/64 12/25/18 22:00 73 20 93/51 (65) 100 12/25/18 21:59 99.3 12/25/18 21:32 77 29 35 12/25/18 21:30 77 25 97/48 (64) 100 12/25/18 21:00 83 30 92/46 (61) 100 12/25/18 20:30 84 29 90/49 (63) 99 General Appearance: no apparent distress, alert, on vent, patient on isolation Neck: supple Cardiovascular: normal rate Respiratory/Chest: rhonchi - bilaterally Abdomen: normal bowel sounds, non tender, soft Extremities: no swelling Intake and Output 12/25/18 12/26/18 19:00 07:00 Intake Total 3397.5 ml 880 ml Output Total 1045 ml 555 ml Balance 2352.5 ml 325 ml Intake Free Water 360 ml 160 ml IV Total 2657.5 ml 300 ml Tube Feeding 380 ml 420 ml Output Urine Total 645 ml 555 ml Stool Total 400 ml Laboratory Tests Test 12/26/18 04:00 12/26/18 05:00 12/26/18 08:35 Urine Color Yellow Urine Appearance Slightly cloudy Urine pH 5 (4.5-8.0) Urine Specific [place] 1.020 (1.005-1.035) Urine Protein 2+ (NEGATIVE) H Urine Glucose (UA) Negative (NEGATIVE) Urine Ketones Negative (NEGATIVE) Urine Blood Negative (NEGATIVE) Urine Nitrite Negative (NEGATIVE) Urine Bilirubin Negative (NEGATIVE) Urine Urobilinogen Normal MG/DL (0.0-1.0) Urine Leukocyte Esterase 1+ (NEGATIVE) H Urine RBC 0-2 /HPF (0 - 0) H Urine WBC 2-4 /HPF (0 - 0) Urine Squamous Epithelial Cells Occasional /LPF Urine Bacteria Occasional /HPF (NONE) Urine Yeast Few /HPF (NONE) H White Blood Count 8.7 K/UL (4.8-10.8) Red Blood Count 3.52 M/UL (4.70-6.10) L Hemoglobin 10.6 G/DL (14.2-18.0) #L Hematocrit 32.4 % (42.0-52.0) #L Mean Corpuscular Volume 92 FL (80-99) Mean Corpuscular Hemoglobin 30.0 PG (27.0-31.0) Mean Corpuscular Hemoglobin Concent 32.6 G/DL (32.0-36.0) Red Cell Distribution Width 14.9 % (11.6-14.8) H Platelet Count 224 K/UL (150-450) Mean Platelet Volume 9.0 FL (6.5-10.1) Neutrophils (%) (Auto) 78.5 % (45.0-75.0) H Lymphocytes (%) (Auto) 10.8 % (20.0-45.0) L Monocytes (%) (Auto) 4.7 % (1.0-10.0) Eosinophils (%) (Auto) 5.5 % (0.0-3.0) H Basophils (%) (Auto) 0.5 % (0.0-2.0) Sodium Level 144 MMOL/L (136-145) Potassium Level 3.0 MMOL/L (3.5-5.1) L Chloride Level 111 MMOL/L (98-107) H Carbon Dioxide Level 19 MMOL/L (21-32) L Anion Gap 14 mmol/L (5-15) Blood Urea Nitrogen 43 mg/dL (7-18) H Creatinine 0.9 MG/DL (0.55-1.30) Estimat Glomerular Filtration Rate mL/min (>60) Glucose Level 230 MG/DL (74-106) H Lactic Acid Level 1.30 mmol/L (0.4-2.0) Uric Acid 7.9 MG/DL (2.6-7.2) H Calcium Level 9.8 MG/DL (8.5-10.1) Phosphorus Level 3.8 MG/DL (2.5-4.9) Magnesium Level 2.1 MG/DL (1.8-2.4) Total Bilirubin 0.3 MG/DL (0.2-1.0) Aspartate Amino Transf (AST/SGOT) 23 U/L (15-37) Alanine Aminotransferase (ALT/SGPT) 14 U/L (12-78) Alkaline Phosphatase 121 U/L (46-116) H Troponin I 0.017 ng/mL (0.000-0.056) Pro-B-Type Natriuretic Peptide 1954 pg/mL (0-125) H Total Protein 7.4 G/DL (6.4-8.2) Albumin 1.2 G/DL (3.4-5.0) L Globulin 6.2 g/dL Albumin/Globulin Ratio 0.2 (1.0-2.7) L Digoxin Level 0.9 NG/ML (0.5-2.0) Arterial Blood pH 7.284 (7.350-7.450) Arterial Blood Partial Pressure CO2 35.2 mmHg (35.0-45.0) Arterial Blood Partial Pressure O2 141.3 mmHg (75.0-100.0) H Arterial Blood HCO3 16.3 mmol/L (22.0-26.0) *L Arterial Blood Oxygen Saturation 97.8 % (95-100) Arterial Blood Base Excess -9.5 (-2-2) *L Wong Test Positive Donny Kelley MD Dec 26, 2018 20:08
--- NOTE | 2018-12-26 21:00 | NUR ---
NURSE NOTES: Glucose 255, coverage provided. Patient was suctioned, repositioned, oral care given and CHG bath provided. Patient remains stable at this point.
--- NOTE | 2018-12-26 21:30 | NUR ---
RESPIRATORY NOTE: PT. RECEIVED STABLE ON AC 18, 500, 35%, +5. ALARMS ON AND AUDIBLE. VENT CIRCUIT SECURE AND OUT OF THE WAY. RHONCHI BREATH SOUNDS FOUND IN THIS PT. NO S/S OF RESPIRATORY DISTRESS NOTED AT THIS TIME. WILL CONTINUE TO MONITOR.
--- NOTE | 2018-12-26 22:00 | NUR ---
NURSE NOTES: Suctioned patient, NAD, Vitals remains stable, Will continue to monitor.
[2018-12-27] VITALS (24 sets, daily range): BP systolic 90–117; BP diastolic 26–68
--- NOTE | 2018-12-27 | NUR ---
NURSE NOTES: Patient repositioned, suctioned and given oral care. BP has been stable, Afebrile, SR. Dr Hutchins at bedside assessing patient. No new orders at this time, Will continue to monitor.
--- NOTE | 2018-12-27 01:00 | NUR ---
NURSE NOTES: Glucose 234, coverage provided. Patient continues to remain stable.
[2018-12-27] MEDS: NovoLOG Insulin Flexpen SUBQ SCH ×6 (01:33→20:38)
--- NOTE | 2018-12-27 02:00 | NUR ---
NURSE NOTES: Pt resting comfortably. Showing no signs of distress. VSS. Will continue to monitor.
--- NOTE | 2018-12-27 04:00 | NUR ---
NURSE NOTES: Pt cleaned and repositioned. Showing no signs of distress. VSS. Will continue to monitor
--- NOTE | 2018-12-27 05:12 | NUR ---
RESPIRATORY NOTE: PT REMAINED STABLE ON CMV WITH CURRENT SETTINGS. VENT CIRCUIT SECURE AND OUT OF THE WAY. NO S/S OF RESPIRATORY DISTRESS NOTED AT THIS TIME
--- NOTE | 2018-12-27 06:00 | NUR ---
NURSE NOTES: Pt awake and alert. VSS aside from tachycardia of 105. Showing no signs of cardiac or respiratory distress. Will continue to monitor.
[2018-12-27 06:34] LABS: BASOPHILS % (AUTO) 0.7 % (0.0-2.0); EOSINOPHILS % (AUTO) 5.9 % (0.0-3.0); HEMATOCRIT 32.7 % (42.0-52.0); HEMOGLOBIN 10.7 G/DL (14.2-18.0); LYMPHOCYTES % (AUTO) 11.4 % (20.0-45.0); MEAN CORPUSCULAR VOLUME 92 FL (80-99); MONOCYTES % (AUTO) 4.4 % (1.0-10.0); NEUTROPHILS % (AUTO) 77.7 % (45.0-75.0); PLATELET COUNT 224 K/UL (150-450); RED BLOOD COUNT 3.57 M/UL (4.70-6.10); RED CELL DISTRIBUTION WIDTH 15.5 % (11.6-14.8); WHITE BLOOD COUNT 10.7 K/UL (4.8-10.8)
--- NOTE | 2018-12-27 07:05 | NUR ---
NURSE NOTES: Report given to SHAKIR Fagan. VSS. Showing no signs of distress.
[2018-12-27 07:06] LABS: ALANINE AMINOTRANSFERASE 14 U/L (12-78); ALBUMIN 1.3 G/DL (3.4-5.0); ALBUMIN/GLOBULIN RATIO 0.2 (1.0-2.7); ALKALINE PHOSPHATASE 122 U/L (46-116); ANION GAP 15 mmol/L (5-15); ASPARTATE AMINO TRANSFERASE 23 U/L (15-37); BILIRUBIN,TOTAL 0.2 MG/DL (0.2-1.0); BLOOD UREA NITROGEN 27 mg/dL (7-18); CALCIUM 9.9 MG/DL (8.5-10.1); CARBON DIOXIDE 18 MMOL/L (21-32); CHLORIDE 109 MMOL/L (98-107); CREATININE 0.7 MG/DL (0.55-1.30); PHOSPHORUS 1.8 MG/DL (2.5-4.9); POTASSIUM 3.9 MMOL/L (3.5-5.1); SODIUM 142 MMOL/L (136-145)
--- NOTE | 2018-12-27 07:06 | NUR ---
NURSE NOTES: RECEIVED PATIENT FROM Luciana ROCK RN. PATIENT IS LYING IN BED, AWAKE, NONVERBAL. TRACH TO VENT. PORTEX 7, VENT SETTINGS AC 16, VT 500, FIO2 45%, PEEP 5. NO SIGNS OF DISTRESS. GT IN PLACE, GTF RUNNING NEPRO AT 35CC/HR. COLOSTOMY NOTED. NOTED SUPRAPUBIC, CONNECTED TO BAG, PATENT AND DRAINING URINE. SKIN ALTERATION NOTED. CENTRAL LINE ON R FEMORAL TLC, DRY AND INTACT, TKO. CALL LIGHT WITHIN REACH. BED AT LOWEST POSITION. SIDE RAILS UP. WILL CONTINUE TO MONITOR.
--- NOTE | 2018-12-27 09:30 | NUR ---
NURSE NOTES: SEEN AND EXAMINED BY DR JOHNS. MADE AWARE OF ABG RESULT. ADJUSTED VENT SETTINGS. NO SIGNS OF DISTRESS. WILL CONTINUE TO MONITOR.
--- NOTE | 2018-12-27 09:32 | NUR ---
RADIOLOGY DEPT., CHEST X-RAY DONE.-P.DYE
[2018-12-27] MEDS: Heparin 5000 units/ml inj SUBQ SCH ×2 (09:44→20:39)
[2018-12-27] MEDS: metFORMIN 500mg tab GT SCH ×2 (09:47→17:45)
--- NOTE | 2018-12-27 09:58 | Pulmonolgy Critical Care Note ---
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 Assessment/Plan: hemodynamically getting better Respiratory: monitor respiratory rate, adjust FIO2, CXR Cardiac: continue pressors, continue to monitor HR/BP Renal: F/U I&O, keep IV fluid Gastrointestinal: continue feedings/current rate Endocrine: monitor blood sugar, check HgA1C Hematologic: monitor H/H Neurologic: PRN Ativan, PRN Morphine Affect: PRN ativan Prophylaxis: Protonix Notes Reviewed: 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 with: nurses, consultants, family caseworkermanager of planning - Objective Last 24 Hour Vital Signs Date Time Temp Pulse Resp B/P (MAP) Pulse Ox O2 Delivery O2 Flow Rate FiO2 12/27/18 09:28 114 27 30 12/27/18 08:00 Mechanical Ventilator 12/27/18 08:00 98.1 112 29 98/61 (73) 100 12/27/18 07:21 107 27 35 12/27/18 07:00 107 27 108/68 (81) 100 12/27/18 06:00 95 24 117/65 (82) 100 12/27/18 05:12 94 23 35 12/27/18 05:00 93 26 103/62 (76) 100 12/27/18 04:00 Mechanical Ventilator 12/27/18 04:00 93 27 98/63 (75) 100 12/27/18 04:00 92 12/27/18 04:00 35 12/27/18 03:15 95 25 35 12/27/18 03:00 93 25 107/62 (77) 100 12/27/18 02:00 93 23 106/67 (80) 100 12/27/18 01:20 93 27 35 12/27/18 01:00 91 29 99/63 (75) 100 12/27/18 00:00 Mechanical Ventilator 12/27/18 00:00 89 12/27/18 00:00 98.3 89 28 100/58 (72) 100 12/27/18 00:00 35 12/26/18 23:22 91 29 35 12/26/18 23:00 92 28 104/61 (75) 99 12/26/18 22:00 90 28 99/60 (73) 100 12/26/18 21:45 88 21 35 12/26/18 21:30 89 27 35 12/26/18 21:00 90 29 100/58 (72) 99 12/26/18 20:00 35 12/26/18 20:00 91 12/26/18 20:00 98.9 89 25 102/59 (73) 100 12/26/18 20:00 Mechanical Ventilator 12/26/18 19:00 86 23 101/64 (76) 100 12/26/18 18:00 87 23 110/65 (80) 100 12/26/18 17:00 98.2 84 23 108/64 (79) 100 12/26/18 16:52 83 25 35 12/26/18 16:00 87 12/26/18 16:00 35 12/26/18 16:00 87 26 104/62 (76) 100 12/26/18 16:00 Mechanical Ventilator 12/26/18 15:16 85 26 35 12/26/18 15:00 86 26 103/56 (72) 98 12/26/18 14:00 87 26 103/60 (74) 100 12/26/18 13:20 108/57 12/26/18 13:00 86 26 35 12/26/18 13:00 84 25 108/57 (74) 100 12/26/18 12:00 Mechanical Ventilator 12/26/18 12:00 35 12/26/18 12:00 98.0 23 98/61 (73) 100 12/26/18 12:00 86 12/26/18 11:17 81 23 35 12/26/18 11:00 82 23 105/63 (77) 100 12/26/18 10:00 81 25 103/58 (73) 100 Status: awake Condition: critical, improving HEENT: atraumatic, normocephalic Lungs: clear Heart: HR/BP stable Abdomen: soft, non-tender, feeding tube Extremities: edema Decubiti: stage Micro: Microbiology Date/Time Source Procedure Growth Status 12/26/18 04:00 Urine,Clean Catch Urine Culture - Preliminary YEAST Resulted Accucheck: 295 Critical Care - Subjective ROS Limited/Unobtainable: Yes Condition: critical EKG Rhythm: Sinus Rhythm FI02: 30 Vent Support Breath Rate: 18 Vent Support Mode: AC Vent Tidal Volume: 500 Sputum Amount: Small PEEP: 5.0 PIP: 32 Tube Feeding Amount: 35 I&O: Intake and Output 12/26/18 12/27/18 19:00 07:00 Intake Total 1020 ml 1220 ml Output Total 575 ml 840 ml Balance 445 ml 380 ml IV Total 600 ml 800 ml Tube Feeding 420 ml 420 ml Output Urine Total 400 ml 840 ml Stool Total 175 ml CXR: no change Labs: Laboratory Tests Test 12/27/18 05:30 12/27/18 09:14 White Blood Count 10.7 K/UL (4.8-10.8) Red Blood Count 3.57 M/UL (4.70-6.10) L Hemoglobin 10.7 G/DL (14.2-18.0) L Hematocrit 32.7 % (42.0-52.0) L Mean Corpuscular Volume 92 FL (80-99) Mean Corpuscular Hemoglobin 30.0 PG (27.0-31.0) Mean Corpuscular Hemoglobin Concent 32.7 G/DL (32.0-36.0) Red Cell Distribution Width 15.5 % (11.6-14.8) H Platelet Count 224 K/UL (150-450) Mean Platelet Volume 9.2 FL (6.5-10.1) Neutrophils (%) (Auto) 77.7 % (45.0-75.0) H Lymphocytes (%) (Auto) 11.4 % (20.0-45.0) L Monocytes (%) (Auto) 4.4 % (1.0-10.0) Eosinophils (%) (Auto) 5.9 % (0.0-3.0) H Basophils (%) (Auto) 0.7 % (0.0-2.0) Sodium Level 142 MMOL/L (136-145) Potassium Level 3.9 MMOL/L (3.5-5.1) Chloride Level 109 MMOL/L (98-107) H Carbon Dioxide Level 18 MMOL/L (21-32) L Anion Gap 15 mmol/L (5-15) Blood Urea Nitrogen 27 mg/dL (7-18) H Creatinine 0.7 MG/DL (0.55-1.30) Estimat Glomerular Filtration Rate mL/min (>60) Glucose Level 190 MG/DL (74-106) H Calcium Level 9.9 MG/DL (8.5-10.1) Phosphorus Level 1.8 MG/DL (2.5-4.9) L Magnesium Level 1.6 MG/DL (1.8-2.4) L Total Bilirubin 0.2 MG/DL (0.2-1.0) Aspartate Amino Transf (AST/SGOT) 23 U/L (15-37) Alanine Aminotransferase (ALT/SGPT) 14 U/L (12-78) Alkaline Phosphatase 122 U/L (46-116) H Total Protein 7.5 G/DL (6.4-8.2) Albumin 1.3 G/DL (3.4-5.0) L Globulin 6.2 g/dL Albumin/Globulin Ratio 0.2 (1.0-2.7) L Arterial Blood pH 7.316 (7.350-7.450) Arterial Blood Partial Pressure CO2 35.6 mmHg (35.0-45.0) Arterial Blood Partial Pressure O2 138.5 mmHg (75.0-100.0) H Arterial Blood HCO3 17.8 mmol/L (22.0-26.0) *L Arterial Blood Oxygen Saturation 98.5 % (95-100) Arterial Blood Base Excess -7.6 (-2-2) L Wong Test Positive Abhishek Guerra MD Dec 27, 2018 09:58
[2018-12-27] MEDS ORDERED: Potassium Phosphate 30 MM in NS 275 ML IV ONE (11:00)
[2018-12-27] MEDS ORDERED: Heparin1,000 units/500ml Premix(Conc:2 units/ml) IV PRN (11:30)
[2018-12-27] MEDS ORDERED: Lidocaine 1% Plain 30 ml INJ PRN (11:30)
--- NOTE | 2018-12-27 11:30 | NUR ---
NURSE NOTES: SEEN AND EXAMINED BY DR NULL. WILL CONTINUE TO MONITOR.
[2018-12-27] MEDS: Vasopressin 100 UNITS in NS 95 ML IV SCH (12:15)
--- NOTE | 2018-12-27 12:20 | GI Progress Note ---
Assessment/Plan Problems: (1) Colostomy care ICD Codes: Z43.3 - Encounter for attention to colostomy SNOMED: 388084367 (2) Anemia ICD Codes: D64.9 - Anemia, unspecified SNOMED: 996606377 (3) Feeding by G-tube ICD Codes: Z93.1 - Gastrostomy status SNOMED: 807780957, 099250601 (4) Abdominal wall cellulitis ICD Codes: L03.311 - Cellulitis of abdominal wall SNOMED: 15349253 (5) Acute pancreatitis ICD Codes: K85.90 - Acute pancreatitis without necrosis or infection, unspecified SNOMED: 391578720 (6) Pancreatitis ICD Codes: K85.90 - Acute pancreatitis without necrosis or infection, unspecified SNOMED: 46925431 Status: unchanged Status Narrative Discussed with Dr. Jackson. Assessment/Plan Occult blood stool positive Hepatitis panel negative Stable H&H - PRN transfusions ppi daily lopid GTFs per RD tumor markers Trend lipase, downtrending The patient was seen and examined at bedside and all new and available data was reviewed in the patients chart. I agree with the above findings, impression and plan. (Patient seen earlier today. Signature stamp does not reflect patient encounter time.). - Benjamin Jackson MD Subjective Subjective Limited Objective Last 24 Hour Vital Signs Date Time Temp Pulse Resp B/P (MAP) Pulse Ox O2 Delivery O2 Flow Rate FiO2 12/27/18 12:00 99.3 106 26 97/26 (49) 100 12/27/18 11:00 102 27 97/54 (68) 100 12/27/18 11:00 105 24 30 12/27/18 10:00 106 25 92/52 (65) 100 12/27/18 09:28 114 27 30 12/27/18 09:00 112 27 96/58 (71) 100 12/27/18 08:00 Mechanical Ventilator 12/27/18 08:00 98.1 112 29 98/61 (73) 100 12/27/18 08:00 35 12/27/18 08:00 107 12/27/18 07:21 107 27 35 12/27/18 07:00 107 27 108/68 (81) 100 12/27/18 06:00 95 24 117/65 (82) 100 12/27/18 05:12 94 23 35 12/27/18 05:00 93 26 103/62 (76) 100 12/27/18 04:00 Mechanical Ventilator 12/27/18 04:00 93 27 98/63 (75) 100 12/27/18 04:00 92 12/27/18 04:00 35 12/27/18 03:15 95 25 35 12/27/18 03:00 93 25 107/62 (77) 100 12/27/18 02:00 93 23 106/67 (80) 100 12/27/18 01:20 93 27 35 12/27/18 01:00 91 29 99/63 (75) 100 12/27/18 00:00 Mechanical Ventilator 12/27/18 00:00 89 12/27/18 00:00 98.3 89 28 100/58 (72) 100 12/27/18 00:00 35 12/26/18 23:22 91 29 35 12/26/18 23:00 92 28 104/61 (75) 99 12/26/18 22:00 90 28 99/60 (73) 100 12/26/18 21:45 88 21 35 12/26/18 21:30 89 27 35 12/26/18 21:00 90 29 100/58 (72) 99 12/26/18 20:00 35 12/26/18 20:00 91 12/26/18 20:00 98.9 89 25 102/59 (73) 100 12/26/18 20:00 Mechanical Ventilator 12/26/18 19:00 86 23 101/64 (76) 100 12/26/18 18:00 87 23 110/65 (80) 100 12/26/18 17:00 98.2 84 23 108/64 (79) 100 12/26/18 16:52 83 25 35 12/26/18 16:00 87 12/26/18 16:00 35 12/26/18 16:00 87 26 104/62 (76) 100 12/26/18 16:00 Mechanical Ventilator 12/26/18 15:16 85 26 35 12/26/18 15:00 86 26 103/56 (72) 98 12/26/18 14:00 87 26 103/60 (74) 100 12/26/18 13:20 108/57 12/26/18 13:00 86 26 35 12/26/18 13:00 84 25 108/57 (74) 100 Intake and Output 12/26/18 12/27/18 19:00 07:00 Intake Total 1020 ml 1220 ml Output Total 575 ml 840 ml Balance 445 ml 380 ml IV Total 600 ml 800 ml Tube Feeding 420 ml 420 ml Output Urine Total 400 ml 840 ml Stool Total 175 ml Laboratory Tests Test 12/27/18 05:30 12/27/18 09:14 White Blood Count 10.7 K/UL (4.8-10.8) Red Blood Count 3.57 M/UL (4.70-6.10) L Hemoglobin 10.7 G/DL (14.2-18.0) L Hematocrit 32.7 % (42.0-52.0) L Mean Corpuscular Volume 92 FL (80-99) Mean Corpuscular Hemoglobin 30.0 PG (27.0-31.0) Mean Corpuscular Hemoglobin Concent 32.7 G/DL (32.0-36.0) Red Cell Distribution Width 15.5 % (11.6-14.8) H Platelet Count 224 K/UL (150-450) Mean Platelet Volume 9.2 FL (6.5-10.1) Neutrophils (%) (Auto) 77.7 % (45.0-75.0) H Lymphocytes (%) (Auto) 11.4 % (20.0-45.0) L Monocytes (%) (Auto) 4.4 % (1.0-10.0) Eosinophils (%) (Auto) 5.9 % (0.0-3.0) H Basophils (%) (Auto) 0.7 % (0.0-2.0) Sodium Level 142 MMOL/L (136-145) Potassium Level 3.9 MMOL/L (3.5-5.1) Chloride Level 109 MMOL/L (98-107) H Carbon Dioxide Level 18 MMOL/L (21-32) L Anion Gap 15 mmol/L (5-15) Blood Urea Nitrogen 27 mg/dL (7-18) H Creatinine 0.7 MG/DL (0.55-1.30) Estimat Glomerular Filtration Rate mL/min (>60) Glucose Level 190 MG/DL (74-106) H Calcium Level 9.9 MG/DL (8.5-10.1) Phosphorus Level 1.8 MG/DL (2.5-4.9) L Magnesium Level 1.6 MG/DL (1.8-2.4) L Total Bilirubin 0.2 MG/DL (0.2-1.0) Aspartate Amino Transf (AST/SGOT) 23 U/L (15-37) Alanine Aminotransferase (ALT/SGPT) 14 U/L (12-78) Alkaline Phosphatase 122 U/L (46-116) H Total Protein 7.5 G/DL (6.4-8.2) Albumin 1.3 G/DL (3.4-5.0) L Globulin 6.2 g/dL Albumin/Globulin Ratio 0.2 (1.0-2.7) L Arterial Blood pH 7.316 (7.350-7.450) Arterial Blood Partial Pressure CO2 35.6 mmHg (35.0-45.0) Arterial Blood Partial Pressure O2 138.5 mmHg (75.0-100.0) H Arterial Blood HCO3 17.8 mmol/L (22.0-26.0) *L Arterial Blood Oxygen Saturation 98.5 % (95-100) Arterial Blood Base Excess -7.6 (-2-2) L Wong Test Positive Height (Feet): 5 Height (Inches): 8.00 Weight (Pounds): 122 General Appearance: WD/WN, no apparent distress Cardiovascular: normal rate Respiratory/Chest: normal breath sounds, no respiratory distress, other - mech vent Abdominal Exam: normal bowel sounds, non tender, soft Extremities: non-tender Cirilo Germain NP Dec 27, 2018 12:20
[2018-12-27] MEDS: Acetaminophen 650mg/20.3ml GT PRN (12:21)
--- NOTE | 2018-12-27 12:27 | Nephrology Progress Note ---
Assessment/Plan Problem List: (1) Hypercalcemia (2) ATN (acute tubular necrosis) (3) Anemia (4) Feeding by G-tube (5) Acute and chronic respiratory failure (6) UTI (urinary tract infection) (7) Hyponatremia Assessment to ICU for Hypotension doing poorly Patient have mainly Pre Renal Azotemia with possible underlying CKD- Low Na partly depletional, partly due to Hyperglycemia RESOLVED Other conditions as outlined: (1) Acute and chronic respiratory failure ([id number]) (2) Sepsis (3) Malnutrition and HypoAlbuminemia (4) UTI (urinary tract infection) (5) Anemia (6) Diabetes mellitus, type II (7) Colostomy care (8) Cerebral vascular disease (9) Decubitus ulcer of sacral region, stage 2 (10) Feeding by G-tube (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 Plan K & Phos supplement Stop Digoxin stop Atenolol Stop Cardiazem Pressors as needed Albumin bolus AREDIA 90 mg for HYPERCALCEMIA on 12/23 - Calcium level will redose Kayexelate for high K as needed On Starlix K and Phos supplement as needed Keep electrolytes in check Keep BS and BP in check per consultants Subjective ROS Limited/Unobtainable: Yes Objective Objective Last 24 Hour Vital Signs Date Time Temp Pulse Resp B/P (MAP) Pulse Ox O2 Delivery O2 Flow Rate FiO2 12/27/18 12:00 99.3 106 26 97/26 (49) 100 12/27/18 11:00 102 27 97/54 (68) 100 12/27/18 11:00 105 24 30 12/27/18 10:00 106 25 92/52 (65) 100 12/27/18 09:28 114 27 30 12/27/18 09:00 112 27 96/58 (71) 100 12/27/18 08:00 Mechanical Ventilator 12/27/18 08:00 98.1 112 29 98/61 (73) 100 12/27/18 08:00 35 12/27/18 08:00 107 12/27/18 07:21 107 27 35 12/27/18 07:00 107 27 108/68 (81) 100 12/27/18 06:00 95 24 117/65 (82) 100 12/27/18 05:12 94 23 35 12/27/18 05:00 93 26 103/62 (76) 100 12/27/18 04:00 Mechanical Ventilator 12/27/18 04:00 93 27 98/63 (75) 100 12/27/18 04:00 92 12/27/18 04:00 35 12/27/18 03:15 95 25 35 12/27/18 03:00 93 25 107/62 (77) 100 12/27/18 02:00 93 23 106/67 (80) 100 12/27/18 01:20 93 27 35 12/27/18 01:00 91 29 99/63 (75) 100 12/27/18 00:00 Mechanical Ventilator 12/27/18 00:00 89 12/27/18 00:00 98.3 89 28 100/58 (72) 100 12/27/18 00:00 35 12/26/18 23:22 91 29 35 12/26/18 23:00 92 28 104/61 (75) 99 12/26/18 22:00 90 28 99/60 (73) 100 12/26/18 21:45 88 21 35 12/26/18 21:30 89 27 35 12/26/18 21:00 90 29 100/58 (72) 99 12/26/18 20:00 35 12/26/18 20:00 91 12/26/18 20:00 98.9 89 25 102/59 (73) 100 12/26/18 20:00 Mechanical Ventilator 12/26/18 19:00 86 23 101/64 (76) 100 12/26/18 18:00 87 23 110/65 (80) 100 12/26/18 17:00 98.2 84 23 108/64 (79) 100 12/26/18 16:52 83 25 35 12/26/18 16:00 87 12/26/18 16:00 35 12/26/18 16:00 87 26 104/62 (76) 100 12/26/18 16:00 Mechanical Ventilator 12/26/18 15:16 85 26 35 12/26/18 15:00 86 26 103/56 (72) 98 12/26/18 14:00 87 26 103/60 (74) 100 12/26/18 13:20 108/57 12/26/18 13:00 86 26 35 12/26/18 13:00 84 25 108/57 (74) 100 Intake and Output 12/26/18 12/27/18 19:00 07:00 Intake Total 1020 ml 1220 ml Output Total 575 ml 840 ml Balance 445 ml 380 ml IV Total 600 ml 800 ml Tube Feeding 420 ml 420 ml Output Urine Total 400 ml 840 ml Stool Total 175 ml Laboratory Tests 12/27/18 05:30: White Blood Count 10.7, Red Blood Count 3.57L, Hemoglobin 10.7L, Hematocrit 32.7L, Mean Corpuscular Volume 92, Mean Corpuscular Hemoglobin 30.0, Mean Corpuscular Hemoglobin Concent 32.7, Red Cell Distribution Width 15.5H, Platelet Count 224, Mean Platelet Volume 9.2, Neutrophils (%) (Auto) 77.7H, Lymphocytes (%) (Auto) 11.4L, Monocytes (%) (Auto) 4.4, Eosinophils (%) (Auto) 5.9H, Basophils (%) (Auto) 0.7, Sodium Level 142, Potassium Level 3.9, Chloride Level 109H, Carbon Dioxide Level 18L, Anion Gap 15, Blood Urea Nitrogen 27H, Creatinine 0.7, Estimat Glomerular Filtration Rate , Glucose Level 190H, Calcium Level 9.9, Phosphorus Level 1.8L, Magnesium Level 1.6L, Total Bilirubin 0.2, Aspartate Amino Transf (AST/SGOT) 23, Alanine Aminotransferase (ALT/SGPT) 14, Alkaline Phosphatase 122H, Total Protein 7.5, Albumin 1.3L, Globulin 6.2, Albumin/Globulin Ratio 0.2L 12/27/18 09:14: Arterial Blood pH 7.316L, Arterial Blood Partial Pressure CO2 35.6, Arterial Blood Partial Pressure O2 138.5H, Arterial Blood HCO3 17.8*L, Arterial Blood Oxygen Saturation 98.5, Arterial Blood Base Excess -7.6L, Wong Test Positive Height (Feet): 5 Height (Inches): 8.00 Weight (Pounds): 122 EENT: other - vented Cardiovascular: tachycardia Respiratory/Chest: decreased breath sounds Abdomen: distended Objective no change Migue Moreland MD Dec 27, 2018 12:27
[2018-12-27] MEDS: DOPamine 400mg/250ml 250 ML IV SCH (13:20)
--- NOTE | 2018-12-27 13:31 | NUR ---
NURSE NOTES: TOLERATED FEEDING AND VENT SETTING. NO SIGNS OF DISTRESS. WILL CONTINUE TO MONITOR.
--- NOTE | 2018-12-27 14:24 | NUR ---
NURSE NOTES: Patient received medications as ordered. Patient is tolerating treatment well and has no signs of distress at this time. Bed at lowest position and call light within reach.
[2018-12-27] MEDS ORDERED: Pamidronate Disodium Inj 60 MG in Sodium Chloride 550 ML IVPB SCH (14:30)
--- NOTE | 2018-12-27 14:45 | NUR ---
NURSE NOTES: CALLED AND LEFT A MESSAGE TO DR NULL RE CALCIUM LEVEL AND PTH. WILL CONTINUE TO MONITOR.
--- NOTE | 2018-12-27 14:52 | Infectious Diseases Prog Note ---
Assessment/Plan Assessment/Plan Assessment: Gram positive bacteremia- PICC line infection -12/26 2d echo: no vegetations 12/23 SP -Removal of PICC line - -12/20 1/ E. fecalis (S Van, amp), 1/ MRSA. PICC line; Peripheral NTD; Bcx NTD; 12/23 NTD Septic shock , SP Severe Sepsis 2ry to GNR, sp Rx -12/24 CXR: Bilateral interstitial and airspace opacities, worse in the right upper lobe, slightly worse than prior study. -12/21 CXR: Bilateral interstitial and airspace opacities, associated bronchiectasis are again demonstrated. There is blunting of the left costophrenic sulcus again demonstrated. -12/17 CXR: No significant interval change in the diffuse patchy bilateral reticular interstitial and airspace opacities. -CXR: Probable small left pleural effusion, also evident on prior study 2017. Bilateral interstitial disease, unchanged, suspect chronic. Correlate with clinical findings -sp CX MDR PsA (S Gentamicin, AMikacin, Cefepime, Aztreonam, Tobramycin); repeats sp cx 12/20 MRSA; likely colonzier as vent settings stable GNR bacteremia, likely from UTI -CT abd/p: Findings consistent with uncomplicated nonnecrotizing acute pancreatitis. No evidence of associated peripancreatic abscess Surgical changes as described, including right lower quadrant ileostomy, subtotal colectomy with Haroldo procedure. Wall thickening of the Haroldo pouch. This could indicate inflammation. However, this is also present on both of the prior 2 exams and may be baseline for this patien. Evidence of mild anasarca, with edema of the subcutaneous fat. This is a new finding. Chronic appearing decubitus changes of the bilateral ischia. Correlate with clinical findings. Complete left lower lobe consolidation. This is similar to both of the prior CTs, andis likely a chronic finding. There is progressive chronic interstitial fibrotic change involving the right middle lobe. There is also right lower lobe granulomatous calcification, Extensive pulmonary parenchymal opacities bilaterally may reflect acute inflammation/infection, edema, progressive chronic scarring, orcombination of the above. These are considerably more extensive than on the prior study -u/a 10-15, nit neg, luek +3; ucx 50-60k Enterococcus (Vanco resist; S AMp), 40-50 K Proteus -12/07 Bcx 3/4 Proteus; 12/08 Bcx 1/4 Proteus (S Aztreonam; R Cipro, levo; I Imipenem); Acute pancreatitis -lipase ~1k Fever - recurrent- in the setting of bacteremia and pancreaitis; Leukocytosis , resolved--in the setting of bacteremia, UTI and acute pancreatitis CONS bacteremia- likely contaminant -12/12 Bcx 1/ CONS; 12/14 Bcx Neg MAULIK, improving dysphagia s/p peg COPD GBS quadriplegia chronic resp failure s/p trach HTN CVA, nonverbal anemia SNF resident Plan: -Continue Linezolid # 04/16 for E. fecalis and MRSA bacteremia in the setting of vancomycin allergy -12/22 SP Aztreonam #14 -12/21 SP INH tobramycin #7 -12/16 SP IV Daptomycin #7 -f/u Repeat cultures -Monitor CBC/CMP, temperatures -PEG/Trach care -Aspiration precautions -management of acute pancreatitis per primary team. Subjective Allergies: Coded Allergies: PENICILLINS (Unverified Allergy, Unknown, 02/26/16) POLYMYXIN B (Unverified Allergy, Unknown, 02/26/16) VANCOMYCIN (Unverified Allergy, Unknown, 02/26/16) Subjective afebrile > 48 hrs no leukocytosis repeat Bcx NTD off pressors Objective Vital Signs Last 24 Hour Vital Signs Date Time Temp Pulse Resp B/P (MAP) Pulse Ox O2 Delivery O2 Flow Rate FiO2 12/27/18 13:29 102 25 30 12/27/18 13:29 102 25 Mechanical Ventilator 15.0 30 12/27/18 13:20 106/64 12/27/18 12:15 106/64 12/27/18 12:00 99.3 106 26 106/64 (78) 100 12/27/18 12:00 Mechanical Ventilator 12/27/18 12:00 30 12/27/18 11:00 102 27 97/54 (68) 100 12/27/18 11:00 105 24 30 12/27/18 10:00 106 25 92/52 (65) 100 12/27/18 09:28 114 27 30 12/27/18 09:00 112 27 96/58 (71) 100 12/27/18 08:00 Mechanical Ventilator 12/27/18 08:00 98.1 112 29 98/61 (73) 100 12/27/18 08:00 35 12/27/18 08:00 107 12/27/18 07:21 107 27 35 12/27/18 07:00 107 27 108/68 (81) 100 12/27/18 06:00 95 24 117/65 (82) 100 12/27/18 05:12 94 23 35 12/27/18 05:00 93 26 103/62 (76) 100 12/27/18 04:00 Mechanical Ventilator 12/27/18 04:00 93 27 98/63 (75) 100 12/27/18 04:00 92 12/27/18 04:00 35 12/27/18 03:15 95 25 35 12/27/18 03:00 93 25 107/62 (77) 100 12/27/18 02:00 93 23 106/67 (80) 100 12/27/18 01:20 93 27 35 12/27/18 01:00 91 29 99/63 (75) 100 12/27/18 00:00 Mechanical Ventilator 12/27/18 00:00 89 12/27/18 00:00 98.3 89 28 100/58 (72) 100 12/27/18 00:00 35 12/26/18 23:22 91 29 35 12/26/18 23:00 92 28 104/61 (75) 99 12/26/18 22:00 90 28 99/60 (73) 100 12/26/18 21:45 88 21 35 12/26/18 21:30 89 27 35 12/26/18 21:00 90 29 100/58 (72) 99 12/26/18 20:00 35 12/26/18 20:00 91 12/26/18 20:00 98.9 89 25 102/59 (73) 100 12/26/18 20:00 Mechanical Ventilator 12/26/18 19:00 86 23 101/64 (76) 100 12/26/18 18:00 87 23 110/65 (80) 100 12/26/18 17:00 98.2 84 23 108/64 (79) 100 12/26/18 16:52 83 25 35 12/26/18 16:00 87 12/26/18 16:00 35 12/26/18 16:00 87 26 104/62 (76) 100 12/26/18 16:00 Mechanical Ventilator 12/26/18 15:16 85 26 35 12/26/18 15:00 86 26 103/56 (72) 98 Height (Feet): 5 Height (Inches): 8.00 Weight (Pounds): 122 Objective HEENT: Eyes were normal. ENT, mucous membranes were not dehydrated. NECK: Supple. There was no goiter. No mass. No lymphadenopathy. There was no JVD. No bruits. Carotid upstroke was 2+. LUNGS: Clear. HEART: PMI was in the fifth left intercostal space in midclavicular line. There was normal S1 and normal S2. There was no murmur. No arrhythmia. No S3. No S4. No pericardial rub. ABDOMEN: Soft and nontender without organomegaly. There were no masses palpable. Normal bowel sounds without bruits. There was no guarding. No rebound tenderness. No ascites. No hernia. No CVA tenderness. EXTREMITIES: No cyanosis, no clubbing, and no edema. Extremities were warm. Microbiology Date/Time Source Procedure Growth Status 12/26/18 04:00 Urine,Clean Catch Urine Culture - Preliminary YEAST Resulted Laboratory Tests Test 12/27/18 05:30 12/27/18 09:14 White Blood Count 10.7 K/UL (4.8-10.8) Red Blood Count 3.57 M/UL (4.70-6.10) L Hemoglobin 10.7 G/DL (14.2-18.0) L Hematocrit 32.7 % (42.0-52.0) L Mean Corpuscular Volume 92 FL (80-99) Mean Corpuscular Hemoglobin 30.0 PG (27.0-31.0) Mean Corpuscular Hemoglobin Concent 32.7 G/DL (32.0-36.0) Red Cell Distribution Width 15.5 % (11.6-14.8) H Platelet Count 224 K/UL (150-450) Mean Platelet Volume 9.2 FL (6.5-10.1) Neutrophils (%) (Auto) 77.7 % (45.0-75.0) H Lymphocytes (%) (Auto) 11.4 % (20.0-45.0) L Monocytes (%) (Auto) 4.4 % (1.0-10.0) Eosinophils (%) (Auto) 5.9 % (0.0-3.0) H Basophils (%) (Auto) 0.7 % (0.0-2.0) Sodium Level 142 MMOL/L (136-145) Potassium Level 3.9 MMOL/L (3.5-5.1) Chloride Level 109 MMOL/L (98-107) H Carbon Dioxide Level 18 MMOL/L (21-32) L Anion Gap 15 mmol/L (5-15) Blood Urea Nitrogen 27 mg/dL (7-18) H Creatinine 0.7 MG/DL (0.55-1.30) Estimat Glomerular Filtration Rate mL/min (>60) Glucose Level 190 MG/DL (74-106) H Calcium Level 9.9 MG/DL (8.5-10.1) Phosphorus Level 1.8 MG/DL (2.5-4.9) L Magnesium Level 1.6 MG/DL (1.8-2.4) L Total Bilirubin 0.2 MG/DL (0.2-1.0) Aspartate Amino Transf (AST/SGOT) 23 U/L (15-37) Alanine Aminotransferase (ALT/SGPT) 14 U/L (12-78) Alkaline Phosphatase 122 U/L (46-116) H C-Reactive Protein, Quantitative 14.0 mg/dL (0.00-0.90) H Total Protein 7.5 G/DL (6.4-8.2) Albumin 1.3 G/DL (3.4-5.0) L Globulin 6.2 g/dL Albumin/Globulin Ratio 0.2 (1.0-2.7) L Arterial Blood pH 7.316 (7.350-7.450) Arterial Blood Partial Pressure CO2 35.6 mmHg (35.0-45.0) Arterial Blood Partial Pressure O2 138.5 mmHg (75.0-100.0) H Arterial Blood HCO3 17.8 mmol/L (22.0-26.0) *L Arterial Blood Oxygen Saturation 98.5 % (95-100) Arterial Blood Base Excess -7.6 (-2-2) L Wong Test Positive Current Medications Medications (Trade) Dose Ordered Sig/[place] Route PRN Reason Start Time Stop Time Status Last Admin Dose Admin Acetaminophen (Tylenol) 650 mg Q4H PRN GT For Pain 12/25/18 13:00 4/5/19 16:59 Acetaminophen (Tylenol) 650 mg Q4H PRN GT fever 12/25/18 13:45 01/06/19 16:59 12/27/18 12:21 Calcitonin [place] (Miacalcin) 1 sprays DAILY NASAL 12/26/18 09:00 01/24/19 10:59 12/27/18 14:18 Chlorhexidine Gluconate (Sandra-Hex 2%) 1 applic DAILY@2000 TOPIC 12/25/18 20:00 01/09/19 19:59 12/26/18 20:00 Dextrose (Dextrose 50%) 25 ml Q30M PRN IV Hypoglycemia 12/25/18 12:00 01/09/19 13:59 Dextrose (Dextrose 50%) 50 ml Q30M PRN IV Hypoglycemia 12/25/18 12:00 01/09/19 13:59 Diltiazem HCl (Cardizem) 10 mg BIDPRN PRN IVP FOR HR >140 12/26/18 08:45 01/11/19 08:44 Dopamine HCl/ Dextrose 250 ml @ 0 mls/hr Q24H IV 12/25/18 13:20 01/24/19 13:19 Gemfibrozil (Lopid) 600 mg TWICE A DAY GT 12/25/18 18:00 01/14/19 10:14 12/27/18 09:47 Heparin Sodium (Porcine) (Heparin 5000 units/ml) 5,000 units EVERY 12 HOURS SUBQ 12/25/18 21:00 01/06/19 20:59 12/27/18 09:44 Heparin Sodium/ Sodium Chloride (Heparin 1000 units/500ml Premix) 1,000 unit ONCE PRN IV picc line placement 12/27/18 11:30 12/29/18 11:29 Insulin Aspart (NovoLOG) EVERY 4 HOURS SUBQ 12/25/18 13:00 01/09/19 04:59 12/27/18 09:41 Lansoprazole (Prevacid) 30 mg BID GT 12/27/18 18:00 01/16/19 08:59 Lidocaine HCl (Xylocaine 1% 30ml) 30 ml ONCE PRN INJ picc line placement 12/27/18 11:30 12/29/18 11:29 Linezolid 300 ml @ 300 mls/hr Q12HR IVPB 12/25/18 21:00 01/01/19 08:59 12/27/18 09:56 Metformin HCl (Glucophage) 500 mg BID GT 12/25/18 18:00 01/22/19 17:59 12/27/18 09:47 Nateglinide (Starlix) 120 mg Q8HR ORAL 12/25/18 14:00 01/17/19 21:59 12/27/18 05:08 Nitroglycerin (Ntg) 0.4 mg Q5M PRN SL Prn Chest Pain 12/25/18 11:45 01/06/19 16:59 Norepinephrine Bitartrate 4 mg/ Dextrose 250 ml @ 0 mls/hr Q24H IV 12/25/18 12:15 01/24/19 12:14 12/25/18 22:20 Ondansetron HCl (Zofran) 4 mg Q6H PRN IVP Nausea & Vomiting 12/25/18 17:00 01/06/19 16:59 Pamidronate Disodium 60 mg/ Sodium Chloride 550 ml @ 137.5 mls/ hr ONCE IVPB 12/27/18 14:30 12/27/18 20:00 12/27/18 14:18 Polyethylene Glycol (Miralax) 17 gm DAILYPRN PRN GT Constipation 12/26/18 09:45 01/06/19 16:59 Potassium Phosphate 30 mm/ Sodium Chloride 285 ml @ 47.5 mls/hr ONCE ONCE IV 12/27/18 11:00 12/27/18 16:59 12/27/18 11:53 Vasopressin 100 units/Sodium Chloride 100 ml @ 0 mls/hr Q24H IV 12/25/18 12:15 01/24/19 12:14 12/25/18 13:15 Aminah Champagne M.D. Dec 27, 2018 14:52
--- NOTE | 2018-12-27 15:13 | General Progress Note ---
Assessment/Plan Assessment/Plan Assessment/Recs: # Leukocytosis/Elevated white blood cell count,potentially due to infection with gram negative bacteremia, with uti and on abx --> have reviewed peripheral smear and bandemia/neutrophilia noted on initial smear --> continue antibiotics if they have been started by ID team, titrate as needed --> monitor for resolution ---> WBC trend: 11-->16-->15-->14-->11-->12-->10.8-->11-->12 # Anemia of chronic disease due to underlying chronic medical issues, multifactorial --> Anemia workup has been reviewed, Ferritin [id number] --> No evidence of hemolysis is noted, peripheral smear has been reviewed. --> Hgb goal >7. Transfuse prn. --> Epogen or iron at this time is not particularly indicated --> Medications have been reviewed --> HGB trend: 7.8-->7.6-->6.2-->6.4->7.1-->8.7-->9.1-->8.4-->7.8-->9.4-->7.3--> 10.6 --> received prbc 12/25 # Thrombocytopenia - potential causes multifactorial, evaluate liver and viral etiologies to begin, also could be related to underlying medications --> Hep panel and HIV negative --> US abd to evaluate for cirrhosis and hsm reviewed --> Peripheral smear ordered to evaluate for blasts/schistocytes does not reveal any --> abx and other meds have been reviewed --> ok for ppx if plt >50k w/ either heparin or lovenox --> Transfuse if Plt < 20k and fever, or if Plt < 10k without fever # Hypercalcemia potentailly related to dehydration --> s/p aredia as per renal --> pth reviewed # Severe prerenal azotemia, on ivf --> improve po oral intake and consider appetite stimulant # Severe Sepsis, CXR: Probable small left pleural effusion, also evident on prior study 11/22/2017 --> appreciate ID recs # Bacteremia, likely from UTI, PNA --> tolerating abx well --> as per pulm The timing of this note does not necessarily reflect the time of the patient was seen. Greatly appreciate consultation! Subjective HEENT: Denies: no symptoms, eye pain, blurred vision, tearing, double vision, ear pain, ear discharge, nose pain, nose congestion, throat pain, throat swelling, mouth pain, mouth swelling, other Cardiovascular: Denies: no symptoms, chest pain, edema, irregular heart rate, lightheadedness, palpitations, syncope, other Gastrointestinal/Abdominal: Denies: no symptoms, abdomen distended, abdominal pain, black stools, tarry stools, blood in stool, constipated, diarrhea, difficulty swallowing, nausea, poor appetite, poor fluid intake, rectal bleeding , vomiting, other Genitourinary: Denies: no symptoms, burning, discharge, frequency, flank pain, hematuria, incontinence, pain, urgency, other Neurologic/Psychiatric: Reports: no symptoms, anxiety, depressed, emotional problems, headache, numbness, paresthesia, pre-existing deficit, seizure, tingling, tremors, weakness, other Allergies: Coded Allergies: PENICILLINS (Unverified Allergy, Unknown, 02/26/16) POLYMYXIN B (Unverified Allergy, Unknown, 02/26/16) VANCOMYCIN (Unverified Allergy, Unknown, 02/26/16) Subjective 12/11: seen by bedside, vent dependent, leukocytosis, 11, hgb 7, will transfuse, no events 12/12: awake, comfortable wbc trending up at 16, no events 12/13: hgb 6.4, receiving transfusion, , wbc remains elevated. no acute events 12/14: seen by bedside, awake, comfortable low grade fever, wbc remains elevated at 15, bacteremia on IV Abx, hgb 7.1, will transfuse as needed 12/15: Wbc remains elevated, no events reported, hgb trending up 12/16: seen by bedside, awake, comfortable, no events 12/18: seen in the room, on vent and trach, no events 12/19: reviewed cbc and appears relatively stable, on starlix, remains in sdu 12/20: seen by bedside, on vent, mild leukocytosis 12/21: Pt is resting , on vent, wbc trending up , no events 12/22: exam is essentially unchanged, on abx, have discussed with pcp, rn, wbc better 12/23: transfuse wbc 11, on abx 12/24: no events to report, on vent/trach care, without issue 12/26: in icu, resting comfortanly, off pressors 12/27: tolerating feeding and vent well, no issues, ca reviewed Objective Last 24 Hour Vital Signs Date Time Temp Pulse Resp B/P (MAP) Pulse Ox O2 Delivery O2 Flow Rate FiO2 12/27/18 13:29 102 25 30 12/27/18 13:29 102 25 Mechanical Ventilator 15.0 30 12/27/18 13:20 106/64 12/27/18 12:15 106/64 12/27/18 12:00 99.3 106 26 106/64 (78) 100 12/27/18 12:00 Mechanical Ventilator 12/27/18 12:00 30 12/27/18 11:00 102 27 97/54 (68) 100 12/27/18 11:00 105 24 30 12/27/18 10:00 106 25 92/52 (65) 100 12/27/18 09:28 114 27 30 12/27/18 09:00 112 27 96/58 (71) 100 12/27/18 08:00 Mechanical Ventilator 12/27/18 08:00 98.1 112 29 98/61 (73) 100 12/27/18 08:00 35 12/27/18 08:00 107 12/27/18 07:21 107 27 35 12/27/18 07:00 107 27 108/68 (81) 100 12/27/18 06:00 95 24 117/65 (82) 100 12/27/18 05:12 94 23 35 12/27/18 05:00 93 26 103/62 (76) 100 12/27/18 04:00 Mechanical Ventilator 12/27/18 04:00 93 27 98/63 (75) 100 12/27/18 04:00 92 12/27/18 04:00 35 12/27/18 03:15 95 25 35 12/27/18 03:00 93 25 107/62 (77) 100 12/27/18 02:00 93 23 106/67 (80) 100 12/27/18 01:20 93 27 35 12/27/18 01:00 91 29 99/63 (75) 100 12/27/18 00:00 Mechanical Ventilator 12/27/18 00:00 89 12/27/18 00:00 98.3 89 28 100/58 (72) 100 12/27/18 00:00 35 12/26/18 23:22 91 29 35 12/26/18 23:00 92 28 104/61 (75) 99 12/26/18 22:00 90 28 99/60 (73) 100 12/26/18 21:45 88 21 35 12/26/18 21:30 89 27 35 12/26/18 21:00 90 29 100/58 (72) 99 12/26/18 20:00 35 12/26/18 20:00 91 12/26/18 20:00 98.9 89 25 102/59 (73) 100 12/26/18 20:00 Mechanical Ventilator 12/26/18 19:00 86 23 101/64 (76) 100 12/26/18 18:00 87 23 110/65 (80) 100 12/26/18 17:00 98.2 84 23 108/64 (79) 100 12/26/18 16:52 83 25 35 12/26/18 16:00 87 12/26/18 16:00 35 12/26/18 16:00 87 26 104/62 (76) 100 12/26/18 16:00 Mechanical Ventilator 12/26/18 15:16 85 26 35 Intake and Output 12/26/18 12/27/18 19:00 07:00 Intake Total 1020 ml 1220 ml Output Total 575 ml 840 ml Balance 445 ml 380 ml IV Total 600 ml 800 ml Tube Feeding 420 ml 420 ml Output Urine Total 400 ml 840 ml Stool Total 175 ml Laboratory Tests 12/27/18 05:30: White Blood Count 10.7, Red Blood Count 3.57L, Hemoglobin 10.7L, Hematocrit 32.7L, Mean Corpuscular Volume 92, Mean Corpuscular Hemoglobin 30.0, Mean Corpuscular Hemoglobin Concent 32.7, Red Cell Distribution Width 15.5H, Platelet Count 224, Mean Platelet Volume 9.2, Neutrophils (%) (Auto) 77.7H, Lymphocytes (%) (Auto) 11.4L, Monocytes (%) (Auto) 4.4, Eosinophils (%) (Auto) 5.9H, Basophils (%) (Auto) 0.7, Sodium Level 142, Potassium Level 3.9, Chloride Level 109H, Carbon Dioxide Level 18L, Anion Gap 15, Blood Urea Nitrogen 27H, Creatinine 0.7, Estimat Glomerular Filtration Rate , Glucose Level 190H, Calcium Level 9.9, Phosphorus Level 1.8L, Magnesium Level 1.6L, Total Bilirubin 0.2, Aspartate Amino Transf (AST/SGOT) 23, Alanine Aminotransferase (ALT/SGPT) 14, Alkaline Phosphatase 122H, C-Reactive Protein, Quantitative 14.0H, Total Protein 7.5, Albumin 1.3L, Globulin 6.2, Albumin/Globulin Ratio 0.2L 12/27/18 09:14: Arterial Blood pH 7.316L, Arterial Blood Partial Pressure CO2 35.6, Arterial Blood Partial Pressure O2 138.5H, Arterial Blood HCO3 17.8*L, Arterial Blood Oxygen Saturation 98.5, Arterial Blood Base Excess -7.6L, Wong Test Positive Height (Feet): 5 Height (Inches): 8.00 Weight (Pounds): 122 Objective HEENT: Eyes were normal. ENT, mucous membranes were not dehydrated. NECK: Supple. There was no goiter. No mass. No lymphadenopathy. There was no JVD. No bruits. Carotid upstroke was 2+. LUNGS: Clear. Vent++/trach HEART: PMI was in the fifth left intercostal space in midclavicular line. There was normal S1 and normal S2. There was no murmur. no s3/s4 ABDOMEN: Soft and nontender without organomegaly. There were no masses palpable. Normal bowel sounds without bruits. There was no guarding. No rebound tenderness. No ascites. No hernia. No CVA tenderness. Liver span was 8 cm, mostly nontender. EXTREMITIES: No cyanosis, no clubbing, and no edema. Extremities warm. Adarsh Kim MD Dec 27, 2018 15:13
--- NOTE | 2018-12-27 15:27 | Cardiology Progress Note ---
Assessment/Plan Assessment/Plan 1. Supraventricular tachycardia. recurrent 12/09 and 12/10 2. Renal insufficiency. 3. Hyponatremia. 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 6. History of bowel resection. 7. History of CVA. 8. Chronic tracheostomy. 9. Diabetes mellitus. 10 pancreatitis 11. anemai off Cardizem via gtube and dig and atenolol no furtehr svt heart rate stable tele looks ok more awake than yes t observe on tele Subjective ROS Limited/Unobtainable: Yes Subjective on the vent Objective Last 24 Hour Vital Signs Date Time Temp Pulse Resp B/P (MAP) Pulse Ox O2 Delivery O2 Flow Rate FiO2 12/27/18 13:29 102 25 30 12/27/18 13:29 102 25 Mechanical Ventilator 15.0 30 12/27/18 13:20 106/64 12/27/18 12:51 97.6 12/27/18 12:15 106/64 12/27/18 12:00 99.3 106 26 106/64 (78) 100 12/27/18 12:00 Mechanical Ventilator 12/27/18 12:00 30 12/27/18 11:00 102 27 97/54 (68) 100 12/27/18 11:00 105 24 30 12/27/18 10:00 106 25 92/52 (65) 100 12/27/18 09:28 114 27 30 12/27/18 09:00 112 27 96/58 (71) 100 12/27/18 08:00 Mechanical Ventilator 12/27/18 08:00 98.1 112 29 98/61 (73) 100 12/27/18 08:00 35 12/27/18 08:00 107 12/27/18 07:21 107 27 35 12/27/18 07:00 107 27 108/68 (81) 100 12/27/18 06:00 95 24 117/65 (82) 100 12/27/18 05:12 94 23 35 12/27/18 05:00 93 26 103/62 (76) 100 12/27/18 04:00 Mechanical Ventilator 12/27/18 04:00 93 27 98/63 (75) 100 12/27/18 04:00 92 12/27/18 04:00 35 12/27/18 03:15 95 25 35 12/27/18 03:00 93 25 107/62 (77) 100 12/27/18 02:00 93 23 106/67 (80) 100 12/27/18 01:20 93 27 35 12/27/18 01:00 91 29 99/63 (75) 100 12/27/18 00:00 Mechanical Ventilator 12/27/18 00:00 89 12/27/18 00:00 98.3 89 28 100/58 (72) 100 12/27/18 00:00 35 12/26/18 23:22 91 29 35 12/26/18 23:00 92 28 104/61 (75) 99 12/26/18 22:00 90 28 99/60 (73) 100 12/26/18 21:45 88 21 35 12/26/18 21:30 89 27 35 12/26/18 21:00 90 29 100/58 (72) 99 12/26/18 20:00 35 12/26/18 20:00 91 12/26/18 20:00 98.9 89 25 102/59 (73) 100 12/26/18 20:00 Mechanical Ventilator 12/26/18 19:00 86 23 101/64 (76) 100 12/26/18 18:00 87 23 110/65 (80) 100 12/26/18 17:00 98.2 84 23 108/64 (79) 100 12/26/18 16:52 83 25 35 12/26/18 16:00 87 12/26/18 16:00 35 12/26/18 16:00 87 26 104/62 (76) 100 12/26/18 16:00 Mechanical Ventilator General Appearance: no apparent distress, alert, on vent, patient on isolation Neck: supple Cardiovascular: normal rate Respiratory/Chest: rhonchi - bilaterally Abdomen: normal bowel sounds, non tender, soft Extremities: no swelling Intake and Output 12/26/18 12/27/18 19:00 07:00 Intake Total 1020 ml 1220 ml Output Total 575 ml 840 ml Balance 445 ml 380 ml IV Total 600 ml 800 ml Tube Feeding 420 ml 420 ml Output Urine Total 400 ml 840 ml Stool Total 175 ml Laboratory Tests Test 12/27/18 05:30 12/27/18 09:14 White Blood Count 10.7 K/UL (4.8-10.8) Red Blood Count 3.57 M/UL (4.70-6.10) L Hemoglobin 10.7 G/DL (14.2-18.0) L Hematocrit 32.7 % (42.0-52.0) L Mean Corpuscular Volume 92 FL (80-99) Mean Corpuscular Hemoglobin 30.0 PG (27.0-31.0) Mean Corpuscular Hemoglobin Concent 32.7 G/DL (32.0-36.0) Red Cell Distribution Width 15.5 % (11.6-14.8) H Platelet Count 224 K/UL (150-450) Mean Platelet Volume 9.2 FL (6.5-10.1) Neutrophils (%) (Auto) 77.7 % (45.0-75.0) H Lymphocytes (%) (Auto) 11.4 % (20.0-45.0) L Monocytes (%) (Auto) 4.4 % (1.0-10.0) Eosinophils (%) (Auto) 5.9 % (0.0-3.0) H Basophils (%) (Auto) 0.7 % (0.0-2.0) Sodium Level 142 MMOL/L (136-145) Potassium Level 3.9 MMOL/L (3.5-5.1) Chloride Level 109 MMOL/L (98-107) H Carbon Dioxide Level 18 MMOL/L (21-32) L Anion Gap 15 mmol/L (5-15) Blood Urea Nitrogen 27 mg/dL (7-18) H Creatinine 0.7 MG/DL (0.55-1.30) Estimat Glomerular Filtration Rate mL/min (>60) Glucose Level 190 MG/DL (74-106) H Calcium Level 9.9 MG/DL (8.5-10.1) Phosphorus Level 1.8 MG/DL (2.5-4.9) L Magnesium Level 1.6 MG/DL (1.8-2.4) L Total Bilirubin 0.2 MG/DL (0.2-1.0) Aspartate Amino Transf (AST/SGOT) 23 U/L (15-37) Alanine Aminotransferase (ALT/SGPT) 14 U/L (12-78) Alkaline Phosphatase 122 U/L (46-116) H C-Reactive Protein, Quantitative 14.0 mg/dL (0.00-0.90) H Total Protein 7.5 G/DL (6.4-8.2) Albumin 1.3 G/DL (3.4-5.0) L Globulin 6.2 g/dL Albumin/Globulin Ratio 0.2 (1.0-2.7) L Arterial Blood pH 7.316 (7.350-7.450) Arterial Blood Partial Pressure CO2 35.6 mmHg (35.0-45.0) Arterial Blood Partial Pressure O2 138.5 mmHg (75.0-100.0) H Arterial Blood HCO3 17.8 mmol/L (22.0-26.0) *L Arterial Blood Oxygen Saturation 98.5 % (95-100) Arterial Blood Base Excess -7.6 (-2-2) L Wong Test Positive Microbiology Date/Time Source Procedure Growth Status 12/26/18 04:00 Urine,Clean Catch Urine Culture - Preliminary YEAST Resulted Donny Kelley MD Dec 27, 2018 15:27
--- NOTE | 2018-12-27 15:57 | NUR ---
NURSE NOTES: Patient is awake and tolerating treatment as well as his feeding at this time. Bed at its lowest position and call light in reach. Will continue to monitor.
--- NOTE | 2018-12-27 15:58 | Surgery Progress Note ---
Surgery Progress Note Subjective Symptoms: improved Additional Comments looks better today. picc line out. on abx. new picc line today. Objective Last 24 Hour Vital Signs Date Time Temp Pulse Resp B/P (MAP) Pulse Ox O2 Delivery O2 Flow Rate FiO2 12/27/18 13:29 102 25 30 12/27/18 13:29 102 25 Mechanical Ventilator 15.0 30 12/27/18 13:20 106/64 12/27/18 12:51 97.6 12/27/18 12:15 106/64 12/27/18 12:00 99.3 106 26 106/64 (78) 100 12/27/18 12:00 Mechanical Ventilator 12/27/18 12:00 30 12/27/18 11:00 102 27 97/54 (68) 100 12/27/18 11:00 105 24 30 12/27/18 10:00 106 25 92/52 (65) 100 12/27/18 09:28 114 27 30 12/27/18 09:00 112 27 96/58 (71) 100 12/27/18 08:00 Mechanical Ventilator 12/27/18 08:00 98.1 112 29 98/61 (73) 100 12/27/18 08:00 35 12/27/18 08:00 107 12/27/18 07:21 107 27 35 12/27/18 07:00 107 27 108/68 (81) 100 12/27/18 06:00 95 24 117/65 (82) 100 12/27/18 05:12 94 23 35 12/27/18 05:00 93 26 103/62 (76) 100 12/27/18 04:00 Mechanical Ventilator 12/27/18 04:00 93 27 98/63 (75) 100 12/27/18 04:00 92 12/27/18 04:00 35 12/27/18 03:15 95 25 35 12/27/18 03:00 93 25 107/62 (77) 100 12/27/18 02:00 93 23 106/67 (80) 100 12/27/18 01:20 93 27 35 12/27/18 01:00 91 29 99/63 (75) 100 12/27/18 00:00 Mechanical Ventilator 12/27/18 00:00 89 12/27/18 00:00 98.3 89 28 100/58 (72) 100 12/27/18 00:00 35 12/26/18 23:22 91 29 35 12/26/18 23:00 92 28 104/61 (75) 99 12/26/18 22:00 90 28 99/60 (73) 100 12/26/18 21:45 88 21 35 12/26/18 21:30 89 27 35 12/26/18 21:00 90 29 100/58 (72) 99 12/26/18 20:00 35 12/26/18 20:00 91 12/26/18 20:00 98.9 89 25 102/59 (73) 100 12/26/18 20:00 Mechanical Ventilator 12/26/18 19:00 86 23 101/64 (76) 100 12/26/18 18:00 87 23 110/65 (80) 100 12/26/18 17:00 98.2 84 23 108/64 (79) 100 12/26/18 16:52 83 25 35 12/26/18 16:00 87 12/26/18 16:00 35 12/26/18 16:00 87 26 104/62 (76) 100 12/26/18 16:00 Mechanical Ventilator I&O Intake and Output 12/26/18 12/27/18 19:00 07:00 Intake Total 1020 ml 1220 ml Output Total 575 ml 840 ml Balance 445 ml 380 ml IV Total 600 ml 800 ml Tube Feeding 420 ml 420 ml Output Urine Total 400 ml 840 ml Stool Total 175 ml Dressing: saturated Wound: other Drains: other Cardiovascular: RSR Respiratory: decreased breath sounds Abdomen: soft, present bowel sounds, non-distended Extremities: no cyanosis Laboratory Tests Test 12/27/18 05:30 12/27/18 09:14 White Blood Count 10.7 K/UL (4.8-10.8) Red Blood Count 3.57 M/UL (4.70-6.10) L Hemoglobin 10.7 G/DL (14.2-18.0) L Hematocrit 32.7 % (42.0-52.0) L Mean Corpuscular Volume 92 FL (80-99) Mean Corpuscular Hemoglobin 30.0 PG (27.0-31.0) Mean Corpuscular Hemoglobin Concent 32.7 G/DL (32.0-36.0) Red Cell Distribution Width 15.5 % (11.6-14.8) H Platelet Count 224 K/UL (150-450) Mean Platelet Volume 9.2 FL (6.5-10.1) Neutrophils (%) (Auto) 77.7 % (45.0-75.0) H Lymphocytes (%) (Auto) 11.4 % (20.0-45.0) L Monocytes (%) (Auto) 4.4 % (1.0-10.0) Eosinophils (%) (Auto) 5.9 % (0.0-3.0) H Basophils (%) (Auto) 0.7 % (0.0-2.0) Sodium Level 142 MMOL/L (136-145) Potassium Level 3.9 MMOL/L (3.5-5.1) Chloride Level 109 MMOL/L (98-107) H Carbon Dioxide Level 18 MMOL/L (21-32) L Anion Gap 15 mmol/L (5-15) Blood Urea Nitrogen 27 mg/dL (7-18) H Creatinine 0.7 MG/DL (0.55-1.30) Estimat Glomerular Filtration Rate mL/min (>60) Glucose Level 190 MG/DL (74-106) H Calcium Level 9.9 MG/DL (8.5-10.1) Phosphorus Level 1.8 MG/DL (2.5-4.9) L Magnesium Level 1.6 MG/DL (1.8-2.4) L Total Bilirubin 0.2 MG/DL (0.2-1.0) Aspartate Amino Transf (AST/SGOT) 23 U/L (15-37) Alanine Aminotransferase (ALT/SGPT) 14 U/L (12-78) Alkaline Phosphatase 122 U/L (46-116) H C-Reactive Protein, Quantitative 14.0 mg/dL (0.00-0.90) H Total Protein 7.5 G/DL (6.4-8.2) Albumin 1.3 G/DL (3.4-5.0) L Globulin 6.2 g/dL Albumin/Globulin Ratio 0.2 (1.0-2.7) L Arterial Blood pH 7.316 (7.350-7.450) Arterial Blood Partial Pressure CO2 35.6 mmHg (35.0-45.0) Arterial Blood Partial Pressure O2 138.5 mmHg (75.0-100.0) H Arterial Blood HCO3 17.8 mmol/L (22.0-26.0) *L Arterial Blood Oxygen Saturation 98.5 % (95-100) Arterial Blood Base Excess -7.6 (-2-2) L Wong Test Positive Plan Problems: (1) Decubitus skin ulcer Assessment & Plan: Pt presented on admission with multiple pressure injuries and Skin erosion. Pt has trach and no evidence of skin breakdown noted under trach collar. Unstageable pressure injury noted to L earlobe. Stable dry brown eschar noted(L) 0.7cm x (W)0.5cm. Gross erythema with denudement and multiple scattered partial thickness wounds noted to buttocks and base of scrotum extending into both posterior upper thighs.Moderate amt sanguineous exudate noted upon removal of drsgs. 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 Moderate amt sanguineous exudate noted (L)3cm x (W)1cm x (D)7.4cm.Erythema periwound secondary to skin erosions. Partially opened DTPI L ischium .Base of wound purple,fluctuant with red borders.Open areas at base of this wound are beefy red in colour.Moderate amt sanguineous exudate noted.(L)7cm x (W)6.8cm. DTPI R ischium.Wound is fluctuant-purple in center with surrounding Maroon colour, and is partially opened with a small area of 5% that is necrotic.(L) 6.5cm x (W)5.5cm. Red skin erosion periwound. Partial thickness pressure injury L hip. Base of wound is moist -viable. Edges adherent and dry. Periwound without erythema or induration(L)1.2cm x (W)0.5cm. Elongate partial thickness wound posterior upper L thigh .Base of wound is moist -viable .Small amt sanguineous exudate noted. (+) maceration along borders. Erythema without induration or elevation in skin temp noted.(L)2cm x (W )9.4cm. DTPI noted to R heel .Base of injury is indurated and maroon in colour. Periwound is firm without erythema. (L)1.5cm x (W)1cm.R heel without evidence of skin breakdown. Tx.Plan: Cleanse Sacrum with Saline. Loosely pack with Hydrogel impregnated Kerlix. Apply Triad Paste periwound. Cover with ABD pad. Daily and prn. Cleanse R and L ischial wounds with Saline. Apply Moisture Barrier Paste.Cover with abd pads Daily and prn. Apply Moisture Barrier to skin erosions on buttocks,scrotum, and posterior aspects of both thighs.Cover with ABD pad daily and prn. Cleanse wound L hip with Saline. Apply Moisture Barrier paste .Cover with Optifoam drsg Daily and prn. Cleanse wound posterior upper L thigh with saline .Apply Hydrogel. Cover with Optifoam drsg Daily and prn. Apply Cavilon Skin Barrier to L earlobe daily. Please monitor. Apply Cavilon Skin Barrier to L heel. Cover with Optifoam drsg. Change every 7 days and prn. Apply Cavilon Skin Barrier to R heel. Cover with Optifoam drsg .Change every 7 days and prn. Air fluidized mattress. Reposition every 2hours or as tolerated. Off-load heels with pillow. (2) Acute and chronic respiratory failure Assessment & Plan: cont with breathing treatments trach stable trach site clean will change dressings daily (3) Acute pancreatitis Assessment & Plan: Findings consistent with uncomplicated nonnecrotizing acute pancreatitis. No evidence of associated peripancreatic abscess Surgical changes as described, including right lower quadrant ileostomy, subtotal colectomy with Haroldo procedure. Wall thickening of the Haroldo pouch. This could indicate inflammation. However, this is also present on both of the prior 2 exams and may be baseline for this patient Evidence of mild anasarca, with edema of the subcutaneous fat. This is a new finding Chronic appearing decubitus changes of the bilateral ischia. Correlate with clinical findings Complete left lower lobe consolidation. This is similar to both of the prior CTs , and is likely a chronic finding. There is progressive chronic interstitial fibrotic change involving the right middle lobe. There is also right lower lobe granulomatous calcification Extensive pulmonary parenchymal opacities bilaterally may reflect acute inflammation/infection, edema, progressive chronic scarring, or combination of the above. These are considerably more extensive than on the prior study Trace bilateral pleural fluid New finding of nonobstructive right renal collecting system calculs 4 mm calculus within the bladder lumen. This may represent a bladder calculus, a calculus and left ureteral orifice, or recently passed stone. If either of the latter, no evidence of resultant hydronephrosis or hydroureter Suprapubic catheter. This is a new finding since the 2016 exams. Interim removal of previously demonstrated Bledsoe catheter Gastrostomy Left renal cysts. Subcentimeter low-attenuation right renal lesions, too small to characterize, most likely benign simple cysts. No further follow-up necessary elevated amylase/lipase trending down leukocytosis GNR Bacteremia transfused anemia Unfortunately patient not able to participate in exam and difficult to identify if clinically pancreatitis or just laboratory data. Recent CT with uncomplicated pancreatitis but enzymes still remain elevated. Patient tolerated tube feeds. Patient with gram-negative belle bacteremia likely from UTI. Patient remains febrile intermittently with worsening leukocytosis on IV antibiotics. -no acute surgical intervention planned -transfuse as per hematology -Abx as per ID -trend lip/[place] - recent finding based on CT given patient cannot given history or participate in exam. CT with uncomplicated pancreatitis. okay for diet / feeds for now. IV fluids Javier Ricardo Dec 27, 2018 15:58
--- NOTE | 2018-12-27 16:45 | Progress Note ---
DATE: 12/26/2018 SUBJECTIVE: The patient is afebrile and hemodynamically improved. He is off pressor support. OBJECTIVE: VITAL SIGNS: His blood pressure is 98/60, his pulse is 90, respirations are 28, and temperature was 98.9. HEENT: Eyes were normal. ENT, mucous membranes were moist and intact. NECK: Supple with no JVD without lymph nodes. Tracheostomy site is clean. LUNGS: Clear without rhonchi, rales, or wheezing. Secretions are small, thin, and braros. HEART: Normal sounds with regular beats. There is no S3, S4, or pericardial rub. ABDOMEN: Soft and nontender with normal bowel sounds. Gastrostomy site is clean. EXTREMITIES: Warm without cyanosis, clubbing, or edema. LABORATORY AND DIAGNOSTIC DATA: His hemoglobin is 10.6, hematocrit 32.4 with MCV of 92, WBC of 8.7, and platelets 224,000. His BUN and creatinine is 14 and 0.6 respectively. His sodium is 144 and potassium 4.0. Chloride 102 imaging study. IMPRESSION: The patient is slowly improving. Repeat laboratory tests will be done in the a.m. The patient is close to a stable condition 48 hours ago. Neema Hutchins M.D. DR: PIERCE JOB#: [id number] CC:
[2018-12-27] MEDS ORDERED: NS 500ML ONE ×2 (18:50→19:01)
[2018-12-27] MEDS ORDERED: Sterile Water Irrig 1000ml IRRIG ONE ×2 (18:50→21:26)
[2018-12-27] MEDS ORDERED: D5 1/2NS 1000ml IV ONE (18:50)
[2018-12-27] MEDS ORDERED: Tubing IV Secondary IV ONE ×4 (18:50→19:06)
[2018-12-27] MEDS ORDERED: Tubing Blood Filter IV ONE ×2 (18:50→21:26)
[2018-12-27] MEDS ORDERED: NS 275ml ONE ×5 (18:50→21:26)
--- NOTE | 2018-12-27 19:00 | NUR ---
HAND-OFF: Report given to Terrie Frye RN.
--- NOTE | 2018-12-27 19:05 | NUR ---
NURSE NOTES: Report received from Jj/SHAKIR Fagan. Pt A/Ox2. potline monitor shows SR. Pt trach to vent dependent with portex 7. Ventilator settings: AC18, VT500, FiO2:30%, PEEP 5. GT present with Nepro running @ 35 ml/hr. Pt has a colostomy present on the R abominal quadrant, draining appropriately. an SPC, connected to a gravity is draining well with pale yellow urine. Pt has a EDA PICC, newly inserted today. Awaiting results to assure line is ok to use. A R fem TLC is present as well. Pt tolerating all settings well. Showing no signs of cardiac or respiratory distress. Bed in lowest position, bed alarms placed, call light within reach. Will continue to monitor and with patients plan of care.
--- NOTE | 2018-12-27 19:09 | NUR ---
HAND-OFF: Report given to Oleg Stout RN.
--- NOTE | 2018-12-27 19:15 | Diagnostic Imaging Report ---
Indication: Dyspnea Comparison: 12/26/2018 A single view chest radiograph was obtained. Findings: Accounting for differences in technique no significant change demonstrated. Infiltrate in the right upper lobe again noted. Generalized interstitial prominence demonstrated diffusely and bilaterally. Heart size is stable. IMPRESSION: No significant change from the prior day
--- NOTE | 2018-12-27 19:15 | Cardiology Report ---
APPROVED REPORT EXAM: Two-dimensional and M-mode echocardiogram with Doppler and color Doppler. INDICATION VEGITATION No discrete vegetations is seen, however infective endocarditis may not be excluded by transthoracic 2-D echo. Recommend DANIA if clinically correlated.
--- NOTE | 2018-12-27 19:17 | Diagnostic Imaging Report ---
Indication: ocean transportation intermediary venous access Findings: After the indications, procedure, risks, complications, and alternatives of the procedure were explained, written informed consent was obtained. The left upper extremity was prepped with alcohol. All elements of maximal sterile barrier technique were followed including usage of a cap, mask, sterile gown, sterile gloves, hand hygiene and a large sterile sheet. Sonographic evaluation of the upper extremity was performed demonstrating a patent and compressible basilic vein. Access was obtained under real-time ultrasound guidance (with utilization of sterile gel and sterile probe cover) and digital image was saved and archived. An .018 wire was introduced. Needle exchanged for a 5 Albanian peel-away sheath. Measurements were obtained. A 5 Albanian dual-lumen Power PICC line catheter was cut to 40 cm and introduced over the wire. Peel-away sheath and wire were removed.Catheter was secured to the skin using 2-0 Prolene suture. Both ports aspirate and flush easily. Post procedure chest x-ray demonstrates good position of the PICC line catheter is midline within the left innominate vein slightly short of the SVC. Impression: Successful placement of an upper extremity PICC line catheter. The catheter tip is in the left innominate vein.
--- NOTE | 2018-12-27 20:30 | NUR ---
NURSE NOTES: Pain medication provided. VSS. Showing no signs of distress. Will monitor. Addendum: 12/27/18 at 2302 by Rosalind Dejesus RN INCORRECT PATIENT. BS checked and insulin provided. VSS. Showing no signs of distress. Daughter at bedside.
[2018-12-27] MEDS: Dyna-Hex 2% Top Sol 2oz TOPIC SCH (20:36)
--- NOTE | 2018-12-27 22:00 | NUR ---
NURSE NOTES: Pt seen by Dr. Hutchins. Order received to transfer pt to [facility]. Awaiting for available room.
[2018-12-28] VITALS (10 sets, daily range): BP systolic 91–112; BP diastolic 53–73
--- NOTE | 2018-12-28 | NUR ---
NURSE NOTES: Pt sleeping and resting comfortably. VSS. Showing no signs of acute distress. Will continue to monitor.
[2018-12-28] MEDS: NovoLOG Insulin Flexpen SUBQ SCH ×6 (01:37→20:56)
[2018-12-28] MEDS: Acetaminophen 650mg/20.3ml GT PRN (01:38)
--- NOTE | 2018-12-28 02:00 | NUR ---
NURSE NOTES: Pt cleaned and repositioned, pain medication provided afterwards as requested by patients. VSS. Showing no signs of acute distress. Will continue to monitor
--- NOTE | 2018-12-28 04:15 | NUR ---
NURSE NOTES: Pt transferred to [facility], report given to Reza RN. Showing no signs of acute distress. VSS. Cath tip sent out for culture.
--- NOTE | 2018-12-28 04:15 | Progress Note ---
DATE: 12/27/2018 SUBJECTIVE: The patient is awake and alert, but unable to verbalize his and did not return to the mental status he had before the infection. PHYSICAL EXAMINATION: VITAL SIGNS: Blood pressure 102/58, pulse 95, respirations 23, and temperature 98.2. HEENT: Eyes were normal. ENT, mucous membranes were moist and intact. NECK: Supple with no JVD without lymph nodes. Tracheostomy site is clean. LUNGS: Bilateral rhonchi diffusely, more on the right than on the left. HEART: Normal sounds with regular beats. There is tachycardia at rest. ABDOMEN: Soft and nontender with normal bowel sounds. Gastrostomy site is clean. . EXTREMITIES: Warm without cyanosis, clubbing, or edema. LABORATORY AND DIAGNOSTIC DATA: Hemoglobin is 10.7, hematocrit 32.7, MCV of 92, WBC of 10.7, and platelets is 224. His BUN and creatinine is 27 and 0.7 respectively. His sodium is 142, potassium 3.9, chloride 109, CO2 is 18. CRP is 14. SGOT, SGPT, alkaline phosphatase are normal. His albumin is 1.3. Chest x-ray done today revealed no significant change from the previous x-ray on 12/26/2018, right upper lobe infiltrate and diffuse generalized IMPRESSION AND PLAN: The patient is on . The patient is now stable enough to be moved from ICU to [facility]. Repeat laboratory tests will be done in a.m. Neema Hutchins M.D. DR: Zee JOB#: [id number] CC:
[2018-12-28] MEDS ORDERED: Nitroglycerin Subl 0.4mg tab SL PRN (04:50)
[2018-12-28] MEDS ORDERED: Acetaminophen 650mg/20.3ml GT PRN ×2 (05:00→05:45)
[2018-12-28 05:18] LABS: BASOPHILS % (AUTO) 0.8 % (0.0-2.0); EOSINOPHILS % (AUTO) 4.8 % (0.0-3.0); HEMATOCRIT 30.8 % (42.0-52.0); HEMOGLOBIN 10.2 G/DL (14.2-18.0); LYMPHOCYTES % (AUTO) 9.3 % (20.0-45.0); MEAN CORPUSCULAR VOLUME 91 FL (80-99); MONOCYTES % (AUTO) 3.8 % (1.0-10.0); NEUTROPHILS % (AUTO) 81.3 % (45.0-75.0); PLATELET COUNT 209 K/UL (150-450); RED BLOOD COUNT 3.38 M/UL (4.70-6.10); RED CELL DISTRIBUTION WIDTH 15.4 % (11.6-14.8); WHITE BLOOD COUNT 11.5 K/UL (4.8-10.8)
--- NOTE | 2018-12-28 05:30 | NUR ---
NURSE NOTES: Pt received from [facility]. Pt is alert and oriented times 1 and is non verbal. potline monitor placed, pt. teaching done and pt. oriented to room, bed is in lowest position and call light is in easy reach, bed alarm on, and safety brakes engaged, Pt appears to be in no respiratory distress at this moment with trac to vent settings of Portex 7, FiO2 at 30%, AC 18, PEEP of 5. PT G tube is noted and is running Nepro @ 35cc/hr- G tube is patent and intact. pt. appears to be resting comfortably, pt also has a EDA PICC line (Double lumen) noted/ TKO. Large sacral wound noted on pt. wound noted on pts Lt. ear- pictures taken and uploaded, Safety measures continued, will continue with plan of care.
[2018-12-28 05:44] LABS: PHOSPHORUS 2.8 MG/DL (2.5-4.9)
[2018-12-28 06:00] LABS: ALANINE AMINOTRANSFERASE 15 U/L (12-78); ALBUMIN 1.3 G/DL (3.4-5.0); ALBUMIN/GLOBULIN RATIO 0.2 (1.0-2.7); ALKALINE PHOSPHATASE 128 U/L (46-116); ANION GAP 11 mmol/L (5-15); ASPARTATE AMINO TRANSFERASE 22 U/L (15-37); BILIRUBIN,TOTAL 0.2 MG/DL (0.2-1.0); BLOOD UREA NITROGEN 23 mg/dL (7-18); CALCIUM 9.3 MG/DL (8.5-10.1); CARBON DIOXIDE 21 MMOL/L (21-32); CHLORIDE 109 MMOL/L (98-107); CREATININE 0.8 MG/DL (0.55-1.30); POTASSIUM 4.4 MMOL/L (3.5-5.1); SODIUM 141 MMOL/L (136-145)
--- NOTE | 2018-12-28 07:13 | NUR ---
HAND-OFF: Report given to Rylan SCHILLING and SHAKIR Gardner. pt remains stable. no distress noted.
--- NOTE | 2018-12-28 07:15 | NUR ---
NURSE NOTES: Patient received from Zachery Higginbotham RN. Patient is trach to vent on 30% FaiO2 with no signs of distress. Colostomy noted, bed at its lowest position and call light in reach. Will continue to monitor.
[2018-12-28] MEDS: metFORMIN 500mg tab GT SCH ×2 (08:39→17:42)
[2018-12-28] MEDS ORDERED: dilTIAZem HCl 25mg/5ml Inj IVP PRN (08:45)
[2018-12-28] MEDS: Heparin 5000 units/ml inj SUBQ SCH ×2 (08:48→20:56)
--- NOTE | 2018-12-28 09:43 | NUR ---
RADIOLOGY DEPT., CHEST X-RAY DONE.-P.DYE
[2018-12-28] MEDS ORDERED: Miralax 17gm pkt GT PRN (09:45)
--- NOTE | 2018-12-28 09:45 | NUR ---
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 RESPIRATORY FAILURE VS: BP 91/53, P 97, T 98.9, RR 28, SpO2 96 on Vent FiO2 30%, AC18, TV500, PEEP of 5 WBC 11.5, RBC 3.38, Hgb 10.2, Hct 30.8, HCO3 17.8, BUN 23, ALK PHOS 128 CXR IMPRESSION: Successful placement of an upper extremity PICC line catheter. The catheter tip is in the left innominate vein. IS:LINEZOLID 300 ml IVPB LOPID 600mg GT HEPARIN SUBQ PREVACID 30mg GT METFORMIN 500mg GT STARLIX 120mg CARDIZEM 10mg IVP NOVOLOG SUBQ SDU STATUS
--- NOTE | 2018-12-28 11:10 | GI Progress Note ---
Assessment/Plan Problems: (1) Colostomy care ICD Codes: Z43.3 - Encounter for attention to colostomy SNOMED: 009997676 (2) Anemia ICD Codes: D64.9 - Anemia, unspecified SNOMED: 906970125 (3) Feeding by G-tube ICD Codes: Z93.1 - Gastrostomy status SNOMED: 858822765, [id number] (4) Abdominal wall cellulitis ICD Codes: L03.311 - Cellulitis of abdominal wall SNOMED: 80781976 (5) Acute pancreatitis ICD Codes: K85.90 - Acute pancreatitis without necrosis or infection, unspecified SNOMED: 680289111 (6) Pancreatitis ICD Codes: K85.90 - Acute pancreatitis without necrosis or infection, unspecified SNOMED: 91214703 Status: stable Status Narrative Discussed with Dr. Jackson Assessment/Plan Occult blood stool positive Hepatitis panel negative Stable H&H - PRN transfusions ppi daily lopid GTFs per RD tumor markers Trend lipase, downtrending The patient was seen and examined at bedside and all new and available data was reviewed in the patients chart. I agree with the above findings, impression and plan. (Patient seen earlier today. Signature stamp does not reflect patient encounter time.). - Benjamin Jackson MD Subjective Subjective Limited Objective Last 24 Hour Vital Signs Date Time Temp Pulse Resp B/P (MAP) Pulse Ox O2 Delivery O2 Flow Rate FiO2 12/28/18 09:00 90 24 30 12/28/18 08:00 Mechanical Ventilator 12/28/18 08:00 97 12/28/18 08:00 98.1 96 28 105/73 (84) 97 12/28/18 08:00 30 12/28/18 07:17 97 26 30 12/28/18 05:00 98.9 91 22 91/58 (69) 97 12/28/18 04:59 94 28 30 12/28/18 04:00 95 12/28/18 04:00 98.9 95 28 91/53 (66) 96 12/28/18 04:00 Mechanical Ventilator 12/28/18 04:00 30 12/28/18 03:04 97 27 30 12/28/18 03:00 98 28 94/58 (70) 97 12/28/18 02:08 98.2 12/28/18 02:00 100 31 97/54 (68) 96 12/28/18 01:19 101 24 30 12/28/18 01:00 106 28 104/66 (79) 96 12/28/18 00:00 Mechanical Ventilator 12/28/18 00:00 99 12/28/18 00:00 97.9 100 28 96/56 (69) 95 12/27/18 23:24 99 28 30 12/27/18 23:00 97 27 102/57 (72) 95 12/27/18 22:00 97 26 105/56 (72) 95 12/27/18 21:38 96 28 30 12/27/18 21:00 95 25 102/58 (73) 97 12/27/18 20:00 94 12/27/18 20:00 30 12/27/18 20:00 98.2 94 26 96/56 (69) 96 12/27/18 20:00 Mechanical Ventilator 12/27/18 19:41 94 29 30 12/27/18 19:00 93 28 96/55 (69) 95 12/27/18 18:00 90 24 94/57 (69) 96 12/27/18 17:00 91 27 93/61 (72) 96 12/27/18 17:00 90 22 30 12/27/18 16:00 30 12/27/18 16:00 100 12/27/18 16:00 90 25 99/57 (71) 96 12/27/18 16:00 Mechanical Ventilator 12/27/18 15:00 96 28 90/62 (71) 95 12/27/18 14:40 108 22 30 12/27/18 14:00 98 27 106/56 (73) 95 12/27/18 13:29 102 25 30 12/27/18 13:29 102 25 Mechanical Ventilator 15.0 30 12/27/18 13:20 106/64 12/27/18 13:00 97.0 104 28 109/62 (78) 98 12/27/18 12:15 106/64 12/27/18 12:00 99.3 106 26 106/64 (78) 100 12/27/18 12:00 Mechanical Ventilator 12/27/18 12:00 103 12/27/18 12:00 30 Intake and Output 12/27/18 12/28/18 19:00 07:00 Intake Total 2202.5 ml 870 ml Output Total 870 ml 1410 ml Balance 1332.5 ml -540 ml Intake Free Water 450 ml 150 ml IV Total 1332.5 ml 300 ml Tube Feeding 420 ml 420 ml Output Urine Total 570 ml 860 ml Stool Total 300 ml 550 ml # Bowel Movements 30 Laboratory Tests Test 12/28/18 03:30 White Blood Count 11.5 K/UL (4.8-10.8) H Red Blood Count 3.38 M/UL (4.70-6.10) L Hemoglobin 10.2 G/DL (14.2-18.0) L Hematocrit 30.8 % (42.0-52.0) L Mean Corpuscular Volume 91 FL (80-99) Mean Corpuscular Hemoglobin 30.3 PG (27.0-31.0) Mean Corpuscular Hemoglobin Concent 33.2 G/DL (32.0-36.0) Red Cell Distribution Width 15.4 % (11.6-14.8) H Platelet Count 209 K/UL (150-450) Mean Platelet Volume 9.5 FL (6.5-10.1) Neutrophils (%) (Auto) 81.3 % (45.0-75.0) H Lymphocytes (%) (Auto) 9.3 % (20.0-45.0) L Monocytes (%) (Auto) 3.8 % (1.0-10.0) Eosinophils (%) (Auto) 4.8 % (0.0-3.0) H Basophils (%) (Auto) 0.8 % (0.0-2.0) Sodium Level 141 MMOL/L (136-145) Potassium Level 4.4 MMOL/L (3.5-5.1) Chloride Level 109 MMOL/L (98-107) H Carbon Dioxide Level 21 MMOL/L (21-32) Anion Gap 11 mmol/L (5-15) Blood Urea Nitrogen 23 mg/dL (7-18) H Creatinine 0.8 MG/DL (0.55-1.30) Estimat Glomerular Filtration Rate mL/min (>60) Glucose Level 153 MG/DL (74-106) H Uric Acid 5.7 MG/DL (2.6-7.2) Calcium Level 9.3 MG/DL (8.5-10.1) Phosphorus Level 2.8 MG/DL (2.5-4.9) Magnesium Level 2.4 MG/DL (1.8-2.4) Total Bilirubin 0.2 MG/DL (0.2-1.0) Aspartate Amino Transf (AST/SGOT) 22 U/L (15-37) Alanine Aminotransferase (ALT/SGPT) 15 U/L (12-78) Alkaline Phosphatase 128 U/L (46-116) H Pro-B-Type Natriuretic Peptide 756 pg/mL (0-125) H Total Protein 7.5 G/DL (6.4-8.2) Albumin 1.3 G/DL (3.4-5.0) L Globulin 6.2 g/dL Albumin/Globulin Ratio 0.2 (1.0-2.7) L Height (Feet): 5 Height (Inches): 8.00 Weight (Pounds): 149 General Appearance: WD/WN, no apparent distress, alert Cardiovascular: normal rate Respiratory/Chest: normal breath sounds, no respiratory distress Abdominal Exam: normal bowel sounds, non tender, soft, GT site - Clean dry and intact Extremities: normal range of motion, non-tender Cirilo Germain NP Dec 28, 2018 11:10
--- NOTE | 2018-12-28 11:50 | Pulmonolgy Critical Care Note ---
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 with: nurses, consultants, watch caserincident response manager - Objective Last 24 Hour Vital Signs Date Time Temp Pulse Resp B/P (MAP) Pulse Ox O2 Delivery O2 Flow Rate FiO2 12/28/18 11:20 88 22 30 12/28/18 09:00 90 24 30 12/28/18 08:00 Mechanical Ventilator 12/28/18 08:00 97 12/28/18 08:00 98.1 96 28 105/73 (84) 97 12/28/18 08:00 30 12/28/18 07:17 97 26 30 12/28/18 05:00 98.9 91 22 91/58 (69) 97 12/28/18 04:59 94 28 30 12/28/18 04:00 95 12/28/18 04:00 98.9 95 28 91/53 (66) 96 12/28/18 04:00 Mechanical Ventilator 12/28/18 04:00 30 12/28/18 03:04 97 27 30 12/28/18 03:00 98 28 94/58 (70) 97 12/28/18 02:08 98.2 12/28/18 02:00 100 31 97/54 (68) 96 12/28/18 01:19 101 24 30 12/28/18 01:00 106 28 104/66 (79) 96 12/28/18 00:00 Mechanical Ventilator 12/28/18 00:00 99 12/28/18 00:00 97.9 100 28 96/56 (69) 95 12/27/18 23:24 99 28 30 12/27/18 23:00 97 27 102/57 (72) 95 12/27/18 22:00 97 26 105/56 (72) 95 12/27/18 21:38 96 28 30 12/27/18 21:00 95 25 102/58 (73) 97 12/27/18 20:00 94 12/27/18 20:00 30 12/27/18 20:00 98.2 94 26 96/56 (69) 96 12/27/18 20:00 Mechanical Ventilator 12/27/18 19:41 94 29 30 12/27/18 19:00 93 28 96/55 (69) 95 12/27/18 18:00 90 24 94/57 (69) 96 12/27/18 17:00 91 27 93/61 (72) 96 12/27/18 17:00 90 22 30 12/27/18 16:00 30 12/27/18 16:00 100 12/27/18 16:00 90 25 99/57 (71) 96 12/27/18 16:00 Mechanical Ventilator 12/27/18 15:00 96 28 90/62 (71) 95 12/27/18 14:40 108 22 30 12/27/18 14:00 98 27 106/56 (73) 95 12/27/18 13:29 102 25 30 12/27/18 13:29 102 25 Mechanical Ventilator 15.0 30 12/27/18 13:20 106/64 12/27/18 13:00 97.0 104 28 109/62 (78) 98 12/27/18 12:15 106/64 12/27/18 12:00 99.3 106 26 106/64 (78) 100 12/27/18 12:00 Mechanical Ventilator 12/27/18 12:00 103 12/27/18 12:00 30 Status: awake, sedated Condition: critical HEENT: atraumatic Neck: full ROM Lungs: clear Heart: HR/BP stable, regular Abdomen: active bowel sounds, feeding tube Extremities: edema Decubiti: stage Micro: Microbiology Date/Time Source Procedure Growth Status 12/26/18 04:00 Urine,Clean Catch Urine Culture - Final Meera Albicans Complete Accucheck: 216 Critical Care - Subjective ROS Limited/Unobtainable: No Condition: critical EKG Rhythm: Sinus Rhythm FI02: 30 Vent Support Breath Rate: 18 Vent Support Mode: AC Vent Tidal Volume: 500 Sputum Amount: Moderate PEEP: 5.0 PIP: 36 Tube Feeding Amount: 35 I&O: Intake and Output 12/27/18 12/28/18 19:00 07:00 Intake Total 2202.5 ml 870 ml Output Total 870 ml 1410 ml Balance 1332.5 ml -540 ml Intake Free Water 450 ml 150 ml IV Total 1332.5 ml 300 ml Tube Feeding 420 ml 420 ml Output Urine Total 570 ml 860 ml Stool Total 300 ml 550 ml # Bowel Movements 30 Labs: Laboratory Tests Test 12/28/18 03:30 White Blood Count 11.5 K/UL (4.8-10.8) H Red Blood Count 3.38 M/UL (4.70-6.10) L Hemoglobin 10.2 G/DL (14.2-18.0) L Hematocrit 30.8 % (42.0-52.0) L Mean Corpuscular Volume 91 FL (80-99) Mean Corpuscular Hemoglobin 30.3 PG (27.0-31.0) Mean Corpuscular Hemoglobin Concent 33.2 G/DL (32.0-36.0) Red Cell Distribution Width 15.4 % (11.6-14.8) H Platelet Count 209 K/UL (150-450) Mean Platelet Volume 9.5 FL (6.5-10.1) Neutrophils (%) (Auto) 81.3 % (45.0-75.0) H Lymphocytes (%) (Auto) 9.3 % (20.0-45.0) L Monocytes (%) (Auto) 3.8 % (1.0-10.0) Eosinophils (%) (Auto) 4.8 % (0.0-3.0) H Basophils (%) (Auto) 0.8 % (0.0-2.0) Sodium Level 141 MMOL/L (136-145) Potassium Level 4.4 MMOL/L (3.5-5.1) Chloride Level 109 MMOL/L (98-107) H Carbon Dioxide Level 21 MMOL/L (21-32) Anion Gap 11 mmol/L (5-15) Blood Urea Nitrogen 23 mg/dL (7-18) H Creatinine 0.8 MG/DL (0.55-1.30) Estimat Glomerular Filtration Rate mL/min (>60) Glucose Level 153 MG/DL (74-106) H Uric Acid 5.7 MG/DL (2.6-7.2) Calcium Level 9.3 MG/DL (8.5-10.1) Phosphorus Level 2.8 MG/DL (2.5-4.9) Magnesium Level 2.4 MG/DL (1.8-2.4) Total Bilirubin 0.2 MG/DL (0.2-1.0) Aspartate Amino Transf (AST/SGOT) 22 U/L (15-37) Alanine Aminotransferase (ALT/SGPT) 15 U/L (12-78) Alkaline Phosphatase 128 U/L (46-116) H Pro-B-Type Natriuretic Peptide 756 pg/mL (0-125) H Total Protein 7.5 G/DL (6.4-8.2) Albumin 1.3 G/DL (3.4-5.0) L Globulin 6.2 g/dL Albumin/Globulin Ratio 0.2 (1.0-2.7) L Abhishek Guerra MD Dec 28, 2018 11:50
--- NOTE | 2018-12-28 11:52 | Diagnostic Imaging Report ---
Indication: Dyspnea Comparison: 12/27/2018 A single view chest radiograph was obtained. Findings: Accounting for differences in technique there is no significant change. Pulmonary fibrosis demonstrated with predominance in the right upper lobe. Tracheostomy and heart size are stable. IMPRESSION: No change from the prior day
--- NOTE | 2018-12-28 12:38 | Nephrology Progress Note ---
Assessment/Plan Problem List: (1) Hypercalcemia (2) ATN (acute tubular necrosis) (3) Anemia (4) Feeding by G-tube (5) Acute and chronic respiratory failure (6) UTI (urinary tract infection) (7) Hyponatremia Assessment to ICU for Hypotension doing poorly Patient have mainly Pre Renal Azotemia with possible underlying CKD- Low Na partly depletional, partly due to Hyperglycemia RESOLVED Other conditions as outlined: (1) Acute and chronic respiratory failure ([id number]) (2) Sepsis (3) Malnutrition and HypoAlbuminemia (4) UTI (urinary tract infection) (5) Anemia (6) Diabetes mellitus, type II (7) Colostomy care (8) Cerebral vascular disease (9) Decubitus ulcer of sacral region, stage 2 (10) Feeding by G-tube (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 Plan K & Phos supplement start Levemir Stop Digoxin stop Atenolol Stop Cardiazem Pressors as needed Albumin bolus AREDIA 90 mg for HYPERCALCEMIA on 12/23 - Fu Calcium level will redose Kayexelate for high K as needed On Starlix feeding to glucerna Keep electrolytes in check Keep BS and BP in check per consultants Subjective ROS Limited/Unobtainable: Yes Objective Objective Last 24 Hour Vital Signs Date Time Temp Pulse Resp B/P (MAP) Pulse Ox O2 Delivery O2 Flow Rate FiO2 12/28/18 12:00 Mechanical Ventilator 12/28/18 12:00 30 12/28/18 12:00 98.2 97 26 107/72 (84) 94 12/28/18 11:20 88 22 30 12/28/18 09:00 90 24 30 12/28/18 08:00 Mechanical Ventilator 12/28/18 08:00 97 12/28/18 08:00 98.1 96 28 105/73 (84) 97 12/28/18 08:00 30 12/28/18 07:17 97 26 30 12/28/18 05:00 98.9 91 22 91/58 (69) 97 12/28/18 04:59 94 28 30 12/28/18 04:00 95 12/28/18 04:00 98.9 95 28 91/53 (66) 96 12/28/18 04:00 Mechanical Ventilator 12/28/18 04:00 30 12/28/18 03:04 97 27 30 12/28/18 03:00 98 28 94/58 (70) 97 12/28/18 02:08 98.2 12/28/18 02:00 100 31 97/54 (68) 96 12/28/18 01:19 101 24 30 12/28/18 01:00 106 28 104/66 (79) 96 12/28/18 00:00 Mechanical Ventilator 12/28/18 00:00 99 12/28/18 00:00 97.9 100 28 96/56 (69) 95 12/27/18 23:24 99 28 30 12/27/18 23:00 97 27 102/57 (72) 95 12/27/18 22:00 97 26 105/56 (72) 95 12/27/18 21:38 96 28 30 12/27/18 21:00 95 25 102/58 (73) 97 12/27/18 20:00 94 12/27/18 20:00 30 12/27/18 20:00 98.2 94 26 96/56 (69) 96 12/27/18 20:00 Mechanical Ventilator 12/27/18 19:41 94 29 30 12/27/18 19:00 93 28 96/55 (69) 95 12/27/18 18:00 90 24 94/57 (69) 96 12/27/18 17:00 91 27 93/61 (72) 96 12/27/18 17:00 90 22 30 12/27/18 16:00 30 12/27/18 16:00 100 12/27/18 16:00 90 25 99/57 (71) 96 12/27/18 16:00 Mechanical Ventilator 12/27/18 15:00 96 28 90/62 (71) 95 12/27/18 14:40 108 22 30 12/27/18 14:00 98 27 106/56 (73) 95 12/27/18 13:29 102 25 30 12/27/18 13:29 102 25 Mechanical Ventilator 15.0 30 12/27/18 13:20 106/64 12/27/18 13:00 97.0 104 28 109/62 (78) 98 Intake and Output 12/27/18 12/28/18 19:00 07:00 Intake Total 2202.5 ml 870 ml Output Total 870 ml 1410 ml Balance 1332.5 ml -540 ml Intake Free Water 450 ml 150 ml IV Total 1332.5 ml 300 ml Tube Feeding 420 ml 420 ml Output Urine Total 570 ml 860 ml Stool Total 300 ml 550 ml # Bowel Movements 30 Laboratory Tests 12/28/18 03:30: White Blood Count 11.5H, Red Blood Count 3.38L, Hemoglobin 10.2L, Hematocrit 30.8L, Mean Corpuscular Volume 91, Mean Corpuscular Hemoglobin 30.3, Mean Corpuscular Hemoglobin Concent 33.2, Red Cell Distribution Width 15.4H, Platelet Count 209, Mean Platelet Volume 9.5, Neutrophils (%) (Auto) 81.3H, Lymphocytes (%) (Auto) 9.3L, Monocytes (%) (Auto) 3.8, Eosinophils (%) (Auto) 4.8H, Basophils (%) (Auto) 0.8, Sodium Level 141, Potassium Level 4.4, Chloride Level 109H, Carbon Dioxide Level 21, Anion Gap 11, Blood Urea Nitrogen 23H, Creatinine 0.8, Estimat Glomerular Filtration Rate , Glucose Level 153H, Uric Acid 5.7, Calcium Level 9.3, Phosphorus Level 2.8, Magnesium Level 2.4, Total Bilirubin 0.2, Aspartate Amino Transf (AST/SGOT) 22, Alanine Aminotransferase ( ALT/SGPT) 15, Alkaline Phosphatase 128H, Pro-B-Type Natriuretic Peptide 756H, Total Protein 7.5, Albumin 1.3L, Globulin 6.2, Albumin/Globulin Ratio 0.2L Height (Feet): 5 Height (Inches): 8.00 Weight (Pounds): 149 Cardiovascular: tachycardia Respiratory/Chest: decreased breath sounds Abdomen: distended Objective no change Migue Moreland MD Dec 28, 2018 12:38
--- NOTE | 2018-12-28 14:11 | Infectious Diseases Prog Note ---
Assessment/Plan Assessment/Plan Assessment: Gram positive bacteremia- PICC line infection -12/26 2d echo: no vegetations 12/23 SP -Removal of PICC line - -12/20 1/ E. fecalis (S Van, amp), 1/ MRSA. PICC line; Peripheral NTD; Bcx NTD; 12/23 NTD Septic shock , SP Severe Sepsis 2ry to GNR, sp Rx -12/24 CXR: Bilateral interstitial and airspace opacities, worse in the right upper lobe, slightly worse than prior study. -12/21 CXR: Bilateral interstitial and airspace opacities, associated bronchiectasis are again demonstrated. There is blunting of the left costophrenic sulcus again demonstrated. -12/17 CXR: No significant interval change in the diffuse patchy bilateral reticular interstitial and airspace opacities. -CXR: Probable small left pleural effusion, also evident on prior study 2017. Bilateral interstitial disease, unchanged, suspect chronic. Correlate with clinical findings -sp CX MDR PsA (S Gentamicin, AMikacin, Cefepime, Aztreonam, Tobramycin); repeats sp cx 12/20 MRSA; likely colonzier as vent settings stable GNR bacteremia, likely from UTI -CT abd/p: Findings consistent with uncomplicated nonnecrotizing acute pancreatitis. No evidence of associated peripancreatic abscess Surgical changes as described, including right lower quadrant ileostomy, subtotal colectomy with Haroldo procedure. Wall thickening of the Haroldo pouch. This could indicate inflammation. However, this is also present on both of the prior 2 exams and may be baseline for this patien. Evidence of mild anasarca, with edema of the subcutaneous fat. This is a new finding. Chronic appearing decubitus changes of the bilateral ischia. Correlate with clinical findings. Complete left lower lobe consolidation. This is similar to both of the prior CTs, andis likely a chronic finding. There is progressive chronic interstitial fibrotic change involving the right middle lobe. There is also right lower lobe granulomatous calcification, Extensive pulmonary parenchymal opacities bilaterally may reflect acute inflammation/infection, edema, progressive chronic scarring, orcombination of the above. These are considerably more extensive than on the prior study -u/a 10-15, nit neg, luek +3; ucx 50-60k Enterococcus (Vanco resist; S AMp), 40-50 K Proteus -/ Bcx 3/4 Proteus; 12/08 Bcx 1/4 Proteus (S Aztreonam; R Cipro, levo; I Imipenem); Acute pancreatitis -lipase ~1k Fever - recurrent- in the setting of bacteremia and pancreaitis; Leukocytosis , resolved--in the setting of bacteremia, UTI and acute pancreatitis CONS bacteremia- likely contaminant -12/12 Bcx 1/ CONS; 12/14 Bcx Neg MAULIK, improving dysphagia s/p peg COPD GBS quadriplegia chronic resp failure s/p trach HTN CVA, nonverbal anemia SNF resident Plan: -Continue Linezolid # / for E. fecalis and MRSA bacteremia in the setting of vancomycin allergy -12/22 SP Aztreonam #14 -12/21 SP INH tobramycin #7 -12/16 SP IV Daptomycin #7 -f/u Repeat cultures -Monitor CBC/CMP, temperatures -PEG/Trach care -Aspiration precautions -management of acute pancreatitis per primary team. Subjective Allergies: Coded Allergies: PENICILLINS (Unverified Allergy, Unknown, 02/26/16) POLYMYXIN B (Unverified Allergy, Unknown, 02/26/16) VANCOMYCIN (Unverified Allergy, Unknown, 02/26/16) Subjective afebrile > 72 hrs no leukocytosis repeat Bcx NTD transferred from ICU to [facility] Objective Vital Signs Last 24 Hour Vital Signs Date Time Temp Pulse Resp B/P (MAP) Pulse Ox O2 Delivery O2 Flow Rate FiO2 12/28/18 12:41 90 30 30 12/28/18 12:00 94 12/28/18 12:00 Mechanical Ventilator 12/28/18 12:00 30 12/28/18 12:00 98.2 97 26 107/72 (84) 94 12/28/18 11:20 88 22 30 12/28/18 09:00 90 24 30 12/28/18 08:00 Mechanical Ventilator 12/28/18 08:00 97 12/28/18 08:00 98.1 96 28 105/73 (84) 97 12/28/18 08:00 30 12/28/18 07:17 97 26 30 12/28/18 05:00 98.9 91 22 91/58 (69) 97 12/28/18 04:59 94 28 30 12/28/18 04:00 95 12/28/18 04:00 98.9 95 28 91/53 (66) 96 12/28/18 04:00 Mechanical Ventilator 12/28/18 04:00 30 12/28/18 03:04 97 27 30 12/28/18 03:00 98 28 94/58 (70) 97 12/28/18 02:08 98.2 12/28/18 02:00 100 31 97/54 (68) 96 12/28/18 01:19 101 24 30 12/28/18 01:00 106 28 104/66 (79) 96 12/28/18 00:00 Mechanical Ventilator 12/28/18 00:00 99 12/28/18 00:00 97.9 100 28 96/56 (69) 95 12/27/18 23:24 99 28 30 12/27/18 23:00 97 27 102/57 (72) 95 12/27/18 22:00 97 26 105/56 (72) 95 12/27/18 21:38 96 28 30 12/27/18 21:00 95 25 102/58 (73) 97 12/27/18 20:00 94 12/27/18 20:00 30 12/27/18 20:00 98.2 94 26 96/56 (69) 96 12/27/18 20:00 Mechanical Ventilator 12/27/18 19:41 94 29 30 12/27/18 19:00 93 28 96/55 (69) 95 12/27/18 18:00 90 24 94/57 (69) 96 12/27/18 17:00 91 27 93/61 (72) 96 12/27/18 17:00 90 22 30 12/27/18 16:00 30 12/27/18 16:00 100 12/27/18 16:00 90 25 99/57 (71) 96 12/27/18 16:00 Mechanical Ventilator 12/27/18 15:00 96 28 90/62 (71) 95 12/27/18 14:40 108 22 30 Height (Feet): 5 Height (Inches): 8.00 Weight (Pounds): 149 Objective HEENT: Eyes were normal. ENT, mucous membranes were not dehydrated. NECK: Supple. There was no goiter. No mass. No lymphadenopathy. There was no JVD. No bruits. Carotid upstroke was 2+. LUNGS: Clear. HEART: PMI was in the fifth left intercostal space in midclavicular line. There was normal S1 and normal S2. There was no murmur. No arrhythmia. No S3. No S4. No pericardial rub. ABDOMEN: Soft and nontender without organomegaly. There were no masses palpable. Normal bowel sounds without bruits. There was no guarding. No rebound tenderness. No ascites. No hernia. No CVA tenderness. EXTREMITIES: No cyanosis, no clubbing, and no edema. Extremities were warm. Microbiology Date/Time Source Procedure Growth Status 12/26/18 04:00 Urine,Clean Catch Urine Culture - Final Meera Albicans Complete Laboratory Tests Test 12/28/18 03:30 White Blood Count 11.5 K/UL (4.8-10.8) H Red Blood Count 3.38 M/UL (4.70-6.10) L Hemoglobin 10.2 G/DL (14.2-18.0) L Hematocrit 30.8 % (42.0-52.0) L Mean Corpuscular Volume 91 FL (80-99) Mean Corpuscular Hemoglobin 30.3 PG (27.0-31.0) Mean Corpuscular Hemoglobin Concent 33.2 G/DL (32.0-36.0) Red Cell Distribution Width 15.4 % (11.6-14.8) H Platelet Count 209 K/UL (150-450) Mean Platelet Volume 9.5 FL (6.5-10.1) Neutrophils (%) (Auto) 81.3 % (45.0-75.0) H Lymphocytes (%) (Auto) 9.3 % (20.0-45.0) L Monocytes (%) (Auto) 3.8 % (1.0-10.0) Eosinophils (%) (Auto) 4.8 % (0.0-3.0) H Basophils (%) (Auto) 0.8 % (0.0-2.0) Sodium Level 141 MMOL/L (136-145) Potassium Level 4.4 MMOL/L (3.5-5.1) Chloride Level 109 MMOL/L (98-107) H Carbon Dioxide Level 21 MMOL/L (21-32) Anion Gap 11 mmol/L (5-15) Blood Urea Nitrogen 23 mg/dL (7-18) H Creatinine 0.8 MG/DL (0.55-1.30) Estimat Glomerular Filtration Rate mL/min (>60) Glucose Level 153 MG/DL (74-106) H Uric Acid 5.7 MG/DL (2.6-7.2) Calcium Level 9.3 MG/DL (8.5-10.1) Phosphorus Level 2.8 MG/DL (2.5-4.9) Magnesium Level 2.4 MG/DL (1.8-2.4) Total Bilirubin 0.2 MG/DL (0.2-1.0) Aspartate Amino Transf (AST/SGOT) 22 U/L (15-37) Alanine Aminotransferase (ALT/SGPT) 15 U/L (12-78) Alkaline Phosphatase 128 U/L (46-116) H Pro-B-Type Natriuretic Peptide 756 pg/mL (0-125) H Total Protein 7.5 G/DL (6.4-8.2) Albumin 1.3 G/DL (3.4-5.0) L Globulin 6.2 g/dL Albumin/Globulin Ratio 0.2 (1.0-2.7) L Current Medications Medications (Trade) Dose Ordered Sig/[place] Route PRN Reason Start Time Stop Time Status Last Admin Dose Admin Acetaminophen (Tylenol) 650 mg Q4H PRN GT For Pain 12/28/18 05:00 01/06/19 16:59 Calcitonin [place] (Miacalcin) 1 sprays DAILY NASAL 12/28/18 09:00 01/24/19 10:59 12/28/18 10:51 Chlorhexidine Gluconate (Sandra-Hex 2%) 1 applic DAILY@1999 TOPIC 12/28/18 20:00 01/09/19 19:59 Dextrose (Dextrose 50%) 25 ml Q30M PRN IV Hypoglycemia 12/28/18 05:00 01/09/19 13:59 Dextrose (Dextrose 50%) 50 ml Q30M PRN IV Hypoglycemia 12/28/18 05:00 01/09/19 13:59 Diltiazem HCl (Cardizem) 10 mg BIDPRN PRN IVP FOR HR >140 12/28/18 08:45 01/11/19 08:44 Gemfibrozil (Lopid) 600 mg TWICE A DAY GT 12/28/18 09:00 01/14/19 10:14 12/28/18 08:39 Heparin Sodium (Porcine) (Heparin 5000 units/ml) 5,000 units EVERY 12 HOURS SUBQ 12/28/18 09:00 01/06/19 20:59 12/28/18 08:48 Insulin Aspart (NovoLOG) EVERY 4 HOURS SUBQ 12/28/18 05:00 01/09/19 04:59 12/28/18 10:51 Insulin Detemir (Levemir) 10 units Q12HR SUBQ 12/28/18 14:00 01/27/19 13:59 Lansoprazole (Prevacid) 30 mg BID GT 12/28/18 09:00 01/16/19 08:59 12/28/18 08:39 Linezolid 300 ml @ 300 mls/hr Q12HR IVPB 12/28/18 09:00 01/01/19 08:59 12/28/18 09:01 Metformin HCl (Glucophage) 500 mg BID GT 12/28/18 09:00 01/22/19 17:59 12/28/18 08:39 Nateglinide (Starlix) 120 mg Q8HR ORAL 12/28/18 06:00 01/17/19 21:59 12/28/18 05:07 Nitroglycerin (Ntg) 0.4 mg Q5M PRN SL Prn Chest Pain 12/28/18 04:50 01/06/19 16:59 Ondansetron HCl (Zofran) 4 mg Q6H PRN IVP Nausea & Vomiting 12/28/18 05:00 01/06/19 16:59 Polyethylene Glycol (Miralax) 17 gm DAILYPRN PRN GT Constipation 12/28/18 09:45 01/06/19 16:59 Aminah Champagne M.D. Dec 28, 2018 14:11
[2018-12-28] MEDS: Levemir Flexpen SUBQ SCH ×2 (14:34→20:55)
[2018-12-28] MEDS ORDERED: NS 275ml ONE (14:50)
[2018-12-28] MEDS ORDERED: Tubing IV Secondary IV ONE (14:50)
[2018-12-28] MEDS ORDERED: Albuterol/Ipratropium 3ml neb HHN PRN (17:45)
--- NOTE | 2018-12-28 17:50 | General Progress Note ---
Assessment/Plan Assessment/Plan Assessment/Recs: # Leukocytosis/Elevated white blood cell count,potentially due to infection with gram negative bacteremia, with uti and on abx --> have reviewed peripheral smear and bandemia/neutrophilia noted on initial smear was noted --> continue antibiotics if they have been started by ID team, titrate as needed --> monitor for resolution ---> WBC trend: 11-->16-->15-->14-->11-->12-->10.8-->11-->12 # Anemia of chronic disease due to underlying chronic medical issues, multifactorial --> Anemia workup has been reviewed, Ferritin 1573 --> No evidence of hemolysis is noted, peripheral smear has been reviewed. --> Hgb goal >7. Transfuse prn. --> Epogen or iron at this time is not particularly indicated --> Medications have been reviewed --> HGB trend: 7.8-->7.6-->6.2-->6.4->7.1-->8.7-->9.1-->8.4-->7.8-->9.4-->7.3--> 10.6 --> received prbc 12/25 # Thrombocytopenia - potential causes multifactorial, evaluate liver and viral etiologies to begin, also could be related to underlying medications --> Hep panel and HIV negative --> US abd to evaluate for cirrhosis and hsm reviewed --> Peripheral smear ordered to evaluate for blasts/schistocytes does not reveal any --> abx and other meds have been reviewed --> ok for ppx if plt >50k w/ either heparin or lovenox --> Transfuse if Plt < 20k and fever, or if Plt < 10k without fever # Hypercalcemia potentailly related to dehydration --> s/p aredia as per renal --> pth reviewed # Severe prerenal azotemia, on ivf --> improve po oral intake and consider appetite stimulant # Severe Sepsis, CXR: Probable small left pleural effusion, also evident on prior study 11/22/2017 --> appreciate ID recs # Bacteremia, likely from UTI, PNA --> tolerating abx well --> as per pulm The timing of this note does not necessarily reflect the time of the patient was seen. Greatly appreciate consultation! Subjective Constitutional: Denies: no symptoms, chills, diaphoresis, fever, malaise, weakness, other HEENT: Denies: no symptoms, eye pain, blurred vision, tearing, double vision, ear pain, ear discharge, nose pain, nose congestion, throat pain, throat swelling, mouth pain, mouth swelling, other Cardiovascular: Denies: no symptoms, chest pain, edema, irregular heart rate, lightheadedness, palpitations, syncope, other Respiratory: Denies: no symptoms, cough, orthopnea, shortness of breath, SOB with excertion, SOB at rest, sputum, stridor, wheezing, other Gastrointestinal/Abdominal: Denies: no symptoms, abdomen distended, abdominal pain, black stools, tarry stools, blood in stool, constipated, diarrhea, difficulty swallowing, nausea, poor appetite, poor fluid intake, rectal bleeding , vomiting, other Genitourinary: Denies: no symptoms, burning, discharge, frequency, flank pain, hematuria, incontinence, pain, urgency, other Neurologic/Psychiatric: Denies: no symptoms, anxiety, depressed, emotional problems, headache, numbness, paresthesia, pre-existing deficit, seizure, tingling, tremors, weakness, other Allergies: Coded Allergies: PENICILLINS (Unverified Allergy, Unknown, 02/26/16) POLYMYXIN B (Unverified Allergy, Unknown, 02/26/16) VANCOMYCIN (Unverified Allergy, Unknown, 02/26/16) Subjective 12/11: seen by bedside, vent dependent, leukocytosis, 11, hgb 7, will transfuse, no events 12/12: awake, comfortable wbc trending up at 16, no events 12/13: hgb 6.4, receiving transfusion, , wbc remains elevated. no acute events 12/14: seen by bedside, awake, comfortable low grade fever, wbc remains elevated at 15, bacteremia on IV Abx, hgb 7.1, will transfuse as needed 12/15: Wbc remains elevated, no events reported, hgb trending up 12/16: seen by bedside, awake, comfortable, no events 12/18: seen in the room, on vent and trach, no events 12/19: reviewed cbc and appears relatively stable, on starlix, remains in sdu 12/20: seen by bedside, on vent, mild leukocytosis 12/21: Pt is resting , on vent, wbc trending up , no events 12/22: exam is essentially unchanged, on abx, have discussed with pcp, rn, wbc better 12/23: transfuse wbc 11, on abx 12/24: no events to report, on vent/trach care, without issue 12/26: in icu, resting comfortanly, off pressors 12/27: tolerating feeding and vent well, no issues, ca reviewed 12/28: no events, remains nonverbal, without complaints Objective Last 24 Hour Vital Signs Date Time Temp Pulse Resp B/P (MAP) Pulse Ox O2 Delivery O2 Flow Rate FiO2 12/28/18 17:10 80 28 30 12/28/18 16:00 97.9 97 25 112/65 (81) 94 12/28/18 16:00 30 12/28/18 16:00 Mechanical Ventilator 12/28/18 15:00 88 26 30 12/28/18 12:41 90 30 30 12/28/18 12:00 94 12/28/18 12:00 Mechanical Ventilator 12/28/18 12:00 30 12/28/18 12:00 98.2 97 26 107/72 (84) 94 12/28/18 11:20 88 22 30 12/28/18 09:00 90 24 30 12/28/18 08:00 Mechanical Ventilator 12/28/18 08:00 97 12/28/18 08:00 98.1 96 28 105/73 (84) 97 12/28/18 08:00 30 12/28/18 07:17 97 26 30 12/28/18 05:00 98.9 91 22 91/58 (69) 97 12/28/18 04:59 94 28 30 12/28/18 04:00 95 12/28/18 04:00 98.9 95 28 91/53 (66) 96 12/28/18 04:00 Mechanical Ventilator 12/28/18 04:00 30 12/28/18 03:04 97 27 30 12/28/18 03:00 98 28 94/58 (70) 97 12/28/18 02:08 98.2 12/28/18 02:00 100 31 97/54 (68) 96 12/28/18 01:19 101 24 30 12/28/18 01:00 106 28 104/66 (79) 96 12/28/18 00:00 Mechanical Ventilator 12/28/18 00:00 99 12/28/18 00:00 97.9 100 28 96/56 (69) 95 12/27/18 23:24 99 28 30 12/27/18 23:00 97 27 102/57 (72) 95 12/27/18 22:00 97 26 105/56 (72) 95 12/27/18 21:38 96 28 30 12/27/18 21:00 95 25 102/58 (73) 97 12/27/18 20:00 94 12/27/18 20:00 30 12/27/18 20:00 98.2 94 26 96/56 (69) 96 12/27/18 20:00 Mechanical Ventilator 12/27/18 19:41 94 29 30 12/27/18 19:00 93 28 96/55 (69) 95 12/27/18 18:00 90 24 94/57 (69) 96 Intake and Output 12/27/18 12/28/18 19:00 07:00 Intake Total 2202.5 ml 870 ml Output Total 870 ml 1410 ml Balance 1332.5 ml -540 ml Intake Free Water 450 ml 150 ml IV Total 1332.5 ml 300 ml Tube Feeding 420 ml 420 ml Output Urine Total 570 ml 860 ml Stool Total 300 ml 550 ml # Bowel Movements 30 Laboratory Tests 12/28/18 03:30: White Blood Count 11.5H, Red Blood Count 3.38L, Hemoglobin 10.2L, Hematocrit 30.8L, Mean Corpuscular Volume 91, Mean Corpuscular Hemoglobin 30.3, Mean Corpuscular Hemoglobin Concent 33.2, Red Cell Distribution Width 15.4H, Platelet Count 209, Mean Platelet Volume 9.5, Neutrophils (%) (Auto) 81.3H, Lymphocytes (%) (Auto) 9.3L, Monocytes (%) (Auto) 3.8, Eosinophils (%) (Auto) 4.8H, Basophils (%) (Auto) 0.8, Sodium Level 141, Potassium Level 4.4, Chloride Level 109H, Carbon Dioxide Level 21, Anion Gap 11, Blood Urea Nitrogen 23H, Creatinine 0.8, Estimat Glomerular Filtration Rate , Glucose Level 153H, Uric Acid 5.7, Calcium Level 9.3, Phosphorus Level 2.8, Magnesium Level 2.4, Total Bilirubin 0.2, Aspartate Amino Transf (AST/SGOT) 22, Alanine Aminotransferase ( ALT/SGPT) 15, Alkaline Phosphatase 128H, Pro-B-Type Natriuretic Peptide 756H, Total Protein 7.5, Albumin 1.3L, Globulin 6.2, Albumin/Globulin Ratio 0.2L Height (Feet): 5 Height (Inches): 8.00 Weight (Pounds): 149 Objective HEENT: Eyes were normal. ENT, mucous membranes were not dehydrated. NECK: Supple. There was no goiter. No mass. No lad LUNGS: Clear. Vent++/trach HEART: PMI was in the fifth left intercostal space in midclavicular line. There was normal S1 and normal S2. There was no murmur. no s3/s4 ABDOMEN: Soft and nontender without organomegaly. There were no masses palpable. Normal bowel sounds without bruits. There was no guarding. No rebound tenderness. No ascites. No hernia. No CVA tenderness. Liver span was 8 cm, mostly nontender. EXTREMITIES: No cyanosis, no clubbing, and no edema. Extremities warm. Adarsh Kim MD Dec 28, 2018 17:50
--- NOTE | 2018-12-28 19:04 | NUR ---
NURSE NOTES: Report received from Rylan Rodriguez RN. Patient seen in bed in semi rousseau position with GTF of glucerna 1.5 running at 20cc/hr at this time, goals is 50cc/hr. Patient remains on trach to vent with previous setting, sp02 is 99%. Patient is alert, responsive, able to nod and shake head to answer easy questions. Denies any pain at this time. Noted with suprapubic cath and colostomy, both site is intact, urine is draining. PICCline to left upper arm is intact. Bed is in lowest position. Call light is within easy reach while in bed. Will continue to monitor.
--- NOTE | 2018-12-28 19:05 | NUR ---
HAND-OFF: Report given to Krishna Chávez RN.
[2018-12-28] MEDS: Dyna-Hex 2% Top Sol 2oz TOPIC SCH (20:54)
[2018-12-29] VITALS: BP 125/75
[2018-12-29] MEDS: NovoLOG Insulin Flexpen SUBQ SCH ×6 (00:38→21:29)
[2018-12-29 04:00] VITALS: BP 107/64
[2018-12-29 05:25] LABS: BASOPHILS % (AUTO) 0.8 % (0.0-2.0); EOSINOPHILS % (AUTO) 4.4 % (0.0-3.0); HEMATOCRIT 30.7 % (42.0-52.0); HEMOGLOBIN 10.1 G/DL (14.2-18.0); MEAN CORPUSCULAR VOLUME 91 FL (80-99); MONOCYTES % (AUTO) 3.4 % (1.0-10.0); NEUTROPHILS % (AUTO) 78.3 % (45.0-75.0); PLATELET COUNT 235 K/UL (150-450); RED BLOOD COUNT 3.37 M/UL (4.70-6.10); RED CELL DISTRIBUTION WIDTH 15.3 % (11.6-14.8); WHITE BLOOD COUNT 11.9 K/UL (4.8-10.8)
[2018-12-29 05:38] LABS: ANION GAP 12 mmol/L (5-15); BLOOD UREA NITROGEN 26 mg/dL (7-18); CALCIUM 9.5 MG/DL (8.5-10.1); CARBON DIOXIDE 19 MMOL/L (21-32); CHLORIDE 105 MMOL/L (98-107); CREATININE 0.7 MG/DL (0.55-1.30); PHOSPHORUS 2.6 MG/DL (2.5-4.9); POTASSIUM 4.9 MMOL/L (3.5-5.1); SODIUM 136 MMOL/L (136-145)
--- NOTE | 2018-12-29 07:00 | Progress Note ---
DATE: 12/28/2018 SUBJECTIVE: The patient is awake, alert, and afebrile. He has intermittent tachycardia at rest. PHYSICAL EXAMINATION: VITAL SIGNS: Blood pressure 110/63, his pulse is 95, respirations of 24, and temperature of 97.0. HEENT: Eyes were normal. ENT, mucous membranes were moist and intact. NECK: Supple with no JVD without lymph nodes. Tracheostomy site is clean. LUNGS: Clear without rhonchi, rales, or wheezing. Secretions are small, thin, and barros. HEART: Normal sounds with irregular beats. ABDOMEN: Soft and nontender with normal bowel sounds. EXTREMITIES: Warm without cyanosis, clubbing, or edema. LABORATORY AND DIAGNOSTIC DATA: His hemoglobin is 10.2, hematocrit 30.8 with MCV of 91, WBC of 11.5, and platelets are 209,000. His BUN and creatinine are 23 and 0.8 respectively. His sodium is 141, potassium 4.4, chloride 100, and CO2 is 21. His calcium is 9.2. Total protein is 2.4. . A chest x-ray taken today revealed no change and clear. IMPRESSION: The patient is afebrile and hemodynamically stable. Repeat laboratory tests will be done in the a.m. Neema Hutchins M.D. DR: PIERCE JOB#: [id number] CC:
--- NOTE | 2018-12-29 07:06 | NUR ---
HAND-OFF: Report given to SHAKIR Carlisle.
--- NOTE | 2018-12-29 07:32 | NUR ---
RESPIRATORY NOTE: Patient received on mechanical ventilator PB 840 with current ordered vent settings. Patient has trach size 7.0 Portex cuffed that is secured with a trach tie and guard. There are coarse breath sounds noted upon auscultation and small amount of thick white secretions were suctioned via inline suction system without incident. There is an ambu bag available a the bedside and the vent is connected to a red outlet. Will continue to monitor.
[2018-12-29 08:00] VITALS: BP 116/69
--- NOTE | 2018-12-29 08:00 | NUR ---
NURSE NOTES: Patient asleep. Opens eyes. Trach-vent dependent. Portex 7 AC 18 VT 500 Fio2 30% Peep of 5. G tube - glucerna 1.5 at 50 cc/hr no residual tolerating well. R side colostomy. Suprapubic catheter intact. L upper arm PICC. Bed on lowest position, bed alarm on for safety, will continue to monitor patient.
--- NOTE | 2018-12-29 09:27 | NUR ---
RD ASSESSMENT & RECOMMENDATIONS SEE CARE ACTIVITY FOR COMPLETE ASSESSMENT DAILY ESTIMATED NEEDS: Needs based on critical care, wound/ 63kg 22-30 kcals/kg 3504-9588 total kcals 1.5-2 g protein/kg 94-126 g total protein 25-30 mL/kg 8265-0855 total fluid mLs NUTRITION DIAGNOSIS: 1) Increased kcal and protein needs r/t wound healing as evidenced by pt w/ multiple advanced wounds, including Unstageable wound at L earlobe. 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 3) Altered nutrition related lab values r/t clinical status as evidenced by hyperglycemia, now improved (POC 190 171 214), elev K (5.2, 5.7- now wnl), elev Na (148 -> wnl), elev BUN (26). CURRENT TF:Glucerna 1.5 @ 50ml/hr x 24 hrs + PS TID ENTERAL NUTRITION RECOMMENDATIONS: Glucerna 1.5 @ 45ml/hr x 24 hrs + Prosource 1pkt BID to provide 1080ml, 1620kcal, 89g + 22g prot, 820ml free water - DECREASE goal rate to 45ml/hr x 24 hrs -> meets 100% est kcal needs. - Add Prosource 1pkt BID for protein needs - Keep HOB >30degrees ADDITIONAL RECOMMENDATIONS: * REcalibrate bed scale wt for accurate CBW * Monitor K closely, need for TF change back to Nepro- h/o hyperkalemia * Wound care: add MITCHELL BID + Vit C 500mg QD * Monitor BGs closely: improved at this time, Rene added 12/28 . .
[2018-12-29] MEDS: metFORMIN 500mg tab GT SCH ×2 (09:46→17:14)
[2018-12-29] MEDS: Heparin 5000 units/ml inj SUBQ SCH ×2 (09:49→21:28)
[2018-12-29] MEDS: Levemir Flexpen SUBQ SCH ×2 (09:50→21:29)
--- NOTE | 2018-12-29 11:23 | GI Progress Note ---
Assessment/Plan Problems: (1) Colostomy care ICD Codes: Z43.3 - Encounter for attention to colostomy SNOMED: 337982359 (2) Anemia ICD Codes: D64.9 - Anemia, unspecified SNOMED: 498285379 (3) Feeding by G-tube ICD Codes: Z93.1 - Gastrostomy status SNOMED: 274019451, 861561791 (4) Abdominal wall cellulitis ICD Codes: L03.311 - Cellulitis of abdominal wall SNOMED: 71834809 (5) Acute pancreatitis ICD Codes: K85.90 - Acute pancreatitis without necrosis or infection, unspecified SNOMED: 936340265 (6) Pancreatitis ICD Codes: K85.90 - Acute pancreatitis without necrosis or infection, unspecified SNOMED: 32236634 Status: unchanged Status Narrative Discussed with Dr. Jackson Assessment/Plan Occult blood stool positive Hepatitis panel negative Pancreatitis secondary to hypertriglyceridemia Elevated CA 19 lipase still elevated >> check lipid panel with amlabs. Will order TriCor if levels are high. Stable H&H - PRN transfusions ppi daily lopid GTFs per RD tumor markers Trend lipase Supportive care The patient was seen and examined at bedside and all new and available data was reviewed in the patients chart. I agree with the above findings, impression and plan. (Patient seen earlier today. Signature stamp does not reflect patient encounter time.). - Benjamin Jackson MD Subjective Subjective Limited Objective Last 24 Hour Vital Signs Date Time Temp Pulse Resp B/P (MAP) Pulse Ox O2 Delivery O2 Flow Rate FiO2 12/29/18 10:30 105 26 30 12/29/18 09:15 107 25 30 12/29/18 08:00 30 12/29/18 08:00 Mechanical Ventilator 12/29/18 08:00 105 12/29/18 08:00 98.8 105 26 116/69 (85) 94 12/29/18 07:29 103 22 30 12/29/18 05:19 107 26 30 12/29/18 04:00 98.2 104 26 107/64 (78) 94 12/29/18 04:00 Mechanical Ventilator 12/29/18 04:00 30 12/29/18 03:30 106 26 30 12/29/18 03:25 103 12/29/18 01:30 104 25 30 3/28/19 00:00 98.6 96 29 125/75 (92) 96 12/29/18 00:00 Mechanical Ventilator 12/28/18 23:30 113 30 30 12/28/18 23:25 107 12/28/18 21:30 109 25 30 12/28/18 20:00 30 12/28/18 20:00 97.0 95 29 110/63 (79) 95 12/28/18 20:00 Mechanical Ventilator 12/28/18 19:30 102 24 30 12/28/18 19:28 102 12/28/18 17:10 80 28 30 12/28/18 16:00 97.9 97 25 112/65 (81) 94 12/28/18 16:00 30 12/28/18 16:00 Mechanical Ventilator 12/28/18 16:00 100 12/28/18 15:00 88 26 30 12/28/18 12:41 90 30 30 12/28/18 12:00 94 12/28/18 12:00 Mechanical Ventilator 12/28/18 12:00 30 12/28/18 12:00 98.2 97 26 107/72 (84) 94 Intake and Output 12/28/18 12/29/18 18:59 06:59 Intake Total 655 ml 1150 ml Output Total 100 ml 1700 ml Balance 555 ml -550 ml Intake Free Water 180 ml 450 ml IV Total 300 ml 300 ml Tube Feeding 175 ml 400 ml Output Urine Total 1000 ml Stool Total 100 ml 700 ml Laboratory Tests Test 12/29/18 03:15 White Blood Count 11.9 K/UL (4.8-10.8) H Red Blood Count 3.37 M/UL (4.70-6.10) L Hemoglobin 10.1 G/DL (14.2-18.0) L Hematocrit 30.7 % (42.0-52.0) L Mean Corpuscular Volume 91 FL (80-99) Mean Corpuscular Hemoglobin 30.1 PG (27.0-31.0) Mean Corpuscular Hemoglobin Concent 33.0 G/DL (32.0-36.0) Red Cell Distribution Width 15.3 % (11.6-14.8) H Platelet Count 235 K/UL (150-450) Mean Platelet Volume 9.5 FL (6.5-10.1) Neutrophils (%) (Auto) 78.3 % (45.0-75.0) H Lymphocytes (%) (Auto) 13.0 % (20.0-45.0) L Monocytes (%) (Auto) 3.4 % (1.0-10.0) Eosinophils (%) (Auto) 4.4 % (0.0-3.0) H Basophils (%) (Auto) 0.8 % (0.0-2.0) Sodium Level 136 MMOL/L (136-145) Potassium Level 4.9 MMOL/L (3.5-5.1) Chloride Level 105 MMOL/L (98-107) Carbon Dioxide Level 19 MMOL/L (21-32) L Anion Gap 12 mmol/L (5-15) Blood Urea Nitrogen 26 mg/dL (7-18) H Creatinine 0.7 MG/DL (0.55-1.30) Estimat Glomerular Filtration Rate mL/min (>60) Glucose Level 166 MG/DL (74-106) H Calcium Level 9.5 MG/DL (8.5-10.1) Phosphorus Level 2.6 MG/DL (2.5-4.9) Magnesium Level 1.9 MG/DL (1.8-2.4) Lipase 858 U/L (73-393) H Height (Feet): 5 Height (Inches): 8.00 Weight (Pounds): 145 General Appearance: WD/WN, no apparent distress, alert Cardiovascular: normal rate Respiratory/Chest: normal breath sounds, no respiratory distress, other - Mechanical ventilator Abdominal Exam: normal bowel sounds, non tender, soft, GT site - Clean dry and intact Extremities: non-tender Cirilo Germain NP Dec 29, 2018 11:23
--- NOTE | 2018-12-29 11:38 | Pulmonolgy Critical Care Note ---
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 Assessment/Plan: hemodynamically getting better Respiratory: monitor respiratory rate, adjust FIO2, CXR Cardiac: continue to monitor HR/BP Renal: F/U I&O Infectious Disease: check cultures, continue antibiotics Gastrointestinal: continue feedings/current rate Endocrine: monitor blood sugar Hematologic: transfuse if hgb<8.5 Neurologic: PRN Ativan, keep patient comfortable Affect: PRN ativan 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 Discussed with: nurses, consultants Critical Care - Objective Last 24 Hour Vital Signs Date Time Temp Pulse Resp B/P (MAP) Pulse Ox O2 Delivery O2 Flow Rate FiO2 12/29/18 10:30 105 26 30 12/29/18 09:15 107 25 30 12/29/18 08:00 30 12/29/18 08:00 Mechanical Ventilator 12/29/18 08:00 105 12/29/18 08:00 98.8 105 26 116/69 (85) 94 12/29/18 07:29 103 22 30 12/29/18 05:19 107 26 30 12/29/18 04:00 98.2 104 26 107/64 (78) 94 12/29/18 04:00 Mechanical Ventilator 12/29/18 04:00 30 12/29/18 03:30 106 26 30 12/29/18 03:25 103 12/29/18 01:30 104 25 30 12/29/18 00:00 98.6 96 29 125/75 (92) 96 12/29/18 00:00 Mechanical Ventilator 12/28/18 23:30 113 30 30 12/28/18 23:25 107 12/28/18 21:30 109 25 30 12/28/18 20:00 30 12/28/18 20:00 97.0 95 29 110/63 (79) 95 12/28/18 20:00 Mechanical Ventilator 12/28/18 19:30 102 24 30 12/28/18 19:28 102 12/28/18 17:10 80 28 30 12/28/18 16:00 97.9 97 25 112/65 (81) 94 12/28/18 16:00 30 12/28/18 16:00 Mechanical Ventilator 12/28/18 16:00 100 12/28/18 15:00 88 26 30 12/28/18 12:41 90 30 30 12/28/18 12:00 94 12/28/18 12:00 Mechanical Ventilator 12/28/18 12:00 30 12/28/18 12:00 98.2 97 26 107/72 (84) 94 Status: awake Condition: critical HEENT: atraumatic Heart: HR/BP stable Abdomen: soft, active bowel sounds Extremities: no C/C/E Decubiti: location Micro: Microbiology Date/Time Source Procedure Growth Status 12/28/18 04:30 Other(Specify in comment) Catheter Tip Culture - Preliminary NO GROWTH AFTER 24 HOURS Resulted Accucheck: 188 Critical Care - Subjective ROS Limited/Unobtainable: No Condition: critical EKG Rhythm: Sinus Rhythm FI02: 30 Vent Support Breath Rate: 18 Vent Support Mode: AC Vent Tidal Volume: 500 Sputum Amount: Scant PEEP: 5.0 PIP: 31 Tube Feeding Amount: 40 I&O: Intake and Output 12/28/18 12/29/18 18:59 06:59 Intake Total 655 ml 1150 ml Output Total 100 ml 1700 ml Balance 555 ml -550 ml Intake Free Water 180 ml 450 ml IV Total 300 ml 300 ml Tube Feeding 175 ml 400 ml Output Urine Total 1000 ml Stool Total 100 ml 700 ml CXR: not much change Labs: Laboratory Tests Test 12/29/18 03:15 White Blood Count 11.9 K/UL (4.8-10.8) H Red Blood Count 3.37 M/UL (4.70-6.10) L Hemoglobin 10.1 G/DL (14.2-18.0) L Hematocrit 30.7 % (42.0-52.0) L Mean Corpuscular Volume 91 FL (80-99) Mean Corpuscular Hemoglobin 30.1 PG (27.0-31.0) Mean Corpuscular Hemoglobin Concent 33.0 G/DL (32.0-36.0) Red Cell Distribution Width 15.3 % (11.6-14.8) H Platelet Count 235 K/UL (150-450) Mean Platelet Volume 9.5 FL (6.5-10.1) Neutrophils (%) (Auto) 78.3 % (45.0-75.0) H Lymphocytes (%) (Auto) 13.0 % (20.0-45.0) L Monocytes (%) (Auto) 3.4 % (1.0-10.0) Eosinophils (%) (Auto) 4.4 % (0.0-3.0) H Basophils (%) (Auto) 0.8 % (0.0-2.0) Sodium Level 136 MMOL/L (136-145) Potassium Level 4.9 MMOL/L (3.5-5.1) Chloride Level 105 MMOL/L (98-107) Carbon Dioxide Level 19 MMOL/L (21-32) L Anion Gap 12 mmol/L (5-15) Blood Urea Nitrogen 26 mg/dL (7-18) H Creatinine 0.7 MG/DL (0.55-1.30) Estimat Glomerular Filtration Rate mL/min (>60) Glucose Level 166 MG/DL (74-106) H Calcium Level 9.5 MG/DL (8.5-10.1) Phosphorus Level 2.6 MG/DL (2.5-4.9) Magnesium Level 1.9 MG/DL (1.8-2.4) Lipase 858 U/L (73-393) H Abhishek Guerra MD Dec 29, 2018 11:38
[2018-12-29 12:00] VITALS: BP 107/67
--- NOTE | 2018-12-29 12:00 | NUR ---
NURSE NOTES: VSS. Turned and repositioned. Transfer order obtained. Will continue plan of care.
--- NOTE | 2018-12-29 12:15 | Infectious Diseases Prog Note ---
Assessment/Plan Assessment/Plan Assessment: Gram positive bacteremia- PICC line infection -12/26 2d echo: no vegetations 12/23 SP -Removal of PICC line - -12/20 1/ E. fecalis (S Van, amp), 1/ MRSA. PICC line; Peripheral NTD; Bcx NTD; 12/23 NTD Septic shock , SP Severe Sepsis 2ry to GNR, sp Rx -12/24 CXR: Bilateral interstitial and airspace opacities, worse in the right upper lobe, slightly worse than prior study. -12/21 CXR: Bilateral interstitial and airspace opacities, associated bronchiectasis are again demonstrated. There is blunting of the left costophrenic sulcus again demonstrated. -12/17 CXR: No significant interval change in the diffuse patchy bilateral reticular interstitial and airspace opacities. -CXR: Probable small left pleural effusion, also evident on prior study 2017. Bilateral interstitial disease, unchanged, suspect chronic. Correlate with clinical findings -sp CX MDR PsA (S Gentamicin, AMikacin, Cefepime, Aztreonam, Tobramycin); repeats sp cx 12/20 MRSA; likely colonzier as vent settings stable GNR bacteremia, likely from UTI -CT abd/p: Findings consistent with uncomplicated nonnecrotizing acute pancreatitis. No evidence of associated peripancreatic abscess Surgical changes as described, including right lower quadrant ileostomy, subtotal colectomy with Haroldo procedure. Wall thickening of the Haroldo pouch. This could indicate inflammation. However, this is also present on both of the prior 2 exams and may be baseline for this patien. Evidence of mild anasarca, with edema of the subcutaneous fat. This is a new finding. Chronic appearing decubitus changes of the bilateral ischia. Correlate with clinical findings. Complete left lower lobe consolidation. This is similar to both of the prior CTs, andis likely a chronic finding. There is progressive chronic interstitial fibrotic change involving the right middle lobe. There is also right lower lobe granulomatous calcification, Extensive pulmonary parenchymal opacities bilaterally may reflect acute inflammation/infection, edema, progressive chronic scarring, orcombination of the above. These are considerably more extensive than on the prior study -u/a 10-15, nit neg, luek +3; ucx 50-60k Enterococcus (Vanco resist; S AMp), 40-50 K Proteus -/ Bcx 3/4 Proteus; 12/08 Bcx 1/4 Proteus (S Aztreonam; R Cipro, levo; I Imipenem); Acute pancreatitis -lipase ~1k Fever - recurrent- in the setting of bacteremia and pancreaitis; Leukocytosis , resolved--in the setting of bacteremia, UTI and acute pancreatitis CONS bacteremia- likely contaminant -12/12 Bcx 1/ CONS; 12/14 Bcx Neg MAULIK, improving dysphagia s/p peg COPD GBS quadriplegia chronic resp failure s/p trach HTN CVA, nonverbal anemia SNF resident Plan: -Continue Linezolid #06/17 for E. fecalis and MRSA bacteremia in the setting of vancomycin allergy -12/22 SP Aztreonam #14 -12/21 SP INH tobramycin #7 -12/16 SP IV Daptomycin #7 -f/u Repeat cultures -Monitor CBC/CMP, temperatures -PEG/Trach care -Aspiration precautions -management of acute pancreatitis per primary team. Subjective Allergies: Coded Allergies: PENICILLINS (Unverified Allergy, Unknown, 02/26/16) POLYMYXIN B (Unverified Allergy, Unknown, 02/26/16) VANCOMYCIN (Unverified Allergy, Unknown, 02/26/16) Subjective afebrile mild leukocytosis repeat Bcx Neg Objective Vital Signs Last 24 Hour Vital Signs Date Time Temp Pulse Resp B/P (MAP) Pulse Ox O2 Delivery O2 Flow Rate FiO2 12/29/18 12:00 Mechanical Ventilator 12/29/18 12:00 30 12/29/18 10:30 105 26 30 12/29/18 09:15 107 25 30 12/29/18 08:00 30 12/29/18 08:00 Mechanical Ventilator 12/29/18 08:00 105 12/29/18 08:00 98.8 105 26 116/69 (85) 94 12/29/18 07:29 103 22 30 12/29/18 05:19 107 26 30 12/29/18 04:00 98.2 104 26 107/64 (78) 94 12/29/18 04:00 Mechanical Ventilator 12/29/18 04:00 30 12/29/18 03:30 106 26 30 12/29/18 03:25 103 12/29/18 01:30 104 25 30 12/29/18 00:00 98.6 96 29 125/75 (92) 96 12/29/18 00:00 Mechanical Ventilator 12/28/18 23:30 113 30 30 12/28/18 23:25 107 12/28/18 21:30 109 25 30 12/28/18 20:00 30 12/28/18 20:00 97.0 95 29 110/63 (79) 95 12/28/18 20:00 Mechanical Ventilator 12/28/18 19:30 102 24 30 12/28/18 19:28 102 12/28/18 17:10 80 28 30 12/28/18 16:00 97.9 97 25 112/65 (81) 94 12/28/18 16:00 30 12/28/18 16:00 Mechanical Ventilator 12/28/18 16:00 100 12/28/18 15:00 88 26 30 12/28/18 12:41 90 30 30 Height (Feet): 5 Height (Inches): 8.00 Weight (Pounds): 145 Objective HEENT: Eyes were normal. ENT, mucous membranes were not dehydrated. NECK: Supple. There was no goiter. No mass. No lymphadenopathy. There was no JVD. No bruits. Carotid upstroke was 2+. LUNGS: Clear. HEART: PMI was in the fifth left intercostal space in midclavicular line. There was normal S1 and normal S2. There was no murmur. No arrhythmia. No S3. No S4. No pericardial rub. ABDOMEN: Soft and nontender without organomegaly. There were no masses palpable. Normal bowel sounds without bruits. There was no guarding. No rebound tenderness. No ascites. No hernia. No CVA tenderness. EXTREMITIES: No cyanosis, no clubbing, and no edema. Extremities were warm. Microbiology Date/Time Source Procedure Growth Status 12/28/18 04:30 Other(Specify in comment) Catheter Tip Culture - Preliminary NO GROWTH AFTER 24 HOURS Resulted Laboratory Tests Test 12/29/18 03:15 White Blood Count 11.9 K/UL (4.8-10.8) H Red Blood Count 3.37 M/UL (4.70-6.10) L Hemoglobin 10.1 G/DL (14.2-18.0) L Hematocrit 30.7 % (42.0-52.0) L Mean Corpuscular Volume 91 FL (80-99) Mean Corpuscular Hemoglobin 30.1 PG (27.0-31.0) Mean Corpuscular Hemoglobin Concent 33.0 G/DL (32.0-36.0) Red Cell Distribution Width 15.3 % (11.6-14.8) H Platelet Count 235 K/UL (150-450) Mean Platelet Volume 9.5 FL (6.5-10.1) Neutrophils (%) (Auto) 78.3 % (45.0-75.0) H Lymphocytes (%) (Auto) 13.0 % (20.0-45.0) L Monocytes (%) (Auto) 3.4 % (1.0-10.0) Eosinophils (%) (Auto) 4.4 % (0.0-3.0) H Basophils (%) (Auto) 0.8 % (0.0-2.0) Sodium Level 136 MMOL/L (136-145) Potassium Level 4.9 MMOL/L (3.5-5.1) Chloride Level 105 MMOL/L (98-107) Carbon Dioxide Level 19 MMOL/L (21-32) L Anion Gap 12 mmol/L (5-15) Blood Urea Nitrogen 26 mg/dL (7-18) H Creatinine 0.7 MG/DL (0.55-1.30) Estimat Glomerular Filtration Rate mL/min (>60) Glucose Level 166 MG/DL (74-106) H Calcium Level 9.5 MG/DL (8.5-10.1) Phosphorus Level 2.6 MG/DL (2.5-4.9) Magnesium Level 1.9 MG/DL (1.8-2.4) Lipase 858 U/L (73-393) H Current Medications Medications (Trade) Dose Ordered Sig/Fransisco Route PRN Reason Start Time Stop Time Status Last Admin Dose Admin Acetaminophen (Tylenol) 650 mg Q4H PRN GT For Pain 12/28/18 05:00 01/06/19 16:59 Albuterol/ Ipratropium (Albuterol/ Ipratropium) 3 ml Q4H PRN HHN Shortness of Breath 12/28/18 17:45 01/02/19 17:44 Calcitonin [place] (Miacalcin) 1 sprays DAILY NASAL 12/28/18 09:00 01/24/19 10:59 12/29/18 09:00 Chlorhexidine Gluconate (Sandra-Hex 2%) 1 applic DAILY@2000 TOPIC 12/28/18 20:00 01/09/19 19:59 12/28/18 20:54 Dextrose (Dextrose 50%) 25 ml Q30M PRN IV Hypoglycemia 12/28/18 05:00 01/09/19 13:59 Dextrose (Dextrose 50%) 50 ml Q30M PRN IV Hypoglycemia 12/28/18 05:00 01/09/19 13:59 Diltiazem HCl (Cardizem) 10 mg BIDPRN PRN IVP FOR HR >140 12/28/18 08:45 01/11/19 08:44 Gemfibrozil (Lopid) 600 mg TWICE A DAY GT 12/28/18 09:00 01/14/19 10:14 12/29/18 09:46 Heparin Sodium (Porcine) (Heparin 5000 units/ml) 5,000 units EVERY 12 HOURS SUBQ 12/28/18 09:00 01/06/19 20:59 12/29/18 09:49 Insulin Aspart (NovoLOG) EVERY 4 HOURS SUBQ 12/28/18 05:00 01/09/19 04:59 12/29/18 09:49 Insulin Detemir (Levemir) 10 units Q12HR SUBQ 12/28/18 14:00 01/27/19 13:59 12/29/18 09:50 Lansoprazole (Prevacid) 30 mg BID GT 12/28/18 09:00 01/16/19 08:59 12/29/18 09:46 Linezolid 300 ml @ 300 mls/hr Q12HR IVPB 12/28/18 09:00 01/01/19 08:59 12/29/18 09:45 Metformin HCl (Glucophage) 500 mg BID GT 12/28/18 09:00 01/22/19 17:59 12/29/18 09:46 Nateglinide (Starlix) 120 mg Q8HR ORAL 12/28/18 06:00 01/17/19 21:59 12/29/18 05:24 Nitroglycerin (Ntg) 0.4 mg Q5M PRN SL Prn Chest Pain 12/28/18 04:50 01/06/19 16:59 Ondansetron HCl (Zofran) 4 mg Q6H PRN IVP Nausea & Vomiting 12/28/18 05:00 01/06/19 16:59 Polyethylene Glycol (Miralax) 17 gm DAILYPRN PRN GT Constipation 12/28/18 09:45 01/06/19 16:59 Aminah Champagne M.D. Dec 29, 2018 12:15
--- NOTE | 2018-12-29 14:28 | Nephrology Progress Note ---
Assessment/Plan Problem List: (1) Hypercalcemia (2) ATN (acute tubular necrosis) (3) Anemia (4) Feeding by G-tube (5) Acute and chronic respiratory failure (6) UTI (urinary tract infection) (7) Hyponatremia Assessment to ICU for Hypotension doing poorly Patient have mainly Pre Renal Azotemia with possible underlying CKD- Low Na partly depletional, partly due to Hyperglycemia RESOLVED Other conditions as outlined: (1) Acute and chronic respiratory failure ([id number]) (2) Sepsis (3) Malnutrition and HypoAlbuminemia (4) UTI (urinary tract infection) (5) Anemia (6) Diabetes mellitus, type II (7) Colostomy care (8) Cerebral vascular disease (9) Decubitus ulcer of sacral region, stage 2 (10) Feeding by G-tube (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 Plan K & Phos supplement start Levemir and adjust dose Stop Digoxin stop Atenolol Stop Cardiazem Pressors as needed Albumin bolus AREDIA 90 mg for HYPERCALCEMIA on 12/23 - Fu Calcium level will redose Kayexelate for high K as needed On Starlix feeding to glucerna Keep electrolytes in check Keep BS and BP in check per consultants Subjective ROS Limited/Unobtainable: Yes Objective Objective Last 24 Hour Vital Signs Date Time Temp Pulse Resp B/P (MAP) Pulse Ox O2 Delivery O2 Flow Rate FiO2 12/29/18 12:53 102 22 30 12/29/18 12:00 98.8 106 26 107/67 (80) 95 12/29/18 12:00 Mechanical Ventilator 12/29/18 12:00 30 12/29/18 10:30 105 26 30 12/29/18 09:15 107 25 30 12/29/18 08:00 30 12/29/18 08:00 Mechanical Ventilator 12/29/18 08:00 105 12/29/18 08:00 98.8 105 26 116/69 (85) 94 12/29/18 07:29 103 22 30 12/29/18 05:19 107 26 30 12/29/18 04:00 98.2 104 26 107/64 (78) 94 12/29/18 04:00 Mechanical Ventilator 12/29/18 04:00 30 12/29/18 03:30 106 26 30 12/29/18 03:25 103 12/29/18 01:30 104 25 30 12/29/18 00:00 98.6 96 29 125/75 (92) 96 12/29/18 00:00 Mechanical Ventilator 12/28/18 23:30 113 30 30 12/28/18 23:25 107 12/28/18 21:30 109 25 30 12/28/18 20:00 30 12/28/18 20:00 97.0 95 29 110/63 (79) 95 12/28/18 20:00 Mechanical Ventilator 12/28/18 19:30 102 24 30 12/28/18 19:28 102 12/28/18 17:10 80 28 30 12/28/18 16:00 97.9 97 25 112/65 (81) 94 12/28/18 16:00 30 12/28/18 16:00 Mechanical Ventilator 12/28/18 16:00 100 12/28/18 15:00 88 26 30 Intake and Output 12/28/18 12/29/18 19:00 07:00 Intake Total 490 ml 1130 ml Output Total 100 ml 1700 ml Balance 390 ml -570 ml Intake Free Water 30 ml 450 ml IV Total 300 ml 300 ml Tube Feeding 160 ml 380 ml Output Urine Total 1000 ml Stool Total 100 ml 700 ml Laboratory Tests 12/29/18 03:15: White Blood Count 11.9H, Red Blood Count 3.37L, Hemoglobin 10.1L, Hematocrit 30.7L, Mean Corpuscular Volume 91, Mean Corpuscular Hemoglobin 30.1, Mean Corpuscular Hemoglobin Concent 33.0, Red Cell Distribution Width 15.3H, Platelet Count 235, Mean Platelet Volume 9.5, Neutrophils (%) (Auto) 78.3H, Lymphocytes (%) (Auto) 13.0L, Monocytes (%) (Auto) 3.4, Eosinophils (%) (Auto) 4.4H, Basophils (%) (Auto) 0.8, Sodium Level 136, Potassium Level 4.9, Chloride Level 105, Carbon Dioxide Level 19L, Anion Gap 12, Blood Urea Nitrogen 26H, Creatinine 0.7, Estimat Glomerular Filtration Rate , Glucose Level 166H, Calcium Level 9.5, Phosphorus Level 2.6, Magnesium Level 1.9, Lipase 858H Height (Feet): 5 Height (Inches): 8.00 Weight (Pounds): 145 General Appearance: no apparent distress EENT: other - trach Cardiovascular: tachycardia Respiratory/Chest: decreased breath sounds Abdomen: distended Objective no change Migue Mroeland MD Dec 29, 2018 14:28
--- NOTE | 2018-12-29 15:00 | Surgery Progress Note ---
Surgery Progress Note Subjective Additional Comments leukocytosis; lipase trending up again. otherwise unchanged. ill appearing. on trach support Objective Last 24 Hour Vital Signs Date Time Temp Pulse Resp B/P (MAP) Pulse Ox O2 Delivery O2 Flow Rate FiO2 12/29/18 14:39 108 22 30 12/29/18 12:53 102 22 30 12/29/18 12:00 98.8 106 26 107/67 (80) 95 12/29/18 12:00 Mechanical Ventilator 12/29/18 12:00 30 12/29/18 11:49 107 12/29/18 10:30 105 26 30 12/29/18 09:15 107 25 30 12/29/18 08:00 30 12/29/18 08:00 Mechanical Ventilator 12/29/18 08:00 105 12/29/18 08:00 98.8 105 26 116/69 (85) 94 12/29/18 07:29 103 22 30 12/29/18 05:19 107 26 30 12/29/18 04:00 98.2 104 26 107/64 (78) 94 12/29/18 04:00 Mechanical Ventilator 12/29/18 04:00 30 12/29/18 03:30 106 26 30 12/29/18 03:25 103 12/29/18 01:30 104 25 30 12/29/18 00:00 98.6 96 29 125/75 (92) 96 12/29/18 00:00 Mechanical Ventilator 12/28/18 23:30 113 30 30 12/28/18 23:25 107 12/28/18 21:30 109 25 30 12/28/18 20:00 30 12/28/18 20:00 97.0 95 29 110/63 (79) 95 12/28/18 20:00 Mechanical Ventilator 12/28/18 19:30 102 24 30 12/28/18 19:28 102 12/28/18 17:10 80 28 30 12/28/18 16:00 97.9 97 25 112/65 (81) 94 12/28/18 16:00 30 12/28/18 16:00 Mechanical Ventilator 12/28/18 16:00 100 12/28/18 15:00 88 26 30 I&O Intake and Output 12/28/18 12/29/18 19:00 07:00 Intake Total 490 ml 1130 ml Output Total 100 ml 1700 ml Balance 390 ml -570 ml Intake Free Water 30 ml 450 ml IV Total 300 ml 300 ml Tube Feeding 160 ml 380 ml Output Urine Total 1000 ml Stool Total 100 ml 700 ml Dressing: saturated Wound: other Drains: other Cardiovascular: RSR Respiratory: decreased breath sounds Abdomen: soft, present bowel sounds, non-distended Extremities: other Laboratory Tests Test 12/29/18 03:15 White Blood Count 11.9 K/UL (4.8-10.8) H Red Blood Count 3.37 M/UL (4.70-6.10) L Hemoglobin 10.1 G/DL (14.2-18.0) L Hematocrit 30.7 % (42.0-52.0) L Mean Corpuscular Volume 91 FL (80-99) Mean Corpuscular Hemoglobin 30.1 PG (27.0-31.0) Mean Corpuscular Hemoglobin Concent 33.0 G/DL (32.0-36.0) Red Cell Distribution Width 15.3 % (11.6-14.8) H Platelet Count 235 K/UL (150-450) Mean Platelet Volume 9.5 FL (6.5-10.1) Neutrophils (%) (Auto) 78.3 % (45.0-75.0) H Lymphocytes (%) (Auto) 13.0 % (20.0-45.0) L Monocytes (%) (Auto) 3.4 % (1.0-10.0) Eosinophils (%) (Auto) 4.4 % (0.0-3.0) H Basophils (%) (Auto) 0.8 % (0.0-2.0) Sodium Level 136 MMOL/L (136-145) Potassium Level 4.9 MMOL/L (3.5-5.1) Chloride Level 105 MMOL/L (98-107) Carbon Dioxide Level 19 MMOL/L (21-32) L Anion Gap 12 mmol/L (5-15) Blood Urea Nitrogen 26 mg/dL (7-18) H Creatinine 0.7 MG/DL (0.55-1.30) Estimat Glomerular Filtration Rate mL/min (>60) Glucose Level 166 MG/DL (74-106) H Calcium Level 9.5 MG/DL (8.5-10.1) Phosphorus Level 2.6 MG/DL (2.5-4.9) Magnesium Level 1.9 MG/DL (1.8-2.4) Lipase 858 U/L (73-393) H Plan Problems: (1) Decubitus skin ulcer Assessment & Plan: Pt presented on admission with multiple pressure injuries and Skin erosion. Pt has trach and no evidence of skin breakdown noted under trach collar. Unstageable pressure injury noted to L earlobe. Stable dry brown eschar noted(L) 0.7cm x (W)0.5cm. Gross erythema with denudement and multiple scattered partial thickness wounds noted to buttocks and base of scrotum extending into both posterior upper thighs.Moderate amt sanguineous exudate noted upon removal of drsgs. 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 Moderate amt sanguineous exudate noted (L)3cm x (W)1cm x (D)7.4cm.Erythema periwound secondary to skin erosions. Partially opened DTPI L ischium .Base of wound purple,fluctuant with red borders.Open areas at base of this wound are beefy red in colour.Moderate amt sanguineous exudate noted.(L)7cm x (W)6.8cm. DTPI R ischium.Wound is fluctuant-purple in center with surrounding Maroon colour, and is partially opened with a small area of 5% that is necrotic.(L) 6.5cm x (W)5.5cm. Red skin erosion periwound. Partial thickness pressure injury L hip. Base of wound is moist -viable. Edges adherent and dry. Periwound without erythema or induration(L)1.2cm x (W)0.5cm. Elongate partial thickness wound posterior upper L thigh .Base of wound is moist -viable .Small amt sanguineous exudate noted. (+) maceration along borders. Erythema without induration or elevation in skin temp noted.(L)2cm x (W )9.4cm. DTPI noted to R heel .Base of injury is indurated and maroon in colour. Periwound is firm without erythema. (L)1.5cm x (W)1cm.R heel without evidence of skin breakdown. Tx.Plan: Cleanse Sacrum with Saline. Loosely pack with Hydrogel impregnated Kerlix. Apply Triad Paste periwound. Cover with ABD pad. Daily and prn. Cleanse R and L ischial wounds with Saline. Apply Moisture Barrier Paste.Cover with abd pads Daily and prn. Apply Moisture Barrier to skin erosions on buttocks,scrotum, and posterior aspects of both thighs.Cover with ABD pad daily and prn. Cleanse wound L hip with Saline. Apply Moisture Barrier paste .Cover with Optifoam drsg Daily and prn. Cleanse wound posterior upper L thigh with saline .Apply Hydrogel. Cover with Optifoam drsg Daily and prn. Apply Cavilon Skin Barrier to L earlobe daily. Please monitor. Apply Cavilon Skin Barrier to L heel. Cover with Optifoam drsg. Change every 7 days and prn. Apply Cavilon Skin Barrier to R heel. Cover with Optifoam drsg .Change every 7 days and prn. Air fluidized mattress. Reposition every 2hours or as tolerated. Off-load heels with pillow. (2) Acute and chronic respiratory failure Assessment & Plan: cont with breathing treatments trach stable trach site clean will change dressings daily (3) Acute pancreatitis Assessment & Plan: Findings consistent with uncomplicated nonnecrotizing acute pancreatitis. No evidence of associated peripancreatic abscess Surgical changes as described, including right lower quadrant ileostomy, subtotal colectomy with Haroldo procedure. Wall thickening of the Haroldo pouch. This could indicate inflammation. However, this is also present on both of the prior 2 exams and may be baseline for this patient Evidence of mild anasarca, with edema of the subcutaneous fat. This is a new finding Chronic appearing decubitus changes of the bilateral ischia. Correlate with clinical findings Complete left lower lobe consolidation. This is similar to both of the prior CTs , and is likely a chronic finding. There is progressive chronic interstitial fibrotic change involving the right middle lobe. There is also right lower lobe granulomatous calcification Extensive pulmonary parenchymal opacities bilaterally may reflect acute inflammation/infection, edema, progressive chronic scarring, or combination of the above. These are considerably more extensive than on the prior study Trace bilateral pleural fluid New finding of nonobstructive right renal collecting system calculs 4 mm calculus within the bladder lumen. This may represent a bladder calculus, a calculus and left ureteral orifice, or recently passed stone. If either of the latter, no evidence of resultant hydronephrosis or hydroureter Suprapubic catheter. This is a new finding since the 2016 exams. Interim removal of previously demonstrated Bledsoe catheter Gastrostomy Left renal cysts. Subcentimeter low-attenuation right renal lesions, too small to characterize, most likely benign simple cysts. No further follow-up necessary elevated amylase/lipase trending down leukocytosis GNR Bacteremia transfused anemia Unfortunately patient not able to participate in exam and difficult to identify if clinically pancreatitis or just laboratory data. Recent CT with uncomplicated pancreatitis but enzymes still remain elevated. Patient tolerated tube feeds. Patient with gram-negative belle bacteremia likely from UTI. Patient remains febrile intermittently with worsening leukocytosis on IV antibiotics. -no acute surgical intervention planned -transfuse as per hematology -Abx as per ID -trend lip/[place] - recent finding based on CT given patient cannot given history or participate in exam. CT with uncomplicated pancreatitis. repeat CT A/P okay for diet / feeds for now. IV fluids Javier Ricardo Dec 29, 2018 15:00
--- NOTE | 2018-12-29 15:54 | General Progress Note ---
Assessment/Plan Assessment/Plan Assessment/Recs: # Leukocytosis/Elevated white blood cell count,potentially due to infection with gram negative bacteremia, with uti and on abx --> have reviewed peripheral smear and bandemia/neutrophilia noted on initial smear was noted --> continue antibiotics if they have been started by ID team, titrate as needed --> monitor for resolution ---> WBC trend: 11-->16-->15-->14-->11-->12-->10.8-->11-->12-->11 # Anemia of chronic disease due to underlying chronic medical issues, multifactorial --> Anemia workup has been reviewed, Ferritin [id number] --> No evidence of hemolysis is noted, peripheral smear has been reviewed. --> Hgb goal >7. Transfuse prn. --> Epogen or iron at this time is not particularly indicated --> Medications have been reviewed --> HGB trend: 7.8-->7.6-->6.2-->6.4->7.1-->8.7-->9.1-->8.4-->7.8-->9.4-->7.3--> 10.6-->10.1 --> received prbc 12/25 # Thrombocytopenia - potential causes multifactorial, evaluate liver and viral etiologies to begin, also could be related to underlying medications --> Hep panel and HIV negative --> US abd to evaluate for cirrhosis and hsm reviewed --> Peripheral smear ordered to evaluate for blasts/schistocytes does not reveal any --> abx and other meds have been reviewed --> ok for ppx if plt >50k w/ either heparin or lovenox # Hypercalcemia potentailly related to dehydration --> s/p aredia as per renal --> pth reviewed # Severe prerenal azotemia, on ivf --> improve po oral intake and consider appetite stimulant # Severe Sepsis, CXR: Probable small left pleural effusion, also evident on prior study 11/22/2017 --> appreciate ID recs # Bacteremia, likely from UTI, PNA --> tolerating abx well --> as per pulm The timing of this note does not necessarily reflect the time of the patient was seen. Greatly appreciate consultation! Subjective HEENT: Denies: no symptoms, eye pain, blurred vision, tearing, double vision, ear pain, ear discharge, nose pain, nose congestion, throat pain, throat swelling, mouth pain, mouth swelling, other Cardiovascular: Denies: no symptoms, chest pain, edema, irregular heart rate, lightheadedness, palpitations, syncope, other Respiratory: Denies: no symptoms, cough, orthopnea, shortness of breath, SOB with excertion, SOB at rest, sputum, stridor, wheezing, other Gastrointestinal/Abdominal: Denies: no symptoms, abdomen distended, abdominal pain, black stools, tarry stools, blood in stool, constipated, diarrhea, difficulty swallowing, nausea, poor appetite, poor fluid intake, rectal bleeding , vomiting, other Genitourinary: Denies: no symptoms, burning, discharge, frequency, flank pain, hematuria, incontinence, pain, urgency, other Neurologic/Psychiatric: Denies: no symptoms, anxiety, depressed, emotional problems, headache, numbness, paresthesia, pre-existing deficit, seizure, tingling, tremors, weakness, other Endocrine: Denies: no symptoms, excessive sweating, flushing, intolerance to cold, intolerance to heat, increased hunger, increased thirst, increased urine, unexplained weight gain, unexplained weight loss, other Allergies: Coded Allergies: PENICILLINS (Unverified Allergy, Unknown, 02/26/16) POLYMYXIN B (Unverified Allergy, Unknown, 02/26/16) VANCOMYCIN (Unverified Allergy, Unknown, 02/26/16) Subjective 12/11: seen by bedside, vent dependent, leukocytosis, 11, hgb 7, will transfuse, no events 12/12: awake, comfortable wbc trending up at 16, no events 12/13: hgb 6.4, receiving transfusion, , wbc remains elevated. no acute events 12/14: seen by bedside, awake, comfortable low grade fever, wbc remains elevated at 15, bacteremia on IV Abx, hgb 7.1, will transfuse as needed 12/15: Wbc remains elevated, no events reported, hgb trending up 12/16: seen by bedside, awake, comfortable, no events 12/18: seen in the room, on vent and trach, no events 12/19: reviewed cbc and appears relatively stable, on starlix, remains in sdu 3: seen by bedside, on vent, mild leukocytosis 12/21: Pt is resting , on vent, wbc trending up , no events 12/22: exam is essentially unchanged, on abx, have discussed with pcp, rn, wbc better 12/23: transfuse wbc 11, on abx 12/24: no events to report, on vent/trach care, without issue 12/26: in icu, resting comfortanly, off pressors 12/27: tolerating feeding and vent well, no issues, ca reviewed 12/28: no events, remains nonverbal, without complaints 12/29: no events, on vent/trach, nonverbal, no fevers Objective Last 24 Hour Vital Signs Date Time Temp Pulse Resp B/P (MAP) Pulse Ox O2 Delivery O2 Flow Rate FiO2 12/29/18 14:39 108 22 30 12/29/18 12:53 102 22 30 12/29/18 12:00 98.8 106 26 107/67 (80) 95 12/29/18 12:00 Mechanical Ventilator 12/29/18 12:00 30 12/29/18 11:49 107 12/29/18 10:30 105 26 30 12/29/18 09:15 107 25 30 12/29/18 08:00 30 12/29/18 08:00 Mechanical Ventilator 12/29/18 08:00 105 12/29/18 08:00 98.8 105 26 116/69 (85) 94 12/29/18 07:29 103 22 30 12/29/18 05:19 107 26 30 12/29/18 04:00 98.2 104 26 107/64 (78) 94 12/29/18 04:00 Mechanical Ventilator 12/29/18 04:00 30 12/29/18 03:30 106 26 30 12/29/18 03:25 103 12/29/18 01:30 104 25 30 12/29/18 00:00 98.6 96 29 125/75 (92) 96 12/29/18 00:00 Mechanical Ventilator 12/28/18 23:30 113 30 30 12/28/18 23:25 107 12/28/18 21:30 109 25 30 12/28/18 20:00 30 12/28/18 20:00 97.0 95 29 110/63 (79) 95 12/28/18 20:00 Mechanical Ventilator 12/28/18 19:30 102 24 30 12/28/18 19:28 102 12/28/18 17:10 80 28 30 12/28/18 16:00 97.9 97 25 112/65 (81) 94 12/28/18 16:00 30 12/28/18 16:00 Mechanical Ventilator 12/28/18 16:00 100 Intake and Output 12/28/18 12/29/18 19:00 07:00 Intake Total 490 ml 1130 ml Output Total 100 ml 1700 ml Balance 390 ml -570 ml Intake Free Water 30 ml 450 ml IV Total 300 ml 300 ml Tube Feeding 160 ml 380 ml Output Urine Total 1000 ml Stool Total 100 ml 700 ml Laboratory Tests 12/29/18 03:15: White Blood Count 11.9H, Red Blood Count 3.37L, Hemoglobin 10.1L, Hematocrit 30.7L, Mean Corpuscular Volume 91, Mean Corpuscular Hemoglobin 30.1, Mean Corpuscular Hemoglobin Concent 33.0, Red Cell Distribution Width 15.3H, Platelet Count 235, Mean Platelet Volume 9.5, Neutrophils (%) (Auto) 78.3H, Lymphocytes (%) (Auto) 13.0L, Monocytes (%) (Auto) 3.4, Eosinophils (%) (Auto) 4.4H, Basophils (%) (Auto) 0.8, Sodium Level 136, Potassium Level 4.9, Chloride Level 105, Carbon Dioxide Level 19L, Anion Gap 12, Blood Urea Nitrogen 26H, Creatinine 0.7, Estimat Glomerular Filtration Rate , Glucose Level 166H, Calcium Level 9.5, Phosphorus Level 2.6, Magnesium Level 1.9, Triglycerides Level [Pending], Lipase 858H Height (Feet): 5 Height (Inches): 8.00 Weight (Pounds): 145 Objective HEENT: Eyes were normal. ENT, mucous membranes were not dehydrated. NECK: Supple. There was no goiter. No mass. No lad LUNGS: Clear. Vent++/trach HEART: PMI was in the fifth left intercostal space in midclavicular line. There was normal S1 and normal S2. There was no murmur. no s3/s4 ABDOMEN: Soft and nontender without organomegaly. There were no masses palpable. Normal bowel sounds without bruits. There was no guarding. No rebound tenderness. No ascites. No hernia. No CVA tenderness. Liver span was 8 cm, mostly nontender. EXTREMITIES: No cyanosis, no clubbing, and no edema. Extremities warm. Adarsh Kim MD Dec 29, 2018 15:54
[2018-12-29 16:00] VITALS: BP 110/70
--- NOTE | 2018-12-29 16:00 | NUR ---
NURSE NOTES: VSS. No distress noted. No changes in patient condition. Turned and repositioned. Family at bedside. Will continue plan of care.
--- NOTE | 2018-12-29 17:19 | Diagnostic Imaging Report ---
Indication: Dyspnea Comparison: 12/24/2018 A single view chest radiograph was obtained. Findings: There is evidence of mild interstitial edema. This is superimposed on other interstitial densities likely fibrosis most predominant within the right upper lobe. Cardiomegaly appears to be present. There is blunting of the left costophrenic angle. There is a hazy opacity at the right lung base as well obscuring the right hemidiaphragm. Tracheostomy again noted. IMPRESSION: Suspected slightly worsening CHF superimposed on chronic lung disease. Suspect a small bilateral pleural effusions.
--- NOTE | 2018-12-29 19:15 | NUR ---
NURSE NOTES: Received patient from SHAKIR KEY. Patient is awake, alert and oriented x1. Patient able to make eye contact. On trach Portex 7, to vent with settings of AC:18, TV:500, FiO2:30%, PEEP:5 and showing no signs and symptoms of pain and/or distress. Will continue plan of care.
[2018-12-29 20:00] VITALS: BP 94/65
--- NOTE | 2018-12-29 21:00 | Cardiology Progress Note ---
Assessment/Plan Assessment/Plan 1. Supraventricular tachycardia. recurrent 12/09 and 12/10 2. Renal insufficiency. 3. Hyponatremia. 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 6. History of bowel resection. 7. History of CVA. 8. Chronic tracheostomy. 9. Diabetes mellitus. 10 pancreatitis 11. anemai off Cardizem via gtube and dig and atenolol no furtehr svt heart rate stable tele looks ok Subjective ROS Limited/Unobtainable: Yes Subjective on the vent Objective Last 24 Hour Vital Signs Date Time Temp Pulse Resp B/P (MAP) Pulse Ox O2 Delivery O2 Flow Rate FiO2 12/29/18 20:00 98.1 117 22 94/65 (75) 99 12/29/18 20:00 Mechanical Ventilator 12/29/18 20:00 30 12/29/18 19:04 114 22 30 12/29/18 17:02 111 25 30 12/29/18 16:00 30 12/29/18 16:00 97.9 107 26 110/70 (83) 93 12/29/18 16:00 102 12/29/18 16:00 Mechanical Ventilator 12/29/18 14:39 108 22 30 12/29/18 12:53 102 22 30 12/29/18 12:00 98.8 106 26 107/67 (80) 95 12/29/18 12:00 Mechanical Ventilator 12/29/18 12:00 30 12/29/18 11:49 107 12/29/18 10:30 105 26 30 12/29/18 09:15 107 25 30 12/29/18 08:00 30 12/29/18 08:00 Mechanical Ventilator 12/29/18 08:00 105 12/29/18 08:00 98.8 105 26 116/69 (85) 94 12/29/18 07:29 103 22 30 12/29/18 05:19 107 26 30 12/29/18 04:00 98.2 104 26 107/64 (78) 94 12/29/18 04:00 Mechanical Ventilator 12/29/18 04:00 30 12/29/18 03:30 106 26 30 12/29/18 03:25 103 12/29/18 01:30 104 25 30 12/29/18 00:00 98.6 96 29 125/75 (92) 96 12/29/18 00:00 Mechanical Ventilator 12/28/18 23:30 113 30 30 12/28/18 23:25 107 12/28/18 21:30 109 25 30 General Appearance: on vent, patient on isolation Intake and Output 12/28/18 12/29/18 19:00 07:00 Intake Total 490 ml 1130 ml Output Total 100 ml 1700 ml Balance 390 ml -570 ml Intake Free Water 30 ml 450 ml IV Total 300 ml 300 ml Tube Feeding 160 ml 380 ml Output Urine Total 1000 ml Stool Total 100 ml 700 ml Laboratory Tests Test 12/29/18 03:15 White Blood Count 11.9 K/UL (4.8-10.8) H Red Blood Count 3.37 M/UL (4.70-6.10) L Hemoglobin 10.1 G/DL (14.2-18.0) L Hematocrit 30.7 % (42.0-52.0) L Mean Corpuscular Volume 91 FL (80-99) Mean Corpuscular Hemoglobin 30.1 PG (27.0-31.0) Mean Corpuscular Hemoglobin Concent 33.0 G/DL (32.0-36.0) Red Cell Distribution Width 15.3 % (11.6-14.8) H Platelet Count 235 K/UL (150-450) Mean Platelet Volume 9.5 FL (6.5-10.1) Neutrophils (%) (Auto) 78.3 % (45.0-75.0) H Lymphocytes (%) (Auto) 13.0 % (20.0-45.0) L Monocytes (%) (Auto) 3.4 % (1.0-10.0) Eosinophils (%) (Auto) 4.4 % (0.0-3.0) H Basophils (%) (Auto) 0.8 % (0.0-2.0) Sodium Level 136 MMOL/L (136-145) Potassium Level 4.9 MMOL/L (3.5-5.1) Chloride Level 105 MMOL/L (98-107) Carbon Dioxide Level 19 MMOL/L (21-32) L Anion Gap 12 mmol/L (5-15) Blood Urea Nitrogen 26 mg/dL (7-18) H Creatinine 0.7 MG/DL (0.55-1.30) Estimat Glomerular Filtration Rate mL/min (>60) Glucose Level 166 MG/DL (74-106) H Calcium Level 9.5 MG/DL (8.5-10.1) Phosphorus Level 2.6 MG/DL (2.5-4.9) Magnesium Level 1.9 MG/DL (1.8-2.4) Triglycerides Level 384 MG/DL (30-150) H Lipase 858 U/L (73-393) H Microbiology Date/Time Source Procedure Growth Status 12/28/18 04:30 Other(Specify in comment) Catheter Tip Culture - Preliminary NO GROWTH AFTER 24 HOURS Resulted Donny Kelley MD Dec 29, 2018 21:00
[2018-12-29] MEDS: Dyna-Hex 2% Top Sol 2oz TOPIC SCH (21:39)
[2018-12-30] VITALS: BP 104/64
[2018-12-30] MEDS: NovoLOG Insulin Flexpen SUBQ SCH ×6 (00:16→20:44)
[2018-12-30 04:00] VITALS: BP 104/64
--- NOTE | 2018-12-30 04:45 | Progress Note ---
DATE: 12/29/2018 SUBJECTIVE: The patient is afebrile, hemodynamically stable, but remained persistently tachycardic. PHYSICAL EXAMINATION: VITAL SIGNS: Blood pressure is 104/64, pulse , respirations were 21, and temperature 100. HEART: Normal sounds with regular beats. ABDOMEN: Soft and nontender with normal bowel sounds. EXTREMITIES: Warm without cyanosis, clubbing, or edema. LABORATORY DATA: Hemoglobin is 10.1, hematocrit 30.7, MCV of 93, WBC of 11.9. BUN and creatinine 26 and 0.7 respectively. His sodium is 136, potassium 4.9, chloride 105, CO2 is 19. IMPRESSION: The patient will continue on . The patient is now hemodynamically stable. He has no more leukocytosis. Chest x-ray done today revealed no significant change from previous report, which was taken 12/27/2018. He is stable, afebrile, and hemodynamically stable but did not return to the same condition that he based on this admission. Neema Hutchins M.D. DR: RUPINDER JOB#: [id number] CC:
[2018-12-30 05:32] LABS: BASOPHILS % (AUTO) 0.7 % (0.0-2.0); EOSINOPHILS % (AUTO) 3.8 % (0.0-3.0); HEMATOCRIT 32.7 % (42.0-52.0); HEMOGLOBIN 11.2 G/DL (14.2-18.0); LYMPHOCYTES % (AUTO) 10.9 % (20.0-45.0); MEAN CORPUSCULAR VOLUME 90 FL (80-99); MONOCYTES % (AUTO) 3.6 % (1.0-10.0); NEUTROPHILS % (AUTO) 81.1 % (45.0-75.0); PLATELET COUNT 267 K/UL (150-450); RED BLOOD COUNT 3.63 M/UL (4.70-6.10); RED CELL DISTRIBUTION WIDTH 15.1 % (11.6-14.8); WHITE BLOOD COUNT 15.8 K/UL (4.8-10.8)
[2018-12-30 05:55] LABS: ANION GAP 12 mmol/L (5-15); BLOOD UREA NITROGEN 28 mg/dL (7-18); CALCIUM 9.8 MG/DL (8.5-10.1); CARBON DIOXIDE 21 MMOL/L (21-32); CHLORIDE 101 MMOL/L (98-107); CHOLESTEROL 118 MG/DL (< 200); CREATININE 0.8 MG/DL (0.55-1.30); HDL CHOLESTEROL 24 MG/DL (40-60); POTASSIUM 5.7 MMOL/L (3.5-5.1); SODIUM 134 MMOL/L (136-145); TRIGLYCERIDES 457 MG/DL (30-150)
--- NOTE | 2018-12-30 07:15 | NUR ---
HAND-OFF: Report given to SHAKIR GONZALES.
--- NOTE | 2018-12-30 07:16 | NUR ---
NURSE NOTES: Received patient from SHAKIR Smith. Patient VS stable at this time with no sign of acute distress. Patient sleeping at this time. Patient showing sinus tachycardia on the environmental monitoring specialist with rate in the 120's. Doctor is aware. Patient on trach to ventilator with setting of AC 18, TV 500, FiO2 30%, and PEEP 5. Patient tolerating ventilator setting with oxygen saturation of 98% at this time. Patient NPO at this time for CT abdomen without contrast. Patient has a G tube that is patent and intact. Patient has a right lower quadrant colostomy that is patent and asymptomatic at this time. Patient has a suprapubic catheter that is patent and asymptomatic at this time. Patient has a sacral stage 4 pressure ulcer. Will turn patient every 2 hours and as needed to prevent further skin breakdown. Patient has a left upper arm PICC that is patent, asymptomatic, and saline locked at this time. Patient has a potassium of 5.[address] Will notify Dr Moreland at this time. Patient bed in low position with bed alarm on and call light in reach at this time.
[2018-12-30 08:00] VITALS: BP 107/64
[2018-12-30] MEDS: metFORMIN 500mg tab GT SCH (08:37)
[2018-12-30] MEDS: Levemir Flexpen SUBQ SCH ×2 (08:43→20:43)
[2018-12-30] MEDS: Heparin 5000 units/ml inj SUBQ SCH ×2 (08:43→20:42)
[2018-12-30] MEDS ORDERED: Sodium Polystyrene Sulfonate 15gm Powder ORAL SCH (09:15)
--- NOTE | 2018-12-30 11:06 | Pulmonolgy Critical Care Note ---
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 - Objective Last 24 Hour Vital Signs Date Time Temp Pulse Resp B/P (MAP) Pulse Ox O2 Delivery O2 Flow Rate FiO2 12/30/18 10:57 115 25 30 12/30/18 09:00 114 22 30 12/30/18 08:00 30 12/30/18 08:00 Mechanical Ventilator 12/30/18 08:00 97.9 122 27 107/64 (78) 90 12/30/18 07:55 121 12/30/18 07:19 121 25 30 12/30/18 05:05 119 25 30 12/30/18 04:00 97.8 119 27 104/64 (77) 96 12/30/18 04:00 30 12/30/18 04:00 Mechanical Ventilator 12/30/18 03:32 118 12/30/18 03:25 120 29 30 12/30/18 01:19 116 25 30 12/30/18 00:00 97.9 121 26 104/64 (77) 99 12/30/18 00:00 Mechanical Ventilator 12/30/18 00:00 30 12/29/18 23:35 119 12/29/18 23:10 115 23 30 12/29/18 21:20 113 28 30 12/29/18 20:00 98.1 117 22 94/65 (75) 99 12/29/18 20:00 Mechanical Ventilator 12/29/18 20:00 30 12/29/18 19:10 118 12/29/18 19:04 114 22 30 12/29/18 17:02 111 25 30 12/29/18 16:00 30 12/29/18 16:00 97.9 107 26 110/70 (83) 93 12/29/18 16:00 102 12/29/18 16:00 Mechanical Ventilator 12/29/18 14:39 108 22 30 12/29/18 12:53 102 22 30 12/29/18 12:00 98.8 106 26 107/67 (80) 95 12/29/18 12:00 Mechanical Ventilator 12/29/18 12:00 30 12/29/18 11:49 107 Status: awake Condition: critical HEENT: atraumatic Lungs: clear Heart: HR/BP stable, regular Abdomen: non-tender, active bowel sounds Extremities: no C/C/E, edema Micro: Microbiology Date/Time Source Procedure Growth Status 12/28/18 04:30 Other(Specify in comment) Catheter Tip Culture - Preliminary NO GROWTH AFTER 48 HOURS Resulted Accucheck: 141 Critical Care - Subjective ROS Limited/Unobtainable: No Condition: critical EKG Rhythm: Sinus Rhythm FI02: 30 Vent Support Breath Rate: 18 Vent Support Mode: AC Vent Tidal Volume: 500 Sputum Amount: Scant PEEP: 5.0 PIP: 37 Tube Feeding Amount: 50 I&O: Intake and Output 12/29/18 12/30/18 18:59 06:59 Intake Total 1300 ml 900 ml Output Total 2800 ml 840 ml Balance -1500 ml 60 ml Intake Free Water 450 ml 100 ml IV Total 300 ml 300 ml Tube Feeding 550 ml 300 ml Other 200 ml Output Urine Total 1750 ml 390 ml Stool Total 1050 ml 450 ml CXR: no change Labs: Laboratory Tests Test 12/30/18 03:15 White Blood Count 15.8 K/UL (4.8-10.8) H Red Blood Count 3.63 M/UL (4.70-6.10) L Hemoglobin 11.2 G/DL (14.2-18.0) L Hematocrit 32.7 % (42.0-52.0) L Mean Corpuscular Volume 90 FL (80-99) Mean Corpuscular Hemoglobin 30.9 PG (27.0-31.0) Mean Corpuscular Hemoglobin Concent 34.2 G/DL (32.0-36.0) Red Cell Distribution Width 15.1 % (11.6-14.8) H Platelet Count 267 K/UL (150-450) Mean Platelet Volume 8.3 FL (6.5-10.1) Neutrophils (%) (Auto) 81.1 % (45.0-75.0) H Lymphocytes (%) (Auto) 10.9 % (20.0-45.0) L Monocytes (%) (Auto) 3.6 % (1.0-10.0) Eosinophils (%) (Auto) 3.8 % (0.0-3.0) H Basophils (%) (Auto) 0.7 % (0.0-2.0) Sodium Level 134 MMOL/L (136-145) L Potassium Level 5.7 MMOL/L (3.5-5.1) H Chloride Level 101 MMOL/L (98-107) Carbon Dioxide Level 21 MMOL/L (21-32) Anion Gap 12 mmol/L (5-15) Blood Urea Nitrogen 28 mg/dL (7-18) H Creatinine 0.8 MG/DL (0.55-1.30) Estimat Glomerular Filtration Rate mL/min (>60) Glucose Level 161 MG/DL (74-106) H Calcium Level 9.8 MG/DL (8.5-10.1) Triglycerides Level 457 MG/DL (30-150) H Cholesterol Level 118 MG/DL (< 200) LDL Cholesterol 46 mg/dL (<100) HDL Cholesterol 24 MG/DL (40-60) L Cholesterol/HDL Ratio 4.9 (3.3-4.4) H Abhishek Guerra MD Dec 30, 2018 11:06
--- NOTE | 2018-12-30 11:13 | GI Progress Note ---
Assessment/Plan Problems: (1) Colostomy care ICD Codes: Z43.3 - Encounter for attention to colostomy SNOMED: 292223502 (2) Anemia ICD Codes: D64.9 - Anemia, unspecified SNOMED: 597100149 (3) Feeding by G-tube ICD Codes: Z93.1 - Gastrostomy status SNOMED: 934471761, 545258606 (4) Abdominal wall cellulitis ICD Codes: L03.311 - Cellulitis of abdominal wall SNOMED: 69034889 (5) Acute pancreatitis ICD Codes: K85.90 - Acute pancreatitis without necrosis or infection, unspecified SNOMED: 599349302 (6) Pancreatitis ICD Codes: K85.90 - Acute pancreatitis without necrosis or infection, unspecified SNOMED: 51680226 Status: unchanged Status Narrative Discussed with Dr. Jackson Assessment/Plan Occult blood stool positive Hepatitis panel negative Pancreatitis secondary to hypertriglyceridemia Elevated CA 19 Repeat lipid panel shows hypertriglyceridemia Add TriCor Stable H&H - PRN transfusions ppi daily lopid GTFs per RD tumor markers Trend lipase Supportive care The patient was seen and examined at bedside and all new and available data was reviewed in the patients chart. I agree with the above findings, impression and plan. (Patient seen earlier today. Signature stamp does not reflect patient encounter time.). - Benjamin Jackson MD Subjective Subjective Limited Objective Last 24 Hour Vital Signs Date Time Temp Pulse Resp B/P (MAP) Pulse Ox O2 Delivery O2 Flow Rate FiO2 12/30/18 10:57 115 25 30 12/30/18 09:00 114 22 30 12/30/18 08:00 30 12/30/18 08:00 Mechanical Ventilator 12/30/18 08:00 97.9 122 27 107/64 (78) 90 12/30/18 07:55 121 12/30/18 07:19 121 25 30 12/30/18 05:05 119 25 30 12/30/18 04:00 97.8 119 27 104/64 (77) 96 12/30/18 04:00 30 12/30/18 04:00 Mechanical Ventilator 12/30/18 03:32 118 12/30/18 03:25 120 29 30 12/30/18 01:19 116 25 30 12/30/18 00:00 97.9 121 26 104/64 (77) 99 12/30/18 00:00 Mechanical Ventilator 12/30/18 00:00 30 12/29/18 23:35 119 12/29/18 23:10 115 23 30 12/29/18 21:20 113 28 30 12/29/18 20:00 98.1 117 22 94/65 (75) 99 12/29/18 20:00 Mechanical Ventilator 12/29/18 20:00 30 12/29/18 19:10 118 12/29/18 19:04 114 22 30 12/29/18 17:02 111 25 30 12/29/18 16:00 30 12/29/18 16:00 97.9 107 26 110/70 (83) 93 12/29/18 16:00 102 12/29/18 16:00 Mechanical Ventilator 12/29/18 14:39 108 22 30 12/29/18 12:53 102 22 30 12/29/18 12:00 98.8 106 26 107/67 (80) 95 12/29/18 12:00 Mechanical Ventilator 12/29/18 12:00 30 12/29/18 11:49 107 Intake and Output 12/29/18 12/30/18 18:59 06:59 Intake Total 1300 ml 900 ml Output Total 2800 ml 840 ml Balance -1500 ml 60 ml Intake Free Water 450 ml 100 ml IV Total 300 ml 300 ml Tube Feeding 550 ml 300 ml Other 200 ml Output Urine Total 1750 ml 390 ml Stool Total 1050 ml 450 ml Laboratory Tests Test 12/30/18 03:15 White Blood Count 15.8 K/UL (4.8-10.8) H Red Blood Count 3.63 M/UL (4.70-6.10) L Hemoglobin 11.2 G/DL (14.2-18.0) L Hematocrit 32.7 % (42.0-52.0) L Mean Corpuscular Volume 90 FL (80-99) Mean Corpuscular Hemoglobin 30.9 PG (27.0-31.0) Mean Corpuscular Hemoglobin Concent 34.2 G/DL (32.0-36.0) Red Cell Distribution Width 15.1 % (11.6-14.8) H Platelet Count 267 K/UL (150-450) Mean Platelet Volume 8.3 FL (6.5-10.1) Neutrophils (%) (Auto) 81.1 % (45.0-75.0) H Lymphocytes (%) (Auto) 10.9 % (20.0-45.0) L Monocytes (%) (Auto) 3.6 % (1.0-10.0) Eosinophils (%) (Auto) 3.8 % (0.0-3.0) H Basophils (%) (Auto) 0.7 % (0.0-2.0) Sodium Level 134 MMOL/L (136-145) L Potassium Level 5.7 MMOL/L (3.5-5.1) H Chloride Level 101 MMOL/L (98-107) Carbon Dioxide Level 21 MMOL/L (21-32) Anion Gap 12 mmol/L (5-15) Blood Urea Nitrogen 28 mg/dL (7-18) H Creatinine 0.8 MG/DL (0.55-1.30) Estimat Glomerular Filtration Rate mL/min (>60) Glucose Level 161 MG/DL (74-106) H Calcium Level 9.8 MG/DL (8.5-10.1) Triglycerides Level 457 MG/DL (30-150) H Cholesterol Level 118 MG/DL (< 200) LDL Cholesterol 46 mg/dL (<100) HDL Cholesterol 24 MG/DL (40-60) L Cholesterol/HDL Ratio 4.9 (3.3-4.4) H Height (Feet): 5 Height (Inches): 8.00 Weight (Pounds): 145 General Appearance: WD/WN, no apparent distress, alert Cardiovascular: normal rate Respiratory/Chest: normal breath sounds, no respiratory distress, other - Tracheostomy Abdominal Exam: normal bowel sounds, non tender, soft, GT site - Clean dry and intact Extremities: normal range of motion, non-tender Cirilo Germain NP Dec 30, 2018 11:13
--- NOTE | 2018-12-30 11:16 | Diagnostic Imaging Report ---
Indication: Abdominal pain Technique: Continuous helical transaxial imaging of the abdomen and pelvis was obtained from the lung bases to the pubic symphysis. No intravenous contrast was administered. Coronal 2-D reformats were also obtained. Automatic Exposure Control was utilized. Total Dose length Product (DLP): 962.[address] Dose Index Volume (CTDIvol): 16.82 mGy Comparison: 03/30/[address] Findings: There is evidence of chronic dense left posterior medial consolidation versus collapse of a part of the left lower lobe. This was seen in the last CT from 2016 and appears unchanged. Extensive cystic changes noted in the anterior aspect of the right lung base involving the middle lobe with intervening areas of fibrosis. The liver is enlarged measuring 20 cm. Interval resolution of bowel obstruction noted. Gastrostomy tube noted. There are calcifications in the gallbladder fossa within what appears to be cystic duct remnant versus a contracted and calcified gallbladder. Correlate clinically. The study is limited due to the nonadministration of IV and oral contrast material. There is a hypodensity in the left kidney about the 1.5 cm not well characterize. As can be cystic or solid. Small retroperitoneal nodes are present. Surgical clips are seen in the abdomen scattered throughout the mesentery. Colectomy noted. The resected sigmoid stump noted. No small bowel dilatation to suggest obstruction. No evidence of abscess or ascites. There is a suprapubic catheter present in good position. There is thickening of the wall the urinary bladder consistent with cystitis. Aortoiliac calcifications are present. Accessory spleen noted. No adrenal mass seen. No hydronephrosis seen. Bones are osteopenic. Prominent active ulcer involving the right decubitus region which shows a 5 cm transversely oriented ulcer concavity with absence of skin and subcutaneous fat and evidence of drainage. Please correlate clinically. Large bony erosions involving both ischial tuberosities and sacrococcygeal regions demonstrated undoubtedly from previous bouts of osteomyelitis. The scrotum appears abnormal and heterogeneous with mixed attenuation and suggestion of a hydrocele. Cellulitis or other scrotal pathology not excluded. IMPRESSION: Suspected active decubitus ulcer right side with evidence of drainage. Correlate clinically. No deeper abscess or drainable collections identified. The ulcer probes to the right ischium. Acute osteomyelitis or acute on chronic osteomyelitis may be considered. Chronic bilateral grade 4 decubitus ulcers with the large areas absent eroded posterior ischia and absent lower sacrum and coccyx due to previous osteomyelitis. Scrotal swelling with skin thickening and suggestion of heterogeneous fluid within the scrotal sac. Correlate clinically. No evidence of intra-abdominal or pelvic abscess or other acute pathology. Chronic dense left posterior basilar consolidation/atelectasis. Extensive fibrosis and cystic replacement anterior right lung base middle lobe. Hepatomegaly. Gastrostomy. Accessory spleen. Small retroperitoneal nodes nonspecific Status post total colectomy. Rectosigmoid stump noted. Suprapubic catheter. Thickened bladder wall consistent with cystitis. The CT scanner at [facility] is accredited by the [employer] and the scans are performed using dose optimization techniques as appropriate to a performed exam including Automatic Exposure control.
--- NOTE | 2018-12-30 11:36 | NUR ---
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 RESPIRATORY FAILURE VS: BP 107/64, P 122, T 97.9, RR 27, SpO2 90 on VENT AC 18, TV 500, PEEP 5.0, FiO2 30 WBC 15.8, RBC 3.63, Hgb 11.2, Hct 32.7, Na 134, K 5.7, BUN 28 IS:KAYEXALATE 30gm LEVEMIR SUBQ LINEZOLID 300ml IVPB LOPID 600mg PREVACID 30mg SDU STATUS
[2018-12-30 12:00] VITALS: BP 107/75
--- NOTE | 2018-12-30 12:26 | NUR ---
NURSE NOTES: Left message for Dr Willams regarding elevated WBC count of 15.8 and low grade fever of 99.3 this morning. Awaiting call back.
--- NOTE | 2018-12-30 13:40 | NUR ---
NURSE NOTES: one [employer] packet administered at this time.
--- NOTE | 2018-12-30 13:57 | Infectious Diseases Prog Note ---
Assessment/Plan Assessment/Plan Assessment: Gram positive bacteremia- PICC line infection -12/26 2d echo: no vegetations 12/23 SP -Removal of PICC line - -12/20 1/ E. fecalis (S Van, amp), 1/2 MRSA. PICC line; Peripheral NTD; Bcx NTD; 12/23 Neg Septic shock , SP Severe Sepsis 2ry to GNR, sp Rx -12/24 CXR: Bilateral interstitial and airspace opacities, worse in the right upper lobe, slightly worse than prior study. -12/21 CXR: Bilateral interstitial and airspace opacities, associated bronchiectasis are again demonstrated. There is blunting of the left costophrenic sulcus again demonstrated. -12/17 CXR: No significant interval change in the diffuse patchy bilateral reticular interstitial and airspace opacities. -CXR: Probable small left pleural effusion, also evident on prior study 2017. Bilateral interstitial disease, unchanged, suspect chronic. Correlate with clinical findings -sp CX MDR PsA (S Gentamicin, AMikacin, Cefepime, Aztreonam, Tobramycin); repeats sp cx 12/20 MRSA; likely colonzier as vent settings stable GNR bacteremia, likely from UTI -CT abd/p: Findings consistent with uncomplicated nonnecrotizing acute pancreatitis. No evidence of associated peripancreatic abscess Surgical changes as described, including right lower quadrant ileostomy, subtotal colectomy with Haroldo procedure. Wall thickening of the Haroldo pouch. This could indicate inflammation. However, this is also present on both of the prior 2 exams and may be baseline for this patien. Evidence of mild anasarca, with edema of the subcutaneous fat. This is a new finding. Chronic appearing decubitus changes of the bilateral ischia. Correlate with clinical findings. Complete left lower lobe consolidation. This is similar to both of the prior CTs, andis likely a chronic finding. There is progressive chronic interstitial fibrotic change involving the right middle lobe. There is also right lower lobe granulomatous calcification, Extensive pulmonary parenchymal opacities bilaterally may reflect acute inflammation/infection, edema, progressive chronic scarring, orcombination of the above. These are considerably more extensive than on the prior study -u/a 10-15, nit neg, luek +3; ucx 50-60k Enterococcus (Vanco resist; S AMp), 40-50 K Proteus -12/07 Bcx 3/ Proteus; 12/08 Bcx 1/4 Proteus (S Aztreonam; R Cipro, levo; I Imipenem); Acute pancreatitis -lipase ~1k Fever - recurrent- in the setting of bacteremia and pancreaitis; Leukocytosis , recurrent, increased--in the setting of bacteremia, UTI and acute pancreatitis -CT abd/p Suspected active decubitus ulcer right side with evidence of drainage. Correlate clinically. No deeper abscess or drainable collections identified. The ulcer probes to the right ischium. Acute osteomyelitis or acute on chronic osteomyelitis may be considered. Chronic bilateral grade 4 decubitus ulcers with the large areas absent eroded posterior ischia and absent lower sacrum and coccyx due to previous osteomyelitis. Scrotal swelling with skin thickening and suggestion of heterogeneous fluid within the scrotal sac. Correlate clinically. No evidence of intra-abdominal or pelvic abscess or other acute pathology.Chronic dense left posterior basilar consolidation/atelectasis. Extensive fibrosis and cystic replacement anterior right lung base middle lobe. Sacral decubitus ulcer- w/ acute or acute on chronic OM CONS bacteremia- likely contaminant -12/12 Bcx 1/ CONS; 12/14 Bcx Neg MAULIK, improving dysphagia s/p peg COPD GBS quadriplegia chronic resp failure s/p trach HTN CVA, nonverbal anemia SNF resident Plan: -Continue Linezolid #10 for E. fecalis and MRSA bacteremia in the setting of vancomycin allergy -will likely treat for 6 weeks for OM pending sacral wound cx -12/22 SP Aztreonam #14 -12/21 SP INH tobramycin #7 -12/16 SP IV Daptomycin #7 -Cdiff, Bcx x2, sacral wound cx -Monitor CBC/CMP, temperatures -PEG/Trach care -Aspiration precautions -management of acute pancreatitis per primary team. -wound care per surgical team Subjective Allergies: Coded Allergies: PENICILLINS (Unverified Allergy, Unknown, 02/26/16) POLYMYXIN B (Unverified Allergy, Unknown, 02/26/16) VANCOMYCIN (Unverified Allergy, Unknown, 02/26/16) Subjective afebrile leukocytosis increased Objective Vital Signs Last 24 Hour Vital Signs Date Time Temp Pulse Resp B/P (MAP) Pulse Ox O2 Delivery O2 Flow Rate FiO2 12/30/18 12:00 30 12/30/18 12:00 99.3 113 20 107/75 (86) 98 12/30/18 12:00 Mechanical Ventilator 12/30/18 10:57 115 25 30 12/30/18 09:00 114 22 30 12/30/18 08:00 30 12/30/18 08:00 Mechanical Ventilator 12/30/18 08:00 97.9 122 27 107/64 (78) 90 12/30/18 07:55 121 12/30/18 07:19 121 25 30 12/30/18 05:05 119 25 30 12/30/18 04:00 97.8 119 27 104/64 (77) 96 12/30/18 04:00 30 12/30/18 04:00 Mechanical Ventilator 12/30/18 03:32 118 12/30/18 03:25 120 29 30 12/30/18 01:19 116 25 30 12/30/18 00:00 97.9 121 26 104/64 (77) 99 12/30/18 00:00 Mechanical Ventilator 12/30/18 00:00 30 12/29/18 23:35 119 12/29/18 23:10 115 23 30 12/29/18 21:20 113 28 30 12/29/18 20:00 98.1 117 22 94/65 (75) 99 12/29/18 20:00 Mechanical Ventilator 12/29/18 20:00 30 12/29/18 19:10 118 12/29/18 19:04 114 22 30 12/29/18 17:02 111 25 30 12/29/18 16:00 30 12/29/18 16:00 97.9 107 26 110/70 (83) 93 12/29/18 16:00 102 12/29/18 16:00 Mechanical Ventilator 12/29/18 14:39 108 22 30 Height (Feet): 5 Height (Inches): 8.00 Weight (Pounds): 145 Objective HEENT: Eyes were normal. ENT, mucous membranes were not dehydrated. NECK: Supple. There was no goiter. No mass. No lymphadenopathy. There was no JVD. No bruits. Carotid upstroke was 2+. LUNGS: Clear. HEART: PMI was in the fifth left intercostal space in midclavicular line. There was normal S1 and normal S2. There was no murmur. No arrhythmia. No S3. No S4. No pericardial rub. ABDOMEN: Soft and nontender without organomegaly. There were no masses palpable. Normal bowel sounds without bruits. There was no guarding. No rebound tenderness. No ascites. No hernia. No CVA tenderness. EXTREMITIES: No cyanosis, no clubbing, and no edema. Extremities were warm. Microbiology Date/Time Source Procedure Growth Status 12/28/18 04:30 Other(Specify in comment) Catheter Tip Culture - Preliminary NO GROWTH AFTER 48 HOURS Resulted Laboratory Tests Test 12/30/18 03:15 White Blood Count 15.8 K/UL (4.8-10.8) H Red Blood Count 3.63 M/UL (4.70-6.10) L Hemoglobin 11.2 G/DL (14.2-18.0) L Hematocrit 32.7 % (42.0-52.0) L Mean Corpuscular Volume 90 FL (80-99) Mean Corpuscular Hemoglobin 30.9 PG (27.0-31.0) Mean Corpuscular Hemoglobin Concent 34.2 G/DL (32.0-36.0) Red Cell Distribution Width 15.1 % (11.6-14.8) H Platelet Count 267 K/UL (150-450) Mean Platelet Volume 8.3 FL (6.5-10.1) Neutrophils (%) (Auto) 81.1 % (45.0-75.0) H Lymphocytes (%) (Auto) 10.9 % (20.0-45.0) L Monocytes (%) (Auto) 3.6 % (1.0-10.0) Eosinophils (%) (Auto) 3.8 % (0.0-3.0) H Basophils (%) (Auto) 0.7 % (0.0-2.0) Sodium Level 134 MMOL/L (136-145) L Potassium Level 5.7 MMOL/L (3.5-5.1) H Chloride Level 101 MMOL/L (98-107) Carbon Dioxide Level 21 MMOL/L (21-32) Anion Gap 12 mmol/L (5-15) Blood Urea Nitrogen 28 mg/dL (7-18) H Creatinine 0.8 MG/DL (0.55-1.30) Estimat Glomerular Filtration Rate mL/min (>60) Glucose Level 161 MG/DL (74-106) H Calcium Level 9.8 MG/DL (8.5-10.1) Triglycerides Level 457 MG/DL (30-150) H Cholesterol Level 118 MG/DL (< 200) LDL Cholesterol 46 mg/dL (<100) HDL Cholesterol 24 MG/DL (40-60) L Cholesterol/HDL Ratio 4.9 (3.3-4.4) H Current Medications Medications (Trade) Dose Ordered Sig/[place] Route PRN Reason Start Time Stop Time Status Last Admin Dose Admin Acetaminophen (Tylenol) 650 mg Q4H PRN GT For Pain 12/28/18 05:00 01/06/19 16:59 Albuterol/ Ipratropium (Albuterol/ Ipratropium) 3 ml Q4H PRN HHN Shortness of Breath 12/28/18 17:45 01/02/19 17:44 Calcitonin [place] (Miacalcin) 1 sprays DAILY NASAL 12/28/18 09:00 01/24/19 10:59 12/30/18 08:37 Chlorhexidine Gluconate (Sandra-Hex 2%) 1 applic DAILY@2000 TOPIC 12/28/18 20:00 01/09/19 19:59 12/29/18 21:39 Dextrose (Dextrose 50%) 25 ml Q30M PRN IV Hypoglycemia 12/28/18 05:00 01/09/19 13:59 Dextrose (Dextrose 50%) 50 ml Q30M PRN IV Hypoglycemia 12/28/18 05:00 01/09/19 13:59 Diltiazem HCl (Cardizem) 10 mg BIDPRN PRN IVP FOR HR >140 12/28/18 08:45 01/11/19 08:44 Fenofibrate (Tricor) 145 mg DAILY ORAL 12/31/18 09:00 01/30/19 08:59 Gemfibrozil (Lopid) 600 mg TWICE A DAY GT 12/28/18 09:00 01/14/19 10:14 12/30/18 08:37 Heparin Sodium (Porcine) (Heparin 5000 units/ml) 5,000 units EVERY 12 HOURS SUBQ 12/28/18 09:00 01/06/19 20:59 12/30/18 08:43 Insulin Aspart (NovoLOG) EVERY 4 HOURS SUBQ 12/28/18 05:00 01/09/19 04:59 12/30/18 12:48 Insulin Detemir (Levemir) 15 units Q12HR SUBQ 12/29/18 21:00 01/27/19 13:59 12/30/18 08:43 Lansoprazole (Prevacid) 30 mg BID GT 12/28/18 09:00 01/16/19 08:59 12/30/18 08:37 Linezolid 300 ml @ 300 mls/hr Q12HR IVPB 12/28/18 09:00 01/01/19 08:59 12/30/18 08:37 Nateglinide (Starlix) 120 mg Q8HR ORAL 12/28/18 06:00 01/17/19 21:59 12/30/18 13:40 Nitroglycerin (Ntg) 0.4 mg Q5M PRN SL Prn Chest Pain 12/28/18 04:50 01/06/19 16:59 Ondansetron HCl (Zofran) 4 mg Q6H PRN IVP Nausea & Vomiting 12/28/18 05:00 01/06/19 16:59 Polyethylene Glycol (Miralax) 17 gm DAILYPRN PRN GT Constipation 12/28/18 09:45 01/06/19 16:59 Aminah Champagne M.D. Dec 30, 2018 13:57
[2018-12-30 16:00] VITALS: BP 108/77
--- NOTE | 2018-12-30 16:07 | Nephrology Progress Note ---
Assessment/Plan Problem List: (1) Hypercalcemia (2) ATN (acute tubular necrosis) (3) Anemia (4) Feeding by G-tube (5) Acute and chronic respiratory failure (6) UTI (urinary tract infection) (7) Hyponatremia Assessment in [facility] Glucose better controlled Periodic high K Patient have mainly Pre Renal Azotemia with possible underlying CKD- Low Na partly depletional, partly due to Hyperglycemia RESOLVED Other conditions as outlined: (1) Acute and chronic respiratory failure ([id number]) (2) Sepsis (3) Malnutrition and HypoAlbuminemia (4) UTI (urinary tract infection) (5) Anemia (6) Diabetes mellitus, type II (7) Colostomy care (8) Cerebral vascular disease (9) Decubitus ulcer of sacral region, stage 2 (10) Feeding by G-tube (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 Plan K & Phos supplement as needed Levemir and adjust dose Stop Digoxin stop Atenolol Stop Cardiazem Pressors as needed Albumin bolus AREDIA 90 mg for HYPERCALCEMIA on 12/23 - Fu Calcium level will redose Kayexelate for high K as needed On Starlix feeding to glucerna Keep electrolytes in check Keep BS and BP in check per consultants Subjective ROS Limited/Unobtainable: Yes Objective Objective Last 24 Hour Vital Signs Date Time Temp Pulse Resp B/P (MAP) Pulse Ox O2 Delivery O2 Flow Rate FiO2 12/30/18 14:40 112 22 30 12/30/18 13:29 109 24 30 12/30/18 12:00 30 12/30/18 12:00 99.3 113 20 107/75 (86) 98 12/30/18 12:00 Mechanical Ventilator 12/30/18 11:42 114 12/30/18 10:57 115 25 30 12/30/18 09:00 114 22 30 12/30/18 08:00 30 12/30/18 08:00 Mechanical Ventilator 12/30/18 08:00 97.9 122 27 107/64 (78) 90 12/30/18 07:55 121 12/30/18 07:19 121 25 30 12/30/18 05:05 119 25 30 12/30/18 04:00 97.8 119 27 104/64 (77) 96 12/30/18 04:00 30 12/30/18 04:00 Mechanical Ventilator 12/30/18 03:32 118 12/30/18 03:25 120 29 30 12/30/18 01:19 116 25 30 12/30/18 00:00 97.9 121 26 104/64 (77) 99 12/30/18 00:00 Mechanical Ventilator 12/30/18 00:00 30 12/29/18 23:35 119 12/29/18 23:10 115 23 30 12/29/18 21:20 113 28 30 12/29/18 20:00 98.1 117 22 94/65 (75) 99 12/29/18 20:00 Mechanical Ventilator 12/29/18 20:00 30 12/29/18 19:10 118 12/29/18 19:04 114 22 30 12/29/18 17:02 111 25 30 Intake and Output 12/29/18 12/30/18 18:59 06:59 Intake Total 1300 ml 900 ml Output Total 2800 ml 840 ml Balance -1500 ml 60 ml Intake Free Water 450 ml 100 ml IV Total 300 ml 300 ml Tube Feeding 550 ml 300 ml Other 200 ml Output Urine Total 1750 ml 390 ml Stool Total 1050 ml 450 ml Laboratory Tests 12/30/18 03:15: White Blood Count 15.8H, Red Blood Count 3.63L, Hemoglobin 11.2L, Hematocrit 32.7L, Mean Corpuscular Volume 90, Mean Corpuscular Hemoglobin 30.9, Mean Corpuscular Hemoglobin Concent 34.2, Red Cell Distribution Width 15.1H, Platelet Count 267, Mean Platelet Volume 8.3, Neutrophils (%) (Auto) 81.1H, Lymphocytes (%) (Auto) 10.9L, Monocytes (%) (Auto) 3.6, Eosinophils (%) (Auto) 3.8H, Basophils (%) (Auto) 0.7, Sodium Level 134L, Potassium Level 5.7H, Chloride Level 101, Carbon Dioxide Level 21, Anion Gap 12, Blood Urea Nitrogen 28H, Creatinine 0.8, Estimat Glomerular Filtration Rate , Glucose Level 161H, Calcium Level 9.8, Triglycerides Level 457H, Cholesterol Level 118, LDL Cholesterol 46, HDL Cholesterol 24L, Cholesterol/HDL Ratio 4.9H Height (Feet): 5 Height (Inches): 8.00 Weight (Pounds): 145 General Appearance: no apparent distress Cardiovascular: tachycardia Respiratory/Chest: decreased breath sounds Abdomen: distended Objective no change Migue Moreland MD Dec 30, 2018 16:07
--- NOTE | 2018-12-30 16:27 | NUR ---
NURSE NOTES: Patient's PICC flushes but does not draw blood at this time. Both lumens flush but do not draw blood.
--- NOTE | 2018-12-30 16:45 | General Progress Note ---
Assessment/Plan Assessment/Plan Assessment/Recs: # Leukocytosis/Elevated white blood cell count,potentially due to infection with gram negative bacteremia, with uti and on abx --> have reviewed peripheral smear and bandemia/neutrophilia noted on initial smear was noted --> continue antibiotics if they have been started by ID team, titrate and change as needed --> monitor for resolution ---> WBC trend: 11-->16-->15-->14-->11-->12-->10.8-->11-->12-->11-->16 # Anemia of chronic disease due to underlying chronic medical issues, multifactorial --> Anemia workup has been reviewed, Ferritin [id number] --> No evidence of hemolysis is noted, peripheral smear has been reviewed. --> Hgb goal >7. Transfuse prn. --> Epogen or iron at this time is not particularly indicated --> Medications have been reviewed --> HGB trend: 7.8-->7.6-->6.2-->6.4->7.1-->8.7-->9.1-->8.4-->7.8-->9.4-->7.3--> 10.6-->10.1-->11 --> received prbc 12/25 # Thrombocytopenia - potential causes multifactorial, evaluate liver and viral etiologies to begin, also could be related to underlying medications --> Hep panel and HIV negative --> US abd to evaluate for cirrhosis and hsm reviewed --> Peripheral smear ordered to evaluate for blasts/schistocytes does not reveal any --> abx and other meds have been reviewed --> ok for ppx if plt >50k w/ either heparin or lovenox # Hypercalcemia potentailly related to dehydration --> s/p aredia as per renal --> pth reviewed --> trend Ca as needed # Severe prerenal azotemia, on ivf --> improve po oral intake and consider appetite stimulant # Severe Sepsis, CXR: Probable small left pleural effusion, also evident on prior study 11/22/2017 --> appreciate ID recs # Bacteremia, likely from UTI, PNA --> tolerating abx well --> as per pulm The timing of this note does not necessarily reflect the time of the patient was seen. Greatly appreciate consultation! Subjective Constitutional: Denies: no symptoms, chills, diaphoresis, fever, malaise, weakness, other Cardiovascular: Denies: no symptoms, chest pain, edema, irregular heart rate, lightheadedness, palpitations, syncope, other Respiratory: Denies: no symptoms, cough, orthopnea, shortness of breath, SOB with excertion, SOB at rest, sputum, stridor, wheezing, other Gastrointestinal/Abdominal: Denies: no symptoms, abdomen distended, abdominal pain, black stools, tarry stools, blood in stool, constipated, diarrhea, difficulty swallowing, nausea, poor appetite, poor fluid intake, rectal bleeding , vomiting, other Neurologic/Psychiatric: Denies: no symptoms, anxiety, depressed, emotional problems, headache, numbness, paresthesia, pre-existing deficit, seizure, tingling, tremors, weakness, other Endocrine: Denies: no symptoms, excessive sweating, flushing, intolerance to cold, intolerance to heat, increased hunger, increased thirst, increased urine, unexplained weight gain, unexplained weight loss, other Hematologic/Lymphatic: Denies: no symptoms, anemia, easy bleeding, easy bruising, other Allergies: Coded Allergies: PENICILLINS (Unverified Allergy, Unknown, 02/26/16) POLYMYXIN B (Unverified Allergy, Unknown, 02/26/16) VANCOMYCIN (Unverified Allergy, Unknown, 02/26/16) Subjective 3: seen by bedside, vent dependent, leukocytosis, 11, hgb 7, will transfuse, no events 12/12: awake, comfortable wbc trending up at 16, no events 12/13: hgb 6.4, receiving transfusion, , wbc remains elevated. no acute events 12/14: seen by bedside, awake, comfortable low grade fever, wbc remains elevated at 15, bacteremia on IV Abx, hgb 7.1, will transfuse as needed 12/15: Wbc remains elevated, no events reported, hgb trending up 12/16: seen by bedside, awake, comfortable, no events 12/18: seen in the room, on vent and trach, no events 12/19: reviewed cbc and appears relatively stable, on starlix, remains in sdu 12/20: seen by bedside, on vent, mild leukocytosis 12/21: Pt is resting , on vent, wbc trending up , no events 12/22: exam is essentially unchanged, on abx, have discussed with pcp, rn, wbc better 12/23: transfuse wbc 11, on abx 12/24: no events to report, on vent/trach care, without issue 12/26: in icu, resting comfortanly, off pressors 12/27: tolerating feeding and vent well, no issues, ca reviewed 12/28: no events, remains nonverbal, without complaints 12/29: no events, on vent/trach, nonverbal, no fevers 12/30: no events, labs have been reviewed, cbc noted, wbc higher Objective Last 24 Hour Vital Signs Date Time Temp Pulse Resp B/P (MAP) Pulse Ox O2 Delivery O2 Flow Rate FiO2 12/30/18 16:00 30 12/30/18 16:00 Mechanical Ventilator 12/30/18 16:00 98.0 106 20 108/77 (87) 100 12/30/18 14:40 112 22 30 12/30/18 13:29 109 24 30 12/30/18 12:00 30 12/30/18 12:00 99.3 113 20 107/75 (86) 98 12/30/18 12:00 Mechanical Ventilator 12/30/18 11:42 114 12/30/18 10:57 115 25 30 12/30/18 09:00 114 22 30 12/30/18 08:00 30 12/30/18 08:00 Mechanical Ventilator 12/30/18 08:00 97.9 122 27 107/64 (78) 90 12/30/18 07:55 121 12/30/18 07:19 121 25 30 12/30/18 05:05 119 25 30 12/30/18 04:00 97.8 119 27 104/64 (77) 96 12/30/18 04:00 30 12/30/18 04:00 Mechanical Ventilator 12/30/18 03:32 118 12/30/18 03:25 120 29 30 12/30/18 01:19 116 25 30 12/30/18 00:00 97.9 121 26 104/64 (77) 99 12/30/18 00:00 Mechanical Ventilator 12/30/18 00:00 30 12/29/18 23:35 119 12/29/18 23:10 115 23 30 12/29/18 21:20 113 28 30 12/29/18 20:00 98.1 117 22 94/65 (75) 99 12/29/18 20:00 Mechanical Ventilator 12/29/18 20:00 30 12/29/18 19:10 118 12/29/18 19:04 114 22 30 12/29/18 17:02 111 25 30 Intake and Output 12/29/18 12/30/18 18:59 06:59 Intake Total 1300 ml 900 ml Output Total 2800 ml 840 ml Balance -1500 ml 60 ml Intake Free Water 450 ml 100 ml IV Total 300 ml 300 ml Tube Feeding 550 ml 300 ml Other 200 ml Output Urine Total 1750 ml 390 ml Stool Total 1050 ml 450 ml Laboratory Tests 12/30/18 03:15: White Blood Count 15.8H, Red Blood Count 3.63L, Hemoglobin 11.2L, Hematocrit 32.7L, Mean Corpuscular Volume 90, Mean Corpuscular Hemoglobin 30.9, Mean Corpuscular Hemoglobin Concent 34.2, Red Cell Distribution Width 15.1H, Platelet Count 267, Mean Platelet Volume 8.3, Neutrophils (%) (Auto) 81.1H, Lymphocytes (%) (Auto) 10.9L, Monocytes (%) (Auto) 3.6, Eosinophils (%) (Auto) 3.8H, Basophils (%) (Auto) 0.7, Sodium Level 134L, Potassium Level 5.7H, Chloride Level 101, Carbon Dioxide Level 21, Anion Gap 12, Blood Urea Nitrogen 28H, Creatinine 0.8, Estimat Glomerular Filtration Rate , Glucose Level 161H, Calcium Level 9.8, Triglycerides Level 457H, Cholesterol Level 118, LDL Cholesterol 46, HDL Cholesterol 24L, Cholesterol/HDL Ratio 4.9H Height (Feet): 5 Height (Inches): 8.00 Weight (Pounds): 145 Objective HEENT: Eyes were normal. ENT, mucous membranes were not dehydrated. NECK: Supple. There was no goiter. No mass. No lad LUNGS: Clear. Vent++/trach HEART: PMI was in the fifth left intercostal space in midclavicular line. There was normal S1 and normal S2. There was no murmur. no s3/s4 ABDOMEN: Soft and nontender without organomegaly. There were no masses palpable. Normal bowel sounds without bruits. There was no guarding. No rebound tenderness. No ascites. No hernia. No CVA tenderness. Liver span was 8 cm, mostly nontender. EXTREMITIES: No cyanosis, no clubbing, and no edema. Extremities warm. Adarsh Kim MD Dec 30, 2018 16:45
--- NOTE | 2018-12-30 16:56 | Surgery Progress Note ---
Surgery Progress Note Subjective Additional Comments stable. labs noted. exam unchanged. dressings saturated and required changing Objective Last 24 Hour Vital Signs Date Time Temp Pulse Resp B/P (MAP) Pulse Ox O2 Delivery O2 Flow Rate FiO2 12/30/18 16:00 30 12/30/18 16:00 Mechanical Ventilator 12/30/18 16:00 98.0 106 20 108/77 (87) 100 12/30/18 14:40 112 22 30 12/30/18 13:29 109 24 30 12/30/18 12:00 30 12/30/18 12:00 99.3 113 20 107/75 (86) 98 12/30/18 12:00 Mechanical Ventilator 12/30/18 11:42 114 12/30/18 10:57 115 25 30 12/30/18 09:00 114 22 30 12/30/18 08:00 30 12/30/18 08:00 Mechanical Ventilator 12/30/18 08:00 97.9 122 27 107/64 (78) 90 12/30/18 07:55 121 12/30/18 07:19 121 25 30 12/30/18 05:05 119 25 30 12/30/18 04:00 97.8 119 27 104/64 (77) 96 12/30/18 04:00 30 12/30/18 04:00 Mechanical Ventilator 12/30/18 03:32 118 12/30/18 03:25 120 29 30 12/30/18 01:19 116 25 30 12/30/18 00:00 97.9 121 26 104/64 (77) 99 12/30/18 00:00 Mechanical Ventilator 12/30/18 00:00 30 12/29/18 23:35 119 12/29/18 23:10 115 23 30 12/29/18 21:20 113 28 30 12/29/18 20:00 98.1 117 22 94/65 (75) 99 12/29/18 20:00 Mechanical Ventilator 12/29/18 20:00 30 12/29/18 19:10 118 12/29/18 19:04 114 22 30 12/29/18 17:02 111 25 30 I&O Intake and Output 12/29/18 12/30/18 18:59 06:59 Intake Total 1300 ml 900 ml Output Total 2800 ml 840 ml Balance -1500 ml 60 ml Intake Free Water 450 ml 100 ml IV Total 300 ml 300 ml Tube Feeding 550 ml 300 ml Other 200 ml Output Urine Total 1750 ml 390 ml Stool Total 1050 ml 450 ml Dressing: saturated Wound: other Drains: other Cardiovascular: RSR Respiratory: decreased breath sounds Abdomen: soft, non-tender, present bowel sounds, non-distended Extremities: other Laboratory Tests Test 12/30/18 03:15 White Blood Count 15.8 K/UL (4.8-10.8) H Red Blood Count 3.63 M/UL (4.70-6.10) L Hemoglobin 11.2 G/DL (14.2-18.0) L Hematocrit 32.7 % (42.0-52.0) L Mean Corpuscular Volume 90 FL (80-99) Mean Corpuscular Hemoglobin 30.9 PG (27.0-31.0) Mean Corpuscular Hemoglobin Concent 34.2 G/DL (32.0-36.0) Red Cell Distribution Width 15.1 % (11.6-14.8) H Platelet Count 267 K/UL (150-450) Mean Platelet Volume 8.3 FL (6.5-10.1) Neutrophils (%) (Auto) 81.1 % (45.0-75.0) H Lymphocytes (%) (Auto) 10.9 % (20.0-45.0) L Monocytes (%) (Auto) 3.6 % (1.0-10.0) Eosinophils (%) (Auto) 3.8 % (0.0-3.0) H Basophils (%) (Auto) 0.7 % (0.0-2.0) Sodium Level 134 MMOL/L (136-145) L Potassium Level 5.7 MMOL/L (3.5-5.1) H Chloride Level 101 MMOL/L (98-107) Carbon Dioxide Level 21 MMOL/L (21-32) Anion Gap 12 mmol/L (5-15) Blood Urea Nitrogen 28 mg/dL (7-18) H Creatinine 0.8 MG/DL (0.55-1.30) Estimat Glomerular Filtration Rate mL/min (>60) Glucose Level 161 MG/DL (74-106) H Calcium Level 9.8 MG/DL (8.5-10.1) Triglycerides Level 457 MG/DL (30-150) H Cholesterol Level 118 MG/DL (< 200) LDL Cholesterol 46 mg/dL (<100) HDL Cholesterol 24 MG/DL (40-60) L Cholesterol/HDL Ratio 4.9 (3.3-4.4) H Plan Problems: (1) Decubitus skin ulcer Assessment & Plan: Pt presented on admission with multiple pressure injuries and Skin erosion. Pt has trach and no evidence of skin breakdown noted under trach collar. Unstageable pressure injury noted to L earlobe. Stable dry brown eschar noted(L) 0.7cm x (W)0.5cm. Gross erythema with denudement and multiple scattered partial thickness wounds noted to buttocks and base of scrotum extending into both posterior upper thighs.Moderate amt sanguineous exudate noted upon removal of drsgs. 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 Moderate amt sanguineous exudate noted (L)3cm x (W)1cm x (D)7.4cm.Erythema periwound secondary to skin erosions. Partially opened DTPI L ischium .Base of wound purple,fluctuant with red borders.Open areas at base of this wound are beefy red in colour.Moderate amt sanguineous exudate noted.(L)7cm x (W)6.8cm. DTPI R ischium.Wound is fluctuant-purple in center with surrounding Maroon colour, and is partially opened with a small area of 5% that is necrotic.(L) 6.5cm x (W)5.5cm. Red skin erosion periwound. Partial thickness pressure injury L hip. Base of wound is moist -viable. Edges adherent and dry. Periwound without erythema or induration(L)1.2cm x (W)0.5cm. Elongate partial thickness wound posterior upper L thigh .Base of wound is moist -viable .Small amt sanguineous exudate noted. (+) maceration along borders. Erythema without induration or elevation in skin temp noted.(L)2cm x (W )9.4cm. DTPI noted to R heel .Base of injury is indurated and maroon in colour. Periwound is firm without erythema. (L)1.5cm x (W)1cm.R heel without evidence of skin breakdown. Tx.Plan: Cleanse Sacrum with Saline. Loosely pack with Hydrogel impregnated Kerlix. Apply Triad Paste periwound. Cover with ABD pad. Daily and prn. Cleanse R and L ischial wounds with Saline. Apply Moisture Barrier Paste.Cover with abd pads Daily and prn. Apply Moisture Barrier to skin erosions on buttocks,scrotum, and posterior aspects of both thighs.Cover with ABD pad daily and prn. Cleanse wound L hip with Saline. Apply Moisture Barrier paste .Cover with Optifoam drsg Daily and prn. Cleanse wound posterior upper L thigh with saline .Apply Hydrogel. Cover with Optifoam drsg Daily and prn. Apply Cavilon Skin Barrier to L earlobe daily. Please monitor. Apply Cavilon Skin Barrier to L heel. Cover with Optifoam drsg. Change every 7 days and prn. Apply Cavilon Skin Barrier to R heel. Cover with Optifoam drsg .Change every 7 days and prn. Air fluidized mattress. Reposition every 2hours or as tolerated. Off-load heels with pillow. (2) Acute and chronic respiratory failure Assessment & Plan: cont with breathing treatments trach stable trach site clean will change dressings daily (3) Acute pancreatitis Assessment & Plan: Findings consistent with uncomplicated nonnecrotizing acute pancreatitis. No evidence of associated peripancreatic abscess Surgical changes as described, including right lower quadrant ileostomy, subtotal colectomy with Haroldo procedure. Wall thickening of the Haroldo pouch. This could indicate inflammation. However, this is also present on both of the prior 2 exams and may be baseline for this patient Evidence of mild anasarca, with edema of the subcutaneous fat. This is a new finding Chronic appearing decubitus changes of the bilateral ischia. Correlate with clinical findings Complete left lower lobe consolidation. This is similar to both of the prior CTs , and is likely a chronic finding. There is progressive chronic interstitial fibrotic change involving the right middle lobe. There is also right lower lobe granulomatous calcification Extensive pulmonary parenchymal opacities bilaterally may reflect acute inflammation/infection, edema, progressive chronic scarring, or combination of the above. These are considerably more extensive than on the prior study Trace bilateral pleural fluid New finding of nonobstructive right renal collecting system calculs 4 mm calculus within the bladder lumen. This may represent a bladder calculus, a calculus and left ureteral orifice, or recently passed stone. If either of the latter, no evidence of resultant hydronephrosis or hydroureter Suprapubic catheter. This is a new finding since the 2016 exams. Interim removal of previously demonstrated Bledsoe catheter Gastrostomy Left renal cysts. Subcentimeter low-attenuation right renal lesions, too small to characterize, most likely benign simple cysts. No further follow-up necessary elevated amylase/lipase trending down leukocytosis GNR Bacteremia transfused anemia Unfortunately patient not able to participate in exam and difficult to identify if clinically pancreatitis or just laboratory data. Recent CT with uncomplicated pancreatitis but enzymes still remain elevated. Patient tolerated tube feeds. Patient with gram-negative belle bacteremia likely from UTI. Patient remains febrile intermittently with worsening leukocytosis on IV antibiotics. -no acute surgical intervention planned -transfuse as per hematology -Abx as per ID -trend lip/[place] - recent finding based on CT given patient cannot given history or participate in exam. CT with uncomplicated pancreatitis. repeat CT A/P okay for diet / feeds for now. IV fluids Javier Ricardo Dec 30, 2018 16:56
--- NOTE | 2018-12-30 18:00 | NUR ---
NURSE NOTES: [employer] given.
--- NOTE | 2018-12-30 18:45 | NUR ---
NURSE NOTES: Collected C.diff and wound culture.
--- NOTE | 2018-12-30 19:19 | NUR ---
RESPIRATORY NOTE: Received pt on AC 18, 500VT, 30%, PEEP +5. Pt is trach-dependent w/ a cuffed,Portex 7 tube. Pt is awake, slowly responds & follows commands. B/S kaylynn. rhonchi, sxn minimal amounts of thick/thin, pale-yellow secretions. Vent plugged into red outlet, ambubag at bedside. Pt in no apparent distress at this time. Will continue plan of care.
--- NOTE | 2018-12-30 19:22 | Cardiology Progress Note ---
Assessment/Plan Assessment/Plan 1. Supraventricular tachycardia. recurrent 12/09 and 12/10 2. Renal insufficiency. 3. Hyponatremia. 4. 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 6. History of bowel resection. 7. History of CVA. 8. Chronic tracheostomy. 9. Diabetes mellitus. 10 pancreatitis 11. anemai off Cardizem via gtube and dig and atenolol no furtehr svt heart rate stable tele looks ok Subjective ROS Limited/Unobtainable: Yes Subjective on the vent Objective Last 24 Hour Vital Signs Date Time Temp Pulse Resp B/P (MAP) Pulse Ox O2 Delivery O2 Flow Rate FiO2 12/30/18 19:18 109 28 30 12/30/18 17:15 108 22 30 12/30/18 16:00 108 12/30/18 16:00 30 12/30/18 16:00 Mechanical Ventilator 12/30/18 16:00 98.0 106 20 108/77 (87) 100 12/30/18 14:40 112 22 30 12/30/18 13:29 109 24 30 12/30/18 12:00 30 12/30/18 12:00 99.3 113 20 107/75 (86) 98 12/30/18 12:00 Mechanical Ventilator 12/30/18 11:42 114 12/30/18 10:57 115 25 30 12/30/18 09:00 114 22 30 12/30/18 08:00 30 12/30/18 08:00 Mechanical Ventilator 12/30/18 08:00 97.9 122 27 107/64 (78) 90 12/30/18 07:55 121 12/30/18 07:19 121 25 30 12/30/18 05:05 119 25 30 12/30/18 04:00 97.8 119 27 104/64 (77) 96 12/30/18 04:00 30 12/30/18 04:00 Mechanical Ventilator 12/30/18 03:32 118 12/30/18 03:25 120 29 30 12/30/18 01:19 116 25 30 12/30/18 00:00 97.9 121 26 104/64 (77) 99 12/30/18 00:00 Mechanical Ventilator 12/30/18 00:00 30 12/29/18 23:35 119 12/29/18 23:10 115 23 30 12/29/18 21:20 113 28 30 12/29/18 20:00 98.1 117 22 94/65 (75) 99 12/29/18 20:00 Mechanical Ventilator 12/29/18 20:00 30 General Appearance: no apparent distress, alert, on vent, patient on isolation Extremities: no swelling Intake and Output 12/29/18 12/30/18 19:00 07:00 Intake Total 1350 ml 850 ml Output Total 2800 ml 840 ml Balance -1450 ml 10 ml Intake Free Water 450 ml 100 ml IV Total 300 ml 300 ml Tube Feeding 600 ml 250 ml Other 200 ml Output Urine Total 1750 ml 390 ml Stool Total 1050 ml 450 ml Laboratory Tests Test 12/30/18 03:15 White Blood Count 15.8 K/UL (4.8-10.8) H Red Blood Count 3.63 M/UL (4.70-6.10) L Hemoglobin 11.2 G/DL (14.2-18.0) L Hematocrit 32.7 % (42.0-52.0) L Mean Corpuscular Volume 90 FL (80-99) Mean Corpuscular Hemoglobin 30.9 PG (27.0-31.0) Mean Corpuscular Hemoglobin Concent 34.2 G/DL (32.0-36.0) Red Cell Distribution Width 15.1 % (11.6-14.8) H Platelet Count 267 K/UL (150-450) Mean Platelet Volume 8.3 FL (6.5-10.1) Neutrophils (%) (Auto) 81.1 % (45.0-75.0) H Lymphocytes (%) (Auto) 10.9 % (20.0-45.0) L Monocytes (%) (Auto) 3.6 % (1.0-10.0) Eosinophils (%) (Auto) 3.8 % (0.0-3.0) H Basophils (%) (Auto) 0.7 % (0.0-2.0) Sodium Level 134 MMOL/L (136-145) L Potassium Level 5.7 MMOL/L (3.5-5.1) H Chloride Level 101 MMOL/L (98-107) Carbon Dioxide Level 21 MMOL/L (21-32) Anion Gap 12 mmol/L (5-15) Blood Urea Nitrogen 28 mg/dL (7-18) H Creatinine 0.8 MG/DL (0.55-1.30) Estimat Glomerular Filtration Rate mL/min (>60) Glucose Level 161 MG/DL (74-106) H Calcium Level 9.8 MG/DL (8.5-10.1) Triglycerides Level 457 MG/DL (30-150) H Cholesterol Level 118 MG/DL (< 200) LDL Cholesterol 46 mg/dL (<100) HDL Cholesterol 24 MG/DL (40-60) L Cholesterol/HDL Ratio 4.9 (3.3-4.4) H Microbiology Date/Time Source Procedure Growth Status 12/28/18 04:30 Other(Specify in comment) Catheter Tip Culture - Preliminary NO GROWTH AFTER 48 HOURS Resulted Donny Kelley MD Dec 30, 2018 19:22
--- NOTE | 2018-12-30 19:29 | NUR ---
HAND-OFF: Report given to SHAKIR Huston. Patient VS stable at this time with no sign of acute distress. Addendum: 12/30/18 at 1930 by Glenys Gonsalez RN Patient's suprapubic catheter continues to leak despite numerous attempts to reinflate the balloon. Endorsed to follow up with Dr Urias.
--- NOTE | 2018-12-30 19:30 | NUR ---
NURSE NOTES: Received bedside report from SHAKIR Veronica.Patient stable,A&Ox1,ST on medical records custodian,no respiratory distress noted,no s/s of pain,Portex 7 with setting AC 18 TV 500 FiO2 30% PEEP 5,GT intact running with Glucerna 1.5 @50 ml/hr, 150 ml flush Q 4hrs,no residual,BS active in all quadrants, colostomy on RLQ,suprapubic cath is leaking will notify primary physician,PICC line on EDA asymptomatic,last dressing changed 12/28/18,bed secured,call light within a reach,will continue to monitor and follow POC
[2018-12-30 20:00] VITALS: BP 124/79
[2018-12-30] MEDS: Dyna-Hex 2% Top Sol 2oz TOPIC SCH (20:41)
[2018-12-31] VITALS: BP 113/74
[2018-12-31] MEDS: NovoLOG Insulin Flexpen SUBQ SCH ×6 (00:40→20:13)
[2018-12-31 04:00] VITALS: BP 109/69
[2018-12-31 04:36] LABS: BASOPHILS % (AUTO) 0.9 % (0.0-2.0); EOSINOPHILS % (AUTO) 3.3 % (0.0-3.0); HEMATOCRIT 30.8 % (42.0-52.0); HEMOGLOBIN 10.4 G/DL (14.2-18.0); LYMPHOCYTES % (AUTO) 10.6 % (20.0-45.0); MEAN CORPUSCULAR VOLUME 91 FL (80-99); MONOCYTES % (AUTO) 2.4 % (1.0-10.0); NEUTROPHILS % (AUTO) 82.7 % (45.0-75.0); PLATELET COUNT 222 K/UL (150-450); RED BLOOD COUNT 3.39 M/UL (4.70-6.10); RED CELL DISTRIBUTION WIDTH 15.1 % (11.6-14.8); WHITE BLOOD COUNT 14.6 K/UL (4.8-10.8)
[2018-12-31 05:07] LABS: ALANINE AMINOTRANSFERASE 11 U/L (12-78); ALBUMIN 1.6 G/DL (3.4-5.0); ALBUMIN/GLOBULIN RATIO 0.2 (1.0-2.7); ALKALINE PHOSPHATASE 162 U/L (46-116); ANION GAP 12 mmol/L (5-15); ASPARTATE AMINO TRANSFERASE 17 U/L (15-37); BILIRUBIN,TOTAL 0.2 MG/DL (0.2-1.0); BLOOD UREA NITROGEN 31 mg/dL (7-18); CALCIUM 9.3 MG/DL (8.5-10.1); CARBON DIOXIDE 23 MMOL/L (21-32); CHLORIDE 99 MMOL/L (98-107); CREATININE 0.8 MG/DL (0.55-1.30); PHOSPHORUS 3.2 MG/DL (2.5-4.9); POTASSIUM 4.8 MMOL/L (3.5-5.1); SODIUM 134 MMOL/L (136-145)
--- NOTE | 2018-12-31 07:15 | NUR ---
RESPIRATORY NOTE: Patient received on Mechanical ventilator. Patient is trach with PTX 7. Current settings AC50 Addendum: 12/31/18 at 1747 by Twin Shah, RT RESPIRATORY NOTE: Patient received on Mechanical ventilator. Patient is trach with PTX 7. Current settings AC500, 18, +5, 30%. Alarms are set and audible, plugged into red outlet, HR and SPO2 is being monitored, Spare trach bedside, AMBU bag bedside. Will continue to monitor.
--- NOTE | 2018-12-31 07:16 | NUR ---
HAND-OFF: Report given to SHAKIR Watkins.Patient stable.
--- NOTE | 2018-12-31 07:24 | NUR ---
NURSE NOTES: Received report from SHAKIR Huston. Patient resting in bed, in stable condition. No s/sx of SOB, breathing is even and unlabored, vent settings are as ordered. Observed no presence of pain or discomfort at this time. Bed is in lowest position, brakes engaged. Call light is kept within easy reach. Will continue to monitor patient.
[2018-12-31 08:00] VITALS: BP 98/61
--- NOTE | 2018-12-31 08:22 | Infectious Diseases Prog Note ---
Assessment/Plan Assessment/Plan Gram positive bacteremia- PICC line infection -12/26 2d echo: no vegetations 12/23 SP -Removal of PICC line - -12/20 1/ E. fecalis (S Van, amp), 1/2 MRSA. PICC line; Peripheral NTD; Bcx NTD; 12/23 Neg Septic shock , SP Severe Sepsis 2ry to GNR, sp Rx -12/24 CXR: Bilateral interstitial and airspace opacities, worse in the right upper lobe, slightly worse than prior study. -12/21 CXR: Bilateral interstitial and airspace opacities, associated bronchiectasis are again demonstrated. There is blunting of the left costophrenic sulcus again demonstrated. -12/17 CXR: No significant interval change in the diffuse patchy bilateral reticular interstitial and airspace opacities. -CXR: Probable small left pleural effusion, also evident on prior study 2017. Bilateral interstitial disease, unchanged, suspect chronic. Correlate with clinical findings -sp CX MDR PsA (S Gentamicin, AMikacin, Cefepime, Aztreonam, Tobramycin); repeats sp cx 12/20 MRSA; likely colonzier as vent settings stable GNR bacteremia, likely from UTI -CT abd/p: Findings consistent with uncomplicated nonnecrotizing acute pancreatitis. No evidence of associated peripancreatic abscess Surgical changes as described, including right lower quadrant ileostomy, subtotal colectomy with Haroldo procedure. Wall thickening of the Haroldo pouch. This could indicate inflammation. However, this is also present on both of the prior 2 exams and may be baseline for this patien. Evidence of mild anasarca, with edema of the subcutaneous fat. This is a new finding. Chronic appearing decubitus changes of the bilateral ischia. Correlate with clinical findings. Complete left lower lobe consolidation. This is similar to both of the prior CTs, andis likely a chronic finding. There is progressive chronic interstitial fibrotic change involving the right middle lobe. There is also right lower lobe granulomatous calcification, Extensive pulmonary parenchymal opacities bilaterally may reflect acute inflammation/infection, edema, progressive chronic scarring, orcombination of the above. These are considerably more extensive than on the prior study -u/a 10-15, nit neg, luek +3; ucx 50-60k Enterococcus (Vanco resist; S AMp), 40-50 K Proteus -12/07 Bcx 3 Proteus; 12/08 Bcx / Proteus (S Aztreonam; R Cipro, levo; I Imipenem); Acute pancreatitis -lipase ~1k Fever - recurrent- in the setting of bacteremia and pancreaitis; Leukocytosis , recurrent, increased--in the setting of bacteremia, UTI and acute pancreatitis -CT abd/p Suspected active decubitus ulcer right side with evidence of drainage. Correlate clinically. No deeper abscess or drainable collections identified. The ulcer probes to the right ischium. Acute osteomyelitis or acute on chronic osteomyelitis may be considered. Chronic bilateral grade 4 decubitus ulcers with the large areas absent eroded posterior ischia and absent lower sacrum and coccyx due to previous osteomyelitis. Scrotal swelling with skin thickening and suggestion of heterogeneous fluid within the scrotal sac. Correlate clinically. No evidence of intra-abdominal or pelvic abscess or other acute pathology.Chronic dense left posterior basilar consolidation/atelectasis. Extensive fibrosis and cystic replacement anterior right lung base middle lobe. Sacral decubitus ulcer- w/ acute or acute on chronic OM CT 12/30/18 - OM of sacrum CONS bacteremia- likely contaminant -12/12 Bcx / CONS; 12/14 Bcx Neg MAULIK, improving dysphagia s/p peg COPD GBS quadriplegia chronic resp failure s/p trach HTN CVA, nonverbal anemia SNF resident Plan: -Continue Linezolid #11 for E. fecalis and MRSA bacteremia in the setting of vancomycin allergy -will likely treat for 6 weeks for OM pending sacral wound cx -12/22 SP Aztreonam #14 -12/21 SP INH tobramycin #7 -12/16 SP IV Daptomycin #7 -Cdiff, Bcx x2, sacral wound cx -Monitor CBC/CMP, temperatures -PEG/Trach care -Aspiration precautions -management of acute pancreatitis per primary team. -wound care per surgical team Subjective Allergies: Coded Allergies: PENICILLINS (Unverified Allergy, Unknown, 02/26/16) POLYMYXIN B (Unverified Allergy, Unknown, 02/26/16) VANCOMYCIN (Unverified Allergy, Unknown, 02/26/16) Subjective Patient afebrile Leukocytosis improved Satting well on 30% O2 Objective Vital Signs Last 24 Hour Vital Signs Date Time Temp Pulse Resp B/P (MAP) Pulse Ox O2 Delivery O2 Flow Rate FiO2 3/30/19 06:48 112 26 30 12/31/18 05:15 111 25 30 12/31/18 04:00 30 12/31/18 04:00 Mechanical Ventilator 12/31/18 04:00 117 12/31/18 04:00 98.8 112 24 109/69 (82) 97 12/31/18 02:50 112 25 30 12/31/18 01:21 114 25 30 12/31/18 00:00 98.5 113 24 113/74 (87) 99 12/31/18 00:00 111 12/31/18 00:00 Mechanical Ventilator 12/30/18 23:00 112 29 30 12/30/18 21:25 110 25 30 12/30/18 20:00 30 12/30/18 20:00 Mechanical Ventilator 12/30/18 20:00 98.3 106 28 124/79 (94) 98 12/30/18 19:44 106 12/30/18 19:18 109 28 30 12/30/18 17:15 108 22 30 12/30/18 16:00 108 12/30/18 16:00 30 12/30/18 16:00 Mechanical Ventilator 12/30/18 16:00 98.0 106 20 108/77 (87) 100 12/30/18 14:40 112 22 30 12/30/18 13:29 109 24 30 12/30/18 12:00 30 12/30/18 12:00 99.3 113 20 107/75 (86) 98 12/30/18 12:00 Mechanical Ventilator 12/30/18 11:42 114 12/30/18 10:57 115 25 30 12/30/18 09:00 114 22 30 Height (Feet): 5 Height (Inches): 8.00 Weight (Pounds): 146 Objective GEN: NAD, On 30 % O2 HEENT: CTAB, PERRL, MMM. LUNGS: CTAB, No W HEART: RRR, S1, S2 ABDOMEN: Soft and nontender Microbiology Date/Time Source Procedure Growth Status 12/30/18 17:37 Stool Clostridium difficile Toxin Assay - Final Complete Laboratory Tests Test 12/31/18 04:00 White Blood Count 14.6 K/UL (4.8-10.8) H Red Blood Count 3.39 M/UL (4.70-6.10) L Hemoglobin 10.4 G/DL (14.2-18.0) L Hematocrit 30.8 % (42.0-52.0) L Mean Corpuscular Volume 91 FL (80-99) Mean Corpuscular Hemoglobin 30.7 PG (27.0-31.0) Mean Corpuscular Hemoglobin Concent 33.8 G/DL (32.0-36.0) Red Cell Distribution Width 15.1 % (11.6-14.8) H Platelet Count 222 K/UL (150-450) Mean Platelet Volume 8.4 FL (6.5-10.1) Neutrophils (%) (Auto) 82.7 % (45.0-75.0) H Lymphocytes (%) (Auto) 10.6 % (20.0-45.0) L Monocytes (%) (Auto) 2.4 % (1.0-10.0) Eosinophils (%) (Auto) 3.3 % (0.0-3.0) H Basophils (%) (Auto) 0.9 % (0.0-2.0) Erythrocyte Sedimentation Rate 93 MM/HR (0-20) H Sodium Level 134 MMOL/L (136-145) L Potassium Level 4.8 MMOL/L (3.5-5.1) Chloride Level 99 MMOL/L (98-107) Carbon Dioxide Level 23 MMOL/L (21-32) Anion Gap 12 mmol/L (5-15) Blood Urea Nitrogen 31 mg/dL (7-18) H Creatinine 0.8 MG/DL (0.55-1.30) Estimat Glomerular Filtration Rate mL/min (>60) Glucose Level 204 MG/DL (74-106) H Calcium Level 9.3 MG/DL (8.5-10.1) Phosphorus Level 3.2 MG/DL (2.5-4.9) Magnesium Level 1.8 MG/DL (1.8-2.4) Total Bilirubin 0.2 MG/DL (0.2-1.0) Aspartate Amino Transf (AST/SGOT) 17 U/L (15-37) Alanine Aminotransferase (ALT/SGPT) 11 U/L (12-78) L Alkaline Phosphatase 162 U/L (46-116) H C-Reactive Protein, Quantitative 22.7 mg/dL (0.00-0.90) H Total Protein 8.7 G/DL (6.4-8.2) H Albumin 1.6 G/DL (3.4-5.0) L Globulin 7.1 g/dL Albumin/Globulin Ratio 0.2 (1.0-2.7) L Current Medications Medications (Trade) Dose Ordered Sig/Fransisco Route PRN Reason Start Time Stop Time Status Last Admin Dose Admin Acetaminophen (Tylenol) 650 mg Q4H PRN GT For Pain 12/28/18 05:00 01/06/19 16:59 Albuterol/ Ipratropium (Albuterol/ Ipratropium) 3 ml Q4H PRN HHN Shortness of Breath 12/28/18 17:45 01/02/19 17:44 Calcitonin [place] (Miacalcin) 1 sprays DAILY NASAL 12/28/18 09:00 01/24/19 10:59 12/30/18 08:37 Chlorhexidine Gluconate (Sandra-Hex 2%) 1 applic DAILY@2000 TOPIC 12/28/18 20:00 01/09/19 19:59 12/30/18 20:41 Dextrose (Dextrose 50%) 25 ml Q30M PRN IV Hypoglycemia 12/28/18 05:00 01/09/19 13:59 Dextrose (Dextrose 50%) 50 ml Q30M PRN IV Hypoglycemia 12/28/18 05:00 01/09/19 13:59 Diltiazem HCl (Cardizem) 10 mg BIDPRN PRN IVP FOR HR >140 12/28/18 08:45 01/11/19 08:44 Fenofibrate (Tricor) 145 mg DAILY ORAL 12/31/18 09:00 01/30/19 08:59 Gemfibrozil (Lopid) 600 mg TWICE A DAY GT 12/28/18 09:00 01/14/19 10:14 12/30/18 17:43 Heparin Sodium (Porcine) (Heparin 5000 units/ml) 5,000 units EVERY 12 HOURS SUBQ 12/28/18 09:00 01/06/19 20:59 12/30/18 20:42 Insulin Aspart (NovoLOG) EVERY 4 HOURS SUBQ 12/28/18 05:00 01/09/19 04:59 12/31/18 05:15 Insulin Detemir (Levemir) 15 units Q12HR SUBQ 12/29/18 21:00 01/27/19 13:59 12/30/18 20:43 Lansoprazole (Prevacid) 30 mg BID GT 12/28/18 09:00 01/16/19 08:59 12/30/18 17:43 Linezolid 300 ml @ 300 mls/hr Q12HR IVPB 12/28/18 09:00 01/01/19 08:59 12/30/18 20:41 Nateglinide (Starlix) 120 mg Q8HR ORAL 12/28/18 06:00 01/17/19 21:59 12/31/18 05:13 Nitroglycerin (Ntg) 0.4 mg Q5M PRN SL Prn Chest Pain 12/28/18 04:50 01/06/19 16:59 Ondansetron HCl (Zofran) 4 mg Q6H PRN IVP Nausea & Vomiting 12/28/18 05:00 01/06/19 16:59 Polyethylene Glycol (Miralax) 17 gm DAILYPRN PRN GT Constipation 12/28/18 09:45 01/06/19 16:59 Chico Allen MD Dec 31, 2018 08:22
--- NOTE | 2018-12-31 08:48 | General Progress Note ---
Assessment/Plan Problem List: (1) Tracheostomy in place ICD Codes: Z98.89 - Other specified postprocedural states SNOMED: 318627493 (2) Acute and chronic respiratory failure ICD Codes: J96.20 - Acute and chronic respiratory failure, unspecified whether with hypoxia or hypercapnia SNOMED: 23619165, 91814639 (3) Decubitus ulcer of sacral region, stage 2 ICD Codes: L89.152 - Pressure ulcer of sacral region, stage 2 SNOMED: 464356953, 968940491 (4) Cerebral vascular disease ICD Codes: I67.9 - Cerebrovascular disease, unspecified SNOMED: 14295823 (5) Colostomy care ICD Codes: Z43.3 - Encounter for attention to colostomy SNOMED: 801056302 (6) Hypertension ICD Codes: I10 - Essential (primary) hypertension SNOMED: 02371350 (7) Diabetes mellitus, type II ICD Codes: E11.9 - Type 2 diabetes mellitus without complications SNOMED: 50002692 (8) Feeding by G-tube ICD Codes: Z93.1 - Gastrostomy status SNOMED: 998508352, 328962133 (9) Anemia ICD Codes: D64.9 - Anemia, unspecified SNOMED: 599756287 (10) Pancreatitis ICD Codes: K85.90 - Acute pancreatitis without necrosis or infection, unspecified SNOMED: 61762270 Assessment/Plan Occult blood stool positive >>1/2>>> repeat stool ob fu CBC Hepatitis panel negative Pancreatitis secondary to hypertriglyceridemia Elevated CA 19, mild Repeat lipid panel shows hypertriglyceridemia TriCor and lopid Stable H&H - PRN transfusions ppi daily GTFs per RD repeat lipase Supportive care Subjective ROS Limited/Unobtainable: No Allergies: Coded Allergies: PENICILLINS (Unverified Allergy, Unknown, 02/26/16) POLYMYXIN B (Unverified Allergy, Unknown, 02/26/16) VANCOMYCIN (Unverified Allergy, Unknown, 02/26/16) Objective Last 24 Hour Vital Signs Date Time Temp Pulse Resp B/P (MAP) Pulse Ox O2 Delivery O2 Flow Rate FiO2 12/31/18 06:48 112 26 30 12/31/18 05:15 111 25 30 12/31/18 04:00 30 12/31/18 04:00 Mechanical Ventilator 12/31/18 04:00 117 12/31/18 04:00 98.8 112 24 109/69 (82) 97 12/31/18 02:50 112 25 30 12/31/18 01:21 114 25 30 12/31/18 00:00 98.5 113 24 113/74 (87) 99 12/31/18 00:00 111 12/31/18 00:00 Mechanical Ventilator 12/30/18 23:00 112 29 30 12/30/18 21:25 110 25 30 12/30/18 20:00 30 12/30/18 20:00 Mechanical Ventilator 12/30/18 20:00 98.3 106 28 124/79 (94) 98 12/30/18 19:44 106 12/30/18 19:18 109 28 30 12/30/18 17:15 108 22 30 12/30/18 16:00 108 12/30/18 16:00 30 12/30/18 16:00 Mechanical Ventilator 12/30/18 16:00 98.0 106 20 108/77 (87) 100 12/30/18 14:40 112 22 30 12/30/18 13:29 109 24 30 12/30/18 12:00 30 12/30/18 12:00 99.3 113 20 107/75 (86) 98 12/30/18 12:00 Mechanical Ventilator 12/30/18 11:42 114 12/30/18 10:57 115 25 30 12/30/18 09:00 114 22 30 Intake and Output 12/30/18 12/31/18 19:00 07:00 Intake Total 950 ml 1300 ml Output Total 1825 ml 750 ml Balance -875 ml 550 ml Intake Free Water 450 ml IV Total 300 ml 300 ml Tube Feeding 450 ml 550 ml Other 200 ml Output Urine Total 1475 ml 300 ml Stool Total 350 ml 450 ml # Voids 2 # Bowel Movements 1 Laboratory Tests 12/31/18 04:00: White Blood Count 14.6H, Red Blood Count 3.39L, Hemoglobin 10.4L, Hematocrit 30.8L, Mean Corpuscular Volume 91, Mean Corpuscular Hemoglobin 30.7, Mean Corpuscular Hemoglobin Concent 33.8, Red Cell Distribution Width 15.1H, Platelet Count 222, Mean Platelet Volume 8.4, Neutrophils (%) (Auto) 82.7H, Lymphocytes (%) (Auto) 10.6L, Monocytes (%) (Auto) 2.4, Eosinophils (%) (Auto) 3.3H, Basophils (%) (Auto) 0.9, Erythrocyte Sedimentation Rate 93H, Sodium Level 134L, Potassium Level 4.8, Chloride Level 99, Carbon Dioxide Level 23, Anion Gap 12, Blood Urea Nitrogen 31H, Creatinine 0.8, Estimat Glomerular Filtration Rate , Glucose Level 204H, Calcium Level 9.3, Phosphorus Level 3.2, Magnesium Level 1.8, Total Bilirubin 0.2, Aspartate Amino Transf (AST/SGOT) 17, Alanine Aminotransferase (ALT/SGPT) 11L, Alkaline Phosphatase 162H, C-Reactive Protein, Quantitative 22.7H, Total Protein 8.7H, Albumin 1.6L, Globulin 7.1, Albumin/Globulin Ratio 0.2L Height (Feet): 5 Height (Inches): 8.00 Weight (Pounds): 146 General Appearance: no apparent distress EENT: normal ENT inspection Neck: supple Cardiovascular: normal rate Respiratory/Chest: decreased breath sounds Abdomen: normal bowel sounds, non tender, soft Extremities: non-tender Benjamin Jackson MD Dec 31, 2018 08:48
[2018-12-31] MEDS: Heparin 5000 units/ml inj SUBQ SCH ×2 (09:37→20:13)
[2018-12-31] MEDS: Levemir Flexpen SUBQ SCH ×2 (09:38→20:14)
[2018-12-31 12:00] VITALS: BP 98/65
--- NOTE | 2018-12-31 12:23 | Pulmonolgy Critical Care Note ---
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 Assessment/Plan: hemodynamically getting better Respiratory: monitor respiratory rate, adjust FIO2 Cardiac: continue pressors, continue to monitor HR/BP Renal: F/U I&O, keep IV fluid Gastrointestinal: continue feedings/current rate Endocrine: check TSH, check HgA1C Hematologic: transfuse if hgb<8.5 Neurologic: PRN Ativan, keep patient comfortable Affect: PRN ativan Prophylaxis: Protonix Disposition: keep in ICU 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, 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 with: nurses, consultants, case work aidevolunteer manager - Objective Last 24 Hour Vital Signs Date Time Temp Pulse Resp B/P (MAP) Pulse Ox O2 Delivery O2 Flow Rate FiO2 12/31/18 12:00 30 12/31/18 12:00 Mechanical Ventilator 12/31/18 10:58 111 26 30 12/31/18 09:02 113 24 30 12/31/18 08:00 30 12/31/18 08:00 Mechanical Ventilator 12/31/18 08:00 114 12/31/18 08:00 98.7 114 24 98/61 (73) 98 12/31/18 06:48 112 26 30 12/31/18 05:15 111 25 30 12/31/18 04:00 30 12/31/18 04:00 Mechanical Ventilator 12/31/18 04:00 117 12/31/18 04:00 98.8 112 24 109/69 (82) 97 12/31/18 02:50 112 25 30 12/31/18 01:21 114 25 30 12/31/18 00:00 98.5 113 24 113/74 (87) 99 12/31/18 00:00 111 12/31/18 00:00 Mechanical Ventilator 12/30/18 23:00 112 29 30 12/30/18 21:25 110 25 30 12/30/18 20:00 30 12/30/18 20:00 Mechanical Ventilator 12/30/18 20:00 98.3 106 28 124/79 (94) 98 12/30/18 19:44 106 12/30/18 19:18 109 28 30 12/30/18 17:15 108 22 30 12/30/18 16:00 108 12/30/18 16:00 30 12/30/18 16:00 Mechanical Ventilator 12/30/18 16:00 98.0 106 20 108/77 (87) 100 12/30/18 14:40 112 22 30 12/30/18 13:29 109 24 30 Status: awake Condition: critical Neck: full ROM Lungs: chest wall tender Heart: HR/BP stable, regular Abdomen: active bowel sounds Extremities: no C/C/E, edema Decubiti: stage Micro: Microbiology Date/Time Source Procedure Growth Status 12/30/18 17:37 Stool Clostridium difficile Toxin Assay - Final Complete Accucheck: 212 Critical Care - Subjective ROS Limited/Unobtainable: No Condition: critical EKG Rhythm: Sinus Rhythm FI02: 30 Vent Support Breath Rate: 18 Vent Support Mode: AC Vent Tidal Volume: 500 Sputum Amount: Moderate PEEP: 5.0 PIP: 30 Tube Feeding Amount: 50 I&O: Intake and Output 12/30/18 12/31/18 19:00 07:00 Intake Total 950 ml 1300 ml Output Total 1825 ml 750 ml Balance -875 ml 550 ml Intake Free Water 450 ml IV Total 300 ml 300 ml Tube Feeding 450 ml 550 ml Other 200 ml Output Urine Total 1475 ml 300 ml Stool Total 350 ml 450 ml # Voids 2 # Bowel Movements 1 Labs: Laboratory Tests Test 12/31/18 04:00 12/31/18 09:34 White Blood Count 14.6 K/UL (4.8-10.8) H Red Blood Count 3.39 M/UL (4.70-6.10) L Hemoglobin 10.4 G/DL (14.2-18.0) L Hematocrit 30.8 % (42.0-52.0) L Mean Corpuscular Volume 91 FL (80-99) Mean Corpuscular Hemoglobin 30.7 PG (27.0-31.0) Mean Corpuscular Hemoglobin Concent 33.8 G/DL (32.0-36.0) Red Cell Distribution Width 15.1 % (11.6-14.8) H Platelet Count 222 K/UL (150-450) Mean Platelet Volume 8.4 FL (6.5-10.1) Neutrophils (%) (Auto) 82.7 % (45.0-75.0) H Lymphocytes (%) (Auto) 10.6 % (20.0-45.0) L Monocytes (%) (Auto) 2.4 % (1.0-10.0) Eosinophils (%) (Auto) 3.3 % (0.0-3.0) H Basophils (%) (Auto) 0.9 % (0.0-2.0) Erythrocyte Sedimentation Rate 93 MM/HR (0-20) H Sodium Level 134 MMOL/L (136-145) L Potassium Level 4.8 MMOL/L (3.5-5.1) Chloride Level 99 MMOL/L (98-107) Carbon Dioxide Level 23 MMOL/L (21-32) Anion Gap 12 mmol/L (5-15) Blood Urea Nitrogen 31 mg/dL (7-18) H Creatinine 0.8 MG/DL (0.55-1.30) Estimat Glomerular Filtration Rate mL/min (>60) Glucose Level 204 MG/DL (74-106) H Calcium Level 9.3 MG/DL (8.5-10.1) Phosphorus Level 3.2 MG/DL (2.5-4.9) Magnesium Level 1.8 MG/DL (1.8-2.4) Total Bilirubin 0.2 MG/DL (0.2-1.0) Aspartate Amino Transf (AST/SGOT) 17 U/L (15-37) Alanine Aminotransferase (ALT/SGPT) 11 U/L (12-78) L Alkaline Phosphatase 162 U/L (46-116) H C-Reactive Protein, Quantitative 22.7 mg/dL (0.00-0.90) H Total Protein 8.7 G/DL (6.4-8.2) H Albumin 1.6 G/DL (3.4-5.0) L Globulin 7.1 g/dL Albumin/Globulin Ratio 0.2 (1.0-2.7) L Stool Occult Blood Negative (NEGATIVE) Abhishek Guerra MD Dec 31, 2018 12:23
--- NOTE | 2018-12-31 13:12 | Nephrology Progress Note ---
Assessment/Plan Problem List: (1) Hypercalcemia (2) ATN (acute tubular necrosis) (3) Anemia (4) Feeding by G-tube (5) Acute and chronic respiratory failure (6) UTI (urinary tract infection) (7) Hyponatremia Assessment in [facility] - Glucose better controlled Periodic high K Patient have mainly Pre Renal Azotemia with possible underlying CKD- Low Na partly depletional, partly due to Hyperglycemia RESOLVED Other conditions as outlined: (1) Acute and chronic respiratory failure ([id number]) (2) Sepsis (3) Malnutrition and HypoAlbuminemia (4) UTI (urinary tract infection) (5) Anemia (6) Diabetes mellitus, type II (7) Colostomy care (8) Cerebral vascular disease (9) Decubitus ulcer of sacral region, stage 2 (10) Feeding by G-tube (11) 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 Plan K & Phos supplement as needed Levemir and adjust dose Stop Digoxin stop Atenolol Stop Cardiazem Pressors as needed Albumin bolus AREDIA 90 mg for HYPERCALCEMIA on 12/23 - Fu Calcium level will redose Kayexelate for high K as needed On Starlix feeding to glucerna Keep electrolytes in check Keep BS and BP in check per consultants Subjective ROS Limited/Unobtainable: Yes Objective Objective Last 24 Hour Vital Signs Date Time Temp Pulse Resp B/P (MAP) Pulse Ox O2 Delivery O2 Flow Rate FiO2 12/31/18 13:02 109 27 30 12/31/18 12:00 99.7 109 24 98/65 (76) 98 12/31/18 12:00 30 12/31/18 12:00 Mechanical Ventilator 12/31/18 10:58 111 26 30 12/31/18 09:02 113 24 30 12/31/18 08:00 30 12/31/18 08:00 Mechanical Ventilator 12/31/18 08:00 114 12/31/18 08:00 98.7 114 24 98/61 (73) 98 12/31/18 06:48 112 26 30 12/31/18 05:15 111 25 30 12/31/18 04:00 30 12/31/18 04:00 Mechanical Ventilator 12/31/18 04:00 117 12/31/18 04:00 98.8 112 24 109/69 (82) 97 12/31/18 02:50 112 25 30 12/31/18 01:21 114 25 30 12/31/18 00:00 98.5 113 24 113/74 (87) 99 12/31/18 00:00 111 12/31/18 00:00 Mechanical Ventilator 12/30/18 23:00 112 29 30 12/30/18 21:25 110 25 30 12/30/18 20:00 30 12/30/18 20:00 Mechanical Ventilator 12/30/18 20:00 98.3 106 28 124/79 (94) 98 12/30/18 19:44 106 12/30/18 19:18 109 28 30 12/30/18 17:15 108 22 30 12/30/18 16:00 108 12/30/18 16:00 30 12/30/18 16:00 Mechanical Ventilator 12/30/18 16:00 98.0 106 20 108/77 (87) 100 12/30/18 14:40 112 22 30 12/30/18 13:29 109 24 30 Intake and Output 12/30/18 12/31/18 18:59 06:59 Intake Total 950 ml 1300 ml Output Total 1825 ml 750 ml Balance -875 ml 550 ml Intake Free Water 450 ml IV Total 300 ml 300 ml Tube Feeding 450 ml 550 ml Other 200 ml Output Urine Total 1475 ml 300 ml Stool Total 350 ml 450 ml # Voids 2 # Bowel Movements 1 Laboratory Tests 12/31/18 04:00: White Blood Count 14.6H, Red Blood Count 3.39L, Hemoglobin 10.4L, Hematocrit 30.8L, Mean Corpuscular Volume 91, Mean Corpuscular Hemoglobin 30.7, Mean Corpuscular Hemoglobin Concent 33.8, Red Cell Distribution Width 15.1H, Platelet Count 222, Mean Platelet Volume 8.4, Neutrophils (%) (Auto) 82.7H, Lymphocytes (%) (Auto) 10.6L, Monocytes (%) (Auto) 2.4, Eosinophils (%) (Auto) 3.3H, Basophils (%) (Auto) 0.9, Erythrocyte Sedimentation Rate 93H, Sodium Level 134L, Potassium Level 4.8, Chloride Level 99, Carbon Dioxide Level 23, Anion Gap 12, Blood Urea Nitrogen 31H, Creatinine 0.8, Estimat Glomerular Filtration Rate , Glucose Level 204H, Calcium Level 9.3, Phosphorus Level 3.2, Magnesium Level 1.8, Total Bilirubin 0.2, Aspartate Amino Transf (AST/SGOT) 17, Alanine Aminotransferase (ALT/SGPT) 11L, Alkaline Phosphatase 162H, C-Reactive Protein, Quantitative 22.7H, Total Protein 8.7H, Albumin 1.6L, Globulin 7.1, Albumin/Globulin Ratio 0.2L 12/31/18 09:34: Stool Occult Blood Negative Height (Feet): 5 Height (Inches): 8.00 Weight (Pounds): 146 General Appearance: no apparent distress Cardiovascular: tachycardia Respiratory/Chest: decreased breath sounds Abdomen: distended Objective no change Migue Moreland MD Dec 31, 2018 13:12
[2018-12-31 16:00] VITALS: BP 108/70
--- NOTE | 2018-12-31 16:53 | Surgery Progress Note ---
Surgery Progress Note Subjective Additional Comments leukocytosis resolving. esr/crp high. exam unchanged. no acute events. Objective Last 24 Hour Vital Signs Date Time Temp Pulse Resp B/P (MAP) Pulse Ox O2 Delivery O2 Flow Rate FiO2 12/31/18 16:00 98.9 111 24 108/70 (83) 99 12/31/18 16:00 110 12/31/18 16:00 30 12/31/18 16:00 Mechanical Ventilator 12/31/18 15:00 111 27 30 12/31/18 13:02 109 27 30 12/31/18 12:00 99.7 109 24 98/65 (76) 98 12/31/18 12:00 111 12/31/18 12:00 30 12/31/18 12:00 Mechanical Ventilator 12/31/18 10:58 111 26 30 12/31/18 09:02 113 24 30 12/31/18 08:00 30 12/31/18 08:00 Mechanical Ventilator 12/31/18 08:00 114 12/31/18 08:00 98.7 114 24 98/61 (73) 98 12/31/18 06:48 112 26 30 12/31/18 05:15 111 25 30 12/31/18 04:00 30 12/31/18 04:00 Mechanical Ventilator 12/31/18 04:00 117 12/31/18 04:00 98.8 112 24 109/69 (82) 97 12/31/18 02:50 112 25 30 12/31/18 01:21 114 25 30 12/31/18 00:00 98.5 113 24 113/74 (87) 99 12/31/18 00:00 111 12/31/18 00:00 Mechanical Ventilator 12/30/18 23:00 112 29 30 12/30/18 21:25 110 25 30 12/30/18 20:00 30 12/30/18 20:00 Mechanical Ventilator 12/30/18 20:00 98.3 106 28 124/79 (94) 98 12/30/18 19:44 106 12/30/18 19:18 109 28 30 12/30/18 17:15 108 22 30 I&O Intake and Output 12/30/18 12/31/18 18:59 06:59 Intake Total 950 ml 1300 ml Output Total 1825 ml 750 ml Balance -875 ml 550 ml Intake Free Water 450 ml IV Total 300 ml 300 ml Tube Feeding 450 ml 550 ml Other 200 ml Output Urine Total 1475 ml 300 ml Stool Total 350 ml 450 ml # Voids 2 # Bowel Movements 1 Dressing: saturated Wound: other Drains: other Cardiovascular: RSR Respiratory: decreased breath sounds Abdomen: soft, present bowel sounds, non-distended Extremities: no cyanosis, other Laboratory Tests Test 12/31/18 04:00 12/31/18 09:34 White Blood Count 14.6 K/UL (4.8-10.8) H Red Blood Count 3.39 M/UL (4.70-6.10) L Hemoglobin 10.4 G/DL (14.2-18.0) L Hematocrit 30.8 % (42.0-52.0) L Mean Corpuscular Volume 91 FL (80-99) Mean Corpuscular Hemoglobin 30.7 PG (27.0-31.0) Mean Corpuscular Hemoglobin Concent 33.8 G/DL (32.0-36.0) Red Cell Distribution Width 15.1 % (11.6-14.8) H Platelet Count 222 K/UL (150-450) Mean Platelet Volume 8.4 FL (6.5-10.1) Neutrophils (%) (Auto) 82.7 % (45.0-75.0) H Lymphocytes (%) (Auto) 10.6 % (20.0-45.0) L Monocytes (%) (Auto) 2.4 % (1.0-10.0) Eosinophils (%) (Auto) 3.3 % (0.0-3.0) H Basophils (%) (Auto) 0.9 % (0.0-2.0) Erythrocyte Sedimentation Rate 93 MM/HR (0-20) H Sodium Level 134 MMOL/L (136-145) L Potassium Level 4.8 MMOL/L (3.5-5.1) Chloride Level 99 MMOL/L (98-107) Carbon Dioxide Level 23 MMOL/L (21-32) Anion Gap 12 mmol/L (5-15) Blood Urea Nitrogen 31 mg/dL (7-18) H Creatinine 0.8 MG/DL (0.55-1.30) Estimat Glomerular Filtration Rate mL/min (>60) Glucose Level 204 MG/DL (74-106) H Calcium Level 9.3 MG/DL (8.5-10.1) Phosphorus Level 3.2 MG/DL (2.5-4.9) Magnesium Level 1.8 MG/DL (1.8-2.4) Total Bilirubin 0.2 MG/DL (0.2-1.0) Aspartate Amino Transf (AST/SGOT) 17 U/L (15-37) Alanine Aminotransferase (ALT/SGPT) 11 U/L (12-78) L Alkaline Phosphatase 162 U/L (46-116) H C-Reactive Protein, Quantitative 22.7 mg/dL (0.00-0.90) H Total Protein 8.7 G/DL (6.4-8.2) H Albumin 1.6 G/DL (3.4-5.0) L Globulin 7.1 g/dL Albumin/Globulin Ratio 0.2 (1.0-2.7) L Stool Occult Blood Negative (NEGATIVE) Plan Problems: (1) Decubitus skin ulcer Assessment & Plan: Pt presented on admission with multiple pressure injuries and Skin erosion. Pt has trach and no evidence of skin breakdown noted under trach collar. Unstageable pressure injury noted to L earlobe. Stable dry brown eschar noted(L) 0.7cm x (W)0.5cm. Gross erythema with denudement and multiple scattered partial thickness wounds noted to buttocks and base of scrotum extending into both posterior upper thighs.Moderate amt sanguineous exudate noted upon removal of drsgs. 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 Moderate amt sanguineous exudate noted (L)3cm x (W)1cm x (D)7.4cm.Erythema periwound secondary to skin erosions. Partially opened DTPI L ischium .Base of wound purple,fluctuant with red borders.Open areas at base of this wound are beefy red in colour.Moderate amt sanguineous exudate noted.(L)7cm x (W)6.8cm. DTPI R ischium.Wound is fluctuant-purple in center with surrounding Maroon colour, and is partially opened with a small area of 5% that is necrotic.(L) 6.5cm x (W)5.5cm. Red skin erosion periwound. Partial thickness pressure injury L hip. Base of wound is moist -viable. Edges adherent and dry. Periwound without erythema or induration(L)1.2cm x (W)0.5cm. Elongate partial thickness wound posterior upper L thigh .Base of wound is moist -viable .Small amt sanguineous exudate noted. (+) maceration along borders. Erythema without induration or elevation in skin temp noted.(L)2cm x (W )9.4cm. DTPI noted to R heel .Base of injury is indurated and maroon in colour. Periwound is firm without erythema. (L)1.5cm x (W)1cm.R heel without evidence of skin breakdown. Tx.Plan: Cleanse Sacrum with Saline. Loosely pack with Hydrogel impregnated Kerlix. Apply Triad Paste periwound. Cover with ABD pad. Daily and prn. Cleanse R and L ischial wounds with Saline. Apply Moisture Barrier Paste.Cover with abd pads Daily and prn. Apply Moisture Barrier to skin erosions on buttocks,scrotum, and posterior aspects of both thighs.Cover with ABD pad daily and prn. Cleanse wound L hip with Saline. Apply Moisture Barrier paste .Cover with Optifoam drsg Daily and prn. Cleanse wound posterior upper L thigh with saline .Apply Hydrogel. Cover with Optifoam drsg Daily and prn. Apply Cavilon Skin Barrier to L earlobe daily. Please monitor. Apply Cavilon Skin Barrier to L heel. Cover with Optifoam drsg. Change every 7 days and prn. Apply Cavilon Skin Barrier to R heel. Cover with Optifoam drsg .Change every 7 days and prn. Air fluidized mattress. Reposition every 2hours or as tolerated. Off-load heels with pillow. (2) Acute and chronic respiratory failure Assessment & Plan: cont with breathing treatments trach stable trach site clean will change dressings daily (3) Acute pancreatitis Assessment & Plan: Findings consistent with uncomplicated nonnecrotizing acute pancreatitis. No evidence of associated peripancreatic abscess Surgical changes as described, including right lower quadrant ileostomy, subtotal colectomy with Haroldo procedure. Wall thickening of the Haroldo pouch. This could indicate inflammation. However, this is also present on both of the prior 2 exams and may be baseline for this patient Evidence of mild anasarca, with edema of the subcutaneous fat. This is a new finding Chronic appearing decubitus changes of the bilateral ischia. Correlate with clinical findings Complete left lower lobe consolidation. This is similar to both of the prior CTs , and is likely a chronic finding. There is progressive chronic interstitial fibrotic change involving the right middle lobe. There is also right lower lobe granulomatous calcification Extensive pulmonary parenchymal opacities bilaterally may reflect acute inflammation/infection, edema, progressive chronic scarring, or combination of the above. These are considerably more extensive than on the prior study Trace bilateral pleural fluid New finding of nonobstructive right renal collecting system calculs 4 mm calculus within the bladder lumen. This may represent a bladder calculus, a calculus and left ureteral orifice, or recently passed stone. If either of the latter, no evidence of resultant hydronephrosis or hydroureter Suprapubic catheter. This is a new finding since the 2016 exams. Interim removal of previously demonstrated Bledsoe catheter Gastrostomy Left renal cysts. Subcentimeter low-attenuation right renal lesions, too small to characterize, most likely benign simple cysts. No further follow-up necessary elevated amylase/lipase trending down leukocytosis GNR Bacteremia transfused anemia Unfortunately patient not able to participate in exam and difficult to identify if clinically pancreatitis or just laboratory data. Recent CT with uncomplicated pancreatitis but enzymes still remain elevated. Patient tolerated tube feeds. Patient with gram-negative belle bacteremia likely from UTI. Patient remains febrile intermittently with worsening leukocytosis on IV antibiotics. -no acute surgical intervention planned -transfuse as per hematology -Abx as per ID -trend lip/[place] - recent finding based on CT given patient cannot given history or participate in exam. CT with uncomplicated pancreatitis. repeat CT A/P okay for diet / feeds for now. IV fluids Javier Ricardo Dec 31, 2018 16:53
--- NOTE | 2018-12-31 19:00 | Progress Note ---
DATE: 12/30/2018 SUBJECTIVE: The patient . PHYSICAL EXAMINATION: GENERAL: The patient is awake and alert. His trachea . VITAL SIGNS: Blood pressure is 124/79, pulse is 106, respirations of 28, and temperature was 98.3. HEENT: Eyes were normal. ENT, mucous membranes are moist and intact. NECK: Supple with no JVD without lymph nodes. Tracheostomy site is clean. LUNGS: Clear without rhonchi, rales, or wheezes. Secretions are small, thin, and mcclure. HEART: Normal sounds with regular beats. ABDOMEN: Soft and nontender with normal bowel sounds. EXTREMITIES: Warm without cyanosis, clubbing, or edema. LABORATORY DATA: His hemoglobin is 11.2, hematocrit 32.7 with MCV of 90, WBC of 15.5, and platelets . His BUN and creatinine 28 and 0.8 respectively. His sodium is 134, potassium 5.7, chloride 101, and CO2 is 21. HDL 46. LDL is 241. IMPRESSION AND PLAN: The patient has persistent sepsis . We will continue with his imaging study. CT scan of the abdomen and pelvis was done today. thickening suggestive of abdomen and pelvis abscess and chronic bilateral atelectasis each lung and is growing fibrosis . Neema Hutchins M.D. DR: NAYELY JOB#: [id number] CC:
--- NOTE | 2018-12-31 19:05 | NUR ---
HAND-OFF: Report given to SHAKIR Smith.
--- NOTE | 2018-12-31 19:06 | NUR ---
NURSE NOTES: Received patient from SHAKIR Watkins. Patient is awake, and making eye contract and tracking. On trach Portex 7 to vent with settings of AC:18, TV:500, FiO2:30% PEEP:5 showings no signs and symptoms of distress. GTube feeding is at goal of Glucerna 1.5 @ 45ml/hr and flushing well. PICC line patent and running NS TKO. Suprapubic catheter is intact and draining. Bed on lowest position and bed alarm is activated. Will continue plan of care.
--- NOTE | 2018-12-31 19:36 | NUR ---
RESPIRATORY NOTE: Received pt on AC 18, 500VT, 30%, PEEP +5. Pt is trach-dependent w/ a cuffed, Portex 7 tube. Pt is currently asleep, follows commands when awake. B/S kaylynn. rhonchi, sxn small to moderate amounts of thick/thin, pale-yellow secretions. Vent plugged into red outlet, ambubag & spare trach kit at bedside. Pt in no apparent distress at this time. Will continue plan of care.
--- NOTE | 2018-12-31 19:47 | Cardiology Progress Note ---
Assessment/Plan Assessment/Plan currently in sinus tach, no ectopy Subjective Subjective the patient is on vent and trach, he is not interacting, making some sounds Objective Last 24 Hour Vital Signs Date Time Temp Pulse Resp B/P (MAP) Pulse Ox O2 Delivery O2 Flow Rate FiO2 12/31/18 19:35 112 23 30 12/31/18 17:00 108 27 30 12/31/18 16:00 98.9 111 24 108/70 (83) 99 12/31/18 16:00 110 12/31/18 16:00 30 12/31/18 16:00 Mechanical Ventilator 12/31/18 15:00 111 27 30 12/31/18 13:02 109 27 30 12/31/18 12:00 99.7 109 24 98/65 (76) 98 12/31/18 12:00 111 12/31/18 12:00 30 12/31/18 12:00 Mechanical Ventilator 12/31/18 10:58 111 26 30 12/31/18 09:02 113 24 30 12/31/18 08:00 30 12/31/18 08:00 Mechanical Ventilator 12/31/18 08:00 114 12/31/18 08:00 98.7 114 24 98/61 (73) 98 12/31/18 06:48 112 26 30 12/31/18 05:15 111 25 30 12/31/18 04:00 30 12/31/18 04:00 Mechanical Ventilator 12/31/18 04:00 117 12/31/18 04:00 98.8 112 24 109/69 (82) 97 12/31/18 02:50 112 25 30 12/31/18 01:21 114 25 30 12/31/18 00:00 98.5 113 24 113/74 (87) 99 12/31/18 00:00 111 12/31/18 00:00 Mechanical Ventilator 12/30/18 23:00 112 29 30 12/30/18 21:25 110 25 30 12/30/18 20:00 30 12/30/18 20:00 Mechanical Ventilator 12/30/18 20:00 98.3 106 28 124/79 (94) 98 General Appearance: on vent, other - unresponsive Neck: no JVD, other - tracheostomy Rhythm: ST Cardiovascular: tachycardia Respiratory/Chest: crackles/rales Abdomen: soft Intake and Output 12/30/18 12/31/18 18:59 06:59 Intake Total 950 ml 1300 ml Output Total 1825 ml 750 ml Balance -875 ml 550 ml Intake Free Water 450 ml IV Total 300 ml 300 ml Tube Feeding 450 ml 550 ml Other 200 ml Output Urine Total 1475 ml 300 ml Stool Total 350 ml 450 ml # Voids 2 # Bowel Movements 1 Laboratory Tests Test 12/31/18 04:00 12/31/18 09:34 White Blood Count 14.6 K/UL (4.8-10.8) H Red Blood Count 3.39 M/UL (4.70-6.10) L Hemoglobin 10.4 G/DL (14.2-18.0) L Hematocrit 30.8 % (42.0-52.0) L Mean Corpuscular Volume 91 FL (80-99) Mean Corpuscular Hemoglobin 30.7 PG (27.0-31.0) Mean Corpuscular Hemoglobin Concent 33.8 G/DL (32.0-36.0) Red Cell Distribution Width 15.1 % (11.6-14.8) H Platelet Count 222 K/UL (150-450) Mean Platelet Volume 8.4 FL (6.5-10.1) Neutrophils (%) (Auto) 82.7 % (45.0-75.0) H Lymphocytes (%) (Auto) 10.6 % (20.0-45.0) L Monocytes (%) (Auto) 2.4 % (1.0-10.0) Eosinophils (%) (Auto) 3.3 % (0.0-3.0) H Basophils (%) (Auto) 0.9 % (0.0-2.0) Erythrocyte Sedimentation Rate 93 MM/HR (0-20) H Sodium Level 134 MMOL/L (136-145) L Potassium Level 4.8 MMOL/L (3.5-5.1) Chloride Level 99 MMOL/L (98-107) Carbon Dioxide Level 23 MMOL/L (21-32) Anion Gap 12 mmol/L (5-15) Blood Urea Nitrogen 31 mg/dL (7-18) H Creatinine 0.8 MG/DL (0.55-1.30) Estimat Glomerular Filtration Rate mL/min (>60) Glucose Level 204 MG/DL (74-106) H Calcium Level 9.3 MG/DL (8.5-10.1) Phosphorus Level 3.2 MG/DL (2.5-4.9) Magnesium Level 1.8 MG/DL (1.8-2.4) Total Bilirubin 0.2 MG/DL (0.2-1.0) Aspartate Amino Transf (AST/SGOT) 17 U/L (15-37) Alanine Aminotransferase (ALT/SGPT) 11 U/L (12-78) L Alkaline Phosphatase 162 U/L (46-116) H C-Reactive Protein, Quantitative 22.7 mg/dL (0.00-0.90) H Total Protein 8.7 G/DL (6.4-8.2) H Albumin 1.6 G/DL (3.4-5.0) L Globulin 7.1 g/dL Albumin/Globulin Ratio 0.2 (1.0-2.7) L Stool Occult Blood Negative (NEGATIVE) Microbiology Date/Time Source Procedure Growth Status 12/30/18 17:37 Stool Clostridium difficile Toxin Assay - Final Complete Objective Telemetry sinus rhythm Krista Gomez MD Dec 31, 2018 19:47
[2018-12-31 20:00] VITALS: BP 107/65
[2018-12-31] MEDS: Dyna-Hex 2% Top Sol 2oz TOPIC SCH (20:11)
[2019-01-01] VITALS: BP 99/60
[2019-01-01 04:00] VITALS: BP 105/71
[2019-01-01] MEDS: NovoLOG Insulin Flexpen SUBQ SCH ×4 (05:24→23:56)
[2019-01-01 06:03] LABS: BASOPHILS % (AUTO) 0.7 % (0.0-2.0); EOSINOPHILS % (AUTO) 3.6 % (0.0-3.0); HEMATOCRIT 27.9 % (42.0-52.0); HEMOGLOBIN 9.3 G/DL (14.2-18.0); LYMPHOCYTES % (AUTO) 9.6 % (20.0-45.0); MEAN CORPUSCULAR VOLUME 91 FL (80-99); MONOCYTES % (AUTO) 4.6 % (1.0-10.0); NEUTROPHILS % (AUTO) 81.5 % (45.0-75.0); PLATELET COUNT 214 K/UL (150-450); RED BLOOD COUNT 3.08 M/UL (4.70-6.10); RED CELL DISTRIBUTION WIDTH 14.9 % (11.6-14.8); WHITE BLOOD COUNT 14.3 K/UL (4.8-10.8)
[2019-01-01 06:17] LABS: ALANINE AMINOTRANSFERASE 12 U/L (12-78); ALBUMIN 1.5 G/DL (3.4-5.0); ALBUMIN/GLOBULIN RATIO 0.2 (1.0-2.7); ALKALINE PHOSPHATASE 128 U/L (46-116); AMYLASE 165 U/L (25-115); ANION GAP 9 mmol/L (5-15); ASPARTATE AMINO TRANSFERASE 16 U/L (15-37); BILIRUBIN,TOTAL 0.2 MG/DL (0.2-1.0); BLOOD UREA NITROGEN 32 mg/dL (7-18); CALCIUM 8.1 MG/DL (8.5-10.1); CARBON DIOXIDE 24 MMOL/L (21-32); CHLORIDE 103 MMOL/L (98-107); CREATININE 0.7 MG/DL (0.55-1.30); POTASSIUM 5.3 MMOL/L (3.5-5.1); SODIUM 136 MMOL/L (136-145)
--- NOTE | 2019-01-01 06:32 | NUR ---
RESPIRATORY NOTE: Received pt on AC 18, 500VT, 30%, PEEP +5. Pt trach-dependent w/ a cuffed, Portex 7 tube. Pt is sleeping, minimal response. B/S kaylynn. rhonchi, sxn scant amounts of thick white-yellow secretions without incidents. Alarms are set and audible. Vent plugged into red outlet, ambubag & spare trach kit at bedside. Pt in no apparent distress at this time. Will continue plan of care.
--- NOTE | 2019-01-01 07:15 | NUR ---
HAND-OFF: Report given to SHAKIR Watkins.
[2019-01-01 08:00] VITALS: BP 101/71
--- NOTE | 2019-01-01 08:00 | Progress Note ---
DATE: 12/31/2018 "NOTE: POOR AUDIO QUALITY" SUBJECTIVE: The patient is obtunded, afebrile, and hemodynamically stable. PHYSICAL EXAMINATION: VITAL SIGNS: Blood pressure is 107/65, his pulse is 107, respirations of 30, and temperature of 98.9 degrees. HEENT: Eyes were normal. ENT, mucous membranes were moist and intact. NECK: Supple with no JVD without lymph nodes. Tracheostomy site is clean. LUNGS: Bilateral rhonchi and rales at both bases. HEART: Normal sounds with regular beats. There is tachycardia at rest. ABDOMEN: Soft and nontender with normal bowel sounds. Gastrostomy site is clean. EXTREMITIES: Warm without cyanosis, clubbing, or edema. LABORATORY AND IMAGING DATA: Hemoglobin is 10.4, hematocrit was 30.8 with MCV of 91, WBC of 14.6, and platelets are 222,000. Latest imaging study is the CT scan of abdomen and pelvis that revealed suspected acute cholecystitis, which was draining and osteomyelitis related to the ischium with (acute osteomyelitis); ilium, the patient has sclerosed vein; chronic dense consolidation and extensive fibrosis at base of the anterior right lung; hepatomegaly; gastrostomy; excision of the skin; nonspecific retroperitoneal node; and suprapubic catheter Meera albicans. IMPRESSION: Diabetes mellitus with decubitus ulcer, infected because of the patient's tachycardia. Intermittently, the patient will be assessed clinically. Neema Hutchins M.D. DR: NAYELY JOB#: [id number] CC:
[2019-01-01] MEDS: Levemir Flexpen SUBQ SCH ×2 (08:09→22:03)
[2019-01-01] MEDS: Heparin 5000 units/ml inj SUBQ SCH ×2 (08:10→22:05)
--- NOTE | 2019-01-01 09:06 | General Progress Note ---
Assessment/Plan Problem List: (1) Tracheostomy in place ICD Codes: Z98.89 - Other specified postprocedural states SNOMED: 291457679 (2) Acute and chronic respiratory failure ICD Codes: J96.20 - Acute and chronic respiratory failure, unspecified whether with hypoxia or hypercapnia SNOMED: 46130561, 05464134 (3) Decubitus ulcer of sacral region, stage 2 ICD Codes: L89.152 - Pressure ulcer of sacral region, stage 2 SNOMED: 079949511, 456229250 (4) Cerebral vascular disease ICD Codes: I67.9 - Cerebrovascular disease, unspecified SNOMED: 19793854 (5) Colostomy care ICD Codes: Z43.3 - Encounter for attention to colostomy SNOMED: 420514401 (6) Hypertension ICD Codes: I10 - Essential (primary) hypertension SNOMED: 37407120 (7) Diabetes mellitus, type II ICD Codes: E11.9 - Type 2 diabetes mellitus without complications SNOMED: 30257528 (8) Feeding by G-tube ICD Codes: Z93.1 - Gastrostomy status SNOMED: 122345564, 357604843 (9) Anemia ICD Codes: D64.9 - Anemia, unspecified SNOMED: 084743193 (10) Pancreatitis ICD Codes: K85.90 - Acute pancreatitis without necrosis or infection, unspecified SNOMED: 98559766 Assessment/Plan Occult blood stool positive >>1/3>>> repeat stool ob fu CBC Hepatitis panel negative Pancreatitis secondary to hypertriglyceridemia Elevated CA 19, mild Repeat lipid panel shows hypertriglyceridemia TriCor and lopid Stable H&H - PRN transfusions ppi daily GTFs per RD repeat lipase Supportive care Subjective ROS Limited/Unobtainable: No Allergies: Coded Allergies: PENICILLINS (Unverified Allergy, Unknown, 02/26/16) POLYMYXIN B (Unverified Allergy, Unknown, 02/26/16) VANCOMYCIN (Unverified Allergy, Unknown, 02/26/16) Objective Last 24 Hour Vital Signs Date Time Temp Pulse Resp B/P (MAP) Pulse Ox O2 Delivery O2 Flow Rate FiO2 01/01/19 06:32 115 27 30 01/01/19 05:13 116 25 30 01/01/19 04:00 Mechanical Ventilator 01/01/19 04:00 99.5 116 22 105/71 (82) 98 01/01/19 04:00 30 01/01/19 03:32 113 01/01/19 03:30 110 24 30 01/01/19 00:50 104 25 30 01/01/19 00:00 99.0 107 25 99/60 (73) 98 01/01/19 00:00 Mechanical Ventilator 12/31/18 23:42 105 28 30 12/31/18 23:34 106 12/31/18 20:57 111 29 30 12/31/18 20:00 Mechanical Ventilator 12/31/18 20:00 30 12/31/18 20:00 98.9 107 30 107/65 (79) 98 12/31/18 19:35 112 23 30 12/31/18 19:34 111 12/31/18 17:00 108 27 30 12/31/18 16:00 98.9 111 24 108/70 (83) 99 12/31/18 16:00 110 12/31/18 16:00 30 12/31/18 16:00 Mechanical Ventilator 12/31/18 15:00 111 27 30 12/31/18 13:02 109 27 30 12/31/18 12:00 99.7 109 24 98/65 (76) 98 12/31/18 12:00 111 12/31/18 12:00 30 12/31/18 12:00 Mechanical Ventilator 12/31/18 10:58 111 26 30 Intake and Output 12/31/18 01/01/19 19:00 07:00 Intake Total 1045 ml 1290 ml Output Total 800 ml 1250 ml Balance 245 ml 40 ml Intake Free Water 450 ml 150 ml IV Total 300 ml Tube Feeding 595 ml 540 ml Other 300 ml Output Urine Total 400 ml 500 ml Stool Total 400 ml 750 ml Laboratory Tests 12/31/18 09:34: Stool Occult Blood Negative 01/01/19 04:00: White Blood Count 14.3H, Red Blood Count 3.08L, Hemoglobin 9.3L, Hematocrit 27.9L, Mean Corpuscular Volume 91, Mean Corpuscular Hemoglobin 30.2, Mean Corpuscular Hemoglobin Concent 33.3, Red Cell Distribution Width 14.9H, Platelet Count 214, Mean Platelet Volume 7.8, Neutrophils (%) (Auto) 81.5H, Lymphocytes (%) (Auto) 9.6L, Monocytes (%) (Auto) 4.6, Eosinophils (%) (Auto) 3.6H, Basophils (%) (Auto) 0.7, Sodium Level 136, Potassium Level 5.3H, Chloride Level 103, Carbon Dioxide Level 24, Anion Gap 9, Blood Urea Nitrogen 32H, Creatinine 0.7, Estimat Glomerular Filtration Rate , Glucose Level 151H, Calcium Level 8.1L, Total Bilirubin 0.2, Aspartate Amino Transf (AST/SGOT) 16, Alanine Aminotransferase (ALT/SGPT) 12, Alkaline Phosphatase 128H, Total Protein 8.3H, Albumin 1.5L, Globulin 6.8, Albumin/Globulin Ratio 0.2L, Amylase Level 165H, Lipase 997H Height (Feet): 5 Height (Inches): 8.00 Weight (Pounds): 146 General Appearance: no apparent distress EENT: normal ENT inspection Neck: supple Cardiovascular: normal rate Respiratory/Chest: decreased breath sounds Abdomen: normal bowel sounds, non tender, soft Extremities: non-tender Benjamin Jackson MD Jan 01, 2019 09:06
--- NOTE | 2019-01-01 09:36 | NUR ---
NURSE NOTES: Contacted Dr. Jackson, noted as ordering physician of 01/01/19 [facility], patient's new potassium level is 5.3. Informed Dr. Jackson and inquired if would like to order anything regarding this at this time, Dr. Jackson acknowledged and stated, "No, let's observe." Noted. Charge nurse made aware. Will continue to monitor patient.
[2019-01-01] MEDS ORDERED: Sodium Polystyrene Sulfon/Sorb 15gm/60ml Susp ORAL ONE (11:00)
--- NOTE | 2019-01-01 11:01 | NUR ---
NURSE NOTES: Spoke with Dr. Hutchins via telephone. Informed MD that patient's suprapubic catheter is leaking. Dr. Hutchins acknowledged and informed this nurse that he will inform urologist himself. Noted. Charge nurse made aware. Will continue to monitor patient.
--- NOTE | 2019-01-01 11:55 | Pulmonolgy Critical Care Note ---
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 Assessment/Plan: hemodynamically getting better Respiratory: monitor respiratory rate, adjust FIO2, CXR Renal: F/U I&O, check electrolytes Infectious Disease: check cultures, add antibiotics Gastrointestinal: continue feedings/current rate Endocrine: monitor blood sugar Hematologic: monitor H/H Affect: PRN ativan Prophylaxis: Protonix Notes Reviewed: 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 with: nurses, consultants Critical Care - Objective Last 24 Hour Vital Signs Date Time Temp Pulse Resp B/P (MAP) Pulse Ox O2 Delivery O2 Flow Rate FiO2 01/01/19 10:41 112 26 30 01/01/19 08:45 114 25 30 01/01/19 08:00 30 01/01/19 08:00 Mechanical Ventilator 01/01/19 08:00 98.6 115 22 101/71 (81) 98 01/01/19 08:00 113 01/01/19 06:32 115 27 30 01/01/19 05:13 116 25 30 01/01/19 04:00 Mechanical Ventilator 01/01/19 04:00 99.5 116 22 105/71 (82) 98 01/01/19 04:00 30 01/01/19 03:32 113 01/01/19 03:30 110 24 30 01/01/19 00:50 104 25 30 01/01/19 00:00 99.0 107 25 99/60 (73) 98 01/01/19 00:00 Mechanical Ventilator 12/31/18 23:42 105 28 30 12/31/18 23:34 106 12/31/18 20:57 111 29 30 12/31/18 20:00 Mechanical Ventilator 12/31/18 20:00 30 12/31/18 20:00 98.9 107 30 107/65 (79) 98 12/31/18 19:35 112 23 30 12/31/18 19:34 111 12/31/18 17:00 108 27 30 12/31/18 16:00 98.9 111 24 108/70 (83) 99 12/31/18 16:00 110 12/31/18 16:00 30 12/31/18 16:00 Mechanical Ventilator 12/31/18 15:00 111 27 30 12/31/18 13:02 109 27 30 12/31/18 12:00 99.7 109 24 98/65 (76) 98 12/31/18 12:00 111 12/31/18 12:00 30 12/31/18 12:00 Mechanical Ventilator Status: awake Heart: HR/BP stable, regular Abdomen: non-tender, feeding tube Extremities: edema Decubiti: location Micro: Microbiology Date/Time Source Procedure Growth Status 12/30/18 17:37 Stool Clostridium difficile Toxin Assay - Final Complete 12/30/18 17:37 Sacral Wound Gram Stain - Final Resulted 12/30/18 17:37 Sacral Wound Wound Culture - Preliminary Resulted Accucheck: 252 Critical Care - Subjective ROS Limited/Unobtainable: Yes Condition: critical EKG Rhythm: Sinus Rhythm FI02: 30 Vent Support Breath Rate: 18 Vent Support Mode: AC Vent Tidal Volume: 500 Sputum Amount: Small PEEP: 5.0 PIP: 32 Tube Feeding Amount: 45 I&O: Intake and Output 12/31/18 01/01/19 19:00 07:00 Intake Total 1045 ml 1290 ml Output Total 800 ml 1250 ml Balance 245 ml 40 ml Intake Free Water 450 ml 150 ml IV Total 300 ml Tube Feeding 595 ml 540 ml Other 300 ml Output Urine Total 400 ml 500 ml Stool Total 400 ml 750 ml Labs: Laboratory Tests Test 01/01/19 04:00 White Blood Count 14.3 K/UL (4.8-10.8) H Red Blood Count 3.08 M/UL (4.70-6.10) L Hemoglobin 9.3 G/DL (14.2-18.0) L Hematocrit 27.9 % (42.0-52.0) L Mean Corpuscular Volume 91 FL (80-99) Mean Corpuscular Hemoglobin 30.2 PG (27.0-31.0) Mean Corpuscular Hemoglobin Concent 33.3 G/DL (32.0-36.0) Red Cell Distribution Width 14.9 % (11.6-14.8) H Platelet Count 214 K/UL (150-450) Mean Platelet Volume 7.8 FL (6.5-10.1) Neutrophils (%) (Auto) 81.5 % (45.0-75.0) H Lymphocytes (%) (Auto) 9.6 % (20.0-45.0) L Monocytes (%) (Auto) 4.6 % (1.0-10.0) Eosinophils (%) (Auto) 3.6 % (0.0-3.0) H Basophils (%) (Auto) 0.7 % (0.0-2.0) Sodium Level 136 MMOL/L (136-145) Potassium Level 5.3 MMOL/L (3.5-5.1) H Chloride Level 103 MMOL/L (98-107) Carbon Dioxide Level 24 MMOL/L (21-32) Anion Gap 9 mmol/L (5-15) Blood Urea Nitrogen 32 mg/dL (7-18) H Creatinine 0.7 MG/DL (0.55-1.30) Estimat Glomerular Filtration Rate mL/min (>60) Glucose Level 151 MG/DL (74-106) H Calcium Level 8.1 MG/DL (8.5-10.1) L Total Bilirubin 0.2 MG/DL (0.2-1.0) Aspartate Amino Transf (AST/SGOT) 16 U/L (15-37) Alanine Aminotransferase (ALT/SGPT) 12 U/L (12-78) Alkaline Phosphatase 128 U/L (46-116) H Total Protein 8.3 G/DL (6.4-8.2) H Albumin 1.5 G/DL (3.4-5.0) L Globulin 6.8 g/dL Albumin/Globulin Ratio 0.2 (1.0-2.7) L Amylase Level 165 U/L (25-115) H Lipase 997 U/L (73-393) H Abhishek Guerra MD Jan 01, 2019 11:54
[2019-01-01 12:00] VITALS: BP 114/66
--- NOTE | 2019-01-01 13:17 | Surgery Progress Note ---
Surgery Progress Note Subjective Additional Comments no acute events. exam unchanged. labs noted. Objective Last 24 Hour Vital Signs Date Time Temp Pulse Resp B/P (MAP) Pulse Ox O2 Delivery O2 Flow Rate FiO2 01/01/19 12:30 109 25 30 01/01/19 12:30 112 25 Mechanical Ventilator 30 01/01/19 12:00 30 01/01/19 12:00 99.9 105 22 114/66 (82) 99 01/01/19 12:00 Mechanical Ventilator 01/01/19 10:41 112 26 30 01/01/19 08:45 114 25 30 01/01/19 08:00 30 01/01/19 08:00 Mechanical Ventilator 01/01/19 08:00 98.6 115 22 101/71 (81) 98 01/01/19 08:00 113 01/01/19 06:32 115 27 30 01/01/19 05:13 116 25 30 01/01/19 04:00 Mechanical Ventilator 01/01/19 04:00 99.5 116 22 105/71 (82) 98 01/01/19 04:00 30 01/01/19 03:32 113 01/01/19 03:30 110 24 30 01/01/19 00:50 104 25 30 01/01/19 00:00 99.0 107 25 99/60 (73) 98 01/01/19 00:00 Mechanical Ventilator 12/31/18 23:42 105 28 30 12/31/18 23:34 106 12/31/18 20:57 111 29 30 12/31/18 20:00 Mechanical Ventilator 12/31/18 20:00 30 12/31/18 20:00 98.9 107 30 107/65 (79) 98 12/31/18 19:35 112 23 30 12/31/18 19:34 111 12/31/18 17:00 108 27 30 12/31/18 16:00 98.9 111 24 108/70 (83) 99 12/31/18 16:00 110 12/31/18 16:00 30 12/31/18 16:00 Mechanical Ventilator 12/31/18 15:00 111 27 30 I&O Intake and Output 12/31/18 01/01/19 19:00 07:00 Intake Total 1045 ml 1290 ml Output Total 800 ml 1250 ml Balance 245 ml 40 ml Intake Free Water 450 ml 150 ml IV Total 300 ml Tube Feeding 595 ml 540 ml Other 300 ml Output Urine Total 400 ml 500 ml Stool Total 400 ml 750 ml Dressing: saturated Wound: other Drains: other Cardiovascular: RSR Respiratory: decreased breath sounds Abdomen: soft, present bowel sounds, non-distended Extremities: no cyanosis, other Laboratory Tests Test 01/01/19 04:00 White Blood Count 14.3 K/UL (4.8-10.8) H Red Blood Count 3.08 M/UL (4.70-6.10) L Hemoglobin 9.3 G/DL (14.2-18.0) L Hematocrit 27.9 % (42.0-52.0) L Mean Corpuscular Volume 91 FL (80-99) Mean Corpuscular Hemoglobin 30.2 PG (27.0-31.0) Mean Corpuscular Hemoglobin Concent 33.3 G/DL (32.0-36.0) Red Cell Distribution Width 14.9 % (11.6-14.8) H Platelet Count 214 K/UL (150-450) Mean Platelet Volume 7.8 FL (6.5-10.1) Neutrophils (%) (Auto) 81.5 % (45.0-75.0) H Lymphocytes (%) (Auto) 9.6 % (20.0-45.0) L Monocytes (%) (Auto) 4.6 % (1.0-10.0) Eosinophils (%) (Auto) 3.6 % (0.0-3.0) H Basophils (%) (Auto) 0.7 % (0.0-2.0) Sodium Level 136 MMOL/L (136-145) Potassium Level 5.3 MMOL/L (3.5-5.1) H Chloride Level 103 MMOL/L (98-107) Carbon Dioxide Level 24 MMOL/L (21-32) Anion Gap 9 mmol/L (5-15) Blood Urea Nitrogen 32 mg/dL (7-18) H Creatinine 0.7 MG/DL (0.55-1.30) Estimat Glomerular Filtration Rate mL/min (>60) Glucose Level 151 MG/DL (74-106) H Calcium Level 8.1 MG/DL (8.5-10.1) L Total Bilirubin 0.2 MG/DL (0.2-1.0) Aspartate Amino Transf (AST/SGOT) 16 U/L (15-37) Alanine Aminotransferase (ALT/SGPT) 12 U/L (12-78) Alkaline Phosphatase 128 U/L (46-116) H Total Protein 8.3 G/DL (6.4-8.2) H Albumin 1.5 G/DL (3.4-5.0) L Globulin 6.8 g/dL Albumin/Globulin Ratio 0.2 (1.0-2.7) L Amylase Level 165 U/L (25-115) H Lipase 997 U/L (73-393) H Plan Problems: (1) Decubitus skin ulcer Assessment & Plan: Pt presented on admission with multiple pressure injuries and Skin erosion. Pt has trach and no evidence of skin breakdown noted under trach collar. Unstageable pressure injury noted to L earlobe. Stable dry brown eschar noted(L) 0.7cm x (W)0.5cm. Gross erythema with denudement and multiple scattered partial thickness wounds noted to buttocks and base of scrotum extending into both posterior upper thighs.Moderate amt sanguineous exudate noted upon removal of drsgs. 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 Moderate amt sanguineous exudate noted (L)3cm x (W)1cm x (D)7.4cm.Erythema periwound secondary to skin erosions. Partially opened DTPI L ischium .Base of wound purple,fluctuant with red borders.Open areas at base of this wound are beefy red in colour.Moderate amt sanguineous exudate noted.(L)7cm x (W)6.8cm. DTPI R ischium.Wound is fluctuant-purple in center with surrounding Maroon colour, and is partially opened with a small area of 5% that is necrotic.(L) 6.5cm x (W)5.5cm. Red skin erosion periwound. Partial thickness pressure injury L hip. Base of wound is moist -viable. Edges adherent and dry. Periwound without erythema or induration(L)1.2cm x (W)0.5cm. Elongate partial thickness wound posterior upper L thigh .Base of wound is moist -viable .Small amt sanguineous exudate noted. (+) maceration along borders. Erythema without induration or elevation in skin temp noted.(L)2cm x (W )9.4cm. DTPI noted to R heel .Base of injury is indurated and maroon in colour. Periwound is firm without erythema. (L)1.5cm x (W)1cm.R heel without evidence of skin breakdown. Tx.Plan: Cleanse Sacrum with Saline. Loosely pack with Hydrogel impregnated Kerlix. Apply Triad Paste periwound. Cover with ABD pad. Daily and prn. Cleanse R and L ischial wounds with Saline. Apply Moisture Barrier Paste.Cover with abd pads Daily and prn. Apply Moisture Barrier to skin erosions on buttocks,scrotum, and posterior aspects of both thighs.Cover with ABD pad daily and prn. Cleanse wound L hip with Saline. Apply Moisture Barrier paste .Cover with Optifoam drsg Daily and prn. Cleanse wound posterior upper L thigh with saline .Apply Hydrogel. Cover with Optifoam drsg Daily and prn. Apply Cavilon Skin Barrier to L earlobe daily. Please monitor. Apply Cavilon Skin Barrier to L heel. Cover with Optifoam drsg. Change every 7 days and prn. Apply Cavilon Skin Barrier to R heel. Cover with Optifoam drsg .Change every 7 days and prn. Air fluidized mattress. Reposition every 2hours or as tolerated. Off-load heels with pillow. (2) Acute and chronic respiratory failure Assessment & Plan: cont with breathing treatments trach stable trach site clean will change dressings daily (3) Acute pancreatitis Assessment & Plan: Findings consistent with uncomplicated nonnecrotizing acute pancreatitis. No evidence of associated peripancreatic abscess Surgical changes as described, including right lower quadrant ileostomy, subtotal colectomy with Haroldo procedure. Wall thickening of the Haroldo pouch. This could indicate inflammation. However, this is also present on both of the prior 2 exams and may be baseline for this patient Evidence of mild anasarca, with edema of the subcutaneous fat. This is a new finding Chronic appearing decubitus changes of the bilateral ischia. Correlate with clinical findings Complete left lower lobe consolidation. This is similar to both of the prior CTs , and is likely a chronic finding. There is progressive chronic interstitial fibrotic change involving the right middle lobe. There is also right lower lobe granulomatous calcification Extensive pulmonary parenchymal opacities bilaterally may reflect acute inflammation/infection, edema, progressive chronic scarring, or combination of the above. These are considerably more extensive than on the prior study Trace bilateral pleural fluid New finding of nonobstructive right renal collecting system calculs 4 mm calculus within the bladder lumen. This may represent a bladder calculus, a calculus and left ureteral orifice, or recently passed stone. If either of the latter, no evidence of resultant hydronephrosis or hydroureter Suprapubic catheter. This is a new finding since the 2016 exams. Interim removal of previously demonstrated Bledsoe catheter Gastrostomy Left renal cysts. Subcentimeter low-attenuation right renal lesions, too small to characterize, most likely benign simple cysts. No further follow-up necessary elevated amylase/lipase trending down leukocytosis GNR Bacteremia transfused anemia Unfortunately patient not able to participate in exam and difficult to identify if clinically pancreatitis or just laboratory data. Recent CT with uncomplicated pancreatitis but enzymes still remain elevated. Patient tolerated tube feeds. Patient with gram-negative belle bacteremia likely from UTI. Patient remains febrile intermittently with worsening leukocytosis on IV antibiotics. -no acute surgical intervention planned -transfuse as per hematology -Abx as per ID -trend lip/[place] - recent finding based on CT given patient cannot given history or participate in exam. CT with uncomplicated pancreatitis. repeat CT A/P okay for diet / feeds for now. IV fluids Javier Ricardo Jan 01, 2019 13:17
--- NOTE | 2019-01-01 13:31 | Nephrology Progress Note ---
Assessment/Plan Problem List: (1) Hypercalcemia (2) ATN (acute tubular necrosis) (3) Anemia (4) Feeding by G-tube (5) Acute and chronic respiratory failure (6) UTI (urinary tract infection) (7) Hyponatremia Assessment in [facility] - Glucose better controlled Periodic high K Patient have mainly Pre Renal Azotemia with possible underlying CKD- Low Na partly depletional, partly due to Hyperglycemia RESOLVED Other conditions as outlined: (1) Acute and chronic respiratory failure ([id number]) (2) Sepsis (3) Malnutrition and HypoAlbuminemia (4) UTI (urinary tract infection) (5) Anemia (6) Diabetes mellitus, type II (7) Colostomy care (8) Cerebral vascular disease (9) Decubitus ulcer of sacral region, stage 2 (10) Feeding by G-tube (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 Plan K & Phos supplement as needed Levemir and adjust dose Stop Digoxin stop Atenolol Stop Cardiazem Pressors as needed Albumin bolus AREDIA 90 mg for HYPERCALCEMIA on 12/23 - Fu Calcium level will redose Kayexelate for high K as needed On Starlix feeding to glucerna Keep electrolytes in check Keep BS and BP in check per consultants Subjective ROS Limited/Unobtainable: Yes Objective Objective Last 24 Hour Vital Signs Date Time Temp Pulse Resp B/P (MAP) Pulse Ox O2 Delivery O2 Flow Rate FiO2 01/01/19 12:30 109 25 30 01/01/19 12:30 112 25 Mechanical Ventilator 30 01/01/19 12:00 30 01/01/19 12:00 99.9 105 22 114/66 (82) 99 01/01/19 12:00 Mechanical Ventilator 01/01/19 10:41 112 26 30 01/01/19 08:45 114 25 30 01/01/19 08:00 30 01/01/19 08:00 Mechanical Ventilator 01/01/19 08:00 98.6 115 22 101/71 (81) 98 01/01/19 08:00 113 01/01/19 06:32 115 27 30 01/01/19 05:13 116 25 30 01/01/19 04:00 Mechanical Ventilator 01/01/19 04:00 99.5 116 22 105/71 (82) 98 01/01/19 04:00 30 01/01/19 03:32 113 01/01/19 03:30 110 24 30 01/01/19 00:50 104 25 30 01/01/19 00:00 99.0 107 25 99/60 (73) 98 01/01/19 00:00 Mechanical Ventilator 12/31/18 23:42 105 28 30 12/31/18 23:34 106 12/31/18 20:57 111 29 30 12/31/18 20:00 Mechanical Ventilator 12/31/18 20:00 30 12/31/18 20:00 98.9 107 30 107/65 (79) 98 12/31/18 19:35 112 23 30 12/31/18 19:34 111 12/31/18 17:00 108 27 30 12/31/18 16:00 98.9 111 24 108/70 (83) 99 12/31/18 16:00 110 12/31/18 16:00 30 12/31/18 16:00 Mechanical Ventilator 12/31/18 15:00 111 27 30 Intake and Output 12/31/18 01/01/19 19:00 07:00 Intake Total 1045 ml 1290 ml Output Total 800 ml 1250 ml Balance 245 ml 40 ml Intake Free Water 450 ml 150 ml IV Total 300 ml Tube Feeding 595 ml 540 ml Other 300 ml Output Urine Total 400 ml 500 ml Stool Total 400 ml 750 ml Laboratory Tests 01/01/19 04:00: White Blood Count 14.3H, Red Blood Count 3.08L, Hemoglobin 9.3L, Hematocrit 27.9L, Mean Corpuscular Volume 91, Mean Corpuscular Hemoglobin 30.2, Mean Corpuscular Hemoglobin Concent 33.3, Red Cell Distribution Width 14.9H, Platelet Count 214, Mean Platelet Volume 7.8, Neutrophils (%) (Auto) 81.5H, Lymphocytes (%) (Auto) 9.6L, Monocytes (%) (Auto) 4.6, Eosinophils (%) (Auto) 3.6H, Basophils (%) (Auto) 0.7, Sodium Level 136, Potassium Level 5.3H, Chloride Level 103, Carbon Dioxide Level 24, Anion Gap 9, Blood Urea Nitrogen 32H, Creatinine 0.7, Estimat Glomerular Filtration Rate , Glucose Level 151H, Calcium Level 8.1L, Total Bilirubin 0.2, Aspartate Amino Transf (AST/SGOT) 16, Alanine Aminotransferase (ALT/SGPT) 12, Alkaline Phosphatase 128H, Total Protein 8.3H, Albumin 1.5L, Globulin 6.8, Albumin/Globulin Ratio 0.2L, Amylase Level 165H, Lipase 997H Height (Feet): 5 Height (Inches): 8.00 Weight (Pounds): 146 General Appearance: no apparent distress EENT: other - trach Cardiovascular: tachycardia Respiratory/Chest: decreased breath sounds Abdomen: distended Objective no change Migue Moreland MD Jan 01, 2019 13:30
[2019-01-01] MEDS ORDERED: NS 275ml ONE (15:24)
[2019-01-01] MEDS ORDERED: NS Irrig 1000ml ONE (15:24)
[2019-01-01] MEDS ORDERED: Tubing IV Secondary IV ONE (15:24)
[2019-01-01 16:00] VITALS: BP 104/67
--- NOTE | 2019-01-01 16:36 | NUR ---
NURSE NOTES: Contacted and informed Dr. Jackson that patient had x 1 vomiting. Suctioned patient, placed head of bed up right to 45 degrees, administered PRN Zofran [address]. [address] Jackson that patient has not had another vomiting episode after administration of Zofran, SpO2 97% on vent settings, lung sound auscultated are crackles bilateral, HR [address] Jackson acknowledged and gave no new orders at this time and per MD will follow up tomorrow AM. Will continue to monitor patient.
--- NOTE | 2019-01-01 17:18 | NUR ---
CASE MANAGEMENT: REVIEW 01/01/2019 SI:SEPSIS. A/C RESP FAILURE. T 99.9 HR 105 RR 22 B/P 114/66 SATS 99% ON MECH VENT FiO2 30 WBC 14.3 K 5.3 BUN 32 GLU 151 CA 8.1 ALP 128 IS: INSULIN ASPART SUBQ Q6H LOPID GT BID TRICOR PO QD LINEZOLID IV Q12H LEVEMIR SUBQ Q12H STEP DOWN UNIT
--- NOTE | 2019-01-01 18:24 | NUR ---
NURSE NOTES: Dr. Hutchins also informed of patient's episode x 1 vomiting, MD ordered chest x-ray. Orders entered, noted, and carried out. Patient has not had anymore episode of vomiting. HOB at high rousseau's position for aspiration precaution, SpO2 97%, vent settings at ordered and patient tolerating. Will continue to monitor patient.
--- NOTE | 2019-01-01 19:30 | NUR ---
NURSE NOTES: Pt report received from Roland SCHILLING. pt assistant administrator is on and active. no signs of respiratory/ cardiac distress noted. all safety precautions are in place such as bed in lowest position, safety breaks engaged and bed alarm is set/ active and call light is within reach. pt has a EDA PICC line that is patent in flushing. Pt has a G tube that is able to flush. will continue plan of care.
--- NOTE | 2019-01-01 19:30 | NUR ---
HAND-OFF: Report given to SHAKIR Prabhakar.
[2019-01-01 20:00] VITALS: BP 114/76
[2019-01-01] MEDS: Dyna-Hex 2% Top Sol 2oz TOPIC SCH (20:28)
--- NOTE | 2019-01-01 20:43 | General Progress Note ---
Assessment/Plan Assessment/Plan Assessment/Recs: # Leukocytosis/Elevated white blood cell count,potentially due to infection with gram negative bacteremia, with uti and on abx --> have reviewed peripheral smear and bandemia/neutrophilia noted on initial smear was noted --> continue antibiotics if they have been started by ID team, titrate and change as needed --> monitor for resolution ---> WBC trend: 11-->16-->15-->14-->11-->12-->10.8-->11-->12-->11-->16-->14 # Anemia of chronic disease due to underlying chronic medical issues, multifactorial --> Anemia workup has been reviewed, Ferritin 1573 --> No evidence of hemolysis is noted, peripheral smear has been reviewed. --> Hgb goal >7. Transfuse prn. --> Epogen or iron at this time is not particularly indicated --> Medications have been reviewed --> HGB trend: 7.8-->7.6-->6.2-->6.4->7.1-->8.7-->9.1-->8.4-->7.8-->9.4-->7.3--> 10.6-->10.1-->11-->9.3 --> received prbc 12/25 # Thrombocytopenia - potential causes multifactorial, evaluate liver and viral etiologies to begin, also could be related to underlying medications --> Hep panel and HIV negative --> US abd to evaluate for cirrhosis and hsm reviewed --> Peripheral smear ordered to evaluate for blasts/schistocytes does not reveal any --> abx and other meds have been reviewed --> ok for ppx if plt >50k w/ either heparin or lovenox # Hypercalcemia potentailly related to dehydration --> s/p aredia as per renal --> pth reviewed --> trend Ca as needed # Severe prerenal azotemia, on ivf --> improve po oral intake and consider appetite stimulant # Severe Sepsis, CXR: Probable small left pleural effusion --> also evident on prior study 11/22/2017 --> appreciate ID recs # Bacteremia, likely from UTI, PNA --> tolerating abx well --> as per pulm The timing of this note does not necessarily reflect the time of the patient was seen. Greatly appreciate consultation! Subjective Constitutional: Denies: no symptoms, chills, diaphoresis, fever, malaise, weakness, other HEENT: Denies: no symptoms, eye pain, blurred vision, tearing, double vision, ear pain, ear discharge, nose pain, nose congestion, throat pain, throat swelling, mouth pain, mouth swelling, other Respiratory: Denies: no symptoms, cough, orthopnea, shortness of breath, SOB with excertion, SOB at rest, sputum, stridor, wheezing, other Gastrointestinal/Abdominal: Denies: no symptoms, abdomen distended, abdominal pain, black stools, tarry stools, blood in stool, constipated, diarrhea, difficulty swallowing, nausea, poor appetite, poor fluid intake, rectal bleeding , vomiting, other Genitourinary: Denies: no symptoms, burning, discharge, frequency, flank pain, hematuria, incontinence, pain, urgency, other Endocrine: Denies: no symptoms, excessive sweating, flushing, intolerance to cold, intolerance to heat, increased hunger, increased thirst, increased urine, unexplained weight gain, unexplained weight loss, other Allergies: Coded Allergies: PENICILLINS (Unverified Allergy, Unknown, 02/26/16) POLYMYXIN B (Unverified Allergy, Unknown, 02/26/16) VANCOMYCIN (Unverified Allergy, Unknown, 02/26/16) Subjective 12/11: seen by bedside, vent dependent, leukocytosis, 11, hgb 7, will transfuse, no events 12/12: awake, comfortable wbc trending up at 16, no events 12/13: hgb 6.4, receiving transfusion, , wbc remains elevated. no acute events 12/14: seen by bedside, awake, comfortable low grade fever, wbc remains elevated at 15, bacteremia on IV Abx, hgb 7.1, will transfuse as needed 12/15: Wbc remains elevated, no events reported, hgb trending up 12/16: seen by bedside, awake, comfortable, no events 12/18: seen in the room, on vent and trach, no events 12/19: reviewed cbc and appears relatively stable, on starlix, remains in sdu 12/20: seen by bedside, on vent, mild leukocytosis 12/21: Pt is resting , on vent, wbc trending up , no events 12/22: exam is essentially unchanged, on abx, have discussed with pcp, rn, wbc better 12/23: transfuse wbc 11, on abx 12/24: no events to report, on vent/trach care, without issue 12/26: in icu, resting comfortanly, off pressors 12/27: tolerating feeding and vent well, no issues, ca reviewed 12/28: no events, remains nonverbal, without complaints 12/29: no events, on vent/trach, nonverbal, no fevers 12/30: no events, labs have been reviewed, cbc noted, wbc higher 01/01: no events, on abx, wbc better, hgb lower, with nausea, on zofran Objective Last 24 Hour Vital Signs Date Time Temp Pulse Resp B/P (MAP) Pulse Ox O2 Delivery O2 Flow Rate FiO2 01/01/19 20:35 117 23 30 01/01/19 18:40 112 21 30 01/01/19 17:06 117 23 30 01/01/19 16:00 98.5 112 20 104/67 (79) 98 01/01/19 16:00 111 01/01/19 16:00 30 01/01/19 16:00 Mechanical Ventilator 01/01/19 14:44 119 28 30 01/01/19 12:30 109 25 30 01/01/19 12:30 112 25 Mechanical Ventilator 30 01/01/19 12:00 30 01/01/19 12:00 99.9 105 22 114/66 (82) 99 01/01/19 12:00 111 01/01/19 12:00 Mechanical Ventilator 01/01/19 10:41 112 26 30 01/01/19 08:45 114 25 30 01/01/19 08:00 30 01/01/19 08:00 Mechanical Ventilator 01/01/19 08:00 98.6 115 22 101/71 (81) 98 01/01/19 08:00 113 01/01/19 06:32 115 27 30 01/01/19 05:13 116 25 30 01/01/19 04:00 Mechanical Ventilator 01/01/19 04:00 99.5 116 22 105/71 (82) 98 01/01/19 04:00 30 01/01/19 03:32 113 01/01/19 03:30 110 24 30 01/01/19 00:50 104 25 30 01/01/19 00:00 99.0 107 25 99/60 (73) 98 01/01/19 00:00 Mechanical Ventilator 12/31/18 23:42 105 28 30 12/31/18 23:34 106 12/31/18 20:57 111 29 30 Intake and Output 12/31/18 01/01/19 18:59 06:59 Intake Total 1000 ml 1290 ml Output Total 800 ml 1250 ml Balance 200 ml 40 ml Intake Free Water 450 ml 150 ml IV Total 300 ml Tube Feeding 550 ml 540 ml Other 300 ml Output Urine Total 400 ml 500 ml Stool Total 400 ml 750 ml Laboratory Tests 01/01/19 04:00: White Blood Count 14.3H, Red Blood Count 3.08L, Hemoglobin 9.3L, Hematocrit 27.9L, Mean Corpuscular Volume 91, Mean Corpuscular Hemoglobin 30.2, Mean Corpuscular Hemoglobin Concent 33.3, Red Cell Distribution Width 14.9H, Platelet Count 214, Mean Platelet Volume 7.8, Neutrophils (%) (Auto) 81.5H, Lymphocytes (%) (Auto) 9.6L, Monocytes (%) (Auto) 4.6, Eosinophils (%) (Auto) 3.6H, Basophils (%) (Auto) 0.7, Sodium Level 136, Potassium Level 5.3H, Chloride Level 103, Carbon Dioxide Level 24, Anion Gap 9, Blood Urea Nitrogen 32H, Creatinine 0.7, Estimat Glomerular Filtration Rate , Glucose Level 151H, Calcium Level 8.1L, Total Bilirubin 0.2, Aspartate Amino Transf (AST/SGOT) 16, Alanine Aminotransferase (ALT/SGPT) 12, Alkaline Phosphatase 128H, Total Protein 8.3H, Albumin 1.5L, Globulin 6.8, Albumin/Globulin Ratio 0.2L, Amylase Level 165H, Lipase 997H Height (Feet): 5 Height (Inches): 8.00 Weight (Pounds): 146 Objective HEENT: Eyes were normal. ENT, mucous membranes were not dehydrated. NECK: Supple. There was no goiter. No mass. No lad LUNGS: Clear. Vent++/trach HEART: PMI was in the fifth left intercostal space in midclavicular line. There was normal S1 and normal S2. There was no murmur. no s3/s4 ABDOMEN: Soft and nontender without organomegaly. There were no masses palpable. Normal bowel sounds without bruits. There was no guarding. No rebound tenderness. No ascites. No hernia. No CVA tenderness. Liver span was 8 cm, mostly nontender. EXTREMITIES: No cyanosis, no clubbing, and no edema. Extremities warm. Adarsh Kim MD Jan 01, 2019 20:43
[2019-01-02] VITALS: BP 107/67
[2019-01-02 04:00] VITALS: BP 100/69
[2019-01-02 04:39] LABS: BASOPHILS % (AUTO) 1.1 % (0.0-2.0); EOSINOPHILS % (AUTO) 2.4 % (0.0-3.0); HEMATOCRIT 29.6 % (42.0-52.0); HEMOGLOBIN 9.9 G/DL (14.2-18.0); LYMPHOCYTES % (AUTO) 6.8 % (20.0-45.0); MEAN CORPUSCULAR VOLUME 91 FL (80-99); MONOCYTES % (AUTO) 4.7 % (1.0-10.0); NEUTROPHILS % (AUTO) 84.9 % (45.0-75.0); PLATELET COUNT 241 K/UL (150-450); RED BLOOD COUNT 3.24 M/UL (4.70-6.10); RED CELL DISTRIBUTION WIDTH 15.8 % (11.6-14.8); WHITE BLOOD COUNT 16.1 K/UL (4.8-10.8)
[2019-01-02 04:52] LABS: ANION GAP 11 mmol/L (5-15); BLOOD UREA NITROGEN 30 mg/dL (7-18); CARBON DIOXIDE 23 MMOL/L (21-32); CHLORIDE 103 MMOL/L (98-107); CREATININE 0.8 MG/DL (0.55-1.30); POTASSIUM 5.4 MMOL/L (3.5-5.1); SODIUM 137 MMOL/L (136-145)
[2019-01-02] MEDS ORDERED: Sodium Polystyrene Sulfonate 15gm Powder ORAL ONE (06:15)
--- NOTE | 2019-01-02 06:15 | Progress Note ---
DATE: 01/01/2019 SUBJECTIVE: The patient is afebrile, but remained tachycardic. PHYSICAL EXAMINATION: VITAL SIGNS: Blood pressure 114/76, pulse is 114, respirations of 21, and temperature is 98.6. HEENT: Eyes were normal. ENT, mucous membranes were moist and intact. NECK: Supple with no JVD without lymph nodes. Tracheostomy site is clean. LUNGS: Clear without rhonchi, rales, or wheezing. Secretions are small, thin, and barros. HEART: Normal sounds with regular beats. There is no S3, S4, or pericardial rub. ABDOMEN: Soft and nontender with normal bowel sounds. Gastrostomy site is clean. EXTREMITIES: Warm without cyanosis, clubbing, or edema. LABORATORY AND DIAGNOSTIC DATA: Hemoglobin is 9.4, hematocrit 27.9 with MCV of 91, WBC of 14.3, and platelets of 214,000. His BUN and creatinine are 32 and 0.7 respectively. His sodium is 136, potassium 5.3, chloride 103, CO2 is 24, and calcium is 9.1. SGOT and SGPT are normal. His alkaline phosphatase is slightly elevated at 158, was 162 yesterday. Albumin is 1.5. Total protein is 8.3. Amylase and lipase is 165 and 997 respectively. The patient's chest x-ray done on 12/28/2018 revealed in the right upper lobe. The patient's blood culture recently are negative. CBC was negative from 12/30/2018 and wound culture grew Meera albicans. IMPRESSION: The patient continued to be was called to assist in the management of this case. The patient's condition does not appear improving even though his laboratory tests are improving. Repeat laboratory tests will be done in the a.m. Neema Hutchins M.D. DR: PIERCE JOB#: [id number] CC:
[2019-01-02] MEDS: NovoLOG Insulin Flexpen SUBQ SCH ×4 (06:35→23:48)
--- NOTE | 2019-01-02 07:00 | NUR ---
HAND-OFF: Report given to Reshma SCHILLING.
[2019-01-02 07:10] LABS: ALANINE AMINOTRANSFERASE 15 U/L (12-78); ALBUMIN 1.6 G/DL (3.4-5.0); ALKALINE PHOSPHATASE 126 U/L (46-116); ASPARTATE AMINO TRANSFERASE 21 U/L (15-37); BILIRUBIN,DIRECT < 0.1 MG/DL (0.0-0.3); BILIRUBIN,TOTAL 0.2 MG/DL (0.2-1.0); PHOSPHORUS 2.1 MG/DL (2.5-4.9)
[2019-01-02 08:00] VITALS: BP 104/64
--- NOTE | 2019-01-02 08:00 | NUR ---
NURSE NOTES: received pt in the bed, vent dependent, vital signs stable, no co pain,no SOB, skin warm and dry to touch, dressing on sacral dry and intact, tolerate GT feeding well, PICC line on left upper arm, dressing dry and intact, suprapubic catheter, colostomy, bed in low position, HOB elevated.
[2019-01-02] MEDS ORDERED: Sodium Phosphate 15 MM in NS 275 ML IVPB ONE (09:00)
--- NOTE | 2019-01-02 09:36 | NUR ---
RADIOLOGY DEPT., CHEST X-RAY DONE.-P.DYE
[2019-01-02] MEDS: Heparin 5000 units/ml inj SUBQ SCH ×2 (09:42→20:38)
[2019-01-02] MEDS: Levemir Flexpen SUBQ SCH ×2 (09:43→20:39)
--- NOTE | 2019-01-02 10:48 | GI Progress Note ---
Assessment/Plan Problems: (1) Colostomy care ICD Codes: Z43.3 - Encounter for attention to colostomy SNOMED: 246461248 (2) Anemia ICD Codes: D64.9 - Anemia, unspecified SNOMED: 592509078 (3) Feeding by G-tube ICD Codes: Z93.1 - Gastrostomy status SNOMED: 980817797, 658311450 (4) Abdominal wall cellulitis ICD Codes: L03.311 - Cellulitis of abdominal wall SNOMED: 71438136 (5) Acute pancreatitis ICD Codes: K85.90 - Acute pancreatitis without necrosis or infection, unspecified SNOMED: 787734121 (6) Pancreatitis ICD Codes: K85.90 - Acute pancreatitis without necrosis or infection, unspecified SNOMED: 81380046 Status: stable Status Narrative Discussed with Dr. Jackson Assessment/Plan Occult blood stool positive >>1/3>>> repeat stool ob fu CBC Hepatitis panel negative Pancreatitis secondary to hypertriglyceridemia Elevated CA 19, mild Repeat lipid panel shows hypertriglyceridemia TriCor and lopid Stable H&H - PRN transfusions ppi daily GTFs per RD repeat lipase Supportive care The patient was seen and examined at bedside and all new and available data was reviewed in the patients chart. I agree with the above findings, impression and plan. (Patient seen earlier today. Signature stamp does not reflect patient encounter time.). - Benjamin Jackson MD Subjective Subjective Limited Objective Last 24 Hour Vital Signs Date Time Temp Pulse Resp B/P (MAP) Pulse Ox O2 Delivery O2 Flow Rate FiO2 01/02/19 10:44 119 21 30 01/02/19 09:15 122 26 30 01/02/19 08:46 119 01/02/19 08:00 30 01/02/19 08:00 Mechanical Ventilator 01/02/19 08:00 99.5 125 28 104/64 (77) 98 01/02/19 07:10 123 24 30 01/02/19 05:29 118 22 30 01/02/19 04:00 100.0 125 21 100/69 (79) 97 01/02/19 04:00 Mechanical Ventilator 01/02/19 04:00 30 01/02/19 04:00 111 01/02/19 02:43 119 22 30 01/02/19 00:50 116 23 30 01/02/19 00:00 Mechanical Ventilator 01/02/19 00:00 99.4 120 24 107/67 (80) 98 01/02/19 00:00 119 01/01/19 22:45 114 22 30 01/01/19 20:35 117 23 30 01/01/19 20:00 114 01/01/19 20:00 30 01/01/19 20:00 Mechanical Ventilator 01/01/19 20:00 98.6 114 23 114/76 (89) 99 01/01/19 18:40 112 21 30 01/01/19 17:06 117 23 30 01/01/19 16:00 98.5 112 20 104/67 (79) 98 01/01/19 16:00 111 01/01/19 16:00 30 01/01/19 16:00 Mechanical Ventilator 01/01/19 14:44 119 28 30 01/01/19 12:30 109 25 30 01/01/19 12:30 112 25 Mechanical Ventilator 30 01/01/19 12:00 30 01/01/19 12:00 99.9 105 22 114/66 (82) 99 01/01/19 12:00 111 01/01/19 12:00 Mechanical Ventilator Intake and Output 01/01/19 01/02/19 19:00 07:00 Intake Total 990 ml 910 ml Output Total 1200 ml Balance -210 ml 910 ml Intake Free Water 450 ml 70 ml IV Total 300 ml Tube Feeding 540 ml 540 ml Output Urine Total 300 ml Stool Total 900 ml Laboratory Tests Test 01/02/19 03:39 White Blood Count 16.1 K/UL (4.8-10.8) H Red Blood Count 3.24 M/UL (4.70-6.10) L Hemoglobin 9.9 G/DL (14.2-18.0) L Hematocrit 29.6 % (42.0-52.0) L Mean Corpuscular Volume 91 FL (80-99) Mean Corpuscular Hemoglobin 30.4 PG (27.0-31.0) Mean Corpuscular Hemoglobin Concent 33.3 G/DL (32.0-36.0) Red Cell Distribution Width 15.8 % (11.6-14.8) H Platelet Count 241 K/UL (150-450) Mean Platelet Volume 8.3 FL (6.5-10.1) Neutrophils (%) (Auto) 84.9 % (45.0-75.0) H Lymphocytes (%) (Auto) 6.8 % (20.0-45.0) L Monocytes (%) (Auto) 4.7 % (1.0-10.0) Eosinophils (%) (Auto) 2.4 % (0.0-3.0) Basophils (%) (Auto) 1.1 % (0.0-2.0) Sodium Level 137 MMOL/L (136-145) Potassium Level 5.4 MMOL/L (3.5-5.1) H Chloride Level 103 MMOL/L (98-107) Carbon Dioxide Level 23 MMOL/L (21-32) Anion Gap 11 mmol/L (5-15) Blood Urea Nitrogen 30 mg/dL (7-18) H Creatinine 0.8 MG/DL (0.55-1.30) Estimat Glomerular Filtration Rate mL/min (>60) Glucose Level 184 MG/DL (74-106) H Calcium Level 9.0 MG/DL (8.5-10.1) Phosphorus Level 2.1 MG/DL (2.5-4.9) L Magnesium Level 2.1 MG/DL (1.8-2.4) Total Bilirubin 0.2 MG/DL (0.2-1.0) Direct Bilirubin < 0.1 MG/DL (0.0-0.3) Aspartate Amino Transf (AST/SGOT) 21 U/L (15-37) Alanine Aminotransferase (ALT/SGPT) 15 U/L (12-78) Alkaline Phosphatase 126 U/L (46-116) H Total Protein 8.7 G/DL (6.4-8.2) H Albumin 1.6 G/DL (3.4-5.0) L Lipase 946 U/L (73-393) H Height (Feet): 5 Height (Inches): 8.00 Weight (Pounds): 146 General Appearance: WD/WN, no apparent distress, alert Cardiovascular: normal rate Respiratory/Chest: normal breath sounds, no respiratory distress Abdominal Exam: normal bowel sounds, non tender, soft, GT site Extremities: non-tender Cirilo Germain CRIMINAL ATTORNEY Jan 02, 2019 10:48
--- NOTE | 2019-01-02 10:54 | Pulmonolgy Critical Care Note ---
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 Assessment/Plan: hemodynamically getting better Respiratory: adjust tidal volume, monitor respiratory rate, adjust FIO2, CXR Cardiac: continue pressors, continue to monitor HR/BP Renal: F/U I&O Infectious Disease: check cultures Gastrointestinal: continue feedings/current rate Endocrine: monitor blood sugar Hematologic: monitor H/H, transfuse if hgb<8.5 Neurologic: PRN Morphine, keep patient comfortable Prophylaxis: Protonix Notes Reviewed: cardio Discussed with: nurses, consultants, test case developerchannel account manager - Objective Last 24 Hour Vital Signs Date Time Temp Pulse Resp B/P (MAP) Pulse Ox O2 Delivery O2 Flow Rate FiO2 01/02/19 10:44 119 21 30 01/02/19 09:15 122 26 30 01/02/19 08:46 119 01/02/19 08:00 30 01/02/19 08:00 Mechanical Ventilator 01/02/19 08:00 99.5 125 28 104/64 (77) 98 01/02/19 07:10 123 24 30 01/02/19 05:29 118 22 30 01/02/19 04:00 100.0 125 21 100/69 (79) 97 01/02/19 04:00 Mechanical Ventilator 01/02/19 04:00 30 01/02/19 04:00 111 01/02/19 02:43 119 22 30 01/02/19 00:50 116 23 30 01/02/19 00:00 Mechanical Ventilator 01/02/19 00:00 99.4 120 24 107/67 (80) 98 01/02/19 00:00 119 01/01/19 22:45 114 22 30 01/01/19 20:35 117 23 30 01/01/19 20:00 114 01/01/19 20:00 30 01/01/19 20:00 Mechanical Ventilator 01/01/19 20:00 98.6 114 23 114/76 (89) 99 01/01/19 18:40 112 21 30 01/01/19 17:06 117 23 30 01/01/19 16:00 98.5 112 20 104/67 (79) 98 01/01/19 16:00 111 01/01/19 16:00 30 01/01/19 16:00 Mechanical Ventilator 01/01/19 14:44 119 28 30 01/01/19 12:30 109 25 30 01/01/19 12:30 112 25 Mechanical Ventilator 30 01/01/19 12:00 30 01/01/19 12:00 99.9 105 22 114/66 (82) 99 01/01/19 12:00 111 01/01/19 12:00 Mechanical Ventilator Status: awake Condition: critical HEENT: atraumatic, normocephalic Neck: full ROM Lungs: clear Heart: HR/BP stable Abdomen: soft, non-tender Extremities: no C/C/E Decubiti: location Micro: Microbiology Date/Time Source Procedure Growth Status 12/30/18 17:50 Blood Blood Culture - Preliminary NO GROWTH AFTER 48 HOURS Resulted 12/30/18 17:50 Blood Blood Culture - Preliminary NO GROWTH AFTER 48 HOURS Resulted 12/30/18 17:37 Stool Clostridium difficile Toxin Assay - Final Complete 12/30/18 17:37 Sacral Wound Gram Stain - Final Resulted 12/30/18 17:37 Wound Culture - Preliminary Gram Negative Bacillus 1 Gram Negative Bacillus 2 Resulted Accucheck: 188 Critical Care - Subjective ROS Limited/Unobtainable: Yes FI02: 30 Vent Support Breath Rate: 18 Vent Support Mode: AC Vent Tidal Volume: 500 Sputum Amount: Moderate PEEP: 5.0 PIP: 40 Tube Feeding Amount: 45 I&O: Intake and Output 01/01/19 01/02/19 19:00 07:00 Intake Total 990 ml 910 ml Output Total 1200 ml Balance -210 ml 910 ml Intake Free Water 450 ml 70 ml IV Total 300 ml Tube Feeding 540 ml 540 ml Output Urine Total 300 ml Stool Total 900 ml CXR: no change Labs: Laboratory Tests Test 01/02/19 03:39 White Blood Count 16.1 K/UL (4.8-10.8) H Red Blood Count 3.24 M/UL (4.70-6.10) L Hemoglobin 9.9 G/DL (14.2-18.0) L Hematocrit 29.6 % (42.0-52.0) L Mean Corpuscular Volume 91 FL (80-99) Mean Corpuscular Hemoglobin 30.4 PG (27.0-31.0) Mean Corpuscular Hemoglobin Concent 33.3 G/DL (32.0-36.0) Red Cell Distribution Width 15.8 % (11.6-14.8) H Platelet Count 241 K/UL (150-450) Mean Platelet Volume 8.3 FL (6.5-10.1) Neutrophils (%) (Auto) 84.9 % (45.0-75.0) H Lymphocytes (%) (Auto) 6.8 % (20.0-45.0) L Monocytes (%) (Auto) 4.7 % (1.0-10.0) Eosinophils (%) (Auto) 2.4 % (0.0-3.0) Basophils (%) (Auto) 1.1 % (0.0-2.0) Sodium Level 137 MMOL/L (136-145) Potassium Level 5.4 MMOL/L (3.5-5.1) H Chloride Level 103 MMOL/L (98-107) Carbon Dioxide Level 23 MMOL/L (21-32) Anion Gap 11 mmol/L (5-15) Blood Urea Nitrogen 30 mg/dL (7-18) H Creatinine 0.8 MG/DL (0.55-1.30) Estimat Glomerular Filtration Rate mL/min (>60) Glucose Level 184 MG/DL (74-106) H Calcium Level 9.0 MG/DL (8.5-10.1) Phosphorus Level 2.1 MG/DL (2.5-4.9) L Magnesium Level 2.1 MG/DL (1.8-2.4) Total Bilirubin 0.2 MG/DL (0.2-1.0) Direct Bilirubin < 0.1 MG/DL (0.0-0.3) Aspartate Amino Transf (AST/SGOT) 21 U/L (15-37) Alanine Aminotransferase (ALT/SGPT) 15 U/L (12-78) Alkaline Phosphatase 126 U/L (46-116) H Total Protein 8.7 G/DL (6.4-8.2) H Albumin 1.6 G/DL (3.4-5.0) L Lipase 946 U/L (73-393) H Abhishek Guerra MD Jan 02, 2019 10:54
--- NOTE | 2019-01-02 10:59 | Diagnostic Imaging Report ---
Indication: Dyspnea Technique: One view of the chest Comparison: 12/28/2018 Findings: Chronic appearing interstitial opacities are again demonstrated in the right upper lobe as well as more generalized. There is suggestion of small bilateral pleural effusions, unchanged. Normal heart size. Tracheostomy again demonstrated. Findings are unchanged Impression: Unchanged, over 5 days, findings as above.
--- NOTE | 2019-01-02 11:59 | Nephrology Progress Note ---
Assessment/Plan Problem List: (1) Hypercalcemia (2) ATN (acute tubular necrosis) (3) Anemia (4) Feeding by G-tube (5) Acute and chronic respiratory failure (6) UTI (urinary tract infection) (7) Hyponatremia Assessment in [facility] - Glucose better controlled Periodic high K Patient have mainly Pre Renal Azotemia with possible underlying CKD- Low Na partly depletional, partly due to Hyperglycemia RESOLVED Other conditions as outlined: (1) Acute and chronic respiratory failure (jhixp-io-nyeoqqc) (2) Sepsis (3) Malnutrition and HypoAlbuminemia (4) UTI (urinary tract infection) (5) Anemia (6) Diabetes mellitus, type II (7) Colostomy care (8) Cerebral vascular disease (9) Decubitus ulcer of sacral region, stage 2 (10) Feeding by G-tube (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 Plan K & Phos supplement as needed Levemir and adjust dose Kayexelate for high K as needed Stop Digoxin stop Atenolol Stop Cardiazem Pressors as needed Albumin bolus as needed AREDIA 90 mg for HYPERCALCEMIA on 12/23 - Fu Calcium level will redose On Starlix feeding to glucerna Keep electrolytes in check Keep BS and BP in check per consultants Subjective ROS Limited/Unobtainable: Yes Objective Objective Last 24 Hour Vital Signs Date Time Temp Pulse Resp B/P (MAP) Pulse Ox O2 Delivery O2 Flow Rate FiO2 01/02/19 10:44 119 21 30 01/02/19 09:15 122 26 30 01/02/19 08:46 119 01/02/19 08:00 30 01/02/19 08:00 Mechanical Ventilator 01/02/19 08:00 99.5 125 28 104/64 (77) 98 01/02/19 07:10 123 24 30 01/02/19 05:29 118 22 30 01/02/19 04:00 100.0 125 21 100/69 (79) 97 01/02/19 04:00 Mechanical Ventilator 01/02/19 04:00 30 01/02/19 04:00 111 01/02/19 02:43 119 22 30 01/02/19 00:50 116 23 30 01/02/19 00:00 Mechanical Ventilator 01/02/19 00:00 99.4 120 24 107/67 (80) 98 01/02/19 00:00 119 01/01/19 22:45 114 22 30 01/01/19 20:35 117 23 30 01/01/19 20:00 114 01/01/19 20:00 30 01/01/19 20:00 Mechanical Ventilator 01/01/19 20:00 98.6 114 23 114/76 (89) 99 01/01/19 18:40 112 21 30 01/01/19 17:06 117 23 30 01/01/19 16:00 98.5 112 20 104/67 (79) 98 01/01/19 16:00 111 01/01/19 16:00 30 01/01/19 16:00 Mechanical Ventilator 01/01/19 14:44 119 28 30 01/01/19 12:30 109 25 30 01/01/19 12:30 112 25 Mechanical Ventilator 30 01/01/19 12:00 30 01/01/19 12:00 99.9 105 22 114/66 (82) 99 01/01/19 12:00 111 01/01/19 12:00 Mechanical Ventilator Intake and Output 01/01/19 01/02/19 19:00 07:00 Intake Total 990 ml 910 ml Output Total 1200 ml Balance -210 ml 910 ml Intake Free Water 450 ml 70 ml IV Total 300 ml Tube Feeding 540 ml 540 ml Output Urine Total 300 ml Stool Total 900 ml Laboratory Tests 01/02/19 03:39: White Blood Count 16.1H, Red Blood Count 3.24L, Hemoglobin 9.9L, Hematocrit 29.6L, Mean Corpuscular Volume 91, Mean Corpuscular Hemoglobin 30.4, Mean Corpuscular Hemoglobin Concent 33.3, Red Cell Distribution Width 15.8H, Platelet Count 241, Mean Platelet Volume 8.3, Neutrophils (%) (Auto) 84.9H, Lymphocytes (%) (Auto) 6.8L, Monocytes (%) (Auto) 4.7, Eosinophils (%) (Auto) 2.4, Basophils (%) (Auto) 1.1, Sodium Level 137, Potassium Level 5.4H, Chloride Level 103, Carbon Dioxide Level 23, Anion Gap 11, Blood Urea Nitrogen 30H, Creatinine 0.8, Estimat Glomerular Filtration Rate , Glucose Level 184H, Calcium Level 9.0, Phosphorus Level 2.1L, Magnesium Level 2.1, Total Bilirubin 0.2, Direct Bilirubin < 0.1, Aspartate Amino Transf (AST/SGOT) 21, Alanine Aminotransferase (ALT/SGPT) 15, Alkaline Phosphatase 126H, Total Protein 8.7H, Albumin 1.6L, Lipase 946H Height (Feet): 5 Height (Inches): 8.00 Weight (Pounds): 146 EENT: other - trach Cardiovascular: tachycardia Respiratory/Chest: decreased breath sounds Abdomen: distended Objective no change Migue Moreland MD Jan 02, 2019 11:59
[2019-01-02 12:00] VITALS: BP 101/68
--- NOTE | 2019-01-02 13:12 | NUR ---
NURSE NOTES:WOUND CARE NOTES:Pt wounds resolving. Less erosions noted to Buttocks and scrotum-Skin is britton pink without elevation in skin temp. Few small open lesions with small amt bleeding noted. Full thickness wound sacrum (L)2cm x (W)with tunneling at 12o'clock by 2.1cm. BAse of wound is obscured due size and shape of wound. No odor or exudate noted. Full thickness pressure injury R ischium wound with approx 40% necrosis along borders at 1-7 o'clock. Approx 25% slough , otherwise beefy red with small amt bleeding noted .No odor noted. (L)9.8cm x (W)10.3cm x (D)3cm ,undermining 10-3 by 4.4cm@3 o'clock. Stable dry eschar noted to R heel (L)2cm x (W)2.5cm. Periwound without erythema or fluctuance. L heel pink and firm . Tx.Plan:Cleanse buttocks with Saline.Loosely pack sacral area with Therahoney impregnated kerlix. Apply Triad Paste periwound.Cover with ABD pad. Change daily and prn. Cleanse R ischial wound with Saline. Loosely pack with Therahoney impregnated Kerlix. Cover with Abd pad. Secure with Tegaderm .Change daily and prn. Apply Triad Paste to entire Buttocks and Scrotal areas Daily with wound care. Apply Cavilon Skin Barrier to Both heels. Off-load heels with pillow. Reposition at least every 2hours or as tolerated. Off-Load heels with pillow. Air Fluidized mattress
--- NOTE | 2019-01-02 13:32 | General Progress Note ---
Assessment/Plan Assessment/Plan Assessment/Recs: # Leukocytosis/Elevated white blood cell count,potentially due to infection with gram negative bacteremia, with uti and on abx --> have reviewed peripheral smear and bandemia/neutrophilia noted on initial smear was noted --> continue antibiotics if they have been started by ID team, titrate and change as required --> monitor for resolution ---> WBC trend: 11-->16-->15-->14-->11-->12-->10.8-->11-->12-->11-->16-->14-->16 # Anemia of chronic disease due to underlying chronic medical issues, multifactorial --> Anemia workup has been reviewed, Ferritin 1573 --> No evidence of hemolysis is noted, peripheral smear has been reviewed. --> Hgb goal >7. Transfuse prn. --> Epogen or iron at this time is not particularly indicated --> Medications have been reviewed --> HGB trend: 7.8-->7.6-->6.2-->6.4->7.1-->8.7-->9.1-->8.4-->7.8-->9.4-->7.3--> 10.6-->10.1-->11-->9.3-->9.9 --> received prbc 12/25 # Thrombocytopenia - potential causes multifactorial, evaluate liver and viral etiologies to begin, also could be related to underlying medications --> Hep panel and HIV negative --> US abd to evaluate for cirrhosis and hsm reviewed --> Peripheral smear ordered to evaluate for blasts/schistocytes does not reveal any --> abx and other meds have been reviewed --> ok for ppx if plt >50k w/ either heparin or lovenox # Hypercalcemia potentailly related to dehydration --> s/p aredia as per renal --> pth reviewed --> trend Ca as needed # Severe prerenal azotemia, on ivf --> improve po oral intake and consider appetite stimulant # Severe Sepsis, CXR: Probable small left pleural effusion --> also evident on prior study 11/22/2017 --> appreciate ID recs # Bacteremia, likely from UTI, PNA --> tolerating abx well --> as per pulm The timing of this note does not necessarily reflect the time of the patient was seen. Greatly appreciate consultation! Subjective Constitutional: Denies: no symptoms, chills, diaphoresis, fever, malaise, weakness, other HEENT: Denies: no symptoms, eye pain, blurred vision, tearing, double vision, ear pain, ear discharge, nose pain, nose congestion, throat pain, throat swelling, mouth pain, mouth swelling, other Gastrointestinal/Abdominal: Denies: no symptoms, abdomen distended, abdominal pain, black stools, tarry stools, blood in stool, constipated, diarrhea, difficulty swallowing, nausea, poor appetite, poor fluid intake, rectal bleeding , vomiting, other Genitourinary: Denies: no symptoms, burning, discharge, frequency, flank pain, hematuria, incontinence, pain, urgency, other Neurologic/Psychiatric: Denies: no symptoms, anxiety, depressed, emotional problems, headache, numbness, paresthesia, pre-existing deficit, seizure, tingling, tremors, weakness, other Endocrine: Denies: no symptoms, excessive sweating, flushing, intolerance to cold, intolerance to heat, increased hunger, increased thirst, increased urine, unexplained weight gain, unexplained weight loss, other Hematologic/Lymphatic: Denies: no symptoms, anemia, easy bleeding, easy bruising, other Allergies: Coded Allergies: PENICILLINS (Unverified Allergy, Unknown, 02/26/16) POLYMYXIN B (Unverified Allergy, Unknown, 02/26/16) VANCOMYCIN (Unverified Allergy, Unknown, 02/26/16) Subjective 12/11: seen by bedside, vent dependent, leukocytosis, 11, hgb 7, will transfuse, no events 12/12: awake, comfortable wbc trending up at 16, no events 12/13: hgb 6.4, receiving transfusion, , wbc remains elevated. no acute events 12/14: seen by bedside, awake, comfortable low grade fever, wbc remains elevated at 15, bacteremia on IV Abx, hgb 7.1, will transfuse as needed 12/15: Wbc remains elevated, no events reported, hgb trending up 12/16: seen by bedside, awake, comfortable, no events 12/18: seen in the room, on vent and trach, no events 12/19: reviewed cbc and appears relatively stable, on starlix, remains in sdu 12/20: seen by bedside, on vent, mild leukocytosis 12/21: Pt is resting , on vent, wbc trending up , no events 12/22: exam is essentially unchanged, on abx, have discussed with pcp, rn, wbc better 12/23: transfuse wbc 11, on abx 12/24: no events to report, on vent/trach care, without issue 12/26: in icu, resting comfortanly, off pressors 12/27: tolerating feeding and vent well, no issues, ca reviewed 12/28: no events, remains nonverbal, without complaints 12/29: no events, on vent/trach, nonverbal, no fevers 12/30: no events, labs have been reviewed, cbc noted, wbc higher 01/01: no events, on abx, wbc better, hgb lower, with nausea, on zofran 01/02: less abdominal pain, on zofran on prn basis, no f/c Objective Last 24 Hour Vital Signs Date Time Temp Pulse Resp B/P (MAP) Pulse Ox O2 Delivery O2 Flow Rate FiO2 01/02/19 12:42 116 26 30 01/02/19 12:00 30 01/02/19 12:00 Mechanical Ventilator 01/02/19 12:00 98.2 116 22 101/68 (79) 97 01/02/19 10:44 119 21 30 01/02/19 09:15 122 26 30 01/02/19 08:46 119 01/02/19 08:00 30 01/02/19 08:00 Mechanical Ventilator 01/02/19 08:00 99.5 125 28 104/64 (77) 98 01/02/19 07:10 123 24 30 01/02/19 05:29 118 22 30 01/02/19 04:00 100.0 125 21 100/69 (79) 97 01/02/19 04:00 Mechanical Ventilator 01/02/19 04:00 30 01/02/19 04:00 111 01/02/19 02:43 119 22 30 01/02/19 00:50 116 23 30 01/02/19 00:00 Mechanical Ventilator 01/02/19 00:00 99.4 120 24 107/67 (80) 98 01/02/19 00:00 119 01/01/19 22:45 114 22 30 01/01/19 20:35 117 23 30 01/01/19 20:00 114 01/01/19 20:00 30 01/01/19 20:00 Mechanical Ventilator 01/01/19 20:00 98.6 114 23 114/76 (89) 99 01/01/19 18:40 112 21 30 01/01/19 17:06 117 23 30 01/01/19 16:00 98.5 112 20 104/67 (79) 98 01/01/19 16:00 111 01/01/19 16:00 30 01/01/19 16:00 Mechanical Ventilator 01/01/19 14:44 119 28 30 Intake and Output 01/01/19 01/02/19 19:00 07:00 Intake Total 990 ml 910 ml Output Total 1200 ml Balance -210 ml 910 ml Intake Free Water 450 ml 70 ml IV Total 300 ml Tube Feeding 540 ml 540 ml Output Urine Total 300 ml Stool Total 900 ml Laboratory Tests 01/02/19 03:39: White Blood Count 16.1H, Red Blood Count 3.24L, Hemoglobin 9.9L, Hematocrit 29.6L, Mean Corpuscular Volume 91, Mean Corpuscular Hemoglobin 30.4, Mean Corpuscular Hemoglobin Concent 33.3, Red Cell Distribution Width 15.8H, Platelet Count 241, Mean Platelet Volume 8.3, Neutrophils (%) (Auto) 84.9H, Lymphocytes (%) (Auto) 6.8L, Monocytes (%) (Auto) 4.7, Eosinophils (%) (Auto) 2.4, Basophils (%) (Auto) 1.1, Sodium Level 137, Potassium Level 5.4H, Chloride Level 103, Carbon Dioxide Level 23, Anion Gap 11, Blood Urea Nitrogen 30H, Creatinine 0.8, Estimat Glomerular Filtration Rate , Glucose Level 184H, Calcium Level 9.0, Phosphorus Level 2.1L, Magnesium Level 2.1, Total Bilirubin 0.2, Direct Bilirubin < 0.1, Aspartate Amino Transf (AST/SGOT) 21, Alanine Aminotransferase (ALT/SGPT) 15, Alkaline Phosphatase 126H, Total Protein 8.7H, Albumin 1.6L, Lipase 946H Height (Feet): 5 Height (Inches): 8.00 Weight (Pounds): 146 Objective HEENT: Eyes were normal. ENT, mucous membranes were not dehydrated. NECK: Supple. There was no goiter. No mass. No lad LUNGS: Clear. Vent++/trach HEART: PMI was in the fifth left intercostal space in midclavicular line. There was normal S1 and normal S2. There was no murmur. no s3/s4 ABDOMEN: Soft and nontender without organomegaly. There were no masses palpable. Normal bowel sounds without bruits. There was no guarding. No rebound tenderness. No ascites. No hernia. No CVA tenderness. Liver span was 8 cm, mostly nt EXTREMITIES: No cyanosis, no clubbing, and no edema. Extremities warm. Adarsh Kim MD Jan 02, 2019 13:32
--- NOTE | 2019-01-02 13:57 | Surgery Progress Note ---
Surgery Progress Note Subjective Additional Comments no acute events. exam unchanged. labs noted. Objective Last 24 Hour Vital Signs Date Time Temp Pulse Resp B/P (MAP) Pulse Ox O2 Delivery O2 Flow Rate FiO2 01/02/19 12:42 116 26 30 01/02/19 12:00 30 01/02/19 12:00 Mechanical Ventilator 01/02/19 12:00 98.2 116 22 101/68 (79) 97 01/02/19 10:44 119 21 30 01/02/19 09:15 122 26 30 01/02/19 08:46 119 01/02/19 08:00 30 01/02/19 08:00 Mechanical Ventilator 01/02/19 08:00 99.5 125 28 104/64 (77) 98 01/02/19 07:10 123 24 30 01/02/19 05:29 118 22 30 01/02/19 04:00 100.0 125 21 100/69 (79) 97 01/02/19 04:00 Mechanical Ventilator 01/02/19 04:00 30 01/02/19 04:00 111 01/02/19 02:43 119 22 30 01/02/19 00:50 116 23 30 01/02/19 00:00 Mechanical Ventilator 01/02/19 00:00 99.4 120 24 107/67 (80) 98 01/02/19 00:00 119 01/01/19 22:45 114 22 30 01/01/19 20:35 117 23 30 01/01/19 20:00 114 01/01/19 20:00 30 01/01/19 20:00 Mechanical Ventilator 01/01/19 20:00 98.6 114 23 114/76 (89) 99 01/01/19 18:40 112 21 30 01/01/19 17:06 117 23 30 01/01/19 16:00 98.5 112 20 104/67 (79) 98 01/01/19 16:00 111 01/01/19 16:00 30 01/01/19 16:00 Mechanical Ventilator 01/01/19 14:44 119 28 30 I&O Intake and Output 01/01/19 01/02/19 19:00 07:00 Intake Total 990 ml 910 ml Output Total 1200 ml Balance -210 ml 910 ml Intake Free Water 450 ml 70 ml IV Total 300 ml Tube Feeding 540 ml 540 ml Output Urine Total 300 ml Stool Total 900 ml Dressing: saturated Wound: other Drains: other Cardiovascular: RSR Respiratory: decreased breath sounds Abdomen: soft, non-tender, non-distended Extremities: no cyanosis Laboratory Tests Test 01/02/19 03:39 White Blood Count 16.1 K/UL (4.8-10.8) H Red Blood Count 3.24 M/UL (4.70-6.10) L Hemoglobin 9.9 G/DL (14.2-18.0) L Hematocrit 29.6 % (42.0-52.0) L Mean Corpuscular Volume 91 FL (80-99) Mean Corpuscular Hemoglobin 30.4 PG (27.0-31.0) Mean Corpuscular Hemoglobin Concent 33.3 G/DL (32.0-36.0) Red Cell Distribution Width 15.8 % (11.6-14.8) H Platelet Count 241 K/UL (150-450) Mean Platelet Volume 8.3 FL (6.5-10.1) Neutrophils (%) (Auto) 84.9 % (45.0-75.0) H Lymphocytes (%) (Auto) 6.8 % (20.0-45.0) L Monocytes (%) (Auto) 4.7 % (1.0-10.0) Eosinophils (%) (Auto) 2.4 % (0.0-3.0) Basophils (%) (Auto) 1.1 % (0.0-2.0) Sodium Level 137 MMOL/L (136-145) Potassium Level 5.4 MMOL/L (3.5-5.1) H Chloride Level 103 MMOL/L (98-107) Carbon Dioxide Level 23 MMOL/L (21-32) Anion Gap 11 mmol/L (5-15) Blood Urea Nitrogen 30 mg/dL (7-18) H Creatinine 0.8 MG/DL (0.55-1.30) Estimat Glomerular Filtration Rate mL/min (>60) Glucose Level 184 MG/DL (74-106) H Calcium Level 9.0 MG/DL (8.5-10.1) Phosphorus Level 2.1 MG/DL (2.5-4.9) L Magnesium Level 2.1 MG/DL (1.8-2.4) Total Bilirubin 0.2 MG/DL (0.2-1.0) Direct Bilirubin < 0.1 MG/DL (0.0-0.3) Aspartate Amino Transf (AST/SGOT) 21 U/L (15-37) Alanine Aminotransferase (ALT/SGPT) 15 U/L (12-78) Alkaline Phosphatase 126 U/L (46-116) H Total Protein 8.7 G/DL (6.4-8.2) H Albumin 1.6 G/DL (3.4-5.0) L Lipase 946 U/L (73-393) H Plan Problems: (1) Decubitus skin ulcer Assessment & Plan: Pt presented on admission with multiple pressure injuries and Skin erosion. Pt has trach and no evidence of skin breakdown noted under trach collar. Unstageable pressure injury noted to L earlobe. Stable dry brown eschar noted(L) 0.7cm x (W)0.5cm. Gross erythema with denudement and multiple scattered partial thickness wounds noted to buttocks and base of scrotum extending into both posterior upper thighs.Moderate amt sanguineous exudate noted upon removal of drsgs. 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 Moderate amt sanguineous exudate noted (L)3cm x (W)1cm x (D)7.4cm.Erythema periwound secondary to skin erosions. Partially opened DTPI L ischium .Base of wound purple,fluctuant with red borders.Open areas at base of this wound are beefy red in colour.Moderate amt sanguineous exudate noted.(L)7cm x (W)6.8cm. DTPI R ischium.Wound is fluctuant-purple in center with surrounding Maroon colour, and is partially opened with a small area of 5% that is necrotic.(L) 6.5cm x (W)5.5cm. Red skin erosion periwound. Partial thickness pressure injury L hip. Base of wound is moist -viable. Edges adherent and dry. Periwound without erythema or induration(L)1.2cm x (W)0.5cm. Elongate partial thickness wound posterior upper L thigh .Base of wound is moist -viable .Small amt sanguineous exudate noted. (+) maceration along borders. Erythema without induration or elevation in skin temp noted.(L)2cm x (W )9.4cm. DTPI noted to R heel .Base of injury is indurated and maroon in colour. Periwound is firm without erythema. (L)1.5cm x (W)1cm.R heel without evidence of skin breakdown. Tx.Plan: Cleanse Sacrum with Saline. Loosely pack with Hydrogel impregnated Kerlix. Apply Triad Paste periwound. Cover with ABD pad. Daily and prn. Cleanse R and L ischial wounds with Saline. Apply Moisture Barrier Paste.Cover with abd pads Daily and prn. Apply Moisture Barrier to skin erosions on buttocks,scrotum, and posterior aspects of both thighs.Cover with ABD pad daily and prn. Cleanse wound L hip with Saline. Apply Moisture Barrier paste .Cover with Optifoam drsg Daily and prn. Cleanse wound posterior upper L thigh with saline .Apply Hydrogel. Cover with Optifoam drsg Daily and prn. Apply Cavilon Skin Barrier to L earlobe daily. Please monitor. Apply Cavilon Skin Barrier to L heel. Cover with Optifoam drsg. Change every 7 days and prn. Apply Cavilon Skin Barrier to R heel. Cover with Optifoam drsg .Change every 7 days and prn. Air fluidized mattress. Reposition every 2hours or as tolerated. Off-load heels with pillow. (2) Acute and chronic respiratory failure Assessment & Plan: cont with breathing treatments trach stable trach site clean will change dressings daily (3) Acute pancreatitis Assessment & Plan: Findings consistent with uncomplicated nonnecrotizing acute pancreatitis. No evidence of associated peripancreatic abscess Surgical changes as described, including right lower quadrant ileostomy, subtotal colectomy with Haroldo procedure. Wall thickening of the Haroldo pouch. This could indicate inflammation. However, this is also present on both of the prior 2 exams and may be baseline for this patient Evidence of mild anasarca, with edema of the subcutaneous fat. This is a new finding Chronic appearing decubitus changes of the bilateral ischia. Correlate with clinical findings Complete left lower lobe consolidation. This is similar to both of the prior CTs , and is likely a chronic finding. There is progressive chronic interstitial fibrotic change involving the right middle lobe. There is also right lower lobe granulomatous calcification Extensive pulmonary parenchymal opacities bilaterally may reflect acute inflammation/infection, edema, progressive chronic scarring, or combination of the above. These are considerably more extensive than on the prior study Trace bilateral pleural fluid New finding of nonobstructive right renal collecting system calculs 4 mm calculus within the bladder lumen. This may represent a bladder calculus, a calculus and left ureteral orifice, or recently passed stone. If either of the latter, no evidence of resultant hydronephrosis or hydroureter Suprapubic catheter. This is a new finding since the 2016 exams. Interim removal of previously demonstrated Bledsoe catheter Gastrostomy Left renal cysts. Subcentimeter low-attenuation right renal lesions, too small to characterize, most likely benign simple cysts. No further follow-up necessary elevated amylase/lipase trending down leukocytosis GNR Bacteremia transfused anemia Unfortunately patient not able to participate in exam and difficult to identify if clinically pancreatitis or just laboratory data. Recent CT with uncomplicated pancreatitis but enzymes still remain elevated. Patient tolerated tube feeds. Patient with gram-negative belle bacteremia likely from UTI. Patient remains febrile intermittently with worsening leukocytosis on IV antibiotics. -no acute surgical intervention planned -transfuse as per hematology -Abx as per ID -trend lip/[place] - recent finding based on CT given patient cannot given history or participate in exam. CT with uncomplicated pancreatitis. repeat CT A/P okay for diet / feeds for now. IV fluids Javier Ricardo Jan 02, 2019 13:57
--- NOTE | 2019-01-02 14:29 | NUR ---
RD ASSESSMENT & RECOMMENDATIONS SEE CARE ACTIVITY FOR COMPLETE ASSESSMENT DAILY ESTIMATED NEEDS: Needs based on critical care, wound/ 63kg 22-30 kcals/kg 6784-1225 total kcals 1.5-2 g protein/kg 94-126 g total protein 25-30 mL/kg 8574-1138 total fluid mLs NUTRITION DIAGNOSIS: 1) Increased kcal and protein needs r/t wound healing as evidenced by pt w/ multiple advanced wounds, including Unstageable wound at L earlobe. 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 3) Altered nutrition related lab values r/t clinical status as evidenced by hyperglycemia w/ POC glu (128-319), elev K (5.2, 5.7- now wnl-> back up 5.4, 5.3), elev Na (148 -> wnl), elev BUN (30). CURRENT TF:Glucerna 1.5 @ 45ml/hr x 24 hrs + PS BID (Provides 1080ml, 1620kcal, 89g + 22g prot, 2721mg K, 143g CHO) ENTERAL NUTRITION RECOMMENDATIONS: Nepro @ 35ml/hr x 24 hrs + Prosource 1pkt TID to provide to provide 840ml, 1512kcal, 68g +33g prot, 611ml free water - REC TF CHANGE NEPRO -> frequent episodes of hyperkalemia : will provide 890mg K per day (1831mg less K than current TF) - Add Prosource 1pkt TID to meet protein needs - Keep HOB >30degrees/ water flush per MD - Will provide 112g CHO per day ADDITIONAL RECOMMENDATIONS: * REcalibrate bed scale wt for accurate CBW * Rec TF change as above -> to NEPRO for less K content * Wound care: add MITCHELL BID + Vit C 500mg QD * Monitor BGs closely: improved w/ Levemir BID (added 12/28) . .
--- NOTE | 2019-01-02 14:50 | Infectious Diseases Prog Note ---
Assessment/Plan Assessment/Plan Assessment: Gram positive bacteremia- PICC line infection -12/26 2d echo: no vegetations 12/23 SP -Removal of PICC line - -12/20 1/ E. fecalis (S Van, amp), 1/ MRSA. PICC line; Peripheral NTD; Bcx NTD; 12/23 Neg Septic shock , SP Severe Sepsis 2ry to GNR bacteremia, PNA, sp Rx -01/02 CXR: Chronic appearing interstitial opacities are again demonstrated in the right upper lobe as well as more generalized. There is suggestion of small bilateralpleural effusions, unchanged -12/24 CXR: Bilateral interstitial and airspace opacities, worse in the right upper lobe, slightly worse than prior study. -12/21 CXR: Bilateral interstitial and airspace opacities, associated bronchiectasis are again demonstrated. There is blunting of the left costophrenic sulcus again demonstrated. -12/17 CXR: No significant interval change in the diffuse patchy bilateral reticular interstitial and airspace opacities. -CXR: Probable small left pleural effusion, also evident on prior study 2017. Bilateral interstitial disease, unchanged, suspect chronic. Correlate with clinical findings -sp CX MDR PsA (S Gentamicin, AMikacin, Cefepime, Aztreonam, Tobramycin); repeats sp cx 12/20 MRSA; likely colonzier as vent settings stable GNR bacteremia, likely from UTI -CT abd/p: Findings consistent with uncomplicated nonnecrotizing acute pancreatitis. No evidence of associated peripancreatic abscess Surgical changes as described, including right lower quadrant ileostomy, subtotal colectomy with Haroldo procedure. Wall thickening of the Haroldo pouch. This could indicate inflammation. However, this is also present on both of the prior 2 exams and may be baseline for this patien. Evidence of mild anasarca, with edema of the subcutaneous fat. This is a new finding. Chronic appearing decubitus changes of the bilateral ischia. Correlate with clinical findings. Complete left lower lobe consolidation. This is similar to both of the prior CTs, andis likely a chronic finding. There is progressive chronic interstitial fibrotic change involving the right middle lobe. There is also right lower lobe granulomatous calcification, Extensive pulmonary parenchymal opacities bilaterally may reflect acute inflammation/infection, edema, progressive chronic scarring, orcombination of the above. These are considerably more extensive than on the prior study -u/a 10-15, nit neg, luek +3; ucx 50-60k Enterococcus (Vanco resist; S AMp), 40-50 K Proteus -12/07 Bcx 3/ Proteus; 12/08 Bcx 1/4 Proteus (S Aztreonam; R Cipro, levo; I Imipenem); Acute pancreatitis -lipase ~1k Fever - recurrent- in the setting of bacteremia and pancreaitis; Leukocytosis , recurrent, increased--in the setting of bacteremia, UTI and acute pancreatitis -CT abd/p Suspected active decubitus ulcer right side with evidence of drainage. Correlate clinically. No deeper abscess or drainable collections identified. The ulcer probes to the right ischium. Acute osteomyelitis or acute on chronic osteomyelitis may be considered. Chronic bilateral grade 4 decubitus ulcers with the large areas absent eroded posterior ischia and absent lower sacrum and coccyx due to previous osteomyelitis. Scrotal swelling with skin thickening and suggestion of heterogeneous fluid within the scrotal sac. Correlate clinically. No evidence of intra-abdominal or pelvic abscess or other acute pathology.Chronic dense left posterior basilar consolidation/atelectasis. Extensive fibrosis and cystic replacement anterior right lung base middle lobe. Sacral decubitus ulcer- w/ acute or acute on chronic OM --sacral wound cx GNR #1, #2 CT 12/30/18 - OM of sacrum CONS bacteremia- likely contaminant -12/12 Bcx 1/ CONS; 12/14 Bcx Neg MAULIK, improving dysphagia s/p peg COPD GBS quadriplegia chronic resp failure s/p trach HTN CVA, nonverbal anemia SNF resident Plan: -Continue Linezolid #13 for E. fecalis and MRSA bacteremia in the setting of vancomycin allergy -add Aztreonam pending wound cx -will likely treat for 6 weeks for OM pending sacral wound cx -12/22 SP Aztreonam #14 -12/21 SP INH tobramycin #7 -12/16 SP IV Daptomycin #7 -f/u Bcx x2, sacral wound cx -Monitor CBC/CMP, temperatures -PEG/Trach care -Aspiration precautions -management of acute pancreatitis per primary team. -wound care per surgical team Subjective Allergies: Coded Allergies: PENICILLINS (Unverified Allergy, Unknown, 02/26/16) POLYMYXIN B (Unverified Allergy, Unknown, 02/26/16) VANCOMYCIN (Unverified Allergy, Unknown, 02/26/16) Subjective afebrile leukocytosis increased Objective Vital Signs Last 24 Hour Vital Signs Date Time Temp Pulse Resp B/P (MAP) Pulse Ox O2 Delivery O2 Flow Rate FiO2 01/02/19 12:42 116 26 30 01/02/19 12:00 30 01/02/19 12:00 Mechanical Ventilator 01/02/19 12:00 98.2 116 22 101/68 (79) 97 01/02/19 10:44 119 21 30 01/02/19 09:15 122 26 30 01/02/19 08:46 119 01/02/19 08:00 30 01/02/19 08:00 Mechanical Ventilator 01/02/19 08:00 99.5 125 28 104/64 (77) 98 01/02/19 07:10 123 24 30 01/02/19 05:29 118 22 30 01/02/19 04:00 100.0 125 21 100/69 (79) 97 01/02/19 04:00 Mechanical Ventilator 01/02/19 04:00 30 01/02/19 04:00 111 01/02/19 02:43 119 22 30 01/02/19 00:50 116 23 30 01/02/19 00:00 Mechanical Ventilator 01/02/19 00:00 99.4 120 24 107/67 (80) 98 01/02/19 00:00 119 01/01/19 22:45 114 22 30 01/01/19 20:35 117 23 30 01/01/19 20:00 114 01/01/19 20:00 30 01/01/19 20:00 Mechanical Ventilator 01/01/19 20:00 98.6 114 23 114/76 (89) 99 01/01/19 18:40 112 21 30 01/01/19 17:06 117 23 30 01/01/19 16:00 98.5 112 20 104/67 (79) 98 01/01/19 16:00 111 01/01/19 16:00 30 01/01/19 16:00 Mechanical Ventilator Height (Feet): 5 Height (Inches): 8.00 Weight (Pounds): 146 Objective HEENT: Eyes were normal. ENT, mucous membranes were not dehydrated. NECK: Supple. There was no goiter. No mass. No lymphadenopathy. There was no JVD. No bruits. Carotid upstroke was 2+. LUNGS: Clear. HEART: PMI was in the fifth left intercostal space in midclavicular line. There was normal S1 and normal S2. There was no murmur. No arrhythmia. No S3. No S4. No pericardial rub. ABDOMEN: Soft and nontender without organomegaly. There were no masses palpable. Normal bowel sounds without bruits. There was no guarding. No rebound tenderness. No ascites. No hernia. No CVA tenderness. EXTREMITIES: No cyanosis, no clubbing, and no edema. Extremities were warm. Microbiology Date/Time Source Procedure Growth Status 12/30/18 17:50 Blood Blood Culture - Preliminary NO GROWTH AFTER 48 HOURS Resulted 12/30/18 17:50 Blood Blood Culture - Preliminary NO GROWTH AFTER 48 HOURS Resulted 12/30/18 17:37 Stool Clostridium difficile Toxin Assay - Final Complete 12/30/18 17:37 Sacral Wound Gram Stain - Final Resulted 12/30/18 17:37 Wound Culture - Preliminary Gram Negative Bacillus 1 Gram Negative Bacillus 2 Resulted Laboratory Tests Test 01/02/19 03:39 White Blood Count 16.1 K/UL (4.8-10.8) H Red Blood Count 3.24 M/UL (4.70-6.10) L Hemoglobin 9.9 G/DL (14.2-18.0) L Hematocrit 29.6 % (42.0-52.0) L Mean Corpuscular Volume 91 FL (80-99) Mean Corpuscular Hemoglobin 30.4 PG (27.0-31.0) Mean Corpuscular Hemoglobin Concent 33.3 G/DL (32.0-36.0) Red Cell Distribution Width 15.8 % (11.6-14.8) H Platelet Count 241 K/UL (150-450) Mean Platelet Volume 8.3 FL (6.5-10.1) Neutrophils (%) (Auto) 84.9 % (45.0-75.0) H Lymphocytes (%) (Auto) 6.8 % (20.0-45.0) L Monocytes (%) (Auto) 4.7 % (1.0-10.0) Eosinophils (%) (Auto) 2.4 % (0.0-3.0) Basophils (%) (Auto) 1.1 % (0.0-2.0) Sodium Level 137 MMOL/L (136-145) Potassium Level 5.4 MMOL/L (3.5-5.1) H Chloride Level 103 MMOL/L (98-107) Carbon Dioxide Level 23 MMOL/L (21-32) Anion Gap 11 mmol/L (5-15) Blood Urea Nitrogen 30 mg/dL (7-18) H Creatinine 0.8 MG/DL (0.55-1.30) Estimat Glomerular Filtration Rate mL/min (>60) Glucose Level 184 MG/DL (74-106) H Calcium Level 9.0 MG/DL (8.5-10.1) Phosphorus Level 2.1 MG/DL (2.5-4.9) L Magnesium Level 2.1 MG/DL (1.8-2.4) Total Bilirubin 0.2 MG/DL (0.2-1.0) Direct Bilirubin < 0.1 MG/DL (0.0-0.3) Aspartate Amino Transf (AST/SGOT) 21 U/L (15-37) Alanine Aminotransferase (ALT/SGPT) 15 U/L (12-78) Alkaline Phosphatase 126 U/L (46-116) H Total Protein 8.7 G/DL (6.4-8.2) H Albumin 1.6 G/DL (3.4-5.0) L Lipase 946 U/L (73-393) H Current Medications Medications (Trade) Dose Ordered Sig/Fransisco Route PRN Reason Start Time Stop Time Status Last Admin Dose Admin Acetaminophen (Tylenol) 650 mg Q4H PRN GT For Pain 12/28/18 05:00 01/06/19 16:59 Albuterol/ Ipratropium (Albuterol/ Ipratropium) 3 ml Q4H PRN HHN Shortness of Breath 12/28/18 17:45 01/02/19 17:44 Calcitonin Stitzer (Miacalcin) 1 sprays DAILY NASAL 12/28/18 09:00 01/24/19 10:59 01/02/19 09:40 Chlorhexidine Gluconate (Sandar-Hex 2%) 1 applic DAILY@1999 TOPIC 12/28/18 20:00 01/09/19 19:59 01/01/19 20:28 Dextrose (Dextrose 50%) 25 ml Q30M PRN IV Hypoglycemia 01/01/19 00:15 01/31/19 00:14 Dextrose (Dextrose 50%) 50 ml Q30M PRN IV Hypoglycemia 01/01/19 00:15 01/31/19 00:14 Diltiazem HCl (Cardizem) 10 mg BIDPRN PRN IVP FOR HR >140 12/28/18 08:45 01/11/19 08:44 Fenofibrate (Tricor) 145 mg DAILY ORAL 12/31/18 09:00 01/30/19 08:59 01/02/19 09:39 Gemfibrozil (Lopid) 600 mg TWICE A DAY GT 12/28/18 09:00 01/14/19 10:14 01/02/19 09:39 Heparin Sodium (Porcine) (Heparin 5000 units/ml) 5,000 units EVERY 12 HOURS SUBQ 12/28/18 09:00 01/06/19 20:59 01/02/19 09:42 Insulin Aspart (NovoLOG) EVERY 6 HOURS SUBQ 01/01/19 06:00 01/31/19 05:59 01/02/19 12:32 Insulin Detemir (Levemir) 15 units Q12HR SUBQ 12/29/18 21:00 01/27/19 13:59 01/02/19 09:43 Lansoprazole (Prevacid) 30 mg BID GT 12/28/18 09:00 01/16/19 08:59 01/02/19 09:39 Linezolid 300 ml @ 300 mls/hr Q12HR IVPB 12/28/18 09:00 01/06/19 08:59 01/02/19 09:39 Nateglinide (Starlix) 120 mg Q8HR ORAL 12/28/18 06:00 01/17/19 21:59 01/02/19 13:41 Nitroglycerin (Ntg) 0.4 mg Q5M PRN SL Prn Chest Pain 12/28/18 04:50 01/06/19 16:59 Ondansetron HCl (Zofran) 4 mg Q6H PRN IVP Nausea & Vomiting 12/28/18 05:00 01/06/19 16:59 01/01/19 13:49 Polyethylene Glycol (Miralax) 17 gm DAILYPRN PRN GT Constipation 12/28/18 09:45 01/06/19 16:59 Aminah Champagne M.D. Jan 02, 2019 14:50
--- NOTE | 2019-01-02 15:44 | NUR ---
NURSE NOTES: vital signs stable, dressing changed , bed bath given, repositioned, continue monitoring.
[2019-01-02 16:00] VITALS: BP 93/63
[2019-01-02] MEDS: Aztreonam Inj 2 GM in D5W 110 ML IVPB SCH ×2 (16:29→23:47)
--- NOTE | 2019-01-02 19:06 | NUR ---
HAND-OFF: Report given to STEVE SCHILLING, NO ANY DISTRESS AT THIS TIME.
[2019-01-02] MEDS: Dyna-Hex 2% Top Sol 2oz TOPIC SCH (19:42)
--- NOTE | 2019-01-02 19:42 | Cardiology Progress Note ---
Assessment/Plan Assessment/Plan 1. Supraventricular tachycardia. recurrent 12/09 and 12/10 2. Renal insufficiency. 3. Hyponatremia. 4. 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 6. History of bowel resection. 7. History of CVA. 8. Chronic tracheostomy. 9. Diabetes mellitus. 10 pancreatitis 11. anemai off Cardizem via gtube and dig and atenolol last psvt was on 12/31 short lived watch for recurrren ce heart rate stable Subjective ROS Limited/Unobtainable: Yes Subjective on the vent Objective Last 24 Hour Vital Signs Date Time Temp Pulse Resp B/P (MAP) Pulse Ox O2 Delivery O2 Flow Rate FiO2 01/02/19 17:02 112 30 30 01/02/19 16:00 30 01/02/19 16:00 98.2 114 26 93/63 (73) 97 01/02/19 16:00 Mechanical Ventilator 01/02/19 16:00 115 01/02/19 15:20 117 26 30 01/02/19 12:42 116 26 30 01/02/19 12:00 30 01/02/19 12:00 117 01/02/19 12:00 Mechanical Ventilator 01/02/19 12:00 98.2 116 22 101/68 (79) 97 01/02/19 10:44 119 21 30 01/02/19 09:15 122 26 30 01/02/19 08:46 119 01/02/19 08:00 30 01/02/19 08:00 Mechanical Ventilator 01/02/19 08:00 99.5 125 28 104/64 (77) 98 01/02/19 07:10 123 24 30 01/02/19 05:29 118 22 30 01/02/19 04:00 100.0 125 21 100/69 (79) 97 01/02/19 04:00 Mechanical Ventilator 01/02/19 04:00 30 01/02/19 04:00 111 01/02/19 02:43 119 22 30 01/02/19 00:50 116 23 30 01/02/19 00:00 Mechanical Ventilator 01/02/19 00:00 99.4 120 24 107/67 (80) 98 01/02/19 00:00 119 01/01/19 22:45 114 22 30 01/01/19 20:35 117 23 30 01/01/19 20:00 114 01/01/19 20:00 30 01/01/19 20:00 Mechanical Ventilator 01/01/19 20:00 98.6 114 23 114/76 (89) 99 General Appearance: no apparent distress, alert, on vent, patient on isolation Extremities: no swelling Intake and Output 01/01/19 01/02/19 18:59 06:59 Intake Total 990 ml 910 ml Output Total 1200 ml Balance -210 ml 910 ml Intake Free Water 450 ml 70 ml IV Total 300 ml Tube Feeding 540 ml 540 ml Output Urine Total 300 ml Stool Total 900 ml Laboratory Tests Test 01/02/19 03:39 White Blood Count 16.1 K/UL (4.8-10.8) H Red Blood Count 3.24 M/UL (4.70-6.10) L Hemoglobin 9.9 G/DL (14.2-18.0) L Hematocrit 29.6 % (42.0-52.0) L Mean Corpuscular Volume 91 FL (80-99) Mean Corpuscular Hemoglobin 30.4 PG (27.0-31.0) Mean Corpuscular Hemoglobin Concent 33.3 G/DL (32.0-36.0) Red Cell Distribution Width 15.8 % (11.6-14.8) H Platelet Count 241 K/UL (150-450) Mean Platelet Volume 8.3 FL (6.5-10.1) Neutrophils (%) (Auto) 84.9 % (45.0-75.0) H Lymphocytes (%) (Auto) 6.8 % (20.0-45.0) L Monocytes (%) (Auto) 4.7 % (1.0-10.0) Eosinophils (%) (Auto) 2.4 % (0.0-3.0) Basophils (%) (Auto) 1.1 % (0.0-2.0) Sodium Level 137 MMOL/L (136-145) Potassium Level 5.4 MMOL/L (3.5-5.1) H Chloride Level 103 MMOL/L (98-107) Carbon Dioxide Level 23 MMOL/L (21-32) Anion Gap 11 mmol/L (5-15) Blood Urea Nitrogen 30 mg/dL (7-18) H Creatinine 0.8 MG/DL (0.55-1.30) Estimat Glomerular Filtration Rate mL/min (>60) Glucose Level 184 MG/DL (74-106) H Calcium Level 9.0 MG/DL (8.5-10.1) Phosphorus Level 2.1 MG/DL (2.5-4.9) L Magnesium Level 2.1 MG/DL (1.8-2.4) Total Bilirubin 0.2 MG/DL (0.2-1.0) Direct Bilirubin < 0.1 MG/DL (0.0-0.3) Aspartate Amino Transf (AST/SGOT) 21 U/L (15-37) Alanine Aminotransferase (ALT/SGPT) 15 U/L (12-78) Alkaline Phosphatase 126 U/L (46-116) H Total Protein 8.7 G/DL (6.4-8.2) H Albumin 1.6 G/DL (3.4-5.0) L Lipase 946 U/L (73-393) H Donny Kelley MD Jan 02, 2019 19:42
--- NOTE | 2019-01-02 19:45 | NUR ---
NURSE NOTES: PATIENT DROWSY, ON TRACH TO VENT AC18/TV500/FIO2 30%/PEEP 5, O2 SATURATION OVER 97% NOTED, ABDOMEN DISTENDED, SOFT, NON TENDER, G TUBE INTACT AND PATENT, ON GLUCERNA 1.5 AT 45ML/HR, NO RESIDUE NOTED, COLOSTOMY BAG TO RLL, DARK GREENISH YELLOWISH SOFT AND LIQUID STOOL OUTED, SUPRAPUBIC CATH INTACT AND PATENT, THIN YELLOW URINE OUTED, PICC LINE TO LEFT UPPER ARM, INTACT AND PATENT, KEPT HOB OVER 30 DEGREE, ON QUARTET BED, PROVIDED CALL LIGHT WITHIN REACH, WILL CONTINUE TO MONITOR.
[2019-01-02 20:00] VITALS: BP 98/69
--- NOTE | 2019-01-02 22:00 | NUR ---
NURSE NOTES: ORAL CARE WAS DONE, NO PAIN OR DISTRESS NOTED.
--- NOTE | 2019-01-02 23:45 | NUR ---
NURSE NOTES: SEEN THE PATIENT BY DR. BOBO, NO NEW ORDER STATUS.
[2019-01-03] VITALS: BP 98/60
--- NOTE | 2019-01-03 02:00 | NUR ---
NURSE NOTES: REPOSITIONED, ORAL CARE WAS DONE.
[2019-01-03 04:00] VITALS: BP 106/62
--- NOTE | 2019-01-03 04:00 | NUR ---
NURSE NOTES: MORNING CARE WAS DONE, KEPT HOB 30 DEGREE FOR ASPIRATION PRECAUTION.
[2019-01-03] MEDS: NovoLOG Insulin Flexpen SUBQ SCH ×4 (05:43→23:44)
[2019-01-03 05:44] LABS: BASOPHILS % (AUTO) 1.3 % (0.0-2.0); EOSINOPHILS % (AUTO) 2.3 % (0.0-3.0); HEMATOCRIT 26.4 % (42.0-52.0); HEMOGLOBIN 8.9 G/DL (14.2-18.0); LYMPHOCYTES % (AUTO) 7.5 % (20.0-45.0); MEAN CORPUSCULAR VOLUME 92 FL (80-99); MONOCYTES % (AUTO) 6.1 % (1.0-10.0); NEUTROPHILS % (AUTO) 82.8 % (45.0-75.0); PLATELET COUNT 204 K/UL (150-450); RED BLOOD COUNT 2.86 M/UL (4.70-6.10); RED CELL DISTRIBUTION WIDTH 16.3 % (11.6-14.8); WHITE BLOOD COUNT 12.5 K/UL (4.8-10.8)
[2019-01-03 05:58] LABS: ALANINE AMINOTRANSFERASE 9 U/L (12-78); ALBUMIN 1.4 G/DL (3.4-5.0); ALBUMIN/GLOBULIN RATIO 0.2 (1.0-2.7); ALKALINE PHOSPHATASE 111 U/L (46-116); ANION GAP 13 mmol/L (5-15); ASPARTATE AMINO TRANSFERASE 14 U/L (15-37); BILIRUBIN,TOTAL 0.2 MG/DL (0.2-1.0); BLOOD UREA NITROGEN 23 mg/dL (7-18); CALCIUM 8.3 MG/DL (8.5-10.1); CARBON DIOXIDE 23 MMOL/L (21-32); CHLORIDE 102 MMOL/L (98-107); CREATININE 0.7 MG/DL (0.55-1.30); POTASSIUM 4.6 MMOL/L (3.5-5.1); SODIUM 137 MMOL/L (136-145)
--- NOTE | 2019-01-03 06:21 | NUR ---
NURSE NOTES: NO ACUTE DISTRESS NOTED AT THIS SHIFT.
--- NOTE | 2019-01-03 07:25 | NUR ---
HAND-OFF: Report given to SHAKIR DIALLO.
--- NOTE | 2019-01-03 07:55 | NUR ---
NURSE NOTES: Received patient from SHAKIR Lebron. Patient observed to be very drowsy. When patient's name called, patient arouse, opens eyes spontaneously and responds to questions with head nods yes and no. Patient does not appear in any acute distress and is free from facial grimacing. Patient is afebrile. Patient is ST on the monitor. Patient is with a tracheostomy to vent with vent settings of AC 18, 500 TV, 30%, PEEP +5. Upon auscultation, rhonchi is heard throughout. Patient has hyperactive belly sounds with colostomy bag with yellowish brownish stool. Glucerna 1.5 is running via his GT at 45 ml/hr. A 50 ml flush was given. Patient has a suprapubic catheter draining large amounts of cloudy yellow urine. Patient has a EDA PICC that is asymptomatic, patent and intact. Safety Alarms are set and audible. Safety measures are in place with bed locked in the lowest position, call light within reach. Will continue to monitor and follow plan of care. Addendum: 01/03/19 at 1841 by YOEL RUBIO RN oral care was performed
[2019-01-03 08:00] VITALS: BP 90/55
--- NOTE | 2019-01-03 09:30 | Progress Note ---
DATE: 01/02/2019 SUBJECTIVE: The patient is awake, alert, afebrile, and hemodynamically stable. PHYSICAL EXAMINATION: VITAL SIGNS: Blood pressure is 98/66, pulse is 115, respirations 27, and temperature 98.1. HEENT: Eyes were normal. ENT, mucous membranes were moist and intact. NECK: Supple with no JVD without lymph nodes. Tracheostomy site is clean. LUNGS: Clear without rhonchi, rales, or wheezing. Secretions are small, thin, and barros. HEART: Normal sounds with regular beats. There is no S3, S4, or pericardial rub. ABDOMEN: Soft and nontender with normal bowel sounds. EXTREMITIES: Warm without cyanosis, clubbing, or edema. LABORATORY DATA: Hemoglobin is 9.9, hematocrit 29.3, MCV of 91, WBC of 16.1, and platelets 241,000. His BUN and creatinine is 30 and 0.9 respectively. Sodium is 137, potassium 5.4, chloride 103, CO2 was 23. . IMPRESSION: The patient again developed leukocytosis. The patient 12/29/2018 persistent tachycardia. Again, will be discussing with Infectious Disease specialist. for temperature above 100.5. Neema Hutchins M.D. DR: RUPINDER JOB#: [id number] CC:
[2019-01-03] MEDS: Aztreonam Inj 2 GM in D5W 110 ML IVPB SCH ×3 (09:50→23:35)
[2019-01-03] MEDS: Levemir Flexpen SUBQ SCH ×2 (10:03→21:29)
[2019-01-03] MEDS: Heparin 5000 units/ml inj SUBQ SCH ×2 (10:10→21:30)
--- NOTE | 2019-01-03 11:01 | GI Progress Note ---
Assessment/Plan Problems: (1) Colostomy care ICD Codes: Z43.3 - Encounter for attention to colostomy SNOMED: 893545031 (2) Anemia ICD Codes: D64.9 - Anemia, unspecified SNOMED: 187151563 (3) Feeding by G-tube ICD Codes: Z93.1 - Gastrostomy status SNOMED: 012167389, 054149108 (4) Abdominal wall cellulitis ICD Codes: L03.311 - Cellulitis of abdominal wall SNOMED: 91363893 (5) Acute pancreatitis ICD Codes: K85.90 - Acute pancreatitis without necrosis or infection, unspecified SNOMED: 133500356 (6) Pancreatitis ICD Codes: K85.90 - Acute pancreatitis without necrosis or infection, unspecified SNOMED: 25951731 Status: stable Status Narrative Discussed with Dr. Jackson Assessment/Plan Occult blood stool positive >>1/3>>> repeat stool ob fu CBC Hepatitis panel negative Pancreatitis secondary to hypertriglyceridemia Elevated CA 19, mild TriCor and lopid Stable H&H - PRN transfusions ppi daily GTFs per RD Trend lipase Supportive care The patient was seen and examined at bedside and all new and available data was reviewed in the patients chart. I agree with the above findings, impression and plan. (Patient seen earlier today. Signature stamp does not reflect patient encounter time.). - Benjamin Jackson MD Subjective Subjective Limited Objective Last 24 Hour Vital Signs Date Time Temp Pulse Resp B/P (MAP) Pulse Ox O2 Delivery O2 Flow Rate FiO2 01/03/19 09:20 107 26 30 01/03/19 08:00 30 01/03/19 07:08 109 23 30 01/03/19 05:19 105 23 30 01/03/19 04:00 30 01/03/19 04:00 Mechanical Ventilator 01/03/19 04:00 98.1 109 22 106/62 (77) 99 01/03/19 03:49 108 01/03/19 03:30 112 26 30 01/03/19 01:30 111 25 30 01/03/19 00:00 Mechanical Ventilator 01/03/19 00:00 100.0 117 25 98/60 (73) 97 01/03/19 00:00 30 01/02/19 23:30 113 26 30 01/02/19 23:29 117 01/02/19 21:16 115 27 30 01/02/19 20:00 98.1 115 27 98/69 (79) 97 01/02/19 20:00 30 01/02/19 20:00 Mechanical Ventilator 01/02/19 19:30 114 24 30 01/02/19 19:27 116 01/02/19 17:02 112 30 30 01/02/19 16:00 30 01/02/19 16:00 98.2 114 26 93/63 (73) 97 01/02/19 16:00 Mechanical Ventilator 01/02/19 16:00 115 01/02/19 15:20 117 26 30 01/02/19 12:42 116 26 30 01/02/19 12:00 30 01/02/19 12:00 117 01/02/19 12:00 Mechanical Ventilator 01/02/19 12:00 98.2 116 22 101/68 (79) 97 Intake and Output 01/02/19 01/03/19 19:00 07:00 Intake Total 1100 ml 1030 ml Output Total 750 ml 700 ml Balance 350 ml 330 ml Intake Free Water 150 ml IV Total 410 ml 410 ml Tube Feeding 540 ml 540 ml Other 80 ml Output Urine Total 550 ml 400 ml Stool Total 200 ml 300 ml Laboratory Tests Test 01/03/19 04:35 White Blood Count 12.5 K/UL (4.8-10.8) H Red Blood Count 2.86 M/UL (4.70-6.10) L Hemoglobin 8.9 G/DL (14.2-18.0) L Hematocrit 26.4 % (42.0-52.0) L Mean Corpuscular Volume 92 FL (80-99) Mean Corpuscular Hemoglobin 30.9 PG (27.0-31.0) Mean Corpuscular Hemoglobin Concent 33.5 G/DL (32.0-36.0) Red Cell Distribution Width 16.3 % (11.6-14.8) H Platelet Count 204 K/UL (150-450) Mean Platelet Volume 7.9 FL (6.5-10.1) Neutrophils (%) (Auto) 82.8 % (45.0-75.0) H Lymphocytes (%) (Auto) 7.5 % (20.0-45.0) L Monocytes (%) (Auto) 6.1 % (1.0-10.0) Eosinophils (%) (Auto) 2.3 % (0.0-3.0) Basophils (%) (Auto) 1.3 % (0.0-2.0) Sodium Level 137 MMOL/L (136-145) Potassium Level 4.6 MMOL/L (3.5-5.1) Chloride Level 102 MMOL/L (98-107) Carbon Dioxide Level 23 MMOL/L (21-32) Anion Gap 13 mmol/L (5-15) Blood Urea Nitrogen 23 mg/dL (7-18) H Creatinine 0.7 MG/DL (0.55-1.30) Estimat Glomerular Filtration Rate mL/min (>60) Glucose Level 208 MG/DL (74-106) H Calcium Level 8.3 MG/DL (8.5-10.1) L Phosphorus Level 2.0 MG/DL (2.5-4.9) L Magnesium Level 2.0 MG/DL (1.8-2.4) Total Bilirubin 0.2 MG/DL (0.2-1.0) Aspartate Amino Transf (AST/SGOT) 14 U/L (15-37) L Alanine Aminotransferase (ALT/SGPT) 9 U/L (12-78) L Alkaline Phosphatase 111 U/L (46-116) Total Protein 8.2 G/DL (6.4-8.2) Albumin 1.4 G/DL (3.4-5.0) L Globulin 6.8 g/dL Albumin/Globulin Ratio 0.2 (1.0-2.7) L Lipase 805 U/L (73-393) H Height (Feet): 5 Height (Inches): 8.00 Weight (Pounds): 146 General Appearance: WD/WN, no apparent distress, alert Cardiovascular: normal rate Respiratory/Chest: normal breath sounds, no respiratory distress, other - Mechanical ventilator Abdominal Exam: normal bowel sounds, non tender, soft, GT site - Clean dry and intact Extremities: non-tender Cirilo Germain NP Jan 03, 2019 11:01
--- NOTE | 2019-01-03 11:06 | Pulmonolgy Critical Care Note ---
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 Assessment/Plan: hemodynamically getting better Respiratory: adjust tidal volume, monitor respiratory rate, adjust FIO2, CXR Cardiac: continue pressors, continue to monitor HR/BP Renal: F/U I&O Infectious Disease: check cultures, continue antibiotics Gastrointestinal: continue feedings/current rate Endocrine: monitor blood sugar, continue sliding scale insulin Hematologic: monitor H/H, transfuse if hgb<8.5 Neurologic: PRN Ativan, PRN Morphine, keep patient comfortable Affect: PRN ativan Disposition: keep in ICU Notes Reviewed: cardio, 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 with: nurses, consultants, social work case managermanager quality systems - Objective Last 24 Hour Vital Signs Date Time Temp Pulse Resp B/P (MAP) Pulse Ox O2 Delivery O2 Flow Rate FiO2 01/03/19 09:20 107 26 30 01/03/19 08:00 30 01/03/19 07:08 109 23 30 01/03/19 05:19 105 23 30 01/03/19 04:00 30 01/03/19 04:00 Mechanical Ventilator 01/03/19 04:00 98.1 109 22 106/62 (77) 99 01/03/19 03:49 108 01/03/19 03:30 112 26 30 01/03/19 01:30 111 25 30 01/03/19 00:00 Mechanical Ventilator 01/03/19 00:00 100.0 117 25 98/60 (73) 97 01/03/19 00:00 30 01/02/19 23:30 113 26 30 01/02/19 23:29 117 01/02/19 21:16 115 27 30 01/02/19 20:00 98.1 115 27 98/69 (79) 97 01/02/19 20:00 30 01/02/19 20:00 Mechanical Ventilator 01/02/19 19:30 114 24 30 01/02/19 19:27 116 01/02/19 17:02 112 30 30 01/02/19 16:00 30 01/02/19 16:00 98.2 114 26 93/63 (73) 97 01/02/19 16:00 Mechanical Ventilator 01/02/19 16:00 115 01/02/19 15:20 117 26 30 01/02/19 12:42 116 26 30 01/02/19 12:00 30 01/02/19 12:00 117 01/02/19 12:00 Mechanical Ventilator 01/02/19 12:00 98.2 116 22 101/68 (79) 97 Status: awake HEENT: atraumatic Neck: full ROM Heart: HR/BP stable Abdomen: soft, non-tender Extremities: no C/C/E Accucheck: 269 Critical Care - Subjective ROS Limited/Unobtainable: No Condition: critical EKG Rhythm: Sinus Rhythm FI02: 30 Vent Support Breath Rate: 18 Vent Support Mode: AC Vent Tidal Volume: 500 Sputum Amount: Small PEEP: 5.0 PIP: 32 Tube Feeding Amount: 45 I&O: Intake and Output 01/02/19 01/03/19 19:00 07:00 Intake Total 1100 ml 1030 ml Output Total 750 ml 700 ml Balance 350 ml 330 ml Intake Free Water 150 ml IV Total 410 ml 410 ml Tube Feeding 540 ml 540 ml Other 80 ml Output Urine Total 550 ml 400 ml Stool Total 200 ml 300 ml CXR: no change/ chronic fibrotic changes Labs: Laboratory Tests Test 01/03/19 04:35 White Blood Count 12.5 K/UL (4.8-10.8) H Red Blood Count 2.86 M/UL (4.70-6.10) L Hemoglobin 8.9 G/DL (14.2-18.0) L Hematocrit 26.4 % (42.0-52.0) L Mean Corpuscular Volume 92 FL (80-99) Mean Corpuscular Hemoglobin 30.9 PG (27.0-31.0) Mean Corpuscular Hemoglobin Concent 33.5 G/DL (32.0-36.0) Red Cell Distribution Width 16.3 % (11.6-14.8) H Platelet Count 204 K/UL (150-450) Mean Platelet Volume 7.9 FL (6.5-10.1) Neutrophils (%) (Auto) 82.8 % (45.0-75.0) H Lymphocytes (%) (Auto) 7.5 % (20.0-45.0) L Monocytes (%) (Auto) 6.1 % (1.0-10.0) Eosinophils (%) (Auto) 2.3 % (0.0-3.0) Basophils (%) (Auto) 1.3 % (0.0-2.0) Sodium Level 137 MMOL/L (136-145) Potassium Level 4.6 MMOL/L (3.5-5.1) Chloride Level 102 MMOL/L (98-107) Carbon Dioxide Level 23 MMOL/L (21-32) Anion Gap 13 mmol/L (5-15) Blood Urea Nitrogen 23 mg/dL (7-18) H Creatinine 0.7 MG/DL (0.55-1.30) Estimat Glomerular Filtration Rate mL/min (>60) Glucose Level 208 MG/DL (74-106) H Calcium Level 8.3 MG/DL (8.5-10.1) L Phosphorus Level 2.0 MG/DL (2.5-4.9) L Magnesium Level 2.0 MG/DL (1.8-2.4) Total Bilirubin 0.2 MG/DL (0.2-1.0) Aspartate Amino Transf (AST/SGOT) 14 U/L (15-37) L Alanine Aminotransferase (ALT/SGPT) 9 U/L (12-78) L Alkaline Phosphatase 111 U/L (46-116) Total Protein 8.2 G/DL (6.4-8.2) Albumin 1.4 G/DL (3.4-5.0) L Globulin 6.8 g/dL Albumin/Globulin Ratio 0.2 (1.0-2.7) L Lipase 805 U/L (73-393) H Abhishek Guerra MD Jan 03, 2019 11:06
--- NOTE | 2019-01-03 11:45 | Surgery Progress Note ---
Surgery Progress Note Subjective Additional Comments leukocytosis improving. otherwise no acute events. labs noted. exam unchanged. Objective Last 24 Hour Vital Signs Date Time Temp Pulse Resp B/P (MAP) Pulse Ox O2 Delivery O2 Flow Rate FiO2 01/03/19 11:08 107 27 30 01/03/19 09:20 107 26 30 01/03/19 08:00 30 01/03/19 08:00 106 01/03/19 07:08 109 23 30 01/03/19 05:19 105 23 30 01/03/19 04:00 30 01/03/19 04:00 Mechanical Ventilator 01/03/19 04:00 98.1 109 22 106/62 (77) 99 01/03/19 03:49 108 01/03/19 03:30 112 26 30 01/03/19 01:30 111 25 30 01/03/19 00:00 Mechanical Ventilator 01/03/19 00:00 100.0 117 25 98/60 (73) 97 01/03/19 00:00 30 01/02/19 23:30 113 26 30 01/02/19 23:29 117 01/02/19 21:16 115 27 30 01/02/19 20:00 98.1 115 27 98/69 (79) 97 01/02/19 20:00 30 01/02/19 20:00 Mechanical Ventilator 01/02/19 19:30 114 24 30 01/02/19 19:27 116 01/02/19 17:02 112 30 30 01/02/19 16:00 30 01/02/19 16:00 98.2 114 26 93/63 (73) 97 01/02/19 16:00 Mechanical Ventilator 01/02/19 16:00 115 01/02/19 15:20 117 26 30 01/02/19 12:42 116 26 30 01/02/19 12:00 30 01/02/19 12:00 117 01/02/19 12:00 Mechanical Ventilator 01/02/19 12:00 98.2 116 22 101/68 (79) 97 I&O Intake and Output 01/02/19 01/03/19 19:00 07:00 Intake Total 1100 ml 1030 ml Output Total 750 ml 700 ml Balance 350 ml 330 ml Intake Free Water 150 ml IV Total 410 ml 410 ml Tube Feeding 540 ml 540 ml Other 80 ml Output Urine Total 550 ml 400 ml Stool Total 200 ml 300 ml Dressing: saturated Wound: other Drains: other Cardiovascular: RSR Respiratory: decreased breath sounds Abdomen: soft, present bowel sounds, other, non-distended Extremities: no cyanosis, other Laboratory Tests Test 01/03/19 04:35 White Blood Count 12.5 K/UL (4.8-10.8) H Red Blood Count 2.86 M/UL (4.70-6.10) L Hemoglobin 8.9 G/DL (14.2-18.0) L Hematocrit 26.4 % (42.0-52.0) L Mean Corpuscular Volume 92 FL (80-99) Mean Corpuscular Hemoglobin 30.9 PG (27.0-31.0) Mean Corpuscular Hemoglobin Concent 33.5 G/DL (32.0-36.0) Red Cell Distribution Width 16.3 % (11.6-14.8) H Platelet Count 204 K/UL (150-450) Mean Platelet Volume 7.9 FL (6.5-10.1) Neutrophils (%) (Auto) 82.8 % (45.0-75.0) H Lymphocytes (%) (Auto) 7.5 % (20.0-45.0) L Monocytes (%) (Auto) 6.1 % (1.0-10.0) Eosinophils (%) (Auto) 2.3 % (0.0-3.0) Basophils (%) (Auto) 1.3 % (0.0-2.0) Sodium Level 137 MMOL/L (136-145) Potassium Level 4.6 MMOL/L (3.5-5.1) Chloride Level 102 MMOL/L (98-107) Carbon Dioxide Level 23 MMOL/L (21-32) Anion Gap 13 mmol/L (5-15) Blood Urea Nitrogen 23 mg/dL (7-18) H Creatinine 0.7 MG/DL (0.55-1.30) Estimat Glomerular Filtration Rate mL/min (>60) Glucose Level 208 MG/DL (74-106) H Calcium Level 8.3 MG/DL (8.5-10.1) L Phosphorus Level 2.0 MG/DL (2.5-4.9) L Magnesium Level 2.0 MG/DL (1.8-2.4) Total Bilirubin 0.2 MG/DL (0.2-1.0) Aspartate Amino Transf (AST/SGOT) 14 U/L (15-37) L Alanine Aminotransferase (ALT/SGPT) 9 U/L (12-78) L Alkaline Phosphatase 111 U/L (46-116) Total Protein 8.2 G/DL (6.4-8.2) Albumin 1.4 G/DL (3.4-5.0) L Globulin 6.8 g/dL Albumin/Globulin Ratio 0.2 (1.0-2.7) L Lipase 805 U/L (73-393) H Plan Problems: (1) Decubitus skin ulcer Assessment & Plan: Pt presented on admission with multiple pressure injuries and Skin erosion. Pt has trach and no evidence of skin breakdown noted under trach collar. Unstageable pressure injury noted to L earlobe. Stable dry brown eschar noted(L) 0.7cm x (W)0.5cm. Gross erythema with denudement and multiple scattered partial thickness wounds noted to buttocks and base of scrotum extending into both posterior upper thighs.Moderate amt sanguineous exudate noted upon removal of drsgs. 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 Moderate amt sanguineous exudate noted (L)3cm x (W)1cm x (D)7.4cm.Erythema periwound secondary to skin erosions. Partially opened DTPI L ischium .Base of wound purple,fluctuant with red borders.Open areas at base of this wound are beefy red in colour.Moderate amt sanguineous exudate noted.(L)7cm x (W)6.8cm. DTPI R ischium.Wound is fluctuant-purple in center with surrounding Maroon colour, and is partially opened with a small area of 5% that is necrotic.(L) 6.5cm x (W)5.5cm. Red skin erosion periwound. Partial thickness pressure injury L hip. Base of wound is moist -viable. Edges adherent and dry. Periwound without erythema or induration(L)1.2cm x (W)0.5cm. Elongate partial thickness wound posterior upper L thigh .Base of wound is moist -viable .Small amt sanguineous exudate noted. (+) maceration along borders. Erythema without induration or elevation in skin temp noted.(L)2cm x (W )9.4cm. DTPI noted to R heel .Base of injury is indurated and maroon in colour. Periwound is firm without erythema. (L)1.5cm x (W)1cm.R heel without evidence of skin breakdown. UPDATE with Full thickness pressure injury sacrum resolving. Less depth noted to tunnel, but base of wound obscured due to size and shape of wound (L)2cm x (W )0.9cm with tunneling at 12 by 3cm. Full thickness wound R ischium with 60% loose soft necrosis. 40% slough with additional necrosis along edges and periwound .No odor noted. (L)6cm x (W)6.3cm x (D)3.2cm undermining 9-12 by 3.1cm @11O'Clock. MASD with Gross erythema with skin erosion entire buttocks extending down into both ischial and both upper thighs including scrotum and bilat groin areas. Scattered satellite lesions with small amt bleeding from these areas. Small area of dry eschar noted to L buttocks (L)1.9cm x (W)2cm. Reabsorbed DTPI with stable dry brown eschar R heel (L)1.5cm x (W)2.5cm Periwound without erythema ,induration or fluctuance. Small dry scab noted to L ear without erythema periwound. No new skin concerns noted. Tx.Plan: Cleanse Sacrum with Saline. Loosely pack with Hydrogel impregnated Kerlix. Apply Triad Paste periwound. Cover with ABD pad. Daily and prn. Cleanse R and L ischial wounds with Saline. Apply Moisture Barrier Paste.Cover with abd pads Daily and prn. Apply Moisture Barrier to skin erosions on buttocks,scrotum, and posterior aspects of both thighs.Cover with ABD pad daily and prn. Cleanse wound L hip with Saline. Apply Moisture Barrier paste .Cover with Optifoam drsg Daily and prn. Cleanse wound posterior upper L thigh with saline .Apply Hydrogel. Cover with Optifoam drsg Daily and prn. Apply Cavilon Skin Barrier to L earlobe daily. Please monitor. Apply Cavilon Skin Barrier to L heel. Cover with Optifoam drsg. Change every 7 days and prn. Apply Cavilon Skin Barrier to R heel. Cover with Optifoam drsg .Change every 7 days and prn. Air fluidized mattress. Reposition every 2hours or as tolerated. Off-load heels with pillow. (2) Acute and chronic respiratory failure Assessment & Plan: cont with breathing treatments trach stable trach site clean will change dressings daily (3) Acute pancreatitis Assessment & Plan: Findings consistent with uncomplicated nonnecrotizing acute pancreatitis. No evidence of associated peripancreatic abscess Surgical changes as described, including right lower quadrant ileostomy, subtotal colectomy with Haroldo procedure. Wall thickening of the Haroldo pouch. This could indicate inflammation. However, this is also present on both of the prior 2 exams and may be baseline for this patient Evidence of mild anasarca, with edema of the subcutaneous fat. This is a new finding Chronic appearing decubitus changes of the bilateral ischia. Correlate with clinical findings Complete left lower lobe consolidation. This is similar to both of the prior CTs , and is likely a chronic finding. There is progressive chronic interstitial fibrotic change involving the right middle lobe. There is also right lower lobe granulomatous calcification Extensive pulmonary parenchymal opacities bilaterally may reflect acute inflammation/infection, edema, progressive chronic scarring, or combination of the above. These are considerably more extensive than on the prior study Trace bilateral pleural fluid New finding of nonobstructive right renal collecting system calculs 4 mm calculus within the bladder lumen. This may represent a bladder calculus, a calculus and left ureteral orifice, or recently passed stone. If either of the latter, no evidence of resultant hydronephrosis or hydroureter Suprapubic catheter. This is a new finding since the 2016 exams. Interim removal of previously demonstrated Bledsoe catheter Gastrostomy Left renal cysts. Subcentimeter low-attenuation right renal lesions, too small to characterize, most likely benign simple cysts. No further follow-up necessary elevated amylase/lipase trending down leukocytosis GNR Bacteremia transfused anemia Unfortunately patient not able to participate in exam and difficult to identify if clinically pancreatitis or just laboratory data. Recent CT with uncomplicated pancreatitis but enzymes still remain elevated. Patient tolerated tube feeds. Patient with gram-negative belle bacteremia likely from UTI. Patient remains febrile intermittently with worsening leukocytosis on IV antibiotics. -no acute surgical intervention planned -transfuse as per hematology -Abx as per ID -trend lip/[place] - recent finding based on CT given patient cannot given history or participate in exam. CT with uncomplicated pancreatitis. repeat CT A/P okay for diet / feeds for now. IV fluids Javier Ricardo Jan 03, 2019 11:45
[2019-01-03 12:00] VITALS: BP 93/64
--- NOTE | 2019-01-03 12:30 | NUR ---
NURSE NOTES: Patient is sleeping comfortably. Patient does not appear in any acute distress. Patient awaken's when RN enters the room, opens eyes spontaneously. Patient does not appear in any acute distress and is free from facial grimacing. Patient is ST on the monitor. Patient is with a tracheostomy to vent with vent settings of AC 18, 500 TV, 30%, PEEP +5. Glucerna 1.5 is running via his GT at 45 ml/hr. Patient has a suprapubic catheter draining large amounts of cloudy yellow urine. Patient has a EDA PICC that is asymptomatic, patent and intact. Safety Alarms are set and audible. Safety measures are in place with bed locked in the lowest position, call light within reach. Will continue to monitor and follow plan of care. Addendum: 01/03/19 at 1841 by YOEL RUBIO RN oral care was performed
[2019-01-03 16:00] VITALS: BP 95/65
--- NOTE | 2019-01-03 16:21 | Cardiology Progress Note ---
Assessment/Plan Assessment/Plan 1. Supraventricular tachycardia. recurrent 12/09 and 12/10 2. Renal insufficiency. 3. Hyponatremia. 4. Chronic ventilator dependence. 5. Guillain-[place] syndrome. 6. History of bowel resection. 7. History of CVA. 8. Chronic tracheostomy. 9. Diabetes mellitus. 10 pancreatitis 11. anemai off Cardizem via gtube and dig and atenolol last psvt was on 12/31 short lived watch for recurrrence tele reviewewed heart rate stable wbc better hgn loer amylase better Subjective ROS Limited/Unobtainable: Yes Subjective on the vent Objective Last 24 Hour Vital Signs Date Time Temp Pulse Resp B/P (MAP) Pulse Ox O2 Delivery O2 Flow Rate FiO2 01/03/19 16:00 Mechanical Ventilator 01/03/19 16:00 30 01/03/19 14:37 105 23 30 01/03/19 13:23 107 01/03/19 12:57 105 25 30 01/03/19 12:00 Mechanical Ventilator 01/03/19 12:00 30 01/03/19 12:00 98.4 103 22 93/64 (74) 100 01/03/19 11:08 107 27 30 01/03/19 09:20 107 26 30 01/03/19 08:00 Mechanical Ventilator 01/03/19 08:00 30 01/03/19 08:00 98.2 107 28 90/55 (67) 100 01/03/19 08:00 106 01/03/19 07:08 109 23 30 01/03/19 05:19 105 23 30 01/03/19 04:00 30 01/03/19 04:00 Mechanical Ventilator 01/03/19 04:00 98.1 109 22 106/62 (77) 99 01/03/19 03:49 108 01/03/19 03:30 112 26 30 01/03/19 01:30 111 25 30 01/03/19 00:00 Mechanical Ventilator 01/03/19 00:00 100.0 117 25 98/60 (73) 97 01/03/19 00:00 30 01/02/19 23:30 113 26 30 01/02/19 23:29 117 01/02/19 21:16 115 27 30 01/02/19 20:00 98.1 115 27 98/69 (79) 97 01/02/19 20:00 30 01/02/19 20:00 Mechanical Ventilator 01/02/19 19:30 114 24 30 01/02/19 19:27 116 01/02/19 17:02 112 30 30 General Appearance: no apparent distress, on vent, patient on isolation Extremities: no swelling Intake and Output 01/02/19 01/03/19 19:00 07:00 Intake Total 1100 ml 1030 ml Output Total 750 ml 700 ml Balance 350 ml 330 ml Intake Free Water 150 ml IV Total 410 ml 410 ml Tube Feeding 540 ml 540 ml Other 80 ml Output Urine Total 550 ml 400 ml Stool Total 200 ml 300 ml Laboratory Tests Test 01/03/19 04:35 White Blood Count 12.5 K/UL (4.8-10.8) H Red Blood Count 2.86 M/UL (4.70-6.10) L Hemoglobin 8.9 G/DL (14.2-18.0) L Hematocrit 26.4 % (42.0-52.0) L Mean Corpuscular Volume 92 FL (80-99) Mean Corpuscular Hemoglobin 30.9 PG (27.0-31.0) Mean Corpuscular Hemoglobin Concent 33.5 G/DL (32.0-36.0) Red Cell Distribution Width 16.3 % (11.6-14.8) H Platelet Count 204 K/UL (150-450) Mean Platelet Volume 7.9 FL (6.5-10.1) Neutrophils (%) (Auto) 82.8 % (45.0-75.0) H Lymphocytes (%) (Auto) 7.5 % (20.0-45.0) L Monocytes (%) (Auto) 6.1 % (1.0-10.0) Eosinophils (%) (Auto) 2.3 % (0.0-3.0) Basophils (%) (Auto) 1.3 % (0.0-2.0) Sodium Level 137 MMOL/L (136-145) Potassium Level 4.6 MMOL/L (3.5-5.1) Chloride Level 102 MMOL/L (98-107) Carbon Dioxide Level 23 MMOL/L (21-32) Anion Gap 13 mmol/L (5-15) Blood Urea Nitrogen 23 mg/dL (7-18) H Creatinine 0.7 MG/DL (0.55-1.30) Estimat Glomerular Filtration Rate mL/min (>60) Glucose Level 208 MG/DL (74-106) H Calcium Level 8.3 MG/DL (8.5-10.1) L Phosphorus Level 2.0 MG/DL (2.5-4.9) L Magnesium Level 2.0 MG/DL (1.8-2.4) Total Bilirubin 0.2 MG/DL (0.2-1.0) Aspartate Amino Transf (AST/SGOT) 14 U/L (15-37) L Alanine Aminotransferase (ALT/SGPT) 9 U/L (12-78) L Alkaline Phosphatase 111 U/L (46-116) Total Protein 8.2 G/DL (6.4-8.2) Albumin 1.4 G/DL (3.4-5.0) L Globulin 6.8 g/dL Albumin/Globulin Ratio 0.2 (1.0-2.7) L Lipase 805 U/L (73-393) H Donny Kelley MD Jan 03, 2019 16:21
--- NOTE | 2019-01-03 16:24 | Infectious Diseases Prog Note ---
Assessment/Plan Assessment/Plan Assessment: Gram positive bacteremia- PICC line infection -12/26 2d echo: no vegetations 12/23 SP -Removal of PICC line - -12/20 1/ E. fecalis (S Van, amp), 1/ MRSA. PICC line; Peripheral NTD; Bcx NTD; 12/23 Neg Septic shock , SP Severe Sepsis 2ry to GNR bacteremia, PNA, sp Rx -01/02 CXR: Chronic appearing interstitial opacities are again demonstrated in the right upper lobe as well as more generalized. There is suggestion of small bilateralpleural effusions, unchanged -12/24 CXR: Bilateral interstitial and airspace opacities, worse in the right upper lobe, slightly worse than prior study. -12/21 CXR: Bilateral interstitial and airspace opacities, associated bronchiectasis are again demonstrated. There is blunting of the left costophrenic sulcus again demonstrated. -12/17 CXR: No significant interval change in the diffuse patchy bilateral reticular interstitial and airspace opacities. -CXR: Probable small left pleural effusion, also evident on prior study 2017. Bilateral interstitial disease, unchanged, suspect chronic. Correlate with clinical findings -sp CX MDR PsA (S Gentamicin, AMikacin, Cefepime, Aztreonam, Tobramycin); repeats sp cx 12/20 MRSA; likely colonzier as vent settings stable GNR bacteremia, likely from UTI -CT abd/p: Findings consistent with uncomplicated nonnecrotizing acute pancreatitis. No evidence of associated peripancreatic abscess Surgical changes as described, including right lower quadrant ileostomy, subtotal colectomy with Haroldo procedure. Wall thickening of the Haroldo pouch. This could indicate inflammation. However, this is also present on both of the prior 2 exams and may be baseline for this patien. Evidence of mild anasarca, with edema of the subcutaneous fat. This is a new finding. Chronic appearing decubitus changes of the bilateral ischia. Correlate with clinical findings. Complete left lower lobe consolidation. This is similar to both of the prior CTs, andis likely a chronic finding. There is progressive chronic interstitial fibrotic change involving the right middle lobe. There is also right lower lobe granulomatous calcification, Extensive pulmonary parenchymal opacities bilaterally may reflect acute inflammation/infection, edema, progressive chronic scarring, orcombination of the above. These are considerably more extensive than on the prior study -u/a 10-15, nit neg, luek +3; ucx 50-60k Enterococcus (Vanco resist; S AMp), 40-50 K Proteus -12/07 Bcx 3/ Proteus; 12/08 Bcx 1/4 Proteus (S Aztreonam; R Cipro, levo; I Imipenem); Acute pancreatitis -lipase ~1k Fever - recurrent- in the setting of bacteremia and pancreaitis; Leukocytosis , recurrent, increased--in the setting of bacteremia, UTI and acute pancreatitis -CT abd/p Suspected active decubitus ulcer right side with evidence of drainage. Correlate clinically. No deeper abscess or drainable collections identified. The ulcer probes to the right ischium. Acute osteomyelitis or acute on chronic osteomyelitis may be considered. Chronic bilateral grade 4 decubitus ulcers with the large areas absent eroded posterior ischia and absent lower sacrum and coccyx due to previous osteomyelitis. Scrotal swelling with skin thickening and suggestion of heterogeneous fluid within the scrotal sac. Correlate clinically. No evidence of intra-abdominal or pelvic abscess or other acute pathology.Chronic dense left posterior basilar consolidation/atelectasis. Extensive fibrosis and cystic replacement anterior right lung base middle lobe. Sacral decubitus ulcer- w/ acute or acute on chronic OM --sacral wound cx KPC K.pna (S Cefepime, Amikacin), E.coli (S Zosyn), P. mirabilis (R cipro/levo, amp) CT 12/30/18 - OM of sacrum CONS bacteremia- likely contaminant -12/12 Bcx 1/ CONS; 12/14 Bcx Neg MAULIK, improving dysphagia s/p peg COPD GBS quadriplegia chronic resp failure s/p trach HTN CVA, nonverbal anemia SNF resident Plan: -Continue Linezolid #14/ for E. fecalis and MRSA bacteremia in the setting of vancomycin allergy -Continue Aztreonam #2 and add Amikacin for KPC in sacral wound -requested Aztreonam sensitivities -may try Cefepime trial based on wound cx results (unclear what is the PNC allergy) -will likely treat for 6 weeks for OM pending sacral wound cx -12/22 SP Aztreonam #14 -12/21 SP INH tobramycin #7 -12/16 SP IV Daptomycin #7 -f/u Bcx x2, sacral wound cx -Monitor CBC/CMP, temperatures -PEG/Trach care -Aspiration precautions -management of acute pancreatitis per primary team. -wound care per surgical team Subjective Allergies: Coded Allergies: PENICILLINS (Unverified Allergy, Unknown, 02/26/16) POLYMYXIN B (Unverified Allergy, Unknown, 02/26/16) VANCOMYCIN (Unverified Allergy, Unknown, 02/26/16) Subjective afebrile leukocytosis increased Objective Vital Signs Last 24 Hour Vital Signs Date Time Temp Pulse Resp B/P (MAP) Pulse Ox O2 Delivery O2 Flow Rate FiO2 01/03/19 16:00 Mechanical Ventilator 01/03/19 16:00 30 01/03/19 14:37 105 23 30 01/03/19 13:23 107 01/03/19 12:57 105 25 30 01/03/19 12:00 Mechanical Ventilator 01/03/19 12:00 30 01/03/19 12:00 98.4 103 22 93/64 (74) 100 01/03/19 11:08 107 27 30 01/03/19 09:20 107 26 30 01/03/19 08:00 Mechanical Ventilator 01/03/19 08:00 30 01/03/19 08:00 98.2 107 28 90/55 (67) 100 01/03/19 08:00 106 01/03/19 07:08 109 23 30 01/03/19 05:19 105 23 30 01/03/19 04:00 30 01/03/19 04:00 Mechanical Ventilator 01/03/19 04:00 98.1 109 22 106/62 (77) 99 01/03/19 03:49 108 01/03/19 03:30 112 26 30 01/03/19 01:30 111 25 30 01/03/19 00:00 Mechanical Ventilator 01/03/19 00:00 100.0 117 25 98/60 (73) 97 01/03/19 00:00 30 01/02/19 23:30 113 26 30 01/02/19 23:29 117 01/02/19 21:16 115 27 30 01/02/19 20:00 98.1 115 27 98/69 (79) 97 01/02/19 20:00 30 01/02/19 20:00 Mechanical Ventilator 01/02/19 19:30 114 24 30 01/02/19 19:27 116 01/02/19 17:02 112 30 30 Height (Feet): 5 Height (Inches): 8.00 Weight (Pounds): 146 Objective HEENT: Eyes were normal. ENT, mucous membranes were not dehydrated. NECK: Supple. There was no goiter. No mass. No lymphadenopathy. There was no JVD. No bruits. Carotid upstroke was 2+. LUNGS: Clear. HEART: PMI was in the fifth left intercostal space in midclavicular line. There was normal S1 and normal S2. There was no murmur. No arrhythmia. No S3. No S4. No pericardial rub. ABDOMEN: Soft and nontender without organomegaly. There were no masses palpable. Normal bowel sounds without bruits. There was no guarding. No rebound tenderness. No ascites. No hernia. No CVA tenderness. EXTREMITIES: No cyanosis, no clubbing, and no edema. Extremities were warm. Laboratory Tests Test 01/03/19 04:35 White Blood Count 12.5 K/UL (4.8-10.8) H Red Blood Count 2.86 M/UL (4.70-6.10) L Hemoglobin 8.9 G/DL (14.2-18.0) L Hematocrit 26.4 % (42.0-52.0) L Mean Corpuscular Volume 92 FL (80-99) Mean Corpuscular Hemoglobin 30.9 PG (27.0-31.0) Mean Corpuscular Hemoglobin Concent 33.5 G/DL (32.0-36.0) Red Cell Distribution Width 16.3 % (11.6-14.8) H Platelet Count 204 K/UL (150-450) Mean Platelet Volume 7.9 FL (6.5-10.1) Neutrophils (%) (Auto) 82.8 % (45.0-75.0) H Lymphocytes (%) (Auto) 7.5 % (20.0-45.0) L Monocytes (%) (Auto) 6.1 % (1.0-10.0) Eosinophils (%) (Auto) 2.3 % (0.0-3.0) Basophils (%) (Auto) 1.3 % (0.0-2.0) Sodium Level 137 MMOL/L (136-145) Potassium Level 4.6 MMOL/L (3.5-5.1) Chloride Level 102 MMOL/L (98-107) Carbon Dioxide Level 23 MMOL/L (21-32) Anion Gap 13 mmol/L (5-15) Blood Urea Nitrogen 23 mg/dL (7-18) H Creatinine 0.7 MG/DL (0.55-1.30) Estimat Glomerular Filtration Rate mL/min (>60) Glucose Level 208 MG/DL (74-106) H Calcium Level 8.3 MG/DL (8.5-10.1) L Phosphorus Level 2.0 MG/DL (2.5-4.9) L Magnesium Level 2.0 MG/DL (1.8-2.4) Total Bilirubin 0.2 MG/DL (0.2-1.0) Aspartate Amino Transf (AST/SGOT) 14 U/L (15-37) L Alanine Aminotransferase (ALT/SGPT) 9 U/L (12-78) L Alkaline Phosphatase 111 U/L (46-116) Total Protein 8.2 G/DL (6.4-8.2) Albumin 1.4 G/DL (3.4-5.0) L Globulin 6.8 g/dL Albumin/Globulin Ratio 0.2 (1.0-2.7) L Lipase 805 U/L (73-393) H Current Medications Medications (Trade) Dose Ordered Sig/Fransisco Route PRN Reason Start Time Stop Time Status Last Admin Dose Admin Acetaminophen (Tylenol) 650 mg Q4H PRN GT For Pain 12/28/18 05:00 01/06/19 16:59 Aztreonam 2 gm/ Dextrose 110 ml @ 220 mls/hr Q8H IVPB 01/02/19 16:00 01/09/19 15:59 01/03/19 09:50 Calcitonin [place] (Miacalcin) 1 sprays DAILY NASAL 12/28/18 09:00 01/24/19 10:59 01/03/19 09:49 Chlorhexidine Gluconate (Sandra-Hex 2%) 1 applic DAILY@2000 TOPIC 12/28/18 20:00 01/09/19 19:59 01/02/19 19:42 Dextrose (Dextrose 50%) 25 ml Q30M PRN IV Hypoglycemia 01/01/19 00:15 01/31/19 00:14 Dextrose (Dextrose 50%) 50 ml Q30M PRN IV Hypoglycemia 01/01/19 00:15 01/31/19 00:14 Diltiazem HCl (Cardizem) 10 mg BIDPRN PRN IVP FOR HR >140 12/28/18 08:45 01/11/19 08:44 Fenofibrate (Tricor) 145 mg DAILY ORAL 12/31/18 09:00 01/30/19 08:59 01/03/19 09:49 Gemfibrozil (Lopid) 600 mg TWICE A DAY GT 12/28/18 09:00 01/14/19 10:14 01/03/19 09:49 Heparin Sodium (Porcine) (Heparin 5000 units/ml) 5,000 units EVERY 12 HOURS SUBQ 12/28/18 09:00 01/06/19 20:59 01/03/19 10:10 Insulin Aspart (NovoLOG) EVERY 6 HOURS SUBQ 01/01/19 06:00 01/31/19 05:59 01/03/19 13:36 Insulin Detemir (Levemir) 20 units Q12HR SUBQ 01/02/19 21:00 01/27/19 13:59 01/03/19 10:03 Lansoprazole (Prevacid) 30 mg BID GT 12/28/18 09:00 01/16/19 08:59 01/03/19 09:50 Linezolid 300 ml @ 300 mls/hr Q12HR IVPB 12/28/18 09:00 01/06/19 08:59 01/03/19 09:50 Nateglinide (Starlix) 120 mg Q8HR ORAL 12/28/18 06:00 01/17/19 21:59 01/03/19 13:33 Nitroglycerin (Ntg) 0.4 mg Q5M PRN SL Prn Chest Pain 12/28/18 04:50 01/06/19 16:59 Ondansetron HCl (Zofran) 4 mg Q6H PRN IVP Nausea & Vomiting 12/28/18 05:00 01/06/19 16:59 01/01/19 13:49 Polyethylene Glycol (Miralax) 17 gm DAILYPRN PRN GT Constipation 12/28/18 09:45 01/06/19 16:59 Aminah Champagne M.D. Jan 03, 2019 16:24
[2019-01-03] MEDS ORDERED: Amikacin Rx to dose MISC PRN (16:30)
--- NOTE | 2019-01-03 16:40 | Nephrology Progress Note ---
Assessment/Plan Problem List: (1) Hypercalcemia (2) ATN (acute tubular necrosis) (3) Anemia (4) Feeding by G-tube (5) Acute and chronic respiratory failure (6) UTI (urinary tract infection) (7) Hyponatremia Assessment in [facility] - Glucose better controlled Periodic high K Patient have mainly Pre Renal Azotemia with possible underlying CKD- Low Na partly depletional, partly due to Hyperglycemia RESOLVED Other conditions as outlined: (1) Acute and chronic respiratory failure ([id number]) (2) Sepsis (3) Malnutrition and HypoAlbuminemia (4) UTI (urinary tract infection) (5) Anemia (6) Diabetes mellitus, type II (7) Colostomy care (8) Cerebral vascular disease (9) Decubitus ulcer of sacral region, stage 2 (10) Feeding by G-tube (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 Plan K & Phos supplement as needed Levemir and adjust dose Kayexelate for high K as needed Stop Digoxin stop Atenolol Stop Cardiazem Pressors as needed Albumin bolus as needed AREDIA 90 mg for HYPERCALCEMIA on 12/23 - Calcium level will redose On Starlix feeding to glucerna Keep electrolytes in check Keep BS and BP in check per consultants Subjective ROS Limited/Unobtainable: Yes Objective Objective Last 24 Hour Vital Signs Date Time Temp Pulse Resp B/P (MAP) Pulse Ox O2 Delivery O2 Flow Rate FiO2 01/03/19 16:00 Mechanical Ventilator 01/03/19 16:00 30 01/03/19 14:37 105 23 30 01/03/19 13:23 107 01/03/19 12:57 105 25 30 01/03/19 12:00 Mechanical Ventilator 01/03/19 12:00 30 01/03/19 12:00 98.4 103 22 93/64 (74) 100 01/03/19 11:08 107 27 30 01/03/19 09:20 107 26 30 01/03/19 08:00 Mechanical Ventilator 01/03/19 08:00 30 01/03/19 08:00 98.2 107 28 90/55 (67) 100 01/03/19 08:00 106 01/03/19 07:08 109 23 30 01/03/19 05:19 105 23 30 01/03/19 04:00 30 01/03/19 04:00 Mechanical Ventilator 01/03/19 04:00 98.1 109 22 106/62 (77) 99 01/03/19 03:49 108 01/03/19 03:30 112 26 30 01/03/19 01:30 111 25 30 01/03/19 00:00 Mechanical Ventilator 01/03/19 00:00 100.0 117 25 98/60 (73) 97 01/03/19 00:00 30 01/02/19 23:30 113 26 30 01/02/19 23:29 117 01/02/19 21:16 115 27 30 01/02/19 20:00 98.1 115 27 98/69 (79) 97 01/02/19 20:00 30 01/02/19 20:00 Mechanical Ventilator 01/02/19 19:30 114 24 30 01/02/19 19:27 116 01/02/19 17:02 112 30 30 Intake and Output 01/02/19 01/03/19 19:00 07:00 Intake Total 1100 ml 1030 ml Output Total 750 ml 700 ml Balance 350 ml 330 ml Intake Free Water 150 ml IV Total 410 ml 410 ml Tube Feeding 540 ml 540 ml Other 80 ml Output Urine Total 550 ml 400 ml Stool Total 200 ml 300 ml Laboratory Tests 01/03/19 04:35: White Blood Count 12.5H, Red Blood Count 2.86L, Hemoglobin 8.9L, Hematocrit 26.4L, Mean Corpuscular Volume 92, Mean Corpuscular Hemoglobin 30.9, Mean Corpuscular Hemoglobin Concent 33.5, Red Cell Distribution Width 16.3H, Platelet Count 204, Mean Platelet Volume 7.9, Neutrophils (%) (Auto) 82.8H, Lymphocytes (%) (Auto) 7.5L, Monocytes (%) (Auto) 6.1, Eosinophils (%) (Auto) 2.3, Basophils (%) (Auto) 1.3, Sodium Level 137, Potassium Level 4.6, Chloride Level 102, Carbon Dioxide Level 23, Anion Gap 13, Blood Urea Nitrogen 23H, Creatinine 0.7, Estimat Glomerular Filtration Rate , Glucose Level 208H, Calcium Level 8.3L, Phosphorus Level 2.0L, Magnesium Level 2.0, Total Bilirubin 0.2, Aspartate Amino Transf (AST/SGOT) 14L, Alanine Aminotransferase (ALT/SGPT) 9L, Alkaline Phosphatase 111, Total Protein 8.2, Albumin 1.4L, Globulin 6.8, Albumin/Globulin Ratio 0.2L, Lipase 805H Height (Feet): 5 Height (Inches): 8.00 Weight (Pounds): 146 General Appearance: no apparent distress Cardiovascular: tachycardia Respiratory/Chest: decreased breath sounds Abdomen: distended Objective no change Migue Moreland MD Jan 03, 2019 16:40
--- NOTE | 2019-01-03 16:40 | NUR ---
NURSE NOTES: Patient is awake and alert. Patient does not appear in any acute distress. Patient follows commands and responds to inquires with head nods. Patient does not appear in any acute distress. Patient is with a tracheostomy to vent with vent settings of AC 18, 500 TV, 30%, PEEP +5. Oral care was performed. Glucerna 1.5 is running via his GT at 45 ml/hr. Patient has a suprapubic catheter draining large amounts of cloudy yellow urine. Patient has a EDA PICC that is asymptomatic, patent and intact. Safety Alarms are set and audible. Safety measures are in place with bed locked in the lowest position, call light within reach. Will continue to monitor and follow plan of care.
[2019-01-03] MEDS ORDERED: Sodium Phosphate 30 MM in NS 275 ML IVPB SCH (17:30)
[2019-01-03] MEDS ORDERED: Amikacin 1,000 MG in NS 110 ML IV SCH (18:00)
--- NOTE | 2019-01-03 18:53 | NUR ---
CASE MANAGEMENT: REVIEW 01/03/2019 SI:SEPSIS. A/C RESP FAILURE. T 98.6 HR 107 RR 24 B/P 95/65 SATS 100% ON MECH VENT FiO2 30% WBC 12.5 BUN 23 GLU 208 CA 8.3 PHOS 2 AST 14 ALT 9 IS: INSULIN ASPART SUBQ Q6H LOPID GT BID TRICOR PO QD LINEZOLID IV Q12H LEVEMIR SUBQ Q12H STEP DOWN UNIT
--- NOTE | 2019-01-03 19:03 | General Progress Note ---
Assessment/Plan Assessment/Plan Assessment/Recs: # Leukocytosis/Elevated white blood cell count,potentially due to infection with gram negative bacteremia, with uti and on abx --> have reviewed peripheral smear and bandemia/neutrophilia noted on initial smear was noted --> continue antibiotics if they have been started by ID team, titrate and change as required --> monitor for resolution ---> WBC trend: 11-->16-->15-->14-->11-->12-->10.8-->11-->12-->11-->16-->14-->16 -->13 # Anemia of chronic disease due to underlying chronic medical issues, multifactorial --> Anemia workup has been reviewed, Ferritin [id number] --> No evidence of hemolysis is noted, peripheral smear reviewed --> Hgb goal >7. Transfuse prn. --> Epogen or iron at this time is not particularly indicated --> Medications have been reviewed --> HGB trend: 7.8-->7.6-->6.2-->6.4->7.1-->8.7-->9.1-->8.4-->7.8-->9.4-->7.3--> 10.6-->10.1-->11-->9.3-->9.9-->9 --> received prbc 12/25 # Thrombocytopenia - potential causes multifactorial, evaluate liver and viral etiologies to begin, also could be related to underlying medications --> Hep panel and HIV negative --> US abd to evaluate for cirrhosis and hsm reviewed --> Peripheral smear ordered to evaluate for blasts/schistocytes does not reveal any --> abx and other meds have been reviewed --> ok for ppx if plt >50k w/ either heparin or lovenox # Hypercalcemia potentailly related to dehydration --> s/p aredia as per renal --> pth reviewed --> trend Ca as needed # Severe prerenal azotemia, on ivf --> improve po oral intake and consider appetite stimulant # Severe Sepsis, CXR: Probable small left pleural effusion --> also evident on prior study 11/22/2017 --> appreciate ID recs # Bacteremia, likely from UTI, PNA --> tolerating abx well --> as per pulm The timing of this note does not necessarily reflect the time of the patient was seen. Greatly appreciate consultation! Subjective Constitutional: Denies: no symptoms, chills, diaphoresis, fever, malaise, weakness, other HEENT: Denies: no symptoms, eye pain, blurred vision, tearing, double vision, ear pain, ear discharge, nose pain, nose congestion, throat pain, throat swelling, mouth pain, mouth swelling, other Cardiovascular: Denies: no symptoms, chest pain, edema, irregular heart rate, lightheadedness, palpitations, syncope, other Respiratory: Denies: no symptoms, cough, orthopnea, shortness of breath, SOB with excertion, SOB at rest, sputum, stridor, wheezing, other Gastrointestinal/Abdominal: Denies: no symptoms, abdomen distended, abdominal pain, black stools, tarry stools, blood in stool, constipated, diarrhea, difficulty swallowing, nausea, poor appetite, poor fluid intake, rectal bleeding , vomiting, other Genitourinary: Denies: no symptoms, burning, discharge, frequency, flank pain, hematuria, incontinence, pain, urgency, other Neurologic/Psychiatric: Denies: no symptoms, anxiety, depressed, emotional problems, headache, numbness, paresthesia, pre-existing deficit, seizure, tingling, tremors, weakness, other Endocrine: Denies: no symptoms, excessive sweating, flushing, intolerance to cold, intolerance to heat, increased hunger, increased thirst, increased urine, unexplained weight gain, unexplained weight loss, other Allergies: Coded Allergies: PENICILLINS (Unverified Allergy, Unknown, 02/26/16) POLYMYXIN B (Unverified Allergy, Unknown, 02/26/16) VANCOMYCIN (Unverified Allergy, Unknown, 02/26/16) Subjective 12/11: seen by bedside, vent dependent, leukocytosis, 11, hgb 7, will transfuse, no events 12/12: awake, comfortable wbc trending up at 16, no events 12/13: hgb 6.4, receiving transfusion, , wbc remains elevated. no acute events 12/14: seen by bedside, awake, comfortable low grade fever, wbc remains elevated at 15, bacteremia on IV Abx, hgb 7.1, will transfuse as needed 12/15: Wbc remains elevated, no events reported, hgb trending up 12/16: seen by bedside, awake, comfortable, no events 12/18: seen in the room, on vent and trach, no events 12/19: reviewed cbc and appears relatively stable, on starlix, remains in sdu 12/20: seen by bedside, on vent, mild leukocytosis 12/21: Pt is resting , on vent, wbc trending up , no events 12/22: exam is essentially unchanged, on abx, have discussed with pcp, rn, wbc better 12/23: transfuse wbc 11, on abx 12/24: no events to report, on vent/trach care, without issue 12/26: in icu, resting comfortanly, off pressors 12/27: tolerating feeding and vent well, no issues, ca reviewed 12/28: no events, remains nonverbal, without complaints 12/29: no events, on vent/trach, nonverbal, no fevers 12/30: no events, labs have been reviewed, cbc noted, wbc higher 01/01: no events, on abx, wbc better, hgb lower, with nausea, on zofran 01/02: less abdominal pain, on zofran on prn basis, no f/c 01/03: no events to report, trach to vent, labs reviewed, no complaints Objective Last 24 Hour Vital Signs Date Time Temp Pulse Resp B/P (MAP) Pulse Ox O2 Delivery O2 Flow Rate FiO2 01/03/19 17:27 106 26 30 01/03/19 17:00 106 01/03/19 16:00 Mechanical Ventilator 01/03/19 16:00 30 01/03/19 16:00 98.6 107 24 95/65 (75) 100 01/03/19 14:37 105 23 30 01/03/19 13:23 107 01/03/19 12:57 105 25 30 01/03/19 12:00 Mechanical Ventilator 01/03/19 12:00 30 01/03/19 12:00 98.4 103 22 93/64 (74) 100 01/03/19 11:08 107 27 30 01/03/19 09:20 107 26 30 01/03/19 08:00 Mechanical Ventilator 01/03/19 08:00 30 01/03/19 08:00 98.2 107 28 90/55 (67) 100 01/03/19 08:00 106 01/03/19 07:08 109 23 30 01/03/19 05:19 105 23 30 01/03/19 04:00 30 01/03/19 04:00 Mechanical Ventilator 01/03/19 04:00 98.1 109 22 106/62 (77) 99 01/03/19 03:49 108 01/03/19 03:30 112 26 30 01/03/19 01:30 111 25 30 01/03/19 00:00 Mechanical Ventilator 01/03/19 00:00 100.0 117 25 98/60 (73) 97 01/03/19 00:00 30 01/02/19 23:30 113 26 30 01/02/19 23:29 117 01/02/19 21:16 115 27 30 01/02/19 20:00 98.1 115 27 98/69 (79) 97 01/02/19 20:00 30 01/02/19 20:00 Mechanical Ventilator 01/02/19 19:30 114 24 30 01/02/19 19:27 116 Intake and Output 01/02/19 01/03/19 19:00 07:00 Intake Total 1100 ml 1030 ml Output Total 750 ml 700 ml Balance 350 ml 330 ml Intake Free Water 150 ml IV Total 410 ml 410 ml Tube Feeding 540 ml 540 ml Other 80 ml Output Urine Total 550 ml 400 ml Stool Total 200 ml 300 ml Laboratory Tests 01/03/19 04:35: White Blood Count 12.5H, Red Blood Count 2.86L, Hemoglobin 8.9L, Hematocrit 26.4L, Mean Corpuscular Volume 92, Mean Corpuscular Hemoglobin 30.9, Mean Corpuscular Hemoglobin Concent 33.5, Red Cell Distribution Width 16.3H, Platelet Count 204, Mean Platelet Volume 7.9, Neutrophils (%) (Auto) 82.8H, Lymphocytes (%) (Auto) 7.5L, Monocytes (%) (Auto) 6.1, Eosinophils (%) (Auto) 2.3, Basophils (%) (Auto) 1.3, Sodium Level 137, Potassium Level 4.6, Chloride Level 102, Carbon Dioxide Level 23, Anion Gap 13, Blood Urea Nitrogen 23H, Creatinine 0.7, Estimat Glomerular Filtration Rate , Glucose Level 208H, Calcium Level 8.3L, Phosphorus Level 2.0L, Magnesium Level 2.0, Total Bilirubin 0.2, Aspartate Amino Transf (AST/SGOT) 14L, Alanine Aminotransferase (ALT/SGPT) 9L, Alkaline Phosphatase 111, Total Protein 8.2, Albumin 1.4L, Globulin 6.8, Albumin/Globulin Ratio 0.2L, Lipase 805H Height (Feet): 5 Height (Inches): 8.00 Weight (Pounds): 146 Objective HEENT: Eyes were normal. ENT, mucous membranes were not dehydrated. NECK: Supple. There was no goiter. No mass. No lad LUNGS: Clear. Vent++/trach HEART: PMI was in the fifth left intercostal space in midclavicular line. There was normal S1 and normal S2. There was no murmur. no s3/s4 ABDOMEN: Soft and nontender without organomegaly. There were no masses palpable. Normal bowel sounds without bruits. There was no guarding. No rebound tenderness. No ascites. No hernia. No CVA tenderness. Liver span was 8 cm, mostly nt EXTREMITIES: No cyanosis, no clubbing, and no edema. Extremities warm. Adarsh Kim MD Jan 03, 2019 19:03
--- NOTE | 2019-01-03 19:30 | NUR ---
NURSE NOTES: Pt report received from Leydi Dixon. pt safety precaution are set into place, such as safety breaks engaged, bed in lowest position and call light within reach. surveillance monitor is on pt. pt appears to not be in any acute respiratory distress nor cardiac distress. G Tube is intact and flushing. Super Pubic Catheter is in place and draining, Leydi DIXON reported leakage form catheter line, will report to Liset EMANUEL. IV located on Left upper arm, PICC line, no infiltration noted. will continue plan of care.
--- NOTE | 2019-01-03 19:48 | NUR ---
HAND-OFF: Report given to SHAKIR Watkins. VSS and patient is not in any acute distress.
[2019-01-03 20:00] VITALS: BP 100/64
[2019-01-03] MEDS: Dyna-Hex 2% Top Sol 2oz TOPIC SCH (21:28)
--- NOTE | 2019-01-03 22:55 | NUR ---
NURSE NOTES: Spoke with MD Hutchins in person regarding leakage of Supra Pubic Catheter. MD Hutchins Stated to consult MD Gonzalez. Will leave a message and follow up in AM.
--- NOTE | 2019-01-03 23:15 | NUR ---
NURSE NOTES: MD Gonzalez called back, he stated he can come in the morning to replace Supra Pubic Catheter. Will endorse to AM RN.
[2019-01-04] VITALS: BP 106/58
[2019-01-04 04:00] VITALS: BP 108/69
[2019-01-04] MEDS: NovoLOG Insulin Flexpen SUBQ SCH ×4 (05:37→23:52)
--- NOTE | 2019-01-04 06:15 | Progress Note ---
DATE: 01/03/2019 SUBJECTIVE: The patient is afebrile. Hemodynamically stable, but persistently tachycardic. PHYSICAL EXAMINATION: VITAL SIGNS: Blood pressure 100/64, his pulse is 108, respirations are 24, and temperature 98.9. HEENT: Eyes were normal. ENT, mucous membranes were moist and intact. NECK: Supple with no JVD without lymph nodes. Tracheostomy site is clean. LUNGS: Clear without rhonchi, rales, or wheezing. Secretions are small, thin, and barros. HEART: Normal sounds with regular beats. There is no S3, S4, or pericardial rub. ABDOMEN: Soft and nontender with normal bowel sounds. Gastrostomy site is clean. EXTREMITIES: Warm without cyanosis, clubbing, or edema. LABORATORY AND DIAGNOSTIC DATA: Hemoglobin is 8.9, hematocrit 26.4 with MCV of 92, WBC of 12.5, and platelets are 204,000. His BUN and creatinine are 23 and 0.7 respectively. His sodium is 137, potassium 4.3, chloride 102, and CO2 is 23. His calcium is 8.3. His phosphorus is 2 and magnesium is 2. SGOT, SGPT, and alkaline phosphatase are normal. Albumin is 1.4 and total protein is 8.2. Lipase is . Blood culture taken on 12/30/2018 shows no growth after 72 hours. IMPRESSION: The patient's leukocytosis is improved substantially. He still has gastrostomy leak. with catheter. Repeat laboratory tests will be done in the a.m. Neema Hutchins M.D. DR: PIERCE JOB#: [id number] CC:
--- NOTE | 2019-01-04 06:50 | NUR ---
RESPIRATORY NOTE:Received pt on AC 18, 500VT, 30%, PEEP +5. Pt is trach-dependent w/ a cuffed,Portex 7 tube. No s/s of distress noted. Vent alarms on and audible. Will cont. to monitor pt.
--- NOTE | 2019-01-04 07:15 | NUR ---
NURSE NOTES: Received patient from SHAKIR Watkins. Patient observed to be resting comfortably. Patient is with the Urologist to change his suprapubic catheter. Patient tolerated well. When patient's name called, patient arouse, opens eyes spontaneously and responds to questions with head nods yes and no. Patient does not appear in any acute distress and is free from facial grimacing. Patient is ST on the monitor. Patient is with a tracheostomy to vent with vent settings of AC 18, 500 TV, 30%, PEEP +5. Upon auscultation, rhonchi is heard throughout. Oral care was performed. Patient has hyperactive belly sounds with colostomy bag with yellowish brownish stool. Glucerna 1.5 is running via his GT at 45 ml/hr. A 50 ml flush was given. Patient has a suprapubic catheter draining large amounts of cloudy yellow urine. Patient has a EDA PICC that is asymptomatic, intact however one port is very sluggish. Safety measures are in place with bed locked in the lowest position, call light within reach. Will continue to monitor and follow plan of care.
--- NOTE | 2019-01-04 07:20 | NUR ---
HAND-OFF: Report given to Leydi SCHILLING.
[2019-01-04 07:22] LABS: ALANINE AMINOTRANSFERASE 12 U/L (12-78); ALBUMIN 1.4 G/DL (3.4-5.0); ALKALINE PHOSPHATASE 104 U/L (46-116); ASPARTATE AMINO TRANSFERASE 17 U/L (15-37); BILIRUBIN,DIRECT 0.1 MG/DL (0.0-0.3); BILIRUBIN,TOTAL 0.2 MG/DL (0.2-1.0); PHOSPHORUS 2.7 MG/DL (2.5-4.9)
[2019-01-04 07:25] LABS: ANION GAP 12 mmol/L (5-15); BLOOD UREA NITROGEN 26 mg/dL (7-18); CALCIUM 7.9 MG/DL (8.5-10.1); CARBON DIOXIDE 22 MMOL/L (21-32); CHLORIDE 102 MMOL/L (98-107); CREATININE 0.8 MG/DL (0.55-1.30); POTASSIUM 5.1 MMOL/L (3.5-5.1); SODIUM 136 MMOL/L (136-145)
[2019-01-04 07:26] LABS: HEMATOCRIT 27.4 % (42.0-52.0); MEAN CORPUSCULAR VOLUME 92 FL (80-99); PLATELET COUNT 226 K/UL (150-450); RED BLOOD COUNT 2.98 M/UL (4.70-6.10); WHITE BLOOD COUNT 12.9 K/UL (4.8-10.8)
[2019-01-04 08:00] VITALS: BP 106/67
[2019-01-04] MEDS: Levemir Flexpen SUBQ SCH ×2 (09:00→20:10)
--- NOTE | 2019-01-04 09:38 | Infectious Diseases Prog Note ---
Assessment/Plan Assessment/Plan Gram positive bacteremia- PICC line infection -12/26 2d echo: no vegetations 12/23 SP -Removal of PICC line - -12/20 1/ E. fecalis (S Van, amp), 1/2 MRSA. PICC line; Peripheral NTD; Bcx NTD; 12/23 Neg Septic shock , SP Severe Sepsis 2ry to GNR bacteremia, PNA, sp Rx -01/02 CXR: Chronic appearing interstitial opacities are again demonstrated in the right upper lobe as well as more generalized. There is suggestion of small bilateralpleural effusions, unchanged -12/24 CXR: Bilateral interstitial and airspace opacities, worse in the right upper lobe, slightly worse than prior study. -12/21 CXR: Bilateral interstitial and airspace opacities, associated bronchiectasis are again demonstrated. There is blunting of the left costophrenic sulcus again demonstrated. -12/17 CXR: No significant interval change in the diffuse patchy bilateral reticular interstitial and airspace opacities. -CXR: Probable small left pleural effusion, also evident on prior study 2017. Bilateral interstitial disease, unchanged, suspect chronic. Correlate with clinical findings -sp CX MDR PsA (S Gentamicin, AMikacin, Cefepime, Aztreonam, Tobramycin); repeats sp cx 12/20 MRSA; likely colonzier as vent settings stable GNR bacteremia, likely from UTI -CT abd/p: Findings consistent with uncomplicated nonnecrotizing acute pancreatitis. No evidence of associated peripancreatic abscess Surgical changes as described, including right lower quadrant ileostomy, subtotal colectomy with Haroldo procedure. Wall thickening of the Haroldo pouch. This could indicate inflammation. However, this is also present on both of the prior 2 exams and may be baseline for this patien. Evidence of mild anasarca, with edema of the subcutaneous fat. This is a new finding. Chronic appearing decubitus changes of the bilateral ischia. Correlate with clinical findings. Complete left lower lobe consolidation. This is similar to both of the prior CTs, andis likely a chronic finding. There is progressive chronic interstitial fibrotic change involving the right middle lobe. There is also right lower lobe granulomatous calcification, Extensive pulmonary parenchymal opacities bilaterally may reflect acute inflammation/infection, edema, progressive chronic scarring, orcombination of the above. These are considerably more extensive than on the prior study -u/a 10-15, nit neg, luek +3; ucx 50-60k Enterococcus (Vanco resist; S AMp), 40-50 K Proteus -12/07 Bcx 3/ Proteus; 12/08 Bcx 1/4 Proteus (S Aztreonam; R Cipro, levo; I Imipenem); Acute pancreatitis -lipase ~1k Fever - recurrent- in the setting of bacteremia and pancreaitis; Leukocytosis , recurrent, increased--in the setting of bacteremia, UTI and acute pancreatitis -CT abd/p Suspected active decubitus ulcer right side with evidence of drainage. Correlate clinically. No deeper abscess or drainable collections identified. The ulcer probes to the right ischium. Acute osteomyelitis or acute on chronic osteomyelitis may be considered. Chronic bilateral grade 4 decubitus ulcers with the large areas absent eroded posterior ischia and absent lower sacrum and coccyx due to previous osteomyelitis. Scrotal swelling with skin thickening and suggestion of heterogeneous fluid within the scrotal sac. Correlate clinically. No evidence of intra-abdominal or pelvic abscess or other acute pathology.Chronic dense left posterior basilar consolidation/atelectasis. Extensive fibrosis and cystic replacement anterior right lung base middle lobe. Sacral decubitus ulcer- w/ acute or acute on chronic OM --sacral wound cx KPC K.pna (S Cefepime, Amikacin), E.coli (S Zosyn), P. mirabilis (R cipro/levo, amp) CT 12/30/18 - OM of sacrum CONS bacteremia- likely contaminant -12/12 Bcx / CONS; 12/14 Bcx Neg MAULIK, improving dysphagia s/p peg COPD GBS quadriplegia chronic resp failure s/p trach HTN CVA, nonverbal anemia SNF resident Plan: -Continue Aztreonam #3 and Amikacin #1for KPC in sacral wound -requested Aztreonam sensitivities -may try Cefepime trial based on wound cx results (unclear what is the PNC allergy) -will likely treat for 6 weeks for OM pending sacral wound cx 01/03/19 SP Linezolid #14 -12/22 SP Aztreonam #14 -12/21 SP INH tobramycin #7 -12/16 SP IV Daptomycin #7 -f/u Bcx x2, sacral wound cx -Monitor CBC/CMP, temperatures -PEG/Trach care -Aspiration precautions -management of acute pancreatitis per primary team. -wound care per surgical team Subjective Allergies: Coded Allergies: PENICILLINS (Unverified Allergy, Unknown, 02/26/16) POLYMYXIN B (Unverified Allergy, Unknown, 02/26/16) VANCOMYCIN (Unverified Allergy, Unknown, 02/26/16) Subjective Patient afebrile Leukocytosis improving Satting well on 30% O2 Objective Vital Signs Last 24 Hour Vital Signs Date Time Temp Pulse Resp B/P (MAP) Pulse Ox O2 Delivery O2 Flow Rate FiO2 01/04/19 06:45 115 24 30 01/04/19 05:15 110 25 30 01/04/19 04:00 98.9 112 22 108/69 (82) 97 01/04/19 04:00 112 01/04/19 04:00 Mechanical Ventilator 01/04/19 04:00 30 01/04/19 03:08 113 28 30 01/04/19 01:13 109 24 30 01/04/19 00:00 109 01/04/19 00:00 Mechanical Ventilator 01/04/19 00:00 99.2 113 26 106/58 (74) 98 01/03/19 23:02 107 23 30 01/03/19 20:40 108 28 30 01/03/19 20:00 105 01/03/19 20:00 30 01/03/19 20:00 Mechanical Ventilator 01/03/19 20:00 98.9 108 24 100/64 (76) 99 01/03/19 19:10 106 26 30 01/03/19 17:27 106 26 30 01/03/19 17:00 106 01/03/19 16:00 Mechanical Ventilator 01/03/19 16:00 30 01/03/19 16:00 98.6 107 24 95/65 (75) 100 01/03/19 14:37 105 23 30 01/03/19 13:23 107 01/03/19 12:57 105 25 30 01/03/19 12:00 Mechanical Ventilator 01/03/19 12:00 30 01/03/19 12:00 98.4 103 22 93/64 (74) 100 01/03/19 11:08 107 27 30 Height (Feet): 5 Height (Inches): 8.00 Weight (Pounds): 148 Objective GEN: NAD, On 30 % O2 satting well HEENT: CTAB, PERRL, MMM. LUNGS: CTAB, No W HEART: RRR, S1, S2 ABDOMEN: Soft and nontender Laboratory Tests Test 01/04/19 06:53 White Blood Count 12.9 K/UL (4.8-10.8) H Red Blood Count 2.98 M/UL (4.70-6.10) L Hemoglobin 9.0 G/DL (14.2-18.0) L Hematocrit 27.4 % (42.0-52.0) L Mean Corpuscular Volume 92 FL (80-99) Mean Corpuscular Hemoglobin 30.4 PG (27.0-31.0) Mean Corpuscular Hemoglobin Concent 33.0 G/DL (32.0-36.0) Red Cell Distribution Width 17.0 % (11.6-14.8) H Platelet Count 226 K/UL (150-450) Mean Platelet Volume 8.1 FL (6.5-10.1) Neutrophils (%) (Auto) % (45.0-75.0) Lymphocytes (%) (Auto) % (20.0-45.0) Monocytes (%) (Auto) % (1.0-10.0) Eosinophils (%) (Auto) % (0.0-3.0) Basophils (%) (Auto) % (0.0-2.0) Differential Total Cells Counted 100 Neutrophils % (Manual) 88 % (45-75) H Lymphocytes % (Manual) 6 % (20-45) L Monocytes % (Manual) 4 % (1-10) Eosinophils % (Manual) 2 % (0-3) Basophils % (Manual) 0 % (0-2) Band Neutrophils 0 % (0-8) Platelet Estimate Adequate Platelet Morphology Normal Polychromasia 1+ Anisocytosis 1+ Sodium Level 136 MMOL/L (136-145) Potassium Level 5.1 MMOL/L (3.5-5.1) Chloride Level 102 MMOL/L (98-107) Carbon Dioxide Level 22 MMOL/L (21-32) Anion Gap 12 mmol/L (5-15) Blood Urea Nitrogen 26 mg/dL (7-18) H Creatinine 0.8 MG/DL (0.55-1.30) Estimat Glomerular Filtration Rate mL/min (>60) Glucose Level 136 MG/DL (74-106) H Calcium Level 7.9 MG/DL (8.5-10.1) L Phosphorus Level 2.7 MG/DL (2.5-4.9) Magnesium Level 1.8 MG/DL (1.8-2.4) Total Bilirubin 0.2 MG/DL (0.2-1.0) Direct Bilirubin 0.1 MG/DL (0.0-0.3) Aspartate Amino Transf (AST/SGOT) 17 U/L (15-37) Alanine Aminotransferase (ALT/SGPT) 12 U/L (12-78) Alkaline Phosphatase 104 U/L (46-116) Total Protein 8.5 G/DL (6.4-8.2) H Albumin 1.4 G/DL (3.4-5.0) L Random Amikacin Level 13.5 ug/mL Current Medications Medications (Trade) Dose Ordered Sig/[place] Route PRN Reason Start Time Stop Time Status Last Admin Dose Admin Acetaminophen (Tylenol) 650 mg Q4H PRN GT For Pain 12/28/18 05:00 01/06/19 16:59 Amikacin Protocol (Amikacin pharmacy to dose) 1 ea DAILY PRN MISC Per rx protocol 01/03/19 16:30 02/02/19 16:29 Aztreonam 2 gm/ Dextrose 110 ml @ 220 mls/hr Q8H IVPB 01/02/19 16:00 01/09/19 15:59 01/03/19 23:35 Calcitonin [place] (Miacalcin) 1 sprays DAILY NASAL 12/28/18 09:00 01/24/19 10:59 01/03/19 09:49 Chlorhexidine Gluconate (Sandra-Hex 2%) 1 applic DAILY@2000 TOPIC 12/28/18 20:00 01/09/19 19:59 01/03/19 21:28 Dextrose (Dextrose 50%) 25 ml Q30M PRN IV Hypoglycemia 01/01/19 00:15 01/31/19 00:14 Dextrose (Dextrose 50%) 50 ml Q30M PRN IV Hypoglycemia 01/01/19 00:15 01/31/19 00:14 Diltiazem HCl (Cardizem) 10 mg BIDPRN PRN IVP FOR HR >140 12/28/18 08:45 01/11/19 08:44 Fenofibrate (Tricor) 145 mg DAILY ORAL 12/31/18 09:00 01/30/19 08:59 01/03/19 09:49 Gemfibrozil (Lopid) 600 mg TWICE A DAY GT 12/28/18 09:00 01/14/19 10:14 01/03/19 17:38 Heparin Sodium (Porcine) (Heparin 5000 units/ml) 5,000 units EVERY 12 HOURS SUBQ 12/28/18 09:00 01/06/19 20:59 01/03/19 21:30 Insulin Aspart (NovoLOG) EVERY 6 HOURS SUBQ 01/01/19 06:00 01/31/19 05:59 01/04/19 05:37 Insulin Detemir (Levemir) 20 units Q12HR SUBQ 01/02/19 21:00 01/27/19 13:59 01/03/19 21:29 Lansoprazole (Prevacid) 30 mg BID GT 12/28/18 09:00 01/16/19 08:59 01/03/19 17:38 Linezolid 300 ml @ 300 mls/hr Q12HR IVPB 12/28/18 09:00 01/06/19 08:59 01/03/19 21:28 Nateglinide (Starlix) 120 mg Q8HR ORAL 12/28/18 06:00 01/17/19 21:59 01/04/19 05:34 Nitroglycerin (Ntg) 0.4 mg Q5M PRN SL Prn Chest Pain 12/28/18 04:50 01/06/19 16:59 Ondansetron HCl (Zofran) 4 mg Q6H PRN IVP Nausea & Vomiting 12/28/18 05:00 01/06/19 16:59 01/01/19 13:49 Polyethylene Glycol (Miralax) 17 gm DAILYPRN PRN GT Constipation 12/28/18 09:45 01/06/19 16:59 Chico Allen MD Jan 04, 2019 09:38
[2019-01-04] MEDS: Aztreonam Inj 2 GM in D5W 110 ML IVPB SCH ×3 (09:50→23:54)
[2019-01-04] MEDS: Heparin 5000 units/ml inj SUBQ SCH ×2 (09:59→20:10)
--- NOTE | 2019-01-04 10:12 | Nephrology Progress Note ---
Assessment/Plan Problem List: (1) Hypercalcemia (2) ATN (acute tubular necrosis) (3) Anemia (4) Feeding by G-tube (5) Acute and chronic respiratory failure (6) UTI (urinary tract infection) (7) Hyponatremia Assessment in [facility] - Glucose better controlled Periodic high K Patient have mainly Pre Renal Azotemia with possible underlying CKD- Low Na partly depletional, partly due to Hyperglycemia RESOLVED Other conditions as outlined: (1) Acute and chronic respiratory failure ([id number]) (2) Sepsis (3) Malnutrition and HypoAlbuminemia (4) UTI (urinary tract infection) (5) Anemia (6) Diabetes mellitus, type II (7) Colostomy care (8) Cerebral vascular disease (9) Decubitus ulcer of sacral region, stage 2 (10) Feeding by G-tube (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 Plan K & Phos supplement as needed Levemir and adjust dose Kayexelate for high K as needed Stop Digoxin stop Atenolol Stop Cardiazem Pressors as needed Albumin bolus as needed AREDIA 90 mg for HYPERCALCEMIA on 12/23 - Calcium level will redose On Starlix feeding to glucerna Keep electrolytes in check Keep BS and BP in check per consultants Subjective ROS Limited/Unobtainable: Yes Objective Objective Last 24 Hour Vital Signs Date Time Temp Pulse Resp B/P (MAP) Pulse Ox O2 Delivery O2 Flow Rate FiO2 01/04/19 08:30 119 26 30 01/04/19 06:45 115 24 30 01/04/19 05:15 110 25 30 01/04/19 04:00 98.9 112 22 108/69 (82) 97 01/04/19 04:00 112 01/04/19 04:00 Mechanical Ventilator 01/04/19 04:00 30 01/04/19 03:08 113 28 30 01/04/19 01:13 109 24 30 01/04/19 00:00 109 01/04/19 00:00 Mechanical Ventilator 01/04/19 00:00 99.2 113 26 106/58 (74) 98 01/03/19 23:02 107 23 30 01/03/19 20:40 108 28 30 01/03/19 20:00 105 01/03/19 20:00 30 01/03/19 20:00 Mechanical Ventilator 01/03/19 20:00 98.9 108 24 100/64 (76) 99 01/03/19 19:10 106 26 30 01/03/19 17:27 106 26 30 01/03/19 17:00 106 01/03/19 16:00 Mechanical Ventilator 01/03/19 16:00 30 01/03/19 16:00 98.6 107 24 95/65 (75) 100 01/03/19 14:37 105 23 30 01/03/19 13:23 107 01/03/19 12:57 105 25 30 01/03/19 12:00 Mechanical Ventilator 01/03/19 12:00 30 01/03/19 12:00 98.4 103 22 93/64 (74) 100 01/03/19 11:08 107 27 30 Intake and Output 01/03/19 01/04/19 19:00 07:00 Intake Total 240 ml 1550 ml Output Total 1050 ml 1100 ml Balance -810 ml 450 ml Intake Free Water 600 ml IV Total 410 ml Tube Feeding 90 ml 540 ml Other 150 ml Output Urine Total 650 ml 800 ml Stool Total 400 ml 300 ml Laboratory Tests 01/04/19 06:53: White Blood Count 12.9H, Red Blood Count 2.98L, Hemoglobin 9.0L, Hematocrit 27.4L, Mean Corpuscular Volume 92, Mean Corpuscular Hemoglobin 30.4, Mean Corpuscular Hemoglobin Concent 33.0, Red Cell Distribution Width 17.0H, Platelet Count 226, Mean Platelet Volume 8.1, Neutrophils (%) (Auto) , Lymphocytes (%) (Auto) , Monocytes (%) (Auto) , Eosinophils (%) (Auto) , Basophils (%) (Auto) , Differential Total Cells Counted 100, Neutrophils % ( Manual) 88H, Lymphocytes % (Manual) 6L, Monocytes % (Manual) 4, Eosinophils % ( Manual) 2, Basophils % (Manual) 0, Band Neutrophils 0, Platelet Estimate Adequate, Platelet Morphology Normal, Polychromasia 1+, Anisocytosis 1+, Sodium Level 136, Potassium Level 5.1, Chloride Level 102, Carbon Dioxide Level 22, Anion Gap 12, Blood Urea Nitrogen 26H, Creatinine 0.8, Estimat Glomerular Filtration Rate , Glucose Level 136H, Calcium Level 7.9L, Phosphorus Level 2.7, Magnesium Level 1.8, Total Bilirubin 0.2, Direct Bilirubin 0.1, Aspartate Amino Transf (AST/SGOT) 17, Alanine Aminotransferase (ALT/SGPT) 12, Alkaline Phosphatase 104, Total Protein 8.5H, Albumin 1.4L, Random Amikacin Level 13.5 Height (Feet): 5 Height (Inches): 8.00 Weight (Pounds): 148 General Appearance: no apparent distress Respiratory/Chest: decreased breath sounds Abdomen: distended Objective no change Migue Moreland MD Jan 04, 2019 10:12
--- NOTE | 2019-01-04 11:20 | General Progress Note ---
Assessment/Plan Problem List: (1) Tracheostomy in place ICD Codes: Z98.89 - Other specified postprocedural states SNOMED: 981274446 (2) Acute and chronic respiratory failure ICD Codes: J96.20 - Acute and chronic respiratory failure, unspecified whether with hypoxia or hypercapnia SNOMED: 56825504, 99472729 (3) Decubitus ulcer of sacral region, stage 2 ICD Codes: L89.152 - Pressure ulcer of sacral region, stage 2 SNOMED: 856464523, 448983305 (4) Cerebral vascular disease ICD Codes: I67.9 - Cerebrovascular disease, unspecified SNOMED: 19656194 (5) Colostomy care ICD Codes: Z43.3 - Encounter for attention to colostomy SNOMED: 766919631 (6) Hypertension ICD Codes: I10 - Essential (primary) hypertension SNOMED: 23931715 (7) Diabetes mellitus, type II ICD Codes: E11.9 - Type 2 diabetes mellitus without complications SNOMED: 30434042 (8) Feeding by G-tube ICD Codes: Z93.1 - Gastrostomy status SNOMED: 564963904, 530390803 (9) Anemia ICD Codes: D64.9 - Anemia, unspecified SNOMED: 438899522 (10) Pancreatitis ICD Codes: K85.90 - Acute pancreatitis without necrosis or infection, unspecified SNOMED: 87174122 Assessment/Plan Occult blood stool positive >>1/3>>> repeat stool ob fu CBC Hepatitis panel negative Pancreatitis secondary to hypertriglyceridemia Elevated CA 19, mild Repeat lipid panel shows hypertriglyceridemia TriCor and lopid Stable H&H - PRN transfusions ppi daily GTFs per RD repeat lipase Supportive care Subjective ROS Limited/Unobtainable: No Allergies: Coded Allergies: PENICILLINS (Unverified Allergy, Unknown, 02/26/16) POLYMYXIN B (Unverified Allergy, Unknown, 02/26/16) VANCOMYCIN (Unverified Allergy, Unknown, 02/26/16) Objective Last 24 Hour Vital Signs Date Time Temp Pulse Resp B/P (MAP) Pulse Ox O2 Delivery O2 Flow Rate FiO2 01/04/19 08:30 119 26 30 01/04/19 06:45 115 24 30 01/04/19 05:15 110 25 30 01/04/19 04:00 98.9 112 22 108/69 (82) 97 01/04/19 04:00 112 01/04/19 04:00 Mechanical Ventilator 01/04/19 04:00 30 01/04/19 03:08 113 28 30 01/04/19 01:13 109 24 30 01/04/19 00:00 109 01/04/19 00:00 Mechanical Ventilator 01/04/19 00:00 99.2 113 26 106/58 (74) 98 01/03/19 23:02 107 23 30 01/03/19 20:40 108 28 30 01/03/19 20:00 105 01/03/19 20:00 30 01/03/19 20:00 Mechanical Ventilator 01/03/19 20:00 98.9 108 24 100/64 (76) 99 01/03/19 19:10 106 26 30 01/03/19 17:27 106 26 30 01/03/19 17:00 106 01/03/19 16:00 Mechanical Ventilator 01/03/19 16:00 30 01/03/19 16:00 98.6 107 24 95/65 (75) 100 01/03/19 14:37 105 23 30 01/03/19 13:23 107 01/03/19 12:57 105 25 30 01/03/19 12:00 Mechanical Ventilator 01/03/19 12:00 30 01/03/19 12:00 98.4 103 22 93/64 (74) 100 Intake and Output 01/03/19 01/04/19 19:00 07:00 Intake Total 240 ml 1550 ml Output Total 1050 ml 1100 ml Balance -810 ml 450 ml Intake Free Water 600 ml IV Total 410 ml Tube Feeding 90 ml 540 ml Other 150 ml Output Urine Total 650 ml 800 ml Stool Total 400 ml 300 ml Laboratory Tests 01/04/19 06:53: White Blood Count 12.9H, Red Blood Count 2.98L, Hemoglobin 9.0L, Hematocrit 27.4L, Mean Corpuscular Volume 92, Mean Corpuscular Hemoglobin 30.4, Mean Corpuscular Hemoglobin Concent 33.0, Red Cell Distribution Width 17.0H, Platelet Count 226, Mean Platelet Volume 8.1, Neutrophils (%) (Auto) , Lymphocytes (%) (Auto) , Monocytes (%) (Auto) , Eosinophils (%) (Auto) , Basophils (%) (Auto) , Differential Total Cells Counted 100, Neutrophils % ( Manual) 88H, Lymphocytes % (Manual) 6L, Monocytes % (Manual) 4, Eosinophils % ( Manual) 2, Basophils % (Manual) 0, Band Neutrophils 0, Platelet Estimate Adequate, Platelet Morphology Normal, Polychromasia 1+, Anisocytosis 1+, Sodium Level 136, Potassium Level 5.1, Chloride Level 102, Carbon Dioxide Level 22, Anion Gap 12, Blood Urea Nitrogen 26H, Creatinine 0.8, Estimat Glomerular Filtration Rate , Glucose Level 136H, Calcium Level 7.9L, Phosphorus Level 2.7, Magnesium Level 1.8, Total Bilirubin 0.2, Direct Bilirubin 0.1, Aspartate Amino Transf (AST/SGOT) 17, Alanine Aminotransferase (ALT/SGPT) 12, Alkaline Phosphatase 104, Total Protein 8.5H, Albumin 1.4L, Random Amikacin Level 13.5 Height (Feet): 5 Height (Inches): 8.00 Weight (Pounds): 148 General Appearance: no apparent distress EENT: normal ENT inspection Neck: supple Cardiovascular: normal rate Respiratory/Chest: decreased breath sounds Abdomen: normal bowel sounds, non tender, soft Extremities: non-tender Benjamin Jackson MD Jan 04, 2019 11:20
[2019-01-04 12:00] VITALS: BP 103/68
--- NOTE | 2019-01-04 12:32 | NUR ---
NURSE NOTES: Patient observed to be resting comfortably. Patient opens eyes spontaneously and responds to questions with head nods yes and no. Patient does not appear in any acute distress and is free from facial grimacing. Patient is ST on the monitor. Patient is with a tracheostomy to vent with vent settings of AC 18, 500 TV, 30%, PEEP +5. Oral care was performed. Patient has hyperactive belly sounds with colostomy bag with yellowish brownish stool. Glucerna 1.5 is running via his GT at 45 ml/hr. A 100 ml flush was given. Patient has a suprapubic catheter draining large amounts of cloudy yellow urine. Patient has a EDA PICC that is asymptomatic, intact however one port is very sluggish. Safety measures are in place with bed locked in the lowest position, call light within reach. Will continue to monitor and follow plan of care.
--- NOTE | 2019-01-04 13:47 | NUR ---
NURSE NOTES:WOUND CARE NOTES:Assisted nurses on unit with pt's wound care today. Small amt bleeding noted from few small lesions to L upper and medial L buttocks. MASD resolving -Buttocks is britton pink with fewer satellite lesions noted. Scrotum is intact and britton pink.Small amt bleeding noted from R ischial wound upon removal of drsg. No odor noted .Loose non-viable tissue from along edges of wound. Approx 25% necrosis remains along edges with scattered slough approx 40% at base of wound. Therahoney impregnated kerlix looselypacked to conform to shape of ischial wound. TRiad Paste applied to entire Buttocks and and scrotal areas and covered with ABD Pad and secured with Tegaderm drsg . Adhesive denudement noted to Lumbar area in skin folds .Triad Paste applied to entire area..Pt positioned on L side. Both heels off-load with pillow. Pt has an air fluidized mattress.
--- NOTE | 2019-01-04 15:39 | Surgery Progress Note ---
Surgery Progress Note Subjective Additional Comments sloth from deep ulcers removed as they were falling off. labs noted. lip still elevated. exam unchanged. Objective Last 24 Hour Vital Signs Date Time Temp Pulse Resp B/P (MAP) Pulse Ox O2 Delivery O2 Flow Rate FiO2 01/04/19 15:20 117 25 30 01/04/19 13:06 116 26 30 01/04/19 12:00 Mechanical Ventilator 01/04/19 12:00 117 01/04/19 12:00 99.9 119 28 103/68 (80) 99 01/04/19 12:00 30 01/04/19 11:05 116 23 30 01/04/19 08:30 119 26 30 01/04/19 08:00 Mechanical Ventilator 01/04/19 08:00 121 01/04/19 08:00 30 01/04/19 08:00 99.6 118 24 106/67 (80) 98 01/04/19 06:45 115 24 30 01/04/19 05:15 110 25 30 01/04/19 04:00 98.9 112 22 108/69 (82) 97 01/04/19 04:00 112 01/04/19 04:00 Mechanical Ventilator 01/04/19 04:00 30 01/04/19 03:08 113 28 30 01/04/19 01:13 109 24 30 01/04/19 00:00 109 01/04/19 00:00 Mechanical Ventilator 01/04/19 00:00 99.2 113 26 106/58 (74) 98 01/03/19 23:02 107 23 30 01/03/19 20:40 108 28 30 01/03/19 20:00 105 01/03/19 20:00 30 01/03/19 20:00 Mechanical Ventilator 01/03/19 20:00 98.9 108 24 100/64 (76) 99 01/03/19 19:10 106 26 30 01/03/19 17:27 106 26 30 01/03/19 17:00 106 01/03/19 16:00 Mechanical Ventilator 01/03/19 16:00 30 01/03/19 16:00 98.6 107 24 95/65 (75) 100 I&O Intake and Output 01/03/19 01/04/19 19:00 07:00 Intake Total 240 ml 1550 ml Output Total 1050 ml 1100 ml Balance -810 ml 450 ml Intake Free Water 600 ml IV Total 410 ml Tube Feeding 90 ml 540 ml Other 150 ml Output Urine Total 650 ml 800 ml Stool Total 400 ml 300 ml Dressing: saturated Wound: other Drains: other Cardiovascular: RSR Respiratory: decreased breath sounds Abdomen: soft, present bowel sounds, non-distended Extremities: no tenderness, no cyanosis Laboratory Tests Test 01/04/19 06:53 White Blood Count 12.9 K/UL (4.8-10.8) H Red Blood Count 2.98 M/UL (4.70-6.10) L Hemoglobin 9.0 G/DL (14.2-18.0) L Hematocrit 27.4 % (42.0-52.0) L Mean Corpuscular Volume 92 FL (80-99) Mean Corpuscular Hemoglobin 30.4 PG (27.0-31.0) Mean Corpuscular Hemoglobin Concent 33.0 G/DL (32.0-36.0) Red Cell Distribution Width 17.0 % (11.6-14.8) H Platelet Count 226 K/UL (150-450) Mean Platelet Volume 8.1 FL (6.5-10.1) Neutrophils (%) (Auto) % (45.0-75.0) Lymphocytes (%) (Auto) % (20.0-45.0) Monocytes (%) (Auto) % (1.0-10.0) Eosinophils (%) (Auto) % (0.0-3.0) Basophils (%) (Auto) % (0.0-2.0) Differential Total Cells Counted 100 Neutrophils % (Manual) 88 % (45-75) H Lymphocytes % (Manual) 6 % (20-45) L Monocytes % (Manual) 4 % (1-10) Eosinophils % (Manual) 2 % (0-3) Basophils % (Manual) 0 % (0-2) Band Neutrophils 0 % (0-8) Platelet Estimate Adequate Platelet Morphology Normal Polychromasia 1+ Anisocytosis 1+ Sodium Level 136 MMOL/L (136-145) Potassium Level 5.1 MMOL/L (3.5-5.1) Chloride Level 102 MMOL/L (98-107) Carbon Dioxide Level 22 MMOL/L (21-32) Anion Gap 12 mmol/L (5-15) Blood Urea Nitrogen 26 mg/dL (7-18) H Creatinine 0.8 MG/DL (0.55-1.30) Estimat Glomerular Filtration Rate mL/min (>60) Glucose Level 136 MG/DL (74-106) H Calcium Level 7.9 MG/DL (8.5-10.1) L Phosphorus Level 2.7 MG/DL (2.5-4.9) Magnesium Level 1.8 MG/DL (1.8-2.4) Total Bilirubin 0.2 MG/DL (0.2-1.0) Direct Bilirubin 0.1 MG/DL (0.0-0.3) Aspartate Amino Transf (AST/SGOT) 17 U/L (15-37) Alanine Aminotransferase (ALT/SGPT) 12 U/L (12-78) Alkaline Phosphatase 104 U/L (46-116) Total Protein 8.5 G/DL (6.4-8.2) H Albumin 1.4 G/DL (3.4-5.0) L Random Amikacin Level 13.5 ug/mL Plan Problems: (1) Decubitus skin ulcer Assessment & Plan: Pt presented on admission with multiple pressure injuries and Skin erosion. Pt has trach and no evidence of skin breakdown noted under trach collar. Unstageable pressure injury noted to L earlobe. Stable dry brown eschar noted(L) 0.7cm x (W)0.5cm. Gross erythema with denudement and multiple scattered partial thickness wounds noted to buttocks and base of scrotum extending into both posterior upper thighs.Moderate amt sanguineous exudate noted upon removal of drsgs. 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 Moderate amt sanguineous exudate noted (L)3cm x (W)1cm x (D)7.4cm.Erythema periwound secondary to skin erosions. Partially opened DTPI L ischium .Base of wound purple,fluctuant with red borders.Open areas at base of this wound are beefy red in colour.Moderate amt sanguineous exudate noted.(L)7cm x (W)6.8cm. DTPI R ischium.Wound is fluctuant-purple in center with surrounding Maroon colour, and is partially opened with a small area of 5% that is necrotic.(L) 6.5cm x (W)5.5cm. Red skin erosion periwound. Partial thickness pressure injury L hip. Base of wound is moist -viable. Edges adherent and dry. Periwound without erythema or induration(L)1.2cm x (W)0.5cm. Elongate partial thickness wound posterior upper L thigh .Base of wound is moist -viable .Small amt sanguineous exudate noted. (+) maceration along borders. Erythema without induration or elevation in skin temp noted.(L)2cm x (W )9.4cm. DTPI noted to R heel .Base of injury is indurated and maroon in colour. Periwound is firm without erythema. (L)1.5cm x (W)1cm.R heel without evidence of skin breakdown. UPDATE with Full thickness pressure injury sacrum resolving. Less depth noted to tunnel, but base of wound obscured due to size and shape of wound (L)2cm x (W )0.9cm with tunneling at 12 by 3cm. Full thickness wound R ischium with 60% loose soft necrosis. 40% slough with additional necrosis along edges and periwound .No odor noted. (L)6cm x (W)6.3cm x (D)3.2cm undermining 9-12 by 3.1cm @11O'Clock. MASD with Gross erythema with skin erosion entire buttocks extending down into both ischial and both upper thighs including scrotum and bilat groin areas. Scattered satellite lesions with small amt bleeding from these areas. Small area of dry eschar noted to L buttocks (L)1.9cm x (W)2cm. Reabsorbed DTPI with stable dry brown eschar R heel (L)1.5cm x (W)2.5cm Periwound without erythema ,induration or fluctuance. Small dry scab noted to L ear without erythema periwound. No new skin concerns noted. Tx.Plan: Cleanse Sacrum with Saline. Loosely pack with Hydrogel impregnated Kerlix. Apply Triad Paste periwound. Cover with ABD pad. Daily and prn. Cleanse R and L ischial wounds with Saline. Apply Moisture Barrier Paste.Cover with abd pads Daily and prn. Apply Moisture Barrier to skin erosions on buttocks,scrotum, and posterior aspects of both thighs.Cover with ABD pad daily and prn. Cleanse wound L hip with Saline. Apply Moisture Barrier paste .Cover with Optifoam drsg Daily and prn. Cleanse wound posterior upper L thigh with saline .Apply Hydrogel. Cover with Optifoam drsg Daily and prn. Apply Cavilon Skin Barrier to L earlobe daily. Please monitor. Apply Cavilon Skin Barrier to L heel. Cover with Optifoam drsg. Change every 7 days and prn. Apply Cavilon Skin Barrier to R heel. Cover with Optifoam drsg .Change every 7 days and prn. Air fluidized mattress. Reposition every 2hours or as tolerated. Off-load heels with pillow. (2) Acute and chronic respiratory failure Assessment & Plan: cont with breathing treatments trach stable trach site clean will change dressings daily (3) Acute pancreatitis Assessment & Plan: Findings consistent with uncomplicated nonnecrotizing acute pancreatitis. No evidence of associated peripancreatic abscess Surgical changes as described, including right lower quadrant ileostomy, subtotal colectomy with Haroldo procedure. Wall thickening of the Haroldo pouch. This could indicate inflammation. However, this is also present on both of the prior 2 exams and may be baseline for this patient Evidence of mild anasarca, with edema of the subcutaneous fat. This is a new finding Chronic appearing decubitus changes of the bilateral ischia. Correlate with clinical findings Complete left lower lobe consolidation. This is similar to both of the prior CTs , and is likely a chronic finding. There is progressive chronic interstitial fibrotic change involving the right middle lobe. There is also right lower lobe granulomatous calcification Extensive pulmonary parenchymal opacities bilaterally may reflect acute inflammation/infection, edema, progressive chronic scarring, or combination of the above. These are considerably more extensive than on the prior study Trace bilateral pleural fluid New finding of nonobstructive right renal collecting system calculs 4 mm calculus within the bladder lumen. This may represent a bladder calculus, a calculus and left ureteral orifice, or recently passed stone. If either of the latter, no evidence of resultant hydronephrosis or hydroureter Suprapubic catheter. This is a new finding since the 2016 exams. Interim removal of previously demonstrated Bledsoe catheter Gastrostomy Left renal cysts. Subcentimeter low-attenuation right renal lesions, too small to characterize, most likely benign simple cysts. No further follow-up necessary elevated amylase/lipase trending down leukocytosis GNR Bacteremia transfused anemia Unfortunately patient not able to participate in exam and difficult to identify if clinically pancreatitis or just laboratory data. Recent CT with uncomplicated pancreatitis but enzymes still remain elevated. Patient tolerated tube feeds. Patient with gram-negative belle bacteremia likely from UTI. Patient remains febrile intermittently with worsening leukocytosis on IV antibiotics. -no acute surgical intervention planned -transfuse as per hematology -Abx as per ID -trend lip/britany - recent finding based on CT given patient cannot given history or participate in exam. CT with uncomplicated pancreatitis. repeat CT A/P okay for diet / feeds for now. IV fluids Javier Ricardo Jan 04, 2019 15:39
[2019-01-04 16:00] VITALS: BP 95/66
--- NOTE | 2019-01-04 16:40 | NUR ---
NURSE NOTES: Patient is comfortable and not in any acute distress. Patient responds to questions with head nods. Patient is ST on the monitor. Patient is with a tracheostomy to vent with vent settings of AC 18, 500 TV, 30%, PEEP +5. Upon auscultation, rhonchi is heard throughout. Oral care was performed. Patient has hyperactive belly sounds with colostomy bag with yellowish brownish stool. Glucerna 1.5 is running via his GT at 45 ml/hr. Patient has a suprapubic catheter draining large amounts of cloudy yellow urine. Patient has a EDA PICC that is asymptomatic, intact however one port is very sluggish. Safety measures are in place with bed locked in the lowest position, call light within reach. Will continue to monitor and follow plan of care.
--- NOTE | 2019-01-04 18:30 | Consultation ---
DATE OF CONSULTATION: 01/04/2019 CONSULTING PHYSICIAN: Ramez Gonzalez M.D. REFERRING PHYSICIAN: Neema Hutchins M.D. REASON FOR CONSULTATION: For evaluation of suprapubic tube leakage. HISTORY OF PRESENT ILLNESS: This is an unfortunate 73-year-old male. He has multiple medical issues including history of chronic respiratory failure with trach, dysphagia, PEG, and hypertension. He was originally admitted to the hospital because of possible sepsis. He has had a long hospital course. He has a history of a neurogenic bladder with chronic suprapubic tube. Apparently, the suprapubic tube was last changed about three to four weeks ago. There has been some leakage around the suprapubic site. Urology evaluation is requested. Most of the history was obtained from the chart. PAST MEDICAL HISTORY: Significant for above. Again, chronic respiratory failure, history of COPD, quadriplegia, and anemia. PAST SURGICAL HISTORY: He has had a colectomy. He has had a colostomy. He has had a suprapubic tube placement and he has had a trach. Other surgeries are unknown. CURRENT MEDICATIONS: Here in the hospital, the patient is on amikacin, aztreonam, insulin, TriCor, MiraLAX, linezolid, , Lopid, heparin, Prevacid, Cardizem, Starlix, Tylenol, Zofran, nitroglycerin. ALLERGIES: Penicillin, polymyxin, vancomycin. SOCIAL HISTORY: He is a resident of a detention. FAMILY HISTORY: Unable to obtain. REVIEW OF SYSTEMS: Unable to obtain. PHYSICAL EXAMINATION: GENERAL: Elderly male, nonverbal. Trach. VITAL SIGNS: Temperature is 98.9, blood pressure is 108/69, pulse 22. ABDOMEN: Slightly distended. GENITOURINARY: Colostomy is in place. A 20-Faroese suprapubic tube in place. He does have what appears to be mild scrotal swelling. LABORATORY DATA: His last UA showed 2+ protein, 0 to 2 rbc's, and 2 to 4 wbc's. His other UAs were reviewed, at which time he did have red cells and white cells. He did have his urine culture from before that showed Meera. His last blood culture is negative at four days. His white blood cell count is 12.9 and hemoglobin is 9.0. His BUN is 26 and creatinine 0.8. DIAGNOSTIC IMAGING STUDIES: The patient had a CT scan of the abdomen and pelvis this is from last week. There was mention of a small 1.5 cm hypodensity in the left kidney, possibly cystic or solid. There was also mention of possible hydrocele and also thickened bladder wall consistent with cystitis. IMPRESSION: 1. Urinary retention with chronic suprapubic tube. 2. Probable neurogenic bladder. 3. UTI colonization. 4. Hematuria. 5. Proteinuria. 6. Cystitis. 7. Renal cyst versus small mass. 8. Scrotal edema. 9. Hydrocele. PLAN AND DISCUSSION: The patient was evaluated at bedside. I personally removed old suprapubic tube. I placed a new 20-Faroese suprapubic tube into the bladder. This was hand irrigated and irrigated well, position is satisfactory. Balloon was inflated with about 15 mL of sterile water. The catheter was secured on the patient's leg and he will be monitored clinically with irrigation of the suprapubic tube as needed. Renal function will be monitored and he is to continue with antibiotics as ordered. Thank you for this consultation. Ramez Gonzalez M.D. DR: CLARISSA JOB#: [id number] CC:
[2019-01-04 20:00] VITALS: BP 104/64
[2019-01-04] MEDS: Dyna-Hex 2% Top Sol 2oz TOPIC SCH (20:09)
--- NOTE | 2019-01-04 20:09 | NUR ---
HAND-OFF: Report given to SHAKIR Figueroa. VSS and not in any acute distress.
--- NOTE | 2019-01-04 20:48 | General Progress Note ---
Assessment/Plan Assessment/Plan Assessment/Recs: # Leukocytosis/Elevated white blood cell count,potentially due to infection with gram negative bacteremia, with uti and on abx --> have reviewed peripheral smear and bandemia/neutrophilia noted on initial smear was noted --> continue antibiotics if they have been started by ID team, titrate and change as required --> monitor for resolution ---> WBC trend: 11-->16-->15-->14-->11-->12-->10.8-->11-->12-->11-->16-->14-->16 -->13-->13 # Anemia of chronic disease due to underlying chronic medical issues, multifactorial --> Anemia workup has been reviewed, Ferritin [id number] --> No evidence of hemolysis is noted, peripheral smear reviewed --> Hgb goal >7. Transfuse prn. --> Epogen or iron at this time is not particularly indicated --> Medications have been reviewed --> HGB trend: 7.8-->7.6-->6.2-->6.4->7.1-->8.7-->9.1-->8.4-->7.8-->9.4-->7.3--> 10.6-->10.1-->11-->9.3-->9.9-->9 --> received prbc 12/25 # Thrombocytopenia - potential causes multifactorial, evaluate liver and viral etiologies to begin, also could be related to underlying medications --> Hep panel and HIV negative --> US abd to evaluate for cirrhosis and hsm reviewed --> Peripheral smear ordered to evaluate for blasts/schistocytes does not reveal any --> abx and other meds have been reviewed --> ok for ppx if plt >50k w/ either heparin or lovenox # Hypercalcemia potentailly related to dehydration --> s/p aredia as per renal --> pth reviewed --> trend Ca as needed # Severe prerenal azotemia, on ivf --> improve po oral intake and consider appetite stimulant # Severe Sepsis, CXR: Probable small left pleural effusion --> also evident on prior study 11/22/2017 --> appreciate ID recs # Bacteremia, likely from UTI, PNA --> tolerating abx well --> as per pulm # Decub ulceration --> as per surg The timing of this note does not necessarily reflect the time of the patient was seen. Greatly appreciate consultation! Subjective Respiratory: Denies: no symptoms, cough, orthopnea, shortness of breath, SOB with excertion, SOB at rest, sputum, stridor, wheezing, other Gastrointestinal/Abdominal: Denies: no symptoms, abdomen distended, abdominal pain, black stools, tarry stools, blood in stool, constipated, diarrhea, difficulty swallowing, nausea, poor appetite, poor fluid intake, rectal bleeding , vomiting, other Neurologic/Psychiatric: Denies: no symptoms, anxiety, depressed, emotional problems, headache, numbness, paresthesia, pre-existing deficit, seizure, tingling, tremors, weakness, other Allergies: Coded Allergies: PENICILLINS (Unverified Allergy, Unknown, 02/26/16) POLYMYXIN B (Unverified Allergy, Unknown, 02/26/16) VANCOMYCIN (Unverified Allergy, Unknown, 02/26/16) Subjective 12/11: seen by bedside, vent dependent, leukocytosis, 11, hgb 7, will transfuse, no events 12/12: awake, comfortable wbc trending up at 16, no events 12/13: hgb 6.4, receiving transfusion, , wbc remains elevated. no acute events 12/14: seen by bedside, awake, comfortable low grade fever, wbc remains elevated at 15, bacteremia on IV Abx, hgb 7.1, will transfuse as needed 12/15: Wbc remains elevated, no events reported, hgb trending up 12/16: seen by bedside, awake, comfortable, no events 12/18: seen in the room, on vent and trach, no events 12/19: reviewed cbc and appears relatively stable, on starlix, remains in sdu 12/20: seen by bedside, on vent, mild leukocytosis 12/21: Pt is resting , on vent, wbc trending up , no events 12/22: exam is essentially unchanged, on abx, have discussed with pcp, rn, wbc better 12/23: transfuse wbc 11, on abx 12/24: no events to report, on vent/trach care, without issue 12/26: in icu, resting comfortanly, off pressors 12/27: tolerating feeding and vent well, no issues, ca reviewed 12/28: no events, remains nonverbal, without complaints 12/29: no events, on vent/trach, nonverbal, no fevers 12/30: no events, labs have been reviewed, cbc noted, wbc higher 01/01: no events, on abx, wbc better, hgb lower, with nausea, on zofran 01/02: less abdominal pain, on zofran on prn basis, no f/c 01/03: no events to report, trach to vent, labs reviewed, no complaints 01/04: wounds examined, is trach to vent, no major issues Objective Last 24 Hour Vital Signs Date Time Temp Pulse Resp B/P (MAP) Pulse Ox O2 Delivery O2 Flow Rate FiO2 01/04/19 20:37 116 26 30 01/04/19 19:06 113 27 30 01/04/19 16:57 118 27 30 01/04/19 16:00 Mechanical Ventilator 01/04/19 16:00 30 01/04/19 16:00 100.0 116 24 95/66 (76) 99 01/04/19 16:00 118 01/04/19 15:20 117 25 30 01/04/19 13:06 116 26 30 01/04/19 12:00 Mechanical Ventilator 01/04/19 12:00 117 01/04/19 12:00 99.9 119 28 103/68 (80) 99 01/04/19 12:00 30 01/04/19 11:05 116 23 30 01/04/19 08:30 119 26 30 01/04/19 08:00 Mechanical Ventilator 01/04/19 08:00 121 01/04/19 08:00 30 01/04/19 08:00 99.6 118 24 106/67 (80) 98 01/04/19 06:45 115 24 30 01/04/19 05:15 110 25 30 01/04/19 04:00 98.9 112 22 108/69 (82) 97 01/04/19 04:00 112 01/04/19 04:00 Mechanical Ventilator 01/04/19 04:00 30 01/04/19 03:08 113 28 30 01/04/19 01:13 109 24 30 01/04/19 00:00 109 01/04/19 00:00 Mechanical Ventilator 01/04/19 00:00 99.2 113 26 106/58 (74) 98 01/03/19 23:02 107 23 30 Intake and Output 01/03/19 01/04/19 19:00 07:00 Intake Total 240 ml 1550 ml Output Total 1050 ml 1100 ml Balance -810 ml 450 ml Intake Free Water 600 ml IV Total 410 ml Tube Feeding 90 ml 540 ml Other 150 ml Output Urine Total 650 ml 800 ml Stool Total 400 ml 300 ml Laboratory Tests 01/04/19 06:53: White Blood Count 12.9H, Red Blood Count 2.98L, Hemoglobin 9.0L, Hematocrit 27.4L, Mean Corpuscular Volume 92, Mean Corpuscular Hemoglobin 30.4, Mean Corpuscular Hemoglobin Concent 33.0, Red Cell Distribution Width 17.0H, Platelet Count 226, Mean Platelet Volume 8.1, Neutrophils (%) (Auto) , Lymphocytes (%) (Auto) , Monocytes (%) (Auto) , Eosinophils (%) (Auto) , Basophils (%) (Auto) , Differential Total Cells Counted 100, Neutrophils % ( Manual) 88H, Lymphocytes % (Manual) 6L, Monocytes % (Manual) 4, Eosinophils % ( Manual) 2, Basophils % (Manual) 0, Band Neutrophils 0, Platelet Estimate Adequate, Platelet Morphology Normal, Polychromasia 1+, Anisocytosis 1+, Sodium Level 136, Potassium Level 5.1, Chloride Level 102, Carbon Dioxide Level 22, Anion Gap 12, Blood Urea Nitrogen 26H, Creatinine 0.8, Estimat Glomerular Filtration Rate , Glucose Level 136H, Calcium Level 7.9L, Phosphorus Level 2.7, Magnesium Level 1.8, Total Bilirubin 0.2, Direct Bilirubin 0.1, Aspartate Amino Transf (AST/SGOT) 17, Alanine Aminotransferase (ALT/SGPT) 12, Alkaline Phosphatase 104, Total Protein 8.5H, Albumin 1.4L, Random Amikacin Level 13.5 01/04/19 18:15: Random Amikacin Level 3.1 Height (Feet): 5 Height (Inches): 8.00 Weight (Pounds): 148 Objective HEENT: Eyes were normal. ENT, mucous membranes were not dehydrated. NECK: Supple. There was no goiter. No mass. No lad LUNGS: Clear. Vent++/trach HEART: PMI was in the fifth left intercostal space in midclavicular line. There was normal S1 and normal S2. There was no murmur. no s3/s4 ABDOMEN: Soft and nontender without organomegaly. There were no masses palpable. Normal bowel sounds without bruits. There was no guarding. No rebound tenderness. No ascites. No hernia. No CVA tenderness. Liver span was 8 cm, mostly nt EXTREMITIES: No cyanosis, no clubbing, and no edema. Extremities warm. Adarsh Kim MD Jan 04, 2019 20:48
--- NOTE | 2019-01-04 20:53 | NUR ---
NURSE NOTES: Received patient from Leydi SCHILLING. Patient is awake and Neuro x2-x3. Receiving Oxygen via Portex 7 with settings AC 18, TV 500, PEEP 5, FiO2 30%, patient is appears to be tolerating well and show signs of respiratory distress. G Tube shows no residuals and tolerating feeding well, receiving Glucerna 1.5 at 45cc/hr. Patient's colostomy bag is patent and intact, with 200cc of bowel removed. Patient has a Left Upper Arm PICC line that is patent and asymptomatic. Bed is locked, placed in lowest position, side rails up x3, call light within reach. Will continue to monitor. Addendum: 01/04/19 at 2204 by Rosalind Dejesus RN Pt showing NO signs of respiratory/cardiac distress.
--- NOTE | 2019-01-04 21:13 | Cardiology Progress Note ---
Assessment/Plan Assessment/Plan 1. Supraventricular tachycardia. recurrent 12/09 and 12/10 2. Renal insufficiency. 3. Hyponatremia. 4. 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 6. History of bowel resection. 7. History of CVA. 8. Chronic tracheostomy. 9. Diabetes mellitus. 10 pancreatitis 11. anemai off Cardizem via gtube and dig and atenolol last psvt was on 12/31 short lived watch for recurrrence tele reviewewed heart rate stable Subjective ROS Limited/Unobtainable: Yes Subjective on the vent Objective Last 24 Hour Vital Signs Date Time Temp Pulse Resp B/P (MAP) Pulse Ox O2 Delivery O2 Flow Rate FiO2 01/04/19 20:37 116 26 30 01/04/19 19:06 113 27 30 01/04/19 16:57 118 27 30 01/04/19 16:00 Mechanical Ventilator 01/04/19 16:00 30 01/04/19 16:00 100.0 116 24 95/66 (76) 99 01/04/19 16:00 118 01/04/19 15:20 117 25 30 01/04/19 13:06 116 26 30 01/04/19 12:00 Mechanical Ventilator 01/04/19 12:00 117 01/04/19 12:00 99.9 119 28 103/68 (80) 99 01/04/19 12:00 30 01/04/19 11:05 116 23 30 01/04/19 08:30 119 26 30 01/04/19 08:00 Mechanical Ventilator 01/04/19 08:00 121 01/04/19 08:00 30 01/04/19 08:00 99.6 118 24 106/67 (80) 98 01/04/19 06:45 115 24 30 01/04/19 05:15 110 25 30 01/04/19 04:00 98.9 112 22 108/69 (82) 97 01/04/19 04:00 112 01/04/19 04:00 Mechanical Ventilator 01/04/19 04:00 30 01/04/19 03:08 113 28 30 01/04/19 01:13 109 24 30 01/04/19 00:00 109 01/04/19 00:00 Mechanical Ventilator 01/04/19 00:00 99.2 113 26 106/58 (74) 98 01/03/19 23:02 107 23 30 General Appearance: on vent, patient on isolation Intake and Output 01/03/19 01/04/19 19:00 07:00 Intake Total 240 ml 1550 ml Output Total 1050 ml 1100 ml Balance -810 ml 450 ml Intake Free Water 600 ml IV Total 410 ml Tube Feeding 90 ml 540 ml Other 150 ml Output Urine Total 650 ml 800 ml Stool Total 400 ml 300 ml Laboratory Tests Test 01/04/19 06:53 01/04/19 18:15 White Blood Count 12.9 K/UL (4.8-10.8) H Red Blood Count 2.98 M/UL (4.70-6.10) L Hemoglobin 9.0 G/DL (14.2-18.0) L Hematocrit 27.4 % (42.0-52.0) L Mean Corpuscular Volume 92 FL (80-99) Mean Corpuscular Hemoglobin 30.4 PG (27.0-31.0) Mean Corpuscular Hemoglobin Concent 33.0 G/DL (32.0-36.0) Red Cell Distribution Width 17.0 % (11.6-14.8) H Platelet Count 226 K/UL (150-450) Mean Platelet Volume 8.1 FL (6.5-10.1) Neutrophils (%) (Auto) % (45.0-75.0) Lymphocytes (%) (Auto) % (20.0-45.0) Monocytes (%) (Auto) % (1.0-10.0) Eosinophils (%) (Auto) % (0.0-3.0) Basophils (%) (Auto) % (0.0-2.0) Differential Total Cells Counted 100 Neutrophils % (Manual) 88 % (45-75) H Lymphocytes % (Manual) 6 % (20-45) L Monocytes % (Manual) 4 % (1-10) Eosinophils % (Manual) 2 % (0-3) Basophils % (Manual) 0 % (0-2) Band Neutrophils 0 % (0-8) Platelet Estimate Adequate Platelet Morphology Normal Polychromasia 1+ Anisocytosis 1+ Sodium Level 136 MMOL/L (136-145) Potassium Level 5.1 MMOL/L (3.5-5.1) Chloride Level 102 MMOL/L (98-107) Carbon Dioxide Level 22 MMOL/L (21-32) Anion Gap 12 mmol/L (5-15) Blood Urea Nitrogen 26 mg/dL (7-18) H Creatinine 0.8 MG/DL (0.55-1.30) Estimat Glomerular Filtration Rate mL/min (>60) Glucose Level 136 MG/DL (74-106) H Calcium Level 7.9 MG/DL (8.5-10.1) L Phosphorus Level 2.7 MG/DL (2.5-4.9) Magnesium Level 1.8 MG/DL (1.8-2.4) Total Bilirubin 0.2 MG/DL (0.2-1.0) Direct Bilirubin 0.1 MG/DL (0.0-0.3) Aspartate Amino Transf (AST/SGOT) 17 U/L (15-37) Alanine Aminotransferase (ALT/SGPT) 12 U/L (12-78) Alkaline Phosphatase 104 U/L (46-116) Total Protein 8.5 G/DL (6.4-8.2) H Albumin 1.4 G/DL (3.4-5.0) L Random Amikacin Level 13.5 ug/mL 3.1 ug/mL Donny Kelley MD Jan 04, 2019 21:13
[2019-01-05] VITALS: BP 105/56
[2019-01-05 04:00] VITALS: BP 105/65
[2019-01-05] MEDS: NovoLOG Insulin Flexpen SUBQ SCH ×4 (05:29→23:55)
[2019-01-05] MEDS: Amikacin 1,000 MG in NS 110 ML IV SCH (05:30)
[2019-01-05 06:11] LABS: AMYLASE 142 U/L (25-115)
--- NOTE | 2019-01-05 07:41 | NUR ---
HAND-OFF: Report given to Roland SCHILLING. Patient in stable condition.
[2019-01-05 08:00] VITALS: BP 92/62
[2019-01-05] MEDS: Heparin 5000 units/ml inj SUBQ SCH ×2 (09:03→20:15)
[2019-01-05] MEDS: Levemir Flexpen SUBQ SCH ×2 (09:04→20:16)
[2019-01-05] MEDS: Aztreonam Inj 2 GM in D5W 110 ML IVPB SCH ×3 (09:12→23:53)
--- NOTE | 2019-01-05 10:26 | Infectious Diseases Prog Note ---
Assessment/Plan Assessment/Plan Gram positive bacteremia- PICC line infection -12/26 2d echo: no vegetations 12/23 SP -Removal of PICC line - -12/20 1/ E. fecalis (S Van, amp), 1/2 MRSA. PICC line; Peripheral NTD; Bcx NTD; 12/23 Neg Septic shock , SP Severe Sepsis 2ry to GNR bacteremia, PNA, sp Rx -01/02 CXR: Chronic appearing interstitial opacities are again demonstrated in the right upper lobe as well as more generalized. There is suggestion of small bilateralpleural effusions, unchanged -12/24 CXR: Bilateral interstitial and airspace opacities, worse in the right upper lobe, slightly worse than prior study. -12/21 CXR: Bilateral interstitial and airspace opacities, associated bronchiectasis are again demonstrated. There is blunting of the left costophrenic sulcus again demonstrated. -12/17 CXR: No significant interval change in the diffuse patchy bilateral reticular interstitial and airspace opacities. -CXR: Probable small left pleural effusion, also evident on prior study 2017. Bilateral interstitial disease, unchanged, suspect chronic. Correlate with clinical findings -sp CX MDR PsA (S Gentamicin, AMikacin, Cefepime, Aztreonam, Tobramycin); repeats sp cx 12/20 MRSA; likely colonzier as vent settings stable GNR bacteremia, likely from UTI -CT abd/p: Findings consistent with uncomplicated nonnecrotizing acute pancreatitis. No evidence of associated peripancreatic abscess Surgical changes as described, including right lower quadrant ileostomy, subtotal colectomy with Haroldo procedure. Wall thickening of the Haroldo pouch. This could indicate inflammation. However, this is also present on both of the prior 2 exams and may be baseline for this patien. Evidence of mild anasarca, with edema of the subcutaneous fat. This is a new finding. Chronic appearing decubitus changes of the bilateral ischia. Correlate with clinical findings. Complete left lower lobe consolidation. This is similar to both of the prior CTs, andis likely a chronic finding. There is progressive chronic interstitial fibrotic change involving the right middle lobe. There is also right lower lobe granulomatous calcification, Extensive pulmonary parenchymal opacities bilaterally may reflect acute inflammation/infection, edema, progressive chronic scarring, orcombination of the above. These are considerably more extensive than on the prior study -u/a 10-15, nit neg, luek +3; ucx 50-60k Enterococcus (Vanco resist; S AMp), 40-50 K Proteus -12/07 Bcx 3/ Proteus; 12/08 Bcx 1/4 Proteus (S Aztreonam; R Cipro, levo; I Imipenem); Acute pancreatitis -lipase ~1k Fever - recurrent- in the setting of bacteremia and pancreaitis; Leukocytosis , recurrent, increased--in the setting of bacteremia, UTI and acute pancreatitis -CT abd/p Suspected active decubitus ulcer right side with evidence of drainage. Correlate clinically. No deeper abscess or drainable collections identified. The ulcer probes to the right ischium. Acute osteomyelitis or acute on chronic osteomyelitis may be considered. Chronic bilateral grade 4 decubitus ulcers with the large areas absent eroded posterior ischia and absent lower sacrum and coccyx due to previous osteomyelitis. Scrotal swelling with skin thickening and suggestion of heterogeneous fluid within the scrotal sac. Correlate clinically. No evidence of intra-abdominal or pelvic abscess or other acute pathology.Chronic dense left posterior basilar consolidation/atelectasis. Extensive fibrosis and cystic replacement anterior right lung base middle lobe. Sacral decubitus ulcer- w/ acute or acute on chronic OM --sacral wound cx KPC K.pna (S Cefepime, Amikacin), E.coli (S Zosyn), P. mirabilis (R cipro/levo, amp) CT 12/30/18 - OM of sacrum CONS bacteremia- likely contaminant -12/12 Bcx 1/ CONS; 12/14 Bcx Neg MAULIK, improving dysphagia s/p peg COPD GBS quadriplegia chronic resp failure s/p trach HTN CVA, nonverbal anemia SNF resident Plan: -Continue Aztreonam #4 and Amikacin #2 for KPC in sacral wound -requested Aztreonam sensitivities -may try Cefepime trial based on wound cx results (unclear what is the PNC allergy) -will likely treat for 6 weeks for OM pending sacral wound cx 01/03/19 SP Linezolid #14 -12/22 SP Aztreonam #14 -12/21 SP INH tobramycin #7 -12/16 SP IV Daptomycin #7 -f/u Bcx x2, sacral wound cx -Monitor CBC/CMP, temperatures -PEG/Trach care -Aspiration precautions -management of acute pancreatitis per primary team. -wound care per surgical team Subjective Allergies: Coded Allergies: PENICILLINS (Unverified Allergy, Unknown, 02/26/16) POLYMYXIN B (Unverified Allergy, Unknown, 02/26/16) VANCOMYCIN (Unverified Allergy, Unknown, 02/26/16) Subjective Patient afebrile Leukocytosis mild Satting well on 30% O2 Objective Vital Signs Last 24 Hour Vital Signs Date Time Temp Pulse Resp B/P (MAP) Pulse Ox O2 Delivery O2 Flow Rate FiO2 01/05/19 08:55 105 21 30 01/05/19 06:32 107 18 30 01/05/19 04:47 108 18 30 01/05/19 04:00 98.9 109 21 105/65 (78) 98 01/05/19 04:00 Mechanical Ventilator 01/05/19 04:00 30 01/05/19 03:27 108 01/05/19 03:00 112 18 30 01/05/19 00:53 105 20 30 01/05/19 00:00 99.2 112 24 105/56 (72) 98 01/05/19 00:00 Mechanical Ventilator 01/04/19 23:25 115 01/04/19 22:36 101 22 30 01/04/19 20:37 116 26 30 01/04/19 20:00 99.6 117 22 104/64 (77) 97 01/04/19 20:00 30 01/04/19 20:00 Mechanical Ventilator 01/04/19 19:06 113 27 30 01/04/19 19:01 112 01/04/19 16:57 118 27 30 01/04/19 16:00 Mechanical Ventilator 01/04/19 16:00 30 01/04/19 16:00 100.0 116 24 95/66 (76) 99 01/04/19 16:00 118 01/04/19 15:20 117 25 30 01/04/19 13:06 116 26 30 01/04/19 12:00 Mechanical Ventilator 01/04/19 12:00 117 01/04/19 12:00 99.9 119 28 103/68 (80) 99 01/04/19 12:00 30 01/04/19 11:05 116 23 30 Height (Feet): 5 Height (Inches): 8.00 Weight (Pounds): 148 Objective GEN: On 30 % O2 satting well HEENT: CTAB, PERRL, MMM. LUNGS: CTAB, No W HEART: RRR, S1, S2 ABDOMEN: Soft and nontender Laboratory Tests Test 01/04/19 18:15 01/05/19 03:05 Random Amikacin Level 3.1 ug/mL Amylase Level 142 U/L (25-115) H Lipase 801 U/L (73-393) H Current Medications Medications (Trade) Dose Ordered Sig/Fransisco Route PRN Reason Start Time Stop Time Status Last Admin Dose Admin Acetaminophen (Tylenol) 650 mg Q4H PRN GT For Pain 12/28/18 05:00 01/06/19 16:59 Amikacin Protocol (Amikacin pharmacy to dose) 1 ea DAILY PRN MISC Per rx protocol 01/03/19 16:30 02/02/19 16:29 Amikacin Sulfate 1000 mg/Sodium Chloride 114 ml @ 228 mls/hr Q36H IV 01/05/19 06:00 01/12/19 05:59 01/05/19 05:30 Aztreonam 2 gm/ Dextrose 110 ml @ 220 mls/hr Q8H IVPB 01/02/19 16:00 01/09/19 15:59 01/05/19 09:12 Calcitonin [place] (Miacalcin) 1 sprays DAILY NASAL 12/28/18 09:00 01/24/19 10:59 01/05/19 09:04 Chlorhexidine Gluconate (Sandra-Hex 2%) 1 applic DAILY@2000 TOPIC 12/28/18 20:00 01/09/19 19:59 01/04/19 20:09 Dextrose (Dextrose 50%) 25 ml Q30M PRN IV Hypoglycemia 01/01/19 00:15 01/31/19 00:14 Dextrose (Dextrose 50%) 50 ml Q30M PRN IV Hypoglycemia 01/01/19 00:15 01/31/19 00:14 Diltiazem HCl (Cardizem) 10 mg BIDPRN PRN IVP FOR HR >140 12/28/18 08:45 01/11/19 08:44 Fenofibrate (Tricor) 145 mg DAILY ORAL 12/31/18 09:00 01/30/19 08:59 01/05/19 09:04 Gemfibrozil (Lopid) 600 mg TWICE A DAY GT 12/28/18 09:00 01/14/19 10:14 01/05/19 09:04 Heparin Sodium (Porcine) (Heparin 5000 units/ml) 5,000 units EVERY 12 HOURS SUBQ 12/28/18 09:00 01/06/19 20:59 01/05/19 09:03 Insulin Aspart (NovoLOG) EVERY 6 HOURS SUBQ 01/01/19 06:00 01/31/19 05:59 01/05/19 05:29 Insulin Detemir (Levemir) 20 units Q12HR SUBQ 01/02/19 21:00 01/27/19 13:59 01/05/19 09:04 Lansoprazole (Prevacid) 30 mg BID GT 12/28/18 09:00 01/16/19 08:59 01/05/19 09:04 Nateglinide (Starlix) 120 mg Q8HR ORAL 12/28/18 06:00 01/17/19 21:59 01/05/19 05:18 Nitroglycerin (Ntg) 0.4 mg Q5M PRN SL Prn Chest Pain 12/28/18 04:50 01/06/19 16:59 Ondansetron HCl (Zofran) 4 mg Q6H PRN IVP Nausea & Vomiting 12/28/18 05:00 01/06/19 16:59 01/01/19 13:49 Polyethylene Glycol (Miralax) 17 gm DAILYPRN PRN GT Constipation 12/28/18 09:45 01/06/19 16:59 Chico Allen MD Jan 05, 2019 10:26
--- NOTE | 2019-01-05 10:33 | Urology Progress Note ---
Assessment/Plan Assessment/Plan 1. Urinary retention with chronic suprapubic tube. 2. Probable neurogenic bladder. 3. UTI colonization. 4. Hematuria. 5. Proteinuria. 6. Cystitis. 7. Renal cyst versus small mass. 8. Scrotal edema. 9. Hydrocele. new SP tube placed 01/04 hand irrigate PRN abx as ordered serial renal imaging Subjective Allergies: Coded Allergies: PENICILLINS (Unverified Allergy, Unknown, 02/26/16) POLYMYXIN B (Unverified Allergy, Unknown, 02/26/16) VANCOMYCIN (Unverified Allergy, Unknown, 02/26/16) Subjective all noted, new sp tube draining ok, mild leakage Objective Last 24 Hour Vital Signs Date Time Temp Pulse Resp B/P (MAP) Pulse Ox O2 Delivery O2 Flow Rate FiO2 01/05/19 08:55 105 21 30 01/05/19 06:32 107 18 30 01/05/19 04:47 108 18 30 01/05/19 04:00 98.9 109 21 105/65 (78) 98 01/05/19 04:00 Mechanical Ventilator 01/05/19 04:00 30 01/05/19 03:27 108 01/05/19 03:00 112 18 30 01/05/19 00:53 105 20 30 01/05/19 00:00 99.2 112 24 105/56 (72) 98 01/05/19 00:00 Mechanical Ventilator 01/04/19 23:25 115 01/04/19 22:36 101 22 30 01/04/19 20:37 116 26 30 01/04/19 20:00 99.6 117 22 104/64 (77) 97 01/04/19 20:00 30 01/04/19 20:00 Mechanical Ventilator 01/04/19 19:06 113 27 30 01/04/19 19:01 112 01/04/19 16:57 118 27 30 01/04/19 16:00 Mechanical Ventilator 01/04/19 16:00 30 01/04/19 16:00 100.0 116 24 95/66 (76) 99 01/04/19 16:00 118 01/04/19 15:20 117 25 30 01/04/19 13:06 116 26 30 01/04/19 12:00 Mechanical Ventilator 01/04/19 12:00 117 01/04/19 12:00 99.9 119 28 103/68 (80) 99 01/04/19 12:00 30 01/04/19 11:05 116 23 30 Intake and Output 01/04/19 01/05/19 19:00 07:00 Intake Total 670 ml 869 ml Output Total 750 ml 1225 ml Balance -80 ml -356 ml Intake Free Water 250 ml 150 ml IV Total 330 ml 224 ml Tube Feeding 90 ml 495 ml Output Urine Total 450 ml 1000 ml Stool Total 300 ml 225 ml Microbiology Date/Time Source Procedure Growth Status 12/30/18 17:50 Blood Blood Culture - Final NO GROWTH AFTER 5 DAYS Complete 12/28/18 04:30 Other(Specify in comment) Catheter Tip Culture - Final NO GROWTH AFTER 4 DAYS Complete 12/20/18 13:00 Sputum Induced Gram Stain - Final Complete 12/20/18 13:00 Sputum Culture - Final Staphylococcus Aureus - Mrsa Usual Respiratory Shelly Complete 12/30/18 17:37 Stool Clostridium difficile Toxin Assay - Final Complete 12/26/18 04:00 Urine,Clean Catch Urine Culture - Final Meera Albicans Complete 12/30/18 17:37 Sacral Wound Gram Stain - Final Complete 12/30/18 17:37 Wound Culture - Final K.pneumoniae Carbapenem Resist Escherichia Coli - Esbl Proteus Mirabilis Complete Current Medications Medications (Trade) Dose Ordered Sig/Fransisco Route PRN Reason Start Time Stop Time Status Last Admin Dose Admin Acetaminophen (Tylenol) 650 mg Q4H PRN GT For Pain 12/28/18 05:00 01/06/19 16:59 Amikacin Protocol (Amikacin pharmacy to dose) 1 ea DAILY PRN MISC Per rx protocol 01/03/19 16:30 02/02/19 16:29 Amikacin Sulfate 1000 mg/Sodium Chloride 114 ml @ 228 mls/hr Q36H IV 01/05/19 06:00 01/12/19 05:59 01/05/19 05:30 Aztreonam 2 gm/ Dextrose 110 ml @ 220 mls/hr Q8H IVPB 01/02/19 16:00 01/09/19 15:59 01/05/19 09:12 Calcitonin [place] (Miacalcin) 1 sprays DAILY NASAL 12/28/18 09:00 01/24/19 10:59 01/05/19 09:04 Chlorhexidine Gluconate (Sandra-Hex 2%) 1 applic DAILY@2000 TOPIC 12/28/18 20:00 01/09/19 19:59 01/04/19 20:09 Dextrose (Dextrose 50%) 25 ml Q30M PRN IV Hypoglycemia 01/01/19 00:15 01/31/19 00:14 Dextrose (Dextrose 50%) 50 ml Q30M PRN IV Hypoglycemia 01/01/19 00:15 01/31/19 00:14 Diltiazem HCl (Cardizem) 10 mg BIDPRN PRN IVP FOR HR >140 12/28/18 08:45 01/11/19 08:44 Fenofibrate (Tricor) 145 mg DAILY ORAL 12/31/18 09:00 01/30/19 08:59 01/05/19 09:04 Gemfibrozil (Lopid) 600 mg TWICE A DAY GT 12/28/18 09:00 01/14/19 10:14 01/05/19 09:04 Heparin Sodium (Porcine) (Heparin 5000 units/ml) 5,000 units EVERY 12 HOURS SUBQ 12/28/18 09:00 01/06/19 20:59 01/05/19 09:03 Insulin Aspart (NovoLOG) EVERY 6 HOURS SUBQ 01/01/19 06:00 01/31/19 05:59 01/05/19 05:29 Insulin Detemir (Levemir) 20 units Q12HR SUBQ 01/02/19 21:00 01/27/19 13:59 01/05/19 09:04 Lansoprazole (Prevacid) 30 mg BID GT 12/28/18 09:00 01/16/19 08:59 01/05/19 09:04 Nateglinide (Starlix) 120 mg Q8HR ORAL 12/28/18 06:00 01/17/19 21:59 01/05/19 05:18 Nitroglycerin (Ntg) 0.4 mg Q5M PRN SL Prn Chest Pain 12/28/18 04:50 01/06/19 16:59 Ondansetron HCl (Zofran) 4 mg Q6H PRN IVP Nausea & Vomiting 12/28/18 05:00 01/06/19 16:59 01/01/19 13:49 Polyethylene Glycol (Miralax) 17 gm DAILYPRN PRN GT Constipation 12/28/18 09:45 4/5/19 16:59 Laboratory Tests 01/04/19 18:15: Random Amikacin Level 3.1 01/05/19 03:05: Amylase Level 142H, Lipase 801H Height (Feet): 5 Height (Inches): 8.00 Weight (Pounds): 148 Objective exam stable, urine yellow with debris Ramez Gonzalez MD Jan 05, 2019 10:33
--- NOTE | 2019-01-05 11:30 | Progress Note ---
DATE: 12/08/2018 SUBJECTIVE: The patient with low-grade fever and tachycardia, but hemodynamically stable. PHYSICAL EXAMINATION: VITAL SIGNS: Blood pressure 104/64, his pulse is 117, respirations are 22, and temperature 99.6. HEENT: Eyes were normal. ENT, mucous membranes were moist and intact. NECK: Supple with no JVD without lymph nodes. Tracheostomy site is clean. LUNGS: Clear without rhonchi, rales, or wheezing. Secretions are small, thin, and mcclure. HEART: Normal sounds with regular beats. No S3, S4, or pericardial rub. ABDOMEN: Soft and nontender with normal bowel sounds. Gastrostomy site is clean. EXTREMITIES: Warm without cyanosis, clubbing, or edema. LABORATORY AND DIAGNOSTIC DATA: Hemoglobin is 9.2, hematocrit 27.4 with MCV of 92, WBC of 12.9, and platelets 226. His BUN and creatinine is 26 and 0.8 respectively. His sodium is 136, potassium 5.1, chloride 102, CO2 is 22. His is 2.7 and magnesium is 1.8. His albumin is 1.4. Total protein is 8.5. Blood culture taken two days ago on December 30, 2018, was negative. IMPRESSION AND PLAN: The patient not respond to the antibiotic. Repeat laboratory tests and chest x-ray will be done in the morning. Neema Hutchins M.D. DR: YOVANI JOB#: [id number] CC:
--- NOTE | 2019-01-05 11:31 | Pulmonolgy Critical Care Note ---
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 Assessment/Plan: hemodynamically getting better Respiratory: monitor respiratory rate, adjust FIO2, CXR Cardiac: continue to monitor HR/BP Renal: F/U I&O, check electrolytes Infectious Disease: check cultures, add antibiotics Gastrointestinal: continue feedings/current rate Endocrine: monitor blood sugar Hematologic: transfuse if hgb<8.5 Neurologic: PRN Ativan, PRN Morphine, keep patient comfortable Prophylaxis: Heparin Time Spent (Minutes): 40 Notes Reviewed: 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 with: nurses, consultants, case pickermanager wind - Objective Last 24 Hour Vital Signs Date Time Temp Pulse Resp B/P (MAP) Pulse Ox O2 Delivery O2 Flow Rate FiO2 01/05/19 10:53 104 23 30 01/05/19 08:55 105 21 30 01/05/19 08:00 98.9 108 23 92/62 (72) 99 01/05/19 08:00 30 01/05/19 08:00 Mechanical Ventilator 01/05/19 07:48 108 01/05/19 06:32 107 18 30 01/05/19 04:47 108 18 30 01/05/19 04:00 98.9 109 21 105/65 (78) 98 01/05/19 04:00 Mechanical Ventilator 01/05/19 04:00 30 01/05/19 03:27 108 01/05/19 03:00 112 18 30 01/05/19 00:53 105 20 30 01/05/19 00:00 99.2 112 24 105/56 (72) 98 01/05/19 00:00 Mechanical Ventilator 01/04/19 23:25 115 01/04/19 22:36 101 22 30 01/04/19 20:37 116 26 30 01/04/19 20:00 99.6 117 22 104/64 (77) 97 01/04/19 20:00 30 01/04/19 20:00 Mechanical Ventilator 01/04/19 19:06 113 27 30 01/04/19 19:01 112 01/04/19 16:57 118 27 30 01/04/19 16:00 Mechanical Ventilator 01/04/19 16:00 30 01/04/19 16:00 100.0 116 24 95/66 (76) 99 01/04/19 16:00 118 01/04/19 15:20 117 25 30 01/04/19 13:06 116 26 30 01/04/19 12:00 Mechanical Ventilator 01/04/19 12:00 117 01/04/19 12:00 99.9 119 28 103/68 (80) 99 01/04/19 12:00 30 Status: awake Condition: critical, grave HEENT: atraumatic Neck: full ROM Heart: HR/BP stable, HR/BP unstable, regular Abdomen: non-tender, active bowel sounds Extremities: no C/C/E, edema Accucheck: 176 Critical Care - Subjective ICU Day: late note for 01/04 Condition: critical FI02: 30 Vent Support Breath Rate: 18 Vent Support Mode: AC Vent Tidal Volume: 500 Sputum Amount: Moderate PEEP: 5.0 PIP: 31 Tube Feeding Amount: 45 I&O: Intake and Output 01/04/19 01/05/19 19:00 07:00 Intake Total 670 ml 869 ml Output Total 750 ml 1225 ml Balance -80 ml -356 ml Intake Free Water 250 ml 150 ml IV Total 330 ml 224 ml Tube Feeding 90 ml 495 ml Output Urine Total 450 ml 1000 ml Stool Total 300 ml 225 ml Labs: Laboratory Tests Test 01/04/19 18:15 01/05/19 03:05 Random Amikacin Level 3.1 ug/mL Amylase Level 142 U/L (25-115) H Lipase 801 U/L (73-393) H Abhishek Guerra MD Jan 05, 2019 11:31
--- NOTE | 2019-01-05 11:32 | Pulmonolgy Critical Care Note ---
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 Respiratory: monitor respiratory rate, adjust FIO2, CXR Cardiac: continue to monitor HR/BP Renal: F/U I&O, check electrolytes Infectious Disease: check cultures Endocrine: monitor blood sugar Hematologic: transfuse if hgb<8.5 Neurologic: PRN Ativan, PRN Morphine, keep patient comfortable Time Spent (Minutes): 40 Notes Reviewed: incident handler, cardio, 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 with: nurses, consultants, bilingual case managerinformation systems audit manager - Objective Last 24 Hour Vital Signs Date Time Temp Pulse Resp B/P (MAP) Pulse Ox O2 Delivery O2 Flow Rate FiO2 01/05/19 10:53 104 23 30 01/05/19 08:55 105 21 30 01/05/19 08:00 98.9 108 23 92/62 (72) 99 01/05/19 08:00 30 01/05/19 08:00 Mechanical Ventilator 01/05/19 07:48 108 01/05/19 06:32 107 18 30 01/05/19 04:47 108 18 30 01/05/19 04:00 98.9 109 21 105/65 (78) 98 01/05/19 04:00 Mechanical Ventilator 01/05/19 04:00 30 01/05/19 03:27 108 01/05/19 03:00 112 18 30 01/05/19 00:53 105 20 30 01/05/19 00:00 99.2 112 24 105/56 (72) 98 01/05/19 00:00 Mechanical Ventilator 01/04/19 23:25 115 01/04/19 22:36 101 22 30 01/04/19 20:37 116 26 30 01/04/19 20:00 99.6 117 22 104/64 (77) 97 01/04/19 20:00 30 01/04/19 20:00 Mechanical Ventilator 01/04/19 19:06 113 27 30 01/04/19 19:01 112 01/04/19 16:57 118 27 30 01/04/19 16:00 Mechanical Ventilator 01/04/19 16:00 30 01/04/19 16:00 100.0 116 24 95/66 (76) 99 01/04/19 16:00 118 01/04/19 15:20 117 25 30 01/04/19 13:06 116 26 30 01/04/19 12:00 Mechanical Ventilator 01/04/19 12:00 117 01/04/19 12:00 99.9 119 28 103/68 (80) 99 01/04/19 12:00 30 Status: awake Condition: grave Neck: full ROM Lungs: chest wall tender Heart: HR/BP unstable Abdomen: soft, feeding tube Extremities: edema Accucheck: 176 Critical Care - Subjective ROS Limited/Unobtainable: Yes Condition: critical EKG Rhythm: Sinus Rhythm FI02: 30 Vent Support Breath Rate: 18 Vent Support Mode: AC Vent Tidal Volume: 500 Sputum Amount: Moderate PEEP: 5.0 PIP: 31 Tube Feeding Amount: 45 I&O: Intake and Output 01/04/19 01/05/19 19:00 07:00 Intake Total 670 ml 869 ml Output Total 750 ml 1225 ml Balance -80 ml -356 ml Intake Free Water 250 ml 150 ml IV Total 330 ml 224 ml Tube Feeding 90 ml 495 ml Output Urine Total 450 ml 1000 ml Stool Total 300 ml 225 ml Labs: Laboratory Tests Test 01/04/19 18:15 01/05/19 03:05 Random Amikacin Level 3.1 ug/mL Amylase Level 142 U/L (25-115) H Lipase 801 U/L (73-393) H Abhishek Guerra MD Jan 05, 2019 11:32
[2019-01-05 12:00] VITALS: BP 117/87
--- NOTE | 2019-01-05 12:19 | NUR ---
RD ASSESSMENT & RECOMMENDATIONS SEE CARE ACTIVITY FOR COMPLETE ASSESSMENT DAILY ESTIMATED NEEDS: Needs based on critical care, wound/ 63kg 22-30 kcals/kg 6397-7718 total kcals 1.5-2 g protein/kg 94-126 g total protein 25-30 mL/kg 6785-8343 total fluid mLs NUTRITION DIAGNOSIS: 1) Increased kcal and protein needs r/t wound healing as evidenced by pt w/ multiple advanced wounds, including Unstageable wound at L earlobe. 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 3) Altered nutrition related lab values r/t clinical status as evidenced by hyperglycemia w/ POC glu (128-319), elev K (5.2, 5.7- now wnl-> back up 5.1), elev Na (148 -> wnl), elev BUN (30->26). CURRENT TF:Glucerna 1.5 @ 45ml/hr x 24 hrs + PS BID ENTERAL NUTRITION RECOMMENDATIONS: Nepro @ 35ml/hr x 24 hrs + Prosource 1pkt TID to provide to provide 840ml, 1512kcal, 68g +33g prot, 611ml free water - REC TF CHANGE NEPRO -> freuqent episodes of hyperkalemia : will provide 890mg K per day (1831mg less K than current TF) - Add Prosource 1pkt TID to meet protein needs - Keep HOB >30degrees/ water flush per MD - Will provide 112g CHO per day TPN Comment: * consult RD as medically needed * ADDITIONAL RECOMMENDATIONS: * RE-calibrate bed scale wt for accurate CBW * Rec TF change as above -> to NEPRO for less K content * Wound care: add MITCHELL BID + Vit C 500mg QD * Monitor BGs closely: improved w/ Levemir BID * Consider TPN if Lipase is not trending down. .
--- NOTE | 2019-01-05 14:13 | NUR ---
*-* DISCHARGE PLANNING *-* PATIENT HAS BEEN REFERRED TO: [facility] F:[phone]
--- NOTE | 2019-01-05 14:43 | General Progress Note ---
Assessment/Plan Problem List: (1) Tracheostomy in place ICD Codes: Z98.89 - Other specified postprocedural states SNOMED: 047387298 (2) Acute and chronic respiratory failure ICD Codes: J96.20 - Acute and chronic respiratory failure, unspecified whether with hypoxia or hypercapnia SNOMED: 86780575, 51003924 (3) Decubitus ulcer of sacral region, stage 2 ICD Codes: L89.152 - Pressure ulcer of sacral region, stage 2 SNOMED: 275975314, 045228381 (4) Cerebral vascular disease ICD Codes: I67.9 - Cerebrovascular disease, unspecified SNOMED: 65928439 (5) Colostomy care ICD Codes: Z43.3 - Encounter for attention to colostomy SNOMED: 445575232 (6) Hypertension ICD Codes: I10 - Essential (primary) hypertension SNOMED: 64578777 (7) Diabetes mellitus, type II ICD Codes: E11.9 - Type 2 diabetes mellitus without complications SNOMED: 35650183 (8) Feeding by G-tube ICD Codes: Z93.1 - Gastrostomy status SNOMED: 068904666, 384130646 (9) Anemia ICD Codes: D64.9 - Anemia, unspecified SNOMED: 839130685 (10) Pancreatitis ICD Codes: K85.90 - Acute pancreatitis without necrosis or infection, unspecified SNOMED: 51145915 Assessment/Plan Occult blood stool positive >>1/3>>> repeat stool ob fu CBC Hepatitis panel negative Pancreatitis secondary to hypertriglyceridemia Elevated CA 19, mild Repeat lipid panel shows hypertriglyceridemia TriCor and lopid Stable H&H - PRN transfusions ppi daily GTFs per RD repeat lipase Supportive care Subjective ROS Limited/Unobtainable: No Allergies: Coded Allergies: PENICILLINS (Unverified Allergy, Unknown, 02/26/16) POLYMYXIN B (Unverified Allergy, Unknown, 02/26/16) VANCOMYCIN (Unverified Allergy, Unknown, 02/26/16) Objective Last 24 Hour Vital Signs Date Time Temp Pulse Resp B/P (MAP) Pulse Ox O2 Delivery O2 Flow Rate FiO2 01/05/19 13:04 120 23 30 01/05/19 12:00 99.5 117 23 117/87 (97) 98 01/05/19 12:00 30 01/05/19 12:00 Mechanical Ventilator 01/05/19 12:00 109 01/05/19 10:53 104 23 30 01/05/19 08:55 105 21 30 01/05/19 08:00 98.9 108 23 92/62 (72) 99 01/05/19 08:00 30 01/05/19 08:00 Mechanical Ventilator 01/05/19 07:48 108 01/05/19 06:32 107 18 30 01/05/19 04:47 108 18 30 01/05/19 04:00 98.9 109 21 105/65 (78) 98 01/05/19 04:00 Mechanical Ventilator 01/05/19 04:00 30 01/05/19 03:27 108 01/05/19 03:00 112 18 30 01/05/19 00:53 105 20 30 01/05/19 00:00 99.2 112 24 105/56 (72) 98 01/05/19 00:00 Mechanical Ventilator 01/04/19 23:25 115 01/04/19 22:36 101 22 30 01/04/19 20:37 116 26 30 01/04/19 20:00 99.6 117 22 104/64 (77) 97 01/04/19 20:00 30 01/04/19 20:00 Mechanical Ventilator 01/04/19 19:06 113 27 30 01/04/19 19:01 112 01/04/19 16:57 118 27 30 01/04/19 16:00 Mechanical Ventilator 01/04/19 16:00 30 01/04/19 16:00 100.0 116 24 95/66 (76) 99 01/04/19 16:00 118 01/04/19 15:20 117 25 30 Intake and Output 01/04/19 01/05/19 19:00 07:00 Intake Total 670 ml 869 ml Output Total 750 ml 1225 ml Balance -80 ml -356 ml Intake Free Water 250 ml 150 ml IV Total 330 ml 224 ml Tube Feeding 90 ml 495 ml Output Urine Total 450 ml 1000 ml Stool Total 300 ml 225 ml Laboratory Tests 01/04/19 18:15: Random Amikacin Level 3.1 01/05/19 03:05: Amylase Level 142H, Lipase 801H Height (Feet): 5 Height (Inches): 8.00 Weight (Pounds): 148 General Appearance: no apparent distress EENT: normal ENT inspection Neck: supple Cardiovascular: normal rate Respiratory/Chest: decreased breath sounds Abdomen: normal bowel sounds, non tender, soft Extremities: non-tender Benjamin Jackson MD Jan 05, 2019 14:43
[2019-01-05] MEDS ORDERED: Sterile Water Irrig 1000ml IRRIG ONE (15:12)
[2019-01-05] MEDS ORDERED: NS 275ml ONE (15:12)
[2019-01-05] MEDS ORDERED: Tubing IV Secondary IV ONE (15:12)
--- NOTE | 2019-01-05 15:32 | Nephrology Progress Note ---
Assessment/Plan Problem List: (1) Hypercalcemia (2) ATN (acute tubular necrosis) (3) Anemia (4) Feeding by G-tube (5) Acute and chronic respiratory failure (6) UTI (urinary tract infection) (7) Hyponatremia Assessment in MIKE - Glucose better controlled Periodic high K Patient have mainly Pre Renal Azotemia with possible underlying CKD- Low Na partly depletional, partly due to Hyperglycemia RESOLVED Other conditions as outlined: (1) Acute and chronic respiratory failure ([id number]) (2) Sepsis (3) Malnutrition and HypoAlbuminemia (4) UTI (urinary tract infection) (5) Anemia (6) Diabetes mellitus, type II (7) Colostomy care (8) Cerebral vascular disease (9) Decubitus ulcer of sacral region, stage 2 (10) Feeding by G-tube (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 Plan K & Phos supplement as needed Levemir and adjust dose Kayexelate for high K as needed Stop Digoxin stop Atenolol Stop Cardiazem Pressors as needed Albumin bolus as needed AREDIA 90 mg for HYPERCALCEMIA on 12/23 - Calcium level will redose On Starlix feeding to glucerna Keep electrolytes in check Keep BS and BP in check per consultants Subjective ROS Limited/Unobtainable: Yes Objective Objective Last 24 Hour Vital Signs Date Time Temp Pulse Resp B/P (MAP) Pulse Ox O2 Delivery O2 Flow Rate FiO2 01/05/19 14:44 119 26 30 01/05/19 13:04 120 23 30 01/05/19 12:00 99.5 117 23 117/87 (97) 98 01/05/19 12:00 30 01/05/19 12:00 Mechanical Ventilator 01/05/19 12:00 109 01/05/19 10:53 104 23 30 01/05/19 08:55 105 21 30 01/05/19 08:00 98.9 108 23 92/62 (72) 99 01/05/19 08:00 30 01/05/19 08:00 Mechanical Ventilator 01/05/19 07:48 108 01/05/19 06:32 107 18 30 01/05/19 04:47 108 18 30 01/05/19 04:00 98.9 109 21 105/65 (78) 98 01/05/19 04:00 Mechanical Ventilator 01/05/19 04:00 30 01/05/19 03:27 108 01/05/19 03:00 112 18 30 01/05/19 00:53 105 20 30 01/05/19 00:00 99.2 112 24 105/56 (72) 98 01/05/19 00:00 Mechanical Ventilator 01/04/19 23:25 115 01/04/19 22:36 101 22 30 01/04/19 20:37 116 26 30 01/04/19 20:00 99.6 117 22 104/64 (77) 97 01/04/19 20:00 30 01/04/19 20:00 Mechanical Ventilator 01/04/19 19:06 113 27 30 01/04/19 19:01 112 01/04/19 16:57 118 27 30 01/04/19 16:00 Mechanical Ventilator 01/04/19 16:00 30 01/04/19 16:00 100.0 116 24 95/66 (76) 99 01/04/19 16:00 118 Intake and Output 01/04/19 01/05/19 19:00 07:00 Intake Total 670 ml 869 ml Output Total 750 ml 1225 ml Balance -80 ml -356 ml Intake Free Water 250 ml 150 ml IV Total 330 ml 224 ml Tube Feeding 90 ml 495 ml Output Urine Total 450 ml 1000 ml Stool Total 300 ml 225 ml Laboratory Tests 01/04/19 18:15: Random Amikacin Level 3.1 01/05/19 03:05: Amylase Level 142H, Lipase 801H Height (Feet): 5 Height (Inches): 8.00 Weight (Pounds): 148 Cardiovascular: normal rate Respiratory/Chest: decreased breath sounds Abdomen: distended Objective no change Migue Moreland MD Jan 05, 2019 15:32
[2019-01-05 16:00] VITALS: BP 124/80
--- NOTE | 2019-01-05 16:15 | General Progress Note ---
Assessment/Plan Assessment/Plan Assessment/Recs: # Leukocytosis/Elevated white blood cell count,potentially due to infection with gram negative bacteremia, with uti and on abx --> have reviewed peripheral smear and bandemia/neutrophilia noted on initial smear was noted --> continue antibiotics if they have been started by ID team, titrate and change as required --> monitor for resolution ---> WBC trend: 11-->16-->15-->14-->11-->12-->10.8-->11-->12-->11-->16-->14-->16 -->13-->13 # Anemia of chronic disease due to underlying chronic medical issues, multifactorial --> Anemia workup has been reviewed, Ferritin 1573 --> No evidence of hemolysis is noted, peripheral smear reviewed --> Hgb goal >7. Transfuse prn. --> Epogen or iron at this time is not particularly indicated --> Medications have been reviewed --> HGB trend: 7.8-->7.6-->6.2-->6.4->7.1-->8.7-->9.1-->8.4-->7.8-->9.4-->7.3--> 10.6-->10.1-->11-->9.3-->9.9-->9 --> received prbc 12/25 # Thrombocytopenia - potential causes multifactorial, evaluate liver and viral etiologies to begin, also could be related to underlying medications --> Hep panel and HIV negative --> US abd to evaluate for cirrhosis and hsm reviewed --> Peripheral smear ordered to evaluate for blasts/schistocytes does not reveal any --> abx and other meds have been reviewed --> ok for ppx if plt >50k w/ either heparin or lovenox # Hypercalcemia potentailly related to dehydration --> s/p aredia as per renal --> pth reviewed --> trend Ca as needed # Severe prerenal azotemia, on ivf --> improve po oral intake and consider appetite stimulant # Severe Sepsis, CXR: Probable small left pleural effusion --> also evident on prior study 11/22/2017 --> appreciate ID recs # Bacteremia, likely from UTI, PNA --> tolerating abx well --> as per pulm # Decub ulceration --> as per surg The timing of this note does not necessarily reflect the time of the patient was seen. Greatly appreciate consultation! Subjective Constitutional: Denies: no symptoms, chills, diaphoresis, fever, malaise, weakness, other HEENT: Denies: no symptoms, eye pain, blurred vision, tearing, double vision, ear pain, ear discharge, nose pain, nose congestion, throat pain, throat swelling, mouth pain, mouth swelling, other Cardiovascular: Denies: no symptoms, chest pain, edema, irregular heart rate, lightheadedness, palpitations, syncope, other Genitourinary: Denies: no symptoms, burning, discharge, frequency, flank pain, hematuria, incontinence, pain, urgency, other Hematologic/Lymphatic: Denies: no symptoms, anemia, easy bleeding, easy bruising, other Allergies: Coded Allergies: PENICILLINS (Unverified Allergy, Unknown, 02/26/16) POLYMYXIN B (Unverified Allergy, Unknown, 02/26/16) VANCOMYCIN (Unverified Allergy, Unknown, 02/26/16) Subjective 12/11: seen by bedside, vent dependent, leukocytosis, 11, hgb 7, will transfuse, no events 12/12: awake, comfortable wbc trending up at 16, no events 12/13: hgb 6.4, receiving transfusion, , wbc remains elevated. no acute events 12/14: seen by bedside, awake, comfortable low grade fever, wbc remains elevated at 15, bacteremia on IV Abx, hgb 7.1, will transfuse as needed 12/15: Wbc remains elevated, no events reported, hgb trending up 12/16: seen by bedside, awake, comfortable, no events 12/18: seen in the room, on vent and trach, no events 12/19: reviewed cbc and appears relatively stable, on starlix, remains in sdu 12/20: seen by bedside, on vent, mild leukocytosis 12/21: Pt is resting , on vent, wbc trending up , no events 12/22: exam is essentially unchanged, on abx, have discussed with pcp, rn, wbc better 12/23: transfuse wbc 11, on abx 12/24: no events to report, on vent/trach care, without issue 12/26: in icu, resting comfortanly, off pressors 12/27: tolerating feeding and vent well, no issues, ca reviewed 12/28: no events, remains nonverbal, without complaints 12/29: no events, on vent/trach, nonverbal, no fevers 12/30: no events, labs have been reviewed, cbc noted, wbc higher 01/01: no events, on abx, wbc better, hgb lower, with nausea, on zofran 01/02: less abdominal pain, on zofran on prn basis, no f/c 01/03: no events to report, trach to vent, labs reviewed, no complaints 01/04: wounds examined, is trach to vent, no major issues 01/05: monitoring cbc, no acute bleeding episodes, remains in the sdu Objective Last 24 Hour Vital Signs Date Time Temp Pulse Resp B/P (MAP) Pulse Ox O2 Delivery O2 Flow Rate FiO2 01/05/19 14:44 119 26 30 01/05/19 13:04 120 23 30 01/05/19 12:00 99.5 117 23 117/87 (97) 98 01/05/19 12:00 30 01/05/19 12:00 Mechanical Ventilator 01/05/19 12:00 109 01/05/19 10:53 104 23 30 01/05/19 08:55 105 21 30 01/05/19 08:00 98.9 108 23 92/62 (72) 99 01/05/19 08:00 30 01/05/19 08:00 Mechanical Ventilator 01/05/19 07:48 108 01/05/19 06:32 107 18 30 01/05/19 04:47 108 18 30 01/05/19 04:00 98.9 109 21 105/65 (78) 98 01/05/19 04:00 Mechanical Ventilator 01/05/19 04:00 30 01/05/19 03:27 108 01/05/19 03:00 112 18 30 01/05/19 00:53 105 20 30 01/05/19 00:00 99.2 112 24 105/56 (72) 98 01/05/19 00:00 Mechanical Ventilator 01/04/19 23:25 115 01/04/19 22:36 101 22 30 01/04/19 20:37 116 26 30 01/04/19 20:00 99.6 117 22 104/64 (77) 97 01/04/19 20:00 30 01/04/19 20:00 Mechanical Ventilator 01/04/19 19:06 113 27 30 01/04/19 19:01 112 01/04/19 16:57 118 27 30 Intake and Output 01/04/19 01/05/19 18:59 06:59 Intake Total 660 ml 1074 ml Output Total 1650 ml 1425 ml Balance -990 ml -351 ml Intake Free Water 350 ml 200 ml IV Total 220 ml 334 ml Tube Feeding 90 ml 540 ml Output Urine Total 1250 ml 1000 ml Stool Total 400 ml 425 ml Laboratory Tests 01/04/19 18:15: Random Amikacin Level 3.1 01/05/19 03:05: Amylase Level 142H, Lipase 801H Height (Feet): 5 Height (Inches): 8.00 Weight (Pounds): 148 Objective HEENT: Eyes were normal. ENT, mucous membranes not dehydrated. NECK: Supple. There was no goiter. No mass. No lad LUNGS: Clear. Vent++/trach HEART: PMI was in the fifth left intercostal space in midclavicular line. There was normal S1 and normal S2. There was no murmur. no s3/s4 ABDOMEN: Soft and nontender without organomegaly. palpable. Normal bowel sounds without bruits. There was no guarding. rebound tenderness. No ascites. No hernia. No CVA tendernes EXTREMITIES: No cyanosis, no clubbing, and no edema. Extremities warm. Adarsh Kim MD Jan 05, 2019 16:15
--- NOTE | 2019-01-05 16:20 | Surgery Progress Note ---
Surgery Progress Note Subjective Additional Comments exam unchanged. labs noted. vitals stable. Objective Last 24 Hour Vital Signs Date Time Temp Pulse Resp B/P (MAP) Pulse Ox O2 Delivery O2 Flow Rate FiO2 01/05/19 14:44 119 26 30 01/05/19 13:04 120 23 30 01/05/19 12:00 99.5 117 23 117/87 (97) 98 01/05/19 12:00 30 01/05/19 12:00 Mechanical Ventilator 01/05/19 12:00 109 01/05/19 10:53 104 23 30 01/05/19 08:55 105 21 30 01/05/19 08:00 98.9 108 23 92/62 (72) 99 01/05/19 08:00 30 01/05/19 08:00 Mechanical Ventilator 01/05/19 07:48 108 01/05/19 06:32 107 18 30 01/05/19 04:47 108 18 30 01/05/19 04:00 98.9 109 21 105/65 (78) 98 01/05/19 04:00 Mechanical Ventilator 01/05/19 04:00 30 01/05/19 03:27 108 01/05/19 03:00 112 18 30 01/05/19 00:53 105 20 30 01/05/19 00:00 99.2 112 24 105/56 (72) 98 01/05/19 00:00 Mechanical Ventilator 01/04/19 23:25 115 01/04/19 22:36 101 22 30 01/04/19 20:37 116 26 30 01/04/19 20:00 99.6 117 22 104/64 (77) 97 01/04/19 20:00 30 01/04/19 20:00 Mechanical Ventilator 01/04/19 19:06 113 27 30 01/04/19 19:01 112 01/04/19 16:57 118 27 30 I&O Intake and Output 01/04/19 01/05/19 19:00 07:00 Intake Total 670 ml 869 ml Output Total 750 ml 1225 ml Balance -80 ml -356 ml Intake Free Water 250 ml 150 ml IV Total 330 ml 224 ml Tube Feeding 90 ml 495 ml Output Urine Total 450 ml 1000 ml Stool Total 300 ml 225 ml Dressing: saturated Wound: other Drains: other Cardiovascular: RSR Respiratory: decreased breath sounds Abdomen: soft, present bowel sounds Extremities: other Laboratory Tests Test 01/04/19 18:15 01/05/19 03:05 Random Amikacin Level 3.1 ug/mL Amylase Level 142 U/L (25-115) H Lipase 801 U/L (73-393) H Plan Problems: (1) Decubitus skin ulcer Assessment & Plan: Pt presented on admission with multiple pressure injuries and Skin erosion. Pt has trach and no evidence of skin breakdown noted under trach collar. Unstageable pressure injury noted to L earlobe. Stable dry brown eschar noted(L) 0.7cm x (W)0.5cm. Gross erythema with denudement and multiple scattered partial thickness wounds noted to buttocks and base of scrotum extending into both posterior upper thighs.Moderate amt sanguineous exudate noted upon removal of drsgs. 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 Moderate amt sanguineous exudate noted (L)3cm x (W)1cm x (D)7.4cm.Erythema periwound secondary to skin erosions. Partially opened DTPI L ischium .Base of wound purple,fluctuant with red borders.Open areas at base of this wound are beefy red in colour.Moderate amt sanguineous exudate noted.(L)7cm x (W)6.8cm. DTPI R ischium.Wound is fluctuant-purple in center with surrounding Maroon colour, and is partially opened with a small area of 5% that is necrotic.(L) 6.5cm x (W)5.5cm. Red skin erosion periwound. Partial thickness pressure injury L hip. Base of wound is moist -viable. Edges adherent and dry. Periwound without erythema or induration(L)1.2cm x (W)0.5cm. Elongate partial thickness wound posterior upper L thigh .Base of wound is moist -viable .Small amt sanguineous exudate noted. (+) maceration along borders. Erythema without induration or elevation in skin temp noted.(L)2cm x (W )9.4cm. DTPI noted to R heel .Base of injury is indurated and maroon in colour. Periwound is firm without erythema. (L)1.5cm x (W)1cm.R heel without evidence of skin breakdown. UPDATE with Full thickness pressure injury sacrum resolving. Less depth noted to tunnel, but base of wound obscured due to size and shape of wound (L)2cm x (W )0.9cm with tunneling at 12 by 3cm. Full thickness wound R ischium with 60% loose soft necrosis. 40% slough with additional necrosis along edges and periwound .No odor noted. (L)6cm x (W)6.3cm x (D)3.2cm undermining 9-12 by 3.1cm @11O'Clock. MASD with Gross erythema with skin erosion entire buttocks extending down into both ischial and both upper thighs including scrotum and bilat groin areas. Scattered satellite lesions with small amt bleeding from these areas. Small area of dry eschar noted to L buttocks (L)1.9cm x (W)2cm. Reabsorbed DTPI with stable dry brown eschar R heel (L)1.5cm x (W)2.5cm Periwound without erythema ,induration or fluctuance. Small dry scab noted to L ear without erythema periwound. No new skin concerns noted. Tx.Plan: Cleanse Sacrum with Saline. Loosely pack with Hydrogel impregnated Kerlix. Apply Triad Paste periwound. Cover with ABD pad. Daily and prn. Cleanse R and L ischial wounds with Saline. Apply Moisture Barrier Paste.Cover with abd pads Daily and prn. Apply Moisture Barrier to skin erosions on buttocks,scrotum, and posterior aspects of both thighs.Cover with ABD pad daily and prn. Cleanse wound L hip with Saline. Apply Moisture Barrier paste .Cover with Optifoam drsg Daily and prn. Cleanse wound posterior upper L thigh with saline .Apply Hydrogel. Cover with Optifoam drsg Daily and prn. Apply Cavilon Skin Barrier to L earlobe daily. Please monitor. Apply Cavilon Skin Barrier to L heel. Cover with Optifoam drsg. Change every 7 days and prn. Apply Cavilon Skin Barrier to R heel. Cover with Optifoam drsg .Change every 7 days and prn. Air fluidized mattress. Reposition every 2hours or as tolerated. Off-load heels with pillow. (2) Acute and chronic respiratory failure Assessment & Plan: cont with breathing treatments trach stable trach site clean will change dressings daily (3) Acute pancreatitis Assessment & Plan: Findings consistent with uncomplicated nonnecrotizing acute pancreatitis. No evidence of associated peripancreatic abscess Surgical changes as described, including right lower quadrant ileostomy, subtotal colectomy with Haroldo procedure. Wall thickening of the Haroldo pouch. This could indicate inflammation. However, this is also present on both of the prior 2 exams and may be baseline for this patient Evidence of mild anasarca, with edema of the subcutaneous fat. This is a new finding Chronic appearing decubitus changes of the bilateral ischia. Correlate with clinical findings Complete left lower lobe consolidation. This is similar to both of the prior CTs , and is likely a chronic finding. There is progressive chronic interstitial fibrotic change involving the right middle lobe. There is also right lower lobe granulomatous calcification Extensive pulmonary parenchymal opacities bilaterally may reflect acute inflammation/infection, edema, progressive chronic scarring, or combination of the above. These are considerably more extensive than on the prior study Trace bilateral pleural fluid New finding of nonobstructive right renal collecting system calculs 4 mm calculus within the bladder lumen. This may represent a bladder calculus, a calculus and left ureteral orifice, or recently passed stone. If either of the latter, no evidence of resultant hydronephrosis or hydroureter Suprapubic catheter. This is a new finding since the 2016 exams. Interim removal of previously demonstrated Bledsoe catheter Gastrostomy Left renal cysts. Subcentimeter low-attenuation right renal lesions, too small to characterize, most likely benign simple cysts. No further follow-up necessary elevated amylase/lipase related to lipids leukocytosis GNR Bacteremia transfused anemia Unfortunately patient not able to participate in exam and difficult to identify if clinically pancreatitis or just laboratory data. Recent CT with uncomplicated pancreatitis but enzymes still remain elevated. Patient tolerated tube feeds. Patient with gram-negative belle bacteremia likely from UTI. Patient remains febrile intermittently with worsening leukocytosis on IV antibiotics. -no acute surgical intervention planned -transfuse as per hematology -Abx as per ID -trend lip/britany - recent finding based on CT given patient cannot given history or participate in exam. CT with uncomplicated pancreatitis. okay for diet / feeds for now. IV fluids Javier Ricardo Jan 05, 2019 16:20
--- NOTE | 2019-01-05 19:13 | NUR ---
NURSE NOTES: Received bedside report from SHAKIR Watkins.Patient stable,open eyes,non verbal,ST on ui ux engineer,trach Portex 7 AC 18 TV 500 FiO2 30% PEEP 5 tolerated well,no s/s of pain,no respiratory distress noted,GT in place running Glucerna1.5@ 45 ml/hr 150 ml flush Q 4 hrs,colostomy on RLQ,BS active in all quadrants,suprapubic cath changed 01/04/19,dressings changed by wound care nurse today and recommended not changed this night,IV asymptomatic intact on EDA PICC dressing changed 01/04/19,bed secured,call light within a reach,will continue to monitor.
[2019-01-05 20:00] VITALS: BP 106/66
[2019-01-05] MEDS: Dyna-Hex 2% Top Sol 2oz TOPIC SCH (20:14)
[2019-01-06] VITALS: BP 104/71
[2019-01-06 00:05] LABS: ANION GAP 8 mmol/L (5-15); BLOOD UREA NITROGEN 36 mg/dL (7-18); CALCIUM 8.1 MG/DL (8.5-10.1); CARBON DIOXIDE 22 MMOL/L (21-32); CHLORIDE 103 MMOL/L (98-107); CREATININE 0.8 MG/DL (0.55-1.30); POTASSIUM 5.4 MMOL/L (3.5-5.1); SODIUM 133 MMOL/L (136-145)
[2019-01-06 00:16] LABS: BASOPHILS % (AUTO) 1.7 % (0.0-2.0); EOSINOPHILS % (AUTO) 2.1 % (0.0-3.0); HEMATOCRIT 24.9 % (42.0-52.0); HEMOGLOBIN 8.5 G/DL (14.2-18.0); LYMPHOCYTES % (AUTO) 10.5 % (20.0-45.0); MEAN CORPUSCULAR VOLUME 91 FL (80-99); NEUTROPHILS % (AUTO) 79.6 % (45.0-75.0); PLATELET COUNT 250 K/UL (150-450); RED BLOOD COUNT 2.72 M/UL (4.70-6.10); RED CELL DISTRIBUTION WIDTH 16.4 % (11.6-14.8); WHITE BLOOD COUNT 12.6 K/UL (4.8-10.8)
[2019-01-06 04:00] VITALS: BP 109/64
[2019-01-06] MEDS: NovoLOG Insulin Flexpen SUBQ SCH ×4 (05:24→23:21)
[2019-01-06 05:28] LABS: BASOPHILS % (AUTO) 1.5 % (0.0-2.0); EOSINOPHILS % (AUTO) 3.3 % (0.0-3.0); HEMATOCRIT 25.8 % (42.0-52.0); HEMOGLOBIN 8.3 G/DL (14.2-18.0); LYMPHOCYTES % (AUTO) 11.6 % (20.0-45.0); MEAN CORPUSCULAR VOLUME 93 FL (80-99); MONOCYTES % (AUTO) 8.3 % (1.0-10.0); NEUTROPHILS % (AUTO) 75.3 % (45.0-75.0); PLATELET COUNT 234 K/UL (150-450); RED BLOOD COUNT 2.78 M/UL (4.70-6.10); RED CELL DISTRIBUTION WIDTH 16.2 % (11.6-14.8)
[2019-01-06 05:56] LABS: ANION GAP 11 mmol/L (5-15); BLOOD UREA NITROGEN 37 mg/dL (7-18); CALCIUM 8.5 MG/DL (8.5-10.1); CARBON DIOXIDE 21 MMOL/L (21-32); CHLORIDE 102 MMOL/L (98-107); CREATININE 0.8 MG/DL (0.55-1.30); POTASSIUM 5.4 MMOL/L (3.5-5.1); SODIUM 134 MMOL/L (136-145)
--- NOTE | 2019-01-06 06:58 | NUR ---
HAND-OFF: Report given to SHAKIR Watkins.Patient stable.
--- NOTE | 2019-01-06 07:00 | Progress Note ---
DATE: 01/05/2019 SUBJECTIVE: The patient is awake, alert, afebrile. Hemodynamically stable. He most probably is now aphasic. PHYSICAL EXAMINATION: VITAL SIGNS: Blood pressure 106/66, pulse 125, respirations 28, temperature 99.7. HEENT: Eyes were normal. ENT, mucous membranes were moist and intact. NECK: Supple with no JVD without lymph nodes. Tracheostomy site is clean. LUNGS: Clear without rhonchi, rales, or wheezing. Secretions are small and pale yellow. HEART: Normal sounds with regular beat. ABDOMEN: Soft and nontender with normal bowel sounds. Gastrostomy site is clean. EXTREMITIES: Warm. No cyanosis, clubbing, or edema. IMPRESSION: The patient is clinically stable. The patient will continue his current antibiotics. Repeat laboratory tests will be done in the a.m. Repeat chest x-ray will be done in the a.m. as well. Neema Hutchins M.D. DR: EDWINA JOB#: [id number] CC:
--- NOTE | 2019-01-06 07:30 | NUR ---
RESPIRATORY NOTE: received pt on vent with current vent settings in place. pt is trached with portex 8, midline, secured via trach guard/tie. no redness or skin tears visible around stoma or neck area. no resp distress noted at this time. vent is plugged into the red outlet with alarms on and audible. ambu bag is also at bedside. will cont to monitor.
--- NOTE | 2019-01-06 07:36 | Infectious Diseases Prog Note ---
Assessment/Plan Assessment/Plan Gram positive bacteremia- PICC line infection -12/26 2d echo: no vegetations 12/23 SP -Removal of PICC line - -12/20 1/ E. fecalis (S Van, amp), 1/2 MRSA. PICC line; Peripheral NTD; Bcx NTD; 12/23 Neg Septic shock , SP Severe Sepsis 2ry to GNR bacteremia, PNA, sp Rx -01/02 CXR: Chronic appearing interstitial opacities are again demonstrated in the right upper lobe as well as more generalized. There is suggestion of small bilateralpleural effusions, unchanged -12/24 CXR: Bilateral interstitial and airspace opacities, worse in the right upper lobe, slightly worse than prior study. -12/21 CXR: Bilateral interstitial and airspace opacities, associated bronchiectasis are again demonstrated. There is blunting of the left costophrenic sulcus again demonstrated. -12/17 CXR: No significant interval change in the diffuse patchy bilateral reticular interstitial and airspace opacities. -CXR: Probable small left pleural effusion, also evident on prior study 2017. Bilateral interstitial disease, unchanged, suspect chronic. Correlate with clinical findings -sp CX MDR PsA (S Gentamicin, AMikacin, Cefepime, Aztreonam, Tobramycin); repeats sp cx 12/20 MRSA; likely colonzier as vent settings stable GNR bacteremia, likely from UTI -CT abd/p: Findings consistent with uncomplicated nonnecrotizing acute pancreatitis. No evidence of associated peripancreatic abscess Surgical changes as described, including right lower quadrant ileostomy, subtotal colectomy with Haroldo procedure. Wall thickening of the Haroldo pouch. This could indicate inflammation. However, this is also present on both of the prior 2 exams and may be baseline for this patien. Evidence of mild anasarca, with edema of the subcutaneous fat. This is a new finding. Chronic appearing decubitus changes of the bilateral ischia. Correlate with clinical findings. Complete left lower lobe consolidation. This is similar to both of the prior CTs, andis likely a chronic finding. There is progressive chronic interstitial fibrotic change involving the right middle lobe. There is also right lower lobe granulomatous calcification, Extensive pulmonary parenchymal opacities bilaterally may reflect acute inflammation/infection, edema, progressive chronic scarring, orcombination of the above. These are considerably more extensive than on the prior study -u/a 10-15, nit neg, luek +3; ucx 50-60k Enterococcus (Vanco resist; S AMp), 40-50 K Proteus -12/07 Bcx 3/ Proteus; 12/08 Bcx 1/4 Proteus (S Aztreonam; R Cipro, levo; I Imipenem); Acute pancreatitis -lipase ~1k Fever - recurrent- in the setting of bacteremia and pancreaitis; Leukocytosis , recurrent, increased--in the setting of bacteremia, UTI and acute pancreatitis -CT abd/p Suspected active decubitus ulcer right side with evidence of drainage. Correlate clinically. No deeper abscess or drainable collections identified. The ulcer probes to the right ischium. Acute osteomyelitis or acute on chronic osteomyelitis may be considered. Chronic bilateral grade 4 decubitus ulcers with the large areas absent eroded posterior ischia and absent lower sacrum and coccyx due to previous osteomyelitis. Scrotal swelling with skin thickening and suggestion of heterogeneous fluid within the scrotal sac. Correlate clinically. No evidence of intra-abdominal or pelvic abscess or other acute pathology.Chronic dense left posterior basilar consolidation/atelectasis. Extensive fibrosis and cystic replacement anterior right lung base middle lobe. Sacral decubitus ulcer- w/ acute or acute on chronic OM --sacral wound cx KPC K.pna (S Cefepime, Amikacin), E.coli (S Zosyn), P. mirabilis (R cipro/levo, amp) CT 12/30/18 - OM of sacrum CONS bacteremia- likely contaminant -12/12 Bcx / CONS; 12/14 Bcx Neg MAULIK, improving dysphagia s/p peg COPD GBS quadriplegia chronic resp failure s/p trach HTN CVA, nonverbal anemia SNF resident Plan: -Continue Aztreonam #/ and Amikacin #3/ for KPC in sacral wound -requested Aztreonam sensitivities -may try Cefepime trial based on wound cx results (unclear what is the PNC allergy) -will likely treat for 6 weeks for OM pending sacral wound cx 01/03/19 SP Linezolid #14 -12/22 SP Aztreonam #14 -12/21 SP INH tobramycin #7 -12/16 SP IV Daptomycin #7 -f/u Bcx x2, sacral wound cx -Monitor CBC/CMP, temperatures -PEG/Trach care -Aspiration precautions -management of acute pancreatitis per primary team. -wound care per surgical team Subjective Allergies: Coded Allergies: PENICILLINS (Unverified Allergy, Unknown, 02/26/16) POLYMYXIN B (Unverified Allergy, Unknown, 02/26/16) VANCOMYCIN (Unverified Allergy, Unknown, 02/26/16) Subjective Patient afebrile Leukocytosis resolving slowly Objective Vital Signs Last 24 Hour Vital Signs Date Time Temp Pulse Resp B/P (MAP) Pulse Ox O2 Delivery O2 Flow Rate FiO2 01/06/19 07:28 118 24 30 01/06/19 05:14 116 28 30 01/06/19 04:00 Mechanical Ventilator 01/06/19 04:00 30 01/06/19 04:00 99.1 116 24 109/64 (79) 98 01/06/19 03:40 115 01/06/19 03:27 112 25 30 01/06/19 01:24 117 27 30 01/06/19 00:00 99.0 117 24 104/71 (82) 100 01/06/19 00:00 Mechanical Ventilator 01/05/19 23:36 118 01/05/19 23:14 120 25 30 01/05/19 21:34 121 27 30 01/05/19 20:00 Mechanical Ventilator 01/05/19 20:00 30 01/05/19 20:00 99.7 125 28 106/66 (79) 100 01/05/19 19:17 123 28 30 01/05/19 19:04 125 01/05/19 16:30 123 23 30 01/05/19 16:00 117 01/05/19 16:00 Mechanical Ventilator 01/05/19 16:00 30 01/05/19 16:00 98.4 119 23 124/80 (95) 96 01/05/19 14:44 119 26 30 01/05/19 13:04 120 23 30 01/05/19 12:00 99.5 117 23 117/87 (97) 98 01/05/19 12:00 30 01/05/19 12:00 Mechanical Ventilator 01/05/19 12:00 109 01/05/19 10:53 104 23 30 01/05/19 08:55 105 21 30 01/05/19 08:00 98.9 108 23 92/62 (72) 99 01/05/19 08:00 30 01/05/19 08:00 Mechanical Ventilator 01/05/19 07:48 108 Height (Feet): 5 Height (Inches): 8.00 Weight (Pounds): 140 Objective GEN: NAD HEENT: CTAB, PERRL, MMM. LUNGS: CTAB, No W HEART: RRR, S1, S2 ABDOMEN: Soft and nontender Laboratory Tests Test 01/05/19 23:40 01/06/19 03:40 White Blood Count 12.6 K/UL (4.8-10.8) H 11.0 K/UL (4.8-10.8) H Red Blood Count 2.72 M/UL (4.70-6.10) L 2.78 M/UL (4.70-6.10) L Hemoglobin 8.5 G/DL (14.2-18.0) L 8.3 G/DL (14.2-18.0) L Hematocrit 24.9 % (42.0-52.0) L 25.8 % (42.0-52.0) L Mean Corpuscular Volume 91 FL (80-99) 93 FL (80-99) Mean Corpuscular Hemoglobin 31.1 PG (27.0-31.0) H 29.9 PG (27.0-31.0) Mean Corpuscular Hemoglobin Concent 34.1 G/DL (32.0-36.0) 32.3 G/DL (32.0-36.0) Red Cell Distribution Width 16.4 % (11.6-14.8) H 16.2 % (11.6-14.8) H Platelet Count 250 K/UL (150-450) 234 K/UL (150-450) Mean Platelet Volume 8.8 FL (6.5-10.1) 8.4 FL (6.5-10.1) Neutrophils (%) (Auto) 79.6 % (45.0-75.0) H 75.3 % (45.0-75.0) H Lymphocytes (%) (Auto) 10.5 % (20.0-45.0) L 11.6 % (20.0-45.0) L Monocytes (%) (Auto) 6.0 % (1.0-10.0) 8.3 % (1.0-10.0) Eosinophils (%) (Auto) 2.1 % (0.0-3.0) 3.3 % (0.0-3.0) H Basophils (%) (Auto) 1.7 % (0.0-2.0) 1.5 % (0.0-2.0) Sodium Level 133 MMOL/L (136-145) L 134 MMOL/L (136-145) L Potassium Level 5.4 MMOL/L (3.5-5.1) H 5.4 MMOL/L (3.5-5.1) H Chloride Level 103 MMOL/L (98-107) 102 MMOL/L (98-107) Carbon Dioxide Level 22 MMOL/L (21-32) 21 MMOL/L (21-32) Anion Gap 8 mmol/L (5-15) 11 mmol/L (5-15) Blood Urea Nitrogen 36 mg/dL (7-18) H 37 mg/dL (7-18) H Creatinine 0.8 MG/DL (0.55-1.30) 0.8 MG/DL (0.55-1.30) Estimat Glomerular Filtration Rate mL/min (>60) mL/min (>60) Glucose Level 191 MG/DL (74-106) H 162 MG/DL (74-106) H Calcium Level 8.1 MG/DL (8.5-10.1) L 8.5 MG/DL (8.5-10.1) Current Medications Medications (Trade) Dose Ordered Sig/Fransisco Route PRN Reason Start Time Stop Time Status Last Admin Dose Admin Acetaminophen (Tylenol) 650 mg Q4H PRN GT For Pain 12/28/18 05:00 01/06/19 16:59 Amikacin Protocol (Amikacin pharmacy to dose) 1 ea DAILY PRN MISC Per rx protocol 01/03/19 16:30 02/02/19 16:29 Amikacin Sulfate 1000 mg/Sodium Chloride 114 ml @ 228 mls/hr Q36H IV 01/05/19 06:00 01/12/19 05:59 01/05/19 05:30 Aztreonam 2 gm/ Dextrose 110 ml @ 220 mls/hr Q8H IVPB 01/02/19 16:00 01/09/19 15:59 01/05/19 23:53 Calcitonin [place] (Miacalcin) 1 sprays DAILY NASAL 12/28/18 09:00 01/24/19 10:59 01/05/19 09:04 Chlorhexidine Gluconate (Sandra-Hex 2%) 1 applic DAILY@2000 TOPIC 12/28/18 20:00 01/09/19 19:59 01/05/19 20:14 Dextrose (Dextrose 50%) 25 ml Q30M PRN IV Hypoglycemia 01/01/19 00:15 01/31/19 00:14 Dextrose (Dextrose 50%) 50 ml Q30M PRN IV Hypoglycemia 01/01/19 00:15 01/31/19 00:14 Diltiazem HCl (Cardizem) 10 mg BIDPRN PRN IVP FOR HR >140 12/28/18 08:45 01/11/19 08:44 Fenofibrate (Tricor) 145 mg DAILY ORAL 12/31/18 09:00 01/30/19 08:59 01/05/19 09:04 Gemfibrozil (Lopid) 600 mg TWICE A DAY GT 12/28/18 09:00 01/14/19 10:14 01/05/19 17:28 Heparin Sodium (Porcine) (Heparin 5000 units/ml) 5,000 units EVERY 12 HOURS SUBQ 12/28/18 09:00 01/06/19 20:59 01/05/19 20:15 Insulin Aspart (NovoLOG) EVERY 6 HOURS SUBQ 01/01/19 06:00 01/31/19 05:59 01/06/19 05:24 Insulin Detemir (Levemir) 20 units Q12HR SUBQ 01/02/19 21:00 01/27/19 13:59 01/05/19 20:16 Lansoprazole (Prevacid) 30 mg BID GT 12/28/18 09:00 01/16/19 08:59 01/05/19 17:27 Nateglinide (Starlix) 120 mg Q8HR ORAL 12/28/18 06:00 01/17/19 21:59 01/06/19 05:22 Nitroglycerin (Ntg) 0.4 mg Q5M PRN SL Prn Chest Pain 12/28/18 04:50 01/06/19 16:59 Ondansetron HCl (Zofran) 4 mg Q6H PRN IVP Nausea & Vomiting 12/28/18 05:00 01/06/19 16:59 01/01/19 13:49 Polyethylene Glycol (Miralax) 17 gm DAILYPRN PRN GT Constipation 12/28/18 09:45 01/06/19 16:59 Chico Allen MD Jan 06, 2019 07:36
[2019-01-06 08:00] VITALS: BP 95/58
--- NOTE | 2019-01-06 08:00 | Urology Progress Note ---
Assessment/Plan Assessment/Plan 1. Urinary retention with chronic suprapubic tube. 2. Probable neurogenic bladder. 3. UTI colonization. 4. Hematuria. 5. Proteinuria. 6. Cystitis. 7. Renal cyst versus small mass. 8. Scrotal edema. 9. Hydrocele. new SP tube placed 4/ hand irrigate PRN abx as ordered serial renal imaging Subjective Allergies: Coded Allergies: PENICILLINS (Unverified Allergy, Unknown, 02/26/16) POLYMYXIN B (Unverified Allergy, Unknown, 02/26/16) VANCOMYCIN (Unverified Allergy, Unknown, 02/26/16) Subjective all noted, new sp tube draining ok, mild leakage Objective Last 24 Hour Vital Signs Date Time Temp Pulse Resp B/P (MAP) Pulse Ox O2 Delivery O2 Flow Rate FiO2 01/06/19 07:28 118 24 30 01/06/19 05:14 116 28 30 01/06/19 04:00 Mechanical Ventilator 01/06/19 04:00 30 01/06/19 04:00 99.1 116 24 109/64 (79) 98 01/06/19 03:40 115 01/06/19 03:27 112 25 30 01/06/19 01:24 117 27 30 01/06/19 00:00 99.0 117 24 104/71 (82) 100 01/06/19 00:00 Mechanical Ventilator 01/05/19 23:36 118 01/05/19 23:14 120 25 30 01/05/19 21:34 121 27 30 01/05/19 20:00 Mechanical Ventilator 01/05/19 20:00 30 01/05/19 20:00 99.7 125 28 106/66 (79) 100 01/05/19 19:17 123 28 30 01/05/19 19:04 125 01/05/19 16:30 123 23 30 01/05/19 16:00 117 01/05/19 16:00 Mechanical Ventilator 01/05/19 16:00 30 01/05/19 16:00 98.4 119 23 124/80 (95) 96 01/05/19 14:44 119 26 30 01/05/19 13:04 120 23 30 01/05/19 12:00 99.5 117 23 117/87 (97) 98 01/05/19 12:00 30 01/05/19 12:00 Mechanical Ventilator 01/05/19 12:00 109 01/05/19 10:53 104 23 30 01/05/19 08:55 105 21 30 01/05/19 08:00 98.9 108 23 92/62 (72) 99 01/05/19 08:00 30 01/05/19 08:00 Mechanical Ventilator Intake and Output 01/05/19 01/06/19 18:59 06:59 Intake Total 840 ml 990 ml Output Total 700 ml 900 ml Balance 140 ml 90 ml Intake Free Water 300 ml 450 ml Tube Feeding 540 ml 540 ml Output Urine Total 700 ml 600 ml Stool Total 300 ml Microbiology Date/Time Source Procedure Growth Status 12/30/18 17:50 Blood Blood Culture - Final NO GROWTH AFTER 5 DAYS Complete 12/28/18 04:30 Other(Specify in comment) Catheter Tip Culture - Final NO GROWTH AFTER 4 DAYS Complete 12/20/18 13:00 Sputum Induced Gram Stain - Final Complete 12/20/18 13:00 Sputum Culture - Final Staphylococcus Aureus - Mrsa Usual Respiratory Shelly Complete 12/30/18 17:37 Stool Clostridium difficile Toxin Assay - Final Complete 12/26/18 04:00 Urine,Clean Catch Urine Culture - Final Meera Albicans Complete 12/30/18 17:37 Sacral Wound Gram Stain - Final Complete 12/30/18 17:37 Wound Culture - Final K.pneumoniae Carbapenem Resist Escherichia Coli - Esbl Proteus Mirabilis Complete Current Medications Medications (Trade) Dose Ordered Sig/Fransisco Route PRN Reason Start Time Stop Time Status Last Admin Dose Admin Acetaminophen (Tylenol) 650 mg Q4H PRN GT For Pain 12/28/18 05:00 01/06/19 16:59 Amikacin Protocol (Amikacin pharmacy to dose) 1 ea DAILY PRN MISC Per rx protocol 01/03/19 16:30 02/02/19 16:29 Amikacin Sulfate 1000 mg/Sodium Chloride 114 ml @ 228 mls/hr Q36H IV 01/05/19 06:00 01/12/19 05:59 01/05/19 05:30 Aztreonam 2 gm/ Dextrose 110 ml @ 220 mls/hr Q8H IVPB 01/02/19 16:00 01/09/19 15:59 01/05/19 23:53 Calcitonin [place] (Miacalcin) 1 sprays DAILY NASAL 12/28/18 09:00 01/24/19 10:59 01/05/19 09:04 Chlorhexidine Gluconate (Sandra-Hex 2%) 1 applic DAILY@2000 TOPIC 12/28/18 20:00 01/09/19 19:59 01/05/19 20:14 Dextrose (Dextrose 50%) 25 ml Q30M PRN IV Hypoglycemia 01/01/19 00:15 01/31/19 00:14 Dextrose (Dextrose 50%) 50 ml Q30M PRN IV Hypoglycemia 01/01/19 00:15 01/31/19 00:14 Diltiazem HCl (Cardizem) 10 mg BIDPRN PRN IVP FOR HR >140 12/28/18 08:45 01/11/19 08:44 Fenofibrate (Tricor) 145 mg DAILY ORAL 12/31/18 09:00 01/30/19 08:59 01/05/19 09:04 Gemfibrozil (Lopid) 600 mg TWICE A DAY GT 12/28/18 09:00 01/14/19 10:14 01/05/19 17:28 Heparin Sodium (Porcine) (Heparin 5000 units/ml) 5,000 units EVERY 12 HOURS SUBQ 12/28/18 09:00 01/06/19 20:59 01/05/19 20:15 Insulin Aspart (NovoLOG) EVERY 6 HOURS SUBQ 01/01/19 06:00 01/31/19 05:59 01/06/19 05:24 Insulin Detemir (Levemir) 20 units Q12HR SUBQ 01/02/19 21:00 01/27/19 13:59 01/05/19 20:16 Lansoprazole (Prevacid) 30 mg BID GT 12/28/18 09:00 01/16/19 08:59 01/05/19 17:27 Nateglinide (Starlix) 120 mg Q8HR ORAL 12/28/18 06:00 01/17/19 21:59 01/06/19 05:22 Nitroglycerin (Ntg) 0.4 mg Q5M PRN SL Prn Chest Pain 12/28/18 04:50 01/06/19 16:59 Ondansetron HCl (Zofran) 4 mg Q6H PRN IVP Nausea & Vomiting 12/28/18 05:00 01/06/19 16:59 01/01/19 13:49 Polyethylene Glycol (Miralax) 17 gm DAILYPRN PRN GT Constipation 12/28/18 09:45 01/06/19 16:59 Laboratory Tests 01/05/19 23:40: White Blood Count 12.6H, Red Blood Count 2.72L, Hemoglobin 8.5L, Hematocrit 24.9L, Mean Corpuscular Volume 91, Mean Corpuscular Hemoglobin 31.1H, Mean Corpuscular Hemoglobin Concent 34.1, Red Cell Distribution Width 16.4H, Platelet Count 250, Mean Platelet Volume 8.8, Neutrophils (%) (Auto) 79.6H, Lymphocytes (%) (Auto) 10.5L, Monocytes (%) (Auto) 6.0, Eosinophils (%) (Auto) 2.1, Basophils (%) (Auto) 1.7, Sodium Level 133L, Potassium Level 5.4H, Chloride Level 103, Carbon Dioxide Level 22, Anion Gap 8, Blood Urea Nitrogen 36H, Creatinine 0.8, Estimat Glomerular Filtration Rate , Glucose Level 191H, Calcium Level 8.1L 01/06/19 03:40: White Blood Count 11.0H, Red Blood Count 2.78L, Hemoglobin 8.3L, Hematocrit 25.8L, Mean Corpuscular Volume 93, Mean Corpuscular Hemoglobin 29.9, Mean Corpuscular Hemoglobin Concent 32.3, Red Cell Distribution Width 16.2H, Platelet Count 234, Mean Platelet Volume 8.4, Neutrophils (%) (Auto) 75.3H, Lymphocytes (%) (Auto) 11.6L, Monocytes (%) (Auto) 8.3, Eosinophils (%) (Auto) 3.3H, Basophils (%) (Auto) 1.5, Sodium Level 134L, Potassium Level 5.4H, Chloride Level 102, Carbon Dioxide Level 21, Anion Gap 11, Blood Urea Nitrogen 37H, Creatinine 0.8, Estimat Glomerular Filtration Rate , Glucose Level 162H, Calcium Level 8.5 Height (Feet): 5 Height (Inches): 8.00 Weight (Pounds): 140 Objective exam stable, urine yellow with debris Nadershad,Ramez Juarez MD Jan 06, 2019 08:00
[2019-01-06] MEDS: Aztreonam Inj 2 GM in D5W 110 ML IVPB SCH ×3 (08:44→23:20)
[2019-01-06] MEDS: Heparin 5000 units/ml inj SUBQ SCH (08:45)
[2019-01-06] MEDS: Levemir Flexpen SUBQ SCH ×2 (08:49→20:06)
--- NOTE | 2019-01-06 10:41 | Nephrology Progress Note ---
Assessment/Plan Problem List: (1) Hypercalcemia (2) ATN (acute tubular necrosis) (3) Anemia (4) Feeding by G-tube (5) Acute and chronic respiratory failure (6) UTI (urinary tract infection) (7) Hyponatremia Assessment in [facility] - Glucose better controlled Periodic high K Patient have mainly Pre Renal Azotemia with possible underlying CKD- Low Na partly depletional, partly due to Hyperglycemia RESOLVED Other conditions as outlined: (1) Acute and chronic respiratory failure ([id number]) (2) Sepsis (3) Malnutrition and HypoAlbuminemia (4) UTI (urinary tract infection) (5) Anemia (6) Diabetes mellitus, type II (7) Colostomy care (8) Cerebral vascular disease (9) Decubitus ulcer of sacral region, stage 2 (10) Feeding by G-tube (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 Plan K & Phos supplement as needed Levemir and adjust dose Kayexelate for high K as needed Stop Digoxin stop Atenolol Stop Cardiazem Pressors as needed Albumin bolus as needed AREDIA 90 mg for HYPERCALCEMIA on 12/23 - Calcium level will redose On Starlix feeding to glucerna Keep electrolytes in check Keep BS and BP in check per consultants Subjective ROS Limited/Unobtainable: Yes Objective Objective Last 24 Hour Vital Signs Date Time Temp Pulse Resp B/P (MAP) Pulse Ox O2 Delivery O2 Flow Rate FiO2 01/06/19 09:07 117 27 30 01/06/19 08:00 Mechanical Ventilator 01/06/19 08:00 30 01/06/19 08:00 98.2 119 24 95/58 (70) 97 01/06/19 07:28 118 24 30 01/06/19 05:14 116 28 30 01/06/19 04:00 Mechanical Ventilator 01/06/19 04:00 30 01/06/19 04:00 99.1 116 24 109/64 (79) 98 01/06/19 03:40 115 01/06/19 03:27 112 25 30 01/06/19 01:24 117 27 30 01/06/19 00:00 99.0 117 24 104/71 (82) 100 01/06/19 00:00 Mechanical Ventilator 01/05/19 23:36 118 01/05/19 23:14 120 25 30 01/05/19 21:34 121 27 30 4/4/19 20:00 Mechanical Ventilator 01/05/19 20:00 30 01/05/19 20:00 99.7 125 28 106/66 (79) 100 01/05/19 19:17 123 28 30 01/05/19 19:04 125 01/05/19 16:30 123 23 30 01/05/19 16:00 117 01/05/19 16:00 Mechanical Ventilator 01/05/19 16:00 30 01/05/19 16:00 98.4 119 23 124/80 (95) 96 01/05/19 14:44 119 26 30 01/05/19 13:04 120 23 30 01/05/19 12:00 99.5 117 23 117/87 (97) 98 01/05/19 12:00 30 01/05/19 12:00 Mechanical Ventilator 01/05/19 12:00 109 01/05/19 10:53 104 23 30 Intake and Output 01/05/19 01/06/19 18:59 06:59 Intake Total 840 ml 990 ml Output Total 700 ml 900 ml Balance 140 ml 90 ml Intake Free Water 300 ml 450 ml Tube Feeding 540 ml 540 ml Output Urine Total 700 ml 600 ml Stool Total 300 ml Laboratory Tests 01/05/19 23:40: White Blood Count 12.6H, Red Blood Count 2.72L, Hemoglobin 8.5L, Hematocrit 24.9L, Mean Corpuscular Volume 91, Mean Corpuscular Hemoglobin 31.1H, Mean Corpuscular Hemoglobin Concent 34.1, Red Cell Distribution Width 16.4H, Platelet Count 250, Mean Platelet Volume 8.8, Neutrophils (%) (Auto) 79.6H, Lymphocytes (%) (Auto) 10.5L, Monocytes (%) (Auto) 6.0, Eosinophils (%) (Auto) 2.1, Basophils (%) (Auto) 1.7, Sodium Level 133L, Potassium Level 5.4H, Chloride Level 103, Carbon Dioxide Level 22, Anion Gap 8, Blood Urea Nitrogen 36H, Creatinine 0.8, Estimat Glomerular Filtration Rate , Glucose Level 191H, Calcium Level 8.1L 01/06/19 03:40: White Blood Count 11.0H, Red Blood Count 2.78L, Hemoglobin 8.3L, Hematocrit 25.8L, Mean Corpuscular Volume 93, Mean Corpuscular Hemoglobin 29.9, Mean Corpuscular Hemoglobin Concent 32.3, Red Cell Distribution Width 16.2H, Platelet Count 234, Mean Platelet Volume 8.4, Neutrophils (%) (Auto) 75.3H, Lymphocytes (%) (Auto) 11.6L, Monocytes (%) (Auto) 8.3, Eosinophils (%) (Auto) 3.3H, Basophils (%) (Auto) 1.5, Sodium Level 134L, Potassium Level 5.4H, Chloride Level 102, Carbon Dioxide Level 21, Anion Gap 11, Blood Urea Nitrogen 37H, Creatinine 0.8, Estimat Glomerular Filtration Rate , Glucose Level 162H, Calcium Level 8.5 Height (Feet): 5 Height (Inches): 8.00 Weight (Pounds): 140 General Appearance: no apparent distress Respiratory/Chest: decreased breath sounds Abdomen: distended Objective no change Migue Moreland MD Jan 06, 2019 10:41
[2019-01-06] MEDS ORDERED: Sodium Polystyrene Sulfonate 15gm Powder ORAL SCH (10:45)
--- NOTE | 2019-01-06 11:02 | Diagnostic Imaging Report ---
Indication: Dyspnea Technique: One view of the chest Comparison: 01/02/2019 Findings: Tracheostomy is again demonstrated. Chronic appearing interstitial disease is again noted, probably on the right abdominal and the right apex. Blunting of the bilateral costophrenic angles persists. No significant interim change Impression: Unchanged, over 4 days, findings as above.
--- NOTE | 2019-01-06 11:09 | NUR ---
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 A/C RESP FAILURE. VS: BP 92/68, P 109, T 97.9, RR 29, SpO2 99 on VENT AC 18, TV 500, PEEP 5.0, FiO2 30 WBC 11.0, RBC 2.78, Hgb 8.3, Hct 25.8, Na 134, K 5.4, BUN 37 CXR Findings: Tracheostomy is again demonstrated. Chronic appearing interstitial disease is again noted, probably on the right abdominal and the right apex. Blunting of the bilateral costophrenic angles persists. No significant interim change. IS:STARLIX 120mg GT PREVACID 30mg GT LOPID 600mg GT MIACALCIN 1Spray Nasal TRICOR 145mg NOVOLOG SUBQ AZTREONAM/D5 220ml IVPB LEVEMIR SUBQ AMIKIN 114ml IV SDU STATUS
--- NOTE | 2019-01-06 11:21 | Surgery Progress Note ---
Surgery Progress Note Subjective Additional Comments Leukocytosis trending down, tachycardic, potassium elevated, chest x-ray stable , exam unchanged. Objective Last 24 Hour Vital Signs Date Time Temp Pulse Resp B/P (MAP) Pulse Ox O2 Delivery O2 Flow Rate FiO2 01/06/19 10:46 115 29 30 01/06/19 09:07 117 27 30 01/06/19 08:00 Mechanical Ventilator 01/06/19 08:00 30 01/06/19 08:00 98.2 119 24 95/58 (70) 97 01/06/19 07:28 118 24 30 01/06/19 05:14 116 28 30 01/06/19 04:00 Mechanical Ventilator 01/06/19 04:00 30 01/06/19 04:00 99.1 116 24 109/64 (79) 98 01/06/19 03:40 115 01/06/19 03:27 112 25 30 01/06/19 01:24 117 27 30 01/06/19 00:00 99.0 117 24 104/71 (82) 100 01/06/19 00:00 Mechanical Ventilator 01/05/19 23:36 118 01/05/19 23:14 120 25 30 01/05/19 21:34 121 27 30 01/05/19 20:00 Mechanical Ventilator 01/05/19 20:00 30 01/05/19 20:00 99.7 125 28 106/66 (79) 100 01/05/19 19:17 123 28 30 01/05/19 19:04 125 01/05/19 16:30 123 23 30 01/05/19 16:00 117 01/05/19 16:00 Mechanical Ventilator 01/05/19 16:00 30 01/05/19 16:00 98.4 119 23 124/80 (95) 96 01/05/19 14:44 119 26 30 01/05/19 13:04 120 23 30 01/05/19 12:00 99.5 117 23 117/87 (97) 98 01/05/19 12:00 30 01/05/19 12:00 Mechanical Ventilator 01/05/19 12:00 109 I&O Intake and Output 01/05/19 01/06/19 18:59 06:59 Intake Total 840 ml 990 ml Output Total 700 ml 900 ml Balance 140 ml 90 ml Intake Free Water 300 ml 450 ml Tube Feeding 540 ml 540 ml Output Urine Total 700 ml 600 ml Stool Total 300 ml Dressing: saturated Wound: other Drains: other Cardiovascular: other Respiratory: decreased breath sounds Abdomen: soft, present bowel sounds, non-distended Extremities: no tenderness, no cyanosis Laboratory Tests Test 01/05/19 23:40 01/06/19 03:40 White Blood Count 12.6 K/UL (4.8-10.8) H 11.0 K/UL (4.8-10.8) H Red Blood Count 2.72 M/UL (4.70-6.10) L 2.78 M/UL (4.70-6.10) L Hemoglobin 8.5 G/DL (14.2-18.0) L 8.3 G/DL (14.2-18.0) L Hematocrit 24.9 % (42.0-52.0) L 25.8 % (42.0-52.0) L Mean Corpuscular Volume 91 FL (80-99) 93 FL (80-99) Mean Corpuscular Hemoglobin 31.1 PG (27.0-31.0) H 29.9 PG (27.0-31.0) Mean Corpuscular Hemoglobin Concent 34.1 G/DL (32.0-36.0) 32.3 G/DL (32.0-36.0) Red Cell Distribution Width 16.4 % (11.6-14.8) H 16.2 % (11.6-14.8) H Platelet Count 250 K/UL (150-450) 234 K/UL (150-450) Mean Platelet Volume 8.8 FL (6.5-10.1) 8.4 FL (6.5-10.1) Neutrophils (%) (Auto) 79.6 % (45.0-75.0) H 75.3 % (45.0-75.0) H Lymphocytes (%) (Auto) 10.5 % (20.0-45.0) L 11.6 % (20.0-45.0) L Monocytes (%) (Auto) 6.0 % (1.0-10.0) 8.3 % (1.0-10.0) Eosinophils (%) (Auto) 2.1 % (0.0-3.0) 3.3 % (0.0-3.0) H Basophils (%) (Auto) 1.7 % (0.0-2.0) 1.5 % (0.0-2.0) Sodium Level 133 MMOL/L (136-145) L 134 MMOL/L (136-145) L Potassium Level 5.4 MMOL/L (3.5-5.1) H 5.4 MMOL/L (3.5-5.1) H Chloride Level 103 MMOL/L (98-107) 102 MMOL/L (98-107) Carbon Dioxide Level 22 MMOL/L (21-32) 21 MMOL/L (21-32) Anion Gap 8 mmol/L (5-15) 11 mmol/L (5-15) Blood Urea Nitrogen 36 mg/dL (7-18) H 37 mg/dL (7-18) H Creatinine 0.8 MG/DL (0.55-1.30) 0.8 MG/DL (0.55-1.30) Estimat Glomerular Filtration Rate mL/min (>60) mL/min (>60) Glucose Level 191 MG/DL (74-106) H 162 MG/DL (74-106) H Calcium Level 8.1 MG/DL (8.5-10.1) L 8.5 MG/DL (8.5-10.1) Plan Problems: (1) Decubitus skin ulcer Assessment & Plan: Pt presented on admission with multiple pressure injuries and Skin erosion. Pt has trach and no evidence of skin breakdown noted under trach collar. Unstageable pressure injury noted to L earlobe. Stable dry brown eschar noted(L) 0.7cm x (W)0.5cm. Gross erythema with denudement and multiple scattered partial thickness wounds noted to buttocks and base of scrotum extending into both posterior upper thighs.Moderate amt sanguineous exudate noted upon removal of drsgs. 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 Moderate amt sanguineous exudate noted (L)3cm x (W)1cm x (D)7.4cm.Erythema periwound secondary to skin erosions. Partially opened DTPI L ischium .Base of wound purple,fluctuant with red borders.Open areas at base of this wound are beefy red in colour.Moderate amt sanguineous exudate noted.(L)7cm x (W)6.8cm. DTPI R ischium.Wound is fluctuant-purple in center with surrounding Maroon colour, and is partially opened with a small area of 5% that is necrotic.(L) 6.5cm x (W)5.5cm. Red skin erosion periwound. Partial thickness pressure injury L hip. Base of wound is moist -viable. Edges adherent and dry. Periwound without erythema or induration(L)1.2cm x (W)0.5cm. Elongate partial thickness wound posterior upper L thigh .Base of wound is moist -viable .Small amt sanguineous exudate noted. (+) maceration along borders. Erythema without induration or elevation in skin temp noted.(L)2cm x (W )9.4cm. DTPI noted to R heel .Base of injury is indurated and maroon in colour. Periwound is firm without erythema. (L)1.5cm x (W)1cm.R heel without evidence of skin breakdown. UPDATE with Full thickness pressure injury sacrum resolving. Less depth noted to tunnel, but base of wound obscured due to size and shape of wound (L)2cm x (W )0.9cm with tunneling at 12 by 3cm. Full thickness wound R ischium with 60% loose soft necrosis. 40% slough with additional necrosis along edges and periwound .No odor noted. (L)6cm x (W)6.3cm x (D)3.2cm undermining 9-12 by 3.1cm @11O'Clock. MASD with Gross erythema with skin erosion entire buttocks extending down into both ischial and both upper thighs including scrotum and bilat groin areas. Scattered satellite lesions with small amt bleeding from these areas. Small area of dry eschar noted to L buttocks (L)1.9cm x (W)2cm. Reabsorbed DTPI with stable dry brown eschar R heel (L)1.5cm x (W)2.5cm Periwound without erythema ,induration or fluctuance. Small dry scab noted to L ear without erythema periwound. No new skin concerns noted. Tx.Plan: Cleanse Sacrum with Saline. Loosely pack with Hydrogel impregnated Kerlix. Apply Triad Paste periwound. Cover with ABD pad. Daily and prn. Cleanse R and L ischial wounds with Saline. Apply Moisture Barrier Paste.Cover with abd pads Daily and prn. Apply Moisture Barrier to skin erosions on buttocks,scrotum, and posterior aspects of both thighs.Cover with ABD pad daily and prn. Cleanse wound L hip with Saline. Apply Moisture Barrier paste .Cover with Optifoam drsg Daily and prn. Cleanse wound posterior upper L thigh with saline .Apply Hydrogel. Cover with Optifoam drsg Daily and prn. Apply Cavilon Skin Barrier to L earlobe daily. Please monitor. Apply Cavilon Skin Barrier to L heel. Cover with Optifoam drsg. Change every 7 days and prn. Apply Cavilon Skin Barrier to R heel. Cover with Optifoam drsg .Change every 7 days and prn. Air fluidized mattress. Reposition every 2hours or as tolerated. Off-load heels with pillow. (2) Acute and chronic respiratory failure Assessment & Plan: cont with breathing treatments trach stable trach site clean will change dressings daily (3) Acute pancreatitis Assessment & Plan: Findings consistent with uncomplicated nonnecrotizing acute pancreatitis. No evidence of associated peripancreatic abscess Surgical changes as described, including right lower quadrant ileostomy, subtotal colectomy with Haroldo procedure. Wall thickening of the Haroldo pouch. This could indicate inflammation. However, this is also present on both of the prior 2 exams and may be baseline for this patient Evidence of mild anasarca, with edema of the subcutaneous fat. This is a new finding Chronic appearing decubitus changes of the bilateral ischia. Correlate with clinical findings Complete left lower lobe consolidation. This is similar to both of the prior CTs , and is likely a chronic finding. There is progressive chronic interstitial fibrotic change involving the right middle lobe. There is also right lower lobe granulomatous calcification Extensive pulmonary parenchymal opacities bilaterally may reflect acute inflammation/infection, edema, progressive chronic scarring, or combination of the above. These are considerably more extensive than on the prior study Trace bilateral pleural fluid New finding of nonobstructive right renal collecting system calculs 4 mm calculus within the bladder lumen. This may represent a bladder calculus, a calculus and left ureteral orifice, or recently passed stone. If either of the latter, no evidence of resultant hydronephrosis or hydroureter Suprapubic catheter. This is a new finding since the 2016 exams. Interim removal of previously demonstrated Bledsoe catheter Gastrostomy Left renal cysts. Subcentimeter low-attenuation right renal lesions, too small to characterize, most likely benign simple cysts. No further follow-up necessary elevated amylase/lipase related to lipids leukocytosis GNR Bacteremia transfused anemia Unfortunately patient not able to participate in exam and difficult to identify if clinically pancreatitis or just laboratory data. Recent CT with uncomplicated pancreatitis but enzymes still remain elevated. Patient tolerated tube feeds. Patient with gram-negative belle bacteremia likely from UTI. Patient remains febrile intermittently with worsening leukocytosis on IV antibiotics. -no acute surgical intervention planned -transfuse as per hematology -Abx as per ID -trend lip/[place] - recent finding based on CT given patient cannot given history or participate in exam. CT with uncomplicated pancreatitis. okay for diet / feeds for now. IV fluids Javier Ricardo Jan 06, 2019 11:21
--- NOTE | 2019-01-06 11:33 | General Progress Note ---
Assessment/Plan Problem List: (1) Tracheostomy in place ICD Codes: Z98.89 - Other specified postprocedural states SNOMED: 973160304 (2) Acute and chronic respiratory failure ICD Codes: J96.20 - Acute and chronic respiratory failure, unspecified whether with hypoxia or hypercapnia SNOMED: 89205907, 91692314 (3) Decubitus ulcer of sacral region, stage 2 ICD Codes: L89.152 - Pressure ulcer of sacral region, stage 2 SNOMED: 116800243, 982021891 (4) Cerebral vascular disease ICD Codes: I67.9 - Cerebrovascular disease, unspecified SNOMED: 54282960 (5) Colostomy care ICD Codes: Z43.3 - Encounter for attention to colostomy SNOMED: 292457205 (6) Hypertension ICD Codes: I10 - Essential (primary) hypertension SNOMED: 90888159 (7) Diabetes mellitus, type II ICD Codes: E11.9 - Type 2 diabetes mellitus without complications SNOMED: 61905691 (8) Feeding by G-tube ICD Codes: Z93.1 - Gastrostomy status SNOMED: 775130582, 628587889 (9) Anemia ICD Codes: D64.9 - Anemia, unspecified SNOMED: 139698145 (10) Pancreatitis ICD Codes: K85.90 - Acute pancreatitis without necrosis or infection, unspecified SNOMED: 30536266 Assessment/Plan Occult blood stool positive >>1/3>>> repeat stool ob fu CBC Hepatitis panel negative Pancreatitis secondary to hypertriglyceridemia Elevated CA 19, mild Repeat lipid panel shows hypertriglyceridemia TriCor and lopid Stable H&H - PRN transfusions ppi daily GTFs per RD repeat lipase Supportive care Subjective ROS Limited/Unobtainable: No Allergies: Coded Allergies: PENICILLINS (Unverified Allergy, Unknown, 02/26/16) POLYMYXIN B (Unverified Allergy, Unknown, 02/26/16) VANCOMYCIN (Unverified Allergy, Unknown, 02/26/16) Objective Last 24 Hour Vital Signs Date Time Temp Pulse Resp B/P (MAP) Pulse Ox O2 Delivery O2 Flow Rate FiO2 01/06/19 10:46 115 29 30 01/06/19 09:07 117 27 30 01/06/19 08:00 Mechanical Ventilator 01/06/19 08:00 30 01/06/19 08:00 98.2 119 24 95/58 (70) 97 01/06/19 07:28 118 24 30 01/06/19 05:14 116 28 30 01/06/19 04:00 Mechanical Ventilator 01/06/19 04:00 30 01/06/19 04:00 99.1 116 24 109/64 (79) 98 01/06/19 03:40 115 01/06/19 03:27 112 25 30 01/06/19 01:24 117 27 30 01/06/19 00:00 99.0 117 24 104/71 (82) 100 01/06/19 00:00 Mechanical Ventilator 01/05/19 23:36 118 01/05/19 23:14 120 25 30 01/05/19 21:34 121 27 30 01/05/19 20:00 Mechanical Ventilator 01/05/19 20:00 30 01/05/19 20:00 99.7 125 28 106/66 (79) 100 01/05/19 19:17 123 28 30 01/05/19 19:04 125 01/05/19 16:30 123 23 30 01/05/19 16:00 117 01/05/19 16:00 Mechanical Ventilator 01/05/19 16:00 30 01/05/19 16:00 98.4 119 23 124/80 (95) 96 01/05/19 14:44 119 26 30 01/05/19 13:04 120 23 30 01/05/19 12:00 99.5 117 23 117/87 (97) 98 01/05/19 12:00 30 01/05/19 12:00 Mechanical Ventilator 01/05/19 12:00 109 Intake and Output 01/05/19 01/06/19 18:59 06:59 Intake Total 840 ml 990 ml Output Total 700 ml 900 ml Balance 140 ml 90 ml Intake Free Water 300 ml 450 ml Tube Feeding 540 ml 540 ml Output Urine Total 700 ml 600 ml Stool Total 300 ml Laboratory Tests 01/05/19 23:40: White Blood Count 12.6H, Red Blood Count 2.72L, Hemoglobin 8.5L, Hematocrit 24.9L, Mean Corpuscular Volume 91, Mean Corpuscular Hemoglobin 31.1H, Mean Corpuscular Hemoglobin Concent 34.1, Red Cell Distribution Width 16.4H, Platelet Count 250, Mean Platelet Volume 8.8, Neutrophils (%) (Auto) 79.6H, Lymphocytes (%) (Auto) 10.5L, Monocytes (%) (Auto) 6.0, Eosinophils (%) (Auto) 2.1, Basophils (%) (Auto) 1.7, Sodium Level 133L, Potassium Level 5.4H, Chloride Level 103, Carbon Dioxide Level 22, Anion Gap 8, Blood Urea Nitrogen 36H, Creatinine 0.8, Estimat Glomerular Filtration Rate , Glucose Level 191H, Calcium Level 8.1L 01/06/19 03:40: White Blood Count 11.0H, Red Blood Count 2.78L, Hemoglobin 8.3L, Hematocrit 25.8L, Mean Corpuscular Volume 93, Mean Corpuscular Hemoglobin 29.9, Mean Corpuscular Hemoglobin Concent 32.3, Red Cell Distribution Width 16.2H, Platelet Count 234, Mean Platelet Volume 8.4, Neutrophils (%) (Auto) 75.3H, Lymphocytes (%) (Auto) 11.6L, Monocytes (%) (Auto) 8.3, Eosinophils (%) (Auto) 3.3H, Basophils (%) (Auto) 1.5, Sodium Level 134L, Potassium Level 5.4H, Chloride Level 102, Carbon Dioxide Level 21, Anion Gap 11, Blood Urea Nitrogen 37H, Creatinine 0.8, Estimat Glomerular Filtration Rate , Glucose Level 162H, Calcium Level 8.5 Height (Feet): 5 Height (Inches): 8.00 Weight (Pounds): 140 General Appearance: no apparent distress EENT: normal ENT inspection Neck: supple Cardiovascular: normal rate Respiratory/Chest: decreased breath sounds Abdomen: normal bowel sounds, non tender, soft Extremities: non-tender Benjamin Jackson MD Jan 06, 2019 11:33
[2019-01-06 12:00] VITALS: BP 98/60
--- NOTE | 2019-01-06 12:28 | NUR ---
RADIOLOGY DEPT., CHEST X-RAY DONE.-P.DYE
--- NOTE | 2019-01-06 13:33 | NUR ---
NURSE NOTES:WOUND CARE FOLLOW-UP NOTES:Primary nurse assisted with Pt's wound care. Skin Erosions buttocks and scrotum resolving, less bleeding from satellite lesions noted today.During cleansing of buttocks gentle removal of soiled lose paste so as not to disrupt any fragile areas and reapplication of Triad paste applied liberally to entire buttocks and scrotum for protection. Adhesive denudement across lumbar area resolved. skin is dry and pink. Sacral ulcer cleansed with saline and loosely packed with Therahoney impregnated kerlix -less depth noted to sacral wound. R ischial wound beefy red with undermining .Approx 5% dry eschar that is adherent to edge of wound. Small amt sanguineus exudate noted. Wound cleansed with Saline. Loosely packed with Therahoney impregnated Kerlix. Bilat groin areas and suprapubic area red. Triad paste applied L ear eschar partially de-roofed. Approx 20% dry eschar noted. Trace amt Biofilm at base of wound otherwise wound is viable. No odor or exudate noted.
[2019-01-06 16:00] VITALS: BP 92/68
--- NOTE | 2019-01-06 16:04 | Pulmonolgy Critical Care Note ---
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 Respiratory: monitor respiratory rate, adjust FIO2, CXR Cardiac: continue pressors, continue to monitor HR/BP Renal: F/U I&O, keep IV fluid, check electrolytes Infectious Disease: continue antibiotics Gastrointestinal: continue feedings/current rate Endocrine: monitor blood sugar Hematologic: monitor H/H, transfuse if hgb<8.5 Neurologic: PRN Morphine, keep patient comfortable Affect: PRN ativan Prophylaxis: Heparin Notes Reviewed: mobile practice lead Discussed with: nurses, consultants, [employer] manager - Objective Last 24 Hour Vital Signs Date Time Temp Pulse Resp B/P (MAP) Pulse Ox O2 Delivery O2 Flow Rate FiO2 01/06/19 15:24 109 29 30 01/06/19 12:48 110 28 Mechanical Ventilator 30 01/06/19 12:46 109 25 30 01/06/19 12:00 97.9 112 24 98/60 (73) 98 01/06/19 12:00 Mechanical Ventilator 01/06/19 12:00 115 01/06/19 12:00 30 01/06/19 10:46 115 29 30 01/06/19 09:07 117 27 30 01/06/19 08:00 Mechanical Ventilator 01/06/19 08:00 30 01/06/19 08:00 98.2 119 24 95/58 (70) 97 01/06/19 07:47 121 01/06/19 07:28 118 24 30 01/06/19 05:14 116 28 30 01/06/19 04:00 Mechanical Ventilator 01/06/19 04:00 30 01/06/19 04:00 99.1 116 24 109/64 (79) 98 01/06/19 03:40 115 01/06/19 03:27 112 25 30 01/06/19 01:24 117 27 30 01/06/19 00:00 99.0 117 24 104/71 (82) 100 01/06/19 00:00 Mechanical Ventilator 01/05/19 23:36 118 01/05/19 23:14 120 25 30 01/05/19 21:34 121 27 30 01/05/19 20:00 Mechanical Ventilator 01/05/19 20:00 30 01/05/19 20:00 99.7 125 28 106/66 (79) 100 01/05/19 19:17 123 28 30 01/05/19 19:04 125 01/05/19 16:30 123 23 30 Status: awake Condition: critical Neck: full ROM Lungs: clear Heart: HR/BP stable, HR/BP unstable Abdomen: non-tender, feeding tube Extremities: edema Decubiti: location Accucheck: 190 Critical Care - Subjective ROS Limited/Unobtainable: No Condition: critical EKG Rhythm: Sinus Rhythm FI02: 30 Vent Support Breath Rate: 18 Vent Support Mode: AC Vent Tidal Volume: 500 Sputum Amount: Scant PEEP: 5.0 PIP: 29 Tube Feeding Amount: 45 I&O: Intake and Output 01/05/19 01/06/19 19:00 07:00 Intake Total 840 ml 990 ml Output Total 700 ml 900 ml Balance 140 ml 90 ml Intake Free Water 300 ml 450 ml Tube Feeding 540 ml 540 ml Output Urine Total 700 ml 600 ml Stool Total 300 ml Labs: Laboratory Tests Test 01/05/19 23:40 01/06/19 03:40 01/06/19 14:40 White Blood Count 12.6 K/UL (4.8-10.8) H 11.0 K/UL (4.8-10.8) H Red Blood Count 2.72 M/UL (4.70-6.10) L 2.78 M/UL (4.70-6.10) L Hemoglobin 8.5 G/DL (14.2-18.0) L 8.3 G/DL (14.2-18.0) L Hematocrit 24.9 % (42.0-52.0) L 25.8 % (42.0-52.0) L Mean Corpuscular Volume 91 FL (80-99) 93 FL (80-99) Mean Corpuscular Hemoglobin 31.1 PG (27.0-31.0) H 29.9 PG (27.0-31.0) Mean Corpuscular Hemoglobin Concent 34.1 G/DL (32.0-36.0) 32.3 G/DL (32.0-36.0) Red Cell Distribution Width 16.4 % (11.6-14.8) H 16.2 % (11.6-14.8) H Platelet Count 250 K/UL (150-450) 234 K/UL (150-450) Mean Platelet Volume 8.8 FL (6.5-10.1) 8.4 FL (6.5-10.1) Neutrophils (%) (Auto) 79.6 % (45.0-75.0) H 75.3 % (45.0-75.0) H Lymphocytes (%) (Auto) 10.5 % (20.0-45.0) L 11.6 % (20.0-45.0) L Monocytes (%) (Auto) 6.0 % (1.0-10.0) 8.3 % (1.0-10.0) Eosinophils (%) (Auto) 2.1 % (0.0-3.0) 3.3 % (0.0-3.0) H Basophils (%) (Auto) 1.7 % (0.0-2.0) 1.5 % (0.0-2.0) Sodium Level 133 MMOL/L (136-145) L 134 MMOL/L (136-145) L Potassium Level 5.4 MMOL/L (3.5-5.1) H 5.4 MMOL/L (3.5-5.1) H Chloride Level 103 MMOL/L (98-107) 102 MMOL/L (98-107) Carbon Dioxide Level 22 MMOL/L (21-32) 21 MMOL/L (21-32) Anion Gap 8 mmol/L (5-15) 11 mmol/L (5-15) Blood Urea Nitrogen 36 mg/dL (7-18) H 37 mg/dL (7-18) H Creatinine 0.8 MG/DL (0.55-1.30) 0.8 MG/DL (0.55-1.30) Estimat Glomerular Filtration Rate mL/min (>60) mL/min (>60) Glucose Level 191 MG/DL (74-106) H 162 MG/DL (74-106) H Calcium Level 8.1 MG/DL (8.5-10.1) L 8.5 MG/DL (8.5-10.1) Stool Occult Blood Pending Abhishek Guerra MD Jan 06, 2019 16:04
--- NOTE | 2019-01-06 18:00 | General Progress Note ---
Assessment/Plan Assessment/Plan Assessment/Recs: # Leukocytosis/Elevated white blood cell count,potentially due to infection with gram negative bacteremia, with uti and on abx --> have reviewed peripheral smear and bandemia/neutrophilia noted on initial smear was noted --> continue antibiotics if they have been started by ID team, titrate and change as required --> monitor for resolution ---> WBC trend: 11-->16-->15-->14-->11-->12-->10.8-->11-->12-->11-->16-->14-->16 -->13-->13-->11 # Anemia of chronic disease due to underlying chronic medical issues, multifactorial --> Anemia workup has been reviewed, Ferritin 1573 --> No evidence of hemolysis is noted, peripheral smear reviewed --> Hgb goal >7. Transfuse prn. --> Epogen or iron at this time is not indicated --> Medications have been reviewed --> HGB trend: 7.8-->7.6-->6.2-->6.4->7.1-->8.7-->9.1-->8.4-->7.8-->9.4-->7.3--> 10.6-->10.1-->11-->9.3-->9.9-->9-->8 --> received prbc 12/25 # Thrombocytopenia - potential causes multifactorial, evaluate liver and viral etiologies to begin, also could be related to underlying medications --> Hep panel and HIV negative --> US abd to evaluate for cirrhosis and hsm reviewed --> Peripheral smear ordered to evaluate for blasts/schistocytes does not reveal any --> abx and other meds have been reviewed --> ok for ppx if plt >50k w/ either heparin or lovenox # Hypercalcemia potentailly related to dehydration --> s/p aredia as per renal --> pth reviewed --> trend Ca as needed # Severe prerenal azotemia, on ivf --> improve po oral intake and consider appetite stimulant # Severe Sepsis, CXR: Probable small left pleural effusion --> also evident on prior study 11/22/2017 --> appreciate ID recs # Bacteremia, likely from UTI, PNA --> tolerating abx well --> as per pulm # Decub ulceration --> as per surg The timing of this note does not necessarily reflect the time of the patient was seen. Greatly appreciate consultation! Subjective Constitutional: Denies: no symptoms, chills, diaphoresis, fever, malaise, weakness, other Cardiovascular: Denies: no symptoms, chest pain, edema, irregular heart rate, lightheadedness, palpitations, syncope, other Respiratory: Denies: no symptoms, cough, orthopnea, shortness of breath, SOB with excertion, SOB at rest, sputum, stridor, wheezing, other Gastrointestinal/Abdominal: Denies: no symptoms, abdomen distended, abdominal pain, black stools, tarry stools, blood in stool, constipated, diarrhea, difficulty swallowing, nausea, poor appetite, poor fluid intake, rectal bleeding , vomiting, other Genitourinary: Denies: no symptoms, burning, discharge, frequency, flank pain, hematuria, incontinence, pain, urgency, other Neurologic/Psychiatric: Denies: no symptoms, anxiety, depressed, emotional problems, headache, numbness, paresthesia, pre-existing deficit, seizure, tingling, tremors, weakness, other Endocrine: Denies: no symptoms, excessive sweating, flushing, intolerance to cold, intolerance to heat, increased hunger, increased thirst, increased urine, unexplained weight gain, unexplained weight loss, other Allergies: Coded Allergies: PENICILLINS (Unverified Allergy, Unknown, 02/26/16) POLYMYXIN B (Unverified Allergy, Unknown, 02/26/16) VANCOMYCIN (Unverified Allergy, Unknown, 02/26/16) Subjective 12/11: seen by bedside, vent dependent, leukocytosis, 11, hgb 7, will transfuse, no events 12/12: awake, comfortable wbc trending up at 16, no events 12/13: hgb 6.4, receiving transfusion, , wbc remains elevated. no acute events 12/14: seen by bedside, awake, comfortable low grade fever, wbc remains elevated at 15, bacteremia on IV Abx, hgb 7.1, will transfuse as needed 12/15: Wbc remains elevated, no events reported, hgb trending up 12/16: seen by bedside, awake, comfortable, no events 12/18: seen in the room, on vent and trach, no events 12/19: reviewed cbc and appears relatively stable, on starlix, remains in sdu 12/20: seen by bedside, on vent, mild leukocytosis 12/21: Pt is resting , on vent, wbc trending up , no events 12/22: exam is essentially unchanged, on abx, have discussed with pcp, rn, wbc better 12/23: transfuse wbc 11, on abx 12/24: no events to report, on vent/trach care, without issue 12/26: in icu, resting comfortanly, off pressors 12/27: tolerating feeding and vent well, no issues, ca reviewed 12/28: no events, remains nonverbal, without complaints 12/29: no events, on vent/trach, nonverbal, no fevers 12/30: no events, labs have been reviewed, cbc noted, wbc higher 01/01: no events, on abx, wbc better, hgb lower, with nausea, on zofran 01/02: less abdominal pain, on zofran on prn basis, no f/c 01/03: no events to report, trach to vent, labs reviewed, no complaints 01/04: wounds examined, is trach to vent, no major issues 01/05: monitoring cbc, no acute bleeding episodes, remains in the sdu 01/06: vent setting essentially unchanged, breathing normal, hgb 8.5 Objective Last 24 Hour Vital Signs Date Time Temp Pulse Resp B/P (MAP) Pulse Ox O2 Delivery O2 Flow Rate FiO2 01/06/19 16:54 107 22 30 01/06/19 16:00 107 01/06/19 15:24 109 29 30 01/06/19 12:48 110 28 Mechanical Ventilator 30 01/06/19 12:46 109 25 30 01/06/19 12:00 97.9 112 24 98/60 (73) 98 01/06/19 12:00 Mechanical Ventilator 01/06/19 12:00 115 01/06/19 12:00 30 01/06/19 10:46 115 29 30 01/06/19 09:07 117 27 30 01/06/19 08:00 Mechanical Ventilator 01/06/19 08:00 30 01/06/19 08:00 98.2 119 24 95/58 (70) 97 01/06/19 07:47 121 01/06/19 07:28 118 24 30 01/06/19 05:14 116 28 30 01/06/19 04:00 Mechanical Ventilator 01/06/19 04:00 30 01/06/19 04:00 99.1 116 24 109/64 (79) 98 01/06/19 03:40 115 01/06/19 03:27 112 25 30 01/06/19 01:24 117 27 30 01/06/19 00:00 99.0 117 24 104/71 (82) 100 01/06/19 00:00 Mechanical Ventilator 01/05/19 23:36 118 01/05/19 23:14 120 25 30 01/05/19 21:34 121 27 30 01/05/19 20:00 Mechanical Ventilator 01/05/19 20:00 30 01/05/19 20:00 99.7 125 28 106/66 (79) 100 01/05/19 19:17 123 28 30 01/05/19 19:04 125 Intake and Output 01/05/19 01/06/19 19:00 07:00 Intake Total 840 ml 990 ml Output Total 700 ml 900 ml Balance 140 ml 90 ml Intake Free Water 300 ml 450 ml Tube Feeding 540 ml 540 ml Output Urine Total 700 ml 600 ml Stool Total 300 ml Laboratory Tests 01/05/19 23:40: White Blood Count 12.6H, Red Blood Count 2.72L, Hemoglobin 8.5L, Hematocrit 24.9L, Mean Corpuscular Volume 91, Mean Corpuscular Hemoglobin 31.1H, Mean Corpuscular Hemoglobin Concent 34.1, Red Cell Distribution Width 16.4H, Platelet Count 250, Mean Platelet Volume 8.8, Neutrophils (%) (Auto) 79.6H, Lymphocytes (%) (Auto) 10.5L, Monocytes (%) (Auto) 6.0, Eosinophils (%) (Auto) 2.1, Basophils (%) (Auto) 1.7, Sodium Level 133L, Potassium Level 5.4H, Chloride Level 103, Carbon Dioxide Level 22, Anion Gap 8, Blood Urea Nitrogen 36H, Creatinine 0.8, Estimat Glomerular Filtration Rate , Glucose Level 191H, Calcium Level 8.1L 01/06/19 03:40: White Blood Count 11.0H, Red Blood Count 2.78L, Hemoglobin 8.3L, Hematocrit 25.8L, Mean Corpuscular Volume 93, Mean Corpuscular Hemoglobin 29.9, Mean Corpuscular Hemoglobin Concent 32.3, Red Cell Distribution Width 16.2H, Platelet Count 234, Mean Platelet Volume 8.4, Neutrophils (%) (Auto) 75.3H, Lymphocytes (%) (Auto) 11.6L, Monocytes (%) (Auto) 8.3, Eosinophils (%) (Auto) 3.3H, Basophils (%) (Auto) 1.5, Sodium Level 134L, Potassium Level 5.4H, Chloride Level 102, Carbon Dioxide Level 21, Anion Gap 11, Blood Urea Nitrogen 37H, Creatinine 0.8, Estimat Glomerular Filtration Rate , Glucose Level 162H, Calcium Level 8.5 01/06/19 14:40: Stool Occult Blood [Pending] Height (Feet): 5 Height (Inches): 8.00 Weight (Pounds): 140 Objective HEENT: Eyes were normal. ENT, mucous membranes not dehydrated. NECK: Supple. There was no goiter. No mass. No lad LUNGS: Clear. Vent++/trach HEART: PMI was in the fifth left intercostal space in midclavicular line. There was normal S1 and normal S2. There was no murmur. no s3/s4 ABDOMEN: Soft and nontender without organomegaly. palpable. Normal bowel sounds without bruits. There was no guarding. rebound tenderness. No ascites. No hernia. No CVA tendernes EXTREMITIES: No cyanosis, no clubbing, and no edema. Extremities warm. Adarsh Kim MD Jan 06, 2019 18:00
[2019-01-06] MEDS: Amikacin 1,000 MG in NS 110 ML IV SCH (18:32)
--- NOTE | 2019-01-06 19:12 | Cardiology Progress Note ---
Assessment/Plan Assessment/Plan 1. Supraventricular tachycardia. recurrent 12/09 and 12/10 2. Renal insufficiency. 3. Hyponatremia. 4. 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 6. History of bowel resection. 7. History of CVA. 8. Chronic tracheostomy. 9. Diabetes mellitus. 10 pancreatitis 11. anemai off Cardizem via gtube and dig and atenolol last psvt was on 12/31 short lived watch for recurrence tele reviewed heart rate stable bp borderline Subjective ROS Limited/Unobtainable: Yes Subjective on the vent Objective Last 24 Hour Vital Signs Date Time Temp Pulse Resp B/P (MAP) Pulse Ox O2 Delivery O2 Flow Rate FiO2 01/06/19 19:05 105 27 30 01/06/19 16:54 107 22 30 01/06/19 16:00 107 01/06/19 16:00 97.9 107 24 92/68 (76) 99 01/06/19 16:00 Mechanical Ventilator 01/06/19 16:00 30 01/06/19 15:24 109 29 30 01/06/19 12:48 110 28 Mechanical Ventilator 30 01/06/19 12:46 109 25 30 01/06/19 12:00 97.9 112 24 98/60 (73) 98 01/06/19 12:00 Mechanical Ventilator 01/06/19 12:00 115 01/06/19 12:00 30 01/06/19 10:46 115 29 30 01/06/19 09:07 117 27 30 01/06/19 08:00 Mechanical Ventilator 01/06/19 08:00 30 01/06/19 08:00 98.2 119 24 95/58 (70) 97 01/06/19 07:47 121 01/06/19 07:28 118 24 30 01/06/19 05:14 116 28 30 01/06/19 04:00 Mechanical Ventilator 01/06/19 04:00 30 01/06/19 04:00 99.1 116 24 109/64 (79) 98 01/06/19 03:40 115 01/06/19 03:27 112 25 30 01/06/19 01:24 117 27 30 01/06/19 00:00 99.0 117 24 104/71 (82) 100 01/06/19 00:00 Mechanical Ventilator 4/4/19 23:36 118 01/05/19 23:14 120 25 30 01/05/19 21:34 121 27 30 01/05/19 20:00 Mechanical Ventilator 01/05/19 20:00 30 01/05/19 20:00 99.7 125 28 106/66 (79) 100 01/05/19 19:17 123 28 30 General Appearance: no apparent distress, on vent, patient on isolation Extremities: no swelling Intake and Output 01/05/19 01/06/19 19:00 07:00 Intake Total 840 ml 990 ml Output Total 700 ml 900 ml Balance 140 ml 90 ml Intake Free Water 300 ml 450 ml Tube Feeding 540 ml 540 ml Output Urine Total 700 ml 600 ml Stool Total 300 ml Laboratory Tests Test 01/05/19 23:40 01/06/19 03:40 01/06/19 14:40 White Blood Count 12.6 K/UL (4.8-10.8) H 11.0 K/UL (4.8-10.8) H Red Blood Count 2.72 M/UL (4.70-6.10) L 2.78 M/UL (4.70-6.10) L Hemoglobin 8.5 G/DL (14.2-18.0) L 8.3 G/DL (14.2-18.0) L Hematocrit 24.9 % (42.0-52.0) L 25.8 % (42.0-52.0) L Mean Corpuscular Volume 91 FL (80-99) 93 FL (80-99) Mean Corpuscular Hemoglobin 31.1 PG (27.0-31.0) H 29.9 PG (27.0-31.0) Mean Corpuscular Hemoglobin Concent 34.1 G/DL (32.0-36.0) 32.3 G/DL (32.0-36.0) Red Cell Distribution Width 16.4 % (11.6-14.8) H 16.2 % (11.6-14.8) H Platelet Count 250 K/UL (150-450) 234 K/UL (150-450) Mean Platelet Volume 8.8 FL (6.5-10.1) 8.4 FL (6.5-10.1) Neutrophils (%) (Auto) 79.6 % (45.0-75.0) H 75.3 % (45.0-75.0) H Lymphocytes (%) (Auto) 10.5 % (20.0-45.0) L 11.6 % (20.0-45.0) L Monocytes (%) (Auto) 6.0 % (1.0-10.0) 8.3 % (1.0-10.0) Eosinophils (%) (Auto) 2.1 % (0.0-3.0) 3.3 % (0.0-3.0) H Basophils (%) (Auto) 1.7 % (0.0-2.0) 1.5 % (0.0-2.0) Sodium Level 133 MMOL/L (136-145) L 134 MMOL/L (136-145) L Potassium Level 5.4 MMOL/L (3.5-5.1) H 5.4 MMOL/L (3.5-5.1) H Chloride Level 103 MMOL/L (98-107) 102 MMOL/L (98-107) Carbon Dioxide Level 22 MMOL/L (21-32) 21 MMOL/L (21-32) Anion Gap 8 mmol/L (5-15) 11 mmol/L (5-15) Blood Urea Nitrogen 36 mg/dL (7-18) H 37 mg/dL (7-18) H Creatinine 0.8 MG/DL (0.55-1.30) 0.8 MG/DL (0.55-1.30) Estimat Glomerular Filtration Rate mL/min (>60) mL/min (>60) Glucose Level 191 MG/DL (74-106) H 162 MG/DL (74-106) H Calcium Level 8.1 MG/DL (8.5-10.1) L 8.5 MG/DL (8.5-10.1) Stool Occult Blood Pending Donny Kelley MD Jan 06, 2019 19:12
--- NOTE | 2019-01-06 19:13 | NUR ---
NURSE NOTES: Received bedside report from SHAKIR Watkins.Patient stable,open eyes,non verbal,ST on athletic monitor,trach Portex 7 AC 18 TV 500 FiO2 30% PEEP 5 tolerated well,no s/s of pain,no respiratory distress noted,GT in place running Glucerna1.5@ 45 ml/hr 150 ml flush Q 4 hrs,colostomy on RLQ,colostomy bad changed d/t leaking,BS active in all quadrants,suprapubic cath in placed,sacral wound dressings changed ,IV asymptomatic intact on EDA PICC dressing changed 01/04/19,bed secured,call light within a reach,will continue to monitor.
[2019-01-06 20:00] VITALS: BP 104/70
[2019-01-06] MEDS: Dyna-Hex 2% Top Sol 2oz TOPIC SCH (20:03)
[2019-01-07] VITALS: BP 100/65
--- NOTE | 2019-01-07 | NUR ---
NURSE NOTES: Received Discharge order from 01/07/19 back to [facility],MRSA sputum/blood and VRE rect colonized by
[2019-01-07 04:00] VITALS: BP 97/63
[2019-01-07] MEDS: NovoLOG Insulin Flexpen SUBQ SCH ×3 (05:37→17:05)
--- NOTE | 2019-01-07 06:00 | Progress Note ---
DATE: 01/06/2019 SUBJECTIVE: The patient is afebrile and hemodynamically stable. PHYSICAL EXAMINATION: VITAL SIGNS: Blood pressure 104/70, his pulse is 105, respirations of 25, and temperature 98.6. HEENT: Eyes were normal. ENT, mucous membranes were moist and intact. NECK: Supple with no JVD without lymph nodes. Tracheostomy site is clean. LUNGS: Clear without rhonchi, rales, or wheezing. HEART: Normal sounds with regular beats. There is tachycardia at rest. ABDOMEN: Soft and nontender with normal bowel sounds. Gastrostomy site is clean. EXTREMITIES: Warm without cyanosis, clubbing, or edema. LABORATORY AND DIAGNOSTIC DATA: Hemoglobin is 8.3, hematocrit 25.8 with MCV of 93, WBC of 11.0, and platelet 274,000. His BUN and creatinine are 37 and 0.8 respectively. Sodium ____, potassium 5.4, chloride 102, and CO2 is 21. IMPRESSION: The patient has ____ Kayexalate 60 gram via G-tube. BMP will be taken in the a.m. The patient's glucose is 162. Calcium is 8.5. The patient is stable enough to return back to the subacute unit where he can complete his six weeks of IV antibiotics. His chest x-ray today revealed chronic appearing interstitial disease. The patient is afebrile and hemodynamically stable. He has minimal leukocytosis. We will transfer back to the extended care facility subacute unit in the a.m. on his current medication. He will complete 6 weeks of intravenous antibiotics. Neema Hutchins M.D. DR: PIERCE JOB#: [id number] CC:
[2019-01-07 06:13] LABS: HEMATOCRIT 24.3 % (42.0-52.0); HEMOGLOBIN 7.8 G/DL (14.2-18.0); MEAN CORPUSCULAR VOLUME 94 FL (80-99); PLATELET COUNT 225 K/UL (150-450); RED BLOOD COUNT 2.59 M/UL (4.70-6.10); RED CELL DISTRIBUTION WIDTH 17.1 % (11.6-14.8); WHITE BLOOD COUNT 9.9 K/UL (4.8-10.8)
[2019-01-07 06:34] LABS: ALANINE AMINOTRANSFERASE 12 U/L (12-78); ALBUMIN 1.4 G/DL (3.4-5.0); ALBUMIN/GLOBULIN RATIO 0.2 (1.0-2.7); ALKALINE PHOSPHATASE 100 U/L (46-116); ANION GAP 12 mmol/L (5-15); ASPARTATE AMINO TRANSFERASE 18 U/L (15-37); BILIRUBIN,TOTAL 0.2 MG/DL (0.2-1.0); BLOOD UREA NITROGEN 35 mg/dL (7-18); CALCIUM 7.6 MG/DL (8.5-10.1); CARBON DIOXIDE 22 MMOL/L (21-32); CHLORIDE 103 MMOL/L (98-107); CREATININE 0.7 MG/DL (0.55-1.30); PHOSPHORUS 1.6 MG/DL (2.5-4.9); POTASSIUM 4.9 MMOL/L (3.5-5.1); SODIUM 137 MMOL/L (136-145)
--- NOTE | 2019-01-07 07:25 | NUR ---
HAND-OFF: Report given to SHAKIR Salguero/SHAKIR Gardner.Patient stable.
--- NOTE | 2019-01-07 07:30 | NUR ---
NURSE NOTES: Received patient from Betzaida Perez RN. Patient resting with no signs of distress. Call light in reach and bed at its lowest position. Will continue to monitor.
[2019-01-07 08:00] VITALS: BP 105/75
[2019-01-07] MEDS: Levemir Flexpen SUBQ SCH ×2 (08:31→21:00)
[2019-01-07] MEDS: Aztreonam Inj 2 GM in D5W 110 ML IVPB SCH ×2 (08:37→15:58)
--- NOTE | 2019-01-07 08:49 | Urology Progress Note ---
Assessment/Plan Assessment/Plan 1. Urinary retention with chronic suprapubic tube. 2. Probable neurogenic bladder. 3. UTI colonization. 4. Hematuria. 5. Proteinuria. 6. Cystitis. 7. Renal cyst versus small mass. 8. Scrotal edema. 9. Hydrocele. new SP tube placed 01/04 hand irrigated and do PRN abx as ordered serial renal imaging Subjective Allergies: Coded Allergies: PENICILLINS (Unverified Allergy, Unknown, 02/26/16) POLYMYXIN B (Unverified Allergy, Unknown, 02/26/16) VANCOMYCIN (Unverified Allergy, Unknown, 02/26/16) Subjective all noted, new sp tube draining ok, mild leakage Objective Last 24 Hour Vital Signs Date Time Temp Pulse Resp B/P (MAP) Pulse Ox O2 Delivery O2 Flow Rate FiO2 01/07/19 08:00 97.9 105 26 105/75 (85) 98 01/07/19 07:26 103 21 30 01/07/19 05:14 107 23 30 01/07/19 04:00 30 01/07/19 04:00 Mechanical Ventilator 01/07/19 04:00 97.9 109 27 97/63 (74) 100 01/07/19 03:51 106 01/07/19 03:08 107 22 30 01/07/19 01:08 108 22 30 01/07/19 00:00 97.6 105 26 100/65 (77) 100 01/07/19 00:00 Mechanical Ventilator 01/06/19 23:35 104 01/06/19 23:22 104 21 30 01/06/19 21:08 105 29 30 01/06/19 20:00 98.6 105 25 104/70 (81) 99 01/06/19 20:00 30 01/06/19 20:00 Mechanical Ventilator 01/06/19 19:26 104 01/06/19 19:05 105 27 30 01/06/19 16:54 107 22 30 01/06/19 16:00 107 01/06/19 16:00 97.9 107 24 92/68 (76) 99 01/06/19 16:00 Mechanical Ventilator 01/06/19 16:00 30 01/06/19 15:24 109 29 30 01/06/19 12:48 110 28 Mechanical Ventilator 30 01/06/19 12:46 109 25 30 01/06/19 12:00 97.9 112 24 98/60 (73) 98 01/06/19 12:00 Mechanical Ventilator 01/06/19 12:00 115 01/06/19 12:00 30 01/06/19 10:46 115 29 30 01/06/19 09:07 117 27 30 Intake and Output 01/06/19 01/07/19 19:00 07:00 Intake Total 740 ml 945 ml Output Total 1200 ml 950 ml Balance -460 ml -5 ml Intake Free Water 200 ml 450 ml Tube Feeding 540 ml 495 ml Output Urine Total 900 ml 700 ml Stool Total 300 ml 250 ml Microbiology Date/Time Source Procedure Growth Status 12/30/18 17:50 Blood Blood Culture - Final NO GROWTH AFTER 5 DAYS Complete 12/28/18 04:30 Other(Specify in comment) Catheter Tip Culture - Final NO GROWTH AFTER 4 DAYS Complete 12/20/18 13:00 Sputum Induced Gram Stain - Final Complete 12/20/18 13:00 Sputum Culture - Final Staphylococcus Aureus - Mrsa Usual Respiratory Shelly Complete 12/30/18 17:37 Stool Clostridium difficile Toxin Assay - Final Complete 12/26/18 04:00 Urine,Clean Catch Urine Culture - Final Meera Albicans Complete 12/30/18 17:37 Sacral Wound Gram Stain - Final Complete 12/30/18 17:37 Wound Culture - Final K.pneumoniae Carbapenem Resist Escherichia Coli - Esbl Proteus Mirabilis Complete Current Medications Medications (Trade) Dose Ordered Sig/Fransisco Route PRN Reason Start Time Stop Time Status Last Admin Dose Admin Amikacin Protocol (Amikacin pharmacy to dose) 1 ea DAILY PRN MISC Per rx protocol 01/03/19 16:30 02/02/19 16:29 Amikacin Sulfate 1000 mg/Sodium Chloride 114 ml @ 228 mls/hr Q36H IV 01/05/19 06:00 01/12/19 05:59 01/06/19 18:32 Aztreonam 2 gm/ Dextrose 110 ml @ 220 mls/hr Q8H IVPB 01/02/19 16:00 01/09/19 15:59 01/07/19 08:37 Calcitonin Pelican (Miacalcin) 1 sprays DAILY NASAL 12/28/18 09:00 01/24/19 10:59 01/07/19 08:36 Chlorhexidine Gluconate (Sandra-Hex 2%) 1 applic DAILY@2000 TOPIC 12/28/18 20:00 01/09/19 19:59 01/06/19 20:03 Dextrose (Dextrose 50%) 25 ml Q30M PRN IV Hypoglycemia 01/01/19 00:15 01/31/19 00:14 Dextrose (Dextrose 50%) 50 ml Q30M PRN IV Hypoglycemia 01/01/19 00:15 01/31/19 00:14 Diltiazem HCl (Cardizem) 10 mg BIDPRN PRN IVP FOR HR >140 12/28/18 08:45 01/11/19 08:44 Fenofibrate (Tricor) 145 mg DAILY ORAL 12/31/18 09:00 01/30/19 08:59 01/07/19 08:36 Gemfibrozil (Lopid) 600 mg TWICE A DAY GT 12/28/18 09:00 01/14/19 10:14 01/07/19 08:36 Insulin Aspart (NovoLOG) EVERY 6 HOURS SUBQ 01/01/19 06:00 01/31/19 05:59 01/07/19 05:37 Insulin Detemir (Levemir) 20 units Q12HR SUBQ 01/02/19 21:00 01/27/19 13:59 01/07/19 08:31 Lansoprazole (Prevacid) 30 mg BID GT 12/28/18 09:00 01/16/19 08:59 01/07/19 08:36 Nateglinide (Starlix) 120 mg Q8HR ORAL 12/28/18 06:00 01/17/19 21:59 01/07/19 05:36 Laboratory Tests 01/06/19 14:40: Stool Occult Blood [Pending] 01/07/19 04:05: White Blood Count 9.9, Red Blood Count 2.59L, Hemoglobin 7.8L, Hematocrit 24.3L , Mean Corpuscular Volume 94, Mean Corpuscular Hemoglobin 30.2, Mean Corpuscular Hemoglobin Concent 32.2, Red Cell Distribution Width 17.1H, Platelet Count 225, Mean Platelet Volume 7.9, Neutrophils (%) (Auto) , Lymphocytes (%) (Auto) , Monocytes (%) (Auto) , Eosinophils (%) (Auto) , Basophils (%) (Auto) , Differential Total Cells Counted 100, Neutrophils % ( Manual) 73, Lymphocytes % (Manual) 12L, Monocytes % (Manual) 10, Eosinophils % ( Manual) 5H, Basophils % (Manual) 0, Band Neutrophils 0, Platelet Estimate Adequate, Platelet Morphology Normal, Anisocytosis 1+, Sodium Level 137, Potassium Level 4.9, Chloride Level 103, Carbon Dioxide Level 22, Anion Gap 12, Blood Urea Nitrogen 35H, Creatinine 0.7, Estimat Glomerular Filtration Rate , Glucose Level 144H, Uric Acid 4.3, Calcium Level 7.6L, Phosphorus Level 1.6L, Magnesium Level 1.9, Total Bilirubin 0.2, Aspartate Amino Transf (AST/SGOT) 18, Alanine Aminotransferase (ALT/SGPT) 12, Alkaline Phosphatase 100, C-Reactive Protein, Quantitative 12.5H, Pro-B-Type Natriuretic Peptide 213H, Total Protein 7.8, Albumin 1.4L, Globulin 6.4, Albumin/Globulin Ratio 0.2L Height (Feet): 5 Height (Inches): 8.00 Weight (Pounds): 146 Objective exam stable, urine yellow with debris Ramez Gonzalez MD Jan 07, 2019 08:49
--- NOTE | 2019-01-07 10:23 | NUR ---
DISCHARGE PLANNING: NOTE CM CONTACTED [facility] THEY ARE NOT EXPECTING THIS PATIENT. ADMISSIONS IS NOT IN THE FACILITY OVER THE WEEKEND. 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 CLINICALS NOT FAXED PREVIOUSLY. CLINICALS FAXED CURRENTLY. [facility] T: [phone] Addendum: 01/07/19 at 1300 by Talisha Tejeda CM UNABLE TO LEAVE FOR MICHELE TO VERIFY IF CLINICALS WERE RECEIVED FOR THIS PATIENT. CM CALLED HELEN AT [facility]. HELEN STATED SHE WILL TRY TO GET IN TOUCH WITH ZACK REGARDING ACCEPTANCE OF THIS PATIENT. PATIENT IS BEYOND BEDHOLD. FINANCIALS WILL HAVE TO BE VERIFIED. INFO RELAYED TO MARI BAIRD ON [place]. Addendum: 01/07/19 at 1406 by Talisha Tejeda CM NO ANSWER FROM JUANY BAUTISTA AT [facility]
--- NOTE | 2019-01-07 10:40 | Pulmonolgy Critical Care Note ---
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 Respiratory: monitor respiratory rate, adjust FIO2, CXR Cardiac: continue pressors, continue to monitor HR/BP Renal: F/U I&O Infectious Disease: check cultures Gastrointestinal: continue feedings/current rate Endocrine: monitor blood sugar, check HgA1C Neurologic: PRN Ativan Affect: PRN ativan Disposition: keep in ICU 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, 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 with: consultants, 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 - Objective Last 24 Hour Vital Signs Date Time Temp Pulse Resp B/P (MAP) Pulse Ox O2 Delivery O2 Flow Rate FiO2 01/07/19 08:58 102 22 30 01/07/19 08:00 Mechanical Ventilator 01/07/19 08:00 30 01/07/19 08:00 97.9 105 26 105/75 (85) 98 01/07/19 07:39 100 01/07/19 07:26 103 21 30 01/07/19 05:14 107 23 30 01/07/19 04:00 30 01/07/19 04:00 Mechanical Ventilator 01/07/19 04:00 97.9 109 27 97/63 (74) 100 01/07/19 03:51 106 01/07/19 03:08 107 22 30 01/07/19 01:08 108 22 30 01/07/19 00:00 97.6 105 26 100/65 (77) 100 01/07/19 00:00 Mechanical Ventilator 01/06/19 23:35 104 01/06/19 23:22 104 21 30 01/06/19 21:08 105 29 30 01/06/19 20:00 98.6 105 25 104/70 (81) 99 01/06/19 20:00 30 01/06/19 20:00 Mechanical Ventilator 01/06/19 19:26 104 01/06/19 19:05 105 27 30 01/06/19 16:54 107 22 30 01/06/19 16:00 107 4/5/19 16:00 97.9 107 24 92/68 (76) 99 01/06/19 16:00 Mechanical Ventilator 01/06/19 16:00 30 01/06/19 15:24 109 29 30 01/06/19 12:48 110 28 Mechanical Ventilator 30 01/06/19 12:46 109 25 30 01/06/19 12:00 97.9 112 24 98/60 (73) 98 01/06/19 12:00 Mechanical Ventilator 01/06/19 12:00 115 01/06/19 12:00 30 01/06/19 10:46 115 29 30 Status: awake Condition: grave Lungs: clear Heart: HR/BP unstable Abdomen: non-tender, feeding tube Extremities: edema Decubiti: stage Accucheck: 182 Critical Care - Subjective ROS Limited/Unobtainable: Yes Condition: critical EKG Rhythm: Sinus Tachycardia FI02: 30 Vent Support Breath Rate: 18 Vent Support Mode: AC Vent Tidal Volume: 500 Sputum Amount: Small PEEP: 5.0 PIP: 30 Tube Feeding Amount: 45 I&O: Intake and Output 01/06/19 01/07/19 18:59 06:59 Intake Total 740 ml 990 ml Output Total 1200 ml 950 ml Balance -460 ml 40 ml Intake Free Water 200 ml 450 ml Tube Feeding 540 ml 540 ml Output Urine Total 900 ml 700 ml Stool Total 300 ml 250 ml Labs: Laboratory Tests Test 01/06/19 14:40 01/07/19 04:05 Stool Occult Blood Pending White Blood Count 9.9 K/UL (4.8-10.8) Red Blood Count 2.59 M/UL (4.70-6.10) L Hemoglobin 7.8 G/DL (14.2-18.0) L Hematocrit 24.3 % (42.0-52.0) L Mean Corpuscular Volume 94 FL (80-99) Mean Corpuscular Hemoglobin 30.2 PG (27.0-31.0) Mean Corpuscular Hemoglobin Concent 32.2 G/DL (32.0-36.0) Red Cell Distribution Width 17.1 % (11.6-14.8) H Platelet Count 225 K/UL (150-450) Mean Platelet Volume 7.9 FL (6.5-10.1) Neutrophils (%) (Auto) % (45.0-75.0) Lymphocytes (%) (Auto) % (20.0-45.0) Monocytes (%) (Auto) % (1.0-10.0) Eosinophils (%) (Auto) % (0.0-3.0) Basophils (%) (Auto) % (0.0-2.0) Differential Total Cells Counted 100 Neutrophils % (Manual) 73 % (45-75) Lymphocytes % (Manual) 12 % (20-45) L Monocytes % (Manual) 10 % (1-10) Eosinophils % (Manual) 5 % (0-3) H Basophils % (Manual) 0 % (0-2) Band Neutrophils 0 % (0-8) Platelet Estimate Adequate Platelet Morphology Normal Anisocytosis 1+ Sodium Level 137 MMOL/L (136-145) Potassium Level 4.9 MMOL/L (3.5-5.1) Chloride Level 103 MMOL/L (98-107) Carbon Dioxide Level 22 MMOL/L (21-32) Anion Gap 12 mmol/L (5-15) Blood Urea Nitrogen 35 mg/dL (7-18) H Creatinine 0.7 MG/DL (0.55-1.30) Estimat Glomerular Filtration Rate mL/min (>60) Glucose Level 144 MG/DL (74-106) H Uric Acid 4.3 MG/DL (2.6-7.2) Calcium Level 7.6 MG/DL (8.5-10.1) L Phosphorus Level 1.6 MG/DL (2.5-4.9) L Magnesium Level 1.9 MG/DL (1.8-2.4) Total Bilirubin 0.2 MG/DL (0.2-1.0) Aspartate Amino Transf (AST/SGOT) 18 U/L (15-37) Alanine Aminotransferase (ALT/SGPT) 12 U/L (12-78) Alkaline Phosphatase 100 U/L (46-116) C-Reactive Protein, Quantitative 12.5 mg/dL (0.00-0.90) H Pro-B-Type Natriuretic Peptide 213 pg/mL (0-125) H Total Protein 7.8 G/DL (6.4-8.2) Albumin 1.4 G/DL (3.4-5.0) L Globulin 6.4 g/dL Albumin/Globulin Ratio 0.2 (1.0-2.7) L Abhishek Guerra MD Jan 07, 2019 10:40
[2019-01-07 12:00] VITALS: BP 95/63
[2019-01-07] MEDS ORDERED: Sodium Phosphate 30 MM in NS 275 ML IVPB ONE (12:00)
--- NOTE | 2019-01-07 12:27 | Nephrology Progress Note ---
Assessment/Plan Problem List: (1) Hypercalcemia (2) ATN (acute tubular necrosis) (3) Anemia (4) Feeding by G-tube (5) Acute and chronic respiratory failure (6) UTI (urinary tract infection) (7) Hyponatremia Assessment in [facility] - Glucose better controlled Periodic high K Patient have mainly Pre Renal Azotemia with possible underlying CKD- Low Na partly depletional, partly due to Hyperglycemia RESOLVED Other conditions as outlined: (1) Acute and chronic respiratory failure ([id number]) (2) Sepsis (3) Malnutrition and HypoAlbuminemia (4) UTI (urinary tract infection) (5) Anemia (6) Diabetes mellitus, type II (7) Colostomy care (8) Cerebral vascular disease (9) Decubitus ulcer of sacral region, stage 2 (10) Feeding by G-tube (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 Plan K & Phos supplement as needed Levemir and adjust dose Kayexelate for high K as needed Transfuse as needed Stop Digoxin stop Atenolol Stop Cardiazem Pressors as needed Albumin bolus as needed AREDIA 90 mg for HYPERCALCEMIA on 12/23 - Fu Calcium level will redose On Starlix feeding to glucerna Keep electrolytes in check Keep BS and BP in check per consultants Subjective ROS Limited/Unobtainable: Yes Objective Objective Last 24 Hour Vital Signs Date Time Temp Pulse Resp B/P (MAP) Pulse Ox O2 Delivery O2 Flow Rate FiO2 01/07/19 12:00 98.1 107 24 95/63 (74) 100 01/07/19 11:20 104 24 30 01/07/19 08:58 102 22 30 01/07/19 08:00 Mechanical Ventilator 01/07/19 08:00 30 01/07/19 08:00 97.9 105 26 105/75 (85) 98 01/07/19 07:39 100 01/07/19 07:26 103 21 30 01/07/19 05:14 107 23 30 01/07/19 04:00 30 01/07/19 04:00 Mechanical Ventilator 01/07/19 04:00 97.9 109 27 97/63 (74) 100 01/07/19 03:51 106 01/07/19 03:08 107 22 30 01/07/19 01:08 108 22 30 01/07/19 00:00 97.6 105 26 100/65 (77) 100 01/07/19 00:00 Mechanical Ventilator 01/06/19 23:35 104 01/06/19 23:22 104 21 30 01/06/19 21:08 105 29 30 01/06/19 20:00 98.6 105 25 104/70 (81) 99 01/06/19 20:00 30 01/06/19 20:00 Mechanical Ventilator 01/06/19 19:26 104 01/06/19 19:05 105 27 30 01/06/19 16:54 107 22 30 01/06/19 16:00 107 01/06/19 16:00 97.9 107 24 92/68 (76) 99 01/06/19 16:00 Mechanical Ventilator 01/06/19 16:00 30 01/06/19 15:24 109 29 30 01/06/19 12:48 110 28 Mechanical Ventilator 30 01/06/19 12:46 109 25 30 Intake and Output 01/06/19 01/07/19 18:59 06:59 Intake Total 740 ml 990 ml Output Total 1200 ml 950 ml Balance -460 ml 40 ml Intake Free Water 200 ml 450 ml Tube Feeding 540 ml 540 ml Output Urine Total 900 ml 700 ml Stool Total 300 ml 250 ml Laboratory Tests 01/06/19 14:40: Stool Occult Blood [Pending] 01/07/19 04:05: White Blood Count 9.9, Red Blood Count 2.59L, Hemoglobin 7.8L, Hematocrit 24.3L , Mean Corpuscular Volume 94, Mean Corpuscular Hemoglobin 30.2, Mean Corpuscular Hemoglobin Concent 32.2, Red Cell Distribution Width 17.1H, Platelet Count 225, Mean Platelet Volume 7.9, Neutrophils (%) (Auto) , Lymphocytes (%) (Auto) , Monocytes (%) (Auto) , Eosinophils (%) (Auto) , Basophils (%) (Auto) , Differential Total Cells Counted 100, Neutrophils % ( Manual) 73, Lymphocytes % (Manual) 12L, Monocytes % (Manual) 10, Eosinophils % ( Manual) 5H, Basophils % (Manual) 0, Band Neutrophils 0, Platelet Estimate Adequate, Platelet Morphology Normal, Anisocytosis 1+, Sodium Level 137, Potassium Level 4.9, Chloride Level 103, Carbon Dioxide Level 22, Anion Gap 12, Blood Urea Nitrogen 35H, Creatinine 0.7, Estimat Glomerular Filtration Rate , Glucose Level 144H, Uric Acid 4.3, Calcium Level 7.6L, Phosphorus Level 1.6L, Magnesium Level 1.9, Total Bilirubin 0.2, Aspartate Amino Transf (AST/SGOT) 18, Alanine Aminotransferase (ALT/SGPT) 12, Alkaline Phosphatase 100, C-Reactive Protein, Quantitative 12.5H, Pro-B-Type Natriuretic Peptide 213H, Total Protein 7.8, Albumin 1.4L, Globulin 6.4, Albumin/Globulin Ratio 0.2L Height (Feet): 5 Height (Inches): 8.00 Weight (Pounds): 146 EENT: other - trach Cardiovascular: tachycardia Respiratory/Chest: decreased breath sounds Abdomen: distended Objective no change Migue Moreland MD Jan 07, 2019 12:27
--- NOTE | 2019-01-07 13:14 | Infectious Diseases Prog Note ---
Assessment/Plan Assessment/Plan Gram positive bacteremia- PICC line infection -12/26 2d echo: no vegetations 12/23 SP -Removal of PICC line - -12/20 1/ E. fecalis (S Van, amp), 1/2 MRSA. PICC line; Peripheral NTD; Bcx NTD; 12/23 Neg Septic shock, SP Severe Sepsis 2ry to GNR bacteremia, PNA, sp Rx -01/02 CXR: Chronic appearing interstitial opacities are again demonstrated in the right upper lobe as well as more generalized. There is suggestion of small bilateralpleural effusions, unchanged -12/24 CXR: Bilateral interstitial and airspace opacities, worse in the right upper lobe, slightly worse than prior study. -12/21 CXR: Bilateral interstitial and airspace opacities, associated bronchiectasis are again demonstrated. There is blunting of the left costophrenic sulcus again demonstrated. -12/17 CXR: No significant interval change in the diffuse patchy bilateral reticular interstitial and airspace opacities. -CXR: Probable small left pleural effusion, also evident on prior study 2017. Bilateral interstitial disease, unchanged, suspect chronic. Correlate with clinical findings -sp CX MDR PsA (S Gentamicin, AMikacin, Cefepime, Aztreonam, Tobramycin); repeats sp cx 12/20 MRSA; likely colonzier as vent settings stable GNR bacteremia, likely from UTI -CT abd/p: Findings consistent with uncomplicated nonnecrotizing acute pancreatitis. No evidence of associated peripancreatic abscess Surgical changes as described, including right lower quadrant ileostomy, subtotal colectomy with Haroldo procedure. Wall thickening of the Haroldo pouch. This could indicate inflammation. However, this is also present on both of the prior 2 exams and may be baseline for this patien. Evidence of mild anasarca, with edema of the subcutaneous fat. This is a new finding. Chronic appearing decubitus changes of the bilateral ischia. Correlate with clinical findings. Complete left lower lobe consolidation. This is similar to both of the prior CTs, andis likely a chronic finding. There is progressive chronic interstitial fibrotic change involving the right middle lobe. There is also right lower lobe granulomatous calcification, Extensive pulmonary parenchymal opacities bilaterally may reflect acute inflammation/infection, edema, progressive chronic scarring, orcombination of the above. These are considerably more extensive than on the prior study -u/a 10-15, nit neg, luek +3; ucx 50-60k Enterococcus (Vanco resist; S AMp), 40-50 K Proteus -12/07 Bcx 3/ Proteus; 12/08 Bcx 1/4 Proteus (S Aztreonam; R Cipro, levo; I Imipenem); Acute pancreatitis -lipase ~1k Fever - recurrent- in the setting of bacteremia and pancreaitis; Leukocytosis , recurrent, increased--in the setting of bacteremia, UTI and acute pancreatitis -CT abd/p Suspected active decubitus ulcer right side with evidence of drainage. Correlate clinically. No deeper abscess or drainable collections identified. The ulcer probes to the right ischium. Acute osteomyelitis or acute on chronic osteomyelitis may be considered. Chronic bilateral grade 4 decubitus ulcers with the large areas absent eroded posterior ischia and absent lower sacrum and coccyx due to previous osteomyelitis. Scrotal swelling with skin thickening and suggestion of heterogeneous fluid within the scrotal sac. Correlate clinically. No evidence of intra-abdominal or pelvic abscess or other acute pathology.Chronic dense left posterior basilar consolidation/atelectasis. Extensive fibrosis and cystic replacement anterior right lung base middle lobe. Sacral decubitus ulcer- w/ acute or acute on chronic OM --sacral wound cx KPC K.pna (S Cefepime, Amikacin), E.coli (S Zosyn), P. mirabilis (R cipro/levo, amp) CT 12/30/18 - OM of sacrum CONS bacteremia- likely contaminant -12/12 Bcx / CONS; 12/14 Bcx Neg MAULIK, improving dysphagia s/p peg COPD GBS quadriplegia chronic resp failure s/p trach HTN CVA, nonverbal anemia SNF resident Plan: -Continue Aztreonam #03/17 and Amikacin #01/15 for KPC in sacral wound -requested Aztreonam sensitivities -may try Cefepime trial based on wound cx results (unclear what is the PNC allergy) -will likely treat for 6 weeks for OM pending sacral wound cx 01/03/19 SP Linezolid #14 -12/22 SP Aztreonam #14 -12/21 SP INH tobramycin #7 -12/16 SP IV Daptomycin #7 -f/u Bcx x2, sacral wound cx -Monitor CBC/CMP, temperatures -PEG/Trach care -Aspiration precautions -management of acute pancreatitis per primary team. -wound care per surgical team Subjective Allergies: Coded Allergies: PENICILLINS (Unverified Allergy, Unknown, 02/26/16) POLYMYXIN B (Unverified Allergy, Unknown, 02/26/16) VANCOMYCIN (Unverified Allergy, Unknown, 02/26/16) Subjective afebrile >48hr leukocytosis resolved Objective Vital Signs Last 24 Hour Vital Signs Date Time Temp Pulse Resp B/P (MAP) Pulse Ox O2 Delivery O2 Flow Rate FiO2 01/07/19 12:00 98.1 107 24 95/63 (74) 100 01/07/19 11:20 104 24 30 01/07/19 08:58 102 22 30 01/07/19 08:00 Mechanical Ventilator 01/07/19 08:00 30 01/07/19 08:00 97.9 105 26 105/75 (85) 98 01/07/19 07:39 100 01/07/19 07:26 103 21 30 01/07/19 05:14 107 23 30 01/07/19 04:00 30 01/07/19 04:00 Mechanical Ventilator 01/07/19 04:00 97.9 109 27 97/63 (74) 100 01/07/19 03:51 106 01/07/19 03:08 107 22 30 01/07/19 01:08 108 22 30 01/07/19 00:00 97.6 105 26 100/65 (77) 100 01/07/19 00:00 Mechanical Ventilator 01/06/19 23:35 104 01/06/19 23:22 104 21 30 01/06/19 21:08 105 29 30 01/06/19 20:00 98.6 105 25 104/70 (81) 99 01/06/19 20:00 30 01/06/19 20:00 Mechanical Ventilator 01/06/19 19:26 104 01/06/19 19:05 105 27 30 01/06/19 16:54 107 22 30 01/06/19 16:00 107 01/06/19 16:00 97.9 107 24 92/68 (76) 99 01/06/19 16:00 Mechanical Ventilator 01/06/19 16:00 30 01/06/19 15:24 109 29 30 Height (Feet): 5 Height (Inches): 8.00 Weight (Pounds): 146 Objective HEENT: Eyes were normal. ENT, mucous membranes were not dehydrated. NECK: Supple. There was no goiter. No mass. No lymphadenopathy. There was no JVD. No bruits. Carotid upstroke was 2+. LUNGS: Clear. HEART: PMI was in the fifth left intercostal space in midclavicular line. There was normal S1 and normal S2. There was no murmur. No arrhythmia. No S3. No S4. No pericardial rub. ABDOMEN: Soft and nontender without organomegaly. There were no masses palpable. Normal bowel sounds without bruits. There was no guarding. No rebound tenderness. No ascites. No hernia. No CVA tenderness. EXTREMITIES: No cyanosis, no clubbing, and no edema. Extremities were warm. Laboratory Tests Test 01/06/19 14:40 01/07/19 04:05 Stool Occult Blood Pending White Blood Count 9.9 K/UL (4.8-10.8) Red Blood Count 2.59 M/UL (4.70-6.10) L Hemoglobin 7.8 G/DL (14.2-18.0) L Hematocrit 24.3 % (42.0-52.0) L Mean Corpuscular Volume 94 FL (80-99) Mean Corpuscular Hemoglobin 30.2 PG (27.0-31.0) Mean Corpuscular Hemoglobin Concent 32.2 G/DL (32.0-36.0) Red Cell Distribution Width 17.1 % (11.6-14.8) H Platelet Count 225 K/UL (150-450) Mean Platelet Volume 7.9 FL (6.5-10.1) Neutrophils (%) (Auto) % (45.0-75.0) Lymphocytes (%) (Auto) % (20.0-45.0) Monocytes (%) (Auto) % (1.0-10.0) Eosinophils (%) (Auto) % (0.0-3.0) Basophils (%) (Auto) % (0.0-2.0) Differential Total Cells Counted 100 Neutrophils % (Manual) 73 % (45-75) Lymphocytes % (Manual) 12 % (20-45) L Monocytes % (Manual) 10 % (1-10) Eosinophils % (Manual) 5 % (0-3) H Basophils % (Manual) 0 % (0-2) Band Neutrophils 0 % (0-8) Platelet Estimate Adequate Platelet Morphology Normal Anisocytosis 1+ Sodium Level 137 MMOL/L (136-145) Potassium Level 4.9 MMOL/L (3.5-5.1) Chloride Level 103 MMOL/L (98-107) Carbon Dioxide Level 22 MMOL/L (21-32) Anion Gap 12 mmol/L (5-15) Blood Urea Nitrogen 35 mg/dL (7-18) H Creatinine 0.7 MG/DL (0.55-1.30) Estimat Glomerular Filtration Rate mL/min (>60) Glucose Level 144 MG/DL (74-106) H Uric Acid 4.3 MG/DL (2.6-7.2) Calcium Level 7.6 MG/DL (8.5-10.1) L Phosphorus Level 1.6 MG/DL (2.5-4.9) L Magnesium Level 1.9 MG/DL (1.8-2.4) Total Bilirubin 0.2 MG/DL (0.2-1.0) Aspartate Amino Transf (AST/SGOT) 18 U/L (15-37) Alanine Aminotransferase (ALT/SGPT) 12 U/L (12-78) Alkaline Phosphatase 100 U/L (46-116) C-Reactive Protein, Quantitative 12.5 mg/dL (0.00-0.90) H Pro-B-Type Natriuretic Peptide 213 pg/mL (0-125) H Total Protein 7.8 G/DL (6.4-8.2) Albumin 1.4 G/DL (3.4-5.0) L Globulin 6.4 g/dL Albumin/Globulin Ratio 0.2 (1.0-2.7) L Current Medications Medications (Trade) Dose Ordered Sig/[place] Route PRN Reason Start Time Stop Time Status Last Admin Dose Admin Amikacin Protocol (Amikacin pharmacy to dose) 1 ea DAILY PRN MISC Per rx protocol 01/03/19 16:30 02/02/19 16:29 Amikacin Sulfate 1000 mg/Sodium Chloride 114 ml @ 228 mls/hr Q36H IV 01/05/19 06:00 01/12/19 05:59 01/06/19 18:32 Aztreonam 2 gm/ Dextrose 110 ml @ 220 mls/hr Q8H IVPB 01/02/19 16:00 01/09/19 15:59 01/07/19 08:37 Calcitonin [place] (Miacalcin) 1 sprays DAILY NASAL 12/28/18 09:00 01/24/19 10:59 01/07/19 08:36 Chlorhexidine Gluconate (Sandra-Hex 2%) 1 applic DAILY@2000 TOPIC 12/28/18 20:00 01/09/19 19:59 01/06/19 20:03 Dextrose (Dextrose 50%) 25 ml Q30M PRN IV Hypoglycemia 01/01/19 00:15 01/31/19 00:14 Dextrose (Dextrose 50%) 50 ml Q30M PRN IV Hypoglycemia 01/01/19 00:15 01/31/19 00:14 Diltiazem HCl (Cardizem) 10 mg BIDPRN PRN IVP FOR HR >140 12/28/18 08:45 01/11/19 08:44 Fenofibrate (Tricor) 145 mg DAILY ORAL 12/31/18 09:00 01/30/19 08:59 01/07/19 08:36 Gemfibrozil (Lopid) 600 mg TWICE A DAY GT 12/28/18 09:00 01/14/19 10:14 01/07/19 08:36 Insulin Aspart (NovoLOG) EVERY 6 HOURS SUBQ 01/01/19 06:00 01/31/19 05:59 01/07/19 12:27 Insulin Detemir (Levemir) 20 units Q12HR SUBQ 01/02/19 21:00 01/27/19 13:59 01/07/19 08:31 Lansoprazole (Prevacid) 30 mg BID GT 12/28/18 09:00 01/16/19 08:59 01/07/19 08:36 Nateglinide (Starlix) 120 mg Q8HR ORAL 12/28/18 06:00 01/17/19 21:59 01/07/19 05:36 Sodium Phosphate 30 mm/Sodium Chloride 285 ml @ 47.5 mls/hr ONCE ONCE IVPB 01/07/19 12:00 01/07/19 17:59 01/07/19 12:24 Aminah Champagne M.D. Jan 07, 2019 13:14
--- NOTE | 2019-01-07 15:46 | Surgery Progress Note ---
Surgery Progress Note Subjective Symptoms: improved, other Objective Last 24 Hour Vital Signs Date Time Temp Pulse Resp B/P (MAP) Pulse Ox O2 Delivery O2 Flow Rate FiO2 01/07/19 15:29 101 01/07/19 15:11 103 25 30 01/07/19 13:25 99 25 30 01/07/19 12:04 103 01/07/19 12:00 30 01/07/19 12:00 98.1 107 24 95/63 (74) 100 01/07/19 12:00 Mechanical Ventilator 01/07/19 11:20 104 24 30 01/07/19 08:58 102 22 30 01/07/19 08:00 Mechanical Ventilator 01/07/19 08:00 30 01/07/19 08:00 97.9 105 26 105/75 (85) 98 01/07/19 07:39 100 01/07/19 07:26 103 21 30 01/07/19 05:14 107 23 30 01/07/19 04:00 30 01/07/19 04:00 Mechanical Ventilator 01/07/19 04:00 97.9 109 27 97/63 (74) 100 01/07/19 03:51 106 01/07/19 03:08 107 22 30 01/07/19 01:08 108 22 30 01/07/19 00:00 97.6 105 26 100/65 (77) 100 01/07/19 00:00 Mechanical Ventilator 01/06/19 23:35 104 01/06/19 23:22 104 21 30 01/06/19 21:08 105 29 30 01/06/19 20:00 98.6 105 25 104/70 (81) 99 01/06/19 20:00 30 01/06/19 20:00 Mechanical Ventilator 01/06/19 19:26 104 01/06/19 19:05 105 27 30 01/06/19 16:54 107 22 30 01/06/19 16:00 107 01/06/19 16:00 97.9 107 24 92/68 (76) 99 01/06/19 16:00 Mechanical Ventilator 01/06/19 16:00 30 I&O Intake and Output 01/06/19 01/07/19 18:59 06:59 Intake Total 740 ml 990 ml Output Total 1200 ml 950 ml Balance -460 ml 40 ml Intake Free Water 200 ml 450 ml Tube Feeding 540 ml 540 ml Output Urine Total 900 ml 700 ml Stool Total 300 ml 250 ml Dressing: saturated Wound: other Drains: other Cardiovascular: RSR Respiratory: decreased breath sounds Abdomen: soft, present bowel sounds, non-distended, decreased bowel sounds Extremities: no cyanosis Laboratory Tests Test 01/07/19 04:05 White Blood Count 9.9 K/UL (4.8-10.8) Red Blood Count 2.59 M/UL (4.70-6.10) L Hemoglobin 7.8 G/DL (14.2-18.0) L Hematocrit 24.3 % (42.0-52.0) L Mean Corpuscular Volume 94 FL (80-99) Mean Corpuscular Hemoglobin 30.2 PG (27.0-31.0) Mean Corpuscular Hemoglobin Concent 32.2 G/DL (32.0-36.0) Red Cell Distribution Width 17.1 % (11.6-14.8) H Platelet Count 225 K/UL (150-450) Mean Platelet Volume 7.9 FL (6.5-10.1) Neutrophils (%) (Auto) % (45.0-75.0) Lymphocytes (%) (Auto) % (20.0-45.0) Monocytes (%) (Auto) % (1.0-10.0) Eosinophils (%) (Auto) % (0.0-3.0) Basophils (%) (Auto) % (0.0-2.0) Differential Total Cells Counted 100 Neutrophils % (Manual) 73 % (45-75) Lymphocytes % (Manual) 12 % (20-45) L Monocytes % (Manual) 10 % (1-10) Eosinophils % (Manual) 5 % (0-3) H Basophils % (Manual) 0 % (0-2) Band Neutrophils 0 % (0-8) Platelet Estimate Adequate Platelet Morphology Normal Anisocytosis 1+ Sodium Level 137 MMOL/L (136-145) Potassium Level 4.9 MMOL/L (3.5-5.1) Chloride Level 103 MMOL/L (98-107) Carbon Dioxide Level 22 MMOL/L (21-32) Anion Gap 12 mmol/L (5-15) Blood Urea Nitrogen 35 mg/dL (7-18) H Creatinine 0.7 MG/DL (0.55-1.30) Estimat Glomerular Filtration Rate mL/min (>60) Glucose Level 144 MG/DL (74-106) H Uric Acid 4.3 MG/DL (2.6-7.2) Calcium Level 7.6 MG/DL (8.5-10.1) L Phosphorus Level 1.6 MG/DL (2.5-4.9) L Magnesium Level 1.9 MG/DL (1.8-2.4) Total Bilirubin 0.2 MG/DL (0.2-1.0) Aspartate Amino Transf (AST/SGOT) 18 U/L (15-37) Alanine Aminotransferase (ALT/SGPT) 12 U/L (12-78) Alkaline Phosphatase 100 U/L (46-116) C-Reactive Protein, Quantitative 12.5 mg/dL (0.00-0.90) H Pro-B-Type Natriuretic Peptide 213 pg/mL (0-125) H Total Protein 7.8 G/DL (6.4-8.2) Albumin 1.4 G/DL (3.4-5.0) L Globulin 6.4 g/dL Albumin/Globulin Ratio 0.2 (1.0-2.7) L Plan Problems: (1) Decubitus skin ulcer Assessment & Plan: Pt presented on admission with multiple pressure injuries and Skin erosion. Pt has trach and no evidence of skin breakdown noted under trach collar. Unstageable pressure injury noted to L earlobe. Stable dry brown eschar noted(L) 0.7cm x (W)0.5cm. Gross erythema with denudement and multiple scattered partial thickness wounds noted to buttocks and base of scrotum extending into both posterior upper thighs.Moderate amt sanguineous exudate noted upon removal of drsgs. 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 Moderate amt sanguineous exudate noted (L)3cm x (W)1cm x (D)7.4cm.Erythema periwound secondary to skin erosions. Partially opened DTPI L ischium .Base of wound purple,fluctuant with red borders.Open areas at base of this wound are beefy red in colour.Moderate amt sanguineous exudate noted.(L)7cm x (W)6.8cm. DTPI R ischium.Wound is fluctuant-purple in center with surrounding Maroon colour, and is partially opened with a small area of 5% that is necrotic.(L) 6.5cm x (W)5.5cm. Red skin erosion periwound. Partial thickness pressure injury L hip. Base of wound is moist -viable. Edges adherent and dry. Periwound without erythema or induration(L)1.2cm x (W)0.5cm. Elongate partial thickness wound posterior upper L thigh .Base of wound is moist -viable .Small amt sanguineous exudate noted. (+) maceration along borders. Erythema without induration or elevation in skin temp noted.(L)2cm x (W )9.4cm. DTPI noted to R heel .Base of injury is indurated and maroon in colour. Periwound is firm without erythema. (L)1.5cm x (W)1cm.R heel without evidence of skin breakdown. UPDATE with Full thickness pressure injury sacrum resolving. Less depth noted to tunnel, but base of wound obscured due to size and shape of wound (L)2cm x (W )0.9cm with tunneling at 12 by 3cm. Full thickness wound R ischium with 60% loose soft necrosis. 40% slough with additional necrosis along edges and periwound .No odor noted. (L)6cm x (W)6.3cm x (D)3.2cm undermining 9-12 by 3.1cm @11O'Clock. MASD with Gross erythema with skin erosion entire buttocks extending down into both ischial and both upper thighs including scrotum and bilat groin areas. Scattered satellite lesions with small amt bleeding from these areas. Small area of dry eschar noted to L buttocks (L)1.9cm x (W)2cm. Reabsorbed DTPI with stable dry brown eschar R heel (L)1.5cm x (W)2.5cm Periwound without erythema ,induration or fluctuance. Small dry scab noted to L ear without erythema periwound. No new skin concerns noted. Tx.Plan: Cleanse Sacrum with Saline. Loosely pack with Hydrogel impregnated Kerlix. Apply Triad Paste periwound. Cover with ABD pad. Daily and prn. Cleanse R and L ischial wounds with Saline. Apply Moisture Barrier Paste.Cover with abd pads Daily and prn. Apply Moisture Barrier to skin erosions on buttocks,scrotum, and posterior aspects of both thighs.Cover with ABD pad daily and prn. Cleanse wound L hip with Saline. Apply Moisture Barrier paste .Cover with Optifoam drsg Daily and prn. Cleanse wound posterior upper L thigh with saline .Apply Hydrogel. Cover with Optifoam drsg Daily and prn. Apply Cavilon Skin Barrier to L earlobe daily. Please monitor. Apply Cavilon Skin Barrier to L heel. Cover with Optifoam drsg. Change every 7 days and prn. Apply Cavilon Skin Barrier to R heel. Cover with Optifoam drsg .Change every 7 days and prn. Air fluidized mattress. Reposition every 2hours or as tolerated. Off-load heels with pillow. (2) Acute and chronic respiratory failure Assessment & Plan: cont with breathing treatments trach stable trach site clean will change dressings daily (3) Acute pancreatitis Assessment & Plan: Findings consistent with uncomplicated nonnecrotizing acute pancreatitis. No evidence of associated peripancreatic abscess Surgical changes as described, including right lower quadrant ileostomy, subtotal colectomy with Haroldo procedure. Wall thickening of the Haroldo pouch. This could indicate inflammation. However, this is also present on both of the prior 2 exams and may be baseline for this patient Evidence of mild anasarca, with edema of the subcutaneous fat. This is a new finding Chronic appearing decubitus changes of the bilateral ischia. Correlate with clinical findings Complete left lower lobe consolidation. This is similar to both of the prior CTs , and is likely a chronic finding. There is progressive chronic interstitial fibrotic change involving the right middle lobe. There is also right lower lobe granulomatous calcification Extensive pulmonary parenchymal opacities bilaterally may reflect acute inflammation/infection, edema, progressive chronic scarring, or combination of the above. These are considerably more extensive than on the prior study Trace bilateral pleural fluid New finding of nonobstructive right renal collecting system calculs 4 mm calculus within the bladder lumen. This may represent a bladder calculus, a calculus and left ureteral orifice, or recently passed stone. If either of the latter, no evidence of resultant hydronephrosis or hydroureter Suprapubic catheter. This is a new finding since the 2016 exams. Interim removal of previously demonstrated Bledsoe catheter Gastrostomy Left renal cysts. Subcentimeter low-attenuation right renal lesions, too small to characterize, most likely benign simple cysts. No further follow-up necessary elevated amylase/lipase related to lipids leukocytosis GNR Bacteremia transfused anemia Unfortunately patient not able to participate in exam and difficult to identify if clinically pancreatitis or just laboratory data. Recent CT with uncomplicated pancreatitis but enzymes still remain elevated. Patient tolerated tube feeds. Patient with gram-negative belle bacteremia likely from UTI. Patient remains febrile intermittently with worsening leukocytosis on IV antibiotics. -no acute surgical intervention planned -transfuse as per hematology -Abx as per ID -trend lip/[place] - recent finding based on CT given patient cannot given history or participate in exam. CT with uncomplicated pancreatitis. okay for diet / feeds for now. IV fluids Javier Ricardo Jan 07, 2019 15:46
[2019-01-07 16:00] VITALS: BP 144/67
[2019-01-07] MEDS ORDERED: Tubing IV Secondary IV ONE (17:14)
[2019-01-07] MEDS ORDERED: Sterile Water Irrig 1000ml IRRIG ONE (17:14)
[2019-01-07] MEDS ORDERED: NS 275ml ONE (17:14)
--- NOTE | 2019-01-07 18:49 | NUR ---
RESPIRATORY NOTE: PT RECEIVED STABLE ON CMV WITH CURRENT SETTINGS: AC 18, 500, 30%, +5. ALARMS ON AND AUDIBLE. EXTERNAL ALARM ATTACHED. VENT CIRCUIT SECURE AND OUT OF THE WAY. NO S/S OF RESPIRATORY DISTRESS NOTED AT THIS TIME. WILL CONTINUE TO MONITOR.
--- NOTE | 2019-01-07 19:26 | NUR ---
HAND-OFF: Report given to Victor Manuel Zamorano RN.
--- NOTE | 2019-01-07 19:27 | NUR ---
NURSE NOTES: Report received from Noemy Bravo RN. Patient seen in bed in semi rousseau position on vent with previous setting, spo2 is 100%. PAtient is non verbal but able to nod and shake head to make easy needs known. No S/S of pain is noted via FLACC scale. noted with GT and colostomy and suprapubic cath, all is intact. PICC line noted to left upper arm and is intact. Bed is in lowest position. Call light is within easy reach while in bed. Will continue to monitor.
[2019-01-07] MEDS: Dyna-Hex 2% Top Sol 2oz TOPIC SCH (19:46)
[2019-01-07 20:00] VITALS: BP 125/80
--- NOTE | 2019-01-07 21:11 | Cardiology Progress Note ---
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 No SVT noted on telemetry. Labile BP - sBP range 90s- 140 today Assessment/Plan Continue telemetry Pt remains off b blockers, ca channel blockers - ? due to BP On prn diltiazem for SVT Subjective ROS Limited/Unobtainable: Yes Subjective Cardiology for Dr. Kelley Intubated/ awake Objective Last 24 Hour Vital Signs Date Time Temp Pulse Resp B/P (MAP) Pulse Ox O2 Delivery O2 Flow Rate FiO2 01/07/19 20:00 96.8 103 26 125/80 (95) 99 01/07/19 20:00 Mechanical Ventilator 01/07/19 20:00 30 01/07/19 19:26 102 01/07/19 18:49 103 25 30 01/07/19 16:32 106 21 30 01/07/19 16:00 30 01/07/19 16:00 Mechanical Ventilator 01/07/19 16:00 97.9 101 24 144/67 (92) 100 01/07/19 15:29 101 01/07/19 15:11 103 25 30 01/07/19 13:25 99 25 30 01/07/19 12:04 103 01/07/19 12:00 30 01/07/19 12:00 98.1 107 24 95/63 (74) 100 01/07/19 12:00 Mechanical Ventilator 01/07/19 11:20 104 24 30 01/07/19 08:58 102 22 30 01/07/19 08:00 Mechanical Ventilator 01/07/19 08:00 30 01/07/19 08:00 97.9 105 26 105/75 (85) 98 01/07/19 07:39 100 01/07/19 07:26 103 21 30 01/07/19 05:14 107 23 30 01/07/19 04:00 30 01/07/19 04:00 Mechanical Ventilator 01/07/19 04:00 97.9 109 27 97/63 (74) 100 01/07/19 03:51 106 01/07/19 03:08 107 22 30 01/07/19 01:08 108 22 30 01/07/19 00:00 97.6 105 26 100/65 (77) 100 01/07/19 00:00 Mechanical Ventilator 01/06/19 23:35 104 01/06/19 23:22 104 21 30 General Appearance: no apparent distress, on vent EENT: PERRL/EOMI Neck: non-tender, other - trach Rhythm: NSR Cardiovascular: normal rate, regular rhythm, no gallop/murmur Respiratory/Chest: rhonchi - bilaterally Abdomen: normal bowel sounds, other - +g tube Extremities: no swelling Intake and Output 01/06/19 01/07/19 19:00 07:00 Intake Total 740 ml 945 ml Output Total 1200 ml 950 ml Balance -460 ml -5 ml Intake Free Water 200 ml 450 ml Tube Feeding 540 ml 495 ml Output Urine Total 900 ml 700 ml Stool Total 300 ml 250 ml Laboratory Tests Test 01/07/19 04:05 White Blood Count 9.9 K/UL (4.8-10.8) Red Blood Count 2.59 M/UL (4.70-6.10) L Hemoglobin 7.8 G/DL (14.2-18.0) L Hematocrit 24.3 % (42.0-52.0) L Mean Corpuscular Volume 94 FL (80-99) Mean Corpuscular Hemoglobin 30.2 PG (27.0-31.0) Mean Corpuscular Hemoglobin Concent 32.2 G/DL (32.0-36.0) Red Cell Distribution Width 17.1 % (11.6-14.8) H Platelet Count 225 K/UL (150-450) Mean Platelet Volume 7.9 FL (6.5-10.1) Neutrophils (%) (Auto) % (45.0-75.0) Lymphocytes (%) (Auto) % (20.0-45.0) Monocytes (%) (Auto) % (1.0-10.0) Eosinophils (%) (Auto) % (0.0-3.0) Basophils (%) (Auto) % (0.0-2.0) Differential Total Cells Counted 100 Neutrophils % (Manual) 73 % (45-75) Lymphocytes % (Manual) 12 % (20-45) L Monocytes % (Manual) 10 % (1-10) Eosinophils % (Manual) 5 % (0-3) H Basophils % (Manual) 0 % (0-2) Band Neutrophils 0 % (0-8) Platelet Estimate Adequate Platelet Morphology Normal Anisocytosis 1+ Sodium Level 137 MMOL/L (136-145) Potassium Level 4.9 MMOL/L (3.5-5.1) Chloride Level 103 MMOL/L (98-107) Carbon Dioxide Level 22 MMOL/L (21-32) Anion Gap 12 mmol/L (5-15) Blood Urea Nitrogen 35 mg/dL (7-18) H Creatinine 0.7 MG/DL (0.55-1.30) Estimat Glomerular Filtration Rate mL/min (>60) Glucose Level 144 MG/DL (74-106) H Uric Acid 4.3 MG/DL (2.6-7.2) Calcium Level 7.6 MG/DL (8.5-10.1) L Phosphorus Level 1.6 MG/DL (2.5-4.9) L Magnesium Level 1.9 MG/DL (1.8-2.4) Total Bilirubin 0.2 MG/DL (0.2-1.0) Aspartate Amino Transf (AST/SGOT) 18 U/L (15-37) Alanine Aminotransferase (ALT/SGPT) 12 U/L (12-78) Alkaline Phosphatase 100 U/L (46-116) C-Reactive Protein, Quantitative 12.5 mg/dL (0.00-0.90) H Pro-B-Type Natriuretic Peptide 213 pg/mL (0-125) H Total Protein 7.8 G/DL (6.4-8.2) Albumin 1.4 G/DL (3.4-5.0) L Globulin 6.4 g/dL Albumin/Globulin Ratio 0.2 (1.0-2.7) L Anneliese Michael MD Jan 07, 2019 21:11
[2019-01-08] VITALS: BP 114/72
[2019-01-08] MEDS: NovoLOG Insulin Flexpen SUBQ SCH ×4 (00:25→17:03)
[2019-01-08] MEDS: Aztreonam Inj 2 GM in D5W 110 ML IVPB SCH ×3 (00:25→16:44)
--- NOTE | 2019-01-08 03:45 | Progress Note ---
DATE: 01/07/2019 SUBJECTIVE: The patient was supposed to be discharged today; however, his analyzed, culture positive for for which patient now received more than 3 weeks of treatment . vancomycin, but did not receive Bactroban. The patient was placed on Bactroban 2% b.i.d. and can be colonized soon. PHYSICAL EXAMINATION: VITAL SIGNS: Blood pressure is 125/80, his pulse is 105, respirations of 26, and temperature 96.8. HEENT: Eyes were normal. ENT, mucous membranes were moist and intact. NECK: Supple with no JVD without lymph nodes. Tracheostomy site is clean. LUNGS: Clear without rhonchi, rales, or wheezing. Secretions are small, thin, and barros. HEART: Normal sounds with regular beats. There is no S3, S4, or pericardial rub. ABDOMEN: Soft and nontender with normal bowel sounds. Gastrostomy site is clean. EXTREMITIES: Warm without cyanosis, clubbing, or edema. LABORATORY AND DIAGNOSTIC DATA: Hemoglobin is 7.8, hematocrit 24.3 with MCV of 94, WBC of 9.9, and platelets is 225,000. BUN and creatinine are 35 and 0.7 respectively. Her sodium is 137, potassium 4.9, chloride 106, and CO2 is 32. His calcium is 7.5. His phosphorus is 1.6. Bilirubin is 1.9. His BNP is 213. Total protein is 7.8 and albumin is 1.4. IMPRESSION: The patient is hemodynamically stable and afebrile with progressive decline in WBCs. PLAN: The patient will be continued on his current intravenous antibiotic Bactroban and plan to be discharged on 01/09/2019. Repeat laboratory tests will be done in the a.m. Neema Hutchins M.D. DR: PIERCE JOB#: [id number] CC:
[2019-01-08 04:00] VITALS: BP 105/66
--- NOTE | 2019-01-08 04:53 | NUR ---
RESPIRATORY NOTE: PT REMAINED STABLE ON CMV WITH CURRENT SETTINGS. SX PRN. VENT CIRCUIT SECURE AND OUT OF THE WAY. NO S/S OF RESPIRATORY DISTRESS NOTED AT THIS TIME.
[2019-01-08] MEDS: Amikacin 1,000 MG in NS 110 ML IV SCH (05:24)
[2019-01-08 05:56] LABS: HEMATOCRIT 23.1 % (42.0-52.0); HEMOGLOBIN 7.6 G/DL (14.2-18.0); MEAN CORPUSCULAR VOLUME 93 FL (80-99); PLATELET COUNT 278 K/UL (150-450); RED BLOOD COUNT 2.49 M/UL (4.70-6.10); RED CELL DISTRIBUTION WIDTH 16.9 % (11.6-14.8); WHITE BLOOD COUNT 11.8 K/UL (4.8-10.8)
[2019-01-08 06:03] LABS: ANION GAP 10 mmol/L (5-15); BLOOD UREA NITROGEN 27 mg/dL (7-18); CALCIUM 7.8 MG/DL (8.5-10.1); CARBON DIOXIDE 23 MMOL/L (21-32); CHLORIDE 106 MMOL/L (98-107); CREATININE 0.7 MG/DL (0.55-1.30); POTASSIUM 4.6 MMOL/L (3.5-5.1); SODIUM 139 MMOL/L (136-145)
--- NOTE | 2019-01-08 07:24 | NUR ---
NURSE NOTES: Received pt from SHAKIR Rush in stable condition with no cardiopulmonary distress noted. Pt is asleep in bed on trach to vent Portex7 AC 18 TV 500 FiO2 30% Peep 5. GT noted running Glucerna 1.5 at 45cc/hr. Colostomy bag draining stool in RLQ. Suprapubic catheter noted draining yellow urine. Skin alterations noted. Pt has a EDA PICC. Bed is in lowest position, alarm on, side rails up x 2, call light within reach. Will continue to monitor pt.
--- NOTE | 2019-01-08 07:25 | NUR ---
HAND-OFF: Report given to Edita Hope RN.
[2019-01-08 08:00] VITALS: BP 108/65
[2019-01-08] MEDS: Levemir Flexpen SUBQ SCH ×2 (08:06→21:00)
--- NOTE | 2019-01-08 09:05 | Urology Progress Note ---
Assessment/Plan Assessment/Plan 1. Urinary retention with chronic suprapubic tube. 2. Probable neurogenic bladder. 3. UTI colonization. 4. Hematuria. 5. Proteinuria. 6. Cystitis. 7. Renal cyst versus small mass. 8. Scrotal edema. 9. Hydrocele. new SP tube placed 01/04 hand irrigated and do PRN abx as ordered serial renal imaging Subjective Allergies: Coded Allergies: PENICILLINS (Unverified Allergy, Unknown, 02/26/16) POLYMYXIN B (Unverified Allergy, Unknown, 02/26/16) VANCOMYCIN (Unverified Allergy, Unknown, 02/26/16) Subjective all noted, new sp tube draining ok, mild leakage Objective Last 24 Hour Vital Signs Date Time Temp Pulse Resp B/P (MAP) Pulse Ox O2 Delivery O2 Flow Rate FiO2 01/08/19 08:00 30 01/08/19 08:00 98.2 110 20 108/65 (79) 99 01/08/19 08:00 Mechanical Ventilator 01/08/19 07:25 111 23 30 01/08/19 04:53 112 28 30 01/08/19 04:00 30 01/08/19 04:00 Mechanical Ventilator 01/08/19 04:00 98.2 114 21 105/66 (79) 100 01/08/19 03:35 111 01/08/19 02:59 109 25 30 01/08/19 00:52 107 24 30 01/08/19 00:00 97.5 109 22 114/72 (86) 98 01/08/19 00:00 Mechanical Ventilator 01/07/19 23:39 109 01/07/19 23:00 109 21 30 01/07/19 20:55 104 26 30 01/07/19 20:00 96.8 103 26 125/80 (95) 99 01/07/19 20:00 Mechanical Ventilator 01/07/19 20:00 30 01/07/19 19:26 102 01/07/19 18:49 103 25 30 01/07/19 16:32 106 21 30 01/07/19 16:00 30 01/07/19 16:00 Mechanical Ventilator 01/07/19 16:00 97.9 101 24 144/67 (92) 100 01/07/19 15:29 101 01/07/19 15:11 103 25 30 01/07/19 13:25 99 25 30 01/07/19 12:04 103 01/07/19 12:00 30 01/07/19 12:00 98.1 107 24 95/63 (74) 100 01/07/19 12:00 Mechanical Ventilator 01/07/19 11:20 104 24 30 Intake and Output 01/07/19 01/08/19 19:00 07:00 Intake Total 350 ml 1099 ml Output Total 1275 ml 855 ml Balance -925 ml 244 ml Intake Free Water 150 ml 380 ml IV Total 110 ml 224 ml Tube Feeding 90 ml 495 ml Output Urine Total 1000 ml 680 ml Stool Total 275 ml 175 ml Microbiology Date/Time Source Procedure Growth Status 12/30/18 17:50 Blood Blood Culture - Final NO GROWTH AFTER 5 DAYS Complete 12/28/18 04:30 Other(Specify in comment) Catheter Tip Culture - Final NO GROWTH AFTER 4 DAYS Complete 12/20/18 13:00 Sputum Induced Gram Stain - Final Complete 12/20/18 13:00 Sputum Culture - Final Staphylococcus Aureus - Mrsa Usual Respiratory Shelly Complete 12/30/18 17:37 Stool Clostridium difficile Toxin Assay - Final Complete 12/26/18 04:00 Urine,Clean Catch Urine Culture - Final Meera Albicans Complete 12/30/18 17:37 Sacral Wound Gram Stain - Final Complete 12/30/18 17:37 Wound Culture - Final K.pneumoniae Carbapenem Resist Escherichia Coli - Esbl Proteus Mirabilis Complete Current Medications Medications (Trade) Dose Ordered Sig/Fransisco Route PRN Reason Start Time Stop Time Status Last Admin Dose Admin Amikacin Protocol (Amikacin pharmacy to dose) 1 ea DAILY PRN MISC Per rx protocol 01/03/19 16:30 02/02/19 16:29 Amikacin Sulfate 1000 mg/Sodium Chloride 114 ml @ 228 mls/hr Q36H IV 01/05/19 06:00 01/12/19 05:59 01/08/19 05:24 Aztreonam 2 gm/ Dextrose 110 ml @ 220 mls/hr Q8H IVPB 01/02/19 16:00 01/09/19 15:59 01/08/19 07:55 Calcitonin [place] (Miacalcin) 1 sprays DAILY NASAL 12/28/18 09:00 01/24/19 10:59 01/08/19 07:59 Chlorhexidine Gluconate (Sandra-Hex 2%) 1 applic DAILY@2000 TOPIC 12/28/18 20:00 01/09/19 19:59 01/07/19 19:46 Dextrose (Dextrose 50%) 25 ml Q30M PRN IV Hypoglycemia 01/01/19 00:15 01/31/19 00:14 Dextrose (Dextrose 50%) 50 ml Q30M PRN IV Hypoglycemia 01/01/19 00:15 01/31/19 00:14 Diltiazem HCl (Cardizem) 10 mg BIDPRN PRN IVP FOR HR >140 12/28/18 08:45 01/11/19 08:44 Fenofibrate (Tricor) 145 mg DAILY ORAL 12/31/18 09:00 01/30/19 08:59 01/08/19 07:55 Gemfibrozil (Lopid) 600 mg TWICE A DAY GT 12/28/18 09:00 01/14/19 10:14 01/08/19 07:55 Insulin Aspart (NovoLOG) EVERY 6 HOURS SUBQ 01/01/19 06:00 01/31/19 05:59 01/08/19 05:24 Insulin Detemir (Levemir) 20 units Q12HR SUBQ 01/02/19 21:00 01/27/19 13:59 01/08/19 08:06 Lansoprazole (Prevacid) 30 mg BID GT 12/28/18 09:00 01/16/19 08:59 01/08/19 07:55 Mupirocin (Bactroban Oint) 1 applic BID TOPIC 01/08/19 09:00 01/13/19 08:59 Nateglinide (Starlix) 120 mg Q8HR ORAL 12/28/18 06:00 01/17/19 21:59 01/08/19 05:24 Laboratory Tests 01/08/19 04:00: White Blood Count 11.8H, Red Blood Count 2.49L, Hemoglobin 7.6L, Hematocrit 23.1L, Mean Corpuscular Volume 93, Mean Corpuscular Hemoglobin 30.4, Mean Corpuscular Hemoglobin Concent 32.7, Red Cell Distribution Width 16.9H, Platelet Count 278, Mean Platelet Volume 8.5, Neutrophils (%) (Auto) , Lymphocytes (%) (Auto) , Monocytes (%) (Auto) , Eosinophils (%) (Auto) , Basophils (%) (Auto) , Sodium Level 139, Potassium Level 4.6, Chloride Level 106 , Carbon Dioxide Level 23, Anion Gap 10, Blood Urea Nitrogen 27H, Creatinine 0.7 , Estimat Glomerular Filtration Rate , Glucose Level 94, Calcium Level 7.8L Height (Feet): 5 Height (Inches): 8.00 Weight (Pounds): 143 Objective exam stable, urine yellow with debris Ramez Gonzalez MD Jan 08, 2019 09:05
--- NOTE | 2019-01-08 09:15 | NUR ---
Left a message for Dr Hutchins regarding lack of VTE prophylaxis. Awaiting call back.
--- NOTE | 2019-01-08 11:25 | NUR ---
NURSE NOTES: Received call back from Dr. Hutchins to put in order for pharmacological VTE prophylaxis. Will place order now.
--- NOTE | 2019-01-08 11:57 | Pulmonolgy Critical Care Note ---
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 Respiratory: monitor respiratory rate, adjust FIO2, CXR Cardiac: continue to monitor HR/BP Renal: F/U I&O, keep IV fluid, check electrolytes Infectious Disease: check cultures Gastrointestinal: continue feedings/current rate Endocrine: monitor blood sugar Hematologic: monitor H/H Neurologic: PRN Ativan Affect: PRN ativan Prophylaxis: Heparin Time Spent (Minutes): 30 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 Critical Care - Objective Last 24 Hour Vital Signs Date Time Temp Pulse Resp B/P (MAP) Pulse Ox O2 Delivery O2 Flow Rate FiO2 01/08/19 11:05 116 30 30 01/08/19 09:15 105 24 30 01/08/19 08:00 30 01/08/19 08:00 98.2 110 20 108/65 (79) 99 01/08/19 08:00 Mechanical Ventilator 01/08/19 08:00 111 01/08/19 07:25 111 23 30 01/08/19 04:53 112 28 30 01/08/19 04:00 30 01/08/19 04:00 Mechanical Ventilator 01/08/19 04:00 98.2 114 21 105/66 (79) 100 01/08/19 03:35 111 01/08/19 02:59 109 25 30 01/08/19 00:52 107 24 30 01/08/19 00:00 97.5 109 22 114/72 (86) 98 01/08/19 00:00 Mechanical Ventilator 01/07/19 23:39 109 01/07/19 23:00 109 21 30 01/07/19 20:55 104 26 30 01/07/19 20:00 96.8 103 26 125/80 (95) 99 01/07/19 20:00 Mechanical Ventilator 01/07/19 20:00 30 01/07/19 19:26 102 01/07/19 18:49 103 25 30 01/07/19 16:32 106 21 30 01/07/19 16:00 30 01/07/19 16:00 Mechanical Ventilator 01/07/19 16:00 97.9 101 24 144/67 (92) 100 01/07/19 15:29 101 01/07/19 15:11 103 25 30 01/07/19 13:25 99 25 30 01/07/19 12:04 103 01/07/19 12:00 30 01/07/19 12:00 98.1 107 24 95/63 (74) 100 01/07/19 12:00 Mechanical Ventilator Status: awake Condition: critical HEENT: atraumatic, normocephalic Lungs: chest wall tender Heart: HR/BP stable Abdomen: soft, non-tender Extremities: no C/C/E Decubiti: location, stage Accucheck: 176 Critical Care - Subjective ROS Limited/Unobtainable: No Condition: critical EKG Rhythm: Sinus Rhythm FI02: 30 Vent Support Breath Rate: 18 Vent Support Mode: AC Vent Tidal Volume: 500 Sputum Amount: Small PEEP: 5.0 PIP: 34 Tube Feeding Amount: 45 I&O: Intake and Output 01/07/19 01/08/19 19:00 07:00 Intake Total 350 ml 1099 ml Output Total 1275 ml 855 ml Balance -925 ml 244 ml Intake Free Water 150 ml 380 ml IV Total 110 ml 224 ml Tube Feeding 90 ml 495 ml Output Urine Total 1000 ml 680 ml Stool Total 275 ml 175 ml CXR: no change Labs: Laboratory Tests Test 01/08/19 04:00 White Blood Count 11.8 K/UL (4.8-10.8) H Red Blood Count 2.49 M/UL (4.70-6.10) L Hemoglobin 7.6 G/DL (14.2-18.0) L Hematocrit 23.1 % (42.0-52.0) L Mean Corpuscular Volume 93 FL (80-99) Mean Corpuscular Hemoglobin 30.4 PG (27.0-31.0) Mean Corpuscular Hemoglobin Concent 32.7 G/DL (32.0-36.0) Red Cell Distribution Width 16.9 % (11.6-14.8) H Platelet Count 278 K/UL (150-450) Mean Platelet Volume 8.5 FL (6.5-10.1) Neutrophils (%) (Auto) % (45.0-75.0) Lymphocytes (%) (Auto) % (20.0-45.0) Monocytes (%) (Auto) % (1.0-10.0) Eosinophils (%) (Auto) % (0.0-3.0) Basophils (%) (Auto) % (0.0-2.0) Sodium Level 139 MMOL/L (136-145) Potassium Level 4.6 MMOL/L (3.5-5.1) Chloride Level 106 MMOL/L (98-107) Carbon Dioxide Level 23 MMOL/L (21-32) Anion Gap 10 mmol/L (5-15) Blood Urea Nitrogen 27 mg/dL (7-18) H Creatinine 0.7 MG/DL (0.55-1.30) Estimat Glomerular Filtration Rate mL/min (>60) Glucose Level 94 MG/DL (74-106) Calcium Level 7.8 MG/DL (8.5-10.1) Abhishek Peacock MD Jan 08, 2019 11:57
--- NOTE | 2019-01-08 11:59 | NUR ---
Clarified Heparin order with Dr. Guerra (Pt has active bleeding wounds and Hgb 7.6). Dr Guerra ordered to d/c Hep and put in order for Venous Duplex and SCDs. Will execute orders.
[2019-01-08 12:00] VITALS: BP 98/62
--- NOTE | 2019-01-08 13:30 | Nephrology Progress Note ---
Assessment/Plan Problem List: (1) Hypercalcemia (2) ATN (acute tubular necrosis) (3) Anemia (4) Feeding by G-tube (5) Acute and chronic respiratory failure (6) UTI (urinary tract infection) (7) Hyponatremia Assessment in [facility] - Glucose better controlled Periodic high K Patient have mainly Pre Renal Azotemia with possible underlying CKD- Low Na partly depletional, partly due to Hyperglycemia RESOLVED Other conditions as outlined: (1) Acute and chronic respiratory failure ([id number]) (2) Sepsis (3) Malnutrition and HypoAlbuminemia (4) UTI (urinary tract infection) (5) Anemia (6) Diabetes mellitus, type II (7) Colostomy care (8) Cerebral vascular disease (9) Decubitus ulcer of sacral region, stage 2 (10) Feeding by G-tube (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 Plan K & Phos supplement as needed Levemir and adjust dose Kayexelate for high K as needed Transfuse as needed Stop Digoxin stop Atenolol Stop Cardiazem Pressors as needed Albumin bolus as needed AREDIA 90 mg for HYPERCALCEMIA on 12/23 - Calcium level will redose On Starlix feeding to glucerna Keep electrolytes in check Keep BS and BP in check per consultants Objective Objective Last 24 Hour Vital Signs Date Time Temp Pulse Resp B/P (MAP) Pulse Ox O2 Delivery O2 Flow Rate FiO2 01/08/19 12:00 30 01/08/19 12:00 Mechanical Ventilator 01/08/19 12:00 98.1 111 20 98/62 (74) 95 01/08/19 11:05 116 30 30 01/08/19 09:15 105 24 30 01/08/19 08:00 30 01/08/19 08:00 98.2 110 20 108/65 (79) 99 01/08/19 08:00 Mechanical Ventilator 01/08/19 08:00 111 01/08/19 07:25 111 23 30 01/08/19 04:53 112 28 30 01/08/19 04:00 30 01/08/19 04:00 Mechanical Ventilator 01/08/19 04:00 98.2 114 21 105/66 (79) 100 01/08/19 03:35 111 01/08/19 02:59 109 25 30 01/08/19 00:52 107 24 30 01/08/19 00:00 97.5 109 22 114/72 (86) 98 01/08/19 00:00 Mechanical Ventilator 01/07/19 23:39 109 01/07/19 23:00 109 21 30 01/07/19 20:55 104 26 30 01/07/19 20:00 96.8 103 26 125/80 (95) 99 01/07/19 20:00 Mechanical Ventilator 01/07/19 20:00 30 01/07/19 19:26 102 01/07/19 18:49 103 25 30 01/07/19 16:32 106 21 30 01/07/19 16:00 30 01/07/19 16:00 Mechanical Ventilator 01/07/19 16:00 97.9 101 24 144/67 (92) 100 01/07/19 15:29 101 01/07/19 15:11 103 25 30 Intake and Output 01/07/19 01/08/19 18:59 06:59 Intake Total 155 ml 1294 ml Output Total 1275 ml 855 ml Balance -1120 ml 439 ml Intake Free Water 530 ml IV Total 110 ml 224 ml Tube Feeding 45 ml 540 ml Output Urine Total 1000 ml 680 ml Stool Total 275 ml 175 ml Laboratory Tests 01/08/19 04:00: White Blood Count 11.8H, Red Blood Count 2.49L, Hemoglobin 7.6L, Hematocrit 23.1L, Mean Corpuscular Volume 93, Mean Corpuscular Hemoglobin 30.4, Mean Corpuscular Hemoglobin Concent 32.7, Red Cell Distribution Width 16.9H, Platelet Count 278, Mean Platelet Volume 8.5, Neutrophils (%) (Auto) , Lymphocytes (%) (Auto) , Monocytes (%) (Auto) , Eosinophils (%) (Auto) , Basophils (%) (Auto) , Sodium Level 139, Potassium Level 4.6, Chloride Level 106 , Carbon Dioxide Level 23, Anion Gap 10, Blood Urea Nitrogen 27H, Creatinine 0.7 , Estimat Glomerular Filtration Rate , Glucose Level 94, Calcium Level 7.8L Height (Feet): 5 Height (Inches): 8.00 Weight (Pounds): 143 General Appearance: no apparent distress Cardiovascular: tachycardia Respiratory/Chest: decreased breath sounds Abdomen: distended Objective no change Migue Moreland MD Jan 08, 2019 13:30
[2019-01-08] MEDS ORDERED: Albuterol/Ipratropium 3ml neb HHN PRN (14:00)
[2019-01-08 16:00] VITALS: BP 91/62
--- NOTE | 2019-01-08 18:13 | Surgery Progress Note ---
Surgery Progress Note Subjective Additional Comments wbc 11k. laying comfortable. exam unchanged. slight drainage around g tube. cultures sent. wounds stable. Objective Last 24 Hour Vital Signs Date Time Temp Pulse Resp B/P (MAP) Pulse Ox O2 Delivery O2 Flow Rate FiO2 01/08/19 16:50 110 23 30 01/08/19 16:00 30 01/08/19 16:00 Mechanical Ventilator 01/08/19 16:00 97.5 103 23 91/62 (72) 98 01/08/19 15:22 105 24 30 01/08/19 13:15 108 27 30 01/08/19 12:00 109 01/08/19 12:00 30 01/08/19 12:00 Mechanical Ventilator 01/08/19 12:00 98.1 111 20 98/62 (74) 95 01/08/19 11:05 116 30 30 01/08/19 09:15 105 24 30 01/08/19 08:00 30 01/08/19 08:00 98.2 110 20 108/65 (79) 99 01/08/19 08:00 Mechanical Ventilator 01/08/19 08:00 111 01/08/19 07:25 111 23 30 01/08/19 04:53 112 28 30 01/08/19 04:00 30 01/08/19 04:00 Mechanical Ventilator 01/08/19 04:00 98.2 114 21 105/66 (79) 100 01/08/19 03:35 111 01/08/19 02:59 109 25 30 01/08/19 00:52 107 24 30 01/08/19 00:00 97.5 109 22 114/72 (86) 98 01/08/19 00:00 Mechanical Ventilator 01/07/19 23:39 109 01/07/19 23:00 109 21 30 01/07/19 20:55 104 26 30 01/07/19 20:00 96.8 103 26 125/80 (95) 99 01/07/19 20:00 Mechanical Ventilator 01/07/19 20:00 30 01/07/19 19:26 102 01/07/19 18:49 103 25 30 I&O Intake and Output 01/07/19 01/08/19 18:59 06:59 Intake Total 155 ml 1294 ml Output Total 1275 ml 855 ml Balance -1120 ml 439 ml Intake Free Water 530 ml IV Total 110 ml 224 ml Tube Feeding 45 ml 540 ml Output Urine Total 1000 ml 680 ml Stool Total 275 ml 175 ml Dressing: saturated Wound: other Drains: other Cardiovascular: RSR Respiratory: decreased breath sounds Abdomen: soft, present bowel sounds, non-distended Extremities: no tenderness, no cyanosis, other Laboratory Tests Test 01/08/19 04:00 White Blood Count 11.8 K/UL (4.8-10.8) H Red Blood Count 2.49 M/UL (4.70-6.10) L Hemoglobin 7.6 G/DL (14.2-18.0) L Hematocrit 23.1 % (42.0-52.0) L Mean Corpuscular Volume 93 FL (80-99) Mean Corpuscular Hemoglobin 30.4 PG (27.0-31.0) Mean Corpuscular Hemoglobin Concent 32.7 G/DL (32.0-36.0) Red Cell Distribution Width 16.9 % (11.6-14.8) H Platelet Count 278 K/UL (150-450) Mean Platelet Volume 8.5 FL (6.5-10.1) Neutrophils (%) (Auto) % (45.0-75.0) Lymphocytes (%) (Auto) % (20.0-45.0) Monocytes (%) (Auto) % (1.0-10.0) Eosinophils (%) (Auto) % (0.0-3.0) Basophils (%) (Auto) % (0.0-2.0) Sodium Level 139 MMOL/L (136-145) Potassium Level 4.6 MMOL/L (3.5-5.1) Chloride Level 106 MMOL/L (98-107) Carbon Dioxide Level 23 MMOL/L (21-32) Anion Gap 10 mmol/L (5-15) Blood Urea Nitrogen 27 mg/dL (7-18) H Creatinine 0.7 MG/DL (0.55-1.30) Estimat Glomerular Filtration Rate mL/min (>60) Glucose Level 94 MG/DL (74-106) Calcium Level 7.8 MG/DL (8.5-10.1) L Plan Problems: (1) Decubitus skin ulcer Assessment & Plan: Pt presented on admission with multiple pressure injuries and Skin erosion. Pt has trach and no evidence of skin breakdown noted under trach collar. Unstageable pressure injury noted to L earlobe. Stable dry brown eschar noted(L) 0.7cm x (W)0.5cm. Gross erythema with denudement and multiple scattered partial thickness wounds noted to buttocks and base of scrotum extending into both posterior upper thighs.Moderate amt sanguineous exudate noted upon removal of drsgs. 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 Moderate amt sanguineous exudate noted (L)3cm x (W)1cm x (D)7.4cm.Erythema periwound secondary to skin erosions. Partially opened DTPI L ischium .Base of wound purple,fluctuant with red borders.Open areas at base of this wound are beefy red in colour.Moderate amt sanguineous exudate noted.(L)7cm x (W)6.8cm. DTPI R ischium.Wound is fluctuant-purple in center with surrounding Maroon colour, and is partially opened with a small area of 5% that is necrotic.(L) 6.5cm x (W)5.5cm. Red skin erosion periwound. Partial thickness pressure injury L hip. Base of wound is moist -viable. Edges adherent and dry. Periwound without erythema or induration(L)1.2cm x (W)0.5cm. Elongate partial thickness wound posterior upper L thigh .Base of wound is moist -viable .Small amt sanguineous exudate noted. (+) maceration along borders. Erythema without induration or elevation in skin temp noted.(L)2cm x (W )9.4cm. DTPI noted to R heel .Base of injury is indurated and maroon in colour. Periwound is firm without erythema. (L)1.5cm x (W)1cm.R heel without evidence of skin breakdown. UPDATE with Full thickness pressure injury sacrum resolving. Less depth noted to tunnel, but base of wound obscured due to size and shape of wound (L)2cm x (W )0.9cm with tunneling at 12 by 3cm. Full thickness wound R ischium with 60% loose soft necrosis. 40% slough with additional necrosis along edges and periwound .No odor noted. (L)6cm x (W)6.3cm x (D)3.2cm undermining 9-12 by 3.1cm @11O'Clock. MASD with Gross erythema with skin erosion entire buttocks extending down into both ischial and both upper thighs including scrotum and bilat groin areas. Scattered satellite lesions with small amt bleeding from these areas. Small area of dry eschar noted to L buttocks (L)1.9cm x (W)2cm. Reabsorbed DTPI with stable dry brown eschar R heel (L)1.5cm x (W)2.5cm Periwound without erythema ,induration or fluctuance. Small dry scab noted to L ear without erythema periwound. No new skin concerns noted. Tx.Plan: Cleanse Sacrum with Saline. Loosely pack with Hydrogel impregnated Kerlix. Apply Triad Paste periwound. Cover with ABD pad. Daily and prn. Cleanse R and L ischial wounds with Saline. Apply Moisture Barrier Paste.Cover with abd pads Daily and prn. Apply Moisture Barrier to skin erosions on buttocks,scrotum, and posterior aspects of both thighs.Cover with ABD pad daily and prn. Cleanse wound L hip with Saline. Apply Moisture Barrier paste .Cover with Optifoam drsg Daily and prn. Cleanse wound posterior upper L thigh with saline .Apply Hydrogel. Cover with Optifoam drsg Daily and prn. Apply Cavilon Skin Barrier to L earlobe daily. Please monitor. Apply Cavilon Skin Barrier to L heel. Cover with Optifoam drsg. Change every 7 days and prn. Apply Cavilon Skin Barrier to R heel. Cover with Optifoam drsg .Change every 7 days and prn. Air fluidized mattress. Reposition every 2hours or as tolerated. Off-load heels with pillow. (2) Acute and chronic respiratory failure Assessment & Plan: cont with breathing treatments trach stable trach site clean will change dressings daily (3) Acute pancreatitis Assessment & Plan: Findings consistent with uncomplicated nonnecrotizing acute pancreatitis. No evidence of associated peripancreatic abscess Surgical changes as described, including right lower quadrant ileostomy, subtotal colectomy with Haroldo procedure. Wall thickening of the Haroldo pouch. This could indicate inflammation. However, this is also present on both of the prior 2 exams and may be baseline for this patient Evidence of mild anasarca, with edema of the subcutaneous fat. This is a new finding Chronic appearing decubitus changes of the bilateral ischia. Correlate with clinical findings Complete left lower lobe consolidation. This is similar to both of the prior CTs , and is likely a chronic finding. There is progressive chronic interstitial fibrotic change involving the right middle lobe. There is also right lower lobe granulomatous calcification Extensive pulmonary parenchymal opacities bilaterally may reflect acute inflammation/infection, edema, progressive chronic scarring, or combination of the above. These are considerably more extensive than on the prior study Trace bilateral pleural fluid New finding of nonobstructive right renal collecting system calculs 4 mm calculus within the bladder lumen. This may represent a bladder calculus, a calculus and left ureteral orifice, or recently passed stone. If either of the latter, no evidence of resultant hydronephrosis or hydroureter Suprapubic catheter. This is a new finding since the 2016 exams. Interim removal of previously demonstrated Bledsoe catheter Gastrostomy Left renal cysts. Subcentimeter low-attenuation right renal lesions, too small to characterize, most likely benign simple cysts. No further follow-up necessary elevated amylase/lipase related to lipids leukocytosis GNR Bacteremia transfused anemia Unfortunately patient not able to participate in exam and difficult to identify if clinically pancreatitis or just laboratory data. Recent CT with uncomplicated pancreatitis but enzymes still remain elevated. Patient tolerated tube feeds. Patient with gram-negative belle bacteremia likely from UTI. Patient remains febrile intermittently with worsening leukocytosis on IV antibiotics. -no acute surgical intervention planned -transfuse as per hematology -Abx as per ID -trend lip/[place] - recent finding based on CT given patient cannot given history or participate in exam. CT with uncomplicated pancreatitis. okay for diet / feeds for now. IV fluids Javier Ricardo Jan 08, 2019 18:13
--- NOTE | 2019-01-08 19:30 | NUR ---
HAND-OFF: Report given to Sina Berg RN. Pt in stable condition.
--- NOTE | 2019-01-08 19:30 | NUR ---
NURSE NOTES: Received Pt is sleeping on the bed. Trach to Vent dependent setting with ACl 18, T: 500, P:5, FiO2 30% and SaO2 100% noted. Given tracheal and oral suction. Provided oral care. On tele monitor with ST and HR: 105's. On G-tube feeding with Glucerna 1.5@45cc/hr and tolerated well and no residual noted. Pt has colostomy and site is intact and noted brownish BM. On suprapubic cath and patent and drainage well. Dressing is clean and dry on wound area. Changed position. Dressing is clean and dry on PICC area and no sign of infiltration noted. Placed fall precaution. Will continue to care plan.
--- NOTE | 2019-01-08 19:34 | General Progress Note ---
Assessment/Plan Assessment/Plan Assessment/Recs: # Leukocytosis/Elevated white blood cell count,potentially due to infection with gram negative bacteremia, with uti and on abx --> have reviewed peripheral smear and bandemia/neutrophilia noted on initial smear was noted --> continue antibiotics if they have been started by ID team, titrate and change as required --> monitor for resolution ---> WBC trend: 11-->16-->15-->14-->11-->12-->10.8-->11-->12-->11-->16-->14-->16 -->13-->13-->11-->12 # Anemia of chronic disease due to underlying chronic medical issues, multifactorial --> Anemia workup has been reviewed, Ferritin [id number] --> No evidence of hemolysis is noted, peripheral smear reviewed --> Hgb goal >7. Transfuse prn. --> Epogen or iron at this time is not indicated --> Medications have been reviewed --> HGB trend: 7.8-->7.6-->6.2-->6.4->7.1-->8.7-->9.1-->8.4-->7.8-->9.4-->7.3--> 10.6-->10.1-->11-->9.3-->9.9-->9-->8-->7.6 --> received prbc 12/25 # Thrombocytopenia - potential causes multifactorial, evaluate liver and viral etiologies to begin, also could be related to underlying medications --> Hep panel and HIV negative --> US abd to evaluate for cirrhosis and hsm reviewed --> Peripheral smear ordered to evaluate for blasts/schistocytes does not reveal any --> abx and other meds have been reviewed --> ok for ppx if plt >50k w/ either heparin or lovenox # Hypercalcemia potentailly related to dehydration --> s/p aredia as per renal --> pth reviewed --> trend Ca as needed # Severe prerenal azotemia, on ivf --> improve po oral intake and consider appetite stimulant # Severe Sepsis, CXR: Probable small left pleural effusion --> also evident on prior study 11/22/2017 --> appreciate ID recs # Bacteremia, likely from UTI, PNA --> tolerating abx well --> as per pulm # Decub ulceration --> as per surg The timing of this note does not necessarily reflect the time of the patient was seen. Greatly appreciate consultation! Subjective Allergies: Coded Allergies: PENICILLINS (Unverified Allergy, Unknown, 02/26/16) POLYMYXIN B (Unverified Allergy, Unknown, 02/26/16) VANCOMYCIN (Unverified Allergy, Unknown, 02/26/16) Subjective 12/11: seen by bedside, vent dependent, leukocytosis, 11, hgb 7, will transfuse, no events 12/12: awake, comfortable wbc trending up at 16, no events 12/13: hgb 6.4, receiving transfusion, , wbc remains elevated. no acute events 12/14: seen by bedside, awake, comfortable low grade fever, wbc remains elevated at 15, bacteremia on IV Abx, hgb 7.1, will transfuse as needed 12/15: Wbc remains elevated, no events reported, hgb trending up 12/16: seen by bedside, awake, comfortable, no events 12/18: seen in the room, on vent and trach, no events 12/19: reviewed cbc and appears relatively stable, on starlix, remains in sdu 12/20: seen by bedside, on vent, mild leukocytosis 12/21: Pt is resting , on vent, wbc trending up , no events 12/22: exam is essentially unchanged, on abx, have discussed with pcp, rn, wbc better 12/23: transfuse wbc 11, on abx 12/24: no events to report, on vent/trach care, without issue 12/26: in icu, resting comfortanly, off pressors 12/27: tolerating feeding and vent well, no issues, ca reviewed 12/28: no events, remains nonverbal, without complaints 12/29: no events, on vent/trach, nonverbal, no fevers 12/30: no events, labs have been reviewed, cbc noted, wbc higher 01/01: no events, on abx, wbc better, hgb lower, with nausea, on zofran 01/02: less abdominal pain, on zofran on prn basis, no f/c 4/2: no events to report, trach to vent, labs reviewed, no complaints /: wounds examined, is trach to vent, no major issues 01/05: monitoring cbc, no acute bleeding episodes, remains in the sdu 45: vent setting essentially unchanged, breathing normal, hgb 8.5 01/08: was bleeding this am, heparin was discontinued, scds ordered Objective Last 24 Hour Vital Signs Date Time Temp Pulse Resp B/P (MAP) Pulse Ox O2 Delivery O2 Flow Rate FiO2 01/08/19 16:50 110 23 30 01/08/19 16:00 104 01/08/19 16:00 30 01/08/19 16:00 Mechanical Ventilator 01/08/19 16:00 97.5 103 23 91/62 (72) 98 01/08/19 15:22 105 24 30 01/08/19 13:15 108 27 30 01/08/19 12:00 109 01/08/19 12:00 30 01/08/19 12:00 Mechanical Ventilator 01/08/19 12:00 98.1 111 20 98/62 (74) 95 01/08/19 11:05 116 30 30 01/08/19 09:15 105 24 30 01/08/19 08:00 30 01/08/19 08:00 98.2 110 20 108/65 (79) 99 01/08/19 08:00 Mechanical Ventilator 01/08/19 08:00 111 01/08/19 07:25 111 23 30 01/08/19 04:53 112 28 30 01/08/19 04:00 30 01/08/19 04:00 Mechanical Ventilator 01/08/19 04:00 98.2 114 21 105/66 (79) 100 01/08/19 03:35 111 01/08/19 02:59 109 25 30 01/08/19 00:52 107 24 30 01/08/19 00:00 97.5 109 22 114/72 (86) 98 01/08/19 00:00 Mechanical Ventilator 01/07/19 23:39 109 01/07/19 23:00 109 21 30 01/07/19 20:55 104 26 30 01/07/19 20:00 96.8 103 26 125/80 (95) 99 01/07/19 20:00 Mechanical Ventilator 01/07/19 20:00 30 Intake and Output 01/07/19 01/08/19 18:59 06:59 Intake Total 155 ml 1294 ml Output Total 1275 ml 855 ml Balance -1120 ml 439 ml Intake Free Water 530 ml IV Total 110 ml 224 ml Tube Feeding 45 ml 540 ml Output Urine Total 1000 ml 680 ml Stool Total 275 ml 175 ml Laboratory Tests 01/08/19 04:00: White Blood Count 11.8H, Red Blood Count 2.49L, Hemoglobin 7.6L, Hematocrit 23.1L, Mean Corpuscular Volume 93, Mean Corpuscular Hemoglobin 30.4, Mean Corpuscular Hemoglobin Concent 32.7, Red Cell Distribution Width 16.9H, Platelet Count 278, Mean Platelet Volume 8.5, Neutrophils (%) (Auto) , Lymphocytes (%) (Auto) , Monocytes (%) (Auto) , Eosinophils (%) (Auto) , Basophils (%) (Auto) , Sodium Level 139, Potassium Level 4.6, Chloride Level 106 , Carbon Dioxide Level 23, Anion Gap 10, Blood Urea Nitrogen 27H, Creatinine 0.7 , Estimat Glomerular Filtration Rate , Glucose Level 94, Calcium Level 7.8L Height (Feet): 5 Height (Inches): 8.00 Weight (Pounds): 143 Objective HEENT: Eyes were normal. ENT, mucous membranes not dehydrated. NECK: Supple. There was no goiter. No mass. No lad LUNGS: Clear. Vent++/trach HEART: PMI was in the fifth left intercostal space in midclavicular line. There was normal S1 and normal S2. There was no murmur. no s3/s4 ABDOMEN: Soft and nontender without organomegaly. palpable. Normal bowel sounds without bruits. There was no guarding. ++ suprapubic catheter EXTREMITIES: No cyanosis, no clubbing, and no edema. Extremities warm. Adarsh Kim MD Jan 08, 2019 19:34
[2019-01-08 20:00] VITALS: BP 97/60
[2019-01-08] MEDS: Dyna-Hex 2% Top Sol 2oz TOPIC SCH (20:19)
[2019-01-08] MEDS ORDERED: Heparin 5000 units/ml inj SUBQ SCH (21:00)
[2019-01-09] VITALS: BP 101/66
[2019-01-09] MEDS: NovoLOG Insulin Flexpen SUBQ SCH ×5 (00:09→23:04)
[2019-01-09] MEDS: Aztreonam Inj 2 GM in D5W 110 ML IVPB SCH ×4 (00:10→23:03)
[2019-01-09 04:00] VITALS: BP 113/69
[2019-01-09 05:22] LABS: HEMATOCRIT 23.8 % (42.0-52.0); HEMOGLOBIN 7.7 G/DL (14.2-18.0); MEAN CORPUSCULAR VOLUME 94 FL (80-99); PLATELET COUNT 279 K/UL (150-450); RED BLOOD COUNT 2.52 M/UL (4.70-6.10); RED CELL DISTRIBUTION WIDTH 17.5 % (11.6-14.8); WHITE BLOOD COUNT 8.4 K/UL (4.8-10.8)
[2019-01-09 05:33] LABS: ANION GAP 11 mmol/L (5-15); BLOOD UREA NITROGEN 25 mg/dL (7-18); CARBON DIOXIDE 21 MMOL/L (21-32); CHLORIDE 105 MMOL/L (98-107); CREATININE 0.7 MG/DL (0.55-1.30); POTASSIUM 5.1 MMOL/L (3.5-5.1); SODIUM 137 MMOL/L (136-145)
--- NOTE | 2019-01-09 07:10 | NUR ---
HAND-OFF: Report given to SHAKIR Hope. Pt is resting on the bed and no sign of acute distress noted. Tolerated well with current Vent setting.
--- NOTE | 2019-01-09 07:11 | NUR ---
NURSE NOTES: Received pt from Sina Berg RN in stable condition with no cardiopulmonary distress noted. Pt is asleep in bed on trach to vent Portex7 AC 18 TV 500 FiO2 30% Peep 5. GT noted running Glucerna 1.5 at 45cc/hr. Colostomy bag draining stool in RLQ. Suprapubic catheter noted draining yellow urine. Skin alterations noted. Pt has a EDA PICC. Bed is in lowest position, alarm on, side rails up x 2, call light within reach. Will continue to monitor pt.
--- NOTE | 2019-01-09 07:40 | Urology Progress Note ---
Assessment/Plan Assessment/Plan 1. Urinary retention with chronic suprapubic tube. 2. Probable neurogenic bladder. 3. UTI colonization. 4. Hematuria. 5. Proteinuria. 6. Cystitis. 7. Renal cyst versus small mass. 8. Scrotal edema. 9. Hydrocele. new SP tube placed 4/3 hand irrigate PRN abx as ordered serial renal imaging Subjective Allergies: Coded Allergies: PENICILLINS (Unverified Allergy, Unknown, 02/26/16) POLYMYXIN B (Unverified Allergy, Unknown, 02/26/16) VANCOMYCIN (Unverified Allergy, Unknown, 02/26/16) Subjective all noted, new sp tube draining ok, mild leakage Objective Last 24 Hour Vital Signs Date Time Temp Pulse Resp B/P (MAP) Pulse Ox O2 Delivery O2 Flow Rate FiO2 01/09/19 04:58 102 20 30 01/09/19 04:00 Mechanical Ventilator 01/09/19 04:00 109 01/09/19 04:00 97.0 111 23 113/69 (84) 99 01/09/19 04:00 30 01/09/19 02:53 103 26 30 01/09/19 01:00 104 22 30 01/09/19 00:00 98.1 108 23 101/66 (78) 98 01/09/19 00:00 Mechanical Ventilator 01/09/19 00:00 103 01/09/19 00:00 30 01/08/19 23:24 106 21 30 01/08/19 21:23 102 20 30 01/08/19 20:00 30 01/08/19 20:00 Mechanical Ventilator 01/08/19 20:00 97.5 103 23 97/60 (72) 98 01/08/19 20:00 105 01/08/19 18:39 104 28 30 01/08/19 16:50 110 23 30 01/08/19 16:00 104 01/08/19 16:00 30 01/08/19 16:00 Mechanical Ventilator 01/08/19 16:00 97.5 103 23 91/62 (72) 98 01/08/19 15:22 105 24 30 01/08/19 13:15 108 27 30 01/08/19 12:00 109 01/08/19 12:00 30 01/08/19 12:00 Mechanical Ventilator 01/08/19 12:00 98.1 111 20 98/62 (74) 95 01/08/19 11:05 116 30 30 01/08/19 09:15 105 24 30 01/08/19 08:00 30 01/08/19 08:00 98.2 110 20 108/65 (79) 99 01/08/19 08:00 Mechanical Ventilator 01/08/19 08:00 111 Intake and Output 01/08/19 01/09/19 19:00 07:00 Intake Total 1210 ml 605 ml Output Total 1100 ml 850 ml Balance 110 ml -245 ml Intake Free Water 450 ml IV Total 220 ml 110 ml Tube Feeding 540 ml 495 ml Output Urine Total 750 ml 550 ml Stool Total 350 ml 300 ml Microbiology Date/Time Source Procedure Growth Status 12/30/18 17:50 Blood Blood Culture - Final NO GROWTH AFTER 5 DAYS Complete 12/28/18 04:30 Other(Specify in comment) Catheter Tip Culture - Final NO GROWTH AFTER 4 DAYS Complete 12/20/18 13:00 Sputum Induced Gram Stain - Final Complete 12/20/18 13:00 Sputum Culture - Final Staphylococcus Aureus - Mrsa Usual Respiratory Shelly Complete 12/30/18 17:37 Stool Clostridium difficile Toxin Assay - Final Complete 12/26/18 04:00 Urine,Clean Catch Urine Culture - Final Meera Albicans Complete 12/30/18 17:37 Sacral Wound Gram Stain - Final Complete 12/30/18 17:37 Wound Culture - Final K.pneumoniae Carbapenem Resist Escherichia Coli - Esbl Proteus Mirabilis Complete Current Medications Medications (Trade) Dose Ordered Sig/Fransisco Route PRN Reason Start Time Stop Time Status Last Admin Dose Admin Albuterol/ Ipratropium (Albuterol/ Ipratropium) 3 ml Q4H PRN HHN Shortness of Breath 01/08/19 14:00 01/13/19 13:59 Amikacin Protocol (Amikacin pharmacy to dose) 1 ea DAILY PRN MISC Per rx protocol 01/03/19 16:30 02/02/19 16:29 Amikacin Sulfate 1000 mg/Sodium Chloride 114 ml @ 228 mls/hr Q36H IV 01/05/19 06:00 01/12/19 05:59 01/08/19 05:24 Aztreonam 2 gm/ Dextrose 110 ml @ 220 mls/hr Q8H IVPB 01/02/19 16:00 01/13/19 15:59 01/09/19 07:22 Calcitonin [place] (Miacalcin) 1 sprays DAILY NASAL 12/28/18 09:00 01/24/19 10:59 01/08/19 07:59 Chlorhexidine Gluconate (Sandra-Hex 2%) 1 applic DAILY@1999 TOPIC 12/28/18 20:00 01/09/19 19:59 01/08/19 20:19 Dextrose (Dextrose 50%) 25 ml Q30M PRN IV Hypoglycemia 01/01/19 00:15 01/31/19 00:14 Dextrose (Dextrose 50%) 50 ml Q30M PRN IV Hypoglycemia 01/01/19 00:15 01/31/19 00:14 Diltiazem HCl (Cardizem) 10 mg BIDPRN PRN IVP FOR HR >140 12/28/18 08:45 01/11/19 08:44 Gemfibrozil (Lopid) 600 mg TWICE A DAY GT 12/28/18 09:00 01/14/19 10:14 01/08/19 17:01 Insulin Aspart (NovoLOG) EVERY 6 HOURS SUBQ 01/01/19 06:00 01/31/19 05:59 01/09/19 00:09 Insulin Detemir (Levemir) 20 units Q12HR SUBQ 01/02/19 21:00 01/27/19 13:59 01/08/19 21:00 Lansoprazole (Prevacid) 30 mg BID GT 12/28/18 09:00 01/16/19 08:59 01/08/19 17:01 Mupirocin (Bactroban Oint) 1 applic BID TOPIC 01/08/19 09:00 01/13/19 08:59 01/08/19 17:01 Nateglinide (Starlix) 120 mg Q8HR ORAL 12/28/18 06:00 01/17/19 21:59 01/09/19 05:48 Laboratory Tests 01/09/19 03:45: White Blood Count 8.4, Red Blood Count 2.52L, Hemoglobin 7.7L, Hematocrit 23.8L , Mean Corpuscular Volume 94, Mean Corpuscular Hemoglobin 30.6, Mean Corpuscular Hemoglobin Concent 32.5, Red Cell Distribution Width 17.5H, Platelet Count 279, Mean Platelet Volume 8.0, Neutrophils (%) (Auto) , Lymphocytes (%) (Auto) , Monocytes (%) (Auto) , Eosinophils (%) (Auto) , Basophils (%) (Auto) , Neutrophils % (Manual) [Pending], Lymphocytes % (Manual) [Pending], Platelet Estimate [Pending], Platelet Morphology [Pending], Sodium Level 137, Potassium Level 5.1, Chloride Level 105, Carbon Dioxide Level 21, Anion Gap 11, Blood Urea Nitrogen 25H, Creatinine 0.7, Estimat Glomerular Filtration Rate , Glucose Level 114H, Calcium Level 8.0L Height (Feet): 5 Height (Inches): 8.00 Weight (Pounds): 145 Objective exam stable, urine yellow with debris Ramez Gonzalez MD Jan 09, 2019 07:40
--- NOTE | 2019-01-09 07:43 | NUR ---
RESPIRATORY NOTE: received pt on current vent settings, trached with portex 8; midline, secured via trach tie/guard. no redness or sores visible around stoma or neck area. alarms are set and audible with ambu bag at bedside. vent is plugged into the red outlet. will cont to monitor.
[2019-01-09 08:00] VITALS: BP 173/85
[2019-01-09] MEDS: Levemir Flexpen SUBQ SCH ×2 (08:38→21:07)
--- NOTE | 2019-01-09 08:47 | Infectious Diseases Prog Note ---
Assessment/Plan Assessment/Plan Gram positive bacteremia- PICC line infection -12/26 2d echo: no vegetations 12/23 SP -Removal of PICC line - -12/20 1/ E. fecalis (S Van, amp), 1/2 MRSA. PICC line; Peripheral NTD; Bcx NTD; 12/23 Neg Septic shock , SP Severe Sepsis 2ry to GNR bacteremia, PNA, sp Rx -01/02 CXR: Chronic appearing interstitial opacities are again demonstrated in the right upper lobe as well as more generalized. There is suggestion of small bilateralpleural effusions, unchanged -12/24 CXR: Bilateral interstitial and airspace opacities, worse in the right upper lobe, slightly worse than prior study. -12/21 CXR: Bilateral interstitial and airspace opacities, associated bronchiectasis are again demonstrated. There is blunting of the left costophrenic sulcus again demonstrated. -12/17 CXR: No significant interval change in the diffuse patchy bilateral reticular interstitial and airspace opacities. -CXR: Probable small left pleural effusion, also evident on prior study 2017. Bilateral interstitial disease, unchanged, suspect chronic. Correlate with clinical findings -sp CX MDR PsA (S Gentamicin, AMikacin, Cefepime, Aztreonam, Tobramycin); repeats sp cx 12/20 MRSA; likely colonzier as vent settings stable GNR bacteremia, likely from UTI -CT abd/p: Findings consistent with uncomplicated nonnecrotizing acute pancreatitis. No evidence of associated peripancreatic abscess Surgical changes as described, including right lower quadrant ileostomy, subtotal colectomy with Haroldo procedure. Wall thickening of the Haroldo pouch. This could indicate inflammation. However, this is also present on both of the prior 2 exams and may be baseline for this patien. Evidence of mild anasarca, with edema of the subcutaneous fat. This is a new finding. Chronic appearing decubitus changes of the bilateral ischia. Correlate with clinical findings. Complete left lower lobe consolidation. This is similar to both of the prior CTs, andis likely a chronic finding. There is progressive chronic interstitial fibrotic change involving the right middle lobe. There is also right lower lobe granulomatous calcification, Extensive pulmonary parenchymal opacities bilaterally may reflect acute inflammation/infection, edema, progressive chronic scarring, orcombination of the above. These are considerably more extensive than on the prior study -u/a 10-15, nit neg, luek +3; ucx 50-60k Enterococcus (Vanco resist; S AMp), 40-50 K Proteus -/ Bcx 3/ Proteus; 12/08 Bcx 1/4 Proteus (S Aztreonam; R Cipro, levo; I Imipenem); Acute pancreatitis -lipase ~1k Fever - recurrent- in the setting of bacteremia and pancreaitis; Leukocytosis , recurrent, increased--in the setting of bacteremia, UTI and acute pancreatitis -CT abd/p Suspected active decubitus ulcer right side with evidence of drainage. Correlate clinically. No deeper abscess or drainable collections identified. The ulcer probes to the right ischium. Acute osteomyelitis or acute on chronic osteomyelitis may be considered. Chronic bilateral grade 4 decubitus ulcers with the large areas absent eroded posterior ischia and absent lower sacrum and coccyx due to previous osteomyelitis. Scrotal swelling with skin thickening and suggestion of heterogeneous fluid within the scrotal sac. Correlate clinically. No evidence of intra-abdominal or pelvic abscess or other acute pathology.Chronic dense left posterior basilar consolidation/atelectasis. Extensive fibrosis and cystic replacement anterior right lung base middle lobe. Sacral decubitus ulcer- w/ acute or acute on chronic OM --sacral wound cx KPC K.pna (S Cefepime, Amikacin), E.coli (S Zosyn), P. mirabilis (R cipro/levo, amp) CT 12/30/18 - OM of sacrum CONS bacteremia- likely contaminant -12/12 Bcx / CONS; 12/14 Bcx Neg MAULIK, improving dysphagia s/p peg COPD GBS quadriplegia chronic resp failure s/p trach HTN CVA, nonverbal anemia SNF resident Plan: -Continue Aztreonam #/ and Amikacin #/ for KPC in sacral wound -requested Aztreonam sensitivities -may try Cefepime trial based on wound cx results (unclear what is the PNC allergy) -will likely treat for 6 weeks for OM pending sacral wound cx 01/03/19 SP Linezolid #14 -12/22 SP Aztreonam #14 -12/21 SP INH tobramycin #7 -12/16 SP IV Daptomycin #7 -f/u Bcx x2, sacral wound cx -Monitor CBC/CMP, temperatures -PEG/Trach care -Aspiration precautions -management of acute pancreatitis per primary team. -wound care per surgical team Subjective Allergies: Coded Allergies: PENICILLINS (Unverified Allergy, Unknown, 02/26/16) POLYMYXIN B (Unverified Allergy, Unknown, 02/26/16) VANCOMYCIN (Unverified Allergy, Unknown, 02/26/16) Subjective Patient afebrile Leukocytosis resolved Objective Vital Signs Last 24 Hour Vital Signs Date Time Temp Pulse Resp B/P (MAP) Pulse Ox O2 Delivery O2 Flow Rate FiO2 01/09/19 07:41 102 26 30 01/09/19 04:58 102 20 30 01/09/19 04:00 Mechanical Ventilator 01/09/19 04:00 109 01/09/19 04:00 97.0 111 23 113/69 (84) 99 01/09/19 04:00 30 01/09/19 02:53 103 26 30 01/09/19 01:00 104 22 30 01/09/19 00:00 98.1 108 23 101/66 (78) 98 01/09/19 00:00 Mechanical Ventilator 01/09/19 00:00 103 01/09/19 00:00 30 01/08/19 23:24 106 21 30 01/08/19 21:23 102 20 30 01/08/19 20:00 30 01/08/19 20:00 Mechanical Ventilator 01/08/19 20:00 97.5 103 23 97/60 (72) 98 01/08/19 20:00 105 01/08/19 18:39 104 28 30 01/08/19 16:50 110 23 30 01/08/19 16:00 104 01/08/19 16:00 30 01/08/19 16:00 Mechanical Ventilator 01/08/19 16:00 97.5 103 23 91/62 (72) 98 01/08/19 15:22 105 24 30 01/08/19 13:15 108 27 30 01/08/19 12:00 109 01/08/19 12:00 30 01/08/19 12:00 Mechanical Ventilator 01/08/19 12:00 98.1 111 20 98/62 (74) 95 01/08/19 11:05 116 30 30 01/08/19 09:15 105 24 30 Height (Feet): 5 Height (Inches): 8.00 Weight (Pounds): 145 Objective GEN: NAD, On Vent HEENT: CTAB, PERRL, MMM. LUNGS: CTAB, No W HEART: RRR, S1, S2 ABDOMEN: Soft and nontender Laboratory Tests Test 01/09/19 03:45 White Blood Count 8.4 K/UL (4.8-10.8) Red Blood Count 2.52 M/UL (4.70-6.10) L Hemoglobin 7.7 G/DL (14.2-18.0) L Hematocrit 23.8 % (42.0-52.0) L Mean Corpuscular Volume 94 FL (80-99) Mean Corpuscular Hemoglobin 30.6 PG (27.0-31.0) Mean Corpuscular Hemoglobin Concent 32.5 G/DL (32.0-36.0) Red Cell Distribution Width 17.5 % (11.6-14.8) H Platelet Count 279 K/UL (150-450) Mean Platelet Volume 8.0 FL (6.5-10.1) Neutrophils (%) (Auto) % (45.0-75.0) Lymphocytes (%) (Auto) % (20.0-45.0) Monocytes (%) (Auto) % (1.0-10.0) Eosinophils (%) (Auto) % (0.0-3.0) Basophils (%) (Auto) % (0.0-2.0) Neutrophils % (Manual) Pending Lymphocytes % (Manual) Pending Platelet Estimate Pending Platelet Morphology Pending Sodium Level 137 MMOL/L (136-145) Potassium Level 5.1 MMOL/L (3.5-5.1) Chloride Level 105 MMOL/L (98-107) Carbon Dioxide Level 21 MMOL/L (21-32) Anion Gap 11 mmol/L (5-15) Blood Urea Nitrogen 25 mg/dL (7-18) H Creatinine 0.7 MG/DL (0.55-1.30) Estimat Glomerular Filtration Rate mL/min (>60) Glucose Level 114 MG/DL (74-106) H Calcium Level 8.0 MG/DL (8.5-10.1) L Current Medications Medications (Trade) Dose Ordered Sig/Fransisco Route PRN Reason Start Time Stop Time Status Last Admin Dose Admin Albuterol/ Ipratropium (Albuterol/ Ipratropium) 3 ml Q4H PRN HHN Shortness of Breath 01/08/19 14:00 01/13/19 13:59 Amikacin Protocol (Amikacin pharmacy to dose) 1 ea DAILY PRN MISC Per rx protocol 01/03/19 16:30 02/02/19 16:29 Amikacin Sulfate 1000 mg/Sodium Chloride 114 ml @ 228 mls/hr Q36H IV 01/05/19 06:00 01/12/19 05:59 01/08/19 05:24 Aztreonam 2 gm/ Dextrose 110 ml @ 220 mls/hr Q8H IVPB 01/02/19 16:00 01/13/19 15:59 01/09/19 07:22 Calcitonin [place] (Miacalcin) 1 sprays DAILY NASAL 12/28/18 09:00 01/24/19 10:59 01/09/19 07:53 Chlorhexidine Gluconate (Sandra-Hex 2%) 1 applic DAILY@2000 TOPIC 12/28/18 20:00 01/09/19 19:59 01/08/19 20:19 Dextrose (Dextrose 50%) 25 ml Q30M PRN IV Hypoglycemia 01/01/19 00:15 01/31/19 00:14 Dextrose (Dextrose 50%) 50 ml Q30M PRN IV Hypoglycemia 01/01/19 00:15 01/31/19 00:14 Diltiazem HCl (Cardizem) 10 mg BIDPRN PRN IVP FOR HR >140 12/28/18 08:45 01/11/19 08:44 Gemfibrozil (Lopid) 600 mg TWICE A DAY GT 12/28/18 09:00 01/14/19 10:14 01/09/19 07:53 Insulin Aspart (NovoLOG) EVERY 6 HOURS SUBQ 01/01/19 06:00 01/31/19 05:59 01/09/19 00:09 Insulin Detemir (Levemir) 20 units Q12HR SUBQ 01/02/19 21:00 01/27/19 13:59 01/09/19 08:38 Lansoprazole (Prevacid) 30 mg BID GT 12/28/18 09:00 01/16/19 08:59 01/09/19 07:53 Mupirocin (Bactroban Oint) 1 applic BID TOPIC 01/08/19 09:00 01/13/19 08:59 01/09/19 07:55 Nateglinide (Starlix) 120 mg Q8HR ORAL 12/28/18 06:00 01/17/19 21:59 01/09/19 05:48 hCico Allen MD Jan 09, 2019 08:47
--- NOTE | 2019-01-09 09:30 | Progress Note ---
DATE: 01/08/2019 SUBJECTIVE: The patient is afebrile and hemodynamically stable. PHYSICAL EXAMINATION: VITAL SIGNS: Blood pressure 97/60, pulse 105, respirations 20, and temperature 97.5. HEENT: Eyes were normal. ENT, mucous membranes were moist and intact. NECK: Supple with no JVD without lymph nodes. Tracheostomy site is clean. LUNGS: Clear without rhonchi, rales, or wheezing. HEART: Normal sounds with beats. There is tachycardia at rest. Sinus tachycardia on monitor. ABDOMEN: Soft and nontender with normal bowel sounds. Gastrostomy site is clean. EXTREMITIES: Warm without cyanosis, clubbing, or edema. LABORATORY AND DIAGNOSTIC DATA: Hemoglobin is 7.6, hematocrit 23.7, MCV of 93, WBC 11.8, and platelets is 278. His BUN and creatinine is 27 and 0.7 respectively. Sodium is 139, potassium 4.6, chloride 106, CO2 is 23. IMPRESSION: The patient with . Repeat laboratory tests will be done in the a.m. . Repeat chest x-ray will be done in the morning. Neema Hutchins M.D. DR: Zee JOB#: [id number] CC:
--- NOTE | 2019-01-09 09:44 | General Progress Note ---
Assessment/Plan Problem List: (1) Tracheostomy in place ICD Codes: Z98.89 - Other specified postprocedural states SNOMED: 375987574 (2) Acute and chronic respiratory failure ICD Codes: J96.20 - Acute and chronic respiratory failure, unspecified whether with hypoxia or hypercapnia SNOMED: 26373139, 67472931 (3) Decubitus ulcer of sacral region, stage 2 ICD Codes: L89.152 - Pressure ulcer of sacral region, stage 2 SNOMED: 683598681, 282729503 (4) Cerebral vascular disease ICD Codes: I67.9 - Cerebrovascular disease, unspecified SNOMED: 94166927 (5) Colostomy care ICD Codes: Z43.3 - Encounter for attention to colostomy SNOMED: 183327594 (6) Hypertension ICD Codes: I10 - Essential (primary) hypertension SNOMED: 70584442 (7) Diabetes mellitus, type II ICD Codes: E11.9 - Type 2 diabetes mellitus without complications SNOMED: 70801757 (8) Feeding by G-tube ICD Codes: Z93.1 - Gastrostomy status SNOMED: 185254800, 844645981 (9) Anemia ICD Codes: D64.9 - Anemia, unspecified SNOMED: 568430962 (10) Pancreatitis ICD Codes: K85.90 - Acute pancreatitis without necrosis or infection, unspecified SNOMED: 84371910 Assessment/Plan Occult blood stool positive >>1/4 fu CBC Hepatitis panel negative Pancreatitis secondary to hypertriglyceridemia Elevated CA 19, mild Repeat lipid panel shows hypertriglyceridemia TriCor and Lopid Stable H&H - PRN transfusions ppi daily GTFs per RD repeat lipase Supportive care Subjective ROS Limited/Unobtainable: No Allergies: Coded Allergies: PENICILLINS (Unverified Allergy, Unknown, 02/26/16) POLYMYXIN B (Unverified Allergy, Unknown, 02/26/16) VANCOMYCIN (Unverified Allergy, Unknown, 02/26/16) Objective Last 24 Hour Vital Signs Date Time Temp Pulse Resp B/P (MAP) Pulse Ox O2 Delivery O2 Flow Rate FiO2 01/09/19 09:02 102 26 30 01/09/19 08:00 100 01/09/19 07:41 102 26 30 01/09/19 04:58 102 20 30 01/09/19 04:00 Mechanical Ventilator 01/09/19 04:00 109 01/09/19 04:00 97.0 111 23 113/69 (84) 99 01/09/19 04:00 30 01/09/19 02:53 103 26 30 01/09/19 01:00 104 22 30 01/09/19 00:00 98.1 108 23 101/66 (78) 98 01/09/19 00:00 Mechanical Ventilator 01/09/19 00:00 103 01/09/19 00:00 30 01/08/19 23:24 106 21 30 01/08/19 21:23 102 20 30 01/08/19 20:00 30 01/08/19 20:00 Mechanical Ventilator 01/08/19 20:00 97.5 103 23 97/60 (72) 98 01/08/19 20:00 105 01/08/19 18:39 104 28 30 01/08/19 16:50 110 23 30 01/08/19 16:00 104 01/08/19 16:00 30 01/08/19 16:00 Mechanical Ventilator 01/08/19 16:00 97.5 103 23 91/62 (72) 98 01/08/19 15:22 105 24 30 01/08/19 13:15 108 27 30 01/08/19 12:00 109 01/08/19 12:00 30 01/08/19 12:00 Mechanical Ventilator 01/08/19 12:00 98.1 111 20 98/62 (74) 95 01/08/19 11:05 116 30 30 Intake and Output 01/08/19 01/09/19 19:00 07:00 Intake Total 1210 ml 605 ml Output Total 1100 ml 850 ml Balance 110 ml -245 ml Intake Free Water 450 ml IV Total 220 ml 110 ml Tube Feeding 540 ml 495 ml Output Urine Total 750 ml 550 ml Stool Total 350 ml 300 ml Laboratory Tests 01/09/19 03:45: White Blood Count 8.4, Red Blood Count 2.52L, Hemoglobin 7.7L, Hematocrit 23.8L , Mean Corpuscular Volume 94, Mean Corpuscular Hemoglobin 30.6, Mean Corpuscular Hemoglobin Concent 32.5, Red Cell Distribution Width 17.5H, Platelet Count 279, Mean Platelet Volume 8.0, Neutrophils (%) (Auto) , Lymphocytes (%) (Auto) , Monocytes (%) (Auto) , Eosinophils (%) (Auto) , Basophils (%) (Auto) , Differential Total Cells Counted 100, Neutrophils % ( Manual) 69, Lymphocytes % (Manual) 18L, Monocytes % (Manual) 7, Eosinophils % ( Manual) 6H, Basophils % (Manual) 0, Band Neutrophils 0, Platelet Estimate Adequate, Platelet Morphology Normal, Polychromasia 1+, Anisocytosis 1+, Sodium Level 137, Potassium Level 5.1, Chloride Level 105, Carbon Dioxide Level 21, Anion Gap 11, Blood Urea Nitrogen 25H, Creatinine 0.7, Estimat Glomerular Filtration Rate , Glucose Level 114H, Calcium Level 8.0L Height (Feet): 5 Height (Inches): 8.00 Weight (Pounds): 145 General Appearance: no apparent distress EENT: normal ENT inspection Neck: supple Cardiovascular: normal rate Respiratory/Chest: decreased breath sounds Abdomen: normal bowel sounds, non tender, soft Extremities: non-tender Benjamin Jackson MD Jan 09, 2019 09:44
--- NOTE | 2019-01-09 09:58 | NUR ---
RADIOLOGY DEPT., CHEST X-RAY DONE.-P.DYE
--- NOTE | 2019-01-09 10:13 | Pulmonolgy Critical Care Note ---
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 Respiratory: monitor respiratory rate, adjust FIO2, CXR Cardiac: continue to monitor HR/BP Renal: F/U I&O, keep IV fluid, check electrolytes Infectious Disease: check cultures Gastrointestinal: continue feedings/current rate Endocrine: monitor blood sugar Hematologic: monitor H/H, transfuse if hgb<8.5 Neurologic: PRN Ativan, PRN Morphine, keep patient comfortable Prophylaxis: Protonix, Heparin Notes Reviewed: 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 with: nurses, consultants, director case managementtrack manager - Objective Last 24 Hour Vital Signs Date Time Temp Pulse Resp B/P (MAP) Pulse Ox O2 Delivery O2 Flow Rate FiO2 01/09/19 09:02 102 26 30 01/09/19 08:00 100 01/09/19 07:41 102 26 30 01/09/19 04:58 102 20 30 01/09/19 04:00 Mechanical Ventilator 01/09/19 04:00 109 01/09/19 04:00 97.0 111 23 113/69 (84) 99 01/09/19 04:00 30 01/09/19 02:53 103 26 30 01/09/19 01:00 104 22 30 01/09/19 00:00 98.1 108 23 101/66 (78) 98 01/09/19 00:00 Mechanical Ventilator 01/09/19 00:00 103 01/09/19 00:00 30 01/08/19 23:24 106 21 30 01/08/19 21:23 102 20 30 01/08/19 20:00 30 01/08/19 20:00 Mechanical Ventilator 01/08/19 20:00 97.5 103 23 97/60 (72) 98 01/08/19 20:00 105 01/08/19 18:39 104 28 30 01/08/19 16:50 110 23 30 01/08/19 16:00 104 4/7/19 16:00 30 01/08/19 16:00 Mechanical Ventilator 01/08/19 16:00 97.5 103 23 91/62 (72) 98 01/08/19 15:22 105 24 30 01/08/19 13:15 108 27 30 01/08/19 12:00 109 01/08/19 12:00 30 01/08/19 12:00 Mechanical Ventilator 01/08/19 12:00 98.1 111 20 98/62 (74) 95 01/08/19 11:05 116 30 30 Status: awake Condition: critical HEENT: atraumatic Neck: full ROM Lungs: rales, rhonchi Heart: HR/BP stable, HR/BP unstable Abdomen: non-tender, feeding tube Extremities: no C/C/E Accucheck: 135 Critical Care - Subjective ROS Limited/Unobtainable: No Condition: critical EKG Rhythm: Sinus Rhythm FI02: 30 Vent Support Breath Rate: 18 Vent Support Mode: AC Vent Tidal Volume: 500 Sputum Amount: Small PEEP: 5.0 PIP: 28 Tube Feeding Amount: 45 I&O: Intake and Output 01/08/19 01/09/19 19:00 07:00 Intake Total 1210 ml 605 ml Output Total 1100 ml 850 ml Balance 110 ml -245 ml Intake Free Water 450 ml IV Total 220 ml 110 ml Tube Feeding 540 ml 495 ml Output Urine Total 750 ml 550 ml Stool Total 350 ml 300 ml CXR: no change, Trach Labs: Laboratory Tests Test 01/09/19 03:45 White Blood Count 8.4 K/UL (4.8-10.8) Red Blood Count 2.52 M/UL (4.70-6.10) L Hemoglobin 7.7 G/DL (14.2-18.0) L Hematocrit 23.8 % (42.0-52.0) L Mean Corpuscular Volume 94 FL (80-99) Mean Corpuscular Hemoglobin 30.6 PG (27.0-31.0) Mean Corpuscular Hemoglobin Concent 32.5 G/DL (32.0-36.0) Red Cell Distribution Width 17.5 % (11.6-14.8) H Platelet Count 279 K/UL (150-450) Mean Platelet Volume 8.0 FL (6.5-10.1) Neutrophils (%) (Auto) % (45.0-75.0) Lymphocytes (%) (Auto) % (20.0-45.0) Monocytes (%) (Auto) % (1.0-10.0) Eosinophils (%) (Auto) % (0.0-3.0) Basophils (%) (Auto) % (0.0-2.0) Differential Total Cells Counted 100 Neutrophils % (Manual) 69 % (45-75) Lymphocytes % (Manual) 18 % (20-45) L Monocytes % (Manual) 7 % (1-10) Eosinophils % (Manual) 6 % (0-3) H Basophils % (Manual) 0 % (0-2) Band Neutrophils 0 % (0-8) Platelet Estimate Adequate Platelet Morphology Normal Polychromasia 1+ Anisocytosis 1+ Sodium Level 137 MMOL/L (136-145) Potassium Level 5.1 MMOL/L (3.5-5.1) Chloride Level 105 MMOL/L (98-107) Carbon Dioxide Level 21 MMOL/L (21-32) Anion Gap 11 mmol/L (5-15) Blood Urea Nitrogen 25 mg/dL (7-18) H Creatinine 0.7 MG/DL (0.55-1.30) Estimat Glomerular Filtration Rate mL/min (>60) Glucose Level 114 MG/DL (74-106) H Calcium Level 8.0 MG/DL (8.5-10.1) Abhishek Peacock MD Jan 09, 2019 10:13
--- NOTE | 2019-01-09 10:34 | NUR ---
DISCHARGE PLANNING FAXED REFERRAL TO [facility] [place] T- FAX- WILL FOLLOW UP
[2019-01-09] MEDS ORDERED: Simethicone Drops 80mg/1.2ml ORAL ONE (11:00)
--- NOTE | 2019-01-09 11:20 | NUR ---
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 A/C RESP. FAILURE VS: BP 113/69, P 111, T 97.0, RR 26, SpO2 99 on VENT AC 18, TV 500, PEEP 5.0, FiO2 30 RBC 2.52, Hgb 7.7, Hct 23.8, BUN 25, Glucose 114 IS:LEVEMIR SUBQ AZTREONAM/D5 110ml IVPB MIACALCIN 1spray LOPID 600mg GT PREVACID 30mg GT STARLIX 120mg SDU STATUS
--- NOTE | 2019-01-09 11:37 | Nephrology Progress Note ---
Assessment/Plan Problem List: (1) Hypercalcemia (2) ATN (acute tubular necrosis) (3) Anemia (4) Feeding by G-tube (5) Acute and chronic respiratory failure (6) UTI (urinary tract infection) (7) Hyponatremia Assessment in [facility] - Glucose better controlled Periodic high K Patient have mainly Pre Renal Azotemia with possible underlying CKD- Low Na partly depletional, partly due to Hyperglycemia RESOLVED Other conditions as outlined: (1) Acute and chronic respiratory failure ([id number]) (2) Sepsis (3) Malnutrition and HypoAlbuminemia (4) UTI (urinary tract infection) (5) Anemia (6) Diabetes mellitus, type II (7) Colostomy care (8) Cerebral vascular disease (9) Decubitus ulcer of sacral region, stage 2 (10) Feeding by G-tube (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 Plan K & Phos supplement as needed Levemir and adjust dose Kayexelate for high K as needed Transfuse as needed Stop Digoxin stop Atenolol Stop Cardiazem Pressors as needed Albumin bolus as needed AREDIA 90 mg for HYPERCALCEMIA on 12/23 - Fu Calcium level will redose On Starlix feeding to glucerna Keep electrolytes in check Keep BS and BP in check per consultants Subjective ROS Limited/Unobtainable: Yes Objective Objective Last 24 Hour Vital Signs Date Time Temp Pulse Resp B/P (MAP) Pulse Ox O2 Delivery O2 Flow Rate FiO2 01/09/19 09:02 102 26 30 01/09/19 08:00 30 01/09/19 08:00 100 01/09/19 08:00 Mechanical Ventilator 01/09/19 07:41 102 26 30 01/09/19 04:58 102 20 30 01/09/19 04:00 Mechanical Ventilator 01/09/19 04:00 109 01/09/19 04:00 97.0 111 23 113/69 (84) 99 01/09/19 04:00 30 01/09/19 02:53 103 26 30 01/09/19 01:00 104 22 30 01/09/19 00:00 98.1 108 23 101/66 (78) 98 01/09/19 00:00 Mechanical Ventilator 01/09/19 00:00 103 01/09/19 00:00 30 01/08/19 23:24 106 21 30 01/08/19 21:23 102 20 30 01/08/19 20:00 30 01/08/19 20:00 Mechanical Ventilator 01/08/19 20:00 97.5 103 23 97/60 (72) 98 01/08/19 20:00 105 01/08/19 18:39 104 28 30 01/08/19 16:50 110 23 30 01/08/19 16:00 104 01/08/19 16:00 30 01/08/19 16:00 Mechanical Ventilator 01/08/19 16:00 97.5 103 23 91/62 (72) 98 01/08/19 15:22 105 24 30 01/08/19 13:15 108 27 30 01/08/19 12:00 109 01/08/19 12:00 30 01/08/19 12:00 Mechanical Ventilator 01/08/19 12:00 98.1 111 20 98/62 (74) 95 Intake and Output 01/08/19 01/09/19 19:00 07:00 Intake Total 1210 ml 605 ml Output Total 1100 ml 850 ml Balance 110 ml -245 ml Intake Free Water 450 ml IV Total 220 ml 110 ml Tube Feeding 540 ml 495 ml Output Urine Total 750 ml 550 ml Stool Total 350 ml 300 ml Laboratory Tests 01/09/19 03:45: White Blood Count 8.4, Red Blood Count 2.52L, Hemoglobin 7.7L, Hematocrit 23.8L , Mean Corpuscular Volume 94, Mean Corpuscular Hemoglobin 30.6, Mean Corpuscular Hemoglobin Concent 32.5, Red Cell Distribution Width 17.5H, Platelet Count 279, Mean Platelet Volume 8.0, Neutrophils (%) (Auto) , Lymphocytes (%) (Auto) , Monocytes (%) (Auto) , Eosinophils (%) (Auto) , Basophils (%) (Auto) , Differential Total Cells Counted 100, Neutrophils % ( Manual) 69, Lymphocytes % (Manual) 18L, Monocytes % (Manual) 7, Eosinophils % ( Manual) 6H, Basophils % (Manual) 0, Band Neutrophils 0, Platelet Estimate Adequate, Platelet Morphology Normal, Polychromasia 1+, Anisocytosis 1+, Sodium Level 137, Potassium Level 5.1, Chloride Level 105, Carbon Dioxide Level 21, Anion Gap 11, Blood Urea Nitrogen 25H, Creatinine 0.7, Estimat Glomerular Filtration Rate , Glucose Level 114H, Calcium Level 8.0L Height (Feet): 5 Height (Inches): 8.00 Weight (Pounds): 145 EENT: other Cardiovascular: tachycardia Respiratory/Chest: decreased breath sounds Abdomen: distended Objective no change Migue Moreland MD Jan 09, 2019 11:37
[2019-01-09 12:00] VITALS: BP_SYST 103; BP_SYST 140; BP_DIAS 64; BP_DIAS 69
--- NOTE | 2019-01-09 12:02 | Diagnostic Imaging Report ---
Indication: Dyspnea Technique: One view of the chest Comparison: 01/06/2019 Findings: Tracheostomy again demonstrated. The heart size is normal. Left costophrenic angle blunting is unchanged. Reticular interstitial opacities bilaterally, right greater than left, are unchanged Impression: Unchanged, over 3 days, findings as above.
--- NOTE | 2019-01-09 14:23 | Surgery Progress Note ---
Surgery Progress Note Subjective Additional Comments stable. unchanged. dressings okay Objective Last 24 Hour Vital Signs Date Time Temp Pulse Resp B/P (MAP) Pulse Ox O2 Delivery O2 Flow Rate FiO2 01/09/19 13:05 106 21 30 01/09/19 12:00 102 01/09/19 12:00 Mechanical Ventilator 01/09/19 12:00 30 01/09/19 12:00 98.2 100 20 140/69 (92) 98 01/09/19 11:45 105 24 30 01/09/19 09:02 102 26 30 01/09/19 08:00 30 01/09/19 08:00 100 01/09/19 08:00 Mechanical Ventilator 01/09/19 07:41 102 26 30 01/09/19 04:58 102 20 30 01/09/19 04:00 Mechanical Ventilator 01/09/19 04:00 109 01/09/19 04:00 97.0 111 23 113/69 (84) 99 01/09/19 04:00 30 01/09/19 02:53 103 26 30 01/09/19 01:00 104 22 30 01/09/19 00:00 98.1 108 23 101/66 (78) 98 01/09/19 00:00 Mechanical Ventilator 01/09/19 00:00 103 01/09/19 00:00 30 01/08/19 23:24 106 21 30 01/08/19 21:23 102 20 30 01/08/19 20:00 30 01/08/19 20:00 Mechanical Ventilator 01/08/19 20:00 97.5 103 23 97/60 (72) 98 01/08/19 20:00 105 01/08/19 18:39 104 28 30 01/08/19 16:50 110 23 30 01/08/19 16:00 104 01/08/19 16:00 30 01/08/19 16:00 Mechanical Ventilator 01/08/19 16:00 97.5 103 23 91/62 (72) 98 01/08/19 15:22 105 24 30 I&O Intake and Output 01/08/19 01/09/19 19:00 07:00 Intake Total 1210 ml 605 ml Output Total 1100 ml 850 ml Balance 110 ml -245 ml Intake Free Water 450 ml IV Total 220 ml 110 ml Tube Feeding 540 ml 495 ml Output Urine Total 750 ml 550 ml Stool Total 350 ml 300 ml Dressing: saturated Wound: other Drains: other Cardiovascular: RSR Respiratory: clear, decreased breath sounds Abdomen: soft, present bowel sounds, non-distended Extremities: no tenderness, no cyanosis Laboratory Tests Test 01/09/19 03:45 White Blood Count 8.4 K/UL (4.8-10.8) Red Blood Count 2.52 M/UL (4.70-6.10) L Hemoglobin 7.7 G/DL (14.2-18.0) L Hematocrit 23.8 % (42.0-52.0) L Mean Corpuscular Volume 94 FL (80-99) Mean Corpuscular Hemoglobin 30.6 PG (27.0-31.0) Mean Corpuscular Hemoglobin Concent 32.5 G/DL (32.0-36.0) Red Cell Distribution Width 17.5 % (11.6-14.8) H Platelet Count 279 K/UL (150-450) Mean Platelet Volume 8.0 FL (6.5-10.1) Neutrophils (%) (Auto) % (45.0-75.0) Lymphocytes (%) (Auto) % (20.0-45.0) Monocytes (%) (Auto) % (1.0-10.0) Eosinophils (%) (Auto) % (0.0-3.0) Basophils (%) (Auto) % (0.0-2.0) Differential Total Cells Counted 100 Neutrophils % (Manual) 69 % (45-75) Lymphocytes % (Manual) 18 % (20-45) L Monocytes % (Manual) 7 % (1-10) Eosinophils % (Manual) 6 % (0-3) H Basophils % (Manual) 0 % (0-2) Band Neutrophils 0 % (0-8) Platelet Estimate Adequate Platelet Morphology Normal Polychromasia 1+ Anisocytosis 1+ Sodium Level 137 MMOL/L (136-145) Potassium Level 5.1 MMOL/L (3.5-5.1) Chloride Level 105 MMOL/L (98-107) Carbon Dioxide Level 21 MMOL/L (21-32) Anion Gap 11 mmol/L (5-15) Blood Urea Nitrogen 25 mg/dL (7-18) H Creatinine 0.7 MG/DL (0.55-1.30) Estimat Glomerular Filtration Rate mL/min (>60) Glucose Level 114 MG/DL (74-106) H Calcium Level 8.0 MG/DL (8.5-10.1) L Plan Problems: (1) Decubitus skin ulcer Assessment & Plan: Pt presented on admission with multiple pressure injuries and Skin erosion. Pt has trach and no evidence of skin breakdown noted under trach collar. Unstageable pressure injury noted to L earlobe. Stable dry brown eschar noted(L) 0.7cm x (W)0.5cm. Gross erythema with denudement and multiple scattered partial thickness wounds noted to buttocks and base of scrotum extending into both posterior upper thighs.Moderate amt sanguineous exudate noted upon removal of drsgs. 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 Moderate amt sanguineous exudate noted (L)3cm x (W)1cm x (D)7.4cm.Erythema periwound secondary to skin erosions. Partially opened DTPI L ischium .Base of wound purple,fluctuant with red borders.Open areas at base of this wound are beefy red in colour.Moderate amt sanguineous exudate noted.(L)7cm x (W)6.8cm. DTPI R ischium.Wound is fluctuant-purple in center with surrounding Maroon colour, and is partially opened with a small area of 5% that is necrotic.(L) 6.5cm x (W)5.5cm. Red skin erosion periwound. Partial thickness pressure injury L hip. Base of wound is moist -viable. Edges adherent and dry. Periwound without erythema or induration(L)1.2cm x (W)0.5cm. Elongate partial thickness wound posterior upper L thigh .Base of wound is moist -viable .Small amt sanguineous exudate noted. (+) maceration along borders. Erythema without induration or elevation in skin temp noted.(L)2cm x (W )9.4cm. DTPI noted to R heel .Base of injury is indurated and maroon in colour. Periwound is firm without erythema. (L)1.5cm x (W)1cm.R heel without evidence of skin breakdown. UPDATE with Full thickness pressure injury sacrum resolving. Less depth noted to tunnel, but base of wound obscured due to size and shape of wound (L)2cm x (W )0.9cm with tunneling at 12 by 3cm. Full thickness wound R ischium with 60% loose soft necrosis. 40% slough with additional necrosis along edges and periwound .No odor noted. (L)6cm x (W)6.3cm x (D)3.2cm undermining 9-12 by 3.1cm @11O'Clock. MASD with Gross erythema with skin erosion entire buttocks extending down into both ischial and both upper thighs including scrotum and bilat groin areas. Scattered satellite lesions with small amt bleeding from these areas. Small area of dry eschar noted to L buttocks (L)1.9cm x (W)2cm. Reabsorbed DTPI with stable dry brown eschar R heel (L)1.5cm x (W)2.5cm Periwound without erythema ,induration or fluctuance. Small dry scab noted to L ear without erythema periwound. No new skin concerns noted. Tx.Plan: Cleanse Sacrum with Saline. Loosely pack with Hydrogel impregnated Kerlix. Apply Triad Paste periwound. Cover with ABD pad. Daily and prn. Cleanse R and L ischial wounds with Saline. Apply Moisture Barrier Paste.Cover with abd pads Daily and prn. Apply Moisture Barrier to skin erosions on buttocks,scrotum, and posterior aspects of both thighs.Cover with ABD pad daily and prn. Cleanse wound L hip with Saline. Apply Moisture Barrier paste .Cover with Optifoam drsg Daily and prn. Cleanse wound posterior upper L thigh with saline .Apply Hydrogel. Cover with Optifoam drsg Daily and prn. Apply Cavilon Skin Barrier to L earlobe daily. Please monitor. Apply Cavilon Skin Barrier to L heel. Cover with Optifoam drsg. Change every 7 days and prn. Apply Cavilon Skin Barrier to R heel. Cover with Optifoam drsg .Change every 7 days and prn. Air fluidized mattress. Reposition every 2hours or as tolerated. Off-load heels with pillow. (2) Acute and chronic respiratory failure Assessment & Plan: cont with breathing treatments trach stable trach site clean will change dressings daily (3) Acute pancreatitis Assessment & Plan: Findings consistent with uncomplicated nonnecrotizing acute pancreatitis. No evidence of associated peripancreatic abscess Surgical changes as described, including right lower quadrant ileostomy, subtotal colectomy with Haroldo procedure. Wall thickening of the Haroldo pouch. This could indicate inflammation. However, this is also present on both of the prior 2 exams and may be baseline for this patient Evidence of mild anasarca, with edema of the subcutaneous fat. This is a new finding Chronic appearing decubitus changes of the bilateral ischia. Correlate with clinical findings Complete left lower lobe consolidation. This is similar to both of the prior CTs , and is likely a chronic finding. There is progressive chronic interstitial fibrotic change involving the right middle lobe. There is also right lower lobe granulomatous calcification Extensive pulmonary parenchymal opacities bilaterally may reflect acute inflammation/infection, edema, progressive chronic scarring, or combination of the above. These are considerably more extensive than on the prior study Trace bilateral pleural fluid New finding of nonobstructive right renal collecting system calculs 4 mm calculus within the bladder lumen. This may represent a bladder calculus, a calculus and left ureteral orifice, or recently passed stone. If either of the latter, no evidence of resultant hydronephrosis or hydroureter Suprapubic catheter. This is a new finding since the 2016 exams. Interim removal of previously demonstrated Bledsoe catheter Gastrostomy Left renal cysts. Subcentimeter low-attenuation right renal lesions, too small to characterize, most likely benign simple cysts. No further follow-up necessary elevated amylase/lipase related to lipids leukocytosis GNR Bacteremia transfused anemia Unfortunately patient not able to participate in exam and difficult to identify if clinically pancreatitis or just laboratory data. Recent CT with uncomplicated pancreatitis but enzymes still remain elevated. Patient tolerated tube feeds. Patient with gram-negative belle bacteremia likely from UTI. Patient remains febrile intermittently with worsening leukocytosis on IV antibiotics. -no acute surgical intervention planned -transfuse as per hematology -Abx as per ID -trend lip/brit[place] - recent finding based on CT given patient cannot given history or participate in exam. CT with uncomplicated pancreatitis. okay for diet / feeds for now. IV fluids Javier Ricardo Jan 09, 2019 14:23
--- NOTE | 2019-01-09 14:42 | NUR ---
RD ASSESSMENT & RECOMMENDATIONS SEE CARE ACTIVITY FOR COMPLETE ASSESSMENT DAILY ESTIMATED NEEDS: Needs based on critical care, wound/ 63kg 22-30 kcals/kg 5473-3759 total kcals 1.5-2 g protein/kg 94-126 g total protein 25-30 mL/kg 2666-5038 total fluid mLs NUTRITION DIAGNOSIS: 1) Increased kcal and protein needs r/t wound healing as evidenced by pt w/ multiple advanced wounds, including Unstageable wound at L earlobe. 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 3) Altered nutrition related lab values r/t clinical status as evidenced by hyperglycemia w/ POC glu (93-191 improved), elev K (5.2, 5.7- now wnl-> back up 5.1), elev Na (148 -> wnl), elev BUN (30->25). CURRENT TF:Glucerna 1.5 @ 45ml/hr x 24 hrs + PS BID ENTERAL NUTRITION RECOMMENDATIONS: Nepro @ 35ml/hr x 24 hrs + Prosource 1pkt TID to provide to provide 840ml, 1512kcal, 68g +33g prot, 611ml free water - REC TF CHANGE NEPRO -> freuqent episodes of hyperkalemia : will provide 890mg K per day (1831mg less K than current TF) - Add Prosource 1pkt TID to meet protein needs - Keep HOB >30degrees/ water flush per MD - Will provide 112g CHO per day ADDITIONAL RECOMMENDATIONS: * REcalibrate bed scale wt for accurate CBW * Rec TF change as above -> to NEPRO for less K content * Wound care: add MITCHELL BID + Vit C 500mg QD * Monitor BGs closely: improved w/ Levemir BID * Check follow up Triglyceride and lipase level * Consider TPN if Lipase is not trending down. * Monitor lytes, replete as needed (low phos)
[2019-01-09 16:00] VITALS: BP 110/67
[2019-01-09] MEDS: Amikacin 1,000 MG in NS 110 ML IV SCH (18:13)
--- NOTE | 2019-01-09 18:22 | General Progress Note ---
Assessment/Plan Assessment/Plan Assessment/Recs: # Leukocytosis/Elevated white blood cell count,potentially due to infection with gram negative bacteremia, with uti and on abx --> have reviewed peripheral smear and bandemia/neutrophilia noted on initial smear was noted --> continue antibiotics if they have been started by ID team, titrate and change as required --> monitor for resolution ---> WBC trend: 11-->16-->15-->14-->11-->12-->10.8-->11-->12-->11-->16-->14-->16 -->13-->13-->11-->12 # Anemia of chronic disease due to underlying chronic medical issues, multifactorial --> Anemia workup has been reviewed, Ferritin [id number] --> No evidence of hemolysis is noted, peripheral smear reviewed --> Hgb goal >7. Transfuse prn. --> Epogen or iron at this time is not indicated --> Medications have been reviewed --> HGB trend: 7.8-->7.6-->6.2-->6.4->7.1-->8.7-->9.1-->8.4-->7.8-->9.4-->7.3--> 10.6-->10.1-->11-->9.3-->9.9-->9-->8-->7.6 --> received prbc 12/25 # Thrombocytopenia - potential causes multifactorial, evaluate liver and viral etiologies to begin, also could be related to underlying medications --> Hep panel and HIV negative --> US abd to evaluate for cirrhosis and hsm reviewed --> Peripheral smear ordered to evaluate for blasts/schistocytes does not reveal any --> abx and other meds have been reviewed --> ok for ppx if plt >50k w/ either heparin or lovenox # Hypercalcemia potentailly related to dehydration --> s/p aredia as per renal --> pth reviewed --> trend Ca as needed # Severe prerenal azotemia, on ivf --> improve po oral intake and consider appetite stimulant # Severe Sepsis, CXR: Probable small left pleural effusion --> also evident on prior study 11/22/2017 --> appreciate ID recs # Bacteremia, likely from UTI, PNA --> tolerating abx well --> as per pulm # Decub ulceration --> as per surg The timing of this note does not necessarily reflect the time of the patient was seen. Greatly appreciate consultation! Subjective Constitutional: Denies: no symptoms, chills, diaphoresis, fever, malaise, weakness, other HEENT: Denies: no symptoms, eye pain, blurred vision, tearing, double vision, ear pain, ear discharge, nose pain, nose congestion, throat pain, throat swelling, mouth pain, mouth swelling, other Gastrointestinal/Abdominal: Denies: no symptoms, abdomen distended, abdominal pain, black stools, tarry stools, blood in stool, constipated, diarrhea, difficulty swallowing, nausea, poor appetite, poor fluid intake, rectal bleeding , vomiting, other Genitourinary: Denies: no symptoms, burning, discharge, frequency, flank pain, hematuria, incontinence, pain, urgency, other Neurologic/Psychiatric: Denies: no symptoms, anxiety, depressed, emotional problems, headache, numbness, paresthesia, pre-existing deficit, seizure, tingling, tremors, weakness, other Endocrine: Denies: no symptoms, excessive sweating, flushing, intolerance to cold, intolerance to heat, increased hunger, increased thirst, increased urine, unexplained weight gain, unexplained weight loss, other Hematologic/Lymphatic: Denies: no symptoms, anemia, easy bleeding, easy bruising, other Allergies: Coded Allergies: PENICILLINS (Unverified Allergy, Unknown, 02/26/16) POLYMYXIN B (Unverified Allergy, Unknown, 02/26/16) VANCOMYCIN (Unverified Allergy, Unknown, 02/26/16) Subjective 12/11: seen by bedside, vent dependent, leukocytosis, 11, hgb 7, will transfuse, no events 12/12: awake, comfortable wbc trending up at 16, no events 12/13: hgb 6.4, receiving transfusion, , wbc remains elevated. no acute events 12/14: seen by bedside, awake, comfortable low grade fever, wbc remains elevated at 15, bacteremia on IV Abx, hgb 7.1, will transfuse as needed 12/15: Wbc remains elevated, no events reported, hgb trending up 12/16: seen by bedside, awake, comfortable, no events 12/18: seen in the room, on vent and trach, no events 12/19: reviewed cbc and appears relatively stable, on starlix, remains in sdu 12/20: seen by bedside, on vent, mild leukocytosis 12/21: Pt is resting , on vent, wbc trending up , no events 12/22: exam is essentially unchanged, on abx, have discussed with pcp, rn, wbc better 12/23: transfuse wbc 11, on abx 12/24: no events to report, on vent/trach care, without issue 12/26: in icu, resting comfortanly, off pressors 12/27: tolerating feeding and vent well, no issues, ca reviewed 12/28: no events, remains nonverbal, without complaints 12/29: no events, on vent/trach, nonverbal, no fevers 12/30: no events, labs have been reviewed, cbc noted, wbc higher 01/01: no events, on abx, wbc better, hgb lower, with nausea, on zofran 01/02: less abdominal pain, on zofran on prn basis, no f/c 01/03: no events to report, trach to vent, labs reviewed, no complaints 01/04: wounds examined, is trach to vent, no major issues 01/05: monitoring cbc, no acute bleeding episodes, remains in the sdu 01/06: vent setting essentially unchanged, breathing normal, hgb 8.5 01/08: was bleeding this am, heparin was discontinued, scds ordered 01/09: stable, unchanged, dressings intact, no f/c Objective Last 24 Hour Vital Signs Date Time Temp Pulse Resp B/P (MAP) Pulse Ox O2 Delivery O2 Flow Rate FiO2 01/09/19 17:15 102 23 30 01/09/19 16:00 97.9 104 22 110/67 (81) 100 01/09/19 16:00 Mechanical Ventilator 01/09/19 16:00 108 01/09/19 16:00 30 01/09/19 15:10 109 28 30 01/09/19 13:05 106 21 30 01/09/19 12:00 102 01/09/19 12:00 Mechanical Ventilator 01/09/19 12:00 30 01/09/19 12:00 98.2 100 20 140/69 (92) 98 01/09/19 11:45 105 24 30 01/09/19 09:02 102 26 30 01/09/19 08:00 30 01/09/19 08:00 100 01/09/19 08:00 Mechanical Ventilator 01/09/19 07:41 102 26 30 01/09/19 04:58 102 20 30 01/09/19 04:00 Mechanical Ventilator 01/09/19 04:00 109 01/09/19 04:00 97.0 111 23 113/69 (84) 99 01/09/19 04:00 30 01/09/19 02:53 103 26 30 01/09/19 01:00 104 22 30 01/09/19 00:00 98.1 108 23 101/66 (78) 98 01/09/19 00:00 Mechanical Ventilator 01/09/19 00:00 103 01/09/19 00:00 30 01/08/19 23:24 106 21 30 01/08/19 21:23 102 20 30 01/08/19 20:00 30 01/08/19 20:00 Mechanical Ventilator 01/08/19 20:00 97.5 103 23 97/60 (72) 98 01/08/19 20:00 105 01/08/19 18:39 104 28 30 Intake and Output 01/08/19 01/09/19 18:59 06:59 Intake Total 1210 ml 605 ml Output Total 1100 ml 850 ml Balance 110 ml -245 ml Intake Free Water 450 ml IV Total 220 ml 110 ml Tube Feeding 540 ml 495 ml Output Urine Total 750 ml 550 ml Stool Total 350 ml 300 ml Laboratory Tests 01/09/19 03:45: White Blood Count 8.4, Red Blood Count 2.52L, Hemoglobin 7.7L, Hematocrit 23.8L , Mean Corpuscular Volume 94, Mean Corpuscular Hemoglobin 30.6, Mean Corpuscular Hemoglobin Concent 32.5, Red Cell Distribution Width 17.5H, Platelet Count 279, Mean Platelet Volume 8.0, Neutrophils (%) (Auto) , Lymphocytes (%) (Auto) , Monocytes (%) (Auto) , Eosinophils (%) (Auto) , Basophils (%) (Auto) , Differential Total Cells Counted 100, Neutrophils % ( Manual) 69, Lymphocytes % (Manual) 18L, Monocytes % (Manual) 7, Eosinophils % ( Manual) 6H, Basophils % (Manual) 0, Band Neutrophils 0, Platelet Estimate Adequate, Platelet Morphology Normal, Polychromasia 1+, Anisocytosis 1+, Sodium Level 137, Potassium Level 5.1, Chloride Level 105, Carbon Dioxide Level 21, Anion Gap 11, Blood Urea Nitrogen 25H, Creatinine 0.7, Estimat Glomerular Filtration Rate , Glucose Level 114H, Calcium Level 8.0L 01/09/19 16:35: Amikacin Level Trough < 2.5L Height (Feet): 5 Height (Inches): 8.00 Weight (Pounds): 145 Objective HEENT: Eyes were normal. ENT, mucous membranes not dehydrated. NECK: Supple. There was no goiter. No mass. No lad LUNGS: Clear. Vent++/trach HEART: PMI was in the fifth left intercostal space in midclavicular line. There was normal S1 and normal S2. There was no murmur. no s3/s4 ABDOMEN: Soft and nontender without organomegaly. palpable. Normal bowel sounds without bruits. There was no guarding. ++ suprapubic catheter EXTREMITIES: No cyanosis, no clubbing, and no edema. Extremities warm. Adarsh Kim MD Jan 09, 2019 18:22
--- NOTE | 2019-01-09 19:23 | NUR ---
NURSE NOTES: Received patient from SHAKIR Kohler. Patient is resting well. On trach Portex 7 to vent with settings of AC:18, TV:500, FiO2:30% PEEP:5 and O2 saturating at 93%. Gtube is flushing well and feeding of Glucerna 1.5 running at 45ml/hr. Bledsoe catheter is intact and draining, along with the RUQ colostomy bag. Bed on lowest position with alarm activated. Will continue plan of care.
--- NOTE | 2019-01-09 19:24 | NUR ---
HAND-OFF: Report given to SHAKIR Smith. Pt in stable condition.
[2019-01-09 20:00] VITALS: BP 102/65
--- NOTE | 2019-01-09 20:38 | Cardiology Progress Note ---
Assessment/Plan Assessment/Plan 1. Supraventricular tachycardia. recurrent 12/09 and 12/10 2. Renal insufficiency. 3. Hyponatremia. 4. 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 6. History of bowel resection. 7. History of CVA. 8. Chronic tracheostomy. 9. Diabetes mellitus. 10 pancreatitis 11. anemai off Cardizem via gtube and dig and atenolol last psvt was on 12/31 short lived watch for recurrence tele reviewed heart rate stable Subjective ROS Limited/Unobtainable: Yes Subjective on the vent Objective Last 24 Hour Vital Signs Date Time Temp Pulse Resp B/P (MAP) Pulse Ox O2 Delivery O2 Flow Rate FiO2 01/09/19 20:13 101 25 30 01/09/19 20:00 Mechanical Ventilator 01/09/19 20:00 30 01/09/19 20:00 97.2 103 21 102/65 (77) 94 01/09/19 19:26 103 01/09/19 17:15 102 23 30 01/09/19 16:00 97.9 104 22 110/67 (81) 100 01/09/19 16:00 Mechanical Ventilator 01/09/19 16:00 108 01/09/19 16:00 30 01/09/19 15:10 109 28 30 01/09/19 13:05 106 21 30 01/09/19 12:00 102 01/09/19 12:00 Mechanical Ventilator 01/09/19 12:00 30 01/09/19 12:00 98.2 100 20 140/69 (92) 98 01/09/19 11:45 105 24 30 01/09/19 09:02 102 26 30 01/09/19 08:00 30 01/09/19 08:00 100 01/09/19 08:00 Mechanical Ventilator 01/09/19 07:41 102 26 30 01/09/19 04:58 102 20 30 01/09/19 04:00 Mechanical Ventilator 01/09/19 04:00 109 01/09/19 04:00 97.0 111 23 113/69 (84) 99 01/09/19 04:00 30 01/09/19 02:53 103 26 30 01/09/19 01:00 104 22 30 01/09/19 00:00 98.1 108 23 101/66 (78) 98 01/09/19 00:00 Mechanical Ventilator 01/09/19 00:00 103 01/09/19 00:00 30 01/08/19 23:24 106 21 30 01/08/19 21:23 102 20 30 General Appearance: WD/WN, no apparent distress, combative, on vent Intake and Output 01/08/19 01/09/19 18:59 06:59 Intake Total 1210 ml 605 ml Output Total 1100 ml 850 ml Balance 110 ml -245 ml Intake Free Water 450 ml IV Total 220 ml 110 ml Tube Feeding 540 ml 495 ml Output Urine Total 750 ml 550 ml Stool Total 350 ml 300 ml Laboratory Tests Test 01/09/19 03:45 01/09/19 16:35 White Blood Count 8.4 K/UL (4.8-10.8) Red Blood Count 2.52 M/UL (4.70-6.10) L Hemoglobin 7.7 G/DL (14.2-18.0) L Hematocrit 23.8 % (42.0-52.0) L Mean Corpuscular Volume 94 FL (80-99) Mean Corpuscular Hemoglobin 30.6 PG (27.0-31.0) Mean Corpuscular Hemoglobin Concent 32.5 G/DL (32.0-36.0) Red Cell Distribution Width 17.5 % (11.6-14.8) H Platelet Count 279 K/UL (150-450) Mean Platelet Volume 8.0 FL (6.5-10.1) Neutrophils (%) (Auto) % (45.0-75.0) Lymphocytes (%) (Auto) % (20.0-45.0) Monocytes (%) (Auto) % (1.0-10.0) Eosinophils (%) (Auto) % (0.0-3.0) Basophils (%) (Auto) % (0.0-2.0) Differential Total Cells Counted 100 Neutrophils % (Manual) 69 % (45-75) Lymphocytes % (Manual) 18 % (20-45) L Monocytes % (Manual) 7 % (1-10) Eosinophils % (Manual) 6 % (0-3) H Basophils % (Manual) 0 % (0-2) Band Neutrophils 0 % (0-8) Platelet Estimate Adequate Platelet Morphology Normal Polychromasia 1+ Anisocytosis 1+ Sodium Level 137 MMOL/L (136-145) Potassium Level 5.1 MMOL/L (3.5-5.1) Chloride Level 105 MMOL/L (98-107) Carbon Dioxide Level 21 MMOL/L (21-32) Anion Gap 11 mmol/L (5-15) Blood Urea Nitrogen 25 mg/dL (7-18) H Creatinine 0.7 MG/DL (0.55-1.30) Estimat Glomerular Filtration Rate mL/min (>60) Glucose Level 114 MG/DL (74-106) H Calcium Level 8.0 MG/DL (8.5-10.1) L Amikacin Level Trough < 2.5 ug/mL (4.0-8.0) L Donny Kelley MD Jan 09, 2019 20:38
--- NOTE | 2019-01-09 23:47 | NUR ---
NURSE NOTES: Patient was seen by Dr. Hutchins. Discharge ordered for patient to be sent back to [facility] (not [facility]). Will endorse to morning RN to clarify with Renae Campos, assistant case manager. Per MD; if any issues to send patient back to [facility] for case management to contract MD.
[2019-01-10] VITALS: BP 100/64
--- NOTE | 2019-01-10 03:00 | Progress Note ---
DATE: 01/09/2019 SUBJECTIVE: The patient is awake, makes eye contact, but not responsive. He was afebrile but had persistent tachycardia. PHYSICAL EXAMINATION: VITAL SIGNS: Blood pressure 102/65, pulse 103, respirations 25, and temperature 97.2. HEENT: Eyes were normal. ENT, mucous membranes were moist and intact. NECK: Supple with no JVD without lymph nodes. Tracheostomy site is clean. LUNGS: Clear without rhonchi, rales, or wheezing. Secretions are small, thin, and barros. HEART: Normal sounds with regular beats. No S3, S4, or pericardial rub. ABDOMEN: Soft and nontender with normal bowel sounds. Gastrostomy site is clean. EXTREMITIES: Warm without cyanosis, clubbing, or edema. LABORATORY AND DIAGNOSTIC DATA: Hemoglobin is 7.7 and hematocrit 23.8 with MCV of 94, WBC of 8.4, and platelets are 279. His BUN and creatinine is 25 and 0.7 respectively. His sodium is 137, potassium 5.1, chloride 105, CO2 is 21. Chest x-ray showed bilateral infiltrates in the lower lobe, right more than the left. This is unchanged now over the last several days. IMPRESSION: The patient is now sufficiently stable to be discharged to the extended care facility. Repeat laboratory tests will be done in the a.m. Neema Hutchins M.D. DR: Zee JOB#: [id number] CC:
[2019-01-10 04:00] VITALS: BP 103/72
[2019-01-10] MEDS: NovoLOG Insulin Flexpen SUBQ SCH ×3 (05:07→18:00)
[2019-01-10 05:28] LABS: HEMATOCRIT 22.9 % (42.0-52.0); HEMOGLOBIN 7.4 G/DL (14.2-18.0); MEAN CORPUSCULAR VOLUME 94 FL (80-99); PLATELET COUNT 323 K/UL (150-450); RED BLOOD COUNT 2.43 M/UL (4.70-6.10); RED CELL DISTRIBUTION WIDTH 18.2 % (11.6-14.8)
[2019-01-10 05:46] LABS: AMYLASE 151 U/L (25-115)
--- NOTE | 2019-01-10 07:29 | NUR ---
NURSE NOTES: Hemoglobin this morning is 7.4. Dr. Kim progress notes on 01/09 to transfuse hgb <7 PRN. Will monitor.
--- NOTE | 2019-01-10 07:30 | NUR ---
HAND-OFF: Report given to SHAKIR KRISHNA. Endorsed that Dr. Hutchins would like to discharge patient back to [facility], orders are in. Per Dr. Hutchins; if any issues back to [facility] for Case management to contact MD directly.
--- NOTE | 2019-01-10 07:40 | Urology Progress Note ---
Assessment/Plan Assessment/Plan 1. Urinary retention with chronic suprapubic tube. 2. Probable neurogenic bladder. 3. UTI colonization. 4. Hematuria. 5. Proteinuria. 6. Cystitis. 7. Renal cyst versus small mass. 8. Scrotal edema. 9. Hydrocele. new SP tube placed 4/ hand irrigate PRN abx as ordered serial renal imaging Subjective Allergies: Coded Allergies: PENICILLINS (Unverified Allergy, Unknown, 02/26/16) POLYMYXIN B (Unverified Allergy, Unknown, 02/26/16) VANCOMYCIN (Unverified Allergy, Unknown, 02/26/16) Subjective all noted, new sp tube draining ok, mild leakage Objective Last 24 Hour Vital Signs Date Time Temp Pulse Resp B/P (MAP) Pulse Ox O2 Delivery O2 Flow Rate FiO2 01/10/19 04:48 99 22 30 01/10/19 04:00 97.5 99 24 103/72 (82) 98 01/10/19 04:00 30 01/10/19 04:00 Mechanical Ventilator 01/10/19 03:26 100 01/10/19 03:05 101 21 30 01/10/19 00:31 100 26 30 01/10/19 00:00 Mechanical Ventilator 01/10/19 00:00 30 01/10/19 00:00 97.9 101 22 100/64 (76) 92 01/09/19 23:36 102 01/09/19 23:10 102 20 30 01/09/19 21:15 104 23 30 01/09/19 20:13 101 25 30 01/09/19 20:00 Mechanical Ventilator 01/09/19 20:00 30 01/09/19 20:00 97.2 103 21 102/65 (77) 94 01/09/19 19:26 103 01/09/19 17:15 102 23 30 01/09/19 16:00 97.9 104 22 110/67 (81) 100 01/09/19 16:00 Mechanical Ventilator 01/09/19 16:00 108 01/09/19 16:00 30 01/09/19 15:10 109 28 30 01/09/19 13:05 106 21 30 01/09/19 12:00 102 01/09/19 12:00 Mechanical Ventilator 01/09/19 12:00 30 01/09/19 12:00 98.2 100 20 140/69 (92) 98 01/09/19 11:45 105 24 30 01/09/19 09:02 102 26 30 01/09/19 08:00 30 01/09/19 08:00 100 01/09/19 08:00 Mechanical Ventilator 01/09/19 07:41 102 26 30 Intake and Output 01/09/19 01/10/19 19:00 07:00 Intake Total 1210 ml 1164 ml Output Total 1150 ml 800 ml Balance 60 ml 364 ml Intake Free Water 450 ml 300 ml IV Total 220 ml 224 ml Tube Feeding 540 ml 540 ml Other 100 ml Output Urine Total 1000 ml 550 ml Stool Total 150 ml 250 ml Microbiology Date/Time Source Procedure Growth Status 12/30/18 17:50 Blood Blood Culture - Final NO GROWTH AFTER 5 DAYS Complete 12/28/18 04:30 Other(Specify in comment) Catheter Tip Culture - Final NO GROWTH AFTER 4 DAYS Complete 12/20/18 13:00 Sputum Induced Gram Stain - Final Complete 12/20/18 13:00 Sputum Culture - Final Staphylococcus Aureus - Mrsa Usual Respiratory Shelly Complete 12/30/18 17:37 Stool Clostridium difficile Toxin Assay - Final Complete 12/26/18 04:00 Urine,Clean Catch Urine Culture - Final Meera Albicans Complete 12/30/18 17:37 Sacral Wound Gram Stain - Final Complete 12/30/18 17:37 Wound Culture - Final K.pneumoniae Carbapenem Resist Escherichia Coli - Esbl Proteus Mirabilis Complete Current Medications Medications (Trade) Dose Ordered Sig/Fransisco Route PRN Reason Start Time Stop Time Status Last Admin Dose Admin Albuterol/ Ipratropium (Albuterol/ Ipratropium) 3 ml Q4H PRN HHN Shortness of Breath 01/08/19 14:00 01/13/19 13:59 Amikacin Protocol (Amikacin pharmacy to dose) 1 ea DAILY PRN MISC Per rx protocol 01/03/19 16:30 02/02/19 16:29 Amikacin Sulfate 1000 mg/Sodium Chloride 114 ml @ 228 mls/hr Q36H IV 01/05/19 06:00 01/12/19 05:59 01/09/19 18:13 Aztreonam 2 gm/ Dextrose 110 ml @ 220 mls/hr Q8H IVPB 01/02/19 16:00 01/13/19 15:59 01/09/19 23:03 Calcitonin Rew (Miacalcin) 1 sprays DAILY NASAL 12/28/18 09:00 01/24/19 10:59 01/09/19 07:53 Chlorhexidine Gluconate (Sandra-Hex 2%) 1 applic DAILY@2000 TOPIC 01/10/19 20:00 02/09/19 19:59 Dextrose (Dextrose 50%) 25 ml Q30M PRN IV Hypoglycemia 01/01/19 00:15 01/31/19 00:14 Dextrose (Dextrose 50%) 50 ml Q30M PRN IV Hypoglycemia 01/01/19 00:15 01/31/19 00:14 Diltiazem HCl (Cardizem) 10 mg BIDPRN PRN IVP FOR HR >140 12/28/18 08:45 01/11/19 08:44 Gemfibrozil (Lopid) 600 mg TWICE A DAY GT 12/28/18 09:00 01/14/19 10:14 01/09/19 18:13 Insulin Aspart (NovoLOG) EVERY 6 HOURS SUBQ 01/01/19 06:00 01/31/19 05:59 01/10/19 05:07 Insulin Detemir (Levemir) 20 units Q12HR SUBQ 01/02/19 21:00 01/27/19 13:59 01/09/19 21:07 Lansoprazole (Prevacid) 30 mg BID GT 12/28/18 09:00 01/16/19 08:59 01/09/19 18:21 Mupirocin (Bactroban Oint) 1 applic BID TOPIC 01/08/19 09:00 01/13/19 08:59 01/09/19 18:13 Nateglinide (Starlix) 120 mg Q8HR ORAL 12/28/18 06:00 01/17/19 21:59 01/10/19 05:06 Laboratory Tests 01/09/19 16:35: Amikacin Level Trough < 2.5L 01/10/19 03:10: White Blood Count 8.0, Red Blood Count 2.43L, Hemoglobin 7.4L, Hematocrit 22.9L , Mean Corpuscular Volume 94, Mean Corpuscular Hemoglobin 30.4, Mean Corpuscular Hemoglobin Concent 32.3, Red Cell Distribution Width 18.2H, Platelet Count 323, Mean Platelet Volume 7.9, Neutrophils (%) (Auto) , Lymphocytes (%) (Auto) , Monocytes (%) (Auto) , Eosinophils (%) (Auto) , Basophils (%) (Auto) , Neutrophils % (Manual) [Pending], Lymphocytes % (Manual) [Pending], Platelet Estimate [Pending], Platelet Morphology [Pending], Amylase Level 151H, Lipase 819H Height (Feet): 5 Height (Inches): 8.00 Weight (Pounds): 144 Objective exam stable, urine yellow with debris Ramez Gonzalez MD Jan 10, 2019 07:40
--- NOTE | 2019-01-10 07:52 | Infectious Diseases Prog Note ---
Assessment/Plan Assessment/Plan Gram positive bacteremia- PICC line infection -12/26 2d echo: no vegetations 12/23 SP -Removal of PICC line - -12/20 1/ E. fecalis (S Van, amp), 1/2 MRSA. PICC line; Peripheral NTD; Bcx NTD; 12/23 Neg Septic shock , SP Severe Sepsis 2ry to GNR bacteremia, PNA, sp Rx -01/02 CXR: Chronic appearing interstitial opacities are again demonstrated in the right upper lobe as well as more generalized. There is suggestion of small bilateralpleural effusions, unchanged -12/24 CXR: Bilateral interstitial and airspace opacities, worse in the right upper lobe, slightly worse than prior study. -12/21 CXR: Bilateral interstitial and airspace opacities, associated bronchiectasis are again demonstrated. There is blunting of the left costophrenic sulcus again demonstrated. -12/17 CXR: No significant interval change in the diffuse patchy bilateral reticular interstitial and airspace opacities. -CXR: Probable small left pleural effusion, also evident on prior study 2017. Bilateral interstitial disease, unchanged, suspect chronic. Correlate with clinical findings -sp CX MDR PsA (S Gentamicin, AMikacin, Cefepime, Aztreonam, Tobramycin); repeats sp cx 12/20 MRSA; likely colonzier as vent settings stable GNR bacteremia, likely from UTI -CT abd/p: Findings consistent with uncomplicated nonnecrotizing acute pancreatitis. No evidence of associated peripancreatic abscess Surgical changes as described, including right lower quadrant ileostomy, subtotal colectomy with Haroldo procedure. Wall thickening of the Haroldo pouch. This could indicate inflammation. However, this is also present on both of the prior 2 exams and may be baseline for this patien. Evidence of mild anasarca, with edema of the subcutaneous fat. This is a new finding. Chronic appearing decubitus changes of the bilateral ischia. Correlate with clinical findings. Complete left lower lobe consolidation. This is similar to both of the prior CTs, andis likely a chronic finding. There is progressive chronic interstitial fibrotic change involving the right middle lobe. There is also right lower lobe granulomatous calcification, Extensive pulmonary parenchymal opacities bilaterally may reflect acute inflammation/infection, edema, progressive chronic scarring, orcombination of the above. These are considerably more extensive than on the prior study -u/a 10-15, nit neg, luek +3; ucx 50-60k Enterococcus (Vanco resist; S AMp), 40-50 K Proteus -12/07 Bcx 3/ Proteus; 12/08 Bcx 1/4 Proteus (S Aztreonam; R Cipro, levo; I Imipenem); Acute pancreatitis -lipase ~1k Fever - recurrent- in the setting of bacteremia and pancreaitis; Leukocytosis , recurrent, increased--in the setting of bacteremia, UTI and acute pancreatitis -CT abd/p Suspected active decubitus ulcer right side with evidence of drainage. Correlate clinically. No deeper abscess or drainable collections identified. The ulcer probes to the right ischium. Acute osteomyelitis or acute on chronic osteomyelitis may be considered. Chronic bilateral grade 4 decubitus ulcers with the large areas absent eroded posterior ischia and absent lower sacrum and coccyx due to previous osteomyelitis. Scrotal swelling with skin thickening and suggestion of heterogeneous fluid within the scrotal sac. Correlate clinically. No evidence of intra-abdominal or pelvic abscess or other acute pathology.Chronic dense left posterior basilar consolidation/atelectasis. Extensive fibrosis and cystic replacement anterior right lung base middle lobe. Sacral decubitus ulcer- w/ acute or acute on chronic OM --sacral wound cx KPC K.pna (S Cefepime, Amikacin), E.coli (S Zosyn), P. mirabilis (R cipro/levo, amp) CT 12/30/18 - OM of sacrum CONS bacteremia- likely contaminant -12/12 Bcx / CONS; 12/14 Bcx Neg MAULIK, improving dysphagia s/p peg COPD GBS quadriplegia chronic resp failure s/p trach HTN CVA, nonverbal anemia SNF resident Plan: -Continue Aztreonam #/ and Amikacin #/ for KPC in sacral wound -requested Aztreonam sensitivities -may try Cefepime trial based on wound cx results (unclear what is the PNC allergy) -will likely treat for 6 weeks for OM pending sacral wound cx 01/03/19 SP Linezolid #14 -12/22 SP Aztreonam #14 -12/21 SP INH tobramycin #7 -12/16 SP IV Daptomycin #7 -f/u Bcx x2, sacral wound cx -Monitor CBC/CMP, temperatures -PEG/Trach care -Aspiration precautions -management of acute pancreatitis per primary team. -wound care per surgical team Subjective Allergies: Coded Allergies: PENICILLINS (Unverified Allergy, Unknown, 02/26/16) POLYMYXIN B (Unverified Allergy, Unknown, 02/26/16) VANCOMYCIN (Unverified Allergy, Unknown, 02/26/16) Subjective Patient afebrile Leukocytosis resolved Satting well on 30% O2 Objective Vital Signs Last 24 Hour Vital Signs Date Time Temp Pulse Resp B/P (MAP) Pulse Ox O2 Delivery O2 Flow Rate FiO2 01/10/19 04:48 99 22 30 01/10/19 04:00 97.5 99 24 103/72 (82) 98 01/10/19 04:00 30 01/10/19 04:00 Mechanical Ventilator 01/10/19 03:26 100 01/10/19 03:05 101 21 30 01/10/19 00:31 100 26 30 01/10/19 00:00 Mechanical Ventilator 01/10/19 00:00 30 01/10/19 00:00 97.9 101 22 100/64 (76) 92 01/09/19 23:36 102 01/09/19 23:10 102 20 30 01/09/19 21:15 104 23 30 01/09/19 20:13 101 25 30 01/09/19 20:00 Mechanical Ventilator 01/09/19 20:00 30 01/09/19 20:00 97.2 103 21 102/65 (77) 94 01/09/19 19:26 103 01/09/19 17:15 102 23 30 01/09/19 16:00 97.9 104 22 110/67 (81) 100 01/09/19 16:00 Mechanical Ventilator 01/09/19 16:00 108 01/09/19 16:00 30 01/09/19 15:10 109 28 30 01/09/19 13:05 106 21 30 01/09/19 12:00 102 01/09/19 12:00 Mechanical Ventilator 01/09/19 12:00 30 01/09/19 12:00 98.2 100 20 140/69 (92) 98 01/09/19 11:45 105 24 30 01/09/19 09:02 102 26 30 01/09/19 08:00 30 01/09/19 08:00 100 01/09/19 08:00 Mechanical Ventilator Height (Feet): 5 Height (Inches): 8.00 Weight (Pounds): 144 Objective GEN: NAD HEENT: CTAB, PERRL, MMM. LUNGS: CTAB, No W HEART: RRR, S1, S2 ABDOMEN: Soft and nontender Laboratory Tests Test 01/09/19 16:35 01/10/19 03:10 Amikacin Level Trough < 2.5 ug/mL (4.0-8.0) L White Blood Count 8.0 K/UL (4.8-10.8) Red Blood Count 2.43 M/UL (4.70-6.10) L Hemoglobin 7.4 G/DL (14.2-18.0) L Hematocrit 22.9 % (42.0-52.0) L Mean Corpuscular Volume 94 FL (80-99) Mean Corpuscular Hemoglobin 30.4 PG (27.0-31.0) Mean Corpuscular Hemoglobin Concent 32.3 G/DL (32.0-36.0) Red Cell Distribution Width 18.2 % (11.6-14.8) H Platelet Count 323 K/UL (150-450) Mean Platelet Volume 7.9 FL (6.5-10.1) Neutrophils (%) (Auto) % (45.0-75.0) Lymphocytes (%) (Auto) % (20.0-45.0) Monocytes (%) (Auto) % (1.0-10.0) Eosinophils (%) (Auto) % (0.0-3.0) Basophils (%) (Auto) % (0.0-2.0) Neutrophils % (Manual) Pending Lymphocytes % (Manual) Pending Platelet Estimate Pending Platelet Morphology Pending Amylase Level 151 U/L (25-115) H Lipase 819 U/L (73-393) H Current Medications Medications (Trade) Dose Ordered Sig/Fransisco Route PRN Reason Start Time Stop Time Status Last Admin Dose Admin Albuterol/ Ipratropium (Albuterol/ Ipratropium) 3 ml Q4H PRN HHN Shortness of Breath 01/08/19 14:00 01/13/19 13:59 Amikacin Protocol (Amikacin pharmacy to dose) 1 ea DAILY PRN MISC Per rx protocol 01/03/19 16:30 02/02/19 16:29 Amikacin Sulfate 1000 mg/Sodium Chloride 114 ml @ 228 mls/hr Q36H IV 01/05/19 06:00 01/12/19 05:59 01/09/19 18:13 Aztreonam 2 gm/ Dextrose 110 ml @ 220 mls/hr Q8H IVPB 01/02/19 16:00 01/13/19 15:59 01/09/19 23:03 Calcitonin Reading (Miacalcin) 1 sprays DAILY NASAL 12/28/18 09:00 01/24/19 10:59 01/09/19 07:53 Chlorhexidine Gluconate (Sandra-Hex 2%) 1 applic DAILY@2000 TOPIC 01/10/19 20:00 02/09/19 19:59 Dextrose (Dextrose 50%) 25 ml Q30M PRN IV Hypoglycemia 01/01/19 00:15 01/31/19 00:14 Dextrose (Dextrose 50%) 50 ml Q30M PRN IV Hypoglycemia 01/01/19 00:15 01/31/19 00:14 Diltiazem HCl (Cardizem) 10 mg BIDPRN PRN IVP FOR HR >140 12/28/18 08:45 01/11/19 08:44 Gemfibrozil (Lopid) 600 mg TWICE A DAY GT 12/28/18 09:00 01/14/19 10:14 01/09/19 18:13 Insulin Aspart (NovoLOG) EVERY 6 HOURS SUBQ 01/01/19 06:00 01/31/19 05:59 01/10/19 05:07 Insulin Detemir (Levemir) 20 units Q12HR SUBQ 01/02/19 21:00 01/27/19 13:59 01/09/19 21:07 Lansoprazole (Prevacid) 30 mg BID GT 12/28/18 09:00 01/16/19 08:59 01/09/19 18:21 Mupirocin (Bactroban Oint) 1 applic BID TOPIC 01/08/19 09:00 01/13/19 08:59 01/09/19 18:13 Nateglinide (Starlix) 120 mg Q8HR ORAL 12/28/18 06:00 01/17/19 21:59 01/10/19 05:06 Chico Allen MD Jan 10, 2019 07:52
[2019-01-10 08:00] VITALS: BP 111/76
--- NOTE | 2019-01-10 09:50 | Pulmonolgy Critical Care Note ---
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 Respiratory: monitor respiratory rate, adjust FIO2, CXR Cardiac: continue pressors, continue to monitor HR/BP Renal: F/U I&O, check electrolytes Infectious Disease: continue antibiotics Gastrointestinal: hold feedings Endocrine: check TSH, check HgA1C Neurologic: PRN Ativan, PRN Morphine, keep patient comfortable Prophylaxis: Protonix Time Spent (Minutes): 40 Notes 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, 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 with: nurses, consultants, field case managersenior sales operations manager - Objective Last 24 Hour Vital Signs Date Time Temp Pulse Resp B/P (MAP) Pulse Ox O2 Delivery O2 Flow Rate FiO2 01/10/19 08:41 102 21 30 01/10/19 08:00 98.7 98 28 111/76 (88) 98 01/10/19 07:11 100 20 30 01/10/19 04:48 99 22 30 01/10/19 04:00 97.5 99 24 103/72 (82) 98 01/10/19 04:00 30 01/10/19 04:00 Mechanical Ventilator 01/10/19 03:26 100 01/10/19 03:05 101 21 30 01/10/19 00:31 100 26 30 01/10/19 00:00 Mechanical Ventilator 01/10/19 00:00 30 01/10/19 00:00 97.9 101 22 100/64 (76) 92 01/09/19 23:36 102 01/09/19 23:10 102 20 30 01/09/19 21:15 104 23 30 01/09/19 20:13 101 25 30 01/09/19 20:00 Mechanical Ventilator 01/09/19 20:00 30 01/09/19 20:00 97.2 103 21 102/65 (77) 94 01/09/19 19:26 103 01/09/19 17:15 102 23 30 01/09/19 16:00 97.9 104 22 110/67 (81) 100 01/09/19 16:00 Mechanical Ventilator 01/09/19 16:00 108 01/09/19 16:00 30 01/09/19 15:10 109 28 30 01/09/19 13:05 106 21 30 01/09/19 12:00 102 01/09/19 12:00 Mechanical Ventilator 01/09/19 12:00 30 01/09/19 12:00 98.2 100 20 140/69 (92) 98 01/09/19 11:45 105 24 30 Status: awake Condition: critical HEENT: atraumatic Lungs: clear Heart: HR/BP unstable Abdomen: soft, active bowel sounds Extremities: no C/C/E Decubiti: location Accucheck: 134 Critical Care - Subjective ROS Limited/Unobtainable: Yes Condition: critical EKG Rhythm: Sinus Rhythm FI02: 30 Vent Support Breath Rate: 18 Vent Support Mode: AC Vent Tidal Volume: 500 Sputum Amount: Small PEEP: 5.0 PIP: 31 Tube Feeding Amount: 45 I&O: Intake and Output 01/09/19 01/10/19 19:00 07:00 Intake Total 1210 ml 1164 ml Output Total 1150 ml 800 ml Balance 60 ml 364 ml Intake Free Water 450 ml 300 ml IV Total 220 ml 224 ml Tube Feeding 540 ml 540 ml Other 100 ml Output Urine Total 1000 ml 550 ml Stool Total 150 ml 250 ml CXR: no change Labs: Laboratory Tests Test 01/09/19 16:35 01/10/19 03:10 Amikacin Level Trough < 2.5 ug/mL (4.0-8.0) L White Blood Count 8.0 K/UL (4.8-10.8) Red Blood Count 2.43 M/UL (4.70-6.10) L Hemoglobin 7.4 G/DL (14.2-18.0) L Hematocrit 22.9 % (42.0-52.0) L Mean Corpuscular Volume 94 FL (80-99) Mean Corpuscular Hemoglobin 30.4 PG (27.0-31.0) Mean Corpuscular Hemoglobin Concent 32.3 G/DL (32.0-36.0) Red Cell Distribution Width 18.2 % (11.6-14.8) H Platelet Count 323 K/UL (150-450) Mean Platelet Volume 7.9 FL (6.5-10.1) Neutrophils (%) (Auto) % (45.0-75.0) Lymphocytes (%) (Auto) % (20.0-45.0) Monocytes (%) (Auto) % (1.0-10.0) Eosinophils (%) (Auto) % (0.0-3.0) Basophils (%) (Auto) % (0.0-2.0) Differential Total Cells Counted 100 Neutrophils % (Manual) 60 % (45-75) Lymphocytes % (Manual) 24 % (20-45) Monocytes % (Manual) 5 % (1-10) Eosinophils % (Manual) 8 % (0-3) H Basophils % (Manual) 3 % (0-2) H Band Neutrophils 0 % (0-8) Platelet Estimate Adequate Platelet Morphology Normal Hypochromasia 3+ Anisocytosis 2+ Spherocytes 1+ Amylase Level 151 U/L (25-115) H Lipase 819 U/L (73-393) H Abhishek Guerra MD Jan 10, 2019 09:50
[2019-01-10] MEDS: Aztreonam Inj 2 GM in D5W 110 ML IVPB SCH ×2 (09:59→18:18)
[2019-01-10] MEDS: Levemir Flexpen SUBQ SCH (10:10)
--- NOTE | 2019-01-10 10:27 | GI Progress Note ---
Assessment/Plan Problems: (1) Colostomy care ICD Codes: Z43.3 - Encounter for attention to colostomy SNOMED: 100757477 (2) Anemia ICD Codes: D64.9 - Anemia, unspecified SNOMED: 102587490 (3) Feeding by G-tube ICD Codes: Z93.1 - Gastrostomy status SNOMED: 683816104, 538401787 (4) Abdominal wall cellulitis ICD Codes: L03.311 - Cellulitis of abdominal wall SNOMED: 61504765 (5) Acute pancreatitis ICD Codes: K85.90 - Acute pancreatitis without necrosis or infection, unspecified SNOMED: 287976008 (6) Pancreatitis ICD Codes: K85.90 - Acute pancreatitis without necrosis or infection, unspecified SNOMED: 56263912 Status: unchanged Status Narrative Discussed with Dr. Jackson Assessment/Plan Occult blood stool positive >>1/4 fu CBC Hepatitis panel negative Pancreatitis secondary to hypertriglyceridemia Elevated CA 19, mild Repeat lipid panel shows hypertriglyceridemia TriCor and Lopid Stable H&H - PRN transfusions ppi daily GTFs per RD repeat lipase Supportive care The patient was seen and examined at bedside and all new and available data was reviewed in the patients chart. I agree with the above findings, impression and plan. (Patient seen earlier today. Signature stamp does not reflect patient encounter time.). - Benjamin Jackson MD Subjective Subjective Limited Objective Last 24 Hour Vital Signs Date Time Temp Pulse Resp B/P (MAP) Pulse Ox O2 Delivery O2 Flow Rate FiO2 01/10/19 08:41 102 21 30 01/10/19 08:00 98.7 98 28 111/76 (88) 98 01/10/19 07:11 100 20 30 01/10/19 04:48 99 22 30 01/10/19 04:00 97.5 99 24 103/72 (82) 98 01/10/19 04:00 30 01/10/19 04:00 Mechanical Ventilator 01/10/19 03:26 100 01/10/19 03:05 101 21 30 01/10/19 00:31 100 26 30 01/10/19 00:00 Mechanical Ventilator 01/10/19 00:00 30 01/10/19 00:00 97.9 101 22 100/64 (76) 92 01/09/19 23:36 102 01/09/19 23:10 102 20 30 01/09/19 21:15 104 23 30 01/09/19 20:13 101 25 30 01/09/19 20:00 Mechanical Ventilator 01/09/19 20:00 30 01/09/19 20:00 97.2 103 21 102/65 (77) 94 01/09/19 19:26 103 01/09/19 17:15 102 23 30 01/09/19 16:00 97.9 104 22 110/67 (81) 100 01/09/19 16:00 Mechanical Ventilator 01/09/19 16:00 108 01/09/19 16:00 30 01/09/19 15:10 109 28 30 01/09/19 13:05 106 21 30 01/09/19 12:00 102 01/09/19 12:00 Mechanical Ventilator 01/09/19 12:00 30 01/09/19 12:00 98.2 100 20 140/69 (92) 98 01/09/19 11:45 105 24 30 Intake and Output 01/09/19 01/10/19 19:00 07:00 Intake Total 1210 ml 1164 ml Output Total 1150 ml 800 ml Balance 60 ml 364 ml Intake Free Water 450 ml 300 ml IV Total 220 ml 224 ml Tube Feeding 540 ml 540 ml Other 100 ml Output Urine Total 1000 ml 550 ml Stool Total 150 ml 250 ml Laboratory Tests Test 01/09/19 16:35 01/10/19 03:10 Amikacin Level Trough < 2.5 ug/mL (4.0-8.0) L White Blood Count 8.0 K/UL (4.8-10.8) Red Blood Count 2.43 M/UL (4.70-6.10) L Hemoglobin 7.4 G/DL (14.2-18.0) L Hematocrit 22.9 % (42.0-52.0) L Mean Corpuscular Volume 94 FL (80-99) Mean Corpuscular Hemoglobin 30.4 PG (27.0-31.0) Mean Corpuscular Hemoglobin Concent 32.3 G/DL (32.0-36.0) Red Cell Distribution Width 18.2 % (11.6-14.8) H Platelet Count 323 K/UL (150-450) Mean Platelet Volume 7.9 FL (6.5-10.1) Neutrophils (%) (Auto) % (45.0-75.0) Lymphocytes (%) (Auto) % (20.0-45.0) Monocytes (%) (Auto) % (1.0-10.0) Eosinophils (%) (Auto) % (0.0-3.0) Basophils (%) (Auto) % (0.0-2.0) Differential Total Cells Counted 100 Neutrophils % (Manual) 60 % (45-75) Lymphocytes % (Manual) 24 % (20-45) Monocytes % (Manual) 5 % (1-10) Eosinophils % (Manual) 8 % (0-3) H Basophils % (Manual) 3 % (0-2) H Band Neutrophils 0 % (0-8) Platelet Estimate Adequate Platelet Morphology Normal Hypochromasia 3+ Anisocytosis 2+ Spherocytes 1+ Amylase Level 151 U/L (25-115) H Lipase 819 U/L (73-393) H Height (Feet): 5 Height (Inches): 8.00 Weight (Pounds): 144 General Appearance: no apparent distress Cardiovascular: normal rate Respiratory/Chest: normal breath sounds, no respiratory distress Abdominal Exam: normal bowel sounds, non tender, soft, GT site - Clean dry and intact Extremities: non-tender Cirilo Germain NP Jan 10, 2019 10:27
--- NOTE | 2019-01-10 11:03 | Diagnostic Imaging Report ---
APPROVED REPORT CPT Code: 92132 Present Symptoms Shortness of breath BILATERAL: Imaging reveals a patent deep venous system bilaterally. There is no evidence of thrombus within the common femoral, superficial femoral, popliteal or tibial segments. The greater saphenous veins are within normal limits. Doppler indicates normal spontaneous flow within these segments.
[2019-01-10 12:00] VITALS: BP 119/76
--- NOTE | 2019-01-10 12:47 | Nephrology Progress Note ---
Assessment/Plan Problem List: (1) Hypercalcemia (2) ATN (acute tubular necrosis) (3) Anemia (4) Feeding by G-tube (5) Acute and chronic respiratory failure (6) UTI (urinary tract infection) (7) Hyponatremia Assessment in MIKE - Glucose better controlled Periodic high K Patient have mainly Pre Renal Azotemia with possible underlying CKD- Low Na partly depletional, partly due to Hyperglycemia RESOLVED Other conditions as outlined: (1) Acute and chronic respiratory failure ([id number]) (2) Sepsis (3) Malnutrition and HypoAlbuminemia (4) UTI (urinary tract infection) (5) Anemia (6) Diabetes mellitus, type II (7) Colostomy care (8) Cerebral vascular disease (9) Decubitus ulcer of sacral region, stage 2 (10) Feeding by G-tube (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 Plan K & Phos supplement as needed Levemir and adjust dose Kayexelate for high K as needed Transfuse as needed Stop Digoxin stop Atenolol Stop Cardiazem Pressors as needed Albumin bolus as needed AREDIA 90 mg for HYPERCALCEMIA on 12/23 - Fu Calcium level will redose On Starlix feeding to glucerna Keep electrolytes in check Keep BS and BP in check per consultants Subjective ROS Limited/Unobtainable: Yes Objective Objective Last 24 Hour Vital Signs Date Time Temp Pulse Resp B/P (MAP) Pulse Ox O2 Delivery O2 Flow Rate FiO2 01/10/19 12:00 Mechanical Ventilator 01/10/19 12:00 98.7 110 26 119/76 (90) 97 01/10/19 11:23 106 24 30 01/10/19 08:41 102 21 30 01/10/19 08:00 109 01/10/19 08:00 98.7 98 28 111/76 (88) 98 01/10/19 08:00 30 01/10/19 08:00 Mechanical Ventilator 01/10/19 07:11 100 20 30 01/10/19 04:48 99 22 30 01/10/19 04:00 97.5 99 24 103/72 (82) 98 01/10/19 04:00 30 01/10/19 04:00 Mechanical Ventilator 01/10/19 03:26 100 01/10/19 03:05 101 21 30 01/10/19 00:31 100 26 30 01/10/19 00:00 Mechanical Ventilator 01/10/19 00:00 30 01/10/19 00:00 97.9 101 22 100/64 (76) 92 01/09/19 23:36 102 01/09/19 23:10 102 20 30 01/09/19 21:15 104 23 30 01/09/19 20:13 101 25 30 01/09/19 20:00 Mechanical Ventilator 01/09/19 20:00 30 01/09/19 20:00 97.2 103 21 102/65 (77) 94 01/09/19 19:26 103 01/09/19 17:15 102 23 30 01/09/19 16:00 97.9 104 22 110/67 (81) 100 01/09/19 16:00 Mechanical Ventilator 01/09/19 16:00 108 01/09/19 16:00 30 01/09/19 15:10 109 28 30 01/09/19 13:05 106 21 30 Intake and Output 01/09/19 01/10/19 19:00 07:00 Intake Total 1210 ml 1164 ml Output Total 1150 ml 800 ml Balance 60 ml 364 ml Intake Free Water 450 ml 300 ml IV Total 220 ml 224 ml Tube Feeding 540 ml 540 ml Other 100 ml Output Urine Total 1000 ml 550 ml Stool Total 150 ml 250 ml Laboratory Tests 01/09/19 16:35: Amikacin Level Trough < 2.5L 01/10/19 03:10: White Blood Count 8.0, Red Blood Count 2.43L, Hemoglobin 7.4L, Hematocrit 22.9L , Mean Corpuscular Volume 94, Mean Corpuscular Hemoglobin 30.4, Mean Corpuscular Hemoglobin Concent 32.3, Red Cell Distribution Width 18.2H, Platelet Count 323, Mean Platelet Volume 7.9, Neutrophils (%) (Auto) , Lymphocytes (%) (Auto) , Monocytes (%) (Auto) , Eosinophils (%) (Auto) , Basophils (%) (Auto) , Differential Total Cells Counted 100, Neutrophils % ( Manual) 60, Lymphocytes % (Manual) 24, Monocytes % (Manual) 5, Eosinophils % ( Manual) 8H, Basophils % (Manual) 3H, Band Neutrophils 0, Platelet Estimate Adequate, Platelet Morphology Normal, Hypochromasia 3+, Anisocytosis 2+, Spherocytes 1+, Amylase Level 151H, Lipase 819H Height (Feet): 5 Height (Inches): 8.00 Weight (Pounds): 144 General Appearance: no apparent distress Cardiovascular: tachycardia Respiratory/Chest: decreased breath sounds Abdomen: distended Objective no change Migue Moreland MD Jan 10, 2019 12:47
--- NOTE | 2019-01-10 13:06 | Cardiology Progress Note ---
Assessment/Plan Assessment/Plan 1. Supraventricular tachycardia. recurrent 12/09 and 12/10 2. Renal insufficiency. 3. Hyponatremia. 4. 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 6. History of bowel resection. 7. History of CVA. 8. Chronic tracheostomy. 9. Diabetes mellitus. 10 pancreatitis 11. anemai off Cardizem via gtube and dig and atenolol last psvt was on 12/31 short lived watch for recurrence tele reviewed heart rate stable cxr noted venous duplex neg Subjective ROS Limited/Unobtainable: Yes Subjective on the vent Objective Last 24 Hour Vital Signs Date Time Temp Pulse Resp B/P (MAP) Pulse Ox O2 Delivery O2 Flow Rate FiO2 01/10/19 12:00 Mechanical Ventilator 01/10/19 12:00 98.7 110 26 119/76 (90) 97 01/10/19 12:00 30 01/10/19 11:23 106 24 30 01/10/19 08:41 102 21 30 01/10/19 08:00 109 01/10/19 08:00 98.7 98 28 111/76 (88) 98 01/10/19 08:00 30 01/10/19 08:00 Mechanical Ventilator 01/10/19 07:11 100 20 30 01/10/19 04:48 99 22 30 01/10/19 04:00 97.5 99 24 103/72 (82) 98 01/10/19 04:00 30 01/10/19 04:00 Mechanical Ventilator 01/10/19 03:26 100 01/10/19 03:05 101 21 30 01/10/19 00:31 100 26 30 01/10/19 00:00 Mechanical Ventilator 01/10/19 00:00 30 01/10/19 00:00 97.9 101 22 100/64 (76) 92 01/09/19 23:36 102 01/09/19 23:10 102 20 30 01/09/19 21:15 104 23 30 01/09/19 20:13 101 25 30 01/09/19 20:00 Mechanical Ventilator 01/09/19 20:00 30 01/09/19 20:00 97.2 103 21 102/65 (77) 94 01/09/19 19:26 103 01/09/19 17:15 102 23 30 01/09/19 16:00 97.9 104 22 110/67 (81) 100 01/09/19 16:00 Mechanical Ventilator 01/09/19 16:00 108 01/09/19 16:00 30 01/09/19 15:10 109 28 30 General Appearance: no apparent distress, on vent, patient on isolation Extremities: no swelling Intake and Output 01/09/19 01/10/19 19:00 07:00 Intake Total 1210 ml 1164 ml Output Total 1150 ml 800 ml Balance 60 ml 364 ml Intake Free Water 450 ml 300 ml IV Total 220 ml 224 ml Tube Feeding 540 ml 540 ml Other 100 ml Output Urine Total 1000 ml 550 ml Stool Total 150 ml 250 ml Laboratory Tests Test 01/09/19 16:35 01/10/19 03:10 Amikacin Level Trough < 2.5 ug/mL (4.0-8.0) L White Blood Count 8.0 K/UL (4.8-10.8) Red Blood Count 2.43 M/UL (4.70-6.10) L Hemoglobin 7.4 G/DL (14.2-18.0) L Hematocrit 22.9 % (42.0-52.0) L Mean Corpuscular Volume 94 FL (80-99) Mean Corpuscular Hemoglobin 30.4 PG (27.0-31.0) Mean Corpuscular Hemoglobin Concent 32.3 G/DL (32.0-36.0) Red Cell Distribution Width 18.2 % (11.6-14.8) H Platelet Count 323 K/UL (150-450) Mean Platelet Volume 7.9 FL (6.5-10.1) Neutrophils (%) (Auto) % (45.0-75.0) Lymphocytes (%) (Auto) % (20.0-45.0) Monocytes (%) (Auto) % (1.0-10.0) Eosinophils (%) (Auto) % (0.0-3.0) Basophils (%) (Auto) % (0.0-2.0) Differential Total Cells Counted 100 Neutrophils % (Manual) 60 % (45-75) Lymphocytes % (Manual) 24 % (20-45) Monocytes % (Manual) 5 % (1-10) Eosinophils % (Manual) 8 % (0-3) H Basophils % (Manual) 3 % (0-2) H Band Neutrophils 0 % (0-8) Platelet Estimate Adequate Platelet Morphology Normal Hypochromasia 3+ Anisocytosis 2+ Spherocytes 1+ Amylase Level 151 U/L (25-115) H Lipase 819 U/L (73-393) H Donny Kelley MD Jan 10, 2019 13:06
[2019-01-10 16:00] VITALS: BP 128/83
--- NOTE | 2019-01-10 18:25 | Surgery Progress Note ---
Surgery Progress Note Subjective Additional Comments Afebrile, labs noted, leukocytosis okay, tachycardic, dressing changes going well. Objective Last 24 Hour Vital Signs Date Time Temp Pulse Resp B/P (MAP) Pulse Ox O2 Delivery O2 Flow Rate FiO2 01/10/19 16:55 108 22 30 01/10/19 16:00 30 01/10/19 16:00 110 01/10/19 16:00 Mechanical Ventilator 01/10/19 16:00 98.6 108 24 128/83 (98) 97 01/10/19 14:42 110 21 30 01/10/19 13:10 108 22 30 01/10/19 12:00 Mechanical Ventilator 01/10/19 12:00 98.7 110 26 119/76 (90) 97 01/10/19 12:00 110 01/10/19 12:00 30 01/10/19 11:23 106 24 30 01/10/19 08:41 102 21 30 01/10/19 08:00 109 01/10/19 08:00 98.7 98 28 111/76 (88) 98 01/10/19 08:00 30 01/10/19 08:00 Mechanical Ventilator 01/10/19 07:11 100 20 30 01/10/19 04:48 99 22 30 01/10/19 04:00 97.5 99 24 103/72 (82) 98 01/10/19 04:00 30 01/10/19 04:00 Mechanical Ventilator 01/10/19 03:26 100 01/10/19 03:05 101 21 30 01/10/19 00:31 100 26 30 01/10/19 00:00 Mechanical Ventilator 01/10/19 00:00 30 01/10/19 00:00 97.9 101 22 100/64 (76) 92 01/09/19 23:36 102 01/09/19 23:10 102 20 30 01/09/19 21:15 104 23 30 01/09/19 20:13 101 25 30 01/09/19 20:00 Mechanical Ventilator 01/09/19 20:00 30 01/09/19 20:00 97.2 103 21 102/65 (77) 94 01/09/19 19:26 103 I&O Intake and Output 01/09/19 01/10/19 19:00 07:00 Intake Total 1210 ml 1164 ml Output Total 1150 ml 800 ml Balance 60 ml 364 ml Intake Free Water 450 ml 300 ml IV Total 220 ml 224 ml Tube Feeding 540 ml 540 ml Other 100 ml Output Urine Total 1000 ml 550 ml Stool Total 150 ml 250 ml Dressing: saturated Wound: other Drains: other Cardiovascular: RSR, other Respiratory: clear, decreased breath sounds Abdomen: soft, present bowel sounds Extremities: no cyanosis Laboratory Tests Test 01/10/19 03:10 White Blood Count 8.0 K/UL (4.8-10.8) Red Blood Count 2.43 M/UL (4.70-6.10) L Hemoglobin 7.4 G/DL (14.2-18.0) L Hematocrit 22.9 % (42.0-52.0) L Mean Corpuscular Volume 94 FL (80-99) Mean Corpuscular Hemoglobin 30.4 PG (27.0-31.0) Mean Corpuscular Hemoglobin Concent 32.3 G/DL (32.0-36.0) Red Cell Distribution Width 18.2 % (11.6-14.8) H Platelet Count 323 K/UL (150-450) Mean Platelet Volume 7.9 FL (6.5-10.1) Neutrophils (%) (Auto) % (45.0-75.0) Lymphocytes (%) (Auto) % (20.0-45.0) Monocytes (%) (Auto) % (1.0-10.0) Eosinophils (%) (Auto) % (0.0-3.0) Basophils (%) (Auto) % (0.0-2.0) Differential Total Cells Counted 100 Neutrophils % (Manual) 60 % (45-75) Lymphocytes % (Manual) 24 % (20-45) Monocytes % (Manual) 5 % (1-10) Eosinophils % (Manual) 8 % (0-3) H Basophils % (Manual) 3 % (0-2) H Band Neutrophils 0 % (0-8) Platelet Estimate Adequate Platelet Morphology Normal Hypochromasia 3+ Anisocytosis 2+ Spherocytes 1+ Amylase Level 151 U/L (25-115) H Lipase 819 U/L (73-393) H Plan Problems: (1) Decubitus skin ulcer Assessment & Plan: Pt presented on admission with multiple pressure injuries and Skin erosion. Pt has trach and no evidence of skin breakdown noted under trach collar. Unstageable pressure injury noted to L earlobe. Stable dry brown eschar noted(L) 0.7cm x (W)0.5cm. Gross erythema with denudement and multiple scattered partial thickness wounds noted to buttocks and base of scrotum extending into both posterior upper thighs.Moderate amt sanguineous exudate noted upon removal of drsgs. 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 Moderate amt sanguineous exudate noted (L)3cm x (W)1cm x (D)7.4cm.Erythema periwound secondary to skin erosions. Partially opened DTPI L ischium .Base of wound purple,fluctuant with red borders.Open areas at base of this wound are beefy red in colour.Moderate amt sanguineous exudate noted.(L)7cm x (W)6.8cm. DTPI R ischium.Wound is fluctuant-purple in center with surrounding Maroon colour, and is partially opened with a small area of 5% that is necrotic.(L) 6.5cm x (W)5.5cm. Red skin erosion periwound. Partial thickness pressure injury L hip. Base of wound is moist -viable. Edges adherent and dry. Periwound without erythema or induration(L)1.2cm x (W)0.5cm. Elongate partial thickness wound posterior upper L thigh .Base of wound is moist -viable .Small amt sanguineous exudate noted. (+) maceration along borders. Erythema without induration or elevation in skin temp noted.(L)2cm x (W )9.4cm. DTPI noted to R heel .Base of injury is indurated and maroon in colour. Periwound is firm without erythema. (L)1.5cm x (W)1cm.R heel without evidence of skin breakdown. UPDATE with Full thickness pressure injury sacrum resolving. Less depth noted to tunnel, but base of wound obscured due to size and shape of wound (L)2cm x (W )0.9cm with tunneling at 12 by 3cm. Full thickness wound R ischium with 60% loose soft necrosis. 40% slough with additional necrosis along edges and periwound .No odor noted. (L)6cm x (W)6.3cm x (D)3.2cm undermining 9-12 by 3.1cm @11O'Clock. MASD with Gross erythema with skin erosion entire buttocks extending down into both ischial and both upper thighs including scrotum and bilat groin areas. Scattered satellite lesions with small amt bleeding from these areas. Small area of dry eschar noted to L buttocks (L)1.9cm x (W)2cm. Reabsorbed DTPI with stable dry brown eschar R heel (L)1.5cm x (W)2.5cm Periwound without erythema ,induration or fluctuance. Small dry scab noted to L ear without erythema periwound. No new skin concerns noted. Skin Erosions buttocks and scrotum resolving, less bleeding from satellite lesions noted today.During cleansing of buttocks gentle removal of soiled lose paste so as not to disrupt any fragile areas and reapplication of Triad paste applied liberally to entire buttocks and scrotum for protection. Adhesive denudement across lumbar area resolved. skin is dry and pink. Sacral ulcer cleansed with saline and loosely packed with Therahoney impregnated kerlix - less depth noted to sacral wound. R ischial wound beefy red with undermining .Approx 5% dry eschar that is adherent to edge of wound. Small amt sanguineus exudate noted. Wound cleansed with Saline. Loosely packed with Therahoney impregnated Kerlix. Bilat groin areas and suprapubic area red. Triad paste applied L ear eschar partially de-roofed. Approx 20% dry eschar noted. Trace amt Biofilm at base of wound otherwise wound is viable. No odor or exudate noted. Tx.Plan: Cleanse Sacrum with Saline. Loosely pack with Hydrogel impregnated Kerlix. Apply Triad Paste periwound. Cover with ABD pad. Daily and prn. Cleanse R and L ischial wounds with Saline. Apply Moisture Barrier Paste.Cover with abd pads Daily and prn. Apply Moisture Barrier to skin erosions on buttocks,scrotum, and posterior aspects of both thighs.Cover with ABD pad daily and prn. Cleanse wound L hip with Saline. Apply Moisture Barrier paste .Cover with Optifoam drsg Daily and prn. Cleanse wound posterior upper L thigh with saline .Apply Hydrogel. Cover with Optifoam drsg Daily and prn. Apply Cavilon Skin Barrier to L earlobe daily. Please monitor. Apply Cavilon Skin Barrier to L heel. Cover with Optifoam drsg. Change every 7 days and prn. Apply Cavilon Skin Barrier to R heel. Cover with Optifoam drsg .Change every 7 days and prn. Air fluidized mattress. Reposition every 2hours or as tolerated. Off-load heels with pillow. (2) Acute and chronic respiratory failure Assessment & Plan: cont with breathing treatments trach stable trach site clean will change dressings daily (3) Acute pancreatitis Assessment & Plan: Findings consistent with uncomplicated nonnecrotizing acute pancreatitis. No evidence of associated peripancreatic abscess Surgical changes as described, including right lower quadrant ileostomy, subtotal colectomy with Haroldo procedure. Wall thickening of the Haroldo pouch. This could indicate inflammation. However, this is also present on both of the prior 2 exams and may be baseline for this patient Evidence of mild anasarca, with edema of the subcutaneous fat. This is a new finding Chronic appearing decubitus changes of the bilateral ischia. Correlate with clinical findings Complete left lower lobe consolidation. This is similar to both of the prior CTs , and is likely a chronic finding. There is progressive chronic interstitial fibrotic change involving the right middle lobe. There is also right lower lobe granulomatous calcification Extensive pulmonary parenchymal opacities bilaterally may reflect acute inflammation/infection, edema, progressive chronic scarring, or combination of the above. These are considerably more extensive than on the prior study Trace bilateral pleural fluid New finding of nonobstructive right renal collecting system calculs 4 mm calculus within the bladder lumen. This may represent a bladder calculus, a calculus and left ureteral orifice, or recently passed stone. If either of the latter, no evidence of resultant hydronephrosis or hydroureter Suprapubic catheter. This is a new finding since the 2016 exams. Interim removal of previously demonstrated Bledsoe catheter Gastrostomy Left renal cysts. Subcentimeter low-attenuation right renal lesions, too small to characterize, most likely benign simple cysts. No further follow-up necessary elevated amylase/lipase related to lipids leukocytosis GNR Bacteremia transfused anemia Unfortunately patient not able to participate in exam and difficult to identify if clinically pancreatitis or just laboratory data. Recent CT with uncomplicated pancreatitis but enzymes still remain elevated. Patient tolerated tube feeds. Patient with gram-negative belle bacteremia likely from UTI. Patient remains febrile intermittently with worsening leukocytosis on IV antibiotics. -no acute surgical intervention planned -transfuse as per hematology -Abx as per ID -trend lip/[place] - recent finding based on CT given patient cannot given history or participate in exam. CT with uncomplicated pancreatitis. okay for diet / feeds for now. IV fluids Javier Ricardo Jan 10, 2019 18:25
--- NOTE | 2019-01-10 19:30 | NUR ---
NURSE NOTES: REPORT GIVEN TO BHARAT SCHILLING ACLS STAFF OF [facility] AND THEM PLACED A TELEPHONE CALL TO [facility] AND REPORT GIVEN TO CECIL SCHILLING IN CHARGE.PT LEFT THE HOSPITAL VIA AMBULANCE ON STABLE CONDITION.
[2019-01-10] MEDS ORDERED: NS 275ml ONE (19:34)
[2019-01-10] MEDS ORDERED: Tubing IV Secondary IV ONE (19:34)
[2019-01-10] MEDS ORDERED: Dyna-Hex 2% Top Sol 2oz TOPIC SCH (20:00)
--- NOTE | 2019-01-12 08:43 | Discharge Summary ---
Discharge Summary Discharge Summary _ DATE OF ADMISSION: 12/07/2018 DATE OF DISCHARGE: 01/10/2019 DISCHARGED BY: Dr. Hutchins REASON FOR ADMISSION: 73 years old male with past medical history of diabetes mellitus, hypertension, CVA, chronic respiratory failure, ventilator dependent with tracheostomy, dysphagia, G-tube, history of Guillain Murphy syndrome, quadriplegia, was sent to emergency room for evaluation due to abnormal labs/ elevated BUN and creatinine at the facility. Upon evaluation vital signs were stable. Laboratory workup revealed no leukocytosis, hemoglobin 11, hematocrit 29.1. Lactic acid 0.9 Sodium 122. BUN 161, creatinine 1.9. Glucose 489. Anion gap 16. No evidence of DKA. AST 115, ALT 77. Troponin - 0.017. CK 56. ProBNP 625. EKG revealed normal sinus rhythm, no acute ischemic changes. Albumin 2.1. Chest x-ray demonstrated small left pleural effusion, bilateral interstitial disease. Patietn was pancultured in ED and admitted for further management. Patient admitted to stepdown unit for further management CONSULTANTS: physician recruiter Dr. Kelley pulmonary Dr. Guerra ID specialist Dr. Brand GI specialist Dr. Jackson seo coordinator Dr. Moreland public relations manager/oncologist Dr. Kim surgery Dr. Ricardo [facility]rologist [facility] COURSE: Patient admitted to stepdown unit. Patient started on normal saline hydration and empiuric antibitoics. Ventilator support and tracheostomy care provided. Patient was follow-up with ABG and CXR. Ventilator settings titrated as needed. Pulmonary toilet provided as needed. Program Instructor closely followed. Follow-up chest x-ray revealed worsening airspace opacity possible edema versus pneumonitis with stable left pleural effusion Infectious disease specialist followed and directed antibiotic management. Patient demonstrated leukocytosis and intermittent fevers. Initial blood culture revealed growth of Proteus mirabilis. Urine culture revealed Proteus mirabilis and VRE. Repeated blood culture on 12/08 still showed growth of Proteus mirabilis. Blood culture on 12/12 showed 1 out of 4 Staphylococcus coag negative, probably contaminant as per ID specialist. Blood culture on 12/14 were negative. Sputum culture revealed Pseudomonas. CT of the abdomen and pelvis on 12/12 revealed complete left lower lobe consolidation. This was similar to both prior CTs, and was likely a chronic finding. Noted progressive chronic interstitial fibrotic change involving the right middle lobe. Extensive pulmonary parenchymal opacities bilaterally may reflect acute inflammation/infection, edema, progressive chronic scarring, or combination of the above. These were considerably more extensive than on the prior study. Patient was treated for pneumonia, UTI and bacteremia. Echocardiogram revealed preserved ejection fraction of 60-65% with no evidence of wall motion abnormality. No evidence of left ventricular hypertrophy. Right ventricular systolic pressure of 19. [employer] Structure Builder And Servicer closely followed. Lipid panel revealed elevated triglycerides over 400 , and stable total cholesterol and LDL, low HDL noted. Serial troponin negative. Patient noted to have recurrent supraventricular tachycardia. Patient was on beta-perla and digoxin. Cardizem was added.. Venous duplex bilateral lower extremity revealed no evidence of acute DVT. DVT prophylaxis provided. Meter Inspector followed. Patient likely had prerenal azotemia with possibly underlying chronic kidney disease. Hyponatremia was partially depletional, partially due to hyperglycemia and resolved. Renal parameters and electrolytes were closely monitored, electrolytes corrected as needed, and nephrotoxins were avoided. Patient received Aredia for hypercalcemia , calcium stabilized. Hypercalcemia was likely due to dehydration. Blood sugar was managed wit long-acting insulin, Starlix and sliding scale of short acting insulin was provided as needed. Blood sugar stabilized. Patient was on diabetic tube feeding. GI specialist followed. Patient initially with elevated LFT. Abdominal ultrasound revealed cholelithiasis, but no evidence of dilated bile ducts. No other acute or significant abnormality. Noted elevated lipase 1286 on 12/13. CT of the abdomen and pelvis revealed evidence of uncomplicated nonnecrotizing acute pancreatitis. No evidence of associated peripancreatic abscess. Lipid panel revealed elevated triglycerides. According to GI specialist , acute pancreatitis was secondary to triglyceridemia. Patient was placed on TriCor and Lopid. Lipase and amylase trending down. Hepatitis panel was negative. HIV test was nonreactive. LFT down to normal. Patient started on PPI. Strict aspiration/reflux precaution maintained. Tube feeding provided as per registered dietitian recommendation. Nutritional supplements implemented in plan of care as per registered dietitian recommendation to improve nutritional status . Patient noted to be hypotensive. All antihypertensive medications were stopped. Hemodynamic status was closely monitored. No pressors were needed. Albumin boluses were on board to provide as needed for blood pressure support. Patient continued to have leukocytosis and intermittent fevers in the setting of bacteremia and pancreatitis. Blood culture on 12/20 revealed growth of Enterococcus faecalis and MRSA. PICC line was discontinued , however culture of catheter tip revealed no evidence of growth. Echocardiogram was repeated on and revealed no evidence of vegetation. Blood culture on 12/23 on 12/29 were negative. Urine culture 12/26 revealed Meera albicans. Stool for C. difficile was negative. Blood culture on 12/30 were negative. Sacral decub culture on 12/30 revealed evidence of KPC , E coli ESBL and Proteus. Surgeon followed for sacral decubitus ulcer stage IV present on admission. CT of abdomen and pelvis revealed evidence of acute or acute on chronic osteomyelitis. Wound care provided as per surgeon recommendation. Continue wound care and IV antibiotics at the facility. Leukocytosis and fevers resolved. Complete IV antibiotic course at the facility, as recommended as per ID specialist, including total 6 weeks of treatment for osteomyelitis. According to ID specialist, patient had severe sepsis secondary to gram- negative bacteremia and pneumonia, status post treatment. Gram-negative bacteremia was likely from UTI and probably osteomyelitis. Of note, antibiotic management was challenging due to patient's multiple allergies including penicillin, vancomycin, and polymyxin B. Urologist seen patient for evaluation of suprapubic tube leakage. Patient had urinary retention with chronic suprapubic tube and probably neurogenic bladder. Old suprapubic tube was removed by urologist and replaced by a new suprapubic catheter with 20 Spanish gauge. New suprapubic catheter was functioning well. Stool for occult blood was positive x1 and negative x3. Hemoglobin and hematocrit were closely monitored with goal to keep hemoglobin above 7. Anemia workup was consistent with anemia of chronic disease. Elevated ferritin 1573 noted. Quartz Mounter /oncologist followed. Anemia of chronic disease was due to underlying chronic medical issue , and was multifactorial. No evidence of hemolysis. Patient undergone blood transfusion while in the hospital. Per public relations manager, Epogen or iron at this time were not indicated. Patient also initiated noted to have thrombocytopenia. Peripheral smear was ordered to evaluate for blasts or schistocytes , but it did not reveal any. Antibiotic and other medication were reviewed. Thrombocytopenia resolved. Prior to discharge platelet count up to normal - 323. CEA within normal limits.. CA-19-9 minimally elevated at 53. No further workup at this time, given multiple chronic comorbidities . Continue with conservative management. Patient clinically stabilized . Hemodynamic status stable, no fever, no leukocytosis. Patient was discharged via [facility] ambulance to [facility] for continuation of care. FINAL DIAGNOSES: Severe sepsis with gram-negative bacteremia due to UTI osteomyelitis Septic shock -resolved Pneumonia UTI Acute pancreatitis Acute or acute on chronic osteomyelitis of sacral decubitus ulcer stage 4, present on admission Acute and chronic/ventilator dependent respiratory failure Acute renal failure/acute tubular necrosis - mainly prerenal azotemia with possible underlying chronic kidney disease -resolved Acute hyponatremia, partially depletional , partially due to hyperglycemia - resolved Hyperglycemia associated with diabetes mellitus Supraventricular tachycardia , recurrent-improved Tracheostomy status History of Guillain Murphy syndrome History of CVA Acute pancreatitis due to triglyceridemia-resolved Dysphagia , feeding by G-tube Hypercalcemia, likely due to dehydration- resolved Cerebral vascular disease Electrolyte abnormality Anemia of chronic disease Urinary retention with chronic suprapubic tube Suprapubic tube leakage Probable neurogenic bladder DISCHARGE MEDICATIONS: List of medication was sent to accepting facility. DISCHARGE INSTRUCTIONS: Patient was discharged to the care home facility. Follow up with medical doctor at the facility. I have been assigned to dictate discharge summary for this account. I was not involved in the patient's management. Bria So NP Jan 12, 2019 08:43
== END 2019-01-10 19:35 | DRG 870 ==
LOC: EDBD 13:14 → EMR 13:47 → 2W 14:10 → EDBEDREQ 14:58 → ICU 12-25 10:54 → 2W 12-28 04:50
PROC: 5A1955Z Respiratory Ventilation, Greater than 96 Consecutive Hours (ICD-10-PCS; principal; 2018-12-07)
PROC: B548ZZA Ultrasonography of Superior Vena Cava, Guidance (ICD-10-PCS; 2018-12-12)
PROC: 02HV33Z Insertion of Infusion Device into Superior Vena Cava, Percutaneous Approach (ICD-10-PCS; 2018-12-12)
PROC: 06HN33Z Insertion of Infusion Device into Left Femoral Vein, Percutaneous Approach (ICD-10-PCS; 2018-12-25)
PROC: 05H433Z Insertion of Infusion Device into Left Innominate Vein, Percutaneous Approach (ICD-10-PCS; 2018-12-27)
PROC: B54NZZA Ultrasonography of Left Upper Extremity Veins, Guidance (ICD-10-PCS; 2018-12-27)
DX: A41.50 Gram-negative sepsis, unspecified (principal); L89.154 Pressure ulcer of sacral region, stage 4; J96.20 Acute and chronic respiratory failure, unspecified whether with hypoxia or hypercapnia; G82.50 Quadriplegia, unspecified; R65.21 Severe sepsis with septic shock; N17.0 Acute kidney failure with tubular necrosis; K85.90 Acute pancreatitis without necrosis or infection, unspecified; J18.9 Pneumonia, unspecified organism; E87.1 Hypo-osmolality and hyponatremia; Z99.11 Dependence on respirator [ventilator] status; G61.0 Guillain-Barre syndrome; N39.0 Urinary tract infection, site not specified; E46 Unspecified protein-calorie malnutrition; I47.1 Supraventricular tachycardia; M86.18 Other acute osteomyelitis, other site; Z93.0 Tracheostomy status; Z93.1 Gastrostomy status; R13.10 Dysphagia, unspecified; Z86.73 Personal history of transient ischemic attack (TIA), and cerebral infarction without residual deficits; I12.9 Hypertensive chronic kidney disease with stage 1 through stage 4 chronic kidney disease, or unspecified chronic kidney disease; E11.22 Type 2 diabetes mellitus with diabetic chronic kidney disease; E11.65 Type 2 diabetes mellitus with hyperglycemia; N18.9 Chronic kidney disease, unspecified; Z93.3 Colostomy status; Z68.21 Body mass index [BMI] 21.0-21.9, adult; D64.9 Anemia, unspecified; D69.6 Thrombocytopenia, unspecified; R33.9 Retention of urine, unspecified; N31.9 Neuromuscular dysfunction of bladder, unspecified; R31.9 Hematuria, unspecified; R80.9 Proteinuria, unspecified; N50.89 Other specified disorders of the male genital organs; N43.3 Hydrocele, unspecified; E83.52 Hypercalcemia; E86.0 Dehydration
CPT/HCPCS: 36415; 36569; 36600; 71045; 74176; 74177; 76700; 76937; 80048; 80053; 80061; 80076; 80150; 80162; 81001; 81003; 82043; 82140; 82150; 82270; 82378; 82533; 82550; 82553; 82570; 82607; 82728; 82746; 82803; 82962; 82977; 83036; 83540; 83550; 83605; 83690; 83735; 83880; 83970; 84100; 84132; 84133; 84300; 84443; 84478; 84484; 84550; 85007; 85025; 85610; 85651; 85730; 86140; 86703; 86705; 86709; 86803; 86850; 86900; 86901; 86920; 87040; 87070; 87081; 87086; 87181; 87205; 87324; 87340; 89050; 93005; 93306; 93970; 94002; 94003; 94640; 94664; 96360; 96361; 99285; C9399; J1815; J2405; J2430; S5561